=== PATIENT | male | born 1955 | race Caucasian/White ===

== ENCOUNTER 2016-10-17 05:09 | Inpatient (IN) | payer OTHER ==
[2016-10-17] VITALS (10 sets, daily range): BP systolic 139–162; BP diastolic 71–87; PULSE 75–80; RESP 16–19; TEMP 97.9; Ht 167.6 cm; Wt 90.4 kg
[~2016-10-17] VITALS: Ht 167.6 cm; Wt 90.4 kg
[~2016-10-17 05:09] MED LIST: ASPI81TA3 PO; ATOR20TA65 PO; BENA40TA54 PO; GABA600T PO; HC30CR25 TOP; HYDR-902 PO; INSU100C3 SQ; LANT3I SC; METF-406 PO; METO-448 PO; PRED20TA PO
[2016-10-17] MEDS ORDERED: morphine 4 MG/ML VIAL IV STA (05:24)
[2016-10-17] MEDS ORDERED: SOD CHLORIDE 0.9% 500 ML IV STA (05:24)
[2016-10-17] MEDS ORDERED: ONDANSETRON 4 MG INJ IV STA (05:24)
--- NOTE | 2016-10-17 05:53 | RADRPT ---
PROCEDURE: XR Chest. CLINICAL INDICATION: Abdominal pain TECHNIQUE: A single AP view of the chest was obtained. COMPARISON: Chest x-ray dated 02/16/2016 FINDINGS: Lung volumes are low with compressive changes and vascular crowding. No focal airspace opacity, pleu ral effusion or pneumothorax is seen. The cardiomediastinal silhouette is on the enlarged. Calcifi cations are seen within the aortic arch. The osseous structures demonstrate a chronic Hill-Sachs de formity of the left humerus. IMPRESSION: 1. Prominent pulmonary vascular markings, at least partially related to low lung volumes. Mild pul monary vascular congestion is not excluded. Overall, no significant interval change given respirato ry variation. 2. Mild cardiomegaly and aortic atherosclerosis. RPTAT: HH .Alicia Garcia MD, MD Date Time Electronically viewed and signed by .Alicia Garcia MD, on 10/17/2016 05:53 .G/
[2016-10-17 06:16] LABS: ADD SCAN DIFF NO
[2016-10-17] MEDS ORDERED: NITROGLYCERIN 2% 1 GM OINT PKT TD STA (06:21)
[2016-10-17] MEDS ORDERED: ASPIRIN 81 MG TAB PO STA (06:21)
[2016-10-17 06:25] LABS: BASOPHIL # 0.1 10^3/ul (0.0-0.1); BASOPHILS % 0.8 % (0.0-2.0); EOSINOPHILS # 0.1 10^3/ul (0.0-0.5); EOSINOPHILS % 1.2 % (0.0-7.0); HEMATOCRIT 44.5 % (42.0-52.0); HEMOGLOBIN 14.9 g/dl (14.0-18.0); LYMPHOCYTES # 2.2 10^3/ul (0.8-2.9); LYMPHOCYTES % 28.5 % (15.0-51.0); MEAN CORPUSCULAR HEMOGLOBIN 31.2 pg (29.0-33.0); MEAN CORPUSCULAR HGB CONC 33.5 g/dl (32.0-37.0); MEAN CORPUSCULAR VOLUME 93.3 fl (82.0-101.0); MEAN PLATELET VOLUME 11.2 fl (7.4-10.4); MONOCYTE # 0.6 10^3/ul (0.3-0.9); NEUTROPHIL # 4.9 10^3/ul (1.6-7.5); NEUTROPHILS % 62.1 % (39.0-77.0); PLATELET COUNT 221 10^3/UL (140-415); RED BLOOD COUNT 4.77 10^6/ul (4.70-6.10); RED CELL DISTRIBUTION WIDTH 12.3 % (11.5-14.5); WHITE BLOOD COUNT 7.8 10^3/ul (4.8-10.8)
[2016-10-17 06:28] LABS: ALBUMIN 3.7 g/dl (3.3-4.9); CHLORIDE 104 mmol/L (97-110)
[2016-10-17 06:29] LABS: SODIUM 142 mmol/L (135-144)
[2016-10-17] MEDS ORDERED: NITROGLYCERIN (SL) 0.4 MG TAB SL PRN ×2 (06:30→11:00)
[2016-10-17 06:31] LABS: ALBUMIN/GLOBULIN RATIO 0.97; ALKALINE PHOSPHATASE 93 IU/L (42-121); ANION GAP 15 (8-16); ASPARTATE AMINO TRANSFERASE 23 IU/L (15-46); BILIRUBIN,INDIRECT 0.2 mg/dl (0-1.1); BILIRUBIN,TOTAL 0.2 mg/dl (0.2-1.3); CARBON DIOXIDE 27 mmol/L (21-31); CREATININE 0.92 mg/dl (0.61-1.24); TOTAL PROTEIN 7.5 g/dl (6.1-8.1)
[2016-10-17 06:32] LABS: ALANINE AMINOTRANSFERASE 35 IU/L (13-69); BLOOD UREA NITROGEN 23 mg/dl (7-20); CALCIUM 9.5 mg/dl (8.4-10.2); GLUCOSE 145 mg/dl (70-220)
--- NOTE | 2016-10-17 06:37 | RADRPT ---
PROCEDURE: CT ABDOMEN/PELVIS WITHOUT CONTRAST CLINICAL INDICATION: 60-year-old male with abdominal pain. TECHNIQUE: The study was performed utilizing a GE Sococopeed VCT 64-slice CT scanner. Direct axia l sections were obtained through the abdomen and pelvis without the use of intravenous contrast mate rial. Sagittal and coronal reformations were obtained. Automated exposure control and iterative luis a nstruction techniques were utilized for this examination. [facility] CTD/vol = 15.0 mGy; Total Exam DLP = 996.4 mGy-cm. COMPARISON: None. FINDINGS: Cardiomegaly is noted. Dense coronary artery calcifications are visualized. There is no evidence f or significant pleural effusion. The liver has a normal size and contour. There is a small punctat e peripheral right hepatic 3 mm calcific density on axial image 3-48. No intrahepatic nor extrahepat ic biliary ductal dilatation is seen. The gallbladder demonstrates no wall thickening nor pericholec ystic fluid. No biliary stones are evident. The pancreas is without areas of abnormal attenuation. The spleen is identified and has a normal size without abnormal density. The adrenal glands are unre markable. The kidneys have a lobular appearance bilaterally but without focal areas of abnormal dens ity. No hydroureteronephrosis nor nephroureterolithiasis is evident. The urinary bladder contains ur ine. There is a small umbilical hernia with an opening of 15 x 16 mm containing fat. There is mild r etained stool throughout the colon without gross bowel obstruction. The appendix is visualized and is without abnormal thickening or surrounding inflammatory reaction. There is no significant pelvic free fluid. There are minimal bilateral inguinal hernias containing fat. The aortoiliac vessels are diffusely calcified but without aneurysmal dilatation. There are bilateral L5 pars interarticularis defects. There is minimal anterolisthesis of L5 on S1 with mild diffuse disk bulge resulting in mo derate right and mild left foraminal stenosis. IMPRESSION: 1. Cardiomegaly with extensive coronary artery calcifications. 2. No CT evidence for obstructive uropathy or renal calculi. 3. Small umbilical hernia containing fat. 4. Mild retained stool without obstruction. 5. No CT evidence for appendicitis. 6. Minimal bilateral inguinal hernias containing fat. 7. Minimal L5-S1 spondylolisthesis. .Truong Reich MD, MD Date Time Electronically viewed and signed by .Truong Reich MD, MD on 10/17/2016 06:37 .M/
[2016-10-17 07:02] LABS: TROPONIN-I < 0.012 ng/ml (0.00-0.12)
[2016-10-17] MEDS ORDERED: ONDANSETRON 4 MG INJ IV PRN ×2 (08:00→11:00)
[2016-10-17] MEDS ORDERED: ACETAMINOPHEN 325 MG TAB PO PRN ×2 (08:00→11:00)
--- NOTE | 2016-10-17 08:48 | ERA ---
ER Documentation Chief Complaint Date/Time DATE: 10/17/16 TIME: 08:46 Chief Complaint CP RADIATING TO LEFT SIDE SHOULDER AND FLANK X 3 DAYS +SOB HPI Patient is a 60-year-old male with coronary disease, hypertension, and diabetes who presents with chest pain. He has left-sided chest pain and back pain over the past 3 days. The pain comes and goes and is sharp in nature. He has had no treatment as of yet. Upon review of old medical records the patient has multiple visits to the ER for various complaints. ROS All systems reviewed and are negative except as per history of present illness. Medications Home Meds Active Scripts Metoprolol Tartrate* (Lopressor*) 25 Mg Tab, 25 MG PO BID for 30 Days, #30 TAB 2 Refills Prov:WISAM QUEEN MD 08/14/16 Atorvastatin Calcium (Atorvastatin Calcium) 20 Mg Tablet, 20 MG PO HS for 30 Days, #30 TAB 1 Refill Prov:WISAM QUEEN MD 08/14/16 Prednisone* (Prednisone*) 20 Mg Tab, 60 MG PO DAILY for 5 Days, TAB Prov:RYLAN NOBLE DO 06/05/16 Gabapentin* (Neurontin*) 600 Mg Tablet, 600 MG PO BID, #60 TAB Prov:RYLAN NOBLE DO 06/05/16 Hydrocodone/Acetaminophen ([place] 10-325 Tablet) 1 Each Tablet, 1 TAB PO Q6H Y for PAIN, #20 TAB Prov:RYLAN NOBLE DO 06/05/16 Reported Medications Insulin Aspart (Novolog) 100 Unit/1 Ml Cartridge, 10 UNIT SQ BEFORE BREAKFAST 06/05/16 Benazepril Hcl* (Lotensin*) 40 Mg Tablet, 40 MG PO DAILY 12/16/13 Aspirin (Aspirin) 81 Mg Chew, 81 MG PO DAILY 12/16/13 Hydrocortisone* Topical (Hydrocortisone* Topical) 1 Applic Cr, 28.35 APPLIC TOP BID 12/16/13 Metformin Hcl* (Metformin Hcl* ER) 1,000 Mg Tab.er.24, 1000 MG PO BID 12/16/13 Insulin Glargine* (Lantus*) 100 Unit/Ml Soln, 55 UNIT SC DAILY 12/16/13 Allergies Allergies: Coded Allergies: No Known Allergy (Unverified , 08/14/16) PMhx/Soc History of Surgery: No Anesthesia Reaction: No Hx Neurological Disorder: Yes (DIABETIC NEUROPATHY) Hx Respiratory Disorders: Yes (ASTHMA) Hx Cardiac Disorders: Yes (HTN,HIGH CHOL) Hx Psychiatric Problems: No Hx Miscellaneous Medical Probl: Yes (DM, morbid obesity, R foot ulcer. ) Hx Alcohol Use: Yes Hx Substance Use: No Hx Tobacco Use: No Smoking Status: Never smoker FmHx Family History: No coronary disease Physical Exam Vitals Vital Signs Date Time Temp Pulse Resp B/P Pulse Ox O2 Delivery O2 Flow Rate FiO2 10/17/16 08:44 97.9 82 148/84 98 2.0 10/17/16 08:00 97.6 82 18 123/83 Nasal Cannula 2.0 10/17/16 07:43 81 18 153/85 95 Nasal Cannula 2.0 10/17/16 07:30 77 17 143/85 98 10/17/16 06:58 80 19 156/86 100 Nasal Cannula 2.0 10/17/16 05:12 97.0 89 20 140/76 99 Physical Exam Const: No acute distress Head: Atraumatic Eyes: Normal Conjunctiva ENT: Normal External Ears, Nose and Mouth. Neck: Full range of motion..~ No meningismus. Resp: Clear to auscultation bilaterally Cardio: Regular rate and rhythm, no murmurs Abd: Soft, non tender, non distended. Normal bowel sounds Skin: No petechiae or rashes Back: No midline or flank tenderness Ext: No cyanosis, or edema Neur: Awake and alert Psych: Normal Mood and Affect Result Diagram: 10/17/1652610/17/16526 Results 24 hrs Laboratory Tests Test 10/17/16 05:27 Alanine Aminotransferase (ALT/SGPT) 35IU/L Albumin 3.7g/dl Albumin/Globulin Ratio 0.97 Alkaline Phosphatase 93IU/L Anion Gap 15 Aspartate Amino Transf (AST/SGOT) 23IU/L Basophils # 0.110^3/ul Basophils % 0.8% Blood Urea Nitrogen 23mg/dl Calcium Level 9.5mg/dl Carbon Dioxide Level 27mmol/L Chloride Level 104mmol/L Creatinine 0.92mg/dl Direct Bilirubin 0.00mg/dl Eosinophils # 0.110^3/ul Eosinophils % 1.2% Globulin 3.80g/dl Glucose Level 145mg/dl Hematocrit 44.5% Hemoglobin 14.9g/dl Indirect Bilirubin 0.2mg/dl Lipase 211U/L Lymphocytes # 2.210^3/ul Lymphocytes % 28.5% Mean Corpuscular Hemoglobin 31.2pg Mean Corpuscular Hemoglobin Concent 33.5g/dl Mean Corpuscular Volume 93.3fl Mean Platelet Volume 11.2fl Monocytes # 0.610^3/ul Monocytes % 7.0% Neutrophils # 4.910^3/ul Neutrophils % 62.1% Nucleated Red Blood Cells # 0.010^3/ul Nucleated Red Blood Cells % 0.0/100WBC Platelet Count 53718^3/UL Potassium Level 4.0mmol/L Red Blood Count 4.7710^6/ul Red Cell Distribution Width 12.3% Sodium Level 142mmol/L Total Bilirubin 0.2mg/dl Total Protein 7.5g/dl Troponin I < 0.012ng/ml White Blood Count 7.810^3/ul Current Medications Medications (Trade) Dose Ordered Sig/Patricia Route PRN Reason Start Time Stop Time Status Last Admin Dose Admin Sodium Chloride (NS) 500 ml @ 500 mls/hr Q1H STAT IV 10/17/16 05:24 10/17/16 06:23 DC 10/17/16 05:39 Morphine Sulfate (morphine) 4 mg ONCE STAT IV 10/17/16 05:24 10/17/16 05:26 DC 10/17/16 05:38 Ondansetron HCl (Zofran Inj) 4 mg ONCE STAT IV 10/17/16 05:24 10/17/16 05:26 DC 10/17/16 05:38 Aspirin (Aspirin) 162 mg ONCE STAT PO 10/17/16 06:21 10/17/16 06:23 DC 10/17/16 06:57 Nitroglycerin (Nitroglycerin 2% Oint) 1 inch ONCE STAT TD 10/17/16 06:21 10/17/16 06:23 DC 10/17/16 06:58 Nitroglycerin (Nitroglycerin (Sl Tab) 0.4 Mg) 1 tab Q5M UP TO 3 DOSES PRN SL CHEST PAIN 10/17/16 06:30 10/17/16 07:39 Ondansetron HCl (Zofran Inj) 4 mg ER BRIDGE PRN IV NAUSEA AND/OR VOMITING 10/17/16 08:00 10/18/16 07:59 Acetaminophen (Tylenol Tab) 650 mg ER BRIDGE PRN PO MILD PAIN/FEVER 10/17/16 08:00 10/18/16 07:59 Procedures/MDM EKG #1 read by me: Rate/Rhythm: Regular rate and rhythm at a normal rate Intervals: Normal Impression: No evidence of ischemia or arrhythmia EKG #2 pending at this time PROCEDURE: XR Chest. CLINICAL INDICATION: Abdominal pain TECHNIQUE: A single AP view of the chest was obtained. COMPARISON: Chest x-ray dated 02/16/2016 FINDINGS: Lung volumes are low with compressive changes and vascular crowding. No focal airspace opacity, pleural effusion or pneumothorax is seen. The cardiomediastinal silhouette is on the enlarged. Calcifications are seen within the aortic arch. The osseous structures demonstrate a chronic Hill- Sachs deformity of the left humerus. IMPRESSION: 1. Prominent pulmonary vascular markings, at least partially related to low lung volumes. Mild pulmonary vascular congestion is not excluded. Overall, no significant interval change given respiratory variation. 2. Mild cardiomegaly and aortic atherosclerosis. RPTAT: HH .Alicia Garcia MD, MD Date Time Electronically viewed and signed by .Alicia Garcia MD, MD on 10/17/2016 05 :53 CT scan of the abdomen and pelvis negative for acute process per radiology. Patient is a 60-year-old male with multiple cardiac risk factors who presents with chest pain. I am concerned for possible acute coronary syndrome. The patient was given aspirin nitroglycerin. At this point I doubt pneumonia, pneumothorax, pulmonary embolism, or aortic dissection. I spoke with Dr. Adame from the panel team for admission to the panel team as the patient has preferred [employer] insurance. Departure Diagnosis: Primary Impression: Chest pain Qualified Code: R07.9 - Chest pain, unspecified type Condition: LETTY Ellison MD Oct 17, 2016 08:48
[2016-10-17] MEDS ORDERED: NACL 0.9% 3 ML SYG IV SCH (11:00)
[2016-10-17] MEDS ORDERED: hydrALAzine 20 MG INJ IV PRN (11:00)
[2016-10-17] MEDS ORDERED: LORAZEPAM 2 MG INJ IV PRN (11:00)
[2016-10-17] MEDS ORDERED: MAGNESIUM HYDROXIDE 30ML CUP PO PRN (11:00)
[2016-10-17] MEDS ORDERED: NA PHOSPHATE/BIPHOS 133 ML ENEMA PR PRN (11:00)
[2016-10-17] MEDS ORDERED: HYDROCODONE/APAP (5/325) TAB PO PRN (11:00)
[2016-10-17] MEDS ORDERED: ALBUTEROL/IPRATROPIUM (NEB) 3 ML AMP HHN PRN (11:00)
[2016-10-17] MEDS ORDERED: DOCUSATE SODIUM 100 MG CAP PO PRN (11:00)
[2016-10-17] MEDS: [UNRECOGNIZED DRUG - REMARK] XX SCH ×2 (11:30→19:30)
[2016-10-17] MEDS: [UNRECOGNIZED DRUG - REMARK] XX SCH ×2 (11:30→19:30)
[2016-10-17] MEDS: morphine 2 MG INJ IV PRN ×3 (11:49→23:38)
[2016-10-17] MEDS ORDERED: GLUCAGON 1 MG INJ IM PRN (12:00)
[2016-10-17] MEDS ORDERED: GLUCOSE GEL 15 GRAM TUBE PO PRN ×2 (12:00)
[2016-10-17] MEDS ORDERED: DEXTROSE 50% 50 ML SYRINGE IV PRN ×2 (12:00)
[2016-10-17] MEDS ORDERED: GLUCOSE GEL 15 GRAM TUBE BUCCAL PRN (12:00)
[2016-10-17 12:04] LABS: CREATINE KINASE 120 IU/L (23-200)
--- NOTE | 2016-10-17 12:10 | HP ---
DATE OF ADMISSION: 10/17/2016 CHIEF COMPLAINT: Chest pain. HISTORY OF PRESENT ILLNESS: A 60-year-old male with past medical history of type 2 diabetes on insu deepthi at home, asthma, high cholesterol, recent stroke 3 months ago, obesity, and hypertension who pre sents with chest pain that has been going on for the last 3 days. He says it has been radiating to his upper back. No dizziness or headaches or loss of consciousness. He has had some mild shortness of breath, but no fevers or chills, no nausea, vomiting, no upper or lower GI bleeding. He has had some mild constipation, but no diarrhea. No abdominal pain. The patient was last here at our [facility] from 08/13/2016 to 08/14/2016. He was treated for acute ischemic stroke at the time. He denies any prior history of any heart attack. PAST MEDICAL HISTORY: As stated above. ALLERGIES: NO KNOWN DRUG ALLERGIES. MEDICATIONS AT HOME: Include: 1. Atorvastatin 20 mg at bedtime. 2. Lotensin 40 mg daily. 3. Lopressor 25 mg b.i.d. 3. Aspirin 81 mg daily. 4. Gabapentin 600 mg b.i.d. 5. [place] 10/325 q.6h. p.r.n. 7. NovoLog 10 units subq before breakfast. 8. Lantus 55 units subq daily. 9. Metformin 1000 mg b.i.d. 10. Hydrocortisone topical 28.35 apply topical b.i.d. PAST SURGICAL HISTORY: He had a hernia repair in the past and diabetic foot ulcer surgery in the [facility]. FAMILY HISTORY: Noncontributory. SOCIAL HISTORY: Quit smoking 14 years ago and quit drinking 1 year ago. PHYSICAL EXAMINATION: VITAL SIGNS: Stable except his blood pressure is 123 to 162 systolic over 83 to 87 diastolic, satur ating 100% on room air. GENERAL: The patient is lying in bed, answering questions appropriately, in mild distress. HEENT: Pupils equal, round, reactive to light. Extraocular muscles intact. NECK: Supple, no thyromegaly. LUNGS: Clear to auscultation bilaterally. No wheezes. CARDIOVASCULAR: S1 and S2 heard. No rubs, murmurs or gallops. ABDOMEN: Slightly obese, but otherwise soft, nontender, nondistended. Normal bowel sounds. No lynn ound or guarding. MUSCULOSKELETAL: No lower extremity edema bilaterally. NEUROLOGIC: No focal deficits. LABORATORIES: CBC is completely normal. Comprehensive metabolic panel was normal. Troponin level x1 is negative. Lipase is normal. CT abdomen and pelvis was performed and shows cardiomegaly with extensive coronary artery calcificat ions, but no evidence for obstructive uropathy or renal calculi. Small umbilical hernia containing f at. Mild retained stool without obstruction. No appendicitis. Chest x-ray: Prominent pulmonary vascular markings at least partially related to low lung volumes. Pulmonary vascular congestion is not excluded. EKG showed normal sinus rhythm, no signs of any ST changes or T-wave inversions. ASSESSMENT AND PLAN: This is a 60-year-old male with prior history of stroke, diabetes type 2, and hypertension who presents with chest pain; rule out acute coronary syndrome. 1. Chest pain. Admit to the telemetry floor, put him on aspirin, morphine, oxygen, and nitrates. T rend his troponins, get a 2D echocardiogram as well. Check a TSH, A1c, lipid panel. Check an echoc ardiogram as well. 2. Type 2 diabetes. Continue his home insulin regimen. Check an A1c and put him on sliding scale insulin. 3. History of high cholesterol. Check his cholesterol and ____ put him back on his statin medicine s. 4. Essential hypertension. Blood pressure stable. Continue current cardiac medications. 5. History of asthma. DuoNeb p.r.n. ____ shortness of breath. 6. Gastrointestinal prophylaxis. H2 spencer. 7. Deep venous thrombosis prophylaxis. Heparin subcu. Dictated By: FOX HAND Conf#: [id number] DID#: [id number]
[2016-10-17 12:13] LABS: CK-MB 2.62 ng/ml (0.0-2.4); TROPONIN-I < 0.012 ng/ml (0.00-0.12)
[2016-10-17] MEDS: SOD CHLORIDE 0.45% 1,000 ML IV SCH (13:09)
[2016-10-17] MEDS: INSULIN ASPART [NOVOLOG] 3 ML PEN SC SCH ×4 (13:13→20:40)
[2016-10-17 13:56] LABS: ADD UMIC YES; URINE BILIRUBIN (Dip) NEGATIVE (NEGATIVE); URINE BLOOD (Dip) NEGATIVE (NEGATIVE); URINE COLOR LT. YELLOW (YELLOW); URINE KETONES (Dip) NEGATIVE (NEGATIVE); URINE LEUKOCYTE ESTERASE (Dip) NEGATIVE (NEGATIVE); URINE NITRITE (Dip) NEGATIVE (NEGATIVE); URINE TOTAL PROTEIN (Dip) 2+ (NEGATIVE); URINE UROBILINOGEN (Dip) 0.2 E.U./dL (0.1-1.0)
[2016-10-17 14:12] LABS: URINE RBCS 0-2 /HPF (0)
[2016-10-17 17:04] LABS: CREATINE KINASE 115 IU/L (23-200)
[2016-10-17 17:18] LABS: CK-MB 2.78 ng/ml (0.0-2.4); TROPONIN-I < 0.012 ng/ml (0.00-0.12)
[2016-10-17] MEDS: FAMOTIDINE 20 MG TAB PO SCH (20:37)
[2016-10-17] MEDS: GABAPENTIN 300 MG CAP PO SCH (20:37)
[2016-10-17] MEDS: METOPROLOL 25 MG TAB PO SCH (20:38)
[2016-10-17] MEDS: HEPARIN 5,000 UNIT/0.5 ML SYG SC SCH (20:39)
[2016-10-17] MEDS ORDERED: ATORVASTATIN 20 MG TAB PO SCH (21:00)
[2016-10-17] MEDS ORDERED: HYDROCORTISONE 2.5% 20 GM CR TOP SCH (21:00)
[2016-10-18 00:45] VITALS: PULSE 73
[2016-10-18] MEDS ORDERED: ACCUCHECK XX SCH (02:00)
[2016-10-18] MEDS: SOD CHLORIDE 0.45% 1,000 ML IV SCH ×2 (02:03→13:22)
[2016-10-18] MEDS: [UNRECOGNIZED DRUG - REMARK] XX SCH (03:30)
[2016-10-18] MEDS: [UNRECOGNIZED DRUG - REMARK] XX SCH ×2 (03:30→11:27)
[2016-10-18 04:06] VITALS: BP 139/74; PULSE 75; RESP 18
[2016-10-18] MEDS ORDERED: INSULIN ASPART 10 UNIT SQ SCH (07:00)
[2016-10-18 07:26] VITALS: BP 134/65; RESP 18
[2016-10-18 07:32] LABS: ADD SCAN DIFF NO
[2016-10-18 07:40] LABS: BASOPHIL # 0.1 10^3/ul (0.0-0.1); BASOPHILS % 0.9 % (0.0-2.0); EOSINOPHILS # 0.1 10^3/ul (0.0-0.5); EOSINOPHILS % 1.2 % (0.0-7.0); HEMATOCRIT 44.3 % (42.0-52.0); HEMOGLOBIN 14.8 g/dl (14.0-18.0); LYMPHOCYTES # 1.7 10^3/ul (0.8-2.9); LYMPHOCYTES % 20.4 % (15.0-51.0); MEAN CORPUSCULAR HEMOGLOBIN 31.2 pg (29.0-33.0); MEAN CORPUSCULAR HGB CONC 33.4 g/dl (32.0-37.0); MEAN CORPUSCULAR VOLUME 93.5 fl (82.0-101.0); MEAN PLATELET VOLUME 11.2 fl (7.4-10.4); MONOCYTE # 0.6 10^3/ul (0.3-0.9); MONOCYTES % 7.7 % (0.0-11.0); NEUTROPHIL # 5.6 10^3/ul (1.6-7.5); NEUTROPHILS % 69.6 % (39.0-77.0); PLATELET COUNT 208 10^3/UL (140-415); RED BLOOD COUNT 4.74 10^6/ul (4.70-6.10); RED CELL DISTRIBUTION WIDTH 12.1 % (11.5-14.5); WHITE BLOOD COUNT 8.1 10^3/ul (4.8-10.8)
[2016-10-18 07:54] LABS: POTASSIUM 4.3 mmol/L (3.5-5.1)
[2016-10-18 07:57] LABS: CREATININE 0.91 mg/dl (0.61-1.24)
[2016-10-18] MEDS: INSULIN ASPART [NOVOLOG] 3 ML PEN SC SCH ×3 (07:57→12:23)
[2016-10-18 07:58] LABS: CALCIUM 8.5 mg/dl (8.4-10.2); MAGNESIUM 1.6 mg/dl (1.7-2.5); PHOSPHORUS 3.6 mg/dl (2.5-4.9)
[2016-10-18] MEDS: morphine 2 MG INJ IV PRN (07:59)
[2016-10-18] MEDS ORDERED: INSULIN GLARGINE [LANtus] 3 ML PEN SC SCH (08:00)
[2016-10-18] MEDS: GABAPENTIN 300 MG CAP PO SCH (08:01)
[2016-10-18] MEDS: METOPROLOL 25 MG TAB PO SCH (08:01)
[2016-10-18] MEDS: FAMOTIDINE 20 MG TAB PO SCH (08:01)
[2016-10-18] MEDS: HEPARIN 5,000 UNIT/0.5 ML SYG SC SCH (08:03)
[2016-10-18 08:08] VITALS: PULSE 74
[2016-10-18 08:20] LABS: THYROID STIMULATING HORMONE 3.49 MIU/L (0.465-4.680)
[2016-10-18] MEDS ORDERED: ASPIRIN (EC) 325 MG TAB PO SCH (09:00)
[2016-10-18] MEDS ORDERED: BENAZEPRIL 40 MG TAB PO SCH (09:00)
--- NOTE | 2016-10-18 10:57 | PDOCDIS ---
Discharge Instructions CONDITION Patient Condition: Stable HOME CARE INSTRUCTIONS: Special Diet: carb controlled diet ACTIVITY: Activity Restrictions: Slowly Increase Activity FOLLOW UP/APPOINTMENTS Appointments Take your medications, see your clinic doctor in 1 week. FOX JAVED Oct 18, 2016 10:57
[2016-10-18] MEDS ORDERED: ATOR20TA65 PO (11:04)
[2016-10-18] MEDS ORDERED: INSU100C3 SQ (11:04)
[2016-10-18] MEDS ORDERED: INSULIN ASPART [NOVOLOG] 3 ML PEN SC SCH (11:20)
[2016-10-18 11:24] VITALS: BP 133/66; RESP 18
--- NOTE | 2016-10-18 11:25 | DS ---
DATE OF ADMISSION: 10/17/2016 DATE OF DISCHARGE: 10/18/2016 HOSPITAL COURSE: The patient came in with chest pain symptoms. He was admitted to telemetry floor. He ruled out for acute coronary syndrome as EKG showed no signs of any acute infarcts, and his tro ponins were negative x3. Over the course of his hospital stay, his hemoglobin A1c was found to be 1 0.0. He does have a history of type 2 diabetes. He was seen by senior health educator and recommendatio ns were made for the insulin regimen. He also was found with elevated triglycerides and cholesterol levels and adjustments were made to his Lipitor. Over the course of hospital stay, his chest sympt oms improved. He was able to ambulate and tolerate a p.o. diet and he was given instructions about how to better control his sugars and he will be discharged home today in an improved condition. He will get an echocardiogram before he goes. DISCHARGE MEDICATIONS: He will be sent with the following medications: 1. Aspart 15 units subq before meals. 2. Aspirin 81 mg daily. 3. Lotensin 40 mg daily. 4. Gabapentin 600 mg b.i.d. 5. [place] 10/325 q.6h. p.r.n. 6. Hydrocortisone topical 28.35 apply topically b.i.d. 7. Lantus 55 units subq daily. 8. Metformin 1000 mg b.i.d. 9. Lopressor 25 mg b.i.d. 10. Atorvastatin 40 mg at bedtime. He will need followup with primary care doctor in the clinic in the next 1 to 2 weeks. FINAL DIAGNOSES: 1. Chest pain, rule out for acute coronary syndrome. Echocardiogram results pending. 2. History of type 2 diabetes. A1c at 10.0. Adjustments made to his insulin regimen. 3. History of asthma. 4. High cholesterol. 5. Recent stroke 3 months ago. 6. History of obesity. 7. Essential hypertension. Time spent discharging patient 40 minutes. Dictated By: FOX HAND Conf#: [id number] DID#: [id number]
[2016-10-18 12:08] VITALS: PULSE 72
[2016-10-18] MEDS ORDERED: MAGNESIUM SULFATE 1 GM/D5W 100 ML IVPB ONE (13:00)
--- NOTE | 2016-10-18 16:01 | RADRPT ---
Echocardiogram Report Patient Name: NITIN KHAN Gender: Male Date: 1955 Study Date: 18-Oct-2016 Ceo & Founder: Federico Hedrick [facility] Location: 512A Ref. Physician: FOX JAVED Quality: Good Procedures: Transthoracic echocardiogram with complete 2D, M-Mode, and doppler examination. Indications: Evaluate Left Ventricular function. Chest Pain. 2D/M Mode Doppler Measurement Value Normal Ranges Measurement Value Normal Ranges LVIDd 2D 4.4 3.5 - 5.6 cm AV Peak Steven 1.2 m/sec LVIDs 2D 2.2 2.1 - 4.1 cm AV Peak PG 6.2 mmHg LVPWd 2D 1.2 0.6 - 1.1 cm LVOT Peak Steven 1.0 m/sec IVSd 2D 1.3 0.6 - 1.1 cm LVOT Peak PG 3.9 mmHg AoR Diam 2D 3.3 2.0 - 3.7 cm MV E Peak Steven 0.6 m/sec EDV 2D 86.1 cm3 MV A Peak Steven 1.0 m/sec ESV 2D 11.3 cm3 MV E/A 0.6 LA Dimen 2D 3.7 2.3 - 4.0 cm MV Decel Time 200 msec MV Decel [place] 3 MV E/A 0.6 TR Peak Steven 2.2 m/sec TR Peak PG 19.1 mmHg RVSP 22.0 mmHg Findings Left Ventricle: Normal left ventricular systolic function. Normal left ventricular cavity size. Normal left ventricular wall thickness. Ejection fraction is visually estimated at 65 %. Tissue Doppler/Mitral Doppler indices are consistent with impaired relaxation (Stage I diastolic dysfunction). Right Ventricle: Normal right ventricular size. Normal right ventricular systolic function. Left Atrium: The left atrium is normal in size. Right Atrium: The right atrium is normal in size. Mitral Valve: Normal appearance and function of the mitral valve with trace physiologic regurgitation. Aortic Valve: No significant aortic stenosis or insufficiency. Aortic cusps appear mildly calcified. Tricuspid Valve: Normal appearance of the tricuspid valve. Estimated peak PA systolic pressure 22 mmHg. There is trace tricuspid regurgitation. Pulmonic Valve: Normal pulmonic valve appearance. Pericardium: Normal pericardium with no significant pericardial effusion. Aorta: Normal aortic root. IVC: Normal size and normal respiratory collapse consistent with normal right atrial pressure. Conclusions 1.Normal left ventricular systolic function. Normal left ventricular cavity size. Normal left ventricular wall thickness. Ejection fraction is visually estimated at 65 %. Tissue Doppler/Mitral Doppler indices are consistent with impaired relaxation (Stage I diastolic dysfunction). 2.Normal right ventricular size. Normal right ventricular systolic function. 3.The left atrium is normal in size. 4.The right atrium is normal in size. 5.No significant valvular stenosis or regurgitation seen. 6.Normal pericardium with no significant pericardial effusion. Electronically Signed By: Eddi Taylor 18-Oct-2016 16:00:16 -0800 Patient Name: NITIN KHAN Study Date: 18-Oct-2016 [id number]
== END 2016-10-18 15:00 | disposition home or self-care (01) | DRG 313 ==
LOC: E/R 05:09 → TEL 07:43
PROVIDERS: ADMIT Internal Medicine; ATTEND Internal Medicine
DX: R07.9 Chest pain, unspecified (principal); I25.10 Atherosclerotic heart disease of native coronary artery without angina pectoris; E11.42 Type 2 diabetes mellitus with diabetic polyneuropathy; E78.00 Pure hypercholesterolemia, unspecified; I10 Essential (primary) hypertension; J45.909 Unspecified asthma, uncomplicated; E66.9 Obesity, unspecified; Z68.32 Body mass index [BMI] 32.0-32.9, adult; Z86.73 Personal history of transient ischemic attack (TIA), and cerebral infarction without residual deficits; Z87.891 Personal history of nicotine dependence; Z79.4 Long term (current) use of insulin; Z79.82 Long term (current) use of aspirin
CPT/HCPCS: 36415; 71010; 74176; 80048; 80053; 80061; 81001; 81003; 82550; 82553; 82962; 83036; 83690; 83735; 84100; 84439; 84443; 84484; 85025; 87086; 93005; 93306; 96374; 96375; J1815; J2270; J2405; J3475; J7040

== ENCOUNTER 2016-10-20 08:11 | Inpatient (IN) | payer OTHER ==
[~2016-10-20] VITALS: Ht 167.6 cm; Wt 92.0 kg
[2016-10-20] VITALS (7 sets, daily range): BP systolic 120–165; BP diastolic 65–79; PULSE 77–83; RESP 18; TEMP 97.3; Ht 167.6 cm; Wt 92.0 kg
[~2016-10-20 08:11] MED LIST changes: -PRED20TA PO
[2016-10-20] MEDS ORDERED: morphine 4 MG/ML VIAL IV STA (09:02)
[2016-10-20 09:07] LABS: ADD SCAN DIFF NO
[2016-10-20] MEDS ORDERED: SOD CHLORIDE 0.9% 100 ML ONE (09:13)
[2016-10-20] MEDS ORDERED: IODIXANOL LOCM 100 ML BTL ONE (09:13)
[2016-10-20] MEDS ORDERED: IODIXANOL LOCM 50 ML BTL ONE (09:14)
[2016-10-20 09:15] LABS: BASOPHIL # 0.1 10^3/ul (0.0-0.1); BASOPHILS % 0.7 % (0.0-2.0); EOSINOPHILS # 0.1 10^3/ul (0.0-0.5); EOSINOPHILS % 1.1 % (0.0-7.0); HEMATOCRIT 43.2 % (42.0-52.0); HEMOGLOBIN 14.6 g/dl (14.0-18.0); LYMPHOCYTES # 2.1 10^3/ul (0.8-2.9); LYMPHOCYTES % 22.6 % (15.0-51.0); MEAN CORPUSCULAR HEMOGLOBIN 31.5 pg (29.0-33.0); MEAN CORPUSCULAR HGB CONC 33.8 g/dl (32.0-37.0); MEAN CORPUSCULAR VOLUME 93.1 fl (82.0-101.0); MEAN PLATELET VOLUME 11.2 fl (7.4-10.4); MONOCYTE # 0.7 10^3/ul (0.3-0.9); NEUTROPHIL # 6.1 10^3/ul (1.6-7.5); NEUTROPHILS % 67.3 % (39.0-77.0); PLATELET COUNT 242 10^3/UL (140-415); RED BLOOD COUNT 4.64 10^6/ul (4.70-6.10); RED CELL DISTRIBUTION WIDTH 12.4 % (11.5-14.5); WHITE BLOOD COUNT 9.1 10^3/ul (4.8-10.8)
--- NOTE | 2016-10-20 09:17 | RADRPT ---
PROCEDURE: XR Chest. CLINICAL INDICATION: chest pain TECHNIQUE: Single frontal view of the chest was obtained COMPARISON: 10/17/2016 FINDINGS: There is mild left lower lobe linear atelectasis. The lungs are otherwise clear. The heart is normal in size. There is fullness of the right hilum, which may represent a dilated as cending thoracic aorta. There is no pleural effusion or pneumothorax. RPTAT: AA IMPRESSION: Possible dilated ascending thoracic aorta. Mild left lower lobe linear atelectasis. Further evaluation with a CT of the chest is recommended. .Johnny Aquino MD, Date Time Electronically viewed and signed by .Johnny Aquino MD, on 10/20/2016 09:17 .S/
[2016-10-20 09:26] LABS: CHLORIDE 106 mmol/L (97-110); SODIUM 141 mmol/L (135-144)
[2016-10-20 09:29] LABS: ANION GAP 19 (8-16); CARBON DIOXIDE 22 mmol/L (21-31); CREATININE 0.99 mg/dl (0.61-1.24)
[2016-10-20 09:30] LABS: BLOOD UREA NITROGEN 25 mg/dl (7-20); CALCIUM 9.7 mg/dl (8.4-10.2); GLUCOSE 210 mg/dl (70-220); INR 0.86; PROTIME 11.7 Sec (12.2-14.2); PT RATIO 0.9
[2016-10-20 09:31] LABS: PARTIAL THROMBOPLASTIN TIME 24.4 Sec (25.0-35.0)
[2016-10-20] MEDS ORDERED: CA GLUCONATE (GM) 10% 10ML INJ IV STA (09:41)
[2016-10-20] MEDS ORDERED: DEXTROSE 50% 50 ML SYRINGE IV STA (09:41)
[2016-10-20] MEDS ORDERED: INSULIN REGULAR, HUMAN 100 UNIT/1 ML 3ML VIAL IV STA (09:41)
[2016-10-20] MEDS ORDERED: NA POLYST SULFON 15 GM/60 ML BTL PO STA (09:41)
[2016-10-20] MEDS ORDERED: NA BICARBONATE 8.4% 50 ML SYG IV STA (09:41)
[2016-10-20 09:52] LABS: TROPONIN-I < 0.012 ng/ml (0.00-0.12)
[2016-10-20] MEDS ORDERED: GLUCOSE GEL 15 GRAM TUBE PO PRN ×4 (10:00→13:30)
[2016-10-20] MEDS ORDERED: GLUCOSE GEL 15 GRAM TUBE BUCCAL PRN ×2 (10:00→13:30)
[2016-10-20] MEDS ORDERED: GLUCAGON 1 MG INJ IM PRN ×2 (10:00→13:30)
[2016-10-20] MEDS ORDERED: DEXTROSE 50% 50 ML SYRINGE IV PRN ×4 (10:00→13:30)
--- NOTE | 2016-10-20 10:08 | RADRPT ---
PROCEDURE: CT angiogram of the chest with contrast. CLINICAL INDICATION: Chest pain, shortness of breath. TECHNIQUE: CT scan of the chest with contrast was performed on a multidetector high-resolution CT scan. The patient was scanned following the uncomplicated intravenous administration of 110 ml of V isipaque 320. Coronal and sagittal reformatted images were obtained from the axial source images. [facility] CT angiogram of the chest with contrast protocols were performed. The total exam CTDI equals 12.9 mGy and the total exam DLP equals 466.23 mGy-cm. One or more of the following dose reduction techniques were used: - Automated exposure control. - Adjustment of the mA and/or kV according to patient size. Use of iterative reconstruction technique. COMPARISON: None FINDINGS: There is mild atherosclerotic vascular disease of the thoracic and proximal abdominal ao rta without evidence of aneurysm or dissection. There is atherosclerotic vascular disease involving the origins of the celiac axis, SMA, great vessels and right left subclavian arteries. The pulmona ry outflow tract, right left main pulmonary arteries, right and left interlobar are and proximal int ersegmental pulmonary arteries are well enhanced without filling defects. Specifically no evidence of central pulmonary emboli. The heart is not mild to moderately enlarged. No evidence of pericard ial effusion. There is coronary artery disease present. No evidence of pleural effusion or pneumot horax. In the anterior right middle lobe is a 7 mm noncalcified pulmonary nodule. No other pulmona ry nodules. Interval follow up CT scan of the chest in 4 months is suggested for further evaluation . There is dependent lung atelectasis. The lungs are otherwise clear. No evidence of mediastinal hilar or axillary lymphadenopathy. Images of the upper abdomen are unremarkable. There is mild deg enerative changes of the thoracic spine. There are no acute osseous findings. There are no osteobl astic/osteolytic lesions. IMPRESSION: 1. No evidence of central pulmonary emboli. 2. Atherosclerotic vascular disease of the aorta but no aneurysm or dissection. No periaortic flui d collections. 3. Cardiomegaly and coronary artery disease. 4. In the anterior right middle lobe is a 7 mm noncalcified pulmonary nodule. No other pulmonary n odules or thoracic lymphadenopathy. Interval follow up CT scan of the chest in 4 months is suggeste d for further evaluation. RPTAT:AAJJ Mathew Maxwell Physician Date Time Electronically viewed and signed by Mathew Maxwell Physician on 10/20/2016 10:08 BM/
--- NOTE | 2016-10-20 10:52 | ERA ---
ER Documentation Chief Complaint Date/Time DATE: 10/20/16 TIME: 10:49 Chief Complaint CP SINCE LAST , RECENTLY DISCHARGED FROM [facility] W/ DX: DIABETIC FOOT ULCER HPI This is a 60-year-old male who presents to the emergency room with a chief complaint of chest pain. The patient states that his chest pain is intermittent in the centralized with radiation to his left arm and left back. He states that he was recently in the hospital where he had blood work done and he was discharged 2 days ago. He states his chest pain is come back and is worse than before. He describes the pain as achy and sharp pain with some pressure sensation. The patient denies any aggravating factors for his pain, but does state morphine helps relieve it. ROS All systems reviewed and are negative except as per history of present illness. Medications Home Meds Active Scripts Insulin Aspart (Novolog) 100 Unit/1 Ml Cartridge, 15 UNIT SQ BEFORE MEALS for 30 Days, 3 Refills Prov:FOX JAVED S. 10/18/16 Atorvastatin Calcium (Atorvastatin Calcium) 20 Mg Tablet, 40 MG PO HS for 30 Days, TAB 1 Refill Prov:FOX JAVED S. 10/18/16 Metoprolol Tartrate* (Lopressor*) 25 Mg Tab, 25 MG PO BID for 30 Days, #30 TAB 2 Refills Prov:WISAM QUEEN MD 08/14/16 Gabapentin* (Neurontin*) 600 Mg Tablet, 600 MG PO BID, #60 TAB Prov:RYLAN NOBLE DO 06/05/16 Hydrocodone/Acetaminophen ([place] 10-325 Tablet) 1 Each Tablet, 1 TAB PO Q6H Y for PAIN, #20 TAB Prov:RYLAN NOBLE DO 06/05/16 Reported Medications Benazepril Hcl* (Lotensin*) 40 Mg Tablet, 40 MG PO DAILY 12/16/13 Aspirin (Aspirin) 81 Mg Chew, 81 MG PO DAILY 12/16/13 Hydrocortisone* Topical (Hydrocortisone* Topical) 1 Applic Cr, 28.35 APPLIC TOP BID 12/16/13 Metformin Hcl* (Metformin Hcl* ER) 1,000 Mg Tab.er.24, 1000 MG PO BID 12/16/13 Insulin Glargine* (Lantus*) 100 Unit/Ml Soln, 55 UNIT SC DAILY 12/16/13 Discontinued Reported Medications Insulin Aspart (Novolog) 100 Unit/1 Ml Cartridge, 10 UNIT SQ BEFORE BREAKFAST 06/05/16 Discontinued Scripts Prednisone* (Prednisone*) 20 Mg Tab, 60 MG PO DAILY for 5 Days, TAB Prov:RYLAN NOBLE DO 06/05/16 Allergies Allergies: Coded Allergies: No Known Allergy (Unverified , 10/20/16) PMhx/Soc History of Surgery: Yes (cataract, hernia repair) Anesthesia Reaction: No Hx Neurological Disorder: No Hx Respiratory Disorders: No Hx Cardiac Disorders: Yes (stoke last july 2016, HTN) Hx Psychiatric Problems: Yes Hx Miscellaneous Medical Probl: Yes (DM) Hx Alcohol Use: No Hx Substance Use: No Hx Tobacco Use: No Smoking Status: Former smoker Physical Exam Vitals Vital Signs Date Time Temp Pulse Resp B/P Pulse Ox O2 Delivery O2 Flow Rate FiO2 10/20/16 10:18 97.3 84 16 174/72 100 10/20/16 08:25 98.3 87 24 149/65 97 Physical Exam INITIAL VITAL SIGNS: Reviewed by me GENERAL: The patient is well developed and appropriate for usual state of health in no apparent distress HEENT: Pupils equal, round, and reactive to light. EOMI. There is no scleral icterus. NECK: C-spine is soft and supple, there is no meningismus. There is no cervical lymphadenopathy. LUNGS: Clear to auscultation bilaterally. There are no rales, wheezes or rhonchi. HEART: Regular rate and rhythm, no murmurs, clicks, rubs or gallops. ABDOMEN: Obese, soft, non-tender, non-distended. There are bowel sounds in all four quadrants. No rebound or guarding. EXTREMITIES: There is no peripheral cyanosis or edema. No focal swelling or erythema. NEUROLOGICAL: The patient moves all four extremities with 5/5 strength. Cranial nerves II - XII are intact. Normal gait. Alert and oriented SKIN: There is no apparent rash or petechiae. HEME/LYMPHATIC: There is no evidence of excessive bruising or lymphedema. PSYCHIATRIC: The patient does not appear anxious or depressed. Result Diagram: 10/20/16 0850 10/20/16 0850 Results 24 hrs Laboratory Tests Test 10/20/16 08:50 10/20/16 09:50 Activated Partial Thromboplast Time 24.4Sec Anion Gap 19 Basophils # 0.110^3/ul Basophils % 0.7% Blood Urea Nitrogen 25mg/dl Calcium Level 9.7mg/dl Carbon Dioxide Level 22mmol/L Chloride Level 106mmol/L Creatinine 0.99mg/dl Eosinophils # 0.110^3/ul Eosinophils % 1.1% Glucose Level 210mg/dl Hematocrit 43.2% Hemoglobin 14.6g/dl INR International Normalized Ratio 0.86 Lymphocytes # 2.110^3/ul Lymphocytes % 22.6% Mean Corpuscular Hemoglobin 31.5pg Mean Corpuscular Hemoglobin Concent 33.8g/dl Mean Corpuscular Volume 93.1fl Mean Platelet Volume 11.2fl Monocytes # 0.710^3/ul Monocytes % 8.0% Neutrophils # 6.110^3/ul Neutrophils % 67.3% Nucleated Red Blood Cells # 0.010^3/ul Nucleated Red Blood Cells % 0.0/100WBC Platelet Count 42482^3/UL Potassium Level 6.0mmol/L Prothrombin Time 11.7Sec Prothrombin Time Ratio 0.9 Red Blood Count 4.6410^6/ul Red Cell Distribution Width 12.4% Sodium Level 141mmol/L Troponin I < 0.012ng/ml White Blood Count 9.110^3/ul Bedside Glucose 188mg/dL Current Medications Medications (Trade) Dose Ordered Sig/Patricia Route PRN Reason Start Time Stop Time Status Last Admin Dose Admin Morphine Sulfate (morphine) 4 mg ONCE STAT IV 10/20/16 09:02 10/20/16 09:03 DC 10/20/16 09:44 IV Flush 10 ml 10 ml STK-MED ONCE .ROUTE 10/20/16 09:13 10/20/16 09:14 DC 10/20/16 09:43 Sodium Chloride (NS) 100 ml @ ud STK-MED ONCE .ROUTE 10/20/16 09:13 10/20/16 09:14 DC 10/20/16 09:44 Iodixanol (Visipaque Locm) 100 ml STK-MED ONCE .ROUTE 10/20/16 09:13 10/20/16 09:14 DC 10/20/16 09:45 Iodixanol (Visipaque Locm) 50 ml STK-MED ONCE .ROUTE 10/20/16 09:14 10/20/16 09:15 DC 10/20/16 09:45 Insulin Human Regular (Humulin R) 10 unit ONCE STAT IV 10/20/16 09:41 10/20/16 09:46 DC 10/20/16 09:59 Dextrose (D50w Syringe) 50 ml ONCE STAT IV 10/20/16 09:41 10/20/16 09:46 DC 10/20/16 09:58 Sodium Polystyrene Sulfonate (Kayexalate) 30 gm ONCE STAT PO 10/20/16 09:41 10/20/16 09:46 DC 10/20/16 09:58 Sodium Bicarbonate (Na Bicarb 8.4% Syg) 50 ml ONCE STAT IV 10/20/16 09:41 10/20/16 09:46 DC 10/20/16 09:58 Calcium Gluconate (Ca Gluc) 1 gm ONCE STAT IV 10/20/16 09:41 10/20/16 09:47 DC 10/20/16 09:58 Miscellaneous Information 1 ea NOTE XX 10/20/16 10:00 Glucose (Glutose) 15 gm Q15M PRN PO DECREASED GLUCOSE 10/20/16 10:00 Glucose (Glutose) 22.5 gm Q15M PRN PO DECREASED GLUCOSE 10/20/16 10:00 Dextrose (D50w Syringe) 25 ml Q15M PRN IV DECREASED GLUCOSE 10/20/16 10:00 Dextrose (D50w Syringe) 50 ml Q15M PRN IV DECREASED GLUCOSE 10/20/16 10:00 Glucagon (Glucagen) 1 mg Q15M PRN IM DECREASED GLUCOSE 10/20/16 10:00 Glucose (Glutose) 15 gm Q15M PRN BUCCAL DECREASED GLUCOSE 10/20/16 10:00 Ondansetron HCl (Zofran Inj) 4 mg ER BRIDGE PRN IV NAUSEA AND/OR VOMITING 10/20/16 11:00 10/21/16 10:59 Acetaminophen (Tylenol Tab) 650 mg ER BRIDGE PRN PO MILD PAIN/FEVER 10/20/16 11:00 10/21/16 10:59 Procedures/MDM Chest X-ray 1V Interpreted by me: Soft Tissue: No acute abnormalities Bones: No acute abnormalities Mediastinum/Cardiac Silhouette/Lungs: Dilated aorta EKG: Rate/Rhythm: [Normal Sinus Rhythm] QRS, ST, T-waves: [No changes consistent w/ acute ischemia] Impression: [No evidence of ischemia or arrhythmia] CTA chest: 1. No evidence of central pulmonary emboli. 2. Atherosclerotic vascular disease of the aorta but no aneurysm or dissection. No periaortic fluid collections. 3. Cardiomegaly and coronary artery disease. 4. In the anterior right middle lobe is a 7 mm noncalcified pulmonary nodule. No other pulmonary nodules or thoracic lymphadenopathy. Interval follow up CT scan of the chest in 4 months is suggested for further evaluation. This 60-year-old male presents to the emergency room for evaluation of chest pain. When I evaluated him he did say he has sharp and pressure-like sensation in the center of his chest. 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 Lab work was obtained on this patient and he does have hyperkalemia with a potassium of 6. The patient was given calcium gluconate, insulin, bicarb, Kayexalate and I have contacted our admitting physician and have relayed my concern that this patient did not have a stress test. He agreed that the patient can be admitted at this time. He is hemodynamically stable, no EKG changes for hyperkalemia. Negative troponin. Chest x-ray did show mild widening of his aorta and the CTA of the chest does not reveal any dissection or aneurysm or pulmonary embolism. Departure Diagnosis: Primary Impression: Hyperkalemia Additional Impressions: Chest pain Hyperglycemia Condition: Fair DAMIEN LEMOS DO Oct 20, 2016 10:52
[2016-10-20] MEDS ORDERED: ACETAMINOPHEN 325 MG TAB PO PRN ×2 (11:00→13:00)
[2016-10-20] MEDS ORDERED: ONDANSETRON 4 MG INJ IV PRN ×2 (11:00→13:00)
[2016-10-20] MEDS ORDERED: HYDROCODONE/APAP (10/325) TAB PO PRN (12:30)
[2016-10-20] MEDS ORDERED: DOCUSATE SODIUM 100 MG CAP PO PRN (13:00)
[2016-10-20] MEDS ORDERED: ACETAMINOPHEN 650 MG SUPP PR PRN (13:00)
[2016-10-20] MEDS ORDERED: HYDROCODONE/APAP (5/325) TAB PO PRN (13:00)
[2016-10-20] MEDS ORDERED: BISACODYL 10 MG SUPP PR PRN (13:00)
[2016-10-20] MEDS ORDERED: MAGNESIUM HYDROXIDE 30ML CUP PO PRN (13:00)
[2016-10-20] MEDS ORDERED: NACL 0.9% 3 ML SYG IV SCH (13:00)
[2016-10-20] MEDS ORDERED: NITROGLYCERIN (SL) 0.4 MG TAB SL PRN (13:00)
[2016-10-20] MEDS: morphine 2 MG INJ IV PRN (13:55)
--- NOTE | 2016-10-20 14:28 | CONS ---
Date/Time of Note Date/Time of Note DATE: 10/20/16 TIME: 14:11 Assessment/Plan Assessment/Plan Additional Assessment/Plan Recurrent chest pain and back pain Hyperkalemia Preserved ejection fraction Diabetes Hypertension Dyslipidemia CVA Unclear medication compliance -Patient with recurrent symptoms of chest discomfort. Symptoms are somewhat atypical but patient with significant risk factors for coronary artery disease. Patient also with recurrent admissions with chest pain. CT pulmonary angiogram is negative for PE. Would obtain serial cardiac enzymes to rule out acute ischemia. If remain negative, would proceed with nuclear cardiac perfusion study to rule out significant obstructive coronary artery disease. Withhold any medications which which could cause hyperkalemia (i.e ROBYN-I) would have this treated and repeat chemistry panel. Continue aspirin and statin therapy if no contraindication. Consultation Date/Type/Reason Admit Date/Time Oct 20, 2016 at 10:46 Type of Consultation: cv Reason for Consultation Back and chest pain Hx of Present Illness This is a 60-year-old male with past medical history of CVA, hypertension, diabetes who presents with complaints of left-sided chest and back pain. Pain has been off and on over the past few months but worsened over the past week. Pain at times is worse with lying down. He is unsure if exertion has any effect on his pain. Denies any shortness of breath, dizziness, lightheadedness. He was recently hospitalized a few days ago for similar symptoms. Cardiac enzymes were negative and patient was discharged. He comes back because of recurrent pain. He does complain of occasional chills but denies any fevers. Does complain of a dry cough over the past 2 years. 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 Exam/Review of Systems Vital Signs Vitals Vital Signs Date Time Temp Pulse Resp B/P Pulse Ox O2 Delivery O2 Flow Rate FiO2 10/20/16 13:00 84 17 124/110 95 Room Air 10/20/16 10:18 97.3 Exam No apparent distress Constitutional: alert, obese, oriented Head: normocephalic Neck: supple Respiratory: other (Coarse breath sounds bilaterally, no wheezing) Cardiovascular: other (S1-S2 heard, no murmurs appreciated), regular rate and rhythm Gastrointestinal: bowel sounds, non-tender, other (No guarding), soft Extremities: edema (Trace), other (No cyanosis) Results Result Diagram: 10/20/16 0850 10/20/16 0850 Results 24 hrs Laboratory Tests Test 10/20/16 08:50 10/20/16 09:50 Activated Partial Thromboplast Time 24.4 L Anion Gap 19 H Basophils # 0.1 Basophils % 0.7 Blood Urea Nitrogen 25 H Calcium Level 9.7 Carbon Dioxide Level 22 Chloride Level 106 Creatinine 0.99 Eosinophils # 0.1 Eosinophils % 1.1 Glucose Level 210 Hematocrit 43.2 Hemoglobin 14.6 INR International Normalized Ratio 0.86 Lymphocytes # 2.1 Lymphocytes % 22.6 Mean Corpuscular Hemoglobin 31.5 Mean Corpuscular Hemoglobin Concent 33.8 Mean Corpuscular Volume 93.1 Mean Platelet Volume 11.2 H Monocytes # 0.7 Monocytes % 8.0 Neutrophils # 6.1 Neutrophils % 67.3 Nucleated Red Blood Cells # 0.0 Nucleated Red Blood Cells % 0.0 Platelet Count 242 Potassium Level 6.0 H Prothrombin Time 11.7 L Prothrombin Time Ratio 0.9 Red Blood Count 4.64 L Red Cell Distribution Width 12.4 Sodium Level 141 Troponin I < 0.012 White Blood Count 9.1 Bedside Glucose 188 Medications Medications Current Medications Glucose (Glutose) 15 gm Q15M PRN PO DECREASED GLUCOSE; Start 10/20/16 at 10:00 Glucose (Glutose) 22.5 gm Q15M PRN PO DECREASED GLUCOSE; Start 10/20/16 at 10:00 Dextrose (D50w Syringe) 25 ml Q15M PRN IV DECREASED GLUCOSE; Start 10/20/16 at 10:00 Dextrose (D50w Syringe) 50 ml Q15M PRN IV DECREASED GLUCOSE; Start 10/20/16 at 10:00 Glucagon (Glucagen) 1 mg Q15M PRN IM DECREASED GLUCOSE; Start 10/20/16 at 10:00 Glucose (Glutose) 15 gm Q15M PRN BUCCAL DECREASED GLUCOSE; Start 10/20/16 at 10: 00 Aspirin (Aspirin) 81 mg DAILY PO ; Start 10/21/16 at 09:00 Atorvastatin Calcium (Lipitor) 40 mg HS PO ; Start 10/20/16 at 21:00 Benazepril HCl (Lotensin) 40 mg DAILY PO ; Start 10/21/16 at 09:00; Status UNV Gabapentin (Neurontin) 600 mg BID PO ; Start 10/20/16 at 21:00 Acetaminophen/ Hydrocodone Bitart (Berino (10/325)) 1 tab Q6H PRN PO PAIN; Start 10/20/16 at 12:30 Hydrocortisone (Hydrocortisone 2.5% Cr) 28.35 applic BID TOP ; Start 10/20/16 at 21:00 Insulin Glargine (Lantus) 55 unit DAILY SC ; Start 10/21/16 at 09:00 Metoprolol Tartrate (Lopressor) 25 mg BID PO ; Start 10/20/16 at 21:00 Ondansetron HCl (Zofran Inj) 4 mg Q6H PRN IV NAUSEA AND/OR VOMITING; Start 10/20 at 13:00 Acetaminophen (Tylenol Tab) 650 mg Q6H PRN PO PAIN LEVEL 1-3 OR FEVER; Start at 13:00 Acetaminophen (Tylenol Supp) 650 mg Q6H PRN MS PAIN LEVEL 1-3 OR FEVER; Start 10/20/16 at 13:00 Acetaminophen/ Hydrocodone Bitart (Berino (5/325)) 1 tab Q6H PRN PO MODERATE PAIN LEVEL 4-6; Start 10/20/16 at 13:00 Acetaminophen/ Hydrocodone Bitart (Berino (5/325)) 2 tab Q6H PRN PO SEVERE PAIN LEVEL 7-10; Start 10/20/16 at 13:00 Morphine Sulfate (morphine) 2 mg Q4H PRN IV SEVERE PAIN LEVEL 7-10 Last administered on 10/20/16t 13:55; Admin Dose 2 MG; Start 10/20/16 at 13:00 Docusate Sodium (Colace) 100 mg Q12H PRN PO CONSTIPATION; Start 10/20/16 at 13: 00 Magnesium Hydroxide (Milk Of Mag) 30 ml DAILY PRN PO CONSTIPATION; Start at 13:00 Bisacodyl (Dulcolax Supp) 10 mg DAILY PRN MS CONSTIPATION; Start 10/20/16 at 13: 00 Pantoprazole (Protonix Iv) 40 mg DAILY@06 IV ; Start 10/21/16 at 06:00 Nitroglycerin (Nitroglycerin (Sl Tab) 0.4 Mg) 1 tab Q5M PRN SL CHEST PAIN; Start 10/20/16 at 13:00 Miscellaneous Information 1 ea NOTE XX ; Start 10/20/16 at 13:30 Glucose (Glutose) 15 gm Q15M PRN PO DECREASED GLUCOSE; Start 10/20/16 at 13:30 Glucose (Glutose) 22.5 gm Q15M PRN PO DECREASED GLUCOSE; Start 10/20/16 at 13:30 Dextrose (D50w Syringe) 25 ml Q15M PRN IV DECREASED GLUCOSE; Start 10/20/16 at 13:30 Dextrose (D50w Syringe) 50 ml Q15M PRN IV DECREASED GLUCOSE; Start 10/20/16 at 13:30 Glucagon (Glucagen) 1 mg Q15M PRN IM DECREASED GLUCOSE; Start 10/20/16 at 13:30 Glucose (Glutose) 15 gm Q15M PRN BUCCAL DECREASED GLUCOSE; Start 10/20/16 at 13: 30 Procedures Procedures ECG demonstrates sinus rhythm at 91 bpm, inferior Q waves, no significant ischemic STT wave abnormalities Eddi Taylor DO Oct 20, 2016 14:22
[2016-10-20] MEDS ORDERED: SOD CHLORIDE 0.9% 250 ML IV ONE (14:30)
[2016-10-20] MEDS ORDERED: SOD CHLORIDE 0.9% 1,000 ML IV SCH (14:30)
[2016-10-20 15:00] LABS: CREATINE KINASE 102 IU/L (23-200)
[2016-10-20 15:28] LABS: TROPONIN-I < 0.012 ng/ml (0.00-0.12)
--- NOTE | 2016-10-20 16:36 | HP ---
Date/Time of Note Date/Time of Note DATE: 10/20/16 TIME: 16:32 Assessment/Plan VTE Prophylaxis VTE Prophylaxis Intervention: SCD's Lines/Catheters IV Catheter Type (from Nrs): Peripheral IV Assessment/Plan Chief Complaint/Hosp Course Assessment and plan 1. Chest pain. Will get rougher operator this admission. Tentative plan for stress test. Monitor in telemetry. 2. Type 2 diabetes. Continue insulin regimen. Will adjust as needed 3. Essential hypertension. Continue antihypertensives and adjust as needed 4. Morbid obesity. Weight reduction is advised 5. Reported chronic cough. Patient does report having history of GERD. This is likely attributed to his GERD. Weight reduction advised. Placed on PPI 6. Dyslipidemia. Continue on statin 7. History of stroke. No active issue at this time. Will monitor Prophylaxis: PPI DVT prophylaxis: SCDs Admission process 40 minutes Discussed plan of care with Dr. Rivero Problems: HPI/ROS Admit Date/Time Admit Date/Time Oct 20, 2016 at 10:46 Hx of Present Illness This is a 60-year-old male with past medical history of type 2 diabetes, hypertension, asthma, recent stroke in July 2016, obesity, hypertension, who came to [facility] due to reports of chest pain. Of note patient was recently admitted on October 17, 2016 secondary to chest pain and discharged October 18, 2016. At that time he had serial troponins drawn that were all essentially negative. His A1c at that time was 10.0. He also had an echocardiogram done at that time with ejection fraction of 65% with stage I diastolic dysfunction. he was ruled out for ACS at that time. He did report that one day after he was discharged home he started to have Chest pain again on the morning of October 20, 2016. Subsequently developed respiratory hospital for further evaluation. Upon examination his troponin initially was negative. There was question about possible pulmonary embolism however after CTA of the chest was done it was noted there is no evidence of pulmonary emboli. There was seen a right middle lobe 7 mm noncalcified pulmonary nodule however. Currently still reports having chest pain that starts from his chest that radiates to his back 8 out of 10 sharp-like in nature. He does have minimal shortness of breath associated with it. He also reports having some chronic cough. We will evaluate him for the aformentioned issues. ROS 12 point review of systems obtained entirely negative except that mentioned in history of present illness PMH/Family/Social Past Medical History type 2 diabetes, hypertension, asthma, recent stroke in July 2016, obesity, hypertension Past Surgical History Reported for surgery details unknown Social History Alcohol Use: other (History of) Smoking Status: Former smoker (Reported 14 years ago) Exam/Review of Systems Vital Signs Vitals Vital Signs Date Time Temp Pulse Resp B/P Pulse Ox O2 Delivery O2 Flow Rate FiO2 10/20/16 16:14 78 10/20/16 15:25 98.1 18 120/66 93 10/20/16 13:25 Nasal Cannula 2.0 Exam Exam General: Reports having some chest pain Eyes: Pupils equal round reactive to light Neck: Supple nontender, no JVD Cardiac: Remains an regular rate with S1-S2 Pulmonary: no Wheezing or rhonchi GI: Obese soft nontender Extremities: Minimal edema bilateral lower extremities +1 Skin: Clean dry and intact Neurologic: Alert to person place and time and situation Labs Result Diagram: 10/20/16 0850 10/20/16 1428 Medications Medications Current Medications Glucose (Glutose) 15 gm Q15M PRN PO DECREASED GLUCOSE; Start 10/20/16 at 10:00 Glucose (Glutose) 22.5 gm Q15M PRN PO DECREASED GLUCOSE; Start 10/20/16 at 10:00 Dextrose (D50w Syringe) 25 ml Q15M PRN IV DECREASED GLUCOSE; Start 10/20/16 at 10:00 Dextrose (D50w Syringe) 50 ml Q15M PRN IV DECREASED GLUCOSE; Start 10/20/16 at 10:00 Glucagon (Glucagen) 1 mg Q15M PRN IM DECREASED GLUCOSE; Start 10/20/16 at 10:00 Glucose (Glutose) 15 gm Q15M PRN BUCCAL DECREASED GLUCOSE; Start 10/20/16 at 10: 00 Aspirin (Aspirin) 81 mg DAILY PO ; Start 10/21/16 at 09:00 Atorvastatin Calcium (Lipitor) 40 mg HS PO ; Start 10/20/16 at 21:00 Gabapentin (Neurontin) 600 mg BID PO ; Start 10/20/16 at 21:00 Acetaminophen/ Hydrocodone Bitart ([place] (10/325)) 1 tab Q6H PRN PO PAIN; Start 10/20/16 at 12:30 Hydrocortisone (Hydrocortisone 2.5% Cr) 28.35 applic BID TOP ; Start 10/20/16 at 21:00 Insulin Glargine (Lantus) 55 unit DAILY SC ; Start 10/21/16 at 09:00 Metoprolol Tartrate (Lopressor) 25 mg BID PO ; Start 10/20/16 at 21:00 Ondansetron HCl (Zofran Inj) 4 mg Q6H PRN IV NAUSEA AND/OR VOMITING; Start 10/20 at 13:00 Acetaminophen (Tylenol Tab) 650 mg Q6H PRN PO PAIN LEVEL 1-3 OR FEVER; Start at 13:00 Acetaminophen (Tylenol Supp) 650 mg Q6H PRN SD PAIN LEVEL 1-3 OR FEVER; Start 10/20/16 at 13:00 Acetaminophen/ Hydrocodone Bitart ([place] (5/325)) 1 tab Q6H PRN PO MODERATE PAIN LEVEL 4-6; Start 10/20/16 at 13:00 Acetaminophen/ Hydrocodone Bitart ([place] (5/325)) 2 tab Q6H PRN PO SEVERE PAIN LEVEL 7-10; Start 10/20/16 at 13:00 Morphine Sulfate (morphine) 2 mg Q4H PRN IV SEVERE PAIN LEVEL 7-10 Last administered on 10/20/16t 13:55; Admin Dose 2 MG; Start 10/20/16 at 13:00 Docusate Sodium (Colace) 100 mg Q12H PRN PO CONSTIPATION; Start 10/20/16 at 13: 00 Magnesium Hydroxide (Milk Of Mag) 30 ml DAILY PRN PO CONSTIPATION; Start at 13:00 Bisacodyl (Dulcolax Supp) 10 mg DAILY PRN SD CONSTIPATION; Start 10/20/16 at 13: 00 Pantoprazole (Protonix Iv) 40 mg DAILY@06 IV ; Start 10/21/16 at 06:00 Nitroglycerin (Nitroglycerin (Sl Tab) 0.4 Mg) 1 tab Q5M PRN SL CHEST PAIN; Start 10/20/16 at 13:00 Miscellaneous Information 1 ea NOTE XX ; Start 10/20/16 at 13:30 Glucose (Glutose) 15 gm Q15M PRN PO DECREASED GLUCOSE; Start 10/20/16 at 13:30 Glucose (Glutose) 22.5 gm Q15M PRN PO DECREASED GLUCOSE; Start 10/20/16 at 13:30 Dextrose (D50w Syringe) 25 ml Q15M PRN IV DECREASED GLUCOSE; Start 10/20/16 at 13:30 Dextrose (D50w Syringe) 50 ml Q15M PRN IV DECREASED GLUCOSE; Start 10/20/16 at 13:30 Glucagon (Glucagen) 1 mg Q15M PRN IM DECREASED GLUCOSE; Start 10/20/16 at 13:30 Glucose 15 gm 15 gm Q15M PRN BUCCAL DECREASED GLUCOSE; Start 10/20/16 at 13:30 Sodium Chloride (NS) 1,000 ml @ 75 mls/hr [id number] IV ; Start 10/20/16 at 14:30; Stop 10/21/16 at 03:49 RASHAAD RIOS Oct 20, 2016 16:36
[2016-10-20] MEDS: metFORMIN (XR) 500 MG TAB PO SCH (17:54)
[2016-10-20] MEDS: INSULIN ASPART [NOVOLOG] 3 ML PEN SC SCH ×3 (17:56→21:00)
[2016-10-20] MEDS: HYDROCODONE/APAP (5/325) TAB PO PRN (18:40)
[2016-10-20 19:29] LABS: CREATINE KINASE 102 IU/L (23-200)
[2016-10-20 19:45] LABS: CK-MB 1.87 ng/ml (0.0-2.4); TROPONIN-I < 0.012 ng/ml (0.00-0.12)
[2016-10-20] MEDS: ATORVASTATIN 20 MG TAB PO SCH (21:14)
[2016-10-20] MEDS: GABAPENTIN 300 MG CAP PO SCH (21:14)
[2016-10-20] MEDS: METOPROLOL 25 MG TAB PO SCH (21:17)
[2016-10-20] MEDS: HYDROCORTISONE 2.5% 20 GM CR TOP SCH (21:19)
[2016-10-20 23:14] LABS: CREATINE KINASE 90 IU/L (23-200)
[2016-10-20 23:24] LABS: CK-MB 2.05 ng/ml (0.0-2.4)
[2016-10-20 23:42] LABS: TROPONIN-I < 0.012 ng/ml (0.00-0.12)
[2016-10-21] VITALS (12 sets, daily range): BP systolic 129–175; BP diastolic 65–84; PULSE 18–80; RESP 17–18
[2016-10-21] MEDS: PANTOPRAZOLE 40 MG INJ IV SCH (06:11)
[2016-10-21] MEDS: HYDROCODONE/APAP (5/325) TAB PO PRN (06:11)
[2016-10-21 07:10] LABS: ALBUMIN 3.4 g/dl (3.3-4.9)
[2016-10-21 07:13] LABS: BILIRUBIN,INDIRECT 0.3 mg/dl (0-1.1); BILIRUBIN,TOTAL 0.3 mg/dl (0.2-1.3); CREATININE 0.85 mg/dl (0.61-1.24)
[2016-10-21 07:14] LABS: ALBUMIN/GLOBULIN RATIO 1.09; CALCIUM 8.7 mg/dl (8.4-10.2); TOTAL PROTEIN 6.5 g/dl (6.1-8.1)
[2016-10-21 07:15] LABS: CHOL/HDL RATIO 6.4 RATIO; MAGNESIUM 1.7 mg/dl (1.7-2.5)
[2016-10-21 07:29] LABS: T3 UPTAKE 40.7 % (23.5-40.5)
[2016-10-21] MEDS: INSULIN ASPART [NOVOLOG] 3 ML PEN SC SCH ×7 (07:30→21:17)
--- NOTE | 2016-10-21 08:44 | CONS ---
Date/Time of Note Date/Time of Note DATE: 10/21/16 TIME: 08:43 Assessment/Plan Assessment/Plan Chief Complaint/Hosp Course Recurrent chest pain and back pain Hyperkalemia Preserved ejection fraction Diabetes Hypertension Dyslipidemia CVA Unclear medication compliance Problems: Additional Assessment/Plan 1) pharmacological stress 2) ASA, Statin 3) No ROBYN/ARB due to hyperkalemia Consultation Date/Type/Reason Admit Date/Time Oct 20, 2016 at 10:46 Initial Consult Date Type of Consultation: cv 24 HR Interval Summary Constitutional: no complaints Detailed Summary Respiratory: no complaints Cardiovascular: no complaints Gastrointestinal: no complaints Genitourinary: no complaints Musculoskeletal: no complaints Skin: no complaints Neurologic: no complaints Exam/Review of Systems Vital Signs Vitals Vital Signs Date Time Temp Pulse Resp B/P Pulse Ox O2 Delivery O2 Flow Rate FiO2 10/21/16 08:03 71 10/21/16 07:44 98.6 17 143/72 95 10/21/16 00:00 Room Air 10/20/16 13:25 2.0 Intake and Output 10/20/16 10/20/16 10/21/16 15:00 23:00 07:00 Intake Total 420 ml Balance 420 ml Exam Head: atraumatic, normocephalic ENMT: nl external ears & nose Neck: supple Respiratory: clear to auscultation Cardiovascular: regular rate and rhythm Gastrointestinal: soft Musculoskeletal: nl extremities to inspection Extremities: normal pulses Results Result Diagram: 10/20/16 0850 10/21/16 0612 Results 24 hrs Laboratory Tests Test 10/20/16 08:50 10/20/16 09:50 10/20/16 14:28 10/20/16 16:52 Activated Partial Thromboplast Time 24.4 L Anion Gap 19 H Basophils # 0.1 Basophils % 0.7 Blood Urea Nitrogen 25 H Calcium Level 9.7 Carbon Dioxide Level 22 Chloride Level 106 Creatinine 0.99 Eosinophils # 0.1 Eosinophils % 1.1 Glucose Level 210 Hematocrit 43.2 Hemoglobin 14.6 INR International Normalized Ratio 0.86 Lymphocytes # 2.1 Lymphocytes % 22.6 Mean Corpuscular Hemoglobin 31.5 Mean Corpuscular Hemoglobin Concent 33.8 Mean Corpuscular Volume 93.1 Mean Platelet Volume 11.2 H Monocytes # 0.7 Monocytes % 8.0 Neutrophils # 6.1 Neutrophils % 67.3 Nucleated Red Blood Cells # 0.0 Nucleated Red Blood Cells % 0.0 Platelet Count 242 Potassium Level 6.0 H 4.0 # Prothrombin Time 11.7 L Prothrombin Time Ratio 0.9 Red Blood Count 4.64 L Red Cell Distribution Width 12.4 Sodium Level 141 Troponin I < 0.012 < 0.012 White Blood Count 9.1 Bedside Glucose 188 194 Creatine Kinase 102 Creatine Kinase Index 2.0 Creatinine Kinase MB (Mass) 2.00 Test 10/20/16 18:45 10/20/16 21:27 10/20/16 22:52 10/21/16 06:12 Creatine Kinase 102 90 Creatine Kinase Index 1.8 2.3 Creatinine Kinase MB (Mass) 1.87 2.05 Troponin I < 0.012 < 0.012 Bedside Glucose 112 Alanine Aminotransferase (ALT/SGPT) 35 Albumin 3.4 Albumin/Globulin Ratio 1.09 Alkaline Phosphatase 91 Anion Gap 15 Aspartate Amino Transf (AST/SGOT) 22 Blood Urea Nitrogen 20 Calcium Level 8.7 Carbon Dioxide Level 29 Chloride Level 102 Cholesterol Level 168 Cholesterol/HDL Ratio 6.4 Creatinine 0.85 Direct Bilirubin 0.00 Free Thyroxine Index 2.44 Globulin 3.10 Glucose Level 109 # HDL Cholesterol 26 L Indirect Bilirubin 0.3 LDL Cholesterol, Calculated 101 Magnesium Level 1.7 Phosphorus Level 4.0 Potassium Level 4.0 Sodium Level 142 Thyroxine (T4) 6.0 Total Bilirubin 0.3 Total Protein 6.5 Triglycerides Level 205 H Triiodothyronine (T3) Uptake 40.7 H Test 10/21/16 07:37 Bedside Glucose 130 Medications Medications Current Medications Glucose (Glutose) 15 gm Q15M PRN PO DECREASED GLUCOSE; Start 10/20/16 at 10:00 Glucose (Glutose) 22.5 gm Q15M PRN PO DECREASED GLUCOSE; Start 10/20/16 at 10:00 Dextrose (D50w Syringe) 25 ml Q15M PRN IV DECREASED GLUCOSE; Start 10/20/16 at 10:00 Dextrose (D50w Syringe) 50 ml Q15M PRN IV DECREASED GLUCOSE; Start 10/20/16 at 10:00 Glucagon (Glucagen) 1 mg Q15M PRN IM DECREASED GLUCOSE; Start 10/20/16 at 10:00 Glucose (Glutose) 15 gm Q15M PRN BUCC[place] DECREASED GLUCOSE; Start 10/20/16 at 10: 00 Aspirin (Aspirin) 81 mg DAILY PO ; Start 10/21/16 at 09:00 Atorvastatin Calcium (Lipitor) 40 mg HS PO Last administered on 10/20/16 21:14 ; Admin Dose 40 MG; Start 10/20/16 at 21:00 Gabapentin (Neurontin) 600 mg BID PO Last administered on 10/20/16 21:14; Admin Dose 600 MG; Start 10/20/16 at 21:00 Acetaminophen/ Hydrocodone Bitart ([place] (10/325)) 1 tab Q6H PRN PO PAIN; Start 10/20/16 at 12:30 Hydrocortisone (Hydrocortisone 2.5% Cr) 28.35 applic BID TOP Last administered on 10/20/16 21:19; Admin Dose 28.35 APPLIC; Start 10/20/16 at 21:00 Insulin Glargine (Lantus) 55 unit DAILY SC ; Start 10/21/16 at 09:00 Metoprolol Tartrate (Lopressor) 25 mg BID PO Last administered on 10/20/16 21: 17; Admin Dose 25 MG; Start 10/20/16 at 21:00 Ondansetron HCl (Zofran Inj) 4 mg Q6H PRN IV NAUSEA AND/OR VOMITING; Start 10/20 at 13:00 Acetaminophen (Tylenol Tab) 650 mg Q6H PRN PO PAIN LEVEL 1-3 OR FEVER; Start at 13:00 Acetaminophen (Tylenol Supp) 650 mg Q6H PRN [place] PAIN LEVEL 1-3 OR FEVER; Start 10/20/16 at 13:00 Acetaminophen/ Hydrocodone Bitart ([place] (5/325)) 1 tab Q6H PRN PO MODERATE PAIN LEVEL 4-6; Start 10/20/16 at 13:00 Acetaminophen/ Hydrocodone Bitart ([place] (5/325)) 2 tab Q6H PRN PO SEVERE PAIN LEVEL 7-10 Last administered on 10/21/16 06:11; Admin Dose 2 TAB; Start 10/20/16 at 13:00 Morphine Sulfate (morphine) 2 mg Q4H PRN IV SEVERE PAIN LEVEL 7-10 Last administered on 10/20/16 13:55; Admin Dose 2 MG; Start 10/20/16 at 13:00 Docusate Sodium (Colace) 100 mg Q12H PRN PO CONSTIPATION; Start 10/20/16 at 13: 00 Magnesium Hydroxide (Milk Of Mag) 30 ml DAILY PRN PO CONSTIPATION; Start at 13:00 Bisacodyl (Dulcolax Supp) 10 mg DAILY PRN [place] CONSTIPATION; Start 10/20/16 at 13: 00 Pantoprazole (Protonix Iv) 40 mg DAILY@06 IV Last administered on 10/21/16t 06: 11; Admin Dose 40 MG; Start 10/21/16 at 06:00 Nitroglycerin (Nitroglycerin (Sl Tab) 0.4 Mg) 1 tab Q5M PRN SL CHEST PAIN; Start 10/20/16 at 13:00 Miscellaneous Information 1 ea NOTE XX ; Start 10/20/16 at 13:30 Glucose (Glutose) 15 gm Q15M PRN PO DECREASED GLUCOSE; Start 10/20/16 at 13:30 Glucose (Glutose) 22.5 gm Q15M PRN PO DECREASED GLUCOSE; Start 10/20/16 at 13:30 Dextrose (D50w Syringe) 25 ml Q15M PRN IV DECREASED GLUCOSE; Start 10/20/16 at 13:30 Dextrose (D50w Syringe) 50 ml Q15M PRN IV DECREASED GLUCOSE; Start 10/20/16 at 13:30 Glucagon (Glucagen) 1 mg Q15M PRN IM DECREASED GLUCOSE; Start 10/20/16 at 13:30 Glucose (Glutose) 15 gm Q15M PRN BUCCAL DECREASED GLUCOSE; Start 10/20/16 at 13: 30 STEPHANIE FARIA MD Oct 21, 2016 08:44
[2016-10-21] MEDS ORDERED: BENAZEPRIL 40 MG TAB PO SCH (09:00)
[2016-10-21] MEDS: ASPIRIN 81 MG TAB PO SCH (09:08)
[2016-10-21] MEDS: GABAPENTIN 300 MG CAP PO SCH ×2 (09:08→21:06)
[2016-10-21] MEDS: METOPROLOL 25 MG TAB PO SCH ×2 (09:08→21:07)
[2016-10-21] MEDS ORDERED: REGADENOSON 0.4 MG/5 ML SYG ONE (09:33)
[2016-10-21] MEDS: HYDROCORTISONE 2.5% 20 GM CR TOP SCH ×2 (09:38→21:20)
[2016-10-21] MEDS: INSULIN GLARGINE [LANtus] 3 ML PEN SC SCH (09:38)
--- NOTE | 2016-10-21 10:30 | ECORPT ---
DATE OF SERVICE: 10/21/2016 LEXISCAN STRESS TEST SUPERVISING PHYSICIAN: Stephanie Tang MD CLINICAL INDICATION: Chest pain. PROCEDURE: The patient was attached to clinical EKG and pulse oximetry monitoring. Subsequently, 0 .4 mg of Lexiscan was infused. This was followed by SPECT nuclear imaging. RESTING EKG: Sinus rhythm, nonspecific ST-T changes. EKG POST-LEXISCAN INJECTION: Nonspecific ST-T changes. CLINICAL INFORMATION: Resting heart rate 83, peak heart rate 88. Resting blood pressure is 132/74, peak blood pressure is 141/83. CLINICAL SYMPTOMS: None. SUMMARY: Clinical impression nonischemic. EKG: Nonischemic. This will be followed by SPECT nuclear imaging. Dictated By: STEPHANIE DUGGAN/SOFIYA Conf#: [id number] DID#: [id number]
[2016-10-21] MEDS: metFORMIN (XR) 500 MG TAB PO SCH ×2 (11:14→17:27)
--- NOTE | 2016-10-21 12:29 | PN ---
Date/Time of Note Date/Time of Note DATE: 10/21/16 TIME: 12:27 Assessment/Plan VTE Prophylaxis VTE Prophylaxis Intervention: SCD's Lines/Catheters IV Catheter Type (from Nrsg): Peripheral IV Assessment/Plan Chief Complaint/Hosp Course Assessment and plan 1. Chest pain. continue with cardiology recs. follow up with stress est 2. Type 2 diabetes. Continue insulin regimen. Will adjust as needed 3. Essential hypertension. Continue antihypertensives and adjust as needed 4. Morbid obesity. Weight reduction is advised. cont low fat/low cholesterol diet 5. Reported chronic cough. Patient does report having history of GERD. This is likely attributed to his GERD. Weight reduction advised. Placed on PPI. will continue 6. Dyslipidemia. Continue on statin 7. History of stroke. No active issue at this time. Will monitor Prophylaxis: PPI DVT prophylaxis: SCDs DISPO/PLAN: follow up stress test results. d/c when cleared by consultants Discussed plan of care with Dr. Rivero Problems: Subjective 24 Hr Interval Summary Free Text/Dictation no s/s of distress. denies chest pain at this time Exam/Review of Systems Vital Signs Vitals Vital Signs Date Time Temp Pulse Resp B/P Pulse Ox O2 Delivery O2 Flow Rate FiO2 10/21/16 12:08 65 10/21/16 11:17 97.5 17 129/76 96 10/21/16 00:00 Room Air 10/20/16 13:25 2.0 Intake and Output 10/20/16 10/20/16 10/21/16 15:00 23:00 07:00 Intake Total 420 ml Balance 420 ml Exam General: comfortable. no chest pain at this time Eyes: Pupils equal round reactive to light Neck: no obvious jvd Cardiac: reglar rate Pulmonary: no Wheezing or rhonchi GI: Obese soft nontender Extremities: Minimal edema bilateral lower extremities +1 Skin: cdi Neurologic:armin x3 Results Result Diagram: 10/20/16 0850 10/21/16 0612 Results 24 hrs Laboratory Tests Test 10/20/16 14:28 10/20/16 16:52 10/20/16 18:45 10/20/16 21:27 Creatine Kinase 102 102 Creatine Kinase Index 2.0 1.8 Creatinine Kinase MB (Mass) 2.00 1.87 Potassium Level 4.0 # Troponin I < 0.012 < 0.012 Bedside Glucose 194 112 Test 10/20/16 22:52 10/21/16 06:12 10/21/16 07:37 10/21/16 11:17 Creatine Kinase 90 Creatine Kinase Index 2.3 Creatinine Kinase MB (Mass) 2.05 Troponin I < 0.012 Alanine Aminotransferase (ALT/SGPT) 35 Albumin 3.4 Albumin/Globulin Ratio 1.09 Alkaline Phosphatase 91 Anion Gap 15 Aspartate Amino Transf (AST/SGOT) 22 Blood Urea Nitrogen 20 Calcium Level 8.7 Carbon Dioxide Level 29 Chloride Level 102 Cholesterol Level 168 Cholesterol/HDL Ratio 6.4 Creatinine 0.85 Direct Bilirubin 0.00 Free Thyroxine Index 2.44 Globulin 3.10 Glucose Level 109 # HDL Cholesterol 26 L Hemoglobin A1c 9.6 H Indirect Bilirubin 0.3 LDL Cholesterol, Calculated 101 Magnesium Level 1.7 Phosphorus Level 4.0 Potassium Level 4.0 Sodium Level 142 Thyroxine (T4) 6.0 Total Bilirubin 0.3 Total Protein 6.5 Triglycerides Level 205 H Triiodothyronine (T3) Uptake 40.7 H Bedside Glucose 130 148 Medications Medications Current Medications Glucose (Glutose) 15 gm Q15M PRN PO DECREASED GLUCOSE; Start 10/20/16 at 10:00 Glucose (Glutose) 22.5 gm Q15M PRN PO DECREASED GLUCOSE; Start 10/20/16 at 10:00 Dextrose (D50w Syringe) 25 ml Q15M PRN IV DECREASED GLUCOSE; Start 10/20/16 at 10:00 Dextrose (D50w Syringe) 50 ml Q15M PRN IV DECREASED GLUCOSE; Start 10/20/16 at 10:00 Glucagon (Glucagen) 1 mg Q15M PRN IM DECREASED GLUCOSE; Start 10/20/16 at 10:00 Glucose (Glutose) 15 gm Q15M PRN BUCC[place] DECREASED GLUCOSE; Start 10/20/16 at 10: 00 Aspirin (Aspirin) 81 mg DAILY PO Last administered on 10/21/16 09:08; Admin Dose 81 MG; Start 10/21/16 at 09:00 Atorvastatin Calcium (Lipitor) 40 mg HS PO Last administered on 10/20/16 21:14 ; Admin Dose 40 MG; Start 10/20/16 at 21:00 Gabapentin (Neurontin) 600 mg BID PO Last administered on 10/21/16 09:08; Admin Dose 600 MG; Start 10/20/16 at 21:00 Acetaminophen/ Hydrocodone Bitart ([place] (10/325)) 1 tab Q6H PRN PO PAIN; Start 10/20/16 at 12:30 Hydrocortisone (Hydrocortisone 2.5% Cr) 28.35 applic BID TOP Last administered on 10/21/16 09:38; Admin Dose 28.35 APPLIC; Start 10/20/16 at 21:00 Insulin Glargine (Lantus) 55 unit DAILY SC Last administered on 10/21/16 09:38 ; Admin Dose 55 UNIT; Start 10/21/16 at 09:00 Metoprolol Tartrate (Lopressor) 25 mg BID PO Last administered on 10/21/16 09: 08; Admin Dose 25 MG; Start 10/20/16 at 21:00 Ondansetron HCl (Zofran Inj) 4 mg Q6H PRN IV NAUSEA AND/OR VOMITING; Start 10/20 at 13:00 Acetaminophen (Tylenol Tab) 650 mg Q6H PRN PO PAIN LEVEL 1-3 OR FEVER; Start at 13:00 Acetaminophen (Tylenol Supp) 650 mg Q6H PRN [place] PAIN LEVEL 1-3 OR FEVER; Start 10/20/16 at 13:00 Acetaminophen/ Hydrocodone Bitart ([place] (5/325)) 1 tab Q6H PRN PO MODERATE PAIN LEVEL 4-6; Start 10/20/16 at 13:00 Acetaminophen/ Hydrocodone Bitart ([place] (5/325)) 2 tab Q6H PRN PO SEVERE PAIN LEVEL 7-10 Last administered on 10/21/16 06:11; Admin Dose 2 TAB; Start 10/20/16 at 13:00 Morphine Sulfate (morphine) 2 mg Q4H PRN IV SEVERE PAIN LEVEL 7-10 Last administered on 10/20/16 13:55; Admin Dose 2 MG; Start 10/20/16 at 13:00 Docusate Sodium (Colace) 100 mg Q12H PRN PO CONSTIPATION; Start 10/20/16 at 13: 00 Magnesium Hydroxide (Milk Of Mag) 30 ml DAILY PRN PO CONSTIPATION; Start at 13:00 Bisacodyl (Dulcolax Supp) 10 mg DAILY PRN [place] CONSTIPATION; Start 10/20/16 at 13: 00 Pantoprazole (Protonix Iv) 40 mg DAILY@06 IV Last administered on 10/21/16t 06: 11; Admin Dose 40 MG; Start 10/21/16 at 06:00 Nitroglycerin (Nitroglycerin (Sl Tab) 0.4 Mg) 1 tab Q5M PRN SL CHEST PAIN; Start 10/20/16 at 13:00 Miscellaneous Information 1 ea NOTE XX ; Start 10/20/16 at 13:30 Glucose (Glutose) 15 gm Q15M PRN PO DECREASED GLUCOSE; Start 10/20/16 at 13:30 Glucose (Glutose) 22.5 gm Q15M PRN PO DECREASED GLUCOSE; Start 10/20/16 at 13:30 Dextrose (D50w Syringe) 25 ml Q15M PRN IV DECREASED GLUCOSE; Start 10/20/16 at 13:30 Dextrose (D50w Syringe) 50 ml Q15M PRN IV DECREASED GLUCOSE; Start 10/20/16 at 13:30 Glucagon (Glucagen) 1 mg Q15M PRN IM DECREASED GLUCOSE; Start 10/20/16 at 13:30 Glucose (Glutose) 15 gm Q15M PRN BUCC[place] DECREASED GLUCOSE; Start 10/20/16 at 13: 30 RASHAAD RIOS Oct 21, 2016 12:29
--- NOTE | 2016-10-21 15:46 | RADRPT ---
PROCEDURE: Nuclear medicine myocardial stress and rest scan. CLINICAL INDICATION: Chest pain. TECHNIQUE: The patient was stressed with 0.4 mg IV Lexiscan. 10 mCi technetium 99m Tetrofosmin ( Myoview) was administered rest. 30 mCi technetium 99m Tetrofosmin (Myoview) was administered duri ng stress. Images were obtained and reconstructed in the short axis, horizontal long axis, and vert ical long axis. Gated images were obtained and ejection fraction was calculated. COMPARISON: No prior study is available for comparison. FINDINGS: The stress and rest images demonstrate normal uptake throughout. There is no fixed abnormality or r eversible abnormality. There is no evidence of transient ischemic dilatation. Wall motion is normal. There is normal wall thickening during systole. Ejection fraction at stress is 56%. IMPRESSION: 1. No evidence of stress induced myocardial ischemia. 2. Ejection fraction at stress is 56%. RPTAT: QQ .Jonathan Shipman MD, MD Date Time Electronically viewed and signed by .Jonathan Shipman MD, on 10/21/2016 15:46 .R/
[2016-10-21] MEDS: morphine 2 MG INJ IV PRN (17:17)
[2016-10-21] MEDS: ATORVASTATIN 20 MG TAB PO SCH (21:06)
[2016-10-22 00:23] VITALS: PULSE 76
[2016-10-22] MEDS: morphine 2 MG INJ IV PRN (01:12)
[2016-10-22 04:19] VITALS: PULSE 75
[2016-10-22 04:25] VITALS: BP 165/77; RESP 18
[2016-10-22] MEDS: PANTOPRAZOLE 40 MG INJ IV SCH (06:47)
[2016-10-22 07:23] VITALS: BP 133/68; RESP 18
[2016-10-22] MEDS: INSULIN GLARGINE [LANtus] 3 ML PEN SC SCH (08:00)
[2016-10-22] MEDS: INSULIN ASPART [NOVOLOG] 3 ML PEN SC SCH ×2 (08:02→08:03)
[2016-10-22] MEDS: ASPIRIN 81 MG TAB PO SCH (08:03)
[2016-10-22] MEDS: GABAPENTIN 300 MG CAP PO SCH (08:04)
[2016-10-22] MEDS: METOPROLOL 25 MG TAB PO SCH (08:04)
[2016-10-22] MEDS: HYDROCORTISONE 2.5% 20 GM CR TOP SCH (08:07)
[2016-10-22 08:09] VITALS: PULSE 75
--- NOTE | 2016-10-22 09:02 | PDOCDIS ---
Discharge Instructions DIAGNOSIS Discharge Diagnosis: 1. Chest pain 2. Type 2 diabetes 2. Essential hypertension 4. Obesity CONDITION Patient Condition: Stable HOME CARE INSTRUCTIONS: Diet Instructions: Low Fat /CholesterolSpecial Diet: 1800-calorie ACTIVITY: Activity Restrictions: Slowly Increase Activity Rest between Activity FOLLOW UP/APPOINTMENTS Appointments 1. Follow-up with your primary care provider within a week 2. Follow-up with your senior java programmer in 1-2 weeks RASHAAD RIOS Oct 22, 2016 09:01
[2016-10-22] MEDS ORDERED: PANT40TA3 PO (09:04)
[2016-10-22] MEDS ORDERED: TRAM50TA2 PO (09:04)
[2016-10-22] MEDS ORDERED: POLYETHYLENE GLYCOL 17 GM PACKET PO ONE (09:30)
[2016-10-22] MEDS ORDERED: LACTULOSE 30ML CUP PO ONE (09:30)
[2016-10-22] MEDS ORDERED: SENN-53 PO (09:31)
[2016-10-22] MEDS ORDERED: DOCU-144 PO (09:31)
[2016-10-22] MEDS: metFORMIN (XR) 500 MG TAB PO SCH (09:33)
--- NOTE | 2016-10-25 | DS ---
DATE OF ADMISSION: 10/20/2016 DATE OF DISCHARGE: 10/22/2016 CONSULTANTS: 1. Dr. Eddi Taylor 2. Dr. Guillaume Tang DISCHARGE DIAGNOSES: 1. Chest pain. 2. Type 2 diabetes. 3. Essential hypertension. 4. Morbid obesity. 5. Reported chronic cough, likely secondary to gastroesophageal reflux disease. 6. Dyslipidemia. 7. History of cerebrovascular accident. HOSPITAL COURSE: This is a 60-year-old male with history of type 2 diabetes and hypertension and as thma, recent stroke in 07/2016, obesity, hypertension who came to [facility] due t o reports of chest pain. Of note, the patient was recently admitted on 10/17/2016 due to chest pain and discharged on 10/18/2016. At that time, he had serial troponins drawn that were all essentiall y negative. His A1c also was noted at 10.0, and he had an echocardiogram done then with an ejection fraction of 65% with stage I diastolic dysfunction. He was initially ruled out for ACS. However, 1 day after he was discharged, he started again to have chest pain on the morning of 10/20/2016 and subsequently went to [facility] for further evaluation. He did have a CTA of his chest done. That was negative for any pulmonary emboli. There was, however, incidental finding of right middle lobe 7 mm noncalcified pulmonary nodule. He was advised to follow up as outpatient for this issue. He was seen by basic acoustic analyst during this time due to his reported chest pain again. He did have again also serial troponins drawn which were all essentially negative. The patient did un dergo a Lexiscan stress test which did show him to have an ejection fraction at stress at 56% with n o evidence of stress-induced myocardial ischemia. Suspect chest pain likely musculoskeletal versus chronic. The patient did improve during his stay. He did report resolution of his chest pain. He was otherwise optimized medically. He was continued on insulin for his diabetes and antihypertensiv es for his hypertension. He was advised about weight reduction for his morbid obesity, and we did c ontinue him on PPI medication for his likely GERD and chronic cough. He was also resumed on statin for dyslipidemia. During his course of stay, he did improve. The plan of care was discussed with cisco kelley, and patient did verbalize his understanding. On the day of discharge, the patient was in st able condition. Discharge physical exam and vital signs are stable. CONDITION: Stable. DISCHARGE PLAN: 1. Diet is low fat, low cholesterol, 1800 calorie. 2. Activity is slow to increase and to rest between activity. 3. The patient to follow up with primary care provider within a week. 4. The patient to follow up with his basic acoustic analyst in 1 to 2 weeks. DISCHARGE MEDICATIONS: 1. Colace 100 mg p.o. b.i.d. 2. Protonix 40 mg p.o. b.i.d. 3. Senna 1 tablet p.o. b.i.d. as needed for constipation. 4. Tramadol 50 mg p.o. 6 hours as needed for pain. 5. Aspirin 81 mg p.o. daily. 6. Atorvastatin 40 mg p.o. at bedtime. 7. Benazepril 40 mg p.o. daily. 8. Neurontin 600 mg p.o. b.i.d. 9. Fried[place] 10/325 one tablet p.o. q.6 hours for pain. 10. Hydrocortisone topically applied b.i.d. 11. Insulin NovoLog 15 units subQ before meals. 12. Lantus 55 units subQ daily. 13. Metformin 1000 mg p.o. b.i.d. 14. Metoprolol tartrate 25 mg p.o. b.i.d. DISCHARGE PROCESS TIME: 40 minutes. Discussed plan of care with Dr. Rivero. Dictated By: RASHAAD TORRES/SOFIYA Conf#: [id number] DID#: [id number]
== END 2016-10-22 11:15 | disposition home or self-care (01) | DRG 313 ==
LOC: E/R 08:11 → TEL 10:46
PROVIDERS: ADMIT Hospitalist; ATTEND Hospitalist
DX: R07.9 Chest pain, unspecified (principal); E87.5 Hyperkalemia; I10 Essential (primary) hypertension; R73.9 Hyperglycemia, unspecified; E11.9 Type 2 diabetes mellitus without complications; E66.9 Obesity, unspecified; Z68.30 Body mass index [BMI] 30.0-30.9, adult; R05 Cough; K21.9 Gastro-esophageal reflux disease without esophagitis; Z86.73 Personal history of transient ischemic attack (TIA), and cerebral infarction without residual deficits
CPT/HCPCS: 36415; 71010; 71275; 78452; 80048; 80053; 80061; 82550; 82553; 82962; 83036; 83735; 84100; 84132; 84436; 84479; 84484; 85025; 85610; 85730; 92610; 93005; 93017; 96374; 96375; A9500; A9505; C9113; J0610; J1815; J2270; J2785; J7030; J7040; Q9967

== ENCOUNTER 2017-03-13 23:56 | Emergency (ER) | payer OTHER ==
[~2017-03-13] VITALS: Ht 160 cm; Wt 87.5 kg
[~2017-03-13 23:56] MED LIST changes: +DOCU-144 PO; +PANT40TA3 PO; +SENN-53 PO; +TRAM50TA2 PO
[2017-03-13 23:57] VITALS: Ht 160 cm; Wt 87.5 kg
[2017-03-14] MEDS ORDERED: HYDROCODONE/APAP (5/325) TAB PO ONE (01:00)
[2017-03-14] MEDS ORDERED: CLIN-73 PO (01:28)
[2017-03-14] MEDS ORDERED: SULF1TAB31 PO (01:28)
[2017-03-14] MEDS ORDERED: HYDR-906 PO (01:28)
--- NOTE | 2017-03-14 01:28 | RADRPT ---
PROCEDURE: X-ray left foot CLINICAL INDICATION: Left great toe soft tissue ulcer TECHNIQUE: 3 views left foot COMPARISON: Left foot plain film series dated 06/05/2016. FINDINGS: Soft tissue swelling is new over the left great toe over interval. Soft tissue ulceration may be pre sent at the lateral aspect of the left great toe. No plain film evidence of osteomyelitis, and MRI examination may be of further use. No acute fracture. IMPRESSION: No plain film evidence of osteomyelitis, and MRI examination may be of further use. RPTAT: [facility] Physician Shaheen Date Time Electronically viewed and signed by Physician Shaheen on 03/14/2017 01:28 RS/
--- NOTE | 2017-03-14 01:46 | RADRPT ---
PROCEDURE: ULTRASOUND LEFT LOWER EXTREMITY VENOUS CLINICAL INDICATION: 61-year-old male with left lower extremity pain and swelling. TECHNIQUE: Multiple sonographic images of the left lower extremity deep venous system was obtained utilizing grayscale, color-flow, compressive sonography and doppler imaging with augmentation. The images were reviewed on a PACS workstation. COMPARISON: Bilateral lower extremity venous ultrasound February 16, 2016. FINDINGS: There is normal compressibility and flow within the left common femoral, deep femoral, superficial f emoral, popliteal, posterior tibial and peroneal veins. IMPRESSION: No sonographic evidence for left lower extremity deep venous thrombosis. .Truong Reich MD, MD Date Time Electronically viewed and signed by .Truong Reich MD, MD on 03/14/2017 01:46 .Marichuy/
[2017-03-14 01:48] VITALS: BP 139/65; PULSE 72; RESP 18
--- NOTE | 2017-03-14 01:48 | ERD ---
ER Documentation Chief Complaint Date/Time DATE: 03/14/17 TIME: 01:40 Chief Complaint DM FOOT ULCER X 1 DAY W/ PAIN. LT LEG BURNING. COUGH X YEARS HPI 61-year-old male with history of type 2 diabetes is complaining of left leg pain 1 day. Patient stated that he notice ulcer under his left big toe today. He reports feeling burning type of pain on his entire left lower leg. Denies recent trauma. Denies fever or chills. Denies shortness of breath. Patient also complaining of cough times many years. Patient stated that he has seen his PCP regarding this cough, and had received CT scan in the past. Cough is nonproductive. Denies shortness of breath. Denies fever or chills. Denies night sweats or unexplained weight loss. ROS All systems reviewed and are negative except as per history of present illness. Medications Home Meds Active Scripts Clindamycin Hcl* (Clindamycin Hcl*) 300 Mg Capsule, 300 MG PO TID for 10 Days, CAP Prov:VAISHALI MUNIZ NP 03/14/17 Sulfamethoxazole/Trimethoprim* (Bactrim Ds* Tablet) 1 Each Tablet, 1 TAB PO BID for 7 Days, #14 TAB Prov:VAISHALI MUNIZ. FINISH INSPECTOR 03/14/17 Hydrocodone/Acetaminophen ([place] 5-325 Tablet) 1 Each Tablet, 1 TAB PO Q6H Y for PAIN, #20 TAB Prov:VAISHALI MUNIZ. FINISH INSPECTOR 03/14/17 Docusate Sodium* (Colace*) 100 Mg Capsule, 100 MG PO BID, #60 CAP Prov:RASHAAD RIOS 10/22/16 Sennosides* (Senna Lax*) 8.6 Mg Tablet, 1 TAB PO Q12H Y for CONSTIPATION, #40 TAB Prov:RASHAAD RIOS 10/22/16 Tramadol HCl (Tramadol HCl) 50 Mg Tablet, 50 MG PO Q6H Y for PAIN, #20 TAB Prov:RASHAAD RIOS 10/22/16 Pantoprazole* (Protonix*) 40 Mg Tablet.dr, 40 MG PO BID for 30 Days, TAB Prov:REGRASHAAD CARRIZALES 10/22/16 Insulin Aspart (Novolog) 100 Unit/1 Ml Cartridge, 15 UNIT SQ BEFORE MEALS for 30 Days, 3 Refills Prov:FOX JAVED S. 10/18/16 Atorvastatin Calcium (Atorvastatin Calcium) 20 Mg Tablet, 40 MG PO HS for 30 Days, TAB 1 Refill Prov:FOX JAVED S. 10/18/16 Metoprolol Tartrate* (Lopressor*) 25 Mg Tab, 25 MG PO BID for 30 Days, #30 TAB 2 Refills Prov:WISAM QUEEN MD 08/14/16 Gabapentin* (Neurontin*) 600 Mg Tablet, 600 MG PO BID, #60 TAB Prov:RYLAN NOBLE DO 06/05/16 Hydrocodone/Acetaminophen ([place] 10-325 Tablet) 1 Each Tablet, 1 TAB PO Q6H Y for PAIN, #20 TAB Prov:RYLAN NOBLE DO 06/05/16 Reported Medications Benazepril Hcl* (Lotensin*) 40 Mg Tablet, 40 MG PO DAILY 12/16/13 Aspirin (Aspirin) 81 Mg Chew, 81 MG PO DAILY 12/16/13 Hydrocortisone* Topical (Hydrocortisone* Topical) 1 Applic Cr, 28.35 APPLIC TOP BID 12/16/13 Metformin Hcl* (Metformin Hcl* ER) 1,000 Mg Tab.er.24, 1000 MG PO BID 12/16/13 Insulin Glargine* (Lantus*) 100 Unit/Ml Soln, 55 UNIT SC DAILY 12/16/13 Allergies Allergies: Coded Allergies: No Known Allergy (Unverified , 10/20/16) PMhx/Soc History of type 2 diabetes. History of Surgery: Yes (cataract,hernia reapir) Anesthesia Reaction: No Hx Neurological Disorder: Yes (cva 07/2016, neuropathy) Hx Respiratory Disorders: Yes (lung mass) Hx Cardiac Disorders: Yes (htn) Hx Psychiatric Problems: No Hx Miscellaneous Medical Probl: No Hx Alcohol Use: No Hx Substance Use: No Hx Tobacco Use: No Smoking Status: Never smoker Physical Exam Vitals Vital Signs Date Time Temp Pulse Resp B/P Pulse Ox O2 Delivery O2 Flow Rate FiO2 03/13/17 23:57 99.8 81 22 101/60 94 Physical Exam General: Well-developed, well-nourished, conscious and coherent, in no distress Skin: Warm and dry without rash, good texture and turgor Head: Normocephalic without evidence of trauma Eyes: Sclera and conjunctivae normal; pupils equal, round, and reactive to light; extraocular movements are intact Chest: Normal AP diameter. Good expansion without retractions. Nontender. Lungs are clear to auscultate bilaterally with good tidal volume Heart: Regular rate and rhythm. No murmur, rub, or gallops heard Abdomen: Soft and nontender without masses, guarding, or rebound. Bowel sounds are active. No hepatosplenomegaly Back: Without spinal or CVA tenderness Pelvis: Nontender to palpation and stable to compression Extremities: Full range of motion. Good strength bilaterally. No clubbing, cyanosis, or edema. Peripheral pulses are intact. Sensation intact. A 2 cm size ulcer noted on the ventral aspect the left big toe, minimal stage II appearing. Left ankle erythematous and mildly swollen, warm to touch, tender. No calf tenderness. Neuro: Alert and oriented 4, GCS 15. Cranial nerves grossly intact. Motor and sensory exams nonfocal. Moves all extremities. Speech clear. Gait normal Results 24 hrs Current Medications Medications (Trade) Dose Ordered Sig/Patricia Route PRN Reason Start Time Stop Time Status Last Admin Dose Admin Acetaminophen/ Hydrocodone Bitart ([place] (5/325)) 1 tab ONCE ONCE PO 03/14/17 01:00 03/14/17 01:01 DC 03/14/17 01:13 Trimethoprim/ Sulfamethoxazole (Bactrim (Ds)) 1 tab ONCE ONCE PO 03/14/17 02:00 03/14/17 02:01 Clindamycin HCl (Cleocin) 300 mg ONCE ONCE PO 03/14/17 02:00 03/14/17 02:01 PROCEDURE: X-ray left foot CLINICAL INDICATION: Left great toe soft tissue ulcer TECHNIQUE: 3 views left foot COMPARISON: Left foot plain film series dated 06/05/2016. FINDINGS: Soft tissue swelling is new over the left great toe over interval. Soft tissue ulceration may be present at the lateral aspect of the left great toe. No plain film evidence of osteomyelitis, and MRI examination may be of further use. No acute fracture. IMPRESSION: No plain film evidence of osteomyelitis, and MRI examination may be of further use. RPTAT: UU R Physician Red Date Time Electronically viewed and signed by Cristina Moon Physician on 03/14/2017 01:28 RS/ CC: VAISHALI MUNIZ FINISH INSPECTOR Procedures/MDM 61-year-old male with history of type 2 diabetes and other multiple comorbidities presented to ED with diabetic foot ulcer on his left big toe. Patient was given [place] 5/325 in the ED for pain. Patient reports pain relief after [place] per Doppler ultrasound was obtained to rule out DVT. Preliminary report indicated compressible veins throughout, no sign of DVT. Official report pending. X-ray was also obtained to rule out osteomyelitis, no sign of osteomyelitis is seen on x-ray. Patient likely have an infected diabetic foot ulcer. Clindamycin and Bactrim DS p.o. given to the patient in the ED. Patient given referral to amputation prevention center for wound care follow- up. Patient appears well, stable for discharge and outpatient management. Medical decision making shared with patient and family. Education provided to patient and family. Patient and family expressed understanding of the plan. Medications on discharge: Bactrim DS, clindamycin, [place]. Follow-up: [facility]putation prevention center tomorrow or return to ED if worse. The case was reviewed and discussed with Dr. Knight, who agrees with the plan of care including labs, treatment, and advanced imaging as appropriate. Disclaimer: Inadvertent spelling and grammatical errors are likely due to EHR/ dictation software use and do not reflect on the overall quality of patient care. Also, please note that the electronic time recorded on this note does not necessarily reflect the actual time of the patient encounter. Departure Diagnosis: Primary Impression: Diabetic foot ulcer Diabetic foot ulcer location: toe Diabetes mellitus type: type 2 Laterality : left Non-pressure ulcer stage: unspecified non-pressure ulcer stage Qualified Code: E11.621 - Diabetic ulcer of toe of left foot associated with type 2 diabetes mellitus, unspecified ulcer stage Additional Impression: Cellulitis Site of cellulitis: extremity Site of cellulitis of extremity: lower extremity Laterality: left Qualified Code: L03.116 - Cellulitis of left lower extremity Condition: Stable Patient Instructions: Diabetic Foot Ulcers Referrals: [facility] Additional Instructions: Por favor siga con [facility] larisa. Tataame al doctor MAANA y kaiden zaira AKUA PARA DENTRO DE 2-3 MEJIA.Dgale a la secretaria que nosotros le instruimos hacer esta akua.Avise o llame si page condicin se empeora antes de la akua. Regresa aqui si peor o no mejor. VAISHALI MUNIZ. YISEL Mar 14, 2017 01:48
[2017-03-14] MEDS ORDERED: CLINDAMYCIN 300 MG CAP PO ONE (02:00)
[2017-03-14] MEDS ORDERED: TRIMETHOPRIM/SULFAMETHOX (DS) TAB PO ONE (02:00)
[2017-03-15] MEDS ORDERED: ACAR25TA8 PO (09:56)
[2017-03-15] MEDS ORDERED: ERGO2000 PO (09:57)
[2017-03-15] MEDS ORDERED: VALS80TA2 PO (09:57)
[2017-03-15] MEDS ORDERED: SITA1TAB5 PO (09:57)
[2017-03-15] MEDS ORDERED: AMLO5TAB4 PO (09:58)
[2017-03-15] MEDS ORDERED: INSU100C SQ (10:02)
[2017-03-15] MEDS ORDERED: LANT3I SC (10:03)
== END 2017-03-14 02:00 | disposition home or self-care (01) ==
LOC: FTE 23:56
DX: E11.621 Type 2 diabetes mellitus with foot ulcer (principal); I10 Essential (primary) hypertension; L97.529 Non-pressure chronic ulcer of other part of left foot with unspecified severity; L03.116 Cellulitis of left lower limb; Z79.4 Long term (current) use of insulin; Z79.82 Long term (current) use of aspirin; Z79.84 Long term (current) use of oral hypoglycemic drugs
CPT/HCPCS: 73630; 93971; Z7610

== ENCOUNTER 2017-03-15 06:47 | Inpatient (IN) | payer OTHER ==
[~2017-03-15] VITALS: Ht 172.7 cm; Wt 88.0 kg
[2017-03-15] VITALS (7 sets, daily range): BP systolic 105–176; BP diastolic 60–80; PULSE 18–104; RESP 18–22; TEMP 99.1; Ht 172.7 cm; Wt 88.0 kg
[~2017-03-15 06:47] MED LIST changes: +CLIN-73 PO; +HYDR-906 PO; +SULF1TAB31 PO
[2017-03-15] MEDS ORDERED: CLINDAMYCIN 900 MG/D5W (PMX) 50 ML IVPB STA (07:19)
[2017-03-15] MEDS ORDERED: VANCOMYCIN 1 GM (PMX) 250 ML IVPB STA (07:19)
[2017-03-15] MEDS ORDERED: ACETAMINOPHEN 325 MG TAB PO STA (07:19)
[2017-03-15] MEDS ORDERED: HYDROmorphONE 1 MG/ML SYG IV STA ×2 (07:19→09:27)
[2017-03-15] MEDS ORDERED: PIPER-TAZO 3.375 GM IV (PMX) 100 ML IVPB STA (07:19)
[2017-03-15] MEDS ORDERED: SODIUM CHLORIDE 0.9% 1L BAG IV* STA (07:19)
[2017-03-15] MEDS ORDERED: ONDANSETRON 4 MG INJ IV STA (07:19)
--- NOTE | 2017-03-15 07:59 | ERA ---
ER Documentation Chief Complaint Date/Time DATE: 03/15/17 TIME: 07:56 Chief Complaint lt foot diabetic ulcer , vomiting , fever , cough HPI This is a 61-year-old Thai-speaking male who presents with multiple complaints. The patient was seen here 2 days ago diagnosed with a diabetic ulcer to the left great toe and started on Bactrim and clindamycin. The patient describes worsening pain and swelling to the left foot now with associated fever. He also describes pain over the entirety of his body and also shortness of breath which she describes as difficulty taking a deep breath then. Patient had a negative duplex several days ago as well. Patient states compliance with his medications. 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 No chest pain or pleuritic pain. ROS All systems reviewed and are negative except as per history of present illness. Medications Home Meds Active Scripts Hydrocodone/Acetaminophen ([place] 5-325 Tablet) 1 Each Tablet, 1 TAB PO Q6H Y for PAIN, #20 TAB Prov:VAISHALI MUNIZ SPRING CLIPPER 03/14/17 Reported Medications Insulin Glargine* (Lantus*) 100 Unit/Ml Soln, 15 UNIT SC BID, #1 VIAL 03/15/17 Insulin Lispro (Humalog) 100 Unit/1 Ml Cartridge, 15 UNIT SQ BID 03/15/17 Amlodipine Besylate* (Norvasc*) 5 Mg Tablet, 5 MG PO DAILY, TAB 03/15/17 Valsartan* (Diovan*) 80 Mg Tablet, 80 MG PO DAILY, TAB 03/15/17 Sitagliptin Phos/Metformin HCl (Janumet 50-1,000 mg Tablet) 1 Each Tablet, 1 EACH PO BID, TAB 03/15/17 Ergocalciferol (Vitamin D2) (VITAMIN D2) 2,000 Unit Tablet, 2000 UNIT PO DAILY, TAB 03/15/17 Acarbose* (Precose*) 25 Mg Tablet, 25 MG PO WITH MEALS, TAB 03/15/17 Discontinued Reported Medications Benazepril Hcl* (Lotensin*) 40 Mg Tablet, 40 MG PO DAILY 12/16/13 Aspirin (Aspirin) 81 Mg Chew, 81 MG PO DAILY 12/16/13 Hydrocortisone* Topical (Hydrocortisone* Topical) 1 Applic Cr, 28.35 APPLIC TOP BID 12/16/13 Metformin Hcl* (Metformin Hcl* ER) 1,000 Mg Tab.er.24, 1000 MG PO BID 12/16/13 Insulin Glargine* (Lantus*) 100 Unit/Ml Soln, 55 UNIT SC DAILY 12/16/13 Discontinued Scripts Clindamycin Hcl* (Clindamycin Hcl*) 300 Mg Capsule, 300 MG PO TID for 10 Days, CAP Prov:VAISHALI MUNIZ SPRING CLIPPER 03/14/17 Sulfamethoxazole/Trimethoprim* (Bactrim Ds* Tablet) 1 Each Tablet, 1 TAB PO BID for 7 Days, #14 TAB Prov:VAISHALI MUNIZ SPRING CLIPPER 03/14/17 Docusate Sodium* (Colace*) 100 Mg Capsule, 100 MG PO BID, #60 CAP Prov:REGALEXANDRERRASHAAD 10/22/16 Sennosides* (Senna Lax*) 8.6 Mg Tablet, 1 TAB PO Q12H Y for CONSTIPATION, #40 TAB Prov:RASHAAD RIOS 10/22/16 Tramadol HCl (Tramadol HCl) 50 Mg Tablet, 50 MG PO Q6H Y for PAIN, #20 TAB Prov:RASHAAD RIOS 10/22/16 Pantoprazole* (Protonix*) 40 Mg Tablet.dr, 40 MG PO BID for 30 Days, TAB Prov:RASHAAD RIOS 10/22/16 Insulin Aspart (Novolog) 100 Unit/1 Ml Cartridge, 15 UNIT SQ BEFORE MEALS for 30 Days, 3 Refills Prov:FOX JAVED S. 10/18/16 Atorvastatin Calcium (Atorvastatin Calcium) 20 Mg Tablet, 40 MG PO HS for 30 Days, TAB 1 Refill Prov:FOX JAVED 10/18/16 Metoprolol Tartrate* (Lopressor*) 25 Mg Tab, 25 MG PO BID for 30 Days, #30 TAB 2 Refills Prov:WISAM QUEEN MD 08/14/16 Gabapentin* (Neurontin*) 600 Mg Tablet, 600 MG PO BID, #60 TAB Prov:RYLAN NOBLE DO 06/05/16 Hydrocodone/Acetaminophen ([place] 10-325 Tablet) 1 Each Tablet, 1 TAB PO Q6H Y for PAIN, #20 TAB Prov:RYLAN NOBLE DO 06/05/16 Allergies Allergies: Coded Allergies: No Known Allergy (Unverified , 03/15/17) PMhx/Soc History of Surgery: Yes (cataract,hernia reapir) Anesthesia Reaction: No Hx Neurological Disorder: Yes (cva 07/2016, neuropathy) Hx Respiratory Disorders: Yes (lung mass) Hx Cardiac Disorders: Yes (htn) Hx Psychiatric Problems: No Hx Miscellaneous Medical Probl: No Hx Alcohol Use: No Hx Substance Use: No Hx Tobacco Use: No Smoking Status: Former smoker FmHx Family History: diabetes Physical Exam Vitals Vital Signs Date Time Temp Pulse Resp B/P Pulse Ox O2 Delivery O2 Flow Rate FiO2 03/15/17 09:25 99.9 03/15/17 09:16 97 23 119/72 97 Nasal Cannula 4.0 03/15/17 07:50 100.0 98 24 145/70 96 Nasal Cannula 4.0 03/15/17 07:50 Nasal Cannula 3 03/15/17 06:51 101.6 106 18 104/56 96 Physical Exam General: Obese, slightly uncomfortable Head: Normocephalic, atraumatic. Eyes: Pupils equally reactive, EOM intact ENT: Moist mucous membranes Neck: Supple, no lymphadenopathy Respiratory: Lungs clear bilaterally, no distress Cardiovascular: RRR, no murmurs, rubs, or gallops Abdominal: Soft, non-tender, non-distended, no peritoneal signs : Deferred MSK: The patient's left lower extremity has erythema warmth and tenderness to the dorsum of the left foot and majority of the great toe with ulceration on the volar aspect of the great toe, soft compartments, 2+ dorsalis pedis pulses. Neurologic: Alert and oriented, moving all extremities, normal speech, no focal weakness, no cerebellar signs Skin: As noted above Psych: Normal mood Result Diagram: 03/15/17 0730 03/15/17 0730 Results 24 hrs Laboratory Tests Test 03/15/17 07:30 White Blood Count 12.310^3/ul Red Blood Count 4.3910^6/ul Hemoglobin 13.7g/dl Hematocrit 40.7% Mean Corpuscular Volume 92.7fl Mean Corpuscular Hemoglobin 31.2pg Mean Corpuscular Hemoglobin Concent 33.7g/dl Red Cell Distribution Width 12.5% Platelet Count 32665^3/UL Mean Platelet Volume 10.4fl Neutrophils % 89.8% Lymphocytes % 4.1% Monocytes % 4.4% Eosinophils % 0.2% Basophils % 0.6% Nucleated Red Blood Cells % 0.0/100WBC Neutrophils # 11.110^3/ul Lymphocytes # 0.510^3/ul Monocytes # 0.510^3/ul Eosinophils # 0.010^3/ul Basophils # 0.110^3/ul Nucleated Red Blood Cells # 0.010^3/ul Erythrocyte Sedimentation Rate 100.0mm/Hr Prothrombin Time 13.2Sec Prothrombin Time Ratio 1.0 INR International Normalized Ratio 1.00 Activated Partial Thromboplast Time 28.6Sec Sodium Level 137mmol/L Potassium Level 4.3mmol/L Chloride Level 98mmol/L Carbon Dioxide Level 24mmol/L Anion Gap 19 Blood Urea Nitrogen 13mg/dl Creatinine 1.30mg/dl Glucose Level 274mg/dl Lactic Acid Level 1.6mmol/L Calcium Level 8.9mg/dl Total Bilirubin 0.4mg/dl Direct Bilirubin 0.00mg/dl Indirect Bilirubin 0.4mg/dl Aspartate Amino Transf (AST/SGOT) 14IU/L Alanine Aminotransferase (ALT/SGPT) 21IU/L Alkaline Phosphatase 135IU/L Troponin I 0.016ng/ml C-Reactive Protein 19.1mg/dl B-Type Natriuretic Peptide 1440PG/ML Total Protein 7.3g/dl Albumin 3.6g/dl Globulin 3.70g/dl Albumin/Globulin Ratio 0.97 Current Medications Medications (Trade) Dose Ordered Sig/Patricia Route PRN Reason Start Time Stop Time Status Last Admin Dose Admin Sodium Chloride (NS) 2,730 ml BOLUS OVER 2 HOURS STAT IV* 03/15/17 07:19 03/15/17 07:24 DC 03/15/17 07:40 Acetaminophen 650 mg 650 mg ONCE STAT PO 03/15/17 07:19 03/15/17 07:24 DC 03/15/17 07:49 Vancomycin HCl 250 ml @ 125 mls/hr ONCE STAT IVPB 03/15/17 07:19 03/15/17 09:18 DC 03/15/17 12:00 Clindamycin HCl/ Dextrose 50 ml @ 50 mls/hr ONCE STAT IVPB 03/15/17 07:19 03/15/17 08:18 DC 03/15/17 07:19 Piperacillin Sod/ Tazobactam Sod (Zosyn 3.375gm/ 100 ml (Pmx)) 100 ml @ 100 mls/hr ONCE STAT IVPB 03/15/17 07:19 03/15/17 08:18 DC 03/15/17 08:08 Hydromorphone HCl (Dilaudid) 0.5 mg ONCE STAT IV 03/15/17 07:19 03/15/17 07:24 DC 03/15/17 07:47 Ondansetron HCl (Zofran Inj) 4 mg ONCE STAT IV 03/15/17 07:19 03/15/17 07:24 DC 03/15/17 07:47 Hydromorphone HCl (Dilaudid) 0.5 mg ONCE STAT IV 03/15/17 09:27 03/15/17 09:28 DC 03/15/17 11:09 Procedures/MDM EKG, MONITORS, & DIAGNOSTIC IMAGING: EKG: I reviewed and interpreted a 12-lead EKG. Rhythm: Normal sinus rhythm Ectopy: None Intervals: No abnormalities ST segments: No elevations or depressions T waves: No contiguous inversions X-ray left toe IMPRESSION: 1. Diffuse soft tissue swelling with no underlying acute fracture, dislocation , or radiographic findings to suggest osteomyelitis. Pre post contrast MRI can be performed for further evaluation. RPTAT: GG LAB INTERPRETATION: Increasing ESR and CRP, normal lactic acid MEDICAL DECISION MAKING: The patient presents with an infection to the left great toe that is concerning for worsening diabetic ulcer. The patient needs sepsis screening, broad- spectrum antibiotics given failure of outpatient therapy. ER COURSE: The patient was given antipyretics, vancomycin, Zosyn, clindamycin. Patient was written for 30/kg bolus but was held given no evidence of severe sepsis or septic shock. The patient's shortness of breath is nonspecific and improving. The hospitalist requested a CTPA which shows no evidence of pulmonary embolism. I kept the patient and/or family informed of laboratory and diagnostic imaging results throughout the emergency room course. DISPOSITION PLAN: Medical surgical admission for management of infected diabetic foot ulcer CONSULTATION: Accepting care team and consultations: I discussed the current laboratory data, diagnostic imaging and emergency care provided. Admitting team: Dr. Cornejo Admitting team indication: Insurance directed Departure Diagnosis: Primary Impression: Diabetic foot ulcer Qualified Code: E11.621 - Diabetic ulcer of toe of left foot associated with type 2 diabetes mellitus, with fat layer exposed Additional Impressions: Sepsis Qualified Code: A41.9 - Sepsis, due to unspecified organism Shortness of breath Condition: Stable DARCIE SKINNER MD Mar 15, 2017 07:59
[2017-03-15 08:03] LABS: ABNORMAL IP MESSAGE 1; BASOPHIL # 0.1 10^3/ul (0.0-0.1); BASOPHILS % 0.6 % (0.0-2.0); EOSINOPHILS % 0.2 % (0.0-7.0); HEMATOCRIT 40.7 % (42.0-52.0); HEMOGLOBIN 13.7 g/dl (14.0-18.0); LYMPHOCYTES # 0.5 10^3/ul (0.8-2.9); LYMPHOCYTES % 4.1 % (15.0-51.0); MEAN CORPUSCULAR HEMOGLOBIN 31.2 pg (29.0-33.0); MEAN CORPUSCULAR HGB CONC 33.7 g/dl (32.0-37.0); MEAN CORPUSCULAR VOLUME 92.7 fl (82.0-101.0); MEAN PLATELET VOLUME 10.4 fl (7.4-10.4); MONOCYTE # 0.5 10^3/ul (0.3-0.9); MONOCYTES % 4.4 % (0.0-11.0); NEUTROPHIL # 11.1 10^3/ul (1.6-7.5); NEUTROPHILS % 89.8 % (39.0-77.0); PLATELET COUNT 296 10^3/UL (140-415); POSITIVE DIFF @See below; RED BLOOD COUNT 4.39 10^6/ul (4.70-6.10); RED CELL DISTRIBUTION WIDTH 12.5 % (11.5-14.5); WHITE BLOOD COUNT 12.3 10^3/ul (4.8-10.8)
--- NOTE | 2017-03-15 08:13 | RADRPT ---
PROCEDURE: XR Chest. CLINICAL INDICATION: Possible Sepsis TECHNIQUE: Single frontal view of the chest was obtained COMPARISON: Chest x-ray 10/20/2016 and CTA chest 10/20/2016 FINDINGS: The cardiac silhouette is mildly enlarged. There are atherosclerotic calcifications of the thoracic aorta. There is bibasilar atelectasis. No pneumothorax, pleural effusion, or parenchymal consolidation is identified. The 7 mm nodule in the anterior right middle lobe seen on prior CT chest of 10/20/2016 is not defini tely visualized on the current study and may be obscured by overlapping structures. There is no significant pulmonary vascular congestion. There are degenerative changes of the visualized spine. IMPRESSION: 1. No evidence of acute cardiopulmonary process. 2. Mild bibasilar atelectasis. 3. Mild cardiomegaly. 4. Thoracic aortic atherosclerotic disease. 5.. The 7 mm nodule in the anterior right middle lobe seen on prior CT chest of 10/20/2016 is not de finitely visualized on the current study and may be obscured by overlapping structures. A follow-up CT chest is suggested. RPTAT: PP Physician Obed Date Time Electronically viewed and signed by Physician Obed on 03/15/2017 08:12 /
[2017-03-15 08:15] LABS: PROTIME 13.2 Sec (12.2-14.2)
[2017-03-15 08:16] LABS: PARTIAL THROMBOPLASTIN TIME 28.6 Sec (25.0-35.0)
--- NOTE | 2017-03-15 08:22 | RADRPT ---
PROCEDURE: XR left toes. CLINICAL INDICATION: Ulcer. There is a question of osteomyelitis. TECHNIQUE: Two views of the left great toe are available for review. COMPARISON: Exam dated 06/05/2016. FINDINGS: There is no acute fracture, dislocation, or other osteoarticular abnormality. The alignment is norm al. There is edema within the soft tissues of the first digit. There is no abnormal lytic or scler otic change of the bones. There is no radiopaque foreign body. IMPRESSION: 1. Diffuse soft tissue swelling with no underlying acute fracture, dislocation, or radiographic fin dings to suggest osteomyelitis. Pre post contrast MRI can be performed for further evaluation. RPTAT: GG .Ben Rojas MD, MD Date Time Electronically viewed and signed by .Ben Rojas MD, on 03/15/2017 08:21 .P/
[2017-03-15 08:36] LABS: ALBUMIN 3.6 g/dl (3.3-4.9); ALBUMIN/GLOBULIN RATIO 0.97; BILIRUBIN,INDIRECT 0.4 mg/dl (0-1.1); BILIRUBIN,TOTAL 0.4 mg/dl (0.2-1.3); CALCIUM 8.9 mg/dl (8.4-10.2); CREATININE 1.3 mg/dl (0.61-1.24); POTASSIUM 4.3 mmol/L (3.5-5.1); TOTAL PROTEIN 7.3 g/dl (6.1-8.1)
[2017-03-15 08:45] LABS: TROPONIN-I 0.016 ng/ml (0.00-0.12)
[2017-03-15 08:53] LABS: C-REACTIVE PROTEIN 19.1 mg/dl (0.0-0.9)
[2017-03-15] MEDS ORDERED: ACAR25TA8 PO (09:56)
[2017-03-15] MEDS ORDERED: VALS80TA2 PO (09:57)
[2017-03-15] MEDS ORDERED: SITA1TAB5 PO (09:57)
[2017-03-15] MEDS ORDERED: ERGO2000 PO (09:57)
[2017-03-15] MEDS ORDERED: AMLO5TAB4 PO (09:58)
[2017-03-15] MEDS ORDERED: ACETAMINOPHEN 325 MG TAB PO PRN (10:00)
[2017-03-15] MEDS ORDERED: ONDANSETRON 4 MG INJ IV PRN ×2 (10:00→11:00)
[2017-03-15] MEDS ORDERED: INSU100C SQ (10:02)
[2017-03-15] MEDS ORDERED: LANT3I SC (10:03)
[2017-03-15] MEDS ORDERED: SOD CHLORIDE 0.9% 100 ML ONE (10:20)
[2017-03-15] MEDS ORDERED: IODIXANOL LOCM 50 ML BTL ONE (10:20)
[2017-03-15] MEDS ORDERED: IODIXANOL LOCM 100 ML BTL ONE (10:20)
--- NOTE | 2017-03-15 10:53 | RADRPT ---
PROCEDURE: CTA Chest and pulmonary angiogram. CLINICAL INDICATION: Chest pain and shortness of breath. Cough. TECHNIQUE: CT scan of the chest and CT pulmonary angiogram was performed on a multidetector high-r Reelationolution CT scanner. High-resolution thin slice coronal and sagittal imaging was obtained from the axial source images. 3-D volumetric rendered post processing was performed as well. The patient w as examined following the uncomplicated intravenous administration of 115 cc of Visipaque 320 IV con trast. The images were reviewed on a PACS workstation. The total exam CTDI equals 42.25, 19.15 mGy, and the total exam DLP equals 759.91 mGy-cm. One or more of the following dose reduction techniques were used: - Automated exposure control. - Adjustment of the mA and/or kV according to patient size. - Use of iterative reconstruction technique. COMPARISON: CT chest 10/20/2016 FINDINGS: CT chest: There is a tiny 6.5 mm solid solitary homogeneous micronodule in the anteromedial right upper lung a djacent to the right anterior pleural margin, not calcified nor cavitated and too small to character ize. A benign inflammatory micronodule is most likely. However, follow-up over time is advised. T his is stable when compared to the prior CTA chest. No focal infiltrate, effusion, pneumothorax, or edema is seen. The central tracheobronchial tree is clear. The mediastinum is unremarkable without evidence for mass or lymphadenopathy. The vascular structur es of the mediastinum are normal in course and caliber. The heart size is normal without pericardia l thickening or effusion. Abundant coronary artery atherosclerotic vascular calcifications are iden tified. The axillary, subpectoral, and supraclavicular regions are unremarkable. The surrounding c hest wall is unremarkable. Imaging obtained through the upper abdomen is equally unremarkable. The adrenal glands are symmetrically normal. The osseous structures are unremarkable on this study. CT pulmonary angiogram: No thrombus, clot, filling defect, or pulmonary web is identified. The pulmonary arteries are mariella l in caliber and morphology. No filling defect is present to suggest pulmonary embolism. There is no evidence for pulmonary arterial hypertension. IMPRESSION: 1. Negative CT pulmonary angiogram. No evidence for pulmonary embolism. 2. Tiny 6.5 mm micronodule in the anteromedial right upper lobe. 6 month to 1-year follow-up scan is advised (as per Fleischner Society guidelines v2017) to ensure stability over time. 3. Vascular calcifications consistent with atherosclerosis. 4. Overall similar appearances when compared to the prior study. RPTAT: HMJB .Urbano St MD, Date Time Electronically viewed and signed by .Urbano St MD, on 03/15/2017 10:53 .B/
[2017-03-15] MEDS ORDERED: DOCUSATE SODIUM 100 MG CAP PO PRN (11:00)
[2017-03-15] MEDS ORDERED: ACETAMINOPHEN 650 MG SUPP PR PRN (11:00)
[2017-03-15] MEDS ORDERED: NACL 0.9% 3 ML SYG IV SCH (11:00)
[2017-03-15] MEDS ORDERED: GLUCAGON 1 MG INJ IM PRN (11:30)
[2017-03-15] MEDS ORDERED: GLUCOSE GEL 15 GRAM TUBE PO PRN ×2 (11:30)
[2017-03-15] MEDS ORDERED: GLUCOSE GEL 15 GRAM TUBE BUCCAL PRN (11:30)
[2017-03-15] MEDS: INSULIN ASPART [NOVOLOG] 3 ML PEN SC SCH ×5 (11:30→20:27)
[2017-03-15] MEDS ORDERED: DEXTROSE 50% 50 ML SYRINGE IV PRN ×2 (11:30)
[2017-03-15] MEDS ORDERED: INSULIN ASPART [NOVOLOG] 3 ML PEN SC SCH (12:00)
[2017-03-15] MEDS ORDERED: VANCOMYCIN 1 GM (PMX) 250 ML IVPB ONE (12:30)
[2017-03-15] MEDS ORDERED: VANCOMYCIN IV PER PHARMACY XX SCH (12:30)
[2017-03-15 12:42] LABS: AADO2 Arterial 86.1 mmHg (7.0-24.0); Allen Test ACCEPTAB; Arterial Base Excess -2.4 mmol/L (-3.0-3); Arterial COHb 0.7 % (0.0-3.0); Arterial Fraction of Oxyhgb 92.5 % (93.0-99.0); Arterial HCO3 21.3 mmol/L (22.0-26.0); Arterial MetHb 0 % (0.0-1.5); Arterial Total Hemglobin 13.8 g/dl (12.0-18.0); MODE NASAL CANNULA
[2017-03-15] MEDS: morphine 2 MG INJ IV PRN ×3 (12:48→23:48)
[2017-03-15] MEDS ORDERED: SOD CHLORIDE 0.9% 1,000 ML IV ONE (13:00)
--- NOTE | 2017-03-15 13:27 | CONS ---
Date/Time of Note Date/Time of Note DATE: 03/15/17 TIME: 13:26 Consultation Date/Type/Reason Admit Date/Time Mar 15, 2017 at 09:42 Type of Consultation: ID Reason for Consultation Antibiotic management of diabetic foot Social History Smoking Status: Former smoker Exam/Review of Systems Vital Signs Vitals Vital Signs Date Time Temp Pulse Resp B/P Pulse Ox O2 Delivery O2 Flow Rate FiO2 03/15/17 12:45 100.6 18 22 176/80 93 Nasal Cannula 03/15/17 10:47 2.0 Results Result Diagram: 03/15/17 0730 03/15/17 0730 Results 24 hrs Laboratory Tests Test 03/15/17 07:30 03/15/17 10:43 03/15/17 11:45 03/15/17 12:12 White Blood Count 12.3 #H Red Blood Count 4.39 L Hemoglobin 13.7 L Hematocrit 40.7 L Mean Corpuscular Volume 92.7 Mean Corpuscular Hemoglobin 31.2 Mean Corpuscular Hemoglobin Concent 33.7 Red Cell Distribution Width 12.5 Platelet Count 296 # Mean Platelet Volume 10.4 Neutrophils % 89.8 H Lymphocytes % 4.1 L Monocytes % 4.4 Eosinophils % 0.2 Basophils % 0.6 Nucleated Red Blood Cells % 0.0 Neutrophils # 11.1 H Lymphocytes # 0.5 L Monocytes # 0.5 Eosinophils # 0.0 Basophils # 0.1 Nucleated Red Blood Cells # 0.0 Erythrocyte Sedimentation Rate 100.0 H Prothrombin Time 13.2 Prothrombin Time Ratio 1.0 INR International Normalized Ratio 1.00 Activated Partial Thromboplast Time 28.6 Sodium Level 137 Potassium Level 4.3 Chloride Level 98 Carbon Dioxide Level 24 Anion Gap 19 H Blood Urea Nitrogen 13 Creatinine 1.30 H Glucose Level 274 H Lactic Acid Level 1.6 2.5 *H Calcium Level 8.9 Total Bilirubin 0.4 Direct Bilirubin 0.00 Indirect Bilirubin 0.4 Aspartate Amino Transf (AST/SGOT) 14 L Alanine Aminotransferase (ALT/SGPT) 21 Alkaline Phosphatase 135 H Troponin I 0.016 C-Reactive Protein 19.1 H B-Type Natriuretic Peptide 1440 H Total Protein 7.3 Albumin 3.6 Globulin 3.70 H Albumin/Globulin Ratio 0.97 Blood Gas Specimen Source Blood arterial Arterial Blood Date Drawn 03/15/2017 12:35:45 PM Arterial Blood pH (Temp corrected) 7.418 Arterial Blood pCO2 (Temp correct) 33.8 L Arterial Blood pO2 (Temp corrected) 66.4 L Arterial Blood HCO3 21.3 L Arterial Blood Base Excess -2.4 Arterial Blood Oxygen Saturation 93.2 L Demond Test ACCEPTAB Arterial Blood Gas Puncture Site Right Radial Arterial Blood Carboxyhemoglobin 0.7 Arterial Blood Methemoglobin 0 Blood Gas A-a O2 Differential 86.1 H Oxyhemoglobin Percent 92.5 L Total Hemoglobin 13.8 Blood Gas Temperature 37.0 Blood Gas Modality NASAL CANNULA FiO2 27.0 Blood Gas Notified Whom TM Blood Gas Notified Time 03/15/2017 12:42:23 PM Bedside Glucose 264 H Medications Medications Current Medications Amlodipine Besylate (Norvasc) 5 mg DAILY PO ; Start 03/16/17 at 09:00 Valsartan (Diovan) 80 mg DAILY PO ; Start 03/16/17 at 09:00; Status Future Hold Cholecalciferol (Vitamin D) 2,000 unit DAILY PO ; Start 03/15/17 at 11:30 Diagnostic Test (Pha) 1 ea 1 ea 02 XX ; Start 03/16/17 at 02:00 Piperacillin Sod/ Tazobactam Sod (Zosyn 3.375gm/ 100 ml (Pmx)) 100 ml @ 200 mls /hr Q6 IVPB ; Start 03/15/17 at 13:00 Insulin Glargine (Lantus) 18 unit HS SC ; Start 03/15/17 at 21:00 Linagliptin (Tradjenta) 5 mg DAILY PO ; Start 03/16/17 at 09:00 Hydralazine HCl 10 mg 10 mg Q6H PRN IV SBP>160; Start 03/15/17 at 11:00 Sodium Chloride (NS) 1,000 ml @ 125 mls/hr Q8H IV ; Start 03/15/17 at 11:00 Ondansetron HCl (Zofran Inj) 4 mg Q6H PRN IV NAUSEA AND/OR VOMITING; Start at 11:00 Acetaminophen (Tylenol Tab) 650 mg Q6H PRN PO PAIN LEVEL 1-3 OR FEVER; Start at 11:00 Acetaminophen (Tylenol Supp) 650 mg Q6H PRN OR PAIN LEVEL 1-3 OR FEVER; Start 03/15/17 at 11:00 Morphine Sulfate (morphine) 2 mg Q4H PRN IV SEVERE PAIN LEVEL 7-10 Last administered on 03/15/17 12:48; Admin Dose 2 MG; Start 03/15/17 at 11:00 Docusate Sodium (Colace) 100 mg Q12H PRN PO CONSTIPATION; Start 03/15/17 at 11: 00 Famotidine (Pepcid) 20 mg Q12 PO ; Start 03/15/17 at 21:00 Heparin Sodium (Porcine) (Heparin (5000 Units/0.5 ml)) 5,000 unit Q12 SC ; Start 03/15/17 at 21:00 Miscellaneous Information 1 ea NOTE XX ; Start 03/15/17 at 11:30 Glucose (Glutose) 15 gm Q15M PRN PO DECREASED GLUCOSE; Start 03/15/17 at 11:30 Glucose (Glutose) 22.5 gm Q15M PRN PO DECREASED GLUCOSE; Start 03/15/17 at 11: 30 Dextrose (D50w Syringe) 25 ml Q15M PRN IV DECREASED GLUCOSE; Start 03/15/17 at 11:30 Dextrose (D50w Syringe) 50 ml Q15M PRN IV DECREASED GLUCOSE; Start 03/15/17 at 11:30 Glucagon (Glucagen) 1 mg Q15M PRN IM DECREASED GLUCOSE; Start 03/15/17 at 11:30 Glucose 15 gm 15 gm Q15M PRN BUCCAL DECREASED GLUCOSE; Start 03/15/17 at 11:30 Vancomycin HCl 750 mg/Sodium Chloride 150 ml @ 75 mls/hr ONCE ONCE IVPB ; Start 03/15/17 at 14:00; Stop 03/15/17 at 15:59 Vancomycin HCl 750 mg/Sodium Chloride 150 ml @ 75 mls/hr Q12H IVPB ; Start at 10:00 Sodium Chloride (NS) 1,000 ml @ 1,000 mls/hr Q1H ONCE IV Last administered on 03/15/17 12:53; Admin Dose 1,000 MLS/HR; Start 03/15/17 at 13:00; Stop at 13:59 SREEKANTH ROQUE MD Mar 15, 2017 13:27
[2017-03-15] MEDS ORDERED: VANCOMYCIN 750 MG in SOD CHLORIDE 0.9% 150 ML IVPB ONE (14:00)
--- NOTE | 2017-03-15 14:13 | HP ---
Date/Time of Note Date/Time of Note DATE: 03/15/17 TIME: 14:12 Assessment/Plan VTE Prophylaxis VTE Prophylaxis Intervention: heparin Assessment/Plan Assessment/Plan This is a 61-year-old male who presented to the emergency room with worsening left great toe ulcer associated with fever and chills. 1. Infected left great toe diabetic foot ulcer. -Admit as inpatient to telemetry -Start patient on broad-spectrum IV antibiotics. -Obtain ID, podiatry and wound care consult -Obtain MRI left foot, venous and arterial duplex. 2. Severe sepsis with lactic acidosis secondary to #1. -Again, patient will need telemetry admission. -Aggressive fluid hydration, broad-spectrum antibiotics and pancultures. 3. Hypoxic respiratory failure most likely secondary to severe sepsis -Obtain ABG and start [id number] and PRN bronchodilators. -RT oxygen protocol, consider pulmonary if indicated. 4. Acute kidney injury likely secondary to severe sepsis. -Avoid nephrotoxins. Obtain nephrology consult and we will monitor renal function closely. 5. Hyperglycemia with type 2 diabetes. -Accu-Cheks/ISS/Lantus insulin. -Obtain A1c and diabetic education consult -Hold acarbose and metformin for now. 6. Essential hypertension. -Resume home medications 7. Morbid obesity. -Weight reduction and therapeutic lifestyle changes upon discharge. 8. Dyslipidemia. -Resume statin 9. PAD -Low-dose aspirin. 10. History of cerebrovascular accident. No present issues. 11.Tiny 6.5 mm micronodule in the anteromedial right upper lobe -Follow-up CT in one year recommended. Plan: Patient will be admitted to telemetry. He will be treated with sepsis protocol. We will follow-up with cultures. Patient will be kept full code. He will be started on a carbohydrate controlled diet. Rest of the management depend on clinical course, further studies and input from jd edwards consultant. Approximately 60 minutes was spent on this history and physical. Case discussed with Dr. merritt. HPI/ROS Admit Date/Time Admit Date/Time Mar 15, 2017 at 09:42 Hx of Present Illness This is a 61-year-old obese male with a past medical history of hypertension, CVA, lung mass, former smoker, dyslipidemia, type 2 diabetes, diabetic foot ulcers, peripheral vascular disease, peripheral neuropathy, who presented to the emergency room with primary complaint of worsening swelling and pain on left foot ulcer with persistent fever and chills. He also had generalized body pain, abdominal distention and shortness of breath. Apparently , patient was seen here at [facility] emergency room 2 days ago with left great toe ulcer and was sent home on Bactrim and clindamycin. However, he was not responding to oral antibiotic at home and his symptoms started to worsen and he decided to come back to the emergency room. Patient denied chest pain, loss of consciousness, dizziness, numbness, tingling, nausea , vomiting, dysuria, hematuria or other constitutional symptoms. He denied constipation or diarrhea. Patient also had a negative Lexiscan stress test study that was performed here at [facility] in 2017. Left toe x-ray showed Diffuse soft tissue swelling with no underlying acute fracture, dislocation, or radiographic findings to suggest osteomyelitis. A chest x-ray showed no evidence of acute cardiopulmonary process. A CT chest was negative for any pulmonary embolism. There was a tiny 6.5 mm micronodule on the right upper lobe which remained stable from prior study. Initial labs with elevated WBC 12,300, elevated creatinine 1.30, glucose 274, BNP 1440 and elevated alkaline phosphatase 135. Initial lactic acid 1.6. Patient was given clindamycin, Zosyn, Dilaudid and 2.7 L normal saline in the emergency room and was admitted for further evaluation. ROS A 12 point review of system was assessed and is negative other than what is mentioned in HPI. PMH/Family/Social Past Medical History See HPI Past Surgical History See HPI Social History Former smoker. Denies current alcohol, nicotine or illicit drug use. Smoking Status: Former smoker Exam/Review of Systems Vital Signs Vitals Vital Signs Date Time Temp Pulse Resp B/P Pulse Ox O2 Delivery O2 Flow Rate FiO2 03/15/17 12:45 100.6 18 22 176/80 93 Nasal Cannula 03/15/17 10:47 2.0 Exam Exam General: Obese male in mild to moderate distress with dyspnea and chills. HEENT: Normocephalic, Atraumatic, No laceration or hematoma; Eyes: PEERL, Conjunctiva clear, Anicteric sclera Neck: Supple without any lymphadenopathy, nontender, no JVD, no carotid bruits, trachea midline, no thyromegaly Cardiac: S1, S2 auscultated, regular rhythm and rate, no mumurs or gallop Pulmonary: Normal respiratory effort. Chest clear to auscultation bilaterally, no adventitious breath sounds GI: Abdomen distended to inspection. Non tender, non- distended, no masses, no rebound tenderness or guarding. Bowel sounds active on all four quadrants Genitourinary: Deferred Extremities: +Erythema /warmth/severe tenderness to the dorsum of the left foot Ulceration on left great toe. Pulses [1+] bilaterally. Full ROM on all four extremities. No focal weakness appreciated. Neurologic: Alert to person, place, time, and situation. Affect appropriate, intact sensation. Skin: Clean,dry, and intact. No ecchymosis, no rashes, or lesions Labs Result Diagram: 03/15/17 0703/15/17 07 Medications Medications Current Medications Amlodipine Besylate (Norvasc) 5 mg DAILY PO ; Start 03/16/17 at 09:00 Valsartan (Diovan) 80 mg DAILY PO ; Start 03/16/17 at 09:00; Status Future Hold Cholecalciferol (Vitamin D) 2,000 unit DAILY PO ; Start 03/15/17 at 11:30 Diagnostic Test (Pha) 1 ea 1 ea 02 XX ; Start 03/16/17 at 02:00 Piperacillin Sod/ Tazobactam Sod (Zosyn 3.375gm/ 100 ml (Pmx)) 100 ml @ 200 mls /hr Q6 IVPB ; Start 03/15/17 at 13:00 Insulin Glargine (Lantus) 18 unit HS SC ; Start 03/15/17 at 21:00 Linagliptin (Tradjenta) 5 mg DAILY PO ; Start 03/16/17 at 09:00 Hydralazine HCl 10 mg 10 mg Q6H PRN IV SBP>160; Start 03/15/17 at 11:00 Sodium Chloride (NS) 1,000 ml @ 125 mls/hr Q8H IV ; Start 03/15/17 at 11:00 Ondansetron HCl (Zofran Inj) 4 mg Q6H PRN IV NAUSEA AND/OR VOMITING; Start at 11:00 Acetaminophen (Tylenol Tab) 650 mg Q6H PRN PO PAIN LEVEL 1-3 OR FEVER; Start at 11:00 Acetaminophen (Tylenol Supp) 650 mg Q6H PRN [place] PAIN LEVEL 1-3 OR FEVER; Start 03/15/17 at 11:00 Morphine Sulfate (morphine) 2 mg Q4H PRN IV SEVERE PAIN LEVEL 7-10 Last administered on 03/15/17t 12:48; Admin Dose 2 MG; Start 03/15/17 at 11:00 Docusate Sodium (Colace) 100 mg Q12H PRN PO CONSTIPATION; Start 03/15/17 at 11: 00 Famotidine (Pepcid) 20 mg Q12 PO ; Start 03/15/17 at 21:00 Heparin Sodium (Porcine) (Heparin (5000 Units/0.5 ml)) 5,000 unit Q12 SC ; Start 03/15/17 at 21:00 Miscellaneous Information 1 ea NOTE XX ; Start 03/15/17 at 11:30 Glucose (Glutose) 15 gm Q15M PRN PO DECREASED GLUCOSE; Start 03/15/17 at 11:30 Glucose (Glutose) 22.5 gm Q15M PRN PO DECREASED GLUCOSE; Start 03/15/17 at 11: 30 Dextrose (D50w Syringe) 25 ml Q15M PRN IV DECREASED GLUCOSE; Start 03/15/17 at 11:30 Dextrose (D50w Syringe) 50 ml Q15M PRN IV DECREASED GLUCOSE; Start 03/15/17 at 11:30 Glucagon (Glucagen) 1 mg Q15M PRN IM DECREASED GLUCOSE; Start 03/15/17 at 11:30 Glucose 15 gm 15 gm Q15M PRN BUCCAL DECREASED GLUCOSE; Start 03/15/17 at 11:30 Vancomycin HCl 750 mg/Sodium Chloride 150 ml @ 75 mls/hr ONCE ONCE IVPB ; Start 03/15/17 at 14:00; Stop 03/15/17 at 15:59 Vancomycin HCl/ Sodium Chloride (Vancocin/NS) 150 ml @ 75 mls/hr Q12H IVPB ; Start 03/16/17 at 10:00 BRANDON HERRERA NP Mar 15, 2017 14:13
[2017-03-15] MEDS ORDERED: ALBUTEROL/IPRATROPIUM (NEB) 3 ML AMP HHN PRN (14:30)
[2017-03-15] MEDS: ACETAMINOPHEN 325 MG TAB PO PRN ×2 (15:24→23:48)
[2017-03-15] MEDS: PIPER-TAZO 3.375 GM IV (PMX) 100 ML IVPB SCH ×3 (15:24→23:47)
--- NOTE | 2017-03-15 15:25 | CONS ---
Date/Time of Note Date/Time of Note DATE: 03/15/17 TIME: 15:08 Assessment/Plan Assessment/Plan Chief Complaint/Hosp Course 61-year-old obese male with a past medical history of hypertension, CVA , lung mass, former smoker, dyslipidemia, type 2 diabetes, diabetic foot ulcers , peripheral vascular disease, peripheral neuropathy, - getting admitted for Infected left great toe diabetic foot ulcer.Renal has been consulted for Acute kidney injury. Problems: Additional Assessment/Plan 1. 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 Infected left great toe diabetic foot ulcer. 3. Severe sepsis with lactic acidosis 4. Hypoxic respiratory failure most likely secondary to severe sepsis 5. Type II DM 6. Hypertension 7. Hyperlpidemia Plan: Urine studies including Urine creatinine, UProt/cr ratio, Urine eosinophils, CK total , Uric acid IV abx as per ID BP stable will give IVF NS now will continue to follow up. Total time spent in pt evaluatin, assessment and plan and communicating with Nursing staff in ED is more than 60 minutes Consultation Date/Type/Reason Admit Date/Time Mar 15, 2017 at 09:42 Date of Consultation: Mar 15, 2017 Type of Consultation: NEPHROLOGY Reason for Consultation acute kidney injury Referring Provider: JOSÉ LILLY Constitutional: no complaints Past Medical History Medical History: diabetes, high cholesterol, hypertension, other (peripheral vascular disease, peripheral neuropathy ) Past Surgical History Past Surgical Hx: other (hernia repair, cataract repair ) Family History Significant Family History: no pertinent family hx Social History Alcohol Use: none Smoking Status: Former smoker Drug Use: none Exam/Review of Systems Vital Signs Vitals Vital Signs Date Time Temp Pulse Resp B/P Pulse Ox O2 Delivery O2 Flow Rate FiO2 03/15/17 14:14 104 03/15/17 12:45 100.6 22 176/80 93 Nasal Cannula 03/15/17 11:45 2.0 Exam Constitutional: alert Psych: no complaints Head: normocephalic Eyes: nl conjunctiva ENMT: nl external ears & nose Neck: supple Respiratory: clear to auscultation, diminished breath sounds Cardiovascular: regular rate and rhythm Gastrointestinal: soft Musculoskeletal: nl extremities to inspection Neurological: INDIRECT FIRE INFANTRYMAN II-XII intact, nl mental status, nl speech, nl strength Results Result Diagram: 03/15/17 0730 03/15/17 0730 Results 24 hrs Laboratory Tests Test 03/15/17 07:30 03/15/17 10:43 03/15/17 11:45 03/15/17 12:12 White Blood Count 12.3 #H Red Blood Count 4.39 L Hemoglobin 13.7 L Hematocrit 40.7 L Mean Corpuscular Volume 92.7 Mean Corpuscular Hemoglobin 31.2 Mean Corpuscular Hemoglobin Concent 33.7 Red Cell Distribution Width 12.5 Platelet Count 296 # Mean Platelet Volume 10.4 Neutrophils % 89.8 H Lymphocytes % 4.1 L Monocytes % 4.4 Eosinophils % 0.2 Basophils % 0.6 Nucleated Red Blood Cells % 0.0 Neutrophils # 11.1 H Lymphocytes # 0.5 L Monocytes # 0.5 Eosinophils # 0.0 Basophils # 0.1 Nucleated Red Blood Cells # 0.0 Erythrocyte Sedimentation Rate 100.0 H Prothrombin Time 13.2 Prothrombin Time Ratio 1.0 INR International Normalized Ratio 1.00 Activated Partial Thromboplast Time 28.6 Sodium Level 137 Potassium Level 4.3 Chloride Level 98 Carbon Dioxide Level 24 Anion Gap 19 H Blood Urea Nitrogen 13 Creatinine 1.30 H Glucose Level 274 H Lactic Acid Level 1.6 2.5 *H Calcium Level 8.9 Total Bilirubin 0.4 Direct Bilirubin 0.00 Indirect Bilirubin 0.4 Aspartate Amino Transf (AST/SGOT) 14 L Alanine Aminotransferase (ALT/SGPT) 21 Alkaline Phosphatase 135 H Troponin I 0.016 C-Reactive Protein 19.1 H B-Type Natriuretic Peptide 1440 H Total Protein 7.3 Albumin 3.6 Globulin 3.70 H Albumin/Globulin Ratio 0.97 Blood Gas Specimen Source Blood arterial Arterial Blood Date Drawn 03/15/2017 12:35:45 PM Arterial Blood pH (Temp corrected) 7.418 Arterial Blood pCO2 (Temp correct) 33.8 L Arterial Blood pO2 (Temp corrected) 66.4 L Arterial Blood HCO3 21.3 L Arterial Blood Base Excess -2.4 Arterial Blood Oxygen Saturation 93.2 L Demond Test ACCEPTAB Arterial Blood Gas Puncture Site Right Radial Arterial Blood Carboxyhemoglobin 0.7 Arterial Blood Methemoglobin 0 Blood Gas A-a O2 Differential 86.1 H Oxyhemoglobin Percent 92.5 L Total Hemoglobin 13.8 Blood Gas Temperature 37.0 Blood Gas Modality NASAL CANNULA FiO2 27.0 Blood Gas Notified Whom TM Blood Gas Notified Time 03/15/2017 12:42:23 PM Bedside Glucose 264 H Test 03/15/17 13:42 03/15/17 14:25 Bedside Glucose 291 H Lactic Acid Level 1.5 Medications Medications Current Medications Amlodipine Besylate (Norvasc) 5 mg DAILY PO ; Start 03/16/17 at 09:00 Valsartan (Diovan) 80 mg DAILY PO ; Start 03/16/17 at 09:00; Status Future Hold Cholecalciferol (Vitamin D) 2,000 unit DAILY PO ; Start 03/15/17 at 11:30 Diagnostic Test (Pha) 1 ea 1 ea 02 XX ; Start 03/16/17 at 02:00 Piperacillin Sod/ Tazobactam Sod (Zosyn 3.375gm/ 100 ml (Pmx)) 100 ml @ 200 mls /hr Q6 IVPB ; Start 03/15/17 at 13:00 Insulin Glargine (Lantus) 18 unit HS SC ; Start 03/15/17 at 21:00 Linagliptin (Tradjenta) 5 mg DAILY PO ; Start 03/16/17 at 09:00 Hydralazine HCl 10 mg 10 mg Q6H PRN IV SBP>160; Start 03/15/17 at 11:00 Sodium Chloride (NS) 1,000 ml @ 125 mls/hr Q8H IV ; Start 03/15/17 at 11:00 Ondansetron HCl (Zofran Inj) 4 mg Q6H PRN IV NAUSEA AND/OR VOMITING; Start at 11:00 Acetaminophen (Tylenol Tab) 650 mg Q6H PRN PO PAIN LEVEL 1-3 OR FEVER; Start at 11:00 Acetaminophen (Tylenol Supp) 650 mg Q6H PRN IN PAIN LEVEL 1-3 OR FEVER; Start 03/15/17 at 11:00 Morphine Sulfate (morphine) 2 mg Q4H PRN IV SEVERE PAIN LEVEL 7-10 Last administered on 03/15/17t 12:48; Admin Dose 2 MG; Start 03/15/17 at 11:00 Docusate Sodium (Colace) 100 mg Q12H PRN PO CONSTIPATION; Start 03/15/17 at 11: 00 Famotidine (Pepcid) 20 mg Q12 PO ; Start 03/15/17 at 21:00 Heparin Sodium (Porcine) (Heparin (5000 Units/0.5 ml)) 5,000 unit Q12 SC ; Start 03/15/17 at 21:00 Miscellaneous Information 1 ea NOTE XX ; Start 03/15/17 at 11:30 Glucose (Glutose) 15 gm Q15M PRN PO DECREASED GLUCOSE; Start 03/15/17 at 11:30 Glucose (Glutose) 22.5 gm Q15M PRN PO DECREASED GLUCOSE; Start 03/15/17 at 11: 30 Dextrose (D50w Syringe) 25 ml Q15M PRN IV DECREASED GLUCOSE; Start 03/15/17 at 11:30 Dextrose (D50w Syringe) 50 ml Q15M PRN IV DECREASED GLUCOSE; Start 03/15/17 at 11:30 Glucagon (Glucagen) 1 mg Q15M PRN IM DECREASED GLUCOSE; Start 03/15/17 at 11:30 Glucose 15 gm 15 gm Q15M PRN BUCCAL DECREASED GLUCOSE; Start 03/15/17 at 11:30 Vancomycin HCl 750 mg/Sodium Chloride 150 ml @ 75 mls/hr ONCE ONCE IVPB ; Start 03/15/17 at 14:00; Stop 03/15/17 at 15:59 Vancomycin HCl/ Sodium Chloride (Vancocin/NS) 150 ml @ 75 mls/hr Q12H IVPB ; Start 03/16/17 at 10:00 Aspirin (Aspirin) 81 mg DAILY PO ; Start 03/16/17 at 09:00 SCOTT LAU MD Mar 15, 2017 15:18
[2017-03-15] MEDS: CHOLECALCIFEROL 2,000 UNIT CAP PO SCH (15:30)
[2017-03-15] MEDS: SOD CHLORIDE 0.9% 1,000 ML IV SCH ×2 (15:30→20:46)
[2017-03-15] MEDS: ALBUTEROL/IPRATROPIUM (NEB) 3 ML AMP HHN SCH ×2 (17:00→21:03)
--- NOTE | 2017-03-15 17:38 | RADRPT ---
PROCEDURE: Ultrasound of the bilateral lower extremity venous system. CLINICAL INDICATION: Bilateral lower extremity pain. Rule out deep venous thrombosis. TECHNIQUE: Spivey scale with and without compression, color doppler, spectral doppler of the venous system of the bilateral lower extremities was performed. Venous augmentation maneuvers were utilized . COMPARISON: No prior studies are available for comparison. FINDINGS: RIGHT: Common femoral vein:Patent and compressible. Femoral vein:Patent and compressible. Popliteal vein:Patent and compressible. Visualized calf veins:Patent and compressible. Soft tissues:Normal LEFT: Common femoral vein:Patent and compressible. Femoral vein:Patent and compressible. Popliteal vein:Patent and compressible. Visualized calf veins:Patent and compressible. Soft tissues:There are reactive lymph nodes in the left inguinal region. The largest measuring 1. 0 centimeters in short axis dimension. IMPRESSION: 1. No evidence of deep vein thrombosis. RPTAT: [facility] Physician Santana Date Time Electronically viewed and signed by Physician Santana on 03/15/2017 17:38 /
--- NOTE | 2017-03-15 18:00 | RADRPT ---
PROCEDURE: XR abdomen series. CLINICAL INDICATION: Abdominal distention TECHNIQUE: AP abdomen x-rays COMPARISON: None. FINDINGS: The bowel gas pattern is normal. There is no evidence of obstruction. There are no abnormal calcific ations overlying the urinary tracts. There is no gross abnormal soft tissue mass. There are old anterior right rib deformities. There is contrast in the urinary bladder. IMPRESSION: Unremarkable abdomen radiograph. No evidence for small bowel obstruction. RPTAT: [facility] .Clark Guerrero MD, MD Date Time Electronically viewed and signed by .Clark Guerrero MD, MD on 03/15/2017 18:00 .T/
--- NOTE | 2017-03-15 18:21 | RADRPT ---
PROCEDURE: US bilateral lower extremity arteries. CLINICAL INDICATION: Bilateral leg pain. Nonhealing ulcer of the left toe. TECHNIQUE: Multiple longitudinal and transverse images of the bilateral lower extremity arteries w ere obtained with payton scale, pulsed Doppler, and color Doppler imaging. COMPARISON: No prior studies are available for comparison. FINDINGS: Right INJURY/SAFETY HAZARD ASSESSMENT:157 cm/sec PSFA:107 cm/sec MSFA:130 cm/sec DSFA:143 cm/sec POP:73 cm/sec TARRING MACHINE OPERATOR:92 cm/sec DPA:23 cm/sec Left INJURY/SAFETY HAZARD ASSESSMENT:135 cm/sec PSFA:106 cm/sec MSFA:143 cm/sec DSFA:134 cm/sec POP:98 cm/sec TARRING MACHINE OPERATOR:136 cm/sec DPA:121 cm/sec The right ankle-brachial index is 1.0 and the left ankle-brachial index is 1.1. The right first toe ankle-brachial index is 0.71 and the left first toe ankle-brachial index is 0.52 . There is normal triphasic flow throughout bilaterally. There is no stenosis or occlusion demonstrat ed. IMPRESSION: 1. Diminished left first toe ankle-brachial index which may indicate small vessel disease. 2. Otherwise normal bilateral lower extremity arterial Doppler. RPTAT: QQ .Jonathan Shipman MD, MD Date Time Electronically viewed and signed by .Jonathan Shipman MD, MD on 03/15/2017 18:21 .R/
--- NOTE | 2017-03-15 19:09 | CONS ---
DATE OF ADMISSION: 03/15/2017 DATE OF CONSULTATION: 03/15/2017 REASON FOR CONSULTATION: Antibiotic management. HISTORY OF PRESENT ILLNESS: The patient is a 61-year-old male, who was brought into the emergency room with diabetic foot ulcer, with nausea, vomiting, and fever. The patient was present 2 days prior to admission in the emergency room with a diabetic foot ulcer involving the left great toe. He was started on Bactrim and clindamycin. He has had worsening pain and swelling of the left foot with associated fever. He now describes pain over the entirety of his body and also shortness of breath, which he describes as difficulty in taking deep breaths. The patient had a negative duplex several days ago. PAST PROBLEMS: 1. Adult-onset diabetes mellitus. 2. Hypertension. 3. Peripheral neuropathy. 4. Status post cataract surgery and lens implant. 5. Status post hernia repair. 6. History of CVA in July,. 7. History of lung mass. 8. History of smoking in the past acutely. PHYSICAL EXAMINATION: VITAL SIGNS: The patient comes in with a temperature 101.6. SKIN: Skin without generalized rash. GENERAL: The patient is a well-developed, but obese, male, who is awake, responsive, somewhat uncomfortable, in no acute distress. HEENT: Within normal limits. NECK: Neck is supple. Lymph nodes nonpalpable. CHEST: Decreased breath sounds at the bases. HEART: Without murmur or gallop. ABDOMEN: Abdomen is soft, nontender, nondistended, without organosplenomegaly or masses. EXTREMITIES: Without cyanosis or clubbing. His left lower extremity has erythema, warmth and tenderness to the dorsum of the left foot and the majority of the great toe with ulceration on the volar aspect of the great toe. RECTAL/GENITAL: Deferred. NEUROLOGIC: Decreased sensation distal extremities. LABORATORY DATA: White count 12.3, hemoglobin and hematocrit of 13.7 and 40.7, platelet count 296,000. BUN and creatinine 13/1.30, glucose of 274 random. PLAN: Patient was started on vancomycin, clindamycin, and Zosyn. He is currently still in the emergency room. His lactic acid is 2.5. We are going to stop his clindamycin and continue the other antibiotics. I will dictate my findings to the hospitalist. Dictated By: Robert Gould MD JD/augusto/cornelius /Document#: [id number]
[2017-03-15] MEDS: FAMOTIDINE 20 MG TAB PO SCH (20:23)
[2017-03-15] MEDS: HEPARIN 5,000 UNIT/0.5 ML VIAL SC SCH (20:24)
[2017-03-15] MEDS ORDERED: INSULIN GLARGINE [LANtus] 3 ML PEN SC SCH ×2 (21:00)
[2017-03-15] MEDS ORDERED: NON-FORMULARY/PATIENT OWN MED (Sitagliptin Phos/Metformin HCl (Janumet 50-1,000 mg Tablet) PO SCH (21:00)
--- NOTE | 2017-03-15 23:55 | CONS ---
Date/Time of Note Date/Time of Note DATE: 03/15/17 TIME: 23:55 Assessment/Plan Assessment/Plan Problems: (1) Diabetic foot infection Status: Acute (2) Foot ulcer, right Status: Acute (3) Encounter for wound re-check Status: Acute (4) Abscess Status: Acute (5) Acute bronchitis Status: Acute (6) Peripheral edema Status: Acute (7) Hyperglycemia without ketosis Status: Acute (8) Shortness of breath Status: Acute (9) Sepsis Status: Acute Qualifiers: Qualified Code: A41.9 - Sepsis, due to unspecified organism (10) Diabetic foot ulcer Status: Acute Qualifiers: Qualified Code: E11.621 - Diabetic ulcer of toe of left foot associated with type 2 diabetes mellitus, with fat layer exposed Additional Assessment/Plan Patient has a history of chronic open wounds of the left foot involving the heel. He was able to close that wound successfully with multiple visits to the amputation prevention center. He has developed a new wound and significant infection of his left big toe. Patient is currently on IV antibiotics which she will continue. The MRI is not available yet for me to review. Patient most likely has osteomyelitis of the hallux which will be determined whether or not amputation will be the correct dose of treatment versus IV antibiotics and local wound care. Patient may also require hyperbaric oxygen treatments. For now, optimization of the lower extremity vascular supply is very important. Infectious disease recommendations are highly appreciated. I will follow patient in-house. Patient will be nonweightbearing on the left foot. Daily dressing changes with Santyl ointment to the wound will be ordered. Patient will be followed in-house. Thank you very much for involving me in the care of this patient. Consultation Date/Type/Reason Admit Date/Time Mar 15, 2017 at 09:42 Date of Consultation: Mar 15, 2017 Type of Consultation: Foot and ankle surgery Reason for Consultation Evaluation of open wound and infection of the left foot Hx of Present Illness Thank you very much for involving the care of this patient. As you very well know this is a 61-year-old male patient who presented to the emergency room with worsening left big toe ulceration and infection. Patient reports fever and chills. Patient has a history of open wound on the same foot but on the plantar heel which was treated successfully at the amputation prevention center. He reports that he does not have any sensation in his left foot and one day after work he came home and found that the toe was very swollen and red. He denies pain in the left foot and reports no trauma. Patient complains of fever and chills. Patient was started on broad-spectrum IV antibiotics and an MRI was ordered. I was consulted for evaluation and treatment. Constitutional: no complaints, No chills, No diaphoresis, No disoriented, No febrile, No improved, No other , No poor po, No requiring IVF, No requiring O2 ENT: No bleeding, No congestion, No discharge, No dysphagia, No no complaints, No other, No pain, No sore throat Respiratory: No cough, No no complaints, No other, No pain, No pleuritic pain, No shortness of breath, No sputum, No wheezing Cardiovascular: No chest pain, No edema, No lightheadedness, No no complaints, No orthopenea, No other, No palpitations, No paroxysmal nocturnal dyspnea Gastrointestinal: No blood, No constipation, No decreased appetite, No diarrhea , No flatus, No nausea, No no complaints, No other, No pain, No passing stool, No vomiting Psychological: no complaints Past Medical History As per history of present illness. Medical History: diabetes, high cholesterol, hypertension, other (peripheral vascular disease, peripheral neuropathy ) Past Surgical History As per HPI Past Surgical Hx: other (hernia repair, cataract repair ) Social History As per history of present illness. Alcohol Use: none Smoking Status: Former smoker Drug Use: none Exam/Review of Systems Vital Signs Vitals Vital Signs Date Time Temp Pulse Resp B/P Pulse Ox O2 Delivery O2 Flow Rate FiO2 03/15/17 21:06 79 22 98 Nasal Cannula 2.0 03/15/17 20:11 99.3 105/60 03/15/17 17:46 28 Exam Patient is morbidly obese laying supine in bed in no acute distress. Left hallux is edematous with erythema. There is an open wound on the plantar aspect of the big toe. There is purulent drainage noted. Mild malodor present with no bleeding. The area is nontender to palpation. Left second toe is missing the toenail and slightly erythematous as well. No other open wound noted. Plantar left heel wound is closed with no complication. Patient does not have an open wound on the right foot. Dorsalis pedis and posterior tibial pulses are nonpalpable. Protective sensation is decreased to sharp, dull, vibratory and temperature stimuli. Labs reviewed. Imaging reviewed. MRI is not available for review at this time. Results Result Diagram: 03/15/17 0730 03/15/17 0730 Results 24 hrs Laboratory Tests Test 03/15/17 07:30 03/15/17 10:43 03/15/17 11:45 03/15/17 12:12 White Blood Count 12.3 #H Red Blood Count 4.39 L Hemoglobin 13.7 L Hematocrit 40.7 L Mean Corpuscular Volume 92.7 Mean Corpuscular Hemoglobin 31.2 Mean Corpuscular Hemoglobin Concent 33.7 Red Cell Distribution Width 12.5 Platelet Count 296 # Mean Platelet Volume 10.4 Neutrophils % 89.8 H Lymphocytes % 4.1 L Monocytes % 4.4 Eosinophils % 0.2 Basophils % 0.6 Nucleated Red Blood Cells % 0.0 Neutrophils # 11.1 H Lymphocytes # 0.5 L Monocytes # 0.5 Eosinophils # 0.0 Basophils # 0.1 Nucleated Red Blood Cells # 0.0 Erythrocyte Sedimentation Rate 100.0 H Prothrombin Time 13.2 Prothrombin Time Ratio 1.0 INR International Normalized Ratio 1.00 Activated Partial Thromboplast Time 28.6 Sodium Level 137 Potassium Level 4.3 Chloride Level 98 Carbon Dioxide Level 24 Anion Gap 19 H Blood Urea Nitrogen 13 Creatinine 1.30 H Glucose Level 274 H Lactic Acid Level 1.6 2.5 *H Calcium Level 8.9 Total Bilirubin 0.4 Direct Bilirubin 0.00 Indirect Bilirubin 0.4 Aspartate Amino Transf (AST/SGOT) 14 L Alanine Aminotransferase (ALT/SGPT) 21 Alkaline Phosphatase 135 H Troponin I 0.016 C-Reactive Protein 19.1 H B-Type Natriuretic Peptide 1440 H Total Protein 7.3 Albumin 3.6 Globulin 3.70 H Albumin/Globulin Ratio 0.97 Blood Gas Specimen Source Blood arterial Arterial Blood Date Drawn 03/15/2017 12:35:45 PM Arterial Blood pH (Temp corrected) 7.418 Arterial Blood pCO2 (Temp correct) 33.8 L Arterial Blood pO2 (Temp corrected) 66.4 L Arterial Blood HCO3 21.3 L Arterial Blood Base Excess -2.4 Arterial Blood Oxygen Saturation 93.2 L Demond Test ACCEPTAB Arterial Blood Gas Puncture Site Right Radial Arterial Blood Carboxyhemoglobin 0.7 Arterial Blood Methemoglobin 0 Blood Gas A-a O2 Differential 86.1 H Oxyhemoglobin Percent 92.5 L Total Hemoglobin 13.8 Blood Gas Temperature 37.0 Blood Gas Modality NASAL CANNULA FiO2 27.0 Blood Gas Notified Whom TM Blood Gas Notified Time 03/15/2017 12:42:23 PM Bedside Glucose 264 H Test 03/15/17 13:42 03/15/17 14:25 03/15/17 17:12 03/15/17 20:21 Bedside Glucose 291 H 254 H 212 Lactic Acid Level 1.5 Medications Medications Current Medications Amlodipine Besylate (Norvasc) 5 mg DAILY PO ; Start 03/16/17 at 09:00 Valsartan (Diovan) 80 mg DAILY PO ; Start 03/16/17 at 09:00; Status Future Hold Cholecalciferol (Vitamin D) 2,000 unit DAILY PO ; Start 03/15/17 at 11:30 Diagnostic Test (Pha) 1 ea 1 ea 02 XX ; Start 03/16/17 at 02:00 Piperacillin Sod/ Tazobactam Sod (Zosyn 3.375gm/ 100 ml (Pmx)) 100 ml @ 200 mls /hr Q6 IVPB Last administered on 03/15/17 20:23; Admin Dose 200 MLS/HR; Start 03/15/17 at 13:00 Insulin Glargine (Lantus) 18 unit HS SC ; Start 03/15/17 at 21:00 Linagliptin (Tradjenta) 5 mg DAILY PO ; Start 03/16/17 at 09:00 Hydralazine HCl 10 mg 10 mg Q6H PRN IV SBP>160; Start 03/15/17 at 11:00 Sodium Chloride (NS) 1,000 ml @ 100 mls/hr Q10H IV Last administered on 15:30; Admin Dose 100 MLS/HR; Start 03/15/17 at 11:00 Ondansetron HCl (Zofran Inj) 4 mg Q6H PRN IV NAUSEA AND/OR VOMITING Last administered on 03/15/17 16:39; Admin Dose 4 MG; Start 03/15/17 at 11:00 Acetaminophen (Tylenol Tab) 650 mg Q6H PRN PO PAIN LEVEL 1-3 OR FEVER Last administered on 03/15/17 15:24; Admin Dose 650 MG; Start 03/15/17 at 11:00 Acetaminophen (Tylenol Supp) 650 mg Q6H PRN ID PAIN LEVEL 1-3 OR FEVER; Start 03/15/17 at 11:00 Morphine Sulfate (morphine) 2 mg Q4H PRN IV SEVERE PAIN LEVEL 7-10 Last administered on 03/15/17 16:39; Admin Dose 2 MG; Start 03/15/17 at 11:00 Docusate Sodium (Colace) 100 mg Q12H PRN PO CONSTIPATION; Start 03/15/17 at 11: 00 Famotidine (Pepcid) 20 mg Q12 PO Last administered on 03/15/17 20:23; Admin Dose 20 MG; Start 03/15/17 at 21:00 Heparin Sodium (Porcine) (Heparin (5000 Units/0.5 ml)) 5,000 unit Q12 SC Last administered on 03/15/17 20:24; Admin Dose 5,000 UNIT; Start 03/15/17 at 21:00 Miscellaneous Information 1 ea NOTE XX ; Start 03/15/17 at 11:30 Glucose (Glutose) 15 gm Q15M PRN PO DECREASED GLUCOSE; Start 03/15/17 at 11:30 Glucose (Glutose) 22.5 gm Q15M PRN PO DECREASED GLUCOSE; Start 03/15/17 at 11: 30 Dextrose (D50w Syringe) 25 ml Q15M PRN IV DECREASED GLUCOSE; Start 03/15/17 at 11:30 Dextrose (D50w Syringe) 50 ml Q15M PRN IV DECREASED GLUCOSE; Start 03/15/17 at 11:30 Glucagon (Glucagen) 1 mg Q15M PRN IM DECREASED GLUCOSE; Start 03/15/17 at 11:30 Glucose 15 gm 15 gm Q15M PRN BUCCAL DECREASED GLUCOSE; Start 03/15/17 at 11:30 Vancomycin HCl/ Sodium Chloride (Vancocin/NS) 150 ml @ 75 mls/hr Q12H IVPB ; Start 03/16/17 at 10:00 Aspirin (Aspirin) 81 mg DAILY PO ; Start 03/16/17 at 09:00 CHARLY ALVAREZ DPM Mar 15, 2017 23:55
[2017-03-16] VITALS (12 sets, daily range): BP systolic 143–176; BP diastolic 67–82; PULSE 83–98; RESP 17–20
[2017-03-16] MEDS: ACCU-CHEK XX SCH (02:59)
[2017-03-16 03:32] LABS: ADD UMIC YES; UR ASCORBIC ACID NEGATIVE (NEGATIVE); UR BACTERIA FEW /HPF (NONE SEEN); UR BILIRUBIN (Dip) NEGATIVE (NEGATIVE); UR BLOOD (Dip) NEGATIVE (NEGATIVE); UR CLARITY CLEAR (CLEAR); UR COLOR YELLOW (YELLOW); UR GLUCOSE (Dip) 2+ mg/dL (NEGATIVE); UR KETONES (Dip) TRACE mg/dL (NEGATIVE); UR LEUKOCYTE ESTERASE (Dip) NEGATIVE Leu/ul (NEGATIVE); UR NITRITE (Dip) NEGATIVE (NEGATIVE); UR RBC 2 /HPF (0-5); UR SPECIFIC GRAVITY (Dip) 1.017 (1.003-1.030); UR TOTAL PROTEIN (Dip) 2+ mg/dl (NEGATIVE); UR UROBILINOGEN (Dip) NEGATIVE (NEGATIVE)
[2017-03-16] MEDS: SOD CHLORIDE 0.9% 1,000 ML IV SCH ×2 (04:48→16:08)
[2017-03-16] MEDS: morphine 2 MG INJ IV PRN ×2 (05:28→11:11)
[2017-03-16] MEDS: PIPER-TAZO 3.375 GM IV (PMX) 100 ML IVPB SCH ×4 (05:29→23:45)
[2017-03-16 07:21] LABS: BASOPHILS % 0.5 % (0.0-2.0); HEMATOCRIT 40.3 % (42.0-52.0); HEMOGLOBIN 13.4 g/dl (14.0-18.0); LYMPHOCYTES # 0.9 10^3/ul (0.8-2.9); LYMPHOCYTES % 11.2 % (15.0-51.0); MEAN CORPUSCULAR HEMOGLOBIN 31.7 pg (29.0-33.0); MEAN CORPUSCULAR HGB CONC 33.3 g/dl (32.0-37.0); MEAN CORPUSCULAR VOLUME 95.3 fl (82.0-101.0); MEAN PLATELET VOLUME 9.9 fl (7.4-10.4); MONOCYTE # 0.4 10^3/ul (0.3-0.9); MONOCYTES % 5.5 % (0.0-11.0); NEUTROPHIL # 6.3 10^3/ul (1.6-7.5); NEUTROPHILS % 82.4 % (39.0-77.0); PLATELET COUNT 282 10^3/UL (140-415); RED BLOOD COUNT 4.23 10^6/ul (4.70-6.10); RED CELL DISTRIBUTION WIDTH 12.5 % (11.5-14.5); WHITE BLOOD COUNT 7.7 10^3/ul (4.8-10.8)
[2017-03-16] MEDS: ALBUTEROL/IPRATROPIUM (NEB) 3 ML AMP HHN SCH ×4 (08:24→20:50)
[2017-03-16 08:39] LABS: URIC ACID 3.6 mg/dl (3.1-7.9)
[2017-03-16] MEDS: INSULIN ASPART [NOVOLOG] 3 ML PEN SC SCH ×7 (08:39→21:23)
[2017-03-16] MEDS: HEPARIN 5,000 UNIT/0.5 ML VIAL SC SCH ×2 (08:40→21:22)
[2017-03-16] MEDS: ASPIRIN 81 MG TAB PO SCH (08:43)
[2017-03-16] MEDS: CHOLECALCIFEROL 2,000 UNIT CAP PO SCH (08:43)
[2017-03-16] MEDS: FAMOTIDINE 20 MG TAB PO SCH ×2 (08:43→21:18)
[2017-03-16] MEDS: LINAGLIPTIN 5 MG TABLET PO SCH (08:43)
[2017-03-16] MEDS: AMLODIPINE 5 MG TAB PO SCH (08:44)
[2017-03-16] MEDS: ACETAMINOPHEN 325 MG TAB PO PRN (08:52)
[2017-03-16] MEDS ORDERED: VALSARTAN 80 MG TAB PO SCH (09:00)
[2017-03-16 09:20] LABS: ALBUMIN 2.6 g/dl (3.3-4.9); ALBUMIN/GLOBULIN RATIO 0.96; BILIRUBIN,INDIRECT 0.2 mg/dl (0-1.1); BILIRUBIN,TOTAL 0.2 mg/dl (0.2-1.3); CALCIUM 7.8 mg/dl (8.4-10.2); CHOL/HDL RATIO 5.7 RATIO; CREATININE 0.94 mg/dl (0.61-1.24); MAGNESIUM 1.6 mg/dl (1.7-2.5); POTASSIUM 4.2 mmol/L (3.5-5.1); TOTAL PROTEIN 5.3 g/dl (6.1-8.1)
[2017-03-16] MEDS: VANCOMYCIN 750 MG in SOD CHLORIDE 0.9% 150 ML IVPB SCH ×2 (09:29→21:47)
--- NOTE | 2017-03-16 09:46 | PN ---
Date/Time of Note Date/Time of Note DATE: 03/16/17 TIME: 09:41 Assessment/Plan VTE Prophylaxis VTE Prophylaxis Intervention: heparin Lines/Catheters IV [facility]from [facility] Assessment/Plan Chief Complaint/Hosp Course 1. Infected left great toe diabetic foot ulcer. -Continue wound care, broad-spectrum IV antibiotics. -Pending MRI left foot. -Follow-up with ID and podiatry recommendations. 2. Severe sepsis with lactic acidosis secondary to #1. Improving. Blood culture growing group B strep. -Continue IV fluids, broad-spectrum antibiotics and follow-up pancultures. 3. Hypoxic respiratory failure most likely secondary to severe sepsis. Resolved. -Continue bronchodilators. 4. Acute kidney injury likely secondary to severe sepsis. -Avoid nephrotoxins and continue to monitor renal function closely. Follow-up with nephrology recommendations. 5. Hyperglycemia with type 2 diabetes. -Continue Accu-Cheks/ISS. Increase Lantus to 25 units and pre-meals to 8 units. -Hold acarbose and metformin for now. -Diabetic education consult has been requested and is pending. 6. Essential hypertension. -Continue antihypertensives. 7. Morbid obesity. -Weight reduction and therapeutic lifestyle changes upon discharge. 8. Dyslipidemia. -On statin 9. PAD -Low-dose aspirin. 10. History of cerebrovascular accident. No present issues. 11.Tiny 6.5 mm micronodule in the anteromedial right upper lobe -Follow-up CT in 6 months to one year recommended. DVT prophylaxis: Heparin PUD prophylaxis: Pepcid. Plan: Continue current medical management. Follow-up cultures. Follow-up with recommendations from consultants. Case discussed with Dr. merritt. Problems: Subjective 24 Hr Interval Summary Free Text/Dictation Today patient with no fever. Pain improved. Sitting up in bed. Exam/Review of Systems Vital Signs Vitals Vital Signs Date Time Temp Pulse Resp B/P Pulse Ox O2 Delivery O2 Flow Rate FiO2 03/16/17 08:00 98 03/16/17 07:58 99.0 20 149/67 92 03/15/17 21:06 Nasal Cannula 2.0 03/15/17 17:46 28 Intake and Output 03/15/17 03/15/17 03/16/17 15:00 23:00 07:00 Intake Total 2950 ml 1600 ml 900 ml Balance 2950 ml 1600 ml 900 ml Exam General: Obese male in no acute distress. HEENT: Normocephalic, Atraumatic, No laceration or hematoma; Eyes: PEERL, Conjunctiva clear, Anicteric sclera Neck: Supple without any lymphadenopathy, nontender, no JVD, no carotid bruits, trachea midline, no thyromegaly Cardiac: S1, S2 auscultated, regular rhythm and rate, no mumurs or gallop Pulmonary: Normal respiratory effort. Chest clear to auscultation bilaterally, no adventitious breath sounds GI: Abdomen obese, soft, Non tender, non- distended, no masses, no rebound tenderness or guarding. Bowel sounds active on all four quadrants Genitourinary: Deferred Extremities: +Erythema /warmth/severe tenderness to the dorsum of the left foot Ulceration on left great toe-erythema and tenderness improving. Pulses [1+] bilaterally. Full ROM on all four extremities. No focal weakness appreciated. Neurologic: Alert to person, place, time, and situation. Affect appropriate, intact sensation. Skin: Clean,dry, and intact. No ecchymosis, no rashes, or lesions Results Result Diagram: 03/16/17 0653 03/16/17 0654 Results 24 hrs Laboratory Tests Test 03/15/17 10:43 03/15/17 11:45 03/15/17 12:12 03/15/17 13:42 Blood Gas Specimen Source Blood arterial Arterial Blood Date Drawn 03/15/2017 12:35:45 PM Arterial Blood pH (Temp corrected) 7.418 Arterial Blood pCO2 (Temp correct) 33.8 L Arterial Blood pO2 (Temp corrected) 66.4 L Arterial Blood HCO3 21.3 L Arterial Blood Base Excess -2.4 Arterial Blood Oxygen Saturation 93.2 L Demond Test ACCEPTAB Arterial Blood Gas Puncture Site Right Radial Arterial Blood Carboxyhemoglobin 0.7 Arterial Blood Methemoglobin 0 Blood Gas A-a O2 Differential 86.1 H Oxyhemoglobin Percent 92.5 L Total Hemoglobin 13.8 Blood Gas Temperature 37.0 Blood Gas Modality NASAL CANNULA FiO2 27.0 Blood Gas Notified Whom TM Blood Gas Notified Time 03/15/2017 12:42:23 PM Lactic Acid Level 2.5 *H Bedside Glucose 264 H 291 H Test 03/15/17 14:25 03/15/17 17:12 03/15/17 20:21 03/16/17 02:00 Lactic Acid Level 1.5 Bedside Glucose 254 H 212 Urine Color YELLOW Urine Clarity CLEAR Urine pH 6.0 Urine Specific [place] 1.017 Urine Ketones TRACE A Urine Nitrite NEGATIVE Urine Bilirubin NEGATIVE Urine Urobilinogen NEGATIVE Urine Leukocyte Esterase NEGATIVE Urine Microscopic RBC 2 Urine Microscopic WBC 2 Urine Bacteria FEW A Urine Hemoglobin NEGATIVE Urine Glucose 2+ H Urine Total Protein 2+ H Test 03/16/17 02:11 03/16/17 06:53 03/16/17 06:54 03/16/17 08:22 Bedside Glucose 226 H 179 White Blood Count 7.7 # Red Blood Count 4.23 L Hemoglobin 13.4 L Hematocrit 40.3 L Mean Corpuscular Volume 95.3 Mean Corpuscular Hemoglobin 31.7 Mean Corpuscular Hemoglobin Concent 33.3 Red Cell Distribution Width 12.5 Platelet Count 282 Mean Platelet Volume 9.9 Neutrophils % 82.4 H Lymphocytes % 11.2 L Monocytes % 5.5 Eosinophils % 0.0 Basophils % 0.5 Nucleated Red Blood Cells % 0.0 Neutrophils # 6.3 Lymphocytes # 0.9 Monocytes # 0.4 Eosinophils # 0.0 Basophils # 0.0 Nucleated Red Blood Cells # 0.0 Sodium Level 136 Potassium Level 4.2 Chloride Level 102 Carbon Dioxide Level 21 Anion Gap 17 H Blood Urea Nitrogen 9 Creatinine 0.94 Glucose Level 195 Uric Acid 3.6 Calcium Level 7.8 L Phosphorus Level 3.0 Magnesium Level 1.6 L Total Bilirubin 0.2 Direct Bilirubin 0.00 Indirect Bilirubin 0.2 Aspartate Amino Transf (AST/SGOT) 26 # Alanine Aminotransferase (ALT/SGPT) 36 Alkaline Phosphatase 116 Creatine Kinase 86 Total Protein 5.3 #L Albumin 2.6 #L Globulin 2.70 Albumin/Globulin Ratio 0.96 Triglycerides Level 169 H Cholesterol Level 168 LDL Cholesterol, Calculated 105 HDL Cholesterol 29 L Cholesterol/HDL Ratio 5.7 Thyroid Stimulating Hormone (TSH) Pending Medications Medications Current Medications Amlodipine Besylate (Norvasc) 5 mg DAILY PO Last administered on 03/16/17 08: 44; Admin Dose 5 MG; Start 03/16/17 at 09:00 Valsartan (Diovan) 80 mg DAILY PO ; Start 03/16/17 at 09:00 Cholecalciferol (Vitamin D) 2,000 unit DAILY PO Last administered on 03/16/17 08:43; Admin Dose 2,000 UNIT; Start 03/15/17 at 11:30 Diagnostic Test (Pha) 1 ea 1 ea 02 XX Last administered on 03/16/17 02:59; Admin Dose 1 EA; Start 03/16/17 at 02:00 Piperacillin Sod/ Tazobactam Sod (Zosyn 3.375gm/ 100 ml (Pmx)) 100 ml @ 200 mls /hr Q6 IVPB Last administered on 03/16/17 05:29; Admin Dose 200 MLS/HR; Start 03/15/17 at 13:00 Linagliptin (Tradjenta) 5 mg DAILY PO Last administered on 03/16/17 08:43; Admin Dose 5 MG; Start 03/16/17 at 09:00 Hydralazine HCl 10 mg 10 mg Q6H PRN IV SBP>160; Start 03/15/17 at 11:00 Sodium Chloride (NS) 1,000 ml @ 100 mls/hr Q10H IV Last administered on 04:48; Admin Dose 100 MLS/HR; Start 03/15/17 at 11:00 Ondansetron HCl (Zofran Inj) 4 mg Q6H PRN IV NAUSEA AND/OR VOMITING Last administered on 03/15/17 16:39; Admin Dose 4 MG; Start 03/15/17 at 11:00 Acetaminophen (Tylenol Tab) 650 mg Q6H PRN PO PAIN LEVEL 1-3 OR FEVER Last administered on 03/16/17 08:52; Admin Dose 650 MG; Start 03/15/17 at 11:00 Acetaminophen (Tylenol Supp) 650 mg Q6H PRN [place] PAIN LEVEL 1-3 OR FEVER; Start 03/15/17 at 11:00 Morphine Sulfate (morphine) 2 mg Q4H PRN IV SEVERE PAIN LEVEL 7-10 Last administered on 03/16/17 05:28; Admin Dose 2 MG; Start 03/15/17 at 11:00 Docusate Sodium (Colace) 100 mg Q12H PRN PO CONSTIPATION; Start 03/15/17 at 11: 00 Famotidine (Pepcid) 20 mg Q12 PO Last administered on 03/16/17 08:43; Admin Dose 20 MG; Start 03/15/17 at 21:00 Heparin Sodium (Porcine) (Heparin (5000 Units/0.5 ml)) 5,000 unit Q12 SC Last administered on 03/16/17 08:40; Admin Dose 5,000 UNIT; Start 03/15/17 at 21:00 Miscellaneous Information 1 ea NOTE XX ; Start 03/15/17 at 11:30 Glucose (Glutose) 15 gm Q15M PRN PO DECREASED GLUCOSE; Start 03/15/17 at 11:30 Glucose (Glutose) 22.5 gm Q15M PRN PO DECREASED GLUCOSE; Start 03/15/17 at 11: 30 Dextrose (D50w Syringe) 25 ml Q15M PRN IV DECREASED GLUCOSE; Start 03/15/17 at 11:30 Dextrose (D50w Syringe) 50 ml Q15M PRN IV DECREASED GLUCOSE; Start 03/15/17 at 11:30 Glucagon (Glucagen) 1 mg Q15M PRN IM DECREASED GLUCOSE; Start 03/15/17 at 11:30 Glucose 15 gm 15 gm Q15M PRN BUCCAL DECREASED GLUCOSE; Start 03/15/17 at 11:30 Vancomycin HCl/ Sodium Chloride (Vancocin/NS) 150 ml @ 75 mls/hr Q12H IVPB Last administered on 03/16/17 09:29; Admin Dose 75 MLS/HR; Start 03/16/17 at 10 :00 Aspirin (Aspirin) 81 mg DAILY PO Last administered on 03/16/17 08:43; Admin Dose 81 MG; Start 03/16/17 at 09:00 Insulin Glargine (Lantus) 25 unit HS SC ; Start 03/16/17 at 21:00 BRANDON HERRERA NP Mar 16, 2017 09:46
--- NOTE | 2017-03-16 12:28 | CONS ---
Date/Time of Note Date/Time of Note DATE: 03/16/17 TIME: 12:26 Assessment/Plan Assessment/Plan Chief Complaint/Hosp Course 61-year-old obese male with a past medical history of hypertension, CVA , lung mass, former smoker, dyslipidemia, type 2 diabetes, diabetic foot ulcers , peripheral vascular disease, peripheral neuropathy, - getting admitted for Infected left great toe diabetic foot ulcer.Renal has been consulted for Acute kidney injury. Problems: Additional Assessment/Plan 1. 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 Infected left great toe diabetic foot ulcer. 3. Severe sepsis with lactic acidosis 4. Hypoxic respiratory failure most likely secondary to severe sepsis 5. Type II DM 6. Hypertension 7. Hyperlpidemia Plan: Urine studies unremarkable, Uric acid normal, Cr improved to normal, continue IVF hydration one more day IV abx as per ID, renally dose all abx, avoid Ibuprofen for pain control BP stable will continue to follow up. Consultation Date/Type/Reason Admit Date/Time Mar 15, 2017 at 09:42 Initial Consult Date 03/15/17 Type of Consultation: NEPHROLOGY Referring Provider: JOSÉ LILLY 24 HR Interval Summary Free Text/Dictation Cr improved ton normal, uric acid stable, c/o left foot great toe pain Exam/Review of Systems Vital Signs Vitals Vital Signs Date Time Temp Pulse Resp B/P Pulse Ox O2 Delivery O2 Flow Rate FiO2 03/16/17 12:09 97.8 89 17 154/75 94 03/16/17 08:30 Nasal Cannula 2.0 03/15/17 17:46 28 Intake and Output 03/15/17 03/15/17 03/16/17 15:00 23:00 07:00 Intake Total 2950 ml 1600 ml 900 ml Balance 2950 ml 1600 ml 900 ml Exam Constitutional: alert Psych: no complaints Head: normocephalic Eyes: nl conjunctiva ENMT: nl external ears & nose Neck: supple Respiratory: clear to auscultation, diminished breath sounds Cardiovascular: regular rate and rhythm Gastrointestinal: soft Musculoskeletal: nl extremities to inspection, left foot great toe ulcer with dressing on 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, nl mental status, nl speech, nl strength Results Result Diagram: 03/16/17 0653 03/16/17 0654 Results 24 hrs Laboratory Tests Test 03/15/17 13:42 03/15/17 14:25 03/15/17 17:12 03/15/17 20:21 Bedside Glucose 291 H 254 H 212 Lactic Acid Level 1.5 Test 03/16/17 02:00 03/16/17 02:11 03/16/17 06:53 03/16/17 06:54 Urine Color YELLOW Urine Clarity CLEAR Urine pH 6.0 Urine Specific [place] 1.017 Urine Ketones TRACE A Urine Nitrite NEGATIVE Urine Bilirubin NEGATIVE Urine Urobilinogen NEGATIVE Urine Leukocyte Esterase NEGATIVE Urine Microscopic RBC 2 Urine Microscopic WBC 2 Urine Bacteria FEW A Urine Hemoglobin NEGATIVE Urine Glucose 2+ H Urine Total Protein 2+ H Bedside Glucose 226 H White Blood Count 7.7 # Red Blood Count 4.23 L Hemoglobin 13.4 L Hematocrit 40.3 L Mean Corpuscular Volume 95.3 Mean Corpuscular Hemoglobin 31.7 Mean Corpuscular Hemoglobin Concent 33.3 Red Cell Distribution Width 12.5 Platelet Count 282 Mean Platelet Volume 9.9 Neutrophils % 82.4 H Lymphocytes % 11.2 L Monocytes % 5.5 Eosinophils % 0.0 Basophils % 0.5 Nucleated Red Blood Cells % 0.0 Neutrophils # 6.3 Lymphocytes # 0.9 Monocytes # 0.4 Eosinophils # 0.0 Basophils # 0.0 Nucleated Red Blood Cells # 0.0 Hemoglobin A1c 11.5 H Sodium Level 136 Potassium Level 4.2 Chloride Level 102 Carbon Dioxide Level 21 Anion Gap 17 H Blood Urea Nitrogen 9 Creatinine 0.94 Glucose Level 195 Uric Acid 3.6 Calcium Level 7.8 L Phosphorus Level 3.0 Magnesium Level 1.6 L Total Bilirubin 0.2 Direct Bilirubin 0.00 Indirect Bilirubin 0.2 Aspartate Amino Transf (AST/SGOT) 26 # Alanine Aminotransferase (ALT/SGPT) 36 Alkaline Phosphatase 116 Creatine Kinase 86 Total Protein 5.3 #L Albumin 2.6 #L Globulin 2.70 Albumin/Globulin Ratio 0.96 Triglycerides Level 169 H Cholesterol Level 168 LDL Cholesterol, Calculated 105 HDL Cholesterol 29 L Cholesterol/HDL Ratio 5.7 Thyroid Stimulating Hormone (TSH) Pending Test 03/16/17 08:22 Bedside Glucose 179 Medications Medications Current Medications Amlodipine Besylate (Norvasc) 5 mg DAILY PO Last administered on 03/16/17t 08: 44; Admin Dose 5 MG; Start 03/16/17 at 09:00 Valsartan (Diovan) 80 mg DAILY PO ; Start 03/16/17 at 09:00 Cholecalciferol (Vitamin D) 2,000 unit DAILY PO Last administered on 03/16/17 08:43; Admin Dose 2,000 UNIT; Start 03/15/17 at 11:30 Diagnostic Test (Pha) 1 ea 1 ea 02 XX Last administered on 03/16/17 02:59; Admin Dose 1 EA; Start 03/16/17 at 02:00 Piperacillin Sod/ Tazobactam Sod (Zosyn 3.375gm/ 100 ml (Pmx)) 100 ml @ 200 mls /hr Q6 IVPB Last administered on 03/16/17 05:29; Admin Dose 200 MLS/HR; Start 03/15/17 at 13:00 Linagliptin (Tradjenta) 5 mg DAILY PO Last administered on 03/16/17 08:43; Admin Dose 5 MG; Start 03/16/17 at 09:00 Hydralazine HCl 10 mg 10 mg Q6H PRN IV SBP>160; Start 03/15/17 at 11:00 Sodium Chloride (NS) 1,000 ml @ 100 mls/hr Q10H IV Last administered on 04:48; Admin Dose 100 MLS/HR; Start 03/15/17 at 11:00 Ondansetron HCl (Zofran Inj) 4 mg Q6H PRN IV NAUSEA AND/OR VOMITING Last administered on 03/15/17 16:39; Admin Dose 4 MG; Start 03/15/17 at 11:00 Acetaminophen (Tylenol Tab) 650 mg Q6H PRN PO PAIN LEVEL 1-3 OR FEVER Last administered on 03/16/17 08:52; Admin Dose 650 MG; Start 03/15/17 at 11:00 Acetaminophen (Tylenol Supp) 650 mg Q6H PRN [place] PAIN LEVEL 1-3 OR FEVER; Start 03/15/17 at 11:00 Morphine Sulfate (morphine) 2 mg Q4H PRN IV SEVERE PAIN LEVEL 7-10 Last administered on 03/16/17 11:11; Admin Dose 2 MG; Start 03/15/17 at 11:00 Docusate Sodium (Colace) 100 mg Q12H PRN PO CONSTIPATION; Start 03/15/17 at 11: 00 Famotidine (Pepcid) 20 mg Q12 PO Last administered on 03/16/17 08:43; Admin Dose 20 MG; Start 03/15/17 at 21:00 Heparin Sodium (Porcine) (Heparin (5000 Units/0.5 ml)) 5,000 unit Q12 SC Last administered on 03/16/17 08:40; Admin Dose 5,000 UNIT; Start 03/15/17 at 21:00 Miscellaneous Information 1 ea NOTE XX ; Start 03/15/17 at 11:30 Glucose (Glutose) 15 gm Q15M PRN PO DECREASED GLUCOSE; Start 03/15/17 at 11:30 Glucose (Glutose) 22.5 gm Q15M PRN PO DECREASED GLUCOSE; Start 03/15/17 at 11: 30 Dextrose (D50w Syringe) 25 ml Q15M PRN IV DECREASED GLUCOSE; Start 03/15/17 at 11:30 Dextrose (D50w Syringe) 50 ml Q15M PRN IV DECREASED GLUCOSE; Start 03/15/17 at 11:30 Glucagon (Glucagen) 1 mg Q15M PRN IM DECREASED GLUCOSE; Start 03/15/17 at 11:30 Glucose 15 gm 15 gm Q15M PRN BUCCAL DECREASED GLUCOSE; Start 03/15/17 at 11:30 Vancomycin HCl/ Sodium Chloride (Vancocin/NS) 150 ml @ 75 mls/hr Q12H IVPB Last administered on 03/16/17 09:29; Admin Dose 75 MLS/HR; Start 03/16/17 at 10 :00 Aspirin (Aspirin) 81 mg DAILY PO Last administered on 03/16/17 08:43; Admin Dose 81 MG; Start 03/16/17 at 09:00 Insulin Glargine (Lantus) 25 unit HS SC ; Start 03/16/17 at 21:00 SCOTT LAU MD Mar 16, 2017 12:28
--- NOTE | 2017-03-16 20:11 | CONS ---
Date/Time of Note Date/Time of Note DATE: 03/16/17 TIME: 20:04 Assessment/Plan Assessment/Plan Chief Complaint/Hosp Course ID PROGRESS NOTE 24H INTERVAL SUMMARY CURRENT ABX: DAY #2 Vanco IV + Zosyn * Awake, NAD, VSS, no fevers * LABS 03/16/17 0653 03/16/17 0654 Physical examination: 61 yo man who is in no distress HEENT: Unremarkable CHEST: Equal chest rise bilaterally without dyspnea on observation CV: Radial pulse RRR ABD: Soft, nontender : Deferred EXT: Warm, no cyanosis SKIN: No rash, no diaphoresis ID ASSESSMENT 61 yo M w/PMHx CVA, HTN, HLD, PAD admit with 1. Infected left great toe diabetic foot ulcer. 2. Severe septicemia -> BCx(+)GBS with lactic acidosis secondary to #1. 3. Hypoxic respiratory failure most likely secondary to severe sepsis=> Resolved 4. COPD-> former tobacco 5. Acute kidney injury likely secondary to severe sepsis. 6. Hyperglycemia with type 2 diabetes with complication of peripheral neuropathy . 7. Tiny 6.5 mm micronodule in the anteromedial right upper lobe * -Follow-up CT in 6 months to one year recommended. CURRENT ABX: DAY #2 Vanco IV + Zosyn ID RECOMMENDATIONS 1. Continue ABX - watch renal fx on this combo 2. MRI pending . Problems: Consultation Date/Type/Reason Admit Date/Time Mar 15, 2017 at 09:42 Initial Consult Date 03/15/17 Type of Consultation: ID Referring Provider: JOSÉ LILLY Exam/Review of Systems Vital Signs Vitals Vital Signs Date Time Temp Pulse Resp B/P Pulse Ox O2 Delivery O2 Flow Rate FiO2 03/16/17 17:04 72 20 20 Nasal Cannula 2.0 03/16/17 16:22 97.9 154/70 03/15/17 17:46 28 Intake and Output 03/15/17 03/15/17 03/16/17 14:59 22:59 06:59 Intake Total 2950 ml 1600 ml 900 ml Balance 2950 ml 1600 ml 900 ml Results Result Diagram: 03/16/17 0653 03/16/17 0654 Results 24 hrs Laboratory Tests Test 03/15/17 20:21 03/16/17 02:00 03/16/17 02:11 03/16/17 06:53 Bedside Glucose 212 226 H Urine Color YELLOW Urine Clarity CLEAR Urine pH 6.0 Urine Specific [place] 1.017 Urine Ketones TRACE A Urine Nitrite NEGATIVE Urine Bilirubin NEGATIVE Urine Urobilinogen NEGATIVE Urine Leukocyte Esterase NEGATIVE Urine Microscopic RBC 2 Urine Microscopic WBC 2 Urine Bacteria FEW A Urine Hemoglobin NEGATIVE Urine Glucose 2+ H Urine Total Protein 2+ H White Blood Count 7.7 # Red Blood Count 4.23 L Hemoglobin 13.4 L Hematocrit 40.3 L Mean Corpuscular Volume 95.3 Mean Corpuscular Hemoglobin 31.7 Mean Corpuscular Hemoglobin Concent 33.3 Red Cell Distribution Width 12.5 Platelet Count 282 Mean Platelet Volume 9.9 Neutrophils % 82.4 H Lymphocytes % 11.2 L Monocytes % 5.5 Eosinophils % 0.0 Basophils % 0.5 Nucleated Red Blood Cells % 0.0 Neutrophils # 6.3 Lymphocytes # 0.9 Monocytes # 0.4 Eosinophils # 0.0 Basophils # 0.0 Nucleated Red Blood Cells # 0.0 Hemoglobin A1c 11.5 H Test 03/16/17 06:54 03/16/17 08:22 03/16/17 12:24 03/16/17 17:34 Sodium Level 136 Potassium Level 4.2 Chloride Level 102 Carbon Dioxide Level 21 Anion Gap 17 H Blood Urea Nitrogen 9 Creatinine 0.94 Glucose Level 195 Uric Acid 3.6 Calcium Level 7.8 L Phosphorus Level 3.0 Magnesium Level 1.6 L Total Bilirubin 0.2 Direct Bilirubin 0.00 Indirect Bilirubin 0.2 Aspartate Amino Transf (AST/SGOT) 26 # Alanine Aminotransferase (ALT/SGPT) 36 Alkaline Phosphatase 116 Creatine Kinase 86 Total Protein 5.3 #L Albumin 2.6 #L Globulin 2.70 Albumin/Globulin Ratio 0.96 Triglycerides Level 169 H Cholesterol Level 168 LDL Cholesterol, Calculated 105 HDL Cholesterol 29 L Cholesterol/HDL Ratio 5.7 Thyroid Stimulating Hormone (TSH) Pending Bedside Glucose 179 135 190 Medications Medications Current Medications Amlodipine Besylate (Norvasc) 5 mg DAILY PO Last administered on 03/16/17 08: 44; Admin Dose 5 MG; Start 03/16/17 at 09:00 Valsartan (Diovan) 80 mg DAILY PO ; Start 03/16/17 at 09:00 Cholecalciferol (Vitamin D) 2,000 unit DAILY PO Last administered on 03/16/17 08:43; Admin Dose 2,000 UNIT; Start 03/15/17 at 11:30 Diagnostic Test (Pha) 1 ea 1 ea 02 XX Last administered on 03/16/17 02:59; Admin Dose 1 EA; Start 03/16/17 at 02:00 Piperacillin Sod/ Tazobactam Sod (Zosyn 3.375gm/ 100 ml (Pmx)) 100 ml @ 200 mls /hr Q6 IVPB Last administered on 03/16/17 17:50; Admin Dose 200 MLS/HR; Start 03/15/17 at 13:00 Linagliptin (Tradjenta) 5 mg DAILY PO Last administered on 03/16/17 08:43; Admin Dose 5 MG; Start 03/16/17 at 09:00 Hydralazine HCl 10 mg 10 mg Q6H PRN IV SBP>160; Start 03/15/17 at 11:00 Sodium Chloride (NS) 1,000 ml @ 100 mls/hr Q10H IV Last administered on 04:48; Admin Dose 100 MLS/HR; Start 03/15/17 at 11:00 Ondansetron HCl (Zofran Inj) 4 mg Q6H PRN IV NAUSEA AND/OR VOMITING Last administered on 03/15/17 16:39; Admin Dose 4 MG; Start 03/15/17 at 11:00 Acetaminophen (Tylenol Tab) 650 mg Q6H PRN PO PAIN LEVEL 1-3 OR FEVER Last administered on 03/16/17 08:52; Admin Dose 650 MG; Start 03/15/17 at 11:00 Acetaminophen (Tylenol Supp) 650 mg Q6H PRN IN PAIN LEVEL 1-3 OR FEVER; Start 03/15/17 at 11:00 Morphine Sulfate (morphine) 2 mg Q4H PRN IV SEVERE PAIN LEVEL 7-10 Last administered on 03/16/17 11:11; Admin Dose 2 MG; Start 03/15/17 at 11:00 Docusate Sodium (Colace) 100 mg Q12H PRN PO CONSTIPATION; Start 03/15/17 at 11: 00 Famotidine (Pepcid) 20 mg Q12 PO Last administered on 03/16/17 08:43; Admin Dose 20 MG; Start 03/15/17 at 21:00 Heparin Sodium (Porcine) (Heparin (5000 Units/0.5 ml)) 5,000 unit Q12 SC Last administered on 03/16/17 08:40; Admin Dose 5,000 UNIT; Start 03/15/17 at 21:00 Miscellaneous Information 1 ea NOTE XX ; Start 03/15/17 at 11:30 Glucose (Glutose) 15 gm Q15M PRN PO DECREASED GLUCOSE; Start 03/15/17 at 11:30 Glucose (Glutose) 22.5 gm Q15M PRN PO DECREASED GLUCOSE; Start 03/15/17 at 11: 30 Dextrose (D50w Syringe) 25 ml Q15M PRN IV DECREASED GLUCOSE; Start 03/15/17 at 11:30 Dextrose (D50w Syringe) 50 ml Q15M PRN IV DECREASED GLUCOSE; Start 03/15/17 at 11:30 Glucagon (Glucagen) 1 mg Q15M PRN IM DECREASED GLUCOSE; Start 03/15/17 at 11:30 Glucose 15 gm 15 gm Q15M PRN BUCCAL DECREASED GLUCOSE; Start 03/15/17 at 11:30 Vancomycin HCl/ Sodium Chloride (Vancocin/NS) 150 ml @ 75 mls/hr Q12H IVPB Last administered on 03/16/17 09:29; Admin Dose 75 MLS/HR; Start 03/16/17 at 10 :00 Aspirin (Aspirin) 81 mg DAILY PO Last administered on 03/16/17 08:43; Admin Dose 81 MG; Start 03/16/17 at 09:00 Insulin Glargine (Lantus) 25 unit HS SC ; Start 03/16/17 at 21:00 Miscellaneous Information (*Rx Drug Level Order Reminder*) VANCO TROUGH @ 0, 900 ON... ONCE ONCE XX ; Start 03/17/17 at 09:00; Stop 03/17/17 at 09:01 Guaifenesin/ Dextromethorphan (Mucinex Dm) 1 tab BID PO ; Start 03/16/17 at 21: 00 MYRNA MCCAIN NP Mar 16, 2017 20:11
[2017-03-16] MEDS: GUAIFENESIN/DM (SR) TAB PO SCH (21:18)
[2017-03-16] MEDS ORDERED: INSULIN ASPART [NOVOLOG] 3 ML PEN SC ONE (22:00)
[2017-03-16] MEDS: INSULIN GLARGINE [LANtus] 3 ML PEN SC SCH (23:47)
[2017-03-17] VITALS (14 sets, daily range): BP systolic 133–174; BP diastolic 64–81; PULSE 87–105; RESP 17–21
[2017-03-17] MEDS: morphine 2 MG INJ IV PRN ×4 (01:52→17:30)
[2017-03-17] MEDS: ACCU-CHEK XX SCH (02:14)
[2017-03-17] MEDS: SOD CHLORIDE 0.9% 1,000 ML IV SCH (02:46)
[2017-03-17] MEDS: ACETAMINOPHEN 325 MG TAB PO PRN ×3 (03:38→20:48)
[2017-03-17] MEDS: hydrALAzine 20 MG INJ IV PRN (03:39)
[2017-03-17] MEDS: PIPER-TAZO 3.375 GM IV (PMX) 100 ML IVPB SCH ×3 (05:24→17:27)
[2017-03-17] MEDS: ALBUTEROL/IPRATROPIUM (NEB) 3 ML AMP HHN SCH ×4 (08:13→20:54)
[2017-03-17] MEDS: ASPIRIN 81 MG TAB PO SCH (08:28)
[2017-03-17] MEDS: LINAGLIPTIN 5 MG TABLET PO SCH (08:28)
[2017-03-17] MEDS: FAMOTIDINE 20 MG TAB PO SCH (08:28)
[2017-03-17] MEDS: CHOLECALCIFEROL 2,000 UNIT CAP PO SCH (08:29)
[2017-03-17] MEDS: AMLODIPINE 5 MG TAB PO SCH (08:29)
[2017-03-17] MEDS: GUAIFENESIN/DM (SR) TAB PO SCH ×2 (08:29→20:48)
[2017-03-17] MEDS: INSULIN ASPART [NOVOLOG] 3 ML PEN SC SCH ×7 (08:33→20:44)
[2017-03-17] MEDS: HEPARIN 5,000 UNIT/0.5 ML VIAL SC SCH ×2 (08:34→20:46)
[2017-03-17 09:20] LABS: PROTEIN/CREAT RATIO 3.09 RATIO
[2017-03-17] MEDS: VANCOMYCIN 750 MG in SOD CHLORIDE 0.9% 150 ML IVPB SCH (11:19)
--- NOTE | 2017-03-17 13:25 | CONS ---
Date/Time of Note Date/Time of Note DATE: 03/17/17 TIME: 13:23 Assessment/Plan Assessment/Plan Chief Complaint/Hosp Course 61-year-old obese male with a past medical history of hypertension, CVA , lung mass, former smoker, dyslipidemia, type 2 diabetes, diabetic foot ulcers , peripheral vascular disease, peripheral neuropathy, - getting admitted for Infected left great toe diabetic foot ulcer.Renal has been consulted for Acute kidney injury. Problems: Additional Assessment/Plan 1. 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 Infected left great toe diabetic foot ulcer. 3. Severe sepsis with lactic acidosis 4. Hypoxic respiratory failure most likely secondary to severe sepsis 5. Type II DM 6. Hypertension 7. Hyperlpidemia Plan: Urine studies unremarkable, Uric acid normal, Cr improved to normal, d/c IVF today IV abx as per ID, renally dose all abx, avoid Ibuprofen for pain control BP stable will continue to follow up. Consultation Date/Type/Reason Admit Date/Time Mar 15, 2017 at 09:42 Initial Consult Date 03/15/17 Type of Consultation: NEPHROLOGY Reason for Consultation acute kidney injury on CKD Referring Provider: JOSÉ LILLY 24 HR Interval Summary Free Text/Dictation no acute events, BP stable,a febrile Exam/Review of Systems Vital Signs Vitals Vital Signs Date Time Temp Pulse Resp B/P Pulse Ox O2 Delivery O2 Flow Rate FiO2 03/17/17 12:49 83 18 93 21 03/17/17 12:00 97.8 140/65 03/16/17 22:20 Nasal Cannula 2.0 Intake and Output 03/16/17 03/16/17 03/17/17 15:00 23:00 07:00 Intake Total 100 ml 2050 ml 950 ml Output Total 1400 ml Balance 100 ml 650 ml 950 ml Exam Constitutional: alert Psych: no complaints Head: normocephalic Eyes: nl conjunctiva ENMT: nl external ears & nose Neck: supple Respiratory: clear to auscultation, diminished breath sounds Cardiovascular: regular rate and rhythm Gastrointestinal: soft Musculoskeletal: nl extremities to inspection, left foot great toe ulcer with dressing on 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, nl mental status, nl speech, nl strength Results Result Diagram: 03/16/17 0653 03/16/17 0654 Results 24 hrs Laboratory Tests Test 03/16/17 17:34 03/16/17 20:39 03/17/17 02:10 03/17/17 03:30 Bedside Glucose 190 318 H 179 Urine Eosinophils % 0.0 Urine Random Creatinine 64.70 Urine Random Sodium 131 H Urine Protein/Creatinine Ratio 3.09 Urine Total Protein Test 03/17/17 08:24 03/17/17 09:23 03/17/17 12:46 Bedside Glucose 199 147 Vancomycin Level Trough 7.0 L Medications Medications Current Medications Amlodipine Besylate (Norvasc) 5 mg DAILY PO Last administered on 03/17/17 08: 29; Admin Dose 5 MG; Start 03/16/17 at 09:00 Valsartan (Diovan) 80 mg DAILY PO ; Start 03/16/17 at 09:00 Cholecalciferol (Vitamin D) 2,000 unit DAILY PO Last administered on 03/17/17 08:29; Admin Dose 2,000 UNIT; Start 03/15/17 at 11:30 Diagnostic Test (Pha) 1 ea 1 ea 02 XX Last administered on 03/17/17 02:14; Admin Dose 1 EA; Start 03/16/17 at 02:00 Piperacillin Sod/ Tazobactam Sod (Zosyn 3.375gm/ 100 ml (Pmx)) 100 ml @ 200 mls /hr Q6 IVPB Last administered on 03/17/17 05:24; Admin Dose 200 MLS/HR; Start 03/15/17 at 13:00 Linagliptin (Tradjenta) 5 mg DAILY PO Last administered on 03/17/17 08:28; Admin Dose 5 MG; Start 03/16/17 at 09:00 Hydralazine HCl 10 mg 10 mg Q6H PRN IV SBP>160 Last administered on 03/17/17 03:39; Admin Dose 10 MG; Start 03/15/17 at 11:00 Sodium Chloride (NS) 1,000 ml @ 100 mls/hr Q10H IV Last administered on 04:48; Admin Dose 100 MLS/HR; Start 03/15/17 at 11:00 Ondansetron HCl (Zofran Inj) 4 mg Q6H PRN IV NAUSEA AND/OR VOMITING Last administered on 03/15/17 16:39; Admin Dose 4 MG; Start 03/15/17 at 11:00 Acetaminophen (Tylenol Tab) 650 mg Q6H PRN PO PAIN LEVEL 1-3 OR FEVER Last administered on 03/17/17 11:29; Admin Dose 650 MG; Start 03/15/17 at 11:00 Acetaminophen (Tylenol Supp) 650 mg Q6H PRN [place] PAIN LEVEL 1-3 OR FEVER; Start 03/15/17 at 11:00 Morphine Sulfate (morphine) 2 mg Q4H PRN IV SEVERE PAIN LEVEL 7-10 Last administered on 03/17/17 09:17; Admin Dose 2 MG; Start 03/15/17 at 11:00 Docusate Sodium (Colace) 100 mg Q12H PRN PO CONSTIPATION; Start 03/15/17 at 11: 00 Famotidine (Pepcid) 20 mg Q12 PO Last administered on 03/17/17 08:28; Admin Dose 20 MG; Start 03/15/17 at 21:00 Heparin Sodium (Porcine) (Heparin (5000 Units/0.5 ml)) 5,000 unit Q12 SC Last administered on 03/17/17 08:34; Admin Dose 5,000 UNIT; Start 03/15/17 at 21:00 Miscellaneous Information 1 ea NOTE XX ; Start 03/15/17 at 11:30 Glucose (Glutose) 15 gm Q15M PRN PO DECREASED GLUCOSE; Start 03/15/17 at 11:30 Glucose (Glutose) 22.5 gm Q15M PRN PO DECREASED GLUCOSE; Start 03/15/17 at 11: 30 Dextrose (D50w Syringe) 25 ml Q15M PRN IV DECREASED GLUCOSE; Start 03/15/17 at 11:30 Dextrose (D50w Syringe) 50 ml Q15M PRN IV DECREASED GLUCOSE; Start 03/15/17 at 11:30 Glucagon (Glucagen) 1 mg Q15M PRN IM DECREASED GLUCOSE; Start 03/15/17 at 11:30 Glucose 15 gm 15 gm Q15M PRN BUCCAL DECREASED GLUCOSE; Start 03/15/17 at 11:30 Vancomycin HCl/ Sodium Chloride (Vancocin/NS) 150 ml @ 75 mls/hr Q12H IVPB Last administered on 03/17/17 11:19; Admin Dose 75 MLS/HR; Start 03/16/17 at 10 :00; Stop 03/17/17 at 15:00 Aspirin (Aspirin) 81 mg DAILY PO Last administered on 03/17/17 08:28; Admin Dose 81 MG; Start 03/16/17 at 09:00 Insulin Glargine (Lantus) 25 unit HS SC Last administered on 03/16/17 23:47; Admin Dose 25 UNIT; Start 03/16/17 at 21:00 Guaifenesin/ Dextromethorphan 1 tab 1 tab BID PO Last administered on 08:29; Admin Dose 1 TAB; Start 03/16/17 at 21:00 Vancomycin HCl/ Sodium Chloride (Vancocin/NS) 250 ml @ 83.333 mls/ hr Q12H IVPB ; Start 03/17/17 at 18:00 SCOTT LAU MD Mar 17, 2017 13:25
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
--- NOTE | 2017-03-17 14:31 | PN ---
Date/Time of Note Date/Time of Note DATE: 03/17/17 TIME: 14:25 Assessment/Plan VTE Prophylaxis VTE Prophylaxis Intervention: SCD's Lines/Catheters IV [facility] Saline Lock Urinary Cath still in place: No Assessment/Plan Assessment/Plan 61 yo M with obesity, poorly controled DM2 admitted for sepsis 2/2 group B strep bacteremia, suspect origin diabetic foot infection of L great toe 1. diabetic foot infection -abx as per ID -MRI pending for OM eval -podiatry on consult 2. Severe sepsis from GBS bacteremia: resolved. ID following -cont abx 3. Acute kidney injury likely secondary to severe sepsis. -Avoid nephrotoxins and continue to monitor renal function closely. Follow-up with nephrology recommendations. 4. Hyperglycemia with type 2 diabetes. -Continue Accu-Cheks/ISS. cont current DM reigmen though I am skeptical regarding adherence to home regimen or frequency/veracity of home BG checks -Hold acarbose and metformin for now. -CDE/RD evals 6. Essential hypertension. -Continue antihypertensives. 7. Morbid obesity. -RD eval 8. Dyslipidemia. -On statin 9. PAD -Low-dose aspirin. -vascular surgery following 10. History of cerebrovascular accident. No present issues. 11.Tiny 6.5 mm micronodule in the anteromedial right upper lobe -Follow-up CT in 6 months to one year recommended. DVT prophylaxis: Heparin PUD prophylaxis: not indicated Subjective 24 Hr Interval Summary Free Text/Dictation Pt states his BGs at home have consistently been under 200. States he's been adherent to DM regimen Exam/Review of Systems Vital Signs Vitals Vital Signs Date Time Temp Pulse Resp B/P Pulse Ox O2 Delivery O2 Flow Rate FiO2 03/17/17 12:49 83 18 93 21 03/17/17 12:00 97.8 140/65 03/16/17 22:20 Nasal Cannula 2.0 Intake and Output 03/16/17 03/16/17 03/17/17 15:00 23:00 07:00 Intake Total 100 ml 2050 ml 950 ml Output Total 1400 ml Balance 100 ml 650 ml 950 ml Exam nad, sitting up in bed large neck abd soft no rashes L great toe swollen multiple fungal toenails a1c 11.5 MRI done, results pending Results Result Diagram: 03/16/17 0653 03/16/17 0654 Results 24 hrs Laboratory Tests Test 03/16/17 17:34 03/16/17 20:39 03/17/17 02:10 03/17/17 03:30 Bedside Glucose 190 318 H 179 Urine Eosinophils % 0.0 Urine Random Creatinine 64.70 Urine Random Sodium 131 H Urine Protein/Creatinine Ratio 3.09 Urine Total Protein Test 03/17/17 08:24 03/17/17 09:23 03/17/17 12:46 Bedside Glucose 199 147 Vancomycin Level Trough 7.0 L Medications Medications Current Medications Amlodipine Besylate (Norvasc) 5 mg DAILY PO Last administered on 03/17/17 08: 29; Admin Dose 5 MG; Start 03/16/17 at 09:00 Valsartan (Diovan) 80 mg DAILY PO ; Start 03/16/17 at 09:00 Cholecalciferol (Vitamin D) 2,000 unit DAILY PO Last administered on 03/17/17 08:29; Admin Dose 2,000 UNIT; Start 03/15/17 at 11:30 Diagnostic Test (Pha) 1 ea 1 ea 02 XX Last administered on 03/17/17 02:14; Admin Dose 1 EA; Start 03/16/17 at 02:00 Piperacillin Sod/ Tazobactam Sod (Zosyn 3.375gm/ 100 ml (Pmx)) 100 ml @ 200 mls /hr Q6 IVPB Last administered on 03/17/17 05:24; Admin Dose 200 MLS/HR; Start 03/15/17 at 13:00 Linagliptin (Tradjenta) 5 mg DAILY PO Last administered on 03/17/17 08:28; Admin Dose 5 MG; Start 03/16/17 at 09:00 Hydralazine HCl (Apresoline) 10 mg Q6H PRN IV SBP>160 Last administered on 03/17 03:39; Admin Dose 10 MG; Start 03/15/17 at 11:00 Ondansetron HCl (Zofran Inj) 4 mg Q6H PRN IV NAUSEA AND/OR VOMITING Last administered on 03/15/17 16:39; Admin Dose 4 MG; Start 03/15/17 at 11:00 Acetaminophen (Tylenol Tab) 650 mg Q6H PRN PO PAIN LEVEL 1-3 OR FEVER Last administered on 03/17/17 11:29; Admin Dose 650 MG; Start 03/15/17 at 11:00 Acetaminophen (Tylenol Supp) 650 mg Q6H PRN [place] PAIN LEVEL 1-3 OR FEVER; Start 03/15/17 at 11:00 Morphine Sulfate (morphine) 2 mg Q4H PRN IV SEVERE PAIN LEVEL 7-10 Last administered on 03/17/17 09:17; Admin Dose 2 MG; Start 03/15/17 at 11:00 Docusate Sodium (Colace) 100 mg Q12H PRN PO CONSTIPATION; Start 03/15/17 at 11: 00 Famotidine (Pepcid) 20 mg Q12 PO Last administered on 03/17/17 08:28; Admin Dose 20 MG; Start 03/15/17 at 21:00 Heparin Sodium (Porcine) (Heparin (5000 Units/0.5 ml)) 5,000 unit Q12 SC Last administered on 03/17/17 08:34; Admin Dose 5,000 UNIT; Start 03/15/17 at 21:00 Miscellaneous Information 1 ea NOTE XX ; Start 03/15/17 at 11:30 Glucose (Glutose) 15 gm Q15M PRN PO DECREASED GLUCOSE; Start 03/15/17 at 11:30 Glucose (Glutose) 22.5 gm Q15M PRN PO DECREASED GLUCOSE; Start 03/15/17 at 11: 30 Dextrose (D50w Syringe) 25 ml Q15M PRN IV DECREASED GLUCOSE; Start 03/15/17 at 11:30 Dextrose (D50w Syringe) 50 ml Q15M PRN IV DECREASED GLUCOSE; Start 03/15/17 at 11:30 Glucagon (Glucagen) 1 mg Q15M PRN IM DECREASED GLUCOSE; Start 03/15/17 at 11:30 Glucose 15 gm 15 gm Q15M PRN BUCCAL DECREASED GLUCOSE; Start 03/15/17 at 11:30 Vancomycin HCl/ Sodium Chloride (Vancocin/NS) 150 ml @ 75 mls/hr Q12H IVPB Last administered on 03/17/17 11:19; Admin Dose 75 MLS/HR; Start 03/16/17 at 10 :00; Stop 03/17/17 at 15:00 Aspirin (Aspirin) 81 mg DAILY PO Last administered on 03/17/17 08:28; Admin Dose 81 MG; Start 03/16/17 at 09:00 Insulin Glargine (Lantus) 25 unit HS SC Last administered on 03/16/17 23:47; Admin Dose 25 UNIT; Start 03/16/17 at 21:00 Guaifenesin/ Dextromethorphan 1 tab 1 tab BID PO Last administered on 08:29; Admin Dose 1 TAB; Start 03/16/17 at 21:00 Vancomycin HCl/ Sodium Chloride (Vancocin/NS) 250 ml @ 83.333 mls/ hr Q12H IVPB ; Start 03/17/17 at 18:00 DONNA VELÁZQUEZ MD Mar 17, 2017 14:31
[2017-03-17] MEDS: BENZONATATE 100 MG CAP PO PRN (16:20)
--- NOTE | 2017-03-17 17:47 | CONS ---
Date/Time of Note Date/Time of Note DATE: 03/17/17 TIME: 17:31 Assessment/Plan Assessment/Plan Chief Complaint/Hosp Course ID PROGRESS NOTE 24H INTERVAL SUMMARY CURRENT ABX: DAY #3 Vanco IV + Zosyn * Awake, NAD, VSS, sepsis resolved no fevers, repeat lactic acid normal, ESR 100m HGB A1c 11.+ * MRI completed pending report posting Physical examination: 61 yo man who is in no distress HEENT: Unremarkable CHEST: Equal chest rise bilaterally without dyspnea on observation CV: Radial pulse RRR ABD: Soft, nontender : Deferred EXT: Warm, no cyanosis SKIN: No rash, no diaphoresis ID ASSESSMENT 61 yo M w/PMHx CVA, HTN, HLD, PAD admit with 1. Infected left great toe diabetic foot ulcer. * ESR 100 (03/15/17) 2. Severe septicemia -> BCx(+)GBS with lactic acidosis secondary to #1=> RESOLVED 3. Hypoxic respiratory failure most likely secondary to severe sepsis=> RESOLVED 4. COPD-> former tobacco 5. Acute kidney injury likely secondary to severe sepsis=> RESOLVED 6. Hyperglycemia with type 2 diabetes with complication of peripheral neuropathy . 7. Tiny 6.5 mm micronodule in the anteromedial right upper lobe * -Follow-up CT in 6 months to one year recommended. CURRENT ABX: DAY #3 Vanco IV + Zosyn ID RECOMMENDATIONS 1. Continue ABX - watch renal fx on this combo 2. MRI apparently completed - pending report posting 3. Follow APC recommendations . Problems: Consultation Date/Type/Reason Admit Date/Time Mar 15, 2017 at 09:42 Initial Consult Date 03/15/17 Type of Consultation: id Referring Provider: JOSÉ LILLY Exam/Review of Systems Vital Signs Vitals Vital Signs Date Time Temp Pulse Resp B/P Pulse Ox O2 Delivery O2 Flow Rate FiO2 03/17/17 16:56 2.0 03/17/17 16:50 86 20 88 21 03/17/17 16:08 97.9 134/64 03/16/17 22:20 Nasal Cannula Intake and Output 03/16/17 03/16/17 03/17/17 15:00 23:00 07:00 Intake Total 100 ml 2050 ml 950 ml Output Total 1400 ml Balance 100 ml 650 ml 950 ml Results Result Diagram: 03/16/17 0653 03/16/17 0654 Results 24 hrs Laboratory Tests Test 03/16/17 17:34 03/16/17 20:39 03/17/17 02:10 03/17/17 03:30 Bedside Glucose 190 318 H 179 Urine Eosinophils % 0.0 Urine Random Creatinine 64.70 Urine Random Sodium 131 H Urine Protein/Creatinine Ratio 3.09 Urine Total Protein Test 03/17/17 08:24 03/17/17 09:23 03/17/17 12:46 03/17/17 17:22 Bedside Glucose 199 147 178 Vancomycin Level Trough 7.0 L Medications Medications Current Medications Amlodipine Besylate (Norvasc) 5 mg DAILY PO Last administered on 03/17/17 08: 29; Admin Dose 5 MG; Start 03/16/17 at 09:00 Valsartan (Diovan) 80 mg DAILY PO ; Start 03/16/17 at 09:00 Cholecalciferol (Vitamin D) 2,000 unit DAILY PO Last administered on 03/17/17 08:29; Admin Dose 2,000 UNIT; Start 03/15/17 at 11:30 Diagnostic Test (Pha) 1 ea 1 ea 02 XX Last administered on 03/17/17 02:14; Admin Dose 1 EA; Start 03/16/17 at 02:00 Piperacillin Sod/ Tazobactam Sod (Zosyn 3.375gm/ 100 ml (Pmx)) 100 ml @ 200 mls /hr Q6 IVPB Last administered on 03/17/17 15:10; Admin Dose 200 MLS/HR; Start 03/15/17 at 13:00 Linagliptin (Tradjenta) 5 mg DAILY PO Last administered on 03/17/17 08:28; Admin Dose 5 MG; Start 03/16/17 at 09:00 Hydralazine HCl (Apresoline) 10 mg Q6H PRN IV SBP>160 Last administered on 03/17 03:39; Admin Dose 10 MG; Start 03/15/17 at 11:00 Ondansetron HCl (Zofran Inj) 4 mg Q6H PRN IV NAUSEA AND/OR VOMITING Last administered on 03/15/17 16:39; Admin Dose 4 MG; Start 03/15/17 at 11:00 Acetaminophen (Tylenol Tab) 650 mg Q6H PRN PO PAIN LEVEL 1-3 OR FEVER Last administered on 03/17/17 11:29; Admin Dose 650 MG; Start 03/15/17 at 11:00 Acetaminophen (Tylenol Supp) 650 mg Q6H PRN [place] PAIN LEVEL 1-3 OR FEVER; Start 03/15/17 at 11:00 Morphine Sulfate (morphine) 2 mg Q4H PRN IV SEVERE PAIN LEVEL 7-10 Last administered on 03/17/17 09:17; Admin Dose 2 MG; Start 03/15/17 at 11:00 Docusate Sodium (Colace) 100 mg Q12H PRN PO CONSTIPATION; Start 03/15/17 at 11: 00 Heparin Sodium (Porcine) (Heparin (5000 Units/0.5 ml)) 5,000 unit Q12 SC Last administered on 03/17/17 08:34; Admin Dose 5,000 UNIT; Start 03/15/17 at 21:00 Miscellaneous Information 1 ea NOTE XX ; Start 03/15/17 at 11:30 Glucose (Glutose) 15 gm Q15M PRN PO DECREASED GLUCOSE; Start 03/15/17 at 11:30 Glucose (Glutose) 22.5 gm Q15M PRN PO DECREASED GLUCOSE; Start 03/15/17 at 11: 30 Dextrose (D50w Syringe) 25 ml Q15M PRN IV DECREASED GLUCOSE; Start 03/15/17 at 11:30 Dextrose (D50w Syringe) 50 ml Q15M PRN IV DECREASED GLUCOSE; Start 03/15/17 at 11:30 Glucagon (Glucagen) 1 mg Q15M PRN IM DECREASED GLUCOSE; Start 03/15/17 at 11:30 Glucose (Glutose) 15 gm Q15M PRN BUCCAL DECREASED GLUCOSE; Start 03/15/17 at 11 :30 Aspirin (Aspirin) 81 mg DAILY PO Last administered on 03/17/17 08:28; Admin Dose 81 MG; Start 03/16/17 at 09:00 Insulin Glargine (Lantus) 25 unit HS SC Last administered on 03/16/17 23:47; Admin Dose 25 UNIT; Start 03/16/17 at 21:00 Guaifenesin/ Dextromethorphan 1 tab 1 tab BID PO Last administered on 08:29; Admin Dose 1 TAB; Start 03/16/17 at 21:00 Vancomycin HCl/ Sodium Chloride (Vancocin/NS) 250 ml @ 83.333 mls/ hr Q12H IVPB ; Start 03/17/17 at 18:00 Benzonatate (Tessalon) 100 mg TID PRN PO cough Last administered on 03/17/17t 16:20; Admin Dose 100 MG; Start 03/17/17 at 16:00 MYRNA MCCAIN NP Mar 17, 2017 17:41
--- NOTE | 2017-03-17 18:03 | PN ---
Date/Time of Note Date/Time of Note DATE: 03/17/17 TIME: 18:01 Assessment/Plan Lines/Catheters IV Catheter Type (from Nrs): Saline Lock Hooks in Place (from Nrs): No Assessment/Plan Problems: (1) Diabetic foot infection Status: Acute (2) Foot ulcer, right Status: Acute (3) Encounter for wound re-check Status: Acute (4) Abscess Status: Acute (5) Acute bronchitis Status: Acute (6) Peripheral edema Status: Acute (7) Hyperglycemia without ketosis Status: Acute (8) Shortness of breath Status: Acute (9) Sepsis Status: Acute Qualifiers: Sepsis type: sepsis due to unspecified organism Qualified Code: A41.9 - Sepsis, due to unspecified organism (10) Diabetic foot ulcer Status: Acute Qualifiers: Diabetic foot ulcer location: toe Diabetes mellitus type: type 2 Laterality: left Non-pressure ulcer stage: with fat layer exposed Qualified Code: E11.621 - Diabetic ulcer of toe of left foot associated with type 2 diabetes mellitus, with fat layer exposed Assessment/Plan I will review the MRI results once available. Decision for surgery versus nonsurgical management pending MRI results. At this time continue IV antibiotics and nonweightbearing. I instructed the nurse to apply Betadine dressing today. Patient will be followed closely. Subjective 24 Hr Interval Summary Patient was seen at bedside. He reports decrease in swelling and redness of his left big toe. He reports feeling slightly better on antibiotics. Patient has been seen by vascular surgery. An MRI apparently has been done but is not available on imaging for review at this time. Constitutional: no complaints Pain Control: well controlled Exam/Review of Systems Vital Signs Vitals Vital Signs Date Time Temp Pulse Resp B/P Pulse Ox O2 Delivery O2 Flow Rate FiO2 03/17/17 16:56 2.0 03/17/17 16:50 86 20 88 21 03/17/17 16:08 97.9 134/64 03/16/17 22:20 Nasal Cannula Intake and Output 03/16/17 03/16/17 03/17/17 15:00 23:00 07:00 Intake Total 100 ml 2050 ml 950 ml Output Total 1400 ml Balance 100 ml 650 ml 950 ml Exam Free Text/Dictation Morbidly obese male laying supine in bed. The left foot shows decrease in erythema and edema of the hallux with an open wound on the plantar aspect. The second toe erythema is reduced. There is continued but less purulence from the open wound on the plantar aspect of the left hallux. Dorsalis pedis pulses not palpable and posterior tibial pulses not palpable bilaterally. Patient has mild to moderate edema of the lower extremities. The erythema is also significantly reduced most likely secondary to IV antibiotics. No other open wound present on both lower extremities. Labs reviewed. Pending MRI results. Results Result Diagram: 03/16/17 0653 03/16/17 0654 CHARLY ALVAREZ DPM Mar 17, 2017 18:03
[2017-03-17] MEDS: VANCOMYCIN 1.25 GM in SOD CHLORIDE 0.9% 250 ML IVPB SCH (18:09)
[2017-03-17] MEDS: INSULIN GLARGINE [LANtus] 3 ML PEN SC SCH (20:45)
--- NOTE | 2017-03-17 23:19 | RADRPT ---
PROCEDURE: MRI OF THE LEFT FOOT. CLINICAL INDICATION: TECHNIQUE: Multiple MRI images of the left foot were obtained in multiple planes utilizing multipl e pulse sequences. Images were interpreted on the high-resolution PACS system. COMPARISON: None. FINDINGS: 1st ray: There is soft tissue swelling of the great toe. There is subtle bone destructive change of the lateral junction between the metaphysis and terminal tuft of the distal phalanx seen on axial T 1 image number 15. There is bone marrow edema. Findings are consistent with osteomyelitis. There is inflammatory appearing mass within the soft tissues adjacent to the bone destructive change and t he findings are most likely on the right on or possibly an early abscess. No evidence for proximal phalangeal or metatarsal osteomyelitis. No soft tissue air to suggest gangrene. 2nd ray: No evidence for osteochondral defect. No evidence for plantar plate defect. No evidence for subluxation. No mass lesion identified. No evidence for tendon tear. Ligaments are intact. No evidence for metatarsal fracture. 3rd ray through 5th ray: No evidence for osteochondral defect. No evidence for plantar plate defec t. No evidence for subluxation. No mass lesion identified. No evidence for tendon tear. Ligaments are intact. No evidence for metatarsal fracture. Other findings: There is no evidence for neuroma. No evidence for plantar fibroma. No solid mass l esion identified. IMPRESSION: 1. Findings consistent with focal osteomyelitis of the terminal tuft of the great toe distal phalan x laterally. 2. There is adjacent soft tissue mass that could be a phlegmon or early abscess. RPTAT: XX .Pepe Escalera MD, Date Time Electronically viewed and signed by .Pepe Escalera MD, MD on 03/17/2017 23:18 .T/
[2017-03-18] VITALS (12 sets, daily range): BP systolic 129–183; BP diastolic 63–86; PULSE 78–88; RESP 17–21
[2017-03-18] MEDS: PIPER-TAZO 3.375 GM IV (PMX) 100 ML IVPB SCH ×4 (00:20→17:27)
[2017-03-18] MEDS: ACCU-CHEK XX SCH (02:00)
[2017-03-18] MEDS: VANCOMYCIN 1.25 GM in SOD CHLORIDE 0.9% 250 ML IVPB SCH ×2 (05:38→18:05)
--- NOTE | 2017-03-18 06:25 | RADRPT ---
PROCEDURE: Bilateral lower extremity venous mapping. CLINICAL INDICATION: Lower extremity ulcer. TECHNIQUE: The greater saphenous vein was evaluated bilaterally with ultrasound in the axial and s agittal planes. Diameter of the veins were determined as indicated below. COMPARISON: No prior studies are available for comparison. FINDINGS: Right greater saphenous vein: At groin: 0.46 cm. Upper thigh: 0.28 cm. Mid thigh: 0.26 cm. Lower thigh: 0.27 cm. At knee: 0.29 cm. Upper calf: 0.26 cm. Mid calf: 0.22 cm. Ankle: 0.29 cm. Left greater saphenous vein: At groin: 0.50 cm. Upper thigh: 0.36 cm. Mid thigh: 0.34 cm. Lower thigh: 0.37 cm. At knee: 0.34 cm. Upper calf: 0.30 cm. Mid calf: 0.31 cm. Ankle: 0.38 cm. The greater saphenous veins demonstrate normal compressibility with no thrombus or occlusion. IMPRESSION: 1. Diameter of greater saphenous veins as indicated above. 2. No thrombosis visualized. RPTAT: QQ .Jonathan Shipman MD, Date Time Electronically viewed and signed by .Jonathan Shipman MD, on 03/18/2017 06:25 .R/
[2017-03-18] MEDS: BENZONATATE 100 MG CAP PO PRN (06:41)
[2017-03-18 08:16] LABS: BASOPHIL # 0.1 10^3/ul (0.0-0.1); BASOPHILS % 1.2 % (0.0-2.0); EOSINOPHILS # 0.1 10^3/ul (0.0-0.5); EOSINOPHILS % 1.5 % (0.0-7.0); HEMATOCRIT 38.9 % (42.0-52.0); HEMOGLOBIN 12.8 g/dl (14.0-18.0); LYMPHOCYTES # 1.3 10^3/ul (0.8-2.9); LYMPHOCYTES % 21.6 % (15.0-51.0); MEAN CORPUSCULAR HEMOGLOBIN 30.9 pg (29.0-33.0); MEAN CORPUSCULAR HGB CONC 32.9 g/dl (32.0-37.0); MEAN PLATELET VOLUME 9.9 fl (7.4-10.4); MONOCYTE # 0.7 10^3/ul (0.3-0.9); MONOCYTES % 11.8 % (0.0-11.0); NEUTROPHIL # 3.8 10^3/ul (1.6-7.5); NEUTROPHILS % 63.6 % (39.0-77.0); PLATELET COUNT 323 10^3/UL (140-415); RED BLOOD COUNT 4.14 10^6/ul (4.70-6.10)
[2017-03-18] MEDS: ALBUTEROL/IPRATROPIUM (NEB) 3 ML AMP HHN SCH ×4 (08:25→20:31)
[2017-03-18] MEDS: CHOLECALCIFEROL 2,000 UNIT CAP PO SCH (08:37)
[2017-03-18] MEDS: LINAGLIPTIN 5 MG TABLET PO SCH (08:37)
[2017-03-18] MEDS: GUAIFENESIN/DM (SR) TAB PO SCH ×2 (08:37→22:50)
[2017-03-18] MEDS: ASPIRIN 81 MG TAB PO SCH (08:37)
[2017-03-18] MEDS: AMLODIPINE 5 MG TAB PO SCH (08:38)
[2017-03-18] MEDS: INSULIN ASPART [NOVOLOG] 3 ML PEN SC SCH ×7 (08:43→20:35)
[2017-03-18] MEDS: HEPARIN 5,000 UNIT/0.5 ML VIAL SC SCH ×2 (08:44→20:34)
[2017-03-18 08:45] LABS: CALCIUM 8.8 mg/dl (8.4-10.2); CREATININE 0.92 mg/dl (0.61-1.24); POTASSIUM 4.5 mmol/L (3.5-5.1)
[2017-03-18] MEDS: morphine 2 MG INJ IV PRN (10:40)
--- NOTE | 2017-03-18 14:05 | CONS ---
Date/Time of Note Date/Time of Note DATE: 03/18/17 TIME: 14:01 Assessment/Plan Assessment/Plan Chief Complaint/Hosp Course Assessment/Plan Chief Complaint/Hosp Course ID PROGRESS NOTE 24H INTERVAL SUMMARY CURRENT ABX: DAY #3 Vanco IV + Zosyn * Awake. Alert. No Acute Distress. Physical examination: 61 yo man who is in no distress HEENT: Unremarkable CHEST: Equal chest rise bilaterally without dyspnea on observation CV: Radial pulse RRR ABD: Soft, nontender : Deferred EXT: Warm, no cyanosis SKIN: No rash, no diaphoresis ID ASSESSMENT 61 yo M w/PMHx CVA, HTN, HLD, PAD admit with 1. Infected left great toe diabetic foot ulcer. * ESR 100 (03/15/17) 2. Severe septicemia -> BCx(+)GBS with lactic acidosis secondary to #1=> RESOLVED 3. Hypoxic respiratory failure most likely secondary to severe sepsis=> RESOLVED 4. COPD-> former tobacco 5. Acute kidney injury likely secondary to severe sepsis=> RESOLVED 6. Hyperglycemia with type 2 diabetes with complication of peripheral neuropathy . 7. Tiny 6.5 mm micronodule in the anteromedial right upper lobe * -Follow-up CT in 6 months to one year recommended. CURRENT ABX: DAY #3 Vanco IV + Zosyn ID RECOMMENDATIONS 1. Continue ABX. Monitor Renal Function. 2. MRI completed. Follow Up on MRI results. Monitor. 3. Follow APC recommendations 4. Pain management. Monitor Labs. Problems: Consultation Date/Type/Reason Admit Date/Time Mar 15, 2017 at 09:42 Initial Consult Date 03/15/17 Type of Consultation: id Referring Provider: JOSÉ LILLY Exam/Review of Systems Vital Signs Vitals Vital Signs Date Time Temp Pulse Resp B/P Pulse Ox O2 Delivery O2 Flow Rate FiO2 03/18/17 12:43 2.0 03/18/17 12:35 88 03/18/17 12:32 20 84 21 03/18/17 12:15 98.6 183/86 03/16/17 22:20 Nasal Cannula Intake and Output 03/17/17 03/17/17 03/18/17 15:00 23:00 07:00 Intake Total 1100 ml Output Total 1500 ml Balance -400 ml Results Result Diagram: 7/30/17 0721 7/30/17 0721 Results 24 hrs Laboratory Tests Test 03/17/17 17:22 03/17/17 20:43 03/18/17 02:04 03/18/17 07:21 Bedside Glucose 178 136 282 H White Blood Count 6.0 # Red Blood Count 4.14 L Hemoglobin 12.8 L Hematocrit 38.9 L Mean Corpuscular Volume 94.0 Mean Corpuscular Hemoglobin 30.9 Mean Corpuscular Hemoglobin Concent 32.9 Red Cell Distribution Width 13.0 Platelet Count 323 Mean Platelet Volume 9.9 Neutrophils % 63.6 Lymphocytes % 21.6 Monocytes % 11.8 H Eosinophils % 1.5 Basophils % 1.2 Nucleated Red Blood Cells % 0.0 Neutrophils # 3.8 Lymphocytes # 1.3 Monocytes # 0.7 Eosinophils # 0.1 Basophils # 0.1 Nucleated Red Blood Cells # 0.0 Sodium Level 140 Potassium Level 4.5 Chloride Level 103 Carbon Dioxide Level 24 Anion Gap 18 H Blood Urea Nitrogen 9 Creatinine 0.92 Glucose Level 299 H Calcium Level 8.8 Test 03/18/17 08:18 03/18/17 12:55 Bedside Glucose 250 H 287 H Medications Medications Current Medications Amlodipine Besylate (Norvasc) 5 mg DAILY PO Last administered on 03/18/17 08: 38; Admin Dose 5 MG; Start 03/16/17 at 09:00 Valsartan (Diovan) 80 mg DAILY PO ; Start 03/16/17 at 09:00 Cholecalciferol (Vitamin D) 2,000 unit DAILY PO Last administered on 03/18/17 08:37; Admin Dose 2,000 UNIT; Start 03/15/17 at 11:30 Diagnostic Test (Pha) 1 ea 1 ea 02 XX Last administered on 03/17/17 02:14; Admin Dose 1 EA; Start 03/16/17 at 02:00 Piperacillin Sod/ Tazobactam Sod (Zosyn 3.375gm/ 100 ml (Pmx)) 100 ml @ 200 mls /hr Q6 IVPB Last administered on 03/18/17 12:59; Admin Dose 200 MLS/HR; Start 03/15/17 at 13:00 Linagliptin (Tradjenta) 5 mg DAILY PO Last administered on 03/18/17 08:37; Admin Dose 5 MG; Start 03/16/17 at 09:00 Hydralazine HCl (Apresoline) 10 mg Q6H PRN IV SBP>160 Last administered on 03/17 03:39; Admin Dose 10 MG; Start 03/15/17 at 11:00 Ondansetron HCl (Zofran Inj) 4 mg Q6H PRN IV NAUSEA AND/OR VOMITING Last administered on 03/15/17 16:39; Admin Dose 4 MG; Start 03/15/17 at 11:00 Acetaminophen (Tylenol Tab) 650 mg Q6H PRN PO PAIN LEVEL 1-3 OR FEVER Last administered on 03/17/17 20:48; Admin Dose 650 MG; Start 03/15/17 at 11:00 Acetaminophen (Tylenol Supp) 650 mg Q6H PRN [place] PAIN LEVEL 1-3 OR FEVER; Start 03/15/17 at 11:00 Morphine Sulfate (morphine) 2 mg Q4H PRN IV SEVERE PAIN LEVEL 7-10 Last administered on 03/18/17 10:40; Admin Dose 2 MG; Start 03/15/17 at 11:00 Docusate Sodium (Colace) 100 mg Q12H PRN PO CONSTIPATION; Start 03/15/17 at 11: 00 Heparin Sodium (Porcine) (Heparin (5000 Units/0.5 ml)) 5,000 unit Q12 SC Last administered on 03/18/17 08:44; Admin Dose 5,000 UNIT; Start 03/15/17 at 21:00 Miscellaneous Information 1 ea NOTE XX ; Start 03/15/17 at 11:30 Glucose (Glutose) 15 gm Q15M PRN PO DECREASED GLUCOSE; Start 03/15/17 at 11:30 Glucose (Glutose) 22.5 gm Q15M PRN PO DECREASED GLUCOSE; Start 03/15/17 at 11: 30 Dextrose (D50w Syringe) 25 ml Q15M PRN IV DECREASED GLUCOSE; Start 03/15/17 at 11:30 Dextrose (D50w Syringe) 50 ml Q15M PRN IV DECREASED GLUCOSE; Start 03/15/17 at 11:30 Glucagon (Glucagen) 1 mg Q15M PRN IM DECREASED GLUCOSE; Start 03/15/17 at 11:30 Glucose (Glutose) 15 gm Q15M PRN BUCCAL DECREASED GLUCOSE; Start 03/15/17 at 11 :30 Aspirin (Aspirin) 81 mg DAILY PO Last administered on 03/18/17 08:37; Admin Dose 81 MG; Start 03/16/17 at 09:00 Guaifenesin/ Dextromethorphan 1 tab 1 tab BID PO Last administered on 08:37; Admin Dose 1 TAB; Start 03/16/17 at 21:00 Vancomycin HCl/ Sodium Chloride (Vancocin/NS) 250 ml @ 83.333 mls/ hr Q12H IVPB Last administered on 03/18/17 05:38; Admin Dose 83.333 MLS/HR; Start at 18:00 Benzonatate (Tessalon) 100 mg TID PRN PO cough Last administered on 03/18/17 06:41; Admin Dose 100 MG; Start 03/17/17 at 16:00 Insulin Glargine (Lantus) 30 unit HS SC ; Start 03/18/17 at 21:00 Miscellaneous Information (*Rx Drug Level Order Reminder*) VANCOMYCIN TROUGH AT 0500 ONCE ONCE XX ; Start 03/19/17 at 05:00; Stop 03/19/17 at 05:01 TEQUILA REYES NP Mar 18, 2017 14:04
--- NOTE | 2017-03-18 15:55 | PN ---
Date/Time of Note Date/Time of Note DATE: 03/18/17 TIME: 15:53 Assessment/Plan VTE Prophylaxis VTE Prophylaxis Intervention: SCD's Lines/Catheters IV Catheter Type (from Nrs): Saline Lock Urinary Cath still in place: No Assessment/Plan Assessment/Plan 61 yo M with obesity, poorly controled DM2 admitted for sepsis 2/2 group B strep bacteremia, suspect origin diabetic foot infection of L great toe. Imaging with OM. 1. diabetic foot infection -abx as per ID -MRI with OM -podiatry on consult - of note, length of therapy for abx to depend on intervention. If pt gets toe amputation, abx can likely be stopped shortly thereafter 2. Severe sepsis from GBS bacteremia: resolved. ID following -cont abx-->of note rationale for vanc unclear. Consider discussing with ID tomorrow 3. Acute kidney injury likely secondary to severe sepsis RESOLVED 4. Hyperglycemia with type 2 diabetes. -Continue Accu-Cheks/ISS. cont current DM regimen though I am skeptical regarding adherence to home regimen or frequency/veracity of home BG checks -Hold acarbose and metformin for now. -CDE/RD evals 6. Essential hypertension. -Continue antihypertensives. 7. Morbid obesity. -RD eval 8. Dyslipidemia. -On statin 9. PAD -Low-dose aspirin. -vascular surgery following 10. History of cerebrovascular accident. No present issues. 11.Tiny 6.5 mm micronodule in the anteromedial right upper lobe -Follow-up CT in 6 months to one year recommended. DVT prophylaxis: Heparin PUD prophylaxis: not indicated Subjective 24 Hr Interval Summary Free Text/Dictation Pt dysphoric when I informed him toe amputation may be advised Exam/Review of Systems Vital Signs Vitals Vital Signs Date Time Temp Pulse Resp B/P Pulse Ox O2 Delivery O2 Flow Rate FiO2 03/18/17 14:51 84 20 131/63 03/18/17 12:43 2.0 03/18/17 12:32 84 21 03/18/17 12:15 98.6 03/16/17 22:20 Nasal Cannula Intake and Output 03/17/17 03/17/17 03/18/17 15:00 23:00 07:00 Intake Total 1100 ml Output Total 1500 ml Balance -400 ml Exam laying in bed, large neck no mrg lungs clear obese L foot with 3 cm on toe base, +fungal toenails MRI with L great toe OM Results Result Diagram: 03/18/17 0721 03/18/17 0721 Results 24 hrs Laboratory Tests Test 03/17/17 17:22 03/17/17 20:43 03/18/17 02:04 03/18/17 07:21 Bedside Glucose 178 136 282 H White Blood Count 6.0 # Red Blood Count 4.14 L Hemoglobin 12.8 L Hematocrit 38.9 L Mean Corpuscular Volume 94.0 Mean Corpuscular Hemoglobin 30.9 Mean Corpuscular Hemoglobin Concent 32.9 Red Cell Distribution Width 13.0 Platelet Count 323 Mean Platelet Volume 9.9 Neutrophils % 63.6 Lymphocytes % 21.6 Monocytes % 11.8 H Eosinophils % 1.5 Basophils % 1.2 Nucleated Red Blood Cells % 0.0 Neutrophils # 3.8 Lymphocytes # 1.3 Monocytes # 0.7 Eosinophils # 0.1 Basophils # 0.1 Nucleated Red Blood Cells # 0.0 Sodium Level 140 Potassium Level 4.5 Chloride Level 103 Carbon Dioxide Level 24 Anion Gap 18 H Blood Urea Nitrogen 9 Creatinine 0.92 Glucose Level 299 H Calcium Level 8.8 Test 03/18/17 08:18 03/18/17 12:55 Bedside Glucose 250 H 287 H Medications Medications Current Medications Amlodipine Besylate (Norvasc) 5 mg DAILY PO Last administered on 03/18/17 08: 38; Admin Dose 5 MG; Start 03/16/17 at 09:00 Valsartan (Diovan) 80 mg DAILY PO ; Start 03/16/17 at 09:00 Cholecalciferol (Vitamin D) 2,000 unit DAILY PO Last administered on 03/18/17 08:37; Admin Dose 2,000 UNIT; Start 03/15/17 at 11:30 Diagnostic Test (Pha) 1 ea 1 ea 02 XX Last administered on 03/17/17 02:14; Admin Dose 1 EA; Start 03/16/17 at 02:00 Piperacillin Sod/ Tazobactam Sod (Zosyn 3.375gm/ 100 ml (Pmx)) 100 ml @ 200 mls /hr Q6 IVPB Last administered on 03/18/17 12:59; Admin Dose 200 MLS/HR; Start 03/15/17 at 13:00 Linagliptin (Tradjenta) 5 mg DAILY PO Last administered on 03/18/17 08:37; Admin Dose 5 MG; Start 03/16/17 at 09:00 Hydralazine HCl (Apresoline) 10 mg Q6H PRN IV SBP>160 Last administered on 03/17 03:39; Admin Dose 10 MG; Start 03/15/17 at 11:00 Ondansetron HCl (Zofran Inj) 4 mg Q6H PRN IV NAUSEA AND/OR VOMITING Last administered on 03/15/17 16:39; Admin Dose 4 MG; Start 03/15/17 at 11:00 Acetaminophen (Tylenol Tab) 650 mg Q6H PRN PO PAIN LEVEL 1-3 OR FEVER Last administered on 03/17/17 20:48; Admin Dose 650 MG; Start 03/15/17 at 11:00 Acetaminophen (Tylenol Supp) 650 mg Q6H PRN [place] PAIN LEVEL 1-3 OR FEVER; Start 03/15/17 at 11:00 Morphine Sulfate (morphine) 2 mg Q4H PRN IV SEVERE PAIN LEVEL 7-10 Last administered on 03/18/17 10:40; Admin Dose 2 MG; Start 03/15/17 at 11:00 Docusate Sodium (Colace) 100 mg Q12H PRN PO CONSTIPATION; Start 03/15/17 at 11: 00 Heparin Sodium (Porcine) (Heparin (5000 Units/0.5 ml)) 5,000 unit Q12 SC Last administered on 03/18/17 08:44; Admin Dose 5,000 UNIT; Start 03/15/17 at 21:00 Miscellaneous Information 1 ea NOTE XX ; Start 03/15/17 at 11:30 Glucose (Glutose) 15 gm Q15M PRN PO DECREASED GLUCOSE; Start 03/15/17 at 11:30 Glucose (Glutose) 22.5 gm Q15M PRN PO DECREASED GLUCOSE; Start 03/15/17 at 11: 30 Dextrose (D50w Syringe) 25 ml Q15M PRN IV DECREASED GLUCOSE; Start 03/15/17 at 11:30 Dextrose (D50w Syringe) 50 ml Q15M PRN IV DECREASED GLUCOSE; Start 03/15/17 at 11:30 Glucagon (Glucagen) 1 mg Q15M PRN IM DECREASED GLUCOSE; Start 03/15/17 at 11:30 Glucose (Glutose) 15 gm Q15M PRN BUCCAL DECREASED GLUCOSE; Start 03/15/17 at 11 :30 Aspirin (Aspirin) 81 mg DAILY PO Last administered on 03/18/17 08:37; Admin Dose 81 MG; Start 03/16/17 at 09:00 Guaifenesin/ Dextromethorphan 1 tab 1 tab BID PO Last administered on 08:37; Admin Dose 1 TAB; Start 03/16/17 at 21:00 Vancomycin HCl/ Sodium Chloride (Vancocin/NS) 250 ml @ 83.333 mls/ hr Q12H IVPB Last administered on 03/18/17 05:38; Admin Dose 83.333 MLS/HR; Start at 18:00 Benzonatate (Tessalon) 100 mg TID PRN PO cough Last administered on 03/18/17 06:41; Admin Dose 100 MG; Start 03/17/17 at 16:00 Insulin Glargine (Lantus) 30 unit HS SC ; Start 03/18/17 at 21:00 Miscellaneous Information (*Rx Drug Level Order Reminder*) VANCOMYCIN TROUGH AT 0500 ONCE ONCE XX ; Start 03/19/17 at 05:00; Stop 03/19/17 at 05:01 DONNA VELÁZQUEZ MD Mar 18, 2017 15:55
[2017-03-18] MEDS: INSULIN GLARGINE [LANtus] 3 ML PEN SC SCH (20:35)
--- NOTE | 2017-03-18 22:11 | CONS ---
Date/Time of Note Date/Time of Note DATE: 03/18/17 TIME: 22:10 Assessment/Plan Assessment/Plan Chief Complaint/Hosp Course 61-year-old obese male with a past medical history of hypertension, CVA , lung mass, former smoker, dyslipidemia, type 2 diabetes, diabetic foot ulcers , peripheral vascular disease, peripheral neuropathy, - getting admitted for Infected left great toe diabetic foot ulcer.Renal has been consulted for Acute kidney injury. Problems: Additional Assessment/Plan 1. 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 Infected left great toe diabetic foot ulcer. 3. Severe sepsis with lactic acidosis 4. Hypoxic respiratory failure most likely secondary to severe sepsis 5. Type II DM 6. Hypertension 7. Hyperlpidemia Plan: Urine studies unremarkable, Uric acid normal, Cr improved to normal, BS running high, need better glycemic control IV abx as per ID, renally dose all abx, avoid Ibuprofen for pain control BP stable will continue to follow up. Consultation Date/Type/Reason Admit Date/Time Mar 15, 2017 at 09:42 Initial Consult Date 03/15/17 Type of Consultation: NEPHROLOGY Referring Provider: JOSÉ LILLY Exam/Review of Systems Vital Signs Vitals Vital Signs Date Time Temp Pulse Resp B/P Pulse Ox O2 Delivery O2 Flow Rate FiO2 03/18/17 20:36 95 2.0 03/18/17 20:36 79 18 Nasal Cannula 03/18/17 19:46 98.1 131/73 03/18/17 12:32 21 Intake and Output 03/17/17 03/17/17 03/18/17 15:00 23:00 07:00 Intake Total 1100 ml Output Total 1500 ml Balance -400 ml Results Result Diagram: 03/18/17 0721 03/18/17 0721 Results 24 hrs Laboratory Tests Test 03/18/17 02:04 03/18/17 07:21 03/18/17 08:18 03/18/17 12:55 Bedside Glucose 282 H 250 H 287 H White Blood Count 6.0 # Red Blood Count 4.14 L Hemoglobin 12.8 L Hematocrit 38.9 L Mean Corpuscular Volume 94.0 Mean Corpuscular Hemoglobin 30.9 Mean Corpuscular Hemoglobin Concent 32.9 Red Cell Distribution Width 13.0 Platelet Count 323 Mean Platelet Volume 9.9 Neutrophils % 63.6 Lymphocytes % 21.6 Monocytes % 11.8 H Eosinophils % 1.5 Basophils % 1.2 Nucleated Red Blood Cells % 0.0 Neutrophils # 3.8 Lymphocytes # 1.3 Monocytes # 0.7 Eosinophils # 0.1 Basophils # 0.1 Nucleated Red Blood Cells # 0.0 Sodium Level 140 Potassium Level 4.5 Chloride Level 103 Carbon Dioxide Level 24 Anion Gap 18 H Blood Urea Nitrogen 9 Creatinine 0.92 Glucose Level 299 H Calcium Level 8.8 Test 03/18/17 17:15 03/18/17 20:29 Bedside Glucose 325 H 282 H Medications Medications Current Medications Amlodipine Besylate (Norvasc) 5 mg DAILY PO Last administered on 03/18/17 08: 38; Admin Dose 5 MG; Start 03/16/17 at 09:00 Valsartan (Diovan) 80 mg DAILY PO ; Start 03/16/17 at 09:00 Cholecalciferol (Vitamin D) 2,000 unit DAILY PO Last administered on 03/18/17 08:37; Admin Dose 2,000 UNIT; Start 03/15/17 at 11:30 Diagnostic Test (Pha) 1 ea 1 ea 02 XX Last administered on 03/17/17 02:14; Admin Dose 1 EA; Start 03/16/17 at 02:00 Piperacillin Sod/ Tazobactam Sod (Zosyn 3.375gm/ 100 ml (Pmx)) 100 ml @ 200 mls /hr Q6 IVPB Last administered on 03/18/17 17:27; Admin Dose 200 MLS/HR; Start 03/15/17 at 13:00 Linagliptin (Tradjenta) 5 mg DAILY PO Last administered on 03/18/17 08:37; Admin Dose 5 MG; Start 03/16/17 at 09:00 Hydralazine HCl (Apresoline) 10 mg Q6H PRN IV SBP>160 Last administered on 03/17 03:39; Admin Dose 10 MG; Start 03/15/17 at 11:00 Ondansetron HCl (Zofran Inj) 4 mg Q6H PRN IV NAUSEA AND/OR VOMITING Last administered on 03/15/17 16:39; Admin Dose 4 MG; Start 03/15/17 at 11:00 Acetaminophen (Tylenol Tab) 650 mg Q6H PRN PO PAIN LEVEL 1-3 OR FEVER Last administered on 03/17/17 20:48; Admin Dose 650 MG; Start 03/15/17 at 11:00 Acetaminophen (Tylenol Supp) 650 mg Q6H PRN [place] PAIN LEVEL 1-3 OR FEVER; Start 03/15/17 at 11:00 Morphine Sulfate (morphine) 2 mg Q4H PRN IV SEVERE PAIN LEVEL 7-10 Last administered on 03/18/17 10:40; Admin Dose 2 MG; Start 03/15/17 at 11:00 Docusate Sodium (Colace) 100 mg Q12H PRN PO CONSTIPATION; Start 03/15/17 at 11: 00 Heparin Sodium (Porcine) (Heparin (5000 Units/0.5 ml)) 5,000 unit Q12 SC Last administered on 03/18/17 20:34; Admin Dose 5,000 UNIT; Start 03/15/17 at 21:00 Miscellaneous Information 1 ea NOTE XX ; Start 03/15/17 at 11:30 Glucose (Glutose) 15 gm Q15M PRN PO DECREASED GLUCOSE; Start 03/15/17 at 11:30 Glucose (Glutose) 22.5 gm Q15M PRN PO DECREASED GLUCOSE; Start 03/15/17 at 11: 30 Dextrose (D50w Syringe) 25 ml Q15M PRN IV DECREASED GLUCOSE; Start 03/15/17 at 11:30 Dextrose (D50w Syringe) 50 ml Q15M PRN IV DECREASED GLUCOSE; Start 03/15/17 at 11:30 Glucagon (Glucagen) 1 mg Q15M PRN IM DECREASED GLUCOSE; Start 03/15/17 at 11:30 Glucose (Glutose) 15 gm Q15M PRN BUCCAL DECREASED GLUCOSE; Start 03/15/17 at 11 :30 Aspirin (Aspirin) 81 mg DAILY PO Last administered on 03/18/17 08:37; Admin Dose 81 MG; Start 03/16/17 at 09:00 Guaifenesin/ Dextromethorphan 1 tab 1 tab BID PO Last administered on 08:37; Admin Dose 1 TAB; Start 03/16/17 at 21:00 Vancomycin HCl/ Sodium Chloride (Vancocin/NS) 250 ml @ 83.333 mls/ hr Q12H IVPB Last administered on 03/18/17 18:05; Admin Dose 83.333 MLS/HR; Start at 18:00 Benzonatate (Tessalon) 100 mg TID PRN PO cough Last administered on 03/18/17 06:41; Admin Dose 100 MG; Start 03/17/17 at 16:00 Insulin Glargine (Lantus) 30 unit HS SC Last administered on 03/18/17 20:35; Admin Dose 30 UNIT; Start 03/18/17 at 21:00 Miscellaneous Information (*Rx Drug Level Order Reminder*) VANCOMYCIN TROUGH AT 0500 ONCE ONCE XX ; Start 03/19/17 at 05:00; Stop 03/19/17 at 05:01 SCOTT LAU MD Mar 18, 2017 22:11
[2017-03-19] MEDS: PIPER-TAZO 3.375 GM IV (PMX) 100 ML IVPB SCH ×5 (00:15→23:31)
[2017-03-19] MEDS: ACETAMINOPHEN 325 MG TAB PO PRN ×2 (00:19→14:03)
[2017-03-19] MEDS: ACCU-CHEK XX SCH (02:19)
[2017-03-19] MEDS: hydrALAzine 20 MG INJ IV PRN ×2 (03:24→08:40)
[2017-03-19 03:27] VITALS: BP 176/87; PULSE 72
[2017-03-19 04:50] VITALS: BP 165/74; PULSE 79
[2017-03-19 05:36] VITALS: BP 146/66; PULSE 71
[2017-03-19] MEDS: VANCOMYCIN 1.25 GM in SOD CHLORIDE 0.9% 250 ML IVPB SCH ×2 (06:57→18:24)
[2017-03-19 07:45] VITALS: BP 164/84; RESP 20
[2017-03-19] MEDS: ALBUTEROL/IPRATROPIUM (NEB) 3 ML AMP HHN SCH ×4 (08:11→20:31)
[2017-03-19] MEDS: INSULIN ASPART [NOVOLOG] 3 ML PEN SC SCH ×7 (08:38→20:06)
[2017-03-19] MEDS: LINAGLIPTIN 5 MG TABLET PO SCH (08:40)
[2017-03-19] MEDS: GUAIFENESIN/DM (SR) TAB PO SCH ×2 (08:40→20:03)
[2017-03-19] MEDS: AMLODIPINE 5 MG TAB PO SCH (08:40)
[2017-03-19] MEDS: ASPIRIN 81 MG TAB PO SCH (08:40)
[2017-03-19] MEDS: BENZONATATE 100 MG CAP PO PRN (08:40)
[2017-03-19] MEDS: CHOLECALCIFEROL 2,000 UNIT CAP PO SCH (08:40)
[2017-03-19] MEDS: HEPARIN 5,000 UNIT/0.5 ML VIAL SC SCH ×2 (08:42→20:04)
[2017-03-19 10:52] LABS: THYROID STIMULATING HORMONE 0.932 MIU/L (0.465-4.680)
--- NOTE | 2017-03-19 13:09 | CONS ---
Date/Time of Note Date/Time of Note DATE: 03/19/17 TIME: 13:07 Assessment/Plan Assessment/Plan Chief Complaint/Hosp Course 61-year-old obese male with a past medical history of hypertension, CVA , lung mass, former smoker, dyslipidemia, type 2 diabetes, diabetic foot ulcers , peripheral vascular disease, peripheral neuropathy, - admitted for Infected left great toe diabetic foot ulcer.Renal has been consulted for Acute kidney injury. Problems: Additional Assessment/Plan 1. 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 Infected left great toe diabetic foot ulcer. 3. Severe sepsis with lactic acidosis 4. Hypoxic respiratory failure most likely secondary to severe sepsis 5. Type II DM 6. Hypertension 7. Hyperlpidemia Plan: Urine studies unremarkable, Uric acid normal, Cr improved to normal, BS running high, need better glycemic control IV abx as per ID, renally dose all abx, avoid Ibuprofen for pain control BP stable will continue to follow up. Consultation Date/Type/Reason Admit Date/Time Mar 15, 2017 at 09:42 Initial Consult Date 03/15/17 Type of Consultation: NEPHROLOGY Referring Provider: JOSÉ LILLY Exam/Review of Systems Vital Signs Vitals Vital Signs Date Time Temp Pulse Resp B/P Pulse Ox O2 Delivery O2 Flow Rate FiO2 03/19/17 08:11 85 18 92 03/19/17 07:45 97.9 164/84 03/18/17 21:30 Nasal Cannula 2.0 03/18/17 12:32 21 Intake and Output 03/18/17 03/18/17 03/19/17 15:00 23:00 07:00 Intake Total 850 ml 1290 ml 650 ml Output Total 1000 ml 925 ml 1000 ml Balance -150 ml 365 ml -350 ml Exam Constitutional: alert Respiratory: clear to auscultation, diminished breath sounds Cardiovascular: regular rate and rhythm Gastrointestinal: soft Musculoskeletal: nl extremities to inspection, left foot great toe ulcer with dressing on Neurological: [employer]DELING [employer] II-XII intact, nl mental status, nl speech, nl strength Results Result Diagram: 03/18/17 0721 03/18/17 0721 Results 24 hrs Laboratory Tests Test 03/18/17 17:15 03/18/17 20:29 03/19/17 02:16 03/19/17 05:14 Bedside Glucose 325 H 282 H 269 H Vancomycin Level Trough 13.9 Test 03/19/17 07:44 03/19/17 11:17 Bedside Glucose 273 H 232 H Medications Medications Current Medications Amlodipine Besylate (Norvasc) 5 mg DAILY PO Last administered on 03/19/17 08: 40; Admin Dose 5 MG; Start 03/16/17 at 09:00 Cholecalciferol (Vitamin D) 2,000 unit DAILY PO Last administered on 03/19/17 08:40; Admin Dose 2,000 UNIT; Start 03/15/17 at 11:30 Diagnostic Test (Pha) 1 ea 1 ea 02 XX Last administered on 03/19/17 02:19; Admin Dose 1 EA; Start 03/16/17 at 02:00 Piperacillin Sod/ Tazobactam Sod (Zosyn 3.375gm/ 100 ml (Pmx)) 100 ml @ 200 mls /hr Q6 IVPB Last administered on 03/19/17 12:01; Admin Dose 200 MLS/HR; Start 03/15/17 at 13:00 Linagliptin (Tradjenta) 5 mg DAILY PO Last administered on 03/19/17 08:40; Admin Dose 5 MG; Start 03/16/17 at 09:00 Hydralazine HCl (Apresoline) 10 mg Q6H PRN IV SBP>160 Last administered on 03/19 03:24; Admin Dose 10 MG; Start 03/15/17 at 11:00 Ondansetron HCl (Zofran Inj) 4 mg Q6H PRN IV NAUSEA AND/OR VOMITING Last administered on 03/15/17 16:39; Admin Dose 4 MG; Start 03/15/17 at 11:00 Acetaminophen (Tylenol Tab) 650 mg Q6H PRN PO PAIN LEVEL 1-3 OR FEVER Last administered on 03/19/17 00:19; Admin Dose 650 MG; Start 03/15/17 at 11:00 Acetaminophen (Tylenol Supp) 650 mg Q6H PRN [place] PAIN LEVEL 1-3 OR FEVER; Start 03/15/17 at 11:00 Morphine Sulfate (morphine) 2 mg Q4H PRN IV SEVERE PAIN LEVEL 7-10 Last administered on 03/18/17 10:40; Admin Dose 2 MG; Start 03/15/17 at 11:00 Docusate Sodium (Colace) 100 mg Q12H PRN PO CONSTIPATION; Start 03/15/17 at 11: 00 Heparin Sodium (Porcine) (Heparin (5000 Units/0.5 ml)) 5,000 unit Q12 SC Last administered on 03/19/17 08:42; Admin Dose 5,000 UNIT; Start 03/15/17 at 21:00 Miscellaneous Information 1 ea NOTE XX ; Start 03/15/17 at 11:30 Glucose (Glutose) 15 gm Q15M PRN PO DECREASED GLUCOSE; Start 03/15/17 at 11:30 Glucose (Glutose) 22.5 gm Q15M PRN PO DECREASED GLUCOSE; Start 03/15/17 at 11: 30 Dextrose (D50w Syringe) 25 ml Q15M PRN IV DECREASED GLUCOSE; Start 03/15/17 at 11:30 Dextrose (D50w Syringe) 50 ml Q15M PRN IV DECREASED GLUCOSE; Start 03/15/17 at 11:30 Glucagon (Glucagen) 1 mg Q15M PRN IM DECREASED GLUCOSE; Start 03/15/17 at 11:30 Glucose (Glutose) 15 gm Q15M PRN BUCCAL DECREASED GLUCOSE; Start 03/15/17 at 11 :30 Aspirin (Aspirin) 81 mg DAILY PO Last administered on 03/19/17 08:40; Admin Dose 81 MG; Start 03/16/17 at 09:00 Guaifenesin/ Dextromethorphan 1 tab 1 tab BID PO Last administered on 08:40; Admin Dose 1 TAB; Start 03/16/17 at 21:00 Vancomycin HCl/ Sodium Chloride (Vancocin/NS) 250 ml @ 83.333 mls/ hr Q12H IVPB Last administered on 03/19/17 06:57; Admin Dose 83.333 MLS/HR; Start at 18:00 Benzonatate (Tessalon) 100 mg TID PRN PO cough Last administered on 03/19/17 08:40; Admin Dose 100 MG; Start 03/17/17 at 16:00 Insulin Glargine (Lantus) 30 unit HS SC Last administered on 03/18/17 20:35; Admin Dose 30 UNIT; Start 03/18/17 at 21:00 SCOTT LAU MD Mar 19, 2017 13:09
--- NOTE | 2017-03-19 14:21 | PN ---
Date/Time of Note Date/Time of Note DATE: 03/19/17 TIME: 14:21 Assessment/Plan VTE Prophylaxis VTE Prophylaxis Intervention: heparin Lines/Catheters IV C[facility]ter Type (from [facility] Peripheral IV Urinary Cath still in place: No Assessment/Plan Chief Complaint/Hosp Course 1. Infected left great toe diabetic foot ulcer. MRI consistent with focal osteomyelitis of the terminal tuft of the great toe distal phalanx laterally with adjacent soft tissue mass that could be a phlegmon or early abscess. -Continue wound care, broad-spectrum IV antibiotics-check with ID regarding course of treatment and consider PICC line if indicated. -Follow-up with ID and podiatry recommendations on further management. 2. GBS bacteremia with severe sepsis secondary to #1. Resolved -Treatment as per above 3. Hypoxic respiratory failure most likely secondary to severe sepsis. Resolved. -Continue bronchodilators PRN. 4. Acute kidney injury likely secondary to severe sepsis. Resolved. -Continue to monitor. Follow-up with nephrology recommendations. 5. Hyperglycemia with type 2 diabetes. -Continue Accu-Cheks/ISS. Increase pre-meals to 10 units and continue Lantus 30 units -Resume metformin and continue Tradjenta. 6. Essential hypertension. -Continue antihypertensives. 7. Morbid obesity. -Weight reduction and therapeutic lifestyle changes upon discharge. 8. Dyslipidemia. -On statin 9. PAD -Low-dose aspirin. 10. History of cerebrovascular accident. No present issues. 11.Tiny 6.5 mm micronodule in the anteromedial right upper lobe -Follow-up CT in 6 months to one year recommended. DVT prophylaxis: Heparin PUD prophylaxis: Pepcid. Plan: follow-up with recommendation from podiatry regarding medical versus surgical management of #1. Will consider PICC line in anticipation for long- term IV antibiotics. Case discussed with Dr. Rivero Problems: Subjective 24 Hr Interval Summary Free Text/Dictation Patient remains afebrile. Denies chest pain, fecal to breathing or other discomfort. Has been tolerating diet and activities well. Exam/Review of Systems Vital Signs Vitals Vital Signs Date Time Temp Pulse Resp B/P Pulse Ox O2 Delivery O2 Flow Rate FiO2 03/19/17 14:08 75 18 96 Nasal Cannula 2.0 03/19/17 07:45 97.9 164/84 03/18/17 12:32 21 Intake and Output 03/18/17 03/18/17 03/19/17 15:00 23:00 07:00 Intake Total 850 ml 1290 ml 650 ml Output Total 1000 ml 925 ml 1000 ml Balance -150 ml 365 ml -350 ml Exam General: Obese male in no acute distress. HEENT: Normocephalic, Atraumatic, No laceration or hematoma; Eyes: PEERL, Conjunctiva clear, Anicteric sclera Neck: Supple without any lymphadenopathy, nontender, no JVD, no carotid bruits, trachea midline, no thyromegaly Cardiac: S1, S2 auscultated, regular rhythm and rate, no mumurs or gallop Pulmonary: Normal respiratory effort. Chest clear to auscultation bilaterally, no adventitious breath sounds GI: Abdomen obese, soft, Non tender, non- distended, no masses, no rebound tenderness or guarding. Bowel sounds active on all four quadrants Genitourinary: Deferred Extremities: +Erythema /warmth/severe tenderness to the dorsum of the left foot Ulceration on left great toe-erythema and tenderness improving. Pulses [1+] bilaterally. Full ROM on all four extremities. No focal weakness appreciated. Neurologic: Alert to person, place, time, and situation. Affect appropriate, intact sensation. Skin: Clean,dry, and intact. No ecchymosis, no rashes, or lesions Results Result Diagram: 03/18/17 0721 03/18/17 0721 Results 24 hrs Laboratory Tests Test 03/18/17 17:15 03/18/17 20:29 03/19/17 02:16 03/19/17 05:14 Bedside Glucose 325 H 282 H 269 H Vancomycin Level Trough 13.9 Test 03/19/17 07:44 03/19/17 11:17 Bedside Glucose 273 H 232 H Medications Medications Current Medications Amlodipine Besylate (Norvasc) 5 mg DAILY PO Last administered on 03/19/17 08: 40; Admin Dose 5 MG; Start 03/16/17 at 09:00 Cholecalciferol (Vitamin D) 2,000 unit DAILY PO Last administered on 03/19/17 08:40; Admin Dose 2,000 UNIT; Start 03/15/17 at 11:30 Diagnostic Test (Pha) 1 ea 1 ea 02 XX Last administered on 03/19/17 02:19; Admin Dose 1 EA; Start 03/16/17 at 02:00 Piperacillin Sod/ Tazobactam Sod (Zosyn 3.375gm/ 100 ml (Pmx)) 100 ml @ 200 mls /hr Q6 IVPB Last administered on 03/19/17 12:01; Admin Dose 200 MLS/HR; Start 03/15/17 at 13:00 Linagliptin (Tradjenta) 5 mg DAILY PO Last administered on 03/19/17 08:40; Admin Dose 5 MG; Start 03/16/17 at 09:00 Hydralazine HCl (Apresoline) 10 mg Q6H PRN IV SBP>160 Last administered on 03/19 03:24; Admin Dose 10 MG; Start 03/15/17 at 11:00 Ondansetron HCl (Zofran Inj) 4 mg Q6H PRN IV NAUSEA AND/OR VOMITING Last administered on 03/15/17 16:39; Admin Dose 4 MG; Start 03/15/17 at 11:00 Acetaminophen (Tylenol Tab) 650 mg Q6H PRN PO PAIN LEVEL 1-3 OR FEVER Last administered on 03/19/17 14:03; Admin Dose 650 MG; Start 03/15/17 at 11:00 Acetaminophen (Tylenol Supp) 650 mg Q6H PRN [place] PAIN LEVEL 1-3 OR FEVER; Start 03/15/17 at 11:00 Morphine Sulfate (morphine) 2 mg Q4H PRN IV SEVERE PAIN LEVEL 7-10 Last administered on 03/18/17 10:40; Admin Dose 2 MG; Start 03/15/17 at 11:00 Docusate Sodium (Colace) 100 mg Q12H PRN PO CONSTIPATION; Start 03/15/17 at 11: 00 Heparin Sodium (Porcine) (Heparin (5000 Units/0.5 ml)) 5,000 unit Q12 SC Last administered on 03/19/17 08:42; Admin Dose 5,000 UNIT; Start 03/15/17 at 21:00 Miscellaneous Information 1 ea NOTE XX ; Start 03/15/17 at 11:30 Glucose (Glutose) 15 gm Q15M PRN PO DECREASED GLUCOSE; Start 03/15/17 at 11:30 Glucose (Glutose) 22.5 gm Q15M PRN PO DECREASED GLUCOSE; Start 03/15/17 at 11: 30 Dextrose (D50w Syringe) 25 ml Q15M PRN IV DECREASED GLUCOSE; Start 03/15/17 at 11:30 Dextrose (D50w Syringe) 50 ml Q15M PRN IV DECREASED GLUCOSE; Start 03/15/17 at 11:30 Glucagon (Glucagen) 1 mg Q15M PRN IM DECREASED GLUCOSE; Start 03/15/17 at 11:30 Glucose (Glutose) 15 gm Q15M PRN BUCCAL DECREASED GLUCOSE; Start 03/15/17 at 11 :30 Aspirin (Aspirin) 81 mg DAILY PO Last administered on 03/19/17 08:40; Admin Dose 81 MG; Start 03/16/17 at 09:00 Guaifenesin/ Dextromethorphan 1 tab 1 tab BID PO Last administered on 08:40; Admin Dose 1 TAB; Start 03/16/17 at 21:00 Vancomycin HCl/ Sodium Chloride (Vancocin/NS) 250 ml @ 83.333 mls/ hr Q12H IVPB Last administered on 03/19/17 06:57; Admin Dose 83.333 MLS/HR; Start at 18:00 Benzonatate (Tessalon) 100 mg TID PRN PO cough Last administered on 03/19/17 08:40; Admin Dose 100 MG; Start 03/17/17 at 16:00 Insulin Glargine (Lantus) 30 unit HS SC Last administered on 03/18/17 20:35; Admin Dose 30 UNIT; Start 03/18/17 at 21:00 Guaifenesin/ Dextromethorphan (Robitussin Dm Liquid Cup) 10 ml Q4H PRN PO cough ; Start 03/19/17 at 14:30 BRANDON HERRERA NP Mar 19, 2017 14:21
[2017-03-19 15:14] VITALS: BP 138/65; RESP 18
[2017-03-19] MEDS: GUAIFENESIN/DM 5ML CUP PO PRN (17:57)
[2017-03-19] MEDS: metFORMIN 500 MG TAB PO SCH (18:24)
--- NOTE | 2017-03-19 18:46 | CONS ---
Date/Time of Note Date/Time of Note DATE: 03/19/17 TIME: 18:30 Assessment/Plan Assessment/Plan Chief Complaint/Hosp Course ID PROGRESS NOTE 24H INTERVAL SUMMARY CURRENT ABX: DAY #5 Vanco IV + Zosyn * Awake, NAD, VSS, sepsis resolved no fevers, repeat lactic acid normal, ESR 100m HGB A1c 11.+ * LABS: 03/18/17 0721 03/18/17 0721 Physical examination: 61 yo man who is in no distress HEENT: Unremarkable CHEST: Equal chest rise bilaterally without dyspnea on observation CV: Radial pulse RRR ABD: Soft, nontender : Deferred EXT: Warm, no cyanosis SKIN: No rash, no diaphoresis ID ASSESSMENT 61 yo M w/PMHx CVA, HTN, HLD, PAD admit with 1. Infected left great toe diabetic foot ulcer/possible abscess/(+) osteomyelitis distal great toe * ESR 100 (03/15/17) * 03/17/17 MRI Foot: 1. Findings consistent with focal osteomyelitis of the terminal tuft of the great toe distal phalanx laterally. 2. There is adjacent soft tissue mass that could be a phlegmon or early abscess. * 03/17/17 VENOUS: (-) The greater saphenous veins demonstrate normal compressibility with no thrombus or occlusion. * 03/15/17 ARTERIAL: 1. Diminished left first toe ankle-brachial index which may indicate small vessel disease. 2. Otherwise normal bilateral lower extremity arterial Doppler 2. Severe septicemia -> BCx(+)GBS with lactic acidosis secondary to #1=> RESOLVED * 03/15/17 BCx (+) Organism 1 STREP AGALACTIAE - (GROUP B) 3. Hypoxic respiratory failure most likely secondary to severe sepsis=> RESOLVED 4. COPD-> former tobacco 5. Acute kidney injury likely secondary to severe sepsis=> RESOLVED 6. Hyperglycemia with type 2 diabetes with complication of peripheral neuropathy . 7. Tiny 6.5 mm micronodule in the anteromedial right upper lobe * -Follow-up CT in 6 months to one year recommended. CURRENT ABX: DAY #5 Vanco IV + Zosyn ID RECOMMENDATIONS 1. Continue ABX - watch renal fx on this combo 2. MRI revealed concern of possible adjacent abscess formation; hence he remains on Vanco IV/Zosyn - 3. Follow APC recommendations> Dr. Gaspar in today for wound care, will continue current ABX if no debridement planned to cover concern for abscess formation on MRI. * Await Dr. Gaspar's recommendations. . Problems: Consultation Date/Type/Reason Admit Date/Time Mar 15, 2017 at 09:42 Initial Consult Date 03/15/17 Type of Consultation: ID Referring Provider: JOSÉ LILLY Exam/Review of Systems Vital Signs Vitals Vital Signs Date Time Temp Pulse Resp B/P Pulse Ox O2 Delivery O2 Flow Rate FiO2 03/19/17 15:14 98.0 79 18 138/65 94 03/19/17 14:08 Nasal Cannula 2.0 03/18/17 12:32 21 Intake and Output 03/18/17 03/18/17 03/19/17 15:00 23:00 07:00 Intake Total 850 ml 1290 ml 650 ml Output Total 1000 ml 925 ml 1000 ml Balance -150 ml 365 ml -350 ml Results Result Diagram: 03/18/17 0721 03/18/17 0721 Results 24 hrs Laboratory Tests Test 03/18/17 20:29 03/19/17 02:16 03/19/17 05:14 03/19/17 07:44 Bedside Glucose 282 H 269 H 273 H Vancomycin Level Trough 13.9 Test 03/19/17 11:17 03/19/17 17:27 Bedside Glucose 232 H 216 Medications Medications Current Medications Amlodipine Besylate (Norvasc) 5 mg DAILY PO Last administered on 03/19/17 08: 40; Admin Dose 5 MG; Start 03/16/17 at 09:00 Cholecalciferol (Vitamin D) 2,000 unit DAILY PO Last administered on 03/19/17 08:40; Admin Dose 2,000 UNIT; Start 03/15/17 at 11:30 Diagnostic Test (Pha) 1 ea 1 ea 02 XX Last administered on 03/19/17 02:19; Admin Dose 1 EA; Start 03/16/17 at 02:00 Piperacillin Sod/ Tazobactam Sod (Zosyn 3.375gm/ 100 ml (Pmx)) 100 ml @ 200 mls /hr Q6 IVPB Last administered on 03/19/17 17:46; Admin Dose 200 MLS/HR; Start 03/15/17 at 13:00 Linagliptin (Tradjenta) 5 mg DAILY PO Last administered on 03/19/17 08:40; Admin Dose 5 MG; Start 03/16/17 at 09:00 Hydralazine HCl (Apresoline) 10 mg Q6H PRN IV SBP>160 Last administered on 03/19 03:24; Admin Dose 10 MG; Start 03/15/17 at 11:00 Ondansetron HCl (Zofran Inj) 4 mg Q6H PRN IV NAUSEA AND/OR VOMITING Last administered on 03/15/17 16:39; Admin Dose 4 MG; Start 03/15/17 at 11:00 Acetaminophen (Tylenol Tab) 650 mg Q6H PRN PO PAIN LEVEL 1-3 OR FEVER Last administered on 03/19/17 14:03; Admin Dose 650 MG; Start 03/15/17 at 11:00 Acetaminophen (Tylenol Supp) 650 mg Q6H PRN [place] PAIN LEVEL 1-3 OR FEVER; Start 03/15/17 at 11:00 Docusate Sodium (Colace) 100 mg Q12H PRN PO CONSTIPATION; Start 03/15/17 at 11: 00 Heparin Sodium (Porcine) (Heparin (5000 Units/0.5 ml)) 5,000 unit Q12 SC Last administered on 03/19/17 08:42; Admin Dose 5,000 UNIT; Start 03/15/17 at 21:00 Miscellaneous Information 1 ea NOTE XX ; Start 03/15/17 at 11:30 Glucose (Glutose) 15 gm Q15M PRN PO DECREASED GLUCOSE; Start 03/15/17 at 11:30 Glucose (Glutose) 22.5 gm Q15M PRN PO DECREASED GLUCOSE; Start 03/15/17 at 11: 30 Dextrose (D50w Syringe) 25 ml Q15M PRN IV DECREASED GLUCOSE; Start 03/15/17 at 11:30 Dextrose (D50w Syringe) 50 ml Q15M PRN IV DECREASED GLUCOSE; Start 03/15/17 at 11:30 Glucagon (Glucagen) 1 mg Q15M PRN IM DECREASED GLUCOSE; Start 03/15/17 at 11:30 Glucose (Glutose) 15 gm Q15M PRN BUCCAL DECREASED GLUCOSE; Start 03/15/17 at 11 :30 Aspirin (Aspirin) 81 mg DAILY PO Last administered on 03/19/17 08:40; Admin Dose 81 MG; Start 03/16/17 at 09:00 Guaifenesin/ Dextromethorphan 1 tab 1 tab BID PO Last administered on 08:40; Admin Dose 1 TAB; Start 03/16/17 at 21:00 Vancomycin HCl/ Sodium Chloride (Vancocin/NS) 250 ml @ 83.333 mls/ hr Q12H IVPB Last administered on 03/19/17 18:24; Admin Dose 83.333 MLS/HR; Start at 18:00 Benzonatate (Tessalon) 100 mg TID PRN PO cough Last administered on 03/19/17 08:40; Admin Dose 100 MG; Start 03/17/17 at 16:00 Insulin Glargine (Lantus) 30 unit HS SC Last administered on 03/18/17 20:35; Admin Dose 30 UNIT; Start 03/18/17 at 21:00 Guaifenesin/ Dextromethorphan (Robitussin Dm Liquid Cup) 10 ml Q4H PRN PO cough Last administered on 03/19/17 17:57; Admin Dose 10 ML; Start 03/19/17 at 14:30 Morphine Sulfate (morphine) 2 mg Q4H PRN IV SEVERE PAIN LEVEL 7-10; Start 03/19 at 14:30 MYRNA MCCAIN NP Mar 19, 2017 18:40
[2017-03-19] MEDS: INSULIN GLARGINE [LANtus] 3 ML PEN SC SCH (20:05)
[2017-03-19 21:00] VITALS: BP 112/65; RESP 16
[2017-03-20] MEDS: hydrALAzine 20 MG INJ IV PRN (02:15)
[2017-03-20] MEDS: GUAIFENESIN/DM 5ML CUP PO PRN (02:21)
[2017-03-20] MEDS: ACCU-CHEK XX SCH (02:22)
[2017-03-20 02:43] VITALS: BP 178/84; RESP 16
[2017-03-20] MEDS: PIPER-TAZO 3.375 GM IV (PMX) 100 ML IVPB SCH ×3 (05:24→17:33)
[2017-03-20 05:29] VITALS: BP 136/68; PULSE 85
[2017-03-20 05:36] LABS: HEMATOCRIT 37.6 % (42.0-52.0); HEMOGLOBIN 12.4 g/dl (14.0-18.0); MEAN CORPUSCULAR HEMOGLOBIN 30.7 pg (29.0-33.0); MEAN CORPUSCULAR VOLUME 93.1 fl (82.0-101.0); MEAN PLATELET VOLUME 9.8 fl (7.4-10.4); PLATELET COUNT 383 10^3/UL (140-415); RED BLOOD COUNT 4.04 10^6/ul (4.70-6.10); WHITE BLOOD COUNT 8.7 10^3/ul (4.8-10.8)
[2017-03-20 05:57] LABS: ALBUMIN/GLOBULIN RATIO 0.85; BILIRUBIN,INDIRECT 0.1 mg/dl (0-1.1); BILIRUBIN,TOTAL 0.1 mg/dl (0.2-1.3); CALCIUM 8.9 mg/dl (8.4-10.2); POTASSIUM 3.6 mmol/L (3.5-5.1); TOTAL PROTEIN 6.5 g/dl (6.1-8.1)
[2017-03-20] MEDS: VANCOMYCIN 1.25 GM in SOD CHLORIDE 0.9% 250 ML IVPB SCH ×2 (06:07→18:34)
[2017-03-20 07:15] VITALS: BP 166/78; RESP 16
[2017-03-20] MEDS: morphine 4 MG/ML VIAL IV PRN ×2 (07:44→21:22)
[2017-03-20] MEDS: BENZONATATE 100 MG CAP PO PRN ×2 (07:45→08:23)
[2017-03-20] MEDS: metFORMIN 500 MG TAB PO SCH ×2 (07:45→17:32)
[2017-03-20] MEDS: INSULIN ASPART [NOVOLOG] 3 ML PEN SC SCH ×7 (07:52→20:56)
[2017-03-20] MEDS: ALBUTEROL/IPRATROPIUM (NEB) 3 ML AMP HHN SCH ×4 (08:07→21:13)
[2017-03-20] MEDS: ASPIRIN 81 MG TAB PO SCH (08:23)
[2017-03-20] MEDS: GUAIFENESIN/DM (SR) TAB PO SCH ×2 (08:23→20:56)
[2017-03-20] MEDS: CHOLECALCIFEROL 2,000 UNIT CAP PO SCH (08:23)
[2017-03-20] MEDS: AMLODIPINE 5 MG TAB PO SCH (08:24)
[2017-03-20] MEDS: LINAGLIPTIN 5 MG TABLET PO SCH (08:27)
[2017-03-20] MEDS: HEPARIN 5,000 UNIT/0.5 ML VIAL SC SCH ×2 (08:27→21:01)
[2017-03-20 09:07] VITALS: BP 130/78
--- NOTE | 2017-03-20 09:32 | CONS ---
Date/Time of Note Date/Time of Note DATE: 03/20/17 TIME: 09:32 Assessment/Plan Assessment/Plan Chief Complaint/Hosp Course 61-year-old obese male with a past medical history of hypertension, CVA , lung mass, former smoker, dyslipidemia, type 2 diabetes, diabetic foot ulcers , peripheral vascular disease, peripheral neuropathy, - admitted for Infected left great toe diabetic foot ulcer.Renal has been consulted for Acute kidney injury. Problems: Consultation Date/Type/Reason Admit Date/Time Mar 15, 2017 at 09:42 Initial Consult Date 03/15/17 Type of Consultation: ID Referring Provider: JOSÉ LILLY Exam/Review of Systems Vital Signs Vitals Vital Signs Date Time Temp Pulse Resp B/P Pulse Ox O2 Delivery O2 Flow Rate FiO2 03/20/17 09:07 130/78 03/20/17 07:15 98.0 85 16 90 03/20/17 02:00 2.0 03/19/17 20:32 Nasal Cannula 27 Intake and Output 03/19/17 03/19/17 03/20/17 15:00 23:00 07:00 Intake Total 350 ml 350 ml 720 ml Output Total 800 ml Balance 350 ml 350 ml -80 ml Results Result Diagram: 03/20/17 0451 03/20/17 0451 Results 24 hrs Laboratory Tests Test 03/19/17 11:17 03/19/17 17:27 03/19/17 20:03 03/20/17 02:16 Bedside Glucose 232 H 216 233 H 270 H Test 03/20/17 04:51 03/20/17 07:48 White Blood Count 8.7 # Red Blood Count 4.04 L Hemoglobin 12.4 L Hematocrit 37.6 L Mean Corpuscular Volume 93.1 Mean Corpuscular Hemoglobin 30.7 Mean Corpuscular Hemoglobin Concent 33.0 Red Cell Distribution Width 13.0 Platelet Count 383 Mean Platelet Volume 9.8 Neutrophils % Lymphocytes % Monocytes % Eosinophils % Basophils % Nucleated Red Blood Cells % 0.0 Neutrophils # Lymphocytes # Monocytes # Eosinophils # Basophils # Nucleated Red Blood Cells # Sodium Level 139 Potassium Level 3.6 Chloride Level 104 Carbon Dioxide Level 25 Anion Gap 14 Blood Urea Nitrogen 11 Creatinine 1.00 Glucose Level 308 H Calcium Level 8.9 Magnesium Level 1.5 L Total Bilirubin 0.1 L Direct Bilirubin 0.00 Indirect Bilirubin 0.1 Aspartate Amino Transf (AST/SGOT) 58 H Alanine Aminotransferase (ALT/SGPT) 64 Alkaline Phosphatase 132 H Total Protein 6.5 Albumin 3.0 L Globulin 3.50 H Albumin/Globulin Ratio 0.85 Bedside Glucose 322 H Medications Medications Current Medications Amlodipine Besylate (Norvasc) 5 mg DAILY PO Last administered on 03/20/17 08:24 ; Admin Dose 5 MG; Start 03/16/17 at 09:00 Cholecalciferol (Vitamin D) 2,000 unit DAILY PO Last administered on 03/20/17 08:23; Admin Dose 2,000 UNIT; Start 03/15/17 at 11:30 Diagnostic Test (Pha) 1 ea 1 ea 02 XX Last administered on 03/20/17 02:22; Admin Dose 1 EA; Start 03/16/17 at 02:00 Piperacillin Sod/ Tazobactam Sod (Zosyn 3.375gm/ 100 ml (Pmx)) 100 ml @ 200 mls /hr Q6 IVPB Last administered on 03/20/17 05:24; Admin Dose 200 MLS/HR; Start 03/15/17 at 13:00 Linagliptin (Tradjenta) 5 mg DAILY PO Last administered on 03/20/17 08:27; Admin Dose 5 MG; Start 03/16/17 at 09:00 Hydralazine HCl (Apresoline) 10 mg Q6H PRN IV SBP>160 Last administered on 02:15; Admin Dose 10 MG; Start 03/15/17 at 11:00 Ondansetron HCl (Zofran Inj) 4 mg Q6H PRN IV NAUSEA AND/OR VOMITING Last administered on 03/15/17 16:39; Admin Dose 4 MG; Start 03/15/17 at 11:00 Acetaminophen (Tylenol Tab) 650 mg Q6H PRN PO PAIN LEVEL 1-3 OR FEVER Last administered on 03/19/17 14:03; Admin Dose 650 MG; Start 03/15/17 at 11:00 Acetaminophen (Tylenol Supp) 650 mg Q6H PRN [place] PAIN LEVEL 1-3 OR FEVER; Start 03/15/17 at 11:00 Docusate Sodium (Colace) 100 mg Q12H PRN PO CONSTIPATION; Start 03/15/17 at 11: 00 Heparin Sodium (Porcine) (Heparin (5000 Units/0.5 ml)) 5,000 unit Q12 SC Last administered on 03/20/17 08:27; Admin Dose 5,000 UNIT; Start 03/15/17 at 21:00 Miscellaneous Information 1 ea NOTE XX ; Start 03/15/17 at 11:30 Glucose (Glutose) 15 gm Q15M PRN PO DECREASED GLUCOSE; Start 03/15/17 at 11:30 Glucose (Glutose) 22.5 gm Q15M PRN PO DECREASED GLUCOSE; Start 03/15/17 at 11: 30 Dextrose (D50w Syringe) 25 ml Q15M PRN IV DECREASED GLUCOSE; Start 03/15/17 at 11:30 Dextrose (D50w Syringe) 50 ml Q15M PRN IV DECREASED GLUCOSE; Start 03/15/17 at 11:30 Glucagon (Glucagen) 1 mg Q15M PRN IM DECREASED GLUCOSE; Start 03/15/17 at 11:30 Glucose (Glutose) 15 gm Q15M PRN BUCCAL DECREASED GLUCOSE; Start 03/15/17 at 11 :30 Aspirin (Aspirin) 81 mg DAILY PO Last administered on 03/20/17 08:23; Admin Dose 81 MG; Start 03/16/17 at 09:00 Guaifenesin/ Dextromethorphan 1 tab 1 tab BID PO Last administered on 03/20/17 08:23; Admin Dose 1 TAB; Start 03/16/17 at 21:00 Vancomycin HCl/ Sodium Chloride (Vancocin/NS) 250 ml @ 83.333 mls/ hr Q12H IVPB Last administered on 03/20/17 06:07; Admin Dose 83.333 MLS/HR; Start 03/17 at 18:00 Benzonatate (Tessalon) 100 mg TID PRN PO cough Last administered on 03/20/17 08 :23; Admin Dose 100 MG; Start 03/17/17 at 16:00 Insulin Glargine (Lantus) 30 unit HS SC Last administered on 03/19/17 20:05; Admin Dose 30 UNIT; Start 03/18/17 at 21:00 Guaifenesin/ Dextromethorphan (Robitussin Dm Liquid Cup) 10 ml Q4H PRN PO cough Last administered on 03/20/17 02:21; Admin Dose 10 ML; Start 03/19/17 at 14:30 Morphine Sulfate (morphine) 2 mg Q4H PRN IV SEVERE PAIN LEVEL 7-10 Last administered on 03/20/17 07:44; Admin Dose 2 MG; Start 03/19/17 at 14:30 SCOTT LAU MD Mar 20, 2017 09:32
--- NOTE | 2017-03-20 14:43 | PN ---
Date/Time of Note Date/Time of Note DATE: 03/20/17 TIME: 14:40 Assessment/Plan VTE Prophylaxis VTE Prophylaxis Intervention: heparin Lines/Catheters IV Catheter Type (from [facility]): [facility] Urinary Cath still in place: No Assessment/Plan Chief Complaint/Hosp Course 1. Infected left great toe diabetic foot ulcer. MRI consistent with focal osteomyelitis of the terminal tuft of the great toe distal phalanx laterally with adjacent soft tissue mass that could be a phlegmon or early abscess. -F/u with podiatry recs whether patient need debridement in house or not. -Continue wound care, broad-spectrum IV antibiotics-check with ID regarding course of treatment-We will proceed with PICC in anticipation for 6 wks abx if no plan for surgery -ID to determine abx selection and course. 2. GBS bacteremia with severe sepsis secondary to #1. Resolved -Treatment as per above 3. Hypoxic respiratory failure most likely secondary to severe sepsis. Resolved. -Continue bronchodilators PRN. 4. Acute kidney injury likely secondary to severe sepsis. Resolved. -Continue to monitor. Follow-up with nephrology recommendations. 5. Hyperglycemia with type 2 diabetes. -Continue Accu-Cheks/ISS. Increase pre-meals to 12 units and Lantus 35 units due to high resistance -Resume metformin and continue Tradjenta. 6. Essential hypertension. -Continue antihypertensives. 7. Morbid obesity. -Weight reduction and therapeutic lifestyle changes upon discharge. 8. Dyslipidemia. -On statin 9. PAD -Low-dose aspirin. 10. History of cerebrovascular accident. No present issues. 11.Tiny 6.5 mm micronodule in the anteromedial right upper lobe -Follow-up CT in 6 months to one year recommended. DVT prophylaxis: Heparin PUD prophylaxis: Pepcid. Plan: follow-up with recommendation from podiatry regarding medical versus surgical management of #1. PICC line in anticipation for long-term IV antibiotics. Case discussed with Dr. Rivero Problems: Subjective 24 Hr Interval Summary Free Text/Dictation Overall feels better.Afebrile. Exam/Review of Systems Vital Signs Vitals Vital Signs Date Time Temp Pulse Resp B/P Pulse Ox O2 Delivery O2 Flow Rate FiO2 03/20/17 12:21 79 18 Nasal Cannula 2.0 03/20/17 09:07 130/78 03/20/17 07:15 98.0 90 03/19/17 20:32 27 Intake and Output 03/19/17 03/19/17 03/20/17 15:00 23:00 07:00 Intake Total 350 ml 350 ml 720 ml Output Total 800 ml Balance 350 ml 350 ml -80 ml Exam General: Obese male in no acute distress. HEENT: Normocephalic, Atraumatic, No laceration or hematoma; Eyes: PEERL, Conjunctiva clear, Anicteric sclera Neck: Supple without any lymphadenopathy, nontender, no JVD, no carotid bruits, trachea midline, no thyromegaly Cardiac: S1, S2 auscultated, regular rhythm and rate, no mumurs or gallop Pulmonary: Normal respiratory effort. Chest clear to auscultation bilaterally, no adventitious breath sounds GI: Abdomen obese, soft, Non tender, non- distended, no masses, no rebound tenderness or guarding. Bowel sounds active on all four quadrants Genitourinary: Deferred Extremities: +Erythema /warmth/severe tenderness to the dorsum of the left foot Ulceration on left great toe-erythema and tenderness-improving. Pulses [1+] bilaterally. Full ROM on all four extremities. No focal weakness appreciated. Neurologic: Alert to person, place, time, and situation. Affect appropriate, intact sensation. Skin: Clean,dry, and intact. No ecchymosis, no rashes, or lesions Results Result Diagram: 03/20/17 0451 03/20/17 0451 Results 24 hrs Laboratory Tests Test 03/19/17 17:27 03/19/17 20:03 03/20/17 02:16 03/20/17 04:51 Bedside Glucose 216 233 H 270 H White Blood Count 8.7 # Red Blood Count 4.04 L Hemoglobin 12.4 L Hematocrit 37.6 L Mean Corpuscular Volume 93.1 Mean Corpuscular Hemoglobin 30.7 Mean Corpuscular Hemoglobin Concent 33.0 Red Cell Distribution Width 13.0 Platelet Count 383 Mean Platelet Volume 9.8 Neutrophils % Lymphocytes % Monocytes % Eosinophils % Basophils % Nucleated Red Blood Cells % 0.0 Neutrophils # Lymphocytes # Monocytes # Eosinophils # Basophils # Nucleated Red Blood Cells # Sodium Level 139 Potassium Level 3.6 Chloride Level 104 Carbon Dioxide Level 25 Anion Gap 14 Blood Urea Nitrogen 11 Creatinine 1.00 Glucose Level 308 H Calcium Level 8.9 Magnesium Level 1.5 L Total Bilirubin 0.1 L Direct Bilirubin 0.00 Indirect Bilirubin 0.1 Aspartate Amino Transf (AST/SGOT) 58 H Alanine Aminotransferase (ALT/SGPT) 64 Alkaline Phosphatase 132 H Total Protein 6.5 Albumin 3.0 L Globulin 3.50 H Albumin/Globulin Ratio 0.85 Test 03/20/17 07:48 03/20/17 11:48 03/20/17 12:28 Bedside Glucose 322 H 272 H Lab Scanned Report REFERENCE LAB Medications Medications Current Medications Amlodipine Besylate (Norvasc) 5 mg DAILY PO Last administered on 03/20/17 08:24 ; Admin Dose 5 MG; Start 03/16/17 at 09:00 Cholecalciferol (Vitamin D) 2,000 unit DAILY PO Last administered on 03/20/17 08:23; Admin Dose 2,000 UNIT; Start 03/15/17 at 11:30 Diagnostic Test (Pha) 1 ea 1 ea 02 XX Last administered on 03/20/17 02:22; Admin Dose 1 EA; Start 03/16/17 at 02:00 Piperacillin Sod/ Tazobactam Sod (Zosyn 3.375gm/ 100 ml (Pmx)) 100 ml @ 200 mls /hr Q6 IVPB Last administered on 03/20/17 12:36; Admin Dose 200 MLS/HR; Start 03/15/17 at 13:00 Linagliptin (Tradjenta) 5 mg DAILY PO Last administered on 03/20/17 08:27; Admin Dose 5 MG; Start 03/16/17 at 09:00 Hydralazine HCl (Apresoline) 10 mg Q6H PRN IV SBP>160 Last administered on 02:15; Admin Dose 10 MG; Start 03/15/17 at 11:00 Ondansetron HCl (Zofran Inj) 4 mg Q6H PRN IV NAUSEA AND/OR VOMITING Last administered on 03/15/17 16:39; Admin Dose 4 MG; Start 03/15/17 at 11:00 Acetaminophen (Tylenol Tab) 650 mg Q6H PRN PO PAIN LEVEL 1-3 OR FEVER Last administered on 03/19/17 14:03; Admin Dose 650 MG; Start 03/15/17 at 11:00 Acetaminophen (Tylenol Supp) 650 mg Q6H PRN [place] PAIN LEVEL 1-3 OR FEVER; Start 03/15/17 at 11:00 Docusate Sodium (Colace) 100 mg Q12H PRN PO CONSTIPATION; Start 03/15/17 at 11: 00 Heparin Sodium (Porcine) (Heparin (5000 Units/0.5 ml)) 5,000 unit Q12 SC Last administered on 03/20/17 08:27; Admin Dose 5,000 UNIT; Start 03/15/17 at 21:00 Miscellaneous Information 1 ea NOTE XX ; Start 03/15/17 at 11:30 Glucose (Glutose) 15 gm Q15M PRN PO DECREASED GLUCOSE; Start 03/15/17 at 11:30 Glucose (Glutose) 22.5 gm Q15M PRN PO DECREASED GLUCOSE; Start 03/15/17 at 11: 30 Dextrose (D50w Syringe) 25 ml Q15M PRN IV DECREASED GLUCOSE; Start 03/15/17 at 11:30 Dextrose (D50w Syringe) 50 ml Q15M PRN IV DECREASED GLUCOSE; Start 03/15/17 at 11:30 Glucagon (Glucagen) 1 mg Q15M PRN IM DECREASED GLUCOSE; Start 03/15/17 at 11:30 Glucose (Glutose) 15 gm Q15M PRN BUCCAL DECREASED GLUCOSE; Start 03/15/17 at 11 :30 Aspirin (Aspirin) 81 mg DAILY PO Last administered on 03/20/17 08:23; Admin Dose 81 MG; Start 03/16/17 at 09:00 Guaifenesin/ Dextromethorphan 1 tab 1 tab BID PO Last administered on 03/20/17 08:23; Admin Dose 1 TAB; Start 03/16/17 at 21:00 Vancomycin HCl/ Sodium Chloride (Vancocin/NS) 250 ml @ 83.333 mls/ hr Q12H IVPB Last administered on 03/20/17 06:07; Admin Dose 83.333 MLS/HR; Start 03/17 at 18:00 Benzonatate (Tessalon) 100 mg TID PRN PO cough Last administered on 03/20/17 08 :23; Admin Dose 100 MG; Start 03/17/17 at 16:00 Insulin Glargine (Lantus) 30 unit HS SC Last administered on 03/19/17 20:05; Admin Dose 30 UNIT; Start 03/18/17 at 21:00 Guaifenesin/ Dextromethorphan (Robitussin Dm Liquid Cup) 10 ml Q4H PRN PO cough Last administered on 03/20/17 02:21; Admin Dose 10 ML; Start 03/19/17 at 14:30 Morphine Sulfate (morphine) 2 mg Q4H PRN IV SEVERE PAIN LEVEL 7-10 Last administered on 03/20/17 07:44; Admin Dose 2 MG; Start 03/19/17 at 14:30 BRANDON HERRERA NP Mar 20, 2017 14:43
[2017-03-20] MEDS ORDERED: LIDOCAINE 1% (MPF) 5 ML VIAL SC ONE (15:00)
--- NOTE | 2017-03-20 15:43 | CONS ---
Date/Time of Note Date/Time of Note DATE: 03/20/17 TIME: 15:41 Assessment/Plan Assessment/Plan Chief Complaint/Hosp Course 61-year-old obese male with a past medical history of hypertension, CVA , lung mass, former smoker, dyslipidemia, type 2 diabetes, diabetic foot ulcers , peripheral vascular disease, peripheral neuropathy, - admitted for Infected left great toe diabetic foot ulcer.Renal has been consulted for Acute kidney injury. Problems: Additional Assessment/Plan 1. 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 Infected left great toe diabetic foot ulcer. 3. Severe sepsis with lactic acidosis 4. Hypoxic respiratory failure most likely secondary to severe sepsis 5. Type II DM 6. Hypertension 7. Hyperlpidemia Plan: Urine studies unremarkable, Uric acid normal, Cr improved to normal, BS running high, need better glycemic control IV abx as per ID, renally dose all abx, avoid Ibuprofen for pain control BP stable will continue to follow up. Consultation Date/Type/Reason Admit Date/Time Mar 15, 2017 at 09:42 Initial Consult Date 03/15/17 Type of Consultation: NEPHROLOGY Referring Provider: JOSÉ LILLY Exam/Review of Systems Vital Signs Vitals Vital Signs Date Time Temp Pulse Resp B/P Pulse Ox O2 Delivery O2 Flow Rate FiO2 03/20/17 12:21 79 18 Nasal Cannula 2.0 03/20/17 09:07 130/78 03/20/17 07:15 98.0 90 03/19/17 20:32 27 Intake and Output 03/19/17 03/19/17 03/20/17 15:00 23:00 07:00 Intake Total 350 ml 350 ml 720 ml Output Total 800 ml Balance 350 ml 350 ml -80 ml Exam Constitutional: alert Respiratory: clear to auscultation, diminished breath sounds Cardiovascular: regular rate and rhythm Gastrointestinal: soft Musculoskeletal: nl extremities to inspection, left foot great toe ulcer with dressing on Neurological: DETECTIVE CHIEF II-XII intact, nl mental status, nl speech, nl strength Results Result Diagram: 03/20/17 0451 03/20/17 0451 Results 24 hrs Laboratory Tests Test 03/19/17 17:27 03/19/17 20:03 03/20/17 02:16 03/20/17 04:51 Bedside Glucose 216 233 H 270 H White Blood Count 8.7 # Red Blood Count 4.04 L Hemoglobin 12.4 L Hematocrit 37.6 L Mean Corpuscular Volume 93.1 Mean Corpuscular Hemoglobin 30.7 Mean Corpuscular Hemoglobin Concent 33.0 Red Cell Distribution Width 13.0 Platelet Count 383 Mean Platelet Volume 9.8 Neutrophils % Lymphocytes % Monocytes % Eosinophils % Basophils % Nucleated Red Blood Cells % 0.0 Neutrophils # Lymphocytes # Monocytes # Eosinophils # Basophils # Nucleated Red Blood Cells # Sodium Level 139 Potassium Level 3.6 Chloride Level 104 Carbon Dioxide Level 25 Anion Gap 14 Blood Urea Nitrogen 11 Creatinine 1.00 Glucose Level 308 H Calcium Level 8.9 Magnesium Level 1.5 L Total Bilirubin 0.1 L Direct Bilirubin 0.00 Indirect Bilirubin 0.1 Aspartate Amino Transf (AST/SGOT) 58 H Alanine Aminotransferase (ALT/SGPT) 64 Alkaline Phosphatase 132 H Total Protein 6.5 Albumin 3.0 L Globulin 3.50 H Albumin/Globulin Ratio 0.85 Test 03/20/17 07:48 03/20/17 11:48 03/20/17 12:28 Bedside Glucose 322 H 272 H Lab Scanned Report REFERENCE LAB Medications Medications Current Medications Amlodipine Besylate (Norvasc) 5 mg DAILY PO Last administered on 03/20/17 08:24 ; Admin Dose 5 MG; Start 03/16/17 at 09:00 Cholecalciferol (Vitamin D) 2,000 unit DAILY PO Last administered on 03/20/17 08:23; Admin Dose 2,000 UNIT; Start 03/15/17 at 11:30 Diagnostic Test (Pha) 1 ea 1 ea 02 XX Last administered on 03/20/17 02:22; Admin Dose 1 EA; Start 03/16/17 at 02:00 Piperacillin Sod/ Tazobactam Sod (Zosyn 3.375gm/ 100 ml (Pmx)) 100 ml @ 200 mls /hr Q6 IVPB Last administered on 03/20/17 12:36; Admin Dose 200 MLS/HR; Start 03/15/17 at 13:00 Linagliptin (Tradjenta) 5 mg DAILY PO Last administered on 03/20/17 08:27; Admin Dose 5 MG; Start 03/16/17 at 09:00 Hydralazine HCl (Apresoline) 10 mg Q6H PRN IV SBP>160 Last administered on 02:15; Admin Dose 10 MG; Start 03/15/17 at 11:00 Ondansetron HCl (Zofran Inj) 4 mg Q6H PRN IV NAUSEA AND/OR VOMITING Last administered on 03/15/17 16:39; Admin Dose 4 MG; Start 03/15/17 at 11:00 Acetaminophen (Tylenol Tab) 650 mg Q6H PRN PO PAIN LEVEL 1-3 OR FEVER Last administered on 03/19/17 14:03; Admin Dose 650 MG; Start 03/15/17 at 11:00 Acetaminophen (Tylenol Supp) 650 mg Q6H PRN [place] PAIN LEVEL 1-3 OR FEVER; Start 03/15/17 at 11:00 Docusate Sodium (Colace) 100 mg Q12H PRN PO CONSTIPATION; Start 03/15/17 at 11: 00 Heparin Sodium (Porcine) (Heparin (5000 Units/0.5 ml)) 5,000 unit Q12 SC Last administered on 03/20/17 08:27; Admin Dose 5,000 UNIT; Start 03/15/17 at 21:00 Miscellaneous Information 1 ea NOTE XX ; Start 03/15/17 at 11:30 Glucose (Glutose) 15 gm Q15M PRN PO DECREASED GLUCOSE; Start 03/15/17 at 11:30 Glucose (Glutose) 22.5 gm Q15M PRN PO DECREASED GLUCOSE; Start 03/15/17 at 11: 30 Dextrose (D50w Syringe) 25 ml Q15M PRN IV DECREASED GLUCOSE; Start 03/15/17 at 11:30 Dextrose (D50w Syringe) 50 ml Q15M PRN IV DECREASED GLUCOSE; Start 03/15/17 at 11:30 Glucagon (Glucagen) 1 mg Q15M PRN IM DECREASED GLUCOSE; Start 03/15/17 at 11:30 Glucose (Glutose) 15 gm Q15M PRN BUCCAL DECREASED GLUCOSE; Start 03/15/17 at 11 :30 Aspirin (Aspirin) 81 mg DAILY PO Last administered on 03/20/17 08:23; Admin Dose 81 MG; Start 03/16/17 at 09:00 Guaifenesin/ Dextromethorphan 1 tab 1 tab BID PO Last administered on 03/20/17 08:23; Admin Dose 1 TAB; Start 03/16/17 at 21:00 Vancomycin HCl/ Sodium Chloride (Vancocin/NS) 250 ml @ 83.333 mls/ hr Q12H IVPB Last administered on 03/20/17 06:07; Admin Dose 83.333 MLS/HR; Start 03/17 at 18:00 Benzonatate (Tessalon) 100 mg TID PRN PO cough Last administered on 03/20/17 08 :23; Admin Dose 100 MG; Start 03/17/17 at 16:00 Guaifenesin/ Dextromethorphan (Robitussin Dm Liquid Cup) 10 ml Q4H PRN PO cough Last administered on 03/20/17 02:21; Admin Dose 10 ML; Start 03/19/17 at 14:30 Morphine Sulfate 2 mg 2 mg Q4H PRN IV SEVERE PAIN LEVEL 7-10 Last administered on 03/20/17 07:44; Admin Dose 2 MG; Start 03/19/17 at 14:30 Magnesium Sulfate (Magnesium Sulfate 2 Gm/50 ml) 50 ml @ 25 mls/hr ONCE ONCE IVPB ; Start 03/20/17 at 16:00; Stop 03/20/17 at 17:59 Insulin Glargine (Lantus) 35 unit HS SC ; Start 03/20/17 at 21:00 Collagenase (Santyl) 1 applic DAILY TOP ; Start 03/20/17 at 16:00 SCOTT LAU MD Mar 20, 2017 15:43
[2017-03-20] MEDS ORDERED: MAGNESIUM SULFATE 2 GM/50 ML 50 ML IVPB ONE (16:00)
[2017-03-20] MEDS: COLLAGENASE 30 GM TUBE TOP SCH (16:02)
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
[2017-03-20 19:30] VITALS: BP 110/55; RESP 18
[2017-03-20] MEDS ORDERED: INSULIN GLARGINE [LANtus] 3 ML PEN SC SCH (21:00)
--- NOTE | 2017-03-20 23:53 | PN ---
Date/Time of Note Date/Time of Note DATE: 03/20/17 TIME: 23:52 Assessment/Plan Lines/Catheters IV Catheter Type (from [facility]): Saline Lock Hooks in Place (from [facility]): No Assessment/Plan Problems: (1) Diabetic foot infection Status: Acute (2) Foot ulcer, right Status: Acute (3) Encounter for wound re-check Status: Acute (4) Abscess Status: Acute (5) Acute bronchitis Status: Acute (6) Peripheral edema Status: Acute (7) Hyperglycemia without ketosis Status: Acute (8) Shortness of breath Status: Acute (9) Sepsis Status: Acute Qualifiers: Sepsis type: sepsis due to unspecified organism Qualified Code: A41.9 - Sepsis, due to unspecified organism (10) Diabetic foot ulcer Status: Acute Qualifiers: Diabetic foot ulcer location: toe Diabetes mellitus type: type 2 Laterality: left Non-pressure ulcer stage: with fat layer exposed Qualified Code: E11.621 - Diabetic ulcer of toe of left foot associated with type 2 diabetes mellitus, with fat layer exposed Assessment/Plan Patient will be scheduled for incision and drainage of the right big toe abscess with open wound. Exam/Review of Systems Vital Signs Vitals Vital Signs Date Time Temp Pulse Resp B/P Pulse Ox O2 Delivery O2 Flow Rate FiO2 03/20/17 21:13 81 18 95 Nasal Cannula 2.0 03/20/17 19:30 98.5 110/55 03/19/17 20:32 27 Intake and Output 03/19/17 03/19/17 03/20/17 15:00 23:00 07:00 Intake Total 350 ml 350 ml 720 ml Output Total 800 ml Balance 350 ml 350 ml -80 ml Results Result Diagram: 03/20/17 0451 03/20/17 0451 CHARLY ALVAREZ DPM Mar 20, 2017 23:53
[2017-03-21] MEDS: PIPER-TAZO 3.375 GM IV (PMX) 100 ML IVPB SCH ×4 (00:35→17:02)
[2017-03-21 02:00] VITALS: BP 151/67; RESP 16
[2017-03-21] MEDS: ACCU-CHEK XX SCH (02:00)
[2017-03-21] MEDS: VANCOMYCIN 1.25 GM in SOD CHLORIDE 0.9% 250 ML IVPB SCH ×2 (06:27→17:02)
[2017-03-21 07:29] LABS: CREATININE 1.52 mg/dl (0.61-1.24); POTASSIUM 3.8 mmol/L (3.5-5.1)
[2017-03-21] MEDS: ALBUTEROL/IPRATROPIUM (NEB) 3 ML AMP HHN SCH ×4 (07:49→21:06)
[2017-03-21] MEDS: INSULIN ASPART [NOVOLOG] 3 ML PEN SC SCH ×7 (08:00→20:46)
[2017-03-21] MEDS: GUAIFENESIN/DM (SR) TAB PO SCH ×2 (08:17→20:38)
[2017-03-21] MEDS: LINAGLIPTIN 5 MG TABLET PO SCH (08:17)
[2017-03-21] MEDS: AMLODIPINE 5 MG TAB PO SCH (08:17)
[2017-03-21] MEDS: metFORMIN 500 MG TAB PO SCH ×2 (08:17→17:07)
[2017-03-21] MEDS: CHOLECALCIFEROL 2,000 UNIT CAP PO SCH (08:17)
[2017-03-21] MEDS: ASPIRIN 81 MG TAB PO SCH (08:17)
[2017-03-21] MEDS: HEPARIN 5,000 UNIT/0.5 ML VIAL SC SCH ×2 (08:18→20:41)
[2017-03-21 08:20] VITALS: BP 165/79; RESP 18
[2017-03-21] MEDS: COLLAGENASE 30 GM TUBE TOP SCH (10:50)
[2017-03-21] MEDS: morphine 4 MG/ML VIAL IV PRN ×2 (11:14→20:54)
[2017-03-21] MEDS: BENZONATATE 100 MG CAP PO PRN (11:14)
--- NOTE | 2017-03-21 12:36 | PN ---
Date/Time of Note Date/Time of Note DATE: 03/21/17 TIME: 12:26 Assessment/Plan VTE Prophylaxis VTE Prophylaxis Intervention: heparin Lines/Catheters IV [facility] Type (from [facility]): Saline Lock Urinary Cath still in place: No Assessment/Plan Chief Complaint/Hosp Course 1. Infected left great toe diabetic foot ulcer. MRI consistent with focal osteomyelitis of the terminal tuft of the great toe distal phalanx laterally with adjacent soft tissue mass that could be a phlegmon or early abscess. -Appreciate podiatry evaluation and plan is for incision and drainage of the right big toe abscess with open wound. -Vascular on board and recommended angiogram only if wound not healing well- recommendation is to continue current medical management with antibiotics and reevaluate -Continue wound care, broad-spectrum IV antibiotics-check with ID regarding course of treatment-We will proceed with PICC in anticipation for 6 wks abx if no plan for debridement. 2. GBS bacteremia with severe sepsis secondary to #1. Resolved -Treatment as per above 3. Hypoxic respiratory failure most likely secondary to severe sepsis. Resolved. -Continue bronchodilators PRN. 4. Acute kidney injury likely secondary to severe sepsis. Today creatinine went up. -Continue to monitor. Follow-up with nephrology recommendations. 5. Hyperglycemia with type 2 diabetes. Still with hyperglycemia. -Continue Accu-Cheks/ISS. Adjust Lantus to 40 units due to high resistance and continue pre-meals at 12 units. -Continue metformin and continue Tradjenta. 6. Essential hypertension. -Continue antihypertensives. 7. Morbid obesity. -Weight reduction and therapeutic lifestyle changes upon discharge. 8. Dyslipidemia. -On statin 9. PAD -Low-dose aspirin. 10. History of cerebrovascular accident. No present issues. 11.Tiny 6.5 mm micronodule in the anteromedial right upper lobe -Follow-up CT in 6 months to one year recommended. DVT prophylaxis: Heparin PUD prophylaxis: Pepcid. Plan: Follow-up with podiatry recommendation. Plan is for I&D of the abscess on right big toe. Follow-up with podiatry recommendation on whether patient needs debridement in-house for management with 6 weeks of antibiotics and reevaluation. Patient also need vascular follow-up as outpatient. Case management to arrange vascular and podiatry follow-up upon discharge. Case discussed with Dr. Rivero Problems: Subjective 24 Hr Interval Summary Free Text/Dictation Patient remains afebrile. For PICC line insertion today. Exam/Review of Systems Vital Signs Vitals Vital Signs Date Time Temp Pulse Resp B/P Pulse Ox O2 Delivery O2 Flow Rate FiO2 03/21/17 08:20 98.8 83 18 165/79 91 03/21/17 07:49 Nasal Cannula 2.0 21 Intake and Output 03/20/17 03/20/17 03/21/17 15:00 23:00 07:00 Intake Total 350 ml 1310 ml 500 ml Output Total 975 ml Balance 350 ml 1310 ml -475 ml Exam General: Obese male in no acute distress. HEENT: Normocephalic, Atraumatic, No laceration or hematoma; Eyes: PEERL, Conjunctiva clear, Anicteric sclera Neck: Supple without any lymphadenopathy, nontender, no JVD, no carotid bruits, trachea midline, no thyromegaly Cardiac: S1, S2 auscultated, regular rhythm and rate, no mumurs or gallop Pulmonary: Normal respiratory effort. Chest clear to auscultation bilaterally, no adventitious breath sounds GI: Abdomen obese, soft, Non tender, non- distended, no masses, no rebound tenderness or guarding. Bowel sounds active on all four quadrants Genitourinary: Deferred Extremities: +Erythema /warmth/severe tenderness to the dorsum of the left foot Ulceration on left great toe-erythema and tenderness-improving. Pulses [1+] bilaterally. Full ROM on all four extremities. No focal weakness appreciated. Neurologic: Alert to person, place, time, and situation. Affect appropriate, intact sensation. Skin: Clean,dry, and intact. No ecchymosis, no rashes, or lesions Results Result Diagram: 03/20/17 0451 03/21/17 0542 Results 24 hrs Laboratory Tests Test 03/20/17 12:28 03/20/17 17:30 03/20/17 20:55 03/21/17 05:42 Bedside Glucose 272 H 317 H 155 Sodium Level 141 Potassium Level 3.8 Chloride Level 104 Carbon Dioxide Level 25 Anion Gap 16 Blood Urea Nitrogen 15 Creatinine 1.52 H Glucose Level 213 Calcium Level 9.0 Magnesium Level 2.0 Test 03/21/17 07:51 03/21/17 12:01 Bedside Glucose 172 215 Medications Medications Current Medications Amlodipine Besylate (Norvasc) 5 mg DAILY PO Last administered on 03/21/17 08:17 ; Admin Dose 5 MG; Start 03/16/17 at 09:00 Cholecalciferol (Vitamin D) 2,000 unit DAILY PO Last administered on 03/21/17 08:17; Admin Dose 2,000 UNIT; Start 03/15/17 at 11:30 Diagnostic Test (Pha) 1 ea 1 ea 02 XX Last administered on 03/20/17 02:22; Admin Dose 1 EA; Start 03/16/17 at 02:00 Piperacillin Sod/ Tazobactam Sod (Zosyn 3.375gm/ 100 ml (Pmx)) 100 ml @ 200 mls /hr Q6 IVPB Last administered on 03/21/17 11:09; Admin Dose 200 MLS/HR; Start 03/15/17 at 13:00 Linagliptin (Tradjenta) 5 mg DAILY PO Last administered on 03/21/17 08:17; Admin Dose 5 MG; Start 03/16/17 at 09:00 Hydralazine HCl (Apresoline) 10 mg Q6H PRN IV SBP>160 Last administered on 02:15; Admin Dose 10 MG; Start 03/15/17 at 11:00 Ondansetron HCl (Zofran Inj) 4 mg Q6H PRN IV NAUSEA AND/OR VOMITING Last administered on 03/15/17 16:39; Admin Dose 4 MG; Start 03/15/17 at 11:00 Acetaminophen (Tylenol Tab) 650 mg Q6H PRN PO PAIN LEVEL 1-3 OR FEVER Last administered on 03/19/17 14:03; Admin Dose 650 MG; Start 03/15/17 at 11:00 Acetaminophen (Tylenol Supp) 650 mg Q6H PRN [place] PAIN LEVEL 1-3 OR FEVER; Start 03/15/17 at 11:00 Docusate Sodium (Colace) 100 mg Q12H PRN PO CONSTIPATION; Start 03/15/17 at 11: 00 Heparin Sodium (Porcine) (Heparin (5000 Units/0.5 ml)) 5,000 unit Q12 SC Last administered on 03/21/17 08:18; Admin Dose 5,000 UNIT; Start 03/15/17 at 21:00 Miscellaneous Information 1 ea NOTE XX ; Start 03/15/17 at 11:30 Glucose (Glutose) 15 gm Q15M PRN PO DECREASED GLUCOSE; Start 03/15/17 at 11:30 Glucose (Glutose) 22.5 gm Q15M PRN PO DECREASED GLUCOSE; Start 03/15/17 at 11: 30 Dextrose (D50w Syringe) 25 ml Q15M PRN IV DECREASED GLUCOSE; Start 03/15/17 at 11:30 Dextrose (D50w Syringe) 50 ml Q15M PRN IV DECREASED GLUCOSE; Start 03/15/17 at 11:30 Glucagon (Glucagen) 1 mg Q15M PRN IM DECREASED GLUCOSE; Start 03/15/17 at 11:30 Glucose (Glutose) 15 gm Q15M PRN BUCCAL DECREASED GLUCOSE; Start 03/15/17 at 11 :30 Aspirin (Aspirin) 81 mg DAILY PO Last administered on 03/21/17 08:17; Admin Dose 81 MG; Start 03/16/17 at 09:00 Guaifenesin/ Dextromethorphan 1 tab 1 tab BID PO Last administered on 03/21/17 08:17; Admin Dose 1 TAB; Start 03/16/17 at 21:00 Vancomycin HCl/ Sodium Chloride (Vancocin/NS) 250 ml @ 83.333 mls/ hr Q12H IVPB Last administered on 03/21/17 06:27; Admin Dose 83.333 MLS/HR; Start 03/17 at 18:00 Benzonatate (Tessalon) 100 mg TID PRN PO cough Last administered on 03/21/17 11 :14; Admin Dose 100 MG; Start 03/17/17 at 16:00 Guaifenesin/ Dextromethorphan (Robitussin Dm Liquid Cup) 10 ml Q4H PRN PO cough Last administered on 03/20/17 02:21; Admin Dose 10 ML; Start 03/19/17 at 14:30 Morphine Sulfate (morphine) 2 mg Q4H PRN IV SEVERE PAIN LEVEL 7-10 Last administered on 03/21/17 11:14; Admin Dose 2 MG; Start 03/19/17 at 14:30 Insulin Glargine (Lantus) 35 unit HS SC Last administered on 03/20/17 20:59; Admin Dose 35 UNIT; Start 03/20/17 at 21:00 Collagenase (Santyl) 1 applic DAILY TOP Last administered on 03/21/17t 10:50; Admin Dose 1 APPLIC; Start 03/20/17 at 16:00 BRANDON HERRERA NP Mar 21, 2017 12:36
[2017-03-21] MEDS ORDERED: LIDOCAINE 1% (MPF) 5 ML VIAL SC ONE (13:00)
--- NOTE | 2017-03-21 15:01 | RADRPT ---
PROCEDURE: Chest radiograph. CLINICAL INDICATION: PICC placement. TECHNIQUE: Single portable frontal view. COMPARISON: Radiograph from 10/20/2016, 10/17/2016, and 02/16/2016. FINDINGS: The left PICC terminates at the superior cavoatrial junction. The lungs are clear. No pleural effusion or focal parenchymal opacity. The cardiomediastinal silhouette is normal. No suspicious bone lesion. IMPRESSION: 1. The left PICC terminates in expected position. 2. No acute cardiopulmonary abnormality. RPTAT: PP Physician Francoise Date Time Electronically viewed and signed by Physician Francoise on 03/21/2017 15:00 LG/
[2017-03-21 15:42] VITALS: BP 161/69; RESP 20
--- NOTE | 2017-03-21 16:09 | RADRPT ---
PROCEDURE: Ultrasound guidance for placement of needle in left upper extremity vein. CLINICAL INDICATION: Venous access. TECHNIQUE: Limited sonography of the left upper extremity was performed. Ultrasound images were recorded and s tored in the patient's medical record. COMPARISON: None. FINDINGS: The ultrasound images demonstrate a patent left upper extremity vein. The PICC line was inserted by the PICC line nurse. IMPRESSION: 1. Ultrasound guidance for a needle placement in a left upper extremity vein. 2. The left upper extremity vein is patent. RPTAT: QQ .Jonathan Shipman MD, MD Date Time Electronically viewed and signed by .Jonathan Shipman MD, MD on 03/21/2017 16:09 .R/
--- NOTE | 2017-03-21 16:41 | CONS ---
Date/Time of Note Date/Time of Note DATE: 03/21/17 TIME: 16:38 Assessment/Plan Assessment/Plan Chief Complaint/Hosp Course 61-year-old obese male with a past medical history of hypertension, CVA , lung mass, former smoker, dyslipidemia, type 2 diabetes, diabetic foot ulcers , peripheral vascular disease, peripheral neuropathy, - admitted for Infected left great toe diabetic foot ulcer.Renal has been consulted for Acute kidney injury. Problems: Additional Assessment/Plan 1. 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 Infected left great toe diabetic foot ulcer. 3. Severe sepsis with lactic acidosis 4. Hypoxic respiratory failure most likely secondary to severe sepsis 5. Type II DM 6. Hypertension 7. Hyperlpidemia Plan: Urine studies unremarkable, Uric acid normal, Cr bumped again to 1.5 today,, pt is on metformi, if Cr rising then will stop MTF IVF NS at 75 cc/hr x 1 liter then stop IV abx as per ID, renally dose all abx, avoid Ibuprofen for pain control, monitor for vancomycin toxicity BP stable will continue to follow up. Consultation Date/Type/Reason Admit Date/Time Mar 15, 2017 at 09:42 Initial Consult Date 03/15/17 Type of Consultation: NEPHROLOGY Referring Provider: JOSÉ LILLY 24 HR Interval Summary Free Text/Dictation Cr bumped to 1.5, on IV vancomycin Exam/Review of Systems Vital Signs Vitals Vital Signs Date Time Temp Pulse Resp B/P Pulse Ox O2 Delivery O2 Flow Rate FiO2 03/21/17 16:27 77 17 95 21 03/21/17 15:42 98.0 161/69 03/21/17 07:49 Nasal Cannula 2.0 Intake and Output 03/20/17 03/20/17 03/21/17 14:59 22:59 06:59 Intake Total 350 ml 1060 ml 750 ml Output Total 975 ml Balance 350 ml 1060 ml -225 ml Exam Constitutional: alert Psych: no complaints Head: normocephalic Eyes: nl conjunctiva ENMT: nl external ears & nose Neck: supple Respiratory: clear to auscultation, diminished breath sounds Cardiovascular: regular rate and rhythm Gastrointestinal: soft Musculoskeletal: nl extremities to inspection, left foot great toe ulcer with dressing on Neurological: R[employer] II-XII intact, nl mental status, nl speech, nl strength Results Result Diagram: 03/20/17 0451 03/21/17 0542 Results 24 hrs Laboratory Tests Test 03/20/17 17:30 03/20/17 20:55 03/21/17 05:42 03/21/17 07:51 Bedside Glucose 317 H 155 172 Sodium Level 141 Potassium Level 3.8 Chloride Level 104 Carbon Dioxide Level 25 Anion Gap 16 Blood Urea Nitrogen 15 Creatinine 1.52 H Glucose Level 213 Calcium Level 9.0 Magnesium Level 2.0 Test 03/21/17 12:01 Bedside Glucose 215 Medications Medications Current Medications Amlodipine Besylate (Norvasc) 5 mg DAILY PO Last administered on 03/21/17 08:17 ; Admin Dose 5 MG; Start 03/16/17 at 09:00 Cholecalciferol (Vitamin D) 2,000 unit DAILY PO Last administered on 03/21/17 08:17; Admin Dose 2,000 UNIT; Start 03/15/17 at 11:30 Diagnostic Test (Pha) 1 ea 1 ea 02 XX Last administered on 03/20/17 02:22; Admin Dose 1 EA; Start 03/16/17 at 02:00 Piperacillin Sod/ Tazobactam Sod (Zosyn 3.375gm/ 100 ml (Pmx)) 100 ml @ 200 mls /hr Q6 IVPB Last administered on 03/21/17 11:09; Admin Dose 200 MLS/HR; Start 03/15/17 at 13:00 Linagliptin (Tradjenta) 5 mg DAILY PO Last administered on 03/21/17 08:17; Admin Dose 5 MG; Start 03/16/17 at 09:00 Hydralazine HCl (Apresoline) 10 mg Q6H PRN IV SBP>160 Last administered on 02:15; Admin Dose 10 MG; Start 03/15/17 at 11:00 Ondansetron HCl (Zofran Inj) 4 mg Q6H PRN IV NAUSEA AND/OR VOMITING Last administered on 03/15/17 16:39; Admin Dose 4 MG; Start 03/15/17 at 11:00 Acetaminophen (Tylenol Tab) 650 mg Q6H PRN PO PAIN LEVEL 1-3 OR FEVER Last administered on 03/19/17 14:03; Admin Dose 650 MG; Start 03/15/17 at 11:00 Acetaminophen (Tylenol Supp) 650 mg Q6H PRN [place] PAIN LEVEL 1-3 OR FEVER; Start 03/15/17 at 11:00 Docusate Sodium (Colace) 100 mg Q12H PRN PO CONSTIPATION; Start 03/15/17 at 11: 00 Heparin Sodium (Porcine) (Heparin (5000 Units/0.5 ml)) 5,000 unit Q12 SC Last administered on 03/21/17 08:18; Admin Dose 5,000 UNIT; Start 03/15/17 at 21:00 Miscellaneous Information 1 ea NOTE XX ; Start 03/15/17 at 11:30 Glucose (Glutose) 15 gm Q15M PRN PO DECREASED GLUCOSE; Start 03/15/17 at 11:30 Glucose (Glutose) 22.5 gm Q15M PRN PO DECREASED GLUCOSE; Start 03/15/17 at 11: 30 Dextrose (D50w Syringe) 25 ml Q15M PRN IV DECREASED GLUCOSE; Start 03/15/17 at 11:30 Dextrose (D50w Syringe) 50 ml Q15M PRN IV DECREASED GLUCOSE; Start 03/15/17 at 11:30 Glucagon (Glucagen) 1 mg Q15M PRN IM DECREASED GLUCOSE; Start 03/15/17 at 11:30 Glucose (Glutose) 15 gm Q15M PRN BUCCAL DECREASED GLUCOSE; Start 03/15/17 at 11 :30 Aspirin (Aspirin) 81 mg DAILY PO Last administered on 03/21/17 08:17; Admin Dose 81 MG; Start 03/16/17 at 09:00 Guaifenesin/ Dextromethorphan 1 tab 1 tab BID PO Last administered on 03/21/17 08:17; Admin Dose 1 TAB; Start 03/16/17 at 21:00 Vancomycin HCl/ Sodium Chloride (Vancocin/NS) 250 ml @ 83.333 mls/ hr Q12H IVPB Last administered on 03/21/17 06:27; Admin Dose 83.333 MLS/HR; Start 03/17 at 18:00 Benzonatate (Tessalon) 100 mg TID PRN PO cough Last administered on 03/21/17 11 :14; Admin Dose 100 MG; Start 03/17/17 at 16:00 Guaifenesin/ Dextromethorphan (Robitussin Dm Liquid Cup) 10 ml Q4H PRN PO cough Last administered on 03/20/17 02:21; Admin Dose 10 ML; Start 03/19/17 at 14:30 Morphine Sulfate (morphine) 2 mg Q4H PRN IV SEVERE PAIN LEVEL 7-10 Last administered on 03/21/17 11:14; Admin Dose 2 MG; Start 03/19/17 at 14:30 Collagenase (Santyl) 1 applic DAILY TOP Last administered on 03/21/17 10:50; Admin Dose 1 APPLIC; Start 03/20/17 at 16:00 Insulin Glargine (Lantus) 40 unit HS SC ; Start 03/21/17 at 21:00 IV Flush (NS 10 ml) 10 ml PRN PRN IV FLUSH LINE; Start 03/21/17 at 15:00 Miscellaneous Information (*Rx Drug Level Order Reminder*) VANCOMYCIN TROUGH 03/21 AT 1700 ONCE ONCE XX ; Start 03/21/17 at 17:00; Stop 03/21/17 at 17:01 SCOTT LAU MD Mar 21, 2017 16:41
[2017-03-21] MEDS ORDERED: SOD CHLORIDE 0.9% 1,000 ML IV SCH (17:00)
--- NOTE | 2017-03-21 17:35 | CONS ---
Date/Time of Note Date/Time of Note DATE: 03/21/17 TIME: 17:14 Assessment/Plan Assessment/Plan Chief Complaint/Hosp Course ID PROGRESS NOTE 24H INTERVAL SUMMARY CURRENT ABX: => Clindamycin IV #1 + Ceftriaxone #1 TOTAL ABX DAY #7 s/p Vanco IV + Zosyn * Awake, NAD, VSS, sepsis resolved no fevers, New PICC Line today * Podiatry note: Patient will be scheduled for incision and drainage of the right big toe abscess with open wound. * Vascular note: Angiogram after infection clears * S.CREAT elevated to 1.56 from 1.0 yesterday Physical examination: 61 yo man who is in no distress HEENT: Unremarkable CHEST: Equal chest rise bilaterally without dyspnea on observation CV: Radial pulse RRR ABD: Soft, nontender : Deferred EXT: Warm, no cyanosis SKIN: No rash, no diaphoresis ID ASSESSMENT 61 yo M w/PMHx CVA, HTN, HLD, PAD admit with 1. Infected left great toe diabetic foot ulcer/possible abscess/(+) osteomyelitis distal great toe * ESR 100 (03/15/17) * 03/17/17 MRI Foot: 1. Findings consistent with focal osteomyelitis of the terminal tuft of the great toe distal phalanx laterally. 2. There is adjacent soft tissue mass that could be a phlegmon or early abscess. * 03/17/17 VENOUS: (-) The greater saphenous veins demonstrate normal compressibility with no thrombus or occlusion. * 03/15/17 ARTERIAL: 1. Diminished left first toe ankle-brachial index which may indicate small vessel disease. 2. Otherwise normal bilateral lower extremity arterial Doppler 2. Severe septicemia -> BCx(+)GBS with lactic acidosis secondary to #1=> RESOLVED * 03/15/17 BCx (+) Organism 1 STREP AGALACTIAE - (GROUP B) 3. Acute kidney injury => S.CREAT elevated to 1.56 (03/21) from 1.0 (03/20) 4. COPD-> former tobacco * Hypoxic respiratory distress in setting acute sepsis => RESOLVED 5. Hyperglycemia with type 2 diabetes with complication of peripheral neuropathy . 6. Tiny 6.5 mm micronodule in the anteromedial right upper lobe * -Follow-up CT in 6 months to one year recommended. CURRENT ABX: => Clindamycin IV #1 + Ceftriaxone #1 TOTAL ABX DAY #7 s/p Vanco IV + Zosyn ID RECOMMENDATIONS 1. Worsening renal fx on current ABX -> Patient will need future angio with contrast * DC Vanco IV, DC Zosyn * AVOID RENAL TOXIC ABX * START Clindamycin IV #1 + Ceftriaxone #1 2. MRI revealed concern of possible adjacent abscess formation; hence he remains on Vanco IV/Zosyn - * Podiatry note: Patient will be scheduled for incision and drainage of the right big toe abscess with open wound. * Vascular note: Angiogram after infection clears . Problems: Consultation Date/Type/Reason Admit Date/Time Mar 15, 2017 at 09:42 Initial Consult Date 03/15/17 Type of Consultation: ID Referring Provider: JOSÉ LILLY Exam/Review of Systems Vital Signs Vitals Vital Signs Date Time Temp Pulse Resp B/P Pulse Ox O2 Delivery O2 Flow Rate FiO2 03/21/17 16:27 77 17 95 21 03/21/17 15:42 98.0 161/69 03/21/17 07:49 Nasal Cannula 2.0 Intake and Output 03/20/17 03/20/17 03/21/17 15:00 23:00 07:00 Intake Total 350 ml 1310 ml 500 ml Output Total 975 ml Balance 350 ml 1310 ml -475 ml Results Result Diagram: 03/20/17 0451 03/21/17 0542 Results 24 hrs Laboratory Tests Test 03/20/17 17:30 03/20/17 20:55 03/21/17 05:42 03/21/17 07:51 Bedside Glucose 317 H 155 172 Sodium Level 141 Potassium Level 3.8 Chloride Level 104 Carbon Dioxide Level 25 Anion Gap 16 Blood Urea Nitrogen 15 Creatinine 1.52 H Glucose Level 213 Calcium Level 9.0 Magnesium Level 2.0 Test 03/21/17 12:01 03/21/17 16:25 03/21/17 16:58 Bedside Glucose 215 215 Vancomycin Level Trough 23.8 *H Medications Medications Current Medications Amlodipine Besylate (Norvasc) 5 mg DAILY PO Last administered on 03/21/17 08:17 ; Admin Dose 5 MG; Start 03/16/17 at 09:00 Cholecalciferol (Vitamin D) 2,000 unit DAILY PO Last administered on 03/21/17 08:17; Admin Dose 2,000 UNIT; Start 03/15/17 at 11:30 Diagnostic Test (Pha) 1 ea 1 ea 02 XX Last administered on 03/20/17 02:22; Admin Dose 1 EA; Start 03/16/17 at 02:00 Piperacillin Sod/ Tazobactam Sod (Zosyn 3.375gm/ 100 ml (Pmx)) 100 ml @ 200 mls /hr Q6 IVPB Last administered on 03/21/17 17:02; Admin Dose 200 MLS/HR; Start 03/15/17 at 13:00 Linagliptin (Tradjenta) 5 mg DAILY PO Last administered on 03/21/17 08:17; Admin Dose 5 MG; Start 03/16/17 at 09:00 Hydralazine HCl (Apresoline) 10 mg Q6H PRN IV SBP>160 Last administered on 02:15; Admin Dose 10 MG; Start 03/15/17 at 11:00 Ondansetron HCl (Zofran Inj) 4 mg Q6H PRN IV NAUSEA AND/OR VOMITING Last administered on 03/15/17 16:39; Admin Dose 4 MG; Start 03/15/17 at 11:00 Acetaminophen (Tylenol Tab) 650 mg Q6H PRN PO PAIN LEVEL 1-3 OR FEVER Last administered on 03/19/17 14:03; Admin Dose 650 MG; Start 03/15/17 at 11:00 Acetaminophen (Tylenol Supp) 650 mg Q6H PRN [place] PAIN LEVEL 1-3 OR FEVER; Start 03/15/17 at 11:00 Docusate Sodium (Colace) 100 mg Q12H PRN PO CONSTIPATION; Start 03/15/17 at 11: 00 Heparin Sodium (Porcine) (Heparin (5000 Units/0.5 ml)) 5,000 unit Q12 SC Last administered on 03/21/17 08:18; Admin Dose 5,000 UNIT; Start 03/15/17 at 21:00 Miscellaneous Information 1 ea NOTE XX ; Start 03/15/17 at 11:30 Glucose (Glutose) 15 gm Q15M PRN PO DECREASED GLUCOSE; Start 03/15/17 at 11:30 Glucose (Glutose) 22.5 gm Q15M PRN PO DECREASED GLUCOSE; Start 03/15/17 at 11: 30 Dextrose (D50w Syringe) 25 ml Q15M PRN IV DECREASED GLUCOSE; Start 03/15/17 at 11:30 Dextrose (D50w Syringe) 50 ml Q15M PRN IV DECREASED GLUCOSE; Start 03/15/17 at 11:30 Glucagon (Glucagen) 1 mg Q15M PRN IM DECREASED GLUCOSE; Start 03/15/17 at 11:30 Glucose (Glutose) 15 gm Q15M PRN BUCCAL DECREASED GLUCOSE; Start 03/15/17 at 11 :30 Aspirin (Aspirin) 81 mg DAILY PO Last administered on 03/21/17 08:17; Admin Dose 81 MG; Start 03/16/17 at 09:00 Guaifenesin/ Dextromethorphan (Mucinex Dm) 1 tab BID PO Last administered on 08:17; Admin Dose 1 TAB; Start 03/16/17 at 21:00 Benzonatate (Tessalon) 100 mg TID PRN PO cough Last administered on 03/21/17 11 :14; Admin Dose 100 MG; Start 03/17/17 at 16:00 Guaifenesin/ Dextromethorphan (Robitussin Dm Liquid Cup) 10 ml Q4H PRN PO cough Last administered on 03/20/17 02:21; Admin Dose 10 ML; Start 03/19/17 at 14:30 Morphine Sulfate (morphine) 2 mg Q4H PRN IV SEVERE PAIN LEVEL 7-10 Last administered on 03/21/17 11:14; Admin Dose 2 MG; Start 03/19/17 at 14:30 Collagenase (Santyl) 1 applic DAILY TOP Last administered on 03/21/17 10:50; Admin Dose 1 APPLIC; Start 03/20/17 at 16:00 Insulin Glargine (Lantus) 40 unit HS SC ; Start 03/21/17 at 21:00 IV Flush 10 ml 10 ml PRN PRN IV FLUSH LINE; Start 03/21/17 at 15:00 Sodium Chloride 1,000 ml @ 75 mls/hr [id number] IV Last administered on 03/21/17 16:48; Admin Dose 75 MLS/HR; Start 03/21/17 at 17:00; Stop 03/22/17 at 06:19 Vancomycin HCl/ Sodium Chloride (Vancocin/NS) 250 ml @ 83.333 mls/ hr Q24H IVPB ; Start 03/22/17 at 06:00 MYRNA MCCAIN NP Mar 21, 2017 17:35
[2017-03-21] MEDS: CEFTRIAXONE 1 GM/50 ML (PMX) 50 ML IVPB SCH (17:46)
[2017-03-21] MEDS: CLINDAMYCIN 600 MG/D5W (PMX) 50 ML IVPB SCH (18:38)
[2017-03-21] MEDS ORDERED: INSULIN GLARGINE [LANtus] 3 ML PEN SC SCH (21:00)
[2017-03-21 21:11] VITALS: BP 170/77; RESP 18
[2017-03-22] MEDS: CLINDAMYCIN 600 MG/D5W (PMX) 50 ML IVPB SCH ×3 (01:02→11:07)
[2017-03-22] MEDS: ACCU-CHEK XX SCH (02:00)
[2017-03-22 03:03] VITALS: BP 134/64; RESP 18
[2017-03-22] MEDS ORDERED: VANCOMYCIN 1.25 GM in SOD CHLORIDE 0.9% 250 ML IVPB SCH (06:00)
[2017-03-22 07:03] LABS: CALCIUM 9.2 mg/dl (8.4-10.2); CREATININE 1.28 mg/dl (0.61-1.24); POTASSIUM 4.4 mmol/L (3.5-5.1)
[2017-03-22] MEDS: INSULIN ASPART [NOVOLOG] 3 ML PEN SC SCH ×7 (07:35→20:21)
[2017-03-22] MEDS: CHOLECALCIFEROL 2,000 UNIT CAP PO SCH ×2 (07:46→13:15)
[2017-03-22] MEDS: ASPIRIN 81 MG TAB PO SCH ×2 (07:46→13:15)
[2017-03-22] MEDS: metFORMIN 500 MG TAB PO SCH ×2 (07:46→17:22)
[2017-03-22] MEDS: LINAGLIPTIN 5 MG TABLET PO SCH ×2 (07:46→13:15)
[2017-03-22] MEDS: GUAIFENESIN/DM (SR) TAB PO SCH ×3 (07:46→20:18)
[2017-03-22] MEDS: HEPARIN 5,000 UNIT/0.5 ML VIAL SC SCH ×3 (07:47→20:21)
[2017-03-22] MEDS: COLLAGENASE 30 GM TUBE TOP SCH ×2 (07:47→13:15)
[2017-03-22 08:00] VITALS: BP 169/75; RESP 18
[2017-03-22] MEDS: AMLODIPINE 5 MG TAB PO SCH ×2 (09:00→13:15)
--- NOTE | 2017-03-22 09:16 | PN ---
Date/Time of Note Date/Time of Note DATE: 03/22/17 TIME: 09:11 Assessment/Plan VTE Prophylaxis VTE Prophylaxis Intervention: heparin Lines/Catheters IV [facility] PICC Line Central line still needed: Yes Urinary Cath still in place: No Assessment/Plan Chief Complaint/Hosp Course 1. Infected left great toe diabetic foot ulcer. MRI consistent with focal osteomyelitis of the terminal tuft of the great toe distal phalanx laterally with adjacent soft tissue mass that could be a phlegmon or early abscess. -Appreciate podiatry evaluation and plan is for incision and drainage of the left big toe abscess with open wound. -Vascular on board and recommended angiogram only if wound not healing well- recommendation is to continue current medical management with antibiotics and reevaluate for angiogram at a later time. -Continue wound care, broad-spectrum IV antibiotics 2. GBS bacteremia with severe sepsis secondary to #1. Resolved -Treatment as per above 3. Hypoxic respiratory failure most likely secondary to severe sepsis. Resolved. -Continue bronchodilators PRN. 4. Acute kidney injury likely secondary to severe sepsis. -Avoid nephrotoxins and continue to monitor. Follow-up with nephrology recommendations. 5. Hyperglycemia with type 2 diabetes. -Continue Accu-Cheks/ISS. Increased Lantus 45 units and increase pre-meals to 15 units with a goal of blood sugar below 180. -Continue metformin and continue Tradjenta. 6. Essential hypertension. -Continue antihypertensives. 7. Morbid obesity. -Weight reduction and therapeutic lifestyle changes upon discharge. 8. Dyslipidemia. -On statin 9. PAD -Low-dose aspirin. 10. History of cerebrovascular accident. No present issues. 11.Tiny 6.5 mm micronodule in the anteromedial right upper lobe -Follow-up CT in 6 months to one year recommended. DVT prophylaxis: Heparin PUD prophylaxis: Pepcid. Plan: Patient is for IND of abscess of right big toe with podiatry today. In regards to osteomyelitis, recommendation is 6 weeks antibiotic and reevaluation. We will follow-up with ID regarding course of antibiotics after I &D today. Case management was requested for home health service, podiatry and vascular follow-up arrangements upon discharge. Case discussed with Dr. Rivero Problems: Subjective 24 Hr Interval Summary Free Text/Dictation Patient is for incision and drainage of toast today with podiatry. Remains afebrile. Exam/Review of Systems Vital Signs Vitals Vital Signs Date Time Temp Pulse Resp B/P Pulse Ox O2 Delivery O2 Flow Rate FiO2 03/22/17 08:00 98.3 82 18 169/75 93 03/21/17 21:09 21 03/21/17 07:49 Nasal Cannula 2.0 Intake and Output 03/21/17 03/21/17 03/22/17 15:00 23:00 07:00 Intake Total 350 ml 1280 ml 1960 ml Output Total 850 ml 1400 ml Balance 350 ml 430 ml 560 ml Exam General: Obese male in no acute distress. HEENT: Normocephalic, Atraumatic, No laceration or hematoma; Eyes: PEERL, Conjunctiva clear, Anicteric sclera Neck: Supple without any lymphadenopathy, nontender, no JVD, no carotid bruits, trachea midline, no thyromegaly Cardiac: S1, S2 auscultated, regular rhythm and rate, no mumurs or gallop Pulmonary: Normal respiratory effort. Chest clear to auscultation bilaterally, no adventitious breath sounds GI: Abdomen obese, soft, Non tender, non- distended, no masses, no rebound tenderness or guarding. Bowel sounds active on all four quadrants Genitourinary: Deferred Extremities: +Erythema /warmth/severe tenderness to the dorsum of the left foot Ulceration on left great toe-erythema and tenderness-improving. Pulses [1+] bilaterally. Full ROM on all four extremities. No focal weakness appreciated. Neurologic: Alert to person, place, time, and situation. Affect appropriate, intact sensation. Skin: Clean,dry, and intact. No ecchymosis, no rashes, or lesions Results Result Diagram: 03/20/17 0451 03/22/17 0515 Results 24 hrs Laboratory Tests Test 03/21/17 12:01 03/21/17 16:25 03/21/17 16:58 03/21/17 20:34 Bedside Glucose 215 215 209 Vancomycin Level Trough 23.8 *H Test 03/22/17 05:15 03/22/17 07:48 Sodium Level 141 Potassium Level 4.4 Chloride Level 103 Carbon Dioxide Level 25 Anion Gap 17 H Blood Urea Nitrogen 15 Creatinine 1.28 H Glucose Level 224 H Calcium Level 9.2 Bedside Glucose 206 Medications Medications Current Medications Amlodipine Besylate (Norvasc) 5 mg DAILY PO Last administered on 03/21/17 08:17 ; Admin Dose 5 MG; Start 03/16/17 at 09:00 Cholecalciferol (Vitamin D) 2,000 unit DAILY PO Last administered on 03/21/17 08:17; Admin Dose 2,000 UNIT; Start 03/15/17 at 11:30 Diagnostic Test (Pha) (Accu-Chek) 1 ea 02 XX Last administered on 03/20/17 02: 22; Admin Dose 1 EA; Start 03/16/17 at 02:00 Linagliptin (Tradjenta) 5 mg DAILY PO Last administered on 03/21/17 08:17; Admin Dose 5 MG; Start 03/16/17 at 09:00 Hydralazine HCl (Apresoline) 10 mg Q6H PRN IV SBP>160 Last administered on 02:15; Admin Dose 10 MG; Start 03/15/17 at 11:00 Ondansetron HCl (Zofran Inj) 4 mg Q6H PRN IV NAUSEA AND/OR VOMITING Last administered on 03/15/17 16:39; Admin Dose 4 MG; Start 03/15/17 at 11:00 Acetaminophen (Tylenol Tab) 650 mg Q6H PRN PO PAIN LEVEL 1-3 OR FEVER Last administered on 03/19/17 14:03; Admin Dose 650 MG; Start 03/15/17 at 11:00 Acetaminophen (Tylenol Supp) [address] PAIN LEVEL 1-3 OR FEVER; Start 03/15/17 at 11:00 Docusate Sodium (Colace) 100 mg Q12H PRN PO CONSTIPATION; Start 03/15/17 at 11: 00 Heparin Sodium (Porcine) (Heparin (5000 Units/0.5 ml)) 5,000 unit Q12 SC Last administered on 03/21/17 20:41; Admin Dose 5,000 UNIT; Start 03/15/17 at 21:00 Miscellaneous Information 1 ea NOTE XX ; Start 03/15/17 at 11:30 Glucose (Glutose) 15 gm Q15M PRN PO DECREASED GLUCOSE; Start 03/15/17 at 11:30 Glucose (Glutose) 22.5 gm Q15M PRN PO DECREASED GLUCOSE; Start 03/15/17 at 11: 30 Dextrose (D50w Syringe) 25 ml Q15M PRN IV DECREASED GLUCOSE; Start 03/15/17 at 11:30 Dextrose (D50w Syringe) 50 ml Q15M PRN IV DECREASED GLUCOSE; Start 03/15/17 at 11:30 Glucagon (Glucagen) 1 mg Q15M PRN IM DECREASED GLUCOSE; Start 03/15/17 at 11:30 Glucose (Glutose) 15 gm Q15M PRN BUCCAL DECREASED GLUCOSE; Start 03/15/17 at 11 :30 Aspirin (Aspirin) 81 mg DAILY PO Last administered on 03/21/17 08:17; Admin Dose 81 MG; Start 03/16/17 at 09:00 Guaifenesin/ Dextromethorphan (Mucinex Dm) 1 tab BID PO Last administered on 20:38; Admin Dose 1 TAB; Start 03/16/17 at 21:00 Benzonatate (Tessalon) 100 mg TID PRN PO cough Last administered on 03/21/17 11 :14; Admin Dose 100 MG; Start 03/17/17 at 16:00 Guaifenesin/ Dextromethorphan (Robitussin Dm Liquid Cup) 10 ml Q4H PRN PO cough Last administered on 03/20/17 02:21; Admin Dose 10 ML; Start 03/19/17 at 14:30 Morphine Sulfate (morphine) 2 mg Q4H PRN IV SEVERE PAIN LEVEL 7-10 Last administered on 03/21/17 20:54; Admin Dose 2 MG; Start 03/19/17 at 14:30 Collagenase (Santyl) 1 applic DAILY TOP Last administered on 03/21/17 10:50; Admin Dose 1 APPLIC; Start 03/20/17 at 16:00 Insulin Glargine (Lantus) 40 unit HS SC Last administered on 03/21/17 20:45; Admin Dose 40 UNIT; Start 03/21/17 at 21:00 IV Flush 10 ml 10 ml PRN PRN IV FLUSH LINE; Start 03/21/17 at 15:00 Clindamycin HCl/ Dextrose 50 ml @ 50 mls/hr Q6 IVPB Last administered on 05:21; Admin Dose 50 MLS/HR; Start 03/21/17 at 18:00 Ceftriaxone Sodium (Rocephin) 50 ml @ 100 mls/hr Q24H IVPB Last administered on 03/21/17t 17:46; Admin Dose 100 MLS/HR; Start 03/21/17 at 18:00 BRANDON HERRERA NP Mar 22, 2017 09:16
[2017-03-22] MEDS: ALBUTEROL/IPRATROPIUM (NEB) 3 ML AMP HHN SCH ×4 (09:28→21:30)
[2017-03-22 09:44] VITALS: BP 144/67; PULSE 79
--- NOTE | 2017-03-22 11:22 | CONS ---
Date/Time of Note Date/Time of Note DATE: 03/22/17 TIME: 11:15 Assessment/Plan Assessment/Plan Chief Complaint/Hosp Course Assessment/Plan Chief Complaint/Hosp Course ID PROGRESS NOTE 24H INTERVAL SUMMARY CURRENT ABX: DAY #3 Vanco IV + Zosyn * Awake. Alert. No Acute Distress. Physical examination: 61 yo man who is in no distress HEENT: Unremarkable CHEST: Equal chest rise bilaterally without dyspnea on observation CV: Radial pulse RRR ABD: Soft, nontender : Deferred EXT: Warm, no cyanosis SKIN: No rash, no diaphoresis ID ASSESSMENT 61 yo M w/PMHx CVA, HTN, HLD, PAD admit with 1. Infected left great toe diabetic foot ulcer. * ESR 100 (03/15/17) 2. Severe septicemia -> BCx(+)GBS with lactic acidosis secondary to #1=> RESOLVED 3. Hypoxic respiratory failure most likely secondary to severe sepsis=> RESOLVED 4. COPD-> former tobacco 5. Acute kidney injury likely secondary to severe sepsis=> RESOLVED 6. Hyperglycemia with type 2 diabetes with complication of peripheral neuropathy . 7. Tiny 6.5 mm micronodule in the anteromedial right upper lobe * -Follow-up CT in 6 months to one year recommended. 8. Status Post PICC Line Placement CURRENT ABX: DAY #3 Vanco IV + Zosyn ID RECOMMENDATIONS 1. Plan to Discharge Home Tomorrow on IV Antibiotics if Cleared by Primary Physician. Problems: Consultation Date/Type/Reason Admit Date/Time Mar 15, 2017 at 09:42 Initial Consult Date 03/15/17 Type of Consultation: ID Referring Provider: JOÉS LILLY Exam/Review of Systems Vital Signs Vitals Vital Signs Date Time Temp Pulse Resp B/P Pulse Ox O2 Delivery O2 Flow Rate FiO2 03/22/17 09:44 79 144/67 03/22/17 09:28 20 97 21 03/22/17 08:00 98.3 03/21/17 07:49 Nasal Cannula 2.0 Intake and Output 03/21/17 03/21/17 03/22/17 15:00 23:00 07:00 Intake Total 350 ml 1280 ml 1960 ml Output Total 850 ml 1400 ml Balance 350 ml 430 ml 560 ml Results Result Diagram: 03/20/17 0451 03/22/17 0515 Results 24 hrs Laboratory Tests Test 03/21/17 12:01 03/21/17 16:25 03/21/17 16:58 03/21/17 20:34 Bedside Glucose 215 215 209 Vancomycin Level Trough 23.8 *H Test 03/22/17 05:15 03/22/17 07:48 Sodium Level 141 Potassium Level 4.4 Chloride Level 103 Carbon Dioxide Level 25 Anion Gap 17 H Blood Urea Nitrogen 15 Creatinine 1.28 H Glucose Level 224 H Calcium Level 9.2 Bedside Glucose 206 Medications Medications Current Medications Amlodipine Besylate (Norvasc) 5 mg DAILY PO Last administered on 03/21/17 08:17 ; Admin Dose 5 MG; Start 03/16/17 at 09:00 Cholecalciferol (Vitamin D) 2,000 unit DAILY PO Last administered on 03/21/17 08:17; Admin Dose 2,000 UNIT; Start 03/15/17 at 11:30 Diagnostic Test (Pha) (Accu-Chek) 1 ea 02 XX Last administered on 03/20/17 02: 22; Admin Dose 1 EA; Start 03/16/17 at 02:00 Linagliptin (Tradjenta) 5 mg DAILY PO Last administered on 03/21/17 08:17; Admin Dose 5 MG; Start 03/16/17 at 09:00 Hydralazine HCl (Apresoline) 10 mg Q6H PRN IV SBP>160 Last administered on 02:15; Admin Dose 10 MG; Start 03/15/17 at 11:00 Ondansetron HCl (Zofran Inj) 4 mg Q6H PRN IV NAUSEA AND/OR VOMITING Last administered on 03/15/17 16:39; Admin Dose 4 MG; Start 03/15/17 at 11:00 Acetaminophen (Tylenol Tab) 650 mg Q6H PRN PO PAIN LEVEL 1-3 OR FEVER Last administered on 03/19/17 14:03; Admin Dose 650 MG; Start 03/15/17 at 11:00 Acetaminophen (Tylenol Supp) 650 mg Q6H PRN [place] PAIN LEVEL 1-3 OR FEVER; Start 03/15/17 at 11:00 Docusate Sodium (Colace) 100 mg Q12H PRN PO CONSTIPATION; Start 03/15/17 at 11: 00 Heparin Sodium (Porcine) (Heparin (5000 Units/0.5 ml)) 5,000 unit Q12 SC Last administered on 03/21/17 20:41; Admin Dose 5,000 UNIT; Start 03/15/17 at 21:00 Miscellaneous Information 1 ea NOTE XX ; Start 03/15/17 at 11:30 Glucose (Glutose) 15 gm Q15M PRN PO DECREASED GLUCOSE; Start 03/15/17 at 11:30 Glucose (Glutose) 22.5 gm Q15M PRN PO DECREASED GLUCOSE; Start 03/15/17 at 11: 30 Dextrose (D50w Syringe) 25 ml Q15M PRN IV DECREASED GLUCOSE; Start 03/15/17 at 11:30 Dextrose (D50w Syringe) 50 ml Q15M PRN IV DECREASED GLUCOSE; Start 03/15/17 at 11:30 Glucagon (Glucagen) 1 mg Q15M PRN IM DECREASED GLUCOSE; Start 03/15/17 at 11:30 Glucose (Glutose) 15 gm Q15M PRN BUCCAL DECREASED GLUCOSE; Start 03/15/17 at 11 :30 Aspirin (Aspirin) 81 mg DAILY PO Last administered on 03/21/17 08:17; Admin Dose 81 MG; Start 03/16/17 at 09:00 Guaifenesin/ Dextromethorphan (Mucinex Dm) 1 tab BID PO Last administered on 20:38; Admin Dose 1 TAB; Start 03/16/17 at 21:00 Benzonatate (Tessalon) 100 mg TID PRN PO cough Last administered on 03/21/17 11 :14; Admin Dose 100 MG; Start 03/17/17 at 16:00 Guaifenesin/ Dextromethorphan (Robitussin Dm Liquid Cup) 10 ml Q4H PRN PO cough Last administered on 03/20/17 02:21; Admin Dose 10 ML; Start 03/19/17 at 14:30 Morphine Sulfate (morphine) 2 mg Q4H PRN IV SEVERE PAIN LEVEL 7-10 Last administered on 03/21/17 20:54; Admin Dose 2 MG; Start 03/19/17 at 14:30 Collagenase (Santyl) 1 applic DAILY TOP Last administered on 03/21/17 10:50; Admin Dose 1 APPLIC; Start 03/20/17 at 16:00 IV Flush 10 ml 10 ml PRN PRN IV FLUSH LINE; Start 03/21/17 at 15:00 Clindamycin HCl/ Dextrose 50 ml @ 50 mls/hr Q6 IVPB Last administered on 11:07; Admin Dose 50 MLS/HR; Start 03/21/17 at 18:00 Ceftriaxone Sodium (Rocephin) 50 ml @ 100 mls/hr Q24H IVPB Last administered on 03/21/17 17:46; Admin Dose 100 MLS/HR; Start 03/21/17 at 18:00 Insulin Glargine (Lantus) 45 unit HS SC ; Start 03/22/17 at 21:00 TEQUILA REYES NP Mar 22, 2017 11:22
--- NOTE | 2017-03-22 12:04 | CONS ---
Date/Time of Note Date/Time of Note DATE: 03/22/17 TIME: 12:02 Assessment/Plan Assessment/Plan Chief Complaint/Hosp Course 61-year-old obese male with a past medical history of hypertension, CVA , lung mass, former smoker, dyslipidemia, type 2 diabetes, diabetic foot ulcers , peripheral vascular disease, peripheral neuropathy, - admitted for Infected left great toe diabetic foot ulcer.Renal has been consulted for Acute kidney injury. Problems: Additional Assessment/Plan 1. 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 Infected left great toe diabetic foot ulcer. 3. Severe sepsis with lactic acidosis 4. Hypoxic respiratory failure most likely secondary to severe sepsis 5. Type II DM 6. Hypertension 7. Hyperlpidemia Plan: Urine studies unremarkable, Uric acid normal, Cr bumped improved from 1.5 to 1.28,, pt is on metformin, if Cr rising then will stop MTF s/p 1 liter NS yesterday, will monitor now IV abx as per ID, renally dose all abx, avoid Ibuprofen for pain control, monitor for vancomycin toxicity BP stable will continue to follow up. Consultation Date/Type/Reason Admit Date/Time Mar 15, 2017 at 09:42 Initial Consult Date 03/15/17 Type of Consultation: NEPHROLOGY Referring Provider: JOSÉ LILLY Exam/Review of Systems Vital Signs Vitals Vital Signs Date Time Temp Pulse Resp B/P Pulse Ox O2 Delivery O2 Flow Rate FiO2 03/22/17 09:44 79 144/67 03/22/17 09:28 20 97 21 03/22/17 08:00 98.3 03/21/17 07:49 Nasal Cannula 2.0 Intake and Output 03/21/17 03/21/17 03/22/17 15:00 23:00 07:00 Intake Total 350 ml 1280 ml 1960 ml Output Total 850 ml 1400 ml Balance 350 ml 430 ml 560 ml Results Result Diagram: 03/20/17 0451 03/22/17 0515 Results 24 hrs Laboratory Tests Test 03/21/17 16:25 03/21/17 16:58 03/21/17 20:34 03/22/17 05:15 Vancomycin Level Trough 23.8 *H Bedside Glucose 215 209 Sodium Level 141 Potassium Level 4.4 Chloride Level 103 Carbon Dioxide Level 25 Anion Gap 17 H Blood Urea Nitrogen 15 Creatinine 1.28 H Glucose Level 224 H Calcium Level 9.2 Test 03/22/17 07:48 03/22/17 11:17 Bedside Glucose 206 188 Medications Medications Current Medications Amlodipine Besylate (Norvasc) 5 mg DAILY PO Last administered on 03/21/17 08:17 ; Admin Dose 5 MG; Start 03/16/17 at 09:00 Cholecalciferol (Vitamin D) 2,000 unit DAILY PO Last administered on 03/21/17 08:17; Admin Dose 2,000 UNIT; Start 03/15/17 at 11:30 Diagnostic Test (Pha) (Accu-Chek) 1 ea 02 XX Last administered on 03/20/17 02: 22; Admin Dose 1 EA; Start 03/16/17 at 02:00 Linagliptin (Tradjenta) 5 mg DAILY PO Last administered on 03/21/17 08:17; Admin Dose 5 MG; Start 03/16/17 at 09:00 Hydralazine HCl (Apresoline) 10 mg Q6H PRN IV SBP>160 Last administered on 02:15; Admin Dose 10 MG; Start 03/15/17 at 11:00 Ondansetron HCl (Zofran Inj) 4 mg Q6H PRN IV NAUSEA AND/OR VOMITING Last administered on 03/15/17 16:39; Admin Dose 4 MG; Start 03/15/17 at 11:00 Acetaminophen (Tylenol Tab) 650 mg Q6H PRN PO PAIN LEVEL 1-3 OR FEVER Last administered on 03/19/17 14:03; Admin Dose 650 MG; Start 03/15/17 at 11:00 Acetaminophen (Tylenol Supp) 650 mg Q6H PRN [place] PAIN LEVEL 1-3 OR FEVER; Start 03/15/17 at 11:00 Docusate Sodium (Colace) 100 mg Q12H PRN PO CONSTIPATION; Start 03/15/17 at 11: 00 Heparin Sodium (Porcine) (Heparin (5000 Units/0.5 ml)) 5,000 unit Q12 SC Last administered on 03/21/17 20:41; Admin Dose 5,000 UNIT; Start 03/15/17 at 21:00 Miscellaneous Information 1 ea NOTE XX ; Start 03/15/17 at 11:30 Glucose (Glutose) 15 gm Q15M PRN PO DECREASED GLUCOSE; Start 03/15/17 at 11:30 Glucose (Glutose) 22.5 gm Q15M PRN PO DECREASED GLUCOSE; Start 03/15/17 at 11: 30 Dextrose (D50w Syringe) 25 ml Q15M PRN IV DECREASED GLUCOSE; Start 03/15/17 at 11:30 Dextrose (D50w Syringe) 50 ml Q15M PRN IV DECREASED GLUCOSE; Start 03/15/17 at 11:30 Glucagon (Glucagen) 1 mg Q15M PRN IM DECREASED GLUCOSE; Start 03/15/17 at 11:30 Glucose (Glutose) 15 gm Q15M PRN BUCCAL DECREASED GLUCOSE; Start 03/15/17 at 11 :30 Aspirin (Aspirin) 81 mg DAILY PO Last administered on 03/21/17 08:17; Admin Dose 81 MG; Start 03/16/17 at 09:00 Guaifenesin/ Dextromethorphan (Mucinex Dm) 1 tab BID PO Last administered on 20:38; Admin Dose 1 TAB; Start 03/16/17 at 21:00 Benzonatate (Tessalon) 100 mg TID PRN PO cough Last administered on 03/21/17 11 :14; Admin Dose 100 MG; Start 03/17/17 at 16:00 Guaifenesin/ Dextromethorphan (Robitussin Dm Liquid Cup) 10 ml Q4H PRN PO cough Last administered on 03/20/17 02:21; Admin Dose 10 ML; Start 03/19/17 at 14:30 Morphine Sulfate (morphine) 2 mg Q4H PRN IV SEVERE PAIN LEVEL 7-10 Last administered on 03/21/17 20:54; Admin Dose 2 MG; Start 03/19/17 at 14:30 Collagenase (Santyl) 1 applic DAILY TOP Last administered on 03/21/17 10:50; Admin Dose 1 APPLIC; Start 03/20/17 at 16:00 IV Flush 10 ml 10 ml PRN PRN IV FLUSH LINE; Start 03/21/17 at 15:00 Clindamycin HCl/ Dextrose 50 ml @ 50 mls/hr Q6 IVPB Last administered on 11:07; Admin Dose 50 MLS/HR; Start 03/21/17 at 18:00 Ceftriaxone Sodium (Rocephin) 50 ml @ 100 mls/hr Q24H IVPB Last administered on 03/21/17t 17:46; Admin Dose 100 MLS/HR; Start 03/21/17 at 18:00 Insulin Glargine (Lantus) 45 unit HS SC ; Start 03/22/17 at 21:00 SCOTT LAU MD Mar 22, 2017 12:03
[2017-03-22 14:00] VITALS: BP 173/80; RESP 19
--- NOTE | 2017-03-22 16:17 | CONS ---
Date/Time of Note Date/Time of Note DATE: 03/22/17 TIME: 15:21 Assessment/Plan Assessment/Plan Chief Complaint/Hosp Course ID PROGRESS NOTE 24H INTERVAL SUMMARY CURRENT ABX: => Clindamycin IV #2 + Ceftriaxone #2 TOTAL ABX DAY #8 s/p Vanco IV + Zosyn * Awake, NAD, VSS, sepsis resolved no fevers, New PICC Line 03/21 * Dr. Gaspar has contacted RN and case fitter -- he would like to continue monitoring left great toe/foot for resolution of edema/infection, possible abscess on IV ABX with OP follow up, no I&D planned this visit. * Vascular note: Angiogram after infection clears * S.CREAT elevated to 1.56 yesterday -> Vanco Zosyn DC'd now S.CR down to 1.28 Physical examination: 61 yo man who is in no distress HEENT: Unremarkable CHEST: Equal chest rise bilaterally without dyspnea on observation CV: Radial pulse RRR ABD: Soft, nontender : Deferred EXT: Warm, no cyanosis SKIN: No rash, no diaphoresis ID ASSESSMENT 61 yo M w/PMHx CVA, HTN, HLD, PAD admit with 1. Infected left great toe diabetic foot ulcer/possible abscess/(+) osteomyelitis distal great toe * ESR 100 (03/15/17) * 03/17/17 MRI Foot: 1. Findings consistent with focal osteomyelitis of the terminal tuft of the great toe distal phalanx laterally. 2. There is adjacent soft tissue mass that could be a phlegmon or early abscess. * 03/17/17 VENOUS: (-) The greater saphenous veins demonstrate normal compressibility with no thrombus or occlusion. * 03/15/17 ARTERIAL: 1. Diminished left first toe ankle-brachial index which may indicate small vessel disease. 2. Otherwise normal bilateral lower extremity arterial Doppler 2. Severe septicemia -> BCx(+)GBS with lactic acidosis secondary to #1=> RESOLVED * 03/15/17 BCx (+) Organism 1 STREP AGALACTIAE - (GROUP B) 3. Acute kidney injury => S.CREAT elevated to 1.56 yesterday -> Vanco Zosyn DC 'd now S.CR down to 1.28 4. COPD-> former tobacco * Hypoxic respiratory distress in setting acute sepsis => RESOLVED 5. Hyperglycemia with type 2 diabetes with complication of peripheral neuropathy . 6. Tiny 6.5 mm micronodule in the anteromedial right upper lobe * -Follow-up CT in 6 months to one year recommended. INVASIVES: PICC-> 03/21/17 CURRENT ABX: => Clindamycin IV #2 + Ceftriaxone #2 TOTAL ABX DAY #8 s/p Vanco IV + Zosyn ID RECOMMENDATIONS 1. PLAN FOR I&D this visit has changed: * Dr. Gaspar has contacted RN and case fitter -- he would like to continue monitoring left great toe/foot for resolution of edema/infection, possible abscess on IV ABX with OP follow up, no I&D planned this visit. * Vascular note: Angiogram after infection clears 2. MRI revealed osteomyelitis at distal tip of left great toe, possibility of adjacent abscess formation vs fluid => Will treat for 6 weeks with Ceftriaxone for strep (+)bacteremia w/28 days empiric coverage for staph. 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 Gaspar OP. 3. Patient may DC home with the following: * Ceftriaxone 1GM IVPB daily via PICC line for total of 38 days. * PICC care via protocol, may DC PICC upon completion of IV ABX. * Doxycycline 100mg po Q12 x 28 days (empiric coverage for staph organisms since no I&D performed) * Patient to f/u with Dr. Gaspar outpatient. Thank you * Note I spend 30 minutes @ bedside with professional services manager answering all patient's questions about change of treatment, relayed Dr. Ivy' recommendation, explained new order DM foot, limited ambulation, and HH ABX plan of care. * After several explanations of the same information; patient was able to express verbal understanding/agreement/and gratitude for plan of care -- explained to him we need to trust Dr. Gaspar's judgment; that it is better not to cut open his toe/foot unless Dr. Gaspar convinced this is needed; explained cutting has risks and that Dr. Gaspar wants him to continue ABX and he will continue evaluating. Patient education to return to ED in the event left foot infection worsens -- seek medical attention for fevers/chills/worsening foot pain, increased redness, discoloration, and/or if redness and swelling spread up his leg. Patient expresses understanding. . Problems: Consultation Date/Type/Reason Admit Date/Time Mar 15, 2017 at 09:42 Initial Consult Date 03/15/17 Type of Consultation: ID Referring Provider: JOSÉ LILLY Exam/Review of Systems Vital Signs Vitals Vital Signs Date Time Temp Pulse Resp B/P Pulse Ox O2 Delivery O2 Flow Rate FiO2 03/22/17 14:00 83 18 94 21 03/22/17 14:00 98.3 173/80 03/21/17 07:49 Nasal Cannula 2.0 Intake and Output 03/21/17 03/21/17 03/22/17 15:00 23:00 07:00 Intake Total 350 ml 1280 ml 1960 ml Output Total 850 ml 1400 ml Balance 350 ml 430 ml 560 ml Results Result Diagram: 03/20/17 0451 03/22/17 0515 Results 24 hrs Laboratory Tests Test 03/21/17 16:25 03/21/17 16:58 03/21/17 20:34 03/22/17 05:15 Vancomycin Level Trough 23.8 *H Bedside Glucose 215 209 Sodium Level 141 Potassium Level 4.4 Chloride Level 103 Carbon Dioxide Level 25 Anion Gap 17 H Blood Urea Nitrogen 15 Creatinine 1.28 H Glucose Level 224 H Calcium Level 9.2 Test 03/22/17 07:48 03/22/17 11:17 Bedside Glucose 206 188 Medications Medications Current Medications Amlodipine Besylate (Norvasc) 5 mg DAILY PO Last administered on 03/22/17 13:15 ; Admin Dose 5 MG; Start 03/16/17 at 09:00 Cholecalciferol (Vitamin D) 2,000 unit DAILY PO Last administered on 03/22/17 13:15; Admin Dose 2,000 UNIT; Start 03/15/17 at 11:30 Diagnostic Test (Pha) (Accu-Chek) 1 ea 02 XX Last administered on 03/20/17 02: 22; Admin Dose 1 EA; Start 03/16/17 at 02:00 Linagliptin (Tradjenta) 5 mg DAILY PO Last administered on 03/22/17 13:15; Admin Dose 5 MG; Start 03/16/17 at 09:00 Hydralazine HCl (Apresoline) 10 mg Q6H PRN IV SBP>160 Last administered on 02:15; Admin Dose 10 MG; Start 03/15/17 at 11:00 Ondansetron HCl (Zofran Inj) 4 mg Q6H PRN IV NAUSEA AND/OR VOMITING Last administered on 03/15/17 16:39; Admin Dose 4 MG; Start 03/15/17 at 11:00 Acetaminophen (Tylenol Tab) 650 mg Q6H PRN PO PAIN LEVEL 1-3 OR FEVER Last administered on 03/19/17 14:03; Admin Dose 650 MG; Start 03/15/17 at 11:00 Acetaminophen (Tylenol Supp) 650 mg Q6H PRN [place] PAIN LEVEL 1-3 OR FEVER; Start 03/15/17 at 11:00 Docusate Sodium (Colace) 100 mg Q12H PRN PO CONSTIPATION; Start 03/15/17 at 11: 00 Heparin Sodium (Porcine) (Heparin (5000 Units/0.5 ml)) 5,000 unit Q12 SC Last administered on 03/22/17 13:16; Admin Dose 5,000 UNIT; Start 03/15/17 at 21:00 Miscellaneous Information 1 ea NOTE XX ; Start 03/15/17 at 11:30 Glucose (Glutose) 15 gm Q15M PRN PO DECREASED GLUCOSE; Start 03/15/17 at 11:30 Glucose (Glutose) 22.5 gm Q15M PRN PO DECREASED GLUCOSE; Start 03/15/17 at 11: 30 Dextrose (D50w Syringe) 25 ml Q15M PRN IV DECREASED GLUCOSE; Start 03/15/17 at 11:30 Dextrose (D50w Syringe) 50 ml Q15M PRN IV DECREASED GLUCOSE; Start 03/15/17 at 11:30 Glucagon (Glucagen) 1 mg Q15M PRN IM DECREASED GLUCOSE; Start 03/15/17 at 11:30 Glucose (Glutose) 15 gm Q15M PRN BUCCAL DECREASED GLUCOSE; Start 03/15/17 at 11 :30 Aspirin (Aspirin) 81 mg DAILY PO Last administered on 03/22/17 13:15; Admin Dose 81 MG; Start 03/16/17 at 09:00 Guaifenesin/ Dextromethorphan (Mucinex Dm) 1 tab BID PO Last administered on 13:15; Admin Dose 1 TAB; Start 03/16/17 at 21:00 Benzonatate (Tessalon) 100 mg TID PRN PO cough Last administered on 03/21/17 11 :14; Admin Dose 100 MG; Start 03/17/17 at 16:00 Guaifenesin/ Dextromethorphan (Robitussin Dm Liquid Cup) 10 ml Q4H PRN PO cough Last administered on 03/20/17 02:21; Admin Dose 10 ML; Start 03/19/17 at 14:30 Morphine Sulfate (morphine) 2 mg Q4H PRN IV SEVERE PAIN LEVEL 7-10 Last administered on 03/21/17 20:54; Admin Dose 2 MG; Start 03/19/17 at 14:30 Collagenase (Santyl) 1 applic DAILY TOP Last administered on 03/22/17 13:15; Admin Dose 1 APPLIC; Start 03/20/17 at 16:00 IV Flush 10 ml 10 ml PRN PRN IV FLUSH LINE; Start 03/21/17 at 15:00 Clindamycin HCl/ Dextrose 50 ml @ 50 mls/hr Q6 IVPB Last administered on 11:07; Admin Dose 50 MLS/HR; Start 03/21/17 at 18:00 Ceftriaxone Sodium (Rocephin) 50 ml @ 100 mls/hr Q24H IVPB Last administered on 03/21/17 17:46; Admin Dose 100 MLS/HR; Start 03/21/17 at 18:00 Insulin Glargine (Lantus) 45 unit HS SC ; Start 03/22/17 at 21:00 MYRNA MCCAIN NP Mar 22, 2017 15:31
[2017-03-22] MEDS: CEFTRIAXONE 1 GM/50 ML (PMX) 50 ML IVPB SCH (17:22)
[2017-03-22] MEDS: DOXYCYCLINE 100 MG TAB PO SCH (17:23)
[2017-03-22 20:00] VITALS: BP 166/72; RESP 20
[2017-03-22] MEDS: morphine 4 MG/ML VIAL IV PRN (20:03)
[2017-03-22] MEDS ORDERED: INSULIN GLARGINE [LANtus] 3 ML PEN SC SCH (21:00)
[2017-03-23] MEDS: DOXYCYCLINE 100 MG TAB PO SCH ×2 (00:32→08:31)
[2017-03-23 02:00] VITALS: BP 179/82; RESP 20
[2017-03-23] MEDS: ACCU-CHEK XX SCH (02:00)
[2017-03-23] MEDS: hydrALAzine 20 MG INJ IV PRN (02:26)
[2017-03-23 05:08] VITALS: BP 155/72; PULSE 80; RESP 18
[2017-03-23 06:45] LABS: CALCIUM 9.4 mg/dl (8.4-10.2); CREATININE 1.25 mg/dl (0.61-1.24); MAGNESIUM 1.7 mg/dl (1.7-2.5); POTASSIUM 4.2 mmol/L (3.5-5.1)
[2017-03-23] MEDS: INSULIN ASPART [NOVOLOG] 3 ML PEN SC SCH ×6 (08:00→17:47)
[2017-03-23] MEDS: metFORMIN 500 MG TAB PO SCH ×2 (08:08→17:47)
[2017-03-23] MEDS: ALBUTEROL/IPRATROPIUM (NEB) 3 ML AMP HHN SCH ×3 (08:24→17:00)
[2017-03-23 08:27] VITALS: BP 161/76; RESP 20
[2017-03-23] MEDS: LINAGLIPTIN 5 MG TABLET PO SCH (08:31)
[2017-03-23] MEDS: ASPIRIN 81 MG TAB PO SCH (08:31)
[2017-03-23] MEDS: AMLODIPINE 5 MG TAB PO SCH (08:31)
[2017-03-23] MEDS: HEPARIN 5,000 UNIT/0.5 ML VIAL SC SCH (08:31)
[2017-03-23] MEDS: CHOLECALCIFEROL 2,000 UNIT CAP PO SCH (08:32)
[2017-03-23] MEDS: GUAIFENESIN/DM (SR) TAB PO SCH (08:32)
[2017-03-23] MEDS: COLLAGENASE 30 GM TUBE TOP SCH ×2 (09:00→17:52)
[2017-03-23 10:35] VITALS: BP 142/70; PULSE 80
--- NOTE | 2017-03-23 11:15 | PDOCDIS ---
Discharge Instructions CONDITION Patient Condition: Stable HOME CARE INSTRUCTIONS: Special Diet: 1800 alis ADA FOLLOW UP/APPOINTMENTS Follow-up Plan 1.Follow up with primary care physician in 1 week If you don't have one please let someone know, we can give you resources that may help you pick one. You may also call your insurance company to assign one to you. Review your medication list with your nurse before leaving and if you need new prescriptions please let your nurse know. I may have made changes to your home medications or given you new prescriptions, please let your primary doctor know as well. Stay compliant with your medications and report any side effects to your PCP or pharmacist. Return to the ER if you have any concerns and cannot reach your doctors or call your insurance company, they usually have a nurse that can help you. 2. Call 911 or go to the nearest emergency room if experiencing loss of consciousness, dizziness, chest pain, shortness of breath, vomiting/abdominal pain, speech difficulties, motor weakness or any unusual symptoms. 3.Follow up with and at [facility] wound care center in 1 week 4.Followup with in 2weeks [id number] [place] [address] Office BRANDON HERRERA NP Mar 23, 2017 11:15
[2017-03-23] MEDS ORDERED: NOVO3I SC (11:24)
[2017-03-23] MEDS ORDERED: CEFT2FRO2 IV (11:24)
[2017-03-23] MEDS ORDERED: SAN30GM TOP (11:24)
[2017-03-23] MEDS ORDERED: LANT3I SC (11:24)
[2017-03-23] MEDS ORDERED: DOXY100T2 PO (11:24)
[2017-03-23] MEDS ORDERED: METF500T PO (11:24)
[2017-03-23] MEDS ORDERED: LINA5TAB PO (11:24)
[2017-03-23] MEDS ORDERED: VALS40TA2 PO (11:28)
[2017-03-23] MEDS: morphine 4 MG/ML VIAL IV PRN (13:30)
--- NOTE | 2017-03-23 13:30 | CONS ---
Date/Time of Note Date/Time of Note DATE: 03/23/17 TIME: 13:24 Assessment/Plan Assessment/Plan Additional Assessment/Plan 61-year-old obese male with a past medical history of hypertension, CVA , lung mass, former smoker, dyslipidemia, type 2 diabetes, diabetic foot ulcers , peripheral vascular disease, peripheral neuropathy, - admitted for Infected left great toe diabetic foot ulcer.Renal has been consulted for Acute kidney injury. Assessment/Plan 1. 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 Infected left great toe diabetic foot ulcer. 3. Severe sepsis with lactic acidosis 4. Hypoxic respiratory failure most likely secondary to severe sepsis 5. Type II DM 6. Hypertension 7. Hyperlpidemia Plan: Urine studies unremarkable, Uric acid normal, Cr bumped improved from 1.5 to 1.28,, pt is on metformin, if Cr rising then will stop MTF s/p 1 liter NS yesterday, will monitor now IV abx as per ID, renally dose all abx, avoid Ibuprofen for pain control, monitor for vancomycin toxicity BP stable Patient is being discharged jese stable condition. Consultation Date/Type/Reason Admit Date/Time Mar 15, 2017 at 09:42 Initial Consult Date 03/15/17 Type of Consultation: NEPHROLOGY Referring Provider: JOSÉ LILLY 24 HR Interval Summary Free Text/Dictation Resting in bed, talking over phone, denieas any new issues. Going home today per staff. Patient is instructed to FU with his Ramp Flight Attendant as recommended. dw staff Constitutional: improved Exam/Review of Systems Vital Signs Vitals Vital Signs Date Time Temp Pulse Resp B/P Pulse Ox O2 Delivery O2 Flow Rate FiO2 03/23/17 10:35 80 142/70 03/23/17 08:27 98.1 20 94 03/23/17 05:08 Room Air 03/22/17 21:30 21 03/21/17 07:49 2.0 Intake and Output 03/22/17 03/22/17 03/23/17 14:59 22:59 06:59 Intake Total 200 ml 730 ml 800 ml Output Total 900 ml 800 ml Balance 200 ml -170 ml 0 ml Exam Constitutional: alert, oriented Respiratory: clear to auscultation Cardiovascular: nl pulses, regular rate and rhythm Gastrointestinal: non-tender, soft Musculoskeletal: other Extremities: normal pulses Neurological: nl mental status, nl speech, other Results Result Diagram: 03/20/17 0451 03/23/17 0458 Results 24 hrs Laboratory Tests Test 03/22/17 17:17 03/22/17 20:06 03/23/17 01:53 03/23/17 04:58 Bedside Glucose 271 H 189 173 Sodium Level 143 Potassium Level 4.2 Chloride Level 103 Carbon Dioxide Level 26 Anion Gap 18 H Blood Urea Nitrogen 16 Creatinine 1.25 H Glucose Level 147 # Calcium Level 9.4 Magnesium Level 1.7 Test 03/23/17 08:06 03/23/17 11:41 Bedside Glucose 128 117 Medications Medications Current Medications Amlodipine Besylate (Norvasc) 5 mg DAILY PO Last administered on 03/23/17 08:31 ; Admin Dose 5 MG; Start 03/16/17 at 09:00 Cholecalciferol (Vitamin D) 2,000 unit DAILY PO Last administered on 03/23/17 08:32; Admin Dose 2,000 UNIT; Start 03/15/17 at 11:30 Diagnostic Test (Pha) (Accu-Chek) 1 ea 02 XX Last administered on 03/20/17 02: 22; Admin Dose 1 EA; Start 03/16/17 at 02:00 Linagliptin (Tradjenta) 5 mg DAILY PO Last administered on 03/23/17 08:31; Admin Dose 5 MG; Start 03/16/17 at 09:00 Hydralazine HCl (Apresoline) 10 mg Q6H PRN IV SBP>160 Last administered on 02:26; Admin Dose 10 MG; Start 03/15/17 at 11:00 Ondansetron HCl (Zofran Inj) 4 mg Q6H PRN IV NAUSEA AND/OR VOMITING Last administered on 03/15/17 16:39; Admin Dose 4 MG; Start 03/15/17 at 11:00 Acetaminophen (Tylenol Tab) 650 mg Q6H PRN PO PAIN LEVEL 1-3 OR FEVER Last administered on 03/19/17 14:03; Admin Dose 650 MG; Start 03/15/17 at 11:00 Acetaminophen (Tylenol Supp) 650 mg Q6H PRN [place] PAIN LEVEL 1-3 OR FEVER; Start 03/15/17 at 11:00 Docusate Sodium (Colace) 100 mg Q12H PRN PO CONSTIPATION; Start 03/15/17 at 11: 00 Heparin Sodium (Porcine) (Heparin (5000 Units/0.5 ml)) 5,000 unit Q12 SC Last administered on 03/23/17 08:31; Admin Dose 5,000 UNIT; Start 03/15/17 at 21:00 Miscellaneous Information 1 ea NOTE XX ; Start 03/15/17 at 11:30 Glucose (Glutose) 15 gm Q15M PRN PO DECREASED GLUCOSE; Start 03/15/17 at 11:30 Glucose (Glutose) 22.5 gm Q15M PRN PO DECREASED GLUCOSE; Start 03/15/17 at 11: 30 Dextrose (D50w Syringe) 25 ml Q15M PRN IV DECREASED GLUCOSE; Start 03/15/17 at 11:30 Dextrose (D50w Syringe) 50 ml Q15M PRN IV DECREASED GLUCOSE; Start 03/15/17 at 11:30 Glucagon (Glucagen) 1 mg Q15M PRN IM DECREASED GLUCOSE; Start 03/15/17 at 11:30 Glucose (Glutose) 15 gm Q15M PRN BUCCAL DECREASED GLUCOSE; Start 03/15/17 at 11 :30 Aspirin (Aspirin) 81 mg DAILY PO Last administered on 03/23/17 08:31; Admin Dose 81 MG; Start 03/16/17 at 09:00 Guaifenesin/ Dextromethorphan (Mucinex Dm) 1 tab BID PO Last administered on 08:32; Admin Dose 1 TAB; Start 03/16/17 at 21:00 Benzonatate (Tessalon) 100 mg TID PRN PO cough Last administered on 03/21/17 11 :14; Admin Dose 100 MG; Start 03/17/17 at 16:00 Guaifenesin/ Dextromethorphan (Robitussin Dm Liquid Cup) 10 ml Q4H PRN PO cough Last administered on 03/20/17 02:21; Admin Dose 10 ML; Start 03/19/17 at 14:30 Morphine Sulfate (morphine) 2 mg Q4H PRN IV SEVERE PAIN LEVEL 7-10 Last administered on 03/22/17 20:03; Admin Dose 2 MG; Start 03/19/17 at 14:30 Collagenase (Santyl) 1 applic DAILY TOP Last administered on 03/22/17 13:15; Admin Dose 1 APPLIC; Start 03/20/17 at 16:00 IV Flush 10 ml 10 ml PRN PRN IV FLUSH LINE; Start 03/21/17 at 15:00 Ceftriaxone Sodium (Rocephin) 50 ml @ 100 mls/hr Q24H IVPB Last administered on 03/22/17 17:22; Admin Dose 100 MLS/HR; Start 03/21/17 at 18:00 Insulin Glargine (Lantus) 45 unit HS SC Last administered on 03/22/17 20:20; Admin Dose 45 UNIT; Start 03/22/17 at 21:00 Doxycycline Hyclate (Vibramycin) 100 mg BID PO Last administered on 03/23/17 08 :31; Admin Dose 100 MG; Start 03/22/17 at 16:30; Stop 04/19/17 at 16:29 EBONIE MIKE Mar 23, 2017 13:30
--- NOTE | 2017-03-23 14:11 | CONS ---
Date/Time of Note Date/Time of Note DATE: 03/23/17 TIME: 14:07 Assessment/Plan Assessment/Plan Chief Complaint/Hosp Course ID PROGRESS NOTE 24H INTERVAL SUMMARY CURRENT ABX: => + Ceftriaxone #3 + Doxy #1 TOTAL ABX DAY #8 Clindamycin IV #2-> DC 03/23 s/p Vanco IV + Zosyn * DC plan in place for today -- ABX adjusted for home RX -- he has new left foot shoe, no fevers, all questions answered in detail with casing machine operator yesterday and patient has no questions today -- He will follow up with Dr. Gaspar outpatient. Physical examination: 61 yo man who is in no distress HEENT: Unremarkable CHEST: Equal chest rise bilaterally without dyspnea on observation CV: Radial pulse RRR ABD: Soft, nontender : Deferred EXT: Warm, no cyanosis SKIN: No rash, no diaphoresis ID ASSESSMENT 61 yo M w/PMHx CVA, HTN, HLD, PAD admit with 1. Infected left great toe diabetic foot ulcer/possible abscess/(+) osteomyelitis distal great toe * ESR 100 (03/15/17) * 03/17/17 MRI Foot: 1. Findings consistent with focal osteomyelitis of the terminal tuft of the great toe distal phalanx laterally. 2. There is adjacent soft tissue mass that could be a phlegmon or early abscess. * 03/17/17 VENOUS: (-) The greater saphenous veins demonstrate normal compressibility with no thrombus or occlusion. * 03/15/17 ARTERIAL: 1. Diminished left first toe ankle-brachial index which may indicate small vessel disease. 2. Otherwise normal bilateral lower extremity arterial Doppler 2. Severe septicemia -> BCx(+)GBS with lactic acidosis secondary to #1=> RESOLVED * 03/15/17 BCx (+) Organism 1 STREP AGALACTIAE - (GROUP B) 3. Acute kidney injury => S.CREAT elevated to 1.56 yesterday -> Vanco Zosyn DC 'd now S.CR down to 1.28 4. COPD-> former tobacco * Hypoxic respiratory distress in setting acute sepsis => RESOLVED 5. Hyperglycemia with type 2 diabetes with complication of peripheral neuropathy . 6. Tiny 6.5 mm micronodule in the anteromedial right upper lobe * -Follow-up CT in 6 months to one year recommended. INVASIVES: PICC-> 03/21/17 CURRENT ABX: => + Ceftriaxone #3 + Doxy #1 TOTAL ABX DAY #8 Clindamycin IV #2-> DC 03/23 ID RECOMMENDATIONS 1. PLAN FOR I&D this visit has changed: * Dr. Gaspar has contacted RN and outsole caser -- he would like to continue monitoring left great toe/foot for resolution of edema/infection, possible abscess on IV ABX with OP follow up, no I&D planned this visit. * Vascular note: Angiogram after infection clears 2. MRI revealed osteomyelitis at distal tip of left great toe, possibility of adjacent abscess formation vs fluid => Will treat for 6 weeks with Ceftriaxone for strep (+)bacteremia w/28 days empiric coverage for staph. * Left diabetic shoe requested RN to obtain from central supply * PTx assist with DM shoe ambulation OK around the house and short trips driving to office to [employer] mail; otherwise he will stay off his foot until seen by Dr. Gaspar OP. 3. Patient may DC home with the following: * Ceftriaxone 1GM IVPB daily via PICC line for total of 38 days. * PICC care via protocol, may DC PICC upon completion of IV ABX. * Doxycycline 100mg po Q12 x 28 days (empiric coverage for staph organisms since no I&D performed) * Patient to f/u with Dr. Gaspar outpatient. . Problems: Consultation Date/Type/Reason Admit Date/Time Mar 15, 2017 at 09:42 Initial Consult Date 03/15/17 Type of Consultation: ID Referring Provider: JOSÉ LILLY Exam/Review of Systems Vital Signs Vitals Vital Signs Date Time Temp Pulse Resp B/P Pulse Ox O2 Delivery O2 Flow Rate FiO2 03/23/17 13:57 72 18 95 21 03/23/17 10:35 142/70 03/23/17 08:27 98.1 03/23/17 05:08 Room Air 03/21/17 07:49 2.0 Intake and Output 03/22/17 03/22/17 03/23/17 15:00 23:00 07:00 Intake Total 200 ml 730 ml 800 ml Output Total 900 ml 800 ml Balance 200 ml -170 ml 0 ml Results Result Diagram: 03/20/17 0451 03/23/17 0458 Results 24 hrs Laboratory Tests Test 03/22/17 17:17 03/22/17 20:06 03/23/17 01:53 03/23/17 04:58 Bedside Glucose 271 H 189 173 Sodium Level 143 Potassium Level 4.2 Chloride Level 103 Carbon Dioxide Level 26 Anion Gap 18 H Blood Urea Nitrogen 16 Creatinine 1.25 H Glucose Level 147 # Calcium Level 9.4 Magnesium Level 1.7 Test 03/23/17 08:06 03/23/17 11:41 Bedside Glucose 128 117 Medications Medications Current Medications Amlodipine Besylate (Norvasc) 5 mg DAILY PO Last administered on 03/23/17 08:31 ; Admin Dose 5 MG; Start 03/16/17 at 09:00 Cholecalciferol (Vitamin D) 2,000 unit DAILY PO Last administered on 03/23/17 08:32; Admin Dose 2,000 UNIT; Start 03/15/17 at 11:30 Diagnostic Test (Pha) (Accu-Chek) 1 ea 02 XX Last administered on 03/20/17 02: 22; Admin Dose 1 EA; Start 03/16/17 at 02:00 Linagliptin (Tradjenta) 5 mg DAILY PO Last administered on 03/23/17 08:31; Admin Dose 5 MG; Start 03/16/17 at 09:00 Hydralazine HCl (Apresoline) 10 mg Q6H PRN IV SBP>160 Last administered on 02:26; Admin Dose 10 MG; Start 03/15/17 at 11:00 Ondansetron HCl (Zofran Inj) 4 mg Q6H PRN IV NAUSEA AND/OR VOMITING Last administered on 03/15/17 16:39; Admin Dose 4 MG; Start 03/15/17 at 11:00 Acetaminophen (Tylenol Tab) 650 mg Q6H PRN PO PAIN LEVEL 1-3 OR FEVER Last administered on 03/19/17 14:03; Admin Dose 650 MG; Start 03/15/17 at 11:00 Acetaminophen (Tylenol Supp) 650 mg Q6H PRN [place] PAIN LEVEL 1-3 OR FEVER; Start 03/15/17 at 11:00 Docusate Sodium (Colace) 100 mg Q12H PRN PO CONSTIPATION; Start 03/15/17 at 11: 00 Heparin Sodium (Porcine) (Heparin (5000 Units/0.5 ml)) 5,000 unit Q12 SC Last administered on 03/23/17 08:31; Admin Dose 5,000 UNIT; Start 03/15/17 at 21:00 Miscellaneous Information 1 ea NOTE XX ; Start 03/15/17 at 11:30 Glucose (Glutose) 15 gm Q15M PRN PO DECREASED GLUCOSE; Start 03/15/17 at 11:30 Glucose (Glutose) 22.5 gm Q15M PRN PO DECREASED GLUCOSE; Start 03/15/17 at 11: 30 Dextrose (D50w Syringe) 25 ml Q15M PRN IV DECREASED GLUCOSE; Start 03/15/17 at 11:30 Dextrose (D50w Syringe) 50 ml Q15M PRN IV DECREASED GLUCOSE; Start 03/15/17 at 11:30 Glucagon (Glucagen) 1 mg Q15M PRN IM DECREASED GLUCOSE; Start 03/15/17 at 11:30 Glucose (Glutose) 15 gm Q15M PRN BUCCAL DECREASED GLUCOSE; Start 03/15/17 at 11 :30 Aspirin (Aspirin) 81 mg DAILY PO Last administered on 03/23/17 08:31; Admin Dose 81 MG; Start 03/16/17 at 09:00 Guaifenesin/ Dextromethorphan (Mucinex Dm) 1 tab BID PO Last administered on 08:32; Admin Dose 1 TAB; Start 03/16/17 at 21:00 Benzonatate (Tessalon) 100 mg TID PRN PO cough Last administered on 03/21/17 11 :14; Admin Dose 100 MG; Start 03/17/17 at 16:00 Guaifenesin/ Dextromethorphan (Robitussin Dm Liquid Cup) 10 ml Q4H PRN PO cough Last administered on 03/20/17 02:21; Admin Dose 10 ML; Start 03/19/17 at 14:30 Morphine Sulfate (morphine) 2 mg Q4H PRN IV SEVERE PAIN LEVEL 7-10 Last administered on 03/23/17 13:30; Admin Dose 2 MG; Start 03/19/17 at 14:30 Collagenase (Santyl) 1 applic DAILY TOP Last administered on 03/22/17 13:15; Admin Dose 1 APPLIC; Start 03/20/17 at 16:00 IV Flush 10 ml 10 ml PRN PRN IV FLUSH LINE; Start 03/21/17 at 15:00 Ceftriaxone Sodium (Rocephin) 50 ml @ 100 mls/hr Q24H IVPB Last administered on 03/22/17 17:22; Admin Dose 100 MLS/HR; Start 03/21/17 at 18:00 Insulin Glargine (Lantus) 45 unit HS SC Last administered on 03/22/17 20:20; Admin Dose 45 UNIT; Start 03/22/17 at 21:00 Doxycycline Hyclate (Vibramycin) 100 mg BID PO Last administered on 03/23/17 08 :31; Admin Dose 100 MG; Start 03/22/17 at 16:30; Stop 04/19/17 at 16:29 MYRNA MCCAIN NP Mar 23, 2017 14:10
--- NOTE | 2017-03-23 14:15 | DS ---
Date/Time of Note Date/Time of Note DATE: 03/23/17 TIME: 14:08 Discharge Summary Admission/Discharge Info Admit Date/Time Mar 15, 2017 at 09:42 Discharge Date/Time Discharge Diagnosis 1. Infected left great toe diabetic foot ulcer. On 6 weeks IV antibiotics. 2. GBS bacteremia with severe sepsis secondary to #1. Resolved 3. Hypoxic respiratory failure most likely secondary to severe sepsis. Resolved. 4. Acute kidney injury likely secondary to severe sepsis. Stable 5. Hyperglycemia with type 2 diabetes. 6. Essential hypertension. 7. Metabolic syndrome 8. Dyslipidemia. 9. PAD 10. History of cerebrovascular accident. 11.Tiny 6.5 mm micronodule in the anteromedial right upper lobe -Follow-up CT in 6 months to one year recommended. Patient Condition: Stable Consults , podiatry ,ID ,Nephrology Procedures 03/17/2017. Left foot MRI. IMPRESSION: 1. Findings consistent with focal osteomyelitis of the terminal tuft of the great toe distal phalanx laterally. 2. There is adjacent soft tissue mass that could be a phlegmon or early abscess. 03/21/2017. Left upper arm PICC line insertion by radiology. Hospital Course This is a 61-year-old overweight male with a past medical history of hypertension, CVA, lung mass, former smoker, dyslipidemia, type 2 diabetes, diabetic foot ulcers, peripheral vascular disease and peripheral neuropathy who essentially got admitted to [facility] with worsening left foot gangrene/ulcer. Upon presentation, patient was in sepsis with hypoxic respiratory failure. During the course of hospitalization, patient was treated with IV fluids, broad-spectrum IV antibiotics and pain medications. Patient was evaluated by multiple specialities including infectious disease, podiatry, nephrology and vascular. MRI of the left foot was consistent with osteomyelitis. There was also concern of a small abscess on left great toe which did not require any drainage per podiatry evaluation and would respond to antibiotics. Patient was resumed on his home medications for underlying comorbidities. Patient was found to have persistent hyperglycemia with type 2 diabetes with A1c 11.5. He was given diabetic education. Insulin was adjusted as needed. Patient was noted to have GBS bacteremia and was continued on appropriate antibiotic regimen. He also had a PICC line inserted on 03/21/2017. Renal function also was monitored closely by nephrology team . patient was given education on weight reduction and therapeutic lifestyle changes for underlying obesity. Sepsis was resolved and he did not have any further respiratory compromise and had normal respiratory function in room air. Patient did not have any further signs of infection. He was able to tolerate diet and activities well. At this time, left big toe infected diabetic ulcer was showing improvement with IV broad-spectrum antibiotic regimen and the recommendation was to discharge patient on 6 weeks of IV antibiotic with amputation prevention center follow-up. Patient would also need outpatient evaluation for vascular angiogram if wound failed to respond after 6 weeks of antibiotics. This was arranged with employment evaluator/case manager's assistance. During the course of hospitalization, patient was noted to have a tiny micronodule in the anteromedial right upper lobe and follow-up CT in 6 months to one year was recommended. Disposition: Patient will be discharged home with home health for continuation of IV antibiotics. Recommendation was to continue 6 weeks of ceftriaxone and 2 weeks of doxycycline. Her pressure medication also adjusted to Diovan 40 mg and Norvasc 5 mg per renal recommendation. He was also given prescription for adjust her dose of insulin for better glycemic control to facilitate wound healing at home. Patient verbalized discharge instructions. Condition at time of discharge is stable. Approximately 60 minutes was spent in coordinating the discharge on this patient. Case discussed with Dr. Rivero [facility] Active Scripts Valsartan* (Diovan*) 40 Mg Tablet, 40 MG PO DAILY for 30 Days, TAB Prov:HERRERA,BRANDON V. CAR PILOT 03/23/17 Insulin Aspart* (Novolog Insulin Pen*) 100 Unit/Ml Soln, 15 UNIT SC WITH MEALS for 30 Days, #1 SYR Prov:HERRERA,BRANDON V. CAR PILOT 03/23/17 Metformin Hcl (Glucophage) 500 Mg Tablet, 1000 MG PO BID WITH MEALS for 30 Days , #60 TAB Prov:HERRERA,BRANDON V. CAR PILOT 03/23/17 Linagliptin (TRADJENTA) 5 Mg Tablet, 5 MG PO DAILY for 30 Days, #30 TAB Prov:HERRERA,BRANDON V. CAR PILOT 03/23/17 Insulin Glargine* (Lantus*) 100 Unit/Ml Soln, 45 UNIT SC HS for 30 Days, #1 SYR Prov:HERRERA,BRANDON V. CAR PILOT 03/23/17 Collagenase* (Santyl*) 30 Gm Oint..gm., 1 APPLIC TOP DAILY for 42 Days, #1 APPLY TO LEFT TOW WOUND AFTER CLEANING WITH NORMAL SALINE AND APPLY KERLIX DRESSING. Prov:HERRERA,BRANDON V. CAR PILOT 03/23/17 Ceftriaxone Na/Dextrose,Iso (Ceftriaxone 2 gm Piggyback) 2 Gm/50 Ml Froz.piggy, 2 GM IV q24 for 42 Days, #42 Prov:HERRERA,BRANDON V. CAR PILOT 03/23/17 Doxycycline* (Vibramycin*) 100 Mg Tab, 100 MG PO BID for 28 Days, #56 TAB Prov:HERRERA,BRANDON V. CAR PILOT 03/23/17 Hydrocodone/Acetaminophen (Pierce 5-325 Tablet) 1 Each Tablet, 1 TAB PO Q6H Y for PAIN, #20 TAB Prov:VAISHALI MUNIZ. CAR PILOT 03/14/17 Reported Medications Amlodipine Besylate* (Norvasc*) 5 Mg Tablet, 5 MG PO DAILY, TAB 03/15/17 Sitagliptin Phos/Metformin HCl (Janumet 50-1,000 mg Tablet) 1 Each Tablet, 1 EACH PO BID, TAB 03/15/17 Ergocalciferol (Vitamin D2) (VITAMIN D2) 2,000 Unit Tablet, 2000 UNIT PO DAILY, TAB 03/15/17 Discontinued Reported Medications Insulin Glargine* (Lantus*) 100 Unit/Ml Soln, 15 UNIT SC BID, #1 VIAL 03/15/17 Valsartan* (Diovan*) 80 Mg Tablet, 80 MG PO DAILY, TAB 03/15/17 Acarbose* (Precose*) 25 Mg Tablet, 25 MG PO WITH MEALS, TAB 03/15/17 Follow-up Plan FOLLOW UP/APPOINTMENTS Follow-up Plan 1.Follow up with primary care physician in 1 week If you don't have one please let someone know, we can give you resources that may help you pick one. You may also call your insurance company to assign one to you. Review your medication list with your nurse before leaving and if you need new prescriptions please let your nurse know. I may have made changes to your home medications or given you new prescriptions, please let your primary doctor know as well. Stay compliant with your medications and report any side effects to your PCP or pharmacist. Return to the ER if you have any concerns and cannot reach your doctors or call your insurance company, they usually have a nurse that can help you. 2. Call 911 or go to the nearest emergency room if experiencing loss of consciousness, dizziness, chest pain, shortness of breath, vomiting/abdominal pain, speech difficulties, motor weakness or any unusual symptoms. 3.Follow up with and at [facility] wound care center in 1 week 4.Followup with in 2weeks [id number] [facility] [address] [place] [address] Office Primary Care Provider Hannah Dubois DO Pending Labs Laboratory Tests Test 03/22/17 17:17 03/22/17 20:06 03/23/17 01:53 03/23/17 04:58 Bedside Glucose 271mg/dL (70-220) 189mg/dL (70-220) 173mg/dL (70-220) Sodium Level 143mmol/L (135-144) Potassium Level 4.2mmol/L (3.5-5.1) Chloride Level 103mmol/L (97-110) Carbon Dioxide Level 26mmol/L (21-31) Anion Gap 18 (8-16) Blood Urea Nitrogen 16mg/dl (7-20) Creatinine 1.25mg/dl (0.61-1.24) Glucose Level 147mg/dl (70-220) Calcium Level 9.4mg/dl (8.4-10.2) Magnesium Level 1.7mg/dl (1.7-2.5) Test 03/23/17 08:06 03/23/17 11:41 Bedside Glucose 128mg/dL (70-220) 117mg/dL (70-220) BRANDON HERRERA NP Mar 23, 2017 14:15
[2017-03-23 15:30] VITALS: BP 129/61; RESP 20
[2017-03-23] MEDS: CEFTRIAXONE 1 GM/50 ML (PMX) 50 ML IVPB SCH (17:47)
== END 2017-03-23 20:20 | disposition home health service (06) | DRG 871 ==
LOC: E/R 06:47 → PP2 09:42 → MS4 14:05 → PP2 03-18 21:17
PROVIDERS: ADMIT Internal Medicine; ATTEND Internal Medicine
PROC: 02HV33Z Insertion of Infusion Device into Superior Vena Cava, Percutaneous Approach (ICD-10-PCS; principal; 2017-03-21)
DX: A40.1 Sepsis due to streptococcus, group B (principal); J96.01 Acute respiratory failure with hypoxia; R65.20 Severe sepsis without septic shock; N17.9 Acute kidney failure, unspecified; E87.2 Acidosis; L02.91 Cutaneous abscess, unspecified; M86.8X7 Other osteomyelitis, ankle and foot; E11.621 Type 2 diabetes mellitus with foot ulcer; E11.65 Type 2 diabetes mellitus with hyperglycemia; Z79.4 Long term (current) use of insulin; I10 Essential (primary) hypertension; E66.01 Morbid (severe) obesity due to excess calories; Z68.29 Body mass index [BMI] 29.0-29.9, adult; Z71.3 Dietary counseling and surveillance; E78.5 Hyperlipidemia, unspecified; E11.51 Type 2 diabetes mellitus with diabetic peripheral angiopathy without gangrene; R91.1 Solitary pulmonary nodule; E11.42 Type 2 diabetes mellitus with diabetic polyneuropathy; I70.245 Atherosclerosis of native arteries of left leg with ulceration of other part of foot; L97.522 Non-pressure chronic ulcer of other part of left foot with fat layer exposed; I70.201 Unspecified atherosclerosis of native arteries of extremities, right leg; J44.9 Chronic obstructive pulmonary disease, unspecified; Z87.891 Personal history of nicotine dependence
CPT/HCPCS: 36415; 36569; 36600; 71010; 71275; 73660; 73718; 74000; 76937; 80048; 80053; 80061; 80202; 81001; 81003; 82550; 82570; 82803; 82962; 83036; 83605; 83735; 83880; 84100; 84300; 84443; 84484; 84560; 85025; 85610; 85651; 85730; 86140; 87040; 87070; 87081; 87086; 89190; 93005; 93922; 93970; 94640; 94664; 96361; 96374; 96375; J0360; J0696; J1170; J1644; J1815; J2270; J2405; J2543; J3370; J3475; J7030; J7050; Q9967

== ENCOUNTER 2017-04-03 23:35 | Inpatient (IN) | payer OTHER ==
[~2017-04-03] VITALS: Ht 162.6 cm; Wt 87.0 kg
[~2017-04-03 23:35] MED LIST changes: +AMLO5TAB4 PO; -ASPI81TA3 PO; -ATOR20TA65 PO; -BENA40TA54 PO; +CEFT2FRO2 IV; -CLIN-73 PO; -DOCU-144 PO; +DOXY100T2 PO; +ERGO2000 PO; -GABA600T PO; -HC30CR25 TOP; -HYDR-902 PO; -INSU100C3 SQ; +LINA5TAB PO; -METF-406 PO; +METF500T PO; -METO-448 PO; +NOVO3I SC; -PANT40TA3 PO; +SAN30GM TOP; -SENN-53 PO; +SITA1TAB5 PO; -SULF1TAB31 PO; -TRAM50TA2 PO; +VALS40TA2 PO
[2017-04-04] VITALS (7 sets, daily range): BP systolic 126–169; BP diastolic 62–78; PULSE 87; RESP 16–20; TEMP 97.5; Ht 162.6 cm; Wt 87.0 kg
--- NOTE | 2017-04-04 03:26 | ERA ---
ER Documentation Chief Complaint Date/Time DATE: 04/04/17 TIME: 03:25 Chief Complaint left great toe infection per home nurse. No pain d/t neuropathy HPI 61-year-old male with left great toe infection. Patient on IV antibiotics at home. No nausea no vomiting no chills. History of neuropathy and peripheral vascular disease. ROS All systems reviewed and are negative except as per history of present illness. Medications Home Meds Active Scripts Valsartan* (Diovan*) 40 Mg Tablet, 40 MG PO DAILY for 30 Days, TAB Prov:BRANDON HERRERA NP 03/23/17 Insulin Aspart* (Novolog Insulin Pen*) 100 Unit/Ml Soln, 15 UNIT SC WITH MEALS for 30 Days, #1 SYR Prov:HERRERABRANDON NP 03/23/17 Metformin Hcl (Glucophage) 500 Mg Tablet, 1000 MG PO BID WITH MEALS for 30 Days , #60 TAB Prov:BRANDON HERRERA NP 03/23/17 Linagliptin (TRADJENTA) 5 Mg Tablet, 5 MG PO DAILY for 30 Days, #30 TAB Prov:HERRERABRANDON NP 03/23/17 Insulin Glargine* (Lantus*) 100 Unit/Ml Soln, 45 UNIT SC HS for 30 Days, #1 SYR Prov:BRANDON HERRERA NP 03/23/17 Collagenase* (Santyl*) 30 Gm Oint..gm., 1 APPLIC TOP DAILY for 42 Days, #1 APPLY TO LEFT TOW WOUND AFTER CLEANING WITH NORMAL SALINE AND APPLY KERLIX DRESSING. Prov:BRANDON HERRERA NP 03/23/17 Ceftriaxone Na/Dextrose,Iso (Ceftriaxone 2 gm Piggyback) 2 Gm/50 Ml Froz.piggy, 2 GM IV q24 for 42 Days, #42 Prov:BRANDON HERRERA NP 03/23/17 Doxycycline* (Vibramycin*) 100 Mg Tab, 100 MG PO BID for 28 Days, #56 TAB Prov:BRANDON HERRERA NP 03/23/17 Hydrocodone/Acetaminophen ([place] 5-325 Tablet) 1 Each Tablet, 1 TAB PO Q6H Y for PAIN, #20 TAB Prov:VAISHALI MUNIZ NP 03/14/17 Reported Medications Amlodipine Besylate* (Norvasc*) 5 Mg Tablet, 5 MG PO DAILY, TAB 03/15/17 Sitagliptin Phos/Metformin HCl (Janumet 50-1,000 mg Tablet) 1 Each Tablet, 1 EACH PO BID, TAB 03/15/17 Ergocalciferol (Vitamin D2) (VITAMIN D2) 2,000 Unit Tablet, 2000 UNIT PO DAILY, TAB 03/15/17 Allergies Allergies: Coded Allergies: No Known Allergy (Unverified , 04/03/17) PMhx/Soc Anesthesia Reaction: No Hx Neurological Disorder: Yes (cva,neuropathy) Hx Cardiac Disorders: Yes (htn) Hx Psychiatric Problems: No Hx Miscellaneous Medical Probl: No Hx Alcohol Use: No Hx Substance Use: No Hx Tobacco Use: No Physical Exam Vitals Vital Signs Date Time Temp Pulse Resp B/P Pulse Ox O2 Delivery O2 Flow Rate FiO2 04/03/17 23:48 98.4 88 18 155/74 96 Physical Exam Const: [] Head: Atraumatic Eyes: Normal Conjunctiva ENT: Normal External Ears, Nose and Mouth. Neck: Full range of motion..~ No meningismus. Resp: Clear to auscultation bilaterally Cardio: Regular rate and rhythm, no murmurs Abd: Soft, non tender, non distended. Normal bowel sounds Skin: No petechiae or rashes Back: No midline or flank tenderness Ext: Toe shows ulceration with serous drainage Neur: Awake and alert Psych: Normal Mood and Affect Procedures/MDM Medical decision-makin 1-year-old male with infected diabetic foot ulcer with failure of outpatient management. Patient will be admitted for the evaluation and management. Departure Diagnosis: Primary Impression: Foot ulcer, right Qualified Code: L97.514 - Foot ulcer, right, with necrosis of bone Condition: Serious MATHIEU MARTINS Apr 04, 2017 03:26
[2017-04-04] MEDS ORDERED: morphine 4 MG/ML VIAL IV STA (03:58)
[2017-04-04] MEDS ORDERED: ONDANSETRON 4 MG INJ IV STA (03:58)
[2017-04-04 04:12] LABS: BASOPHIL # 0.1 10^3/ul (0.0-0.1); BASOPHILS % 1.3 % (0.0-2.0); EOSINOPHILS # 0.2 10^3/ul (0.0-0.5); EOSINOPHILS % 2.7 % (0.0-7.0); HEMATOCRIT 39.9 % (42.0-52.0); HEMOGLOBIN 13.2 g/dl (14.0-18.0); LYMPHOCYTES # 2.4 10^3/ul (0.8-2.9); LYMPHOCYTES % 31.1 % (15.0-51.0); MEAN CORPUSCULAR HEMOGLOBIN 31.8 pg (29.0-33.0); MEAN CORPUSCULAR HGB CONC 33.1 g/dl (32.0-37.0); MEAN CORPUSCULAR VOLUME 96.1 fl (82.0-101.0); MEAN PLATELET VOLUME 10.9 fl (7.4-10.4); MONOCYTE # 0.7 10^3/ul (0.3-0.9); MONOCYTES % 8.5 % (0.0-11.0); PLATELET COUNT 337 10^3/UL (140-415); RED BLOOD COUNT 4.15 10^6/ul (4.70-6.10); RED CELL DISTRIBUTION WIDTH 13.2 % (11.5-14.5); WHITE BLOOD COUNT 7.7 10^3/ul (4.8-10.8)
[2017-04-04 04:20] LABS: INR 0.9; PROTIME 12.1 Sec (12.2-14.2); PT RATIO 0.9
[2017-04-04 04:21] LABS: PARTIAL THROMBOPLASTIN TIME 27.5 Sec (25.0-35.0)
[2017-04-04 04:23] LABS: ALBUMIN 3.8 g/dl (3.3-4.9); ALBUMIN/GLOBULIN RATIO 1.08; BILIRUBIN,INDIRECT 0.1 mg/dl (0-1.1); BILIRUBIN,TOTAL 0.1 mg/dl (0.2-1.3); CALCIUM 9.2 mg/dl (8.4-10.2); CREATININE 1.21 mg/dl (0.61-1.24); POTASSIUM 4.1 mmol/L (3.5-5.1); TOTAL PROTEIN 7.3 g/dl (6.1-8.1)
[2017-04-04] MEDS ORDERED: ONDANSETRON 4 MG INJ IV PRN (06:30)
[2017-04-04] MEDS ORDERED: VANCOMYCIN IV PER PHARMACY XX SCH (07:00)
--- NOTE | 2017-04-04 07:13 | HP ---
Date/Time of Note Date/Time of Note DATE: 04/04/17 TIME: 07:04 Assessment/Plan VTE Prophylaxis VTE Prophylaxis Intervention: heparin Assessment/Plan Assessment/Plan 1. Left foot osteomyelitis -Patient was discharged from here 2 weeks ago with home health for IV antibiotic. He is sent back to the ER because of a concern that patient is not responding to IV antibiotic. -He will be placed on IV Vanco and cefepime -will reconsult podiatry. Will leave the decision up to if further imaging is warranted -Pain management as needed 2. History of CVA -Continue antiplatelet and statin 3. Type II diabetes -Insulin while in house 4. Hypertension: Blood pressure not at goal -Adjust meds as needed 5. History of dyslipidemia -Continue home meds HPI/ROS Admit Date/Time Admit Date/Time Apr 04, 2017 at 03:40 Hx of Present Illness This is a 61-year-old male with a history of CVA, type 2 diabetes, hypertension , dyslipidemia and left foot osteomyelitis. Patient was admitted recently 2 weeks ago for the left great toe ulcer and was diagnosed with osteomyelitis. Patient was discharged with home health after placement of a PICC line. Patient is now sent to ER by home health nurse for evaluation of left great toe because they think that there is more inflammation and that the patient is probably not responding to IV antibiotics. Patient denied fever/chills, nausea/ vomiting, chest pain, shortness of breath. When patient presented to the ER her blood pressure was 155/74 with a heart rate of 88, otherwise rest of vitals are stable. Labs shows a hemoglobin of 13.2 otherwise CBC and CMP are within acceptable range. . PMH/Family/Social Past Medical History Medical History: diabetes, high cholesterol, hypertension, other (CV) Past Surgical History Past Surgical Hx: other Social History Alcohol Use: none Smoking Status: Former smoker Drug Use: none Exam/Review of Systems Vital Signs Vitals Vital Signs Date Time Temp Pulse Resp B/P Pulse Ox O2 Delivery O2 Flow Rate FiO2 04/04/17 04:54 85 20 139/76 95 Room Air 04/04/17 03:30 97.5 Exam Constitutional: alert, oriented, well developed Head: atraumatic, normocephalic Eyes: EOMI, PERRL Respiratory: clear to auscultation, normal air movement Cardiovascular: nl pulses, regular rate and rhythm Gastrointestinal: non-tender, soft Extremities: other (Right great toe ulcer which appears to be dry) Labs Result Diagram: 04/04/17 0306 04/04/17 0306 Medications Medications Current Medications Cefepime HCl (Maxipime 1gm/50 ml (Pmx)) 50 ml @ 100 mls/hr Q12 IVPB ; Start at 09:00; Status UNV Acetaminophen (Tylenol Tab) 650 mg Q6H PRN PO PAIN AND OR ELEVATED TEMP; Start 04/04/17 at 06:30; Status UNV Ondansetron HCl (Zofran Inj) 4 mg Q6H PRN IV NAUSEA AND/OR VOMITING; Start at 06:30; Status UNV Insulin Glargine (Lantus) 12 unit DAILY@08 SC ; Start 04/04/17 at 08:00; Status UNV Miscellaneous Information (* Miscellaneous Pharmacy Order) Discontinue current oral sulfonylur... ONCE ONCE XX ; Start 04/04/17 at 06:30; Stop 04/04/17 at 06: 31; Status UNV Diagnostic Test (Pha) (Accu-Chek) 1 ea XX ; Start 04/05/17 at 02:00; Status UNV Miscellaneous Information (* Miscellaneous Pharmacy Order) HYPOGLYCEMIA PROTOCOL w... ONCE ONCE XX ; Start 04/04/17 at 06:30; Stop 04/04/17 at 06:31; Status UNV Miscellaneous Information (* Miscellaneous Pharmacy Order) Discontinue all previ... ONCE ONCE XX ; Start 04/04/17 at 06:30; Stop 04/04/17 at 06:31; Status UNV MATHIEU HENRY MD Apr 04, 2017 07:13
[2017-04-04] MEDS ORDERED: GLUCOSE GEL 15 GRAM TUBE BUCCAL PRN (07:30)
[2017-04-04] MEDS ORDERED: PENDING SANTYL ORDER FOR WOUND CARE XX PRN (07:30)
[2017-04-04] MEDS ORDERED: COLLAGENASE 30 GM TUBE TOP PRN (07:30)
[2017-04-04] MEDS ORDERED: DEXTROSE 50% 50 ML SYRINGE IV PRN ×2 (07:30)
[2017-04-04] MEDS ORDERED: GLUCOSE GEL 15 GRAM TUBE PO PRN ×2 (07:30)
[2017-04-04] MEDS ORDERED: GLUCAGON 1 MG INJ IM PRN (07:30)
[2017-04-04] MEDS ORDERED: INSULIN GLARGINE [LANtus] 3 ML PEN SC SCH (08:00)
[2017-04-04] MEDS ORDERED: VANCOMYCIN 1.5 GM in SOD CHLORIDE 0.9% 250 ML IVPB ONE (08:00)
[2017-04-04] MEDS: AMLODIPINE 5 MG TAB PO SCH (08:52)
[2017-04-04] MEDS: LINAGLIPTIN 5 MG TABLET PO SCH (08:52)
[2017-04-04] MEDS: CEFEPIME 1GM/50 ML (PMX) 50 ML IVPB SCH ×2 (08:52→20:33)
[2017-04-04] MEDS: VALSARTAN 80 MG TAB PO SCH (08:53)
[2017-04-04] MEDS: ASPIRIN (EC) 81 MG TAB PO SCH (08:53)
[2017-04-04] MEDS: INSULIN ASPART [NOVOLOG] 3 ML PEN SC SCH ×4 (08:55→20:37)
[2017-04-04] MEDS: metFORMIN 500 MG TAB PO SCH ×2 (08:56→17:39)
[2017-04-04] MEDS: COLLAGENASE 30 GM TUBE TOP SCH (08:56)
--- NOTE | 2017-04-04 12:00 | QN ---
Documentation Comment Seeing patient at bedside. Wound examined and there is marked swelling with redness, warmth and tenderness on left big toe and now spreading to second toe along with necrotic wounds. Will consult podiatry and ID team. Continue IV antibiotics. Patient also stated that he wanted to have amputation of his toes. This was communicated to senior insight manager. Case discussed with BRANDON Bush NP Apr 04, 2017 12:00
[2017-04-04] MEDS: ACETAMINOPHEN 325 MG TAB PO PRN (14:48)
--- NOTE | 2017-04-04 15:18 | CONS ---
Date/Time of Note Date/Time of Note DATE: 04/04/17 TIME: 15:17 Consultation Date/Type/Reason Admit Date/Time Apr 04, 2017 at 03:40 Date of Consultation: Apr 04, 2017 Type of Consultation: ID Reason for Consultation Antibiotic management Past Medical History Medical History: diabetes, high cholesterol, hypertension, other (CV) Past Surgical History Past Surgical Hx: other Social History Alcohol Use: none Smoking Status: Former smoker Drug Use: none Exam/Review of Systems Vital Signs Vitals Vital Signs Date Time Temp Pulse Resp B/P Pulse Ox O2 Delivery O2 Flow Rate FiO2 04/04/17 12:02 97.7 87 18 169/78 97 04/04/17 06:30 Room Air Results Result Diagram: 04/04/17 0306 04/04/17 0306 Results 24 hrs Laboratory Tests Test 04/04/17 03:06 04/04/17 07:47 04/04/17 11:19 White Blood Count 7.7 Red Blood Count 4.15 L Hemoglobin 13.2 L Hematocrit 39.9 L Mean Corpuscular Volume 96.1 Mean Corpuscular Hemoglobin 31.8 Mean Corpuscular Hemoglobin Concent 33.1 Red Cell Distribution Width 13.2 Platelet Count 337 Mean Platelet Volume 10.9 H Neutrophils % 56.0 Lymphocytes % 31.1 Monocytes % 8.5 Eosinophils % 2.7 Basophils % 1.3 Nucleated Red Blood Cells % 0.0 Neutrophils # (Manual) 4.3 Lymphocytes # 2.4 Monocytes # 0.7 Eosinophils # 0.2 Basophils # 0.1 Nucleated Red Blood Cells # 0.0 Prothrombin Time 12.1 L Prothrombin Time Ratio 0.9 INR International Normalized Ratio 0.90 Activated Partial Thromboplast Time 27.5 Sodium Level 139 Potassium Level 4.1 Chloride Level 102 Carbon Dioxide Level 27 Anion Gap 14 Blood Urea Nitrogen 12 Creatinine 1.21 Glucose Level 219 Calcium Level 9.2 Total Bilirubin 0.1 L Direct Bilirubin 0.00 Indirect Bilirubin 0.1 Aspartate Amino Transf (AST/SGOT) 18 Alanine Aminotransferase (ALT/SGPT) 29 Alkaline Phosphatase 153 H Total Protein 7.3 Albumin 3.8 Globulin 3.50 H Albumin/Globulin Ratio 1.08 Lipase 212 Bedside Glucose 173 228 H Medications Medications Current Medications Cefepime HCl (Maxipime 1gm/50 ml (Pmx)) 50 ml @ 100 mls/hr Q12 IVPB Last administered on 04/04/17 08:52; Admin Dose 100 MLS/HR; Start 04/04/17 at 09:00 Acetaminophen (Tylenol Tab) 650 mg Q6H PRN PO PAIN AND OR ELEVATED TEMP Last administered on 04/04/17 14:48; Admin Dose 650 MG; Start 04/04/17 at 06:30 Ondansetron HCl (Zofran Inj) 4 mg Q6H PRN IV NAUSEA AND/OR VOMITING; Start at 06:30 Diagnostic Test (Pha) (Accu-Chek) 1 ea 02 XX ; Start 04/05/17 at 02:00 Miscellaneous Information 1 ea NOTE XX ; Start 04/04/17 at 07:30 Glucose (Glutose) 15 gm Q15M PRN PO DECREASED GLUCOSE; Start 04/04/17 at 07:30 Glucose (Glutose) 22.5 gm Q15M PRN PO DECREASED GLUCOSE; Start 04/04/17 at 07: 30 Dextrose (D50w Syringe) 25 ml Q15M PRN IV DECREASED GLUCOSE; Start 04/04/17 at 07:30 Dextrose (D50w Syringe) 50 ml Q15M PRN IV DECREASED GLUCOSE; Start 04/04/17 at 07:30 Glucagon (Glucagen) 1 mg Q15M PRN IM DECREASED GLUCOSE; Start 04/04/17 at 07:30 Glucose (Glutose) 15 gm Q15M PRN BUCCAL DECREASED GLUCOSE; Start 04/04/17 at 07 :30 Amlodipine Besylate (Norvasc) 5 mg DAILY PO Last administered on 04/04/17 08: 52; Admin Dose 5 MG; Start 04/04/17 at 09:00 Collagenase (Santyl) 1 applic DAILY TOP Last administered on 04/04/17 08:56; Admin Dose 1 APPLIC; Start 04/04/17 at 09:00 Insulin Glargine (Lantus) 45 unit HS SC ; Start 04/04/17 at 21:00 Linagliptin (Tradjenta) 5 mg DAILY PO Last administered on 04/04/17 08:52; Admin Dose 5 MG; Start 04/04/17 at 09:00 Valsartan (Diovan) 40 mg DAILY PO Last administered on 04/04/17 08:53; Admin Dose 40 MG; Start 04/04/17 at 09:00 Aspirin (Halfprin) 81 mg DAILY PO Last administered on 04/04/17t 08:53; Admin Dose 81 MG; Start 04/04/17 at 09:00 Atorvastatin Calcium (Lipitor) 20 mg HS PO ; Start 04/04/17 at 21:00 Collagenase 1 applic 1 applic DAILY PRN TOP WHEN SOILDED; Start 04/04/17 at 07: 30 Vancomycin HCl/ Sodium Chloride (Vancocin/NS) 250 ml @ 83.333 mls/ hr Q24H IVPB ; Start 04/05/17 at 08:00 SREEKANTH ROQUE MD Apr 04, 2017 15:18
[2017-04-04] MEDS: ATORVASTATIN 20 MG TAB PO SCH (20:33)
[2017-04-04] MEDS: INSULIN GLARGINE [LANtus] 3 ML PEN SC SCH (20:37)
[2017-04-05] MEDS: ACCU-CHEK XX SCH (01:12)
[2017-04-05] MEDS ORDERED: ACCU-CHEK XX SCH (02:00)
[2017-04-05 07:22] LABS: CALCIUM 9.1 mg/dl (8.4-10.2); CREATININE 1.15 mg/dl (0.61-1.24); POTASSIUM 3.9 mmol/L (3.5-5.1)
[2017-04-05] MEDS: VANCOMYCIN 1.5 GM in SOD CHLORIDE 0.9% 250 ML IVPB SCH (07:24)
[2017-04-05] MEDS: metFORMIN 500 MG TAB PO SCH ×2 (07:25→17:12)
[2017-04-05] MEDS: INSULIN ASPART [NOVOLOG] 3 ML PEN SC SCH ×7 (07:26→21:00)
[2017-04-05] MEDS: ACETAMINOPHEN 325 MG TAB PO PRN (07:32)
[2017-04-05 07:36] VITALS: BP 161/78; RESP 20
[2017-04-05] MEDS: CEFEPIME 1GM/50 ML (PMX) 50 ML IVPB SCH ×2 (08:20→21:04)
[2017-04-05] MEDS: LINAGLIPTIN 5 MG TABLET PO SCH (08:21)
[2017-04-05] MEDS: VALSARTAN 80 MG TAB PO SCH (08:21)
[2017-04-05] MEDS: ASPIRIN (EC) 81 MG TAB PO SCH (08:21)
[2017-04-05] MEDS: AMLODIPINE 5 MG TAB PO SCH (08:21)
[2017-04-05] MEDS: COLLAGENASE 30 GM TUBE TOP SCH (08:22)
--- NOTE | 2017-04-05 09:39 | PN ---
Date/Time of Note Date/Time of Note DATE: 04/05/17 TIME: 09:39 Assessment/Plan VTE Prophylaxis VTE Prophylaxis Intervention: heparin Lines/Catheters IV [facility] PICC Line Central line still needed: Yes Urinary Cath still in place: No Assessment/Plan Chief Complaint/Hosp Course 1. Left foot osteomyelitis with left great toe gangrene. Failed outpatient therapy On 6 weeks IV antibiotics. -Podiatric consultation has been requested and Dr. Vizcaino will see patient. -Continue current IV antibiotics. 2. Type 2 diabetes. With good glycemic control. Continue current regimen. 3. Essential hypertension. Continue current antihypertensives 4. Dyslipidemia. On statin 5. PAD. Continue aspirin 6. History of cerebrovascular accident. No present issues 7.Tiny 6.5 mm micronodule in the anteromedial right upper lobe -Follow-up CT in 6 months to one year recommended. 8. Recent GBS bacteremia and sepsis. Currently no evidence of sepsis. 9. Obesity. Weight reduction advised. DVT prophylaxis: Heparin subcutaneous Plan: Continue current medical management. Awaiting podiatry evaluation. Continue antibiotics. Case discussed with Problems: Subjective 24 Hr Interval Summary Free Text/Dictation No acute overnight episodes. Pending cardiology/vascular follow-up Exam/Review of Systems Vital Signs Vitals Vital Signs Date Time Temp Pulse Resp B/P Pulse Ox O2 Delivery O2 Flow Rate FiO2 04/05/17 07:36 97.9 78 20 161/78 94 04/04/17 12:05 Room Air Intake and Output 04/04/17 04/04/17 04/05/17 15:00 23:00 07:00 Intake Total 1200 ml 900 ml Balance 1200 ml 900 ml Exam General: Obese male in no acute distress. HEENT: Normocephalic, Atraumatic, No laceration or hematoma; Eyes: PEERL, Conjunctiva clear, Anicteric sclera Neck: Supple without any lymphadenopathy, nontender, no JVD, no carotid bruits, trachea midline, no thyromegaly Cardiac: S1, S2 auscultated, regular rhythm and rate, no mumurs or gallop Pulmonary: Normal respiratory effort. Chest clear to auscultation bilaterally, no adventitious breath sounds GI: Abdomen obese, soft, Non tender, non- distended, no masses, no rebound tenderness or guarding. Bowel sounds active on all four quadrants Genitourinary: Deferred Extremities: +Erythema /warmth/severe tenderness to the dorsum of the left foot Ulceration on left great toe. erythema and tenderness-now has spread to left second toe. Pulses [1+] bilaterally. Full ROM on all four extremities. No focal weakness appreciated. Neurologic: Alert to person, place, time, and situation. Affect appropriate, intact sensation. Skin: Clean,dry, and intact. No ecchymosis, no rashes, or lesions Results Result Diagram: 04/04/17 0306 04/05/17 0632 Results 24 hrs Laboratory Tests Test 04/04/17 11:19 04/04/17 17:27 04/04/17 20:18 04/05/17 06:32 Bedside Glucose 228 H 211 134 Sodium Level 139 Potassium Level 3.9 Chloride Level 103 Carbon Dioxide Level 27 Anion Gap 13 Blood Urea Nitrogen 16 Creatinine 1.15 Glucose Level 98 # Calcium Level 9.1 Test 04/05/17 07:10 Bedside Glucose 113 Medications Medications Current Medications Cefepime HCl (Maxipime 1gm/50 ml (Pmx)) 50 ml @ 100 mls/hr Q12 IVPB Last administered on 04/05/17 08:20; Admin Dose 100 MLS/HR; Start 04/04/17 at 09:00 Acetaminophen (Tylenol Tab) 650 mg Q6H PRN PO PAIN AND OR ELEVATED TEMP Last administered on 04/05/17 07:32; Admin Dose 650 MG; Start 04/04/17 at 06:30 Ondansetron HCl (Zofran Inj) 4 mg Q6H PRN IV NAUSEA AND/OR VOMITING; Start at 06:30 Diagnostic Test (Pha) (Accu-Chek) 1 ea 02 XX ; Start 04/05/17 at 02:00 Miscellaneous Information 1 ea NOTE XX ; Start 04/04/17 at 07:30 Glucose (Glutose) 15 gm Q15M PRN PO DECREASED GLUCOSE; Start 04/04/17 at 07:30 Glucose (Glutose) 22.5 gm Q15M PRN PO DECREASED GLUCOSE; Start 04/04/17 at 07: 30 Dextrose (D50w Syringe) 25 ml Q15M PRN IV DECREASED GLUCOSE; Start 04/04/17 at 07:30 Dextrose (D50w Syringe) 50 ml Q15M PRN IV DECREASED GLUCOSE; Start 04/04/17 at 07:30 Glucagon (Glucagen) 1 mg Q15M PRN IM DECREASED GLUCOSE; Start 04/04/17 at 07:30 Glucose (Glutose) 15 gm Q15M PRN BUCCAL DECREASED GLUCOSE; Start 04/04/17 at 07 :30 Amlodipine Besylate (Norvasc) 5 mg DAILY PO Last administered on 04/05/17 08: 21; Admin Dose 5 MG; Start 04/04/17 at 09:00 Collagenase (Santyl) 1 applic DAILY TOP Last administered on 04/05/17 08:22; Admin Dose 1 APPLIC; Start 04/04/17 at 09:00 Insulin Glargine (Lantus) 45 unit HS SC Last administered on 04/04/17 20:37; Admin Dose 45 UNIT; Start 04/04/17 at 21:00 Linagliptin (Tradjenta) 5 mg DAILY PO Last administered on 04/05/17 08:21; Admin Dose 5 MG; Start 04/04/17 at 09:00 Valsartan (Diovan) 40 mg DAILY PO Last administered on 04/05/17 08:21; Admin Dose 40 MG; Start 04/04/17 at 09:00 Aspirin (Halfprin) 81 mg DAILY PO Last administered on 04/05/17 08:21; Admin Dose 81 MG; Start 04/04/17 at 09:00 Atorvastatin Calcium (Lipitor) 20 mg HS PO Last administered on 04/04/17 20:33 ; Admin Dose 20 MG; Start 04/04/17 at 21:00 Collagenase 1 applic 1 applic DAILY PRN TOP WHEN SOILDED; Start 04/04/17 at 07: 30 Vancomycin HCl/ Sodium Chloride (Vancocin/NS) 250 ml @ 83.333 mls/ hr Q24H IVPB Last administered on 04/05/17 07:24; Admin Dose 83.333 MLS/HR; Start at 08:00 BRANDON HERRERA NP Apr 05, 2017 09:39
--- NOTE | 2017-04-05 09:58 | CONS ---
DATE OF ADMISSION: 04/04/2017 DATE OF CONSULTATION: 04/04/2017 REASON FOR CONSULTATION: Antibiotic management. HISTORY OF PRESENT ILLNESS: Gregory Guillen is a 61-year-old male with numerous problems who comes in with left foot osteomyelitis. His problems include: 1. Adult-onset diabetes mellitus. 2. History of CVA. 3. Hypertension. 4. Dyslipidemia. 5. Left foot osteomyelitis. The patient was admitted recently 2 weeks ago for left great toe ulcer, which was diagnosed as osteomyelitis. He was discharged with home health after placement of PICC line. He was brought back because his home health care nurse felt that there was more inflammation of the toe and not responding to antibiotic therapy. He denies fever, chills, nausea, vomiting or diarrhea. No chest pain or shortness of breath. His blood pressure was 155/74, heart rate of 88, but his other vital signs were normal. His white count was 7.7, H and H of 13.2 and 39.9, platelet count 337,000. BUN and creatinine 12/1.21, random glucose of 219. PAST MEDICAL HISTORY: Operations as outlined. FAMILY HISTORY: Noncontributory. SOCIAL HISTORY: He is a former smoker. He does not drink or abuse drugs. ALLERGIES: NONE TO PENICILLIN, SULFA OR FOODS. MEDICATION: Per chart. REVIEW OF SYSTEMS: As per HPI. PHYSICAL EXAMINATION: GENERAL: Patient is well-developed, well-nourished male, alert, responsive, in no acute distress. VITAL SIGNS: Stable. He is afebrile. SKIN: Without generalized rash. HEENT: Within normal limits. NECK: Supple. Lymph nodes nonpalpable. CHEST: Decreased breath sounds at the bases. HEART: Without murmur or gallop. ABDOMEN: Soft, nontender without organosplenomegaly or masses. EXTREMITIES: He has a right great toe ulcer which is dry. RECTAL: Deferred. GENITAL: Deferred. NEUROLOGIC: Decreased sensation in the distal extremities. His white count I noted was 7.7. There is no recent imaging. According to Dr. Mason, there is marked swelling with redness, warmth and tenderness in the left big toe now spreading to the 2nd toe along with necrotic wounds. Podiatry and ID team were consulted. Patient stated that he wanted to have amputation of his toes. The patient is on vancomycin and cefepime. We will await the opinions of Podiatry. Dictated By: Robert Gould MD JD/augusto/frank /Document#: [id number]
[2017-04-05 15:22] VITALS: BP 127/63; RESP 18
[2017-04-05] MEDS: morphine 2 MG INJ IV PRN (16:53)
[2017-04-05] MEDS ORDERED: morphine 10 MG INJ IM PRN (17:00)
[2017-04-05 19:51] VITALS: BP 148/73; RESP 18
--- NOTE | 2017-04-05 20:56 | PN ---
DATE: 04/05/2017 SUBJECTIVE: Patient is awake, eating lunch. Looks comfortable. Denies pain. No fevers. No CBC today. BUN 16, creatinine 1.15. Blood cultures negative. Nares swab pending. ANTIMICROBIALS: Vancomycin, cefepime. PHYSICAL EXAMINATION: GENERAL: Well-developed elderly man who is alert, in no distress. HEENT: Head atraumatic, normocephalic. Sclerae anicteric. Buccal mucosa pink. NECK: Supple. LUNGS: Chest rise symmetrical. Breath sounds diminished at the bases. Otherwise clear. HEART: S1, S2. ABDOMEN: Soft. Bowel sounds present. EXTREMITIES: Left foot great toe erythema and edema. ASSESSMENT: 1. Left great toe osteomyelitis as per magnetic resonance imaging done on 03/17. Patient was discharged home on intravenous Rocephin. 2. Status post streptococcal bacteremia on 03/15/2017. 3. Chronic obstructive pulmonary disease with a history of tobacco use. 4. Diabetes. PLAN: Continue present care. Continue on current antibiotics. Await for podiatry evaluation. Dictated By: Shana Oliva NP /augusto/frank /Document#: [id number]
[2017-04-05] MEDS: ATORVASTATIN 20 MG TAB PO SCH (21:04)
[2017-04-05] MEDS: HEPARIN 5,000 UNIT/0.5 ML VIAL SC SCH (21:08)
[2017-04-05] MEDS: INSULIN GLARGINE [LANtus] 3 ML PEN SC SCH (21:08)
[2017-04-06] MEDS: ACCU-CHEK XX SCH ×2 (01:12→21:10)
[2017-04-06 03:52] VITALS: BP 125/60; RESP 18
[2017-04-06] MEDS: metFORMIN 500 MG TAB PO SCH ×2 (07:41→17:35)
[2017-04-06 07:42] VITALS: BP 142/77; RESP 16
[2017-04-06] MEDS: morphine 2 MG INJ IV PRN ×3 (07:42→20:08)
[2017-04-06] MEDS: INSULIN ASPART [NOVOLOG] 3 ML PEN SC SCH ×7 (07:43→21:00)
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
[2017-04-06] MEDS: VANCOMYCIN 1.5 GM in SOD CHLORIDE 0.9% 250 ML IVPB SCH (07:48)
[2017-04-06] MEDS: VALSARTAN 80 MG TAB PO SCH (09:36)
[2017-04-06] MEDS: LINAGLIPTIN 5 MG TABLET PO SCH (09:36)
[2017-04-06] MEDS: ASPIRIN (EC) 81 MG TAB PO SCH (09:36)
[2017-04-06] MEDS: AMLODIPINE 5 MG TAB PO SCH (09:36)
[2017-04-06] MEDS: HEPARIN 5,000 UNIT/0.5 ML VIAL SC SCH ×2 (09:40→21:09)
[2017-04-06] MEDS: COLLAGENASE 30 GM TUBE TOP SCH (09:41)
[2017-04-06] MEDS: CEFEPIME 1GM/50 ML (PMX) 50 ML IVPB SCH ×2 (09:45→21:06)
--- NOTE | 2017-04-06 10:44 | PN ---
Date/Time of Note Date/Time of Note DATE: 04/06/17 TIME: 10:44 Assessment/Plan VTE Prophylaxis VTE Prophylaxis Intervention: heparin Lines/Catheters IV [facility]ter Type (from [facility]): PICC Line Central line still needed: Yes Urinary Cath still in place: No Assessment/Plan Chief Complaint/Hosp Course 1. Left foot osteomyelitis with left great toe gangrene. Failed outpatient therapy On 6 weeks IV antibiotics. -Appreciate evaluation by from vascular and podiatry standpoint. -Tentative plan for left lower extremity angiogram for tomorrow -Continue current IV antibiotics per ID [id number] cultures 2. Type 2 diabetes. With good glycemic control. Continue current regimen. 3. Essential hypertension. Continue current antihypertensives 4. Dyslipidemia. On statin 5. PAD. Continue aspirin 6. History of cerebrovascular accident. No present issues 7.Tiny 6.5 mm micronodule in the anteromedial right upper lobe -Follow-up CT in 6 months to one year recommended. 8. Recent GBS bacteremia and sepsis. Currently no evidence of sepsis. 9. Obesity. Weight reduction advised. DVT prophylaxis: Heparin subcutaneous Plan: Continue current medical management. Continue antibiotics. Plan is left lower extremity angiogram likely tomorrow. Case discussed with Problems: Subjective 24 Hr Interval Summary Free Text/Dictation No acute overnight episodes. Had foot evaluation by Dr. Vizcaino. Exam/Review of Systems Vital Signs Vitals Vital Signs Date Time Temp Pulse Resp B/P Pulse Ox O2 Delivery O2 Flow Rate FiO2 04/06/17 07:42 98.0 79 16 142/77 98 04/04/17 12:05 Room Air Intake and Output 04/05/17 04/05/17 04/06/17 15:00 23:00 07:00 Intake Total 350 ml 740 ml Balance 350 ml 740 ml Exam General: Obese male in no acute distress. HEENT: Normocephalic, Atraumatic, No laceration or hematoma; Eyes: PEERL, Conjunctiva clear, Anicteric sclera Neck: Supple without any lymphadenopathy, nontender, no JVD, no carotid bruits, trachea midline, no thyromegaly Cardiac: S1, S2 auscultated, regular rhythm and rate, no mumurs or gallop Pulmonary: Normal respiratory effort. Chest clear to auscultation bilaterally, no adventitious breath sounds GI: Abdomen obese, soft, Non tender, non- distended, no masses, no rebound tenderness or guarding. Bowel sounds active on all four quadrants Genitourinary: Deferred Extremities: +Erythema /warmth/severe tenderness to the dorsum of the left foot Ulceration on left great toe. erythema and tenderness-now has spread to left second toe. No pulsation appreciated on left DP.. Full ROM on all four extremities. No focal weakness appreciated. Neurologic: Alert to person, place, time, and situation. Affect appropriate, intact sensation. Skin: Clean,dry, and intact. No ecchymosis, no rashes, or lesions Results Result Diagram: 04/04/17 0306 04/05/17 0632 Results 24 hrs Laboratory Tests Test 04/05/17 12:21 04/05/17 17:14 04/05/17 21:03 04/06/17 07:24 Bedside Glucose 119 149 123 126 Medications Medications Current Medications Cefepime HCl (Maxipime 1gm/50 ml (Pmx)) 50 ml @ 100 mls/hr Q12 IVPB Last administered on 04/06/17 09:45; Admin Dose 100 MLS/HR; Start 04/04/17 at 09:00 Acetaminophen (Tylenol Tab) 650 mg Q6H PRN PO PAIN AND OR ELEVATED TEMP Last administered on 04/05/17 07:32; Admin Dose 650 MG; Start 04/04/17 at 06:30 Ondansetron HCl (Zofran Inj) 4 mg Q6H PRN IV NAUSEA AND/OR VOMITING; Start at 06:30 Diagnostic Test (Pha) (Accu-Chek) 1 ea 02 XX ; Start 04/05/17 at 02:00 Miscellaneous Information 1 ea NOTE XX ; Start 04/04/17 at 07:30 Glucose (Glutose) 15 gm Q15M PRN PO DECREASED GLUCOSE; Start 04/04/17 at 07:30 Glucose (Glutose) 22.5 gm Q15M PRN PO DECREASED GLUCOSE; Start 04/04/17 at 07: 30 Dextrose (D50w Syringe) 25 ml Q15M PRN IV DECREASED GLUCOSE; Start 04/04/17 at 07:30 Dextrose (D50w Syringe) 50 ml Q15M PRN IV DECREASED GLUCOSE; Start 04/04/17 at 07:30 Glucagon (Glucagen) 1 mg Q15M PRN IM DECREASED GLUCOSE; Start 04/04/17 at 07:30 Glucose (Glutose) 15 gm Q15M PRN BUCCAL DECREASED GLUCOSE; Start 04/04/17 at 07 :30 Amlodipine Besylate (Norvasc) 5 mg DAILY PO Last administered on 04/06/17 09: 36; Admin Dose 5 MG; Start 04/04/17 at 09:00 Collagenase (Santyl) 1 applic DAILY TOP Last administered on 04/06/17 09:41; Admin Dose 1 APPLIC; Start 04/04/17 at 09:00 Insulin Glargine (Lantus) 45 unit HS SC Last administered on 04/05/17 21:08; Admin Dose 45 UNIT; Start 04/04/17 at 21:00 Linagliptin (Tradjenta) 5 mg DAILY PO Last administered on 04/06/17 09:36; Admin Dose 5 MG; Start 04/04/17 at 09:00 Valsartan (Diovan) 40 mg DAILY PO Last administered on 04/06/17 09:36; Admin Dose 40 MG; Start 04/04/17 at 09:00 Aspirin (Halfprin) 81 mg DAILY PO Last administered on 04/06/17 09:36; Admin Dose 81 MG; Start 04/04/17 at 09:00 Atorvastatin Calcium (Lipitor) 20 mg HS PO Last administered on 04/05/17 21:04 ; Admin Dose 20 MG; Start 04/04/17 at 21:00 Collagenase 1 applic 1 applic DAILY PRN TOP WHEN SOILDED; Start 04/04/17 at 07: 30 Vancomycin HCl/ Sodium Chloride (Vancocin/NS) 250 ml @ 83.333 mls/ hr Q24H IVPB Last administered on 04/06/17 07:48; Admin Dose 83.333 MLS/HR; Start at 08:00 Heparin Sodium (Porcine) (Heparin (5000 Units/0.5 ml)) 5,000 unit BID SC Last administered on 04/06/17 09:40; Admin Dose 5,000 UNIT; Start 04/05/17 at 21:00 Morphine Sulfate (morphine) 2 mg Q4H PRN IV 7-10 PAIN Last administered on 04/06 07:42; Admin Dose 2 MG; Start 04/05/17 at 17:00 Miscellaneous Information (*Rx Drug Level Order Reminder*) VANCO TROUGH @ 0, 700 ON... ONCE ONCE XX ; Start 04/07/17 at 07:00; Stop 04/07/17 at 07:01 BRANDON HERRERA NP Apr 06, 2017 10:44
[2017-04-06] MEDS: BENZONATATE 100 MG CAP PO SCH ×2 (12:04→21:08)
[2017-04-06 14:10] VITALS: BP 122/80; RESP 18
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
--- NOTE | 2017-04-06 16:25 | CONS ---
Date/Time of Note Date/Time of Note DATE: 04/06/17 TIME: 16:19 Assessment/Plan Assessment/Plan Chief Complaint/Hosp Course SUBJECTIVE: Patient is awake. Looks comfortable. ANTIMICROBIALS: Vancomycin, cefepime. PHYSICAL EXAMINATION: GENERAL: Well-developed elderly man who is alert, in no distress. HEENT: Head atraumatic, normocephalic. Sclerae anicteric. Buccal mucosa pink. NECK: Supple. LUNGS: Chest rise symmetrical. Breath sounds diminished at the bases. Otherwise clear. HEART: S1, S2. ABDOMEN: Soft. Bowel sounds present. EXTREMITIES: Left foot great toe erythema and edema. ASSESSMENT: 1. Left great toe osteomyelitis as per magnetic resonance imaging done on 03/17. Patient was discharged home on intravenous Rocephin. 2. Status post streptococcal bacteremia on 03/15/2017. 3. Chronic obstructive pulmonary disease with a history of tobacco use. 4. Diabetes. 5. PVD PLAN: Remains stable. Continue present care. Continue on current antibiotics. Pending endovascular intervention DW staff Problems: Consultation Date/Type/Reason Admit Date/Time Apr 05, 2017 at 10:08 Initial Consult Date 04/04/17 Type of Consultation: ID Exam/Review of Systems Vital Signs Vitals Vital Signs Date Time Temp Pulse Resp B/P Pulse Ox O2 Delivery O2 Flow Rate FiO2 04/06/17 14:10 98.5 85 18 122/80 95 04/04/17 12:05 Room Air Intake and Output 04/05/17 04/05/17 04/06/17 15:00 23:00 07:00 Intake Total 350 ml 740 ml Balance 350 ml 740 ml Results Result Diagram: 04/04/17 0306 04/05/17 0632 Results 24 hrs Laboratory Tests Test 04/05/17 17:14 04/05/17 21:03 04/06/17 07:24 04/06/17 11:55 Bedside Glucose 149 123 126 147 Test 04/06/17 13:17 Bedside Glucose 141 Medications Medications Current Medications Cefepime HCl (Maxipime 1gm/50 ml (Pmx)) 50 ml @ 100 mls/hr Q12 IVPB Last administered on 04/06/17t 09:45; Admin Dose 100 MLS/HR; Start 04/04/17 at 09:00 Acetaminophen (Tylenol Tab) 650 mg Q6H PRN PO PAIN AND OR ELEVATED TEMP Last administered on 04/05/17 07:32; Admin Dose 650 MG; Start 04/04/17 at 06:30 Ondansetron HCl (Zofran Inj) 4 mg Q6H PRN IV NAUSEA AND/OR VOMITING; Start at 06:30 Diagnostic Test (Pha) (Accu-Chek) 1 ea 02 XX ; Start 04/05/17 at 02:00 Miscellaneous Information 1 ea NOTE XX ; Start 04/04/17 at 07:30 Glucose (Glutose) 15 gm Q15M PRN PO DECREASED GLUCOSE; Start 04/04/17 at 07:30 Glucose (Glutose) 22.5 gm Q15M PRN PO DECREASED GLUCOSE; Start 04/04/17 at 07: 30 Dextrose (D50w Syringe) 25 ml Q15M PRN IV DECREASED GLUCOSE; Start 04/04/17 at 07:30 Dextrose (D50w Syringe) 50 ml Q15M PRN IV DECREASED GLUCOSE; Start 04/04/17 at 07:30 Glucagon (Glucagen) 1 mg Q15M PRN IM DECREASED GLUCOSE; Start 04/04/17 at 07:30 Glucose (Glutose) 15 gm Q15M PRN BUCCAL DECREASED GLUCOSE; Start 04/04/17 at 07 :30 Amlodipine Besylate (Norvasc) 5 mg DAILY PO Last administered on 04/06/17 09: 36; Admin Dose 5 MG; Start 04/04/17 at 09:00 Collagenase (Santyl) 1 applic DAILY TOP Last administered on 04/06/17 09:41; Admin Dose 1 APPLIC; Start 04/04/17 at 09:00 Insulin Glargine (Lantus) 45 unit HS SC Last administered on 04/05/17 21:08; Admin Dose 45 UNIT; Start 04/04/17 at 21:00 Linagliptin (Tradjenta) 5 mg DAILY PO Last administered on 04/06/17 09:36; Admin Dose 5 MG; Start 04/04/17 at 09:00 Valsartan (Diovan) 40 mg DAILY PO Last administered on 04/06/17 09:36; Admin Dose 40 MG; Start 04/04/17 at 09:00 Aspirin (Halfprin) 81 mg DAILY PO Last administered on 04/06/17 09:36; Admin Dose 81 MG; Start 04/04/17 at 09:00 Atorvastatin Calcium (Lipitor) 20 mg HS PO Last administered on 04/05/17 21:04 ; Admin Dose 20 MG; Start 04/04/17 at 21:00 Collagenase 1 applic 1 applic DAILY PRN TOP WHEN SOILDED; Start 04/04/17 at 07: 30 Vancomycin HCl/ Sodium Chloride (Vancocin/NS) 250 ml @ 83.333 mls/ hr Q24H IVPB Last administered on 04/06/17 07:48; Admin Dose 83.333 MLS/HR; Start at 08:00 Heparin Sodium (Porcine) (Heparin (5000 Units/0.5 ml)) 5,000 unit BID SC Last administered on 04/06/17 09:40; Admin Dose 5,000 UNIT; Start 04/05/17 at 21:00 Morphine Sulfate (morphine) 2 mg Q4H PRN IV 7-10 PAIN Last administered on 04/06 12:07; Admin Dose 2 MG; Start 04/05/17 at 17:00 Miscellaneous Information (*Rx Drug Level Order Reminder*) VANCO TROUGH @ 0, 700 ON... ONCE ONCE XX ; Start 04/07/17 at 07:00; Stop 04/07/17 at 07:01 Benzonatate (Tessalon) 100 mg TID PO Last administered on 04/06/17 12:04; Admin Dose 100 MG; Start 04/06/17 at 13:00 TORO ARMIJO NP Apr 06, 2017 16:25
[2017-04-06 20:00] VITALS: BP 135/73; RESP 20
[2017-04-06] MEDS: ATORVASTATIN 20 MG TAB PO SCH (21:08)
[2017-04-06] MEDS: INSULIN GLARGINE [LANtus] 3 ML PEN SC SCH (21:10)
[2017-04-07 02:00] VITALS: BP 135/60; RESP 18
[2017-04-07] MEDS: morphine 2 MG INJ IV PRN ×4 (06:20→21:12)
[2017-04-07 07:48] LABS: BASOPHIL # 0.1 10^3/ul (0.0-0.1); EOSINOPHILS # 0.1 10^3/ul (0.0-0.5); EOSINOPHILS % 2.1 % (0.0-7.0); HEMATOCRIT 41.1 % (42.0-52.0); HEMOGLOBIN 13.5 g/dl (14.0-18.0); LYMPHOCYTES # 1.9 10^3/ul (0.8-2.9); LYMPHOCYTES % 30.2 % (15.0-51.0); MEAN CORPUSCULAR HEMOGLOBIN 31.1 pg (29.0-33.0); MEAN CORPUSCULAR HGB CONC 32.8 g/dl (32.0-37.0); MEAN CORPUSCULAR VOLUME 94.7 fl (82.0-101.0); MEAN PLATELET VOLUME 10.7 fl (7.4-10.4); MONOCYTE # 0.4 10^3/ul (0.3-0.9); MONOCYTES % 6.8 % (0.0-11.0); NEUTROPHILS % 59.4 % (39.0-77.0); PLATELET COUNT 280 10^3/UL (140-415); RED BLOOD COUNT 4.34 10^6/ul (4.70-6.10); RED CELL DISTRIBUTION WIDTH 13.2 % (11.5-14.5); WHITE BLOOD COUNT 6.3 10^3/ul (4.8-10.8)
[2017-04-07] MEDS: metFORMIN 500 MG TAB PO SCH ×2 (08:00→17:54)
[2017-04-07 08:10] LABS: CALCIUM 9.3 mg/dl (8.4-10.2); CREATININE 1.07 mg/dl (0.61-1.24); MAGNESIUM 1.9 mg/dl (1.7-2.5); POTASSIUM 4.4 mmol/L (3.5-5.1)
[2017-04-07] MEDS: CEFEPIME 1GM/50 ML (PMX) 50 ML IVPB SCH ×3 (08:53→21:10)
[2017-04-07] MEDS: BENZONATATE 100 MG CAP PO SCH ×3 (08:54→21:12)
[2017-04-07] MEDS: LINAGLIPTIN 5 MG TABLET PO SCH (08:54)
[2017-04-07] MEDS: INSULIN ASPART [NOVOLOG] 3 ML PEN SC SCH ×7 (08:59→21:00)
[2017-04-07] MEDS: HEPARIN 5,000 UNIT/0.5 ML VIAL SC SCH ×2 (09:00→21:14)
[2017-04-07] MEDS: ASPIRIN (EC) 81 MG TAB PO SCH (09:00)
[2017-04-07] MEDS: VALSARTAN 80 MG TAB PO SCH ×2 (09:01→21:10)
[2017-04-07] MEDS: AMLODIPINE 5 MG TAB PO SCH (09:01)
[2017-04-07] MEDS: COLLAGENASE 30 GM TUBE TOP SCH (09:05)
[2017-04-07] MEDS ORDERED: IODIXANOL LOCM 100 ML BTL ONE (09:07)
[2017-04-07] MEDS ORDERED: SOD CHLORIDE 0.9% 100 ML ONE (09:07)
[2017-04-07 10:08] VITALS: BP_SYST 123; BP_SYST 171; BP_DIAS 102; BP_DIAS 67; PULSE 82; RESP 20
[2017-04-07] MEDS: VANCOMYCIN 1.5 GM in SOD CHLORIDE 0.9% 250 ML IVPB SCH (10:51)
--- NOTE | 2017-04-07 14:10 | RADRPT ---
PROCEDURE: XR Chest. CLINICAL INDICATION: Shortness of breath. PICC line placement TECHNIQUE: A single portable view of the chest was obtained. COMPARISON: 03/21/2017 FINDINGS: A left PICC line is seen once again with the tip in the atrial caval junction in satisfactory positi on. The cardiomediastinal silhouette is within normal limits. The lungs and pleural spaces are vanna ar. The soft tissues and osseous structures are unremarkable. IMPRESSION: No acute cardiopulmonary disease. Satisfactory placement of a left PICC line. RPTAT: HPNM Physician Raeann Date Time Electronically viewed and signed by Physician Raeann on 04/07/2017 14:10 /
[2017-04-07] MEDS ORDERED: ALTEPLASE (CATHFLO) 2 MG INJ CATHETER ONE (15:00)
--- NOTE | 2017-04-07 15:30 | PN ---
Date/Time of Note Date/Time of Note DATE: 04/07/17 TIME: 15:25 Assessment/Plan VTE Prophylaxis VTE Prophylaxis Intervention: heparin Lines/Catheters IV C[facility]ter Type (from [facility]): PICC Line Central line still needed: Yes Urinary Cath still in place: No Assessment/Plan Problems: (1) Essential hypertension Status: Chronic Comment: Given his lower extremity edema not in favor of the usage of the amlodipine. I am getting decrease the dose of this and titrate up on his valsartan 10 (2) Hyperlipidemia Status: Chronic Comment: Continue statin therapy Qualifiers: Hyperlipidemia type: pure hypercholesterolemia Qualified Code: E78.00 - Pure hypercholesterolemia (3) Diabetes mellitus type 2 in obese Status: Chronic Comment: Adequate control on current medication regimen which she is tolerating. (4) Obesity (BMI 30.0-34.9) Status: Chronic Comment: Calorie restriction diet (5) Diabetic foot infection Status: Acute Comment: As per Dr. Vizcaino, the attempted angiography today was not successful. The port the use for his PICC line was not working and they did not try to use the other port. I have had a discussion with the hvac field service technician Jose his documentation supervisor Partha. Repeat study will be as per vascular (6) Peripheral edema Status: Acute Comment: Transition away from amlodipine to an A2 receptor spencer Subjective 24 Hr Interval Summary Free Text/Dictation Patient is concerned that he will need surgery to remove digits. He is very anxious regarding this. Constitutional: no complaints (No fevers chills or sweats) Respiratory: no complaints Cardiovascular: no complaints Gastrointestinal: no complaints Exam/Review of Systems Vital Signs Vitals Vital Signs Date Time Temp Pulse Resp B/P Pulse Ox O2 Delivery O2 Flow Rate FiO2 04/07/17 10:08 82 123/67 04/07/17 10:08 97.8 20 94 04/04/17 12:05 Room Air Intake and Output 04/06/17 04/06/17 04/07/17 15:00 23:00 07:00 Intake Total 770 ml 50 ml 350 ml Balance 770 ml 50 ml 350 ml Exam Constitutional: alert, oriented Respiratory: clear to auscultation, normal air movement Gastrointestinal: nl liver, spleen, non-tender, soft Extremities: other (Onychomycosis) Results Result Diagram: 04/07/17 0626 04/07/17 0652 Results 24 hrs Laboratory Tests Test 04/06/17 17:21 04/06/17 21:01 04/07/17 06:26 04/07/17 06:52 Bedside Glucose 141 122 White Blood Count 6.3 Red Blood Count 4.34 L Hemoglobin 13.5 L Hematocrit 41.1 L Mean Corpuscular Volume 94.7 Mean Corpuscular Hemoglobin 31.1 Mean Corpuscular Hemoglobin Concent 32.8 Red Cell Distribution Width 13.2 Platelet Count 280 Mean Platelet Volume 10.7 H Neutrophils % 59.4 Lymphocytes % 30.2 Monocytes % 6.8 Eosinophils % 2.1 Basophils % 1.0 Nucleated Red Blood Cells % 0.0 Neutrophils # (Manual) 4 Lymphocytes # 1.9 Monocytes # 0.4 Eosinophils # 0.1 Basophils # 0.1 Nucleated Red Blood Cells # 0.0 Vancomycin Level Trough 13.2 Sodium Level 141 Potassium Level 4.4 Chloride Level 102 Carbon Dioxide Level 25 Anion Gap 18 H Blood Urea Nitrogen 22 H Creatinine 1.07 Glucose Level 156 Calcium Level 9.3 Magnesium Level 1.9 Test 04/07/17 08:14 04/07/17 12:05 Bedside Glucose 152 193 Medications Medications Current Medications Cefepime HCl (Maxipime 1gm/50 ml (Pmx)) 50 ml @ 100 mls/hr Q12 IVPB Last administered on 04/07/17 10:03; Admin Dose 100 MLS/HR; Start 04/04/17 at 09:00 Acetaminophen (Tylenol Tab) 650 mg Q6H PRN PO PAIN AND OR ELEVATED TEMP Last administered on 04/05/17 07:32; Admin Dose 650 MG; Start 04/04/17 at 06:30 Ondansetron HCl (Zofran Inj) 4 mg Q6H PRN IV NAUSEA AND/OR VOMITING; Start at 06:30 Diagnostic Test (Pha) (Accu-Chek) 1 ea 02 XX ; Start 04/05/17 at 02:00 Miscellaneous Information 1 ea NOTE XX ; Start 04/04/17 at 07:30 Glucose (Glutose) 15 gm Q15M PRN PO DECREASED GLUCOSE; Start 04/04/17 at 07:30 Glucose (Glutose) 22.5 gm Q15M PRN PO DECREASED GLUCOSE; Start 04/04/17 at 07: 30 Dextrose (D50w Syringe) 25 ml Q15M PRN IV DECREASED GLUCOSE; Start 04/04/17 at 07:30 Dextrose (D50w Syringe) 50 ml Q15M PRN IV DECREASED GLUCOSE; Start 04/04/17 at 07:30 Glucagon (Glucagen) 1 mg Q15M PRN IM DECREASED GLUCOSE; Start 04/04/17 at 07:30 Glucose (Glutose) 15 gm Q15M PRN BUCCAL DECREASED GLUCOSE; Start 04/04/17 at 07 :30 Amlodipine Besylate (Norvasc) 5 mg DAILY PO Last administered on 04/07/17 09: 01; Admin Dose 5 MG; Start 04/04/17 at 09:00 Collagenase (Santyl) 1 applic DAILY TOP Last administered on 04/07/17 09:05; Admin Dose 1 APPLIC; Start 04/04/17 at 09:00 Insulin Glargine (Lantus) 45 unit HS SC Last administered on 04/06/17 21:10; Admin Dose 45 UNIT; Start 04/04/17 at 21:00 Linagliptin (Tradjenta) 5 mg DAILY PO Last administered on 04/07/17 08:54; Admin Dose 5 MG; Start 04/04/17 at 09:00 Valsartan (Diovan) 40 mg DAILY PO Last administered on 04/07/17 09:01; Admin Dose 40 MG; Start 04/04/17 at 09:00 Aspirin (Halfprin) 81 mg DAILY PO Last administered on 04/06/17 09:36; Admin Dose 81 MG; Start 04/04/17 at 09:00 Atorvastatin Calcium (Lipitor) 20 mg HS PO Last administered on 04/06/17 21:08 ; Admin Dose 20 MG; Start 04/04/17 at 21:00 Collagenase (Santyl) 1 applic DAILY PRN TOP WHEN SOILDED; Start 04/04/17 at 07: 30 Heparin Sodium (Porcine) (Heparin (5000 Units/0.5 ml)) 5,000 unit BID SC Last administered on 04/06/17 21:09; Admin Dose 5,000 UNIT; Start 04/05/17 at 21:00 Morphine Sulfate (morphine) 2 mg Q4H PRN IV 7-10 PAIN Last administered on 04/07 14:59; Admin Dose 2 MG; Start 04/05/17 at 17:00 Benzonatate 100 mg 100 mg TID PO Last administered on 04/07/17t 12:12; Admin Dose 100 MG; Start 04/06/17 at 13:00 Vancomycin HCl/ Sodium Chloride (Vancocin/NS) 500 ml @ 125 mls/hr Q24H IVPB ; Start 04/08/17 at 08:00 SANAZ DAVIS MD Apr 07, 2017 15:30
--- NOTE | 2017-04-07 15:53 | RADRPT ---
AMENDMENT: 04/07/2017 3:55:42 PM Ben Rojas M.D CLINICAL INDICATION: Peripheral arterial disease. Gangrene. PROCEDURE: CT angiography of the abdomen and pelvis with lower extremity runoff. CLINICAL INDICATION: Bilateral leg pain and claudication. TECHNIQUE: CT angiography of the abdomen and pelvis with lower extremity runoff with contrast was performed on a multidetector high-resolution CT scanner. The patient was scanned after the uneventf ul intravenous administration of 110 cc of Visipaque 320. 3D/multiplanar reformations were performed by the technologist and an independent workstation. Coronal and sagittal reformatted images were ob tained from the axial source images. Images were reviewed on a high-resolution PACS workstation. The total exam CTDI equals 211.26, 7.98 mGy and the total exam DLP equals 1103.81 mGy-cm. Per the techn ologist, it took a considerable amount of time for the CT to trigger scan activation and that there was resistance with the PICC access. One or more of the following dose reduction techniques were used: - Automated exposure control. - Adjustment of the mA and/or kV according to patient size. - Use of iterative reconstruction technique. COMPARISON: None available. VASCULAR FINDINGS: The examination is nondiagnostic for evaluation of hemodynamically significant stenosis of the abdom en, pelvis, and lower extremities due to contrast bolus timing, which is largely in the delayed phas e and not the arterial phase. There are atherosclerotic changes of the aorta, its branch vessels, an d within the lower extremities bilaterally. The aorta is nonaneurysmal. NONVASCULAR FINDINGS: Visualized lower thorax: The visualized lung bases are clear. Hepatobiliary system and spleen: The visualized liver is normal in density with no focal hepatic le carleen identified. There is no intra or extrahepatic biliary ductal dilatation. The gallbladder is unr emarkable. The visualized spleen is unremarkable. The pancreas is unremarkable. Genitourinary system and adrenal glands: There are no renal masses, hydronephrosis, or filling defe cts within the renal collecting systems or opacified portions of the ureters. The urinary bladder is unremarkable. The prostate gland is enlarged measuring 4.8 cm in diameter. The seminal vesicles ar e unremarkable. The uterus and adnexa are unremarkable. The adrenal glands are unremarkable. Gastrointestinal system: The visualized stomach and small bowel are unremarkable. There is no bowel wall thickening or evidence of obstruction. The appendix is in the right lower quadrant, and is unr emarkable. Peritoneum and lymphatics: There is no free intraperitoneal air or free fluid. There is no mesenter ic or retroperitoneal adenopathy. There are small bilateral fat containing inguinal hernias. Musculoskeletal system: There are no concerning osseous lesions. There are bilateral pars defects a t L5 with associated grade 1 anterolisthesis of L5 on S1. IMPRESSION: 1. Nondiagnostic evaluation for the presence of hemodynamically significant stenosis involving the abdomen, pelvis, and bilateral lower extremities due to contrast bolus timing. Evaluation of the pat ient's venous access is recommended due to the technologist reporting resistance of the PICC, and page bsequently possibly a follow-up CT angiography. Atherosclerotic disease. 2. Enlarged prostate gland. Correlate with PSA. 3. Small bilateral fat containing inguinal hernias. 4. Bilateral pars defects at L5 with associated grade 1 anterolisthesis of L5 on S1. RPTAT: HLBP .Ben Rojas MD, MD Date Time Electronically viewed and signed by .Ben Rojas MD, on 04/07/2017 15:55 .P/
--- NOTE | 2017-04-07 16:27 | CONS ---
Date/Time of Note Date/Time of Note DATE: 04/07/17 TIME: 16:25 Assessment/Plan Assessment/Plan Chief Complaint/Hosp Course SUBJECTIVE: Patient is awake. Looks comfortable. ANTIMICROBIALS: Vancomycin, cefepime. PHYSICAL EXAMINATION: GENERAL: Well-developed elderly man who is alert, in no distress. HEENT: Head atraumatic, normocephalic. Sclerae anicteric. Buccal mucosa pink. NECK: Supple. LUNGS: Chest rise symmetrical. Breath sounds diminished at the bases. Otherwise clear. HEART: S1, S2. ABDOMEN: Soft. Bowel sounds present. EXTREMITIES: Left foot great toe erythema and edema. ASSESSMENT: 1. Left great toe osteomyelitis as per magnetic resonance imaging done on 03/17. 2. Status post streptococcal bacteremia on 03/15/2017. 3. Chronic obstructive pulmonary disease with a history of tobacco use. 4. Diabetes. 5. PVD PLAN: Remains stable. Continue present care. Continue on current antibiotics. Pending endovascular intervention DW staff Problems: Consultation Date/Type/Reason Admit Date/Time Apr 05, 2017 at 10:08 Initial Consult Date 04/04/17 Type of Consultation: ID Exam/Review of Systems Vital Signs Vitals Vital Signs Date Time Temp Pulse Resp B/P Pulse Ox O2 Delivery O2 Flow Rate FiO2 04/07/17 10:08 82 123/67 04/07/17 10:08 97.8 20 94 04/04/17 12:05 Room Air Intake and Output 04/06/17 04/06/17 04/07/17 15:00 23:00 07:00 Intake Total 770 ml 50 ml 350 ml Balance 770 ml 50 ml 350 ml Results Result Diagram: 04/07/17 0626 04/07/17 0652 Results 24 hrs Laboratory Tests Test 04/06/17 17:21 04/06/17 21:01 04/07/17 06:26 04/07/17 06:52 Bedside Glucose 141 122 White Blood Count 6.3 Red Blood Count 4.34 L Hemoglobin 13.5 L Hematocrit 41.1 L Mean Corpuscular Volume 94.7 Mean Corpuscular Hemoglobin 31.1 Mean Corpuscular Hemoglobin Concent 32.8 Red Cell Distribution Width 13.2 Platelet Count 280 Mean Platelet Volume 10.7 H Neutrophils % 59.4 Lymphocytes % 30.2 Monocytes % 6.8 Eosinophils % 2.1 Basophils % 1.0 Nucleated Red Blood Cells % 0.0 Neutrophils # (Manual) 4 Lymphocytes # 1.9 Monocytes # 0.4 Eosinophils # 0.1 Basophils # 0.1 Nucleated Red Blood Cells # 0.0 Vancomycin Level Trough 13.2 Sodium Level 141 Potassium Level 4.4 Chloride Level 102 Carbon Dioxide Level 25 Anion Gap 18 H Blood Urea Nitrogen 22 H Creatinine 1.07 Glucose Level 156 Calcium Level 9.3 Magnesium Level 1.9 Test 04/07/17 08:14 04/07/17 12:05 Bedside Glucose 152 193 Medications Medications Current Medications Cefepime HCl (Maxipime 1gm/50 ml (Pmx)) 50 ml @ 100 mls/hr Q12 IVPB Last administered on 04/07/17 10:03; Admin Dose 100 MLS/HR; Start 04/04/17 at 09:00 Acetaminophen (Tylenol Tab) 650 mg Q6H PRN PO PAIN AND OR ELEVATED TEMP Last administered on 04/05/17 07:32; Admin Dose 650 MG; Start 04/04/17 at 06:30 Ondansetron HCl (Zofran Inj) 4 mg Q6H PRN IV NAUSEA AND/OR VOMITING; Start at 06:30 Diagnostic Test (Pha) (Accu-Chek) 1 ea 02 XX ; Start 04/05/17 at 02:00 Miscellaneous Information 1 ea NOTE XX ; Start 04/04/17 at 07:30 Glucose (Glutose) 15 gm Q15M PRN PO DECREASED GLUCOSE; Start 04/04/17 at 07:30 Glucose (Glutose) 22.5 gm Q15M PRN PO DECREASED GLUCOSE; Start 04/04/17 at 07: 30 Dextrose (D50w Syringe) 25 ml Q15M PRN IV DECREASED GLUCOSE; Start 04/04/17 at 07:30 Dextrose (D50w Syringe) 50 ml Q15M PRN IV DECREASED GLUCOSE; Start 04/04/17 at 07:30 Glucagon (Glucagen) 1 mg Q15M PRN IM DECREASED GLUCOSE; Start 04/04/17 at 07:30 Glucose (Glutose) 15 gm Q15M PRN BUCCAL DECREASED GLUCOSE; Start 04/04/17 at 07 :30 Collagenase (Santyl) 1 applic DAILY TOP Last administered on 04/07/17 09:05; Admin Dose 1 APPLIC; Start 04/04/17 at 09:00 Insulin Glargine (Lantus) 45 unit HS SC Last administered on 04/06/17 21:10; Admin Dose 45 UNIT; Start 04/04/17 at 21:00 Linagliptin (Tradjenta) 5 mg DAILY PO Last administered on 04/07/17 08:54; Admin Dose 5 MG; Start 04/04/17 at 09:00 Aspirin (Halfprin) 81 mg DAILY PO Last administered on 04/06/17 09:36; Admin Dose 81 MG; Start 04/04/17 at 09:00 Atorvastatin Calcium (Lipitor) 20 mg HS PO Last administered on 04/06/17 21:08 ; Admin Dose 20 MG; Start 04/04/17 at 21:00 Collagenase (Santyl) 1 applic DAILY PRN TOP WHEN SOILDED; Start 04/04/17 at 07: 30 Heparin Sodium (Porcine) (Heparin (5000 Units/0.5 ml)) 5,000 unit BID SC Last administered on 04/06/17 21:09; Admin Dose 5,000 UNIT; Start 04/05/17 at 21:00 Morphine Sulfate (morphine) 2 mg Q4H PRN IV 7-10 PAIN Last administered on 04/07 14:59; Admin Dose 2 MG; Start 04/05/17 at 17:00 Benzonatate 100 mg 100 mg TID PO Last administered on 04/07/17 12:12; Admin Dose 100 MG; Start 04/06/17 at 13:00 Vancomycin HCl/ Sodium Chloride (Vancocin/NS) 500 ml @ 125 mls/hr Q24H IVPB ; Start 04/08/17 at 08:00 Amlodipine Besylate (Norvasc) 2.5 mg DAILY PO ; Start 04/08/17 at 09:00 Valsartan (Diovan) 40 mg BID PO ; Start 04/07/17 at 21:00 Terbinafine HCl (Lamisil) 250 mg BID PO ; Start 04/07/17 at 21:00; Stop at 20:59 Acetylcysteine (Nac) 1,200 mg BID PO ; Start 04/07/17 at 21:00; Stop 04/11/17 at 20:59 TORO ARMIJO NP Apr 07, 2017 16:27
[2017-04-07 17:08] VITALS: BP 149/70; RESP 20
[2017-04-07 19:33] VITALS: BP 131/63; RESP 16
[2017-04-07] MEDS: ACCU-CHEK XX SCH (21:09)
[2017-04-07] MEDS: ATORVASTATIN 20 MG TAB PO SCH (21:11)
[2017-04-07] MEDS: TERBINAFINE 250 MG TAB PO SCH (21:11)
[2017-04-07] MEDS: ACETYLCYSTEINE 600 MG CAP PO SCH (21:12)
[2017-04-07] MEDS: INSULIN GLARGINE [LANtus] 3 ML PEN SC SCH (21:15)
[2017-04-08 02:06] VITALS: BP 132/63; RESP 16
[2017-04-08] MEDS: morphine 2 MG INJ IV PRN ×4 (05:59→19:33)
[2017-04-08 07:59] VITALS: BP 136/69; RESP 18
[2017-04-08] MEDS: metFORMIN 500 MG TAB PO SCH ×2 (08:00→17:08)
[2017-04-08] MEDS: INSULIN ASPART [NOVOLOG] 3 ML PEN SC SCH ×7 (08:00→20:41)
[2017-04-08] MEDS: CEFEPIME 1GM/50 ML (PMX) 50 ML IVPB SCH ×2 (08:57→20:43)
[2017-04-08] MEDS: VANCOMYCIN 1.75 GM in NS 500 ML IVPB SCH (08:58)
[2017-04-08] MEDS: HEPARIN 5,000 UNIT/0.5 ML VIAL SC SCH ×2 (09:00→20:38)
[2017-04-08] MEDS: VALSARTAN 80 MG TAB PO SCH ×2 (09:02→20:44)
[2017-04-08] MEDS: ASPIRIN (EC) 81 MG TAB PO SCH (09:03)
[2017-04-08] MEDS: AMLODIPINE 2.5 MG TAB PO SCH (09:03)
[2017-04-08] MEDS: BENZONATATE 100 MG CAP PO SCH ×3 (09:03→20:45)
[2017-04-08] MEDS: TERBINAFINE 250 MG TAB PO SCH ×2 (09:03→20:45)
[2017-04-08] MEDS: LINAGLIPTIN 5 MG TABLET PO SCH (09:03)
[2017-04-08] MEDS: ACETYLCYSTEINE 600 MG CAP PO SCH ×2 (09:07→20:45)
[2017-04-08] MEDS: COLLAGENASE 30 GM TUBE TOP SCH (09:08)
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
--- NOTE | 2017-04-08 11:54 | PN ---
Date/Time of Note Date/Time of Note DATE: 04/08/17 TIME: 11:51 Assessment/Plan VTE Prophylaxis VTE Prophylaxis Intervention: heparin Lines/Catheters IV [facility] ([facility]): PICC Line Central line still needed: Yes Urinary Cath still in place: No Assessment/Plan Problems: (1) Wheezing Status: Chronic Comment: He reports this with a 4 year history of cough and a prior history of smoking. He is never had pulmonary evaluation. I will order simple bedside spirometry and he will start on Advair tomorrow which should give respiratory enough time to get the test done. I suspect he has an undiagnosed case of chronic obstructive pulmonary disease which we can have an impact on here (2) Obesity (BMI 30.0-34.9) Status: Chronic Comment: Calorie restriction diet (3) Diabetes mellitus type 2 in obese Status: Chronic Comment: He has adequate control on his current medication regimen. Please note when he has his angiogram the metformin will have to be held for 2 days. (4) Hyperlipidemia Status: Chronic Comment: He is on statin therapy will bring this up to standard dosing as per the [employer] cardiology recommendations in patients with risk factors 40 mg a day Qualifiers: Hyperlipidemia type: pure hypercholesterolemia Qualified Code: E78.00 - Pure hypercholesterolemia (5) Essential hypertension Status: Chronic Comment: Adequate control with the changes in medication. (6) Diabetic foot infection Status: Acute Comment: He is on antibiotics and is scheduled for vascular evaluation tomorrow. In addition of the hydration will be giving him Mucomyst to help protect his kidney function. Awaiting the careful and thoughtful guidance of vascular to help us out Subjective 24 Hr Interval Summary Free Text/Dictation Patient remains concerned about the possibility of losing on extremity. After careful evaluation he does inform me that he has had some other issues see below Constitutional: no complaints (No fevers chills or sweats) Respiratory: cough (4 years of cough in the setting of previously having smoked. Not positive for a.m. awakening.) Cardiovascular: no complaints Gastrointestinal: no complaints Genitourinary: no complaints Exam/Review of Systems Vital Signs Vitals Vital Signs Date Time Temp Pulse Resp B/P Pulse Ox O2 Delivery O2 Flow Rate FiO2 04/08/17 07:59 98.2 75 18 136/69 94 04/04/17 12:05 Room Air Intake and Output 04/07/17 04/07/17 04/08/17 15:00 23:00 07:00 Intake Total 50 ml 300 ml 350 ml Balance 50 ml 300 ml 350 ml Exam Constitutional: alert, oriented Respiratory: clear to auscultation, wheezing Cardiovascular: nl pulses, regular rate and rhythm Gastrointestinal: nl liver, spleen, non-tender, soft Extremities: other (No change) Results Result Diagram: 04/07/17 0626 04/07/17 0652 Results 24 hrs Laboratory Tests Test 04/07/17 12:05 04/07/17 17:33 04/07/17 21:08 04/08/17 08:55 Bedside Glucose 193 141 175 118 Medications Medications Current Medications Cefepime HCl (Maxipime 1gm/50 ml (Pmx)) 50 ml @ 100 mls/hr Q12 IVPB Last administered on 04/08/17 08:57; Admin Dose 100 MLS/HR; Start 04/04/17 at 09:00 Acetaminophen (Tylenol Tab) 650 mg Q6H PRN PO PAIN AND OR ELEVATED TEMP Last administered on 04/05/17 07:32; Admin Dose 650 MG; Start 04/04/17 at 06:30 Ondansetron HCl (Zofran Inj) 4 mg Q6H PRN IV NAUSEA AND/OR VOMITING; Start at 06:30 Diagnostic Test (Pha) (Accu-Chek) 1 ea 02 XX ; Start 04/05/17 at 02:00 Miscellaneous Information 1 ea NOTE XX ; Start 04/04/17 at 07:30 Glucose (Glutose) 15 gm Q15M PRN PO DECREASED GLUCOSE; Start 04/04/17 at 07:30 Glucose (Glutose) 22.5 gm Q15M PRN PO DECREASED GLUCOSE; Start 04/04/17 at 07: 30 Dextrose (D50w Syringe) 25 ml Q15M PRN IV DECREASED GLUCOSE; Start 04/04/17 at 07:30 Dextrose (D50w Syringe) 50 ml Q15M PRN IV DECREASED GLUCOSE; Start 04/04/17 at 07:30 Glucagon (Glucagen) 1 mg Q15M PRN IM DECREASED GLUCOSE; Start 04/04/17 at 07:30 Glucose (Glutose) 15 gm Q15M PRN BUCCAL DECREASED GLUCOSE; Start 04/04/17 at 07 :30 Collagenase (Santyl) 1 applic DAILY TOP Last administered on 04/08/17 09:08; Admin Dose 1 APPLIC; Start 04/04/17 at 09:00 Insulin Glargine (Lantus) 45 unit HS SC Last administered on 04/07/17 21:15; Admin Dose 45 UNIT; Start 04/04/17 at 21:00 Linagliptin (Tradjenta) 5 mg DAILY PO Last administered on 04/08/17 09:03; Admin Dose 5 MG; Start 04/04/17 at 09:00 Aspirin (Halfprin) 81 mg DAILY PO Last administered on 04/08/17 09:03; Admin Dose 81 MG; Start 04/04/17 at 09:00 Atorvastatin Calcium (Lipitor) 20 mg HS PO Last administered on 04/07/17 21:11 ; Admin Dose 20 MG; Start 04/04/17 at 21:00 Collagenase (Santyl) 1 applic DAILY PRN TOP WHEN SOILDED; Start 04/04/17 at 07: 30 Heparin Sodium (Porcine) (Heparin (5000 Units/0.5 ml)) 5,000 unit BID SC Last administered on 04/07/17 21:14; Admin Dose 5,000 UNIT; Start 04/05/17 at 21:00 Morphine Sulfate (morphine) 2 mg Q4H PRN IV 7-10 PAIN Last administered on 04/08 10:12; Admin Dose 2 MG; Start 04/05/17 at 17:00 Benzonatate 100 mg 100 mg TID PO Last administered on 04/08/17 09:03; Admin Dose 100 MG; Start 04/06/17 at 13:00 Vancomycin HCl/ Sodium Chloride (Vancocin/NS) 500 ml @ 125 mls/hr Q24H IVPB Last administered on 04/08/17 08:58; Admin Dose 125 MLS/HR; Start 04/08/17 at 08:00 Amlodipine Besylate (Norvasc) 2.5 mg DAILY PO Last administered on 04/08/17 09 :03; Admin Dose 2.5 MG; Start 04/08/17 at 09:00 Valsartan (Diovan) 40 mg BID PO Last administered on 04/08/17 09:02; Admin Dose 40 MG; Start 04/07/17 at 21:00 Terbinafine HCl (Lamisil) 250 mg BID PO Last administered on 04/08/17 09:03; Admin Dose 250 MG; Start 04/07/17 at 21:00; Stop 04/14/17 at 20:59 Acetylcysteine (Nac) 1,200 mg BID PO Last administered on 04/08/17 09:07; Admin Dose 1,200 MG; Start 04/07/17 at 21:00; Stop 04/11/17 at 20:59 SANAZ DAVIS MD Apr 08, 2017 11:53
--- NOTE | 2017-04-08 14:04 | CONS ---
Date/Time of Note Date/Time of Note DATE: 04/08/17 TIME: 14:03 Assessment/Plan Assessment/Plan Chief Complaint/Hosp Course SUBJECTIVE: Patient is awake. Looks comfortable.No pain, no fevers ANTIMICROBIALS: Vancomycin, cefepime. PHYSICAL EXAMINATION: GENERAL: Well-developed elderly man who is alert, in no distress. HEENT: Head atraumatic, normocephalic. Sclerae anicteric. Buccal mucosa pink. NECK: Supple. LUNGS: Chest rise symmetrical. Breath sounds diminished at the bases. Otherwise clear. HEART: S1, S2. ABDOMEN: Soft. Bowel sounds present. EXTREMITIES: Left foot great toe erythema and edema. ASSESSMENT: 1. Left great toe osteomyelitis as per magnetic resonance imaging done on 03/17. 2. Status post streptococcal bacteremia on 03/15/2017. 3. Chronic obstructive pulmonary disease with a history of tobacco use. 4. Diabetes. 5. PVD PLAN: Remains stable. Continue present care. Continue on current antibiotics. Pending endovascular intervention DW staff Problems: Consultation Date/Type/Reason Admit Date/Time Apr 05, 2017 at 10:08 Initial Consult Date 04/04/17 Type of Consultation: ID Exam/Review of Systems Vital Signs Vitals Vital Signs Date Time Temp Pulse Resp B/P Pulse Ox O2 Delivery O2 Flow Rate FiO2 04/08/17 07:59 98.2 75 18 136/69 94 04/04/17 12:05 Room Air Intake and Output 04/07/17 04/07/17 04/08/17 15:00 23:00 07:00 Intake Total 50 ml 300 ml 350 ml Balance 50 ml 300 ml 350 ml Results Result Diagram: 04/07/17 0626 04/07/17 0652 Results 24 hrs Laboratory Tests Test 04/07/17 17:33 04/07/17 21:08 04/08/17 08:55 04/08/17 12:12 Bedside Glucose 141 175 118 109 Medications Medications Current Medications Cefepime HCl (Maxipime 1gm/50 ml (Pmx)) 50 ml @ 100 mls/hr Q12 IVPB Last administered on 04/08/17 08:57; Admin Dose 100 MLS/HR; Start 04/04/17 at 09:00 Acetaminophen (Tylenol Tab) 650 mg Q6H PRN PO PAIN AND OR ELEVATED TEMP Last administered on 04/05/17 07:32; Admin Dose 650 MG; Start 04/04/17 at 06:30 Ondansetron HCl (Zofran Inj) 4 mg Q6H PRN IV NAUSEA AND/OR VOMITING; Start at 06:30 Diagnostic Test (Pha) (Accu-Chek) 1 ea 02 XX ; Start 04/05/17 at 02:00 Miscellaneous Information 1 ea NOTE XX ; Start 04/04/17 at 07:30 Glucose (Glutose) 15 gm Q15M PRN PO DECREASED GLUCOSE; Start 04/04/17 at 07:30 Glucose (Glutose) 22.5 gm Q15M PRN PO DECREASED GLUCOSE; Start 04/04/17 at 07: 30 Dextrose (D50w Syringe) 25 ml Q15M PRN IV DECREASED GLUCOSE; Start 04/04/17 at 07:30 Dextrose (D50w Syringe) 50 ml Q15M PRN IV DECREASED GLUCOSE; Start 04/04/17 at 07:30 Glucagon (Glucagen) 1 mg Q15M PRN IM DECREASED GLUCOSE; Start 04/04/17 at 07:30 Glucose (Glutose) 15 gm Q15M PRN BUCCAL DECREASED GLUCOSE; Start 04/04/17 at 07 :30 Collagenase (Santyl) 1 applic DAILY TOP Last administered on 04/08/17 09:08; Admin Dose 1 APPLIC; Start 04/04/17 at 09:00 Insulin Glargine (Lantus) 45 unit HS SC Last administered on 04/07/17 21:15; Admin Dose 45 UNIT; Start 04/04/17 at 21:00 Linagliptin (Tradjenta) 5 mg DAILY PO Last administered on 04/08/17 09:03; Admin Dose 5 MG; Start 04/04/17 at 09:00 Aspirin (Halfprin) 81 mg DAILY PO Last administered on 04/08/17 09:03; Admin Dose 81 MG; Start 04/04/17 at 09:00 Collagenase (Santyl) 1 applic DAILY PRN TOP WHEN SOILDED; Start 04/04/17 at 07: 30 Heparin Sodium (Porcine) (Heparin (5000 Units/0.5 ml)) 5,000 unit BID SC Last administered on 04/07/17 21:14; Admin Dose 5,000 UNIT; Start 04/05/17 at 21:00 Morphine Sulfate (morphine) 2 mg Q4H PRN IV 7-10 PAIN Last administered on 04/08 10:12; Admin Dose 2 MG; Start 04/05/17 at 17:00 Benzonatate 100 mg 100 mg TID PO Last administered on 04/08/17 12:17; Admin Dose 100 MG; Start 04/06/17 at 13:00 Vancomycin HCl/ Sodium Chloride (Vancocin/NS) 500 ml @ 125 mls/hr Q24H IVPB Last administered on 04/08/17 08:58; Admin Dose 125 MLS/HR; Start 04/08/17 at 08:00 Amlodipine Besylate (Norvasc) 2.5 mg DAILY PO Last administered on 04/08/17 09 :03; Admin Dose 2.5 MG; Start 04/08/17 at 09:00 Valsartan (Diovan) 40 mg BID PO Last administered on 04/08/17 09:02; Admin Dose 40 MG; Start 04/07/17 at 21:00 Terbinafine HCl (Lamisil) 250 mg BID PO Last administered on 04/08/17 09:03; Admin Dose 250 MG; Start 04/07/17 at 21:00; Stop 04/14/17 at 20:59 Acetylcysteine (Nac) 1,200 mg BID PO Last administered on 04/08/17 09:07; Admin Dose 1,200 MG; Start 04/07/17 at 21:00; Stop 04/11/17 at 20:59 Atorvastatin Calcium (Lipitor) 40 mg HS PO ; Start 04/08/17 at 21:00 Salmeterol Xinafoate/ Fluticasone (Advair 250/50 Diskus) 1 inh BID INH ; Start 04/09/17 at 09:00 TORO ARMIJO NP Apr 08, 2017 14:04
[2017-04-08 14:51] VITALS: BP 132/63; RESP 18
[2017-04-08 19:35] VITALS: BP 132/78; RESP 18
[2017-04-08] MEDS: ACCU-CHEK XX SCH (20:41)
[2017-04-08] MEDS: INSULIN GLARGINE [LANtus] 3 ML PEN SC SCH (20:43)
[2017-04-08] MEDS: ATORVASTATIN 40 MG TAB PO SCH (20:44)
[2017-04-08] MEDS ORDERED: ACETYLCYSTEINE 600 MG CAP PO SCH (21:00)
[2017-04-09 01:58] VITALS: BP 139/67; RESP 20
[2017-04-09 05:40] LABS: BASOPHIL # 0.1 10^3/ul (0.0-0.1); BASOPHILS % 1.2 % (0.0-2.0); EOSINOPHILS # 0.1 10^3/ul (0.0-0.5); HEMATOCRIT 39.5 % (42.0-52.0); HEMOGLOBIN 12.9 g/dl (14.0-18.0); LYMPHOCYTES # 1.8 10^3/ul (0.8-2.9); LYMPHOCYTES % 30.9 % (15.0-51.0); MEAN CORPUSCULAR HGB CONC 32.7 g/dl (32.0-37.0); MEAN PLATELET VOLUME 11.1 fl (7.4-10.4); MONOCYTE # 0.5 10^3/ul (0.3-0.9); MONOCYTES % 7.8 % (0.0-11.0); NEUTROPHILS % 57.8 % (39.0-77.0); PLATELET COUNT 233 10^3/UL (140-415); RED BLOOD COUNT 4.16 10^6/ul (4.70-6.10); WHITE BLOOD COUNT 5.9 10^3/ul (4.8-10.8)
[2017-04-09 06:25] LABS: ALBUMIN 3.4 g/dl (3.3-4.9); ALBUMIN/GLOBULIN RATIO 1.09; BILIRUBIN,INDIRECT 0.2 mg/dl (0-1.1); BILIRUBIN,TOTAL 0.2 mg/dl (0.2-1.3); CALCIUM 9.3 mg/dl (8.4-10.2); CREATININE 1.15 mg/dl (0.61-1.24); POTASSIUM 4.4 mmol/L (3.5-5.1); TOTAL PROTEIN 6.5 g/dl (6.1-8.1)
[2017-04-09 08:00] VITALS: BP 148/70; RESP 16
[2017-04-09] MEDS: metFORMIN 500 MG TAB PO SCH ×2 (08:00→17:42)
[2017-04-09] MEDS: SALMETEROL/FLUTICASONE 250/50 INHA INH SCH ×2 (08:22→21:19)
[2017-04-09] MEDS: LINAGLIPTIN 5 MG TABLET PO SCH (08:22)
[2017-04-09] MEDS: CEFEPIME 1GM/50 ML (PMX) 50 ML IVPB SCH ×2 (08:22→21:19)
[2017-04-09] MEDS: BENZONATATE 100 MG CAP PO SCH ×3 (08:22→21:21)
[2017-04-09] MEDS: TERBINAFINE 250 MG TAB PO SCH ×2 (08:22→21:20)
[2017-04-09] MEDS: ACETYLCYSTEINE 600 MG CAP PO SCH ×2 (08:22→21:21)
[2017-04-09] MEDS: ASPIRIN (EC) 81 MG TAB PO SCH (08:23)
[2017-04-09] MEDS: VALSARTAN 80 MG TAB PO SCH ×2 (08:35→21:20)
[2017-04-09] MEDS: AMLODIPINE 2.5 MG TAB PO SCH (08:36)
[2017-04-09] MEDS: HEPARIN 5,000 UNIT/0.5 ML VIAL SC SCH ×2 (08:37→21:24)
[2017-04-09] MEDS: INSULIN ASPART [NOVOLOG] 3 ML PEN SC SCH ×7 (08:38→21:28)
[2017-04-09] MEDS: COLLAGENASE 30 GM TUBE TOP SCH (08:41)
[2017-04-09] MEDS: morphine 2 MG INJ IV PRN ×2 (09:29→18:24)
[2017-04-09] MEDS: VANCOMYCIN 1.75 GM in NS 500 ML IVPB SCH (09:29)
[2017-04-09] MEDS ORDERED: SOD CHLORIDE 0.9% 1,000 ML IV SCH (09:30)
--- NOTE | 2017-04-09 11:08 | PN ---
Date/Time of Note Date/Time of Note DATE: 04/09/17 TIME: 11:08 Assessment/Plan VTE Prophylaxis VTE Prophylaxis Intervention: heparin Lines/Catheters IV Catheter Type (from [facility]): PICC Line Central line still needed: Yes Urinary Cath still in place: No Assessment/Plan Chief Complaint/Hosp Course 1. Left foot osteomyelitis with left great toe diabetic ulcer. Failed outpatient therapy On 6 weeks IV antibiotics. -For left lower extremity angiogram today. -Continue current IV antibiotics per ID [id number] cultures 2. Type 2 diabetes. With good glycemic control. Continue current regimen. 3. Essential hypertension. Continue current antihypertensives 4. Dyslipidemia. On statin 5. PAD. Continue aspirin. 6. History of cerebrovascular accident. No present issues 7.Tiny 6.5 mm micronodule in the anteromedial right upper lobe -Follow-up CT in 6 months to one year recommended. 8. Recent GBS bacteremia and sepsis. Currently no evidence of sepsis. 9. Obesity. Weight reduction advised. DVT prophylaxis: Heparin subcutaneous Plan: Continue current medical management. Continue antibiotics. Follow-up with vascular recommendation. Case discussed with Problems: Subjective 24 Hr Interval Summary Free Text/Dictation No acute overnight episodes. Patient is for vascular intervention today. Exam/Review of Systems Vital Signs Vitals Vital Signs Date Time Temp Pulse Resp B/P Pulse Ox O2 Delivery O2 Flow Rate FiO2 04/09/17 08:00 98.1 71 16 148/70 95 Intake and Output 04/08/17 04/08/17 04/09/17 14:59 22:59 06:59 Intake Total 550 ml 1390 ml 350 ml Balance 550 ml 1390 ml 350 ml Exam General: Obese male in no acute distress. HEENT: Normocephalic, Atraumatic, No laceration or hematoma; Eyes: PEERL, Conjunctiva clear, Anicteric sclera Neck: Supple without any lymphadenopathy, nontender, no JVD, no carotid bruits, trachea midline, no thyromegaly Cardiac: S1, S2 auscultated, regular rhythm and rate, no mumurs or gallop Pulmonary: Normal respiratory effort. Chest clear to auscultation bilaterally, no adventitious breath sounds GI: Abdomen obese, soft, Non tender, non- distended, no masses, no rebound tenderness or guarding. Bowel sounds active on all four quadrants Genitourinary: Deferred Extremities: Necrotic toes with +Erythema /warmth/severe tenderness to the dorsum of the left foot Ulceration on left great toe. No pulsation appreciated on left DP.. Full ROM on all four extremities. No focal weakness appreciated. Neurologic: Alert to person, place, time, and situation. Affect appropriate, intact sensation. Skin: Clean,dry, and intact. No ecchymosis, no rashes, or lesions Results Result Diagram: 04/09/172 04/09/17 0442 Results 24 hrs Laboratory Tests Test 04/08/17 12:12 04/08/17 17:07 04/08/17 20:40 04/09/17 04:42 Bedside Glucose 109 132 167 White Blood Count 5.9 Red Blood Count 4.16 L Hemoglobin 12.9 L Hematocrit 39.5 L Mean Corpuscular Volume 95.0 Mean Corpuscular Hemoglobin 31.0 Mean Corpuscular Hemoglobin Concent 32.7 Red Cell Distribution Width 13.0 Platelet Count 233 Mean Platelet Volume 11.1 H Neutrophils % 57.8 Lymphocytes % 30.9 Monocytes % 7.8 Eosinophils % 2.0 Basophils % 1.2 Nucleated Red Blood Cells % 0.0 Neutrophils # (Manual) 3 Lymphocytes # 1.8 Monocytes # 0.5 Eosinophils # 0.1 Basophils # 0.1 Nucleated Red Blood Cells # 0.0 Erythrocyte Sedimentation Rate 41 H Sodium Level 141 Potassium Level 4.4 Chloride Level 102 Carbon Dioxide Level 25 Anion Gap 18 H Blood Urea Nitrogen 21 H Creatinine 1.15 Glucose Level 188 Calcium Level 9.3 Total Bilirubin 0.2 Direct Bilirubin 0.00 Indirect Bilirubin 0.2 Aspartate Amino Transf (AST/SGOT) 16 Alanine Aminotransferase (ALT/SGPT) 29 Alkaline Phosphatase 93 Total Protein 6.5 Albumin 3.4 Globulin 3.10 Albumin/Globulin Ratio 1.09 Test 04/09/17 08:28 Bedside Glucose 163 Medications Medications Current Medications Cefepime HCl (Maxipime 1gm/50 ml (Pmx)) 50 ml @ 100 mls/hr Q12 IVPB Last administered on 04/09/17 08:22; Admin Dose 100 MLS/HR; Start 04/04/17 at 09:00 Acetaminophen (Tylenol Tab) 650 mg Q6H PRN PO PAIN AND OR ELEVATED TEMP Last administered on 04/05/17 07:32; Admin Dose 650 MG; Start 04/04/17 at 06:30 Ondansetron HCl (Zofran Inj) 4 mg Q6H PRN IV NAUSEA AND/OR VOMITING; Start at 06:30 Diagnostic Test (Pha) (Accu-Chek) 1 ea 02 XX ; Start 04/05/17 at 02:00 Miscellaneous Information 1 ea NOTE XX ; Start 04/04/17 at 07:30 Glucose (Glutose) 15 gm Q15M PRN PO DECREASED GLUCOSE; Start 04/04/17 at 07:30 Glucose (Glutose) 22.5 gm Q15M PRN PO DECREASED GLUCOSE; Start 04/04/17 at 07: 30 Dextrose (D50w Syringe) 25 ml Q15M PRN IV DECREASED GLUCOSE; Start 04/04/17 at 07:30 Dextrose (D50w Syringe) 50 ml Q15M PRN IV DECREASED GLUCOSE; Start 04/04/17 at 07:30 Glucagon (Glucagen) 1 mg Q15M PRN IM DECREASED GLUCOSE; Start 04/04/17 at 07:30 Glucose (Glutose) 15 gm Q15M PRN BUCCAL DECREASED GLUCOSE; Start 04/04/17 at 07 :30 Collagenase (Santyl) 1 applic DAILY TOP Last administered on 04/09/17 08:41; Admin Dose 1 APPLIC; Start 04/04/17 at 09:00 Insulin Glargine (Lantus) 45 unit HS SC Last administered on 04/08/17 20:43; Admin Dose 45 UNIT; Start 04/04/17 at 21:00 Linagliptin (Tradjenta) 5 mg DAILY PO Last administered on 04/09/17 08:22; Admin Dose 5 MG; Start 04/04/17 at 09:00 Aspirin (Halfprin) 81 mg DAILY PO Last administered on 04/09/17 08:23; Admin Dose 81 MG; Start 04/04/17 at 09:00 Collagenase (Santyl) 1 applic DAILY PRN TOP WHEN SOILDED; Start 04/04/17 at 07: 30 Heparin Sodium (Porcine) (Heparin (5000 Units/0.5 ml)) 5,000 unit BID SC Last administered on 04/07/17 21:14; Admin Dose 5,000 UNIT; Start 04/05/17 at 21:00 Morphine Sulfate (morphine) 2 mg Q4H PRN IV 7-10 PAIN Last administered on 04/09 09:29; Admin Dose 2 MG; Start 04/05/17 at 17:00 Benzonatate 100 mg 100 mg TID PO Last administered on 04/09/17 08:22; Admin Dose 100 MG; Start 04/06/17 at 13:00 Vancomycin HCl/ Sodium Chloride (Vancocin/NS) 500 ml @ 125 mls/hr Q24H IVPB Last administered on 04/09/17 09:29; Admin Dose 125 MLS/HR; Start 04/08/17 at 08:00 Amlodipine Besylate (Norvasc) 2.5 mg DAILY PO Last administered on 04/09/17 08 :36; Admin Dose 2.5 MG; Start 04/08/17 at 09:00 Valsartan (Diovan) 40 mg BID PO Last administered on 04/09/17 08:35; Admin Dose 40 MG; Start 04/07/17 at 21:00 Terbinafine HCl (Lamisil) 250 mg BID PO Last administered on 04/09/17 08:22; Admin Dose 250 MG; Start 04/07/17 at 21:00; Stop 04/14/17 at 20:59 Acetylcysteine (Nac) 1,200 mg BID PO Last administered on 04/09/17 08:22; Admin Dose 1,200 MG; Start 04/07/17 at 21:00; Stop 04/11/17 at 20:59 Atorvastatin Calcium (Lipitor) 40 mg HS PO Last administered on 04/08/17 20:44 ; Admin Dose 40 MG; Start 04/08/17 at 21:00 Salmeterol Xinafoate/ Fluticasone 1 inh 1 inh BID INH Last administered on 04/09 08:22; Admin Dose 1 INH; Start 04/09/17 at 09:00 Sodium Chloride (NS) 1,000 ml @ 100 mls/hr Q10H IV Last administered on 09:30; Admin Dose 100 MLS/HR; Start 04/09/17 at 09:30 BRANDON HERRERA NP Apr 09, 2017 11:08
[2017-04-09] MEDS ORDERED: INSULIN ASPART [NOVOLOG] 3 ML PEN SC SCH (12:51)
[2017-04-09 14:23] VITALS: BP 140/73; RESP 18
--- NOTE | 2017-04-09 15:04 | CONS ---
Date/Time of Note Date/Time of Note DATE: 04/09/17 TIME: 15:04 Assessment/Plan Assessment/Plan Chief Complaint/Hosp Course SUBJECTIVE: Patient is awake. Looks comfortable.No pain, no fevers Temperature 97.9 pulse 75 respirations 18 blood pressure 140/73 saturation 96 on room air BUN 21 creatinine 1.15, WBC 5.9 platelets 233, no shift. Vanco trough on April 07 13.2 ANTIMICROBIALS: Vancomycin, cefepime. PHYSICAL EXAMINATION: GENERAL: Well-developed elderly man who is alert, in no distress. HEENT: Head atraumatic, normocephalic. Sclerae anicteric. Buccal mucosa pink. NECK: Supple. LUNGS: Chest rise symmetrical. Breath sounds diminished at the bases. Otherwise clear. HEART: S1, S2. ABDOMEN: Soft. Bowel sounds present. EXTREMITIES: Left foot great toe erythema and edema. ASSESSMENT: 1. Left great toe osteomyelitis as per magnetic resonance imaging done on 03/17. 2. Status post streptococcal bacteremia on 03/15/2017. 3. Chronic obstructive pulmonary disease with a history of tobacco use. 4. Diabetes. 5. PVD PLAN: Remains stable. Continue present care. Continue on current antibiotics. Pending endovascular intervention DW staff Problems: Consultation Date/Type/Reason Admit Date/Time Apr 05, 2017 at 10:08 Initial Consult Date 04/04/17 Type of Consultation: ID Exam/Review of Systems Vital Signs Vitals Vital Signs Date Time Temp Pulse Resp B/P Pulse Ox O2 Delivery O2 Flow Rate FiO2 04/09/17 14:23 97.9 75 18 140/73 96 Intake and Output 04/08/17 04/08/17 04/09/17 15:00 23:00 07:00 Intake Total 550 ml 1390 ml 350 ml Balance 550 ml 1390 ml 350 ml Results Result Diagram: 04/09/17 0442 04/09/17 0442 Results 24 hrs Laboratory Tests Test 04/08/17 17:07 04/08/17 20:40 04/09/17 04:42 04/09/17 08:28 Bedside Glucose 132 167 163 White Blood Count 5.9 Red Blood Count 4.16 L Hemoglobin 12.9 L Hematocrit 39.5 L Mean Corpuscular Volume 95.0 Mean Corpuscular Hemoglobin 31.0 Mean Corpuscular Hemoglobin Concent 32.7 Red Cell Distribution Width 13.0 Platelet Count 233 Mean Platelet Volume 11.1 H Neutrophils % 57.8 Lymphocytes % 30.9 Monocytes % 7.8 Eosinophils % 2.0 Basophils % 1.2 Nucleated Red Blood Cells % 0.0 Neutrophils # (Manual) 3 Lymphocytes # 1.8 Monocytes # 0.5 Eosinophils # 0.1 Basophils # 0.1 Nucleated Red Blood Cells # 0.0 Erythrocyte Sedimentation Rate 41 H Sodium Level 141 Potassium Level 4.4 Chloride Level 102 Carbon Dioxide Level 25 Anion Gap 18 H Blood Urea Nitrogen 21 H Creatinine 1.15 Glucose Level 188 Calcium Level 9.3 Total Bilirubin 0.2 Direct Bilirubin 0.00 Indirect Bilirubin 0.2 Aspartate Amino Transf (AST/SGOT) 16 Alanine Aminotransferase (ALT/SGPT) 29 Alkaline Phosphatase 93 Total Protein 6.5 Albumin 3.4 Globulin 3.10 Albumin/Globulin Ratio 1.09 Test 04/09/17 12:21 04/09/17 13:23 Bedside Glucose 237 H 228 H Medications Medications Current Medications Cefepime HCl (Maxipime 1gm/50 ml (Pmx)) 50 ml @ 100 mls/hr Q12 IVPB Last administered on 04/09/17 08:22; Admin Dose 100 MLS/HR; Start 04/04/17 at 09:00 Acetaminophen (Tylenol Tab) 650 mg Q6H PRN PO PAIN AND OR ELEVATED TEMP Last administered on 04/05/17 07:32; Admin Dose 650 MG; Start 04/04/17 at 06:30 Ondansetron HCl (Zofran Inj) 4 mg Q6H PRN IV NAUSEA AND/OR VOMITING; Start at 06:30 Diagnostic Test (Pha) (Accu-Chek) 1 ea 02 XX ; Start 04/05/17 at 02:00 Miscellaneous Information 1 ea NOTE XX ; Start 04/04/17 at 07:30 Glucose (Glutose) 15 gm Q15M PRN PO DECREASED GLUCOSE; Start 04/04/17 at 07:30 Glucose (Glutose) 22.5 gm Q15M PRN PO DECREASED GLUCOSE; Start 04/04/17 at 07: 30 Dextrose (D50w Syringe) 25 ml Q15M PRN IV DECREASED GLUCOSE; Start 04/04/17 at 07:30 Dextrose (D50w Syringe) 50 ml Q15M PRN IV DECREASED GLUCOSE; Start 04/04/17 at 07:30 Glucagon (Glucagen) 1 mg Q15M PRN IM DECREASED GLUCOSE; Start 04/04/17 at 07:30 Glucose (Glutose) 15 gm Q15M PRN BUCCAL DECREASED GLUCOSE; Start 04/04/17 at 07 :30 Collagenase (Santyl) 1 applic DAILY TOP Last administered on 04/09/17 08:41; Admin Dose 1 APPLIC; Start 04/04/17 at 09:00 Insulin Glargine (Lantus) 45 unit HS SC Last administered on 04/08/17 20:43; Admin Dose 45 UNIT; Start 04/04/17 at 21:00 Linagliptin (Tradjenta) 5 mg DAILY PO Last administered on 04/09/17 08:22; Admin Dose 5 MG; Start 04/04/17 at 09:00 Aspirin (Halfprin) 81 mg DAILY PO Last administered on 04/09/17 08:23; Admin Dose 81 MG; Start 04/04/17 at 09:00 Collagenase (Santyl) 1 applic DAILY PRN TOP WHEN SOILDED; Start 04/04/17 at 07: 30 Heparin Sodium (Porcine) (Heparin (5000 Units/0.5 ml)) 5,000 unit BID SC Last administered on 04/07/17 21:14; Admin Dose 5,000 UNIT; Start 04/05/17 at 21:00 Morphine Sulfate (morphine) 2 mg Q4H PRN IV 7-10 PAIN Last administered on 04/09 09:29; Admin Dose 2 MG; Start 04/05/17 at 17:00 Benzonatate 100 mg 100 mg TID PO Last administered on 04/09/17 08:22; Admin Dose 100 MG; Start 04/06/17 at 13:00 Vancomycin HCl/ Sodium Chloride (Vancocin/NS) 500 ml @ 125 mls/hr Q24H IVPB Last administered on 04/09/17 09:29; Admin Dose 125 MLS/HR; Start 04/08/17 at 08:00 Amlodipine Besylate (Norvasc) 2.5 mg DAILY PO Last administered on 04/09/17 08 :36; Admin Dose 2.5 MG; Start 04/08/17 at 09:00 Valsartan (Diovan) 40 mg BID PO Last administered on 04/09/17 08:35; Admin Dose 40 MG; Start 04/07/17 at 21:00 Terbinafine HCl (Lamisil) 250 mg BID PO Last administered on 04/09/17 08:22; Admin Dose 250 MG; Start 04/07/17 at 21:00; Stop 04/14/17 at 20:59 Acetylcysteine (Nac) 1,200 mg BID PO Last administered on 04/09/17 08:22; Admin Dose 1,200 MG; Start 04/07/17 at 21:00; Stop 04/11/17 at 20:59 Atorvastatin Calcium (Lipitor) 40 mg HS PO Last administered on 04/08/17 20:44 ; Admin Dose 40 MG; Start 04/08/17 at 21:00 Salmeterol Xinafoate/ Fluticasone 1 inh 1 inh BID INH Last administered on 04/09 08:22; Admin Dose 1 INH; Start 04/09/17 at 09:00 Sodium Chloride (NS) 1,000 ml @ 100 mls/hr Q10H IV Last administered on 09:30; Admin Dose 100 MLS/HR; Start 04/09/17 at 09:30 Nystatin (Nystatin Powder) 1 applic BID TOP ; Start 04/09/17 at 13:00 TORO ARMIJO NP Apr 09, 2017 15:04
[2017-04-09] MEDS: NYSTATIN 30 GM POWDER BTL TOP SCH ×2 (17:42→21:00)
[2017-04-09] MEDS ORDERED: Insulin NOVOLOG SS MILD Algorithm (NPO/TPN/ENTERAL FEEDS) SC SCH (18:00)
[2017-04-09] MEDS ORDERED: SOD CHLORIDE 0.9% 100 ML ONE (18:02)
[2017-04-09] MEDS ORDERED: IODIXANOL LOCM 50 ML BTL ONE (18:02)
[2017-04-09] MEDS ORDERED: IODIXANOL LOCM 100 ML BTL ONE (18:02)
--- NOTE | 2017-04-09 20:30 | RADRPT ---
PROCEDURE: CTA abdomen and pelvis of lower extremity runoff CLINICAL INDICATION: 61 years of age, male. Diabetic ulcer with gangrene. TECHNIQUE: A CT angiogram of the abdomen and pelvis with lower extremity runoff was performed with intravenous contrast. The patient was scanned following the uncomplicated intravenous administrati on of 125 mL of Visipaque 320. Coronal and sagittal reformatted images were obtained from the axial source images. Images were reviewed on a high-resolution PACS workstation. CTDI vol: 39.4 and 9.9 m Gy. DLP: 1325 mGy-cm. COMPARISON: None available. FINDINGS: AORTA AND LOWER EXTREMITY ARTERIES: AORTA: Atherosclerosis abdominal aorta without aneurysm or high-grade stenosis. Renal arteries: There are two right and two left renal arteries. Right renal arteries are widely pat ent. There is focal moderate stenosis at the main left renal artery origin due to calcified atheros clerotic plaque. There is calcified atherosclerotic plaque at the origin of the accessory left vickie l artery with focal mild to moderate stenosis. Celiac [place], SMA and DEEPALI: Conventional anatomy. Mild calcified atherosclerotic plaque at the celiac axis origin without stenosis. Focal calcified atherosclerotic plaque at SMA origin results in grea ter than 50% stenosis. DEEPALI is patent. ILIAC ARTERIES: Right iliac arteries: Right common and external iliac arteries demonstrate atherosclerosis but remai n widely patent. Atherosclerosis of the right internal iliac artery that remains patent. No aneury sm. Left iliac arteries:Left common and external iliac artery demonstrate atherosclerosis but remain wid corey patent. Atherosclerosis of the left internal iliac artery remains patent. No aneurysm. RIGHT LOWER EXTREMITY: Right common femoral artery is widely patent. There is calcified atherosclerotic plaque in the dist al SFA with mild stenoses. Proximal and mid SMA are widely patent. There is calcified atherosclero tic plaque in the popliteal artery with multiple in tandem mild stenoses. There is calcified atheros clerotic plaque in the anterior tibial artery that is occluded in the proximal lower leg. Mild calc ified atherosclerotic plaque in the tibioperoneal trunk and proximal posterior tibial artery without high-grade stenosis. Posterior tibial artery is widely patent into the foot. Peroneal artery is p atent to the ankle. LEFT LOWER EXTREMITY: Left common femoral artery is widely patent. There is calcified atherosclerotic plaque in the mid a nd distal superficial femoral artery with focal 50% stenosis at the adductor canal (3/294). Atheros clerotic calcification of the popliteal artery with mild in tandem stenoses. Calcified atherosclero tic plaque in the anterior tibial artery that is occluded in the proximal lower extremity. There is calcified atherosclerotic plaque in the tibioperoneal trunk and proximal posterior tibial artery wi th focal stenosis at the origin of the posterior tibial artery that is otherwise patent to the foot. The peroneal artery is patent to the ankle. LUNG BASES, ABDOMEN AND PELVIS: Evaluation of solid visceral organs is limited on unenhanced and arterial phase imaging of the abdom en and pelvis. Lung Bases: No significant abnormality. Liver: Calcified granuloma left hepatic lobe. No significant abnormality. Gallbladder: Normal. Biliary tree: No intrahepatic or extrahepatic biliary duct dilatation. Spleen: Calcified granuloma. Negative for splenomegaly. Pancreas: No significant abnormality. Adrenal glands: No significant abnormality. Kidneys and ureters: Kidneys enhance promptly and are normal size. There is bilateral lobulat ion. Negative for hydronephrosis. Gastrointestinal tract: Bowel loops are decompressed. Large amount of colonic stool suggests consti pation. Stomach contains semisolid material from a recent meal. Non-inflamed appendix right lower q uadrant. Pelvic organs: No obvious abnormality. Lymph nodes: No lymphadenopathy. Peritoneal cavity: No free fluid or free air. Abdominal wall: Indirect fat containing left inguinal hernia Musculoskeletal: There is soft tissue swelling involving the left great toe with bony destruction of the tuft of the distal phalanx of the great toe in keeping with osteomyelitis. There is an osteoch ondral lesion of the medial talar dome of the right ankle. Bilateral spondylolysis at L5. Multilev el degenerative changes in lumbar spine. IMPRESSION: Extensive atherosclerotic calcification of the abdominal aorta and its branch vessels without aneury sm. There is focal high grade stenosis at the SMA origin and there is focal moderate stenosis at th e origin of the 2 left renal arteries. Celiac axis and DEEPALI are patent and left kidney enhances prom ptly without atrophy. Atherosclerosis of the arteries of the right lower extremity without flow-limiting stenosis in the m ajor arteries. There is two-vessel runoff to the right foot and ankle. Atherosclerosis of the arteries of the left lower extremity with focal moderate stenosis of the dist al SFA at the adductor canal. There is focal stenosis of the origin of the posterior tibial artery. There is two-vessel runoff to the left foot and ankle. Bony destruction tuft of the distal phalanx of the left great toe with associated soft tissue swelli ng in keeping with osteomyelitis and soft tissue infection. Large amount of colonic stool suggests constipation. RPTAT: HCTS Jennifer Gomez, Physician Date Time Electronically viewed and signed by Jennifer Gomez, Physician on 04/09/2017 20:29 CS/
[2017-04-09 20:35] VITALS: BP 157/75; RESP 16
[2017-04-09] MEDS ORDERED: LACTOBACILLUS RHAMNOSUS CAP PO SCH (21:00)
[2017-04-09] MEDS: ATORVASTATIN 40 MG TAB PO SCH (21:20)
[2017-04-09] MEDS: INSULIN GLARGINE [LANtus] 3 ML PEN SC SCH (21:25)
--- NOTE | 2017-04-09 23:34 | CONS ---
Date/Time of Note Date/Time of Note DATE: 04/09/17 TIME: 23:34 Consultation Date/Type/Reason Admit Date/Time Apr 05, 2017 at 10:08 Constitutional: no complaints Respiratory: cough Cardiovascular: no complaints Gastrointestinal: no complaints Genitourinary: no complaints Past Medical History Medical History: diabetes, high cholesterol, hypertension, other (CV) Past Surgical History Past Surgical Hx: other Social History Alcohol Use: none Smoking Status: Former smoker Drug Use: none Exam/Review of Systems Vital Signs Vitals Vital Signs Date Time Temp Pulse Resp B/P Pulse Ox O2 Delivery O2 Flow Rate FiO2 04/09/17 20:35 97.8 83 16 157/75 94 Intake and Output 04/08/17 04/08/17 04/09/17 15:00 23:00 07:00 Intake Total 550 ml 1390 ml 350 ml Balance 550 ml 1390 ml 350 ml Results Result Diagram: 04/09/17 0442 04/09/17 0442 Results 24 hrs Laboratory Tests Test 04/09/17 04:42 04/09/17 08:28 04/09/17 12:21 04/09/17 13:23 White Blood Count 5.9 Red Blood Count 4.16 L Hemoglobin 12.9 L Hematocrit 39.5 L Mean Corpuscular Volume 95.0 Mean Corpuscular Hemoglobin 31.0 Mean Corpuscular Hemoglobin Concent 32.7 Red Cell Distribution Width 13.0 Platelet Count 233 Mean Platelet Volume 11.1 H Neutrophils % 57.8 Lymphocytes % 30.9 Monocytes % 7.8 Eosinophils % 2.0 Basophils % 1.2 Nucleated Red Blood Cells % 0.0 Neutrophils # (Manual) 3 Lymphocytes # 1.8 Monocytes # 0.5 Eosinophils # 0.1 Basophils # 0.1 Nucleated Red Blood Cells # 0.0 Erythrocyte Sedimentation Rate 41 H Sodium Level 141 Potassium Level 4.4 Chloride Level 102 Carbon Dioxide Level 25 Anion Gap 18 H Blood Urea Nitrogen 21 H Creatinine 1.15 Glucose Level 188 Calcium Level 9.3 Total Bilirubin 0.2 Direct Bilirubin 0.00 Indirect Bilirubin 0.2 Aspartate Amino Transf (AST/SGOT) 16 Alanine Aminotransferase (ALT/SGPT) 29 Alkaline Phosphatase 93 Total Protein 6.5 Albumin 3.4 Globulin 3.10 Albumin/Globulin Ratio 1.09 Bedside Glucose 163 237 H 228 H Test 04/09/17 17:39 04/09/17 21:18 Bedside Glucose 233 H 217 Medications Medications Current Medications Cefepime HCl (Maxipime 1gm/50 ml (Pmx)) 50 ml @ 100 mls/hr Q12 IVPB Last administered on 04/09/17 21:19; Admin Dose 100 MLS/HR; Start 04/04/17 at 09:00 Acetaminophen (Tylenol Tab) 650 mg Q6H PRN PO PAIN AND OR ELEVATED TEMP Last administered on 04/05/17 07:32; Admin Dose 650 MG; Start 04/04/17 at 06:30 Ondansetron HCl (Zofran Inj) 4 mg Q6H PRN IV NAUSEA AND/OR VOMITING; Start at 06:30 Diagnostic Test (Pha) (Accu-Chek) 1 ea 02 XX ; Start 04/05/17 at 02:00 Miscellaneous Information 1 ea NOTE XX ; Start 04/04/17 at 07:30 Glucose (Glutose) 15 gm Q15M PRN PO DECREASED GLUCOSE; Start 04/04/17 at 07:30 Glucose (Glutose) 22.5 gm Q15M PRN PO DECREASED GLUCOSE; Start 04/04/17 at 07: 30 Dextrose (D50w Syringe) 25 ml Q15M PRN IV DECREASED GLUCOSE; Start 04/04/17 at 07:30 Dextrose (D50w Syringe) 50 ml Q15M PRN IV DECREASED GLUCOSE; Start 04/04/17 at 07:30 Glucagon (Glucagen) 1 mg Q15M PRN IM DECREASED GLUCOSE; Start 04/04/17 at 07:30 Glucose (Glutose) 15 gm Q15M PRN BUCCAL DECREASED GLUCOSE; Start 04/04/17 at 07 :30 Collagenase (Santyl) 1 applic DAILY TOP Last administered on 04/09/17 08:41; Admin Dose 1 APPLIC; Start 04/04/17 at 09:00 Insulin Glargine (Lantus) 45 unit HS SC Last administered on 04/09/17 21:25; Admin Dose 45 UNIT; Start 04/04/17 at 21:00 Linagliptin (Tradjenta) 5 mg DAILY PO Last administered on 04/09/17 08:22; Admin Dose 5 MG; Start 04/04/17 at 09:00 Aspirin (Halfprin) 81 mg DAILY PO Last administered on 04/09/17 08:23; Admin Dose 81 MG; Start 04/04/17 at 09:00 Collagenase (Santyl) 1 applic DAILY PRN TOP WHEN SOILDED; Start 04/04/17 at 07: 30 Heparin Sodium (Porcine) (Heparin (5000 Units/0.5 ml)) 5,000 unit BID SC Last administered on 04/09/17 21:24; Admin Dose 5,000 UNIT; Start 04/05/17 at 21:00 Morphine Sulfate (morphine) 2 mg Q4H PRN IV 7-10 PAIN Last administered on 04/09 18:24; Admin Dose 2 MG; Start 04/05/17 at 17:00 Benzonatate 100 mg 100 mg TID PO Last administered on 04/09/17 21:21; Admin Dose 100 MG; Start 04/06/17 at 13:00 Vancomycin HCl/ Sodium Chloride (Vancocin/NS) 500 ml @ 125 mls/hr Q24H IVPB Last administered on 04/09/17 09:29; Admin Dose 125 MLS/HR; Start 04/08/17 at 08:00 Amlodipine Besylate (Norvasc) 2.5 mg DAILY PO Last administered on 04/09/17 08 :36; Admin Dose 2.5 MG; Start 04/08/17 at 09:00 Valsartan (Diovan) 40 mg BID PO Last administered on 04/09/17 21:20; Admin Dose 40 MG; Start 04/07/17 at 21:00 Terbinafine HCl (Lamisil) 250 mg BID PO Last administered on 04/09/17 21:20; Admin Dose 250 MG; Start 04/07/17 at 21:00; Stop 04/14/17 at 20:59 Acetylcysteine (Nac) 1,200 mg BID PO Last administered on 04/09/17 21:21; Admin Dose 1,200 MG; Start 04/07/17 at 21:00; Stop 04/11/17 at 20:59 Atorvastatin Calcium (Lipitor) 40 mg HS PO Last administered on 04/09/17 21:20 ; Admin Dose 40 MG; Start 04/08/17 at 21:00 Salmeterol Xinafoate/ Fluticasone (Advair 250/50 Diskus) 1 inh BID INH Last administered on 04/09/17 21:19; Admin Dose 1 INH; Start 04/09/17 at 09:00 Nystatin (Nystatin Powder) 1 applic BID TOP Last administered on 04/09/17 17: 42; Admin Dose 1 APPLIC; Start 04/09/17 at 13:00 CHARLY ALVAREZ DPM Apr 09, 2017 23:34
[2017-04-10] MEDS: ACCU-CHEK XX SCH (02:00)
[2017-04-10 02:28] VITALS: BP 123/59; RESP 16
[2017-04-10] MEDS: morphine 2 MG INJ IV PRN ×4 (06:42→19:03)
[2017-04-10] MEDS: INSULIN ASPART [NOVOLOG] 3 ML PEN SC SCH ×7 (07:30→20:42)
[2017-04-10 08:00] VITALS: BP 129/67; RESP 22
[2017-04-10] MEDS: metFORMIN 500 MG TAB PO SCH (08:00)
[2017-04-10] MEDS: CEFEPIME 1GM/50 ML (PMX) 50 ML IVPB SCH (09:03)
[2017-04-10] MEDS: VANCOMYCIN 1.75 GM in NS 500 ML IVPB SCH (09:03)
[2017-04-10] MEDS: ACETYLCYSTEINE 600 MG CAP PO SCH ×2 (09:03→20:32)
[2017-04-10] MEDS: LINAGLIPTIN 5 MG TABLET PO SCH (09:04)
[2017-04-10] MEDS: ASPIRIN (EC) 81 MG TAB PO SCH (09:04)
[2017-04-10] MEDS: BENZONATATE 100 MG CAP PO SCH ×3 (09:04→20:31)
[2017-04-10] MEDS: TERBINAFINE 250 MG TAB PO SCH (09:04)
[2017-04-10] MEDS: SALMETEROL/FLUTICASONE 250/50 INHA INH SCH ×2 (09:05→20:31)
[2017-04-10] MEDS: AMLODIPINE 2.5 MG TAB PO SCH (09:05)
[2017-04-10] MEDS: VALSARTAN 80 MG TAB PO SCH ×2 (09:05→20:31)
[2017-04-10] MEDS: HEPARIN 5,000 UNIT/0.5 ML VIAL SC SCH ×2 (09:07→20:43)
[2017-04-10] MEDS: COLLAGENASE 30 GM TUBE TOP SCH (09:18)
[2017-04-10] MEDS: NYSTATIN 30 GM POWDER BTL TOP SCH ×2 (09:29→20:40)
--- NOTE | 2017-04-10 10:21 | PN ---
Date/Time of Note Date/Time of Note DATE: 04/10/17 TIME: 10:20 Assessment/Plan VTE Prophylaxis VTE Prophylaxis Intervention: heparin Lines/Catheters IV Catheter Type (from [facility] PICC Line Central line still needed: Yes Urinary Cath still in place: No Assessment/Plan Chief Complaint/Hosp Course 1. Extensive atherosclerotic disease of bilateral lower extremities with Left foot osteomyelitis and great toe diabetic ulcer. Failed outpatient therapy On 6 weeks IV antibiotics. -Tentative plan for angiography of lower extremity by vascular tomorrow. -Continue current IV antibiotics per ID recommendation- Cultures so far negative. 2. Type 2 diabetes. With good glycemic control. Continue current regimen. 3. Essential hypertension. Continue current antihypertensives 4. Dyslipidemia. On statin 5. Bilateral lower extremities PAD with extensive atherosclerotic aortic disease. Continue aspirin. 6. History of cerebrovascular accident. No present issues 7.Tiny 6.5 mm micronodule in the anteromedial right upper lobe -Follow-up CT in 6 months to one year recommended. 8. Recent GBS bacteremia and sepsis. Currently no evidence of sepsis. 9. Obesity. Weight reduction advised. DVT prophylaxis: Heparin subcutaneous Plan: For vascular intervention possibly tomorrow.Hold metformin. Repeat renal fxn in AM. Continue current medical management. Follow-up with vascular recommendation. Case discussed with Problems: Subjective 24 Hr Interval Summary Free Text/Dictation No acute overnight episodes. Exam/Review of Systems Vital Signs Vitals Vital Signs Date Time Temp Pulse Resp B/P Pulse Ox O2 Delivery O2 Flow Rate FiO2 04/10/17 02:28 97.7 74 16 123/59 95 Intake and Output 04/09/17 04/09/17 04/10/17 15:00 23:00 07:00 Intake Total 5050 ml 1270 ml 520 ml Balance 5050 ml 1270 ml 520 ml Exam General: Obese male in no acute distress. HEENT: Normocephalic, Atraumatic, No laceration or hematoma; Eyes: PEERL, Conjunctiva clear, Anicteric sclera Neck: Supple without any lymphadenopathy, nontender, no JVD, no carotid bruits, trachea midline, no thyromegaly Cardiac: S1, S2 auscultated, regular rhythm and rate, no mumurs or gallop Pulmonary: Normal respiratory effort. Chest clear to auscultation bilaterally, no adventitious breath sounds GI: Abdomen obese, soft, Non tender, non- distended, no masses, no rebound tenderness or guarding. Bowel sounds active on all four quadrants Genitourinary: Deferred Extremities: Necrotic toes with +Erythema /warmth/severe tenderness to the dorsum of the left foot Ulceration on left great toe. No pulsation appreciated on left DP.. Full ROM on all four extremities. No focal weakness appreciated. Neurologic: Alert to person, place, time, and situation. Affect appropriate, intact sensation. Skin: Clean,dry, and intact. No ecchymosis, no rashes, or lesions Results Result Diagram: 04/09/17 0442 04/09/17 0442 Results 24 hrs Laboratory Tests Test 04/09/17 12:21 04/09/17 13:23 04/09/17 17:39 04/09/17 21:18 Bedside Glucose 237 H 228 H 233 H 217 Test 04/10/17 01:58 04/10/17 08:47 Bedside Glucose 161 132 Medications Medications Current Medications Cefepime HCl (Maxipime 1gm/50 ml (Pmx)) 50 ml @ 100 mls/hr Q12 IVPB Last administered on 04/10/17 09:03; Admin Dose 100 MLS/HR; Start 04/04/17 at 09:00 Acetaminophen (Tylenol Tab) 650 mg Q6H PRN PO PAIN AND OR ELEVATED TEMP Last administered on 04/05/17 07:32; Admin Dose 650 MG; Start 04/04/17 at 06:30 Ondansetron HCl (Zofran Inj) 4 mg Q6H PRN IV NAUSEA AND/OR VOMITING; Start at 06:30 Diagnostic Test (Pha) (Accu-Chek) 1 ea 02 XX ; Start 04/05/17 at 02:00 Miscellaneous Information 1 ea NOTE XX ; Start 04/04/17 at 07:30 Glucose (Glutose) 15 gm Q15M PRN PO DECREASED GLUCOSE; Start 04/04/17 at 07:30 Glucose (Glutose) 22.5 gm Q15M PRN PO DECREASED GLUCOSE; Start 04/04/17 at 07: 30 Dextrose (D50w Syringe) 25 ml Q15M PRN IV DECREASED GLUCOSE; Start 04/04/17 at 07:30 Dextrose (D50w Syringe) 50 ml Q15M PRN IV DECREASED GLUCOSE; Start 04/04/17 at 07:30 Glucagon (Glucagen) 1 mg Q15M PRN IM DECREASED GLUCOSE; Start 04/04/17 at 07:30 Glucose (Glutose) 15 gm Q15M PRN BUCCAL DECREASED GLUCOSE; Start 04/04/17 at 07 :30 Collagenase (Santyl) 1 applic DAILY TOP Last administered on 04/10/17 09:18; Admin Dose 1 APPLIC; Start 04/04/17 at 09:00 Insulin Glargine (Lantus) 45 unit HS SC Last administered on 04/09/17 21:25; Admin Dose 45 UNIT; Start 04/04/17 at 21:00 Linagliptin (Tradjenta) 5 mg DAILY PO Last administered on 04/10/17 09:04; Admin Dose 5 MG; Start 04/04/17 at 09:00 Aspirin (Halfprin) 81 mg DAILY PO Last administered on 04/10/17 09:04; Admin Dose 81 MG; Start 04/04/17 at 09:00 Collagenase (Santyl) 1 applic DAILY PRN TOP WHEN SOILDED; Start 04/04/17 at 07: 30 Heparin Sodium (Porcine) (Heparin (5000 Units/0.5 ml)) 5,000 unit BID SC Last administered on 04/10/17 09:07; Admin Dose 5,000 UNIT; Start 04/05/17 at 21:00 Morphine Sulfate (morphine) 2 mg Q4H PRN IV 7-10 PAIN Last administered on 04/10 06:42; Admin Dose 2 MG; Start 04/05/17 at 17:00 Benzonatate 100 mg 100 mg TID PO Last administered on 04/10/17 09:04; Admin Dose 100 MG; Start 04/06/17 at 13:00 Vancomycin HCl/ Sodium Chloride (Vancocin/NS) 500 ml @ 125 mls/hr Q24H IVPB Last administered on 04/10/17 09:03; Admin Dose 125 MLS/HR; Start 04/08/17 at 08:00 Amlodipine Besylate (Norvasc) 2.5 mg DAILY PO Last administered on 04/10/17 09 :05; Admin Dose 2.5 MG; Start 04/08/17 at 09:00 Valsartan (Diovan) 40 mg BID PO Last administered on 04/10/17 09:05; Admin Dose 40 MG; Start 04/07/17 at 21:00 Terbinafine HCl (Lamisil) 250 mg BID PO Last administered on 04/10/17 09:04; Admin Dose 250 MG; Start 04/07/17 at 21:00; Stop 04/14/17 at 20:59 Acetylcysteine (Nac) 1,200 mg BID PO Last administered on 04/10/17 09:03; Admin Dose 1,200 MG; Start 04/07/17 at 21:00; Stop 04/11/17 at 20:59 Atorvastatin Calcium (Lipitor) 40 mg HS PO Last administered on 04/09/17 21:20 ; Admin Dose 40 MG; Start 04/08/17 at 21:00 Salmeterol Xinafoate/ Fluticasone (Advair 250/50 Diskus) 1 inh BID INH Last administered on 04/10/17 09:05; Admin Dose 1 INH; Start 04/09/17 at 09:00 Nystatin (Nystatin Powder) 1 applic BID TOP Last administered on 04/10/17 09: 29; Admin Dose 1 APPLIC; Start 04/09/17 at 13:00 Miscellaneous Information (*Rx Drug Level Order Reminder*) VANCOMYCIN TROUGH ON 03/21... ONCE ONCE XX ; Start 04/11/17 at 07:00; Stop 04/11/17 at 07:01 BRANDON HERRERA NP Apr 10, 2017 10:20
[2017-04-10 14:00] VITALS: BP 134/87; RESP 19
--- NOTE | 2017-04-10 14:43 | CONS ---
Date/Time of Note Date/Time of Note DATE: 04/10/17 TIME: 14:42 Assessment/Plan Assessment/Plan Chief Complaint/Hosp Course SUBJECTIVE: Patient is awake. Looks comfortable.No pain, no fevers ANTIMICROBIALS: Vancomycin, cefepime. PHYSICAL EXAMINATION: GENERAL: Well-developed elderly man who is alert, in no distress. HEENT: Head atraumatic, normocephalic. Sclerae anicteric. Buccal mucosa pink. NECK: Supple. LUNGS: Chest rise symmetrical. Breath sounds diminished at the bases. Otherwise clear. HEART: S1, S2. ABDOMEN: Soft. Bowel sounds present. EXTREMITIES: Left foot great toe erythema and edema. ASSESSMENT: 1. Left great toe osteomyelitis as per magnetic resonance imaging done on 03/17. 2. Status post streptococcal bacteremia on 03/15/2017. 3. Chronic obstructive pulmonary disease with a history of tobacco use. 4. Diabetes. 5. PVD PLAN: Remains stable. Continue Vanco, change Cefepime to Rocephin. Pending endovascular intervention DW staff Problems: Consultation Date/Type/Reason Admit Date/Time Apr 05, 2017 at 10:08 Initial Consult Date 04/04/17 Type of Consultation: ID Exam/Review of Systems Vital Signs Vitals Vital Signs Date Time Temp Pulse Resp B/P Pulse Ox O2 Delivery O2 Flow Rate FiO2 04/10/17 08:00 97.8 77 22 129/67 97 Intake and Output 04/09/17 04/09/17 04/10/17 14:59 22:59 06:59 Intake Total 5050 ml 1270 ml 520 ml Balance 5050 ml 1270 ml 520 ml Results Result Diagram: 04/09/17 0442 04/09/17 0442 Results 24 hrs Laboratory Tests Test 04/09/17 17:39 04/09/17 21:18 04/10/17 01:58 04/10/17 08:47 Bedside Glucose 233 H 217 161 132 Test 04/10/17 12:14 Bedside Glucose 182 Medications Medications Current Medications Cefepime HCl (Maxipime 1gm/50 ml (Pmx)) 50 ml @ 100 mls/hr Q12 IVPB Last administered on 04/10/17t 09:03; Admin Dose 100 MLS/HR; Start 04/04/17 at 09:00 Acetaminophen (Tylenol Tab) 650 mg Q6H PRN PO PAIN AND OR ELEVATED TEMP Last administered on 04/05/17 07:32; Admin Dose 650 MG; Start 04/04/17 at 06:30 Ondansetron HCl (Zofran Inj) 4 mg Q6H PRN IV NAUSEA AND/OR VOMITING; Start at 06:30 Diagnostic Test (Pha) (Accu-Chek) 1 ea 02 XX ; Start 04/05/17 at 02:00 Miscellaneous Information 1 ea NOTE XX ; Start 04/04/17 at 07:30 Glucose (Glutose) 15 gm Q15M PRN PO DECREASED GLUCOSE; Start 04/04/17 at 07:30 Glucose (Glutose) 22.5 gm Q15M PRN PO DECREASED GLUCOSE; Start 04/04/17 at 07: 30 Dextrose (D50w Syringe) 25 ml Q15M PRN IV DECREASED GLUCOSE; Start 04/04/17 at 07:30 Dextrose (D50w Syringe) 50 ml Q15M PRN IV DECREASED GLUCOSE; Start 04/04/17 at 07:30 Glucagon (Glucagen) 1 mg Q15M PRN IM DECREASED GLUCOSE; Start 04/04/17 at 07:30 Glucose (Glutose) 15 gm Q15M PRN BUCCAL DECREASED GLUCOSE; Start 04/04/17 at 07 :30 Collagenase (Santyl) 1 applic DAILY TOP Last administered on 04/10/17 09:18; Admin Dose 1 APPLIC; Start 04/04/17 at 09:00 Insulin Glargine (Lantus) 45 unit HS SC Last administered on 04/09/17 21:25; Admin Dose 45 UNIT; Start 04/04/17 at 21:00 Linagliptin (Tradjenta) 5 mg DAILY PO Last administered on 04/10/17 09:04; Admin Dose 5 MG; Start 04/04/17 at 09:00 Aspirin (Halfprin) 81 mg DAILY PO Last administered on 04/10/17 09:04; Admin Dose 81 MG; Start 04/04/17 at 09:00 Collagenase (Santyl) 1 applic DAILY PRN TOP WHEN SOILDED; Start 04/04/17 at 07: 30 Heparin Sodium (Porcine) (Heparin (5000 Units/0.5 ml)) 5,000 unit BID SC Last administered on 04/10/17 09:07; Admin Dose 5,000 UNIT; Start 04/05/17 at 21:00 Morphine Sulfate (morphine) 2 mg Q4H PRN IV 7-10 PAIN Last administered on 04/10 10:45; Admin Dose 2 MG; Start 04/05/17 at 17:00 Benzonatate 100 mg 100 mg TID PO Last administered on 04/10/17 12:23; Admin Dose 100 MG; Start 04/06/17 at 13:00 Vancomycin HCl/ Sodium Chloride (Vancocin/NS) 500 ml @ 125 mls/hr Q24H IVPB Last administered on 04/10/17 09:03; Admin Dose 125 MLS/HR; Start 04/08/17 at 08:00 Amlodipine Besylate (Norvasc) 2.5 mg DAILY PO Last administered on 04/10/17 09 :05; Admin Dose 2.5 MG; Start 04/08/17 at 09:00 Valsartan (Diovan) 40 mg BID PO Last administered on 04/10/17 09:05; Admin Dose 40 MG; Start 04/07/17 at 21:00 Terbinafine HCl (Lamisil) 250 mg BID PO Last administered on 04/10/17 09:04; Admin Dose 250 MG; Start 04/07/17 at 21:00; Stop 04/14/17 at 20:59 Acetylcysteine (Nac) 1,200 mg BID PO Last administered on 04/10/17 09:03; Admin Dose 1,200 MG; Start 04/07/17 at 21:00; Stop 04/11/17 at 20:59 Atorvastatin Calcium (Lipitor) 40 mg HS PO Last administered on 04/09/17 21:20 ; Admin Dose 40 MG; Start 04/08/17 at 21:00 Salmeterol Xinafoate/ Fluticasone (Advair 250/50 Diskus) 1 inh BID INH Last administered on 04/10/17 09:05; Admin Dose 1 INH; Start 04/09/17 at 09:00 Nystatin (Nystatin Powder) 1 applic BID TOP Last administered on 04/10/17 09: 29; Admin Dose 1 APPLIC; Start 04/09/17 at 13:00 Miscellaneous Information (*Rx Drug Level Order Reminder*) VANCOMYCIN TROUGH ON 03/21... ONCE ONCE XX ; Start 04/11/17 at 07:00; Stop 04/11/17 at 07:01 TORO ARMIJO NP Apr 10, 2017 14:42
[2017-04-10] MEDS: CEFTRIAXONE 1 GM/50 ML (PMX) 50 ML IVPB SCH (14:56)
[2017-04-10] MEDS ORDERED: ALTEPLASE (CATHFLO) 2 MG INJ CATHETER ONE ×2 (16:30→23:00)
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
[2017-04-10 20:13] VITALS: BP 197/91; RESP 16
[2017-04-10 20:31] VITALS: BP 171/83; PULSE 77
[2017-04-10] MEDS: ATORVASTATIN 40 MG TAB PO SCH (20:32)
[2017-04-10] MEDS: INSULIN GLARGINE [LANtus] 3 ML PEN SC SCH (20:43)
[2017-04-11] VITALS (11 sets, daily range): BP systolic 134–149; BP diastolic 63–75; PULSE 74–78; RESP 12–19
[2017-04-11] MEDS: TERBINAFINE 250 MG TAB PO SCH ×3 (00:22→21:18)
[2017-04-11] MEDS: SOD CHLORIDE 0.9% 1,000 ML IV SCH ×2 (00:27→13:20)
[2017-04-11] MEDS: ACCU-CHEK XX SCH (02:00)
[2017-04-11] MEDS: INSULIN ASPART [NOVOLOG] 3 ML PEN SC SCH ×7 (07:35→21:21)
[2017-04-11 07:45] LABS: CALCIUM 9.4 mg/dl (8.4-10.2); CREATININE 1.05 mg/dl (0.61-1.24); POTASSIUM 4.4 mmol/L (3.5-5.1)
[2017-04-11] MEDS: morphine 2 MG INJ IV PRN ×3 (08:05→19:31)
[2017-04-11] MEDS: BENZONATATE 100 MG CAP PO SCH ×4 (08:43→21:18)
[2017-04-11] MEDS: VANCOMYCIN 1.75 GM in NS 500 ML IVPB SCH (08:43)
[2017-04-11] MEDS: VALSARTAN 80 MG TAB PO SCH ×3 (08:43→21:18)
[2017-04-11] MEDS: ACETYLCYSTEINE 600 MG CAP PO SCH ×2 (08:43→08:50)
[2017-04-11] MEDS: LINAGLIPTIN 5 MG TABLET PO SCH ×2 (08:43→08:53)
[2017-04-11] MEDS: AMLODIPINE 2.5 MG TAB PO SCH ×2 (08:44→08:50)
[2017-04-11] MEDS: HEPARIN 5,000 UNIT/0.5 ML VIAL SC SCH ×2 (08:44→21:19)
[2017-04-11] MEDS: ASPIRIN (EC) 81 MG TAB PO SCH ×2 (08:44→08:50)
[2017-04-11] MEDS: COLLAGENASE 30 GM TUBE TOP SCH (08:44)
[2017-04-11] MEDS: NYSTATIN 30 GM POWDER BTL TOP SCH ×2 (08:45→21:29)
[2017-04-11] MEDS: SALMETEROL/FLUTICASONE 250/50 INHA INH SCH ×2 (08:46→21:18)
--- NOTE | 2017-04-11 12:23 | PN ---
Date/Time of Note Date/Time of Note DATE: 04/11/17 TIME: 12:21 Assessment/Plan VTE Prophylaxis VTE Prophylaxis Intervention: heparin Lines/Catheters IV [facility]ter Type (from [facility]): PICC Line Central line still needed: Yes Urinary Cath still in place: No Assessment/Plan Chief Complaint/Hosp Course 1. Extensive atherosclerotic disease of bilateral lower extremities with Left foot osteomyelitis and great toe diabetic ulcer. Failed outpatient therapy On 6 weeks IV antibiotics. -For angiography of lower extremity with possible intervention by vascular today. -Continue current IV antibiotics per ID recommendation- 2. Type 2 diabetes. With good glycemic control. Continue current regimen. 3. Essential hypertension. Continue current antihypertensives 4. Dyslipidemia. On statin 5. Bilateral lower extremities PAD with extensive atherosclerotic aortic disease. Continue aspirin. 6. History of cerebrovascular accident. No present issues 7.Tiny 6.5 mm micronodule in the anteromedial right upper lobe -Follow-up CT in 6 months to one year recommended. 8. Recent GBS bacteremia and sepsis. Currently no evidence of sepsis. Cultures negative. 9. Obesity. Weight reduction advised. DVT prophylaxis: Heparin subcutaneous Plan: For vascular intervention today.Hold metformin. Continue current medical management. Follow-up with vascular recommendation postprocedure. Case discussed with Problems: Subjective 24 Hr Interval Summary Free Text/Dictation No acute overnight episodes. For vascular intervention today. Exam/Review of Systems Vital Signs Vitals Vital Signs Date Time Temp Pulse Resp B/P Pulse Ox O2 Delivery O2 Flow Rate FiO2 04/11/17 08:16 98.2 73 19 144/70 93 Intake and Output 04/10/17 04/10/17 04/11/17 15:00 23:00 07:00 Intake Total 550 ml 760 ml 1097.5 ml Balance 550 ml 760 ml 1097.5 ml Exam General: Obese male in no acute distress. HEENT: Normocephalic, Atraumatic, No laceration or hematoma; Eyes: PEERL, Conjunctiva clear, Anicteric sclera Neck: Supple without any lymphadenopathy, nontender, no JVD, no carotid bruits, trachea midline, no thyromegaly Cardiac: S1, S2 auscultated, regular rhythm and rate, no mumurs or gallop Pulmonary: Normal respiratory effort. Chest clear to auscultation bilaterally, no adventitious breath sounds GI: Abdomen obese, soft, Non tender, non- distended, no masses, no rebound tenderness or guarding. Bowel sounds active on all four quadrants Genitourinary: Deferred Extremities: Necrotic toes with +Erythema /warmth/severe tenderness to the dorsum of the left foot Ulceration on left great toe. No pulsation appreciated on left DP.. Full ROM on all four extremities. No focal weakness appreciated. Neurologic: Alert to person, place, time, and situation. Affect appropriate, intact sensation. Skin: Clean,dry, and intact. No ecchymosis, no rashes, or lesions Results Result Diagram: 04/09/17 0442 04/11/17 0700 Results 24 hrs Laboratory Tests Test 04/10/17 17:24 04/10/17 20:22 04/11/17 02:45 04/11/17 07:00 Bedside Glucose 207 199 185 Sodium Level 138 Potassium Level 4.4 Chloride Level 107 Carbon Dioxide Level 22 Anion Gap 13 Blood Urea Nitrogen 16 Creatinine 1.05 Glucose Level 176 Calcium Level 9.4 Vancomycin Level Trough 14.8 Test 04/11/17 08:04 Bedside Glucose 165 Medications Medications Current Medications Acetaminophen (Tylenol Tab) 650 mg Q6H PRN PO PAIN AND OR ELEVATED TEMP Last administered on 04/05/17t 07:32; Admin Dose 650 MG; Start 04/04/17 at 06:30 Ondansetron HCl (Zofran Inj) 4 mg Q6H PRN IV NAUSEA AND/OR VOMITING; Start at 06:30 Diagnostic Test (Pha) (Accu-Chek) 1 ea 02 XX ; Start 04/05/17 at 02:00 Miscellaneous Information 1 ea NOTE XX ; Start 04/04/17 at 07:30 Glucose (Glutose) 15 gm Q15M PRN PO DECREASED GLUCOSE; Start 04/04/17 at 07:30 Glucose (Glutose) 22.5 gm Q15M PRN PO DECREASED GLUCOSE; Start 04/04/17 at 07: 30 Dextrose (D50w Syringe) 25 ml Q15M PRN IV DECREASED GLUCOSE; Start 04/04/17 at 07:30 Dextrose (D50w Syringe) 50 ml Q15M PRN IV DECREASED GLUCOSE; Start 04/04/17 at 07:30 Glucagon (Glucagen) 1 mg Q15M PRN IM DECREASED GLUCOSE; Start 04/04/17 at 07:30 Glucose (Glutose) 15 gm Q15M PRN BUCCAL DECREASED GLUCOSE; Start 04/04/17 at 07 :30 Collagenase (Santyl) 1 applic DAILY TOP Last administered on 04/11/17 08:44; Admin Dose 1 APPLIC; Start 04/04/17 at 09:00 Insulin Glargine (Lantus) 45 unit HS SC Last administered on 04/10/17 20:43; Admin Dose 45 UNIT; Start 04/04/17 at 21:00 Linagliptin (Tradjenta) 5 mg DAILY PO Last administered on 04/10/17 09:04; Admin Dose 5 MG; Start 04/04/17 at 09:00 Aspirin (Halfprin) 81 mg DAILY PO Last administered on 04/10/17 09:04; Admin Dose 81 MG; Start 04/04/17 at 09:00 Collagenase (Santyl) 1 applic DAILY PRN TOP WHEN SOILDED; Start 04/04/17 at 07: 30 Heparin Sodium (Porcine) (Heparin (5000 Units/0.5 ml)) 5,000 unit BID SC Last administered on 04/10/17 20:43; Admin Dose 5,000 UNIT; Start 04/05/17 at 21:00 Morphine Sulfate (morphine) 2 mg Q4H PRN IV 7-10 PAIN Last administered on 04/11 08:05; Admin Dose 2 MG; Start 04/05/17 at 17:00 Benzonatate 100 mg 100 mg TID PO Last administered on 04/10/17 20:31; Admin Dose 100 MG; Start 04/06/17 at 13:00 Vancomycin HCl/ Sodium Chloride (Vancocin/NS) 500 ml @ 125 mls/hr Q24H IVPB Last administered on 04/11/17 08:43; Admin Dose 125 MLS/HR; Start 04/08/17 at 08:00 Amlodipine Besylate (Norvasc) 2.5 mg DAILY PO Last administered on 04/10/17 09 :05; Admin Dose 2.5 MG; Start 04/08/17 at 09:00 Valsartan (Diovan) 40 mg BID PO Last administered on 04/10/17 20:31; Admin Dose 40 MG; Start 04/07/17 at 21:00 Terbinafine HCl (Lamisil) 250 mg BID PO Last administered on 04/11/17 00:22; Admin Dose 250 MG; Start 04/07/17 at 21:00; Stop 04/14/17 at 20:59 Acetylcysteine (Nac) 1,200 mg BID PO Last administered on 04/10/17 20:32; Admin Dose 1,200 MG; Start 04/07/17 at 21:00; Stop 04/11/17 at 20:59 Atorvastatin Calcium (Lipitor) 40 mg HS PO Last administered on 04/10/17 20:32 ; Admin Dose 40 MG; Start 04/08/17 at 21:00 Salmeterol Xinafoate/ Fluticasone (Advair 250/50 Diskus) 1 inh BID INH Last administered on 04/11/17 08:46; Admin Dose 1 INH; Start 04/09/17 at 09:00 Nystatin 1 applic 1 applic BID TOP Last administered on 04/10/17 20:40; Admin Dose 1 APPLIC; Start 04/09/17 at 13:00 Ceftriaxone Sodium 50 ml @ 100 mls/hr Q24H IVPB Last administered on 14:56; Admin Dose 100 MLS/HR; Start 04/10/17 at 15:00 Sodium Chloride (NS) 1,000 ml @ 75 mls/hr [id number] IV Last administered on 04/11 00:27; Admin Dose 75 MLS/HR; Start 04/11/17 at 00:00 BRANDON HERRERA NP Apr 11, 2017 12:22
[2017-04-11] MEDS: CEFTRIAXONE 1 GM/50 ML (PMX) 50 ML IVPB SCH (14:19)
[2017-04-11] MEDS ORDERED: HEPARIN 1000 UNITS/ML 10 ML INJ ONE (14:45)
[2017-04-11] MEDS ORDERED: IODIXANOL LOCM 100 ML BTL ONE (14:45)
[2017-04-11] MEDS ORDERED: LIDOCAINE 1% (MDV) 20 ML INJ ONE (14:45)
[2017-04-11] MEDS ORDERED: IODIXANOL LOCM 50 ML BTL ONE (14:45)
[2017-04-11] MEDS ORDERED: MIDAZOLAM 1 MG/ML 2 ML INJ ONE (14:46)
[2017-04-11] MEDS ORDERED: FENTAnyl 50 MCG/ML VIAL ONE (14:46)
[2017-04-11] MEDS ORDERED: SOD CHLORIDE 0.9% 500 ML ONE (14:48)
[2017-04-11] MEDS ORDERED: hydrALAzine 20 MG INJ ONE (15:51)
--- NOTE | 2017-04-11 16:01 | CONS ---
Date/Time of Note Date/Time of Note DATE: 04/11/17 TIME: 16:00 Assessment/Plan Assessment/Plan Chief Complaint/Hosp Course SUBJECTIVE: Patient is awake. Looks comfortable. No pain, no fevers ANTIMICROBIALS: Vancomycin, Rocephin. PHYSICAL EXAMINATION: GENERAL: Well-developed elderly man who is alert, in no distress. HEENT: Head atraumatic, normocephalic. Sclerae anicteric. Buccal mucosa pink. NECK: Supple. LUNGS: Chest rise symmetrical. Breath sounds diminished at the bases. Otherwise clear. HEART: S1, S2. ABDOMEN: Soft. Bowel sounds present. EXTREMITIES: Left foot great toe erythema. ASSESSMENT: 1. Left great toe osteomyelitis as per magnetic resonance imaging done on 03/17. 2. Status post streptococcal bacteremia on 03/15/2017. 3. Chronic obstructive pulmonary disease with a history of tobacco use. 4. Diabetes. 5. PVD PLAN: Remains stable. Continue abx. F/u vascular rec-s [facility] staff Problems: Consultation Date/Type/Reason Admit Date/Time Apr 05, 2017 at 10:08 Initial Consult Date 04/04/17 Type of Consultation: ID Exam/Review of Systems Vital Signs Vitals Vital Signs Date Time Temp Pulse Resp B/P Pulse Ox O2 Delivery O2 Flow Rate FiO2 04/11/17 14:33 98.0 72 19 149/72 95 Intake and Output 04/10/17 04/10/17 04/11/17 15:00 23:00 07:00 Intake Total 550 ml 760 ml 1097.5 ml Balance 550 ml 760 ml 1097.5 ml Results Result Diagram: 04/09/17 0442 04/11/17 0700 Results 24 hrs Laboratory Tests Test 04/10/17 17:24 04/10/17 20:22 04/11/17 02:45 04/11/17 07:00 Bedside Glucose 207 199 185 Sodium Level 138 Potassium Level 4.4 Chloride Level 107 Carbon Dioxide Level 22 Anion Gap 13 Blood Urea Nitrogen 16 Creatinine 1.05 Glucose Level 176 Calcium Level 9.4 Vancomycin Level Trough 14.8 Test 04/11/17 08:04 04/11/17 12:08 Bedside Glucose 165 157 Medications Medications Current Medications Acetaminophen (Tylenol Tab) 650 mg Q6H PRN PO PAIN AND OR ELEVATED TEMP Last administered on 04/05/17t 07:32; Admin Dose 650 MG; Start 04/04/17 at 06:30 Ondansetron HCl (Zofran Inj) 4 mg Q6H PRN IV NAUSEA AND/OR VOMITING; Start at 06:30 Diagnostic Test (Pha) (Accu-Chek) 1 ea 02 XX ; Start 04/05/17 at 02:00 Miscellaneous Information 1 ea NOTE XX ; Start 04/04/17 at 07:30 Glucose (Glutose) 15 gm Q15M PRN PO DECREASED GLUCOSE; Start 04/04/17 at 07:30 Glucose (Glutose) 22.5 gm Q15M PRN PO DECREASED GLUCOSE; Start 04/04/17 at 07: 30 Dextrose (D50w Syringe) 25 ml Q15M PRN IV DECREASED GLUCOSE; Start 04/04/17 at 07:30 Dextrose (D50w Syringe) 50 ml Q15M PRN IV DECREASED GLUCOSE; Start 04/04/17 at 07:30 Glucagon (Glucagen) 1 mg Q15M PRN IM DECREASED GLUCOSE; Start 04/04/17 at 07:30 Glucose (Glutose) 15 gm Q15M PRN BUCCAL DECREASED GLUCOSE; Start 04/04/17 at 07 :30 Collagenase (Santyl) 1 applic DAILY TOP Last administered on 04/11/17 08:44; Admin Dose 1 APPLIC; Start 04/04/17 at 09:00 Insulin Glargine (Lantus) 45 unit HS SC Last administered on 04/10/17 20:43; Admin Dose 45 UNIT; Start 04/04/17 at 21:00 Linagliptin (Tradjenta) 5 mg DAILY PO Last administered on 04/10/17 09:04; Admin Dose 5 MG; Start 04/04/17 at 09:00 Aspirin (Halfprin) 81 mg DAILY PO Last administered on 04/10/17 09:04; Admin Dose 81 MG; Start 04/04/17 at 09:00 Collagenase (Santyl) 1 applic DAILY PRN TOP WHEN SOILDED; Start 04/04/17 at 07: 30 Heparin Sodium (Porcine) (Heparin (5000 Units/0.5 ml)) 5,000 unit BID SC Last administered on 04/10/17 20:43; Admin Dose 5,000 UNIT; Start 04/05/17 at 21:00 Morphine Sulfate (morphine) 2 mg Q4H PRN IV 7-10 PAIN Last administered on 04/11 14:19; Admin Dose 2 MG; Start 04/05/17 at 17:00 Benzonatate 100 mg 100 mg TID PO Last administered on 04/10/17 20:31; Admin Dose 100 MG; Start 04/06/17 at 13:00 Vancomycin HCl/ Sodium Chloride (Vancocin/NS) 500 ml @ 125 mls/hr Q24H IVPB Last administered on 04/11/17 08:43; Admin Dose 125 MLS/HR; Start 04/08/17 at 08:00 Amlodipine Besylate (Norvasc) 2.5 mg DAILY PO Last administered on 04/10/17 09 :05; Admin Dose 2.5 MG; Start 04/08/17 at 09:00 Valsartan (Diovan) 40 mg BID PO Last administered on 04/10/17 20:31; Admin Dose 40 MG; Start 04/07/17 at 21:00 Terbinafine HCl (Lamisil) 250 mg BID PO Last administered on 04/11/17 00:22; Admin Dose 250 MG; Start 04/07/17 at 21:00; Stop 04/14/17 at 20:59 Acetylcysteine (Nac) 1,200 mg BID PO Last administered on 04/10/17 20:32; Admin Dose 1,200 MG; Start 04/07/17 at 21:00; Stop 04/11/17 at 20:59 Atorvastatin Calcium (Lipitor) 40 mg HS PO Last administered on 04/10/17 20:32 ; Admin Dose 40 MG; Start 04/08/17 at 21:00 Salmeterol Xinafoate/ Fluticasone (Advair 250/50 Diskus) 1 inh BID INH Last administered on 04/11/17 08:46; Admin Dose 1 INH; Start 04/09/17 at 09:00 Nystatin 1 applic 1 applic BID TOP Last administered on 04/10/17 20:40; Admin Dose 1 APPLIC; Start 04/09/17 at 13:00 Ceftriaxone Sodium 50 ml @ 100 mls/hr Q24H IVPB Last administered on 14:19; Admin Dose 100 MLS/HR; Start 04/10/17 at 15:00 Sodium Chloride (NS) 1,000 ml @ 75 mls/hr [id number] IV Last administered on 04/11t 00:27; Admin Dose 75 MLS/HR; Start 04/11/17 at 00:00 TORO ARMIJO NP Apr 11, 2017 16:01
[2017-04-11] MEDS ORDERED: SOD CHLORIDE 0.45% 1,000 ML IV SCH (16:09)
[2017-04-11] MEDS ORDERED: CLOPIDOGREL 75 MG TAB ONE (16:13)
--- NOTE | 2017-04-11 16:14 | HPN ---
Date/Time of Note Date/Time of Note DATE: 04/11/17 TIME: 16:14 Interval H&P Admission Note Pt. seen H&P reviewed: No system changes DANIS PHILIPPE MD Apr 11, 2017 16:14
--- NOTE | 2017-04-11 16:16 | SIPON ---
Date/Time of Note Date/Time of Note DATE: 04/11/17 TIME: 16:14 Operative Report Preoperative Diagnosis LLE NON-HEALING ULCER Postoperative Diagnosis SAME Operation/Procedure Performed AORTOILIAC ANGIOGRAM LLE ANGIOGRAM FEMPOP STENTING AND ANGIOPLASTY LEFT PERONEAL AND TPT ANGIOPLASTY Anesthesia Type: moderate sedation Estimated Blood Loss: minimal Transfusion Required: no Specimen: none Grafts/Implants INNOVA STENT [id number] STENT Complications: no DANIS PHILIPPE MD Apr 11, 2017 16:16
[2017-04-11] MEDS ORDERED: ONDANSETRON 4 MG INJ IV PRN (16:30)
--- NOTE | 2017-04-11 17:12 | OPR ---
DATE OF OPERATION: 04/11/2017 SURGEON: Mo Vizcaino MD PREOPERATIVE DIAGNOSIS: Left lower extremity first toe nonhealing ulcer. POSTOPERATIVE DIAGNOSIS: Left lower extremity first toe nonhealing ulcer. ANESTHESIA: Local with sedation. ESTIMATED BLOOD LOSS: Minimal. COMPLICATIONS: None. HEPARIN: 5000 units intravenously. CONTRAST: As recorded. ACCESS: Right common femoral artery 6-Argentine sheath. CLOSURE: Manual compression and Angio-Seal closure device. SEDATION: Under physician's supervision, moderate sedation was administered intravenously under continuous monitoring by the interventional team and attending physician. Pulse oximeter, heart rate and blood pressures were continuously monitored by interventional surgeon. The physician spent time was 90 minutes of [id number] sedation time with the patient. INDICATION: This is a 61-year-old poorly controlled diabetic gentleman who presented with left lower extremity diabetic foot infection of the first and second toe with a nonhealing ulcer at the plantar aspect of the first toe. The patient underwent noninvasive vascular studies which identified patient having significant infrainguinal disease with areas of stenosis in the popliteal artery and infrapopliteal disease. Upon discussing the alternatives, risks and benefits of angiogram, balloon angioplasty, stenting and arthrectomy, the patient understood all the risks including but not limited to, bleeding, thrombosis, embolization, myocardial infarction, , device malfunction, infection, stroke, nephrotoxic. Patient has agreed to proceed. OPERATION PERFORMED: 1. Ultrasound-guided access of the right common femoral artery 2. Aortoiliac angiogram. 3. Third order selection of the left common femoral artery and left lower extremity angiogram. 4. Left tibioperoneal trunk balloon angioplasty with a 2.5 by 220 mm [place] balloon. 5. Left femoral popliteal artery stenting with a 6 mm x 150 mm Innova stent. 6. Left femoral popliteal artery balloon angioplasty with a 6 mm x 150 mm balloon. OPERATIVE FINDINGS AT SURGERY: 1. Bilateral renal arteries are patent with mild to moderate stenosis of the right renal artery. 2. Infrarenal aorta is patent with moderate calcification. 3. Bilateral common iliac, external iliac, internal iliac arteries are patent and tortuous. 4. Right common femoral artery is patent. 5. Right proximal superficial femoral artery is patent. 6. Right proximal profunda femoral artery is patent. 7. Left common femoral artery is patent. 8. Left profunda femoral artery is patent. 9. Left superficial femoral artery is patent with moderate disease and calcification in the distal aspect. 10. Left above knee popliteal artery with areas of significant calcification and stenosis in the adductor canal and an area of focal ulceration in the mid aspect. Part of the artery also seem to be ectatic. 11. Left at knee popliteal artery with [id number] disease. 12. Left below-knee popliteal artery is patent. 13. Left anterior tibial artery is occluded. 14. Left tibioperoneal trunk patent with mild disease. 15. Left peroneal artery patent with moderate disease in the mid aspect and moderate severe disease in the distal aspect. 16. Left posterior tibial artery is patent. 17. Left distal peroneal artery occludes at the ankle. Nonvisualization of the anterior posterior communicating branches. 18. Left common plantar artery is patent. 19. Left lateral medial plantar arteries are patent. 20. Left dorsalis pedis artery is not visualized. OPERATIVE PROCEDURE: The patient was brought into the angio suite and positioned supine position on fluoroscopic table. Sedation was administered without complications. The right groin was shaved, prepped, and draped in usual standard sterile fashion. Time-out and appropriate site was marked and confirmed. Local anesthesia was then infiltrated in the region of the right common femoral artery. The artery was then cannulated with a micro access needle under ultrasound guidance and a guidewire was advanced into the iliac artery under fluoroscopic guidance. The needle was then removed and a micro catheter was then placed. A OneFineMealson wire was then passed into the infrarenal aorta under fluoroscopic guidance, followed by a short 5-Argentine sheath over the wire. The sheath was then appropriately flushed with heparinized saline solution. An Omni Flush catheter was then passed into the suprarenal aorta and aortoiliac angiogram was then performed. Findings are noted above. At this point, Omni Flush catheter was used to select the left common femoral artery in a 3rd order selection. A left lower extremity angiogram was then performed. Findings are noted above. At this point, we decided to intervene in the left peroneal artery as the patient has had a nonhealing left first toe ulcer. Therefore, we went ahead and we exchanged our short sheath with a Destination 6- Argentine sheath that was placed in the common femoral artery. At this point, using an Clarisa cross guiding catheter and glide wire, we selected the left peroneal artery. The glide wire was then exchanged to a 014 wire and balloon angioplasty of the peroneal artery was performed using a 2.5 x 220 mm [place] balloon. Following our angioplasty, the proximal aspect of the peroneal artery and tibioperoneal trunk balloon angioplasty was also performed. Attention was then turned to our femoral popliteal segment in which there was area of a moderate disease with a focal ulceration and calcification which was worrisome for possible embolization with just balloon angioplasty. Therefore, decision was made to place an Innova stent measuring 6 mm x 150 mm. After deployment of our stent, we went ahead and performed balloon angioplasty with a 6 x 150 mm balloon and completion angiogram identified in-line flow without any flow-limiting stenosis all the way down to the ankle. At this point, I went ahead and removed all catheters, sheaths and wires. Angio-Seal closure device was used to deploy in the right common femoral artery. The patient tolerated the procedure well, was taken to the postanesthesia care unit in stable condition. All instrument, sponge, needle counts, and catheters were correct x2. Dictated By: Mo Vizcaino MD /augusto/dave /Document#: [id number]
[2017-04-11] MEDS: ATORVASTATIN 40 MG TAB PO SCH (21:17)
[2017-04-11] MEDS: INSULIN GLARGINE [LANtus] 3 ML PEN SC SCH (21:40)
[2017-04-11] MEDS: ACETAMINOPHEN 325 MG TAB PO PRN (21:46)
--- NOTE | 2017-04-11 23:47 | PN ---
Date/Time of Note Date/Time of Note DATE: 04/11/17 TIME: 23:47 Assessment/Plan Lines/Catheters IV Catheter Type (from [facility]): PICC Line Hooks in Place (from [facility]): No Exam/Review of Systems Vital Signs Vitals Vital Signs Date Time Temp Pulse Resp B/P Pulse Ox O2 Delivery O2 Flow Rate FiO2 04/11/17 19:45 98.1 93 18 148/75 93 04/11/17 16:58 Room Air Intake and Output 04/10/17 04/10/17 04/11/17 15:00 23:00 07:00 Intake Total 550 ml 760 ml 1097.5 ml Balance 550 ml 760 ml 1097.5 ml Results Result Diagram: 04/09/17 0442 04/11/17 0700 CHARLY ALVAREZ DPM Apr 11, 2017 23:47
[2017-04-12] MEDS: ACCU-CHEK XX SCH (01:54)
[2017-04-12 02:13] VITALS: BP 152/72; RESP 20
[2017-04-12] MEDS: INSULIN ASPART [NOVOLOG] 3 ML PEN SC SCH ×7 (07:30→21:00)
[2017-04-12 08:10] VITALS: BP 170/84; RESP 19
[2017-04-12] MEDS: morphine 2 MG INJ IV PRN ×5 (08:25→21:41)
[2017-04-12] MEDS: SALMETEROL/FLUTICASONE 250/50 INHA INH SCH ×2 (08:29→21:08)
[2017-04-12] MEDS: LINAGLIPTIN 5 MG TABLET PO SCH (08:30)
[2017-04-12] MEDS: CLOPIDOGREL 75 MG TAB PO SCH (08:31)
[2017-04-12] MEDS: VALSARTAN 80 MG TAB PO SCH ×2 (08:31→21:09)
[2017-04-12] MEDS: AMLODIPINE 2.5 MG TAB PO SCH (08:31)
[2017-04-12] MEDS: TERBINAFINE 250 MG TAB PO SCH ×2 (08:31→22:19)
[2017-04-12] MEDS: ASPIRIN (EC) 81 MG TAB PO SCH (08:31)
[2017-04-12] MEDS: BENZONATATE 100 MG CAP PO SCH ×3 (08:32→21:10)
[2017-04-12] MEDS: HEPARIN 5,000 UNIT/0.5 ML VIAL SC SCH ×2 (08:34→21:17)
[2017-04-12] MEDS: VANCOMYCIN 1.75 GM in NS 500 ML IVPB SCH (08:41)
[2017-04-12] MEDS: COLLAGENASE 30 GM TUBE TOP SCH (09:30)
[2017-04-12] MEDS: NYSTATIN 30 GM POWDER BTL TOP SCH ×2 (09:30→21:44)
--- NOTE | 2017-04-12 10:23 | PN ---
Date/Time of Note Date/Time of Note DATE: 04/12/17 TIME: 10:19 Assessment/Plan VTE Prophylaxis VTE Prophylaxis Intervention: heparin Lines/Catheters IV Catheter Type (from [facility]): PICC Line Central line still needed: Yes Urinary Cath still in place: No Assessment/Plan Chief Complaint/Hosp Course 1. Extensive atherosclerotic disease of bilateral lower extremities with Left foot osteomyelitis and great toe diabetic ulcer. Failed outpatient therapy On 6 weeks IV antibiotics. -Status post LLE BALLOON ANGIOPLASTY WITH FEM-POP STENTING on 04/11/17 -Continue wound care, vascular checks and current IV antibiotics 2. Type 2 diabetes. With good glycemic control. Continue current regimen. 3. Essential hypertension. Continue current antihypertensives 4. Dyslipidemia. On statin 5. Bilateral lower extremities PAD with extensive atherosclerotic aortic disease. Continue aspirin. 6. History of cerebrovascular accident. No present issues 7.Tiny 6.5 mm micronodule in the anteromedial right upper lobe -Follow-up CT in 6 months to one year recommended. 8. Recent GBS bacteremia and sepsis. Currently no evidence of sepsis. Cultures negative. 9. Obesity. Weight reduction advised. DVT prophylaxis: Heparin subcutaneous Plan:Follow-up with vascular and podiatry recommendation postprocedure.Abx managed per ID. Case discussed with Problems: Subjective 24 Hr Interval Summary Free Text/Dictation Status post vascular intervention.Doing well.Tolerates diet. Exam/Review of Systems Vital Signs Vitals Vital Signs Date Time Temp Pulse Resp B/P Pulse Ox O2 Delivery O2 Flow Rate FiO2 04/12/17 08:10 98.1 78 19 170/84 97 04/11/17 16:58 Room Air Intake and Output 04/11/17 04/11/17 04/12/17 15:00 23:00 07:00 Intake Total 850 ml 120 ml 1165 ml Balance 850 ml 120 ml 1165 ml Exam General: Obese male in no acute distress. HEENT: Normocephalic, Atraumatic, No laceration or hematoma; Eyes: PEERL, Conjunctiva clear, Anicteric sclera Neck: Supple without any lymphadenopathy, nontender, no JVD, no carotid bruits, trachea midline, no thyromegaly Cardiac: S1, S2 auscultated, regular rhythm and rate, no mumurs or gallop Pulmonary: Normal respiratory effort. Chest clear to auscultation bilaterally, no adventitious breath sounds GI: Abdomen obese, soft, Non tender, non- distended, no masses, no rebound tenderness or guarding. Bowel sounds active on all four quadrants Genitourinary: Deferred Extremities: Necrotic left great toe with ulceration-dressing intact. No pulsation appreciated on left DP.. Full ROM on all four extremities. No focal weakness appreciated. Neurologic: Alert to person, place, time, and situation. Affect appropriate, intact sensation. Skin: Clean,dry, and intact. No ecchymosis, no rashes, or lesions Results Result Diagram: 04/09/17 0442 04/11/17 0700 Results 24 hrs Laboratory Tests Test 04/11/17 12:08 04/11/17 17:42 04/11/17 21:08 04/12/17 01:46 Bedside Glucose 157 119 222 H 216 Medications Medications Current Medications Acetaminophen (Tylenol Tab) 650 mg Q6H PRN PO PAIN AND OR ELEVATED TEMP Last administered on 04/11/17 21:46; Admin Dose 650 MG; Start 04/04/17 at 06:30 Diagnostic Test (Pha) (Accu-Chek) 1 ea 02 XX ; Start 04/05/17 at 02:00 Miscellaneous Information 1 ea NOTE XX ; Start 04/04/17 at 07:30 Glucose (Glutose) 15 gm Q15M PRN PO DECREASED GLUCOSE; Start 04/04/17 at 07:30 Glucose (Glutose) 22.5 gm Q15M PRN PO DECREASED GLUCOSE; Start 04/04/17 at 07: 30 Dextrose (D50w Syringe) 25 ml Q15M PRN IV DECREASED GLUCOSE; Start 04/04/17 at 07:30 Dextrose (D50w Syringe) 50 ml Q15M PRN IV DECREASED GLUCOSE; Start 04/04/17 at 07:30 Glucagon (Glucagen) 1 mg Q15M PRN IM DECREASED GLUCOSE; Start 04/04/17 at 07:30 Glucose (Glutose) 15 gm Q15M PRN BUCCAL DECREASED GLUCOSE; Start 04/04/17 at 07 :30 Collagenase (Santyl) 1 applic DAILY TOP Last administered on 04/12/17 09:30; Admin Dose 1 APPLIC; Start 04/04/17 at 09:00 Insulin Glargine (Lantus) 45 unit HS SC Last administered on 04/11/17 21:40; Admin Dose 45 UNIT; Start 04/04/17 at 21:00 Linagliptin (Tradjenta) 5 mg DAILY PO Last administered on 04/12/17 08:30; Admin Dose 5 MG; Start 04/04/17 at 09:00 Aspirin (Halfprin) 81 mg DAILY PO Last administered on 04/12/17 08:31; Admin Dose 81 MG; Start 04/04/17 at 09:00 Collagenase (Santyl) 1 applic DAILY PRN TOP WHEN SOILDED Last administered on 21:29; Admin Dose 1 APPLIC; Start 04/04/17 at 07:30 Heparin Sodium (Porcine) (Heparin (5000 Units/0.5 ml)) 5,000 unit BID SC Last administered on 04/12/17 08:34; Admin Dose 5,000 UNIT; Start 04/05/17 at 21:00 Morphine Sulfate (morphine) 2 mg Q4H PRN IV 7-10 PAIN Last administered on 04/12 08:25; Admin Dose 2 MG; Start 04/05/17 at 17:00 Benzonatate 100 mg 100 mg TID PO Last administered on 04/12/17 08:32; Admin Dose 100 MG; Start 04/06/17 at 13:00 Vancomycin HCl/ Sodium Chloride (Vancocin/NS) 500 ml @ 125 mls/hr Q24H IVPB Last administered on 04/12/17 08:41; Admin Dose 125 MLS/HR; Start 04/08/17 at 08:00 Amlodipine Besylate (Norvasc) 2.5 mg DAILY PO Last administered on 04/12/17 08 :31; Admin Dose 2.5 MG; Start 04/08/17 at 09:00 Valsartan (Diovan) 40 mg BID PO Last administered on 04/12/17 08:31; Admin Dose 40 MG; Start 04/07/17 at 21:00 Terbinafine HCl (Lamisil) 250 mg BID PO Last administered on 04/12/17 08:31; Admin Dose 250 MG; Start 04/07/17 at 21:00; Stop 04/14/17 at 20:59 Atorvastatin Calcium (Lipitor) 40 mg HS PO Last administered on 04/11/17 21:17 ; Admin Dose 40 MG; Start 04/08/17 at 21:00 Salmeterol Xinafoate/ Fluticasone (Advair 250/50 Diskus) 1 inh BID INH Last administered on 04/12/17 08:29; Admin Dose 1 INH; Start 04/09/17 at 09:00 Nystatin 1 applic 1 applic BID TOP Last administered on 04/12/17 09:30; Admin Dose 1 APPLIC; Start 04/09/17 at 13:00 Ceftriaxone Sodium (Rocephin) 50 ml @ 100 mls/hr Q24H IVPB Last administered on 04/11/17 14:19; Admin Dose 100 MLS/HR; Start 04/10/17 at 15:00 Ondansetron HCl (Zofran Inj) 4 mg Q4H PRN IV NAUSEA AND/OR VOMITING; Start at 16:30 Clopidogrel Bisulfate (plaVIX) 75 mg DAILY PO Last administered on 04/12/17 08 :31; Admin Dose 75 MG; Start 04/12/17 at 09:00 BRANDON HERRERA NP Apr 12, 2017 10:23
--- NOTE | 2017-04-12 13:53 | CONS ---
Date/Time of Note Date/Time of Note DATE: 04/12/17 TIME: 13:51 Assessment/Plan Assessment/Plan Chief Complaint/Hosp Course SUBJECTIVE: No acute changes, awake, scheduled for procedure today, no fevers, nad ANTIMICROBIALS: Vancomycin, Rocephin. PHYSICAL EXAMINATION: GENERAL: Well-developed elderly man who is alert, in no distress. HEENT: Head atraumatic, normocephalic. Sclerae anicteric. Buccal mucosa pink. NECK: Supple. LUNGS: Chest rise symmetrical. Breath sounds diminished at the bases. Otherwise clear. HEART: S1, S2. ABDOMEN: Soft. Bowel sounds present. EXTREMITIES: Left foot great toe erythema. ASSESSMENT: 1. Left great toe osteomyelitis as per magnetic resonance imaging done on 03/17. 2. Status post streptococcal bacteremia on 03/15/2017. 3. Chronic obstructive pulmonary disease with a history of tobacco use. 4. Diabetes. 5. PVD PLAN: Remains stable. Continue abx. Pending angiogram DW staff Problems: Consultation Date/Type/Reason Admit Date/Time Apr 05, 2017 at 10:08 Initial Consult Date 04/04/17 Type of Consultation: ID Exam/Review of Systems Vital Signs Vitals Vital Signs Date Time Temp Pulse Resp B/P Pulse Ox O2 Delivery O2 Flow Rate FiO2 04/12/17 08:10 98.1 78 19 170/84 97 04/11/17 16:58 Room Air Intake and Output 04/11/17 04/11/17 04/12/17 15:00 23:00 07:00 Intake Total 850 ml 120 ml 1165 ml Balance 850 ml 120 ml 1165 ml Results Result Diagram: 04/09/17 0442 04/11/17 0700 Results 24 hrs Laboratory Tests Test 04/11/17 17:42 04/11/17 21:08 04/12/17 01:46 Bedside Glucose 119 222 H 216 Medications Medications Current Medications Acetaminophen (Tylenol Tab) 650 mg Q6H PRN PO PAIN AND OR ELEVATED TEMP Last administered on 04/11/17t 21:46; Admin Dose 650 MG; Start 04/04/17 at 06:30 Diagnostic Test (Pha) (Accu-Chek) 1 ea 02 XX ; Start 04/05/17 at 02:00 Miscellaneous Information 1 ea NOTE XX ; Start 04/04/17 at 07:30 Glucose (Glutose) 15 gm Q15M PRN PO DECREASED GLUCOSE; Start 04/04/17 at 07:30 Glucose (Glutose) 22.5 gm Q15M PRN PO DECREASED GLUCOSE; Start 04/04/17 at 07: 30 Dextrose (D50w Syringe) 25 ml Q15M PRN IV DECREASED GLUCOSE; Start 04/04/17 at 07:30 Dextrose (D50w Syringe) 50 ml Q15M PRN IV DECREASED GLUCOSE; Start 04/04/17 at 07:30 Glucagon (Glucagen) 1 mg Q15M PRN IM DECREASED GLUCOSE; Start 04/04/17 at 07:30 Glucose (Glutose) 15 gm Q15M PRN BUCCAL DECREASED GLUCOSE; Start 04/04/17 at 07 :30 Collagenase (Santyl) 1 applic DAILY TOP Last administered on 04/12/17 09:30; Admin Dose 1 APPLIC; Start 04/04/17 at 09:00 Insulin Glargine (Lantus) 45 unit HS SC Last administered on 04/11/17 21:40; Admin Dose 45 UNIT; Start 04/04/17 at 21:00 Linagliptin (Tradjenta) 5 mg DAILY PO Last administered on 04/12/17 08:30; Admin Dose 5 MG; Start 04/04/17 at 09:00 Aspirin (Halfprin) 81 mg DAILY PO Last administered on 04/12/17 08:31; Admin Dose 81 MG; Start 04/04/17 at 09:00 Collagenase (Santyl) 1 applic DAILY PRN TOP WHEN SOILDED Last administered on 21:29; Admin Dose 1 APPLIC; Start 04/04/17 at 07:30 Heparin Sodium (Porcine) (Heparin (5000 Units/0.5 ml)) 5,000 unit BID SC Last administered on 04/12/17 08:34; Admin Dose 5,000 UNIT; Start 04/05/17 at 21:00 Morphine Sulfate (morphine) 2 mg Q4H PRN IV 7-10 PAIN Last administered on 04/12 12:39; Admin Dose 2 MG; Start 04/05/17 at 17:00 Benzonatate 100 mg 100 mg TID PO Last administered on 04/12/17 13:39; Admin Dose 100 MG; Start 04/06/17 at 13:00 Vancomycin HCl/ Sodium Chloride (Vancocin/NS) 500 ml @ 125 mls/hr Q24H IVPB Last administered on 04/12/17 08:41; Admin Dose 125 MLS/HR; Start 04/08/17 at 08:00 Amlodipine Besylate (Norvasc) 2.5 mg DAILY PO Last administered on 04/12/17 08 :31; Admin Dose 2.5 MG; Start 04/08/17 at 09:00 Valsartan (Diovan) 40 mg BID PO Last administered on 04/12/17 08:31; Admin Dose 40 MG; Start 04/07/17 at 21:00 Terbinafine HCl (Lamisil) 250 mg BID PO Last administered on 04/12/17 08:31; Admin Dose 250 MG; Start 04/07/17 at 21:00; Stop 04/14/17 at 20:59 Atorvastatin Calcium (Lipitor) 40 mg HS PO Last administered on 04/11/17 21:17 ; Admin Dose 40 MG; Start 04/08/17 at 21:00 Salmeterol Xinafoate/ Fluticasone (Advair 250/50 Diskus) 1 inh BID INH Last administered on 04/12/17 08:29; Admin Dose 1 INH; Start 04/09/17 at 09:00 Nystatin 1 applic 1 applic BID TOP Last administered on 04/12/17 09:30; Admin Dose 1 APPLIC; Start 04/09/17 at 13:00 Ceftriaxone Sodium (Rocephin) 50 ml @ 100 mls/hr Q24H IVPB Last administered on 04/11/17 14:19; Admin Dose 100 MLS/HR; Start 04/10/17 at 15:00 Ondansetron HCl (Zofran Inj) 4 mg Q4H PRN IV NAUSEA AND/OR VOMITING; Start at 16:30 Clopidogrel Bisulfate (plaVIX) 75 mg DAILY PO Last administered on 04/12/17 08 :31; Admin Dose 75 MG; Start 04/12/17 at 09:00 TORO ARMIJO NP Apr 12, 2017 13:53
[2017-04-12 14:13] VITALS: BP 147/77; RESP 19
[2017-04-12] MEDS: CEFTRIAXONE 1 GM/50 ML (PMX) 50 ML IVPB SCH (15:51)
[2017-04-12 19:33] VITALS: BP 134/63; RESP 20
[2017-04-12] MEDS: ATORVASTATIN 40 MG TAB PO SCH (21:09)
[2017-04-12] MEDS: INSULIN GLARGINE [LANtus] 3 ML PEN SC SCH (21:17)
[2017-04-13 01:53] VITALS: BP 142/71; RESP 18
[2017-04-13] MEDS: ACCU-CHEK XX SCH (02:00)
[2017-04-13 05:39] LABS: CREATININE 0.98 mg/dl (0.61-1.24)
--- NOTE | 2017-04-13 07:46 | PN ---
Date/Time of Note Date/Time of Note DATE: 04/13/17 TIME: 07:44 Assessment/Plan VTE Prophylaxis VTE Prophylaxis Intervention: heparin Lines/Catheters IV Catheter Type (from Nrs): PICC Line Central line still needed: Yes Urinary Cath still in place: No Assessment/Plan Chief Complaint/Hosp Course 1. Extensive atherosclerotic disease of bilateral lower extremities with Left foot osteomyelitis and great toe diabetic ulcer. Failed outpatient therapy On 6 weeks IV antibiotics. -Status post LLE BALLOON ANGIOPLASTY WITH FEM-POP STENTING on 04/11/17 -Recommend ASA/Plavix x 90 days. -Continue wound care, vascular checks and current IV antibiotics 2. Type 2 diabetes. With good glycemic control. Continue current regimen. 3. Essential hypertension. Continue current antihypertensives 4. Dyslipidemia. On statin 5. Bilateral lower extremities PAD with extensive atherosclerotic aortic disease. Continue aspirin. 6. History of cerebrovascular accident. No present issues 7.Tiny 6.5 mm micronodule in the anteromedial right upper lobe -Follow-up CT in 6 months to one year recommended. 8. Recent GBS bacteremia and sepsis. Currently no evidence of sepsis. Cultures negative. 9. Obesity. Weight reduction advised. DVT prophylaxis: Heparin subcutaneous Plan:After discussion with , patient needs ASA/Plavix for 90 days with vascular follow-up in 2weeks. No need for amputation at this point. ID to determine antibiotic for another 2 weeks recommended by vascular. DC planning once ID determine the abx of choice with duration. Case discussed with Problems: Subjective 24 Hr Interval Summary Free Text/Dictation No acute episodes. Having pain on Left foot. Exam/Review of Systems Vital Signs Vitals Vital Signs Date Time Temp Pulse Resp B/P Pulse Ox O2 Delivery O2 Flow Rate FiO2 04/13/17 01:53 98.1 74 18 142/71 93 04/11/17 16:58 Room Air Intake and Output 04/12/17 04/12/17 04/13/17 15:00 23:00 07:00 Intake Total 500 ml 1290 ml 300 ml Balance 500 ml 1290 ml 300 ml Exam General: Obese male in no acute distress. HEENT: Normocephalic, Atraumatic, No laceration or hematoma; Eyes: PEERL, Conjunctiva clear, Anicteric sclera Neck: Supple without any lymphadenopathy, nontender, no JVD, no carotid bruits, trachea midline, no thyromegaly Cardiac: S1, S2 auscultated, regular rhythm and rate, no mumurs or gallop Pulmonary: Normal respiratory effort. Chest clear to auscultation bilaterally, no adventitious breath sounds GI: Abdomen obese, soft, Non tender, non- distended, no masses, no rebound tenderness or guarding. Bowel sounds active on all four quadrants Genitourinary: Deferred Extremities: Necrotic left great toe with ulceration-dressing intact. No pulsation appreciated on left DP.. Full ROM on all four extremities. No focal weakness appreciated. Neurologic: Alert to person, place, time, and situation. Affect appropriate, intact sensation. Skin: Clean,dry, and intact. No ecchymosis, no rashes, or lesions Results Result Diagram: 04/09/17 0442 04/13/17 0451 Results 24 hrs Laboratory Tests Test 04/12/17 17:32 04/12/17 21:14 04/13/17 04:51 Bedside Glucose 134 146 Blood Urea Nitrogen 16 Creatinine 0.98 Medications Medications Current Medications Acetaminophen (Tylenol Tab) 650 mg Q6H PRN PO PAIN AND OR ELEVATED TEMP Last administered on 04/11/17 21:46; Admin Dose 650 MG; Start 04/04/17 at 06:30 Diagnostic Test (Pha) (Accu-Chek) 1 ea 02 XX ; Start 04/05/17 at 02:00 Miscellaneous Information 1 ea NOTE XX ; Start 04/04/17 at 07:30 Glucose (Glutose) 15 gm Q15M PRN PO DECREASED GLUCOSE; Start 04/04/17 at 07:30 Glucose (Glutose) 22.5 gm Q15M PRN PO DECREASED GLUCOSE; Start 04/04/17 at 07: 30 Dextrose (D50w Syringe) 25 ml Q15M PRN IV DECREASED GLUCOSE; Start 04/04/17 at 07:30 Dextrose (D50w Syringe) 50 ml Q15M PRN IV DECREASED GLUCOSE; Start 04/04/17 at 07:30 Glucagon (Glucagen) 1 mg Q15M PRN IM DECREASED GLUCOSE; Start 04/04/17 at 07:30 Glucose (Glutose) 15 gm Q15M PRN BUCCAL DECREASED GLUCOSE; Start 04/04/17 at 07 :30 Collagenase (Santyl) 1 applic DAILY TOP Last administered on 04/12/17 09:30; Admin Dose 1 APPLIC; Start 04/04/17 at 09:00 Insulin Glargine (Lantus) 45 unit HS SC Last administered on 04/12/17 21:17; Admin Dose 45 UNIT; Start 04/04/17 at 21:00 Linagliptin (Tradjenta) 5 mg DAILY PO Last administered on 04/12/17 08:30; Admin Dose 5 MG; Start 04/04/17 at 09:00 Aspirin (Halfprin) 81 mg DAILY PO Last administered on 04/12/17 08:31; Admin Dose 81 MG; Start 04/04/17 at 09:00 Collagenase (Santyl) 1 applic DAILY PRN TOP WHEN SOILDED Last administered on 21:29; Admin Dose 1 APPLIC; Start 04/04/17 at 07:30 Heparin Sodium (Porcine) (Heparin (5000 Units/0.5 ml)) 5,000 unit BID SC Last administered on 04/12/17 21:17; Admin Dose 5,000 UNIT; Start 04/05/17 at 21:00 Morphine Sulfate (morphine) 2 mg Q4H PRN IV 7-10 PAIN Last administered on 04/12 21:41; Admin Dose 2 MG; Start 04/05/17 at 17:00 Benzonatate 100 mg 100 mg TID PO Last administered on 04/12/17 21:10; Admin Dose 100 MG; Start 04/06/17 at 13:00 Vancomycin HCl/ Sodium Chloride (Vancocin/NS) 500 ml @ 125 mls/hr Q24H IVPB Last administered on 04/12/17 08:41; Admin Dose 125 MLS/HR; Start 04/08/17 at 08:00 Amlodipine Besylate (Norvasc) 2.5 mg DAILY PO Last administered on 04/12/17 08 :31; Admin Dose 2.5 MG; Start 04/08/17 at 09:00 Valsartan (Diovan) 40 mg BID PO Last administered on 04/12/17 21:09; Admin Dose 40 MG; Start 04/07/17 at 21:00 Terbinafine HCl (Lamisil) 250 mg BID PO Last administered on 04/12/17 22:19; Admin Dose 250 MG; Start 04/07/17 at 21:00; Stop 04/14/17 at 20:59 Atorvastatin Calcium (Lipitor) 40 mg HS PO Last administered on 04/12/17 21:09 ; Admin Dose 40 MG; Start 04/08/17 at 21:00 Salmeterol Xinafoate/ Fluticasone (Advair 250/50 Diskus) 1 inh BID INH Last administered on 04/12/17 21:08; Admin Dose 1 INH; Start 04/09/17 at 09:00 Nystatin 1 applic 1 applic BID TOP Last administered on 04/12/17 21:44; Admin Dose 1 APPLIC; Start 04/09/17 at 13:00 Ceftriaxone Sodium (Rocephin) 50 ml @ 100 mls/hr Q24H IVPB Last administered on 04/12/17 15:51; Admin Dose 100 MLS/HR; Start 04/10/17 at 15:00 Ondansetron HCl (Zofran Inj) 4 mg Q4H PRN IV NAUSEA AND/OR VOMITING; Start at 16:30 Clopidogrel Bisulfate (plaVIX) 75 mg DAILY PO Last administered on 04/12/17 08 :31; Admin Dose 75 MG; Start 04/12/17 at 09:00 BRANDON HERRERA NP Apr 13, 2017 07:46
[2017-04-13 07:54] VITALS: BP 140/63; RESP 16
[2017-04-13] MEDS: INSULIN ASPART [NOVOLOG] 3 ML PEN SC SCH ×7 (08:00→20:30)
[2017-04-13] MEDS: morphine 2 MG INJ IV PRN ×4 (08:01→20:32)
[2017-04-13] MEDS: LINAGLIPTIN 5 MG TABLET PO SCH (08:41)
[2017-04-13] MEDS: TERBINAFINE 250 MG TAB PO SCH ×2 (08:41→20:21)
[2017-04-13] MEDS: CLOPIDOGREL 75 MG TAB PO SCH (08:41)
[2017-04-13] MEDS: VALSARTAN 80 MG TAB PO SCH ×2 (08:41→20:20)
[2017-04-13] MEDS: BENZONATATE 100 MG CAP PO SCH ×3 (08:41→20:21)
[2017-04-13] MEDS: ASPIRIN (EC) 81 MG TAB PO SCH (08:41)
[2017-04-13] MEDS: AMLODIPINE 2.5 MG TAB PO SCH (08:41)
[2017-04-13] MEDS: HEPARIN 5,000 UNIT/0.5 ML VIAL SC SCH ×2 (08:42→20:27)
[2017-04-13] MEDS: COLLAGENASE 30 GM TUBE TOP SCH (08:43)
[2017-04-13] MEDS: SALMETEROL/FLUTICASONE 250/50 INHA INH SCH ×2 (08:43→20:18)
[2017-04-13] MEDS: VANCOMYCIN 1.75 GM in NS 500 ML IVPB SCH (08:43)
[2017-04-13] MEDS: NYSTATIN 30 GM POWDER BTL TOP SCH ×2 (08:43→20:31)
[2017-04-13 14:30] VITALS: BP 135/65; RESP 18
--- NOTE | 2017-04-13 15:39 | CONS ---
Date/Time of Note Date/Time of Note DATE: 04/13/17 TIME: 15:37 Assessment/Plan Assessment/Plan Chief Complaint/Hosp Course SUBJECTIVE: No acute changes, awake, no fevers, nad ANTIMICROBIALS: Vancomycin, Rocephin. PHYSICAL EXAMINATION: GENERAL: Well-developed elderly man who is alert, in no distress. HEENT: Head atraumatic, normocephalic. Sclerae anicteric. Buccal mucosa pink. NECK: Supple. LUNGS: Chest rise symmetrical. Breath sounds diminished at the bases. Otherwise clear. HEART: S1, S2. ABDOMEN: Soft. Bowel sounds present. EXTREMITIES: Left foot great toe dsg intact. ASSESSMENT: 1. Left great toe osteomyelitis as per magnetic resonance imaging done on 03/17. 2. Status post streptococcal bacteremia on 03/15/2017. 3. Chronic obstructive pulmonary disease with a history of tobacco use. 4. Diabetes. 5. PVD==> s/p angioplasty PLAN: Remains stable, ok dc on current abx to complete 6 weeks for OM==> till May 01 staff Problems: Consultation Date/Type/Reason Admit Date/Time Apr 05, 2017 at 10:08 Initial Consult Date 04/04/17 Type of Consultation: ID Exam/Review of Systems Vital Signs Vitals Vital Signs Date Time Temp Pulse Resp B/P Pulse Ox O2 Delivery O2 Flow Rate FiO2 04/13/17 14:30 98.0 70 18 135/65 95 04/11/17 16:58 Room Air Intake and Output 04/12/17 04/12/17 04/13/17 15:00 23:00 07:00 Intake Total 500 ml 1290 ml 300 ml Balance 500 ml 1290 ml 300 ml Results Result Diagram: 04/09/17 0442 04/13/17 0451 Results 24 hrs Laboratory Tests Test 04/12/17 17:32 04/12/17 21:14 04/13/17 04:51 04/13/17 11:48 Bedside Glucose 134 146 166 Blood Urea Nitrogen 16 Creatinine 0.98 Medications Medications Current Medications Acetaminophen (Tylenol Tab) 650 mg Q6H PRN PO PAIN AND OR ELEVATED TEMP Last administered on 04/11/17t 21:46; Admin Dose 650 MG; Start 04/04/17 at 06:30 Diagnostic Test (Pha) (Accu-Chek) 1 ea 02 XX ; Start 04/05/17 at 02:00 Miscellaneous Information 1 ea NOTE XX ; Start 04/04/17 at 07:30 Glucose (Glutose) 15 gm Q15M PRN PO DECREASED GLUCOSE; Start 04/04/17 at 07:30 Glucose (Glutose) 22.5 gm Q15M PRN PO DECREASED GLUCOSE; Start 04/04/17 at 07: 30 Dextrose (D50w Syringe) 25 ml Q15M PRN IV DECREASED GLUCOSE; Start 04/04/17 at 07:30 Dextrose (D50w Syringe) 50 ml Q15M PRN IV DECREASED GLUCOSE; Start 04/04/17 at 07:30 Glucagon (Glucagen) 1 mg Q15M PRN IM DECREASED GLUCOSE; Start 04/04/17 at 07:30 Glucose (Glutose) 15 gm Q15M PRN BUCCAL DECREASED GLUCOSE; Start 04/04/17 at 07 :30 Collagenase (Santyl) 1 applic DAILY TOP Last administered on 04/13/17 08:43; Admin Dose 1 APPLIC; Start 04/04/17 at 09:00 Insulin Glargine (Lantus) 45 unit HS SC Last administered on 04/12/17 21:17; Admin Dose 45 UNIT; Start 04/04/17 at 21:00 Linagliptin (Tradjenta) 5 mg DAILY PO Last administered on 04/13/17 08:41; Admin Dose 5 MG; Start 04/04/17 at 09:00 Aspirin (Halfprin) 81 mg DAILY PO Last administered on 04/13/17 08:41; Admin Dose 81 MG; Start 04/04/17 at 09:00 Collagenase (Santyl) 1 applic DAILY PRN TOP WHEN SOILDED Last administered on 21:29; Admin Dose 1 APPLIC; Start 04/04/17 at 07:30 Heparin Sodium (Porcine) (Heparin (5000 Units/0.5 ml)) 5,000 unit BID SC Last administered on 04/13/17 08:42; Admin Dose 5,000 UNIT; Start 04/05/17 at 21:00 Morphine Sulfate (morphine) 2 mg Q4H PRN IV 7-10 PAIN Last administered on 04/13 12:25; Admin Dose 2 MG; Start 04/05/17 at 17:00 Benzonatate 100 mg 100 mg TID PO Last administered on 04/13/17 12:13; Admin Dose 100 MG; Start 04/06/17 at 13:00 Vancomycin HCl/ Sodium Chloride (Vancocin/NS) 500 ml @ 125 mls/hr Q24H IVPB Last administered on 04/13/17 08:43; Admin Dose 125 MLS/HR; Start 04/08/17 at 08:00 Amlodipine Besylate (Norvasc) 2.5 mg DAILY PO Last administered on 04/13/17 08 :41; Admin Dose 2.5 MG; Start 04/08/17 at 09:00 Valsartan (Diovan) 40 mg BID PO Last administered on 04/13/17 08:41; Admin Dose 40 MG; Start 04/07/17 at 21:00 Terbinafine HCl (Lamisil) 250 mg BID PO Last administered on 04/13/17 08:41; Admin Dose 250 MG; Start 04/07/17 at 21:00; Stop 04/14/17 at 20:59 Atorvastatin Calcium (Lipitor) 40 mg HS PO Last administered on 04/12/17 21:09 ; Admin Dose 40 MG; Start 04/08/17 at 21:00 Salmeterol Xinafoate/ Fluticasone (Advair 250/50 Diskus) 1 inh BID INH Last administered on 04/13/17 08:43; Admin Dose 1 INH; Start 04/09/17 at 09:00 Nystatin 1 applic 1 applic BID TOP Last administered on 04/13/17 08:43; Admin Dose 1 APPLIC; Start 04/09/17 at 13:00 Ceftriaxone Sodium (Rocephin) 50 ml @ 100 mls/hr Q24H IVPB Last administered on 04/12/17 15:51; Admin Dose 100 MLS/HR; Start 04/10/17 at 15:00 Ondansetron HCl (Zofran Inj) 4 mg Q4H PRN IV NAUSEA AND/OR VOMITING; Start at 16:30 Clopidogrel Bisulfate (plaVIX) 75 mg DAILY PO Last administered on 04/13/17 08 :41; Admin Dose 75 MG; Start 04/12/17 at 09:00 TORO ARMIJO NP Apr 13, 2017 15:39
[2017-04-13] MEDS: CEFTRIAXONE 1 GM/50 ML (PMX) 50 ML IVPB SCH (15:49)
[2017-04-13 20:00] VITALS: BP 132/78; PULSE 82; RESP 20
[2017-04-13] MEDS: ATORVASTATIN 40 MG TAB PO SCH (20:19)
[2017-04-13] MEDS: INSULIN GLARGINE [LANtus] 3 ML PEN SC SCH (20:28)
[2017-04-14 02:00] VITALS: BP 135/73; PULSE 80; RESP 20
[2017-04-14] MEDS: ACCU-CHEK XX SCH (02:00)
[2017-04-14 06:18] LABS: BASOPHIL # 0.1 10^3/ul (0.0-0.1); BASOPHILS % 1.1 % (0.0-2.0); EOSINOPHILS # 0.2 10^3/ul (0.0-0.5); HEMATOCRIT 38.5 % (42.0-52.0); HEMOGLOBIN 12.7 g/dl (14.0-18.0); LYMPHOCYTES # 2.1 10^3/ul (0.8-2.9); LYMPHOCYTES % 33.4 % (15.0-51.0); MEAN CORPUSCULAR HEMOGLOBIN 31.4 pg (29.0-33.0); MEAN CORPUSCULAR VOLUME 95.3 fl (82.0-101.0); MEAN PLATELET VOLUME 10.8 fl (7.4-10.4); MONOCYTE # 0.6 10^3/ul (0.3-0.9); MONOCYTES % 9.7 % (0.0-11.0); NEUTROPHILS % 52.6 % (39.0-77.0); PLATELET COUNT 223 10^3/UL (140-415); RED BLOOD COUNT 4.04 10^6/ul (4.70-6.10); RED CELL DISTRIBUTION WIDTH 13.2 % (11.5-14.5); WHITE BLOOD COUNT 6.4 10^3/ul (4.8-10.8)
[2017-04-14] MEDS: morphine 2 MG INJ IV PRN ×4 (06:45→18:02)
[2017-04-14 06:48] LABS: CALCIUM 9.6 mg/dl (8.4-10.2); CREATININE 1.16 mg/dl (0.61-1.24); POTASSIUM 4.2 mmol/L (3.5-5.1)
[2017-04-14] MEDS: INSULIN ASPART [NOVOLOG] 3 ML PEN SC SCH ×7 (07:30→20:31)
[2017-04-14 08:00] VITALS: BP 150/76; RESP 20
[2017-04-14] MEDS: BENZONATATE 100 MG CAP PO SCH ×3 (08:01→20:29)
[2017-04-14] MEDS: AMLODIPINE 2.5 MG TAB PO SCH (08:01)
[2017-04-14] MEDS: SALMETEROL/FLUTICASONE 250/50 INHA INH SCH ×2 (08:01→20:29)
[2017-04-14] MEDS: ASPIRIN (EC) 81 MG TAB PO SCH (08:01)
[2017-04-14] MEDS: TERBINAFINE 250 MG TAB PO SCH (08:01)
[2017-04-14] MEDS: LINAGLIPTIN 5 MG TABLET PO SCH (08:01)
[2017-04-14] MEDS: VANCOMYCIN 1.75 GM in NS 500 ML IVPB SCH (08:01)
[2017-04-14] MEDS: VALSARTAN 80 MG TAB PO SCH ×2 (08:01→20:39)
[2017-04-14] MEDS: CLOPIDOGREL 75 MG TAB PO SCH (08:01)
[2017-04-14] MEDS: HEPARIN 5,000 UNIT/0.5 ML VIAL SC SCH ×2 (08:03→20:29)
[2017-04-14] MEDS: COLLAGENASE 30 GM TUBE TOP SCH (08:04)
[2017-04-14] MEDS: NYSTATIN 30 GM POWDER BTL TOP SCH ×2 (08:04→21:00)
--- NOTE | 2017-04-14 13:12 | PN ---
Date/Time of Note Date/Time of Note DATE: 04/14/17 TIME: 13:10 Assessment/Plan VTE Prophylaxis VTE Prophylaxis Intervention: heparin Lines/Catheters IV Catheter Type (from [facility]): PICC Line Central line still needed: Yes Urinary Cath still in place: No Assessment/Plan Problems: (1) Type 2 diabetes mellitus with peripheral artery disease Status: Chronic Comment: His blood sugar control on the current combination of medications has been excellent. Continue on the same therapeutic protocol. (2) Onychomycosis Status: Chronic Comment: He is completing first pulse of terbinafine pulse therapy (3) Hyperlipidemia Status: Chronic Comment: Continue statin therapy Qualifiers: Hyperlipidemia type: pure hypercholesterolemia Qualified Code: E78.00 - Pure hypercholesterolemia (4) Essential hypertension Status: Chronic Comment: Adequate control on current medication regimen without untoward side effect (5) Wheezing Status: Chronic Comment: Good control using treatment of COPD (6) Foot ulcer, right Status: Acute Comment: On treatment. He has had his revascularization performed. Qualifiers: Non-pressure ulcer stage: with necrosis of bone Qualified Code: L97.514 - Foot ulcer, right, with necrosis of bone Subjective 24 Hr Interval Summary Free Text/Dictation The patient reports that he is feeling better. He is anxious to find out about discharge planning Constitutional: no complaints ENT: no complaints Respiratory: no complaints Cardiovascular: no complaints Gastrointestinal: no complaints Exam/Review of Systems Vital Signs Vitals Vital Signs Date Time Temp Pulse Resp B/P Pulse Ox O2 Delivery O2 Flow Rate FiO2 04/14/17 08:00 97.8 72 20 150/76 95 04/14/17 02:00 Room Air Intake and Output 04/13/17 04/13/17 04/14/17 15:00 23:00 07:00 Intake Total 500 ml 1010 ml 480 ml Balance 500 ml 1010 ml 480 ml Exam Constitutional: alert, oriented Respiratory: clear to auscultation, normal air movement Cardiovascular: nl pulses, regular rate and rhythm Gastrointestinal: nl liver, spleen, non-tender, soft Results Result Diagram: 04/14/17 0452 04/14/17 0452 Results 24 hrs Laboratory Tests Test 04/13/17 17:33 04/13/17 20:25 04/14/17 04:52 04/14/17 12:13 Bedside Glucose 170 180 87 White Blood Count 6.4 Red Blood Count 4.04 L Hemoglobin 12.7 L Hematocrit 38.5 L Mean Corpuscular Volume 95.3 Mean Corpuscular Hemoglobin 31.4 Mean Corpuscular Hemoglobin Concent 33.0 Red Cell Distribution Width 13.2 Platelet Count 223 Mean Platelet Volume 10.8 H Neutrophils % 52.6 Lymphocytes % 33.4 Monocytes % 9.7 Eosinophils % 3.0 Basophils % 1.1 Nucleated Red Blood Cells % 0.0 Neutrophils # (Manual) 3.4 Lymphocytes # 2.1 Monocytes # 0.6 Eosinophils # 0.2 Basophils # 0.1 Nucleated Red Blood Cells # 0.0 Sodium Level 138 Potassium Level 4.2 Chloride Level 102 Carbon Dioxide Level 25 Anion Gap 15 Blood Urea Nitrogen 19 Creatinine 1.16 Glucose Level 125 Calcium Level 9.6 Medications Medications Current Medications Acetaminophen (Tylenol Tab) 650 mg Q6H PRN PO PAIN AND OR ELEVATED TEMP Last administered on 04/11/17 21:46; Admin Dose 650 MG; Start 04/04/17 at 06:30 Diagnostic Test (Pha) (Accu-Chek) 1 ea 02 XX ; Start 04/05/17 at 02:00 Miscellaneous Information 1 ea NOTE XX ; Start 04/04/17 at 07:30 Glucose (Glutose) 15 gm Q15M PRN PO DECREASED GLUCOSE; Start 04/04/17 at 07:30 Glucose (Glutose) 22.5 gm Q15M PRN PO DECREASED GLUCOSE; Start 04/04/17 at 07: 30 Dextrose (D50w Syringe) 25 ml Q15M PRN IV DECREASED GLUCOSE; Start 04/04/17 at 07:30 Dextrose (D50w Syringe) 50 ml Q15M PRN IV DECREASED GLUCOSE; Start 04/04/17 at 07:30 Glucagon (Glucagen) 1 mg Q15M PRN IM DECREASED GLUCOSE; Start 04/04/17 at 07:30 Glucose (Glutose) 15 gm Q15M PRN BUCCAL DECREASED GLUCOSE; Start 04/04/17 at 07 :30 Collagenase (Santyl) 1 applic DAILY TOP Last administered on 04/14/17 08:04; Admin Dose 1 APPLIC; Start 04/04/17 at 09:00 Insulin Glargine (Lantus) 45 unit HS SC Last administered on 04/13/17 20:28; Admin Dose 45 UNIT; Start 04/04/17 at 21:00 Linagliptin (Tradjenta) 5 mg DAILY PO Last administered on 04/14/17 08:01; Admin Dose 5 MG; Start 04/04/17 at 09:00 Aspirin (Halfprin) 81 mg DAILY PO Last administered on 04/14/17 08:01; Admin Dose 81 MG; Start 04/04/17 at 09:00 Collagenase (Santyl) 1 applic DAILY PRN TOP WHEN SOILDED Last administered on 21:29; Admin Dose 1 APPLIC; Start 04/04/17 at 07:30 Heparin Sodium (Porcine) (Heparin (5000 Units/0.5 ml)) 5,000 unit BID SC Last administered on 04/14/17 08:03; Admin Dose 5,000 UNIT; Start 04/05/17 at 21:00 Morphine Sulfate (morphine) 2 mg Q4H PRN IV 7-10 PAIN Last administered on 04/14 09:35; Admin Dose 2 MG; Start 04/05/17 at 17:00 Benzonatate 100 mg 100 mg TID PO Last administered on 04/14/17 12:16; Admin Dose 100 MG; Start 04/06/17 at 13:00 Vancomycin HCl/ Sodium Chloride (Vancocin/NS) 500 ml @ 125 mls/hr Q24H IVPB Last administered on 04/14/17 08:01; Admin Dose 125 MLS/HR; Start 04/08/17 at 08:00 Amlodipine Besylate (Norvasc) 2.5 mg DAILY PO Last administered on 04/14/17 08 :01; Admin Dose 2.5 MG; Start 04/08/17 at 09:00 Valsartan (Diovan) 40 mg BID PO Last administered on 04/14/17 08:01; Admin Dose 40 MG; Start 04/07/17 at 21:00 Terbinafine HCl (Lamisil) 250 mg BID PO Last administered on 04/14/17 08:01; Admin Dose 250 MG; Start 04/07/17 at 21:00; Stop 04/14/17 at 20:59 Atorvastatin Calcium (Lipitor) 40 mg HS PO Last administered on 04/13/17 20:19 ; Admin Dose 40 MG; Start 04/08/17 at 21:00 Salmeterol Xinafoate/ Fluticasone (Advair 250/50 Diskus) 1 inh BID INH Last administered on 04/14/17 08:01; Admin Dose 1 INH; Start 04/09/17 at 09:00 Nystatin 1 applic 1 applic BID TOP Last administered on 04/14/17 08:04; Admin Dose 1 APPLIC; Start 04/09/17 at 13:00 Ceftriaxone Sodium (Rocephin) 50 ml @ 100 mls/hr Q24H IVPB Last administered on 04/13/17 15:49; Admin Dose 100 MLS/HR; Start 04/10/17 at 15:00 Ondansetron HCl (Zofran Inj) 4 mg Q4H PRN IV NAUSEA AND/OR VOMITING; Start at 16:30 Clopidogrel Bisulfate (plaVIX) 75 mg DAILY PO Last administered on 04/14/17 08 :01; Admin Dose 75 MG; Start 04/12/17 at 09:00 Miscellaneous Information (*Rx Drug Level Order Reminder*) 1 ONCE ONCE XX ; Start 04/15/17 at 07:00; Stop 04/15/17 at 07:01 SANAZ DAVIS MD Apr 14, 2017 13:12
[2017-04-14 14:00] VITALS: BP 132/60; RESP 18
[2017-04-14] MEDS: CEFTRIAXONE 1 GM/50 ML (PMX) 50 ML IVPB SCH (14:23)
--- NOTE | 2017-04-14 18:59 | CONS ---
Date/Time of Note Date/Time of Note DATE: 04/14/17 TIME: 18:44 Assessment/Plan Assessment/Plan Chief Complaint/Hosp Course ID PROGRESS NOTE CURRENT ABX: => Ceftriaxone + Vanco IV + Lamisil 24H INTERVAL SUMMARY * A/A/O -- no fevers, VSS, NAD, sitting up edge of bed reading * DC planning in process -- ID colleague Shana's note is very clear on the ABX plan of care * LABS: 04/14/17 0452 04/14/17 0452 EXAM 61 yo man who is in no distress HEENT: Unremarkable CHEST: Equal chest rise bilaterally without dyspnea on observation CV: Radial pulse RRR ABD: Soft, nontender : Deferred EXT: Warm, no cyanosis, foot DSG C/D/I SKIN: No rash, no diaphoresis ID ASSESSMENT 61 yo M w/PMHx CVA, HTN, HLD, PAD admit with 1. Infected left great toe diabetic foot ulcer/possible abscess/(+) osteomyelitis distal great toe * s/p septicemia 03/15/17 BCx (+) Organism 1 STREP AGALACTIAE - (GROUP B) * ESR 100 (03/15/17) -> ESR 41 (04/09/17) * 03/17/17 MRI Foot: 1. Findings consistent with focal osteomyelitis of the terminal tuft of the great toe distal phalanx laterally. 2. There is adjacent soft tissue mass that could be a phlegmon or early abscess. 2. PAD: PVD==> s/p angioplasty 3. s/p Acute kidney injury => RESOLVED 4. COPD-> former tobacco * Hypoxic respiratory distress in setting acute sepsis => RESOLVED 5. Hyperglycemia with type 2 diabetes with complication of peripheral neuropathy . 6. Onychomycosis -> On Lamisil Tiny 6.5 mm micronodule in the anteromedial right upper lobe * -Follow-up CT in 6 months to one year recommended. INVASIVES: PICC-> 03/21/17 CURRENT ABX: => Ceftriaxone + Vanco IV + Lamisil ID RECOMMENDATIONS PLAN: Remains stable, ok dc on current ABX Ceftriaxone 1 GM IV daily + Vanco 1.75 GM IV daily @ 0800 w/continued dose per OP pharmacy to complete 6 weeks for OM==> till May 01 = last day * Regrets, unable to recommend final DC Vanco IV dose as [facility] has Vanco Trough ordered for tomorrow 04/15/17 am. * Final Vanco dose to be determined by pharmacy after am 04/15/17 trough * BASELINES: * Serum Creatinine range: 1.07 - 1.116 * Vanco Trough 13.2 on 04/07/17 @ 06:26; 14.8 on 04/11/17 @ 0700 == Next trough 04/15/17 @ ??? Problems: Consultation Date/Type/Reason Admit Date/Time Apr 05, 2017 at 10:08 Initial Consult Date 04/04/17 Type of Consultation: ID Exam/Review of Systems Vital Signs Vitals Vital Signs Date Time Temp Pulse Resp B/P Pulse Ox O2 Delivery O2 Flow Rate FiO2 04/14/17 14:00 97.6 80 18 132/60 93 04/14/17 02:00 Room Air Intake and Output 04/13/17 04/13/17 04/14/17 15:00 23:00 07:00 Intake Total 500 ml 1010 ml 480 ml Balance 500 ml 1010 ml 480 ml Results Result Diagram: 04/14/17 0452 04/14/17 0452 Results 24 hrs Laboratory Tests Test 04/13/17 20:25 04/14/17 01:51 04/14/17 04:52 04/14/17 07:55 Bedside Glucose 180 125 137 White Blood Count 6.4 Red Blood Count 4.04 L Hemoglobin 12.7 L Hematocrit 38.5 L Mean Corpuscular Volume 95.3 Mean Corpuscular Hemoglobin 31.4 Mean Corpuscular Hemoglobin Concent 33.0 Red Cell Distribution Width 13.2 Platelet Count 223 Mean Platelet Volume 10.8 H Neutrophils % 52.6 Lymphocytes % 33.4 Monocytes % 9.7 Eosinophils % 3.0 Basophils % 1.1 Nucleated Red Blood Cells % 0.0 Neutrophils # (Manual) 3.4 Lymphocytes # 2.1 Monocytes # 0.6 Eosinophils # 0.2 Basophils # 0.1 Nucleated Red Blood Cells # 0.0 Sodium Level 138 Potassium Level 4.2 Chloride Level 102 Carbon Dioxide Level 25 Anion Gap 15 Blood Urea Nitrogen 19 Creatinine 1.16 Glucose Level 125 Calcium Level 9.6 Test 04/14/17 12:13 04/14/17 17:23 Bedside Glucose 87 166 Medications Medications Current Medications Acetaminophen (Tylenol Tab) 650 mg Q6H PRN PO PAIN AND OR ELEVATED TEMP Last administered on 04/11/17 21:46; Admin Dose 650 MG; Start 04/04/17 at 06:30 Diagnostic Test (Pha) (Accu-Chek) 1 ea 02 XX ; Start 04/05/17 at 02:00 Miscellaneous Information 1 ea NOTE XX ; Start 04/04/17 at 07:30 Glucose (Glutose) 15 gm Q15M PRN PO DECREASED GLUCOSE; Start 04/04/17 at 07:30 Glucose (Glutose) 22.5 gm Q15M PRN PO DECREASED GLUCOSE; Start 04/04/17 at 07: 30 Dextrose (D50w Syringe) 25 ml Q15M PRN IV DECREASED GLUCOSE; Start 04/04/17 at 07:30 Dextrose (D50w Syringe) 50 ml Q15M PRN IV DECREASED GLUCOSE; Start 04/04/17 at 07:30 Glucagon (Glucagen) 1 mg Q15M PRN IM DECREASED GLUCOSE; Start 04/04/17 at 07:30 Glucose (Glutose) 15 gm Q15M PRN BUCCAL DECREASED GLUCOSE; Start 04/04/17 at 07 :30 Collagenase (Santyl) 1 applic DAILY TOP Last administered on 04/14/17 08:04; Admin Dose 1 APPLIC; Start 04/04/17 at 09:00 Insulin Glargine (Lantus) 45 unit HS SC Last administered on 04/13/17 20:28; Admin Dose 45 UNIT; Start 04/04/17 at 21:00 Linagliptin (Tradjenta) 5 mg DAILY PO Last administered on 04/14/17 08:01; Admin Dose 5 MG; Start 04/04/17 at 09:00 Aspirin (Halfprin) 81 mg DAILY PO Last administered on 04/14/17 08:01; Admin Dose 81 MG; Start 04/04/17 at 09:00 Collagenase (Santyl) 1 applic DAILY PRN TOP WHEN SOILDED Last administered on 21:29; Admin Dose 1 APPLIC; Start 04/04/17 at 07:30 Heparin Sodium (Porcine) (Heparin (5000 Units/0.5 ml)) 5,000 unit BID SC Last administered on 04/14/17 08:03; Admin Dose 5,000 UNIT; Start 04/05/17 at 21:00 Morphine Sulfate (morphine) 2 mg Q4H PRN IV 7-10 PAIN Last administered on 04/14 18:02; Admin Dose 2 MG; Start 04/05/17 at 17:00 Benzonatate 100 mg 100 mg TID PO Last administered on 04/14/17 12:16; Admin Dose 100 MG; Start 04/06/17 at 13:00 Vancomycin HCl/ Sodium Chloride (Vancocin/NS) 500 ml @ 125 mls/hr Q24H IVPB Last administered on 04/14/17 08:01; Admin Dose 125 MLS/HR; Start 04/08/17 at 08:00 Amlodipine Besylate (Norvasc) 2.5 mg DAILY PO Last administered on 04/14/17 08 :01; Admin Dose 2.5 MG; Start 04/08/17 at 09:00 Valsartan (Diovan) 40 mg BID PO Last administered on 04/14/17 08:01; Admin Dose 40 MG; Start 04/07/17 at 21:00 Terbinafine HCl (Lamisil) 250 mg BID PO Last administered on 04/14/17 08:01; Admin Dose 250 MG; Start 04/07/17 at 21:00; Stop 04/14/17 at 20:59 Atorvastatin Calcium (Lipitor) 40 mg HS PO Last administered on 04/13/17 20:19 ; Admin Dose 40 MG; Start 04/08/17 at 21:00 Salmeterol Xinafoate/ Fluticasone (Advair 250/50 Diskus) 1 inh BID INH Last administered on 04/14/17 08:01; Admin Dose 1 INH; Start 04/09/17 at 09:00 Nystatin 1 applic 1 applic BID TOP Last administered on 04/14/17 08:04; Admin Dose 1 APPLIC; Start 04/09/17 at 13:00 Ceftriaxone Sodium (Rocephin) 50 ml @ 100 mls/hr Q24H IVPB Last administered on 04/14/17 14:23; Admin Dose 100 MLS/HR; Start 04/10/17 at 15:00 Ondansetron HCl (Zofran Inj) 4 mg Q4H PRN IV NAUSEA AND/OR VOMITING; Start at 16:30 Clopidogrel Bisulfate (plaVIX) 75 mg DAILY PO Last administered on 04/14/17t 08 :01; Admin Dose 75 MG; Start 04/12/17 at 09:00 Miscellaneous Information (*Rx Drug Level Order Reminder*) 1 ONCE ONCE XX ; Start 04/15/17 at 07:00; Stop 04/15/17 at 07:01 MYRNA MCCAIN NP Apr 14, 2017 18:55
[2017-04-14 20:00] VITALS: BP 139/67; RESP 20
[2017-04-14] MEDS: ATORVASTATIN 40 MG TAB PO SCH (20:28)
[2017-04-14] MEDS: INSULIN GLARGINE [LANtus] 3 ML PEN SC SCH (20:30)
[2017-04-15 02:00] VITALS: BP 148/72; RESP 20
[2017-04-15] MEDS: ACCU-CHEK XX SCH (02:00)
[2017-04-15] MEDS: INSULIN ASPART [NOVOLOG] 3 ML PEN SC SCH ×6 (07:30→17:31)
[2017-04-15 08:00] VITALS: BP 134/76; RESP 18
[2017-04-15] MEDS: ASPIRIN (EC) 81 MG TAB PO SCH (08:17)
[2017-04-15] MEDS: LINAGLIPTIN 5 MG TABLET PO SCH (08:17)
[2017-04-15] MEDS: CLOPIDOGREL 75 MG TAB PO SCH (08:19)
[2017-04-15] MEDS: HEPARIN 5,000 UNIT/0.5 ML VIAL SC SCH (08:19)
[2017-04-15] MEDS: morphine 2 MG INJ IV PRN ×3 (08:20→16:56)
[2017-04-15] MEDS: VALSARTAN 80 MG TAB PO SCH (08:20)
[2017-04-15] MEDS: AMLODIPINE 2.5 MG TAB PO SCH (08:20)
[2017-04-15] MEDS: BENZONATATE 100 MG CAP PO SCH ×2 (08:21→12:38)
[2017-04-15] MEDS: SALMETEROL/FLUTICASONE 250/50 INHA INH SCH (08:21)
[2017-04-15] MEDS: VANCOMYCIN 1.75 GM in NS 500 ML IVPB SCH (09:57)
[2017-04-15] MEDS: NYSTATIN 30 GM POWDER BTL TOP SCH (10:02)
[2017-04-15] MEDS: COLLAGENASE 30 GM TUBE TOP SCH (12:08)
--- NOTE | 2017-04-15 12:37 | CONS ---
Date/Time of Note Date/Time of Note DATE: 04/15/17 TIME: 12:31 Assessment/Plan Assessment/Plan Chief Complaint/Hosp Course ID PROGRESS NOTE CURRENT ABX: => Ceftriaxone + Vanco IV + Lamisil 24H INTERVAL SUMMARY * Doing well, eager to DC home, no new issues, feels well * DC planning in process -- discussed final ABX recs per clinical pharmacist with nurse and with Dr. Alfaro * Final ABX recs placed in Case Management note as per final plan (see bottom of this note) EXAM 61 yo man who is in no distress HEENT: Unremarkable CHEST: Equal chest rise bilaterally without dyspnea on observation CV: Radial pulse RRR ABD: Soft, nontender : Deferred EXT: Warm, no cyanosis, foot DSG C/D/I SKIN: No rash, no diaphoresis ID ASSESSMENT 61 yo M w/PMHx CVA, HTN, HLD, PAD admit with 1. Infected left great toe diabetic foot ulcer/possible abscess/(+) osteomyelitis distal great toe * s/p septicemia 03/15/17 BCx (+) Organism 1 STREP AGALACTIAE - (GROUP B) * ESR 100 (03/15/17) -> ESR 41 (04/09/17) * 03/17/17 MRI Foot: 1. Findings consistent with focal osteomyelitis of the terminal tuft of the great toe distal phalanx laterally. 2. There is adjacent soft tissue mass that could be a phlegmon or early abscess. 2. PAD: PVD==> s/p angioplasty 3. s/p Acute kidney injury => RESOLVED 4. COPD-> former tobacco * Hypoxic respiratory distress in setting acute sepsis => RESOLVED 5. Hyperglycemia with type 2 diabetes with complication of peripheral neuropathy . 6. Onychomycosis -> On Lamisil Tiny 6.5 mm micronodule in the anteromedial right upper lobe * -Follow-up CT in 6 months to one year recommended. INVASIVES: PICC-> 03/21/17 CURRENT ABX: => Ceftriaxone + Vanco IV + Lamisil ID RECOMMENDATIONS PLAN=> December DC to RN IV ABX therapy on: 1. Ceftriaxone 1 GM IV daily + 2. Vanco 1.75 GM IV daily @ 0800 w/continued dose per OP pharmacy to complete 6 weeks for OM==> till Sep 12th = last day * BASELINES: * Serum Creatinine range: 1.07 - 1.116 * Vanco Trough 13.2 on 04/07/17 @ 06:26; 14.8 on 04/11/17 @ 0700 == today 13.8 04/15/17 @ 0715 . Problems: Consultation Date/Type/Reason Admit Date/Time Apr 05, 2017 at 10:08 Initial Consult Date 04/04/17 Type of Consultation: ID Exam/Review of Systems Vital Signs Vitals Vital Signs Date Time Temp Pulse Resp B/P Pulse Ox O2 Delivery O2 Flow Rate FiO2 04/15/17 08:00 98.1 77 18 134/76 94 04/14/17 02:00 Room Air Intake and Output 04/14/17 04/14/17 04/15/17 15:00 23:00 07:00 Intake Total 550 ml 1100 ml 500 ml Balance 550 ml 1100 ml 500 ml Results Result Diagram: 04/14/17 0452 04/14/17 0452 Results 24 hrs Laboratory Tests Test 04/14/17 17:23 04/14/17 20:27 04/15/17 02:15 04/15/17 07:50 Bedside Glucose 166 200 128 Vancomycin Level Trough 13.8 Test 04/15/17 08:13 04/15/17 11:57 Bedside Glucose 121 224 H Medications Medications Current Medications Acetaminophen (Tylenol Tab) 650 mg Q6H PRN PO PAIN AND OR ELEVATED TEMP Last administered on 04/11/17t 21:46; Admin Dose 650 MG; Start 04/04/17 at 06:30 Diagnostic Test (Pha) (Accu-Chek) 1 ea 02 XX ; Start 04/05/17 at 02:00 Miscellaneous Information 1 ea NOTE XX ; Start 04/04/17 at 07:30 Glucose (Glutose) 15 gm Q15M PRN PO DECREASED GLUCOSE; Start 04/04/17 at 07:30 Glucose (Glutose) 22.5 gm Q15M PRN PO DECREASED GLUCOSE; Start 04/04/17 at 07: 30 Dextrose (D50w Syringe) 25 ml Q15M PRN IV DECREASED GLUCOSE; Start 04/04/17 at 07:30 Dextrose (D50w Syringe) 50 ml Q15M PRN IV DECREASED GLUCOSE; Start 04/04/17 at 07:30 Glucagon (Glucagen) 1 mg Q15M PRN IM DECREASED GLUCOSE; Start 04/04/17 at 07:30 Glucose (Glutose) 15 gm Q15M PRN BUCCAL DECREASED GLUCOSE; Start 04/04/17 at 07 :30 Collagenase (Santyl) 1 applic DAILY TOP Last administered on 04/15/17 12:08; Admin Dose 1 APPLIC; Start 04/04/17 at 09:00 Insulin Glargine (Lantus) 45 unit HS SC Last administered on 04/14/17 20:30; Admin Dose 45 UNIT; Start 04/04/17 at 21:00 Linagliptin (Tradjenta) 5 mg DAILY PO Last administered on 04/15/17 08:17; Admin Dose 5 MG; Start 04/04/17 at 09:00 Aspirin (Halfprin) 81 mg DAILY PO Last administered on 04/15/17 08:17; Admin Dose 81 MG; Start 04/04/17 at 09:00 Collagenase (Santyl) 1 applic DAILY PRN TOP WHEN SOILDED Last administered on 21:29; Admin Dose 1 APPLIC; Start 04/04/17 at 07:30 Heparin Sodium (Porcine) (Heparin (5000 Units/0.5 ml)) 5,000 unit BID SC Last administered on 04/15/17 08:19; Admin Dose 5,000 UNIT; Start 04/05/17 at 21:00 Morphine Sulfate (morphine) 2 mg Q4H PRN IV 7-10 PAIN Last administered on 04/15 08:20; Admin Dose 2 MG; Start 04/05/17 at 17:00 Benzonatate 100 mg 100 mg TID PO Last administered on 04/15/17 08:21; Admin Dose 100 MG; Start 04/06/17 at 13:00 Vancomycin HCl/ Sodium Chloride (Vancocin/NS) 500 ml @ 125 mls/hr Q24H IVPB Last administered on 04/15/17 09:57; Admin Dose 125 MLS/HR; Start 04/08/17 at 08:00; Stop 05/01/17 at 07:59 Amlodipine Besylate (Norvasc) 2.5 mg DAILY PO Last administered on 04/15/17 08 :20; Admin Dose 2.5 MG; Start 04/08/17 at 09:00 Valsartan (Diovan) 40 mg BID PO Last administered on 04/15/17 08:20; Admin Dose 40 MG; Start 04/07/17 at 21:00 Atorvastatin Calcium (Lipitor) 40 mg HS PO Last administered on 04/14/17 20:28 ; Admin Dose 40 MG; Start 04/08/17 at 21:00 Salmeterol Xinafoate/ Fluticasone (Advair 250/50 Diskus) 1 inh BID INH Last administered on 04/15/17 08:21; Admin Dose 1 INH; Start 04/09/17 at 09:00 Nystatin 1 applic 1 applic BID TOP Last administered on 04/15/17 10:02; Admin Dose 1 APPLIC; Start 04/09/17 at 13:00 Ceftriaxone Sodium (Rocephin) 50 ml @ 100 mls/hr Q24H IVPB Last administered on 04/14/17 14:23; Admin Dose 100 MLS/HR; Start 04/10/17 at 15:00; Stop at 14:59 Ondansetron HCl (Zofran Inj) 4 mg Q4H PRN IV NAUSEA AND/OR VOMITING; Start at 16:30 Clopidogrel Bisulfate (plaVIX) 75 mg DAILY PO Last administered on 04/15/17 08 :19; Admin Dose 75 MG; Start 04/12/17 at 09:00 MYRNA MCCAIN NP Apr 15, 2017 12:37
--- NOTE | 2017-04-15 12:39 | PDOCDIS ---
Discharge Instructions DIAGNOSIS Discharge Diagnosis Diabetic foot ulcer; onychomycosis; diabetes mellitus type 2; obesity; hypertension; hyperlipidemia CONDITION Patient Condition: Fair HOME CARE INSTRUCTIONS: Special Diet: carb controlled ACTIVITY: Activity Restrictions: Slowly Increase Activity Avoid heavy lifting No Sexual Activity Do not operate Machinery Do not operate Power Tool Avoid Heavy Housework Keep Limb Elevated FOLLOW UP/APPOINTMENTS Follow-up Plan Follow-up with [facility] and Dr. Vizcaino within 1 week SCHOOL/WORK RELEASE May return to School/Work with: With Restrictions SANAZ DAVIS MD Apr 15, 2017 12:39
[2017-04-15] MEDS ORDERED: VALS40TA2 PO (12:41)
[2017-04-15] MEDS ORDERED: ADV25050 INH (12:41)
[2017-04-15] MEDS ORDERED: ATOR40TA68 PO (12:41)
[2017-04-15] MEDS ORDERED: AMLO5TAB4 PO (12:41)
[2017-04-15] MEDS ORDERED: ASPI-664 PO (12:41)
[2017-04-15] MEDS ORDERED: CLOP75TA28 PO (12:41)
--- NOTE | 2017-04-15 12:46 | DS ---
Date/Time of Note Date/Time of Note DATE: 04/15/17 TIME: 12:43 Discharge Summary Admission/Discharge Info Admit Date/Time Apr 05, 2017 at 10:08 Discharge Date/Time April 15, 2017 Discharge Diagnosis Diabetic foot ulcer; onychomycosis; diabetes mellitus type 2; obesity; hypertension; hyperlipidemia Patient Condition: Fair Consults Vascular surgery-Dr. Vizcaino; infectious disease-Dr. Gould; [facility] Procedures OPERATION PERFORMED: 1. Ultrasound-guided access of the right common femoral artery 2. Aortoiliac angiogram. 3. Third order selection of the left common femoral artery and left lower extremity angiogram. 4. Left tibioperoneal trunk balloon angioplasty with a 2.5 by 220 mm Gaines balloon. 5. Left femoral popliteal artery stenting with a 6 mm x 150 mm Innova stent. 6. Left femoral popliteal artery balloon angioplasty with a 6 mm x 150 mm balloon. Hx of Present Illness This is a 61-year-old male with a history of CVA, type 2 diabetes, hypertension , dyslipidemia and left foot osteomyelitis. Patient was admitted recently 2 weeks ago for the left great toe ulcer and was diagnosed with osteomyelitis. Patient was discharged with home health after placement of a PICC line. Patient is now sent to ER by home health nurse for evaluation of left great toe because they think that there is more inflammation and that the patient is probably not responding to IV antibiotics. Patient denied fever/chills, nausea/ vomiting, chest pain, shortness of breath. When patient presented to the ER her blood pressure was 155/74 with a heart rate of 88, otherwise rest of vitals are stable. Labs shows a hemoglobin of 13.2 otherwise CBC and CMP are within acceptable range. . Hospital Course ID PROGRESS NOTE CURRENT ABX: => Ceftriaxone + Vanco IV + Lamisil 24H INTERVAL SUMMARY * Doing well, eager to DC home, no new issues, feels well * DC planning in process -- discussed final ABX recs per clinical pharmacist with nurse and with Dr. Alfaro * Final ABX recs placed in Case Management note as per final plan (see bottom of this note) EXAM 61 yo man who is in no distress HEENT: Unremarkable CHEST: Equal chest rise bilaterally without dyspnea on observation CV: Radial pulse RRR ABD: Soft, nontender : Deferred EXT: Warm, no cyanosis, foot DSG C/D/I SKIN: No rash, no diaphoresis ID ASSESSMENT 61 yo M w/PMHx CVA, HTN, HLD, PAD admit with 1. Infected left great toe diabetic foot ulcer/possible abscess/(+) osteomyelitis distal great toe * s/p septicemia 03/15/17 BCx (+) Organism 1 STREP AGALACTIAE - (GROUP B) * ESR 100 (03/15/17) -> ESR 41 (04/09/17) * 03/17/17 MRI Foot: 1. Findings consistent with focal osteomyelitis of the terminal tuft of the great toe distal phalanx laterally. 2. There is adjacent soft tissue mass that could be a phlegmon or early abscess. 2. PAD: PVD==> s/p angioplasty 3. s/p Acute kidney injury => RESOLVED 4. COPD-> former tobacco * Hypoxic respiratory distress in setting acute sepsis => RESOLVED 5. Hyperglycemia with type 2 diabetes with complication of peripheral neuropathy . 6. Onychomycosis -> On Lamisil Tiny 6.5 mm micronodule in the anteromedial right upper lobe * -Follow-up CT in 6 months to one year recommended. INVASIVES: PICC-> 03/21/17 CURRENT ABX: => Ceftriaxone + Vanco IV + Lamisil ID RECOMMENDATIONS PLAN=> December DC to RN IV ABX therapy on: 1. Ceftriaxone 1 GM IV daily + 2. Vanco 1.75 GM IV daily @ 0800 w/continued dose per OP pharmacy to complete 6 weeks for OM==> till May 01 = last day * BASELINES: * Serum Creatinine range: 1.07 - 1.116 * Vanco Trough 13.2 on 04/07/17 @ 06:26; 14.8 on 04/11/17 @ 0700 == today 13.8 04/15/17 @ 0715 . [place] 61-year-old gentleman status post vascular intervention with angioplasties. He is now on IV antibiotic therapy and hopefully with the improved blood flow will have adequate opportunity to heal the distal extremity wounds. Blood pressure; diabetes; and hyperlipidemia were all well controlled in the hospital. He is now discharged home in improved condition. His rehabilitation potential is fair. Follow-up in the [facility] and with Dr. Gaspar and Dr. Charis mckeon in the near future Home Meds Active Scripts Salmeterol Xinaf/Fluticasone* (Advair*) 250-50 Diskus Inhaler, 1 INH INH BID for 30 Days Prov:SANAZ ALFARO MD 04/15/17 Aspirin* (Aspirin* EC) 81 Mg Tablet.dr, 81 MG PO DAILY for 30 Days Prov:SANAZ ALFARO MD 04/15/17 Atorvastatin* (Atorvastatin*) 40 Mg Tablet, 40 MG PO HS for 30 Days, TAB Prov:SANAZ ALFARO MD 04/15/17 Clopidogrel Bisulfate (Clopidogrel) 75 Mg Tablet, 75 MG PO DAILY for 30 Days, TAB Prov:SANAZ ALFARO MD 04/15/17 Valsartan* (Diovan*) 40 Mg Tablet, 40 MG PO BID for 30 Days, TAB Prov:SANAZ ALFARO MD 04/15/17 Amlodipine Besylate* (Norvasc*) 5 Mg Tablet, 2.5 MG PO DAILY for 30 Days, TAB Prov:SANAZ ALFARO MD 04/15/17 Insulin Aspart* (Novolog Insulin Pen*) 100 Unit/Ml Soln, 15 UNIT SC WITH MEALS for 30 Days, #1 SYR Prov:HERRERA,BRANDON V. BAIT PACKER 03/23/17 Metformin Hcl (Glucophage) 500 Mg Tablet, 1000 MG PO BID WITH MEALS for 30 Days , #60 TAB Prov:HERRERA,BRANDON V. BAIT PACKER 03/23/17 Linagliptin (TRADJENTA) 5 Mg Tablet, 5 MG PO DAILY for 30 Days, #30 TAB Prov:HERRERA,BRANDON V. BAIT PACKER 03/23/17 Insulin Glargine* (Lantus*) 100 Unit/Ml Soln, 45 UNIT SC HS for 30 Days, #1 SYR Prov:HERRERA,BRANDON V. BAIT PACKER 03/23/17 Collagenase* (Santyl*) 30 Gm Oint..gm., 1 APPLIC TOP DAILY for 42 Days, #1 APPLY TO LEFT TOW WOUND AFTER CLEANING WITH NORMAL SALINE AND APPLY KERLIX DRESSING. Prov:HERRERA,BRANDON V. BAIT PACKER 03/23/17 Doxycycline* (Vibramycin*) 100 Mg Tab, 100 MG PO BID for 28 Days, #56 TAB Prov:HERRERA,BRANDON V. BAIT PACKER 03/23/17 Hydrocodone/Acetaminophen (Wilkinson 5-325 Tablet) 1 Each Tablet, 1 TAB PO Q6H Y for PAIN, #20 TAB Prov:FLAVIOVAISHALI Valentino. BAIT PACKER 03/14/17 Reported Medications Sitagliptin Phos/Metformin HCl (Janumet 50-1,000 mg Tablet) 1 Each Tablet, 1 EACH PO BID, TAB 03/15/17 Ergocalciferol (Vitamin D2) (VITAMIN D2) 2,000 Unit Tablet, 2000 UNIT PO DAILY, TAB 03/15/17 Primary Care Provider Hannah Dubois DO Time spent on discharge: > 30 minutes Pending Labs Laboratory Tests Test 04/14/17 17:23 04/14/17 20:27 04/15/17 02:15 04/15/17 07:50 Bedside Glucose 166mg/dL (70-220) 200mg/dL (70-220) 128mg/dL (70-220) Vancomycin Level Trough 13.8ug/ml (10.0-20.0) Test 04/15/17 08:13 04/15/17 11:57 Bedside Glucose 121mg/dL (70-220) 224mg/dL (70-220) SANAZ ALFARO MD Apr 15, 2017 12:46
[2017-04-15 14:00] VITALS: BP 144/72; RESP 19
[2017-04-15] MEDS: CEFTRIAXONE 1 GM/50 ML (PMX) 50 ML IVPB SCH (15:29)
[2017-04-15 20:18] VITALS: BP 111/66; RESP 18
== END 2017-04-15 18:30 | disposition home health service (06) | DRG 253 ==
LOC: FTE 23:35 → INTOOBSV 04-04 03:40 → MS4 04-04 03:40 → OBSVTOIN 04-05 10:08 → PP2 04-06 14:12
PROVIDERS: ADMIT Internal Medicine; ATTEND Internal Medicine
PROC: 047U3ZZ Dilation of Left Peroneal Artery, Percutaneous Approach (ICD-10-PCS; 2017-04-11)
PROC: B41GYZZ Fluoroscopy of Left Lower Extremity Arteries using Other Contrast (ICD-10-PCS; 2017-04-11)
PROC: B410YZZ Fluoroscopy of Abdominal Aorta using Other Contrast (ICD-10-PCS; 2017-04-11)
PROC: 047L3DZ Dilation of Left Femoral Artery with Intraluminal Device, Percutaneous Approach (ICD-10-PCS; principal; 2017-04-11 15:30)
PROC: 047S3ZZ Dilation of Left Posterior Tibial Artery, Percutaneous Approach (ICD-10-PCS; 2017-04-11 15:30)
DX: E11.52 Type 2 diabetes mellitus with diabetic peripheral angiopathy with gangrene (principal); I70.262 Atherosclerosis of native arteries of extremities with gangrene, left leg; E11.42 Type 2 diabetes mellitus with diabetic polyneuropathy; E11.621 Type 2 diabetes mellitus with foot ulcer; M86.9 Osteomyelitis, unspecified; E11.69 Type 2 diabetes mellitus with other specified complication; E11.65 Type 2 diabetes mellitus with hyperglycemia; L97.529 Non-pressure chronic ulcer of other part of left foot with unspecified severity; I10 Essential (primary) hypertension; B35.1 Tinea unguium; E78.5 Hyperlipidemia, unspecified; I70.201 Unspecified atherosclerosis of native arteries of extremities, right leg; J44.9 Chronic obstructive pulmonary disease, unspecified; R91.1 Solitary pulmonary nodule; E66.9 Obesity, unspecified; Z68.32 Body mass index [BMI] 32.0-32.9, adult; Z71.3 Dietary counseling and surveillance; Z86.73 Personal history of transient ischemic attack (TIA), and cerebral infarction without residual deficits; Z87.891 Personal history of nicotine dependence; Z79.4 Long term (current) use of insulin
CPT/HCPCS: 36415; 71010; 75630; 75635; 80048; 80053; 80202; 82565; 82962; 83690; 83735; 84520; 85025; 85610; 85651; 85730; 87040; 87081; 94010; 96374; 96375; G0378; C1725; C1760; C1769; C1875; C1887; C1894; J0360; J0692; J0696; J1644; J1815; J2250; J2270; J2405; J2997; J3010; J3370; J7030; J7040; J7050; Q9967

== ENCOUNTER 2017-04-21 22:23 | Emergency (ER) | payer OTHER ==
[~2017-04-21] VITALS: Ht 167.6 cm; Wt 86.4 kg
[~2017-04-21 22:23] MED LIST changes: +ADV25050 INH; +ASPI-664 PO; +ATOR40TA68 PO; -CEFT2FRO2 IV; +CLOP75TA28 PO; -DOXY100T2 PO; -SITA1TAB5 PO
[2017-04-21 22:26] VITALS: Ht 167.6 cm; Wt 86.4 kg
[2017-04-22] MEDS ORDERED: SOD CHLORIDE 0.9% 1,000 ML IV ONE (02:00)
[2017-04-22 02:20] LABS: BASOPHIL # 0.1 10^3/ul (0.0-0.1); EOSINOPHILS # 0.2 10^3/ul (0.0-0.5); EOSINOPHILS % 2.5 % (0.0-7.0); HEMATOCRIT 35.9 % (42.0-52.0); HEMOGLOBIN 11.9 g/dl (14.0-18.0); LYMPHOCYTES # 2.7 10^3/ul (0.8-2.9); LYMPHOCYTES % 34.1 % (15.0-51.0); MEAN CORPUSCULAR HEMOGLOBIN 31.1 pg (29.0-33.0); MEAN CORPUSCULAR HGB CONC 33.1 g/dl (32.0-37.0); MEAN CORPUSCULAR VOLUME 93.7 fl (82.0-101.0); MEAN PLATELET VOLUME 10.5 fl (7.4-10.4); MONOCYTE # 0.6 10^3/ul (0.3-0.9); NEUTROPHILS % 55.2 % (39.0-77.0); PLATELET COUNT 278 10^3/UL (140-415); RED BLOOD COUNT 3.83 10^6/ul (4.70-6.10)
[2017-04-22 02:41] LABS: ALBUMIN 3.5 g/dl (3.3-4.9); ALBUMIN/GLOBULIN RATIO 1.06; CALCIUM 8.9 mg/dl (8.4-10.2); CREATININE 1.31 mg/dl (0.61-1.24); POTASSIUM 3.9 mmol/L (3.5-5.1); TOTAL PROTEIN 6.8 g/dl (6.1-8.1)
--- NOTE | 2017-04-22 02:49 | RADRPT ---
PROCEDURE: Renal US. CLINICAL INDICATION: Acute renal failure on vancomycin TECHNIQUE: Multiple sonographic images of the kidneys and bladder were obtained. Study is suboptim al due to inability of patient to suspend motion. The images were reviewed on a PACS workstation. COMPARISON: No prior studies are available for comparison. FINDINGS: Right kidney measures 12.6 cm and the left kidney 10.3 cm in length. No definite renal mass, calculu s or hydronephrosis is seen bilaterally. No abnormality of the bladder is seen. IMPRESSION: No definite abnormality seen. Please see above. RPTAT: HJES .Mahesh Blackman MD, MD Date Time Electronically viewed and signed by .Mahesh Blackman MD, MD on 04/22/2017 02:49 .S/
[2017-04-22] MEDS ORDERED: HYDROCODONE/APAP (5/325) TAB PO ONE (03:00)
[2017-04-22] MEDS ORDERED: HYDR-906 PO (03:18)
--- NOTE | 2017-04-22 03:34 | ERD ---
ER Documentation Chief Complaint Date/Time DATE: 04/22/17 TIME: 03:25 Chief Complaint SENT FOR ELEVATED CREATININE, HAS PICC LINE IV ATB VANCO FOR FOOT ULCER HPI This 61-year-old male comes emergency room because home nurse that he had elevated creatinine and should come the ER and get his kidneys checked. Is on vancomycin for a chronic foot ulcer and his trough levels are monitored at home. He has no complaints. He has chronic foot pain is not on any neuropathy medications. No new physical symptoms. Normal urination. ROS All systems reviewed and are negative except as per history of present illness. Medications Home Meds Active Scripts Hydrocodone/Acetaminophen ([place] 5-325 Tablet) 1 Each Tablet, 1 EACH PO Q6 for 7 Days, TAB Prov:SANAZ KING DO 04/22/17 Salmeterol Xinaf/Fluticasone* (Advair*) 250-50 Diskus Inhaler, 1 INH INH BID for 30 Days Prov:SANAZ DAVIS MD 04/15/17 Aspirin* (Aspirin* EC) 81 Mg Tablet.dr, 81 MG PO DAILY for 30 Days Prov:SANAZ DAVIS MD 04/15/17 Atorvastatin* (Atorvastatin*) 40 Mg Tablet, 40 MG PO HS for 30 Days, TAB Prov:SANAZ DAVIS MD 04/15/17 Clopidogrel Bisulfate (Clopidogrel) 75 Mg Tablet, 75 MG PO DAILY for 30 Days, TAB Prov:SANAZ DAVIS MD 04/15/17 Valsartan* (Diovan*) 40 Mg Tablet, 40 MG PO BID for 30 Days, TAB Prov:SANAZ DAVIS MD 04/15/17 Amlodipine Besylate* (Norvasc*) 5 Mg Tablet, 2.5 MG PO DAILY for 30 Days, TAB Prov:SANAZ DAVIS MD 04/15/17 Insulin Aspart* (Novolog Insulin Pen*) 100 Unit/Ml Soln, 15 UNIT SC WITH MEALS for 30 Days, #1 SYR Prov:BRANDON HERRERA NP 03/23/17 Metformin Hcl (Glucophage) 500 Mg Tablet, 1000 MG PO BID WITH MEALS for 30 Days , #60 TAB Prov:BRANDON HERRERA NP 03/23/17 Linagliptin (TRADJENTA) 5 Mg Tablet, 5 MG PO DAILY for 30 Days, #30 TAB Prov:BRANDON HERRERA V. MANAGEMENT NURSE RN 03/23/17 Insulin Glargine* (Lantus*) 100 Unit/Ml Soln, 45 UNIT SC HS for 30 Days, #1 SYR Prov:HERRERAOMIDA V. MANAGEMENT NURSE RN 03/23/17 Collagenase* (Santyl*) 30 Gm Oint..gm., 1 APPLIC TOP DAILY for 42 Days, #1 APPLY TO LEFT TOW WOUND AFTER CLEANING WITH NORMAL SALINE AND APPLY KERLIX DRESSING. Prov:OMID HERRERAA Keila. MANAGEMENT NURSE RN 03/23/17 Hydrocodone/Acetaminophen ([place] 5-325 Tablet) 1 Each Tablet, 1 TAB PO Q6H Y for PAIN, #20 TAB Prov:VAISHALI MUNIZ MANAGEMENT NURSE RN 03/14/17 Reported Medications Ergocalciferol (Vitamin D2) (VITAMIN D2) 2,000 Unit Tablet, 2000 UNIT PO DAILY, TAB 03/15/17 Discontinued Reported Medications Sitagliptin Phos/Metformin HCl (Janumet 50-1,000 mg Tablet) 1 Each Tablet, 1 EACH PO BID, TAB 03/15/17 Discontinued Scripts Doxycycline* (Vibramycin*) 100 Mg Tab, 100 MG PO BID for 28 Days, #56 TAB Prov:BRANDON HERRERA V. MANAGEMENT NURSE RN 03/23/17 Allergies Allergies: Coded Allergies: No Known Allergy (Unverified , 04/21/17) PMhx/Soc Medical and Surgical Hx: Unable to obtain History of Surgery: Yes Anesthesia Reaction: No Hx Neurological Disorder: No Hx Respiratory Disorders: No Hx Cardiac Disorders: Yes (htn) Hx Psychiatric Problems: No Hx Miscellaneous Medical Probl: Yes (diabetic ulcer) Hx Alcohol Use: Yes Hx Substance Use: No Hx Tobacco Use: No Smoking Status: Never smoker Physical Exam Vitals Vital Signs Date Time Temp Pulse Resp B/P Pulse Ox O2 Delivery O2 Flow Rate FiO2 04/22/17 00:30 98.3 77 18 158/69 100 04/21/17 22:26 98.4 83 18 169/74 100 Physical Exam Const: [] No distress Head: Atraumatic Eyes: Normal Conjunctiva ENT: Normal External Ears, Nose and Mouth. Neck: Full range of motion..~ No meningismus. Resp: Clear to auscultation bilaterally Cardio: Regular rate and rhythm, no murmurs Abd: Soft, non tender, non distended. Normal bowel sounds Skin: No petechiae or rashes Ext: No cyanosis, or edema, Distal is intact bilateral lower extremities, foot ulceration with no signs of erythema or calor. No infectious signs Neur: Awake and alert Psych: Normal Mood and Affect Result Diagram: 04/22/17 0156 04/22/17 0156 Results 24 hrs Laboratory Tests Test 04/22/17 01:56 White Blood Count 8.010^3/ul Red Blood Count 3.8310^6/ul Hemoglobin 11.9g/dl Hematocrit 35.9% Mean Corpuscular Volume 93.7fl Mean Corpuscular Hemoglobin 31.1pg Mean Corpuscular Hemoglobin Concent 33.1g/dl Red Cell Distribution Width 13.0% Platelet Count 01808^3/UL Mean Platelet Volume 10.5fl Neutrophils % 55.2% Lymphocytes % 34.1% Monocytes % 7.0% Eosinophils % 2.5% Basophils % 1.0% Nucleated Red Blood Cells % 0.0/100WBC Neutrophils # (Manual) 4.410^3/ul Lymphocytes # 2.710^3/ul Monocytes # 0.610^3/ul Eosinophils # 0.210^3/ul Basophils # 0.110^3/ul Nucleated Red Blood Cells # 0.010^3/ul Sodium Level 139mmol/L Potassium Level 3.9mmol/L Chloride Level 105mmol/L Carbon Dioxide Level 25mmol/L Anion Gap 13 Blood Urea Nitrogen 27mg/dl Creatinine 1.31mg/dl Glucose Level 199mg/dl Calcium Level 8.9mg/dl Total Bilirubin 0.0mg/dl Direct Bilirubin 0.00mg/dl Indirect Bilirubin 0.0mg/dl Aspartate Amino Transf (AST/SGOT) 18IU/L Alanine Aminotransferase (ALT/SGPT) 37IU/L Alkaline Phosphatase 125IU/L Total Protein 6.8g/dl Albumin 3.5g/dl Globulin 3.30g/dl Albumin/Globulin Ratio 1.06 Lipase 193U/L Current Medications Medications (Trade) Dose Ordered Sig/Patricia Route PRN Reason Start Time Stop Time Status Last Admin Dose Admin Sodium Chloride (NS) 1,000 ml @ 1,000 mls/hr Q1H ONCE IV 04/22/17 02:00 04/22/17 02:59 DC 04/22/17 02:02 Acetaminophen/ Hydrocodone Bitart ([place] (5/325)) 1 tab ONCE ONCE PO 04/22/17 03:00 04/22/17 03:09 DC 04/22/17 03:16 Procedures/MDM Mild renal insufficiency and vancomycin. Patient was hydrated with normal saline. Is also given a [place] for his chronic foot pain which helped greatly. My discharge was 7 [place] instruction follow-up his primary care doctor. Renal ultrasound was performed show no anatomical abnormalities. Of discharge in both copies of his ultrasound report and laboratories. Encouraged him to drink fluids. Return precautions given Ultrasound renal interpretation: No abnormalities. Normal appearance of kidneys with no hydronephrosis or abnormal echogenic texture. Departure Diagnosis: Primary Impression: Foot pain Additional Impression: Renal insufficiency Condition: Stable Patient Instructions: Renal Insufficiency Additional Instructions: Llame al doctor RICH y kaiden zaira AKUA PARA DENTRO DE 2-3 MEJIA.Dgale a la secretaria que nosotros le instruimos hacer esta akua.Avise o llame si page condicin se empeora antes de la akua. Regresa aqui si peor o no mejor. SANAZ KING DO Apr 22, 2017 03:34
[2017-04-22 03:37] VITALS: BP 139/74; PULSE 72; RESP 18; TEMP 98.3
== END 2017-04-22 03:39 | disposition home or self-care (01) ==
LOC: E/R 22:23
DX: M79.671 Pain in right foot (principal); M79.672 Pain in left foot; N28.9 Disorder of kidney and ureter, unspecified; I10 Essential (primary) hypertension; E11.9 Type 2 diabetes mellitus without complications; Z79.4 Long term (current) use of insulin; Z79.82 Long term (current) use of aspirin; Z79.84 Long term (current) use of oral hypoglycemic drugs
CPT/HCPCS: 36415; 76775; 80053; 83690; 85025; J7030; Z7502; Z7610

== ENCOUNTER 2017-05-13 09:11 | Emergency (ER) | payer OTHER ==
[~2017-05-13] VITALS: Ht 162.6 cm; Wt 84.0 kg
[2017-05-13 09:13] VITALS: Ht 162.6 cm; Wt 84.0 kg
[2017-05-13 09:34] VITALS: BP 127/71; PULSE 74; RESP 17
--- NOTE | 2017-05-13 09:41 | ERD ---
ER Documentation Chief Complaint Date/Time DATE: 05/13/17 TIME: 09:41 Chief Complaint for picc line removal HPI 61-year-old male with a history of peripheral arterial disease and diabetes with recent left great toe osteomyelitis presenting for removal of his PICC line. He states that he finished his IV antibiotics at home about 3 days ago. Ever since then he has not seen a home health nurse. He would like his left upper extremity PICC line removed or the dressing changed. He states his toe is much better. He denies any pain or any other symptoms. He is not sure when he is supposed to follow-up with his surgeon. ROS All systems reviewed and are negative except as per history of present illness. Medications Home Meds Active Scripts Hydrocodone/Acetaminophen ([place] 5-325 Tablet) 1 Each Tablet, 1 EACH PO Q6 for 7 Days, TAB Prov:SANAZ KING DO 04/22/17 Salmeterol Xinaf/Fluticasone* (Advair*) 250-50 Diskus Inhaler, 1 INH INH BID for 30 Days Prov:SANAZ DAVIS MD 04/15/17 Aspirin* (Aspirin* EC) 81 Mg Tablet.dr, 81 MG PO DAILY for 30 Days Prov:SANAZ DAVIS MD 04/15/17 Atorvastatin* (Atorvastatin*) 40 Mg Tablet, 40 MG PO HS for 30 Days, TAB Prov:SANAZ DAVIS MD 04/15/17 Clopidogrel Bisulfate (Clopidogrel) 75 Mg Tablet, 75 MG PO DAILY for 30 Days, TAB Prov:SANAZ DAVIS MD 04/15/17 Valsartan* (Diovan*) 40 Mg Tablet, 40 MG PO BID for 30 Days, TAB Prov:SANAZ DAVIS MD 04/15/17 Amlodipine Besylate* (Norvasc*) 5 Mg Tablet, 2.5 MG PO DAILY for 30 Days, TAB Prov:SANAZ DAVIS MD 04/15/17 Insulin Aspart* (Novolog Insulin Pen*) 100 Unit/Ml Soln, 15 UNIT SC WITH MEALS for 30 Days, #1 SYR Prov:BRANDON HERRERA NP 03/23/17 Metformin Hcl (Glucophage) 500 Mg Tablet, 1000 MG PO BID WITH MEALS for 30 Days , #60 TAB Prov:BRANDON HERRERA V. LAB DIRECTOR 03/23/17 Linagliptin (TRADJENTA) 5 Mg Tablet, 5 MG PO DAILY for 30 Days, #30 TAB Prov:HERRERAALFREDITOBRANDON V. LAB DIRECTOR 03/23/17 Insulin Glargine* (Lantus*) 100 Unit/Ml Soln, 45 UNIT SC HS for 30 Days, #1 SYR Prov:HERRERA,BRANDON V. LAB DIRECTOR 03/23/17 Collagenase* (Santyl*) 30 Gm Oint..gm., 1 APPLIC TOP DAILY for 42 Days, #1 APPLY TO LEFT TOW WOUND AFTER CLEANING WITH NORMAL SALINE AND APPLY KERLIX DRESSING. Prov:HERRERA,BRANDON V. LAB DIRECTOR 03/23/17 Hydrocodone/Acetaminophen ([place] 5-325 Tablet) 1 Each Tablet, 1 TAB PO Q6H Y for PAIN, #20 TAB Prov:FLAVIOVAISHALI X. LAB DIRECTOR 03/14/17 Reported Medications Ergocalciferol (Vitamin D2) (VITAMIN D2) 2,000 Unit Tablet, 2000 UNIT PO DAILY, TAB 03/15/17 Allergies Allergies: Coded Allergies: No Known Allergy (Unverified , 04/21/17) PMhx/Soc History of Surgery: Yes (left hernia repair ) Anesthesia Reaction: No Hx Neurological Disorder: No Hx Respiratory Disorders: No Hx Cardiac Disorders: Yes (htn) Hx Psychiatric Problems: No Hx Miscellaneous Medical Probl: Yes (right toe diabetic ulcer, DM) Hx Alcohol Use: Yes (socially) Hx Substance Use: No Hx Tobacco Use: No Smoking Status: Never smoker FmHx Family History: No coronary disease Physical Exam Vitals Vital Signs Date Time Temp Pulse Resp B/P Pulse Ox O2 Delivery O2 Flow Rate FiO2 05/13/17 09:34 74 17 127/71 100 Room Air 05/13/17 09:13 98.3 82 19 131/70 98 Physical Exam Const: No appearing, no apparent distress HEENT: Atraumatic, normal conjunctivae, moist mucous membranes Resp: Clear to auscultation bilaterally Cardio: Regular rate and rhythm, no murmurs Skin: No petechiae or rashes. healing wound on the plantar surface of the left big toe. No evidence of infection. Cap refill less than 2 seconds Back: No midline or flank tenderness Ext: No cyanosis, or edema. Cap refill less than 2 seconds Neur: Awake and alert Psych: Normal Mood and Affect Procedures/MDM Patient is presenting for possible PICC line removal. I discussed with the patient that I would rather him see his surgeon for complete clearance for his osteomyelitis. I stated that his surgeon can make the final decision whether the PICC line needs to be removed. However I do not know the plan that has been created for this patient, so I do not think PICC line removal at this time is the best option. I told him we can change the dressing of his PICC line and have him follow-up as an outpatient. He is agreeable with this plan. I gave him the number to Dr. Vizcaino's office. Patient agrees to contact him this week. Departure Diagnosis: Primary Impression: Encounter for wound re-check Additional Impression: PICC (peripherally inserted central catheter) in place Condition: Stable LYNNE GUAMAN MD May 13, 2017 09:41
== END 2017-05-13 12:33 | disposition home or self-care (01) ==
LOC: E/R 09:11
DX: Z48.01 Encounter for change or removal of surgical wound dressing (principal); E11.9 Type 2 diabetes mellitus without complications; I10 Essential (primary) hypertension; Z79.4 Long term (current) use of insulin; Z79.82 Long term (current) use of aspirin; Z79.84 Long term (current) use of oral hypoglycemic drugs
CPT/HCPCS: 99282

== ENCOUNTER 2017-12-15 19:48 | Emergency (ER) | END 2017-12-16 00:22 | disposition home or self-care (01) ==

== ENCOUNTER 2018-08-18 10:38 | Inpatient (IN) | payer OTHER ==
[~2018-08-18] VITALS: Ht 175.3 cm; Wt 96.4 kg
[~2018-08-18 10:38] MED LIST changes: +ACET325T33 PO; -ASPI-664 PO; +ASPI-817 PO; +CEPH-443 PO; +HYDR-4011 PO; -HYDR-906 PO
[2018-08-18 10:43] VITALS: Ht 175.3 cm; Wt 96.4 kg
[2018-08-18] MEDS ORDERED: FAMOTIDINE 20 MG INJ IV STA (11:24)
[2018-08-18] MEDS ORDERED: SOD CHLORIDE 0.9% 1,000 ML IV STA ×2 (11:24→14:28)
[2018-08-18] MEDS ORDERED: DEXTROSE 5%-0.45% NACL 500 ML BAG IV ONE (11:30)
[2018-08-18] MEDS ORDERED: THIAMINE 100 MG TAB PO ONE (11:30)
[2018-08-18] MEDS ORDERED: FOLIC ACID 1 MG TAB PO ONE (11:30)
[2018-08-18] MEDS ORDERED: ONDANSETRON 4 MG INJ IV STA (12:26)
--- NOTE | 2018-08-18 14:06 | ERD ---
ER Documentation Chief Complaint Chief Complaint Complains of abdominal pain and Vomiting with ETOH use since last night HPI During the patient's encounter translation services were utilized Language: Swedish Source: In person 62-year-old poor historian who presents to the emergency room complaining of epigastric abdominal discomfort, nausea and vomiting. The patient states that he is an alcoholic and has not been drinking for several months but started drinking over the past 24-48 hours. He describes multiple episodes of nonbloody nonbilious emesis, mild cramping and burning epigastric abdominal discomfort without radiation to the back. Also with multiple episodes of loose stools. He is additionally diabetic. Unknown glucose value. ROS All systems reviewed and are negative except as per history of present illness. Medications Home Meds Active Scripts Salmeterol Xinaf/Fluticasone* (Advair*) 250-50 Diskus Inhaler, 1 INH INH BID for 30 Days Prov:SANAZ DAVIS MD 04/15/17 Aspirin* (Aspirin* EC) 81 Mg Tablet.dr, 81 MG PO DAILY for 30 Days Prov:SANAZ DAVIS MD 04/15/17 Atorvastatin* (Atorvastatin*) 40 Mg Tablet, 40 MG PO HS for 30 Days, TAB Prov:SANAZ DAVIS MD 04/15/17 Clopidogrel Bisulfate (Clopidogrel) 75 Mg Tablet, 75 MG PO DAILY for 30 Days, TAB Prov:SANAZ DAVIS MD 04/15/17 Valsartan* (Diovan*) 40 Mg Tablet, 40 MG PO BID for 30 Days, TAB Prov:SANAZ DAVIS MD 04/15/17 Amlodipine Besylate* (Norvasc*) 5 Mg Tablet, 2.5 MG PO DAILY for 30 Days, TAB Prov:SANAZ DAVIS MD 04/15/17 Insulin Aspart* (Novolog Insulin Pen*) 100 Unit/Ml Soln, 15 UNIT SC WITH MEALS for 30 Days, #1 SYR Prov:HERRERA,BRANDON V. BOXING TRAINER 03/23/17 Metformin Hcl (Glucophage) 500 Mg Tablet, 1000 MG PO BID WITH MEALS for 30 Days, #60 TAB Prov:HERRERA,BRANDON V. BOXING TRAINER 03/23/17 Linagliptin (TRADJENTA) 5 Mg Tablet, 5 MG PO DAILY for 30 Days, #30 TAB Prov:HERRERA,BRANDON V. BOXING TRAINER 03/23/17 Insulin Glargine* (Lantus*) 100 Unit/Ml Soln, 45 UNIT SC HS for 30 Days, #1 SYR Prov:BRANDON HERRERA NP 03/23/17 Reported Medications Ergocalciferol (Vitamin D2) (VITAMIN D2) 2,000 Unit Tablet, 2000 UNIT PO DAILY, TAB 03/15/17 Discontinued Scripts Acetaminophen* (Tylenol*) 325 Mg Tablet, 1 TAB PO Q8 PRN for PAIN AND OR ELEVATED TEMP, #20 TAB Prov:GALA GALVIN MD 12/16/17 Cephalexin* (Keflex*) 500 Mg Capsule, 500 MG PO Q12 for 7 Days, #14 CAP Prov:GALA GALVIN MD 12/16/17 Hydrocodone/Acetaminophen ([place] 5-325 Tablet) 1 Each Tablet, 1 EACH PO Q6 for 7 Days, TAB Prov:SANAZ KING DO 04/22/17 Collagenase* (Santyl*) 30 Gm Oint..gm., 1 APPLIC TOP DAILY for 42 Days, #1 APPLY TO LEFT TOW WOUND AFTER CLEANING WITH NORMAL SALINE AND APPLY KERLIX DRESSING. Prov:BRANDON HERRERA NP 03/23/17 Hydrocodone/Acetaminophen ([place] 5-325 Tablet) 1 Each Tablet, 1 TAB PO Q6H PRN for PAIN, #20 TAB Prov:VAISHALI MUNIZ NP 03/14/17 Allergies Allergies: Coded Allergies: No Known Allergy (Unverified , 08/18/18) PMhx/Soc History of Surgery: Yes (left hernia repair ) Anesthesia Reaction: No Hx Neurological Disorder: No Hx Respiratory Disorders: No Hx Cardiac Disorders: Yes (htn, DYSLIPIDEMIA) Hx Psychiatric Problems: No Hx Miscellaneous Medical Probl: Yes (right toe diabetic ulcer, DM) Hx Alcohol Use: Yes (socially) Hx Substance Use: No Hx Tobacco Use: No FmHx Family History: diabetes Physical Exam Vitals Vital Signs Date Temp Pulse Resp B/P (MAP) Pulse Ox O2 O2 Flow FiO2 Time Delivery Rate 08/18/18 99.8 14:56 08/18/18 99.6 97 23 188/85 98 Room Air 14:37 (119) 08/18/18 97.2 91 20 196/91 97 10:43 (126) Physical Exam General: Disheveled malodorous gentleman who is dry heaving Head: Normocephalic, atraumatic. Eyes: Pupils equally reactive, EOM intact ENT: Moist mucous membranes Neck: Supple, no lymphadenopathy Respiratory: Lungs clear bilaterally, no distress Cardiovascular: RRR, no murmurs, rubs, or gallops Abdominal: Soft, mild epigastric abdominal tenderness without rebound or guarding, no peritonitis : Deferred MSK: No edema, no unilateral swelling, 5/5 strength Neurologic: Alert and oriented, moving all extremities, normal speech, no focal weakness, no cerebellar signs Skin: No rash Psych: Normal mood Result Diagram: 08/18/18 1148 08/18/18 1340 Results 24 hrs Laboratory Tests Test 08/18/18 11:48 08/18/18 12:56 08/18/18 13:40 White Blood Count 8.5 10^3/ul Red Blood Count 4.27 10^6/ul Hemoglobin 13.4 g/dl Hematocrit 37.5 % Mean Corpuscular Volume 87.8 fl Mean Corpuscular 31.4 pg Hemoglobin Mean Corpuscular 35.7 g/dl Hemoglobin Concent Red Cell Distribution 12.0 % Width Platelet Count 265 10^3/UL Mean Platelet Volume 10.3 fl Immature Granulocytes % 0.500 % Neutrophils % 75.0 % Lymphocytes % 14.9 % Monocytes % 8.0 % Eosinophils % 0.8 % Basophils % 0.8 % Nucleated Red Blood Cells 0.0 /100WBC % Immature Granulocytes # 0.040 10^3/ul Neutrophils # 6.4 10^3/ul Lymphocytes # 1.3 10^3/ul Monocytes # 0.7 10^3/ul Eosinophils # 0.1 10^3/ul Basophils # 0.1 10^3/ul Nucleated Red Blood Cells 0.0 10^3/ul # Sodium Level 131 mmol/L 131 mmol/L Potassium Level 3.9 mmol/L 3.3 mmol/L Chloride Level 95 mmol/L 97 mmol/L Carbon Dioxide Level 19 mmol/L 19 mmol/L Anion Gap 17 15 Blood Urea Nitrogen 10 mg/dl 10 mg/dl Creatinine 0.99 mg/dl 0.90 mg/dl Est Glomerular Filtrat > 60 mL/min > 60 mL/min Rate mL/min Glucose Level 413 mg/dl 450 mg/dl Calcium Level 8.2 mg/dl 7.5 mg/dl Total Bilirubin 0.3 mg/dl Direct Bilirubin 0.00 mg/dl Indirect Bilirubin 0.3 mg/dl Aspartate Amino 30 IU/L Transf (AST/SGOT) Alanine 32 IU/L Aminotransferase (ALT/SGP T) Alkaline Phosphatase 142 IU/L Total Protein 6.6 g/dl Albumin 3.5 g/dl Globulin 3.10 g/dl Albumin/Globulin Ratio 1.12 Lipase 127 U/L Urine Color STRAW Urine Clarity CLEAR Urine pH 7.0 Urine Specific [place] 1.005 Urine Ketones NEGATIVE mg/dL Urine Nitrite NEGATIVE mg/dL Urine Bilirubin NEGATIVE mg/dL Urine Urobilinogen NEGATIVE mg/dL Urine Leukocyte Esterase NEGATIVE Teresita/ul Urine Microscopic RBC 1 /HPF Urine Microscopic WBC 0 /HPF Urine Hemoglobin 1+ mg/dL Urine Glucose 3+ mg/dL Urine Total Protein 2+ mg/dl Blood Gas Specimen Source Blood venous Arterial Blood Date 08/18/2018 1:04:41 PM Drawn Arterial Blood Gas VENOUS LINE Puncture Site Demond Test N/A Venous Blood pH 7.382 Venous Blood pCO2 33.3 mmHG (Temp Corrected) Venous Blood pO2 64.3 mmHG (Temp Corrected) Venous Blood HCO3 19.3 mmol/L Venous Blood Oxygen 90.3 mmHG Saturation Venous Blood Base Excess -4.8 mmol/L Venous Blood Total 13.5 g/dl Hemoglobin Venous Blood 89.7 % Oxyhemoglobin Venous Blood 0 % Methemoglobin Carboxyhemoglobin 0.7 % Blood Gas Temperature 37.0 C Blood Gas Modality ROOM AIR FiO2 21.0 % Blood Gas Notified Whom M.D. Blood Gas Notified Time 08/18/2018 1:17:12 PM Current Medications Medications Dose Sig/Patricia Start Time Status Last (Trade) Ordered Route PRN Stop Time Admin Dose Reason Admin Sodium 1,000 ml @ Q1H STAT 08/18/18 DC 08/18/18 Chloride 1,000 mls/hr IV 11:24 12:17 08/18/18 12:23 Famotidine 20 mg ONCE STAT 08/18/18 DC 08/18/18 (Pepcid Iv) IV 11:24 12:17 08/18/18 11:26 500 ml ONCE ONCE 08/18/18 DC 08/18/18 Dextrose/Sodi IV 11:30 12:11 um Chloride 08/18/18 (D5-1/2ns) 11:31 Thiamine 100 mg ONCE ONCE 08/18/18 DC 08/18/18 HCl PO 11:30 12:17 (Vitamin B1) 08/18/18 11:31 Folic Acid 1 mg ONCE ONCE 08/18/18 DC 08/18/18 (Folic Acid) PO 11:30 12:18 08/18/18 11:31 Ondansetron 4 mg ONCE STAT 08/18/18 DC 08/18/18 HCl (Zofran IV 12:26 12:33 Inj) 08/18/18 12:28 Insulin 10 unit ONCE ONCE 08/18/18 DC 08/18/18 Human SC 14:30 14:59 Lispro 08/18/18 (Humalog) 14:31 Lorazepam 2 mg ONCE ONCE 08/18/18 DC 08/18/18 (Ativan) IV 14:30 14:56 08/18/18 14:31 Sodium 1,000 ml @ Q1H STAT 08/18/18 08/18/18 Chloride 1,000 mls/hr IV 14:28 14:56 08/18/18 15:27 1 ea NOTE XX 08/18/18 Miscellaneous 14:30 Information Glucose 15 gm Q15M PRN 08/18/18 (Glutose) PO DECREASED 14:30 GLUCOSE Glucose 22.5 gm Q15M PRN 08/18/18 (Glutose) PO DECREASED 14:30 GLUCOSE Dextrose 25 ml Q15M PRN 08/18/18 (D50w IV DECREASED 14:30 Syringe) GLUCOSE Dextrose 50 ml Q15M PRN 08/18/18 (D50w IV DECREASED 14:30 Syringe) GLUCOSE Glucagon 1 mg Q15M PRN 08/18/18 (Glucagen) IM DECREASED 14:30 GLUCOSE Glucose 15 gm Q15M PRN 08/18/18 (Glutose) BUCCAL 14:30 DECREASED GLUCOSE 1,000 mg ONCE STAT 08/18/18 DC 08/18/18 Acetaminophen PO 14:35 14:56 (Tylenol 08/18/18 Tab) 14:37 Procedures/MDM LAB INTERPRETATION: * CBC shows no leukocytosis with a white count of 8.5, hemoglobin 13.4 * Chemistry profile shows a borderline acidosis with hyperglycemia 413 however bicarb is 19. Normal LFTs and lipase * Urinalysis without ketones, venous blood gas shows normal pH MEDICAL DECISION MAKING: The patient presents with nausea vomiting diarrhea in the setting of heavy alcohol use. The patient exhibits signs and symptoms consistent with dehydration, concern for possible alcoholic ketoacidosis. The patient is additionally a diabetic. Abdominal exam is benign with low concern for acute abdominal process. ER COURSE: * The patient was given IV fluids, dextrose solution, thiamine and folic acid * Laboratory testing shows acidosis but borderline bicarbonate. The patient has no ketones and a normal pH, the patient's acidosis is more likely secondary to alcoholic ketoacidosis rather than DKA. I do not believe the patient requires insulin drip but repeat laboratory testing will be appropriate after fluid resuscitation. * Patient was given appropriate treatment for alcoholic ketoacidosis including dextrose solution, thiamine and folic acid as documented above. * The patient's repeat chemistry is improving. The patient's bicarbonate remains 19. Anion gap is improving. The patient still remains hyperglycemic and was given 10 units of Humalog * Unfortunately at this time the patient is exhibiting signs of alcohol withdrawal. 2 mg of Ativan provided. The patient has already received thiamine and folic acid. Inpatient hospitalization seems likely given the patient has high risk. * Again, I do not believe this is consistent with diabetic ketoacidosis given no ketosis and normal pH on venous blood gas. Humalog provided. Fluid resuscitation initiated. * The patient had a low-grade temperature in the emergency room setting. No obvious source of infection likely viral. Blood cultures, urine cultures, stool cultures, influenza have been sent. No indication for antibiotics. Repeat abdominal exam benign. * Given the persistent symptoms, complicated mentation and limited outpatient follow-up the patient cannot be stabilized despite 4 hours of efforts in the emergency room setting. He will be admitted for further management. CONSULTATION: [None] DISPOSITION PLAN: Telemetry admission for alcohol withdrawal Accepting care team and consultations: I discussed the current laboratory data, diagnostic imaging and emergency care provided. Admitting team: Dr. Gutierrez Admitting team indication: Insurance directed Departure Diagnosis: Primary Impression: Hyperglycemia without ketosis Additional Impressions: Alcoholic ketoacidosis Alcohol abuse Nausea vomiting and diarrhea Epigastric abdominal pain Condition: Stable DARCIE SKINNER MD Aug 18, 2018 14:06
[2018-08-18] MEDS ORDERED: LORAZEPAM 2 MG INJ IV ONE (14:30)
[2018-08-18] MEDS ORDERED: GLUCOSE GEL 15 GRAM TUBE BUCCAL PRN (14:30)
[2018-08-18] MEDS ORDERED: INSULIN LISPRO 100 UNIT/ML VIAL SC ONE (14:30)
[2018-08-18] MEDS ORDERED: DEXTROSE 50% 50 ML SYRINGE IV PRN ×2 (14:30)
[2018-08-18] MEDS ORDERED: GLUCOSE GEL 15 GRAM TUBE PO PRN ×2 (14:30)
[2018-08-18] MEDS ORDERED: GLUCAGON 1 MG INJ IM PRN (14:30)
[2018-08-18] MEDS ORDERED: ACETAMINOPHEN 500 MG TAB PO STA (14:35)
[2018-08-18] MEDS ORDERED: ACETAMINOPHEN 325 MG TAB PO PRN (15:30)
[2018-08-18] MEDS ORDERED: MAGNESIUM HYDROXIDE 30ML CUP PO PRN (15:30)
[2018-08-18] MEDS ORDERED: DOCUSATE SODIUM 100 MG CAP PO PRN (15:30)
[2018-08-18] MEDS ORDERED: NACL 0.9% 3 ML SYG IV SCH (15:30)
[2018-08-18] MEDS ORDERED: LORAZEPAM 4 MG/ML VIAL IV PRN ×2 (15:30)
[2018-08-18] MEDS ORDERED: ONDANSETRON 4 MG INJ IV PRN ×2 (15:30)
--- NOTE | 2018-08-18 15:30 | HP ---
Date/Time of Note Date/Time of Note DATE: 08/18/18 TIME: 15:30 Assessment/Plan VTE Prophylaxis SCD applied (from Nsg): Yes Pharmacological prophylaxis: LMWH Lines/Catheters IV Catheter Type (from Nrsg): Saline Lock Assessment/Plan Assessment/Plan 1. Acute alcohol intoxication - will give IV fluids, banana bag, and PRN ativan - Librium started and will need quick taper - monitor for withdrawal and DTs 2. Metabolic acidosis secondary to alcohol ketoacidosis - Will hydrate but no need for bicarb drip at this time - ABG appreciated - Will continue to monitor 3. Hypokalemia - will replaced - continue to monitor 4. Diabetes Mellitus with hyperglycemia - A1c noted - glucose at time of admission was 450 and given insulin - Continue home novolog and Lantus. adjust as needed - ISS and accuchecks 5. HTN - will resume home medications and adjust for better control - PRN hydralazine on board 6. PVD - on aspirin and plavix 7. h/o CVA - aspirin on board 8. DVT ppx - SCD - LMWH 9. GI ppx - PPI BID 10. Diet - Carb controlled 11. Disposition - Admit to telemetry to monitor for acute alcohol withdrawal and control of hyperglycemia Result Diagram: 08/18/18 1148 08/18/18 1340 Results 24hrs Laboratory Tests Test 08/18/18 11:48 08/18/18 12:56 08/18/18 13:40 White Blood Count 8.5 Red Blood Count 4.27 L Hemoglobin 13.4 L Hematocrit 37.5 L Mean Corpuscular Volume 87.8 Mean Corpuscular 31.4 Hemoglobin Mean Corpuscular 35.7 Hemoglobin Concent Red Cell Distribution 12.0 Width Platelet Count 265 Mean Platelet Volume 10.3 Immature Granulocytes % 0.500 H Neutrophils % 75.0 Lymphocytes % 14.9 L Monocytes % 8.0 Eosinophils % 0.8 Basophils % 0.8 Nucleated Red Blood Cells 0.0 % Immature Granulocytes # 0.040 H Neutrophils # 6.4 Lymphocytes # 1.3 Monocytes # 0.7 Eosinophils # 0.1 Basophils # 0.1 Nucleated Red Blood Cells 0.0 # Sodium Level 131 L 131 L Potassium Level 3.9 3.3 L Chloride Level 95 L 97 Carbon Dioxide Level 19 L 19 L Anion Gap 17 H 15 H Blood Urea Nitrogen 10 10 Creatinine 0.99 0.90 Est Glomerular Filtrat > 60 > 60 Rate mL/min Glucose Level 413 *H 450 *H Calcium Level 8.2 L 7.5 L Total Bilirubin 0.3 Direct Bilirubin 0.00 Indirect Bilirubin 0.3 Aspartate Amino 30 Transf (AST/SGOT) Alanine 32 Aminotransferase (ALT/SGP T) Alkaline Phosphatase 142 H Total Protein 6.6 Albumin 3.5 Globulin 3.10 Albumin/Globulin Ratio 1.12 Lipase 127 Urine Color STRAW Urine Clarity CLEAR Urine pH 7.0 Urine Specific [place] 1.005 Urine Ketones NEGATIVE Urine Nitrite NEGATIVE Urine Bilirubin NEGATIVE Urine Urobilinogen NEGATIVE Urine Leukocyte Esterase NEGATIVE Urine Microscopic RBC 1 Urine Microscopic WBC 0 Urine Hemoglobin 1+ H Urine Glucose 3+ H Urine Total Protein 2+ H Blood Gas Specimen Source Blood venous Arterial Blood Date 08/18/2018 1:04:41 PM Drawn Arterial Blood Gas VENOUS LINE Puncture Site Demond Test N/A Venous Blood pH 7.382 Venous Blood pCO2 33.3 L (Temp Corrected) Venous Blood pO2 64.3 H (Temp Corrected) Venous Blood HCO3 19.3 L Venous Blood Oxygen 90.3 H Saturation Venous Blood Base Excess -4.8 Venous Blood Total 13.5 Hemoglobin Venous Blood 89.7 Oxyhemoglobin Venous Blood 0 Methemoglobin Carboxyhemoglobin 0.7 Blood Gas Temperature 37.0 Blood Gas Modality ROOM AIR FiO2 21.0 Blood Gas Notified Whom Jenaro Blood Gas Notified Time 08/18/2018 1:17:12 PM HPI/ROS Admit Date/Time Admit Date/Time 08/18/18 at 1600 Hx of Present Illness 62 yo M with PMH DM, CVA, h/o left foot OM, HTN, and alcohol abuse presented to ED with acute alcohol intoxication. Patient states he was sober for 14 months but then started drinking again for the past 3 days. Patient is a poor hist orian and mumbling most answers and falling asleep. He does admit to having associated epigastric burning, nausea, vomiting, and diarrhea today. He is asking for food as well and stating he is hungry. States he has been taking his medications for diabetes over the past 3 days during his binge drinking but unsure how reliable. Patient denies chest pain, shortness of breath, dizziness, constipation, urinary issues, or LOC. ROS All 12 systems reviewed and pertinent positives as per HPI. All others negative. Constitutional: nausea; No chills, No fatigue Eyes: No discharge ENT: No congestion Respiratory: No pain, No cough, No shortness of breath, No sputum, No wheezing Cardiovascular: No chest pain, No lightheadedness, No palpitations Gastrointestinal: pain, diarrhea, nausea, vomiting Genitourinary: no complaints Musculoskeletal: no complaints Skin: no complaints Neurologic: confusion Endocrine: no complaints Lymphatic: no complaints Psychological: nl mood/affect Immunologic: no complaints PMH/Family/Social Past Medical History Medical History: diabetes, hypertension, other (left foot OM, CVA) Medications Current Medications Sodium Chloride 1,000 ml @ 1,000 mls/hr Q1H STAT IV Last administered on 08/18/18at 14:56; Admin Dose 1,000 MLS/HR; Start 08/18/18 at 14:28; Stop 08/18/18 at 15:27 Miscellaneous Information 1 ea NOTE XX ; Start 08/18/18 at 14:30 Glucose (Glutose) 15 gm Q15M PRN PO DECREASED GLUCOSE; Start 08/18/18 at 14:30 Glucose (Glutose) 22.5 gm Q15M PRN PO DECREASED GLUCOSE; Start 08/18/18 at 14:30 Dextrose (D50w Syringe) 25 ml Q15M PRN IV DECREASED GLUCOSE; Start 08/18/18 at 14:30 Dextrose (D50w Syringe) 50 ml Q15M PRN IV DECREASED GLUCOSE; Start 08/18/18 at 14:30 Glucagon (Glucagen) 1 mg Q15M PRN IM DECREASED GLUCOSE; Start 08/18/18 at 14:30 Glucose (Glutose) 15 gm Q15M PRN BUCCAL DECREASED GLUCOSE; Start 08/18/18 at 14:30 Ondansetron HCl (Zofran Inj) 4 mg ER BRIDGE PRN IV NAUSEA AND/OR VOMITING; Start 08/18/18 at 15:30; Stop 08/19/18 at 15:29 Acetaminophen (Tylenol Tab) 650 mg ER BRIDGE PRN PO MILD PAIN(1-3)OR ELEVATED TEMP; Start 08/18/18 at 15:30; Stop 08/19/18 at 15:29 Coded Allergies: No Known Allergy (Unverified , 08/18/18) Past Surgical History Past Surgical Hx: noncontributory Family History Significant Family History: no pertinent family hx Social History Alcohol Use: heavy (past 2-3 days, sober for 14 months) Smoking Status: Never smoker Drug Use: none Exam/Review of Systems Vital Signs Vitals Vital Signs Date Temp Pulse Resp B/P (MAP) Pulse Ox O2 O2 Flow FiO2 Time Delivery Rate 08/18/18 99.8 14:56 08/18/18 97 23 188/85 98 Room Air 14:37 (119) Exam Exam General: no acute distress. going in and out of sleep. mumbling answers and incoherent at times HEENT: NC/AT. PERRL. EOM intact Neck: supple CVS: S1, S2, regular rate and rhythm. no murmurs Lung: clear bilaterally, diminished. no wheezing or rhonchi Abd: soft, tender in epigastric area, no rebound or guarding. +BS appreciated Ext: moving all extremities. no cyanosis, clubbing or edema Skin: no rashes or lesions appreciated Neuro: no focal deficits appreciated Additional Comments Home medications reviewed PROCEDURE: XR Right Wrist. CLINICAL INDICATION: Pain post fall TECHNIQUE: Three views of the right wrist were obtained. COMPARISON: No prior studies are available for comparison. FINDINGS: There is no acute fracture or dislocation. There is mild joint space narrowing and osseous spurring of the triscaphe, first carpometacarpal, and radioscaphoid articulations with mild osseous spurring. There is also joint space narrowing with osseous spurring at the ulnocarpal joint with ulnar positive variance. There is slight dorsal subluxation of the distal ulna relative to the radius. No erosive changes are visualized. The carpal bones are intact. Mild soft tissue swelling is noted around the wrist. RPTAT: ZZ IMPRESSION: 1. No acute bony abnormality. 2. Mild degenerative changes within the wrist as described above. 3. Ulnar positive variance with slight dorsal subluxation of the distal ulna relative to the radius. Findings can be seen with a TFCC injury and distal radioulnar joint injury. .Maritza Barron MD, Date Time Electronically viewed and signed by .Maritza Barron MD, on 08/18/2018 12:27 PROCEDURE: XR Knee. CLINICAL INDICATION: Pain post fall TECHNIQUE: Three views of the left knee are available for review. COMPARISON: CT angiogram runoff from 04/09/2017 FINDINGS: There is no acute fracture or dislocation. There is mild joint space narrowing within the patellofemoral compartment. Minimal joint space narrowing of the lateral compartment is also present. No significant joint effusion is present. There is a stent within the soft tissues of the posterior distal thigh. Atherosclerotic vascular calcifications are present. The soft tissues are otherwise unremarkable. RPTAT: ZZ IMPRESSION: 1. No acute bony abnormality. 2. Minimal degenerative changes within the knee. 3. Stent within the soft tissues of the posterior distal thigh which may be within the distal femoral/popliteal artery with atherosclerotic vascular disease. .Maritza Barron MD, MD Date Time Electronically viewed and signed by .Maritza Barron MD, MD on 08/18/2018 12:30 CALI PRADO MD Aug 18, 2018 15:30
[2018-08-18 17:25] VITALS: BP 184/88; PULSE 86; RESP 18
[2018-08-18] MEDS: SOD CHLORIDE 0.9% 1,000 ML IV SCH (17:30)
[2018-08-18] MEDS: hydrALAzine 20 MG INJ IV PRN (17:38)
[2018-08-18] MEDS: INSULIN ASPART [NOVOLOG] 3 ML PEN SC SCH ×3 (17:55→21:00)
[2018-08-18 17:59] VITALS: PULSE 84
[2018-08-18] MEDS ORDERED: ENALAPRILAT 1.25 MG INJ IV PRN (18:30)
[2018-08-18 20:00] VITALS: PULSE 89
[2018-08-18 20:04] VITALS: BP 122/67; PULSE 91; RESP 18
[2018-08-18] MEDS: CHLORDIAZEPOXIDE 25 MG CAP PO SCH (20:50)
[2018-08-18] MEDS: GUAIFENESIN LA 600 MG TABSR PO SCH (20:51)
[2018-08-18] MEDS: LORATADINE 10 MG TAB PO SCH (20:51)
[2018-08-18] MEDS: ATORVASTATIN 40 MG TAB PO SCH (20:51)
[2018-08-18] MEDS: LOSARTAN 25 MG TAB PO SCH (20:51)
[2018-08-18] MEDS: PANTOPRAZOLE 40 MG INJ IV SCH (20:52)
[2018-08-18] MEDS: POTASSIUM CHLORIDE 100 ML IVPB SCH ×2 (20:54→23:03)
[2018-08-18] MEDS ORDERED: INSULIN GLARGINE [LANTus] (100 UNITS/ML) SYG SC SCH (21:00)
[2018-08-18] MEDS: MULTIVITAMINS 10 ML, THIAMINE 100 MG, FOLIC ACID 1 MG in SOD CHLORIDE 0.9% 1,000 ML IVPB SCH (21:28)
[2018-08-18 21:48] VITALS: PULSE 151
[2018-08-18] MEDS: INSULIN GLARGINE [LANTus] (100 UNITS/ML) SYG SC SCH (22:21)
[2018-08-19] VITALS (11 sets, daily range): BP systolic 120–170; BP diastolic 58–81; PULSE 76–95; RESP 18–20
[2018-08-19] MEDS: FLUTICASONE/VILANTEROL 100-25 INH SCH ×3 (00:02→20:35)
[2018-08-19] MEDS: SOD CHLORIDE 0.9% 1,000 ML IV SCH ×2 (00:41→07:17)
[2018-08-19] MEDS: HYDROCODONE/APAP (5/325) TAB PO PRN ×2 (01:30→09:40)
--- NOTE | 2018-08-19 06:38 | NUR ---
PT REMAINS STABLE THROUGHOUT THE SHIFT. WITH EPISODES OF SOB BUT OCCASIONALLY REFUSES NASAL CANNULA. PT NO COMPLAINS OF ABD PAIN. DID COMPLAIN OF RIGHT JAW PAIN. GAVE PRN NORCO. ALL NEEDS ATTENDED. WILL ENDORSE TO AM SHIFT FOR CONTINUITY OF CARE
[2018-08-19] MEDS: INSULIN ASPART [NOVOLOG] 3 ML PEN SC SCH ×7 (08:25→20:33)
[2018-08-19] MEDS ORDERED: AMLODIPINE 5 MG TAB PO SCH (09:00)
[2018-08-19] MEDS ORDERED: INFLUENZA VIRUS VACCINE 0.5 ML (DISPENSING) IM* ONE (09:00)
[2018-08-19] MEDS: PANTOPRAZOLE 40 MG INJ IV SCH ×2 (09:24→20:32)
[2018-08-19] MEDS: LOSARTAN 25 MG TAB PO SCH ×2 (09:25→20:32)
[2018-08-19] MEDS: GUAIFENESIN LA 600 MG TABSR PO SCH ×2 (09:25→20:33)
[2018-08-19] MEDS: CLOPIDOGREL 75 MG TAB PO SCH (09:25)
[2018-08-19] MEDS: CHLORDIAZEPOXIDE 25 MG CAP PO SCH ×3 (09:25→20:35)
[2018-08-19] MEDS: ASPIRIN (EC) 81 MG TAB PO SCH (09:25)
[2018-08-19] MEDS: AMLODIPINE 5 MG TAB PO SCH (09:26)
[2018-08-19] MEDS: LORATADINE 10 MG TAB PO SCH (09:26)
[2018-08-19] MEDS: ENOXAPARIN 40 MG/0.4 ML SYG SC SCH (09:28)
[2018-08-19] MEDS ORDERED: VANCOMYCIN IV PER PHARMACY XX SCH (09:30)
[2018-08-19] MEDS ORDERED: POTASSIUM CHLORIDE 20 MEQ POWDER FOR ORAL SOLN PO ONE (09:30)
[2018-08-19] MEDS: SOD CHLORIDE 0.45% 1,000 ML IV SCH ×2 (09:32→19:30)
--- NOTE | 2018-08-19 10:35 | NUR ---
VANCO PER RX PROTOCOL: S/O: 62 YO MALE W/ ACUTE ETOH INTOXICATION, GM(+) BACTEREMIA. TMAX = 99 SCR/BUN = 1.05/9 WBC = 7.8 A/P: VANCO 2GM LD, FOLLOWED BY 1GM Q 12HR WITH TR LEVEL ON 4TH DOSE TO CHECK CLEARANCE. WILL CONTINUE TO FOLLOW.
[2018-08-19] MEDS ORDERED: VANCOMYCIN 2 GM in SOD CHLORIDE 0.9% 500 ML IVPB SCH (12:00)
--- NOTE | 2018-08-19 13:16 | NUR ---
WOUND CONSULT: 62 year old male admitted with ETOH per record. History of CVA, diabetes, and hypertension per medical record. Patient awake, alert, oriented. He is able to stand without assist. Sacrococcyx skin intact. Left knee abrasion with dry scabs. No drainage. No odor. Recommended to apply Triple antibiotic ointment daily. Encourage frequent reposition. Discussed assessment and plan of care with charge nurse, Elva. Primary RN Bridget at lunch. Will confer message to Primary RN to obtain wound care recommendations. Karo Kenyon, BSN RN CWOCN
--- NOTE | 2018-08-19 13:21 | NUR ---
ST NOTE; unable to see pt for swallow evaluation sec. to pt NPO for ct of abdomen; will reattempt later if time permits
[2018-08-19] MEDS: SUCRALFATE (100 MG/ML) 10ML CUP PO SCH ×3 (13:31→20:32)
--- NOTE | 2018-08-19 13:47 | PN ---
Date/Time of Note Date/Time of Note DATE: 08/19/18 TIME: 13:41 Objective Vitals Vital Signs Date Temp Pulse Resp B/P (MAP) Pulse Ox O2 O2 Flow FiO2 Time Delivery Rate 08/19/18 90 12:04 08/19/18 98.3 20 157/75 93 11:42 (102) 08/19/18 Nasal 2.0 07:35 Cannula Intake and Output 08/18/18 08/18/18 08/19/18 1515:00 23:00 07:00 IntakeIntake Total 450 ml 1200 ml OutputOutput Total 2500 ml BalanceBalance 450 ml -1300 ml Results Result Diagram: 08/19/18 0549 08/19/18 0549 Medications Medications Current Medications Miscellaneous Information 1 ea NOTE XX ; Start 08/18/18 at 14:30 Glucose (Glutose) 15 gm Q15M PRN PO DECREASED GLUCOSE; Start 08/18/18 at 14:30 Glucose (Glutose) 22.5 gm Q15M PRN PO DECREASED GLUCOSE; Start 08/18/18 at 14:30 Dextrose (D50w Syringe) 25 ml Q15M PRN IV DECREASED GLUCOSE; Start 08/18/18 at 14:30 Dextrose (D50w Syringe) 50 ml Q15M PRN IV DECREASED GLUCOSE; Start 08/18/18 at 14:30 Glucagon (Glucagen) 1 mg Q15M PRN IM DECREASED GLUCOSE; Start 08/18/18 at 14:30 Glucose (Glutose) 15 gm Q15M PRN BUCCAL DECREASED GLUCOSE; Start 08/18/18 at 14:30 Aspirin (Halfprin) 81 mg DAILY PO Last administered on 08/19/18at 09:25; Admin Dose 81 MG; Start 08/19/18 at 09:00 Atorvastatin Calcium (Lipitor) 40 mg HS PO Last administered on 08/18/18at 20:51; Admin Dose 40 MG; Start 08/18/18 at 21:00 Clopidogrel Bisulfate (plaVIX) 75 mg DAILY PO Last administered on 08/19/18at 09:25; Admin Dose 75 MG; Start 08/19/18 at 09:00 Insulin Aspart (Novolog Insulin Pen) 15 unit WITH MEALS SC Last administered on 08/19/18at 08:26; Admin Dose 15 UNIT; Start 08/18/18 at 17:55 Cholecalciferol (Vitamin D) 2,000 unit DAILY PO ; Start 08/19/18 at 09:00 Fluticasone/ Vilanterol (Breo Ellipta 100-25 Mcg Inh) 1 inh BID INH Last administered on 08/19/18at 09:34; Admin Dose 1 INH; Start 08/18/18 at 21:00 Losartan Potassium (Cozaar) 25 mg BID PO Last administered on 08/19/18at 09:25; Admin Dose 25 MG; Start 08/18/18 at 21:00 IV Flush (NS 3 ml) 3 ml PER PROTOCOL IV ; Start 08/18/18 at 15:30 Ondansetron HCl (Zofran Inj) 4 mg Q6H PRN IV NAUSEA AND/OR VOMITING; Start 08/18/18 at 15:30 Acetaminophen (Tylenol Tab) 650 mg Q6H PRN PO PAIN LEVEL 1-3 OR FEVER; Start 08/18/18 at 15:30 Acetaminophen/ Hydrocodone Bitart ([place] (5/325)) 1 tab Q6H PRN PO PAIN LEVEL 4-6 Last administered on 08/19/18at 09:40; Admin Dose 1 TAB; Start 08/18/18 at 15:30 Docusate Sodium (Colace) 100 mg Q12H PRN PO CONSTIPATION; Start 08/18/18 at 15:30 Magnesium Hydroxide (Milk Of Mag) 30 ml DAILY PRN PO CONSTIPATION; Start 08/18/18 at 15:30 Pantoprazole (Protonix Iv) 40 mg BID IV Last administered on 08/19/18at 09:24; Admin Dose 40 MG; Start 08/18/18 at 21:00 Enoxaparin Sodium (Lovenox) 40 mg DAILY SC Last administered on 08/19/18at 09:28; Admin Dose 40 MG; Start 08/19/18 at 09:00 Multivitamins 10 ml/Thiamine HCl 100 mg/Folic Acid 1 mg/Sodium Chloride 1,011.2 ml @ 125 mls/ hr DAILY@09 IVPB Last administered on 08/18/18at 21:28; Admin Dose 125 MLS/HR; Start 08/18/18 at 16:00 Lorazepam (Ativan) 1 mg Q2 PRN IV withdrawal, agitation; Start 08/18/18 at 15:30 Chlordiazepoxide (Librium) 25 mg TID PO Last administered on 08/19/18 13:31; Admin Dose 25 MG; Start 08/18/18 at 21:00 Insulin Glargine (Lantus) 29 units DAILY@2000 SC Last administered on 07/22 22:21; Admin Dose 29 UNITS; Start 08/18/18 at 20:00 Insulin Aspart (Novolog Insulin Pen) NOVOLOG *MILD* ALGORITHM WITH MEALS BEDTIME SC Last administered on 08/19/18 08:25; Admin Dose 2 UNIT; Start 08/18/18 at 17:55 Hydralazine HCl (Apresoline) 10 mg Q4H PRN IV SBP>170 Last administered on 08/18/18 17:38; Admin Dose 10 MG; Start 08/18/18 at 16:30 Amlodipine Besylate (Norvasc) 5 mg DAILY PO Last administered on 08/19/18 09:26; Admin Dose 5 MG; Start 08/19/18 at 09:00 Loratadine (Claritin) 10 mg DAILY PO Last administered on 08/19/18 09:26; Admin Dose 10 MG; Start 08/18/18 at 18:30 Guaifenesin (Mucinex) 600 mg BID PO Last administered on 08/19/18 09:25; Admin Dose 600 MG; Start 08/18/18 at 21:00 Enalaprilat (Vasotec Iv) 0.625 mg Q4H PRN IV SBP >170; Start 08/18/18 at 18:30 Vancomycin HCl (Vanco Iv Per Pharmacy) VANCOMYCIN PER PHARMACY PER PROTOCOL XX ; Start 08/19/18 at 09:30 Sodium Chloride 1,000 ml @ 100 mls/hr Q10H IV Last administered on 08/19/18at 09:32; Admin Dose 100 MLS/HR; Start 08/19/18 at 09:30 Vancomycin HCl 2 gm/Sodium Chloride 500 ml @ 125 mls/hr 1200 IVPB Last administered on 08/19/18 13:31; Admin Dose 125 MLS/HR; Start 08/19/18 at 12:00; Stop 08/19/18 at 15:59 Vancomycin HCl 250 ml @ 125 mls/hr Q12H IVPB ; Start 08/20/18 at 00:00 Sucralfate (Carafate Susp) 1 gm QID PO Last administered on 12/31/18at 13:31; Admin Dose 1 GM; Start 08/19/18 at 13:00 VTE Prophylaxis Risk score (from Nsg)>0 risk: 4 SCD applied (from Ns): No SCD contraindication: other Lines/Catheters IV Catheter Type: Hooks in Place: No Assessment/Plan Hospital Course Subjective Patient has multiple new complaints including chronic cough and chronic abdominal swelling. Objective Physical exam General: Patient is laying in bed and answers questions appropriately Mentation: Patient is alert and oriented 4, Head: Normocephalic atraumatic Eyes: EOMI, pupils reactive to light Neck: Supple, nontender, midline Respiratory: Clear to auscultation bilaterally Cardiovascular: regular rate, no obvious murmurs Gastrointestinal: non-tender to palpation, bowel sounds heard. 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 Acute alcohol intoxication-resolving - will give IV fluids, banana bag, and PRN ativan - Librium started and will need quick taper - monitor for withdrawal and DTs Metabolic acidosis secondary to alcohol ketoacidosis - stable, monitor Hypokalemia - will replace as needed - continue to monitor Diabetes Mellitus with hyperglycemia - A1c noted - glucose at time of admission was 450 and given insulin - Continue home novolog and Lantus. adjust as needed - ISS and accuchecks HTN - will resume home medications and adjust for better control - PRN hydralazine on board PVD - on aspirin and plavix h/o CVA - aspirin on board DVT ppx - SCD - LMWH GI ppx - PPI BID -added carafate Diet - Carb controlled Disposition -pending ct and ID workup for possible bacteremia RENU WHITE Aug 19, 2018 13:47
[2018-08-19] MEDS: CHOLECALCIFEROL 2,000 UNIT CAP PO SCH (13:48)
--- NOTE | 2018-08-19 14:17 | CONS ---
DATE OF ADMISSION: 08/18/2018 DATE OF CONSULTATION: 08/19/2018 TYPE OF CONSULTATION: Infectious Disease. REASON FOR CONSULTATION: Antibiotic management. HISTORY OF PRESENT ILLNESS: Gregory Guillen is a 62-year-old male who comes in complaining of abdominal pain, nausea, vomiting with history of drinking alcohol since the night prior to admission . The patient complained of epigastric abdominal discomfort, nausea and vomiting. The patient has n ot been drinking for several months, but started drinking over the past 24 to 48 hours. He had multi ple episodes of nonbloody, nonbilious emesis with burning epigastric abdominal discomfort without rad iation to the back and with mild cramping. He complained of multiple episodes of loose stools. The patient's problems include: 1. Alcohol abuse. 2. Adult-onset diabetes mellitus. 3. Hypertension. 4. Dyslipidemia. 5. Right toe diabetic ulcer. PAST SURGICAL HISTORY: Left hernia repair. FAMILY HISTORY: Not contributory except for the fact that there is diabetes in the family. SOCIAL HISTORY: He drinks socially. He does not smoke or abuse drugs. ALLERGIES: NONE TO PENICILLIN, SULFA OR FOODS. MEDICATIONS: Per chart. REVIEW OF SYSTEMS: As per HPI. PHYSICAL EXAMINATION: GENERAL: The patient is disheveled, malodorous, has dry heaves in the emergency room. VITAL SIGNS: Stable, but his blood pressure was elevated at 196/91. SKIN: Without generalized rash. HEENT: Head is normocephalic, atraumatic. ENT within normal limits. NECK: Supple. LYMPH NODES: None palpable. CHEST: Decreased breath sounds at the bases. HEART: Without murmur or gallop. ABDOMEN: Soft with midepigastric tenderness without rebound or guarding. EXTREMITIES: Without cyanosis, clubbing or edema. RECTAL AND GENITAL: Deferred. NEUROLOGICAL: No focal neurological abnormality. ANCILLARY LABORATORY DATA: White count of 8.5, H and H of 13.4 and 37.5, platelet count 265,000. BU N and creatinine is 10/0.9, sodium 131, potassium 3.3, chloride 97, CO2 of 19. He had a glucose of 4 50, so he is severely hyperglycemic. As noted, his white count was 8.5 with 75% polys. IMPRESSION AND PLAN: The patient presented with nausea, vomiting, diarrhea in the setting of heavy a lcohol abuse. One set of blood cultures show gram-positive cocci in clusters which may be true or ma y be contaminant. White count today is 7.8. Urine is negative. I will await a chest x-ray. He had an x-ray of his wrist which showed no acute abnormality and he had a knee x-ray which showed no acut e abnormality. The patient was started on vancomycin. I believe that this was probably a contaminan t, but repeat blood cultures were done on 08/19/2018 and we only have 1 of 2 blood cultures that were reported from 08/18/2018. Stool for Clostridium difficile was ordered as well as cultures of the ur ine and stool. I concur with the current regimen. I will dictate my findings to the hospitalist. Dictated By: SREEKANTH ROQUE MD, JD/NTS Conf#: [id number] DID#: [id number] CC: CALI PRADO MD; RENU WHITE MD;*[facility]*
[2018-08-19] MEDS ORDERED: SOD CHLORIDE 0.9% 100 ML ONE (18:13)
[2018-08-19] MEDS ORDERED: IOHEXOL 300MG/ML 150 ML BTL ONE (18:13)
[2018-08-19] MEDS: MULTIVITAMINS 10 ML, THIAMINE 100 MG, FOLIC ACID 1 MG in SOD CHLORIDE 0.9% 1,000 ML IVPB SCH (20:32)
[2018-08-19] MEDS: ATORVASTATIN 40 MG TAB PO SCH (20:33)
[2018-08-19] MEDS: INSULIN GLARGINE [LANTus] (100 UNITS/ML) SYG SC SCH (21:54)
[2018-08-20] VITALS (13 sets, daily range): BP systolic 134–199; BP diastolic 66–89; PULSE 82–93; RESP 18
[2018-08-20] MEDS: VANCOMYCIN 1 GM 250 ML IVPB SCH ×2 (00:45→14:07)
[2018-08-20] MEDS ORDERED: INSULIN ASPART [NOVOLOG] 3 ML PEN SC ONE (02:30)
[2018-08-20] MEDS: hydrALAzine 20 MG INJ IV PRN ×2 (04:26→16:05)
[2018-08-20] MEDS: HYDROCODONE/APAP (5/325) TAB PO PRN (05:19)
[2018-08-20] MEDS: SOD CHLORIDE 0.45% 1,000 ML IV SCH (05:30)
--- NOTE | 2018-08-20 07:51 | NUR ---
BLOOD SUGAR REMAINS ON THE 300S ON THE MID OF THE SHIFT. MADE MD AWARE WITH NEW ORDER MADE. DID COMPLAIN OF RIGHT JAW PAIN THIS MORNING THAT IS RELIEVED BY NORCO. PT IS VERY UPSET THIS MORNING AND HE KEEPS ON INSISTING THAT NOBODY IS ATTENDING TO HIS CALLS FOR THE PAST HOUR. GAS DISTRIBUTION AND EMERGENCY CLERK ALWAYS ATTEND TO PT CALL ALL THE TIME AND IT IS WITNESSED BY THE RN'S AND PERSONAL SERVICE REPRESENTATIVE. CALMED PT DOWN AND EXPLAINED TO HIM THAT HE MIGHT BE PUSHING A WRONG BUTTON. ENDORSED TO AM SHIFT FOR CONTINUITY OF CARE
[2018-08-20] MEDS ORDERED: INSULIN ASPART [NOVOLOG] 3 ML PEN SC SCH (07:55)
[2018-08-20] MEDS: INSULIN ASPART [NOVOLOG] 3 ML PEN SC SCH ×7 (08:48→21:00)
[2018-08-20] MEDS: CHOLECALCIFEROL 2,000 UNIT CAP PO SCH (09:50)
[2018-08-20] MEDS: PANTOPRAZOLE 40 MG INJ IV SCH ×2 (09:50→20:48)
[2018-08-20] MEDS: LOSARTAN 25 MG TAB PO SCH ×2 (09:50→20:48)
[2018-08-20] MEDS: SUCRALFATE (100 MG/ML) 10ML CUP PO SCH ×4 (09:50→20:48)
[2018-08-20] MEDS: AMLODIPINE 5 MG TAB PO SCH (09:50)
[2018-08-20] MEDS: CLOPIDOGREL 75 MG TAB PO SCH (09:50)
[2018-08-20] MEDS: GUAIFENESIN LA 600 MG TABSR PO SCH ×2 (09:50→20:48)
[2018-08-20] MEDS: LORATADINE 10 MG TAB PO SCH (09:50)
[2018-08-20] MEDS: ASPIRIN (EC) 81 MG TAB PO SCH (09:51)
[2018-08-20] MEDS: ENOXAPARIN 40 MG/0.4 ML SYG SC SCH (09:52)
[2018-08-20] MEDS: THIAMINE 100 MG TAB PO SCH (09:56)
[2018-08-20] MEDS: CHLORDIAZEPOXIDE 25 MG CAP PO SCH ×3 (09:56→21:01)
[2018-08-20] MEDS: FLUTICASONE/VILANTEROL 100-25 INH SCH ×2 (09:56→20:49)
--- NOTE | 2018-08-20 13:08 | PN ---
Date/Time of Note Date/Time of Note DATE: 08/20/18 TIME: 13:03 Objective Vitals Vital Signs Date Temp Pulse Resp B/P (MAP) Pulse Ox O2 O2 Flow FiO2 Time Delivery Rate 08/20/18 86 12:54 08/20/18 98.1 18 167/72 97 12:01 (103) 08/20/18 Nasal 2.0 07:45 Cannula Intake and Output 08/19/18 08/19/18 08/20/18 1515:00 23:00 07:00 IntakeIntake Total 350 ml BalanceBalance 350 ml Results Result Diagram: 08/20/18 0541 08/20/18 0510 Medications Medications Current Medications Miscellaneous Information 1 ea NOTE XX ; Start 08/18/18 at 14:30 Glucose (Glutose) 15 gm Q15M PRN PO DECREASED GLUCOSE; Start 08/18/18 at 14:30 Glucose (Glutose) 22.5 gm Q15M PRN PO DECREASED GLUCOSE; Start 08/18/18 at 14:30 Dextrose (D50w Syringe) 25 ml Q15M PRN IV DECREASED GLUCOSE; Start 08/18/18 at 14:30 Dextrose (D50w Syringe) 50 ml Q15M PRN IV DECREASED GLUCOSE; Start 08/18/18 at 14:30 Glucagon (Glucagen) 1 mg Q15M PRN IM DECREASED GLUCOSE; Start 08/18/18 at 14:30 Glucose (Glutose) 15 gm Q15M PRN BUCCAL DECREASED GLUCOSE; Start 08/18/18 at 14:30 Aspirin (Halfprin) 81 mg DAILY PO Last administered on 08/20/18at 09:51; Admin Dose 81 MG; Start 08/19/18 at 09:00 Atorvastatin Calcium (Lipitor) 40 mg HS PO Last administered on 08/19/18at 20:33; Admin Dose 40 MG; Start 08/18/18 at 21:00 Clopidogrel Bisulfate (plaVIX) 75 mg DAILY PO Last administered on 08/20/18at 09:50; Admin Dose 75 MG; Start 08/19/18 at 09:00 Cholecalciferol (Vitamin D) 2,000 unit DAILY PO Last administered on 08/20/18at 09:50; Admin Dose 2,000 UNIT; Start 08/19/18 at 09:00 Fluticasone/ Vilanterol (Breo Ellipta 100-25 Mcg Inh) 1 inh BID INH Last administered on 08/20/18 09:56; Admin Dose 1 INH; Start 08/18/18 at 21:00 Losartan Potassium (Cozaar) 25 mg BID PO Last administered on 08/20/18 09:50; Admin Dose 25 MG; Start 08/18/18 at 21:00 IV Flush (NS 3 ml) 3 ml PER PROTOCOL IV ; Start 08/18/18 at 15:30 Ondansetron HCl (Zofran Inj) 4 mg Q6H PRN IV NAUSEA AND/OR VOMITING; Start 08/18/18 at 15:30 Acetaminophen (Tylenol Tab) 650 mg Q6H PRN PO PAIN LEVEL 1-3 OR FEVER; Start 08/18/18 at 15:30 Acetaminophen/ Hydrocodone Bitart ([place] (5/325)) 1 tab Q6H PRN PO PAIN LEVEL 4-6 Last administered on 08/20/18 05:19; Admin Dose 1 TAB; Start 08/18/18 at 15:30 Docusate Sodium (Colace) 100 mg Q12H PRN PO CONSTIPATION; Start 08/18/18 at 15:30 Magnesium Hydroxide (Milk Of Mag) 30 ml DAILY PRN PO CONSTIPATION; Start 08/18/18 at 15:30 Pantoprazole (Protonix Iv) 40 mg BID IV Last administered on 08/20/18 09:50; Ad min Dose 40 MG; Start 08/18/18 at 21:00 Enoxaparin Sodium (Lovenox) 40 mg DAILY SC Last administered on 08/20/18 09:52; Admin Dose 40 MG; Start 08/19/18 at 09:00 Lorazepam (Ativan) 1 mg Q2 PRN IV withdrawal, agitation; Start 08/18/18 at 15:30 Chlordiazepoxide (Librium) 25 mg TID PO Last administered on 08/20/18 09:56; Admin Dose 25 MG; Start 08/18/18 at 21:00 Insulin Aspart (Novolog Insulin Pen) NOVOLOG *MILD* ALGORITHM WITH MEALS BEDTIME SC Last administered on 08/20/18 11:48; Admin Dose 5 UNIT; Start 08/18/18 at 17:55 Hydralazine HCl (Apresoline) 10 mg Q4H PRN IV SBP>170 Last administered on 1/1/19at 04:26; Admin Dose 10 MG; Start 08/18/18 at 16:30 Amlodipine Besylate (Norvasc) 5 mg DAILY PO Last administered on 08/20/18 09:50; Admin Dose 5 MG; Start 08/19/18 at 09:00 Loratadine (Claritin) 10 mg DAILY PO Last administered on 08/20/18 09:50; Admin Dose 10 MG; Start 08/18/18 at 18:30 Guaifenesin (Mucinex) 600 mg BID PO Last administered on 08/20/18 09:50; Admin Dose 600 MG; Start 08/18/18 at 21:00 Enalaprilat (Vasotec Iv) 0.625 mg Q4H PRN IV SBP >170; Start 08/18/18 at 18:30 Vancomycin HCl (Vanco Iv Per Pharmacy) VANCOMYCIN PER PHARMACY PER PROTOCOL XX ; Start 08/19/18 at 09:30 Vancomycin HCl 250 ml @ 125 mls/hr Q12H IVPB Last administered on 08/20/18at 00:45; Admin Dose 125 MLS/HR; Start 08/20/18 at 00:00 Sucralfate (Carafate Susp) 1 gm QID PO Last administered on 08/20/18 09:50; Admin Dose 1 GM; Start 08/19/18 at 13:00 Insulin Aspart (Novolog Insulin Pen) 17 unit WITH MEALS SC Last administered on 08/20/18at 11:47; Admin Dose 17 UNIT; Start 08/20/18 at 11:50 Insulin Glargine (Lantus) 34 units DAILY@2000 SC ; Start 08/20/18 at 20:00 Thiamine HCl (Vitamin B1) 100 mg DAILY PO Last administered on 08/20/18at 09:56; Admin Dose 100 MG; Start 08/20/18 at 10:00 Folic Acid (Folic Acid) 0.4 mg DAILY PO ; Start 08/20/18 at 10:30 Miscellaneous Information (*Rx Drug Level Order Reminder*) VANCOMYCIN TROUGH 08/20 AT 2300 ONCE ONCE XX ; Start 08/20/18 at 23:00; Stop 08/20/18 at 23:01 VTE Prophylaxis Risk score (from Nsg)>0 risk: 3 SCD applied (from Nsg): No SCD contraindication: other Lines/Catheters IV Catheter Type: Hooks in Place: No Assessment/Plan Hospital Course Subjective patient feeling better, still with chronic issues Objective Physical exam General: Patient is laying in bed and answers questions appropriately Mentation: Patient is alert and oriented 4, Head: Normocephalic atraumatic Eyes: EOMI, pupils reactive to light Neck: Supple, nontender, midline Respiratory: Clear to auscultation bilaterally Cardiovascular: regular rate, no obvious murmurs Gastrointestinal: non-tender to palpation, bowel sounds heard. 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 Acute alcohol intoxication-resolved - Librium started and will need quick taper - monitor for withdrawal and DTs Metabolic acidosis secondary to alcohol ketoacidosis - stable, monitor Hypokalemia - will replace as needed - continue to monitor Diabetes Mellitus with hyperglycemia - A1c noted - glucose at time of admission was 450 and given insulin - Continue home novolog and Lantus. adjust as needed - ISS and accuchecks lobular renal cortex -incidental on CT -likely sequelae from prior infection or infarction -no renal function issues at this time, will need to follow up outpatient. HTN - will resume home medications and adjust for better control - PRN hydralazine on board PVD/CAD - on aspirin and plavix h/o CVA - aspirin on board DVT ppx - SCD - LMWH GI ppx - PPI BID -added carafate Diet - Carb controlled Disposition -pending CT chest read -pending ST eval for dysphasia -pending ID recs for bacteremia RENU WHITE Aug 20, 2018 13:08
[2018-08-20] MEDS: FOLIC ACID 0.4 MG TAB PO SCH (14:09)
--- NOTE | 2018-08-20 14:44 | RADRPT ---
Echocardiogram Report Patient Name: NITIN KHAN Gender: Male Date: 1955 Study Date: 20-Aug-2018 Shot Hole Shooter: Dimple Pritchard RDCS Location: I Ref. Physician: RENU WHITE Quality: Technically Difficult Study Procedures: Transthoracic echocardiogram with complete 2D, M-Mode, and doppler examination. Indications: R/O Vegetations. 2D/M Mode Doppler Measurement Value Normal Ranges Measurement Value Normal Ranges LVIDd 2D 4.2 3.5 - 5.6 cm AV Peak Steven 1.2 m/sec LVIDs 2D 2.9 2.1 - 4.1 cm AV Peak PG 6.0 mmHg FS 2D 32.0 % LVOT Peak Steven 1.0 m/sec LVPWd 2D 1.3 0.6 - 1.1 cm LVOT Peak PG 4.0 mmHg IVSd 2D 1.0 0.6 - 1.1 cm MV E Peak Steven 0.9 m/sec IVS/LVPW 2D 0.8 MV A Peak Steven 1.0 m/sec AoR Diam 2D 2.6 2.0 - 3.7 cm MV E/A 0.9 LA/Ao 2D 1 0 - 1 MV Decel Time 169 msec EDV 2D 75.2 cm3 MV E/A 0.9 ESV 2D 23.6 cm3 TV E Peak Steven 0.8 m/sec LA Dimen 2D 3.8 2.3 - 4.0 cm Findings Left Ventricle: Normal left ventricular systolic function. Normal left ventricular cavity size. Mild concentric left ventricular hypertrophy. Ejection fraction is visually estimated at 60 %. Tissue Doppler/Mitral Doppler indices are consistent with impaired relaxation (Stage I diastolic dysfunction). Right Ventricle: Normal right ventricular size. Normal right ventricular systolic function. Left Atrium: The left atrium is normal in size. Right Atrium: The right atrium is normal in size. Mitral Valve: Normal appearance of the mitral valve. No mitral valve regurgitation is seen. Aortic Valve: Normal appearance of the aortic valve. No aortic regurgitation. Tricuspid Valve: Normal appearance of the tricuspid valve. Pulmonic Valve: Pulmonic valve not well visualized. Pericardium: Normal pericardium with no significant pericardial effusion. Aorta: Normal aortic root. IVC: The IVC is not well visualized. Conclusions Technically difficult study. Mild concentric left ventricular hypertrophy with normal systolic function. Grade 1 diastolic dysfunction. No significant valvular abnormalities noted. If concern persists for endocarditis, recommend CALVIN given poor visualization on this study. Electronically Signed By: Helen Esparza 20-Aug-2018 14:43:47 -0800 Patient Name: NITIN KHAN Study Date: 20-Aug-[id number]
--- NOTE | 2018-08-20 15:18 | CONS ---
Date/Time of Note Date/Time of Note DATE: 08/20/18 TIME: 15:00 Assessment/Plan Assessment/Plan Hospital Course ID PROGRESS NOTE CURRENT ABX: DAY # =>Vanco IV #3 + Levaquin #1 08/20/18 0541 08/20/18 0510 24H INTERVAL SUMMARY * A/A/O -- OOB- Chair, no fevers, (+)course broncho-laryngeal cough * 08/20/18 CT CHEST: IMPRESSION: * 1. Cardiomegaly with a stent with coronary artery atherosclerotic calcification, tiny pleural effusions and suggestion of interstitial edema, findings unable to exclude congestive heart failure. * 2. Hepatomegaly hepatic steatosis without evidence for acute intra- abdominal or intrapelvic abnormality. * 3. Minimal colonic diverticulosis without diverticulitis. * 4. Lobular contour to the renal parenchyma likely the sequela of previous infection or infarction. * 5. Extensive atherosclerotic calcification. * 6. Bilateral L5 pars interarticularis defects. * 08/20/2017 2D ECHO Conclusions Technically difficult study. Mild concentric left ventricular hypertrophy with normal systolic function. Grade 1 diastolic dysfunction. No significant valvular abnormalities noted. If concern persists for endocarditis, recommend CALVIN given poor visualization on this study. MICRO * 08/19/18 BCx (-) * 08/18/18 (-) Influenza A/B * 08/18/18 Urine URINE CULTURE Preliminary Organism 1 MIXED GRAM POSITIVE ORGANISMS COLONY COUNT <10,000 CFU/ml * 08/18/18 BLOOD CX: (+)2/2 bottles drawn in ED * BLOOD CULTURE Preliminary Organism 1 GRAM POSITIVE COCCI IN CLUSTER PHYSICAL EXAMINATION: GENERAL: Afebrile, VSS, HEENT: AT, NC, anicteric NECK: Supple, trach CHEST: Equal chest rise bilaterally, without dyspnea on observation HEART: Pulse RRR ABDOMEN: Soft / NT / hepatomegaly EXTREMITIES: Warm, dry, SKIN: No rash, no diaphoresis ID ASSESSMENT 62 yo M admit with: 1. SIRS w/Tmax 99.8 + tachycardia + BG > 400 early DKA 2. Acute community acquired bronchitis -- (+/-) Aspiration Pneumonitis? in setting obesity, GERD, ETOH 3. Alcohol abuse with withdrawal 4 Adult-onset diabetes mellitus. 5. Hypertension w/HTN heart disease 6. HFpEF w/stage 1 Diastolic Dysfunction 7. Tachyarrhythmia HR >140's on admission 8 Dyslipidemia. 9. Hepatomegaly -- suspect ETOH liver disease 10. PAD -- hx of prior LEXT angioplasty -- details unclear 11. Hx of Right toe diabetic ulcer. 12. Perianal-scrotal erythema 13. Skin abrasions bilateral knees -- hx of falls w/ETOH intoxication 14. Allergic rhinitis (- )MRSA Nares ABX ALLERGIES: NKDA INVASIVES: PIV CURRENT ABX: DAY =Vanco IV #3 + Levaquin #1 ID RECOMMENDATIONS/PLAN: 1. Suspect false (+)BCx due to skin contaminants -- await final micro results 2. Short course Levaquin 3 days for acute community acquired bronchitis + Vanco IV * DC Vanco IV if BCx (+)CoNS and repeat BCx (-) 3. Anticipate DC soon -- patient tells me he is not ready to DC home still feels ill. . . Result Diagram: 08/20/18 0541 08/20/18 0510 Results 24hrs Laboratory Tests Test 08/19/18 18:00 08/19/18 20:05 08/19/18 21:46 08/20/18 01:49 Bedside Glucose 132 79 182 348 H Test 08/20/18 05:10 08/20/18 05:41 08/20/18 08:33 08/20/18 11:40 Sodium Level 135 Potassium Level 3.9 Chloride Level 103 Carbon Dioxide 24 Level Anion Gap 8 Blood Urea 13 Nitrogen Creatinine 1.18 Est Glomerular > 60 Filtrat Rate mL/min Glucose Level 318 H Bedside Glucose 301 H 325 H 310 H Calcium Level 7.8 L Phosphorus Level 3.3 Magnesium Level 1.8 White Blood Count 7.4 Red Blood Count 3.70 L Hemoglobin 11.9 L Hematocrit 34.1 L Mean Corpuscular 92.2 Volume Mean Corpuscular 32.2 Hemoglobin Mean Corpuscular 34.9 Hemoglobin Concent Red Cell 13.0 Distribution Width Platelet Count 207 Mean Platelet 10.6 H Volume Immature 0.800 H Granulocytes % Neutrophils % 70.4 Lymphocytes % 16.5 Monocytes % 8.7 Eosinophils % 2.7 Basophils % 0.9 Nucleated Red 0.0 Blood Cells % Immature 0.060 H Granulocytes # Neutrophils # 5.2 Lymphocytes # 1.2 Monocytes # 0.6 Eosinophils # 0.2 Basophils # 0.1 Nucleated Red 0.0 Blood Cells # Consultation Date/Type/Reason Admit Date/Time Aug 18, 2018 at 15:07 Initial Consult Date Exam/Review of Systems Vital Signs Vitals Vital Signs Date Temp Pulse Resp B/P (MAP) Pulse Ox O2 O2 Flow FiO2 Time Delivery Rate 08/20/18 86 12:54 08/20/18 98.1 18 167/72 97 12:01 (103) 08/20/18 Nasal 2.0 07:45 Cannula Intake and Output 08/19/18 08/19/18 08/20/18 1515:00 23:00 07:00 IntakeIntake Total 350 ml BalanceBalance 350 ml Medications Medications Current Medications Miscellaneous Information 1 ea NOTE XX ; Start 08/18/18 at 14:30 Glucose (Glutose) 15 gm Q15M PRN PO DECREASED GLUCOSE; Start 08/18/18 at 14:30 Glucose (Glutose) 22.5 gm Q15M PRN PO DECREASED GLUCOSE; Start 08/18/18 at 14:30 Dextrose (D50w Syringe) 25 ml Q15M PRN IV DECREASED GLUCOSE; Start 08/18/18 at 14:30 Dextrose (D50w Syringe) 50 ml Q15M PRN IV DECREASED GLUCOSE; Start 08/18/18 at 14:30 Glucagon (Glucagen) 1 mg Q15M PRN IM DECREASED GLUCOSE; Start 08/18/18 at 14:30 Glucose (Glutose) 15 gm Q15M PRN BUCCAL DECREASED GLUCOSE; Start 08/18/18 at 14:30 Aspirin (Halfprin) 81 mg DAILY PO Last administered on 08/20/18 09:51; Admin Dose 81 MG; Start 08/19/18 at 09:00 Atorvastatin Calcium (Lipitor) 40 mg HS PO Last administered on 08/19/18at 20:33; Admin Dose 40 MG; Start 08/18/18 at 21:00 Clopidogrel Bisulfate (plaVIX) 75 mg DAILY PO Last administered on 08/20/18 09:50; Admin Dose 75 MG; Start 08/19/18 at 09:00 Cholecalciferol (Vitamin D) 2,000 unit DAILY PO Last administered on 08/20/18 09:50; Admin Dose 2,000 UNIT; Start 08/19/18 at 09:00 Fluticasone/ Vilanterol (Breo Ellipta 100-25 Mcg Inh) 1 inh BID INH Last administered on 08/20/18 09:56; Admin Dose 1 INH; Start 08/18/18 at 21:00 Losartan Potassium (Cozaar) 25 mg BID PO Last administered on 08/20/18 09:50; Admin Dose 25 MG; Start 08/18/18 at 21:00 IV Flush (NS 3 ml) 3 ml PER PROTOCOL IV ; Start 08/18/18 at 15:30 Ondansetron HCl (Zofran Inj) 4 mg Q6H PRN IV NAUSEA AND/OR VOMITING; Start 08/18/18 at 15:30 Acetaminophen (Tylenol Tab) 650 mg Q6H PRN PO PAIN LEVEL 1-3 OR FEVER; Start 08/18/18 at 15:30 Acetaminophen/ Hydrocodone Bitart ([place] (5/325)) 1 tab Q6H PRN PO PAIN LEVEL 4-6 Last administered on 08/20/18 05:19; Admin Dose 1 TAB; Start 08/18/18 at 15:30 Docusate Sodium (Colace) 100 mg Q12H PRN PO CONSTIPATION; Start 08/18/18 at 15:30 Magnesium Hydroxide (Milk Of Mag) 30 ml DAILY PRN PO CONSTIPATION; Start 08/18/18 at 15:30 Pantoprazole (Protonix Iv) 40 mg BID IV Last administered on 08/20/18 09:50; Admin Dose 40 MG; Start 08/18/18 at 21:00 Enoxaparin Sodium (Lovenox) 40 mg DAILY SC Last administered on 08/20/18 09:52; Admin Dose 40 MG; Start 08/19/18 at 09:00 Lorazepam (Ativan) 1 mg Q2 PRN IV withdrawal, agitation; Start 08/18/18 at 15:30 Chlordiazepoxide (Librium) 25 mg TID PO Last administered on 08/20/18 14:06; Admin Dose 25 MG; Start 08/18/18 at 21:00 Insulin Aspart (Novolog Insulin Pen) NOVOLOG *MILD* ALGORITHM WITH MEALS BEDTIME SC Last administered on 08/20/18 11:48; Admin Dose 5 UNIT; Start 08/18/18 at 17:55 Hydralazine HCl (Apresoline) 10 mg Q4H PRN IV SBP>170 Last administered on 08/20/18 04:26; Admin Dose 10 MG; Start 08/18/18 at 16:30 Amlodipine Besylate (Norvasc) 5 mg DAILY PO Last administered on 08/20/18 09:50; Admin Dose 5 MG; Start 08/19/18 at 09:00 Loratadine (Claritin) 10 mg DAILY PO Last administered on 08/20/18 09:50; Admin Dose 10 MG; Start 08/18/18 at 18:30 Guaifenesin (Mucinex) 600 mg BID PO Last administered on 08/20/18 09:50; Admin Dose 600 MG; Start 08/18/18 at 21:00 Enalaprilat (Vasotec Iv) 0.625 mg Q4H PRN IV SBP >170; Start 08/18/18 at 18:30 Vancomycin HCl (Vanco Iv Per Pharmacy) VANCOMYCIN PER PHARMACY PER PROTOCOL XX ; Start 08/19/18 at 09:30 Vancomycin HCl 250 ml @ 125 mls/hr Q12H IVPB Last administered on 08/20/18 14:07; Admin Dose 125 MLS/HR; Start 08/20/18 at 00:00 Sucralfate (Carafate Susp) 1 gm QID PO Last administered on 08/20/18 14:06; Admin Dose 1 GM; Start 08/19/18 at 13:00 Insulin Aspart (Novolog Insulin Pen) 17 unit WITH MEALS SC Last administered on 08/20/18 11:47; Admin Dose 17 UNIT; Start 08/20/18 at 11:50 Insulin Glargine (Lantus) 34 units DAILY@2000 SC ; Start 08/20/18 at 20:00 Thiamine HCl (Vitamin B1) 100 mg DAILY PO Last administered on 08/20/18 09:56; Admin Dose 100 MG; Start 08/20/18 at 10:00 Folic Acid (Folic Acid) 0.4 mg DAILY PO Last administered on 08/20/18 14:09; Admin Dose 0.4 MG; Start 08/20/18 at 10:30 Miscellaneous Information (*Rx Drug Level Order Reminder*) VANCOMYCIN TROUGH 08/20 AT 2300 ONCE ONCE XX ; Start 08/20/18 at 23:00; Stop 08/20/18 at 23:01 MYRNA MCCAIN NP Aug 20, 2018 15:10
[2018-08-20] MEDS: LEVOFLOXACIN 500 MG TAB PO SCH (16:05)
[2018-08-20] MEDS: ACETAMINOPHEN 325 MG TAB PO PRN ×2 (17:02→23:05)
[2018-08-20] MEDS ORDERED: INSULIN GLARGINE [LANTus] (100 UNITS/ML) SYG SC SCH (20:00)
[2018-08-20] MEDS: ATORVASTATIN 40 MG TAB PO SCH (20:48)
--- NOTE | 2018-08-20 23:15 | NUR ---
RN NOTE PATIENT ALERT AND ORIENTED X 4, AMBULATES WITH STEADY GAIT, ABLE TO MAKE HIS NEEDS KNOWN. REPORT GIVEN TO KRISTYN LUTHER, WILL BE TAKING CARE OF PATIENT. PATIENT AWARE OF THE CHANGES.
[2018-08-21] VITALS (10 sets, daily range): BP systolic 124–161; BP diastolic 61–76; PULSE 73–86; RESP 18
[2018-08-21] MEDS: hydrALAzine 20 MG INJ IV PRN (00:21)
[2018-08-21] MEDS: VANCOMYCIN 1 GM 250 ML IVPB SCH ×2 (00:21→12:29)
--- NOTE | 2018-08-21 01:40 | NUR ---
VANCOMYCIN PER PHARMACY PROBLEM LIST: GM (+) BACTEREMIA POSSIBLE CONTAMINANT VANCO TROUGH = 14.8 CONTINUE WITH SAME THERAPY VANCO 1 GM Q12HRS
[2018-08-21] MEDS: ACETAMINOPHEN 325 MG TAB PO PRN (06:13)
[2018-08-21] MEDS: LEVOFLOXACIN 500 MG TAB PO SCH (06:13)
--- NOTE | 2018-08-21 06:44 | NUR ---
EOSS; awake alert Syriac speaking only , BP >170 given Hydralazine 10 mg ivp prn , down to 160s , SR on the monitor . c/o headache given tylenol 650mg . no acute distress noted.
[2018-08-21] MEDS: PANTOPRAZOLE 40 MG INJ IV SCH ×2 (08:08→21:47)
[2018-08-21] MEDS: LORATADINE 10 MG TAB PO SCH (08:09)
[2018-08-21] MEDS: CHOLECALCIFEROL 2,000 UNIT CAP PO SCH (08:09)
[2018-08-21] MEDS: CLOPIDOGREL 75 MG TAB PO SCH (08:09)
[2018-08-21] MEDS: ASPIRIN (EC) 81 MG TAB PO SCH (08:09)
[2018-08-21] MEDS: AMLODIPINE 5 MG TAB PO SCH (08:09)
[2018-08-21] MEDS: THIAMINE 100 MG TAB PO SCH (08:09)
[2018-08-21] MEDS: FOLIC ACID 0.4 MG TAB PO SCH (08:09)
[2018-08-21] MEDS: GUAIFENESIN LA 600 MG TABSR PO SCH ×2 (08:09→21:48)
[2018-08-21] MEDS: SUCRALFATE (100 MG/ML) 10ML CUP PO SCH ×4 (08:10→21:47)
[2018-08-21] MEDS: INSULIN ASPART [NOVOLOG] 3 ML PEN SC SCH ×7 (08:15→21:00)
[2018-08-21] MEDS: LOSARTAN 25 MG TAB PO SCH ×2 (08:20→21:59)
[2018-08-21] MEDS: CHLORDIAZEPOXIDE 25 MG CAP PO SCH (08:21)
[2018-08-21] MEDS: FLUTICASONE/VILANTEROL 100-25 INH SCH ×2 (08:22→21:51)
[2018-08-21] MEDS: ENOXAPARIN 40 MG/0.4 ML SYG SC SCH (08:30)
[2018-08-21] MEDS ORDERED: SOD CHLORIDE 0.9% 1,000 ML IV SCH (09:00)
[2018-08-21] MEDS ORDERED: AMLODIPINE 5 MG TAB PO SCH (09:30)
[2018-08-21] MEDS: CHLORDIAZEPOXIDE 5 MG CAP PO SCH ×2 (12:30→21:48)
--- NOTE | 2018-08-21 13:05 | PN ---
Date/Time of Note Date/Time of Note DATE: 08/21/18 TIME: 13:01 Objective Vitals Vital Signs Date Temp Pulse Resp B/P (MAP) Pulse Ox O2 O2 Flow FiO2 Time Delivery Rate 08/21/18 77 12:23 08/21/18 98.0 18 140/72 100 Room Air 11:12 (94) 08/20/18 2.0 07:45 Intake and Output 08/20/18 08/20/18 08/21/18 1515:00 23:00 07:00 IntakeIntake Total 1000 ml 2000 ml 250 ml BalanceBalance 1000 ml 2000 ml 250 ml Results Result Diagram: 08/21/18 0508/21/18 05 Medications Medications Current Medications Miscellaneous Information 1 ea NOTE XX ; Start 08/18/18 at 14:30 Glucose (Glutose) 15 gm Q15M PRN PO DECREASED GLUCOSE; Start 08/18/18 at 14:30 Glucose (Glutose) 22.5 gm Q15M PRN PO DECREASED GLUCOSE; Start 08/18/18 at 14:30 Dextrose (D50w Syringe) 25 ml Q15M PRN IV DECREASED GLUCOSE; Start 08/18/18 at 14:30 Dextrose (D50w Syringe) 50 ml Q15M PRN IV DECREASED GLUCOSE; Start 08/18/18 at 14:30 Glucagon (Glucagen) 1 mg Q15M PRN IM DECREASED GLUCOSE; Start 08/18/18 at 14:30 Glucose (Glutose) 15 gm Q15M PRN BUCCAL DECREASED GLUCOSE; Start 08/18/18 at 14:30 Aspirin (Halfprin) 81 mg DAILY PO Last administered on 08/21/18 08:09; Admin Dose 81 MG; Start 08/19/18 at 09:00 Atorvastatin Calcium (Lipitor) 40 mg HS PO Last administered on 08/20/18 20:48; Admin Dose 40 MG; Start 08/18/18 at 21:00 Clopidogrel Bisulfate (plaVIX) 75 mg DAILY PO Last administered on 08/21/18 08:09; Admin Dose 75 MG; Start 08/19/18 at 09:00 Cholecalciferol (Vitamin D) 2,000 unit DAILY PO Last administered on 08/21/18 08:09; Admin Dose 2,000 UNIT; Start 08/19/18 at 09:00 Fluticasone/ Vilanterol (Breo Ellipta 100-25 Mcg Inh) 1 inh BID INH Last administered on 08/21/18 08:22; Admin Dose 1 INH; Start 08/18/18 at 21:00 Losartan Potassium (Cozaar) 25 mg BID PO Last administered on 08/21/18 08:20; Admin Dose 25 MG; Start 08/18/18 at 21:00 IV Flush (NS 3 ml) 3 ml PER PROTOCOL IV ; Start 08/18/18 at 15:30 Ondansetron HCl (Zofran Inj) 4 mg Q6H PRN IV NAUSEA AND/OR VOMITING; Start 08/18/18 at 15:30 Acetaminophen (Tylenol Tab) 650 mg Q6H PRN PO PAIN LEVEL 1-3 OR FEVER Last administered on 08/21/18 06:13; Admin Dose 650 MG; Start 08/18/18 at 15:30 Acetaminophen/ Hydrocodone Bitart ([place] (5/325)) 1 tab Q6H PRN PO PAIN LEVEL 4-6 Last administered on 08/20/18 05:19; Admin Dose 1 TAB; Start 08/18/18 at 15:30 Docusate Sodium (Colace) 100 mg Q12H PRN PO CONSTIPATION; Start 08/18/18 at 15:30 Magnesium Hydroxide (Milk Of Mag) 30 ml DAILY PRN PO CONSTIPATION; Start 08/18/18 at 15:30 Pantoprazole (Protonix Iv) 40 mg BID IV Last administered on 08/21/18 08:08; Admin Dose 40 MG; Start 08/18/18 at 21:00 Enoxaparin Sodium (Lovenox) 40 mg DAILY SC Last administered on 08/21/18 08:30; Admin Dose 40 MG; Start 08/19/18 at 09:00 Lorazepam (Ativan) 1 mg Q2 PRN IV withdrawal, agitation; Start 08/18/18 at 15:30 Insulin Aspart (Novolog Insulin Pen) NOVOLOG *MILD* ALGORITHM WITH MEALS BEDTIM E SC Last administered on 08/21/18 12:34; Admin Dose 5 UNIT; Start 08/18/18 at 17:55 Hydralazine HCl (Apresoline) 10 mg Q4H PRN IV SBP>170 Last administered on 08/21/18 00:21; Admin Dose 10 MG; Start 08/18/18 at 16:30 Loratadine (Claritin) 10 mg DAILY PO Last administered on 08/21/18 08:09; Admin Dose 10 MG; Start 08/18/18 at 18:30 Guaifenesin (Mucinex) 600 mg BID PO Last administered on 08/21/18 08:09; Admin Dose 600 MG; Start 08/18/18 at 21:00 Enalaprilat (Vasotec Iv) 0.625 mg Q4H PRN IV SBP >170; Start 08/18/18 at 18:30 Vancomycin HCl (Vanco Iv Per Pharmacy) VANCOMYCIN PER PHARMACY PER PROTOCOL XX ; Start 08/19/18 at 09:30 Vancomycin HCl 250 ml @ 125 mls/hr Q12H IVPB Last administered on 08/21/18 12:29; Admin Dose 125 MLS/HR; Start 08/20/18 at 00:00 Sucralfate (Carafate Susp) 1 gm QID PO Last administered on 08/21/18 12:29; Admin Dose 1 GM; Start 08/19/18 at 13:00 Thiamine HCl (Vitamin B1) 100 mg DAILY PO Last administered on 08/21/18 08:09; Admin Dose 100 MG; Start 08/20/18 at 10:00 Folic Acid (Folic Acid) 0.4 mg DAILY PO Last administered on 08/21/18 08:09; Admin Dose 0.4 MG; Start 08/20/18 at 10:30 Levofloxacin (Levaquin) 500 mg DAILY@06 PO Last administered on 08/21/18 06:13; Admin Dose 500 MG; Start 08/20/18 at 15:30 Sodium Chloride 1,000 ml @ 100 mls/hr Q10H IV ; Start 08/21/18 at 09:00 Amlodipine Besylate (Norvasc) 10 mg DAILY PO ; Start 08/22/18 at 09:00 Chlordiazepoxide (Librium) 10 mg TID PO Last administered on 08/21/18 12:30; Admin Dose 10 MG; Start 08/21/18 at 13:00 Insulin Aspart (Novolog Insulin Pen) 18 unit WITH MEALS SC Last administered o n 08/21/18 12:33; Admin Dose 18 UNIT; Start 08/21/18 at 11:50 Insulin Glargine (Lantus) 36 units DAILY@2000 SC ; Start 08/21/18 at 20:00 VTE Prophylaxis Risk score (from Nsg)>0 risk: 3 SCD applied (from Ns): No SCD contraindication: other Lines/Catheters IV Catheter Type: Hooks in Place: No Assessment/Plan Hospital Course Subjective patient feeling better, still with chronic issues Objective Physical exam General: Patient is laying in bed and answers questions appropriately Mentation: Patient is alert and oriented 4, Head: Normocephalic atraumatic Eyes: EOMI, pupils reactive to light Neck: Supple, nontender, midline Respiratory: Clear to auscultation bilaterally Cardiovascular: regular rate, no obvious murmurs Gastrointestinal: non-tender to palpation, bowel sounds heard. 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 Acute alcohol intoxication-resolved - Librium started and will need quick taper - monitor for withdrawal and DTs Metabolic acidosis secondary to alcohol ketoacidosis - stable, monitor Hypokalemia - will replace as needed - continue to monitor Diabetes Mellitus with hyperglycemia - A1c noted - glucose at time of admission was 450 and given insulin - Continue home novolog and Lantus. adjust as needed - ISS and accuchecks lobular renal cortex -incidental on CT -likely sequelae from prior infection or infarction -no renal function issues at this time, will need to follow up outpatient. HTN - will resume home medications and adjust for better control - PRN hydralazine on board PVD/CAD - on aspirin and plavix h/o CVA - aspirin on board DVT ppx - SCD - LMWH GI ppx - PPI BID -added carafate Diet - Carb controlled Disposition -pending CT chest -pending ST eval for dysphasia -pending ID recs for bacteremia RENU WHITE Aug 21, 2018 13:05
--- NOTE | 2018-08-21 13:31 | NUR ---
ST NOTE: pt is an 62 year old male admitted sec. to Acute alcohol intoxication and found to have metabolic acidosis secondary to alcohol ketoacidosis; PMH: DM: CVA:HTN; CT chest; no cxr in chart : Trace bilateral layering effusions are seen with faint basilar ground-glass and septal thickening. The lungs are otherwise clear. There is no pneumothorax. The airways are patent. There is no suspicious nodule or mass. pt reporting swallow difficulties but stating coughing with cold water; no coughing noted with reg thin liquid via cup; no overt difficulty with puree; solids; baseline mild wet vocal quality; will rec. f/up x1-2 to ensure safe tolerance of the liquids; st to follow
--- NOTE | 2018-08-21 13:55 | CONS ---
Date/Time of Note Date/Time of Note DATE: 08/21/18 TIME: 13:55 Assessment/Plan Assessment/Plan Hospital Course No acute events overnight per report patient is alert feels good denies pain no fevers overnight WBC 5.8, no shift no bands BUN 16 creatinine 1.36 Microbiology: Blood culture on admission grew coag negative staph species, repeat blood culture negative Antimicrobials: Levofloxacin vancomycin Physical examination this is a morbidly obese well-developed elderly man who is awake in no distress. Head atraumatic normocephalic neck is supple chest rise symmetrical breath sounds diminished bases. Heart: S1-S2. Abdomen soft bowel sounds present extremities without cyanosis Assessment: 1. Status post sepsis 2. Coag negative staph bacteremia, consistent with contaminant 3. Acute community-acquired bronchitis 4. Diabetes 5. Acute kidney insufficiency 6. Alcohol abuse Plan: Patient remains stable CT of the chest this morning reviewed, continue levofloxacin, DC Vanco, monitor renal function closely Result Diagram: 08/21/18 0523 08/21/18 0523 Results 24hrs Laboratory Tests Test 08/20/18 17:22 08/20/18 20:44 08/20/18 22:58 08/21/18 01:16 Bedside Glucose 296 H 237 H 271 H Vancomycin Level Trough 14.8 Test 08/21/18 05:23 08/21/18 07:50 08/21/18 12:23 White Blood Count 5.8 # Red Blood Count 3.69 L Hemoglobin 11.7 L Hematocrit 34.5 L Mean Corpuscular Volume 93.5 Mean Corpuscular 31.7 Hemoglobin Mean Corpuscular 33.9 Hemoglobin Concent Red Cell Distribution 13.0 Width Platelet Count 202 Mean Platelet Volume 10.5 H Immature Granulocytes % 0.300 Neutrophils % 66.5 Lymphocytes % 19.9 Monocytes % 10.5 Eosinophils % 2.1 Basophils % 0.7 Nucleated Red Blood 0.0 Cells % Immature Granulocytes # 0.020 Neutrophils # 3.9 Lymphocytes # 1.2 Monocytes # 0.6 Eosinophils # 0.1 Basophils # 0.0 Nucleated Red Blood 0.0 Cells # Sodium Level 135 Potassium Level 3.9 Chloride Level 105 Carbon Dioxide Level 24 Anion Gap 6 Blood Urea Nitrogen 16 Creatinine 1.36 H Est Glomerular Filtrat 53 L Rate mL/min Glucose Level 293 H Calcium Level 8.3 L Phosphorus Level 4.3 Magnesium Level 1.9 Bedside Glucose 317 H 304 H Consultation Date/Type/Reason Admit Date/Time Aug 18, 2018 at 15:07 Initial Consult Date Type of Consult id Exam/Review of Systems Vital Signs Vitals Vital Signs Date Temp Pulse Resp B/P (MAP) Pulse Ox O2 O2 Flow FiO2 Time Delivery Rate 08/21/18 77 12:23 08/21/18 98.0 18 140/72 100 Room Air 11:12 (94) 08/20/18 2.0 07:45 Intake and Output 08/20/18 08/20/18 08/21/18 1515:00 23:00 07:00 IntakeIntake Total 1000 ml 2000 ml 250 ml BalanceBalance 1000 ml 2000 ml 250 ml Medications Medications Current Medications Miscellaneous Information 1 ea NOTE XX ; Start 08/18/18 at 14:30 Glucose (Glutose) 15 gm Q15M PRN PO DECREASED GLUCOSE; Start 08/18/18 at 14:30 Glucose (Glutose) 22.5 gm Q15M PRN PO DECREASED GLUCOSE; Start 08/18/18 at 14:30 Dextrose (D50w Syringe) 25 ml Q15M PRN IV DECREASED GLUCOSE; Start 08/18/18 at 14:30 Dextrose (D50w Syringe) 50 ml Q15M PRN IV DECREASED GLUCOSE; Start 08/18/18 at 14:30 Glucagon (Glucagen) 1 mg Q15M PRN IM DECREASED GLUCOSE; Start 08/18/18 at 14:30 Glucose (Glutose) 15 gm Q15M PRN BUCCAL DECREASED GLUCOSE; Start 08/18/18 at 14:30 Aspirin (Halfprin) 81 mg DAILY PO Last administered on 08/21/18 08:09; Admin Dose 81 MG; Start 08/19/18 at 09:00 Atorvastatin Calcium (Lipitor) 40 mg HS PO Last administered on 08/20/18 20:48; Admin Dose 40 MG; Start 08/18/18 at 21:00 Clopidogrel Bisulfate (plaVIX) 75 mg DAILY PO Last administered on 08/21/18 08:09; Admin Dose 75 MG; Start 08/19/18 at 09:00 Cholecalciferol (Vitamin D) 2,000 unit DAILY PO Last administered on 08/21/18 08:09; Admin Dose 2,000 UNIT; Start 08/19/18 at 09:00 Fluticasone/ Vilanterol (Breo Ellipta 100-25 Mcg Inh) 1 inh BID INH Last administered on 08/21/18 08:22; Admin Dose 1 INH; Start 08/18/18 at 21:00 Losartan Potassium (Cozaar) 25 mg BID PO Last administered on 08/21/18 08:20; Admin Dose 25 MG; Start 08/18/18 at 21:00 IV Flush (NS 3 ml) 3 ml PER PROTOCOL IV ; Start 08/18/18 at 15:30 Ondansetron HCl (Zofran Inj) 4 mg Q6H PRN IV NAUSEA AND/OR VOMITING; Start 08/18/18 at 15:30 Acetaminophen (Tylenol Tab) 650 mg Q6H PRN PO PAIN LEVEL 1-3 OR FEVER Last administered on 08/21/18 06:13; Admin Dose 650 MG; Start 08/18/18 at 15:30 Acetaminophen/ Hydrocodone Bitart ([place] (5/325)) 1 tab Q6H PRN PO PAIN LEVEL 4-6 Last administered on 08/20/18 05:19; Admin Dose 1 TAB; Start 08/18/18 at 15:30 Docusate Sodium (Colace) 100 mg Q12H PRN PO CONSTIPATION; Start 08/18/18 at 15:30 Magnesium Hydroxide (Milk Of Mag) 30 ml DAILY PRN PO CONSTIPATION; Start 08/18/18 at 15:30 Pantoprazole (Protonix Iv) 40 mg BID IV Last administered on 08/21/18 08:08; Admin Dose 40 MG; Start 08/18/18 at 21:00 Enoxaparin Sodium (Lovenox) 40 mg DAILY SC Last administered on 08/21/18 08:30; Admin Dose 40 MG; Start 08/19/18 at 09:00 Lorazepam (Ativan) 1 mg Q2 PRN IV withdrawal, agitation; Start 08/18/18 at 15:30 Hydralazine HCl (Apresoline) 10 mg Q4H PRN IV SBP>170 Last administered on 08/21/18 00:21; Admin Dose 10 MG; Start 08/18/18 at 16:30 Loratadine (Claritin) 10 mg DAILY PO Last administered on 08/21/18 08:09; Admin Dose 10 MG; Start 08/18/18 at 18:30 Guaifenesin (Mucinex) 600 mg BID PO Last administered on 08/21/18 08:09; Admin Dose 600 MG; Start 08/18/18 at 21:00 Enalaprilat (Vasotec Iv) 0.625 mg Q4H PRN IV SBP >170; Start 08/18/18 at 18:30 Sucralfate (Carafate Susp) 1 gm QID PO Last administered on 08/21/18 12:29; Admin Dose 1 GM; Start 08/19/18 at 13:00 Thiamine HCl (Vitamin B1) 100 mg DAILY PO Last administered on 08/21/18 08:09; Admin Dose 100 MG; Start 08/20/18 at 10:00 Folic Acid (Folic Acid) 0.4 mg DAILY PO Last administered on 08/21/18 08:09; Admin Dose 0.4 MG; Start 08/20/18 at 10:30 Levofloxacin (Levaquin) 500 mg DAILY@06 PO Last administered on 08/21/18 06:13; Admin Dose 500 MG; Start 08/20/18 at 15:30 Sodium Chloride 1,000 ml @ 100 mls/hr Q10H IV Last administered on 08/21/18 13:14; Admin Dose 100 MLS/HR; Start 08/21/18 at 09:00 Amlodipine Besylate (Norvasc) 10 mg DAILY PO ; Start 08/22/18 at 09:00 Chlordiazepoxide (Librium) 10 mg TID PO Last administered on 08/21/18at 12:30; Admin Dose 10 MG; Start 08/21/18 at 13:00 Insulin Aspart (Novolog Insulin Pen) 18 unit WITH MEALS SC Last administered on 08/21/18at 12:33; Admin Dose 18 UNIT; Start 08/21/18 at 11:50 Insulin Glargine (Lantus) 36 units DAILY@2000 SC ; Start 08/21/18 at 20:00 Insulin Aspart (Novolog Insulin Pen) NOVOLOG *MODERATE* ALGORITHM WITH MEALS BEDTIME SC ; Start 08/21/18 at 17:55 TORO ARMIJO NP Aug 21, 2018 13:55
[2018-08-21] MEDS ORDERED: ALBUTEROL/IPRATROPIUM (NEB) 3 ML AMP HHN PRN (16:30)
--- NOTE | 2018-08-21 18:14 | NUR ---
END OF SHIFT SUMMARY Patient awake and alert, and able to follow commands. Patient afebrile. Rhythm as charted. Room air. Diabetic diet. No new development of wounds. Patient self-repositions/ambulates. Comfort and safety measures/ fall precautions in place. Patient updated on status, and plan of care. All of patient's needs met, and no acute distress/events. Will continue to monitor, and endorse care to shift production associate RN.
[2018-08-21] MEDS ORDERED: INSULIN GLARGINE [LANTus] (100 UNITS/ML) SYG SC SCH ×2 (20:00)
[2018-08-21] MEDS: BUDESONIDE (NEB) 0.5MG/2ML AMP HHN SCH (20:12)
[2018-08-21] MEDS: ALBUTEROL/IPRATROPIUM (NEB) 3 ML AMP HHN SCH (20:12)
[2018-08-21] MEDS: ATORVASTATIN 40 MG TAB PO SCH (21:48)
[2018-08-22] VITALS (7 sets, daily range): BP systolic 127–155; BP diastolic 55–92; PULSE 72–87; RESP 18–22
[2018-08-22] MEDS: ACETAMINOPHEN 325 MG TAB PO PRN ×2 (01:21→11:07)
[2018-08-22] MEDS: LEVOFLOXACIN 500 MG TAB PO SCH (05:58)
--- NOTE | 2018-08-22 07:20 | NUR ---
RN END OF SHIFT NOTE PATIENT ALERT AND ORIENTED X 4, DENIED PAIN, PATIENT ABLE TO MAKE NEEDS KNOWN. MEDS GIVEN SCHEDULED, PATIENT'S NEEDS MET ACCORDINGLY. PATIENT USES URINAL AND SOMETIMES USES THE RESTROOM, KEPT CLEAN AND DRY. BED IN THE LOWEST POSITION WITH BRAKES ENGAGED, HOURLY ROUNDING AND BED ALARM IN PLACE. CALL LIGHT AND PERSONAL ITEMS WITHIN EASY REACH. ENDORSED TO DAY SHIFT RN.
[2018-08-22] MEDS: INSULIN ASPART [NOVOLOG] 3 ML PEN SC SCH ×4 (08:11→12:23)
[2018-08-22] MEDS: FLUTICASONE/VILANTEROL 100-25 INH SCH (08:37)
[2018-08-22] MEDS: LORATADINE 10 MG TAB PO SCH (08:38)
[2018-08-22] MEDS: GUAIFENESIN LA 600 MG TABSR PO SCH (08:38)
[2018-08-22] MEDS: SUCRALFATE (100 MG/ML) 10ML CUP PO SCH ×2 (08:38→12:40)
[2018-08-22] MEDS: PANTOPRAZOLE 40 MG INJ IV SCH (08:38)
[2018-08-22] MEDS: CLOPIDOGREL 75 MG TAB PO SCH (08:38)
[2018-08-22] MEDS: THIAMINE 100 MG TAB PO SCH (08:38)
[2018-08-22] MEDS: CHLORDIAZEPOXIDE 5 MG CAP PO SCH (08:38)
[2018-08-22] MEDS: FOLIC ACID 0.4 MG TAB PO SCH (08:39)
[2018-08-22] MEDS: CHOLECALCIFEROL 2,000 UNIT CAP PO SCH (08:39)
[2018-08-22] MEDS: LOSARTAN 25 MG TAB PO SCH (08:39)
[2018-08-22] MEDS: ASPIRIN (EC) 81 MG TAB PO SCH (08:39)
[2018-08-22] MEDS: ENOXAPARIN 40 MG/0.4 ML SYG SC SCH (08:49)
[2018-08-22] MEDS: ALBUTEROL/IPRATROPIUM (NEB) 3 ML AMP HHN SCH ×2 (08:51→13:33)
[2018-08-22] MEDS: BUDESONIDE (NEB) 0.5MG/2ML AMP HHN SCH (08:51)
[2018-08-22] MEDS ORDERED: AMLODIPINE 10 MG TAB PO SCH (09:00)
--- NOTE | 2018-08-22 13:00 | NUR ---
RN NOTES PT. WITH ORDER FOR DISCHARGE HOME. PICTURE WAS TAKEN AND PLACED ON FILE.
[2018-08-22] MEDS ORDERED: OMEP20CA16 PO (13:21)
[2018-08-22] MEDS ORDERED: LEVO500T48 PO (13:21)
--- NOTE | 2018-08-22 13:32 | DS ---
Date/Time of Note Date/Time of Note DATE: 08/22/18 TIME: 13:32 Discharge Summary Admission/Discharge Info Admit Date/Time Aug 18, 2018 at 15:07 Discharge Date/Time Patient Condition: Stable Hospital Course Patient is a male with past medical history significant for diabetes mellitus, alcoholism who presented to [facility] as a transfer from outside facility for acute alcohol intoxication and epigastric pain. Patient's lipase was negative and patient is epigastric almost instantly resolved spontaneously however patient was continued on Protonix throughout the admission. Patient did not have any further abdominal pain after the first day. Of note patient incidentally was found to have blood cultures positive and th erefore infectious disease was called. Patient had repeat cultures and infectious disease eventually deemed patient's positive blood cultures as contaminant and did not recommend any additional antibiotics at discharge. Patient however will be discharged with a short course of Levaquin for possible bronchitis and early onset upper respiratory infection. Patient had multiple other chronic issues addressed during the stay including difficulty swallowing which patient states that has been going on for years, speech therapy saw patient and did note that he had some coughing with cold liquids and I subsequently ordered a barium swallow, however patient at this time wanted to go home and follow-up with his primary care physician and perform this test in the outpatient setting, I informed patient that this could be dangerous however patient refused current testing and considering this has been a chronic issue, it is likely safe for outpatient testing. Patient also is complaining of a chronic cough for approximately 4 years, chest CT was done and pulmonology also saw patient who stated to just continue patient on current medications. Given that this cough has been going on for [address] was done but did not show any acute issues. Patient will be discharged on Levaquin for possible early onset respiratory disease. Patient's cough could also be secondary to gastritis as he used to be an alcoholic. Patient will be discharged with omeprazole for GERD initiated chronic cough. Of note on CT scan, patient kidneys showed a lobular renal cortex which was incidental and CT stated that it might be sequelae from prior infection or infarction. When CT was done patient's renal function was within normal limits, however patient did have a very mild acute kidney injury in the upcoming days likely secondary to antibiotics however did stabilized at a low value of 1.3. Nephrology was consulted, however patient insisted on being discharged immediately before nephrology has a chance to see the patient and patient stated that he will follow-up with his primary care provider as soon as tomorrow in order to get repeat labs as well as get a referral to a retail merchandising coordinator. Also of note when patient's blood pressure and diabetes was addressed, it is of note that I recommended patient at least temporarily hold his valsartan until his renal function returns to normal limits, also offered to adjust and give him a prescription for other medications including an increased dose of amlodipine however patient stated that he does not need to change his blood pressure medications and stated that he will follow-up with his primary care provider and adjust his medications through him even when risk of stroke was mentioned, patient is alert and oriented and able to make his own decisions therefore I cannot force a change of medication. It was also recommended that he follow-up with his primary care provider to adjust his diabetes medication as it is not very well controlled, once again patient refused to change stated he will follow-up with his doctor and get that adjusted by him. Patient will continue other home medication at this time insists on being discharged to make a court appearance tomorrow. Patient is stable however does need immediate follow-up in the outpatient setting. This importance was further explained to patient using a clinical technician. Patient did not exhibit any signs of alcohol withdrawal during the stay and did finish a quick Librium taper Discharge diagnosis Difficulty swallowing, chronic Chronic cough Bacteremia, contaminant, stable Epigastric pain, resolved Acute alcohol intoxication, resolved Hypokalemia, monitor Diabetes mellitus, not well controlled Lobular renal cortex, follow-up urged Acute kidney injury, mild but follow-up encouraged Hypertension Peripheral vascular disease History of CVA Questionable GERD Home Meds Active Scripts Omeprazole* (Omeprazole*) 20 Mg Capsule., 20 MG PO DAILY, #30 CAP Prov:RENU WHITE 08/22/18 Levofloxacin* (Levaquin*) 500 Mg Tablet, 500 MG PO DAILY for 5 Days, #5 TAB Prov:RENU WHITE 08/22/18 Salmeterol Xinaf/Fluticasone* (Advair*) 250-50 Diskus Inhaler, 1 INH INH BID for 30 Days Prov:SANAZ DAVIS MD 04/15/17 Aspirin* (Aspirin* EC) 81 Mg Tablet., 81 MG PO DAILY for 30 Days Prov:SANAZ DAVIS MD 04/15/17 Atorvastatin* (Atorvastatin*) 40 Mg Tablet, 40 MG PO HS for 30 Days, TAB Prov:SANAZ DAVIS MD 04/15/17 Clopidogrel Bisulfate (Clopidogrel) 75 Mg Tablet, 75 MG PO DAILY for 30 Days, TAB Prov:SANAZ DAVIS MD 04/15/17 Valsartan* (Diovan*) 40 Mg Tablet, 40 MG PO BID for 30 Days, TAB Prov:SANAZ DAVIS MD 04/15/17 Amlodipine Besylate* (Norvasc*) 5 Mg Tablet, 2.5 MG PO DAILY for 30 Days, TAB Prov:SANAZ DAVIS MD 04/15/17 Insulin Aspart* (Novolog Insulin Pen*) 100 Unit/Ml Soln, 15 UNIT SC WITH MEALS for 30 Days, #1 SYR Prov:HERRERA,BRANDON V. OILER BANDER 03/23/17 Metformin Hcl (Glucophage) 500 Mg Tablet, 1000 MG PO BID WITH MEALS for 30 Days, #60 TAB Prov:HERRERA,BRANDON V. OILER BANDER 03/23/17 Linagliptin (TRADJENTA) 5 Mg Tablet, 5 MG PO DAILY for 30 Days, #30 TAB Prov:HERRERA,BRANDON V. OILER BANDER 03/23/17 Insulin Glargine* (Lantus*) 100 Unit/Ml Soln, 45 UNIT SC HS for 30 Days, #1 SYR Prov:HERRERA,BRANDON V. OILER BANDER 03/23/17 Reported Medications Ergocalciferol (Vitamin D2) (VITAMIN D2) 2,000 Unit Tablet, 2000 UNIT PO DAILY, TAB 03/15/17 Discontinued Scripts Acetaminophen* (Tylenol*) 325 Mg Tablet, 1 TAB PO Q8 PRN for PAIN AND OR ELEVATED TEMP, #20 TAB Prov:GALA GALVIN MD 12/16/17 Cephalexin* (Keflex*) 500 Mg Capsule, 500 MG PO Q12 for 7 Days, #14 CAP Prov:GALA GALVIN MD 12/16/17 Hydrocodone/Acetaminophen ([place] 5-325 Tablet) 1 Each Tablet, 1 EACH PO Q6 for 7 Days, TAB Prov:SANAZ KING DO 04/22/17 Collagenase* (Santyl*) 30 Gm Oint..gm., 1 APPLIC TOP DAILY for 42 Days, #1 APPLY TO LEFT TOW WOUND AFTER CLEANING WITH NORMAL SALINE AND APPLY KERLIX DRESSING. Prov:BRANDON HERRERA V. OILER BANDER 03/23/17 Hydrocodone/Acetaminophen ([place] 5-325 Tablet) 1 Each Tablet, 1 TAB PO Q6H PRN for PAIN, #20 TAB Prov:FLAVIOVAISHALI Matt OILER BANDER 03/14/17 Primary Care Provider Hannah Dubois DO Time spent on discharge: > 30 minutes Pending Labs Laboratory Tests Test 08/21/18 17:43 08/21/18 21:43 08/22/18 01:16 08/22/18 05:41 Bedside 207 135 289 Glucose mg/dL (70-220) mg/dL (70-220) mg/dL (70-220) White Blood 6.4 Count 10^3/ul (4.8-1 0.8) Red Blood 3.56 Count 10^6/ul (4.70- 6.10) Hemoglobin 11.3 g/dl (14.0-18. 0) Hematocrit 33.6 % (42.0-52.0) Mean 94.4 Corpuscular fl (82.0-101.0 Volume ) Mean 31.7 Corpuscular pg (29.0-33.0) Hemoglobin Mean 33.6 Corpuscular g/dl (32.0-37. Hemoglobin Conc 0) ent Red Cell 13.0 Distribution % (11.5-14.5) Width Platelet Count 197 10^3/UL (140-4 15) Mean Platelet 10.4 Volume fl (7.4-10.4) Immature 0.800 Granulocytes % % (0.001-0.429 ) Neutrophils % 60.4 % (39.0-77.0) Lymphocytes % 25.0 % (15.0-51.0) Monocytes % 11.5 % (0.0-11.0) Eosinophils % 1.7 % (0.0-7.0) Basophils % 0.6 % (0.0-2.0) Nucleated Red 0.0 Blood Cells % /100WBC (0.0-0 .0) Immature 0.050 Granulocytes # 10^3/ul (0.0-0 .031) Neutrophils # 3.8 10^3/ul (1.6-7 .5) Lymphocytes # 1.6 10^3/ul (0.8-2 .9) Monocytes # 0.7 10^3/ul (0.3-0 .9) Eosinophils # 0.1 10^3/ul (0.0-0 .5) Basophils # 0.0 10^3/ul (0.0-0 .1) Nucleated Red 0.0 Blood Cells # 10^3/ul (0.0-0 .0) Sodium Level 137 mmol/L (135-14 4) Potassium 3.8 Level mmol/L (3.5-5. 1) Chloride Level 104 mmol/L (97-110 ) Carbon Dioxide 26 Level mmol/L (21-31) Anion Gap 7 (5-13) Blood Urea 17 Nitrogen mg/dl (7-20) Creatinine 1.30 mg/dl (0.61-1. 24) Est Glomerular 56 Filtrat mL/min (>60) Rate mL/min Glucose Level 305 mg/dl (70-220) Calcium Level 8.8 mg/dl (8.4-10. 2) Phosphorus 4.5 Level mg/dl (2.5-4.9 ) Magnesium 1.8 Level mg/dl (1.7-2.5 ) Test 08/22/18 07:52 08/22/18 11:59 Bedside 300 311 Glucose mg/dL (70-220) mg/dL (70-220) RENU WHITE Aug 22, 2018 13:32
--- NOTE | 2018-08-22 13:36 | PDOCDIS ---
Discharge Instructions CONDITION [id number] Patient Condition: [id number] Stable HOME CARE INSTRUCTIONS: [id number] Special Diet: Acphu9w carb controlled FOLLOW UP/APPOINTMENTS Follow-up Plan 1. Please follow up with your primary care doctor immediately regarding the following -Acute Kidney injury with creatinine of 1.3, you will need repeat renal bloodwork -Lobular renal cortex, please address, nephrology referral if needed for likely prior infarct or infection -Better diabetes control, medication adjustment recommended, poor glycemic control -please do not take losartan until your kidney function has returned back to normal, patient refused to wait additional time to ensure proper blood pressure levels on different medication. -Barium swallow to eval for chronic difficultly swallowing -Continue omeprazole for possible GERD causing chronic cough RENU WHITE Aug 22, 2018 13:36
--- NOTE | 2018-08-22 15:25 | CONS ---
Date/Time of Note Date/Time of Note DATE: 08/22/18 TIME: 15:23 Assessment/Plan Assessment/Plan Hospital Course Alert, /o sore throat, no fevers Microbiology: Blood culture on admission grew coag negative staph species, r epeat blood culture negative Antimicrobials: Levofloxacin Physical examination this is a morbidly obese well-developed elderly man who is awake in no distress. Head atraumatic normocephalic neck is supple chest rise symmetrical breath sounds diminished bases. Heart: S1-S2. Abdomen soft bowel s ounds present extremities without cyanosis, + edema, R>L Assessment: 1. Status post sepsis 2. Coag negative staph bacteremia, consistent with contaminant 3. Acute community-acquired bronchitis 4. Diabetes 5. Acute kidney insufficiency 6. Alcohol abuse Plan: Patient remains stable, continue levofloxacin for 4 more days, ?dc planning Result Diagram: 08/22/18 0541 08/22/18 0541 Results 24hrs Laboratory Tests Test 08/21/18 17:43 08/21/18 21:43 08/22/18 01:16 08/22/18 05:41 Bedside Glucose 207 135 289 H White Blood Count 6.4 Red Blood Count 3.56 L Hemoglobin 11.3 L Hematocrit 33.6 L Mean Corpuscular Volume 94.4 Mean Corpuscular 31.7 Hemoglobin Mean Corpuscular 33.6 Hemoglobin Concent Red Cell Distribution 13.0 Width Platelet Count 197 Mean Platelet Volume 10.4 Immature Granulocytes % 0.800 H Neutrophils % 60.4 Lymphocytes % 25.0 Monocytes % 11.5 H Eosinophils % 1.7 Basophils % 0.6 Nucleated Red Blood 0.0 Cells % Immature Granulocytes # 0.050 H Neutrophils # 3.8 Lymphocytes # 1.6 Monocytes # 0.7 Eosinophils # 0.1 Basophils # 0.0 Nucleated Red Blood 0.0 Cells # Sodium Level 137 Potassium Level 3.8 Chloride Level 104 Carbon Dioxide Level 26 Anion Gap 7 Blood Urea Nitrogen 17 Creatinine 1.30 H Est Glomerular Filtrat 56 L Rate mL/min Glucose Level 305 H Calcium Level 8.8 Phosphorus Level 4.5 Magnesium Level 1.8 Test 08/22/18 07:52 08/22/18 11:59 Bedside Glucose 300 H 311 H Consultation Date/Type/Reason Admit Date/Time Aug 18, 2018 at 15:07 Initial Consult Date Type of Consult id Exam/Review of Systems Vital Signs Vitals Vital Signs Date Temp Pulse Resp B/P (MAP) Pulse Ox O2 O2 Flow FiO2 Time Delivery Rate 08/22/18 21 13:36 08/22/18 79 24 97 13:35 08/22/18 97.7 138/92 11:52 (107) 08/21/18 Room Air 15:15 08/20/18 2.0 07:45 Intake and Output 08/21/18 08/21/18 08/22/18 1515:00 23:00 07:00 IntakeIntake Total 426.6 ml 1300 ml 420 ml OutputOutput Total 1280 ml 500 ml BalanceBalance 426.6 ml 20 ml -80 ml Medications Medications Current Medications Miscellaneous Information 1 ea NOTE XX ; Start 08/18/18 at 14:30 Glucose (Glutose) 15 gm Q15M PRN PO DECREASED GLUCOSE; Start 08/18/18 at 14:30 Glucose (Glutose) 22.5 gm Q15M PRN PO DECREASED GLUCOSE; Start 08/18/18 at 14:30 Dextrose (D50w Syringe) 25 ml Q15M PRN IV DECREASED GLUCOSE; Start 08/18/18 at 14:30 Dextrose (D50w Syringe) 50 ml Q15M PRN IV DECREASED GLUCOSE; Start 08/18/18 at 14:30 Glucagon (Glucagen) 1 mg Q15M PRN IM DECREASED GLUCOSE; Start 08/18/18 at 14:30 Glucose (Glutose) 15 gm Q15M PRN BUCCAL DECREASED GLUCOSE; Start 08/18/18 at 14:30 Aspirin (Halfprin) 81 mg DAILY PO Last administered on 08/22/18 08:39; Admin Dose 81 MG; Start 08/19/18 at 09:00 Atorvastatin Calcium (Lipitor) 40 mg HS PO Last administered on 08/21/18 21:48; Admin Dose 40 MG; Start 08/18/18 at 21:00 Clopidogrel Bisulfate (plaVIX) 75 mg DAILY PO Last administered on 08/22/18 08:38; Admin Dose 75 MG; Start 08/19/18 at 09:00 Cholecalciferol (Vitamin D) 2,000 unit DAILY PO Last administered on 08/22/18 08:39; Admin Dose 2,000 UNIT; Start 08/19/18 at 09:00 IV Flush (NS 3 ml) 3 ml PER PROTOCOL IV ; Start 08/18/18 at 15:30 Ondansetron HCl (Zofran Inj) 4 mg Q6H PRN IV NAUSEA AND/OR VOMITING; Start 08/18/18 at 15:30 Acetaminophen (Tylenol Tab) 650 mg Q6H PRN PO PAIN LEVEL 1-3 OR FEVER Last administered on 08/22/18 11:07; Admin Dose 650 MG; Start 08/18/18 at 15:30 Acetaminophen/ Hydrocodone Bitart ([place] (5/325)) 1 tab Q6H PRN PO PAIN LEVEL 4-6 Last administered on 08/20/18 05:19; Admin Dose 1 TAB; Start 08/18/18 at 15:30 Docusate Sodium (Colace) 100 mg Q12H PRN PO CONSTIPATION; Start 08/18/18 at 15:30 Magnesium Hydroxide (Milk Of Mag) 30 ml DAILY PRN PO CONSTIPATION; Start 08/18/18 at 15:30 Enoxaparin Sodium (Lovenox) 40 mg DAILY SC Last administered on 08/22/18 08:49; Admin Dose 40 MG; Start 08/19/18 at 09:00 Lorazepam (Ativan) 1 mg Q2 PRN IV withdrawal, agitation; Start 08/18/18 at 15:30 Hydralazine HCl (Apresoline) 10 mg Q4H PRN IV SBP>170 Last administered on 08/21/18 00:21; Admin Dose 10 MG; Start 08/18/18 at 16:30 Loratadine (Claritin) 10 mg DAILY PO Last administered on 08/22/18 08:38; Admin Dose 10 MG; Start 08/18/18 at 18:30 Guaifenesin (Mucinex) 600 mg BID PO Last administered on 08/22/18 08:38; Admin Dose 600 MG; Start 08/18/18 at 21:00 Enalaprilat (Vasotec Iv) 0.625 mg Q4H PRN IV SBP >170; Start 08/18/18 at 18:30 Sucralfate (Carafate Susp) 1 gm QID PO Last administered on 08/22/18 12:40; Ad min Dose 1 GM; Start 08/19/18 at 13:00 Thiamine HCl (Vitamin B1) 100 mg DAILY PO Last administered on 08/22/18 08:38; Admin Dose 100 MG; Start 08/20/18 at 10:00 Folic Acid (Folic Acid) 0.4 mg DAILY PO Last administered on 08/22/18 08:39; Admin Dose 0.4 MG; Start 08/20/18 at 10:30 Levofloxacin (Levaquin) 500 mg DAILY@06 PO Last administered on 08/22/18at 05:58; Admin Dose 500 MG; Start 08/20/18 at 15:30 Amlodipine Besylate (Norvasc) 10 mg DAILY PO Last administered on 08/22/18 08:39; Admin Dose 10 MG; Start 08/22/18 at 09:00 Insulin Aspart (Novolog Insulin Pen) 18 unit WITH MEALS SC Last administered on 08/22/18 12:23; Admin Dose 18 UNIT; Start 08/21/18 at 11:50 Insulin Aspart (Novolog Insulin Pen) NOVOLOG *MODERATE* ALGORITHM WITH MEALS BEDTIME SC Last administered on 08/22/18 12:23; Admin Dose 10 UNIT; Start 08/21/18 at 17:55 Albuterol/ Ipratropium (Duoneb) 3 ml Q6HWA RESP THERAPY HHN Last administered on 08/22/18 13:33; Admin Dose 3 ML; Start 08/21/18 at 20:00 Albuterol/ Ipratropium (Duoneb) 3 ml Q2H RESP THERAPY PRN HHN shortness of breath; Start 08/21/18 at 16:30 Budesonide (Pulmicort (Neb)) 0.5 mg BID RESP THERAPY HHN Last administered on 08/22/18 08:51; Admin Dose 0.5 MG; Start 08/21/18 at 20:00 Pantoprazole (Protonix Tab) 40 mg DAILY@06 PO ; Start 08/23/18 at 06:00 Insulin Glargine (Lantus) 46 units DAILY@2000 SC ; Start 08/22/18 at 20:00 TORO ARMIJO NP Aug 22, 2018 15:25
--- NOTE | 2018-08-22 15:32 | NUR ---
SW: ETOH SW met with this 62-year-old Mohawk speaking male with it support manager at bedside for ETOH abuse consult. Patient states he lives at [address] [place] [address] with his and adult children. 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 Denies having an AHCD, and verbally designated his Janessa Guillen ([phone]) as surrogate spokesperson. Substance use: Patient states that he does not drink alcohol regularly, but states that he will occasionally binge drinks. States that once every 6 months he will drink for the whole day, including vodka, tequila, beer, and "all of it." However, states that he does not drink regularly, and states that this only occurs once every 6 months. He states that he has gotten a DUI about 25 years ago, but states that he has no recent DUI's. States that he does not drink and drive. He declined any/ all substance abuse resources, stating that he has no need for it since he does not drink regularly. Patient denies any questions or concerns at this time. Declined any/ all substance abuse resources. Hospital Internship remains available as needed throughout patient's treatment process.
--- NOTE | 2018-08-22 15:35 | NUR ---
RN NOTES PT. IS STABLE FOR DISCHARGE. ALL MEDICATION INSTRUCTION WAS GIVEN TO THE PT. AND HE VERBALIZED UNDERSTANDING. PRESCRIPTION WAS GIVEN. AND ALSO INSTRUCTED TO FOLLOW UP WITH HIS PRIMARY CARE PHYSICIAN IN A WEEK. IV HEPLOCK WAS REMOVED ACETICALLY. ALL D/C PAPERS WAS GIVEN TO THE PT. AND HE WAS DISCHARGE WITH HIS FRIEND PER WHEELCHAIR IN STABLE CONDITION.
--- NOTE | 2018-08-22 19:18 | CONS ---
DATE OF ADMISSION: 08/18/2018 DATE OF CONSULTATION: REASON FOR CONSULTATION: Shortness of breath. Thank you, Dr. Hernández, for this consultation. HISTORY OF PRESENT ILLNESS: This is a 62-year-old gentleman with multiple medical problems including diabetes mellitus, hypertension, hyperlipidemia, peripheral vascular disease, history of CVA, came i n with alcohol intoxication, dyspnea and increased cough. A CT chest was performed, showed mild pulm onary edema clinically patient has been improving since initiation of treatment for mild bronchitis. PAST MEDICAL HISTORY: As above. MEDICATIONS: Per chart. ALLERGIES: NONE. SOCIAL HISTORY: Nonsmoker, no alcohol, no history of drug use. FAMILY HISTORY: Noncontributory. SYSTEMS REVIEW: A 12-point review of systems was negative on admission. PHYSICAL EXAMINATION: GENERAL: Morbidly obese gentleman, comfortable at rest, no acute distress. VITAL SIGNS: Currently afebrile, pulse is 74, blood pressure 138/92, O2 saturation 96%, FIO2 of room air. NECK: Supple, no JVD or lymphadenopathy. CARDIAC: S1, S2, no added sounds or murmurs. CHEST: Diminished air entry bilaterally. ABDOMEN: Soft, nontender. No guarding or rebound. EXTREMITIES: No cyanosis, clubbing, edema. NEUROLOGIC: Grossly intact. No focal deficits. LABORATORY DATA: Per chart. IMPRESSION AND PLAN: 1. ETOH intoxication. 2. Mild tracheal bronchitis with pulmonary edema. 3. Likely underlying obstructive sleep apnea. 4. Diabetes mellitus. PLAN: 1. The patient will require social work coordinator input or ETOH abuse. 2. Bronchodilator treatment as needed. 3. Outpatient sleep study and pulmonary function testing. The patient likely stable for discharge t jose. Dictated By: JOCELYN COPE MD SV/NTS Conf#: [id number] DID#: [id number] CC: CALI PRADO MD;*EndCC*
[2018-08-22] MEDS ORDERED: INSULIN GLARGINE [LANTus] (100 UNITS/ML) SYG SC SCH (20:00)
[2018-08-23] MEDS ORDERED: PANTOPRAZOLE (EC) 40 MG TAB PO SCH (06:00)
== END 2018-08-22 15:33 | disposition home or self-care (01) | DRG 392 ==
LOC: E/R 10:38 → TEL 15:07
PROVIDERS: ADMIT Internal Medicine; ATTEND Internal Medicine
DX: K21.9 Gastro-esophageal reflux disease without esophagitis (principal); E87.2 Acidosis; R65.10 Systemic inflammatory response syndrome (SIRS) of non-infectious origin without acute organ dysfunction; F10.239 Alcohol dependence with withdrawal, unspecified; N17.9 Acute kidney failure, unspecified; F10.129 Alcohol abuse with intoxication, unspecified; R11.2 Nausea with vomiting, unspecified; R19.7 Diarrhea, unspecified; R13.10 Dysphagia, unspecified; E87.6 Hypokalemia; E11.65 Type 2 diabetes mellitus with hyperglycemia; I10 Essential (primary) hypertension; I73.9 Peripheral vascular disease, unspecified; Z79.02 Long term (current) use of antithrombotics/antiplatelets; Z86.73 Personal history of transient ischemic attack (TIA), and cerebral infarction without residual deficits; J20.9 Acute bronchitis, unspecified; R16.0 Hepatomegaly, not elsewhere classified; J30.9 Allergic rhinitis, unspecified; E66.9 Obesity, unspecified; Z68.31 Body mass index [BMI] 31.0-31.9, adult; N28.9 Disorder of kidney and ureter, unspecified; G47.33 Obstructive sleep apnea (adult) (pediatric)
CPT/HCPCS: 36415; 71250; 71260; 73562; 74177; 80048; 80053; 80202; 81001; 82803; 82962; 83036; 83690; 83735; 84100; 85025; 86480; 87040; 87086; 87400; 92610; 93005; 93306; 93970; 94640; 94664; 96372; 96374; 96375; C9113; J0360; J1650; J1815; J2060; J2405; J3370; J3411; J3480; J7030; J7040; Q9967

== ENCOUNTER 2018-08-30 11:41 | Inpatient (IN) | payer OTHER ==
[~2018-08-30] VITALS: Ht 167.6 cm; Wt 88.5 kg
[~2018-08-30 11:41] MED LIST changes: -ACET325T33 PO; -CEPH-443 PO; -HYDR-4011 PO; +LEVO500T48 PO; +OMEP20CA16 PO; -SAN30GM TOP; -VALS40TA2 PO
--- NOTE | 2018-08-30 15:04 | ERD ---
ER Documentation Chief Complaint Chief Complaint DIABETIC R FOOT ULCER HPI 63-year-old male presenting with 2 days of bilateral lower extremity swelling with increasing shortness of breath. His primary reason for coming in was becau se he has right lower extremity wound that he is noticed yesterday. He was concerned it was infected and wanted to come in for evaluation. His also noticed that he was swollen which has not happened to him before, however the patient did not notice this. He denies any associated fevers or chills. 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 No chest pain or abdominal pain. He has clear phlegm production with coughing. Shortness of breath is worse with exertion. He denies being on diuretics and denies any history of heart failure. ROS All systems reviewed and are negative except as per history of present illness. Medications Home Meds Active Scripts Omeprazole* (Omeprazole*) 20 Mg Capsule., 20 MG PO DAILY, #30 CAP Prov:RENU WHITE 08/22/18 Levofloxacin* (Levaquin*) 500 Mg Tablet, 500 MG PO DAILY for 5 Days, #5 TAB Prov:RENU WHITE 08/22/18 Salmeterol Xinaf/Fluticasone* (Advair*) 250-50 Diskus Inhaler, 1 INH INH BID for 30 Days Prov:SANZA DAVIS MD 04/15/17 Aspirin* (Aspirin* EC) 81 Mg Tablet., 81 MG PO DAILY for 30 Days Prov:SANAZ DAVIS MD 04/15/17 Atorvastatin* (Atorvastatin*) 40 Mg Tablet, 40 MG PO HS for 30 Days, TAB Prov:SANAZ DAVIS MD 04/15/17 Clopidogrel Bisulfate (Clopidogrel) 75 Mg Tablet, 75 MG PO DAILY for 30 Days, TAB Prov:SANAZ DAVIS MD 04/15/17 Amlodipine Besylate* (Norvasc*) 5 Mg Tablet, 2.5 MG PO DAILY for 30 Days, TAB Prov:SANAZ DAVIS MD 04/15/17 Insulin Aspart* (Novolog Insulin Pen*) 100 Unit/Ml Soln, 15 UNIT SC WITH MEALS for 30 Days, #1 SYR Prov:BRANDON HERRERA NP 03/23/17 Metformin Hcl (Glucophage) 500 Mg Tablet, 1000 MG PO BID WITH MEALS for 30 Days, #60 TAB Prov:HERRERA,BRANDON V. AMBULANCE DISPATCHER 03/23/17 Linagliptin (TRADJENTA) 5 Mg Tablet, 5 MG PO DAILY for 30 Days, #30 TAB Prov:HERRERA,BRANDON V. AMBULANCE DISPATCHER 03/23/17 Insulin Glargine* (Lantus*) 100 Unit/Ml Soln, 45 UNIT SC HS for 30 Days, #1 SYR Prov:HERRERA,BRANDON V. AMBULANCE DISPATCHER 03/23/17 Reported Medications Ergocalciferol (Vitamin D2) (VITAMIN D2) 2,000 Unit Tablet, 2000 UNIT PO DAILY, TAB 03/15/17 Allergies Allergies: Coded Allergies: No Known Allergy (Unverified , 08/30/18) PMhx/Soc History of Surgery: Yes (Left Hernia repair) Anesthesia Reaction: No Hx Neurological Disorder: No Hx Respiratory Disorders: No Hx Cardiac Disorders: Yes (HTN; Dyslipidemia) Hx Psychiatric Problems: No Hx Miscellaneous Medical Probl: Yes (DM) Hx Alcohol Use: Yes (occasional) Hx Substance Use: No Hx Tobacco Use: No Smoking Status: Never smoker FmHx Family History: No coronary disease Physical Exam Vitals Vital Signs Date Temp Pulse Resp B/P (MAP) Pulse Ox O2 O2 Flow FiO2 Time Delivery Rate 08/30/18 81 22 166/77 92 Room Air 19:00 (106) 08/30/18 85 18 143/57 94 Room Air 18:00 (85) 08/30/18 88 18 160/57 95 Room Air 17:00 (91) 08/30/18 80 18 140/86 96 Room Air 14:45 (104) 08/30/18 98.9 91 18 131/63 99 11:44 (85) Physical Exam Const: No acute distress, frequent coughing on exam. Able to speak in full sentences Head: Atraumatic Eyes: Normal Conjunctiva ENT: Normal External Ears, Nose and Mouth. Neck: Full range of motion. No meningismus. Resp: Diminished breath sounds bilaterally with no rales, wheezing, rhonchi Cardio: Regular rate and rhythm, no murmurs Abd: Soft, non tender, non distended. Normal bowel sounds Skin: No petechiae or rashes Back: No midline or flank tenderness Ext: 2+ bilateral lower extremity pitting edema. Right lower extremity with superficial scabbed wound of the right lower thorpe. No surrounding cellulitis, induration, or fluctuance. No foot wounds noted. Neur: Awake and alert Psych: Normal Mood and Affect Result Diagram: 08/30/18 1440 08/30/18 1440 Results 24 hrs Laboratory Tests Test 08/30/18 14:40 08/30/18 18:44 08/30/18 18:47 White Blood Count 7.8 10^3/ul Red Blood Count 3.73 10^6/ul Hemoglobin 11.8 g/dl Hematocrit 36.5 % Mean Corpuscular Volume 97.9 fl Mean Corpuscular Hemoglobin 31.6 pg Mean Corpuscular 32.3 g/dl Hemoglobin Concent Red Cell Distribution Width 13.2 % Platelet Count 361 10^3/UL Mean Platelet Volume 10.5 fl Immature Granulocytes % 0.400 % Neutrophils % 71.2 % Lymphocytes % 19.1 % Monocytes % 7.8 % Eosinophils % 1.0 % Basophils % 0.5 % Nucleated Red Blood Cells % 0.0 /100WBC Immature Granulocytes # 0.030 10^3/ul Neutrophils # 5.6 10^3/ul Lymphocytes # 1.5 10^3/ul Monocytes # 0.6 10^3/ul Eosinophils # 0.1 10^3/ul Basophils # 0.0 10^3/ul Nucleated Red Blood Cells # 0.0 10^3/ul Sodium Level 137 mmol/L Potassium Level 4.7 mmol/L Chloride Level 101 mmol/L Carbon Dioxide Level 27 mmol/L Anion Gap 9 Blood Urea Nitrogen 26 mg/dl Creatinine 1.76 mg/dl Est Glomerular Filtrat Rate mL/min 39 mL/min Glucose Level 460 mg/dl Calcium Level 8.7 mg/dl Troponin I 0.040 ng/ml B-Type Natriuretic Peptide 541 PG/ML Albumin 3.0 g/dl Bedside Glucose 418 mg/dL 414 mg/dL Current Medications Medications Dose Sig/Patricia Start Time Status Last (Trade) Ordered Route PRN Stop Time Admin Dose Reason Admin Furosemide 20 mg ONCE ONCE 08/30/18 DC 08/30/18 (Lasix) IV 18:00 18:03 08/30/18 18:01 Insulin 10 unit ONCE ONCE 08/30/18 DC 08/30/18 Aspart SC 18:00 18:52 (Novolog 08/30/18 18:01 Insulin Pen) Ondansetron 4 mg BRIDGE ORDER 08/30/18 HCl (Zofran PRN IV 18:30 Inj) NAUSEA AND/OR 08/31/18 18:29 VOMITING 650 mg ER BRIDGE 08/30/18 Acetaminophen PRN PO MILD 18:30 (Tylenol PAIN(1-3)OR 08/31/18 18:29 Tab) ELEVATED TEMP Procedures/MDM EMERGENT LABS AND DIAGNOSTIC STUDIES: Lab Results above were reviewed and interpreted by me. CBC: no anemia or evidence of infection C B MP: Hyperglycemic. No evidence of acidosis. Elevated BUN and creatinine, consistent with acute renal failure. No evidence of electrolyte abnormality albumin low, consistent with hypoalbuminemia Troponin within normal limits, not indicative of cardiac ischemia 12-lead EKG was interpreted by Rey Narayanan MD: Normal Sinus Rhythm with ventricular rate of [] beats per minute Normal axis Normal intervals inferior Q waves with lateral T wave inversions Abnormal EKG, no STEMI Radiology Results as interpreted by Radiology below were reviewed by Chelsea Narayanan MD: Chest x-ray does not show any significant abnormalities Initial Nursing notes reviewed. Previous Medical Records requested via the Electronic Health Record. EMERGENCY DEPARTMENT COURSE / MEDICAL DECISION MAKING: Patient is presenting with new onset peripheral edema. His wound appears normal without evidence of infection. However at bedside he did have oxygen saturations ranging from 93-94% with some respiratory distress. There is no evidence of acute coronary syndrome. However his labs are notable for acute elevation of BUN and creatinine, compared to baseline. He is also hyperglycemic for which insulin was given but there is no evidence of DKA. I reviewed his records and it seems he recently had an echocardiogram showing grade 1 diastolic heart failure with no systolic dysfunction. However as this peripheral edema is new in conjunction with his acute renal failure, I feel the patient requires admission for further workup. Lasix 20 mg IV was given for diuresis. Further workup will be deferred to the inpatient team. Accepting Care Team: Current data and ongoing care discussed. Time: Time of admission Primary Provider: Dr. Gutierrez Outstanding Data: none Departure Diagnosis: Primary Impression: Peripheral edema Additional Impressions: Acute renal failure Acute renal failure type: unspecified Qualified Codes: N17.9 - Acute kidney failure, unspecified Hyperglycemia Condition: LYNNE Hill MD Aug 30, 2018 15:04
[2018-08-30] MEDS ORDERED: INSULIN ASPART [NOVOLOG] 3 ML PEN SC ONE (18:00)
[2018-08-30] MEDS ORDERED: FUROSEMIDE 20 MG INJ IV ONE (18:00)
[2018-08-30] MEDS ORDERED: ONDANSETRON 4 MG INJ IV PRN (18:30)
[2018-08-30] MEDS ORDERED: ACETAMINOPHEN 325 MG TAB PO PRN (18:30)
--- NOTE | 2018-08-30 20:23 | HP ---
Date/Time of Note Date/Time of Note DATE: 08/30/18 TIME: 20:23 Assessment/Plan VTE Prophylaxis Pharmacological prophylaxis: heparin Lines/Catheters IV [facility]ter Type [facility]from [facility]): Saline Lock Assessment/Plan Hospital Course This is a 62-year-old male being admitted to the [facility] floor for: #1 dyspnea: At the current time patient does not appear to be in respiratory distress. Recent echocardiogram on 08/20/2018 showed an ejection fraction of approximately 60% with grade 1 diastolic dysfunction. Patient does report snoring at night and at times he startles himself awake. His dyspnea symptoms could likely be secondary to undiagnosed obstructive sleep apnea. This also could be contributing to his bilateral lower extremity edema. He currently does not appear to be in any acute distress., Likely encourage patient to see outpatient pulmonology for sleep study. #2 bilateral lower extremity edema: Possibly secondary to undiagnosed obstructive sleep apnea and/or grade 1 diastolic dysfunction versus amlodipine. At the current time will provide the patient with Lasix for diuresis. Patient's creatinine is also elevated at 1.7 which elevated from 1.03 from . Will obtain bilateral Doppler ultrasound to rule out DVT, will check arterial Doppler ultrasound. Will provide the patient IV diuresis. Urinalysis from did show 2+ protein. Will consult nephrology for further assistance as well. #3 acute kidney injury:Patient's creatinine is also elevated at 1.7 which elevated from 1.03 from 08/19/2018, Urinalysis from did show 2+ protein. At the current time will avoid nephrotoxic agents, he was previously on a ARB however at the current time this does not appear to be on his med recon. Given that he has lower extremity edema will provide the patient with IV diuresis with Lasix and assess the renal function in the a.m. Will check urine microalbumin, microscopic urinalysis, protein creatinine ratio, sodium urine. Renal ultrasound. #4 right thorpe wound: Not draining, the current time will obtain a x-ray of the tibia, wound care consultation, consider podiatry consultation. #5 diabetes Mellitus with hyperglycemia most recent hemoglobin A1c was 9.4. Blood sugar on admission was 460. He was given a dose of human insulin and started on his Lantus regimen. We will put the patient on insulin sliding scale. We will need to optimize patients blood glucose levels and medication regimen #6 lobular renal cortex: This was seen on previous CT, will obtain a renal ultrasound. Will consult nephrology. #7 HTN: At the current time will hold amlodipine given his lower extremity swelling, I will put him on as needed p.o. hydralazine. Once renal function improves likely start the patient on ROBYN/ARB. He was previously on ARB. #8PVD/CAD: On aspirin and plavix #9 h/o CVA colon aspirin and Plavix #10 DVT GI prophylaxis: Heparin, no GI prophylaxis indicated Further treatment strategy will be implemented as per the clinical course. Result Diagram: 08/30/18 1440 08/30/18 1440 Results 24hrs Laboratory Tests Test 08/30/18 14:40 08/30/18 18:44 08/30/18 18:47 White Blood Count 7.8 # Red Blood Count 3.73 L Hemoglobin 11.8 L Hematocrit 36.5 L Mean Corpuscular Volume 97.9 Mean Corpuscular Hemoglobin 31.6 Mean Corpuscular Hemoglobin Concent 32.3 Red Cell Distribution Width 13.2 Platelet Count 361 # Mean Platelet Volume 10.5 H Immature Granulocytes % 0.400 Neutrophils % 71.2 Lymphocytes % 19.1 Monocytes % 7.8 Eosinophils % 1.0 Basophils % 0.5 Nucleated Red Blood Cells % 0.0 Immature Granulocytes # 0.030 Neutrophils # 5.6 Lymphocytes # 1.5 Monocytes # 0.6 Eosinophils # 0.1 Basophils # 0.0 Nucleated Red Blood Cells # 0.0 Sodium Level 137 Potassium Level 4.7 Chloride Level 101 Carbon Dioxide Level 27 Anion Gap 9 Blood Urea Nitrogen 26 H Creatinine 1.76 H Est Glomerular Filtrat Rate mL/min 39 L Glucose Level 460 *H Calcium Level 8.7 Troponin I 0.040 B-Type Natriuretic Peptide 541 H Albumin 3.0 L Bedside Glucose 418 *H 414 *H HPI/ROS Admit Date/Time Admit Date/Time Hx of Present Illness Chief complaint: Bilateral lower extremity swelling times 2 days, shortness of breath This is a 63-year-old male presenting with 2 days of bilateral lower extremity swelling with increasing shortness of breath. His primary reason for coming in was because he has right lower extremity wound that he is noticed yesterday. He was concerned it was infected and wanted to come in for evaluation. His also noticed that he was swollen in his bilateral lower extremities.. He denies any associated fevers or chills. 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 No chest pain or abdominal pain. He has clear phlegm production with coughing. Shortness of breath is worse with exertion. He denies being on diuretics and denies any history of heart failure. He was recently admitted and discharged within the last 2 weeks for alcohol intoxication. Patient also was noted to have a chronic cough that is been going on for approximately [address] chest was done which showed possible bronchitis he also was noted to have some swallowing issues however the patient refused to have a formal evaluation. Allergies: NKDA Medications: See MAR ROS Const: As per HPI Eyes : No pain discharge or redness or change in visual acuity ENT: No pain, sore throat, congestion, congestion, dysphagia or discharge Respiratory: As per HPI Cardiovascular: No chest pain, palpitation, PND, or edema GI : no change in appetite, abdominal pain, nausea, vomiting, diarrhea, constipation, or change in the color his stool Genitourinary: No dysuria, hematuria, flank pain , discharge or CVA tenderness Musculoskeletal: No joint pain, back pain, neck pain, restricted range of motion in neck or joints Skin: As per HPI Neuro: No headache, dizziness, syncope, seizure, focal weakness Endocrine: No polyuria, polydipsia, temperature intolerance Psych: No hallucination, depression, anxiety or suicidal ideation PMH/Family/Social Past Medical History DM, CVA, h/o left foot OM, HTN, and alcohol abuse, chronic cough, possible obstructive sleep apnea Medications Current Medications Ondansetron HCl (Zofran Inj) 4 mg BRIDGE ORDER PRN IV NAUSEA AND/OR VOMITING; Start 08/30/18 at 18:30; Stop 08/31/18 at 18:29 Acetaminophen (Tylenol Tab) 650 mg ER BRIDGE PRN PO MILD PAIN(1-3)OR ELEVATED TEMP; Start 08/30/18 at 18:30; Stop 08/31/18 at 18:29 Aspirin (Halfprin) 81 mg DAILY PO ; Start 08/31/18 at 09:00; Status UNV Atorvastatin Calcium (Lipitor) 40 mg HS PO ; Start 08/30/18 at 21:00; Status UNV Clopidogrel Bisulfate (plaVIX) 75 mg DAILY PO ; Start 08/31/18 at 09:00; Status UNV Insulin Aspart (Novolog Insulin Pen) 15 unit WITH MEALS SC ; Start 08/31/18 at 08:00; Status UNV Insulin Glargine (Lantus) 45 units HS SC ; Start 08/30/18 at 21:00; Status UNV Miscellaneous Information 20 mg DAILY PO ; Start 08/31/18 at 09:00; Status UNV Miscellaneous Information 1 inh BID INH ; Start 08/30/18 at 21:00; Status UNV IV Flush (NS 3 ml) 3 ml PER PROTOCOL IV ; Start 08/30/18 at 20:30; Status UNV Acetaminophen (Tylenol Tab) 650 mg Q6H PRN PO PAIN LEVEL 1-3 OR FEVER; Start 08/30/18 at 20:30; Status UNV Docusate Sodium (Colace) 100 mg Q12H PRN PO CONSTIPATION; Start 08/30/18 at 20:30; Status UNV Bisacodyl (Dulcolax) 5 mg DAILY PRN PO CONSTIPATION; Start 08/30/18 at 20:30; Status UNV Heparin Sodium (Porcine) (Heparin (5000 Units/1ml)) 5,000 unit Q8 SC ; Start 08/30/18 at 22:00; Status UNV Coded Allergies: No Known Allergy (Unverified , 08/30/18) Past Surgical History Past Surgical Hx: noncontributory Family History Significant Family History: no pertinent family hx Social History Was sober for 14 months prior to his last admission on 08/18/2018 and since then has not drink alcohol. Smoking Status: Never smoker Drug Use: none Exam/Review of Systems Vital Signs Vitals Vital Signs Date Temp Pulse Resp B/P (MAP) Pulse Ox O2 O2 Flow FiO2 Time Delivery Rate 08/30/18 81 22 166/77 92 Room Air 19:00 (106) 08/30/18 98.9 11:44 Exam Exam General: Patient is currently sitting upright in bed in no acute distress HEENT: Atraumatic, normocephalic. The pupils are equal, round and reactive. Extraocular motor are intact Neck: Supple with full range of motion. No rigidity or meningismus Chest: Nontender Lungs: Clear to auscultation bilaterally no crackles rales or wheezing, nonlabored breathing Heart: Normal S1-S2, Regular rhythm and rate. No overt murmurs appreciated on auscultation Abdomen: Obese, soft , nontender, nondistended , bowel sounds are present. No guarding no rebound tenderness , No masses or organomegaly. No costovertebral temporal angle mass Extremities: 2+ pitting edema of the bilateral lower extremities up to the thorpe, diminished sensation of the bilateral feet Skin: Right lower extremity: Lower thorpe approximately 1 cm x 1 cm scab wound, not draining., Medial aspect of the right lower extremity old chronic healed wound Neurologic: Normal mental status, speech normal, cranial nerves II through XII are intact, motor and sensory are intact, Additional Comments PROCEDURE: XR Chest. CLINICAL INDICATION: Chest pain TECHNIQUE: Single frontal view of the chest was obtained. COMPARISON: CR CHEST 10/20/2016 FINDINGS: The heart is within normal limits. The thoracic aorta is calcified. The lungs are clear. There is no pleural effusion or pneumothorax. RPTAT: AA IMPRESSION: No acute disease. Calcified aorta consistent with atherosclerotic disease. .Johnny Aquino MD, MD Date Time Electronically viewed and signed by .Johnny Aquino MD, MD on 08/30/2018 15:27 .S/ CC: LYNNE GUAMAN MD [phone] Echo from 08/20/2018: Ejection fraction is visually estimated at 60 %. Tissue Doppler/Mitral Doppler indices are consistent with impaired relaxation (Stage I diastolic dysfunction). JOSÉ LILLY Aug 30, 2018 20:23
[2018-08-30] MEDS ORDERED: BISACODYL (EC) 5 MG TAB PO PRN (20:30)
[2018-08-30] MEDS ORDERED: NACL 0.9% 3 ML SYG IV SCH (20:30)
[2018-08-30] MEDS ORDERED: DOCUSATE SODIUM 100 MG CAP PO PRN (20:30)
[2018-08-30] MEDS ORDERED: DEXTROSE 50% 50 ML SYRINGE IV PRN ×2 (21:30)
[2018-08-30] MEDS ORDERED: GLUCAGON 1 MG INJ IM PRN (21:30)
[2018-08-30] MEDS ORDERED: GLUCOSE GEL 15 GRAM TUBE BUCCAL PRN (21:30)
[2018-08-30] MEDS ORDERED: GLUCOSE GEL 15 GRAM TUBE PO PRN ×2 (21:30)
[2018-08-30 22:16] VITALS: BP 149/82; PULSE 81; RESP 19
[2018-08-30] MEDS: INSULIN GLARGINE [LANTus] (100 UNITS/ML) SYG SC SCH (22:54)
[2018-08-30] MEDS: INSULIN ASPART [NOVOLOG] 3 ML PEN SC SCH (22:54)
[2018-08-30] MEDS: HEPARIN 5,000 UNIT/1 ML VIAL SC SCH (22:55)
[2018-08-30] MEDS: ATORVASTATIN 40 MG TAB PO SCH (22:56)
[2018-08-30 23:14] VITALS: Ht 167.6 cm; Wt 88.5 kg
[2018-08-31] MEDS: ACETAMINOPHEN 325 MG TAB PO PRN ×2 (00:17→10:42)
[2018-08-31 02:00] VITALS: BP 152/68; PULSE 81; RESP 18
[2018-08-31] MEDS: ACCU-CHEK XX SCH (02:32)
[2018-08-31] MEDS: PANTOPRAZOLE (EC) 40 MG TAB PO SCH (05:14)
[2018-08-31] MEDS: BENZONATATE 100 MG CAP PO PRN ×2 (05:18→22:14)
[2018-08-31] MEDS: HEPARIN 5,000 UNIT/1 ML VIAL SC SCH ×3 (06:19→21:43)
[2018-08-31 07:35] VITALS: BP 115/56; PULSE 74; RESP 16
[2018-08-31] MEDS: INSULIN ASPART [NOVOLOG] 3 ML PEN SC SCH ×7 (08:11→21:00)
[2018-08-31] MEDS: CLOPIDOGREL 75 MG TAB PO SCH (08:12)
[2018-08-31] MEDS: ASPIRIN (EC) 81 MG TAB PO SCH (08:12)
--- NOTE | 2018-08-31 08:37 | CONS ---
DATE OF ADMISSION: 08/30/2018 DATE OF CONSULTATION: 08/31/2018 REASON FOR CONSULTATION: Acute kidney injury. PHYSICIAN REQUESTING CONSULTATION: Dr. Lilly. HISTORY OF PRESENT ILLNESS: This is a 62-year-old male with a past medical history of diabetes, hist ory of hypertension, history of chronic kidney disease with a baseline creatinine of around 1.1 to 1. 2 mg/dL, who presents to [facility] with lower extremity swelling x2 days and short ness of breath. The patient says that over the past several days, he has noted increased edema in lo wer extremities as well as shortness of breath, dyspnea on exertion. As a result, he came into the e mergency room. Upon arrival, the patient had laboratory data drawn, which showed elevated BUN 27, cr eatinine 1.70 and a glucose of 460. The patient also had a chest x-ray, which showed no acute diseas e. In the emergency room, the patient was given diuretic therapy and admitted to med/surg for evalua tion. In terms of patient's renal history, the patient has underlying chronic kidney disease. The patient has longstanding diabetes. He denies any previous history of acute kidney injury. The patient is un aware of having any abnormal renal function despite history of elevated creatinine. The patient meeta es any frothy urine, any hemoptysis, hematemesis or hematochezia. PAST MEDICAL HISTORY: As stated above, history of chronic kidney disease, diabetes, hypertension. FAMILY HISTORY: Noncontributory. SOCIAL HISTORY: He does not drink, smoke or do drugs. MEDICATIONS: The patient's medications have been reviewed. REVIEW OF SYSTEMS: A 14-point review of systems was conducted. Pertinent positives stated in HPI, o therwise negative. PHYSICAL EXAMINATION: VITAL SIGNS: Blood pressure is 152/68, respirations 18, pulse 81, temperature 98.8. HEENT: Head is normocephalic. NECK: Supple. HEART: Regular rate. LUNGS: Show diminished breath sounds at the base. ABDOMEN: Soft, nontender to palpation without rebound or guarding. EXTREMITIES: Negative for clubbing, cyanosis, no edema. DERMATOLOGIC: No rashes. MUSCULOSKELETAL: No joint effusion. NEUROLOGIC: No change in exam. LABORATORY DATA: Shows sodium 141, potassium 4.2, BUN 25, creatinine 1.46. White count 6.9, hemoglo bin 9.5, hematocrit 35.5, platelet count 367. IMAGING STUDIES: Reviewed. ASSESSMENT AND PLAN: This is a 62-year-old male who presents with: 1. Nonoliguric acute kidney injury on top of chronic kidney disease with previous baseline creatinin e of 0.9 to 1.0 mg/dL. Etiology of current acute kidney injury is unclear, possible hemodynamics. Q uestionable tubular injury. Plan is to do a full evaluation. We will check UA with microanalysis, c heck urine electrolytes, check renal ultrasound. Renal function has improved after being given diure tic therapy. We would also consider checking 2D echo to rule out CHF, as cardiorenal syndrome may be a component. Otherwise, continue supportive care, renally dose all medicines, and avoid nephrotoxin s. 2. Volume overload. Etiology may be secondary to possible nephrotic syndrome from diabetes, questio nable congestive heart failure. Workup ongoing. Check a 2D echo. We will quantify the patient's pr oteinuria. Continue gentle diuretic therapy and monitor. 3. Anemia. Continue to monitor hemoglobin and hematocrit levels. 4. Mineral bone disorder, monitor calcium and phosphorus levels. 5. Diabetes. Continue current insulin management. 6. Hypertension. Continue current blood pressure regimen. 7. Dyspnea, etiology is unclear. Questionable nephrotic syndrome as stated above, questionable soo estive heart failure exacerbation. Continue to monitor. Continue diuretic regimen, consider a CT sc an of chest if no clinical improvement. 8. Hypertension. Continue current blood pressure regimen. Agree with holding amlodipine. Caution with hydralazine, which can also cause the lower extremity edema. Thank you, Dr. Lilly, for this very interesting consult. It will be a pleasure to follow the patie nt with you throughout the hospital course. Dictated By: KIERAN KEARNEY DO NR/NTS Conf#: [id number] DID#: [id number] CC: JOSÉ LILLY MD; CALI PRADO MD;*EndCC*
[2018-08-31] MEDS ORDERED: NON-FORMULARY/PATIENT OWN MED (Omeprazole* 20 MG) PO SCH (09:00)
[2018-08-31] MEDS: FUROSEMIDE 40 MG INJ IV SCH (09:23)
[2018-08-31] MEDS: FLUTICASONE/VILANTEROL 100-25 INH SCH (10:43)
[2018-08-31 14:25] VITALS: BP 145/69; PULSE 72; RESP 16
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
--- NOTE | 2018-08-31 16:39 | PN ---
Date/Time of Note Date/Time of Note DATE: 08/31/18 TIME: 16:36 Assessment/Plan VTE Prophylaxis Risk score (from Ns)>0 risk: 4 SCD applied (from Ns): Yes SCD contraindicated: other Pharmacological prophylaxis: heparin Lines/Catheters IV Catheter Type (from [facility]): [place] [facility] Urinary Cath still in place: No Assessment/Plan Hospital Course SUBJECTIVE: Continues to complain of cough. Denies any chest pain or dyspnea. OBJECTIVE: Physical Exam General: Obese, 62 year-old male lying in bed in no apparent distress. HEENT: Normocephalic, atraumatic. Eyes: Anicteric sclerae, conjunctivae clear. ENT: Nasal septum midline, oral mucosa moist. Neck: Short and obese. Respiratory: Bilaterally diminished breath sounds. No use of accessory muscles of respiration. No adventitious breath sounds. Cardiovascular: S1, S2 heard. Regular rate and rhythm. Abdomen: Soft, nontender, and nondistended. Bowel sounds positive in all 4 quadrants. Genitourinary: Deferred. Extremities: No cyanosis, no clubbing. Bilateral lower extremity 2-3+ pitting edema. Neurologic: Cranial nerves II through XII grossly intact. The patient is awake, alert, and oriented. Labs & Vitals per chart ASSESSMENT & PLAN This is a 62-year-old male with comorbidities including diabetes mellitus, left foot osteomyelitis, hypertension, obesity, chronic kidney disease, and peripheral artery disease. The patient came to the emergency room with chief c omplaint of bilateral lower extremity edema and dyspnea. The patient was found to have acute on chronic kidney injury. The patient's urinalysis was showing significant proteinuria. The patient was admitted to inpatient setting for further treatment and evaluation. 1. Acute on chronic kidney disease. -Etiology unclear. -Being followed by nephrology. -Use nephrotoxic drugs with caution. 2. Volume overload. -Possible nephrotic syndrome. -Gentle diuretic therapy. 3. Diabetes mellitus type 2. -Continue sliding scale insulin along with pre-meal insulin and basal insulin. 4. Peripheral artery disease. -Status post left tibioperoneal trunk balloon angioplasty, left femoral popliteal artery stenting, and left femoral popliteal artery balloon angioplasty on 03/22/2017. -Continue antiplatelet therapy. 5. Chronic cough. -6.5 mm micronodule in the anteromedial right upper lobe evident on CT chest done on 03/15/2017. -Repeat chest CT scan without contrast. -Continue antitussives. 6. Hypertension. -Continue antihypertensives. 7. Normocytic, normochromic anemia. -Most probably anemia chronic kidney disease. -Monitor H&H closely. 8. Obesity. -BMI 31.5 kg/m -Weight reduction advised. 9. Right lower extremity wound on the dorsal surface. -Podiatry consult. 10. Fluids, electrolytes, and nutrition. -Renal diet. 11. DVT prophylaxis. -Subcutaneous heparin. 12. Plan. -Continue diuresis. -Await clinical improvement. The patient was seen in collaboration with Dr. Gutierrez. Result Diagram: 08/31/18 0441 08/31/18 0441 Results 24hrs Laboratory Tests Test 08/30/18 18:44 08/30/18 18:47 08/30/18 22:06 08/30/18 22:31 Bedside Glucose 418 *H 414 *H 294 H Urine Opiates Screen Negative Urine Barbiturates Negative Urine Amphetamines Negative Screen Urine Positive Benzodiazepines Screen Urine Cocaine Screen Negative Urine Cannabinoids Negative Ethyl Alcohol Level < 10.0 H Test 08/31/18 02:15 08/31/18 04:41 08/31/18 08:07 08/31/18 08:50 Bedside Glucose 231 H 192 White Blood Count 6.9 Red Blood Count 3.64 L Hemoglobin 11.5 L Hematocrit 35.5 L Mean Corpuscular 97.5 Volume Mean Corpuscular 31.6 Hemoglobin Mean Corpuscular 32.4 Hemoglobin Concent Red Cell 13.1 Distribution Width Platelet Count 367 Mean Platelet Volume 10.3 Immature 0.400 Granulocytes % Neutrophils % 59.3 Lymphocytes % 28.5 Monocytes % 9.0 Eosinophils % 1.9 Basophils % 0.9 Nucleated Red Blood 0.0 Cells % Immature 0.030 Granulocytes # Neutrophils # 4.1 Lymphocytes # 2.0 Monocytes # 0.6 Eosinophils # 0.1 Basophils # 0.1 Nucleated Red Blood 0.0 Cells # Sodium Level 141 Potassium Level 4.2 Chloride Level 102 Carbon Dioxide Level 30 Anion Gap 9 Blood Urea Nitrogen 25 H Creatinine 1.46 H Est Glomerular 49 L Filtrat Rate mL/min Glucose Level 203 # Calcium Level 9.1 Magnesium Level 1.9 Total Bilirubin 0.0 L Direct Bilirubin 0.00 Indirect Bilirubin 0.0 Aspartate Amino 24 Transf (AST/SGOT) Alanine 25 Aminotransferase (AL T/SGPT) Alkaline Phosphatase 102 Total Protein 6.2 Albumin 3.1 L Globulin 3.10 Albumin/Globulin 1.00 Ratio Urine Color STRAW Urine Clarity CLEAR Urine pH 7.0 Urine Specific 1.013 [place] Urine Ketones NEGATIVE Urine Nitrite NEGATIVE Urine Bilirubin NEGATIVE Urine Urobilinogen NEGATIVE Urine Leukocyte NEGATIVE Esterase Urine Microscopic 0 RBC Urine Microscopic 0 WBC Urine Bacteria FEW A Urine Hemoglobin NEGATIVE Urine Random 54.55 Creatinine Urine Random Sodium 129 H Urine Glucose 2+ H Urine Total Protein 482.0 H Test 08/31/18 11:53 Bedside Glucose 197 Exam/Review of Systems Vital Signs Vitals Vital Signs Date Temp Pulse Resp B/P (MAP) Pulse Ox O2 O2 Flow FiO2 Time Delivery Rate 08/31/18 98.4 72 16 145/69 93 Room Air 14:25 (94) Medications Medications Current Medications Aspirin (Halfprin) 81 mg DAILY PO Last administered on 08/31/18 08:12; Admin Dose 81 MG; Start 08/31/18 at 09:00 Atorvastatin Calcium (Lipitor) 40 mg HS PO Last administered on 08/30/18 22:56; Admin Dose 40 MG; Start 08/30/18 at 21:00 Clopidogrel Bisulfate (plaVIX) 75 mg DAILY PO Last administered on 08/31/18 08 :12; Admin Dose 75 MG; Start 08/31/18 at 09:00 Insulin Aspart (Novolog Insulin Pen) 15 unit WITH MEALS SC Last administered on 08/31/18 11:57; Admin Dose 15 UNIT; Start 08/31/18 at 07:35 Insulin Glargine (Lantus) 45 units HS SC Last administered on 08/30/18 22:54; Admin Dose 45 UNITS; Start 08/30/18 at 22:00 Fluticasone/ Vilanterol (Breo Ellipta 100-25 Mcg Inh) 1 inh DAILY INH Last administered on 08/31/18 10:43; Admin Dose 1 INH; Start 08/31/18 at 10:30 IV Flush (NS 3 ml) 3 ml PER PROTOCOL IV ; Start 08/30/18 at 20:30 Acetaminophen (Tylenol Tab) 650 mg Q6H PRN PO PAIN LEVEL 1-3 OR FEVER Last administered on 08/31/18 10:42; Admin Dose 650 MG; Start 08/30/18 at 20:30 Docusate Sodium (Colace) 100 mg Q12H PRN PO CONSTIPATION; Start 08/30/18 at 20:30 Bisacodyl (Dulcolax) 5 mg DAILY PRN PO CONSTIPATION; Start 08/30/18 at 20:30 Heparin Sodium (Porcine) (Heparin (5000 Units/1ml)) 5,000 unit Q8 SC Last administered on 08/31/18at 14:13; Admin Dose 5,000 UNIT; Start 08/30/18 at 22:00 Diagnostic Test (Pha) (Accu-Chek) 1 ea 02 XX Last administered on 08/31/18at 02:32; Admin Dose 1 EA; Start 08/31/18 at 02:00 Insulin Aspart (Novolog Insulin Pen) NOVOLOG *MILD* ALGORITHM WITH MEALS BEDTIME SC Last administered on 08/31/18at 11:58; Admin Dose 2 UNIT; Start 08/30/18 at 22:00 Pantoprazole (Protonix Tab) 40 mg DAILY@06 PO Last administered on 08/31/18at 05:14; Admin Dose 40 MG; Start 08/31/18 at 06:00 Miscellaneous Information 1 ea NOTE XX ; Start 08/30/18 at 21:30 Glucose (Glutose) 15 gm Q15M PRN PO DECREASED GLUCOSE; Start 08/30/18 at 21:30 Glucose (Glutose) 22.5 gm Q15M PRN PO DECREASED GLUCOSE; Start 08/30/18 at 21:30 Dextrose (D50w Syringe) 25 ml Q15M PRN IV DECREASED GLUCOSE; Start 08/30/18 at 21:30 Dextrose (D50w Syringe) 50 ml Q15M PRN IV DECREASED GLUCOSE; Start 08/30/18 at 21:30 Glucagon (Glucagen) 1 mg Q15M PRN IM DECREASED GLUCOSE; Start 08/30/18 at 21:30 Glucose (Glutose) 15 gm Q15M PRN BUCCAL DECREASED GLUCOSE; Start 08/30/18 at 21:30 Hydralazine HCl (Apresoline) 10 mg Q6 PRN PO ELEVATED SYSTOLIC BP; Start 08/31/18 at 03:00 Influenza Virus Vaccine Quadrival (Fluzone) 0.5 ml ONCE ONCE IM* ; Start 09/01/18 at 10:00; Stop 09/01/18 at 10:01 Benzonatate (Tessalon) 200 mg TID PRN PO COUGH Last administered on 08/31/18at 05:18; Admin Dose 200 MG; Start 08/31/18 at 04:30 Furosemide (Lasix) 40 mg DAILY IV Last administered on 08/31/18at 09:23; Admin D ose 40 MG; Start 08/31/18 at 09:00 MALLORY AMOS NP Aug 31, 2018 16:39
[2018-08-31 20:00] VITALS: BP 136/78; PULSE 68; RESP 17
[2018-08-31] MEDS: ATORVASTATIN 40 MG TAB PO SCH (20:35)
[2018-08-31] MEDS: INSULIN GLARGINE [LANTus] (100 UNITS/ML) SYG SC SCH (20:37)
[2018-09-01 02:00] VITALS: BP 142/69; PULSE 72; RESP 16
[2018-09-01] MEDS: ACCU-CHEK XX SCH (02:00)
[2018-09-01] MEDS: HEPARIN 5,000 UNIT/1 ML VIAL SC SCH ×3 (05:20→21:49)
[2018-09-01] MEDS: PANTOPRAZOLE (EC) 40 MG TAB PO SCH (05:20)
[2018-09-01] MEDS: BENZONATATE 100 MG CAP PO PRN ×2 (05:25→14:21)
[2018-09-01] MEDS: INSULIN ASPART [NOVOLOG] 3 ML PEN SC SCH ×7 (08:00→21:48)
[2018-09-01] MEDS: FUROSEMIDE 40 MG INJ IV SCH (08:05)
[2018-09-01] MEDS: CLOPIDOGREL 75 MG TAB PO SCH (08:05)
[2018-09-01] MEDS: ASPIRIN (EC) 81 MG TAB PO SCH (08:06)
[2018-09-01] MEDS: FLUTICASONE/VILANTEROL 100-25 INH SCH (08:06)
[2018-09-01 08:17] VITALS: BP 158/74; PULSE 81; RESP 20
--- NOTE | 2018-09-01 09:23 | PN ---
DATE: 09/01/2018 SUBJECTIVE: The patient is stable, no events overnight. No fevers, chills, nausea, vomiting. OBJECTIVE: VITAL SIGNS: Blood pressure is 142/69, respiration 16, pulse 72, temperature 98.3. HEENT: Head is normocephalic. NECK: Supple. HEART: Regular rate. LUNGS: Show diminished breath sounds at the base. ABDOMEN: Soft, nontender to palpation without rebound or guarding. EXTREMITIES: Negative for clubbing, cyanosis. Positive edema. DERMATOLOGIC: No rashes. MUSCULOSKELETAL: No joint effusion. NEUROLOGIC: No change in exam. MEDICATIONS: The patient's medications have been reviewed. LABORATORY DATA: Shows a protein/creatinine ratio of 8.92 mg per gram of creatinine. BUN 22, creati nine 1.26. White count 7.0, hemoglobin 12.0, and platelet count 394. Renal ultrasound was reviewed. ASSESSMENT AND PLAN: 1. Nonoliguric acute kidney injury on top of chronic kidney disease with previous baseline creatinin e of 0.9 to 1.0 mg/dL. Etiology secondary to hemodynamics, questionable tubular injury. Renal funct ion has improved with diuretic therapy. At this point, continue current treatment plan, supportive c are, renally dose all meds. 2. Nephrotic syndrome. Etiology is likely secondary to diabetic nephropathy. The patient has prote inuria of greater than 8 grams per gram of creatinine. Plan is to rule out other etiologies by check ing serologies. Will continue diuretic regimen. The patient would benefit from ROBYN inhibitor/ARB on ce renal function is stabilized. Would otherwise continue good glycemic control. 3. Chronic kidney disease, likely from diabetic nephropathy and nephrotic syndrome as stated above. Continue current treatment plan. 4. Anemia. Continue to monitor hemoglobin and hematocrit levels. 5. Mineral bone disorder, monitor calcium and phosphorus levels. 6. Diabetes. Continue current insulin regimen. 7. Hypertension. Continue current blood pressure regimen. 8. Shortness of breath, improved. Continue to monitor. Dictated By: KIERAN CAMARENA/NTS Conf#: [id number] DID#: [id number] CC: CALI PRADO MD;*EndCC*
--- NOTE | 2018-09-01 11:38 | PN ---
Date/Time of Note Date/Time of Note DATE: 09/01/18 TIME: 11:36 Assessment/Plan VTE Prophylaxis Risk score (from Ns)>0 risk: 5 SCD applied (from Ns): No SCD contraindicated: other Pharmacological prophylaxis: heparin Lines/Catheters IV Catheter Type (from [facility]): Saline Lock Urinary Cath still in place: No Assessment/Plan Hospital Course SUBJECTIVE: Denies any chest pain or dyspnea. OBJECTIVE: Physical Exam General: Obese, 62 year-old male lying in bed in no apparent distress. HEENT: Normocephalic, atraumatic. Eyes: Anicteric sclerae, conjunctivae clear. ENT: Nasal septum midline, oral mucosa moist. Neck: Short and obese. Respiratory: Bilaterally diminished breath sounds. No use of accessory muscles of respiration. No adventitious breath sounds. Cardiovascular: S1, S2 heard. Regular rate and rhythm. Abdomen: Soft, nontender, and nondistended. Bowel sounds positive in all 4 quadrants. Genitourinary: Deferred. Extremities: No cyanosis, no clubbing. Bilateral lower extremity 2+ pitting edema. Neurologic: Cranial nerves II through XII grossly intact. The patient is awake, alert, and oriented. Labs & Vitals per chart ASSESSMENT & PLAN This is a 62-year-old male with comorbidities including diabetes mellitus, left foot osteomyelitis, hypertension, obesity, chronic kidney disease, and peripheral artery disease. The patient came to the emergency room with chief complaint of bilateral lower extremity edema and dyspnea. The patient was found to have acute on chronic kidney injury. The patient's urinalysis was showing significant proteinuria. The patient was admitted to inpatient setting for f urther treatment and evaluation. 1. Acute on chronic kidney disease. -Etiology unclear. -Being followed by nephrology. -Use nephrotoxic drugs with caution. 2. Nephrotic syndrome. -Most probably secondary to underlying diabetic nephropathy. -Gentle diuretic therapy. -Being followed by nephrology. 3. Diabetes mellitus type 2. -Continue sliding scale insulin along with pre-meal insulin and basal insulin. -A1C 10.2. 4. Peripheral artery disease. -Status post left tibioperoneal trunk balloon angioplasty, left femoral popliteal artery stenting, and left femoral popliteal artery balloon angioplasty on 03/22/2017. -Continue antiplatelet therapy. 5. Chronic cough. -6.5 mm micronodule in the anteromedial right upper lobe evident on CT chest done on 03/15/2017. -Repeat chest CT scan without contrast on 08/31/2018 showing no significant change in nodule size. -Continue antitussives. 6. Hypertension. -Continue antihypertensives. 7. Normocytic, normochromic anemia. -Most probably anemia chronic kidney disease. -Monitor H&H closely. 8. Obesity. -BMI 31.5 kg/m -Weight reduction advised. 9. Right lower extremity wound on the dorsal surface. -S/P podiatry consult. -Continue local wound care. 10. Fluids, electrolytes, and nutrition. -Renal diet. 11. DVT prophylaxis. -Subcutaneous heparin. 12. Plan. -Continue diuresis. -Await clinical improvement. The patient was seen in collaboration with Dr. Gutierrez. Result Diagram: 09/01/18 0507 09/01/18 0507 Results 24hrs Laboratory Tests Test 08/31/18 11:53 08/31/18 17:32 08/31/18 20:33 09/01/18 05:07 Bedside Glucose 197 183 149 White Blood Count 7.0 Red Blood Count 3.82 L Hemoglobin 12.0 L Hematocrit 37.2 L Mean Corpuscular 97.4 Volume Mean Corpuscular 31.4 Hemoglobin Mean Corpuscular 32.3 Hemoglobin Concent Red Cell 13.1 Distribution Width Platelet Count 394 Mean Platelet Volume 9.9 Immature 0.600 H Granulocytes % Neutrophils % 59.3 Lymphocytes % 28.5 Monocytes % 9.0 Eosinophils % 1.7 Basophils % 0.9 Nucleated Red Blood 0.0 Cells % Immature 0.040 H Granulocytes # Neutrophils # 4.1 Lymphocytes # 2.0 Monocytes # 0.6 Eosinophils # 0.1 Basophils # 0.1 Nucleated Red Blood 0.0 Cells # Sodium Level 141 Potassium Level 4.1 Chloride Level 103 Carbon Dioxide Level 31 Anion Gap 7 Blood Urea Nitrogen 22 H Creatinine 1.27 H Est Glomerular 57 L Filtrat Rate mL/min Glucose Level 182 Hemoglobin A1c 10.2 H Calcium Level 9.1 Phosphorus Level 5.5 H Magnesium Level 1.9 Triglycerides Level 297 H Cholesterol Level 166 LDL Cholesterol, 73 Calculated HDL Cholesterol 34 Cholesterol/HDL 4.8 Ratio Thyroid Stimulating 6.410 H Hormone (TSH) Free Thyroxine 0.99 Test 09/01/18 07:58 09/01/18 08:59 Bedside Glucose 156 Complement C3 142 Complement C4 21 Hepatitis B Surface NEGATIVE Antigen Hepatitis B Core Pending Total Antibody Hepatitis C Antibody Pending Exam/Review of Systems Vital Signs Vitals Vital Signs Date Temp Pulse Resp B/P (MAP) Pulse Ox O2 O2 Flow FiO2 Time Delivery Rate 09/01/18 98.2 81 20 158/74 93 08:17 (102) 08/31/18 Room Air 14:25 Intake and Output 08/31/18 08/31/18 09/01/18 1515:00 23:00 07:00 IntakeIntake Total 300 ml 250 ml 560 ml OutputOutput Total 300 ml BalanceBalance 300 ml 250 ml 260 ml Medications Medications Current Medications Aspirin (Halfprin) 81 mg DAILY PO Last administered on 09/01/18 08:06; Admin Dose 81 MG; Start 08/31/18 at 09:00 Atorvastatin Calcium (Lipitor) 40 mg HS PO Last administered on 08/31/18at 20:35; Admin Dose 40 MG; Start 08/30/18 at 21:00 Clopidogrel Bisulfate (plaVIX) 75 mg DAILY PO Last administered on 09/01/18 08:05; Admin Dose 75 MG; Start 08/31/18 at 09:00 Insulin Aspart (Novolog Insulin Pen) 15 unit WITH MEALS SC Last administered on 09/01/18 08:00; Admin Dose 15 UNIT; Start 08/31/18 at 07:35 Insulin Glargine (Lantus) 45 units HS SC Last administered on 08/31/18at 20:37; Admin Dose 45 UNITS; Start 08/30/18 at 22:00 Fluticasone/ Vilanterol (Breo Ellipta 100-25 Mcg Inh) 1 inh DAILY INH Last administered on 09/01/18at 08:06; Admin Dose 1 INH; Start 08/31/18 at 10:30 IV Flush (NS 3 ml) 3 ml PER PROTOCOL IV ; Start 08/30/18 at 20:30 Acetaminophen (Tylenol Tab) 650 mg Q6H PRN PO PAIN LEVEL 1-3 OR FEVER Last administered on 08/31/18at 10:42; Admin Dose 650 MG; Start 08/30/18 at 20:30 Docusate Sodium (Colace) 100 mg Q12H PRN PO CONSTIPATION; Start 08/30/18 at 20:30 Bisacodyl (Dulcolax) 5 mg DAILY PRN PO CONSTIPATION; Start 08/30/18 at 20:30 Heparin Sodium (Porcine) (Heparin (5000 Units/1ml)) 5,000 unit Q8 SC Last administered on 09/01/18at 05:20; Admin Dose 5,000 UNIT; Start 08/30/18 at 22:00 Diagnostic Test (Pha) (Accu-Chek) 1 ea 02 XX Last administered on 08/31/18at 02:32; Admin Dose 1 EA; Start 08/31/18 at 02:00 Insulin Aspart (Novolog Insulin Pen) NOVOLOG *MILD* ALGORITHM WITH MEALS BEDTIME SC Last administered on 09/01/18at 08:01; Admin Dose 1 UNIT; Start 07/08 at 22:00 Pantoprazole (Protonix Tab) 40 mg DAILY@06 PO Last administered on 09/01/18at 05:20; Admin Dose 40 MG; Start 08/31/18 at 06:00 Miscellaneous Information 1 ea NOTE XX ; Start 08/30/18 at 21:30 Glucose (Glutose) 15 gm Q15M PRN PO DECREASED GLUCOSE; Start 08/30/18 at 21:30 Glucose (Glutose) 22.5 gm Q15M PRN PO DECREASED GLUCOSE; Start 08/30/18 at 21:30 Dextrose (D50w Syringe) 25 ml Q15M PRN IV DECREASED GLUCOSE; Start 08/30/18 at 21:30 Dextrose (D50w Syringe) 50 ml Q15M PRN IV DECREASED GLUCOSE; Start 08/30/18 at 21:30 Glucagon (Glucagen) 1 mg Q15M PRN IM DECREASED GLUCOSE; Start 08/30/18 at 21:30 Glucose (Glutose) 15 gm Q15M PRN BUCCAL DECREASED GLUCOSE; Start 08/30/18 at 21:30 Hydralazine HCl (Apresoline) 10 mg Q6 PRN PO ELEVATED SYSTOLIC BP; Start 08/31/18 at 03:00 Benzonatate (Tessalon) 200 mg TID PRN PO COUGH Last administered on 09/01/18at 05:25; Admin Dose 200 MG; Start 08/31/18 at 04:30 Furosemide (Lasix) 40 mg DAILY IV Last administered on 09/01/18at 08:05; Admin Dose 40 MG; Start 08/31/18 at 09:00 MALLORY AMOS NP Sep 01, 2018 11:38
[2018-09-01 14:57] VITALS: BP 149/70; PULSE 79; RESP 20
[2018-09-01 20:03] VITALS: BP 130/77; PULSE 77; RESP 20
[2018-09-01] MEDS: ATORVASTATIN 40 MG TAB PO SCH (21:45)
[2018-09-01] MEDS: INSULIN GLARGINE [LANTus] (100 UNITS/ML) SYG SC SCH (21:47)
[2018-09-02] MEDS: ACCU-CHEK XX SCH (01:34)
[2018-09-02 02:48] VITALS: BP 150/70; PULSE 77; RESP 18
[2018-09-02] MEDS: PANTOPRAZOLE (EC) 40 MG TAB PO SCH (05:46)
[2018-09-02] MEDS: HEPARIN 5,000 UNIT/1 ML VIAL SC SCH ×2 (05:48→14:20)
[2018-09-02] MEDS: INSULIN ASPART [NOVOLOG] 3 ML PEN SC SCH ×4 (08:03→12:32)
[2018-09-02] MEDS: CLOPIDOGREL 75 MG TAB PO SCH (08:33)
[2018-09-02] MEDS: FLUTICASONE/VILANTEROL 100-25 INH SCH (08:33)
[2018-09-02] MEDS: ACETAMINOPHEN 325 MG TAB PO PRN (08:33)
[2018-09-02] MEDS: ASPIRIN (EC) 81 MG TAB PO SCH (08:33)
--- NOTE | 2018-09-02 08:33 | PN ---
DATE: 09/02/2018 SUBJECTIVE: The patient is stable, no events overnight. OBJECTIVE: VITAL SIGNS: Blood pressure is 150/70, respirations 18, pulse 77, temperature 98.3. HEENT: Head is normocephalic. NECK: Supple. HEART: Regular rate. LUNGS: Show diminished breath sounds at the base. ABDOMEN: Soft, nontender to palpation without rebound or guarding. EXTREMITIES: Negative for clubbing, cyanosis. Positive edema, improving. DERMATOLOGIC: No rashes. MUSCULOSKELETAL: No joint effusion. NEUROLOGIC: No change in exam. MEDICATIONS: Reviewed. LABORATORY DATA: Shows sodium 140, potassium 4.4, BUN 21, creatinine 1.25. White count 6.6, hemoglo bin 10.3, platelet count is 367. ASSESSMENT AND PLAN: 1. Nonoliguric acute kidney injury on top of chronic kidney disease with previous baseline creatinin e of 0.9 to 1.0 mg/dL. Etiology of acute kidney injury is secondary to hemodynamics, questionable tu bular injury. Renal function is slowly improving. Continue current treatment plan, supportive care, renally dose all medicines. 2. Chronic kidney disease likely secondary to diabetic nephropathy with underlying nephrotic syndrom e. The patient has significant proteinuria of greater than 8 grams per gram of creatinine. The gabbi ent is also hypoalbuminemic, edematous, consistent with nephrotic syndrome. The possibility of prima ry glomerulopathy is a consideration, although suspicion is low as the patient has underlying nephrot ic syndrome, most likely due to diabetes. A serological workup is pending and ongoing. At this poin t, we will continue current medical management. We would resume ROBYN inhibitor or ARB once renal func tion has stabilized. 3. Anemia. Continue to monitor hemoglobin and hematocrit levels. 4. Mineral bone disorder, monitor calcium and phosphorus levels. 5. Volume overload secondary to chronic kidney disease, nephrotic syndrome. Continue diuretic regim en. 6. Diabetes. Continue current insulin regimen. 7. Hypertension. Continue current blood pressure regimen. 8. Shortness of breath, improved. 9. Peripheral arterial disease. Continue medical management. 10. Right lower extremity wound. Continue wound care. Follow up with podiatry. Dictated By: KIERAN CAMARENA/SOFIYA Conf#: [id number] DID#: [id number] CC: CALI PRADO MD;*[facility]*
[2018-09-02] MEDS: FUROSEMIDE 40 MG INJ IV SCH (08:34)
[2018-09-02 08:39] VITALS: BP 136/66; PULSE 69; RESP 18
[2018-09-02 15:31] VITALS: BP 167/82; PULSE 86; RESP 18
--- NOTE | 2018-09-02 16:12 | PDOCDIS ---
Discharge Instructions CONDITION Pep[place]4Ke Patient Condition: [id number] Stable HOME CARE INSTRUCTIONS: [id number] Special Diet: Pbvba6x renal ACTIVITY: [id number] Activity Restrictions: [id number] Slowly Increase Activity Rest between Activity Avoid heavy lifting FOLLOW UP/APPOINTMENTS Follow-up Plan Please remember to elevate your legs when you are at home on the sulfa or in bed. Please take your medications as prescribed. Please see your doctor in the clinic in the next 1 week. FOX JAVED. Sep 02, 2018 16:12
[2018-09-02] MEDS ORDERED: FURO20TA3 PO (16:13)
--- NOTE | 2018-09-02 16:18 | DS ---
Date/Time of Note Date/Time of Note DATE: 09/02/18 TIME: 16:14 Discharge Summary Admission/Discharge Info Admit Date/Time Aug 31, 2018 at 10:04 Discharge Date/Time Discharge Diagnosis #1 dyspnea: At the current time patient does not appear to be in respiratory distress. Recent echocardiogram on 08/20/2018 showed an ejection fraction of approximately 60% with grade 1 diastolic dysfunction. Patient does report snoring at night and at times he startles himself awake. His dyspnea symptoms could likely be secondary to undiagnosed obstructive sleep apnea. This also could be contributing to his bilateral lower extremity edema. He currently does not appear to be in any acute distress., Likely encourage patient to see outpatient pulmonology for sleep study. #2 bilateral lower extremity edema: Resolving now, possibly secondary to undiagnosed obstructive sleep apnea and/or grade 1 diastolic dysfunction versus amlodipine. #3 acute kidney injury: Resolving now, patient's creatinine was elevated at 1.7 which elevated from 1.03 from 08/19/2018, Urinalysis from did show 2+ protein. At the current time will avoid nephrotoxic agents, he was previously on a ARB however at the current time this does not appear to be on his med recon. #4 right thorpe wound: Status post podiatry consultation, improved #5 diabetes Mellitus with hyperglycemia -resolving now, hemoglobin A1c was 10.2. #6 lobular renal cortex: This was seen on previous CT, seen by renal team during this hospital stay #7 HTN: Stable #8PVD/CAD: On aspirin and plavix #9 h/o CVA colon aspirin and Plavix Patient Condition: Stable Hx of Present Illness 63-year-old male presenting with 2 days of bilateral lower extremity swelling with increasing shortness of breath. His primary reason for coming in was because he has right lower extremity wound that he is noticed yesterday. He was concerned it was infected and wanted to come in for evaluation. His also noticed that he was swollen in his bilateral lower extremities.. He denies any associated fevers or chills. 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 No chest pain or abdominal pain. He has clear phlegm production with coughing. Shortness of breath is worse with exertion. He denies being on diuretics and denies any history of heart failure. He was recently admitted and discharged within the last 2 weeks for alcohol intoxication. Patient also was noted to have a chronic cough that is been going on for approximately [address] chest was done which showed possible bronchitis he also was noted to have some swallowing issues however the patient refused to have a formal evaluation. Hospital Course So patient was admitted, seen by renal team and podiatry team during this hospital stay. Podiatry team recommend regular wound care for his lower extremity findings. Patient's white blood cell count was normal, no fevers. Regarding his lower extremity edema his calcium channel spencer was held on admission. He was found slightly elevated creatinine levels as well. His urine output was adequate however, and he was found with signs of nephrotic disease, likely secondary to his diabetes. He was placed on low-dose IV Lasix, urine output again was adequate. His creatinine levels were trending down by the time of discharge. He was able to ambulate, tolerated p.o. diet. His A1c was found to be 10.2. His lower extremity-swelling symptoms appear to be improving as well. Because the patient's vital signs are stable, he is medically improved, he will be discharged home today in improved condition. He will get 3 more dose of p.o. Lasix. See below for full list of discharge medications. Home Meds Active Scripts Furosemide* (Furosemide*) 20 Mg Tablet, 20 MG PO DAILY for 3 Days, #3 TAB Prov:FOX JAVED 09/02/18 Omeprazole* (Omeprazole*) 20 Mg Capsule., 20 MG PO DAILY, #30 CAP Prov:RENU WHITE 08/22/18 Levofloxacin* (Levaquin*) 500 Mg Tablet, 500 MG PO DAILY for 5 Days, #5 TAB Prov:RENU WHITE 08/22/18 Salmeterol Xinaf/Fluticasone* (Advair*) 250-50 Diskus Inhaler, 1 INH INH BID for 30 Days Prov:SANAZ DAVIS MD 04/15/17 Aspirin* (Aspirin* EC) 81 Mg Tablet., 81 MG PO DAILY for 30 Days Prov:SANAZ DAVIS MD 04/15/17 Atorvastatin* (Atorvastatin*) 40 Mg Tablet, 40 MG PO HS for 30 Days, TAB Prov:SANAZ DAVIS MD 04/15/17 Clopidogrel Bisulfate (Clopidogrel) 75 Mg Tablet, 75 MG PO DAILY for 30 Days, TAB Prov:SANAZ DAVIS MD 04/15/17 Amlodipine Besylate* (Norvasc*) 5 Mg Tablet, 2.5 MG PO DAILY for 30 Days, TAB Prov:SANAZ DAVIS MD 04/15/17 Insulin Aspart* (Novolog Insulin Pen*) 100 Unit/Ml Soln, 15 UNIT SC WITH MEALS for 30 Days, #1 SYR Prov:HERRERA,BRANDON V. CHIEF ORTHOPTIST 03/23/17 Metformin Hcl (Glucophage) 500 Mg Tablet, 1000 MG PO BID WITH MEALS for 30 Days, #60 TAB Prov:HERRERA,BRANDON V. CHIEF ORTHOPTIST 03/23/17 Linagliptin (TRADJENTA) 5 Mg Tablet, 5 MG PO DAILY for 30 Days, #30 TAB Prov:HERRERA,BRANDON V. CHIEF ORTHOPTIST 03/23/17 Insulin Glargine* (Lantus*) 100 Unit/Ml Soln, 45 UNIT SC HS for 30 Days, #1 SYR Prov:HERRERA,BRANDON V. CHIEF ORTHOPTIST 03/23/17 Reported Medications Ergocalciferol (Vitamin D2) (VITAMIN D2) 2,000 Unit Tablet, 2000 UNIT PO DAILY, TAB 03/15/17 Follow-up Plan Please remember to elevate your legs when you are at home on the sulfa or in bed. Please take your medications as prescribed. Please see your doctor in the clinic in the next 1 week. Primary Care Provider Hannah Dubois DO Time spent on discharge: > 30 minutes Pending Labs Laboratory Tests Test 09/01/18 17:05 09/01/18 21:43 09/02/18 01:26 09/02/18 05:19 Bedside 176 217 277 Glucose mg/dL (70-220) mg/dL (70-220) mg/dL (70-220) White Blood 6.6 Count 10^3/ul (4.8-1 0.8) Red Blood 3.88 Count 10^6/ul (4.70- 6.10) Hemoglobin 12.3 g/dl (14.0-18. 0) Hematocrit 37.0 % (42.0-52.0) Mean 95.4 Corpuscular fl (82.0-101.0 Volume ) Mean 31.7 Corpuscular pg (29.0-33.0) Hemoglobin Mean 33.2 Corpuscular g/dl (32.0-37. Hemoglobin Conc 0) ent Red Cell 13.2 Distribution % (11.5-14.5) Width Platelet Count 367 10^3/UL (140-4 15) Mean Platelet 10.1 Volume fl (7.4-10.4) Immature 0.600 Granulocytes % % (0.001-0.429 ) Neutrophils % 60.9 % (39.0-77.0) Lymphocytes % 27.2 % (15.0-51.0) Monocytes % 8.2 % (0.0-11.0) Eosinophils % 2.0 % (0.0-7.0) Basophils % 1.1 % (0.0-2.0) Nucleated Red 0.0 Blood Cells % /100WBC (0.0-0 .0) Immature 0.040 Granulocytes # 10^3/ul (0.0-0 .031) Neutrophils # 4.0 10^3/ul (1.6-7 .5) Lymphocytes # 1.8 10^3/ul (0.8-2 .9) Monocytes # 0.5 10^3/ul (0.3-0 .9) Eosinophils # 0.1 10^3/ul (0.0-0 .5) Basophils # 0.1 10^3/ul (0.0-0 .1) Nucleated Red 0.0 Blood Cells # 10^3/ul (0.0-0 .0) Sodium Level 140 mmol/L (135-14 4) Potassium 4.4 Level mmol/L (3.5-5. 1) Chloride Level 102 mmol/L (97-110 ) Carbon Dioxide 30 Level mmol/L (21-31) Anion Gap 8 (5-13) Blood Urea 21 Nitrogen mg/dl (7-20) Creatinine 1.25 mg/dl (0.61-1. 24) Est Glomerular 59 Filtrat mL/min (>60) Rate mL/min Glucose Level 264 mg/dl (70-220) Calcium Level 8.9 mg/dl (8.4-10. 2) Phosphorus 4.4 Level mg/dl (2.5-4.9 ) Magnesium 1.9 Level mg/dl (1.7-2.5 ) Test 09/02/18 08:01 09/02/18 12:24 Bedside 207 258 Glucose mg/dL (70-220) mg/dL (70-220) FOX JAVED Sep 02, 2018 16:18
== END 2018-09-02 17:10 | disposition home or self-care (01) | DRG 683 ==
LOC: E/R 11:41 → PP2 18:28 → OBSVTOIN 08-31 10:04
PROVIDERS: ADMIT Internal Medicine; ATTEND Hospitalist
PROC: 3E0234Z Introduction of Serum, Toxoid and Vaccine into Muscle, Percutaneous Approach (ICD-10-PCS; principal; 2018-09-01)
DX: N17.9 Acute kidney failure, unspecified (principal); I13.0 Hypertensive heart and chronic kidney disease with heart failure and stage 1 through stage 4 chronic kidney disease, or unspecified chronic kidney disease; I50.30 Unspecified diastolic (congestive) heart failure; G47.33 Obstructive sleep apnea (adult) (pediatric); E78.5 Hyperlipidemia, unspecified; E11.65 Type 2 diabetes mellitus with hyperglycemia; N18.9 Chronic kidney disease, unspecified; E11.22 Type 2 diabetes mellitus with diabetic chronic kidney disease; E11.51 Type 2 diabetes mellitus with diabetic peripheral angiopathy without gangrene; E11.21 Type 2 diabetes mellitus with diabetic nephropathy; E11.621 Type 2 diabetes mellitus with foot ulcer; B35.1 Tinea unguium; D64.9 Anemia, unspecified; Z23 Encounter for immunization; I25.10 Atherosclerotic heart disease of native coronary artery without angina pectoris; E11.42 Type 2 diabetes mellitus with diabetic polyneuropathy; J40 Bronchitis, not specified as acute or chronic; E66.9 Obesity, unspecified; Z86.73 Personal history of transient ischemic attack (TIA), and cerebral infarction without residual deficits; Z79.4 Long term (current) use of insulin; Z79.82 Long term (current) use of aspirin; Z68.31 Body mass index [BMI] 31.0-31.9, adult; S80.921A Unspecified superficial injury of right lower leg, initial encounter; X58.XXXA Exposure to other specified factors, initial encounter
CPT/HCPCS: 36415; 71045; 71250; 73590; 76775; 80048; 80053; 80061; 80307; 81001; 81003; 82040; 82043; 82595; 82962; 83036; 83735; 83880; 84100; 84155; 84300; 84439; 84443; 84484; 85025; 86021; 86038; 86160; 86226; 86430; 86704; 86709; 86803; 87081; 87340; 90686; 93005; 93923; 93970; 96374; G0378; J1644; J1815; J1940

== ENCOUNTER 2018-12-06 22:34 | Inpatient (IN) | payer OTHER ==
[~2018-12-06] VITALS: Ht 160 cm; Wt 94.5 kg
[~2018-12-06 22:34] MED LIST changes: +FURO20TA3 PO
[2018-12-07] MEDS ORDERED: ONDANSETRON 4 MG INJ IV STA (00:28)
[2018-12-07] MEDS ORDERED: SOD CHLORIDE 0.9% 1,000 ML IV ONE ×2 (00:30→02:00)
[2018-12-07] MEDS ORDERED: INSULIN REGULAR, HUMAN 100 UNIT/1 ML 3ML VIAL SC ONE (02:00)
--- NOTE | 2018-12-07 04:42 | ERD ---
ER Documentation Chief Complaint Chief Complaint states been drinking etoh x 12 days, c/o vomiting/abd pain HPI This is a 63-year-old male with a past medical history of hypertension, hyperlipidemia, insulin-dependent diabetes, coronary artery disease on aspirin and Plavix, previous CVA without obvious residual deficits, chronic significant alcoholism who is presenting with cramping generalized abdominal pain, nausea and multiple episodes of nonbilious nonbloody vomiting beginning yesterday and today. The patient's family reports that he is been drinking a significant amount of beer over the last 2 weeks. He has been drinking anywhere from 15-30 cans of beer daily. The patient has not been eating or drinking well outside of alcohol. He has not been compliant on his medications. The patient denies feeling sick recently. The patient denies fever or chills. The patient has had no headache or vision changes. The patient does not endorse neck or back pain. The patient denies lightheadedness or dizziness. The patient has had no chest pain or trouble breathing. The patient denies changes to bowel movements or urination. The patient has had no focal deficits. The patient has had no weakness or numbness or tingling to the face or extremities. ROS All systems reviewed and are negative except as per history of present illness. Medications Home Meds Active Scripts Furosemide* (Furosemide*) 20 Mg Tablet, 20 MG PO DAILY for 3 Days, #3 TAB Prov:FOX JAVED 09/02/18 Omeprazole* (Omeprazole*) 20 Mg Capsule.dr, 20 MG PO DAILY, #30 CAP Prov:RENU WHITE 08/22/18 Levofloxacin* (Levaquin*) 500 Mg Tablet, 500 MG PO DAILY for 5 Days, #5 TAB Prov:RENU WHITE 08/22/18 Salmeterol Xinaf/Fluticasone* (Advair*) 250-50 Diskus Inhaler, 1 INH INH BID for 30 Days Prov:SANAZ DAVIS MD 04/15/17 Aspirin* (Aspirin* EC) 81 Mg Tablet.dr, 81 MG PO DAILY for 30 Days Prov:SANAZ DAVIS MD 04/15/17 Atorvastatin* (Atorvastatin*) 40 Mg Tablet, 40 MG PO HS for 30 Days, TAB Prov:SANAZ DAVIS MD 04/15/17 Clopidogrel Bisulfate (Clopidogrel) 75 Mg Tablet, 75 MG PO DAILY for 30 Days, TAB Prov:SANAZ DAVIS MD 04/15/17 Amlodipine Besylate* (Norvasc*) 5 Mg Tablet, 2.5 MG PO DAILY for 30 Days, TAB Prov:SANAZ DAVIS MD 04/15/17 Insulin Aspart* (Novolog Insulin Pen*) 100 Unit/Ml Soln, 15 UNIT SC WITH MEALS for 30 Days, #1 SYR Prov:HERRERA,BRANDON V. DIGITAL ARTIST 03/23/17 Metformin Hcl (Glucophage) 500 Mg Tablet, 1000 MG PO BID WITH MEALS for 30 Days, #60 TAB Prov:HERRERA,BRANDON V. DIGITAL ARTIST 03/23/17 Linagliptin (TRADJENTA) 5 Mg Tablet, 5 MG PO DAILY for 30 Days, #30 TAB Prov:HERRERA,BRANDON V. DIGITAL ARTIST 03/23/17 Insulin Glargine* (Lantus*) 100 Unit/Ml Soln, 45 UNIT SC HS for 30 Days, #1 SYR Prov:HERRERA,BRANDON V. DIGITAL ARTIST 03/23/17 Reported Medications Ergocalciferol (Vitamin D2) (VITAMIN D2) 2,000 Unit Tablet, 2000 UNIT PO DAILY, TAB 03/15/17 Allergies Allergies: Coded Allergies: No Known Allergy (Unverified , 08/30/18) PMhx/Soc Medical and Surgical Hx: pt denies Surgical Hx History of Surgery: No Anesthesia Reaction: No Hx Neurological Disorder: Yes (CVA) Hx Respiratory Disorders: No Hx Cardiac Disorders: Yes (Hypertension, hyperlipidemia, diabetes, coronary artery disease) Hx Psychiatric Problems: No Hx Miscellaneous Medical Probl: Yes (GERD) Hx Alcohol Use: Yes (HX ALCOHOL ABUSE ) Hx Substance Use: No Hx Tobacco Use: No Smoking Status: Never smoker FmHx Family History: diabetes Physical Exam Vitals Vital Signs Date Temp Pulse Resp B/P (MAP) Pulse Ox O2 O2 Flow FiO2 Time Delivery Rate 12/07/18 96 16 159/70 96 Room Air 05:35 (99) 12/07/18 98 16 167/71 97 Room Air 04:30 (103) 12/07/18 98 16 152/76 95 Room Air 03:35 (101) 12/07/18 94 16 166/97 98 Room Air 02:30 (120) 12/07/18 91 18 181/86 98 Room Air 01:15 (117) 12/06/18 97.6 90 18 171/82 98 22:41 (111) Physical Exam Const: No apparent distress, well-developed, well-nourished Head: Normocephalic, Atraumatic Eyes: Normal Conjunctiva. Extraocular movements intact. ENT: Normal External Ears, Nose and Mouth. Neck: Full range of motion. No meningismus. Resp: Clear to auscultation bilaterally, No wheezes, rales or rhonchi Cardio: Regular rate and rhythm. No murmurs, rubs or gallops Abd: Distended abdomen. Soft, non tender. Normal bowel sounds Skin: No petechiae or rashes Back: No midline tenderness. No CVA tenderness Ext: No cyanosis, or edema Neur: Awake and alert, oriented 4. Cranial nerves intact. No facial droop. Normal strength, sensation and coordination. Psych: Anxious Result Diagram: 12/07/18 0035 12/07/18 0510 Results 24 hrs Laboratory Tests Test 12/07/18 00:34 12/07/18 00:35 12/07/18 02:33 12/07/18 04:32 Sodium Level 134 mmol/L Potassium Level 3.7 mmol/L Chloride Level 92 mmol/L Carbon Dioxide 19 mmol/L Level Anion Gap 23 Blood Urea 24 mg/dl Nitrogen Creatinine 1.32 mg/dl Est Glomerular 55 mL/min Filtrat Rate mL/min Glucose Level 456 mg/dl Calcium Level 8.9 mg/dl Total Bilirubin 0.4 mg/dl Direct Bilirubin 0.00 mg/dl Indirect 0.4 mg/dl Bilirubin Aspartate Amino 29 IU/L Transf (AST/SGOT ) Alanine 39 IU/L Aminotransferase (ALT/SGPT) Alkaline 117 IU/L Phosphatase Total Protein 6.2 g/dl Albumin 3.4 g/dl Globulin 2.80 g/dl Albumin/Globulin 1.21 Ratio Lipase 227 U/L Ethyl Alcohol 279.0 mg/dl Level White Blood 13.8 10^3/ul Count Red Blood Count 4.73 10^6/ul Hemoglobin 14.6 g/dl Hematocrit 40.4 % Mean Corpuscular 85.4 fl Volume Mean Corpuscular 30.9 pg Hemoglobin Mean Corpuscular 36.1 g/dl Hemoglobin Migdalia nt Red Cell 11.8 % Distribution Width Platelet Count 310 10^3/UL Mean Platelet 9.9 fl Volume Immature 0.400 % Granulocytes % Neutrophils % 76.4 % Lymphocytes % 17.9 % Monocytes % 4.8 % Eosinophils % 0.1 % Basophils % 0.4 % Nucleated Red 0.0 /100WBC Blood Cells % Immature 0.060 10^3/ul Granulocytes # Neutrophils # 10.6 10^3/ul Lymphocytes # 2.5 10^3/ul Monocytes # 0.7 10^3/ul Eosinophils # 0.0 10^3/ul Basophils # 0.1 10^3/ul Nucleated Red 0.0 10^3/ul Blood Cells # Bedside Glucose 431 mg/dL Blood Gas Blood venous Specimen Source Arterial Blood 12/07/2018 4:45:3 Date Drawn 8 AM Arterial Blood VENOUS LINE Gas Puncture Site Demond Test N/A Venous Blood pH 7.379 Venous Blood 25.0 mmHG pCO2 (Temp Corrected) Venous Blood pO2 63.4 mmHG (Temp Corrected) Venous Blood 14.4 mmol/L HCO3 Venous Blood 89.4 mmHG Oxygen Saturation Venous Blood -8.9 mmol/L Base Excess Venous Blood 13.2 g/dl Total Hemoglobin Venous Blood 89.0 % Oxyhemoglobin Venous Blood 0.2 % Methemoglobin Carboxyhemoglobi 0.3 % n Blood Gas 37.0 C Temperature Blood Gas ROOM AIR Modality FiO2 21.0 % Blood Gas MM Notified Whom Blood Gas 12/07/2018 4:54:2 Notified Time 5 AM Test 12/07/18 05:10 Sodium Level 139 mmol/L Potassium Level 3.0 mmol/L Chloride Level 104 mmol/L Carbon Dioxide 18 mmol/L Level Anion Gap 17 Blood Urea 21 mg/dl Nitrogen Creatinine 1.06 mg/dl Est Glomerular > 60 mL/min Filtrat Rate mL/min Glucose Level 260 mg/dl Calcium Level 8.1 mg/dl Current Medications Medications Dose Sig/Patricia Start Time Status Last (Trade) Ordered Route PRN Stop Time Admin Dose Reason Admin Sodium 1,000 ml @ Q1H ONCE 12/07/18 DC 12/07/18 Chloride 1,000 mls/hr IV 00:30 01:19 12/07/18 01:29 Ondansetron 4 mg ONCE STAT 12/07/18 DC 12/07/18 HCl (Zofran IV 00:28 01:19 Inj) 12/07/18 00:30 Sodium 1,000 ml @ Q1H ONCE 12/07/18 DC Chloride 1,000 mls/hr IV 02:00 12/07/18 02:59 Insulin 10 unit ONCE ONCE 12/07/18 DC 12/07/18 Human SC 02:00 02:35 Regular 12/07/18 02:04 (Humulin R) Amlodipine 2.5 mg DAILY PO 12/07/18 UNV Besylate 09:00 (Norvasc) Aspirin 81 mg DAILY PO 12/07/18 UNV (Halfprin) 09:00 40 mg HS PO 12/07/18 UNV Atorvastatin 21:00 Calcium (Lipitor) Clopidogrel 75 mg DAILY PO 12/07/18 UNV Bisulfate 09:00 (plaVIX) Insulin 15 unit WITH MEALS 12/07/18 UNV Aspart SC 08:00 (Novolog Insulin Pen) Insulin 45 units HS SC 12/07/18 UNV Glargine 21:00 (Lantus) 20 mg DAILY PO 12/07/18 UNV Miscellaneous 09:00 Information 1 inh BID INH 12/07/18 UNV Miscellaneous 09:00 Information Procedures/MDM MDM The patient's presentation warrants further investigation. Previous medical records, if available, were reviewed. LABS The patient's laboratory testing was obtained and reviewed. No emergent treatment was required unless described below. CBC: Leukocytosis without shift, likely reactive. No E/o systemic infection or severe anemia or thrombocytopenia Chemistry: Hyponatremia, mild. Elevated BUN and creatinine in line with his chronic kidney disease. Hyperglycemia with an anion gap metabolic acidosis, potentially concerning for DKA, though this could also be related to his significant alcoholic ketoacidosis. No E/o liver disease. Lipase: No E/o pancreatitis Tox: E/o alcohol abuse. TREATMENT/DISPOSITION The patient presents with nausea and vomiting. He has not been caring for himself and he has been instead been drinking beer significantly and exclusively over the last 2 weeks. Patient's alcohol level is significantly elevated today. The patient is currently pending sober. The patient also has a significantly elevated blood sugar. There is concern for the possibility of DKA. The patient was given a liter of fluids in addition to 10 units of insulin. A repeat BMP was completed that demonstrated an improving blood sugar. However, the patient has a persistent anion gap with a worsening CO2. While the patient does have acidosis, he does not have acidemia. The patient's pH on his VBG is 7.37. Additionally, the patient's anion gap metabolic acidosis could be related to alcoholic ketosis. That said, the patient does have significant metabolic derangements, and I do feel that the patient will benefit from admission for further management. It is also unclear if the patient has been compliant on his medications during this alcohol binge. He is on multiple important medicines that will require reinitiation. ADMISSION At this time, I feel that the patient requires admission for further evaluation and management. The patient will be admitted to panel in accordance with the patient's insurance. The patient was accepted by Dr. Soares at 5:55 PM on 12/07/2018. Disclaimer: Inadvertent spelling and grammatical errors are likely due to EHR/dictation software use and do not reflect on the overall quality of patient care. Note that the electronic time recorded on this note does not necessarily reflect the actual time of the patient encounter. Departure Diagnosis: Primary Impression: Alcoholic intoxication Complication of substance-induced condition: with unspecified complication Qualified Codes: F10.929 - Alcohol use, unspecified with intoxication, unspecified Additional Impressions: Hyperglycemia High anion gap metabolic acidosis Leukocytosis Leukocytosis type: unspecified Qualified Codes: D72.829 - Elevated white blood cell count, unspecified Hyponatremia Chronic kidney disease Chronic kidney disease stage: unspecified stage Qualified Codes: N18.9 - Chronic kidney disease, unspecified Nausea & vomiting Vomiting type: unspecified Vomiting Intractability: non-intractable Qualified Codes: R11.2 - Nausea with vomiting, unspecified Abdominal pain Abdominal location: generalized Qualified Codes: R10.84 - Generalized abdominal pain Condition: Serious ALBIN RECINOS MD Dec 07, 2018 04:42
[2018-12-07] MEDS ORDERED: INSULIN GLARGINE [LANTus] (100 UNITS/ML) SYG SC ONE (06:00)
[2018-12-07] MEDS ORDERED: ONDANSETRON 4 MG INJ IV PRN (06:00)
[2018-12-07] MEDS ORDERED: ACETAMINOPHEN 325 MG TAB PO PRN (06:00)
[2018-12-07] MEDS ORDERED: POTASSIUM CHLORIDE (SR) 20 MEQ TAB PO ONE (06:16)
--- NOTE | 2018-12-07 06:23 | HP ---
Date/Time of Note Date/Time of Note DATE: 12/07/18 TIME: : Assessment/Plan VTE Prophylaxis SCD applied (from Nsg): Yes Pharmacological prophylaxis: NA/contraindicated Pharm contraindication: low risk/ambulating Lines/Catheters IV Catheter Type (from Nrsg): Saline Lock Assessment/Plan Hospital Course This is a 63 old male being admitted to the [facility] floor for: 1. Acute alcohol intoxication -Blood alcohol level of approximately 279 -Liver function tests are within normal values -Patient did receive IV fluids in the emergency department with improvement in his gap acidosis, will give an additional 1 L bolus normal saline, banana bag, and PRN ativan -Librium taper - monitor for withdrawal and DTs 2. Metabolic acidosis secondary to alcohol ketoacidosis, nausea vomiting, I do not suspect DKA, given his pH of 7.37, will check a urinalysis for ketones however I do not feel we will need insulin drip. -Patient's gap did correct with fluids and insulin, no need for insulin drip -Continue IV fluids, insulin - Will continue to monitor 3. Hypokalemia -Secondary to poor p.o. intake, will replete 4. Diabetes Mellitus with hyperglycemia -We will check hemoglobin A 1C - glucose at time of admission was 456, he was given insulin in the ED -We will give 10 units of Lantus at the current time and then resume his home Lantus and NovoLog regimen. - ISS and accuchecks -Carb controlled diet 5. Hyponatremia: Secondary to dehydration, poor p.o. intake this is improving after receiving fluids. Continue to monitor 6. Acute kidney injury: Secondary to dehydration, hemodynamics, nausea vomiting. Patient did receive IV fluid hydration in the emergency department with subsequent improvement in the renal function. We will continue to monitor. 7. HTN - will resume home medications and adjust for better control - PRN hydralazine on board 8. PVD - on aspirin and plavix 9. h/o CVA - aspirin on board 10. Medication noncompliance: We will need to encourage medication compliance, social work consult 11. DVT GI prophylaxis: SCDs, Protonix further treatment strategy will be implemented as per the clinical course Result Diagram: 12/07/18 0035 12/07/18 0510 Results 24hrs Laboratory Tests Test 12/07/18 00:34 12/07/18 00:35 12/07/18 02:33 12/07/18 04:32 Sodium Level 134 L Potassium Level 3.7 Chloride Level 92 L Carbon Dioxide 19 L Level Anion Gap 23 H Blood Urea 24 H Nitrogen Creatinine 1.32 H Est Glomerular 55 L Filtrat Rate mL/min Glucose Level 456 *H Calcium Level 8.9 Total Bilirubin 0.4 Direct Bilirubin 0.00 Indirect 0.4 Bilirubin Aspartate Amino 29 Transf (AST/SGOT) Alanine 39 Aminotransferase (ALT/SGPT) Alkaline 117 Phosphatase Total Protein 6.2 Albumin 3.4 Globulin 2.80 Albumin/Globulin 1.21 Ratio Lipase 227 Ethyl Alcohol 279.0 H Level White Blood Count 13.8 #H Red Blood Count 4.73 # Hemoglobin 14.6 Hematocrit 40.4 L Mean Corpuscular 85.4 Volume Mean Corpuscular 30.9 Hemoglobin Mean Corpuscular 36.1 Hemoglobin Concen t Red Cell 11.8 Distribution Width Platelet Count 310 Mean Platelet 9.9 Volume Immature 0.400 Granulocytes % Neutrophils % 76.4 Lymphocytes % 17.9 Monocytes % 4.8 Eosinophils % 0.1 Basophils % 0.4 Nucleated Red 0.0 Blood Cells % Immature 0.060 H Granulocytes # Neutrophils # 10.6 H Lymphocytes # 2.5 Monocytes # 0.7 Eosinophils # 0.0 Basophils # 0.1 Nucleated Red 0.0 Blood Cells # Bedside Glucose 431 *H Blood Gas Blood venous Specimen Source Arterial Blood 12/07/2018 4:45:3 Date Drawn 8 AM Arterial Blood VENOUS LINE Gas Puncture Site Demond Test N/A Venous Blood pH 7.379 Venous Blood pCO2 25.0 L (Temp Corrected) Venous Blood pO2 63.4 H (Temp Corrected) Venous Blood HCO3 14.4 L Venous Blood 89.4 H Oxygen Saturation Venous Blood Base -8.9 L Excess Venous Blood 13.2 Total Hemoglobin Venous Blood 89.0 Oxyhemoglobin Venous Blood 0.2 Methemoglobin Carboxyhemoglobin 0.3 Blood Gas 37.0 Temperature Blood Gas ROOM AIR Modality FiO2 21.0 Blood Gas MM Notified Whom Blood Gas 12/07/2018 4:54:2 Notified Time 5 AM Test 12/07/18 05:10 Sodium Level 139 Potassium Level 3.0 L Chloride Level 104 # Carbon Dioxide 18 L Level Anion Gap 17 H Blood Urea 21 H Nitrogen Creatinine 1.06 Est Glomerular > 60 Filtrat Rate mL/min Glucose Level 260 #H Calcium Level 8.1 L HPI/ROS Admit Date/Time Admit Date/Time Hx of Present Illness CC: ab pain, n/v This is a 63-year-old male with a past medical history of hypertension, hyperlipidemia, insulin-dependent diabetes, coronary artery disease on aspirin and Plavix, previous CVA without obvious residual deficits, chronic significant alcoholism who is presenting with cramping generalized abdominal pain, nausea and multiple episodes of nonbilious nonbloody vomiting beginning yesterday and today. The patient's family reports that he is been drinking a significant amount of beer over the last 2 weeks. He has been drinking anywhere from 15-30 cans of beer daily. The patient has not been eating or drinking well outside of alcohol. On examination his mucous membranes appear dry. He does report some throat pain. His abdomen is benign on examination after receiving treatment in the ER. He denies any auditory or visual hallucinations allergies: nkda meds: see mar, but recently has been non compliant ROS Const: As per HPI Eyes : No pain discharge or redness or change in visual acuity ENT: No pain, sore throat, congestion, congestion, dysphagia or discharge Respiratory: No shortness of breath, cough, sputum, wheezing, or pleuritic pain Cardiovascular: No chest pain, palpitation, PND, or edema GI : As per HPI Genitourinary: No dysuria, hematuria, flank pain , discharge or CVA tenderness Musculoskeletal: No joint pain, back pain, neck pain, restricted range of motion in neck or joints Skin: No rash, bruising or hives Neuro: No headache, dizziness, syncope, seizure, focal weakness Endocrine: No polyuria, polydipsia, temperature intolerance Psych: As per HPI PMH/Family/Social Past Medical History DM, CVA, h/o left foot OM, HTN, and alcohol abuse, chronic cough, possible obstructive sleep apnea Medications Current Medications Amlodipine Besylate (Norvasc) 2.5 mg DAILY PO ; Start 12/07/18 at 09:00 Aspirin (Halfprin) 81 mg DAILY PO ; Start 12/07/18 at 09:00 Atorvastatin Calcium (Lipitor) 40 mg HS PO ; Start 12/07/18 at 21:00 Clopidogrel Bisulfate (plaVIX) 75 mg DAILY PO ; Start 12/07/18 at 09:00 Insulin Aspart (Novolog Insulin Pen) 15 unit WITH MEALS SC ; Start 12/07/18 at 08:00 Insulin Glargine (Lantus) 45 units HS SC ; Start 12/07/18 at 21:00 Miscellaneous Information 1 inh BID INH ; Start 12/07/18 at 09:00; Status UNV Ondansetron HCl (Zofran Inj) 4 mg BRIDGE ORDER PRN IV NAUSEA/VOMITING; Start 12/07/18 at 06:00; Stop 12/08/18 at 05:59 Acetaminophen (Tylenol Tab) 650 mg ER BRIDGE PRN PO .MILD PAIN 1-3 OR TEMP; Start 12/07/18 at 06:00; Stop 12/08/18 at 05:59 Multivitamins 10 ml/Thiamine HCl 100 mg/Folic Acid 1 mg/Sodium Chloride 1,011.2 ml @ 125 mls/ hr DAILY@09 IVPB ; Start 12/07/18 at 06:30; Stop 12/07/18 at 08:59 Pantoprazole (Protonix Tab) 40 mg DAILY@06 PO ; Start 12/08/18 at 06:00 IV Flush (NS 3 ml) 3 ml PER PROTOCOL IV ; Start 12/07/18 at 06:30 Ondansetron HCl (Zofran Tab) 4 mg Q6H PRN PO NAUSEA/VOMITING; Start 12/07/18 at 06:30 Docusate Sodium (Colace) 100 mg Q12H PRN PO .CONSTIPATION; Start 12/07/18 at 06:30 Bisacodyl (Dulcolax) 5 mg DAILY PRN PO .CONSTIPATION; Start 12/07/18 at 06:30 Chlordiazepoxide (Librium) 50 mg TID PO ; Start 12/07/18 at 09:00; Stop 12/08/18 at 08:59 Chlordiazepoxide (Librium) 25 mg QID PO ; Start 12/08/18 at 09:00; Stop 12/09/18 at 08:59 Chlordiazepoxide (Librium) 25 mg TID PO ; Start 12/09/18 at 09:00; Stop 12/10/18 at 08:59 Lorazepam (Ativan) 1 mg Q2H PRN PO CONTROL WITHDRAWAL SYMPTOMS; Start 12/07/18 at 06:30 Lorazepam (Ativan) 2 mg Q2H PRN PO severe withdrawl; Start 12/07/18 at 06:30 Thiamine HCl (Vitamin B1) 200 mg DAILY PO ; Start 12/07/18 at 09:00; Stop 12/12/18 at 08:59 Folic Acid (Folic Acid) 1 mg DAILY PO ; Start 12/07/18 at 09:00 Multivitamins Therapeutic (Theragran) 1 tab DAILY PO ; Start 12/07/18 at 09:00 Coded Allergies: No Known Allergy (Unverified , 08/30/18) Past Surgical History Unknown Family History Significant Family History: no pertinent family hx Social History Alcohol Use: heavy Smoking Status: Never smoker Drug Use: none Exam/Review of Systems Vital Signs Vitals Vital Signs Date Temp Pulse Resp B/P (MAP) Pulse Ox O2 O2 Flow FiO2 Time Delivery Rate 12/07/18 96 16 159/70 96 Room Air 05:35 (99) 12/06/18 97.6 22:41 Intake and Output 12/06/18 12/06/18 12/07/18 1515:00 23:00 07:00 OutputOutput Total 2700 ml BalanceBalance -2700 ml Exam Exam General: Patient currently lying in bed he has easily arousable though he does appear lethargic, he does report that he has been drinking significantly HEENT: Atraumatic, normocephalic. The pupils are equal, round and reactive. Extraocular motor are intact Neck: Supple with full range of motion. No rigidity or meningismus Chest: Nontender Lungs: Clear to auscultation bilaterally no crackles rales or wheezing Heart: Normal S1-S2, Regular rhythm and rate. No murmur, S3, or S4 Abdomen: Obese, soft , nontender, nondistended , bowel sounds are present. No guarding no rebound tenderness , No masses or organomegaly. No costovertebral temporal angle mass Extremities: Normal to inspection, no edema no cyanosis Neurologic: Normal mental status, speech normal, cranial nerves II through XII are intact, motor and sensory are intact, Psych: Does not appear to be responding to any internal stimuli. JOSÉ LILLY Dec 07, 2018 06:23
[2018-12-07] MEDS ORDERED: LORAZEPAM 1 MG TAB PO PRN ×2 (06:30)
[2018-12-07] MEDS ORDERED: DOCUSATE SODIUM 100 MG CAP PO PRN (06:30)
[2018-12-07] MEDS ORDERED: MULTIVITAMINS 10 ML, THIAMINE 100 MG, FOLIC ACID 1 MG in SOD CHLORIDE 0.9% 1,000 ML IVPB SCH (06:30)
[2018-12-07] MEDS ORDERED: ONDANSETRON 4 MG TAB PO PRN (06:30)
[2018-12-07] MEDS ORDERED: NACL 0.9% 3 ML SYG IV SCH (06:30)
[2018-12-07] MEDS ORDERED: BISACODYL (EC) 5 MG TAB PO PRN (06:30)
[2018-12-07 07:30] VITALS: BP 172/94; PULSE 97; RESP 16
[2018-12-07] MEDS ORDERED: NON-FORMULARY/PATIENT OWN MED (Omeprazole* 20 MG) PO SCH (09:00)
[2018-12-07] MEDS: ACETAMINOPHEN 325 MG TAB PO PRN (09:03)
[2018-12-07] MEDS: ASPIRIN (EC) 81 MG TAB PO SCH (09:06)
[2018-12-07] MEDS: THIAMINE 100 MG TAB PO SCH (09:06)
[2018-12-07] MEDS: CHLORDIAZEPOXIDE 25 MG CAP PO SCH ×3 (09:09→20:34)
[2018-12-07] MEDS: FOLIC ACID 1 MG TAB PO SCH (09:09)
[2018-12-07] MEDS: MULTIVITAMINS THERAPEUTIC TAB PO SCH (09:09)
[2018-12-07] MEDS: AMLODIPINE 2.5 MG TAB PO SCH (09:10)
[2018-12-07] MEDS: CLOPIDOGREL 75 MG TAB PO SCH (09:11)
[2018-12-07] MEDS: INSULIN ASPART [NOVOLOG] 3 ML PEN SC SCH ×5 (09:29→20:34)
[2018-12-07 10:00] VITALS: Ht 160 cm; Wt 94.5 kg
[2018-12-07 13:34] VITALS: BP 170/87; PULSE 96; RESP 18
--- NOTE | 2018-12-07 16:21 | PN ---
Date/Time of Note Date/Time of Note DATE: 12/07/18 TIME: 16:19 Assessment/Plan VTE Prophylaxis SCD applied (from Nsg): Yes Pharmacological prophylaxis: heparin Lines/Catheters IV Catheter Type (from Nrsg): Saline Lock Urinary Cath still in place: Yes Reason Cath still needed: other (indicate) Assessment/Plan Hospital Course SUBJECTIVE: Complains of generalized body pain. OBJECTIVE: Physical Exam General: Obese, 63 year-old male lying in bed in no apparent distress. HEENT: Normocephalic, atraumatic. Eyes: Anicteric sclerae, conjunctivae clear. ENT: Nasal septum midline, oral mucosa moist. Neck: Short and obese. Respiratory: Bilaterally diminished breath sounds. No use of accessory muscles of respiration. No adventitious breath sounds. Cardiovascular: S1, S2 heard. Regular rate and rhythm. Abdomen: Soft, nontender, and nondistended. Bowel sounds positive in all 4 quadrants. Genitourinary: Deferred. Extremities: No cyanosis, no clubbing. Bilateral lower extremity 1+ pitting edema. Neurologic: Cranial nerves II through XII grossly intact. The patient is awake, alert, and oriented. Labs & Vitals per chart ASSESSMENT & PLAN This is a 63-year-old male with comorbidities including diabetes mellitus, left foot osteomyelitis, hypertension, obesity, chronic kidney disease, and peripheral artery disease. The patient came to the emergency room with chief complaint of abdominal pain, nausea, and vomiting. The patient has been drinking significant amounts of alcohol for the previous few days. The patient had a alcohol level of 279. The patient also had underlying acute kidney injury and anion gap acidosis. The patient had a random blood glucose level of 456.The patient was admitted to inpatient setting for further treatment and evaluation. 1. Alcohol intoxication. -Continue multivitamins. -Continue tapering dose of Librium -Continue IV Ativan for any acute DTs. 2. Anion gap acidosis -Most probably secondary to #1. -Correct underlying cause. 3. Acute on chronic kidney disease. -Etiology unclear. -Most probably secondary to underlying dehydration. -Use nephrotoxic drugs with caution. -Continue IV fluids. 4. Diabetes mellitus type 2. -Continue sliding scale insulin along with pre-meal insulin and basal insulin. -Hemoglobin A1c pending. 5. Peripheral artery disease. -Status post left tibioperoneal trunk balloon angioplasty, left femoral popliteal artery stenting, and left femoral popliteal artery balloon angioplasty on 03/22/2017. -Continue antiplatelet therapy. 6. Hypertension. -Continue antihypertensives. 7. Obesity. -BMI 31.5 kg/m -Weight reduction advised. 8. Fluids, electrolytes, and nutrition. -Carbohydrate controlled diet. 9. DVT prophylaxis. -Subcutaneous heparin. 10. Plan. -Continue tapering dose of Librium. -Monitor for alcohol withdrawal delirium. The patient was seen in collaboration with Dr. Gutierrez. Result Diagram: 12/07/18 0035 12/07/18 0510 Results 24hrs Laboratory Tests Test 12/07/18 00:34 12/07/18 00:35 12/07/18 02:33 12/07/18 04:32 Sodium Level 134 L Potassium Level 3.7 Chloride Level 92 L Carbon Dioxide 19 L Level Anion Gap 23 H Blood Urea 24 H Nitrogen Creatinine 1.32 H Est Glomerular 55 L Filtrat Rate mL/min Glucose Level 456 *H Calcium Level 8.9 Total Bilirubin 0.4 Direct Bilirubin 0.00 Indirect 0.4 Bilirubin Aspartate Amino 29 Transf (AST/SGOT) Alanine 39 Aminotransferase (ALT/SGPT) Alkaline 117 Phosphatase Total Protein 6.2 Albumin 3.4 Globulin 2.80 Albumin/Globulin 1.21 Ratio Lipase 227 Ethyl Alcohol 279.0 H Level White Blood Count 13.8 #H Red Blood Count 4.73 # Hemoglobin 14.6 Hematocrit 40.4 L Mean Corpuscular 85.4 Volume Mean Corpuscular 30.9 Hemoglobin Mean Corpuscular 36.1 Hemoglobin Concen t Red Cell 11.8 Distribution Width Platelet Count 310 Mean Platelet 9.9 Volume Immature 0.400 Granulocytes % Neutrophils % 76.4 Lymphocytes % 17.9 Monocytes % 4.8 Eosinophils % 0.1 Basophils % 0.4 Nucleated Red 0.0 Blood Cells % Immature 0.060 H Granulocytes # Neutrophils # 10.6 H Lymphocytes # 2.5 Monocytes # 0.7 Eosinophils # 0.0 Basophils # 0.1 Nucleated Red 0.0 Blood Cells # Bedside Glucose 431 *H Blood Gas Blood venous Specimen Source Arterial Blood 12/07/2018 4:45:3 Date Drawn 8 AM Arterial Blood VENOUS LINE Gas Puncture Site Demond Test N/A Venous Blood pH 7.379 Venous Blood pCO2 25.0 L (Temp Corrected) Venous Blood pO2 63.4 H (Temp Corrected) Venous Blood HCO3 14.4 L Venous Blood 89.4 H Oxygen Saturation Venous Blood Base -8.9 L Excess Venous Blood 13.2 Total Hemoglobin Venous Blood 89.0 Oxyhemoglobin Venous Blood 0.2 Methemoglobin Carboxyhemoglobin 0.3 Blood Gas 37.0 Temperature Blood Gas ROOM AIR Modality FiO2 21.0 Blood Gas MM Notified Whom Blood Gas 12/07/2018 4:54:2 Notified Time 5 AM Test 12/07/18 05:10 12/07/18 08:56 12/07/18 12:52 Sodium Level 139 Potassium Level 3.0 L Chloride Level 104 # Carbon Dioxide 18 L Level Anion Gap 17 H Blood Urea 21 H Nitrogen Creatinine 1.06 Est Glomerular > 60 Filtrat Rate mL/min Glucose Level 260 #H Calcium Level 8.1 L Magnesium Level 2.1 Bedside Glucose 216 113 Exam/Review of Systems Exam Vitals Vital Signs Date Temp Pulse Resp B/P (MAP) Pulse Ox O2 O2 Flow FiO2 Time Delivery Rate 12/07/18 98.4 96 18 170/87 96 13:34 (114) 12/07/18 Room Air 05:35 Intake and Output 12/06/18 12/06/18 12/07/18 1515:00 23:00 07:00 OutputOutput Total 2700 ml BalanceBalance -2700 ml Results Results 24hrs Laboratory Tests Test 12/07/18 00:34 12/07/18 00:35 12/07/18 02:33 12/07/18 04:32 Sodium Level 134 L Potassium Level 3.7 Chloride Level 92 L Carbon Dioxide 19 L Level Anion Gap 23 H Blood Urea 24 H Nitrogen Creatinine 1.32 H Est Glomerular 55 L Filtrat Rate mL/min Glucose Level 456 *H Calcium Level 8.9 Total Bilirubin 0.4 Direct Bilirubin 0.00 Indirect 0.4 Bilirubin Aspartate Amino 29 Transf (AST/SGOT) Alanine 39 Aminotransferase (ALT/SGPT) Alkaline 117 Phosphatase Total Protein 6.2 Albumin 3.4 Globulin 2.80 Albumin/Globulin 1.21 Ratio Lipase 227 Ethyl Alcohol 279.0 H Level White Blood Count 13.8 #H Red Blood Count 4.73 # Hemoglobin 14.6 Hematocrit 40.4 L Mean Corpuscular 85.4 Volume Mean Corpuscular 30.9 Hemoglobin Mean Corpuscular 36.1 Hemoglobin Concen t Red Cell 11.8 Distribution Width Platelet Count 310 Mean Platelet 9.9 Volume Immature 0.400 Granulocytes % Neutrophils % 76.4 Lymphocytes % 17.9 Monocytes % 4.8 Eosinophils % 0.1 Basophils % 0.4 Nucleated Red 0.0 Blood Cells % Immature 0.060 H Granulocytes # Neutrophils # 10.6 H Lymphocytes # 2.5 Monocytes # 0.7 Eosinophils # 0.0 Basophils # 0.1 Nucleated Red 0.0 Blood Cells # Bedside Glucose 431 *H Blood Gas Blood venous Specimen Source Arterial Blood 12/07/2018 4:45:3 Date Drawn 8 AM Arterial Blood VENOUS LINE Gas Puncture Site Demond Test N/A Venous Blood pH 7.379 Venous Blood pCO2 25.0 L (Temp Corrected) Venous Blood pO2 63.4 H (Temp Corrected) Venous Blood HCO3 14.4 L Venous Blood 89.4 H Oxygen Saturation Venous Blood Base -8.9 L Excess Venous Blood 13.2 Total Hemoglobin Venous Blood 89.0 Oxyhemoglobin Venous Blood 0.2 Methemoglobin Carboxyhemoglobin 0.3 Blood Gas 37.0 Temperature Blood Gas ROOM AIR Modality FiO2 21.0 Blood Gas MM Notified Whom Blood Gas 12/07/2018 4:54:2 Notified Time 5 AM Test 12/07/18 05:10 12/07/18 08:56 12/07/18 12:52 Sodium Level 139 Potassium Level 3.0 L Chloride Level 104 # Carbon Dioxide 18 L Level Anion Gap 17 H Blood Urea 21 H Nitrogen Creatinine 1.06 Est Glomerular > 60 Filtrat Rate mL/min Glucose Level 260 #H Calcium Level 8.1 L Magnesium Level 2.1 Bedside Glucose 216 113 Medications Medication Current Medications Amlodipine Besylate (Norvasc) 2.5 mg DAILY PO Last administered on 12/07/18at 09:10; Admin Dose 2.5 MG; Start 12/07/18 at 09:00 Aspirin (Halfprin) 81 mg DAILY PO Last administered on 12/07/18at 09:06; Admin Dose 81 MG; Start 12/07/18 at 09:00 Atorvastatin Calcium (Lipitor) 40 mg HS PO ; Start 12/07/18 at 21:00 Clopidogrel Bisulfate (plaVIX) 75 mg DAILY PO Last administered on 12/07/18at 09:11; Admin Dose 75 MG; Start 12/07/18 at 09:00 Insulin Aspart (Novolog Insulin Pen) 15 unit WITH MEALS SC Last administered on 12/07/18at 12:58; Admin Dose 15 UNIT; Start 12/07/18 at 08:00 Insulin Glargine (Lantus) 45 units HS SC ; Start 12/07/18 at 21:00 Fluticasone/ Vilanterol (Breo Ellipta 100-25 Mcg Inh) 1 inh DAILY INH ; Start 12/07/18 at 14:00 Pantoprazole (Protonix Tab) 40 mg DAILY@06 PO ; Start 12/08/18 at 06:00 IV Flush (NS 3 ml) 3 ml PER PROTOCOL IV ; Start 12/07/18 at 06:30 Ondansetron HCl (Zofran Tab) 4 mg Q6H PRN PO NAUSEA/VOMITING; Start 12/07/18 at 06:30 Docusate Sodium (Colace) 100 mg Q12H PRN PO .CONSTIPATION; Start 12/07/18 at 06:30 Bisacodyl (Dulcolax) 5 mg DAILY PRN PO .CONSTIPATION; Start 12/07/18 at 06:30 Chlordiazepoxide (Librium) 50 mg TID PO Last administered on 12/07/18at 12:59; Admin Dose 50 MG; Start 12/07/18 at 09:00; Stop 12/08/18 at 08:59 Chlordiazepoxide (Librium) 25 mg QID PO ; Start 12/08/18 at 09:00; Stop 12/09/18 at 08:59 Chlordiazepoxide (Librium) 25 mg TID PO ; Start 12/09/18 at 09:00; Stop 12/10/18 at 08:59 Lorazepam (Ativan) 1 mg Q2H PRN PO CONTROL WITHDRAWAL SYMPTOMS Last administered on 12/07/18at 12:28; Admin Dose 1 MG; Start 12/07/18 at 06:30 Lorazepam (Ativan) 2 mg Q2H PRN PO severe withdrawl; Start 12/07/18 at 06:30 Thiamine HCl (Vitamin B1) 200 mg DAILY PO Last administered on 12/07/18at 09:06; Admin Dose 200 MG; Start 12/07/18 at 09:00; Stop 12/12/18 at 08:59 Folic Acid (Folic Acid) 1 mg DAILY PO Last administered on 12/07/18at 09:09; Admin Dose 1 MG; Start 12/07/18 at 09:00 Multivitamins Therapeutic (Theragran) 1 tab DAILY PO Last administered on 12/07/18at 09:09; Admin Dose 1 TAB; Start 12/07/18 at 09:00 Acetaminophen (Tylenol Tab) 650 mg Q4H PRN PO MILD PAIN(1-3)OR ELEVATED TEMP Last administered on 12/07/18at 09:03; Admin Dose 650 MG; Start 12/07/18 at 06:30 Phenol (Cepastat Lozenge) 1 lozenge Q1H PRN MT SORE THROAT; Start 12/07/18 at 06:30 Insulin Aspart (Novolog Insulin Pen) NOVOLOG *MILD* ALGORITHM WITH MEALS BEDTIME SC ; Start 12/07/18 at 18:00 Tramadol HCl (Ultram) 50 mg Q6H PRN PO MODERATE PAIN LEVEL 4-6; Start 12/07/18 at 15:30 MALLORY AMOS NP Dec 07, 2018 16:21
[2018-12-07] MEDS: FLUTICASONE/VILANTEROL 100-25 INH SCH (17:54)
[2018-12-07] MEDS: traMADol 50 MG TAB PO PRN (18:42)
[2018-12-07 19:58] VITALS: BP 180/94; PULSE 103; RESP 20
[2018-12-07] MEDS: ATORVASTATIN 20 MG TAB PO SCH (20:34)
[2018-12-07] MEDS: HEPARIN 5,000 UNIT/1 ML VIAL SC SCH (20:37)
[2018-12-07] MEDS: CEPASTAT LOZENGE MT PRN ×2 (20:56→23:16)
[2018-12-07] MEDS ORDERED: INSULIN GLARGINE [LANTus] (100 UNITS/ML) SYG SC SCH (21:00)
[2018-12-07] MEDS: HYDROCODONE/APAP (5/325) TAB PO PRN (21:27)
[2018-12-07] MEDS: ONDANSETRON 4 MG INJ IV PRN (21:28)
[2018-12-07 22:00] VITALS: BP 168/96; PULSE 96
[2018-12-08 01:18] VITALS: BP 203/99; PULSE 98; RESP 18
[2018-12-08] MEDS ORDERED: LABETALOL 200 MG TAB PO ONE (01:30)
[2018-12-08] MEDS ORDERED: ENALAPRILAT 1.25 MG INJ IV PRN (01:30)
[2018-12-08 02:29] VITALS: BP 170/79; PULSE 87; RESP 18
[2018-12-08] MEDS: PANTOPRAZOLE (EC) 40 MG TAB PO SCH (05:56)
[2018-12-08] MEDS: HYDROCODONE/APAP (5/325) TAB PO PRN ×2 (05:56→10:33)
[2018-12-08 07:43] VITALS: BP 173/81; PULSE 77; RESP 18
[2018-12-08] MEDS: ASPIRIN (EC) 81 MG TAB PO SCH (08:08)
[2018-12-08] MEDS: FOLIC ACID 1 MG TAB PO SCH (08:08)
[2018-12-08] MEDS: CHLORDIAZEPOXIDE 25 MG CAP PO SCH ×2 (08:09→13:08)
[2018-12-08] MEDS: THIAMINE 100 MG TAB PO SCH (08:09)
[2018-12-08] MEDS: FLUTICASONE/VILANTEROL 100-25 INH SCH (08:10)
[2018-12-08] MEDS: MULTIVITAMINS THERAPEUTIC TAB PO SCH (08:10)
[2018-12-08] MEDS: CLOPIDOGREL 75 MG TAB PO SCH (08:10)
[2018-12-08] MEDS: HEPARIN 5,000 UNIT/1 ML VIAL SC SCH ×2 (08:11→20:10)
[2018-12-08] MEDS: INSULIN ASPART [NOVOLOG] 3 ML PEN SC SCH ×7 (08:12→20:09)
[2018-12-08] MEDS: AMLODIPINE 2.5 MG TAB PO SCH (08:14)
[2018-12-08] MEDS ORDERED: POTASSIUM CHLORIDE (SR) 20 MEQ TAB PO STA (08:54)
[2018-12-08] MEDS ORDERED: GLUCAGON 1 MG INJ IM PRN (10:30)
[2018-12-08] MEDS ORDERED: GLUCOSE GEL 15 GRAM TUBE PO PRN ×2 (10:30)
[2018-12-08] MEDS ORDERED: DEXTROSE 50% 50 ML SYRINGE IV PRN ×2 (10:30)
[2018-12-08] MEDS ORDERED: GLUCOSE GEL 15 GRAM TUBE BUCCAL PRN (10:30)
[2018-12-08] MEDS: ONDANSETRON 4 MG INJ IV PRN (10:32)
[2018-12-08 14:00] VITALS: BP 133/69; PULSE 92; RESP 18
--- NOTE | 2018-12-08 16:56 | PN ---
Date/Time of Note Date/Time of Note DATE: 12/08/18 TIME: 16:53 Assessment/Plan VTE Prophylaxis Risk score (from Nsg)>0 risk: 3 SCD applied (from Nsg): Yes Pharmacological prophylaxis: heparin Lines/Catheters IV Catheter Type (from Nrsg): Saline Lock Urinary Cath still in place: Yes Reason Cath still needed: urinary retention Assessment/Plan Hospital Course EXAM: lethargic but arousable Obese RRR CTAB No signs of w/d No edema A/P: 63 yo male with etoh use d/o, obesity, DMII uncontrolled presented with alcohol intoxication and hyperglycemia Etoh use d/o: - No signs of withdrawal. Has received benzos leading to oversedation. We will stop these and monitor - Thiamine, mvi, folate - SW consult tomorrow DMII with hyperglycemia: - Uptitrate basal/bolus insulin and add metformin Hypertension: - Adequetaly controlled PAD, CAD: - continue plavix, statin mild alcoholic hepatitis Discharge in coming days when ambulating safely and sugars controlled Result Diagram: 12/08/18 0449 12/08/18 0449 Results 24hrs Laboratory Tests Test 12/07/18 17:50 12/07/18 18:15 12/07/18 18:41 12/07/18 20:28 Bedside Glucose 66 L 119 153 140 Test 12/08/18 04:49 12/08/18 07:58 12/08/18 12:34 White Blood Count 9.8 # Red Blood Count 4.07 L Hemoglobin 12.6 L Hematocrit 35.8 L Mean Corpuscular 88.0 Volume Mean Corpuscular 31.0 Hemoglobin Mean Corpuscular 35.2 Hemoglobin Concent Red Cell 12.0 Distribution Width Platelet Count 211 # Mean Platelet Volume 9.7 Immature 0.500 H Granulocytes % Neutrophils % 70.5 Lymphocytes % 22.9 Monocytes % 5.3 Eosinophils % 0.4 Basophils % 0.4 Nucleated Red Blood 0.0 Cells % Immature 0.050 H Granulocytes # Neutrophils # 6.9 Lymphocytes # 2.3 Monocytes # 0.5 Eosinophils # 0.0 Basophils # 0.0 Nucleated Red Blood 0.0 Cells # Sodium Level 134 L Potassium Level 3.1 L Chloride Level 101 Carbon Dioxide Level 21 Anion Gap 12 Blood Urea Nitrogen 18 Creatinine 1.08 Est Glomerular > 60 Filtrat Rate mL/min Glucose Level 231 H Hemoglobin A1c 10.3 H Calcium Level 7.4 L Phosphorus Level 2.9 Magnesium Level 1.9 Total Bilirubin 0.7 Direct Bilirubin 0.00 Indirect Bilirubin 0.7 Aspartate Amino 39 Transf (AST/SGOT) Alanine 41 Aminotransferase (AL T/SGPT) Alkaline Phosphatase 110 Total Protein 5.0 #L Albumin 2.5 L Globulin 2.50 Albumin/Globulin 1.00 Ratio Triglycerides Level 671 H Cholesterol Level 92 L LDL Cholesterol, Calculated HDL Cholesterol 27 L Cholesterol/HDL 3.4 Ratio Thyroid Stimulating 2.380 Hormone (TSH) Bedside Glucose 307 H 203 Subjective 24 Hr Interval Summary Free Text/Dictation No s/s of withdrawal Very sleepy Says having tough time walking Exam/Review of Systems Exam Vitals Vital Signs Date Temp Pulse Resp B/P (MAP) Pulse Ox O2 O2 Flow FiO2 Time Delivery Rate 12/08/18 99.8 92 18 133/69 92 Room Air 14:00 (90) Intake and Output 12/07/18 12/07/18 12/08/18 1515:00 23:00 07:00 IntakeIntake Total 960 ml 1571.2 ml 420 ml OutputOutput Total 1000 ml 450 ml BalanceBalance 960 ml 571.2 ml -30 ml Results Results 24hrs Laboratory Tests Test 12/07/18 17:50 12/07/18 18:15 12/07/18 18:41 12/07/18 20:28 Bedside Glucose 66 L 119 153 140 Test 12/08/18 04:49 12/08/18 07:58 12/08/18 12:34 White Blood Count 9.8 # Red Blood Count 4.07 L Hemoglobin 12.6 L Hematocrit 35.8 L Mean Corpuscular 88.0 Volume Mean Corpuscular 31.0 Hemoglobin Mean Corpuscular 35.2 Hemoglobin Concent Red Cell 12.0 Distribution Width Platelet Count 211 # Mean Platelet Volume 9.7 Immature 0.500 H Granulocytes % Neutrophils % 70.5 Lymphocytes % 22.9 Monocytes % 5.3 Eosinophils % 0.4 Basophils % 0.4 Nucleated Red Blood 0.0 Cells % Immature 0.050 H Granulocytes # Neutrophils # 6.9 Lymphocytes # 2.3 Monocytes # 0.5 Eosinophils # 0.0 Basophils # 0.0 Nucleated Red Blood 0.0 Cells # Sodium Level 134 L Potassium Level 3.1 L Chloride Level 101 Carbon Dioxide Level 21 Anion Gap 12 Blood Urea Nitrogen 18 Creatinine 1.08 Est Glomerular > 60 Filtrat Rate mL/min Glucose Level 231 H Hemoglobin A1c 10.3 H Calcium Level 7.4 L Phosphorus Level 2.9 Magnesium Level 1.9 Total Bilirubin 0.7 Direct Bilirubin 0.00 Indirect Bilirubin 0.7 Aspartate Amino 39 Transf (AST/SGOT) Alanine 41 Aminotransferase (AL T/SGPT) Alkaline Phosphatase 110 Total Protein 5.0 #L Albumin 2.5 L Globulin 2.50 Albumin/Globulin 1.00 Ratio Triglycerides Level 671 H Cholesterol Level 92 L LDL Cholesterol, Calculated HDL Cholesterol 27 L Cholesterol/HDL 3.4 Ratio Thyroid Stimulating 2.380 Hormone (TSH) Bedside Glucose 307 H 203 Medications Medication Current Medications Amlodipine Besylate (Norvasc) 2.5 mg DAILY PO Last administered on 12/08/18 08:14; Admin Dose 2.5 MG; Start 12/07/18 at 09:00 Aspirin (Halfprin) 81 mg DAILY PO Last administered on 12/08/18 08:08; Admin Dose 81 MG; Start 12/07/18 at 09:00 Atorvastatin Calcium (Lipitor) 40 mg HS PO Last administered on 12/07/18 20:34; Admin Dose 40 MG; Start 12/07/18 at 21:00 Clopidogrel Bisulfate (plaVIX) 75 mg DAILY PO Last administered on 12/08/18 08:10; Admin Dose 75 MG; Start 12/07/18 at 09:00 Fluticasone/ Vilanterol (Breo Ellipta 100-25 Mcg Inh) 1 inh DAILY INH Last administered on 12/08/18 08:10; Admin Dose 1 INH; Start 12/07/18 at 14:00 Pantoprazole (Protonix Tab) 40 mg DAILY@06 PO Last administered on 12/08/18at 05:56; Admin Dose 40 MG; Start 12/08/18 at 06:00 IV Flush (NS 3 ml) 3 ml PER PROTOCOL IV ; Start 12/07/18 at 06:30 Docusate Sodium (Colace) 100 mg Q12H PRN PO .CONSTIPATION; Start 12/07/18 at 06:30 Bisacodyl (Dulcolax) 5 mg DAILY PRN PO .CONSTIPATION Last administered on 12/08/18at 10:38; Admin Dose 5 MG; Start 12/07/18 at 06:30 Chlordiazepoxide (Librium) 25 mg QID PO Last administered on 12/08/18 13:08; A dmin Dose 25 MG; Start 12/08/18 at 09:00; Stop 12/09/18 at 08:59 Chlordiazepoxide (Librium) 25 mg TID PO ; Start 12/09/18 at 09:00; Stop 12/10/18 at 08:59 Lorazepam (Ativan) 1 mg Q2H PRN PO CONTROL WITHDRAWAL SYMPTOMS Last administered on 12/07/18 12:28; Admin Dose 1 MG; Start 12/07/18 at 06:30 Lorazepam (Ativan) 2 mg Q2H PRN PO severe withdrawl; Start 12/07/18 at 06:30 Thiamine HCl (Vitamin B1) 200 mg DAILY PO Last administered on 12/08/18 08:09; Admin Dose 200 MG; Start 12/07/18 at 09:00; Stop 12/12/18 at 08:59 Folic Acid (Folic Acid) 1 mg DAILY PO Last administered on 12/08/18 08:08; Admin Dose 1 MG; Start 12/07/18 at 09:00 Multivitamins Therapeutic (Theragran) 1 tab DAILY PO Last administered on 12/08/18 08:10; Admin Dose 1 TAB; Start 12/07/18 at 09:00 Acetaminophen (Tylenol Tab) 650 mg Q4H PRN PO MILD PAIN(1-3)OR ELEVATED TEMP Last administered on 12/07/18 09:03; Admin Dose 650 MG; Start 12/07/18 at 06:30 Phenol (Cepastat Lozenge) 1 lozenge Q1H PRN MT SORE THROAT Last administered on 12/07/18 23:16; Admin Dose 1 LOZENGE; Start 12/07/18 at 06:30 Insulin Aspart (Novolog Insulin Pen) NOVOLOG *MILD* ALGORITHM WITH MEALS BEDTIME SC Last administered on 12/08/18 12:40; Admin Dose 2 UNIT; Start 12/07/18 at 18:00 Tramadol HCl (Ultram) 50 mg Q6H PRN PO MODERATE PAIN LEVEL 4-6 Last administered on 12/07/18 18:42; Admin Dose 50 MG; Start 12/07/18 at 15:30 Heparin Sodium (Porcine) (Heparin (5000 Units/1ml)) 5,000 unit BID SC Last administered on 12/08/18at 08:11; Admin Dose 5,000 UNIT; Start 12/07/18 at 21:00 Ondansetron HCl (Zofran Inj) 4 mg Q4H PRN IV NAUSEA AND/OR VOMITING Last administered on 12/08/18at 10:32; Admin Dose 4 MG; Start 12/07/18 at 21:00 Acetaminophen/ Hydrocodone Bitart ([place] (5/325)) 1 tab Q4H PRN PO MODERATE PAIN LEVEL 4-6 Last administered on 12/08/18at 10:33; Admin Dose 1 TAB; Start 12/07/18 at 21:00 Enalaprilat (Vasotec Iv) 1.25 mg Q6H PRN IV for systolic above 170. Last administered on 12/08/18at 08:15; Admin Dose 1.25 MG; Start 12/08/18 at 01:30 Insulin Aspart (Novolog Insulin Pen) 20 unit WITH MEALS SC Last administered on 12/08/18at 12:39; Admin Dose 20 UNIT; Start 12/08/18 at 12:00 Insulin Glargine (Lantus) 55 units HS SC ; Start 12/08/18 at 21:00 Metformin HCl (Glucophage) 500 mg BID WITH MEALS PO ; Start 12/08/18 at 18:00 Miscellaneous Information 1 ea NOTE XX ; Start 12/08/18 at 10:30 Glucose (Glutose) 15 gm Q15M PRN PO DECREASED GLUCOSE; Start 12/08/18 at 10:30 Glucose (Glutose) 22.5 gm Q15M PRN PO DECREASED GLUCOSE; Start 12/08/18 at 10:30 Dextrose (D50w Syringe) 25 ml Q15M PRN IV DECREASED GLUCOSE; Start 12/08/18 at 10:30 Dextrose (D50w Syringe) 50 ml Q15M PRN IV DECREASED GLUCOSE; Start 12/08/18 at 10:30 Glucagon (Glucagen) 1 mg Q15M PRN IM DECREASED GLUCOSE; Start 12/08/18 at 10:30 Glucose (Glutose) 15 gm Q15M PRN BUCCAL DECREASED GLUCOSE; Start 12/08/18 at 10:30 SHARDA ESQUIVEL MD Dec 08, 2018 16:56
[2018-12-08] MEDS: metFORMIN 500 MG TAB PO SCH (17:42)
[2018-12-08 19:47] VITALS: BP 152/70; PULSE 95; RESP 18
[2018-12-08] MEDS: traMADol 50 MG TAB PO PRN (20:04)
[2018-12-08] MEDS: ATORVASTATIN 20 MG TAB PO SCH (20:04)
[2018-12-08] MEDS: INSULIN GLARGINE [LANTus] (100 UNITS/ML) SYG SC SCH (20:09)
[2018-12-08] MEDS: CEPASTAT LOZENGE MT PRN (21:59)
[2018-12-09] MEDS: ACETAMINOPHEN 325 MG TAB PO PRN ×3 (02:08→22:15)
[2018-12-09 02:09] VITALS: BP 166/77; PULSE 100; RESP 18
[2018-12-09] MEDS: CEPASTAT LOZENGE MT PRN (02:09)
[2018-12-09] MEDS: PANTOPRAZOLE (EC) 40 MG TAB PO SCH (05:40)
[2018-12-09] MEDS: traMADol 50 MG TAB PO PRN (05:41)
[2018-12-09 07:26] VITALS: BP 158/78; PULSE 85; RESP 18
[2018-12-09] MEDS: FOLIC ACID 1 MG TAB PO SCH (08:03)
[2018-12-09] MEDS: ASPIRIN (EC) 81 MG TAB PO SCH (08:03)
[2018-12-09] MEDS: AMLODIPINE 2.5 MG TAB PO SCH (08:03)
[2018-12-09] MEDS: FLUTICASONE/VILANTEROL 100-25 INH SCH (08:03)
[2018-12-09] MEDS: CLOPIDOGREL 75 MG TAB PO SCH (08:03)
[2018-12-09] MEDS: MULTIVITAMINS THERAPEUTIC TAB PO SCH (08:04)
[2018-12-09] MEDS: metFORMIN 500 MG TAB PO SCH ×2 (08:04→17:47)
[2018-12-09] MEDS: THIAMINE 100 MG TAB PO SCH (08:04)
[2018-12-09] MEDS: INSULIN ASPART [NOVOLOG] 3 ML PEN SC SCH ×7 (08:10→20:51)
[2018-12-09] MEDS: HEPARIN 5,000 UNIT/1 ML VIAL SC SCH ×2 (08:11→21:01)
[2018-12-09] MEDS ORDERED: CHLORDIAZEPOXIDE 25 MG CAP PO SCH (09:00)
[2018-12-09] MEDS ORDERED: POTASSIUM CHLORIDE (SR) 20 MEQ TAB PO STA (10:52)
--- NOTE | 2018-12-09 12:33 | PDOCDIS ---
Discharge Instructions CONDITION [id number] Patient Condition: [id number] Good HOME CARE INSTRUCTIONS: [id number] Special Diet: [id number] DIABETIC ACTIVITY: [id number] Activity Restrictions: [id number] No Restrictions FOLLOW UP/APPOINTMENTS Follow-up Plan FOLLOW UP WITH YOUR PCP IN 1-2 WEEKS RADHA ROTHMAN Dec 09, 2018 12:33
[2018-12-09 13:35] VITALS: BP 146/66; PULSE 104; RESP 18
--- NOTE | 2018-12-09 14:14 | DS ---
Date/Time of Note Date/Time of Note DATE: 12/09/18 TIME: 14:11 Discharge Summary Admission/Discharge Info Admit Date/Time Dec 07, 2018 at 06:01 Discharge Date/Time December 09, 2018 Discharge Diagnosis 63 yo male with etoh use d/o, obesity, DMII uncontrolled presented with alcohol intoxication and hyperglycemia Etoh use d/o: - No signs of withdrawal - Thiamine, mvi, folate -Cessation advised DMII with hyperglycemia: -Compliance with home regimen Hypertension: -Controlled PAD, CAD: - continue plavix, statin Patient Condition: Good Hospital Course Patient is a 63-year-old male with diabetes, obesity, alcohol abuse who presents with hyperglycemia and alcohol intoxication. Patient showed no signs of withdrawal, patient was given insulin and appears the patient is noncompliant with home regimen. Alcohol cessation was advised the patient was stable for DC, the day of discharge patient's vitals, labs and physical exam are stable. Home Meds Active Scripts Furosemide* (Furosemide*) 20 Mg Tablet, 20 MG PO DAILY for 3 Days, #3 TAB Prov:FOX JAVED 09/02/18 Omeprazole* (Omeprazole*) 20 Mg Capsule., 20 MG PO DAILY, #30 CAP Prov:RENU WHITE 08/22/18 Levofloxacin* (Levaquin*) 500 Mg Tablet, 500 MG PO DAILY for 5 Days, #5 TAB Prov:RENU WHITE 08/22/18 Salmeterol Xinaf/Fluticasone* (Advair*) 250-50 Diskus Inhaler, 1 INH INH BID for 30 Days Prov:SANAZ DAVIS MD 04/15/17 Aspirin* (Aspirin* EC) 81 Mg Tablet., 81 MG PO DAILY for 30 Days Prov:SANAZ DAVIS MD 04/15/17 Atorvastatin* (Atorvastatin*) 40 Mg Tablet, 40 MG PO HS for 30 Days, TAB Prov:SANAZ DAVIS MD 04/15/17 Clopidogrel Bisulfate (Clopidogrel) 75 Mg Tablet, 75 MG PO DAILY for 30 Days, TAB Prov:SANAZ DAVIS MD 04/15/17 Amlodipine Besylate* (Norvasc*) 5 Mg Tablet, 2.5 MG PO DAILY for 30 Days, TAB Prov:SANAZ DAVIS MD 04/15/17 Insulin Aspart* (Novolog Insulin Pen*) 100 Unit/Ml Soln, 15 UNIT SC WITH MEALS for 30 Days, #1 SYR Prov:HERRERA,BRANDON [employer] 03/23/17 Metformin Hcl (Glucophage) 500 Mg Tablet, 1000 MG PO BID WITH MEALS for 30 Days, #60 TAB Prov:HERRERA,BRANDON [employer] ATTENDANT 03/23/17 Linagliptin (TRADJENTA) 5 Mg Tablet, 5 MG PO DAILY for 30 Days, #30 TAB Prov:HERRERA,BRANDON [employer] ATTENDANT 03/23/17 Insulin Glargine* (Lantus*) 100 Unit/Ml Soln, 45 UNIT SC HS for 30 Days, #1 SYR Prov:HERRERA,BRANDON [employer] ATTENDANT 03/23/17 Reported Medications Ergocalciferol (Vitamin D2) (VITAMIN D2) 2,000 Unit Tablet, 2000 UNIT PO DAILY, TAB 03/15/17 Follow-up Plan FOLLOW UP WITH YOUR PCP IN 1-2 WEEKS Primary Care Provider Not On Staff Doctor Time spent on discharge: > 30 minutes RADHA ROTHMAN Dec 09, 2018 14:14
[2018-12-09] MEDS: CEFTRIAXONE 1 GM/50 ML (PMX) 50 ML IVPB SCH (16:05)
[2018-12-09 19:59] VITALS: BP 156/71; PULSE 95; RESP 18
[2018-12-09 20:30] VITALS: PULSE 90
[2018-12-09] MEDS: ATORVASTATIN 20 MG TAB PO SCH (20:59)
[2018-12-09] MEDS: INSULIN GLARGINE [LANTus] (100 UNITS/ML) SYG SC SCH (22:20)
[2018-12-10] MEDS: CEPASTAT LOZENGE MT PRN ×2 (04:36→16:20)
[2018-12-10 04:43] VITALS: BP 171/81; PULSE 89; RESP 18
[2018-12-10] MEDS: PANTOPRAZOLE (EC) 40 MG TAB PO SCH (06:04)
[2018-12-10 06:08] VITALS: BP 110/56; PULSE 84; RESP 19
[2018-12-10 07:32] VITALS: BP 144/69; PULSE 79; RESP 20
[2018-12-10] MEDS: INSULIN ASPART [NOVOLOG] 3 ML PEN SC SCH ×7 (07:59→20:32)
[2018-12-10] MEDS: THIAMINE 100 MG TAB PO SCH (08:17)
[2018-12-10] MEDS: ASPIRIN (EC) 81 MG TAB PO SCH (08:17)
[2018-12-10] MEDS: AMLODIPINE 2.5 MG TAB PO SCH (08:17)
[2018-12-10] MEDS: metFORMIN 500 MG TAB PO SCH ×2 (08:17→17:52)
[2018-12-10] MEDS: FOLIC ACID 1 MG TAB PO SCH (08:17)
[2018-12-10] MEDS: MULTIVITAMINS THERAPEUTIC TAB PO SCH (08:17)
[2018-12-10] MEDS: CLOPIDOGREL 75 MG TAB PO SCH (08:17)
[2018-12-10] MEDS: FLUTICASONE/VILANTEROL 100-25 INH SCH (08:18)
[2018-12-10] MEDS: HEPARIN 5,000 UNIT/1 ML VIAL SC SCH ×2 (08:20→20:33)
[2018-12-10 13:37] VITALS: BP 123/68; PULSE 89; RESP 20
[2018-12-10] MEDS: CEFTRIAXONE 1 GM/50 ML (PMX) 50 ML IVPB SCH (14:49)
--- NOTE | 2018-12-10 15:03 | PN ---
Date/Time of Note Date/Time of Note DATE: 12/10/18 TIME: 14:58 Assessment/Plan VTE Prophylaxis Risk score (from Nsg)>0 risk: 3 SCD applied (from Nsg): Yes Pharmacological prophylaxis: NA/contraindicated Pharm contraindication: low risk/ambulating Lines/Catheters IV Catheter Type (from Nrsg): Saline Lock Urinary Cath still in place: No Assessment/Plan Hospital Course 63 yo male with etoh use d/o, obesity, DMII uncontrolled presented with alcohol intoxication and hyperglycemia Etoh use d/o: - No signs of withdrawal - Thiamine, mvi, folate -Cessation advised Sepsis secondary to UTI -Continue empiric Rocephin -Follow-up on cultures DMII with hyperglycemia and neuropathy -Compliance with home regimen -Patient's lower extremity pain is consistent with diabetic neuropathy, start gabapentin Hypertension: -Controlled PAD, CAD: - continue plavix, statin DC planning: Possible DC home tomorrow if leukocytosis improved Result Diagram: 12/10/1818 12/10/18 0718 Results 24hrs Laboratory Tests Test 12/09/18 17:43 12/09/18 20:10 12/09/18 20:42 12/09/18 21:08 Bedside Glucose 108 64 L Urine Color YELLOW Urine Clarity CLEAR Urine pH 7.0 Urine Specific 1.008 Blairs Urine Ketones NEGATIVE Urine Nitrite NEGATIVE Urine Bilirubin NEGATIVE Urine Urobilinogen NEGATIVE Urine Leukocyte 3+ H Esterase Urine Microscopic 14 H RBC Urine Microscopic 27 H WBC Urine Squamous MODERATE Epithelial Cells Urine Bacteria FEW A Urine Hemoglobin 3+ H Urine Glucose NEGATIVE Urine Total Protein 2+ H Glucose Level 86 # Test 12/09/18 21:16 12/09/18 21:32 12/10/18 07:18 12/10/18 07:55 Bedside Glucose 131 154 269 H White Blood Count 16.8 H Red Blood Count 3.84 L Hemoglobin 12.0 L Hematocrit 34.4 L Mean Corpuscular 89.6 Volume Mean Corpuscular 31.3 Hemoglobin Mean Corpuscular 34.9 Hemoglobin Concent Red Cell 12.8 Distribution Width Platelet Count 117 L Mean Platelet Volume 10.4 Immature 0.800 H Granulocytes % Neutrophils % 85.4 H Lymphocytes % 7.9 L Monocytes % 4.4 Eosinophils % 1.1 Basophils % 0.4 Nucleated Red Blood 0.0 Cells % Immature 0.140 H Granulocytes # Neutrophils # 14.3 H Lymphocytes # 1.3 Monocytes # 0.7 Eosinophils # 0.2 Basophils # 0.1 Nucleated Red Blood 0.0 Cells # Sodium Level 136 Potassium Level 3.5 Chloride Level 106 Carbon Dioxide Level 24 Anion Gap 6 Blood Urea Nitrogen 14 Creatinine 1.34 H Est Glomerular 54 L Filtrat Rate mL/min Glucose Level 276 #H Calcium Level 7.8 L Total Bilirubin 0.3 Direct Bilirubin 0.00 Indirect Bilirubin 0.3 Aspartate Amino 24 Transf (AST/SGOT) Alanine 29 Aminotransferase (AL T/SGPT) Alkaline Phosphatase 160 H Total Protein 5.5 L Albumin 2.5 L Globulin 3.00 Albumin/Globulin 0.83 Ratio Test 12/10/18 12:53 Bedside Glucose 204 Subjective 24 Hr Interval Summary Neurologic: other (Nerve pain in the legs) Exam/Review of Systems Exam Vitals Vital Signs Date Temp Pulse Resp B/P (MAP) Pulse Ox O2 O2 Flow FiO2 Time Delivery Rate 12/10/18 98.0 89 20 123/68 97 13:37 (86) 12/08/18 Room Air 14:00 Intake and Output 12/09/18 12/09/18 12/10/18 1515:00 23:00 07:00 IntakeIntake Total 2440 ml 1330 ml 240 ml OutputOutput Total 100 ml 250 ml 200 ml BalanceBalance 2340 ml 1080 ml 40 ml Constitutional: alert, oriented Respiratory: clear to auscultation Cardiovascular: regular rate and rhythm Gastrointestinal: soft; No distended Musculoskeletal: nl extremities to inspection Results Results 24hrs Laboratory Tests Test 12/09/18 17:43 12/09/18 20:10 12/09/18 20:42 12/09/18 21:08 Bedside Glucose 108 64 L Urine Color YELLOW Urine Clarity CLEAR Urine pH 7.0 Urine Specific 1.008 Blairs Urine Ketones NEGATIVE Urine Nitrite NEGATIVE Urine Bilirubin NEGATIVE Urine Urobilinogen NEGATIVE Urine Leukocyte 3+ H Esterase Urine Microscopic 14 H RBC Urine Microscopic 27 H WBC Urine Squamous MODERATE Epithelial Cells Urine Bacteria FEW A Urine Hemoglobin 3+ H Urine Glucose NEGATIVE Urine Total Protein 2+ H Glucose Level 86 # Test 12/09/18 21:16 12/09/18 21:32 12/10/18 07:18 12/10/18 07:55 Bedside Glucose 131 154 269 H White Blood Count 16.8 H Red Blood Count 3.84 L Hemoglobin 12.0 L Hematocrit 34.4 L Mean Corpuscular 89.6 Volume Mean Corpuscular 31.3 Hemoglobin Mean Corpuscular 34.9 Hemoglobin Concent Red Cell 12.8 Distribution Width Platelet Count 117 L Mean Platelet Volume 10.4 Immature 0.800 H Granulocytes % Neutrophils % 85.4 H Lymphocytes % 7.9 L Monocytes % 4.4 Eosinophils % 1.1 Basophils % 0.4 Nucleated Red Blood 0.0 Cells % Immature 0.140 H Granulocytes # Neutrophils # 14.3 H Lymphocytes # 1.3 Monocytes # 0.7 Eosinophils # 0.2 Basophils # 0.1 Nucleated Red Blood 0.0 Cells # Sodium Level 136 Potassium Level 3.5 Chloride Level 106 Carbon Dioxide Level 24 Anion Gap 6 Blood Urea Nitrogen 14 Creatinine 1.34 H Est Glomerular 54 L Filtrat Rate mL/min Glucose Level 276 #H Calcium Level 7.8 L Total Bilirubin 0.3 Direct Bilirubin 0.00 Indirect Bilirubin 0.3 Aspartate Amino 24 Transf (AST/SGOT) Alanine 29 Aminotransferase (AL T/SGPT) Alkaline Phosphatase 160 H Total Protein 5.5 L Albumin 2.5 L Globulin 3.00 Albumin/Globulin 0.83 Ratio Test 12/10/18 12:53 Bedside Glucose 204 Medications Medication Current Medications Amlodipine Besylate (Norvasc) 2.5 mg DAILY PO Last administered on 12/10/18 08:17; Admin Dose 2.5 MG; Start 12/07/18 at 09:00 Aspirin (Halfprin) 81 mg DAILY PO Last administered on 12/10/18 08:17; Admin Dose 81 MG; Start 12/07/18 at 09:00 Atorvastatin Calcium (Lipitor) 40 mg HS PO Last administered on 12/09/18 20:59; Admin Dose 40 MG; Start 12/07/18 at 21:00 Clopidogrel Bisulfate (plaVIX) 75 mg DAILY PO Last administered on 12/10/18 08:17; Admin Dose 75 MG; Start 12/07/18 at 09:00 Fluticasone/ Vilanterol (Breo Ellipta 100-25 Mcg Inh) 1 inh DAILY INH Last administered on 12/10/18 08:18; Admin Dose 1 INH; Start 12/07/18 at 14:00 Pantoprazole (Protonix Tab) 40 mg DAILY@06 PO Last administered on 12/10/18 06:04; Admin Dose 40 MG; Start 12/08/18 at 06:00 IV Flush (NS 3 ml) 3 ml PER PROTOCOL IV ; Start 12/07/18 at 06:30 Docusate Sodium (Colace) 100 mg Q12H PRN PO .CONSTIPATION; Start 12/07/18 at 06:30 Bisacodyl (Dulcolax) 5 mg DAILY PRN PO .CONSTIPATION Last administered on 12/08/18 10:38; Admin Dose 5 MG; Start 12/07/18 at 06:30 Lorazepam (Ativan) 2 mg Q2H PRN PO severe withdrawl Last administered on 12/08/18 21:06; Admin Dose 2 MG; Start 12/07/18 at 06:30 Thiamine HCl (Vitamin B1) 200 mg DAILY PO Last administered on 12/10/18 08:17; Admin Dose 200 MG; Start 12/07/18 at 09:00; Stop 12/12/18 at 08:59 Folic Acid (Folic Acid) 1 mg DAILY PO Last administered on 12/10/18 08:17; Admin Dose 1 MG; Start 12/07/18 at 09:00 Multivitamins Therapeutic (Theragran) 1 tab DAILY PO Last administered on 12/10/18 08:17; Admin Dose 1 TAB; Start 12/07/18 at 09:00 Acetaminophen (Tylenol Tab) 650 mg Q4H PRN PO MILD PAIN(1-3)OR ELEVATED TEMP Last administered on 12/09/18 22:15; Admin Dose 650 MG; Start 12/07/18 at 06:30 Phenol (Cepastat Lozenge) 1 lozenge Q1H PRN MT SORE THROAT Last administered on 12/10/18 04:36; Admin Dose 1 LOZENGE; Start 12/07/18 at 06:30 Insulin Aspart (Novolog Insulin Pen) NOVOLOG *MILD* ALGORITHM WITH MEALS BEDTIM E SC Last administered on 12/10/18 12:57; Admin Dose 2 UNIT; Start 12/07/18 at 18:00 Tramadol HCl (Ultram) 50 mg Q6H PRN PO MODERATE PAIN LEVEL 4-6 Last administered on 12/09/18 05:41; Admin Dose 50 MG; Start 12/07/18 at 15:30 Heparin Sodium (Porcine) (Heparin (5000 Units/1ml)) 5,000 unit BID SC Last administered on 12/10/18 08:20; Admin Dose 5,000 UNIT; Start 12/07/18 at 21:00 Ondansetron HCl (Zofran Inj) 4 mg Q4H PRN IV NAUSEA AND/OR VOMITING Last administered on 12/08/18at 10:32; Admin Dose 4 MG; Start 12/07/18 at 21:00 Enalaprilat (Vasotec Iv) 1.25 mg Q6H PRN IV for systolic above 170. Last administered on 12/08/18 08:15; Admin Dose 1.25 MG; Start 12/08/18 at 01:30 Insulin Glargine (Lantus) 55 units HS SC Last administered on 12/08/18 20:09; Admin Dose 55 UNITS; Start 12/08/18 at 21:00 Metformin HCl (Glucophage) 500 mg BID WITH MEALS PO Last administered on 12/10/18 08:17; Admin Dose 500 MG; Start 12/08/18 at 18:00 Miscellaneous Information 1 ea NOTE XX ; Start 12/08/18 at 10:30 Glucose (Glutose) 15 gm Q15M PRN PO DECREASED GLUCOSE; Start 12/08/18 at 10:30 Glucose (Glutose) 22.5 gm Q15M PRN PO DECREASED GLUCOSE; Start 12/08/18 at 10:30 Dextrose (D50w Syringe) 25 ml Q15M PRN IV DECREASED GLUCOSE; Start 12/08/18 at 10:30 Dextrose (D50w Syringe) 50 ml Q15M PRN IV DECREASED GLUCOSE; Start 12/08/18 at 10:30 Glucagon (Glucagen) 1 mg Q15M PRN IM DECREASED GLUCOSE; Start 12/08/18 at 10:30 Glucose (Glutose) 15 gm Q15M PRN BUCCAL DECREASED GLUCOSE; Start 12/08/18 at 10:30 Ceftriaxone Sodium 50 ml @ 100 mls/hr Q24H IVPB Last administered on 12/10/18 14:49; Admin Dose 100 MLS/HR; Start 12/09/18 at 15:30 Insulin Aspart (Novolog Insulin Pen) 15 unit WITH MEALS SC Last administered on 12/10/18 12:57; Admin Dose 15 UNIT; Start 12/10/18 at 18:00 RADHA ROTHMAN Dec 10, 2018 15:03
[2018-12-10] MEDS: GABAPENTIN 300 MG CAP PO SCH ×2 (15:55→21:34)
[2018-12-10 20:00] VITALS: BP 140/70; PULSE 86; RESP 19
[2018-12-10] MEDS: ATORVASTATIN 20 MG TAB PO SCH (20:27)
[2018-12-10] MEDS ORDERED: INSULIN GLARGINE [LANTus] (100 UNITS/ML) SYG SC SCH (21:00)
[2018-12-11 02:00] VITALS: BP 136/78; PULSE 85; RESP 19
[2018-12-11] MEDS: PANTOPRAZOLE (EC) 40 MG TAB PO SCH (05:55)
[2018-12-11 07:55] VITALS: BP 174/81; PULSE 78; RESP 18
[2018-12-11] MEDS: FOLIC ACID 1 MG TAB PO SCH (08:19)
[2018-12-11] MEDS: CLOPIDOGREL 75 MG TAB PO SCH (08:20)
[2018-12-11] MEDS: GABAPENTIN 300 MG CAP PO SCH ×2 (08:20→12:53)
[2018-12-11] MEDS: ASPIRIN (EC) 81 MG TAB PO SCH (08:20)
[2018-12-11] MEDS: AMLODIPINE 2.5 MG TAB PO SCH (08:20)
[2018-12-11] MEDS: FLUTICASONE/VILANTEROL 100-25 INH SCH (08:21)
[2018-12-11] MEDS: INSULIN ASPART [NOVOLOG] 3 ML PEN SC SCH ×4 (08:28→12:56)
[2018-12-11] MEDS: HEPARIN 5,000 UNIT/1 ML VIAL SC SCH (08:30)
[2018-12-11] MEDS: THIAMINE 100 MG TAB PO SCH (08:30)
[2018-12-11] MEDS: MULTIVITAMINS THERAPEUTIC TAB PO SCH (08:30)
[2018-12-11] MEDS: metFORMIN 500 MG TAB PO SCH (08:32)
[2018-12-11 14:05] VITALS: BP 159/74; PULSE 81; RESP 18
[2018-12-11] MEDS ORDERED: CIPR-193 PO (14:32)
[2018-12-11] MEDS ORDERED: GABA300C16 PO (14:32)
--- NOTE | 2018-12-11 14:55 | DS ---
Date/Time of Note Date/Time of Note DATE: 12/11/18 TIME: 14:53 Discharge Summary Admission/Discharge Info Admit Date/Time Dec 07, 2018 at 06:01 Discharge Date/Time December 11, 2018 Discharge Diagnosis Etoh use d/o: - No signs of withdrawal - Thiamine, mvi, folate -Cessation advised DMII with hyperglycemia and neuropathy -Compliance with home regimen -DC with gabapentin Hypertension: -Controlled PAD, CAD: - continue plavix, statin Sepsis secondary to UTI-improved -DC with Cipro -Status post Rocephin Patient Condition: Good Hospital Course Patient is a 63 yo male with etoh use d/o, obesity, DMII uncontrolled presented with alcohol intoxication and hyperglycemia. Patient had no evidence of alcohol withdrawal, patient sugars were controlled with insulin. Patient did report symptoms of neuropathy and was started gabapentin which appeared to help. Patient did have evidence of sepsis and was found to have UTI which was treated with Rocephin patient was stable for DC, on the day of discharge patient vitals, labs and physical exam are stable. Alcohol cessation was strongly advised. Home Meds Active Scripts Gabapentin* (Gabapentin*) 300 Mg Capsule, 300 MG PO TID, #90 CAP Prov:RADHA ROTHMAN 12/11/18 Ciprofloxacin Hcl* (Ciprofloxacin Hcl*) 250 Mg Tablet, 250 MG PO BID for 3 Days, #6 TAB Prov:RADHA ROTHMAN 12/11/18 Furosemide* (Furosemide*) 20 Mg Tablet, 20 MG PO DAILY for 3 Days, #3 TAB Prov:FOX JAVED 09/02/18 Omeprazole* (Omeprazole*) 20 Mg Capsule., 20 MG PO DAILY, #30 CAP Prov:RENU WHITE 08/22/18 Levofloxacin* (Levaquin*) 500 Mg Tablet, 500 MG PO DAILY for 5 Days, #5 TAB Prov:RENU WHITE 08/22/18 Salmeterol Xinaf/Fluticasone* (Advair*) 250-50 Diskus Inhaler, 1 INH INH BID for 30 Days Prov:SANAZ DAVIS MD 04/15/17 Aspirin* (Aspirin* EC) 81 Mg Tablet., 81 MG PO DAILY for 30 Days Prov:SANAZ DAVIS MD 04/15/17 Atorvastatin* (Atorvastatin*) 40 Mg Tablet, 40 MG PO HS for 30 Days, TAB Prov:SANAZ DAVIS MD 04/15/17 Clopidogrel Bisulfate (Clopidogrel) 75 Mg Tablet, 75 MG PO DAILY for 30 Days, TAB Prov:SANAZ DAVIS MD 04/15/17 Amlodipine Besylate* (Norvasc*) 5 Mg Tablet, 2.5 MG PO DAILY for 30 Days, TAB Prov:SANAZ DAVIS MD 04/15/17 Insulin Aspart* (Novolog Insulin Pen*) 100 Unit/Ml Soln, 15 UNIT SC WITH MEALS for 30 Days, #1 SYR Prov:HERRERA,BRANDON V. [employer]ANCE PHOTOGR[employer]HER 03/23/17 Metformin Hcl (Glucophage) 500 Mg Tablet, 1000 MG PO BID WITH MEALS for 30 Days, #60 TAB Prov:HERRERA,BRANDON V. [employer]ANCE PHOTOGR[employer]HER 03/23/17 Linagliptin (TRADJENTA) 5 Mg Tablet, 5 MG PO DAILY for 30 Days, #30 TAB Prov:HERRERA,BRANDON V. [employer]ELANCE PHOTOGRAPHER 03/23/17 Insulin Glargine* (Lantus*) 100 Unit/Ml Soln, 45 UNIT SC HS for 30 Days, #1 SYR Prov:HERRERA,BRANDON V. [employer]ELANCE PHOTOGRAPHER 03/23/17 Reported Medications Ergocalciferol (Vitamin D2) (VITAMIN D2) 2,000 Unit Tablet, 2000 UNIT PO DAILY, TAB 03/15/17 Follow-up Plan FOLLOW UP WITH YOUR PCP IN 1-2 WEEKS Primary Care Provider Not On Staff Doctor Time spent on discharge: > 30 minutes RADHA ROTHMAN Dec 11, 2018 14:55
--- NOTE | 2018-12-16 11:23 | PN ---
Date/Time of Note Date/Time of Note DATE: 12/16/18 TIME: 11:22 Assessment/Plan VTE Prophylaxis Risk score (from Nsg)>0 risk: 3 Lines/Catheters Urinary Cath still in place: MALLORY Smith NP Dec 16, 2018 11:23
== END 2018-12-11 15:50 | disposition home or self-care (01) | DRG 683 ==
LOC: E/R 22:34 → 2NE 12-07 06:01
PROVIDERS: ADMIT Family Medicine; ATTEND Internal Medicine
DX: N17.9 Acute kidney failure, unspecified (principal); E87.1 Hypo-osmolality and hyponatremia; E87.2 Acidosis; E11.65 Type 2 diabetes mellitus with hyperglycemia; E86.0 Dehydration; F10.129 Alcohol abuse with intoxication, unspecified; Y90.8 Blood alcohol level of 240 mg/100 ml or more; E87.6 Hypokalemia; I12.9 Hypertensive chronic kidney disease with stage 1 through stage 4 chronic kidney disease, or unspecified chronic kidney disease; E11.22 Type 2 diabetes mellitus with diabetic chronic kidney disease; N18.9 Chronic kidney disease, unspecified; Z91.14 Patient's other noncompliance with medication regimen; K21.9 Gastro-esophageal reflux disease without esophagitis; R10.84 Generalized abdominal pain; R11.2 Nausea with vomiting, unspecified; Z86.73 Personal history of transient ischemic attack (TIA), and cerebral infarction without residual deficits; K70.10 Alcoholic hepatitis without ascites
CPT/HCPCS: 36415; 71045; 80048; 80053; 80061; 80307; 81001; 82306; 82803; 82947; 82962; 83036; 83690; 83735; 84100; 84443; 85025; 87086; 96372; 96374; 97110; 97116; 97161; 97530; J0696; J1644; J1815; J2405; J3411; J7030

== ENCOUNTER 2018-12-15 11:14 | Inpatient (IN) | payer OTHER ==
[~2018-12-15] VITALS: Ht 167.6 cm; Wt 88.2 kg
[~2018-12-15 11:14] MED LIST changes: +CIPR-193 PO; +GABA300C16 PO
[2018-12-15] MEDS ORDERED: morphine 4 MG/ML VIAL IV STA (13:07)
[2018-12-15] MEDS ORDERED: ONDANSETRON 4 MG INJ IV STA (13:07)
[2018-12-15] MEDS ORDERED: SOD CHLORIDE 0.9% 1,000 ML IV STA (13:07)
--- NOTE | 2018-12-15 13:39 | ERD ---
ER Documentation Chief Complaint Chief Complaint dustin le swelling, bruises on body, dry mouth HPI This is a 63-year-old Finnish-speaking male with a past medical history of insulin-dependent diabetes mellitus. The patient presents to the emergency department with multiple complaints. He states for the past 1 month he has had swelling of his lower extremities but denies any calf tenderness or muscle spasms. Patient has no shortness of breath at rest or exertion. He denies any chest pain or pressure. Indicates he has been experiencing polydipsia and constantly feels that his mouth is dry. 2 days ago he noticed bruises on his body which included the lower abdomen and bilateral upper extremities. The patient denies any trauma. He states that he had been drinking a significant amount of alcohol over the past several weeks. He denies any blunt or penetrating head chest or abdominal trauma. He states he felt slightly dizzy over the past several days with a bandlike headache. He denies any neck pain. He also complains of abdominal pain which is most prominent in the left upper quadrant. Indicated that started 2 days prior to arrival. The pain is a sharp shooting pain that does not radiate to the back. The pain is 10 out of 10 in intensity in the abdomen. He denies any hemoptysis hematemesis or melanotic s tools. He denies any hematuria. He denies any polyuria. ROS All systems reviewed and are negative except as per history of present illness. Medications Home Meds Active Scripts Gabapentin* (Gabapentin*) 300 Mg Capsule, 300 MG PO TID, #90 CAP Prov:RADHA ROTHMAN 12/11/18 Ciprofloxacin Hcl* (Ciprofloxacin Hcl*) 250 Mg Tablet, 250 MG PO BID for 3 Days, #6 TAB Prov:RADHA ROTHMAN 12/11/18 Furosemide* (Furosemide*) 20 Mg Tablet, 20 MG PO DAILY for 3 Days, #3 TAB Prov:FOX JAVED 09/02/18 Omeprazole* (Omeprazole*) 20 Mg Capsule.dr, 20 MG PO DAILY, #30 CAP Prov:RENU WHITE 08/22/18 Levofloxacin* (Levaquin*) 500 Mg Tablet, 500 MG PO DAILY for 5 Days, #5 TAB Prov:RENU WHITE 08/22/18 Salmeterol Xinaf/Fluticasone* (Advair*) 250-50 Diskus Inhaler, 1 INH INH BID for 30 Days Prov:SANAZ DAVIS MD 04/15/17 Aspirin* (Aspirin* EC) 81 Mg Tablet.dr, 81 MG PO DAILY for 30 Days Prov:SANAZ DAVIS MD 04/15/17 Atorvastatin* (Atorvastatin*) 40 Mg Tablet, 40 MG PO HS for 30 Days, TAB Prov:SANAZ DAVIS MD 04/15/17 Clopidogrel Bisulfate (Clopidogrel) 75 Mg Tablet, 75 MG PO DAILY for 30 Days, TAB Prov:SANAZ DAVIS MD 04/15/17 Amlodipine Besylate* (Norvasc*) 5 Mg Tablet, 2.5 MG PO DAILY for 30 Days, TAB Prov:SANAZ DAVIS MD 04/15/17 Insulin Aspart* (Novolog Insulin Pen*) 100 Unit/Ml Soln, 15 UNIT SC WITH MEALS for 30 Days, #1 SYR Prov:HERRERA,BRANDON V. DETAIL DRAFTER 03/23/17 Metformin Hcl (Glucophage) 500 Mg Tablet, 1000 MG PO BID WITH MEALS for 30 Days, #60 TAB Prov:HERRERA,BRANDON V. DETAIL DRAFTER 03/23/17 Linagliptin (TRADJENTA) 5 Mg Tablet, 5 MG PO DAILY for 30 Days, #30 TAB Prov:HERRERA,BRANDON V. DETAIL DRAFTER 03/23/17 Insulin Glargine* (Lantus*) 100 Unit/Ml Soln, 45 UNIT SC HS for 30 Days, #1 SYR Prov:HERRERA,BRANDON V. DETAIL DRAFTER 03/23/17 Reported Medications Ergocalciferol (Vitamin D2) (VITAMIN D2) 2,000 Unit Tablet, 2000 UNIT PO DAILY, TAB 03/15/17 Allergies Allergies: Coded Allergies: No Known Allergy (Unverified , 08/30/18) PMhx/Soc History of Surgery: No Anesthesia Reaction: No Hx Neurological Disorder: No Hx Respiratory Disorders: No Hx Cardiac Disorders: No Hx Psychiatric Problems: No Hx Miscellaneous Medical Probl: Yes (DM , OBESITY, HTN , CAd, h.of chronic alcholism ) Hx Alcohol Use: Yes Hx Substance Use: No Hx Tobacco Use: No Smoking Status: Never smoker Physical Exam Vitals Vital Signs Date Temp Pulse Resp B/P (MAP) Pulse Ox O2 O2 Flow FiO2 Time Delivery Rate 12/15/18 98.1 89 20 136/62 93 Room Air 16:54 (86) 12/15/18 86 18 174/87 94 Room Air 14:47 (116) 12/15/18 98.6 96 20 181/79 93 11:17 (113) Physical Exam Constitutional:Well-developed. Well-nourished. HEENT:Normocephalic. Atraumatic.Pupils were equal round reactive to light. Moist mucous membranes.No tonsillar exudates. No nasal septal hematoma. No hemotympanum. No conjunctival pallor Neck: No nuchal rigidity. No lymphadenopathy. No posterior cervical spine tenderness or step-offs. Respiratory: Not using accessory muscles of respiration.Lungs were clear to auscultation bilaterally. No rhonchi. No rales. No wheezing. Cardiovascular: Regular rate regular rhythm.No murmurs. No rubs were appreciated.S1, S2 normal. Distal pulses are palpable 2+ bilaterally. GI: Abdomen was soft. Hepatomegaly. Tenderness in the left upper quadrant. Ecchymosis of the left upper quadrant. Ecchymosis in the right lower quadrant.. Mild distended. No pulsatile abdominal masses or bruits. No rebound. No guarding. Bowel sounds were present and normal. Muscle skeletal: Full range of motion of both the upper and lower extremities bilaterally.Normal muscle tone.No assymetrical calf tenderness or swelling. Skin: No petechia, no purpura. No lesions on the palms or the soles of the feet. No maculopapular rash. Ecchymosis in the distal left humerus with no tenderness or obvious bony deformities. Compartments are soft of the bilateral upper extremities. Ecchymosis in the right antecubital region. NEURO: Patient was alert, awake, orientated x3.No facial droop. Gait observed and normal with no ataxia.Speech had regular rate and rhythm. No focal neurological deficits. Result Diagram: 12/15/18 1325 12/15/18 1325 Results 24 hrs Laboratory Tests Test 12/15/18 12:14 12/15/18 13:25 12/15/18 13:54 Bedside Glucose 183 mg/dL White Blood Count 12.6 10^3/ul Red Blood Count 3.32 10^6/ul Hemoglobin 10.4 g/dl Hematocrit 31.2 % Mean Corpuscular Volume 94.0 fl Mean Corpuscular Hemoglobin 31.3 pg Mean Corpuscular 33.3 g/dl Hemoglobin Concent Red Cell Distribution Width 13.7 % Platelet Count 282 10^3/UL Mean Platelet Volume 9.6 fl Immature Granulocytes % 2.300 % Neutrophils % 77.9 % Lymphocytes % 12.3 % Monocytes % 6.8 % Eosinophils % 0.4 % Basophils % 0.3 % Nucleated Red Blood Cells % 0.2 /100WBC Immature Granulocytes # 0.290 10^3/ul Neutrophils # 9.8 10^3/ul Lymphocytes # 1.6 10^3/ul Monocytes # 0.9 10^3/ul Eosinophils # 0.1 10^3/ul Basophils # 0.0 10^3/ul Nucleated Red Blood Cells # 0.0 10^3/ul Absolute Reticulocyte Count 0.097 X10^6 Percent Reticulocyte Count 2.9 % Prothrombin Time 12.7 Sec Prothrombin Time Ratio 1.0 INR International Normalized Ratio 0.94 Activated Partial Thromboplast 26.8 Sec Time Sodium Level 140 mmol/L Potassium Level 4.1 mmol/L Chloride Level 109 mmol/L Carbon Dioxide Level 23 mmol/L Anion Gap 8 Blood Urea Nitrogen 15 mg/dl Creatinine 1.21 mg/dl Est Glomerular Filtrat Rate mL/min > 60 mL/min Glucose Level 215 mg/dl Calcium Level 9.0 mg/dl Iron Level 70 ug/dl Total Iron Binding Capacity 242 ug/dl Percent Iron Saturation 29 % SAT Ferritin 82.0 ng/ml Total Bilirubin 0.1 mg/dl Direct Bilirubin 0.00 mg/dl Indirect Bilirubin 0.1 mg/dl Aspartate Amino Transf (AST/SGOT) 30 IU/L Alanine 46 IU/L Aminotransferase (ALT/SGPT) Alkaline Phosphatase 135 IU/L Lactate Dehydrogenase 521 IU/L Troponin I 1.070 ng/ml Total Protein 6.0 g/dl Albumin 2.9 g/dl Globulin 3.10 g/dl Albumin/Globulin Ratio 0.93 Amylase Level 71 U/L Lipase 131 U/L Ammonia 14 umol/l Ethyl Alcohol Level < 10.0 mg/dl Current Medications Medications Dose Sig/Patricia Start Time Status Last (Trade) Ordered Route PRN Stop Time Admin Dose Reason Admin Sodium 1,000 ml @ Q1H STAT 12/15/18 DC 12/15/18 Chloride 1,000 mls/hr IV 13:07 13:38 4/28/19 14:06 Morphine 4 mg ONCE STAT 12/15/18 DC 12/15/18 Sulfate IV 13:07 13:38 (morphine) 12/15/18 13:09 Ondansetron 4 mg ONCE STAT 12/15/18 DC 12/15/18 HCl (Zofran IV 13:07 13:38 Inj) 12/15/18 13:09 IV Flush 10 ml STK-MED 12/15/18 DC (NS 10 ml) ONCE .ROUTE 14:18 12/15/18 14:19 Sodium 100 ml @ ud STK-MED 12/15/18 DC Chloride ONCE .ROUTE 14:18 12/15/18 14:19 Iodixanol 100 ml STK-MED 12/15/18 DC (Visipaque ONCE .ROUTE 14:18 Locm) 12/15/18 14:19 Aspirin 325 mg ONCE ONCE 12/15/18 DC 12/15/18 (Aspirin) PO 14:30 14:41 12/15/18 14:31 Magnesium 1,015.2 ml Q2H2M STAT 12/15/18 DC 12/15/18 Sulfate 2 @ 500 mls/ IV 15:09 15:38 gm/ hr 12/15/18 17:10 Multivitamins 10 ml/Thiamine HCl 100 mg/Folic Acid 1 mg/Sodium Chloride Ondansetron 4 mg ER BRIDGE 12/15/18 HCl (Zofran PRN IV 16:30 Inj) NAUSEA/VOMITI 12/16/18 16:29 NG 650 mg ER BRIDGE 12/15/18 Acetaminophen PRN PO 16:30 (Tylenol .MILD PAIN 12/16/18 16:29 Tab) 1-3 OR TEMP Sodium 1,000 ml @ Q20H IV 12/15/18 DC Chloride 50 mls/hr 16:51 12/15/18 17:13 IV Flush 3 ml PER 12/15/18 (NS 3 ml) PROTOCOL IV 17:00 Ondansetron 4 mg Q6H PRN 12/15/18 HCl (Zofran IV 17:00 Inj) NAUSEA/VOMITI NG 650 mg Q6H PRN 12/15/18 Acetaminophen PO .PAIN 1-3 17:00 (Tylenol OR TEMP Tab) 1 tab Q6H PRN 12/15/18 12/15/18 Acetaminophen PO .PAIN 4-6 17:00 17:00 / Hydrocodone Bitart ([place] (5/325)) Famotidine 20 mg BID@06,18 12/15/18 (Pepcid Iv) IV 18:00 Sucralfate 1 gm QID PO 12/15/18 (Carafate 17:00 Susp) 80 mg HS PO 12/15/18 Atorvastatin 21:00 Calcium (Lipitor) Discontinue ONCE ONCE 12/15/18 DC Miscellaneous current oral XX 17:00 sulfonylur... 12/15/18 17:05 Information (* Miscellaneous Pharmacy Order) Diagnostic 1 ea 02 XX 12/16/18 Test (Pha) 02:00 (Accu-Chek) Insulin 30 units DAILY@199912/15/18 Glargine SC 20:00 (Lantus) ONCE ONCE 12/15/18 DC Miscellaneous HYPOGLYCEMIA XX 17:00 PROTOCOL 12/15/18 17:05 Information w... (* Miscellaneous Pharmacy Order) Insulin NOVOLOG WITH MEALS 12/15/18 Aspart *MILD* BEDTIME SC 18:00 (Novolog ALGORITHM Insulin Pen) Discontinue ONCE ONCE 12/15/18 DC Miscellaneous all previ... XX 17:00 12/15/18 17:05 Information (* Miscellaneous Pharmacy Order) Ceftriaxone 50 ml @ Q24H IVPB 12/15/18 Sodium 100 mls/hr 17:15 1 ea NOTE XX 12/15/18 Miscellaneous 17:30 Information Glucose 15 gm Q15M PRN 12/15/18 (Glutose) PO DECREASED 17:30 GLUCOSE Glucose 22.5 gm Q15M PRN 12/15/18 (Glutose) PO DECREASED 17:30 GLUCOSE Dextrose 25 ml Q15M PRN 12/15/18 (D50w IV DECREASED 17:30 Syringe) GLUCOSE Dextrose 50 ml Q15M PRN 12/15/18 (D50w IV DECREASED 17:30 Syringe) GLUCOSE Glucagon 1 mg Q15M PRN 12/15/18 (Glucagen) IM DECREASED 17:30 GLUCOSE Glucose 15 gm Q15M PRN 12/15/18 (Glutose) BUCCAL 17:30 DECREASED GLUCOSE DC ONCE ONCE 12/15/18 DC Miscellaneous previous XX 17:30 hepa... 12/15/18 17:31 Information (* Miscellaneous Pharmacy Order) Heparin 4,000 unit ONCE ONCE 12/15/18 DC Sodium IV 17:30 (Porcine) 12/15/18 17:31 (Heparin (1000 Units/ml)) Heparin 4,000 unit PER PROTOCOL 12/15/18 Sodium PRN IV 17:30 (Porcine) aPTT<47 (Heparin (1000 Units/ml)) Heparin 250 ml @ PER 12/15/18 Sodium 10 mls/hr PROTOCOL IV 17:30 (Porcine) Aspirin 81 mg DAILY PO 12/16/18 (Aspirin) 09:00 1 tab Q5M PRN 12/15/18 Nitroglycerin SL ANGINA 17:30 (Nitroglyceri n (Sl Tab) 0.4 Mg) Morphine 2 mg Q4H PRN 12/15/18 Sulfate IV SEVERE 17:30 (morphine) PAIN LEVEL 7-10 Albuterol/ 3 ml Q6HWA RESP 12/15/18 Ipratropium THERAPY HHN 20:00 (Duoneb) Albuterol/ 3 ml Q2H RESP 12/15/18 Ipratropium THERAPY PRN 17:30 (Duoneb) HHN shortness of breath Procedures/MDM This patient presented to the emergency department with abdominal pain and was seen and evaluated by myself. My differential diagnosis included but was not limited to abdominal aortic aneurysm, appendicitis, pancreatitis, perforated peptic ulcer, perforated viscus, Boerhaave's syndrome or visceral pain such as diverticulitis, DKA, esophagitis, hepatitis or bowel obstruction. The patient was placed on a media monitor, continuous pulse oximetry, and IV access was established by nursing staff. The patient was given IV fluids as he did show signs of clinical dehydration. I obtained a 12-lead EKG tracing to rule for atypical myocardial fraction. 12 Lead EKG tracing ordered and reviewed by myself showed: Normal sinus rhythm of 91 bpm and no arrhythmia. [place] interval normal. QRS duration normal. No ST segment elevation No ST segment depression. No changes consistent with acute ischemia. The patient's troponin was elevated. He received aspirin. He did state he had intermittent mild chest discomfort but denied any chest pressure. The patient will be admitted for non-STEMI. I obtained a CT scan of the abdomen and there is no evidence of intra-abdominal hemorrhage or splenic laceration. The pain was localized to the left upper quadrant. I did feel the ecchymosis could be a result of easy bruising due to his history of alcoholism. His hemoglobin was within normal limits, there is no thrombocytopenia and no signs or symptoms to suggest ITP or DIC. The patient was also given a banana bag in order to prevent alcohol withdrawal and impending delirium tremors Departure Diagnosis: Primary Impression: Non-STEMI (non-ST elevated myocardial infarction) Additional Impressions: Contusion Encounter type: sequela Contusion area: upper arm Laterality: unspecified laterality Qualified Codes: S40.029S - Contusion of unspecified upper arm, sequela Abdominal pain Abdominal location: left upper quadrant Qualified Codes: R10.12 - Left upper quadrant pain Condition: Serious ELEAZAR AGUILAR MD Dec 15, 2018 13:39
[2018-12-15] MEDS ORDERED: SOD CHLORIDE 0.9% 100 ML ONE (14:18)
[2018-12-15] MEDS ORDERED: IODIXANOL LOCM 100 ML BTL ONE (14:18)
[2018-12-15] MEDS ORDERED: ASPIRIN 325 MG TAB PO ONE (14:30)
[2018-12-15] MEDS ORDERED: MAGNESIUM SULFATE 2 GM, MULTIVITAMINS 10 ML, THIAMINE 100 MG, FOLIC ACID 1 MG in SOD CH... IV STA (15:09)
[2018-12-15] MEDS ORDERED: ACETAMINOPHEN 325 MG TAB PO PRN ×2 (16:30→17:00)
[2018-12-15] MEDS ORDERED: ONDANSETRON 4 MG INJ IV PRN ×2 (16:30→17:00)
[2018-12-15] MEDS ORDERED: SOD CHLORIDE 0.9% 1,000 ML IV SCH (16:51)
[2018-12-15] MEDS ORDERED: NACL 0.9% 3 ML SYG IV SCH (17:00)
[2018-12-15] MEDS: HYDROCODONE/APAP (5/325) TAB PO PRN (17:00)
[2018-12-15] MEDS ORDERED: CEFTRIAXONE 1 GM/50 ML (PMX) 50 ML IVPB SCH (17:15)
[2018-12-15 17:29] VITALS: PULSE 96
[2018-12-15] MEDS ORDERED: NITROGLYCERIN (SL) 0.4 MG TAB SL PRN (17:30)
[2018-12-15] MEDS ORDERED: HEPARIN 1000 UNITS/ML 10 ML INJ IV ONE (17:30)
[2018-12-15] MEDS ORDERED: DEXTROSE 50% 50 ML SYRINGE IV PRN ×2 (17:30)
[2018-12-15] MEDS ORDERED: GLUCOSE GEL 15 GRAM TUBE BUCCAL PRN (17:30)
[2018-12-15] MEDS ORDERED: ALBUTEROL/IPRATROPIUM (NEB) 3 ML AMP HHN PRN (17:30)
[2018-12-15] MEDS ORDERED: GLUCAGON 1 MG INJ IM PRN (17:30)
[2018-12-15] MEDS ORDERED: GLUCOSE GEL 15 GRAM TUBE PO PRN ×2 (17:30)
--- NOTE | 2018-12-15 17:32 | HP ---
Date/Time of Note Date/Time of Note DATE: 12/15/18 TIME: 17:32 Assessment/Plan VTE Prophylaxis Pharmacological prophylaxis: heparin Lines/Catheters IV Catheter Type (from Nrsg): Urinary Cath still in place: No Assessment/Plan Hospital Course Patient is a male with a past medical history significant for alcohol abuse, coronary artery disease, history of CVA, insulin-dependent diabetes, hypertension, peripheral vascular disease and lower extremity neuropathy and swelling who presents to [facility] for worsening abdominal pain. Patient was recently discharged approximately 4 days ago from [facility] and where he was treated for UTI and alcoholism. According to patient and patient's son at bedside patient has not been drinking any alcohol since discharge however his abdominal pain which occasionally radiates to his left chest wall continues to get worse. Patient states that the abdominal pain has been going on for approximately 1 month as well as the chest pain that is intermittent. Patient states that he has also had worsening swelling in his lower extremity that has been going on for a couple months as well. Patient states that there are bruising on his abdomen that has been present for approx imately 3 to 4 days. Other than that patient states that he takes his medications. Patient currently denies significant shortness of breath, headache, dizziness. HPI is somewhat limited as I am uncertain if patient is accurately representing some of his symptoms. Patient appears to have a barbour po sitive review of systems which vary from very mild discomfort to extreme discomfort. Patient denies any red or black stool. Objective Physical exam General: Patient is laying in bed and answers questions appropriately Mentation: Patient is alert and oriented 4, Head: Normocephalic atraumatic Eyes: EOMI, pupils reactive to light Neck: Supple, nontender, midline Respiratory: Clear to auscultation bilaterally Cardiovascular: regular rate, no obvious murmurs Gastrointestinal: Mildly tender to palpation, bowel sounds heard. Large abdomen, small areas of bruising present on the anterior aspect Neurological: Moves all extremities spontaneously Musculoskeletal: +2 pitting edema lower extremity Assessment and plan Patient is a male with near barbour positive review of systems coming in with multiple complaints, #1 complaint being worsening abdominal pain with intermittent radiation to the chest Non-ST elevated NM -CT negative for bleed, CT abdomen with and with contrast negative for bleed, very mild bruising does not appear significant however will need to be careful as patient does have a small drop in hemoglobin from a few days ago. Will get fecal occult and monitor hemoglobin daily. Patient denying any black or red stool, PT/INR within normal limits -Cardiology consulted -Aspirin -Statin -Heparin drip -Trend troponins -Uncertain if patient has true chest pain or if more abdominal pain or versus atypical chest pain Abdominal pain -CT abdomen pelvis done with contrast is negative, lipase negative -Protonix Carafate for now -Possibly secondary to above on non-ST elevated NM -If continues, consult GI for possible EGD UTI -IV ceftriaxone as patient was discharged on oral antibiotics -Dirty catch but likely patient has some need of antibiotic given his recent UTI diagnosis, unlikely patient finished his course Anemia -Patient does have a chronic anemia however it is stable for now however is marginally lower than his previous discharge, will monitor closely -Iron panel returned back within normal limits -Fecal occult pending -Repeat hemoglobin tomorrow a.m. -Monitor closely for additional bleeding while on heparin Lower extremity edema -This has been an ongoing issue for the past few months -Obtain BNP -We will consider Lasix once more of patient's work-up returns including more troponins, no shortness of breath or severe pulmonary congestion on chest x-ray -Echo pending -venous ultrasound pending Diabetes mellitus -Insulin Lantus with sliding scale -We will hold off on mealtime for now as patient is going to be put on clears due to his abdominal pain Coronary artery disease -Continue home meds as tolerated Disposition -Patient appears to have multiple chronic issues including chronic abdominal pain and lower extremity swelling however the current emergent issue is his non- ST elevated NM, cardiology consulted, heparin drip started, continue to trend troponins. Result Diagram: 12/15/18 1325 12/15/18 1325 Results 24hrs Laboratory Tests Test 12/15/18 12:14 12/15/18 13:25 12/15/18 13:54 Bedside Glucose 183 White Blood Count 12.6 H Red Blood Count 3.32 L Hemoglobin 10.4 L Hematocrit 31.2 L Mean Corpuscular Volume 94.0 Mean Corpuscular Hemoglobin 31.3 Mean Corpuscular Hemoglobin Concent 33.3 Red Cell Distribution Width 13.7 Platelet Count 282 # Mean Platelet Volume 9.6 Immature Granulocytes % 2.300 H Neutrophils % 77.9 H Lymphocytes % 12.3 L Monocytes % 6.8 Eosinophils % 0.4 Basophils % 0.3 Nucleated Red Blood Cells % 0.2 H Immature Granulocytes # 0.290 H Neutrophils # 9.8 H Lymphocytes # 1.6 Monocytes # 0.9 Eosinophils # 0.1 Basophils # 0.0 Nucleated Red Blood Cells # 0.0 Absolute Reticulocyte Count 0.097 Percent Reticulocyte Count 2.9 H Prothrombin Time 12.7 Prothrombin Time Ratio 1.0 INR International Normalized Ratio 0.94 Activated Partial Thromboplast Time 26.8 Sodium Level 140 Potassium Level 4.1 Chloride Level 109 Carbon Dioxide Level 23 Anion Gap 8 Blood Urea Nitrogen 15 Creatinine 1.21 Est Glomerular Filtrat Rate mL/min > 60 Glucose Level 215 Calcium Level 9.0 Iron Level 70 Total Iron Binding Capacity 242 Percent Iron Saturation 29 Ferritin 82.0 Total Bilirubin 0.1 L Direct Bilirubin 0.00 Indirect Bilirubin 0.1 Aspartate Amino Transf (AST/SGOT) 30 Alanine Aminotransferase (ALT/SGPT) 46 Alkaline Phosphatase 135 H Lactate Dehydrogenase 521 Troponin I 1.070 *H Total Protein 6.0 L Albumin 2.9 L Globulin 3.10 Albumin/Globulin Ratio 0.93 Amylase Level 71 Lipase 131 Ammonia 14 Ethyl Alcohol Level < 10.0 H HPI/ROS Admit Date/Time Admit Date/Time PMH/Family/Social Past Medical History Medications Current Medications Magnesium Sulfate 2 gm/ Multivitamins 10 ml/Thiamine HCl 100 mg/Folic Acid 1 mg/Sodium Chloride 1,015.2 ml @ 500 mls/ hr Q2H2M STAT IV Last administered on 12/15/18at 15:38; Admin Dose 500 MLS/HR; Start 12/15/18 at 15:09; Stop 12/15/18 at 17:10 Ondansetron HCl (Zofran Inj) 4 mg ER BRIDGE PRN IV NAUSEA/VOMITING; Start 12/15/18 at 16:30; Stop 12/16/18 at 16:29 Acetaminophen (Tylenol Tab) 650 mg ER BRIDGE PRN PO .MILD PAIN 1-3 OR TEMP; Start 12/15/18 at 16:30; Stop 12/16/18 at 16:29 Sodium Chloride 1,000 ml @ 50 mls/hr Q20H IV ; Start 12/15/18 at 16:51; Status UNV IV Flush (NS 3 ml) 3 ml PER PROTOCOL IV ; Start 12/15/18 at 17:00; Status UNV Ondansetron HCl (Zofran Inj) 4 mg Q6H PRN IV NAUSEA/VOMITING; Start 12/15/18 at 17:00; Status UNV Acetaminophen (Tylenol Tab) 650 mg Q6H PRN PO .PAIN 1-3 OR TEMP; Start 12/15/18 at 17:00; Status UNV Acetaminophen/ Hydrocodone Bitart ([place] (5/325)) 1 tab Q6H PRN PO .PAIN 4-6; Start 12/15/18 at 17:00; Status UNV Coded Allergies: No Known Allergy (Unverified , 08/30/18) Family History Significant Family History: no pertinent family hx Social History Smoking Status: Never smoker Exam/Review of Systems Vital Signs Vitals Vital Signs Date Temp Pulse Resp B/P (MAP) Pulse Ox O2 O2 Flow FiO2 Time Delivery Rate 12/15/18 89 20 136/62 93 Room Air 16:54 (86) 12/15/18 98.6 11:17 RENU WHITE Dec 15, 2018 17:32
[2018-12-15 20:00] VITALS: PULSE 90
[2018-12-15] MEDS ORDERED: ALBUTEROL/IPRATROPIUM (NEB) 3 ML AMP HHN SCH (20:00)
[2018-12-15 20:11] VITALS: BP 194/89; PULSE 92; RESP 19
[2018-12-15] MEDS: SUCRALFATE (100 MG/ML) 10ML CUP PO SCH ×2 (21:00→21:31)
[2018-12-15] MEDS: morphine 2 MG INJ IV PRN (21:21)
[2018-12-15] MEDS: FAMOTIDINE 20 MG INJ IV SCH (21:28)
[2018-12-15] MEDS: ATORVASTATIN 80 MG TAB PO SCH (21:31)
[2018-12-15] MEDS: INSULIN ASPART [NOVOLOG] 3 ML PEN SC SCH (22:16)
[2018-12-15] MEDS: INSULIN GLARGINE [LANTus] (100 UNITS/ML) SYG SC SCH (22:17)
[2018-12-16] VITALS (13 sets, daily range): BP systolic 142–175; BP diastolic 66–75; PULSE 78–106; RESP 18–23
[2018-12-16] MEDS ORDERED: hydrALAzine 20 MG INJ IV ONE (00:30)
[2018-12-16] MEDS: ACCU-CHEK XX SCH (02:00)
[2018-12-16] MEDS: IPRATROPIUM (NEB) 0.5 MG/2.5 ML AMP HHN SCH ×4 (02:25→22:54)
[2018-12-16] MEDS: LEVALBUTEROL (NEB) 0.63 MG/3 ML AMP HHN SCH ×4 (02:26→22:54)
[2018-12-16] MEDS: morphine 2 MG INJ IV PRN ×3 (02:31→19:49)
[2018-12-16] MEDS: FAMOTIDINE 20 MG INJ IV SCH ×2 (05:35→17:05)
[2018-12-16] MEDS: HEPARIN 1000 UNITS/ML 10 ML INJ IV PRN ×2 (06:20→20:46)
[2018-12-16] MEDS: HEPARIN 25000 UNITS/250 ML 250 ML IV SCH ×4 (06:27→20:46)
[2018-12-16] MEDS: INSULIN ASPART [NOVOLOG] 3 ML PEN SC SCH ×4 (07:43→20:20)
[2018-12-16] MEDS: HYDROCODONE/APAP (5/325) TAB PO PRN (08:08)
[2018-12-16] MEDS ORDERED: ACET/BUTAL/CAFF TAB PO PRN (08:30)
[2018-12-16] MEDS: ASPIRIN 81 MG TAB PO SCH (09:27)
[2018-12-16] MEDS: SUCRALFATE (100 MG/ML) 10ML CUP PO SCH ×4 (09:27→20:10)
--- NOTE | 2018-12-16 11:25 | PN ---
Date/Time of Note Date/Time of Note DATE: 12/16/18 TIME: 11:25 Assessment/Plan VTE Prophylaxis Risk score (from Nsg)>0 risk: 6 SCD applied (from Nsg): Yes Pharmacological prophylaxis: heparin Lines/Catheters IV Catheter Type (from [facility] Urinary Cath still in place: No Assessment/Plan Hospital Course SUBJECTIVE: Complains of generalized body pain. OBJECTIVE: Physical Exam General: Obese, 63 year-old male lying in bed in no apparent distress. HEENT: Normocephalic, atraumatic. Eyes: Anicteric sclerae, conjunctivae clear. ENT: Nasal septum midline, oral mucosa moist. Neck: Short and obese. Respiratory: Bilaterally diminished breath sounds. Minimal use of accessory muscles of respiration. Expiratory wheezing. Cardiovascular: S1, S2 heard. Regular rate and rhythm. Abdomen: Distended. Bowel sounds positive in all 4 quadrants. Genitourinary: Deferred. Extremities: No cyanosis, no clubbing. Bilateral lower extremity 2+ pitting edema. Neurologic: Cranial nerves II through XII grossly intact. The patient is awake, alert, and oriented. Labs & Vitals per chart ASSESSMENT & PLAN This is a 63-year-old male with comorbidities including diabetes mellitus, left foot osteomyelitis, hypertension, obesity, chronic kidney disease, peripheral artery disease, and alcohol abuse. The patient came to the emergency room with chief complaint of abdominal pain, distension and occasional radiation of pain to the chest. He was noticed to have NSTEMI. 1. NSTEMI. -Continue Aspirin. -Continue heparin gtt. -Cardiology evaluation. 2. Acute respiratory failure. -Hypoxic. -Continue supplemental O2. -Continue inhaled bronchodilators. 3. Fluid overload. -Etiology could be multifactorial. -Pending 2D echocardiogram. -Known history of significant proteinuria, suggesting nephrotic syndrome. -Diuretics as clinically indicated. 4. Diabetes mellitus type 2. -Continue sliding scale insulin along with pre-meal insulin and basal insulin. -Hemoglobin A1c 10.7. 5. Peripheral artery disease. -Status post left tibioperoneal trunk balloon angioplasty, left femoral popliteal artery stenting, and left femoral popliteal artery balloon angioplasty on 03/22/2017. -Continue antiplatelet therapy. 6. Hypertension. -Continue antihypertensives. 7. Obesity. -BMI 31.5 kg/m -Weight reduction advised. 8. Normocytic, normochromic anemia. -Monitor H&H closely. 9. Alcohol abuse. -Last drink was approximately 5 days ago. -Continue multivitamins. 10. Fluids, electrolytes, and nutrition. -Carbohydrate controlled diet. 11. DVT prophylaxis. -Subcutaneous heparin. 12. Plan. -Continue heparin gtt. -Diuresis as clinically indicated. -Await cardiology evaluation. The patient was seen in collaboration with Dr. Gutierrez. Result Diagram: 12/16/18 0345 12/16/18 0345 Results 24hrs Laboratory Tests Test 12/15/18 12:14 12/15/18 13:25 12/15/18 13:54 12/15/18 18:11 Bedside Glucose 183 White Blood Count 12.6 H 12.8 H Red Blood Count 3.32 L 3.35 L Hemoglobin 10.4 L 10.5 L Hematocrit 31.2 L 31.9 L Mean Corpuscular 94.0 95.2 Volume Mean Corpuscular 31.3 31.3 Hemoglobin Mean Corpuscular 33.3 32.9 Hemoglobin Concen t Red Cell 13.7 14.1 Distribution Width Platelet Count 282 # 310 Mean Platelet 9.6 9.8 Volume Immature 2.300 H 2.000 H Granulocytes % Neutrophils % 77.9 H 78.5 H Lymphocytes % 12.3 L 11.9 L Monocytes % 6.8 6.6 Eosinophils % 0.4 0.6 Basophils % 0.3 0.4 Nucleated Red 0.2 H 0.0 Blood Cells % Immature 0.290 H 0.250 H Granulocytes # Neutrophils # 9.8 H 10.0 H Lymphocytes # 1.6 1.5 Monocytes # 0.9 0.8 Eosinophils # 0.1 0.1 Basophils # 0.0 0.1 Nucleated Red 0.0 0.0 Blood Cells # Absolute 0.097 Reticulocyte Count Percent 2.9 H Reticulocyte Count Prothrombin Time 12.7 12.9 Prothrombin Time 1.0 1.0 Ratio INR International 0.94 0.96 Normalized Ratio Activated 26.8 27.7 Partial Thrombopl ast Time Sodium Level 140 Potassium Level 4.1 Chloride Level 109 Carbon Dioxide 23 Level Anion Gap 8 Blood Urea 15 Nitrogen Creatinine 1.21 Est Glomerular > 60 Filtrat Rate mL/min Glucose Level 215 Calcium Level 9.0 Iron Level 70 Total Iron 242 Binding Capacity Percent Iron 29 Saturation Ferritin 82.0 Total Bilirubin 0.1 L Direct Bilirubin 0.00 Indirect 0.1 Bilirubin Aspartate Amino 30 Transf (AST/SGOT) Alanine 46 Aminotransferase (ALT/SGPT) Alkaline 135 H Phosphatase Lactate 521 Dehydrogenase Troponin I 1.070 *H 0.977 *H Total Protein 6.0 L Albumin 2.9 L Globulin 3.10 Albumin/Globulin 0.93 Ratio Amylase Level 71 Lipase 131 Ammonia 14 Ethyl Alcohol < 10.0 H Level B-Type 6660 H Natriuretic Peptide Test 12/15/18 21:41 12/15/18 23:08 12/16/18 01:57 12/16/18 03:45 Bedside Glucose 191 Hemoglobin 11.3 L 10.3 L Hematocrit 35.7 L 31.6 L Troponin I 0.995 *H Blood Gas Blood arterial Specimen Source Arterial Blood 12/16/2018 2:03:1 Date Drawn 3 AM Arterial Blood pH 7.445 (Temp corrected) Arterial Blood 25.8 L pCO2 (Temp correct) Arterial Blood 205.4 H pO2 (Temp corrected) Arterial Blood 17.3 L HCO3 Arterial Blood -5.3 L Base Excess Arterial Blood 98.8 H Oxygen Saturation Demond Test ACCEPTAB Arterial Blood Right Radial Gas Puncture Site Arterial 0.2 Blood Carboxyhemo globin Arterial Blood 0.3 Methemoglobin Blood Gas A-a O2 143.7 H Differential Oxyhemoglobin 98.3 Percent Blood Gas 37.0 Temperature Blood Gas MASK - BIPAP Modality FiO2 53.0 Blood Gas Notified Whom Blood Gas 12/16/2018 2:19:4 Notified Time 6 AM White Blood Count 14.1 H Red Blood Count 3.32 L Mean Corpuscular 95.2 Volume Mean Corpuscular 31.0 Hemoglobin Mean Corpuscular 32.6 Hemoglobin Concen t Red Cell 14.2 Distribution Width Platelet Count 343 Mean Platelet 9.6 Volume Immature 1.600 H Granulocytes % Neutrophils % 79.3 H Lymphocytes % 11.0 L Monocytes % 7.1 Eosinophils % 0.6 Basophils % 0.4 Nucleated Red 0.0 Blood Cells % Immature 0.220 H Granulocytes # Neutrophils # 11.2 H Lymphocytes # 1.6 Monocytes # 1.0 H Eosinophils # 0.1 Basophils # 0.1 Nucleated Red 0.0 Blood Cells # Activated 30.8 Partial Thrombopl ast Time Sodium Level 138 Potassium Level 4.4 Chloride Level 111 H Carbon Dioxide 22 Level Anion Gap 5 Blood Urea 12 Nitrogen Creatinine 1.14 Est Glomerular > 60 Filtrat Rate mL/min Glucose Level 165 Hemoglobin A1c 10.7 H Calcium Level 8.5 Magnesium Level 2.1 Total Bilirubin 0.1 L Direct Bilirubin 0.00 Indirect 0.1 Bilirubin Aspartate Amino 25 Transf (AST/SGOT) Alanine 47 Aminotransferase (ALT/SGPT) Alkaline 139 H Phosphatase Total Protein 6.1 Albumin 2.9 L Globulin 3.20 Albumin/Globulin 0.90 Ratio Triglycerides 236 H Level Cholesterol Level 105 LDL Cholesterol, 31 Calculated HDL Cholesterol 27 L Cholesterol/HDL 3.8 Ratio Thyroid 3.120 Stimulating Hormone (TSH) Test 12/16/18 03:50 12/16/18 07:25 Bedside Glucose 142 175 Exam/Review of Systems Exam Vitals Vital Signs Date Temp Pulse Resp B/P (MAP) Pulse Ox O2 O2 Flow FiO2 Time Delivery Rate 12/16/18 98.4 83 20 149/69 97 11:01 (95) 12/16/18 15.0 07:47 12/16/18 Venti Mask 07:46 12/16/18 50 03:35 Intake and Output 12/15/18 12/15/18 12/16/18 1515:00 23:00 07:00 IntakeIntake Total 500 ml OutputOutput Total 300 ml BalanceBalance 200 ml Results Results 24hrs Laboratory Tests Test 12/15/18 12:14 12/15/18 13:25 12/15/18 13:54 12/15/18 18:11 Bedside Glucose 183 White Blood Count 12.6 H 12.8 H Red Blood Count 3.32 L 3.35 L Hemoglobin 10.4 L 10.5 L Hematocrit 31.2 L 31.9 L Mean Corpuscular 94.0 95.2 Volume Mean Corpuscular 31.3 31.3 Hemoglobin Mean Corpuscular 33.3 32.9 Hemoglobin Concen t Red Cell 13.7 14.1 Distribution Width Platelet Count 282 # 310 Mean Platelet 9.6 9.8 Volume Immature 2.300 H 2.000 H Granulocytes % Neutrophils % 77.9 H 78.5 H Lymphocytes % 12.3 L 11.9 L Monocytes % 6.8 6.6 Eosinophils % 0.4 0.6 Basophils % 0.3 0.4 Nucleated Red 0.2 H 0.0 Blood Cells % Immature 0.290 H 0.250 H Granulocytes # Neutrophils # 9.8 H 10.0 H Lymphocytes # 1.6 1.5 Monocytes # 0.9 0.8 Eosinophils # 0.1 0.1 Basophils # 0.0 0.1 Nucleated Red 0.0 0.0 Blood Cells # Absolute 0.097 Reticulocyte Count Percent 2.9 H Reticulocyte Count Prothrombin Time 12.7 12.9 Prothrombin Time 1.0 1.0 Ratio INR International 0.94 0.96 Normalized Ratio Activated 26.8 27.7 Partial Thrombopl ast Time Sodium Level 140 Potassium Level 4.1 Chloride Level 109 Carbon Dioxide 23 Level Anion Gap 8 Blood Urea 15 Nitrogen Creatinine 1.21 Est Glomerular > 60 Filtrat Rate mL/min Glucose Level 215 Calcium Level 9.0 Iron Level 70 Total Iron 242 Binding Capacity Percent Iron 29 Saturation Ferritin 82.0 Total Bilirubin 0.1 L Direct Bilirubin 0.00 Indirect 0.1 Bilirubin Aspartate Amino 30 Transf (AST/SGOT) Alanine 46 Aminotransferase (ALT/SGPT) Alkaline 135 H Phosphatase Lactate 521 Dehydrogenase Troponin I 1.070 *H 0.977 *H Total Protein 6.0 L Albumin 2.9 L Globulin 3.10 Albumin/Globulin 0.93 Ratio Amylase Level 71 Lipase 131 Ammonia 14 Ethyl Alcohol < 10.0 H Level B-Type 6660 H Natriuretic Peptide Test 12/15/18 21:41 12/15/18 23:08 12/16/18 01:57 12/16/18 03:45 Bedside Glucose 191 Hemoglobin 11.3 L 10.3 L Hematocrit 35.7 L 31.6 L Troponin I 0.995 *H Blood Gas Blood arterial Specimen Source Arterial Blood 12/16/2018 2:03:1 Date Drawn 3 AM Arterial Blood pH 7.445 (Temp corrected) Arterial Blood 25.8 L pCO2 (Temp correct) Arterial Blood 205.4 H pO2 (Temp corrected) Arterial Blood 17.3 L HCO3 Arterial Blood -5.3 L Base Excess Arterial Blood 98.8 H Oxygen Saturation Demond Test ACCEPTAB Arterial Blood Right Radial Gas Puncture Site Arterial 0.2 Blood Carboxyhemo globin Arterial Blood 0.3 Methemoglobin Blood Gas A-a O2 143.7 H Differential Oxyhemoglobin 98.3 Percent Blood Gas 37.0 Temperature Blood Gas MASK - BIPAP Modality FiO2 53.0 Blood Gas Notified Whom Blood Gas 12/16/2018 2:19:4 Notified Time 6 AM White Blood Count 14.1 H Red Blood Count 3.32 L Mean Corpuscular 95.2 Volume Mean Corpuscular 31.0 Hemoglobin Mean Corpuscular 32.6 Hemoglobin Concen t Red Cell 14.2 Distribution Width Platelet Count 343 Mean Platelet 9.6 Volume Immature 1.600 H Granulocytes % Neutrophils % 79.3 H Lymphocytes % 11.0 L Monocytes % 7.1 Eosinophils % 0.6 Basophils % 0.4 Nucleated Red 0.0 Blood Cells % Immature 0.220 H Granulocytes # Neutrophils # 11.2 H Lymphocytes # 1.6 Monocytes # 1.0 H Eosinophils # 0.1 Basophils # 0.1 Nucleated Red 0.0 Blood Cells # Activated 30.8 Partial Thrombopl ast Time Sodium Level 138 Potassium Level 4.4 Chloride Level 111 H Carbon Dioxide 22 Level Anion Gap 5 Blood Urea 12 Nitrogen Creatinine 1.14 Est Glomerular > 60 Filtrat Rate mL/min Glucose Level 165 Hemoglobin A1c 10.7 H Calcium Level 8.5 Magnesium Level 2.1 Total Bilirubin 0.1 L Direct Bilirubin 0.00 Indirect 0.1 Bilirubin Aspartate Amino 25 Transf (AST/SGOT) Alanine 47 Aminotransferase (ALT/SGPT) Alkaline 139 H Phosphatase Total Protein 6.1 Albumin 2.9 L Globulin 3.20 Albumin/Globulin 0.90 Ratio Triglycerides 236 H Level Cholesterol Level 105 LDL Cholesterol, 31 Calculated HDL Cholesterol 27 L Cholesterol/HDL 3.8 Ratio Thyroid 3.120 Stimulating Hormone (TSH) Test 12/16/18 03:50 12/16/18 07:25 Bedside Glucose 142 175 Medications Medication Current Medications Ondansetron HCl (Zofran Inj) 4 mg ER BRIDGE PRN IV NAUSEA/VOMITING; Start 12/15/18 at 16:30; Stop 12/16/18 at 16:29 Acetaminophen (Tylenol Tab) 650 mg ER BRIDGE PRN PO .MILD PAIN 1-3 OR TEMP; Start 12/15/18 at 16:30; Stop 12/16/18 at 16:29 IV Flush (NS 3 ml) 3 ml PER PROTOCOL IV ; Start 12/15/18 at 17:00 Ondansetron HCl (Zofran Inj) 4 mg Q6H PRN IV NAUSEA/VOMITING; Start 12/15/18 at 17:00 Acetaminophen (Tylenol Tab) 650 mg Q6H PRN PO .PAIN 1-3 OR TEMP; Start 12/15/18 at 17:00 Acetaminophen/ Hydrocodone Bitart ([place] (5/325)) 1 tab Q6H PRN PO .PAIN 4-6 Last administered on 12/16/18at 08:08; Admin Dose 1 TAB; Start 12/15/18 at 17:00 Famotidine (Pepcid Iv) 20 mg BID@06,18 IV Last administered on 12/16/18at 05:35; Admin Dose 20 MG; Start 12/15/18 at 18:00 Sucralfate (Carafate Susp) 1 gm QID PO Last administered on 12/16/18at 09:27; Admin Dose 1 GM; Start 12/15/18 at 17:00 Atorvastatin Calcium (Lipitor) 80 mg HS PO Last administered on 12/15/18at 21:31; Admin Dose 80 MG; Start 12/15/18 at 21:00 Diagnostic Test (Pha) (Accu-Chek) 1 ea 02 XX ; Start 12/16/18 at 02:00 Insulin Glargine (Lantus) 30 units DAILY@2000 SC Last administered on 12/15/18at 22:17; Admin Dose 30 UNITS; Start 12/15/18 at 20:00 Insulin Aspart (Novolog Insulin Pen) NOVOLOG *MILD* ALGORITHM WITH MEALS BEDTIME SC Last administered on 12/16/18at 07:43; Admin Dose 1 UNIT; Start 12/15/18 at 18:00 Ceftriaxone Sodium 50 ml @ 100 mls/hr Q24H IVPB Last administered on 12/15/18at 21:21; Admin Dose 100 MLS/HR; Start 12/15/18 at 17:15 Miscellaneous Information 1 ea NOTE XX ; Start 12/15/18 at 17:30 Glucose (Glutose) 15 gm Q15M PRN PO DECREASED GLUCOSE; Start 12/15/18 at 17:30 Glucose (Glutose) 22.5 gm Q15M PRN PO DECREASED GLUCOSE; Start 12/15/18 at 17:30 Dextrose (D50w Syringe) 25 ml Q15M PRN IV DECREASED GLUCOSE; Start 12/15/18 at 17:30 Dextrose (D50w Syringe) 50 ml Q15M PRN IV DECREASED GLUCOSE; Start 12/15/18 at 17:30 Glucagon (Glucagen) 1 mg Q15M PRN IM DECREASED GLUCOSE; Start 12/15/18 at 17:30 Glucose (Glutose) 15 gm Q15M PRN BUCCAL DECREASED GLUCOSE; Start 12/15/18 at 17:30 Heparin Sodium (Porcine) (Heparin (1000 Units/ml)) 4,000 unit PER PROTOCOL PRN IV aPTT<47 Last administered on 12/16/18 06:20; Admin Dose 4,000 UNIT; Start 12/15/18 at 17:30 Heparin Sodium (Porcine) 250 ml @ 10 mls/hr PER PROTOCOL IV Last administered on 12/16/18 06:27; Admin Dose 13.5 MLS/HR; Start 12/15/18 at 17:30 Aspirin (Aspirin) 81 mg DAILY PO Last administered on 12/16/18 09:27; Admin Dose 81 MG; Start 12/16/18 at 09:00 Nitroglycerin (Nitroglycerin (Sl Tab) 0.4 Mg) 1 tab Q5M PRN SL ANGINA; Start 12/15/18 at 17:30 Morphine Sulfate (morphine) 2 mg Q4H PRN IV SEVERE PAIN LEVEL 7-10 Last administered on 12/16/18 07:23; Admin Dose 2 MG; Start 12/15/18 at 17:30 Albuterol/ Ipratropium (Duoneb) 3 ml Q2H RESP THERAPY PRN HHN shortness of breath; Start 12/15/18 at 17:30 Levalbuterol (Xopenex Neb) 0.63 mg Q6H RESP THERAPY HHN Last administered on 12/16/18 07:40; Admin Dose 0.63 MG; Start 12/16/18 at 02:00 Ipratropium [place] (Atrovent 0.02% (Neb)) 0.5 mg Q6H RESP THERAPY HHN Last administered on 12/16/18 07:40; Admin Dose 0.5 MG; Start 12/16/18 at 02:00 Levalbuterol (Xopenex Neb) 1.25 mg Q4H RESP THERAPY PRN HHN sob; Start 12/16/18 at 02:00 Acetaminophen/ Butalbital/ Caffeine (Fioricet) 1 tab Q6H PRN PO PAIN Last administered on 12/16/18 11:08; Admin Dose 1 TAB; Start 12/16/18 at 08:30 MALLORY AMOS NP Dec 16, 2018 11:25
--- NOTE | 2018-12-16 12:10 | RADRPT ---
Echocardiogram Report Patient Name: David KHAN ID: [id number] : 1955 (63y 1m)Study Date: 12/16/2018 7:07:08 AM Gender: MAccession #: [id number] Tech: Federico Hedrick [facility] Location: [id number] Ref.Physician: RENU WHITE Height(Cm): BSA: Weight(Kg): Quality: AdequateAccount #: Procedures: Echocardiographic Report: Transthoracic echocardiogram with complete 2D, M-Mode, and doppler examination. Indications: NSTEMI. Measurements: 2D/M Mode Doppler Measurement Value Normal Range Measurement Value Normal Range LVIDd 2D 4.5 [ 4.2 - 5.8 ] cm AV Peak Steven 1.5 [ 100.0 - 170.0 ] cm/sec LVIDs 2D 3.0 [ 2.5 - 4.0 ] cm AV Peak PG 10.0 [ 2.0 - 9.0 ] mmHg LVPWd 2D 1.4 [ 0.6 - 1.0 ] cm LVOT Peak Steven 1.2 [ 70.0 - 110.0 ] cm/sec IVSd 2D 1.3 [ 0.6 - 1.0 ] cm LVOT Peak PG 6.0 [ 2.0 - 6.0 ] mmHg AoR Diam 2D 3.4 [ 2.6 - 3.4 ] cm MV E Peak Steven 1.3 [ 60.0 - 130.0 ] cm/sec EDV 2D 91.5 [ 62.0 - 150.0 ] ml MV A Peak Steven 1.0 [ 100.0 - 120.0 ] cm/sec ESV 2D 35.3 [ 21.0 - 61.0 ] ml MV E/A 1.2 [ 0.8 - 1.5 ] ratio EF 2D 61.4 [ 52.0 - 72.0 ] percent MV Decel Time 173 [ 104 - 258 ] msec LA Dimen 2D 3.8 [ 3.0 - 4.0 ] cm Lat E` Steven 0.1 [ 10.0 - 15.0 ] cm/sec Lateral E/E` 13.1 [ 1.0 - 2.0 ] ratio MV E/A 1.2 [ 0.8 - 1.5 ] ratio TR Peak Steven 3.3 [ 100.0 - 280.0 ] cm/sec TR Peak PG 44.0 mmHg RVSP 52.0 [ 10.0 - 36.0 ] mmHg RA Pressure 8.0 mmHg Findings: Left Ventricle: Normal left ventricular systolic function. Normal left ventricular cavity size. Mild concentric left ventricular hypertrophy. Ejection fraction is visually estimated at 60 %. Tissue Doppler/Mitral Doppler indices are consistent with impaired relaxation (Stage I diastolic dysfunction). Right Ventricle: Normal right ventricular size. Normal right ventricular systolic function. Left Atrium: There is mild enlargement of left atrium. Right Atrium: The right atrium is normal in size. Mitral Valve: Normal appearance and function of the mitral valve with trace physiologic regurgitation. Aortic Valve: No significant aortic stenosis or insufficiency. Aortic sclerosis without significant stenosis. Tricuspid Valve: Normal appearance of the tricuspid valve. Estimated peak PA systolic pressure 52 mmHg. There is trace to mild tricuspid regurgitation. Pulmonic Valve: Normal pulmonic valve appearance. Pericardium: Normal pericardium with no significant pericardial effusion. Aorta: Normal aortic root. IVC: Dilated IVC with respiratory collapse consistent with elevated right atrial pressure. Conclusions: Normal left ventricular systolic function. Normal left ventricular cavity size. Mild concentric left ventricular hypertrophy. Ejection fraction is visually estimated at 60 %. Tissue Doppler/Mitral Doppler indices are consistent with impaired relaxation (Stage I diastolic dysfunction). Aortic sclerosis without significant stenosis. Estimated peak PA systolic pressure 52 mmHg. Dilated IVC with respiratory collapse consistent with elevated right atrial pressure. Electronically Signed By: Reynaldo Werner 2018-12-16 12:10:16 PDT
[2018-12-16] MEDS ORDERED: FUROSEMIDE 20 MG INJ IV ONE ×2 (12:30→13:00)
--- NOTE | 2018-12-16 12:43 | CONS ---
Assessment/Plan Assessment/Plan Hospital Course (Demo Recall) NSTEMI: Trop 1 and trending down. No active chest pain. On heparin drip. Needs cardiac cath for evaluation. Suspect significant disease, possibly surgical. Acute diastolic CHF: EF 60%. Decompensated on exam but mild PAD s/p left leg balloon angioplasty and stenting 2016 DM HTN HL Alcohol abuse: no cirrhosis or bleeding. -NPO after midnight. Cardiac cath tomorrow 1 pm -continue heparin drip -lasix 40mg IV x 1 -ASA, lipitor -increase to metoprolol 50mg BID -add imdur 30mg Consultation Date/Type/Reason Admit Date/Time Date of Consultation: Dec 16, 2018 Type of Consult Cardiology Reason for Consultation NSTEMI Requesting Provider: RENU WHITE Date/Time of Note DATE: 12/16/18 TIME: 12:35 Hx of Present Illness 63 yo M with a h/o DM, HTN, HL, PAD s/p left peripheral stenting 2016, who presented with left upper quadrant abdominal pain and chest pain. She was found to have an NSTEMI with trop 1.0 and trending down. His daughter assisted with translation by phone. The pt was just here for treatment of his alcohol abuse a few days ago. He has been having exertional dyspnea and some chest pressure recently. He also has leg edema and mild orthopnea for the past 5 days. He does not have a h/o prior AL or cardiac disease. There are comments about med noncompliance but after speaking with the pt and daughter he understands that should he need stenting, med compliance is mandatory. Currently no symptoms. per HPI Past Medical History per hPI Home Meds Active Scripts Gabapentin* (Gabapentin*) 300 Mg Capsule, 300 MG PO TID, #90 CAP Prov:RADHA ROTHMAN 12/11/18 Ciprofloxacin Hcl* (Ciprofloxacin Hcl*) 250 Mg Tablet, 250 MG PO BID for 3 Days, #6 TAB Prov:RADHA ROTHMAN 12/11/18 Furosemide* (Furosemide*) 20 Mg Tablet, 20 MG PO DAILY for 3 Days, #3 TAB Prov:FOX JAVED S. 09/02/18 Omeprazole* (Omeprazole*) 20 Mg Capsule.dr, 20 MG PO DAILY, #30 CAP Prov:RENU WHITE 08/22/18 Levofloxacin* (Levaquin*) 500 Mg Tablet, 500 MG PO DAILY for 5 Days, #5 TAB Prov:RENU WHITE 08/22/18 Salmeterol Xinaf/Fluticasone* (Advair*) 250-50 Diskus Inhaler, 1 INH INH BID for 30 Days Prov:SANAZ DAVIS MD 04/15/17 Aspirin* (Aspirin* EC) 81 Mg Tablet.dr, 81 MG PO DAILY for 30 Days Prov:SANAZ DAVIS MD 04/15/17 Atorvastatin* (Atorvastatin*) 40 Mg Tablet, 40 MG PO HS for 30 Days, TAB Prov:SANAZ DAVIS MD 04/15/17 Clopidogrel Bisulfate (Clopidogrel) 75 Mg Tablet, 75 MG PO DAILY for 30 Days, TAB Prov:SANAZ DAVIS MD 04/15/17 Amlodipine Besylate* (Norvasc*) 5 Mg Tablet, 2.5 MG PO DAILY for 30 Days, TAB Prov:SANAZ DAVIS MD 04/15/17 Insulin Aspart* (Novolog Insulin Pen*) 100 Unit/Ml Soln, 15 UNIT SC WITH MEALS for 30 Days, #1 SYR Prov:HERRERA,BRANDON [employer] 03/23/17 Metformin Hcl (Glucophage) 500 Mg Tablet, 1000 MG PO BID WITH MEALS for 30 Days, #60 TAB Prov:HERRERA,BRANDON [employer] 03/23/17 Linagliptin (TRADJENTA) 5 Mg Tablet, 5 MG PO DAILY for 30 Days, #30 TAB Prov:HERRERA,BRANDON [employer] 03/23/17 Insulin Glargine* (Lantus*) 100 Unit/Ml Soln, 45 UNIT SC HS for 30 Days, #1 SYR Prov:HERRERA,BRANDON [employer] 03/23/17 Reported Medications Ergocalciferol (Vitamin D2) (VITAMIN D2) 2,000 Unit Tablet, 2000 UNIT PO DAILY, TAB 03/15/17 Medications Current Medications Ondansetron HCl (Zofran Inj) 4 mg ER BRIDGE PRN IV NAUSEA/VOMITING; Start 12/15/18 at 16:30; Stop 12/16/18 at 16:29 Acetaminophen (Tylenol Tab) 650 mg ER BRIDGE PRN PO .MILD PAIN 1-3 OR TEMP; Start 12/15/18 at 16:30; Stop 12/16/18 at 16:29 IV Flush (NS 3 ml) 3 ml PER PROTOCOL IV ; Start 12/15/18 at 17:00 Ondansetron HCl (Zofran Inj) 4 mg Q6H PRN IV NAUSEA/VOMITING; Start 12/15/18 at 17:00 Acetaminophen (Tylenol Tab) 650 mg Q6H PRN PO .PAIN 1-3 OR TEMP; Start 12/15/18 at 17:00 Acetaminophen/ Hydrocodone Bitart (Mclean (5/325)) 1 tab Q6H PRN PO .PAIN 4-6 Last administered on 12/16/18at 08:08; Admin Dose 1 TAB; Start 12/15/18 at 17:00 Famotidine (Pepcid Iv) 20 mg BID@06,18 IV Last administered on 12/16/18at 05:35; Admin Dose 20 MG; Start 12/15/18 at 18:00 Sucralfate (Carafate Susp) 1 gm QID PO Last administered on 12/16/18at 12:05; Admin Dose 1 GM; Start 12/15/18 at 17:00 Atorvastatin Calcium (Lipitor) 80 mg HS PO Last administered on 12/15/18at 21:31; Admin Dose 80 MG; Start 12/15/18 at 21:00 Diagnostic Test (Pha) (Accu-Chek) 1 ea 02 XX ; Start 12/16/18 at 02:00 Insulin Glargine (Lantus) 30 units DAILY@2000 SC Last administered on 12/15/18at 22:17; Admin Dose 30 UNITS; Start 12/15/18 at 20:00 Insulin Aspart (Novolog Insulin Pen) NOVOLOG *MILD* ALGORITHM WITH MEALS BEDTIME SC Last administered on 12/16/18at 11:47; Admin Dose 2 UNIT; Start 12/15/18 at 18:00 Miscellaneous Information 1 ea NOTE XX ; Start 12/15/18 at 17:30 Glucose (Glutose) 15 gm Q15M PRN PO DECREASED GLUCOSE; Start 12/15/18 at 17:30 Glucose (Glutose) 22.5 gm Q15M PRN PO DECREASED GLUCOSE; Start 12/15/18 at 17:30 Dextrose (D50w Syringe) 25 ml Q15M PRN IV DECREASED GLUCOSE; Start 12/15/18 at 17:30 Dextrose (D50w Syringe) 50 ml Q15M PRN IV DECREASED GLUCOSE; Start 12/15/18 at 17:30 Glucagon (Glucagen) 1 mg Q15M PRN IM DECREASED GLUCOSE; Start 12/15/18 at 17:30 Glucose (Glutose) 15 gm Q15M PRN BUCCAL DECREASED GLUCOSE; Start 12/15/18 at 17:30 Heparin Sodium (Porcine) (Heparin (1000 Units/ml)) 4,000 unit PER PROTOCOL PRN IV aPTT<47 Last administered on 12/16/18at 06:20; Admin Dose 4,000 UNIT; Start 12/15/18 at 17:30 Heparin Sodium (Porcine) 250 ml @ 10 mls/hr PER PROTOCOL IV Last administered on 12/16/18at 12:28; Admin Dose 12.6 MLS/HR; Start 12/15/18 at 17:30 Aspirin (Aspirin) 81 mg DAILY PO Last administered on 12/16/18at 09:27; Admin Dose 81 MG; Start 12/16/18 at 09:00 Nitroglycerin (Nitroglycerin (Sl Tab) 0.4 Mg) 1 tab Q5M PRN SL ANGINA; Start 12/15/18 at 17:30 Morphine Sulfate (morphine) 2 mg Q4H PRN IV SEVERE PAIN LEVEL 7-10 Last administered on 12/16/18at 07:23; Admin Dose 2 MG; Start 12/15/18 at 17:30 Albuterol/ Ipratropium (Duoneb) 3 ml Q2H RESP THERAPY PRN HHN shortness of breath; Start 12/15/18 at 17:30 Levalbuterol (Xopenex Neb) 0.63 mg Q6H RESP THERAPY HHN Last administered on 12/16/18at 07:40; Admin Dose 0.63 MG; Start 12/16/18 at 02:00 Ipratropium [place] (Atrovent 0.02% (Neb)) 0.5 mg Q6H RESP THERAPY HHN Last administered on 12/16/18at 07:40; Admin Dose 0.5 MG; Start 12/16/18 at 02:00 Levalbuterol (Xopenex Neb) 1.25 mg Q4H RESP THERAPY PRN HHN sob; Start 12/16/18 at 02:00 Acetaminophen/ Butalbital/ Caffeine (Fioricet) 1 tab Q6H PRN PO PAIN Last administered on 12/16/18at 11:08; Admin Dose 1 TAB; Start 12/16/18 at 08:30 Multivitamins Therapeutic (Theragran) 1 tab DAILY PO ; Start 12/17/18 at 09:00 Metoprolol Tartrate (Lopressor) 50 mg BID PO ; Start 12/16/18 at 21:00 Isosorbide Mononitrate (Imdur) 30 mg DAILY PO ; Start 12/16/18 at 12:30; Status UNV Allergies: Coded Allergies: No Known Allergy (Unverified , 08/30/18) Social History Smoking Status: Never smoker Exam/Review of Systems Vital Signs Vitals Vital Signs Date Temp Pulse Resp B/P (MAP) Pulse Ox O2 O2 Flow FiO2 Time Delivery Rate 12/16/18 87 12:24 12/16/18 98.4 20 149/69 97 11:01 (95) 12/16/18 15.0 07:47 12/16/18 Venti Mask 07:46 12/16/18 50 03:35 Intake and Output 12/15/18 12/15/18 12/16/18 1515:00 23:00 07:00 IntakeIntake Total 500 ml OutputOutput Total 300 ml BalanceBalance 200 ml Exam Constitutional: alert, oriented Psych: no complaints, nl mood/affect Head: normocephalic, atraumatic Neck: jvd (8cm) Respiratory: crackles/rales (bases); No clear to auscultation Cardiovascular: regular rate and rhythm, edema (2+); No systolic murmur Gastrointestinal: soft, non-tender, distended Neurological: nl mental status, nl speech Additional Comments EKG: sinus, nonspecific TW changes Labs Result Diagram: 12/16/18 0345 12/16/18 0345 Results 24hrs Laboratory Tests Test 12/15/18 13:25 12/15/18 13:54 12/15/18 18:11 12/15/18 21:41 White Blood Count 12.6 H 12.8 H Red Blood Count 3.32 L 3.35 L Hemoglobin 10.4 L 10.5 L Hematocrit 31.2 L 31.9 L Mean Corpuscular 94.0 95.2 Volume Mean Corpuscular 31.3 31.3 Hemoglobin Mean Corpuscular 33.3 32.9 Hemoglobin Concen t Red Cell 13.7 14.1 Distribution Width Platelet Count 282 # 310 Mean Platelet 9.6 9.8 Volume Immature 2.300 H 2.000 H Granulocytes % Neutrophils % 77.9 H 78.5 H Lymphocytes % 12.3 L 11.9 L Monocytes % 6.8 6.6 Eosinophils % 0.4 0.6 Basophils % 0.3 0.4 Nucleated Red 0.2 H 0.0 Blood Cells % Immature 0.290 H 0.250 H Granulocytes # Neutrophils # 9.8 H 10.0 H Lymphocytes # 1.6 1.5 Monocytes # 0.9 0.8 Eosinophils # 0.1 0.1 Basophils # 0.0 0.1 Nucleated Red 0.0 0.0 Blood Cells # Absolute 0.097 Reticulocyte Count Percent 2.9 H Reticulocyte Count Prothrombin Time 12.7 12.9 Prothrombin Time 1.0 1.0 Ratio INR International 0.94 0.96 Normalized Ratio Activated 26.8 27.7 Partial Thrombopl ast Time Sodium Level 140 Potassium Level 4.1 Chloride Level 109 Carbon Dioxide 23 Level Anion Gap 8 Blood Urea 15 Nitrogen Creatinine 1.21 Est Glomerular > 60 Filtrat Rate mL/min Glucose Level 215 Calcium Level 9.0 Iron Level 70 Total Iron 242 Binding Capacity Percent Iron 29 Saturation Ferritin 82.0 Total Bilirubin 0.1 L Direct Bilirubin 0.00 Indirect 0.1 Bilirubin Aspartate Amino 30 Transf (AST/SGOT) Alanine 46 Aminotransferase (ALT/SGPT) Alkaline 135 H Phosphatase Lactate 521 Dehydrogenase Troponin I 1.070 *H 0.977 *H Total Protein 6.0 L Albumin 2.9 L Globulin 3.10 Albumin/Globulin 0.93 Ratio Amylase Level 71 Lipase 131 Ammonia 14 Ethyl Alcohol < 10.0 H Level B-Type 6660 H Natriuretic Peptide Bedside Glucose 191 Test 12/15/18 23:08 12/16/18 01:57 12/16/18 03:45 12/16/18 03:50 Hemoglobin 11.3 L 10.3 L Hematocrit 35.7 L 31.6 L Troponin I 0.995 *H Blood Gas Blood arterial Specimen Source Arterial Blood 12/16/2018 2:03:1 Date Drawn 3 AM Arterial Blood pH 7.445 (Temp corrected) Arterial Blood 25.8 L pCO2 (Temp correct) Arterial Blood 205.4 H pO2 (Temp corrected) Arterial Blood 17.3 L HCO3 Arterial Blood -5.3 L Base Excess Arterial Blood 98.8 H Oxygen Saturation Demond Test ACCEPTAB Arterial Blood Right Radial Gas Puncture Site Arterial 0.2 Blood Carboxyhemo globin Arterial Blood 0.3 Methemoglobin Blood Gas A-a O2 143.7 H Differential Oxyhemoglobin 98.3 Percent Blood Gas 37.0 Temperature Blood Gas MASK - BIPAP Modality FiO2 53.0 Blood Gas Notified Whom Blood Gas 12/16/2018 2:19:4 Notified Time 6 AM White Blood Count 14.1 H Red Blood Count 3.32 L Mean Corpuscular 95.2 Volume Mean Corpuscular 31.0 Hemoglobin Mean Corpuscular 32.6 Hemoglobin Concen t Red Cell 14.2 Distribution Width Platelet Count 343 Mean Platelet 9.6 Volume Immature 1.600 H Granulocytes % Neutrophils % 79.3 H Lymphocytes % 11.0 L Monocytes % 7.1 Eosinophils % 0.6 Basophils % 0.4 Nucleated Red 0.0 Blood Cells % Immature 0.220 H Granulocytes # Neutrophils # 11.2 H Lymphocytes # 1.6 Monocytes # 1.0 H Eosinophils # 0.1 Basophils # 0.1 Nucleated Red 0.0 Blood Cells # Activated 30.8 Partial Thrombopl ast Time Sodium Level 138 Potassium Level 4.4 Chloride Level 111 H Carbon Dioxide 22 Level Anion Gap 5 Blood Urea 12 Nitrogen Creatinine 1.14 Est Glomerular > 60 Filtrat Rate mL/min Glucose Level 165 Hemoglobin A1c 10.7 H Calcium Level 8.5 Magnesium Level 2.1 Total Bilirubin 0.1 L Direct Bilirubin 0.00 Indirect 0.1 Bilirubin Aspartate Amino 25 Transf (AST/SGOT) Alanine 47 Aminotransferase (ALT/SGPT) Alkaline 139 H Phosphatase Total Protein 6.1 Albumin 2.9 L Globulin 3.20 Albumin/Globulin 0.90 Ratio Triglycerides 236 H Level Cholesterol Level 105 LDL Cholesterol, 31 Calculated HDL Cholesterol 27 L Cholesterol/HDL 3.8 Ratio Thyroid 3.120 Stimulating Hormone (TSH) Bedside Glucose 142 Test 12/16/18 07:25 12/16/18 10:25 12/16/18 11:33 Bedside Glucose 175 210 Activated 69.4 H Partial Thrombopl ast Time Medications Medications Current Medications Ondansetron HCl (Zofran Inj) 4 mg ER BRIDGE PRN IV NAUSEA/VOMITING; Start 12/15/18 at 16:30; Stop 12/16/18 at 16:29 Acetaminophen (Tylenol Tab) 650 mg ER BRIDGE PRN PO .MILD PAIN 1-3 OR TEMP; Start 12/15/18 at 16:30; Stop 12/16/18 at 16:29 IV Flush (NS 3 ml) 3 ml PER PROTOCOL IV ; Start 12/15/18 at 17:00 Ondansetron HCl (Zofran Inj) 4 mg Q6H PRN IV NAUSEA/VOMITING; Start 12/15/18 at 17:00 Acetaminophen (Tylenol Tab) 650 mg Q6H PRN PO .PAIN 1-3 OR TEMP; Start 12/15/18 at 17:00 Acetaminophen/ Hydrocodone Bitart (Mclean (5/325)) 1 tab Q6H PRN PO .PAIN 4-6 Last administered on 12/16/18at 08:08; Admin Dose 1 TAB; Start 12/15/18 at 17:00 Famotidine (Pepcid Iv) 20 mg BID@06,18 IV Last administered on 12/16/18at 05:35; Admin Dose 20 MG; Start 12/15/18 at 18:00 Sucralfate (Carafate Susp) 1 gm QID PO Last administered on 12/16/18at 12:05; Admin Dose 1 GM; Start 12/15/18 at 17:00 Atorvastatin Calcium (Lipitor) 80 mg HS PO Last administered on 12/15/18at 21:31; Admin Dose 80 MG; Start 12/15/18 at 21:00 Diagnostic Test (Pha) (Accu-Chek) 1 ea 02 XX ; Start 12/16/18 at 02:00 Insulin Glargine (Lantus) 30 units DAILY@1999 SC Last administered on 12/15/18at 22:17; Admin Dose 30 UNITS; Start 12/15/18 at 20:00 Insulin Aspart (Novolog Insulin Pen) NOVOLOG *MILD* ALGORITHM WITH MEALS BEDTIME SC Last administered on 12/16/18at 11:47; Admin Dose 2 UNIT; Start 12/15/18 at 18:00 Miscellaneous Information 1 ea NOTE XX ; Start 12/15/18 at 17:30 Glucose (Glutose) 15 gm Q15M PRN PO DECREASED GLUCOSE; Start 12/15/18 at 17:30 Glucose (Glutose) 22.5 gm Q15M PRN PO DECREASED GLUCOSE; Start 12/15/18 at 17:30 Dextrose (D50w Syringe) 25 ml Q15M PRN IV DECREASED GLUCOSE; Start 12/15/18 at 17:30 Dextrose (D50w Syringe) 50 ml Q15M PRN IV DECREASED GLUCOSE; Start 12/15/18 at 17:30 Glucagon (Glucagen) 1 mg Q15M PRN IM DECREASED GLUCOSE; Start 12/15/18 at 17:30 Glucose (Glutose) 15 gm Q15M PRN BUCCAL DECREASED GLUCOSE; Start 12/15/18 at 17:30 Heparin Sodium (Porcine) (Heparin (1000 Units/ml)) 4,000 unit PER PROTOCOL PRN IV aPTT<47 Last administered on 12/16/18at 06:20; Admin Dose 4,000 UNIT; Start 12/15/18 at 17:30 Heparin Sodium (Porcine) 250 ml @ 10 mls/hr PER PROTOCOL IV Last administered on 12/16/18at 12:28; Admin Dose 12.6 MLS/HR; Start 12/15/18 at 17:30 Aspirin (Aspirin) 81 mg DAILY PO Last administered on 12/16/18at 09:27; Admin Dose 81 MG; Start 12/16/18 at 09:00 Nitroglycerin (Nitroglycerin (Sl Tab) 0.4 Mg) 1 tab Q5M PRN SL ANGINA; Start 12/15/18 at 17:30 Morphine Sulfate (morphine) 2 mg Q4H PRN IV SEVERE PAIN LEVEL 7-10 Last administered on 12/16/18at 07:23; Admin Dose 2 MG; Start 12/15/18 at 17:30 Albuterol/ Ipratropium (Duoneb) 3 ml Q2H RESP THERAPY PRN HHN shortness of breath; Start 12/15/18 at 17:30 Levalbuterol (Xopenex Neb) 0.63 mg Q6H RESP THERAPY HHN Last administered on 12/16/18at 07:40; Admin Dose 0.63 MG; Start 12/16/18 at 02:00 Ipratropium [place] (Atrovent 0.02% (Neb)) 0.5 mg Q6H RESP THERAPY HHN Last administered on 12/16/18at 07:40; Admin Dose 0.5 MG; Start 12/16/18 at 02:00 Levalbuterol (Xopenex Neb) 1.25 mg Q4H RESP THERAPY PRN HHN sob; Start 12/16/18 at 02:00 Acetaminophen/ Butalbital/ Caffeine (Fioricet) 1 tab Q6H PRN PO PAIN Last administered on 12/16/18at 11:08; Admin Dose 1 TAB; Start 12/16/18 at 08:30 Multivitamins Therapeutic (Theragran) 1 tab DAILY PO ; Start 12/17/18 at 09:00 Metoprolol Tartrate (Lopressor) 50 mg BID PO ; Start 12/16/18 at 21:00 Isosorbide Mononitrate (Imdur) 30 mg DAILY PO ; Start 12/16/18 at 12:30; Status JUAN M BARNES Dec 16, 2018 12:43
[2018-12-16] MEDS ORDERED: FUROSEMIDE 40 MG INJ IV ONE (13:00)
[2018-12-16] MEDS: ISOSORBIDE MONONITRATE(SR)30 MG TAB PO SCH (13:04)
[2018-12-16] MEDS: ATORVASTATIN 80 MG TAB PO SCH (20:09)
[2018-12-16] MEDS: METOPROLOL 25 MG TAB PO SCH (20:10)
[2018-12-16] MEDS: INSULIN GLARGINE [LANTus] (100 UNITS/ML) SYG SC SCH (20:20)
[2018-12-16] MEDS ORDERED: METOPROLOL 25 MG TAB PO SCH (21:00)
[2018-12-17] VITALS (31 sets, daily range): BP systolic 131–182; BP diastolic 57–86; PULSE 54–93; RESP 17–33
[2018-12-17] MEDS: ACCU-CHEK XX SCH (02:02)
[2018-12-17] MEDS: morphine 2 MG INJ IV PRN ×2 (02:44→07:05)
[2018-12-17] MEDS: IPRATROPIUM (NEB) 0.5 MG/2.5 ML AMP HHN SCH ×4 (03:25→23:28)
[2018-12-17] MEDS: LEVALBUTEROL (NEB) 0.63 MG/3 ML AMP HHN SCH ×4 (03:25→20:00)
[2018-12-17] MEDS: FAMOTIDINE 20 MG INJ IV SCH ×2 (06:41→17:43)
[2018-12-17] MEDS: INSULIN ASPART [NOVOLOG] 3 ML PEN SC SCH ×5 (08:06→21:46)
[2018-12-17] MEDS: ASPIRIN 81 MG TAB PO SCH (08:47)
[2018-12-17] MEDS: MULTIVITAMINS THERAPEUTIC TAB PO SCH (08:47)
[2018-12-17] MEDS: ISOSORBIDE MONONITRATE(SR)30 MG TAB PO SCH (08:48)
[2018-12-17] MEDS: METOPROLOL 25 MG TAB PO SCH ×2 (08:48→21:33)
[2018-12-17] MEDS: SUCRALFATE (100 MG/ML) 10ML CUP PO SCH ×4 (08:48→21:33)
--- NOTE | 2018-12-17 12:09 | PN ---
Date/Time of Note Date/Time of Note DATE: 12/17/18 TIME: 12:06 Assessment/Plan VTE Prophylaxis Risk score (from Ns)>0 risk: 3 SCD applied (from Ns): No SCD contraindicated: other Pharmacological prophylaxis: heparin (Gtt) Lines/Catheters IV Catheter Type (from [facility]): Peripheral IV Urinary Cath still in place: No Assessment/Plan Hospital Course SUBJECTIVE: Complains of anxiety. OBJECTIVE: Physical Exam General: Obese, 63 year-old male lying in bed in no apparent distress. HEENT: Normocephalic, atraumatic. Eyes: Anicteric sclerae, conjunctivae clear. ENT: Nasal septum midline, oral mucosa moist. Neck: Short and obese. Respiratory: Bilaterally diminished breath sounds. Minimal use of accessory muscles of respiration. Cardiovascular: S1, S2 heard. Regular rate and rhythm. Abdomen: Distended. Bowel sounds positive in all 4 quadrants. Genitourinary: Deferred. Extremities: No cyanosis, no clubbing. Bilateral lower extremity 2+ pitting edema. Neurologic: Cranial nerves II through XII grossly intact. The patient is awake, alert, and oriented. Labs & Vitals per chart ASSESSMENT & PLAN This is a 63-year-old male with comorbidities including diabetes mellitus, left foot osteomyelitis, hypertension, obesity, chronic kidney disease, peripheral artery disease, and alcohol abuse. The patient came to the emergency room with chief complaint of abdominal pain, distension and occasional radiation of pain to the chest. He was noticed to have NSTEMI. 1. NSTEMI. -Continue Aspirin. -Continue heparin gtt. -Plan for [facility] today. 2. Acute respiratory failure. -Hypoxic. -Continue supplemental O2. -Continue inhaled bronchodilators. 3. Fluid overload. -Etiology could be multifactorial. -2D echocardiogram showing preserved LVEF. -Known history of significant proteinuria, suggesting nephrotic syndrome. -Diuretics as clinically indicated. 4. Diabetes mellitus type 2. -Continue sliding scale insulin along with pre-meal insulin and basal insulin. -Hemoglobin A1c 10.7. 5. Peripheral artery disease. -Status post left tibioperoneal trunk balloon angioplasty, left femoral popliteal artery stenting, and left femoral popliteal artery balloon angioplasty on 03/22/2017. -Continue antiplatelet therapy. 6. Hypertension. -Continue antihypertensives. 7. Pulmonary hypertension. -PA systolic pressure of 52 mm Hg. -Continue supplemental O2. 8. Obesity. -BMI 31.5 kg/m -Weight reduction advised. 9. Normocytic, normochromic anemia. -Monitor H&H closely. 10. Alcohol abuse. -Last drink was approximately 5 days ago. -Continue multivitamins. 11. Generalized anxiety. -PRN benzodiazepines. 12. Fluids, electrolytes, and nutrition. -Carbohydrate controlled diet. 13. DVT prophylaxis. -Heparin gtt. 14. Plan. -Continue heparin gtt. -Diuresis as clinically indicated. -Await [facility]. The patient was seen in collaboration with Dr. Gutierrez. Result Diagram: 12/17/18 0630 12/17/18 0630 Results 24hrs Laboratory Tests Test 12/16/18 12:49 12/16/18 13:45 12/16/18 17:05 12/16/18 18:22 Creatine Kinase 106 Creatine Kinase 4.4 Index Creatinine Kinase MB 4.62 H (Mass) Troponin I 0.771 *H Urine Color YELLOW Urine Clarity CLEAR Urine pH 5.0 Urine Specific 1.013 [place] Urine Ketones NEGATIVE Urine Nitrite NEGATIVE Urine Bilirubin NEGATIVE Urine Urobilinogen NEGATIVE Urine Leukocyte NEGATIVE Esterase Urine Microscopic 3 RBC Urine Microscopic 1 WBC Urine Hemoglobin NEGATIVE Urine Glucose 2+ H Urine Total Protein 2+ H Urine Opiates Screen POSITIVE Urine Barbiturates POSITIVE Urine Amphetamines NEGATIVE Screen Urine POSITIVE Benzodiazepines Screen Urine Cocaine Screen NEGATIVE Urine Cannabinoids NEGATIVE Bedside Glucose 236 H Activated 45.8 H Partial Thromboplast Time Test 12/16/18 20:06 12/17/18 02:00 12/17/18 02:59 12/17/18 06:30 Bedside Glucose 339 H 233 H Activated 42.3 H Partial Thromboplast Time White Blood Count 9.8 # Red Blood Count 3.20 L Hemoglobin 9.7 L Hematocrit 30.1 L Mean Corpuscular 94.1 Volume Mean Corpuscular 30.3 Hemoglobin Mean Corpuscular 32.2 Hemoglobin Concent Red Cell 13.8 Distribution Width Platelet Count 361 Mean Platelet Volume 9.9 Immature 1.100 H Granulocytes % Neutrophils % 72.3 Lymphocytes % 17.4 Monocytes % 7.3 Eosinophils % 1.4 Basophils % 0.5 Nucleated Red Blood 0.2 H Cells % Immature 0.110 H Granulocytes # Neutrophils # 7.1 Lymphocytes # 1.7 Monocytes # 0.7 Eosinophils # 0.1 Basophils # 0.1 Nucleated Red Blood 0.0 Cells # Sodium Level 137 Potassium Level 4.2 Chloride Level 106 Carbon Dioxide Level 25 Anion Gap 6 Blood Urea Nitrogen 14 Creatinine 1.13 Est Glomerular > 60 Filtrat Rate mL/min Glucose Level 211 Calcium Level 8.3 L Phosphorus Level 3.8 Magnesium Level 2.0 Troponin I 0.455 *H Test 12/17/18 07:57 Bedside Glucose 207 Exam/Review of Systems Exam Vitals Vital Signs Date Temp Pulse Resp B/P (MAP) Pulse Ox O2 O2 Flow FiO2 Time Delivery Rate 12/17/18 97.6 65 22 131/58 96 Mask 11:54 (82) 12/17/18 6.0 08:43 12/16/18 36 22:59 Intake and Output 12/16/18 12/16/18 12/17/18 1414:59 22:59 06:59 IntakeIntake Total 1356.6 ml 250 ml OutputOutput Total 100 ml 300 ml BalanceBalance 1256.6 ml -50 ml Results Results 24hrs Laboratory Tests Test 12/16/18 12:49 12/16/18 13:45 12/16/18 17:05 12/16/18 18:22 Creatine Kinase 106 Creatine Kinase 4.4 Index Creatinine Kinase MB 4.62 H (Mass) Troponin I 0.771 *H Urine Color YELLOW Urine Clarity CLEAR Urine pH 5.0 Urine Specific 1.013 [place] Urine Ketones NEGATIVE Urine Nitrite NEGATIVE Urine Bilirubin NEGATIVE Urine Urobilinogen NEGATIVE Urine Leukocyte NEGATIVE Esterase Urine Microscopic 3 RBC Urine Microscopic 1 WBC Urine Hemoglobin NEGATIVE Urine Glucose 2+ H Urine Total Protein 2+ H Urine Opiates Screen POSITIVE Urine Barbiturates POSITIVE Urine Amphetamines NEGATIVE Screen Urine POSITIVE Benzodiazepines Screen Urine Cocaine Screen NEGATIVE Urine Cannabinoids NEGATIVE Bedside Glucose 236 H Activated 45.8 H Partial Thromboplast Time Test 12/16/18 20:06 12/17/18 02:00 12/17/18 02:59 12/17/18 06:30 Bedside Glucose 339 H 233 H Activated 42.3 H Partial Thromboplast Time White Blood Count 9.8 # Red Blood Count 3.20 L Hemoglobin 9.7 L Hematocrit 30.1 L Mean Corpuscular 94.1 Volume Mean Corpuscular 30.3 Hemoglobin Mean Corpuscular 32.2 Hemoglobin Concent Red Cell 13.8 Distribution Width Platelet Count 361 Mean Platelet Volume 9.9 Immature 1.100 H Granulocytes % Neutrophils % 72.3 Lymphocytes % 17.4 Monocytes % 7.3 Eosinophils % 1.4 Basophils % 0.5 Nucleated Red Blood 0.2 H Cells % Immature 0.110 H Granulocytes # Neutrophils # 7.1 Lymphocytes # 1.7 Monocytes # 0.7 Eosinophils # 0.1 Basophils # 0.1 Nucleated Red Blood 0.0 Cells # Sodium Level 137 Potassium Level 4.2 Chloride Level 106 Carbon Dioxide Level 25 Anion Gap 6 Blood Urea Nitrogen 14 Creatinine 1.13 Est Glomerular > 60 Filtrat Rate mL/min Glucose Level 211 Calcium Level 8.3 L Phosphorus Level 3.8 Magnesium Level 2.0 Troponin I 0.455 *H Test 12/17/18 07:57 Bedside Glucose 207 Medications Medication Current Medications IV Flush (NS 3 ml) 3 ml PER PROTOCOL IV ; Start 12/15/18 at 17:00 Ondansetron HCl (Zofran Inj) 4 mg Q6H PRN IV NAUSEA/VOMITING Last administered on 12/17/18 08:08; Admin Dose 4 MG; Start 12/15/18 at 17:00 Acetaminophen (Tylenol Tab) 650 mg Q6H PRN PO .PAIN 1-3 OR TEMP; Start 12/15/18 at 17:00 Acetaminophen/ Hydrocodone Bitart ([place] (5/325)) 1 tab Q6H PRN PO .PAIN 4-6 Last administered on 12/16/18 08:08; Admin Dose 1 TAB; Start 12/15/18 at 17:00 Famotidine (Pepcid Iv) 20 mg BID@06,18 IV Last administered on 12/17/18 06:41; Admin Dose 20 MG; Start 12/15/18 at 18:00 Sucralfate (Carafate Susp) 1 gm QID PO Last administered on 12/17/18 08:48; Admin Dose 1 GM; Start 12/15/18 at 17:00 Atorvastatin Calcium (Lipitor) 80 mg HS PO Last administered on 12/16/18 20:09; Admin Dose 80 MG; Start 12/15/18 at 21:00 Diagnostic Test (Pha) (Accu-Chek) 1 ea 02 XX Last administered on 12/17/18 02:02; Admin Dose 1 EA; Start 12/16/18 at 02:00 Insulin Glargine (Lantus) 30 units DAILY@2000 SC Last administered on 12/16/18 20:20; Admin Dose 30 UNITS; Start 12/15/18 at 20:00 Insulin Aspart (Novolog Insulin Pen) NOVOLOG *MILD* ALGORITHM WITH MEALS BEDTIME SC Last administered on 12/17/18 08:06; Admin Dose 2 UNIT; Start 12/15/18 at 18:00 Miscellaneous Information 1 ea NOTE XX ; Start 12/15/18 at 17:30 Glucose (Glutose) 15 gm Q15M PRN PO DECREASED GLUCOSE; Start 12/15/18 at 17:30 Glucose (Glutose) 22.5 gm Q15M PRN PO DECREASED GLUCOSE; Start 12/15/18 at 17:30 Dextrose (D50w Syringe) 25 ml Q15M PRN IV DECREASED GLUCOSE; Start 12/15/18 at 17:30 Dextrose (D50w Syringe) 50 ml Q15M PRN IV DECREASED GLUCOSE; Start 12/15/18 at 17:30 Glucagon (Glucagen) 1 mg Q15M PRN IM DECREASED GLUCOSE; Start 12/15/18 at 17:30 Glucose (Glutose) 15 gm Q15M PRN BUCCAL DECREASED GLUCOSE; Start 12/15/18 at 17:30 Heparin Sodium (Porcine) (Heparin (1000 Units/ml)) 4,000 unit PER PROTOCOL PRN IV aPTT<47 Last administered on 12/16/18at 20:46; Admin Dose 4,000 UNIT; Start 12/15/18 at 17:30 Heparin Sodium (Porcine) 250 ml @ 10 mls/hr PER PROTOCOL IV Last administered on 12/16/18at 20:46; Admin Dose 16 MLS/HR; Start 12/15/18 at 17:30 Aspirin (Aspirin) 81 mg DAILY PO Last administered on 12/17/18at 08:47; Admin Dose 81 MG; Start 12/16/18 at 09:00 Nitroglycerin (Nitroglycerin (Sl Tab) 0.4 Mg) 1 tab Q5M PRN SL ANGINA; Start 12/15/18 at 17:30 Morphine Sulfate (morphine) 2 mg Q4H PRN IV SEVERE PAIN LEVEL 7-10 Last administered on 12/17/18 07:05; Admin Dose 2 MG; Start 12/15/18 at 17:30 Albuterol/ Ipratropium (Duoneb) 3 ml Q2H RESP THERAPY PRN HHN shortness of breath; Start 12/15/18 at 17:30 Levalbuterol (Xopenex Neb) 0.63 mg Q6H RESP THERAPY HHN Last administered on 12/17/18 08:31; Admin Dose 0.63 MG; Start 12/16/18 at 02:00 Ipratropium [place] (Atrovent 0.02% (Neb)) 0.5 mg Q6H RESP THERAPY HHN Last administered on 12/17/18 08:31; Admin Dose 0.5 MG; Start 12/16/18 at 02:00 Levalbuterol (Xopenex Neb) 1.25 mg Q4H RESP THERAPY PRN HHN sob; Start 12/16/18 at 02:00 Acetaminophen/ Butalbital/ Caffeine (Fioricet) 1 tab Q6H PRN PO PAIN Last administered on 12/16/18 11:08; Admin Dose 1 TAB; Start 12/16/18 at 08:30 Multivitamins Therapeutic (Theragran) 1 tab DAILY PO Last administered on 12/17/18 08:47; Admin Dose 1 TAB; Start 12/17/18 at 09:00 Metoprolol Tartrate (Lopressor) 50 mg BID PO Last administered on 12/17/18 08:48; Admin Dose 50 MG; Start 12/16/18 at 21:00 Isosorbide Mononitrate (Imdur) 30 mg DAILY PO Last administered on 12/17/18 08:48; Admin Dose 30 MG; Start 12/16/18 at 12:30 MALLORY AMOS NP Dec 17, 2018 12:09
[2018-12-17] MEDS ORDERED: LORAZEPAM 2 MG INJ IV PRN (12:30)
[2018-12-17] MEDS ORDERED: IODIXANOL LOCM 100 ML BTL ONE ×3 (12:35→14:11)
[2018-12-17] MEDS ORDERED: VERAPAMIL 5 MG INJ ONE (12:35)
[2018-12-17] MEDS ORDERED: LIDOCAINE 1% (MDV) 20 ML INJ ONE (12:35)
[2018-12-17] MEDS ORDERED: MIDAZOLAM 1 MG/ML 2 ML INJ ONE (12:35)
[2018-12-17] MEDS ORDERED: FENTAnyl 50 MCG/ML VIAL ONE (12:35)
[2018-12-17] MEDS ORDERED: HEPARIN 1000 UNITS/ML 10 ML INJ ONE (12:35)
[2018-12-17] MEDS ORDERED: NITROGLYCERIN (IC) 100 MCG/ML INJ ONE ×2 (12:36→13:40)
[2018-12-17] MEDS ORDERED: BIVALIRUDIN 250MG /NS 50 ML 50 ML IVPB ONE (14:11)
--- NOTE | 2018-12-17 15:18 | OPR ---
Date/Time of Note Date/Time of Note DATE: 12/17/18 TIME: 15:18 Operative Report Procedure Date: Dec 17, 2018 Preoperative Diagnosis NSTEMI Postoperative Diagnosis NSTEMI Operation/Procedure Performed see details Surgeon see signature line Senior Environmental Consultant none Anesthesia Type: moderate sedation Estimated Blood Loss: minimal Transfusion none Specimen none Grafts/Implants none Complications none Procedure Description Procedure Date:12/17/2018 Field Technical Support Consultant/surgeon:Reynaldo Werner MD. Procedures Performed: 1)Left heart catheterization with selective left and right coronary angiography. 2)iFR of LAD and Cx 3)IVUS of left main and LAD 4)Right femoral angiography with Perclose closure device Pre-operative Diagnosis:NSTEMI Post-operative Diagnosis:NSTEMI Indications: 63 yo M with DM, HTN, CHF, admitted for dyspnea and abdominal pain and was found to have an NSTEMI with trop 1.0 Description of Procedure: After informed consent, the patient was brought to the cardiac catheterization lab. The procedure site was prepped and draped in usual manner. The patient was premedicated with versed 1 mg and fentanyl 25 mcg. 3mL lidocaine was injected into the right groin. Next using the posterior wall technique, the 6/5 [place] sheath was inserted into the right radial artery. Next using the JL3.5, selective angiography of the left coronary was obtained. Due to brachiocephalic tortuosity and spasm, the RCA could not be engaged. Therefore the decision was made to switch to right femoral access. Via micropuncture, a 6 [place] right femoral arterial sheath was placed. The RCA was engaged and angiography obtained. Next the decision was made to iFR the LAD lesion. The EBU 3.25 guide was advanced and left main engaged. After appropriate anticoagulation, the iFR wire was advanced and equalized in the prox LM. Then it was advanced past the mid lesion. iFR was 0.4. Then it was pulled back proximal to the lesion and was 0.76. There was concern that the distal LM was significant as initially the prox LAD lesion was poorly seen. Therefore the IVUS was advanced and determined that there was a significant calcified prox LAD lesion and the distal LM area was measured at 13 mm2. The pigtail was advanced into the LV and pressures obtained. Right femoral artery angiography was obtained and subsequently the Perclose closure device was successfully deployed. Findings: Anatomy/Hemodynamics: Left main: distal 30%, calcified LAD: calcified vessel with prox 70%, mid 70% both iFR positive Diagonal:prox 70% Circumflex: mid diffuse 40% Obtuse marginal 1: ostial 40% Obtuse marginal 2: ostial to prox long diffuse 90-95% RCA:prox 80% PDA:luminal irregularities PLV:luminal irregularities iFR LAD: past mid lesion 0.4, pull back to prox lesion 0.76 iVUS LAD/LM: LAD prox lesion identified and significantly stenosed, left main are 13 mm2 Right femoral angiography: sheath is in the common femoral. No significant disease LV angiography: not done LVEDP:30 mmHg Contrast used:250mL Fluoroscopy time:25 min Estimated blood loss<10 mL. Specimen: none Grafts/implants: none Complications: none Assessment: NSTEMI/CAD: significant 3 vessel CAD. CABG eval Diastolic CHF DM HTN Plan: -CABG REYNALDO Humphries Dec 17, 2018 15:18
[2018-12-17] MEDS ORDERED: hydrALAzine 20 MG INJ IV PRN (15:30)
--- NOTE | 2018-12-17 16:10 | CONS ---
Assessment/Plan Assessment/Plan Hospital Course (Demo Recall) NSTEMI: Trop 1 and trending down. No active chest pain. Three vessel CAD on cath. Awaiting CABG eval Acute diastolic CHF: EF 60%. Decompensated on exam but mild PAD s/p left leg balloon angioplasty and stenting 2016 DM HTN HL Alcohol abuse: no cirrhosis or bleeding. -CABG eval -lasix 20mg IV BID -ASA, lipitor -metoprolol 50mg BID -imdur 30mg Consultation Date/Type/Reason Admit Date/Time Dec 15, 2018 at 16:16 Initial Consult Date 12/16/18 Type of Consult Cardiology Requesting Provider: RENU WHITE Date/Time of Note DATE: 12/17/18 TIME: 16:09 24 HR Interval Summary Free Text/Dictation s/p cath today. See results. Exam/Review of Systems Vital Signs Vitals Vital Signs Date Temp Pulse Resp B/P (MAP) Pulse Ox O2 O2 Flow FiO2 Time Delivery Rate 12/17/18 75 12:00 12/17/18 97.6 22 131/58 96 Mask 11:54 (82) 12/17/18 6.0 08:43 12/16/18 36 22:59 Intake and Output 12/16/18 12/16/18 12/17/18 1515:00 23:00 07:00 IntakeIntake Total 1356.6 ml 250 ml OutputOutput Total 100 ml 300 ml BalanceBalance 1256.6 ml -50 ml Exam Constitutional: alert, oriented Psych: no complaints, nl mood/affect Head: normocephalic, atraumatic Neck: supple, jvd (8cm) Respiratory: diminished breath sounds; No clear to auscultation Gastrointestinal: soft, non-tender; No distended Neurological: nl mental status, nl speech Labs Result Diagram: 12/17/18 0630 12/17/18 0630 Results 24hrs Laboratory Tests Test 12/16/18 17:05 12/16/18 18:22 12/16/18 20:06 12/17/18 02:00 Bedside Glucose 236 H 339 H 233 H Activated 45.8 H Partial Thromboplast Time Test 12/17/18 02:59 12/17/18 06:30 12/17/18 07:57 12/17/18 11:37 Activated 42.3 H 43.5 H Partial Thromboplast Time White Blood Count 9.8 # Red Blood Count 3.20 L Hemoglobin 9.7 L Hematocrit 30.1 L Mean Corpuscular 94.1 Volume Mean Corpuscular 30.3 Hemoglobin Mean Corpuscular 32.2 Hemoglobin Concent Red Cell 13.8 Distribution Width Platelet Count 361 Mean Platelet Volume 9.9 Immature 1.100 H Granulocytes % Neutrophils % 72.3 Lymphocytes % 17.4 Monocytes % 7.3 Eosinophils % 1.4 Basophils % 0.5 Nucleated Red Blood 0.2 H Cells % Immature 0.110 H Granulocytes # Neutrophils # 7.1 Lymphocytes # 1.7 Monocytes # 0.7 Eosinophils # 0.1 Basophils # 0.1 Nucleated Red Blood 0.0 Cells # Sodium Level 137 Potassium Level 4.2 Chloride Level 106 Carbon Dioxide Level 25 Anion Gap 6 Blood Urea Nitrogen 14 Creatinine 1.13 Est Glomerular > 60 Filtrat Rate mL/min Glucose Level 211 Calcium Level 8.3 L Phosphorus Level 3.8 Magnesium Level 2.0 Troponin I 0.455 *H Bedside Glucose 207 Test 12/17/18 12:10 Bedside Glucose 177 Medications Medications Current Medications IV Flush (NS 3 ml) 3 ml PER PROTOCOL IV ; Start 12/15/18 at 17:00 Ondansetron HCl (Zofran Inj) 4 mg Q6H PRN IV NAUSEA/VOMITING Last administered on 12/17/18at 08:08; Admin Dose 4 MG; Start 12/15/18 at 17:00 Acetaminophen (Tylenol Tab) 650 mg Q6H PRN PO .PAIN 1-3 OR TEMP; Start 12/15/18 at 17:00 Acetaminophen/ Hydrocodone Bitart ([place] (5/325)) 1 tab Q6H PRN PO .PAIN 4-6 Last administered on 12/16/18at 08:08; Admin Dose 1 TAB; Start 12/15/18 at 17:00 Famotidine (Pepcid Iv) 20 mg BID@06,18 IV Last administered on 12/17/18 06:41; Admin Dose 20 MG; Start 12/15/18 at 18:00 Sucralfate (Carafate Susp) 1 gm QID PO Last administered on 12/17/18 08:48; Admin Dose 1 GM; Start 12/15/18 at 17:00 Atorvastatin Calcium (Lipitor) 80 mg HS PO Last administered on 12/16/18 20:09; Admin Dose 80 MG; Start 12/15/18 at 21:00 Diagnostic Test (Pha) (Accu-Chek) 1 ea 02 XX Last administered on 12/17/18at 02:02; Admin Dose 1 EA; Start 12/16/18 at 02:00 Insulin Glargine (Lantus) 30 units DAILY@2000 SC Last administered on 12/16/18 20:20; Admin Dose 30 UNITS; Start 12/15/18 at 20:00 Insulin Aspart (Novolog Insulin Pen) NOVOLOG *MILD* ALGORITHM WITH MEALS BEDTIME SC Last administered on 12/17/18 12:20; Admin Dose 1 UNIT; Start 12/15/18 at 18:00 Miscellaneous Information 1 ea NOTE XX ; Start 12/15/18 at 17:30 Glucose (Glutose) 15 gm Q15M PRN PO DECREASED GLUCOSE; Start 12/15/18 at 17:30 Glucose (Glutose) 22.5 gm Q15M PRN PO DECREASED GLUCOSE; Start 12/15/18 at 17:30 Dextrose (D50w Syringe) 25 ml Q15M PRN IV DECREASED GLUCOSE; Start 12/15/18 at 17:30 Dextrose (D50w Syringe) 50 ml Q15M PRN IV DECREASED GLUCOSE; Start 12/15/18 at 17:30 Glucagon (Glucagen) 1 mg Q15M PRN IM DECREASED GLUCOSE; Start 12/15/18 at 17:30 Glucose (Glutose) 15 gm Q15M PRN BUCCAL DECREASED GLUCOSE; Start 12/15/18 at 17 :30 Heparin Sodium (Porcine) (Heparin (1000 Units/ml)) 4,000 unit PER PROTOCOL PRN IV aPTT<47 Last administered on 12/16/18at 20:46; Admin Dose 4,000 UNIT; Start 12/15/18 at 17:30 Heparin Sodium (Porcine) 250 ml @ 10 mls/hr PER PROTOCOL IV Last administered on 12/16/18at 20:46; Admin Dose 16 MLS/HR; Start 12/15/18 at 17:30 Aspirin (Aspirin) 81 mg DAILY PO Last administered on 12/17/18 08:47; Admin Dose 81 MG; Start 12/16/18 at 09:00 Nitroglycerin (Nitroglycerin (Sl Tab) 0.4 Mg) 1 tab Q5M PRN SL ANGINA; Start 12/15/18 at 17:30 Morphine Sulfate (morphine) 2 mg Q4H PRN IV SEVERE PAIN LEVEL 7-10 Last administered on 12/17/18 07:05; Admin Dose 2 MG; Start 12/15/18 at 17:30 Albuterol/ Ipratropium (Duoneb) 3 ml Q2H RESP THERAPY PRN HHN shortness of breath; Start 12/15/18 at 17:30 Levalbuterol (Xopenex Neb) 0.63 mg Q6H RESP THERAPY HHN Last administered on 12/17/18 08:31; Admin Dose 0.63 MG; Start 12/16/18 at 02:00 Ipratropium [place] (Atrovent 0.02% (Neb)) 0.5 mg Q6H RESP THERAPY HHN Last administered on 12/17/18 08:31; Admin Dose 0.5 MG; Start 12/16/18 at 02:00 Levalbuterol (Xopenex Neb) 1.25 mg Q4H RESP THERAPY PRN HHN sob; Start 12/16/18 at 02:00 Acetaminophen/ Butalbital/ Caffeine (Fioricet) 1 tab Q6H PRN PO PAIN Last administered on 12/16/18 11:08; Admin Dose 1 TAB; Start 12/16/18 at 08:30 Multivitamins Therapeutic (Theragran) 1 tab DAILY PO Last administered on 08:47; Admin Dose 1 TAB; Start 12/17/18 at 09:00 Metoprolol Tartrate (Lopressor) 50 mg BID PO Last administered on 12/17/18 08:48; Admin Dose 50 MG; Start 12/16/18 at 21:00 Isosorbide Mononitrate (Imdur) 30 mg DAILY PO Last administered on 12/17/18 08:48; Admin Dose 30 MG; Start 12/16/18 at 12:30 Insulin Aspart (Novolog Insulin Pen) 7 unit WITH MEALS SC ; Start 12/17/18 at 17:55 Lorazepam (Ativan) 1 mg Q8H PRN IV Anxiety; Start 12/17/18 at 12:30 JUAN M VENEGAS Dec 17, 2018 16:10
--- NOTE | 2018-12-17 16:49 | CONS ---
Assessment/Plan Assessment/Plan Assessment/Plan (Daily) 63 year old male with severe LM stenosis and 3V CAD s/p NSTEMI. He will need an urgent CABG. I explained to the paitent the risks, benefits, and alternatives of surgery. The risks are but not limited to bleeding, infection, stroke, renal and respiratory failure and . He understands and agrees to surgery.Will schedule for tomorrow. Consultation Date/Type/Reason Admit Date/Time Dec 15, 2018 at 16:16 Date of Consultation: Dec 17, [address] SURGERY Reason for Consultation EVAL FOR CABG Requesting Provider: JUAN M VENEGAS Date/Time of Note DATE: 12/17/18 TIME: 16:42 Hx of Present Illness 63 year old male admitted with SOB and chest pressure and ruled in for NSTEMI. Cath shows LM stenosis extending into proximal LAD, 80Cx and OM stenosis and proximal 90% stenosis of RCA. EF 60%. We are asked to see for CABG. Constitutional: no complaints, improved Eyes: no complaints ENT: no complaints Respiratory: shortness of breath Cardiovascular: chest pain Gastrointestinal: no complaints Genitourinary: no complaints Musculoskeletal: no complaints Endocrine: no complaints Lymphatic: no complaints Psychological: no complaints, nl mood/affect Immunologic: no complaints Past Medical History Medical History: coronary artery disease, diabetes, hypertension Home Meds Active Scripts Gabapentin* (Gabapentin*) 300 Mg Capsule, 300 MG PO TID, #90 CAP Prov:RADHA ROTHMAN 12/11/18 Ciprofloxacin Hcl* (Ciprofloxacin Hcl*) 250 Mg Tablet, 250 MG PO BID for 3 Days, #6 TAB Prov:RADHA ROTHMAN 12/11/18 Furosemide* (Furosemide*) 20 Mg Tablet, 20 MG PO DAILY for 3 Days, #3 TAB Prov:FOX JAVED 09/02/18 Omeprazole* (Omeprazole*) 20 Mg Capsule.dr, 20 MG PO DAILY, #30 CAP Prov:RENU WHITE 08/22/18 Levofloxacin* (Levaquin*) 500 Mg Tablet, 500 MG PO DAILY for 5 Days, #5 TAB Prov:RENU WHITE 08/22/18 Salmeterol Xinaf/Fluticasone* (Advair*) 250-50 Diskus Inhaler, 1 INH INH BID for 30 Days Prov:SANAZ DAVIS MD 04/15/17 Aspirin* (Aspirin* EC) 81 Mg Tablet.dr, 81 MG PO DAILY for 30 Days Prov:SANAZ DAVIS MD 04/15/17 Atorvastatin* (Atorvastatin*) 40 Mg Tablet, 40 MG PO HS for 30 Days, TAB Prov:SANAZ DAVIS MD 04/15/17 Clopidogrel Bisulfate (Clopidogrel) 75 Mg Tablet, 75 MG PO DAILY for 30 Days, TAB Prov:SANAZ DAVIS MD 04/15/17 Amlodipine Besylate* (Norvasc*) 5 Mg Tablet, 2.5 MG PO DAILY for 30 Days, TAB Prov:SANAZ DAVIS MD 04/15/17 Insulin Aspart* (Novolog Insulin Pen*) 100 Unit/Ml Soln, 15 UNIT SC WITH MEALS for 30 Days, #1 SYR Prov:HERRERA,BRANDON V. [employer]SEM[employer] INSPECTOR 03/23/17 Metformin Hcl (Glucophage) 500 Mg Tablet, 1000 MG PO BID WITH MEALS for 30 Days, #60 TAB Prov:HERRERA,BRANDON V. [employer]SEM[employer] INSPECTOR 03/23/17 Linagliptin (TRADJENTA) 5 Mg Tablet, 5 MG PO DAILY for 30 Days, #30 TAB Prov:HERRERA,BRANDON V. [employer] INSPECTOR 03/23/17 Insulin Glargine* (Lantus*) 100 Unit/Ml Soln, 45 UNIT SC HS for 30 Days, #1 SYR Prov:HERRERA,BRANDON V. [employer]SEM[employer] INSPECTOR 03/23/17 Reported Medications Ergocalciferol (Vitamin D2) (VITAMIN D2) 2,000 Unit Tablet, 2000 UNIT PO DAILY, TAB 03/15/17 Medications Current Medications IV Flush (NS 3 ml) 3 ml PER PROTOCOL IV ; Start 12/15/18 at 17:00 Ondansetron HCl (Zofran Inj) 4 mg Q6H PRN IV NAUSEA/VOMITING Last administered on 12/17/18at 08:08; Admin Dose 4 MG; Start 12/15/18 at 17:00 Acetaminophen (Tylenol Tab) 650 mg Q6H PRN PO .PAIN 1-3 OR TEMP; Start 12/15/18 at 17:00 Acetaminophen/ Hydrocodone Bitart ([place] (5/325)) 1 tab Q6H PRN PO .PAIN 4-6 Last administered on 12/16/18 08:08; Admin Dose 1 TAB; Start 12/15/18 at 17:00 Famotidine (Pepcid Iv) 20 mg BID@06,18 IV Last administered on 12/17/18 06:41; Admin Dose 20 MG; Start 12/15/18 at 18:00 Sucralfate (Carafate Susp) 1 gm QID PO Last administered on 12/17/18 08:48; Admin Dose 1 GM; Start 12/15/18 at 17:00 Atorvastatin Calcium (Lipitor) 80 mg HS PO Last administered on 12/16/18 20:09; Admin Dose 80 MG; Start 12/15/18 at 21:00 Diagnostic Test (Pha) (Accu-Chek) 1 ea 02 XX Last administered on 12/17/18at 02:02; Admin Dose 1 EA; Start 12/16/18 at 02:00 Insulin Glargine (Lantus) 30 units DAILY@2000 SC Last administered on 12/16/18 20:20; Admin Dose 30 UNITS; Start 12/15/18 at 20:00 Insulin Aspart (Novolog Insulin Pen) NOVOLOG *MILD* ALGORITHM WITH MEALS BEDTIME SC Last administered on 12/17/18 12:20; Admin Dose 1 UNIT; Start 12/15/18 at 18:00 Miscellaneous Information 1 ea NOTE XX ; Start 12/15/18 at 17:30 Glucose (Glutose) 15 gm Q15M PRN PO DECREASED GLUCOSE; Start 12/15/18 at 17:30 Glucose (Glutose) 22.5 gm Q15M PRN PO DECREASED GLUCOSE; Start 12/15/18 at 17:30 Dextrose (D50w Syringe) 25 ml Q15M PRN IV DECREASED GLUCOSE; Start 12/15/18 at 17:30 Dextrose (D50w Syringe) 50 ml Q15M PRN IV DECREASED GLUCOSE; Start 12/15/18 at 17:30 Glucagon (Glucagen) 1 mg Q15M PRN IM DECREASED GLUCOSE; Start 12/15/18 at 17:30 Glucose (Glutose) 15 gm Q15M PRN BUCCAL DECREASED GLUCOSE; Start 12/15/18 at 17:30 Aspirin (Aspirin) 81 mg DAILY PO Last administered on 12/17/18 08:47; Admin D ose 81 MG; Start 12/16/18 at 09:00 Nitroglycerin (Nitroglycerin (Sl Tab) 0.4 Mg) 1 tab Q5M PRN SL ANGINA; Start 12/15/18 at 17:30 Morphine Sulfate (morphine) 2 mg Q4H PRN IV SEVERE PAIN LEVEL 7-10 Last administered on 12/17/18at 07:05; Admin Dose 2 MG; Start 12/15/18 at 17:30 Albuterol/ Ipratropium (Duoneb) 3 ml Q2H RESP THERAPY PRN HHN shortness of breath; Start 12/15/18 at 17:30 Levalbuterol (Xopenex Neb) 0.63 mg Q6H RESP THERAPY HHN Last administered on 12/17/18 08:31; Admin Dose 0.63 MG; Start 12/16/18 at 02:00 Ipratropium [place] (Atrovent 0.02% (Neb)) 0.5 mg Q6H RESP THERAPY HHN Last administered on 12/17/18 08:31; Admin Dose 0.5 MG; Start 12/16/18 at 02:00 Levalbuterol (Xopenex Neb) 1.25 mg Q4H RESP THERAPY PRN HHN sob; Start 12/16/18 at 02:00 Acetaminophen/ Butalbital/ Caffeine (Fioricet) 1 tab Q6H PRN PO PAIN Last administered on 12/16/18at 11:08; Admin Dose 1 TAB; Start 12/16/18 at 08:30 Multivitamins Therapeutic (Theragran) 1 tab DAILY PO Last administered on 08:47; Admin Dose 1 TAB; Start 12/17/18 at 09:00 Metoprolol Tartrate (Lopressor) 50 mg BID PO Last administered on 12/17/18 08:48; Admin Dose 50 MG; Start 12/16/18 at 21:00 Isosorbide Mononitrate (Imdur) 30 mg DAILY PO Last administered on 12/17/18 08:48; Admin Dose 30 MG; Start 12/16/18 at 12:30 Insulin Aspart (Novolog Insulin Pen) 7 unit WITH MEALS SC ; Start 12/17/18 at 17:55 Lorazepam (Ativan) 1 mg Q8H PRN IV Anxiety; Start 12/17/18 at 12:30 Hydralazine HCl (Apresoline) 10 mg Q4H PRN IV SBP >170 Last administered on 12/17/18at 15:54; Admin Dose 10 MG; Start 12/17/18 at 15:30 Furosemide (Lasix) 20 mg BID DIURETICS IV ; Start 12/17/18 at 18:00 Allergies: Coded Allergies: No Known Allergy (Unverified , 08/30/18) Past Surgical History Past Surgical Hx: other (right LE venous ulcers) Family History Significant Family History: no pertinent family hx Social History Alcohol Use: occasionally Smoking Status: Never smoker Drug Use: none Exam/Review of Systems Exam Vitals Vital Signs Date Temp Pulse Resp B/P (MAP) Pulse Ox O2 O2 Flow FiO2 Time Delivery Rate 12/17/18 81 16:00 12/17/18 6.0 15:47 12/17/18 97.6 22 131/58 96 Mask 11:54 (82) 12/16/18 36 22:59 Intake and Output 12/16/18 12/16/18 12/17/18 1515:00 23:00 07:00 IntakeIntake Total 1356.6 ml 250 ml OutputOutput Total 100 ml 300 ml BalanceBalance 1256.6 ml -50 ml Constitutional: alert, oriented, well developed Psych: no complaints, nl mood/affect Head: normocephalic, atraumatic Eyes: nl conjunctiva, EOMI, nl lids, nl sclera, PERRL ENMT: nl external ears & nose, nl lips & teeth, nl nasal mucosa & septum Neck: supple, non-tender Respiratory: clear to auscultation, normal air movement Gastrointestinal: soft, nl liver, spleen, non-tender Extremities: normal pulses 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, nl mental status, nl speech, nl strength Skin: nl turgor; No rash or lesions Lymph: nl lymph nodes Results Result Diagram: 12/17/18 0630 12/17/18 0630 Results 24hrs Laboratory Tests Test 12/16/18 17:05 12/16/18 18:22 12/16/18 20:06 12/17/18 02:00 Bedside Glucose 236 H 339 H 233 H Activated 45.8 H Partial Thromboplast Time Test 12/17/18 02:59 12/17/18 06:30 12/17/18 07:57 12/17/18 11:37 Activated 42.3 H 43.5 H Partial Thromboplast Time White Blood Count 9.8 # Red Blood Count 3.20 L Hemoglobin 9.7 L Hematocrit 30.1 L Mean Corpuscular 94.1 Volume Mean Corpuscular 30.3 Hemoglobin Mean Corpuscular 32.2 Hemoglobin Concent Red Cell 13.8 Distribution Width Platelet Count 361 Mean Platelet Volume 9.9 Immature 1.100 H Granulocytes % Neutrophils % 72.3 Lymphocytes % 17.4 Monocytes % 7.3 Eosinophils % 1.4 Basophils % 0.5 Nucleated Red Blood 0.2 H Cells % Immature 0.110 H Granulocytes # Neutrophils # 7.1 Lymphocytes # 1.7 Monocytes # 0.7 Eosinophils # 0.1 Basophils # 0.1 Nucleated Red Blood 0.0 Cells # Sodium Level 137 Potassium Level 4.2 Chloride Level 106 Carbon Dioxide Level 25 Anion Gap 6 Blood Urea Nitrogen 14 Creatinine 1.13 Est Glomerular > 60 Filtrat Rate mL/min Glucose Level 211 Calcium Level 8.3 L Phosphorus Level 3.8 Magnesium Level 2.0 Troponin I 0.455 *H Bedside Glucose 207 Test 12/17/18 12:10 Bedside Glucose 177 Medications Medication Current Medications IV Flush (NS 3 ml) 3 ml PER PROTOCOL IV ; Start 12/15/18 at 17:00 Ondansetron HCl (Zofran Inj) 4 mg Q6H PRN IV NAUSEA/VOMITING Last administered on 12/17/18at 08:08; Admin Dose 4 MG; Start 12/15/18 at 17:00 Acetaminophen (Tylenol Tab) 650 mg Q6H PRN PO .PAIN 1-3 OR TEMP; Start 12/15/18 at 17:00 Acetaminophen/ Hydrocodone Bitart ([place] (5/325)) 1 tab Q6H PRN PO .PAIN 4-6 Last administered on 12/16/18at 08:08; Admin Dose 1 TAB; Start 12/15/18 at 17:00 Famotidine (Pepcid Iv) 20 mg BID@06,18 IV Last administered on 12/17/18at 06:41; Admin Dose 20 MG; Start 12/15/18 at 18:00 Sucralfate (Carafate Susp) 1 gm QID PO Last administered on 12/17/18at 08:48; Admin Dose 1 GM; Start 12/15/18 at 17:00 Atorvastatin Calcium (Lipitor) 80 mg HS PO Last administered on 12/16/18at 20:09; Admin Dose 80 MG; Start 12/15/18 at 21:00 Diagnostic Test (Pha) (Accu-Chek) 1 ea 02 XX Last administered on 12/17/18at 02:02; Admin Dose 1 EA; Start 12/16/18 at 02:00 Insulin Glargine (Lantus) 30 units DAILY@2000 SC Last administered on 12/16/18at 20:20; Admin Dose 30 UNITS; Start 12/15/18 at 20:00 Insulin Aspart (Novolog Insulin Pen) NOVOLOG *MILD* ALGORITHM WITH MEALS BE DTIME SC Last administered on 12/17/18at 12:20; Admin Dose 1 UNIT; Start 12/15/18 at 18:00 Miscellaneous Information 1 ea NOTE XX ; Start 12/15/18 at 17:30 Glucose (Glutose) 15 gm Q15M PRN PO DECREASED GLUCOSE; Start 12/15/18 at 17:30 Glucose (Glutose) 22.5 gm Q15M PRN PO DECREASED GLUCOSE; Start 12/15/18 at 17:30 Dextrose (D50w Syringe) 25 ml Q15M PRN IV DECREASED GLUCOSE; Start 12/15/18 at 17:30 Dextrose (D50w Syringe) 50 ml Q15M PRN IV DECREASED GLUCOSE; Start 12/15/18 at 17:30 Glucagon (Glucagen) 1 mg Q15M PRN IM DECREASED GLUCOSE; Start 12/15/18 at 17:30 Glucose (Glutose) 15 gm Q15M PRN BUCCAL DECREASED GLUCOSE; Start 12/15/18 at 17:30 Aspirin (Aspirin) 81 mg DAILY PO Last administered on 12/17/18at 08:47; Admin Dose 81 MG; Start 12/16/18 at 09:00 Nitroglycerin (Nitroglycerin (Sl Tab) 0.4 Mg) 1 tab Q5M PRN SL ANGINA; Start 12/15/18 at 17:30 Morphine Sulfate (morphine) 2 mg Q4H PRN IV SEVERE PAIN LEVEL 7-10 Last administered on 12/17/18at 07:05; Admin Dose 2 MG; Start 12/15/18 at 17:30 Albuterol/ Ipratropium (Duoneb) 3 ml Q2H RESP THERAPY PRN HHN shortness of breath; Start 12/15/18 at 17:30 Levalbuterol (Xopenex Neb) 0.63 mg Q6H RESP THERAPY HHN Last administered on 08:31; Admin Dose 0.63 MG; Start 12/16/18 at 02:00 Ipratropium [place] (Atrovent 0.02% (Neb)) 0.5 mg Q6H RESP THERAPY HHN Last administered on 12/17/18 08:31; Admin Dose 0.5 MG; Start 12/16/18 at 02:00 Levalbuterol (Xopenex Neb) 1.25 mg Q4H RESP THERAPY PRN HHN sob; Start 12/16/18 at 02:00 Acetaminophen/ Butalbital/ Caffeine (Fioricet) 1 tab Q6H PRN PO PAIN Last administered on 12/16/18 11:08; Admin Dose 1 TAB; Start 12/16/18 at 08:30 Multivitamins Therapeutic (Theragran) 1 tab DAILY PO Last administered on 12/17/18 08:47; Admin Dose 1 TAB; Start 12/17/18 at 09:00 Metoprolol Tartrate (Lopressor) 50 mg BID PO Last administered on 12/17/18 08:48; Admin Dose 50 MG; Start 12/16/18 at 21:00 Isosorbide Mononitrate (Imdur) 30 mg DAILY PO Last administered on 12/17/18 08:48; Admin Dose 30 MG; Start 12/16/18 at 12:30 Insulin Aspart (Novolog Insulin Pen) 7 unit WITH MEALS SC ; Start 12/17/18 at 17:55 Lorazepam (Ativan) 1 mg Q8H PRN IV Anxiety; Start 12/17/18 at 12:30 Hydralazine HCl (Apresoline) 10 mg Q4H PRN IV SBP >170 Last administered on 12/17/18 15:54; Admin Dose 10 MG; Start 12/17/18 at 15:30 Furosemide (Lasix) 20 mg BID DIURETICS IV ; Start 12/17/18 at 18:00 LIDIA GOINS MD Dec 17, 2018 16:49
[2018-12-17] MEDS ORDERED: CEFAZOLIN 2 GM/50 ML (PMX) 50 ML IVPB ONE (17:00)
[2018-12-17] MEDS: FUROSEMIDE 20 MG INJ IV SCH (17:43)
[2018-12-17] MEDS: ATORVASTATIN 80 MG TAB PO SCH (21:33)
[2018-12-17] MEDS: INSULIN GLARGINE [LANTus] (100 UNITS/ML) SYG SC SCH (21:47)
[2018-12-17] MEDS: LEVALBUTEROL (NEB) 1.25 MG/0.5 ML AMP HHN PRN (23:28)
[2018-12-18] VITALS (22 sets, daily range): BP systolic 96–161; BP diastolic 51–78; PULSE 72–92; RESP 14–28; TEMP 96.7–97
[2018-12-18] MEDS ORDERED: traZODone 50 MG TAB PO ONE
[2018-12-18] MEDS: ACCU-CHEK XX SCH ×4 (02:00→23:33)
[2018-12-18] MEDS: LEVALBUTEROL (NEB) 0.63 MG/3 ML AMP HHN SCH ×4 (02:15→20:00)
[2018-12-18] MEDS: IPRATROPIUM (NEB) 0.5 MG/2.5 ML AMP HHN SCH ×3 (02:15→14:20)
[2018-12-18] MEDS: FAMOTIDINE 20 MG INJ IV SCH (06:39)
[2018-12-18] MEDS: FUROSEMIDE 20 MG INJ IV SCH (06:39)
[2018-12-18] MEDS ORDERED: NITROGLYCERIN 50 MG/D5W 250 ML BTL ONE (07:00)
[2018-12-18] MEDS ORDERED: DOPamine-D5W 1.6 MG/ML 250 ML ONE (07:00)
[2018-12-18] MEDS: LEVALBUTEROL (NEB) 1.25 MG/0.5 ML AMP HHN PRN (08:41)
--- NOTE | 2018-12-18 08:44 | CONS ---
Assessment/Plan Assessment/Plan Hospital Course (Demo Recall) NSTEMI: Trop 1 and trending down. No active chest pain. Three vessel CAD on cath. Awaiting CABG eval Acute diastolic CHF: EF 60%. Decompensated on exam PAD s/p left leg balloon angioplasty and stenting 2016 DM HTN HL Alcohol abuse: no cirrhosis or bleeding. -CABG today -lasix 20mg IV BID -ASA, lipitor -metoprolol 50mg BID -imdur 30mg Consultation Date/Type/Reason Admit Date/Time Dec 15, 2018 at 16:16 Initial Consult Date 12/16/18 Type of Consult Cardiology Requesting Provider: JUAN M VENEGAS Date/Time of Note DATE: 12/18/18 TIME: 08:43 24 HR Interval Summary Free Text/Dictation Required CPAP overnight for sleep apnea. No chest pain or SOB. Exam/Review of Systems Vital Signs Vitals Vital Signs Date Temp Pulse Resp B/P (MAP) Pulse Ox O2 O2 Flow FiO2 Time Delivery Rate 12/18/18 85 20 88 21 08:42 12/18/18 98.5 145/78 04:00 (100) 12/17/18 12.0 23:48 12/17/18 Simple 23:48 Mask Intake and Output 12/17/18 12/17/18 12/18/18 1515:00 23:00 07:00 IntakeIntake Total 420 ml 200 ml BalanceBalance 420 ml 200 ml Exam Constitutional: alert, oriented Head: normocephalic, atraumatic Neck: jvd (9cm) Respiratory: crackles/rales (at bases); No clear to auscultation Cardiovascular: regular rate and rhythm, edema (1+); No systolic murmur Gastrointestinal: soft, non-tender; No distended Neurological: nl mental status, nl speech Labs Result Diagram: 12/18/1818 12/18/1818 Results 24hrs Laboratory Tests Test 12/17/18 11:37 12/17/18 12:10 12/17/18 16:26 12/17/18 17:55 Activated 43.5 H Partial Thromboplast Time Bedside Glucose 177 206 206 Test 12/17/18 21:30 12/18/18 07:18 Bedside Glucose 216 White Blood Count 8.5 Red Blood Count 3.11 L Hemoglobin 9.4 L Hematocrit 29.5 L Mean Corpuscular 94.9 Volume Mean Corpuscular 30.2 Hemoglobin Mean Corpuscular 31.9 L Hemoglobin Concent Red Cell 13.8 Distribution Width Platelet Count 437 #H Mean Platelet Volume 9.5 Immature 0.700 H Granulocytes % Neutrophils % 73.7 Lymphocytes % 17.3 Monocytes % 6.7 Eosinophils % 1.1 Basophils % 0.5 Nucleated Red Blood 0.0 Cells % Immature 0.060 H Granulocytes # Neutrophils # 6.3 Lymphocytes # 1.5 Monocytes # 0.6 Eosinophils # 0.1 Basophils # 0.0 Nucleated Red Blood 0.0 Cells # Sodium Level 138 Potassium Level 4.1 Chloride Level 104 Carbon Dioxide Level 28 Anion Gap 6 Blood Urea Nitrogen 14 Creatinine 1.33 H Est Glomerular 54 L Filtrat Rate mL/min Glucose Level 224 H Calcium Level 8.9 Phosphorus Level 4.4 Magnesium Level 2.1 Medications Medications Current Medications IV Flush (NS 3 ml) 3 ml PER PROTOCOL IV ; Start 12/15/18 at 17:00 Ondansetron HCl (Zofran Inj) 4 mg Q6H PRN IV NAUSEA/VOMITING Last administered on 12/17/18at 08:08; Admin Dose 4 MG; Start 12/15/18 at 17:00 Acetaminophen (Tylenol Tab) 650 mg Q6H PRN PO .PAIN 1-3 OR TEMP; Start 12/15/18 at 17:00 Acetaminophen/ Hydrocodone Bitart ([place] (5/325)) 1 tab Q6H PRN PO .PAIN 4-6 Last administered on 12/16/18 08:08; Admin Dose 1 TAB; Start 12/15/18 at 17:00 Famotidine (Pepcid Iv) 20 mg BID@06,18 IV Last administered on 12/18/18 06:39; Admin Dose 20 MG; Start 12/15/18 at 18:00 Sucralfate (Carafate Susp) 1 gm QID PO Last administered on 12/17/18 21:33; Admin Dose 1 GM; Start 12/15/18 at 17:00 Atorvastatin Calcium (Lipitor) 80 mg HS PO Last administered on 12/17/18 21:33; Admin Dose 80 MG; Start 12/15/18 at 21:00 Diagnostic Test (Pha) (Accu-Chek) 1 ea 02 XX Last administered on 4/30/19at 02:02; Admin Dose 1 EA; Start 12/16/18 at 02:00 Insulin Glargine (Lantus) 30 units DAILY@2000 SC Last administered on 12/17/18at 21:47; Admin Dose 30 UNITS; Start 12/15/18 at 20:00 Insulin Aspart (Novolog Insulin Pen) NOVOLOG *MILD* ALGORITHM WITH MEALS BEDTIME SC Last administered on 12/17/18 21:46; Admin Dose 1 UNIT; Start 12/15/18 at 18:00 Miscellaneous Information 1 ea NOTE XX ; Start 12/15/18 at 17:30 Glucose (Glutose) 15 gm Q15M PRN PO DECREASED GLUCOSE; Start 12/15/18 at 17:30 Glucose (Glutose) 22.5 gm Q15M PRN PO DECREASED GLUCOSE; Start 12/15/18 at 17:30 Dextrose (D50w Syringe) 25 ml Q15M PRN IV DECREASED GLUCOSE; Start 12/15/18 at 17:30 Dextrose (D50w Syringe) 50 ml Q15M PRN IV DECREASED GLUCOSE; Start 12/15/18 at 17:30 Glucagon (Glucagen) 1 mg Q15M PRN IM DECREASED GLUCOSE; Start 12/15/18 at 17:30 Glucose (Glutose) 15 gm Q15M PRN BUCCAL DECREASED GLUCOSE; Start 12/15/18 at 17:30 Aspirin (Aspirin) 81 mg DAILY PO Last administered on 12/17/18at 08:47; Admin Dose 81 MG; Start 12/16/18 at 09:00 Nitroglycerin (Nitroglycerin (Sl Tab) 0.4 Mg) 1 tab Q5M PRN SL ANGINA; Start 12/15/18 at 17:30 Morphine Sulfate (morphine) 2 mg Q4H PRN IV SEVERE PAIN LEVEL 7-10 Last administered on 12/17/18at 07:05; Admin Dose 2 MG; Start 12/15/18 at 17:30 Albuterol/ Ipratropium (Duoneb) 3 ml Q2H RESP THERAPY PRN HHN shortness of b reath; Start 12/15/18 at 17:30 Levalbuterol (Xopenex Neb) 0.63 mg Q6H RESP THERAPY HHN Last administered on 12/18/18at 02:15; Admin Dose 0.63 MG; Start 12/16/18 at 02:00 Ipratropium [place] (Atrovent 0.02% (Neb)) 0.5 mg Q6H RESP THERAPY HHN Last administered on 12/18/18 08:41; Admin Dose 0.5 MG; Start 12/16/18 at 02:00 Levalbuterol (Xopenex Neb) 1.25 mg Q4H RESP THERAPY PRN HHN sob Last adminis tered on 12/18/18 08:41; Admin Dose 1.25 MG; Start 12/16/18 at 02:00 Acetaminophen/ Butalbital/ Caffeine (Fioricet) 1 tab Q6H PRN PO PAIN Last administered on 12/16/18 11:08; Admin Dose 1 TAB; Start 12/16/18 at 08:30 Multivitamins Therapeutic (Theragran) 1 tab DAILY PO Last administered on 12/17/18 08:47; Admin Dose 1 TAB; Start 12/17/18 at 09:00 Metoprolol Tartrate (Lopressor) 50 mg BID PO Last administered on 12/17/18 21:33; Admin Dose 50 MG; Start 12/16/18 at 21:00 Isosorbide Mononitrate (Imdur) 30 mg DAILY PO Last administered on 12/17/18 08:48; Admin Dose 30 MG; Start 12/16/18 at 12:30 Insulin Aspart (Novolog Insulin Pen) 7 unit WITH MEALS SC Last administered on 12/17/18 18:18; Admin Dose 7 UNIT; Start 12/17/18 at 17:55 Lorazepam (Ativan) 1 mg Q8H PRN IV Anxiety Last administered on 12/17/18 18:49; Admin Dose 1 MG; Start 12/17/18 at 12:30 Hydralazine HCl (Apresoline) 10 mg Q4H PRN IV SBP >170 Last administered on 12/17/18 15:54; Admin Dose 10 MG; Start 12/17/18 at 15:30 Furosemide (Lasix) 20 mg BID DIURETICS IV Last administered on 12/18/18 06:39; Admin Dose 20 MG; Start 12/17/18 at 18:00 Cefazolin Sodium/ Dextrose 50 ml @ 100 mls/hr PRE-OP IVPB ; Start 12/18/18 at 12:00; Stop 12/18/18 at 20:00 Insulin Human Regular 100 unit/ Sodium Chloride 100 ml @ 0 mls/hr Q0M ONCE IVPB ; Start 12/18/18 at 14:00; Stop 12/18/18 at 14:01 Norepinephrine 250 ml @ 0 mls/hr ONCE ONCE IV ; Start 12/18/18 at 14:00; Stop 12/18/18 at 14:01 Epinephrine 4 mg/ Dextrose 250 ml @ 0 mls/hr Q0M ONCE IV ; Start 12/18/18 at 14:00; Stop 12/18/18 at 14:01 Phenylephrine HCl 250 ml @ 0 mls/hr ONCE ONCE IV ; Start 12/18/18 at 14:00; Stop 12/18/18 at 14:01 Aspirin (Aspirin) 600 mg ONCE ONCE NM ; Start 12/18/18 at 14:00; Stop 12/18/18 at 14:01 Heparin Sodium (Porcine) 16295 unit/Milrinone Lactate 10 mg/ Sodium Chloride 1,011 ml @ 0 mls/hr ONCE ONCE SC ; Start 12/18/18 at 14:00; Stop 12/18/18 at 14:01 Milrinone Lactate 2 mg/Sodium Chloride 52 ml @ 0 mls/hr ONCE ONCE IV ; Start 12/18/18 at 14:00; Stop 12/18/18 at 14:01 JUAN M VENEGAS December 18, 2018 08:44
[2018-12-18] MEDS: ASPIRIN 81 MG TAB PO SCH (09:00)
[2018-12-18] MEDS: INSULIN ASPART [NOVOLOG] 3 ML PEN SC SCH ×4 (09:07→11:50)
[2018-12-18] MEDS ORDERED: MEROPENEM 1 GM/50ML(PMX) 50 ML IVPB SCH (10:00)
--- NOTE | 2018-12-18 10:02 | PN ---
Date/Time of Note Date/Time of Note DATE: 12/18/18 TIME: 09:55 Assessment/Plan VTE Prophylaxis Risk score (from Ns)>0 risk: 5 SCD applied (from [facility] [place] No SCD contraindicated: other Pharmacological prophylaxis: NA/contraindicated Pharm contraindication: surgical contra Lines/Catheters IV Catheter Type (from [facility]): Peripheral IV Urinary Cath still in place: No Assessment/Plan Hospital Course SUBJECTIVE: Complains of anxiety. OBJECTIVE: Physical Exam General: Obese, 63 year-old male lying in bed in no apparent distress. HEENT: Normocephalic, atraumatic. Eyes: Anicteric sclerae, conjunctivae clear. ENT: Nasal septum midline, oral mucosa moist. Neck: Short and obese. Respiratory: Bilaterally diminished breath sounds. Minimal use of accessory muscles of respiration. Cardiovascular: S1, S2 heard. Regular rate and rhythm. Abdomen: Distended. Bowel sounds positive in all 4 quadrants. Genitourinary: Deferred. Extremities: No cyanosis, no clubbing. Bilateral lower extremity 2+ pitting edema. Neurologic: Cranial nerves II through XII grossly intact. The patient is awake, alert, and oriented. Labs & Vitals per chart ASSESSMENT & PLAN This is a 63-year-old male with comorbidities including diabetes mellitus, left foot osteomyelitis, hypertension, obesity, chronic kidney disease, peripheral artery disease, and alcohol abuse. The patient came to the emergency room with chief complaint of abdominal pain, distension and occasional radiation of pain to the chest. He was noticed to have NSTEMI. 1. NSTEMI. -S/P [facility] on 12/17/2018 that showed significant 3-vessel CAD. -Status post evaluation by cardiac surgery. -Scheduled for CABG. 2. Acute respiratory failure. -Hypoxic. -Continue supplemental O2. -Continue inhaled bronchodilators. 3. Fluid overload. -Etiology could be multifactorial. -2D echocardiogram showing preserved LVEF. -Known history of significant proteinuria, suggesting nephrotic syndrome. -Diuretics as clinically indicated. 4. Diabetes mellitus type 2. -Continue sliding scale insulin along with pre-meal insulin and basal insulin. -Hemoglobin A1c 10.7. 5. Peripheral artery disease. -Status post left tibioperoneal trunk balloon angioplasty, left femoral popliteal artery stenting, and left femoral popliteal artery balloon angioplasty on 03/22/2017. -Continue antiplatelet therapy. 6. Hypertension. -Continue antihypertensives. 7. Pulmonary hypertension. -PA systolic pressure of 52 mm Hg. -Continue supplemental O2. 8. E. coli ESBL in urine. -Points count <10,000 CFU per mL. -Start appropriate antimicrobial therapy. -Obtain ID consult. 9. Obesity. -BMI 31.5 kg/m -Weight reduction advised. 10. Normocytic, normochromic anemia. -Monitor H&H closely. 11. Alcohol abuse. -Last drink was approximately 5 days ago. -Continue multivitamins. 12. Generalized anxiety. -PRN benzodiazepines. 13. Fluids, electrolytes, and nutrition. -Carbohydrate controlled diet (npo for procedure). 14. DVT prophylaxis. -B/L SCDs 15. Plan. -Scheduled for CABG today. -Meanwhile the patient's urine culture from 12/16/2018 showing E.coli ESBL. -Start appropriate antimicrobials. -Obtain ID consult. The patient was seen in collaboration with Dr. Gutierrez. Result Diagram: [id number] Results 24hrs RUN DATE: 12/18/18 [facility] PAGE 1 RUN TIME: [id number] [place] [address] Tan Heller M.D. [employer] Shahida Ruvalcaba M.D. [employer] MAGGIE#: [id number] Name: BILLNITIN Age/Sex: 63/M Attend Dr: RENU WHITE Acct: [id number] MR# : [id number] : 1955 Location: [facility]EL 529-A Admit: 12/15/18 Specimen: [id number] Status: Resulted Shama: 12/16/18-1345 Rcvd: -1400 Source: CLEAN CATC Sp Descrip: ------ Procedure Result Microbiology URINE CULTURE Preliminary Organism 1 ESCHERICHIA COLI (ESBL) COLONY COUNT <10,000 CFU/ml . MULTI DRUG RESISTANT ORGANISM PHONED TO TELLO [place] AND A COPY TO AT 6921 12/18/2018 BY JV. JOYNER ESBL ECOLI ESBL M.I.C. RX M.I.C. RX --------- --- --------- --- AMPICILLIN >=32 R CEFAZOLIN R CEFEPIME 2 S CEFOTAXIME R CIPROFLOXACIN >=4 R GENTAMICIN <=1 S LEVOFLOXACIN >=8 R MEROPENEM 0.032 S NITROFURANTOIN <=16 S TOBRAMYCIN <=1 S TRIMETHOPRIM/SULFAMETHOXAZOLE >=320 R PIPERACILLIN/TAZOBACTAM <=4 S ------ ....... ..................................................................................... Flags: Critical Hi = *H Critical Lo = *L Microbiology Abnormal = * Abnormal Hi = H Abnormal Lo = L Blood Bank Abnormal = * Susceptability Flags: S = Sensitive R = Resistant I = Intermediate END OF REPORT Laboratory Tests Test 12/17/18 11:37 12/17/18 12:10 12/17/18 16:26 12/17/18 17:55 Activated 43.5 H Partial Thromboplast Time Bedside Glucose 177 206 206 Test 12/17/18 21:30 12/18/18 07:18 12/18/18 08:53 Bedside Glucose 216 228 H White Blood Count 8.5 Red Blood Count 3.11 L Hemoglobin 9.4 L Hematocrit 29.5 L Mean Corpuscular 94.9 Volume Mean Corpuscular 30.2 Hemoglobin Mean Corpuscular 31.9 L Hemoglobin Concent Red Cell 13.8 Distribution Width Platelet Count 437 #H Mean Platelet Volume 9.5 Immature 0.700 H Granulocytes % Neutrophils % 73.7 Lymphocytes % 17.3 Monocytes % 6.7 Eosinophils % 1.1 Basophils % 0.5 Nucleated Red Blood 0.0 Cells % Immature 0.060 H Granulocytes # Neutrophils # 6.3 Lymphocytes # 1.5 Monocytes # 0.6 Eosinophils # 0.1 Basophils # 0.0 Nucleated Red Blood 0.0 Cells # Sodium Level 138 Potassium Level 4.1 Chloride Level 104 Carbon Dioxide Level 28 Anion Gap 6 Blood Urea Nitrogen 14 Creatinine 1.33 H Est Glomerular 54 L Filtrat Rate mL/min Glucose Level 224 H Calcium Level 8.9 Phosphorus Level 4.4 Magnesium Level 2.1 Exam/Review of Systems Exam Vitals Vital Signs Date Temp Pulse Resp B/P (MAP) Pulse Ox O2 O2 Flow FiO2 Time Delivery Rate 12/18/18 92 15.0 50 09:09 12/18/18 85 20 08:42 12/18/18 98.5 145/78 04:00 (100) 12/17/18 Simple 23:48 Mask Intake and Output 12/17/18 12/17/18 12/18/18 1515:00 23:00 07:00 IntakeIntake Total 420 ml 200 ml BalanceBalance 420 ml 200 ml Results Results 24hrs Laboratory Tests Test 12/17/18 11:37 12/17/18 12:10 12/17/18 16:26 12/17/18 17:55 Activated 43.5 H Partial Thromboplast Time Bedside Glucose 177 206 206 Test 12/17/18 21:30 12/18/18 07:18 12/18/18 08:53 Bedside Glucose 216 228 H White Blood Count 8.5 Red Blood Count 3.11 L Hemoglobin 9.4 L Hematocrit 29.5 L Mean Corpuscular 94.9 Volume Mean Corpuscular 30.2 Hemoglobin Mean Corpuscular 31.9 L Hemoglobin Concent Red Cell 13.8 Distribution Width Platelet Count 437 #H Mean Platelet Volume 9.5 Immature 0.700 H Granulocytes % Neutrophils % 73.7 Lymphocytes % 17.3 Monocytes % 6.7 Eosinophils % 1.1 Basophils % 0.5 Nucleated Red Blood 0.0 Cells % Immature 0.060 H Granulocytes # Neutrophils # 6.3 Lymphocytes # 1.5 Monocytes # 0.6 Eosinophils # 0.1 Basophils # 0.0 Nucleated Red Blood 0.0 Cells # Sodium Level 138 Potassium Level 4.1 Chloride Level 104 Carbon Dioxide Level 28 Anion Gap 6 Blood Urea Nitrogen 14 Creatinine 1.33 H Est Glomerular 54 L Filtrat Rate mL/min Glucose Level 224 H Calcium Level 8.9 Phosphorus Level 4.4 Magnesium Level 2.1 Medications Medication Current Medications IV Flush (NS 3 ml) 3 ml PER PROTOCOL IV ; Start 12/15/18 at 17:00 Ondansetron HCl (Zofran Inj) 4 mg Q6H PRN IV NAUSEA/VOMITING Last administered on 12/17/18at 08:08; Admin Dose 4 MG; Start 12/15/18 at 17:00 Acetaminophen (Tylenol Tab) 650 mg Q6H PRN PO .PAIN 1-3 OR TEMP; Start 12/15/18 at 17:00 Acetaminophen/ Hydrocodone Bitart ([place] (5/325)) 1 tab Q6H PRN PO .PAIN 4-[address] administered on 12/16/18at 08:08; Admin Dose 1 TAB; Start 12/15/18 at 17:00 Famotidine (Pepcid Iv) 20 mg BID@06,18 IV Last administered on 12/18/18at 06:39; Admin Dose 20 MG; Start 12/15/18 at 18:00 Sucralfate (Carafate Susp) 1 gm QID PO Last administered on 12/17/18at 21:33; Admin Dose 1 GM; Start 12/15/18 at 17:00 Atorvastatin Calcium (Lipitor) 80 mg HS PO Last administered on 12/17/18 21:33; Admin Dose 80 MG; Start 12/15/18 at 21:00 Diagnostic Test (Pha) (Accu-Chek) 1 ea 02 XX Last administered on 12/17/18at 02:02; Admin Dose 1 EA; Start 12/16/18 at 02:00 Insulin Glargine (Lantus) 30 units DAILY@2000 SC Last administered on 12/17/18at 21:47; Admin Dose 30 UNITS; Start 12/15/18 at 20:00 Insulin Aspart (Novolog Insulin Pen) NOVOLOG *MILD* ALGORITHM WITH MEALS BEDTIME SC Last administered on 12/18/18at 09:08; Admin Dose 3 UNIT; Start 12/15/18 at 18:00 Miscellaneous Information 1 ea NOTE XX ; Start 12/15/18 at 17:30 Glucose (Glutose) 15 gm Q15M PRN PO DECREASED GLUCOSE; Start 12/15/18 at 17:30 Glucose (Glutose) 22.5 gm Q15M PRN PO DECREASED GLUCOSE; Start 12/15/18 at 17:30 Dextrose (D50w Syringe) 25 ml Q15M PRN IV DECREASED GLUCOSE; Start 12/15/18 at 17:30 Dextrose (D50w Syringe) 50 ml Q15M PRN IV DECREASED GLUCOSE; Start 12/15/18 at 17:30 Glucagon (Glucagen) 1 mg Q15M PRN IM DECREASED GLUCOSE; Start 12/15/18 at 17:30 Glucose (Glutose) 15 gm Q15M PRN BUCCAL DECREASED GLUCOSE; Start 12/15/18 at 17:30 Aspirin (Aspirin) 81 mg DAILY PO Last administered on 12/17/18 08:47; Admin Dose 81 MG; Start 12/16/18 at 09:00 Nitroglycerin (Nitroglycerin (Sl Tab) 0.4 Mg) 1 tab Q5M PRN SL ANGINA; Start 12/15/18 at 17:30 Morphine Sulfate (morphine) 2 mg Q4H PRN IV SEVERE PAIN LEVEL 7-10 Last administered on 12/17/18 07:05; Admin Dose 2 MG; Start 12/15/18 at 17:30 Albuterol/ Ipratropium (Duoneb) 3 ml Q2H RESP THERAPY PRN HHN shortness of breath; Start 12/15/18 at 17:30 Levalbuterol (Xopenex Neb) 0.63 mg Q6H RESP THERAPY HHN Last administered on 12/18/18 09:14; Admin Dose 0.63 MG; Start 12/16/18 at 02:00 Ipratropium [place] (Atrovent 0.02% (Neb)) 0.5 mg Q6H RESP THERAPY HHN Last administered on 12/18/18 08:41; Admin Dose 0.5 MG; Start 12/16/18 at 02:00 Levalbuterol (Xopenex Neb) 1.25 mg Q4H RESP THERAPY PRN HHN sob Last administered on 12/18/18 08:41; Admin Dose 1.25 MG; Start 12/16/18 at 02:00 Acetaminophen/ Butalbital/ Caffeine (Fioricet) 1 tab Q6H PRN PO PAIN Last administered on 12/16/18 11:08; Admin Dose 1 TAB; Start 12/16/18 at 08:30 Multivitamins Therapeutic (Theragran) 1 tab DAILY PO Last administered on 12/17/18 08:47; Admin Dose 1 TAB; Start 12/17/18 at 09:00 Metoprolol Tartrate (Lopressor) 50 mg BID PO Last administered on 12/17/18 21:33; Admin Dose 50 MG; Start 12/16/18 at 21:00 Isosorbide Mononitrate (Imdur) 30 mg DAILY PO Last administered on 12/17/18 08:48; Admin Dose 30 MG; Start 12/16/18 at 12:30 Insulin Aspart (Novolog Insulin Pen) 7 unit WITH MEALS SC Last administered on 12/18/18at 09:07; Admin Dose 7 UNIT; Start 12/17/18 at 17:55 Lorazepam (Ativan) 1 mg Q8H PRN IV Anxiety Last administered on 12/17/18at 18:49; Admin Dose 1 MG; Start 12/17/18 at 12:30 Hydralazine HCl (Apresoline) 10 mg Q4H PRN IV SBP >170 Last administered on 12/17/18at 15:54; Admin Dose 10 MG; Start 12/17/18 at 15:30 Furosemide (Lasix) 20 mg BID DIURETICS IV Last administered on 12/18/18at 06:39; Admin Dose 20 MG; Start 12/17/18 at 18:00 Cefazolin Sodium/ Dextrose 50 ml @ 100 mls/hr PRE-OP IVPB ; Start 12/18/18 at 12:00; Stop 12/18/18 at 20:00 Insulin Human Regular 100 unit/ Sodium Chloride 100 ml @ 0 mls/hr Q0M ONCE IVPB ; Start 12/18/18 at 14:00; Stop 12/18/18 at 14:01 Norepinephrine 250 ml @ 0 mls/hr ONCE ONCE IV ; Start 12/18/18 at 14:00; Stop 12/18/18 at 14:01 Epinephrine 4 mg/ Dextrose 250 ml @ 0 mls/hr Q0M ONCE IV ; Start 12/18/18 at 1 4:00; Stop 12/18/18 at 14:01 Phenylephrine HCl 250 ml @ 0 mls/hr ONCE ONCE IV ; Start 12/18/18 at 14:00; Stop 12/18/18 at 14:01 Aspirin (Aspirin) 600 mg ONCE ONCE WA ; Start 12/18/18 at 14:00; Stop 12/18/18 at 14:01 Heparin Sodium (Porcine) 98970 unit/Milrinone Lactate 10 mg/ Sodium Chloride 1,011 ml @ 0 mls/hr ONCE ONCE SC ; Start 12/18/18 at 14:00; Stop 12/18/18 at 14:01 Milrinone Lactate 2 mg/Sodium Chloride 52 ml @ 0 mls/hr ONCE ONCE IV ; Start 12/18/18 at 14:00; Stop 12/18/18 at 14:01 MALLORY AMOS NP December 18, 2018 10:02
[2018-12-18] MEDS: MULTIVITAMINS THERAPEUTIC TAB PO SCH (11:41)
[2018-12-18] MEDS: SUCRALFATE (100 MG/ML) 10ML CUP PO SCH ×2 (11:41→13:00)
[2018-12-18] MEDS: METOPROLOL 25 MG TAB PO SCH (11:42)
[2018-12-18] MEDS: ISOSORBIDE MONONITRATE(SR)30 MG TAB PO SCH (11:42)
[2018-12-18] MEDS ORDERED: CEFAZOLIN 2 GM/50 ML (PMX) 50 ML IVPB SCH (12:00)
--- NOTE | 2018-12-18 12:27 | CONS ---
Assessment/Plan Assessment/Plan Hospital Course (Demo Recall) 1) CAD with NSTEMI pt to get bypass surgery later today WBC is WNL and blood cx are neg pt to get merrem prior to surgery due to e.coli in urine ok for surgery from ID perspective 2)?UTI pt has a reason for polyuria due to his DM not in control he denies dysuria his u/a here is neg likely the e.coli in urine is colonization but since he is getting a johnson for his surgery today I agree with starting the meropenem prior to surgery repeat u/a and if again no significant wbc, rbc then will d/c merrem later 3) DM 4) EtOH abuse no alcohol for one week so far and no seizures pt had remote hx of alcohol induced seizures merrem is minimally associated with seizures but he is far enough away from alcohol withdrawal seizures that it should be ok 5) HTN Consultation Date/Type/Reason Admit Date/Time Dec 15, 2018 at 16:16 Date of Consultation: December 18, 2018 Type of Consult ID Date/Time of Note DATE: 12/18/18 TIME: 12:10 Hx of Present Illness pt was admitted on 12/15 due to LE swelling, worsening abd pain He was recently in the hospital at [facility] for acute alcohol intoxication and DM out of control he had mild pyuria with neg urine cx but was sent home on oral levaquin for possible UTI pt c/o polyuria for a while but also his DM is not in control he denies dysuria No F, C He has some SOB and a chronic cough for years with white phlegm no V but has some N no rashes, joint pains Past Medical History Medical History: coronary artery disease, diabetes, hypertension Home Meds Active Scripts Gabapentin* (Gabapentin*) 300 Mg Capsule, 300 MG PO TID, #90 CAP Prov:RADHA ROTHMAN 12/11/18 Ciprofloxacin Hcl* (Ciprofloxacin Hcl*) 250 Mg Tablet, 250 MG PO BID for 3 Days, #6 TAB Prov:RADHA ROTHMAN 12/11/18 Furosemide* (Furosemide*) 20 Mg Tablet, 20 MG PO DAILY for 3 Days, #3 TAB Prov:FOX JAVED 09/02/18 Omeprazole* (Omeprazole*) 20 Mg Capsule., 20 MG PO DAILY, #30 CAP Prov:RENU WHITE 08/22/18 Levofloxacin* (Levaquin*) 500 Mg Tablet, 500 MG PO DAILY for 5 Days, #5 TAB Prov:CHRISTOPHERKALEIGH 08/22/18 Salmeterol Xinaf/Fluticasone* (Advair*) 250-50 Diskus Inhaler, 1 INH INH BID for 30 Days Prov:SANAZ DAVIS MD 04/15/17 Aspirin* (Aspirin* EC) 81 Mg Tablet.dr, 81 MG PO DAILY for 30 Days Prov:SANAZ DAVIS MD 04/15/17 Atorvastatin* (Atorvastatin*) 40 Mg Tablet, 40 MG PO HS for 30 Days, TAB Prov:SANAZ DAVIS MD 04/15/17 Clopidogrel Bisulfate (Clopidogrel) 75 Mg Tablet, 75 MG PO DAILY for 30 Days, TAB Prov:SANAZ DAVIS MD 04/15/17 Amlodipine Besylate* (Norvasc*) 5 Mg Tablet, 2.5 MG PO DAILY for 30 Days, TAB Prov:SANAZ DAVIS MD 04/15/17 Insulin Aspart* (Novolog Insulin Pen*) 100 Unit/Ml Soln, 15 UNIT SC WITH MEALS for 30 Days, #1 SYR Prov:HERRERA,BRANDON V. BALL ROLLING MACHINE OPERATOR 03/23/17 Metformin Hcl (Glucophage) 500 Mg Tablet, 1000 MG PO BID WITH MEALS for 30 Days, #60 TAB Prov:HERRERA,BRANDON V. BALL ROLLING MACHINE OPERATOR 03/23/17 Linagliptin (TRADJENTA) 5 Mg Tablet, 5 MG PO DAILY for 30 Days, #30 TAB Prov:HERRERA,BRANDON V. BALL ROLLING MACHINE OPERATOR 03/23/17 Insulin Glargine* (Lantus*) 100 Unit/Ml Soln, 45 UNIT SC HS for 30 Days, #1 SYR Prov:HERRERA,BRANDON V. BALL ROLLING MACHINE OPERATOR 03/23/17 Reported Medications Ergocalciferol (Vitamin D2) (VITAMIN D2) 2,000 Unit Tablet, 2000 UNIT PO DAILY, TAB 03/15/17 Medications Current Medications IV Flush (NS 3 ml) 3 ml PER PROTOCOL IV ; Start 12/15/18 at 17:00 Ondansetron HCl (Zofran Inj) 4 mg Q6H PRN IV NAUSEA/VOMITING Last administered on 12/17/18at 08:08; Admin Dose 4 MG; Start 12/15/18 at 17:00 Acetaminophen (Tylenol Tab) 650 mg Q6H PRN PO .PAIN 1-3 OR TEMP; Start 12/15/18 at 17:00 Acetaminophen/ Hydrocodone Bitart ([place] (5/325)) 1 tab Q6H PRN PO .PAIN 4-6 Last administered on 12/16/18at 08:08; Admin Dose 1 TAB; Start 12/15/18 at 17:00 Famotidine (Pepcid Iv) 20 mg BID@06,18 IV Last administered on 12/18/18at 06:39; Admin Dose 20 MG; Start 12/15/18 at 18:00 Sucralfate (Carafate Susp) 1 gm QID PO Last administered on 12/18/18at 11:41; Admin Dose 1 GM; Start 12/15/18 at 17:00 Atorvastatin Calcium (Lipitor) 80 mg HS PO Last administered on 12/17/18at 21:33; Admin Dose 80 MG; Start 12/15/18 at 21:00 Diagnostic Test (Pha) (Accu-Chek) 1 ea 02 XX Last administered on 12/17/18at 02:02; Admin Dose 1 EA; Start 12/16/18 at 02:00 Insulin Glargine (Lantus) 30 units DAILY@2000 SC Last administered on 12/17/18at 21:47; Admin Dose 30 UNITS; Start 12/15/18 at 20:00 Insulin Aspart (Novolog Insulin Pen) NOVOLOG *MILD* ALGORITHM WITH MEALS BEDTIME SC Last administered on 12/18/18at 09:08; Admin Dose 3 UNIT; Start 12/15/18 at 18:00 Miscellaneous Information 1 ea NOTE XX ; Start 12/15/18 at 17:30 Glucose (Glutose) 15 gm Q15M PRN PO DECREASED GLUCOSE; Start 12/15/18 at 17:30 Glucose (Glutose) 22.5 gm Q15M PRN PO DECREASED GLUCOSE; Start 12/15/18 at 17:30 Dextrose (D50w Syringe) 25 ml Q15M PRN IV DECREASED GLUCOSE; Start 12/15/18 at 17:30 Dextrose (D50w Syringe) 50 ml Q15M PRN IV DECREASED GLUCOSE; Start 12/15/18 at 17:30 Glucagon (Glucagen) 1 mg Q15M PRN IM DECREASED GLUCOSE; Start 12/15/18 at 17:30 Glucose (Glutose) 15 gm Q15M PRN BUCCAL DECREASED GLUCOSE; Start 12/15/18 at 17:30 Aspirin (Aspirin) 81 mg DAILY PO Last administered on 12/17/18 08:47; Admin Dose 81 MG; Start 12/16/18 at 09:00 Nitroglycerin (Nitroglycerin (Sl Tab) 0.4 Mg) 1 tab Q5M PRN SL ANGINA; Start 12/15/18 at 17:30 Morphine Sulfate (morphine) 2 mg Q4H PRN IV SEVERE PAIN LEVEL 7-10 Last admin istered on 12/17/18 07:05; Admin Dose 2 MG; Start 12/15/18 at 17:30 Albuterol/ Ipratropium (Duoneb) 3 ml Q2H RESP THERAPY PRN HHN shortness of breath; Start 12/15/18 at 17:30 Levalbuterol (Xopenex Neb) 0.63 mg Q6H RESP THERAPY HHN Last administered on 12/18/18 09:14; Admin Dose 0.63 MG; Start 12/16/18 at 02:00 Ipratropium [place] (Atrovent 0.02% (Neb)) 0.5 mg Q6H RESP THERAPY HHN Last administered on 12/18/18 08:41; Admin Dose 0.5 MG; Start 12/16/18 at 02:00 Levalbuterol (Xopenex Neb) 1.25 mg Q4H RESP THERAPY PRN HHN sob Last administered on 12/18/18 08:41; Admin Dose 1.25 MG; Start 12/16/18 at 02:00 Acetaminophen/ Butalbital/ Caffeine (Fioricet) 1 tab Q6H PRN PO PAIN Last administered on 12/16/18 11:08; Admin Dose 1 TAB; Start 12/16/18 at 08:30 Multivitamins Therapeutic (Theragran) 1 tab DAILY PO Last administered on 12/18/18 11:41; Admin Dose 1 TAB; Start 12/17/18 at 09:00 Metoprolol Tartrate (Lopressor) 50 mg BID PO Last administered on 12/18/18 11:42; Admin Dose 50 MG; Start 12/16/18 at 21:00 Isosorbide Mononitrate (Imdur) 30 mg DAILY PO Last administered on 12/18/18at 11:42; Admin Dose 30 MG; Start 12/16/18 at 12:30 Insulin Aspart (Novolog Insulin Pen) 7 unit WITH MEALS SC Last administered on 12/18/18at 09:07; Admin Dose 7 UNIT; Start 12/17/18 at 17:55 Lorazepam (Ativan) 1 mg Q8H PRN IV Anxiety Last administered on 12/17/18at 18:49; Admin Dose 1 MG; Start 12/17/18 at 12:30 Hydralazine HCl (Apresoline) 10 mg Q4H PRN IV SBP >170 Last administered on 12/17/18at 15:54; Admin Dose 10 MG; Start 12/17/18 at 15:30 Furosemide (Lasix) 20 mg BID DIURETICS IV Last administered on 12/18/18at 06:39; Admin Dose 20 MG; Start 12/17/18 at 18:00 Cefazolin Sodium/ Dextrose 50 ml @ 100 mls/hr PRE-OP IVPB ; Start 12/18/18 at 12:00; Stop 12/18/18 at 20:00 Insulin Human Regular 100 unit/ Sodium Chloride 100 ml @ 0 mls/hr Q0M ONCE IVPB ; Start 12/18/18 at 14:00; Stop 12/18/18 at 14:01 Norepinephrine 250 ml @ 0 mls/hr ONCE ONCE IV ; Start 12/18/18 at 14:00; Stop 12/18/18 at 14:01 Epinephrine 4 mg/ Dextrose 250 ml @ 0 mls/hr Q0M ONCE IV ; Start 12/18/18 at 14:00; Stop 12/18/18 at 14:01 Phenylephrine HCl 250 ml @ 0 mls/hr ONCE ONCE IV ; Start 12/18/18 at 14:00; Stop 12/18/18 at 14:01 Aspirin (Aspirin) 600 mg ONCE ONCE IN ; Start 12/18/18 at 14:00; Stop 12/18/18 at 14:01 Heparin Sodium (Porcine) 15670 unit/Milrinone Lactate 10 mg/ Sodium Chloride 1,011 ml @ 0 mls/hr ONCE ONCE SC ; Start 12/18/18 at 14:00; Stop 12/18/18 at 14:01 Milrinone Lactate 2 mg/Sodium Chloride 52 ml @ 0 mls/hr ONCE ONCE IV ; Start 12/18/18 at 14:00; Stop 12/18/18 at 14:01 Meropenem/Sodium Chloride 50 ml @ 100 mls/hr Q12 IVPB ; Start 12/18/18 at 10:00 Allergies: Coded Allergies: No Known Allergy (Unverified , 08/30/18) Past Surgical History hernia repair Past Surgical Hx: other (right LE venous ulcers) Social History Alcohol Use: occasionally Smoking Status: Never smoker Drug Use: none Exam/Review of Systems Exam Vitals Vital Signs Date Temp Pulse Resp B/P (MAP) Pulse Ox O2 O2 Flow FiO2 Time Delivery Rate 12/18/18 98.6 78 18 126/58 96 Nasal 11:24 (80) Cannula 12/18/18 15.0 100 10:36 Intake and Output 12/17/18 12/17/18 12/18/18 1515:00 23:00 07:00 IntakeIntake Total 420 ml 200 ml BalanceBalance 420 ml 200 ml Constitutional: alert, oriented Eyes: nl sclera ENMT: mucosa pink and moist Respiratory: clear to auscultation Cardiovascular: regular rate and rhythm Gastrointestinal: soft, non-tender, other (no pain over bladder) Extremities: other (edema to LE 2+) Neurological: other (moves all extremities) Results Result Diagram: 12/18/1818 12/18/18 0718 Results 24hrs Laboratory Tests Test 12/17/18 16:26 12/17/18 17:55 12/17/18 21:30 12/18/18 07:18 Bedside Glucose 206 206 216 White Blood Count 8.5 Red Blood Count 3.11 L Hemoglobin 9.4 L Hematocrit 29.5 L Mean Corpuscular 94.9 Volume Mean Corpuscular 30.2 Hemoglobin Mean Corpuscular 31.9 L Hemoglobin Concent Red Cell Distribution 13.8 Width Platelet Count 437 #H Mean Platelet Volume 9.5 Immature Granulocytes 0.700 H % Neutrophils % 73.7 Lymphocytes % 17.3 Monocytes % 6.7 Eosinophils % 1.1 Basophils % 0.5 Nucleated Red Blood 0.0 Cells % Immature Granulocytes 0.060 H # Neutrophils # 6.3 Lymphocytes # 1.5 Monocytes # 0.6 Eosinophils # 0.1 Basophils # 0.0 Nucleated Red Blood 0.0 Cells # Sodium Level 138 Potassium Level 4.1 Chloride Level 104 Carbon Dioxide Level 28 Anion Gap 6 Blood Urea Nitrogen 14 Creatinine 1.33 H Est Glomerular 54 L Filtrat Rate mL/min Glucose Level 224 H Calcium Level 8.9 Phosphorus Level 4.4 Magnesium Level 2.1 Test 12/18/18 08:53 Bedside Glucose 228 H Medications Medication Current Medications IV Flush (NS 3 ml) 3 ml PER PROTOCOL IV ; Start 12/15/18 at 17:00 Ondansetron HCl (Zofran Inj) 4 mg Q6H PRN IV NAUSEA/VOMITING Last administered on 12/17/18 08:08; Admin Dose 4 MG; Start 12/15/18 at 17:00 Acetaminophen (Tylenol Tab) 650 mg Q6H PRN PO .PAIN 1-3 OR TEMP; Start 12/15/18 at 17:00 Acetaminophen/ Hydrocodone Bitart ([place] (5/325)) 1 tab Q6H PRN PO .PAIN 4-6 Last administered on 12/16/18at 08:08; Admin Dose 1 TAB; Start 12/15/18 at 17:00 Famotidine (Pepcid Iv) 20 mg BID@06,18 IV Last administered on 12/18/18 06:39; Admin Dose 20 MG; Start 12/15/18 at 18:00 Sucralfate (Carafate Susp) 1 gm QID PO Last administered on 12/18/18at 11:41; Admin Dose 1 GM; Start 12/15/18 at 17:00 Atorvastatin Calcium (Lipitor) 80 mg HS PO Last administered on 12/17/18at 21:33; Admin Dose 80 MG; Start 12/15/18 at 21:00 Diagnostic Test (Pha) (Accu-Chek) 1 ea 02 XX Last administered on 12/17/18at 02:02; Admin Dose 1 EA; Start 12/16/18 at 02:00 Insulin Glargine (Lantus) 30 units DAILY@1999 SC Last administered on 12/17/18at 21:47; Admin Dose 30 UNITS; Start 12/15/18 at 20:00 Insulin Aspart (Novolog Insulin Pen) NOVOLOG *MILD* ALGORITHM WITH MEALS BEDTIME SC Last administered on 12/18/18 09:08; Admin Dose 3 UNIT; Start 12/15/18 at 18:00 Miscellaneous Information 1 ea NOTE XX ; Start 12/15/18 at 17:30 Glucose (Glutose) 15 gm Q15M PRN PO DECREASED GLUCOSE; Start 12/15/18 at 17:30 Glucose (Glutose) 22.5 gm Q15M PRN PO DECREASED GLUCOSE; Start 12/15/18 at 17:30 Dextrose (D50w Syringe) 25 ml Q15M PRN IV DECREASED GLUCOSE; Start 12/15/18 at 17:30 Dextrose (D50w Syringe) 50 ml Q15M PRN IV DECREASED GLUCOSE; Start 12/15/18 at 17:30 Glucagon (Glucagen) 1 mg Q15M PRN IM DECREASED GLUCOSE; Start 12/15/18 at 17:30 Glucose (Glutose) 15 gm Q15M PRN BUCCAL DECREASED GLUCOSE; Start 12/15/18 at 17:30 Aspirin (Aspirin) 81 mg DAILY PO Last administered on 12/17/18at 08:47; Admin Dose 81 MG; Start 12/16/18 at 09:00 Nitroglycerin (Nitroglycerin (Sl Tab) 0.4 Mg) 1 tab Q5M PRN SL ANGINA; Start 12/15/18 at 17:30 Morphine Sulfate (morphine) 2 mg Q4H PRN IV SEVERE PAIN LEVEL 7-10 Last administered on 12/17/18at 07:05; Admin Dose 2 MG; Start 12/15/18 at 17:30 Albuterol/ Ipratropium (Duoneb) 3 ml Q2H RESP THERAPY PRN HHN shortness of breath; Start 12/15/18 at 17:30 Levalbuterol (Xopenex Neb) 0.63 mg Q6H RESP THERAPY HHN Last administered on 12/18/18at 09:14; Admin Dose 0.63 MG; Start 12/16/18 at 02:00 Ipratropium [place] (Atrovent 0.02% (Neb)) 0.5 mg Q6H RESP THERAPY HHN Last a dministered on 12/18/18at 08:41; Admin Dose 0.5 MG; Start 12/16/18 at 02:00 Levalbuterol (Xopenex Neb) 1.25 mg Q4H RESP THERAPY PRN HHN sob Last administered on 12/18/18 08:41; Admin Dose 1.25 MG; Start 12/16/18 at 02:00 Acetaminophen/ Butalbital/ Caffeine (Fioricet) 1 tab Q6H PRN PO PAIN Last admin istered on 12/16/18 11:08; Admin Dose 1 TAB; Start 12/16/18 at 08:30 Multivitamins Therapeutic (Theragran) 1 tab DAILY PO Last administered on 12/18/18 11:41; Admin Dose 1 TAB; Start 12/17/18 at 09:00 Metoprolol Tartrate (Lopressor) 50 mg BID PO Last administered on 12/18/18 11:42; Admin Dose 50 MG; Start 12/16/18 at 21:00 Isosorbide Mononitrate (Imdur) 30 mg DAILY PO Last administered on 12/18/18 11:42; Admin Dose 30 MG; Start 12/16/18 at 12:30 Insulin Aspart (Novolog Insulin Pen) 7 unit WITH MEALS SC Last administered on 12/18/18 09:07; Admin Dose 7 UNIT; Start 12/17/18 at 17:55 Lorazepam (Ativan) 1 mg Q8H PRN IV Anxiety Last administered on 12/17/18 18:49; Admin Dose 1 MG; Start 12/17/18 at 12:30 Hydralazine HCl (Apresoline) 10 mg Q4H PRN IV SBP >170 Last administered on 12/17/18at 15:54; Admin Dose 10 MG; Start 12/17/18 at 15:30 Furosemide (Lasix) 20 mg BID DIURETICS IV Last administered on 12/18/18at 06:39; Admin Dose 20 MG; Start 12/17/18 at 18:00 Cefazolin Sodium/ Dextrose 50 ml @ 100 mls/hr PRE-OP IVPB ; Start 12/18/18 at 12:00; Stop 12/18/18 at 20:00 Insulin Human Regular 100 unit/ Sodium Chloride 100 ml @ 0 mls/hr Q0M ONCE IVPB ; Start 12/18/18 at 14:00; Stop 12/18/18 at 14:01 Norepinephrine 250 ml @ 0 mls/hr ONCE ONCE IV ; Start 12/18/18 at 14:00; Stop 12/18/18 at 14:01 Epinephrine 4 mg/ Dextrose 250 ml @ 0 mls/hr Q0M ONCE IV ; Start 12/18/18 at 14:00; Stop 12/18/18 at 14:01 Phenylephrine HCl 250 ml @ 0 mls/hr ONCE ONCE IV ; Start 12/18/18 at 14:00; Stop 12/18/18 at 14:01 Aspirin (Aspirin) 600 mg ONCE ONCE IN ; Start 12/18/18 at 14:00; Stop 12/18/18 at 14:01 Heparin Sodium (Porcine) 66239 unit/Milrinone Lactate 10 mg/ Sodium Chloride 1,011 ml @ 0 mls/hr ONCE ONCE SC ; Start 12/18/18 at 14:00; Stop 12/18/18 at 14:01 Milrinone Lactate 2 mg/Sodium Chloride 52 ml @ 0 mls/hr ONCE ONCE IV ; Start 12/18/18 at 14:00; Stop 12/18/18 at 14:01 Meropenem/Sodium Chloride 50 ml @ 100 mls/hr Q12 IVPB ; Start 12/18/18 at 10:00 GIULIANA MELENDEZ MD December 18, 2018 12:24
[2018-12-18] MEDS ORDERED: VANCOMYCIN 1 GM INJ ONE (13:26)
[2018-12-18] MEDS ORDERED: HEPARIN 1000 UNITS/ML 10 ML INJ ONE ×6 (13:27→18:29)
[2018-12-18] MEDS ORDERED: PAPAVERINE 60 MG INJ ONE (13:27)
[2018-12-18] MEDS ORDERED: EPINEPHrine 4 MG in DEXTROSE 5% 246 ML IV ONE (14:00)
[2018-12-18] MEDS ORDERED: PHENYLephrine 20MG IN 250 ML 250 ML IV ONE (14:00)
[2018-12-18] MEDS ORDERED: HEPARIN (10000 UNITS/ML) 10,000 UNIT, MILRINONE LACTATE 10 MG in SOD CHLORIDE 0.9% 1,00... SC ONE (14:00)
[2018-12-18] MEDS ORDERED: INSULIN HUMAN REGULAR 100 UNIT in SOD CHLORIDE 0.9% 99 ML IVPB ONE (14:00)
[2018-12-18] MEDS ORDERED: ASPIRIN 600 MG SUPP PR ONE (14:00)
[2018-12-18] MEDS ORDERED: MILRINONE LACTATE 2 MG in SOD CHLORIDE 0.9% 50 ML IV ONE (14:00)
[2018-12-18] MEDS ORDERED: NORepinephrine 8MG/250 ML (PMX 250 ML IV ONE (14:00)
--- NOTE | 2018-12-18 14:58 | PREAC ---
Date/Time of Note Date/Time of Note DATE: 12/18/18 TIME: 14:55 Anesthesia Eval and Record Evaluation Time Pre-Procedure Interview DATE: 12/18/18 TIME: 14:55 Age 63 Sex male NPO: 8 hrs Preoperative diagnosis CAD Planned procedure CABG Past Medical History Past Medical History: Includes Cardio: HTN, Dyslipidemia, RI, CAD Endo: Diabetes Pulm: COPD GI: Morbid obesity Surgery & Anesthesia Issues No known issue Meds Anticoagulation: Yes Beta Rebeka within 24 hr: No Reason Beta Rebeka not given: Pt. not on B-Rebeka Active Scripts Gabapentin* (Gabapentin*) 300 Mg Capsule, 300 MG PO TID, #90 CAP Prov:RADHA ROTHMAN 12/11/18 Ciprofloxacin Hcl* (Ciprofloxacin Hcl*) 250 Mg Tablet, 250 MG PO BID for 3 Days, #6 TAB Prov:RADHA ROTHMAN 12/11/18 Furosemide* (Furosemide*) 20 Mg Tablet, 20 MG PO DAILY for 3 Days, #3 TAB Prov:FOX JAVED 09/02/18 Omeprazole* (Omeprazole*) 20 Mg Capsule., 20 MG PO DAILY, #30 CAP Prov:RENU WHITE 08/22/18 Levofloxacin* (Levaquin*) 500 Mg Tablet, 500 MG PO DAILY for 5 Days, #5 TAB Prov:RENU WHITE 08/22/18 Salmeterol Xinaf/Fluticasone* (Advair*) 250-50 Diskus Inhaler, 1 INH INH BID for 30 Days Prov:SANAZ DAVIS MD 04/15/17 Aspirin* (Aspirin* EC) 81 Mg Tablet., 81 MG PO DAILY for 30 Days Prov:SANAZ DAVIS MD 04/15/17 Atorvastatin* (Atorvastatin*) 40 Mg Tablet, 40 MG PO HS for 30 Days, TAB Prov:SANAZ DAVIS MD 04/15/17 Clopidogrel Bisulfate (Clopidogrel) 75 Mg Tablet, 75 MG PO DAILY for 30 Days, TAB Prov:SANAZ DAVIS MD 04/15/17 Amlodipine Besylate* (Norvasc*) 5 Mg Tablet, 2.5 MG PO DAILY for 30 Days, TAB Prov:SANAZ DAVIS MD 04/15/17 Insulin Aspart* (Novolog Insulin Pen*) 100 Unit/Ml Soln, 15 UNIT SC WITH MEALS for 30 Days, #1 SYR Prov:HERRERA,BRANDON V. LEAD SOFTWARE TESTER 03/23/17 Metformin Hcl (Glucophage) 500 Mg Tablet, 1000 MG PO BID WITH MEALS for 30 Days, #60 TAB Prov:HERRERA,BRANDON V. LEAD SOFTWARE TESTER 03/23/17 Linagliptin (TRADJENTA) 5 Mg Tablet, 5 MG PO DAILY for 30 Days, #30 TAB Prov:HERRERA,BRANDON V. LEAD SOFTWARE TESTER 03/23/17 Insulin Glargine* (Lantus*) 100 Unit/Ml Soln, 45 UNIT SC HS for 30 Days, #1 SYR Prov:HERRERA,BRANDON V. LEAD SOFTWARE TESTER 03/23/17 Reported Medications Ergocalciferol (Vitamin D2) (VITAMIN D2) 2,000 Unit Tablet, 2000 UNIT PO DAILY, TAB 03/15/17 Current Medications IV Flush (NS 3 ml) 3 ml PER PROTOCOL IV ; Start 12/15/18 at 17:00 Ondansetron HCl (Zofran Inj) 4 mg Q6H PRN IV NAUSEA/VOMITING Last administered on 12/17/18at 08:08; Admin Dose 4 MG; Start 12/15/18 at 17:00 Acetaminophen (Tylenol Tab) 650 mg Q6H PRN PO .PAIN 1-3 OR TEMP; Start 12/15/18 at 17:00 Acetaminophen/ Hydrocodone Bitart ([place] (5/325)) 1 tab Q6H PRN PO .PAIN 4-6 Last administered on 12/16/18at 08:08; Admin Dose 1 TAB; Start 12/15/18 at 17:00 Famotidine (Pepcid Iv) 20 mg BID@06,18 IV Last administered on 12/18/18at 06:39; Admin Dose 20 MG; Start 12/15/18 at 18:00 Sucralfate (Carafate Susp) 1 gm QID PO Last administered on 12/18/18at 11:41; Admin Dose 1 GM; Start 12/15/18 at 17:00 Atorvastatin Calcium (Lipitor) 80 mg HS PO Last administered on 12/17/18at 21:33; Admin Dose 80 MG; Start 12/15/18 at 21:00 Diagnostic Test (Pha) (Accu-Chek) XX Last administered on 12/17/18at 02:02; Admin Dose 1 EA; Start 12/16/18 at 02:00 Insulin Glargine (Lantus) 30 units DAILY@2000 SC Last administered on 12/17/18at 21:47; Admin Dose 30 UNITS; Start 12/15/18 at 20:00 Insulin Aspart (Novolog Insulin Pen) NOVOLOG *MILD* ALGORITHM WITH MEALS BEDTIME SC Last administered on 12/18/18 09:08; Admin Dose 3 UNIT; Start 12/15/18 at 18:00 Miscellaneous Information 1 ea NOTE XX ; Start 12/15/18 at 17:30 Glucose (Glutose) 15 gm Q15M PRN PO DECREASED GLUCOSE; Start 12/15/18 at 17:30 Glucose (Glutose) 22.5 gm Q15M PRN PO DECREASED GLUCOSE; Start 12/15/18 at 17:30 Dextrose (D50w Syringe) 25 ml Q15M PRN IV DECREASED GLUCOSE; Start 12/15/18 at 17:30 Dextrose (D50w Syringe) 50 ml Q15M PRN IV DECREASED GLUCOSE; Start 12/15/18 at 17:30 Glucagon (Glucagen) 1 mg Q15M PRN IM DECREASED GLUCOSE; Start 12/15/18 at 17:30 Glucose (Glutose) 15 gm Q15M PRN BUCCAL DECREASED GLUCOSE; Start 12/15/18 at 17:30 Aspirin (Aspirin) 81 mg DAILY PO Last administered on 12/17/18at 08:47; Admin Dose 81 MG; Start 12/16/18 at 09:00 Nitroglycerin (Nitroglycerin (Sl Tab) 0.4 Mg) 1 tab Q5M PRN SL ANGINA; Start 12/15/18 at 17:30 Morphine Sulfate (morphine) 2 mg Q4H PRN IV SEVERE PAIN LEVEL 7-10 Last administered on 12/17/18at 07:05; Admin Dose 2 MG; Start 12/15/18 at 17:30 Albuterol/ Ipratropium (Duoneb) 3 ml Q2H RESP THERAPY PRN HHN shortness of dru ath; Start 12/15/18 at 17:30 Levalbuterol (Xopenex Neb) 0.63 mg Q6H RESP THERAPY HHN Last administered on 12/18/18at 09:14; Admin Dose 0.63 MG; Start 12/16/18 at 02:00 Ipratropium [place] (Atrovent 0.02% (Neb)) 0.5 mg Q6H RESP THERAPY HHN Last administered on 12/18/18 08:41; Admin Dose 0.5 MG; Start 12/16/18 at 02:00 Levalbuterol (Xopenex Neb) 1.25 mg Q4H RESP THERAPY PRN HHN sob Last administe red on 12/18/18 08:41; Admin Dose 1.25 MG; Start 12/16/18 at 02:00 Acetaminophen/ Butalbital/ Caffeine (Fioricet) 1 tab Q6H PRN PO PAIN Last administered on 12/16/18 11:08; Admin Dose 1 TAB; Start 12/16/18 at 08:30 Multivitamins Therapeutic (Theragran) 1 tab DAILY PO Last administered on 12/18/18 11:41; Admin Dose 1 TAB; Start 12/17/18 at 09:00 Metoprolol Tartrate (Lopressor) 50 mg BID PO Last administered on 12/18/18 11:42; Admin Dose 50 MG; Start 12/16/18 at 21:00 Isosorbide Mononitrate (Imdur) 30 mg DAILY PO Last administered on 12/18/18 11:42; Admin Dose 30 MG; Start 12/16/18 at 12:30 Insulin Aspart (Novolog Insulin Pen) 7 unit WITH MEALS SC Last administered on 12/18/18 09:07; Admin Dose 7 UNIT; Start 12/17/18 at 17:55 Lorazepam (Ativan) 1 mg Q8H PRN IV Anxiety Last administered on 12/17/18 18:49; Admin Dose 1 MG; Start 12/17/18 at 12:30 Hydralazine HCl (Apresoline) 10 mg Q4H PRN IV SBP >170 Last administered on 12/17/18 15:54; Admin Dose 10 MG; Start 12/17/18 at 15:30 Furosemide (Lasix) 20 mg BID DIURETICS IV Last administered on 12/18/18 06:39; Admin Dose 20 MG; Start 12/17/18 at 18:00 Cefazolin Sodium/ Dextrose 50 ml @ 100 mls/hr PRE-OP IVPB ; Start 12/18/18 at 12:00; Stop 12/18/18 at 20:00 Meropenem/Sodium Chloride 50 ml @ 100 mls/hr Q12 IVPB Last administered on 12/18/18at 12:33; Admin Dose 100 MLS/HR; Start 12/18/18 at 10:00 Meds reviewed: Yes Allergies Coded Allergies: No Known Allergy (Unverified , 08/30/18) Allergies Reviewed: Yes Labs/Studies Labs Reviewed: Reviewed by anesthesiologist Result Diagram: 12/18/18 0718 12/18/18 0718 Laboratory Tests 12/18/18 07:18 test: N/A Studies: ECG Pre-procedure Exam Last vitals Vital Signs Date Temp Pulse Resp B/P (MAP) Pulse Ox O2 O2 Flow FiO2 Time Delivery Rate 12/18/18 83 13:31 12/18/18 98.6 18 126/58 96 Nasal 11:24 (80) Cannula 12/18/18 15.0 100 10:36 Airway: Adequate mouth opening, Adequate thyromental dist Mallampati: Mallampati III Teeth: Normal Lung: Normal Heart: Normal ASA Physical Status ASA physical status: 4 Emergency: None Planned Anesthetic General/MAC: ETT Planned Pain Management Parenteral pain med Pre-operative Attestations Prior to commencing anesthesia and surgery, the patient was re-evaluated, there was verification of: *The patient's identity *The results of appropriate recent lab work and preoperative vital signs *The above evaluation not changing prior to induction *Anesthetic plan, risk benefits, alternative and complications discussed with patient/family; questions answered; patient/family understands, accepts and wishes to proceed. DANIEL GIORDANO MD December 18, 2018 14:58
[2018-12-18] MEDS ORDERED: MIDAZOLAM 5 ML ONE ×2 (15:03→20:15)
--- NOTE | 2018-12-18 15:09 | HPN ---
Date/Time of Note Date/Time of Note DATE: 12/18/18 TIME: 15:09 Interval H&P Admission Note Pt. seen H&P reviewed: No system changes LIDIA GOINS MD December 18, 2018 15:09
[2018-12-18] MEDS ORDERED: ALBUMIN HUMAN 25% 200 ML ONE (15:10)
[2018-12-18] MEDS ORDERED: MAGNESIUM SULFATE (MG) 50% 10 ML INJ ONE (15:10)
[2018-12-18] MEDS ORDERED: NORepinephrine 4 MG INJ ONE (15:10)
[2018-12-18] MEDS ORDERED: FUROSEMIDE 20 MG INJ ONE ×3 (15:10→17:11)
[2018-12-18] MEDS ORDERED: MANNITOL 20% 500 ML ONE (15:10)
[2018-12-18] MEDS ORDERED: NA BICARBONATE 8.4% 50 ML SYG ONE (15:10)
[2018-12-18] MEDS ORDERED: POTASSIUM CHLORIDE 40 MEQ INJ ONE (15:10)
[2018-12-18] MEDS ORDERED: PHENYLephrine 10 MG INJ ONE (15:10)
[2018-12-18] MEDS ORDERED: AMINOCAPROIC ACID 5 GM INJ ONE (15:10)
[2018-12-18] MEDS ORDERED: CA CHLORIDE 10% 10 ML SYRINGE ONE (15:10)
[2018-12-18] MEDS ORDERED: LIDOCAINE 2% (SDV) 5 ML INJ ONE ×2 (15:10→20:11)
[2018-12-18] MEDS ORDERED: CEFAZOLIN 1 GM INJ ONE ×2 (16:12→18:04)
[2018-12-18] MEDS ORDERED: FUROSEMIDE 10 ML ONE (18:00)
[2018-12-18] MEDS ORDERED: PROTAMINE 250 MG INJ ONE (19:07)
[2018-12-18] MEDS ORDERED: PROVENTIL HFA 6.7GM INHALER ONE (19:29)
[2018-12-18] MEDS ORDERED: POTASSIUM CHLORIDE 40 MEQ, CALCIUM CHLORIDE 10% 1 GM in DEXTROSE 5%-0.225% NACL 1,000 ML IV SCH (20:09)
[2018-12-18] MEDS ORDERED: ETOMIDATE 20 MG INJ ONE (20:11)
[2018-12-18] MEDS ORDERED: ROCURONIUM 50 MG INJ ONE (20:11)
--- NOTE | 2018-12-18 20:19 | SIPON ---
Date/Time of Note Date/Time of Note DATE: 12/18/18 TIME: 20:18 Operative Report Preoperative Diagnosis CAD, nstemi Postoperative Diagnosis same Operation/Procedure Performed CABGx4, svg to lad, svg to om1 sequenced to om2, svg to pda Surgeon see signature line players assistant Eddi Stvoall MD Second assist: MISTI ALFARO Anesthesia: general Estimated blood loss: 250 - 300 ml's Transfusion Required none Specimen none Grafts/Implants none Complications none LIDIA GOINS MD December 18, 2018 20:19
[2018-12-18] MEDS ORDERED: HYDROmorphONE 0.5 MG/0.5 ML SYG IV PRN (20:30)
[2018-12-18] MEDS ORDERED: DEXTROSE 50% 50 ML SYRINGE IV PRN ×4 (20:30→21:00)
[2018-12-18] MEDS ORDERED: ASPIRIN (EC) 81 MG TAB PO ONE (20:30)
[2018-12-18] MEDS ORDERED: MAGNESIUM SULFATE 1 GM/D5W 100 ML IVPB PRN (20:30)
[2018-12-18] MEDS ORDERED: ONDANSETRON 4 MG INJ IV PRN ×2 (20:30→21:00)
[2018-12-18] MEDS ORDERED: DOPamine-D5W 1.6 MG/ML 250 ML IV SCH ×2 (20:30→21:00)
[2018-12-18] MEDS ORDERED: NITROGLYCERIN 50 MG/D5W (PMX) 250 ML IV SCH ×2 (20:30→21:00)
[2018-12-18] MEDS ORDERED: ALBUMIN HUMAN 5% 250 ML IV PRN (20:30)
[2018-12-18] MEDS ORDERED: ACCU-CHEK XX SCH (20:30)
--- NOTE | 2018-12-18 20:47 | PAC ---
Date/Time of Note Date/Time of Note DATE: 12/18/18 TIME: 20:46 Post-Anesthesia Notes Post-Anesthesia Note Last documented vital signs Vital Signs Date Temp Pulse Resp B/P (MAP) Pulse Ox O2 O2 Flow FiO2 Time Delivery Rate 12/18/18 83 13:31 12/18/18 98.6 18 126/58 96 Nasal 11:24 (80) Cannula 12/18/18 15.0 100 10:36 Activity: WNL Respiratory function: WNL Cardiovascular function: WNL Mental status: Baseline Pain reasonably controlled: Yes Hydration appropriate: Yes Nausea/Vomiting absent: Yes Comments BP:126/78, P;92, Spo2:100%, T:98,8 DANIEL GIORDANO MD December 18, 2018 20:47
[2018-12-18] MEDS: FAMOTIDINE 20 MG TAB PO SCH (21:00)
[2018-12-18] MEDS ORDERED: INSULIN HUMAN REGULAR 100 UNIT in SOD CHLORIDE 0.9% 99 ML IV SCH (21:00)
[2018-12-18] MEDS ORDERED: morphine (1 MG/ML) 10ML SYRINGE IV PRN ×2 (21:00)
[2018-12-18] MEDS ORDERED: MEPERIDINE 25 MG INJ IV PRN (21:00)
[2018-12-18] MEDS ORDERED: MIDAZOLAM 1 MG/ML 2 ML INJ IV PRN (21:00)
[2018-12-18] MEDS ORDERED: ALBUTEROL 0.083% (NEB) 2.5 MG/3 ML AMP HHN PRN (21:00)
[2018-12-18] MEDS ORDERED: DIPHENHYDRAMINE 50 MG INJ IV PRN (21:00)
[2018-12-18] MEDS: ENOXAPARIN 40 MG/0.4 ML SYG SC SCH (21:00)
[2018-12-18] MEDS: ATORVASTATIN 80 MG TAB PO SCH (21:00)
[2018-12-18] MEDS ORDERED: LORAZEPAM 2 MG INJ IV PRN (21:00)
[2018-12-18] MEDS ORDERED: PROPOFOL 100 ML ONE (21:01)
[2018-12-18] MEDS: CEFAZOLIN 1 GM/50 ML (PMX) 50 ML IVPB SCH (21:47)
[2018-12-18] MEDS: PROPOFOL 100 ML IV SCH (21:52)
[2018-12-18] MEDS ORDERED: FAMOTIDINE 20 MG INJ ONE (21:56)
[2018-12-18] MEDS ORDERED: MILRINONE LACTATE ONE (22:06)
[2018-12-18] MEDS ORDERED: MILRINONE LACTATE 100 ML IV SCH (22:30)
[2018-12-18] MEDS: POTASSIUM CHLORIDE 50 ML IVPB PRN ×2 (22:55→23:55)
[2018-12-18] MEDS ORDERED: POTASSIUM CHLORIDE 50 ML IVPB PRN (23:00)
[2018-12-18] MEDS: INSULIN HUMAN REGULAR 100 UNIT in SOD CHLORIDE 0.9% 99 ML IV SCH (23:04)
[2018-12-19] VITALS (68 sets, daily range): BP systolic 81–139; BP diastolic 42–74; PULSE 20–87; RESP 0–26; TEMP 97.1–100.7
--- NOTE | 2018-12-19 00:33 | OPR ---
DATE OF OPERATION: 12/18/2018 PREOPERATIVE DIAGNOSIS: Three-vessel coronary artery disease, non-STEMI. POSTOPERATIVE DIAGNOSIS: Three-vessel coronary artery disease, non-STEMI. PROCEDURE: CABG x4, SVG to LAD, SVG to OM1 sequenced to OM2, SVG to PDA, bilateral endoscopic vein h arvesting, epiaortic scanning of the ascending aorta. SURGEON: Lidia Goins MD FINANCIAL SERVICES SPECIALIST: Eddi Kelley MD SECOND ASSISTANTS: Tere Smith and Soumya Morrissey. ANESTHESIOLOGIST: Angel Lynch MD TYPE OF ANESTHESIA: General endotracheal. COMPLICATIONS: None. INDICATION: The patient is a 63-year-old gentleman who was admitted with chest pain and shortness of breath and had a small elevation in troponins. He underwent cardiac catheterization and had a 3-ves drew coronary artery disease with left main disease. He was referred for urgent CABG. Risks, benefit s, and alternatives were explained. He understood and consented. DESCRIPTION OF PROCEDURE: The patient was brought to the operating room, was placed in supine positi on. He was induced and underwent general endotracheal intubation without complications. Lines were placed. Antibiotics were given. He was prepped and draped in the usual sterile fashion. A median s ternotomy was made simultaneous to taking down the DE ANDA. While taking down the DE ANDA, there was a cau anisa injury to the proximal portion we attempted to repair, but because of the concern for future bettie nosis, we did not want to take a chance and we used a vein graft instead for the LAD. We created a p ericardial well, gave heparin. We scanned the ascending aorta. There was no atheroma in the ascendi ng aorta; there were some in the distal arch. Pursestring was placed in the ascending aorta followed by the right atrium. We cannulated the ascending aorta followed by 2-stage [facility]. We placed in the ascending aortic vent. Once all our lines were in place, we commenced cardiopulmonary bypass. We placed a crossclamp and arrested the heart using antegrade cardioplegia a nd topical ice. Once the heart was arrested, we identified OM1 and 2. We made arteriotomies and danisha stomosed OM2 using 7-0 Prolene in running fashion in end-to-side manner. Then, we did a [id number] anastomosis to OM1, cut the vein graft to length. We identified the LAD, made arteriotomy, extended with Mar scissors, anastomosed our vein graft using 7-0 Prolene in running fashion in end-to-side manner. We then identified the PDA, made arteriotomy, extended with Mar scissors, anastomosed our vein grafts using 7-0 Prolene in running fashion in end-to-side manner. We gave warm blood and then removed the crossclamp. We placed a ventricular pacing wire. We placed a partial clamp on the ascen ding aorta, made 2 aortotomies, and anastomosed our vein grafts using 5-0 Prolene in running fashion in end-to-side manner. Partial clamp was removed. Vein grafts were deaired. Distal hemostasis was achieved. We then began ventilating and weaned him off cardiopulmonary bypass. We measured the flow s in the vein grafts. The LAD had a flow of 50. The OM and OM2 had a flow of 38 mL per minute and P DA had a flow of 36 mL per minute. Cardiopulmonary bypass time was 72 minutes, crossclamp time was 5 1 minutes. Once he was off bypass, we gave protamine. We de-lined the patient. We placed the anter ior mediastinal tube, achieved hemostasis and then closed the chest using interrupted cables followed by closure of the fascia using 0 Vicryl and the skin using 4-0 Monocryl in subcuticular fashion. Dr you were applied. The patient was taken to the ICU in critical but stable condition. Dictated By: LIDIA GOINS MD AA/NTS Conf#: [id number] DID#: [id number] CC: RENU WHITE MD; LIDIA GOINS MD; EDDI KLELEY MD; JUAN M VENEGAS MD;*EndCC*
[2018-12-19] MEDS: ACCU-CHEK XX SCH ×24 (00:59→23:01)
[2018-12-19] MEDS: POTASSIUM CHLORIDE 50 ML IVPB PRN (01:31)
[2018-12-19] MEDS: LEVALBUTEROL (NEB) 0.63 MG/3 ML AMP HHN SCH ×2 (02:00→08:05)
[2018-12-19] MEDS: HYDROmorphONE 0.5 MG/0.5 ML SYG IV PRN ×5 (02:46→22:17)
[2018-12-19] MEDS: PROPOFOL 100 ML IV SCH ×3 (04:07→22:28)
[2018-12-19] MEDS: CEFAZOLIN 1 GM/50 ML (PMX) 50 ML IVPB SCH ×2 (04:57→13:38)
--- NOTE | 2018-12-19 06:20 | PN ---
Date/Time of Note Date/Time of Note DATE: 12/19/18 TIME: 06:19 Assessment/Plan Lines/Catheters IV Catheter Type (from [facility]): Arverne Quinn Hooks in Place (from [facility]): Yes Assessment/Plan Assessment/Plan intubated on 80%, HD stable. labs ok. continue weaning FIO2. Exam/Review of Systems Vital Signs Vitals Vital Signs Date Temp Pulse Resp B/P (MAP) Pulse Ox O2 O2 Flow FiO2 Time Delivery Rate 12/19/18 98.5 75 15 97/50 (66) 99 06:00 12/19/18 80 05:31 12/18/18 Nasal 11:24 Cannula 12/18/18 15.0 10:36 Intake and Output 12/18/18 12/18/18 12/19/18 1515:00 23:00 07:00 IntakeIntake Total 3399.3 ml 903.20 ml OutputOutput Total 1956 ml 368 ml BalanceBalance 1443.3 ml 535.20 ml Results Result Diagram: 12/19/18 0315 12/19/18 0315 LIDIA GOINS MD December 19, 2018 06:20
[2018-12-19] MEDS ORDERED: DEXMEDETOMIDINE HCL 200 MCG in SOD CHLORIDE 0.9% 48 ML IV SCH (06:30)
--- NOTE | 2018-12-19 08:13 | CONS ---
Assessment/Plan Assessment/Plan Hospital Course (Demo Recall) Acute diastolic CHF: EF 60%. Remains decompensated by hemodynamics and CXR Acute respiratory failure: Intubated for CABG. FiO2 80% still. Needs diuresis Acute renal failure: Cr slightly increased post-op. Likely ATN but also REYNA possible from cath CAD s/p CAB vessel SVG-LAD, SVG-OM1/OM2 (sequenced), SVG-PDA. DE ANDA not used as injured during prep. NSTEMI: Trop 1 and trended down. No active chest pain. Three vessel CAD on cath s/p CABG PAD s/p left leg balloon angioplasty and stenting 2016 DM HTN HL Alcohol abuse: no cirrhosis or bleeding. -stop IVF -lasix 60mg IV BID -wean off dopamine to keep SBP >100 -wean vent -ASA 325mg -lipitor 80mg -restart metoprolol when hemodynamics stable >40 min critical care time Consultation Date/Type/Reason Admit Date/Time Dec 15, 2018 at 16:16 Initial Consult Date 12/16/18 Type of Consult Cardiology Requesting Provider: JUAN M VENEGAS Date/Time of Note DATE: 12/19/18 TIME: 08:07 24 HR Interval Summary Free Text/Dictation s/p CABG yesterday. Still on vent at 80% FiO2. CXR shows pulm edema. CVP 14, PA diastolic mid 20s. On low dose dopamine. Exam/Review of Systems Vital Signs Vitals Vital Signs Date Temp Pulse Resp B/P (MAP) Pulse Ox O2 O2 Flow FiO2 Time Delivery Rate 12/19/18 98.8 77 20 96/46 (63) 99 07:00 12/19/18 80 05:31 12/18/18 Nasal 11:24 Cannula 12/18/18 15.0 10:36 Intake and Output 12/18/18 12/18/18 12/19/18 1515:00 23:00 07:00 IntakeIntake Total 3399.3 ml 936.90 ml OutputOutput Total 1956 ml 373 ml BalanceBalance 1443.3 ml 563.90 ml Exam Constitutional: No alert ENMT: intubated Neck: No jvd (unable to assess) Respiratory: diminished breath sounds; No clear to auscultation Cardiovascular: regular rate and rhythm, edema (1-2+); No systolic murmur Gastrointestinal: soft, non-tender, distended Musculoskeletal: No nl extremities to inspection Neurological: No nl mental status, No nl speech Labs Result Diagram: 12/19/18 0315 12/19/18 0315 Results 24hrs Laboratory Tests Test 12/18/18 08:53 12/18/18 12:02 12/18/18 12:54 12/18/18 20:09 Bedside Glucose 228 H 140 Urine Color STRAW Urine Clarity CLEAR Urine pH 6.0 Urine Specific 1.013 Hunt Urine Ketones NEGATIVE Urine Nitrite NEGATIVE Urine Bilirubin NEGATIVE Urine NEGATIVE Urobilinogen Urine Leukocyte NEGATIVE Esterase Urine 0 Microscopic RBC Urine 0 Microscopic WBC Urine NEGATIVE Hemoglobin Urine Glucose 1+ H Urine Total 2+ H Protein Blood Gas Blood Specimen arterial Source Arterial Blood 12/18/2018 9:00: Date Drawn 18 PM Arterial Blood 7.341 L pH (Temp corrected ) Arterial Blood 33.0 L pCO2 (Temp correct) Arterial Blood 109.6 H pO2 (Temp corrected ) Arterial Blood 17.4 L HCO3 Arterial Blood -7.4 L Base Excess Arterial Blood 97.0 Oxygen Saturati on Demond Test N/A Arterial Blood A-Line Gas Puncture Site Arterial 0.3 Blood Carboxyhe moglobin Arterial Blood 0.4 Methemoglobin Blood Gas A-a 570.4 H O2 Differential Oxyhemoglobin 96.3 Percent Blood Gas 37.0 Temperature Blood Gas 14.0 Respiration Rate Blood Gas 145 Actual Respiration Rat e Blood Gas VENT - AC Modality FiO2 100.0 Blood Gas Tidal 600.0 Volume Blood Gas UP Notified Whom Blood Gas 12/18/2018 9:10: Notified Time 10 PM Test 12/18/18 20:46 12/18/18 21:00 12/18/18 21:40 12/18/18 23:02 White Blood 19.3 #H Count Red Blood Count 3.31 L Hemoglobin 10.0 L Hematocrit 30.7 L Mean 92.7 Corpuscular Volume Mean 30.2 Corpuscular Hemoglobin Mean 32.6 Corpuscular Hemoglobin Conc ent Red Cell 14.1 Distribution Width Platelet Count 273 # Mean Platelet 9.6 Volume Immature 1.100 H Granulocytes % Neutrophils % 87.5 H Lymphocytes % 8.6 L Monocytes % 1.9 Eosinophils % 0.5 Basophils % 0.4 Nucleated Red 0.0 Blood Cells % Immature 0.220 H Granulocytes # Neutrophils # 16.9 H Lymphocytes # 1.7 Monocytes # 0.4 Eosinophils # 0.1 Basophils # 0.1 Nucleated Red 0.0 Blood Cells # Prothrombin 17.3 #H Time Prothrombin 1.4 Time Ratio INR 1.40 International Normalized Rati o Activated 26.7 Partial Thrombo plast Time Sodium Level 141 Potassium Level 3.8 Chloride Level 110 Carbon Dioxide 21 Level Anion Gap 10 Blood Urea 16 Nitrogen Creatinine 1.37 H Est Glomerular 52 L Filtrat Rate mL/min Glucose Level 143 # Calcium Level 8.5 Magnesium Level 3.5 H Blood Gas BLMV Specimen Source Arterial Blood 12/18/2018 9:00: Date Drawn 45 PM Arterial Blood VENOUS LINE Gas Puncture Site Demond Test N/A Mixed Venous 42.0 H Blood PO2 Mixed Venous 74.3 Blood O2 Saturation Mixed Venous 11.6 Blood Total Hemoglobi n Mixed Venous 73.8 Blood Oxyhemogl obin Mixed Venous 0.3 Bld Carboxyhemo globin Mixed Venous 0.4 Blood Methemogl obin Blood Gas 37.0 Temperature Blood Gas 14.0 Respiration Rate Blood Gas 14 Actual Respiration Rat e Blood Gas VENT - AC Modality FiO2 100.0 Blood Gas Tidal 600.0 Volume Blood Gas Low 5.0 PEEP Setting Blood Gas UP Notified Whom Blood Gas 12/18/2018 9:08: Notified Time 56 PM Bedside Glucose 167 198 Test 12/18/18 23:50 12/19/18 01:04 12/19/18 01:53 12/19/18 03:00 Bedside Glucose 195 180 191 185 Test 12/19/18 03:15 12/19/18 04:00 12/19/18 04:43 12/19/18 04:54 White Blood 16.5 H Count Red Blood Count 3.32 L Hemoglobin 10.2 L Hematocrit 30.6 L Mean 92.2 Corpuscular Volume Mean 30.7 Corpuscular Hemoglobin Mean 33.3 Corpuscular Hemoglobin Conc ent Red Cell 14.7 H Distribution Width Platelet Count 319 Mean Platelet 9.9 Volume Immature 1.300 H Granulocytes % Neutrophils % 92.2 H Lymphocytes % 3.0 L Monocytes % 3.0 Eosinophils % 0.1 Basophils % 0.4 Nucleated Red 0.0 Blood Cells % Immature 0.220 H Granulocytes # Neutrophils # 15.2 H Lymphocytes # 0.5 L Monocytes # 0.5 Eosinophils # 0.0 Basophils # 0.1 Nucleated Red 0.0 Blood Cells # Prothrombin 14.6 Time Prothrombin 1.1 Time Ratio INR 1.13 International Normalized Rati o Activated 27.9 Partial Thrombo plast Time Sodium Level 141 Potassium Level 4.6 Chloride Level 112 H Carbon Dioxide 23 Level Anion Gap 6 Blood Urea 18 Nitrogen Creatinine 1.73 H Est Glomerular 40 L Filtrat Rate mL/min Glucose Level 171 Calcium Level 9.0 Phosphorus 4.6 Level Magnesium Level 3.0 H Bedside Glucose 181 152 Lab Scanned BLOOD TRANSFUS Report ION Test 12/19/18 05:00 12/19/18 06:00 12/19/18 06:56 Blood Gas Blood arterial Specimen Source Arterial Blood 12/19/2018 6:00:4 Date Drawn 7 AM Arterial Blood 7.359 pH (Temp corrected ) Arterial Blood 36.6 pCO2 (Temp correct) Arterial Blood 84.5 pO2 (Temp corrected ) Arterial Blood 20.2 L HCO3 Arterial Blood -4.7 L Base Excess Arterial Blood 95.4 Oxygen Saturati on Demond Test N/A Arterial Blood A-Line Gas Puncture Site Arterial 0.2 Blood Carboxyhe moglobin Arterial Blood 0.3 Methemoglobin Blood Gas A-a 447.5 H O2 Differential Oxyhemoglobin 94.9 Percent Blood Gas 37.0 Temperature Blood Gas 14.0 Respiration Rate Blood Gas 20 Actual Respiration Rat e Blood Gas VENT - AC Modality FiO2 80.0 Blood Gas Tidal 600.0 Volume Blood Gas Low 8.0 PEEP Setting Blood Gas MO Notified Whom Blood Gas 12/19/2018 6:22:3 Notified Time 5 AM Bedside Glucose 136 129 Medications Medications Current Medications Levalbuterol (Xopenex Neb) 0.63 mg Q6H RESP THERAPY HHN Last administered on 12/18/18at 09:14; Admin Dose 0.63 MG; Start 12/16/18 at 02:00 Levalbuterol (Xopenex Neb) 1.25 mg Q4H RESP THERAPY PRN HHN sob Last administered on 12/18/18 08:41; Admin Dose 1.25 MG; Start 12/16/18 at 02:00 Insulin Human Regular 100 unit/ Sodium Chloride 100 ml @ 0 mls/hr PER PROTOCOL IV Last administered on 12/18/18 23:04; Admin Dose 5 MLS/HR; Start 12/18/18 at 20:30 Miscellaneous Information (* Miscellaneous Pharmacy Order) Treatment of Hypoglyc emia: 1.BG 51... Per protocol XX ; Start 12/18/18 at 20:30 Dextrose (D50w Syringe) 25 ml Q15M PRN IV .DECREASED GLUCOSE; Start 12/18/18 at 20:30 Dextrose (D50w Syringe) 50 ml Q15M PRN IV .DECREASED GLUCOSE; Start 12/18/18 at 20:30 Potassium Chloride 40 meq/ Calcium Chloride 1 gm/Dextrose/ Sodium Chloride 1,030 ml @ 60 mls/hr [id number] IV Last administered on 12/18/18at 22:13; Admin Dose 60 MLS/HR; Start 12/18/18 at 20:09 Albumin Human 250 ml @ 500 mls/hr PRN PRN IV CVP< 8, OR SBP<90; Start 12/18/18 at 20:30 Cefazolin Sodium 50 ml @ 100 mls/hr Q8H IVPB Last administered on 12/19/18at 04:57; Admin Dose 100 MLS/HR; Start 12/18/18 at 20:30; Stop 12/19/18 at 12:59 Hydromorphone HCl (Dilaudid) 0.2 mg Q15M PRN IV PAIN LEVEL 1-5; Start 12/18/18 at 20:30 Hydromorphone HCl (Dilaudid) 0.4 mg Q15M PRN IV PAIN LEVEL 6-10 Last administered on 12/19/18at 02:46; Admin Dose 0.4 MG; Start 12/18/18 at 20:30 Oxycodone/ Acetaminophen (Percocet (5/ 325)) 1 tab Q3H PRN PO PAIN LEVEL 1-5; Start 12/18/18 at 20:30 Oxycodone/ Acetaminophen (Percocet (5/ 325)) 2 tab Q3H PRN PO PAIN LEVEL 6-10; Start 12/18/18 at 20:30 Ondansetron HCl (Zofran Inj) 4 mg Q6H PRN IV NAUSEA AND/OR VOMITING; Start 12/18/18 at 20:30 Famotidine (Pepcid Iv) 20 mg BID@08,20 IV ; Start 12/19/18 at 08:00 Famotidine (Pepcid) 20 mg BID PO ; Start 12/18/18 at 21:00 Acetaminophen (Tylenol Tab) 650 mg Q3H PRN PO ELEVATED TEMPERATURE; Start 12/18/18 at 20:30 Potassium Chloride 50 ml @ 50 mls/hr SEE DIRECTION PRN IVPB K+ LEVEL Last administered on 12/19/18at 01:31; Admin Dose 50 MLS/HR; Start 12/18/18 at 20:30 Magnesium Sulfate/ Dextrose 100 ml @ 100 mls/hr PRN PRN IVPB PENDING LAB VALUE; Start 12/18/18 at 20:30 Nitroglycerin/ Dextrose 250 ml @ 1.5 mls/hr PER PROTOCOL IV Last administered on 12/18/18at 22:15; Admin Dose 6 MLS/HR; Start 12/18/18 at 20:30 Dopamine HCl/ Dextrose 250 ml @ 6.615 mls/ hr PER PROTOCOL IV Last administered on 12/18/18at 22:13; Admin Dose 3.3 MLS/HR; Start 12/18/18 at 20:30 Enoxaparin Sodium (Lovenox) 40 mg BID SC ; Start 12/18/18 at 21:00 Atorvastatin Calcium (Lipitor) 80 mg HS PO ; Start 12/18/18 at 21:00 Diagnostic Test (Pha) (Accu-Chek) 1 ea Q1H XX Last administered on 12/19/18at 06:59; Admin Dose 1 EA; Start 12/18/18 at 21:00 Miscellaneous Information (* Miscellaneous Pharmacy Order) Treatment of Hypoglycemia: 1.BG 51... Per protocol XX ; Start 12/18/18 at 21:00 Dextrose (D50w Syringe) 25 ml Q15M PRN IV .DECREASED GLUCOSE; Start 12/18/18 at 21:00 Dextrose (D50w Syringe) 50 ml Q15M PRN IV .DECREASED GLUCOSE; Start 12/18/18 at 21:00 Propofol 100 ml @ 2.646 mls/ hr Q12H IV Last administered on 12/19/18at 04:07; Admin Dose 20 MLS/HR; Start 12/18/18 at 21:30 Milrinone Lactate 100 ml @ 9.923 mls/ hr TITRATE IV ; Start 12/18/18 at 22:30 Potassium Chloride 50 ml @ 50 mls/hr K PROTOCOL PRN IVPB PENDING LAB VALUE; Start 12/18/18 at 23:00 Dexmedetomidine HCl 200 mcg/ Sodium Chloride 50 ml @ 4.41 mls/hr TITRATE IV ; Start 12/19/18 at 06:30 JUAN M VENEGAS December 19, 2018 08:13
--- NOTE | 2018-12-19 08:46 | PN ---
Date/Time of Note Date/Time of Note DATE: 12/19/18 TIME: 08:45 Assessment/Plan VTE Prophylaxis Risk score (from [facility])>0 risk: 4 SCD applied (from [facility]): No SCD contraindicated: other Pharmacological prophylaxis: NA/contraindicated Pharm contraindication: surgical contra Lines/Catheters IV Catheter Type (from [facility]): Conway Quinn Urinary Cath still in place: Yes Reason Cath still needed: other (indicate) Assessment/Plan Hospital Course SUBJECTIVE: The patient remains intubated. Lines 1. ETT 2. Conway-Quinn catheter. 3. Left radial A-line. 4. Chest tube. 5. OGT. 6. Hooks catheter. OBJECTIVE: Physical Exam General: Obese, 63 year-old male lying in bed in no apparent distress. HEENT: Normocephalic, atraumatic. Eyes: Anicteric sclerae, conjunctivae clear. ENT: Nasal septum midline, oral mucosa is dry. Neck: Short and obese. Respiratory: Bilaterally diminished breath sounds. ETT to mechanical ventilator. Wheezing. Cardiovascular: S1, S2 heard. Regular rate and rhythm. Sternotomy dressing. Abdomen: Distended. Bowel sounds positive in all 4 quadrants. Genitourinary: Deferred. Extremities: No cyanosis, no clubbing. Bilateral lower extremity 2-3+ pitting edema. Neurologic: The patient is sedated. Labs & Vitals per chart ASSESSMENT & PLAN This is a 63-year-old male with comorbidities including diabetes mellitus, left foot osteomyelitis, hypertension, obesity, chronic kidney disease, peripheral artery disease, and alcohol abuse. The patient came to the emergency room with chief complaint of abdominal pain, distension and occasional radiation of pain to the chest. He was noticed to have NSTEMI. 1. NSTEMI. -S/P LHC on 12/17/2018 that showed significant 3-vessel CAD. -S/P CABG x4, SVG to LAD, SVG to OM1 sequenced to OM2, SVG to PDA on 12/18/2018. -Remains intubated. -Weaning off ventilator as per pulmonary. 2. Acute respiratory failure. -Hypoxic. -Continue supplemental O2. -Continue inhaled bronchodilators. -Intubated status post CABG on 12/18/2018. -Weaning off ventilator as per pulmonary. 3. Fluid overload. -Etiology could be multifactorial. -2D echocardiogram showing preserved LVEF. -Known history of significant proteinuria, suggesting nephrotic syndrome. -Diuretics as clinically indicated. 4. Diabetes mellitus type 2. -Hemoglobin A1c 10.7. -Currently on insulin drip. 5. Peripheral artery disease. -Status post left tibioperoneal trunk balloon angioplasty, left femoral popliteal artery stenting, and left femoral popliteal artery balloon angioplasty on 03/22/2017. -Continue antiplatelet therapy. 6. Hypertension. -Continue antihypertensives. 7. Pulmonary hypertension. -PA systolic pressure of 52 mm Hg. 8. E. coli ESBL in urine wound 12/18/2018. -[place] count <10,000 CFU per mL. -Started on carbapenems. -ID following. 9. Obesity. -BMI 31.5 kg/m -Weight reduction advised. 10. Normocytic, normochromic anemia. -Monitor H&H closely. 11. Alcohol abuse. -Continue multivitamins. 12. Generalized anxiety. -PRN benzodiazepines. 13. ANGEL. -Monitor BUN and creatinine closely. -Use nephrotoxic drugs with caution. 14. Fluids, electrolytes, and nutrition. -N.p.o. 15. DVT prophylaxis. -B/L SCDs 16. Plan. -Weaning off ventilator as per pulmonology. -Continue cardiac surgery recommendations. -Continue ICU monitoring. The patient was seen in collaboration with Dr. Gutierrez. Critical care time: 35 minutes. Result Diagram: 12/19/1831412/[id number]/18314 Results 24hrs Laboratory Tests Test 12/18/18 08:53 12/18/18 12:02 12/18/18 12:54 12/18/18 20:09 Bedside Glucose 228 H 140 Urine Color STRAW Urine Clarity CLEAR Urine pH 6.0 Urine Specific 1.013 [place] Urine Ketones NEGATIVE Urine Nitrite NEGATIVE Urine Bilirubin NEGATIVE Urine NEGATIVE Urobilinogen Urine Leukocyte NEGATIVE Esterase Urine 0 Microscopic RBC Urine 0 Microscopic WBC Urine NEGATIVE Hemoglobin Urine Glucose 1+ H Urine Total 2+ H Protein Blood Gas Blood Specimen arterial Source Arterial Blood 12/18/2018 9:00: Date Drawn 18 PM Arterial Blood 7.341 L pH (Temp corrected ) Arterial Blood 33.0 L pCO2 (Temp correct) Arterial Blood 109.6 H pO2 (Temp corrected ) Arterial Blood 17.4 L HCO3 Arterial Blood -7.4 L Base Excess Arterial Blood 97.0 Oxygen Saturati on Demond Test N/A Arterial Blood A-Line Gas Puncture Site Arterial 0.3 Blood Carboxyhe moglobin Arterial Blood 0.4 Methemoglobin Blood Gas A-a 570.4 H O2 Differential Oxyhemoglobin 96.3 Percent Blood Gas 37.0 Temperature Blood Gas 14.0 Respiration Rate Blood Gas 145 Actual Respiration Rat e Blood Gas VENT - AC Modality FiO2 100.0 Blood Gas Tidal 600.0 Volume Blood Gas UP Notified Whom Blood Gas 12/18/2018 9:10: Notified Time 10 PM Test 12/18/18 20:46 12/18/18 21:00 12/18/18 21:40 12/18/18 23:02 White Blood 19.3 #H Count Red Blood Count 3.31 L Hemoglobin 10.0 L Hematocrit 30.7 L Mean 92.7 Corpuscular Volume Mean 30.2 Corpuscular Hemoglobin Mean 32.6 Corpuscular Hemoglobin Conc ent Red Cell 14.1 Distribution Width Platelet Count 273 # Mean Platelet 9.6 Volume Immature 1.100 H Granulocytes % Neutrophils % 87.5 H Lymphocytes % 8.6 L Monocytes % 1.9 Eosinophils % 0.5 Basophils % 0.4 Nucleated Red 0.0 Blood Cells % Immature 0.220 H Granulocytes # Neutrophils # 16.9 H Lymphocytes # 1.7 Monocytes # 0.4 Eosinophils # 0.1 Basophils # 0.1 Nucleated Red 0.0 Blood Cells # Prothrombin 17.3 #H Time Prothrombin 1.4 Time Ratio INR 1.40 International Normalized Rati o Activated 26.7 Partial Thrombo plast Time Sodium Level 141 Potassium Level 3.8 Chloride Level 110 Carbon Dioxide 21 Level Anion Gap 10 Blood Urea 16 Nitrogen Creatinine 1.37 H Est Glomerular 52 L Filtrat Rate mL/min Glucose Level 143 # Calcium Level 8.5 Magnesium Level 3.5 H Blood Gas BLMV Specimen Source Arterial Blood 12/18/2018 9:00: Date Drawn 45 PM Arterial Blood VENOUS LINE Gas Puncture Site Demond Test N/A Mixed Venous 42.0 H Blood PO2 Mixed Venous 74.3 Blood O2 Saturation Mixed Venous 11.6 Blood Total Hemoglobi n Mixed Venous 73.8 Blood Oxyhemogl obin Mixed Venous 0.3 Bld Carboxyhemo globin Mixed Venous 0.4 Blood Methemogl obin Blood Gas 37.0 Temperature Blood Gas 14.0 Respiration Rate Blood Gas 14 Actual Respiration Rat e Blood Gas VENT - AC Modality FiO2 100.0 Blood Gas Tidal 600.0 Volume Blood Gas Low 5.0 PEEP Setting Blood Gas UP Notified Whom Blood Gas 12/18/2018 9:08: Notified Time 56 PM Bedside Glucose 167 198 Test 12/18/18 23:50 12/19/18 01:04 12/19/18 01:53 12/19/18 03:00 Bedside Glucose 195 180 191 185 Test 12/19/18 03:15 12/19/18 04:00 12/19/18 04:43 12/19/18 04:54 White Blood 16.5 H Count Red Blood Count 3.32 L Hemoglobin 10.2 L Hematocrit 30.6 L Mean 92.2 Corpuscular Volume Mean 30.7 Corpuscular Hemoglobin Mean 33.3 Corpuscular Hemoglobin Conc ent Red Cell 14.7 H Distribution Width Platelet Count 319 Mean Platelet 9.9 Volume Immature 1.300 H Granulocytes % Neutrophils % 92.2 H Lymphocytes % 3.0 L Monocytes % 3.0 Eosinophils % 0.1 Basophils % 0.4 Nucleated Red 0.0 Blood Cells % Immature 0.220 H Granulocytes # Neutrophils # 15.2 H Lymphocytes # 0.5 L Monocytes # 0.5 Eosinophils # 0.0 Basophils # 0.1 Nucleated Red 0.0 Blood Cells # Prothrombin 14.6 Time Prothrombin 1.1 Time Ratio INR 1.13 International Normalized Rati o Activated 27.9 Partial Thrombo plast Time Sodium Level 141 Potassium Level 4.6 Chloride Level 112 H Carbon Dioxide 23 Level Anion Gap 6 Blood Urea 18 Nitrogen Creatinine 1.73 H Est Glomerular 40 L Filtrat Rate mL/min Glucose Level 171 Calcium Level 9.0 Phosphorus 4.6 Level Magnesium Level 3.0 H Bedside Glucose 181 152 Lab Scanned BLOOD TRANSFUS Report ION Test 12/19/18 05:00 12/19/18 06:00 12/19/18 06:56 12/19/18 08:14 Blood Gas Blood arterial Specimen Source Arterial Blood 12/19/2018 6:00:4 Date Drawn 7 AM Arterial Blood 7.359 pH (Temp corrected ) Arterial Blood 36.6 pCO2 (Temp correct) Arterial Blood 84.5 pO2 (Temp corrected ) Arterial Blood 20.2 L HCO3 Arterial Blood -4.7 L Base Excess Arterial Blood 95.4 Oxygen Saturati on Demond Test N/A Arterial Blood A-Line Gas Puncture Site Arterial 0.2 Blood Carboxyhe moglobin Arterial Blood 0.3 Methemoglobin Blood Gas A-a 447.5 H O2 Differential Oxyhemoglobin 94.9 Percent Blood Gas 37.0 Temperature Blood Gas 14.0 Respiration Rate Blood Gas 20 Actual Respiration Rat e Blood Gas VENT - AC Modality FiO2 80.0 Blood Gas Tidal 600.0 Volume Blood Gas Low 8.0 PEEP Setting Blood Gas MA Notified Whom Blood Gas 12/19/2018 6:22:3 Notified Time 5 AM Bedside Glucose 136 129 168 Exam/Review of Systems Exam Vitals Vital Signs Date Temp Pulse Resp B/P (MAP) Pulse Ox O2 O2 Flow FiO2 Time Delivery Rate 12/19/18 98.8 77 20 96/46 (63) 99 07:00 12/19/18 80 05:31 12/18/18 Nasal 11:24 Cannula 12/18/18 15.0 10:36 Intake and Output 12/18/18 12/18/18 12/19/18 1515:00 23:00 07:00 IntakeIntake Total 3399.3 ml 936.90 ml OutputOutput Total 1956 ml 373 ml BalanceBalance 1443.3 ml 563.90 ml Results Results 24hrs Laboratory Tests Test 12/18/18 08:53 12/18/18 12:02 12/18/18 12:54 12/18/18 20:09 Bedside Glucose 228 H 140 Urine Color STRAW Urine Clarity CLEAR Urine pH 6.0 Urine Specific 1.013 [place] Urine Ketones NEGATIVE Urine Nitrite NEGATIVE Urine Bilirubin NEGATIVE Urine NEGATIVE Urobilinogen Urine Leukocyte NEGATIVE Esterase Urine 0 Microscopic RBC Urine 0 Microscopic WBC Urine NEGATIVE Hemoglobin Urine Glucose 1+ H Urine Total 2+ H Protein Blood Gas Blood Specimen arterial Source Arterial Blood 12/18/2018 9:00: Date Drawn 18 PM Arterial Blood 7.341 L pH (Temp corrected ) Arterial Blood 33.0 L pCO2 (Temp correct) Arterial Blood 109.6 H pO2 (Temp corrected ) Arterial Blood 17.4 L HCO3 Arterial Blood -7.4 L Base Excess Arterial Blood 97.0 Oxygen Saturati on Demond Test N/A Arterial Blood A-Line Gas Puncture Site Arterial 0.3 Blood Carboxyhe moglobin Arterial Blood 0.4 Methemoglobin Blood Gas A-a 570.4 H O2 Differential Oxyhemoglobin 96.3 Percent Blood Gas 37.0 Temperature Blood Gas 14.0 Respiration Rate Blood Gas 145 Actual Respiration Rat e Blood Gas VENT - AC Modality FiO2 100.0 Blood Gas Tidal 600.0 Volume Blood Gas UP Notified Whom Blood Gas 12/18/2018 9:10: Notified Time 10 PM Test 12/18/18 20:46 12/18/18 21:00 12/18/18 21:40 12/18/18 23:02 White Blood 19.3 #H Count Red Blood Count 3.31 L Hemoglobin 10.0 L Hematocrit 30.7 L Mean 92.7 Corpuscular Volume Mean 30.2 Corpuscular Hemoglobin Mean 32.6 Corpuscular Hemoglobin Conc ent Red Cell 14.1 Distribution Width Platelet Count 273 # Mean Platelet 9.6 Volume Immature 1.100 H Granulocytes % Neutrophils % 87.5 H Lymphocytes % 8.6 L Monocytes % 1.9 Eosinophils % 0.5 Basophils % 0.4 Nucleated Red 0.0 Blood Cells % Immature 0.220 H Granulocytes # Neutrophils # 16.9 H Lymphocytes # 1.7 Monocytes # 0.4 Eosinophils # 0.1 Basophils # 0.1 Nucleated Red 0.0 Blood Cells # Prothrombin 17.3 #H Time Prothrombin 1.4 Time Ratio INR 1.40 International Normalized Rati o Activated 26.7 Partial Thrombo plast Time Sodium Level 141 Potassium Level 3.8 Chloride Level 110 Carbon Dioxide 21 Level Anion Gap 10 Blood Urea 16 Nitrogen Creatinine 1.37 H Est Glomerular 52 L Filtrat Rate mL/min Glucose Level 143 # Calcium Level 8.5 Magnesium Level 3.5 H Blood Gas BLMV Specimen Source Arterial Blood 12/18/2018 9:00: Date Drawn 45 PM Arterial Blood VENOUS LINE Gas Puncture Site Demond Test N/A Mixed Venous 42.0 H Blood PO2 Mixed Venous 74.3 Blood O2 Saturation Mixed Venous 11.6 Blood Total Hemoglobi n Mixed Venous 73.8 Blood Oxyhemogl obin Mixed Venous 0.3 Bld Carboxyhemo globin Mixed Venous 0.4 Blood Methemogl obin Blood Gas 37.0 Temperature Blood Gas 14.0 Respiration Rate Blood Gas 14 Actual Respiration Rat e Blood Gas VENT - AC Modality FiO2 100.0 Blood Gas Tidal 600.0 Volume Blood Gas Low 5.0 PEEP Setting Blood Gas UP Notified Whom Blood Gas 12/18/2018 9:08: Notified Time 56 PM Bedside Glucose 167 198 Test 12/18/18 23:50 12/19/18 01:04 12/19/18 01:53 12/19/18 03:00 Bedside Glucose 195 180 191 185 Test 12/19/18 03:15 12/19/18 04:00 12/19/18 04:43 12/19/18 04:54 White Blood 16.5 H Count Red Blood Count 3.32 L Hemoglobin 10.2 L Hematocrit 30.6 L Mean 92.2 Corpuscular Volume Mean 30.7 Corpuscular Hemoglobin Mean 33.3 Corpuscular Hemoglobin Conc ent Red Cell 14.7 H Distribution Width Platelet Count 319 Mean Platelet 9.9 Volume Immature 1.300 H Granulocytes % Neutrophils % 92.2 H Lymphocytes % 3.0 L Monocytes % 3.0 Eosinophils % 0.1 Basophils % 0.4 Nucleated Red 0.0 Blood Cells % Immature 0.220 H Granulocytes # Neutrophils # 15.2 H Lymphocytes # 0.5 L Monocytes # 0.5 Eosinophils # 0.0 Basophils # 0.1 Nucleated Red 0.0 Blood Cells # Prothrombin 14.6 Time Prothrombin 1.1 Time Ratio INR 1.13 International Normalized Rati o Activated 27.9 Partial Thrombo plast Time Sodium Level 141 Potassium Level 4.6 Chloride Level 112 H Carbon Dioxide 23 Level Anion Gap 6 Blood Urea 18 Nitrogen Creatinine 1.73 H Est Glomerular 40 L Filtrat Rate mL/min Glucose Level 171 Calcium Level 9.0 Phosphorus 4.6 Level Magnesium Level 3.0 H Bedside Glucose 181 152 Lab Scanned BLOOD TRANSFUS Report ION Test 12/19/18 05:00 12/19/18 06:00 12/19/18 06:56 12/19/18 08:14 Blood Gas Blood arterial Specimen Source Arterial Blood 12/19/2018 6:00:4 Date Drawn 7 AM Arterial Blood 7.359 pH (Temp corrected ) Arterial Blood 36.6 pCO2 (Temp correct) Arterial Blood 84.5 pO2 (Temp corrected ) Arterial Blood 20.2 L HCO3 Arterial Blood -4.7 L Base Excess Arterial Blood 95.4 Oxygen Saturati on Demond Test N/A Arterial Blood A-Line Gas Puncture Site Arterial 0.2 Blood Carboxyhe moglobin Arterial Blood 0.3 Methemoglobin Blood Gas A-a 447.5 H O2 Differential Oxyhemoglobin 94.9 Percent Blood Gas 37.0 Temperature Blood Gas 14.0 Respiration Rate Blood Gas 20 Actual Respiration Rat e Blood Gas VENT - AC Modality FiO2 80.0 Blood Gas Tidal 600.0 Volume Blood Gas Low 8.0 PEEP Setting Blood Gas [place] Notified Whom Blood Gas 12/19/2018 6:22:3 Notified Time 5 AM Bedside Glucose 136 129 168 Medications Medication Current Medications Levalbuterol (Xopenex Neb) 0.63 mg Q6H RESP THERAPY HHN Last administered on 12/18/18at 09:14; Admin Dose 0.63 MG; Start 12/16/18 at 02:00 Levalbuterol (Xopenex Neb) 1.25 mg Q4H RESP THERAPY PRN HHN sob Last admin istered on 12/18/18at 08:41; Admin Dose 1.25 MG; Start 12/16/18 at 02:00 Insulin Human Regular 100 unit/ Sodium Chloride 100 ml @ 0 mls/hr PER PROTOCOL IV Last administered on 12/18/18at 23:04; Admin Dose 5 MLS/HR; Start 12/18/18 at 20:30 Miscellaneous Information (* Miscellaneous Pharmacy Order) Treatment of Hypoglycemia: 1.BG 51... Per protocol XX ; Start 12/18/18 at 20:30 Dextrose (D50w Syringe) 25 ml Q15M PRN IV .DECREASED GLUCOSE; Start 12/18/18 at 20:30 Dextrose (D50w Syringe) 50 ml Q15M PRN IV .DECREASED GLUCOSE; Start 12/18/18 at 20:30 Albumin Human 250 ml @ 500 mls/hr PRN PRN IV CVP< 8, OR SBP<90; Start 12/18/18 at 20:30 Cefazolin Sodium 50 ml @ 100 mls/hr Q8H IVPB Last administered on 12/19/18at 04:57; Admin Dose 100 MLS/HR; Start 12/18/18 at 20:30; Stop 12/19/18 at 12:59 Hydromorphone HCl (Dilaudid) 0.2 mg Q15M PRN IV PAIN LEVEL 1-5; Start 12/18/18 at 20:30 Hydromorphone HCl (Dilaudid) 0.4 mg Q15M PRN IV PAIN LEVEL 6-10 Last administered on 12/19/18at 02:46; Admin Dose 0.4 MG; Start 12/18/18 at 20:30 Oxycodone/ Acetaminophen (Percocet (5/ 325)) 1 tab Q3H PRN PO PAIN LEVEL 1-5; Start 12/18/18 at 20:30 Oxycodone/ Acetaminophen (Percocet (5/ 325)) 2 tab Q3H PRN PO PAIN LEVEL 6-10; Start 12/18/18 at 20:30 Ondansetron HCl (Zofran Inj) 4 mg Q6H PRN IV NAUSEA AND/OR VOMITING; Start 12/18/18 at 20:30 Famotidine (Pepcid Iv) 20 mg BID@08,20 IV ; Start 12/19/18 at 08:00 Famotidine (Pepcid) 20 mg BID PO ; Start 12/18/18 at 21:00 Acetaminophen (Tylenol Tab) 650 mg Q3H PRN PO ELEVATED TEMPERATURE; Start 12/18/18 at 20:30 Potassium Chloride 50 ml @ 50 mls/hr SEE DIRECTION PRN IVPB K+ LEVEL Last administered on 12/19/18at 01:31; Admin Dose 50 MLS/HR; Start 12/18/18 at 20:30 Magnesium Sulfate/ Dextrose 100 ml @ 100 mls/hr PRN PRN IVPB PENDING LAB VALUE; Start 12/18/18 at 20:30 Nitroglycerin/ Dextrose 250 ml @ 1.5 mls/hr PER PROTOCOL IV Last administered on 12/18/18at 22:15; Admin Dose 6 MLS/HR; Start 12/18/18 at 20:30 Dopamine HCl/ Dextrose 250 ml @ 6.615 mls/ hr PER PROTOCOL IV Last administered on 12/18/18at 22:13; Admin Dose 3.3 MLS/HR; Start 12/18/18 at 20:30 Enoxaparin Sodium (Lovenox) 40 mg BID SC ; Start 12/18/18 at 21:00 Atorvastatin Calcium (Lipitor) 80 mg HS PO ; Start 12/18/18 at 21:00 Diagnostic Test (Pha) (Accu-Chek) 1 ea Q1H XX Last administered on 12/19/18at 08:16; Admin Dose 1 EA; Start 12/18/18 at 21:00 Miscellaneous Information (* Miscellaneous Pharmacy Order) Treatment of Hypoglycemia: 1.BG 51... Per protocol XX ; Start 12/18/18 at 21:00 Dextrose (D50w Syringe) 25 ml Q15M PRN IV .DECREASED GLUCOSE; Start 12/18/18 at 21:00 Dextrose (D50w Syringe) 50 ml Q15M PRN IV .DECREASED GLUCOSE; Start 12/18/18 at 21:00 Propofol 100 ml @ 2.646 mls/ hr Q12H IV Last administered on 12/19/18at 04:07; Admin Dose 20 MLS/HR; Start 12/18/18 at 21:30 Milrinone Lactate 100 ml @ 9.923 mls/ hr TITRATE IV ; Start 12/18/18 at 22:30 Potassium Chloride 50 ml @ 50 mls/hr K PROTOCOL PRN IVPB PENDING LAB VALUE; Start 12/18/18 at 23:00 Dexmedetomidine HCl 200 mcg/ Sodium Chloride 50 ml @ 4.41 mls/hr TITRATE IV Last administered on 12/19/18at 08:28; Admin Dose 4.41 MLS/HR; Start 12/19/18 at 06:30 Furosemide (Lasix) 60 mg BID DIURETICS IV ; Start 12/19/18 at 08:30 Aspirin (Aspirin) 325 mg DAILY PO ; Start 12/19/18 at 09:00 MALLORY AMOS NP December 19, 2018 08:46
[2018-12-19] MEDS: FUROSEMIDE 100 MG INJ IV SCH ×2 (08:49→17:03)
[2018-12-19] MEDS: FAMOTIDINE 20 MG INJ IV SCH ×2 (08:55→20:22)
[2018-12-19] MEDS: FAMOTIDINE 20 MG TAB PO SCH ×2 (09:00→20:34)
[2018-12-19] MEDS: ENOXAPARIN 40 MG/0.4 ML SYG SC SCH ×3 (09:00→20:35)
[2018-12-19] MEDS ORDERED: LORAZEPAM 2 MG INJ ONE (09:11)
--- NOTE | 2018-12-19 09:29 | CONS ---
Assessment/Plan Assessment/Plan Assessment/Plan (Daily) Chest x-ray was reviewed from yesterday which is showing left pleural effusion Ventilator setting; AC of 14, tidal volume 600, PEEP of 8, 70% FiO2. Patient is currently on Precedex drip at 0.4 units/kg/h. Insulin drip 4 units/h. Dopamine 2.4 mics per kilogram per minute. Assessment and recommendations; 1. Patient status post CABG with postop respiratory failure with persistent hypoxemia. 2. Superimposed CHF with left pleural effusion. 3. Acute renal injury. 4. History of diabetes and hypertension. 5. History of COPD. Continue current supportive care. Obtain follow-up chest x-ray. At this time because of persistent leukocytosis as well as hypoxemia and left lower lobe infiltrate/pleural effusion I would recommend broadening antimicrobial coverage. 40 minutes of critical care time was spent evaluating the patient. Consultation Date/Type/Reason Admit Date/Time Dec 15, 2018 at 16:16 Date of Consultation: December 19, 2018 Type of Consult Pulmonary/critical care Patient is a 63-year-old gentleman who underwent CABG surgery yesterday. Patient was transferred to ICU intubated. Patient remains significantly hypoxemic currently on high FiO2. By the time I saw him, patient is orally intubated and despite being on sedation is readily arousable. History was obtained from medical records. Past medical history; 1. History of hypertension 2. Diabetes 3. Possibly COPD Medications; reviewed Allergies; none Social history patient does have history of smoking Family history; not available. Occupational history; not available. Review of systems; very limited review of system could be obtained. Patient denies any shortness of breath. General exam; elderly male, Orally intubated, arousable, currently in no distress. Orally intubated. Date/Time of Note DATE: 12/19/18 TIME: 09:25 Past Medical History Medical History: coronary artery disease, diabetes, hypertension Home Meds Active Scripts Gabapentin* (Gabapentin*) 300 Mg Capsule, 300 MG PO TID, #90 CAP Prov:RADHA ROTHMAN 12/11/18 Ciprofloxacin Hcl* (Ciprofloxacin Hcl*) 250 Mg Tablet, 250 MG PO BID for 3 Days, #6 TAB Prov:RADHA ROTHMAN 12/11/18 Furosemide* (Furosemide*) 20 Mg Tablet, 20 MG PO DAILY for 3 Days, #3 TAB Prov:FOX JAVED 09/02/18 Omeprazole* (Omeprazole*) 20 Mg Capsule., 20 MG PO DAILY, #30 CAP Prov:RENU WHITE 08/22/18 Levofloxacin* (Levaquin*) 500 Mg Tablet, 500 MG PO DAILY for 5 Days, #5 TAB Prov:RENU WHITE 08/22/18 Salmeterol Xinaf/Fluticasone* (Advair*) 250-50 Diskus Inhaler, 1 INH INH BID for 30 Days Prov:SANAZ DAVIS MD 04/15/17 Aspirin* (Aspirin* EC) 81 Mg Tablet., 81 MG PO DAILY for 30 Days Prov:SANAZ DAVIS MD 04/15/17 Atorvastatin* (Atorvastatin*) 40 Mg Tablet, 40 MG PO HS for 30 Days, TAB Prov:SANAZ DAVIS MD 04/15/17 Clopidogrel Bisulfate (Clopidogrel) 75 Mg Tablet, 75 MG PO DAILY for 30 Days, TAB Prov:SANAZ DAVIS MD 04/15/17 Amlodipine Besylate* (Norvasc*) 5 Mg Tablet, 2.5 MG PO DAILY for 30 Days, TAB Prov:SANAZ DAVIS MD 04/15/17 Insulin Aspart* (Novolog Insulin Pen*) 100 Unit/Ml Soln, 15 UNIT SC WITH MEALS for 30 Days, #1 SYR Prov:HERRERA,BRANDON V. HOME CARE SPECIALIST 03/23/17 Metformin Hcl (Glucophage) 500 Mg Tablet, 1000 MG PO BID WITH MEALS for 30 Days, #60 TAB Prov:HERRERA,BRANDON V. HOME CARE SPECIALIST 03/23/17 Linagliptin (TRADJENTA) 5 Mg Tablet, 5 MG PO DAILY for 30 Days, #30 TAB Prov:HERRERA,BRANDON V. YISEL 03/23/17 Insulin Glargine* (Lantus*) 100 Unit/Ml Soln, 45 UNIT SC HS for 30 Days, #1 SYR Prov:SHARONBRANDONKELSY Patel NP 03/23/17 Reported Medications Ergocalciferol (Vitamin D2) (VITAMIN D2) 2,000 Unit Tablet, 2000 UNIT PO DAILY, TAB 03/15/17 Medications Current Medications Levalbuterol (Xopenex Neb) 0.63 mg Q6H RESP THERAPY HHN Last administered on 12/18/18at 09:14; Admin Dose 0.63 MG; Start 12/16/18 at 02:00 Levalbuterol (Xopenex Neb) 1.25 mg Q4H RESP THERAPY PRN HHN sob Last administered on 12/18/18at 08:41; Admin Dose 1.25 MG; Start 12/16/18 at 02:00 Insulin Human Regular 100 unit/ Sodium Chloride 100 ml @ 0 mls/hr PER PROTOCOL IV Last administered on 12/18/18at 23:04; Admin Dose 5 MLS/HR; Start 12/18/18 at 20:30 Miscellaneous Information (* Miscellaneous Pharmacy Order) Treatment of Hypoglycemia: 1.BG 51... Per protocol XX ; Start 12/18/18 at 20:30 Dextrose (D50w Syringe) 25 ml Q15M PRN IV .DECREASED GLUCOSE; Start 12/18/18 at 20:30 Dextrose (D50w Syringe) 50 ml Q15M PRN IV .DECREASED GLUCOSE; Start 12/18/18 at 20:30 Albumin Human 250 ml @ 500 mls/hr PRN PRN IV CVP< 8, OR SBP<90; Start 12/18/18 at 20:30 Cefazolin Sodium 50 ml @ 100 mls/hr Q8H IVPB Last administered on 12/19/18at 04:57; Admin Dose 100 MLS/HR; Start 12/18/18 at 20:30; Stop 12/19/18 at 12:59 Hydromorphone HCl (Dilaudid) 0.2 mg Q15M PRN IV PAIN LEVEL 1-5; Start 12/18/18 at 20:30 Hydromorphone HCl (Dilaudid) 0.4 mg Q15M PRN IV PAIN LEVEL 6-10 Last administered on 12/19/18at 08:53; Admin Dose 0.4 MG; Start 12/18/18 at 20:30 Oxycodone/ Acetaminophen (Percocet (5/ 325)) 1 tab Q3H PRN PO PAIN LEVEL 1-5; Start 12/18/18 at 20:30 Oxycodone/ Acetaminophen (Percocet (5/ 325)) 2 tab Q3H PRN PO PAIN LEVEL 6-10; Start 12/18/18 at 20:30 Ondansetron HCl (Zofran Inj) 4 mg Q6H PRN IV NAUSEA AND/OR VOMITING; Start 12/18/18 at 20:30 Famotidine (Pepcid Iv) 20 mg BID@08,20 IV Last administered on 12/19/18at 08:55; Admin Dose 20 MG; Start 12/19/18 at 08:00 Famotidine (Pepcid) 20 mg BID PO ; Start 12/18/18 at 21:00 Acetaminophen (Tylenol Tab) 650 mg Q3H PRN PO ELEVATED TEMPERATURE; Start 12/18/18 at 20:30 Potassium Chloride 50 ml @ 50 mls/hr SEE DIRECTION PRN IVPB K+ LEVEL Last administered on 12/19/18at 01:31; Admin Dose 50 MLS/HR; Start 12/18/18 at 20:30 Magnesium Sulfate/ Dextrose 100 ml @ 100 mls/hr PRN PRN IVPB PENDING LAB VALUE; Start 12/18/18 at 20:30 Nitroglycerin/ Dextrose 250 ml @ 1.5 mls/hr PER PROTOCOL IV Last administered on 12/18/18at 22:15; Admin Dose 6 MLS/HR; Start 12/18/18 at 20:30 Dopamine HCl/ Dextrose 250 ml @ 6.615 mls/ hr PER PROTOCOL IV Last administered on 12/18/18at 22:13; Admin Dose 3.3 MLS/HR; Start 12/18/18 at 20:30 Enoxaparin Sodium (Lovenox) 40 mg BID SC ; Start 12/18/18 at 21:00 Atorvastatin Calcium (Lipitor) 80 mg HS PO ; Start 12/18/18 at 21:00 Diagnostic Test (Pha) (Accu-Chek) 1 ea Q1H XX Last administered on 12/19/18at 09:22; Admin Dose 1 EA; Start 12/18/18 at 21:00 Miscellaneous Information (* Miscellaneous Pharmacy Order) Treatment of Hypoglycemia: 1.BG 51... Per protocol XX ; Start 12/18/18 at 21:00 Dextrose (D50w Syringe) 25 ml Q15M PRN IV .DECREASED GLUCOSE; Start 12/18/18 at 21:00 Dextrose (D50w Syringe) 50 ml Q15M PRN IV .DECREASED GLUCOSE; Start 12/18/18 at 21:00 Propofol 100 ml @ 2.646 mls/ hr Q12H IV Last administered on 12/19/18at 04:07; Admin Dose 20 MLS/HR; Start 12/18/18 at 21:30 Milrinone Lactate 100 ml @ 9.923 mls/ hr TITRATE IV ; Start 12/18/18 at 22:30 Potassium Chloride 50 ml @ 50 mls/hr K PROTOCOL PRN IVPB PENDING LAB VALUE; Start 12/18/18 at 23:00 Dexmedetomidine HCl 200 mcg/ Sodium Chloride 50 ml @ 4.41 mls/hr TITRATE IV Last administered on 12/19/18at 08:28; Admin Dose 4.41 MLS/HR; Start 12/19/18 at 06:30 Furosemide (Lasix) 60 mg BID DIURETICS IV Last administered on 12/19/18at 08:49; Admin Dose 60 MG; Start 12/19/18 at 08:30 Aspirin (Aspirin) 325 mg DAILY PO ; Start 12/19/18 at 09:00 Fentanyl 100 ml @ 2.5 mls/hr TITRATE IV ; Start 12/19/18 at 09:30 Lorazepam (Ativan) 1 mg ONCE ONCE IV ; Start 12/19/18 at 09:30; Stop 12/19/18 at 09:31 Allergies: Coded Allergies: No Known Allergy (Unverified , 08/30/18) Past Surgical History Past Surgical Hx: other (right LE venous ulcers) Social History Alcohol Use: occasionally Smoking Status: Never smoker Drug Use: none Exam/Review of Systems Exam Vitals Vital Signs Date Temp Pulse Resp B/P (MAP) Pulse Ox O2 O2 Flow FiO2 Time Delivery Rate 12/19/18 98.8 77 20 96/46 (63) 99 07:00 12/19/18 80 05:31 12/18/18 Nasal 11:24 Cannula 12/18/18 15.0 10:36 Intake and Output 12/18/18 12/18/18 12/19/18 1515:00 23:00 07:00 IntakeIntake Total 3399.3 ml 936.90 ml OutputOutput Total 1956 ml 373 ml BalanceBalance 1443.3 ml 563.90 ml Exam H EENT exam; supple neck, no JVD. No lymphadenopathy. Midline trachea. No thyromegaly. Orally intubated. Patient has a fair dentition. No neck masses. Pupils are small bilaterally. Chest exam; diminished but clear breath sounds. S1-S2 audible, no murmurs. Regular rhythm. Midline sternal dressing in place. Left side chest tube in place. Abdomen exam; soft, mildly protuberant. There is a small umbilicus hernia present. Bowel sounds are audible. No organomegaly. Extremity exam; no edema. FLAT FINISHER exam; patient is arousable. Results Result Diagram: 12/19/18 0315 12/19/18 0315 Results 24hrs Laboratory Tests Test 12/18/18 12:02 12/18/18 12:54 12/18/18 20:09 12/18/18 20:46 Urine Color STRAW Urine Clarity CLEAR Urine pH 6.0 Urine Specific 1.013 [place] Urine Ketones NEGATIVE Urine Nitrite NEGATIVE Urine Bilirubin NEGATIVE Urine NEGATIVE Urobilinogen Urine Leukocyte NEGATIVE Esterase Urine 0 Microscopic RBC Urine 0 Microscopic WBC Urine NEGATIVE Hemoglobin Urine Glucose 1+ H Urine Total 2+ H Protein Bedside Glucose 140 Blood Gas Blood Specimen arterial Source Arterial Blood 12/18/2018 9:00: Date Drawn 18 PM Arterial Blood 7.341 L pH (Temp corrected ) Arterial Blood 33.0 L pCO2 (Temp correct) Arterial Blood 109.6 H pO2 (Temp corrected ) Arterial Blood 17.4 L HCO3 Arterial Blood -7.4 L Base Excess Arterial Blood 97.0 Oxygen Saturati on Demond Test N/A Arterial Blood A-Line Gas Puncture Site Arterial 0.3 Blood Carboxyhe moglobin Arterial Blood 0.4 Methemoglobin Blood Gas A-a 570.4 H O2 Differential Oxyhemoglobin 96.3 Percent Blood Gas 37.0 Temperature Blood Gas 14.0 Respiration Rate Blood Gas 145 Actual Respiration Rat e Blood Gas VENT - AC Modality FiO2 100.0 Blood Gas Tidal 600.0 Volume Blood Gas UP Notified Whom Blood Gas 12/18/2018 9:10: Notified Time 10 PM White Blood 19.3 #H Count Red Blood Count 3.31 L Hemoglobin 10.0 L Hematocrit 30.7 L Mean 92.7 Corpuscular Volume Mean 30.2 Corpuscular Hemoglobin Mean 32.6 Corpuscular Hemoglobin Conc ent Red Cell 14.1 Distribution Width Platelet Count 273 # Mean Platelet 9.6 Volume Immature 1.100 H Granulocytes % Neutrophils % 87.5 H Lymphocytes % 8.6 L Monocytes % 1.9 Eosinophils % 0.5 Basophils % 0.4 Nucleated Red 0.0 Blood Cells % Immature 0.220 H Granulocytes # Neutrophils # 16.9 H Lymphocytes # 1.7 Monocytes # 0.4 Eosinophils # 0.1 Basophils # 0.1 Nucleated Red 0.0 Blood Cells # Prothrombin 17.3 #H Time Prothrombin 1.4 Time Ratio INR 1.40 International Normalized Rati o Activated 26.7 Partial Thrombo plast Time Sodium Level 141 Potassium Level 3.8 Chloride Level 110 Carbon Dioxide 21 Level Anion Gap 10 Blood Urea 16 Nitrogen Creatinine 1.37 H Est Glomerular 52 L Filtrat Rate mL/min Glucose Level 143 # Calcium Level 8.5 Magnesium Level 3.5 H Test 12/18/18 21:00 12/18/18 21:40 12/18/18 23:02 12/18/18 23:50 Blood Gas BLMV Specimen Source Arterial Blood 12/18/2018 9:00:4 Date Drawn 5 PM Arterial Blood VENOUS LINE Gas Puncture Site Demond Test N/A Mixed Venous 42.0 H Blood PO2 Mixed Venous 74.3 Blood O2 Saturation Mixed Venous 11.6 Blood Total Hemoglobi n Mixed Venous 73.8 Blood Oxyhemogl obin Mixed Venous 0.3 Bld Carboxyhemo globin Mixed Venous 0.4 Blood Methemogl obin Blood Gas 37.0 Temperature Blood Gas 14.0 Respiration Rate Blood Gas 14 Actual Respiration Rat e Blood Gas VENT - AC Modality FiO2 100.0 Blood Gas Tidal 600.0 Volume Blood Gas Low 5.0 PEEP Setting Blood Gas UP Notified Whom Blood Gas 12/18/2018 9:08:5 Notified Time 6 PM Bedside Glucose 167 198 195 Test 12/19/18 01:04 12/19/18 01:53 12/19/18 03:00 12/19/18 03:15 Bedside Glucose 180 191 185 White Blood 16.5 H Count Red Blood Count 3.32 L Hemoglobin 10.2 L Hematocrit 30.6 L Mean 92.2 Corpuscular Volume Mean 30.7 Corpuscular Hemoglobin Mean 33.3 Corpuscular Hemoglobin Conc ent Red Cell 14.7 H Distribution Width Platelet Count 319 Mean Platelet 9.9 Volume Immature 1.300 H Granulocytes % Neutrophils % 92.2 H Lymphocytes % 3.0 L Monocytes % 3.0 Eosinophils % 0.1 Basophils % 0.4 Nucleated Red 0.0 Blood Cells % Immature 0.220 H Granulocytes # Neutrophils # 15.2 H Lymphocytes # 0.5 L Monocytes # 0.5 Eosinophils # 0.0 Basophils # 0.1 Nucleated Red 0.0 Blood Cells # Prothrombin 14.6 Time Prothrombin 1.1 Time Ratio INR 1.13 International Normalized Rati o Activated 27.9 Partial Thrombo plast Time Sodium Level 141 Potassium Level 4.6 Chloride Level 112 H Carbon Dioxide 23 Level Anion Gap 6 Blood Urea 18 Nitrogen Creatinine 1.73 H Est Glomerular 40 L Filtrat Rate mL/min Glucose Level 171 Calcium Level 9.0 Phosphorus 4.6 Level Magnesium Level 3.0 H Test 12/19/18 04:00 12/19/18 04:43 12/19/18 04:54 12/19/18 05:00 Bedside Glucose 181 152 Lab Scanned BLOOD TRANSFUS Report ION Blood Gas Blood Specimen arterial Source Arterial Blood 12/19/2018 6:00: Date Drawn 47 AM Arterial Blood 7.359 pH (Temp corrected ) Arterial Blood 36.6 pCO2 (Temp correct) Arterial Blood 84.5 pO2 (Temp corrected ) Arterial Blood 20.2 L HCO3 Arterial Blood -4.7 L Base Excess Arterial Blood 95.4 Oxygen Saturati on Demond Test N/A Arterial Blood A-Line Gas Puncture Site Arterial 0.2 Blood Carboxyhe moglobin Arterial Blood 0.3 Methemoglobin Blood Gas A-a 447.5 H O2 Differential Oxyhemoglobin 94.9 Percent Blood Gas 37.0 Temperature Blood Gas 14.0 Respiration Rate Blood Gas 20 Actual Respiration Rat e Blood Gas VENT - AC Modality FiO2 80.0 Blood Gas Tidal 600.0 Volume Blood Gas Low 8.0 PEEP Setting Blood Gas [place] Notified Whom Blood Gas 12/19/2018 6:22: Notified Time 35 AM Test 12/19/18 06:00 12/19/18 06:56 12/19/18 08:14 12/19/18 09:19 Bedside Glucose 136 129 168 142 Medications Medication Current Medications Levalbuterol (Xopenex Neb) 0.63 mg Q6H RESP THERAPY HHN Last administered on 12/18/18at 09:14; Admin Dose 0.63 MG; Start 12/16/18 at 02:00 Levalbuterol (Xopenex Neb) 1.25 mg Q4H RESP THERAPY PRN HHN sob Last administered on 12/18/18 08:41; Admin Dose 1.25 MG; Start 12/16/18 at 02:00 Insulin Human Regular 100 unit/ Sodium Chloride 100 ml @ 0 mls/hr PER PROTOCOL IV Last administered on 12/18/18at 23:04; Admin Dose 5 MLS/HR; Start 12/18/18 at 20:30 Miscellaneous Information (* Miscellaneous Pharmacy Order) Treatment of Hyp oglycemia: 1.BG 51... Per protocol XX ; Start 12/18/18 at 20:30 Dextrose (D50w Syringe) 25 ml Q15M PRN IV .DECREASED GLUCOSE; Start 12/18/18 at 20:30 Dextrose (D50w Syringe) 50 ml Q15M PRN IV .DECREASED GLUCOSE; Start 12/18/18 at 20:30 Albumin Human 250 ml @ 500 mls/hr PRN PRN IV CVP< 8, OR SBP<90; Start 12/18/18 at 20:30 Cefazolin Sodium 50 ml @ 100 mls/hr Q8H IVPB Last administered on 12/19/18at 04:57; Admin Dose 100 MLS/HR; Start 12/18/18 at 20:30; Stop 12/19/18 at 12:59 Hydromorphone HCl (Dilaudid) 0.2 mg Q15M PRN IV PAIN LEVEL 1-5; Start 12/18/18 at 20:30 Hydromorphone HCl (Dilaudid) 0.4 mg Q15M PRN IV PAIN LEVEL 6-10 Last administered on 12/19/18at 08:53; Admin Dose 0.4 MG; Start 12/18/18 at 20:30 Oxycodone/ Acetaminophen (Percocet (5/ 325)) 1 tab Q3H PRN PO PAIN LEVEL 1-5; Start 12/18/18 at 20:30 Oxycodone/ Acetaminophen (Percocet (5/ 325)) 2 tab Q3H PRN PO PAIN LEVEL 6-10; Start 12/18/18 at 20:30 Ondansetron HCl (Zofran Inj) 4 mg Q6H PRN IV NAUSEA AND/OR VOMITING; Start 12/18/18 at 20:30 Famotidine (Pepcid Iv) 20 mg BID@08,20 IV Last administered on 12/19/18at 08:55; Admin Dose 20 MG; Start 12/19/18 at 08:00 Famotidine (Pepcid) 20 mg BID PO ; Start 12/18/18 at 21:00 Acetaminophen (Tylenol Tab) 650 mg Q3H PRN PO ELEVATED TEMPERATURE; Start 12/18/18 at 20:30 Potassium Chloride 50 ml @ 50 mls/hr SEE DIRECTION PRN IVPB K+ LEVEL Last administered on 12/19/18at 01:31; Admin Dose 50 MLS/HR; Start 12/18/18 at 20:30 Magnesium Sulfate/ Dextrose 100 ml @ 100 mls/hr PRN PRN IVPB PENDING LAB VALUE; Start 12/18/18 at 20:30 Nitroglycerin/ Dextrose 250 ml @ 1.5 mls/hr PER PROTOCOL IV Last administered on 12/18/18at 22:15; Admin Dose 6 MLS/HR; Start 12/18/18 at 20:30 Dopamine HCl/ Dextrose 250 ml @ 6.615 mls/ hr PER PROTOCOL IV Last administered on 12/18/18at 22:13; Admin Dose 3.3 MLS/HR; Start 12/18/18 at 20:30 Enoxaparin Sodium (Lovenox) 40 mg BID SC ; Start 12/18/18 at 21:00 Atorvastatin Calcium (Lipitor) 80 mg HS PO ; Start 12/18/18 at 21:00 Diagnostic Test (Pha) (Accu-Chek) 1 ea Q1H XX Last administered on 12/19/18at 09:22; Admin Dose 1 EA; Start 12/18/18 at 21:00 Miscellaneous Information (* Miscellaneous Pharmacy Order) Treatment of Hypoglycemia: 1.BG 51... Per protocol XX ; Start 12/18/18 at 21:00 Dextrose (D50w Syringe) 25 ml Q15M PRN IV .DECREASED GLUCOSE; Start 12/18/18 at 21:00 Dextrose (D50w Syringe) 50 ml Q15M PRN IV .DECREASED GLUCOSE; Start 12/18/18 at 21:00 Propofol 100 ml @ 2.646 mls/ hr Q12H IV Last administered on 12/19/18at 04:07; Admin Dose 20 MLS/HR; Start 12/18/18 at 21:30 Milrinone Lactate 100 ml @ 9.923 mls/ hr TITRATE IV ; Start 12/18/18 at 22:30 Potassium Chloride 50 ml @ 50 mls/hr K PROTOCOL PRN IVPB PENDING LAB VALUE; Start 12/18/18 at 23:00 Dexmedetomidine HCl 200 mcg/ Sodium Chloride 50 ml @ 4.41 mls/hr TITRATE IV Last administered on 12/19/18at 08:28; Admin Dose 4.41 MLS/HR; Start 12/19/18 at 06:30 Furosemide (Lasix) 60 mg BID DIURETICS IV Last administered on 12/19/18at 08:49; Admin Dose 60 MG; Start 12/19/18 at 08:30 Aspirin (Aspirin) 325 mg DAILY PO ; Start 12/19/18 at 09:00 Fentanyl 100 ml @ 2.5 mls/hr TITRATE IV ; Start 12/19/18 at 09:30 Lorazepam (Ativan) 1 mg ONCE ONCE IV ; Start 12/19/18 at 09:30; Stop 12/19/18 at 09:31 LAURA AVINA December 19, 2018 09:29
[2018-12-19] MEDS ORDERED: LORAZEPAM 2 MG INJ IV ONE (09:30)
--- NOTE | 2018-12-19 10:04 | CONS ---
Assessment/Plan Assessment/Plan Hospital Course (Demo Recall) 1) CAD with NSTEMI pt to get bypass surgery later today WBC is WNL and blood cx are neg pt to get merrem prior to surgery due to e.coli in urine ok for surgery from ID perspective 2)?UTI pt has a reason for polyuria due to his DM not in control he denies dysuria his u/a here is neg likely the e.coli in urine is colonization but since he is getting a johnson for his surgery today I agree with starting the meropenem prior to surgery repeat u/a and if again no significant wbc, rbc then will d/c merrem later 12/19 - repeat u/a was negative merrem has been stopped, no active UTI I will sign off on case, no active infection appreciated 3) DM 4) EtOH abuse no alcohol for one week so far and no seizures pt had remote hx of alcohol induced seizures merrem is minimally associated with seizures but he is far enough away from alcohol withdrawal seizures that it should be ok 5) HTN Consultation Date/Type/Reason Admit Date/Time Dec 15, 2018 at 16:16 Initial Consult Date 12/19/18 Type of Consult ID Requesting Provider: JUAN M VENEGAS Date/Time of Note DATE: 12/19/18 TIME: 10:02 24 HR Interval Summary Free Text/Dictation spoke to nurse pt is intubated and agitated just got ativan Exam/Review of Systems Exam Vitals Vital Signs Date Temp Pulse Resp B/P (MAP) Pulse Ox O2 O2 Flow FiO2 Time Delivery Rate 12/19/18 98.8 77 20 96/46 (63) 99 07:00 12/19/18 80 05:31 12/18/18 Nasal 11:24 Cannula 12/18/18 15.0 10:36 Intake and Output 12/18/18 12/18/18 12/19/18 1515:00 23:00 07:00 IntakeIntake Total 3399.3 ml 936.90 ml OutputOutput Total 1956 ml 373 ml BalanceBalance 1443.3 ml 563.90 ml Constitutional: alert Respiratory: clear to auscultation Cardiovascular: regular rate and rhythm Gastrointestinal: soft, non-tender Results Result Diagram: 12/19/18 0315 12/19/18 0315 Results 24hrs Laboratory Tests Test 12/18/18 12:02 12/18/18 12:54 12/18/18 20:09 12/18/18 20:46 Urine Color STRAW Urine Clarity CLEAR Urine pH 6.0 Urine Specific 1.013 [place] Urine Ketones NEGATIVE Urine Nitrite NEGATIVE Urine Bilirubin NEGATIVE Urine NEGATIVE Urobilinogen Urine Leukocyte NEGATIVE Esterase Urine 0 Microscopic RBC Urine 0 Microscopic WBC Urine NEGATIVE Hemoglobin Urine Glucose 1+ H Urine Total 2+ H Protein Bedside Glucose 140 Blood Gas Blood Specimen arterial Source Arterial Blood 12/18/2018 9:00: Date Drawn 18 PM Arterial Blood 7.341 L pH (Temp corrected ) Arterial Blood 33.0 L pCO2 (Temp correct) Arterial Blood 109.6 H pO2 (Temp corrected ) Arterial Blood 17.4 L HCO3 Arterial Blood -7.4 L Base Excess Arterial Blood 97.0 Oxygen Saturati on Demond Test N/A Arterial Blood A-Line Gas Puncture Site Arterial 0.3 Blood Carboxyhe moglobin Arterial Blood 0.4 Methemoglobin Blood Gas A-a 570.4 H O2 Differential Oxyhemoglobin 96.3 Percent Blood Gas 37.0 Temperature Blood Gas 14.0 Respiration Rate Blood Gas 145 Actual Respiration Rat e Blood Gas VENT - AC Modality FiO2 100.0 Blood Gas Tidal 600.0 Volume Blood Gas UP Notified Whom Blood Gas 12/18/2018 9:10: Notified Time 10 PM White Blood 19.3 #H Count Red Blood Count 3.31 L Hemoglobin 10.0 L Hematocrit 30.7 L Mean 92.7 Corpuscular Volume Mean 30.2 Corpuscular Hemoglobin Mean 32.6 Corpuscular Hemoglobin Conc ent Red Cell 14.1 Distribution Width Platelet Count 273 # Mean Platelet 9.6 Volume Immature 1.100 H Granulocytes % Neutrophils % 87.5 H Lymphocytes % 8.6 L Monocytes % 1.9 Eosinophils % 0.5 Basophils % 0.4 Nucleated Red 0.0 Blood Cells % Immature 0.220 H Granulocytes # Neutrophils # 16.9 H Lymphocytes # 1.7 Monocytes # 0.4 Eosinophils # 0.1 Basophils # 0.1 Nucleated Red 0.0 Blood Cells # Prothrombin 17.3 #H Time Prothrombin 1.4 Time Ratio INR 1.40 International Normalized Rati o Activated 26.7 Partial Thrombo plast Time Sodium Level 141 Potassium Level 3.8 Chloride Level 110 Carbon Dioxide 21 Level Anion Gap 10 Blood Urea 16 Nitrogen Creatinine 1.37 H Est Glomerular 52 L Filtrat Rate mL/min Glucose Level 143 # Calcium Level 8.5 Magnesium Level 3.5 H Test 12/18/18 21:00 12/18/18 21:40 12/18/18 23:02 12/18/18 23:50 Blood Gas BLMV Specimen Source Arterial Blood 12/18/2018 9:00:4 Date Drawn 5 PM Arterial Blood VENOUS LINE Gas Puncture Site Demond Test N/A Mixed Venous 42.0 H Blood PO2 Mixed Venous 74.3 Blood O2 Saturation Mixed Venous 11.6 Blood Total Hemoglobi n Mixed Venous 73.8 Blood Oxyhemogl obin Mixed Venous 0.3 Bld Carboxyhemo globin Mixed Venous 0.4 Blood Methemogl obin Blood Gas 37.0 Temperature Blood Gas 14.0 Respiration Rate Blood Gas 14 Actual Respiration Rat e Blood Gas VENT - AC Modality FiO2 100.0 Blood Gas Tidal 600.0 Volume Blood Gas Low 5.0 PEEP Setting Blood Gas UP Notified Whom Blood Gas 12/18/2018 9:08:5 Notified Time 6 PM Bedside Glucose 167 198 195 Test 12/19/18 01:04 12/19/18 01:53 12/19/18 03:00 12/19/18 03:15 Bedside Glucose 180 191 185 White Blood 16.5 H Count Red Blood Count 3.32 L Hemoglobin 10.2 L Hematocrit 30.6 L Mean 92.2 Corpuscular Volume Mean 30.7 Corpuscular Hemoglobin Mean 33.3 Corpuscular Hemoglobin Conc ent Red Cell 14.7 H Distribution Width Platelet Count 319 Mean Platelet 9.9 Volume Immature 1.300 H Granulocytes % Neutrophils % 92.2 H Lymphocytes % 3.0 L Monocytes % 3.0 Eosinophils % 0.1 Basophils % 0.4 Nucleated Red 0.0 Blood Cells % Immature 0.220 H Granulocytes # Neutrophils # 15.2 H Lymphocytes # 0.5 L Monocytes # 0.5 Eosinophils # 0.0 Basophils # 0.1 Nucleated Red 0.0 Blood Cells # Prothrombin 14.6 Time Prothrombin 1.1 Time Ratio INR 1.13 International Normalized Rati o Activated 27.9 Partial Thrombo plast Time Sodium Level 141 Potassium Level 4.6 Chloride Level 112 H Carbon Dioxide 23 Level Anion Gap 6 Blood Urea 18 Nitrogen Creatinine 1.73 H Est Glomerular 40 L Filtrat Rate mL/min Glucose Level 171 Calcium Level 9.0 Phosphorus 4.6 Level Magnesium Level 3.0 H Test 12/19/18 04:00 12/19/18 04:43 12/19/18 04:54 12/19/18 05:00 Bedside Glucose 181 152 Lab Scanned BLOOD TRANSFUS Report ION Blood Gas Blood Specimen arterial Source Arterial Blood 12/19/2018 6:00: Date Drawn 47 AM Arterial Blood 7.359 pH (Temp corrected ) Arterial Blood 36.6 pCO2 (Temp correct) Arterial Blood 84.5 pO2 (Temp corrected ) Arterial Blood 20.2 L HCO3 Arterial Blood -4.7 L Base Excess Arterial Blood 95.4 Oxygen Saturati on Demond Test N/A Arterial Blood A-Line Gas Puncture Site Arterial 0.2 Blood Carboxyhe moglobin Arterial Blood 0.3 Methemoglobin Blood Gas A-a 447.5 H O2 Differential Oxyhemoglobin 94.9 Percent Blood Gas 37.0 Temperature Blood Gas 14.0 Respiration Rate Blood Gas 20 Actual Respiration Rat e Blood Gas VENT - AC Modality FiO2 80.0 Blood Gas Tidal 600.0 Volume Blood Gas Low 8.0 PEEP Setting Blood Gas PR Notified Whom Blood Gas 12/19/2018 6:22: Notified Time 35 AM Test 12/19/18 06:00 12/19/18 06:56 12/19/18 08:14 12/19/18 09:19 Bedside Glucose 136 129 168 142 Medications Medication Current Medications Levalbuterol (Xopenex Neb) 0.63 mg Q6H RESP THERAPY HHN Last administered on 12/19/18at 08:05; Admin Dose 0.63 MG; Start 12/16/18 at 02:00 Levalbuterol (Xopenex Neb) 1.25 mg Q4H RESP THERAPY PRN HHN sob Last administered on 12/18/18at 08:41; Admin Dose 1.25 MG; Start 12/16/18 at 02:00 Insulin Human Regular 100 unit/ Sodium Chloride 100 ml @ 0 mls/hr PER PROTOCOL IV Last administered on 12/18/18at 23:04; Admin Dose 5 MLS/HR; Start 12/18/18 at 20:30 Miscellaneous Information (* Miscellaneous Pharmacy Order) Treatment of Hypoglycemia: 1.BG 51... Per protocol XX ; Start 12/18/18 at 20:30 Dextrose (D50w Syringe) 25 ml Q15M PRN IV .DECREASED GLUCOSE; Start 12/18/18 at 20:30 Dextrose (D50w Syringe) 50 ml Q15M PRN IV .DECREASED GLUCOSE; Start 12/18/18 at 20:30 Albumin Human 250 ml @ 500 mls/hr PRN PRN IV CVP< 8, OR SBP<90; Start 12/18/18 at 20:30 Cefazolin Sodium 50 ml @ 100 mls/hr Q8H IVPB Last administered on 12/19/18at 04:57; Admin Dose 100 MLS/HR; Start 12/18/18 at 20:30; Stop 12/19/18 at 12:59 Hydromorphone HCl (Dilaudid) 0.2 mg Q15M PRN IV PAIN LEVEL 1-5; Start 12/18/18 at 20:30 Hydromorphone HCl (Dilaudid) 0.4 mg Q15M PRN IV PAIN LEVEL 6-10 Last administered on 12/19/18at 08:53; Admin Dose 0.4 MG; Start 12/18/18 at 20:30 Oxycodone/ Acetaminophen (Percocet (5/ 325)) 1 tab Q3H PRN PO PAIN LEVEL 1-5; Start 12/18/18 at 20:30 Oxycodone/ Acetaminophen (Percocet (5/ 325)) 2 tab Q3H PRN PO PAIN LEVEL 6-10; Start 12/18/18 at 20:30 Ondansetron HCl (Zofran Inj) 4 mg Q6H PRN IV NAUSEA AND/OR VOMITING; Start 12/18/18 at 20:30 Famotidine (Pepcid Iv) 20 mg BID@08,20 IV Last administered on 12/19/18at 08:55; Admin Dose 20 MG; Start 12/19/18 at 08:00 Famotidine (Pepcid) 20 mg BID PO ; Start 12/18/18 at 21:00 Acetaminophen (Tylenol Tab) 650 mg Q3H PRN PO ELEVATED TEMPERATURE; Start 12/18/18 at 20:30 Potassium Chloride 50 ml @ 50 mls/hr SEE DIRECTION PRN IVPB K+ LEVEL Last administered on 12/19/18at 01:31; Admin Dose 50 MLS/HR; Start 12/18/18 at 20:30 Magnesium Sulfate/ Dextrose 100 ml @ 100 mls/hr PRN PRN IVPB PENDING LAB VALUE; Start 12/18/18 at 20:30 Nitroglycerin/ Dextrose 250 ml @ 1.5 mls/hr PER PROTOCOL IV Last administered on 12/18/18at 22:15; Admin Dose 6 MLS/HR; Start 12/18/18 at 20:30 Dopamine HCl/ Dextrose 250 ml @ 6.615 mls/ hr PER PROTOCOL IV Last administered on 12/18/18at 22:13; Admin Dose 3.3 MLS/HR; Start 12/18/18 at 20:30 Enoxaparin Sodium (Lovenox) 40 mg BID SC ; Start 12/18/18 at 21:00 Atorvastatin Calcium (Lipitor) 80 mg HS PO ; Start 12/18/18 at 21:00 Diagnostic Test (Pha) (Accu-Chek) 1 ea Q1H XX Last administered on 12/19/18at 09:22; Admin Dose 1 EA; Start 12/18/18 at 21:00 Miscellaneous Information (* Miscellaneous Pharmacy Order) Treatment of Hypoglycemia: 1.BG 51... Per protocol XX ; Start 12/18/18 at 21:00 Dextrose (D50w Syringe) 25 ml Q15M PRN IV .DECREASED GLUCOSE; Start 12/18/18 at 21:00 Dextrose (D50w Syringe) 50 ml Q15M PRN IV .DECREASED GLUCOSE; Start 12/18/18 at 21:00 Propofol 100 ml @ 2.646 mls/ hr Q12H IV Last administered on 12/19/18at 04:07; Admin Dose 20 MLS/HR; Start 12/18/18 at 21:30 Milrinone Lactate 100 ml @ 9.923 mls/ hr TITRATE IV ; Start 12/18/18 at 22:30 Potassium Chloride 50 ml @ 50 mls/hr K PROTOCOL PRN IVPB PENDING LAB VALUE; Start 12/18/18 at 23:00 Dexmedetomidine HCl 200 mcg/ Sodium Chloride 50 ml @ 4.41 mls/hr TITRATE IV Last administered on 12/19/18at 08:28; Admin Dose 4.41 MLS/HR; Start 12/19/18 at 06:30 Furosemide (Lasix) 60 mg BID DIURETICS IV Last administered on 12/19/18at 08:49; Admin Dose 60 MG; Start 12/19/18 at 08:30 Aspirin (Aspirin) 325 mg DAILY PO ; Start 12/19/18 at 09:00 Fentanyl 100 ml @ 2.5 mls/hr TITRATE IV ; Start 12/19/18 at 09:30 GIULIANA MELENDEZ MD December 19, 2018 10:04
[2018-12-19] MEDS: ASPIRIN 325 MG TAB PO SCH (10:37)
[2018-12-19] MEDS: FENTAnyl (DRIP) 1000 mcg/100mL 100 ML IV SCH ×2 (10:40→18:41)
[2018-12-19] MEDS: LEVALBUTEROL (HFA) 15 GM INHALER INH SCH ×2 (13:50→20:32)
[2018-12-19] MEDS ORDERED: PROPOFOL 100 ML ONE (14:41)
[2018-12-19] MEDS: ACETAMINOPHEN 325 MG TAB PO PRN (14:57)
[2018-12-19] MEDS ORDERED: MIDAZOLAM (DRIP) 50 mg/50 mL 50 ML IV SCH (15:00)
--- NOTE | 2018-12-19 16:01 | RADRPT ---
Vent Rate: 76 bpm RR Interval: 0 msec OR Interval: 182 msec QRS Duration: 74 msec QT Interval: 400 msec QTC Interval: 450 msec P-R-T [place]: 3 - -24 - 40 degrees Normal sinus rhythm Nonspecific T wave abnormality Abnormal ECG Electronically Signed By: Edgard Carrillo
[2018-12-19] MEDS: INSULIN HUMAN REGULAR 100 UNIT in SOD CHLORIDE 0.9% 99 ML IV SCH (19:29)
[2018-12-19] MEDS: ATORVASTATIN 80 MG TAB PO SCH (20:34)
[2018-12-20] VITALS (71 sets, daily range): BP systolic 91–157; BP diastolic 42–127; PULSE 69–102; RESP 0–29; TEMP 99.1–100.5
[2018-12-20] MEDS: ACCU-CHEK XX SCH ×13 (00:59→13:22)
[2018-12-20] MEDS: LEVALBUTEROL (HFA) 15 GM INHALER INH SCH ×2 (01:20→08:07)
[2018-12-20] MEDS: PROPOFOL 100 ML IV SCH (02:52)
[2018-12-20] MEDS: FENTAnyl (DRIP) 1000 mcg/100mL 100 ML IV SCH (03:47)
[2018-12-20] MEDS: POTASSIUM CHLORIDE 50 ML IVPB PRN ×3 (05:45→09:53)
[2018-12-20] MEDS: FUROSEMIDE 100 MG INJ IV SCH (05:53)
[2018-12-20] MEDS ORDERED: ACETAMINOPHEN 650MG/20.3ML CUP NGT PRN (06:00)
--- NOTE | 2018-12-20 07:57 | CONS ---
Assessment/Plan Assessment/Plan Assessment/Plan (Daily) Chest x-ray from today is pending. ABG was reviewed. Ventilator setting; AC of 14, tidal volume 600, PEEP of 8, 50% FiO2. Patient is currently on insulin 0.5 units/h, dopamine 1 mcg/min, propofol 80 m ics per kilogram per minute. Assessment and recommendations; 1. Patient admitted with acute [place] status post CABG. 2. Underlying COPD. 3. Acute renal injury. Patient maintaining adequate urine output . 4. Improving leukocytosis. Patient off antibiotic. Chest x-ray from yesterday showed significant improvement in right pleural effusion as well as right lower lobe atelectasis. 5. History of diabetes and hypertension. 6. Mild anemia. Decrease FiO2 to 40%. Once chest x-ray is obtained patient will be evaluated for possible weaning from ventilator depending upon findings on chest x-ray. Meanwhile continue current supportive care. 35-minute of critical care time was spent evaluating the patient. Consultation Date/Type/Reason Admit Date/Time Dec 15, 2018 at 16:16 Initial Consult Date 12/19/18 Type of Consult Pulmonary/critical care Patient is a 63-year-old gentleman who underwent CABG surgery yesterday. Yancy ent was transferred to ICU intubated. Patient remains significantly hypoxemic currently on high FiO2. By the time I saw him, patient is orally intubated and despite being on sedation is readily arousable. History was obtained from medical records. Past medical history; 1. History of hypertension 2. Diabetes 3. Possibly COPD Medications; reviewed Allergies; none Social history patient does have history of smoking Family history; not available. Occupational history; not available. Review of systems; very limited review of system could be obtained. Patient denies any shortness of breath. General exam; elderly male, Orally intubated, arousable, currently in no distress. Orally intubated. Requesting Provider: JUAN M VENEGAS Date/Time of Note DATE: 12/20/18 TIME: 07:54 24 HR Interval Summary Free Text/Dictation Patient's condition remains critical. General exam; elderly male, orally intubated, awake, currently in no distress. Exam/Review of Systems Exam Vitals Vital Signs Date Temp Pulse Resp B/P (MAP) Pulse Ox O2 O2 Flow FiO2 Time Delivery Rate 12/20/18 100.5 81 11 104/50 98 07:00 (68) 5/3/19 50 05:14 12/18/18 Nasal 11:24 Cannula 12/18/18 15.0 10:36 Intake and Output 12/19/18 12/19/18 12/20/18 1515:00 23:00 07:00 IntakeIntake Total 159.34 ml 468.970 ml 311.50 ml OutputOutput Total 826 ml 1091 ml 957 ml BalanceBalance -666.66 ml -622.030 ml -645.50 ml Exam H EENT exam; supple neck, no JVD. No lymphadenopathy. Midline trachea. No thyromegaly. Orally intubated. Orogastric tube in place. Chest exam; diminished but clear breath sounds. S1-S2 audible, no murmurs. There is a dressing applied to the sternum. Left-sided chest tube in place. Abdomen exam; soft, mildly protuberant. Nontender. Bowel sounds audible. No organomegaly. Extremity exam; trace edema . Pulses 1+. [employer] exam; patient awake but sedated. Results Result Diagram: 12/20/1842912/20/18429 Results 24hrs Laboratory Tests Test 12/19/18 08:14 12/19/18 09:19 12/19/18 10:42 12/19/18 12:25 Bedside Glucose 168 142 135 116 Test 12/19/18 13:28 12/19/18 14:22 12/19/18 15:06 12/19/18 16:10 Bedside Glucose 102 113 134 131 Test 12/19/18 17:14 12/19/18 18:15 12/19/18 19:11 12/19/18 20:03 Bedside Glucose 125 109 120 122 Test 12/19/18 20:07 12/19/18 20:08 12/19/18 20:53 12/19/18 22:04 Hemoglobin 9.0 L Hematocrit 27.1 L Potassium Level 3.9 Magnesium Level 2.8 H Bedside Glucose 115 117 Test 12/19/18 23:00 12/19/18 23:58 12/20/18 00:57 12/20/18 02:04 Bedside Glucose 127 118 112 112 Test 12/20/18 02:54 12/20/18 03:55 12/20/18 04:30 12/20/18 04:50 Bedside Glucose 115 103 White Blood 14.9 H Count Red Blood Count 2.88 L Hemoglobin 8.7 L Hematocrit 26.7 L Mean Corpuscular 92.7 Volume Mean Corpuscular 30.2 Hemoglobin Mean Corpuscular 32.6 Hemoglobin [place] nt Red Cell 15.0 H Distribution Width Platelet Count 327 Mean Platelet 10.2 Volume Immature 0.500 H Granulocytes % Neutrophils % 82.7 H Lymphocytes % 8.8 L Monocytes % 6.9 Eosinophils % 0.6 Basophils % 0.5 Nucleated Red 0.0 Blood Cells % Immature 0.080 H Granulocytes # Neutrophils # 12.3 H Lymphocytes # 1.3 Monocytes # 1.0 H Eosinophils # 0.1 Basophils # 0.1 Nucleated Red 0.0 Blood Cells # Sodium Level 145 H Potassium Level 3.5 Chloride Level 116 H Carbon Dioxide 23 Level Anion Gap 6 Blood Urea 22 H Nitrogen Creatinine 1.88 H Est Glomerular 36 L Filtrat Rate mL/min Glucose Level 102 # Calcium Level 8.4 Phosphorus Level 6.5 H Magnesium Level 2.6 H Total Bilirubin 0.1 L Direct Bilirubin 0.00 Indirect 0.1 Bilirubin Aspartate Amino 102 H Transf (AST/SGOT ) Alanine 32 Aminotransferase (ALT/SGPT) Alkaline 59 Phosphatase Total Protein 5.0 L Albumin 2.4 L Globulin 2.60 Albumin/Globulin 0.92 Ratio Blood Gas BLMV Specimen Source Arterial Blood 12/20/2018 4:50:54 Date Drawn AM Arterial Blood VENOUS LINE Gas Puncture Site Demond Test N/A Mixed Venous 33.7 Blood PO2 Mixed Venous 61.8 L Blood O2 Saturation Mixed Venous 12.7 Blood Total Hemoglobin Mixed Venous 61.5 Blood Oxyhemoglo bin Mixed Venous 0.1 Bld Carboxyhemog lobin Mixed Venous 0.4 Blood Methemoglo bin Blood Gas 37.0 Temperature Blood Gas 14.0 Respiration Rate Blood Gas Actual 14 Respiration Rate Blood Gas VENT - AC Modality FiO2 50.0 Blood Gas Tidal 600.0 Volume Blood Gas Low 5.0 PEEP Setting Blood Gas [facility] Notified Whom Blood Gas 12/20/2018 5:05:30 Notified Time AM Test 12/20/18 04:58 12/20/18 05:00 12/20/18 05:52 12/20/18 06:50 Bedside Glucose 96 108 118 Blood Gas Blood arterial Specimen Source Arterial Blood 12/20/2018 4:48:52 Date Drawn AM Arterial Blood 7.399 pH (Temp corrected) Arterial Blood 35.3 pCO2 (Temp correct) Arterial Blood 78.3 L pO2 (Temp corrected) Arterial Blood 21.3 L HCO3 Arterial Blood -2.9 Base Excess Arterial Blood 94.3 L Oxygen Saturatio n Demond Test N/A Arterial Blood A-Line Gas Puncture Site Arterial 0.3 Blood Carboxyhem oglobin Arterial Blood 0.2 Methemoglobin Blood Gas A-a O2 238.5 H Differential Oxyhemoglobin 93.8 Percent Blood Gas 37.0 Temperature Blood Gas 14.0 Respiration Rate Blood Gas Actual 14 Respiration Rate Blood Gas VENT - AC Modality FiO2 50.0 Blood Gas Tidal 600.0 Volume Blood Gas Low 5.0 PEEP Setting Blood Gas L. [facility] Notified Whom Blood Gas 12/20/2018 4:58:39 Notified Time AM Medications Medication Current Medications Levalbuterol (Xopenex Neb) 1.25 mg Q4H RESP THERAPY PRN HHN sob Last administered on 12/18/18at 08:41; Admin Dose 1.25 MG; Start 12/16/18 at 02:00 Insulin Human Regular 100 unit/ Sodium Chloride 100 ml @ 0 mls/hr PER PROTOCOL IV Last administered on 12/19/18at 19:29; Admin Dose 1.5 MLS/HR; Start 12/18/18 at 20:30 Miscellaneous Information (* Miscellaneous Pharmacy Order) Treatment of Hypoglycemia: 1.BG 51... Per protocol XX ; Start 12/18/18 at 20:30 Dextrose (D50w Syringe) 25 ml Q15M PRN IV .DECREASED GLUCOSE; Start 12/18/18 at 20:30 Dextrose (D50w Syringe) 50 ml Q15M PRN IV .DECREASED GLUCOSE; Start 12/18/18 at 20:30 Albumin Human 250 ml @ 500 mls/hr PRN PRN IV CVP< 8, OR SBP<90 Last administered on 12/19/18at 15:54; Admin Dose 500 MLS/HR; Start 12/18/18 at 20:30 Hydromorphone HCl (Dilaudid) 0.2 mg Q15M PRN IV PAIN LEVEL 1-5; Start 12/18/18 at 20:30 Hydromorphone HCl (Dilaudid) 0.4 mg Q15M PRN IV PAIN LEVEL 6-10 Last administe red on 12/19/18at 22:17; Admin Dose 0.4 MG; Start 12/18/18 at 20:30 Oxycodone/ Acetaminophen (Percocet (5/ 325)) 1 tab Q3H PRN PO PAIN LEVEL 1-5; Start 12/18/18 at 20:30 Oxycodone/ Acetaminophen (Percocet (5/ 325)) 2 tab Q3H PRN PO PAIN LEVEL 6-10; Start 12/18/18 at 20:30 Ondansetron HCl (Zofran Inj) 4 mg Q6H PRN IV NAUSEA AND/OR VOMITING; Start 12/18/18 at 20:30 Famotidine (Pepcid Iv) 20 mg BID@08,20 IV Last administered on 12/19/18at 20:22; Admin Dose 20 MG; Start 12/19/18 at 08:00 Famotidine (Pepcid) 20 mg BID PO ; Start 12/18/18 at 21:00 Acetaminophen (Tylenol Tab) 650 mg Q3H PRN PO ELEVATED TEMPERATURE Last administered on 12/19/18at 14:57; Admin Dose 650 MG; Start 12/18/18 at 20:30 Potassium Chloride 50 ml @ 50 mls/hr SEE DIRECTION PRN IVPB K+ LEVEL Last administered on 12/20/18at 05:45; Admin Dose 50 MLS/HR; Start 12/18/18 at 20:30 Magnesium Sulfate/ Dextrose 100 ml @ 100 mls/hr PRN PRN IVPB PENDING LAB VALUE; Start 12/18/18 at 20:30 Dopamine HCl/ Dextrose 250 ml @ 6.615 mls/ hr PER PROTOCOL IV Last administered on 12/18/18at 22:13; Admin Dose 3.3 MLS/HR; Start 12/18/18 at 20:30 Enoxaparin Sodium (Lovenox) 40 mg BID SC Last administered on 12/19/18at 19:11; Admin Dose 40 MG; Start 12/18/18 at 21:00 Atorvastatin Calcium (Lipitor) 80 mg HS PO ; Start 12/18/18 at 21:00 Diagnostic Test (Pha) (Accu-Chek) 1 ea Q1H XX Last administered on 12/20/18at 07:10; Admin Dose 1 EA; Start 12/18/18 at 21:00 Miscellaneous Information (* Miscellaneous Pharmacy Order) Treatment of Hypoglycemia: 1.BG 51... Per protocol XX ; Start 12/18/18 at 21:00 Dextrose (D50w Syringe) 25 ml Q15M PRN IV .DECREASED GLUCOSE; Start 12/18/18 at 21:00 Dextrose (D50w Syringe) 50 ml Q15M PRN IV .DECREASED GLUCOSE; Start 12/18/18 at 21:00 Furosemide (Lasix) 60 mg BID DIURETICS IV Last administered on 12/20/18at 05:53; Admin Dose 60 MG; Start 12/19/18 at 08:30 Aspirin (Aspirin) 325 mg DAILY PO Last administered on 12/19/18at 10:37; Admin Dose 325 MG; Start 12/19/18 at 09:00 Fentanyl 100 ml @ 2.5 mls/hr TITRATE IV Last administered on 12/20/18at 03:47; Admin Dose 10 MLS/HR; Start 12/19/18 at 09:30 Levalbuterol (Xopenex Hfa) 4 puff Q6H RESP THERAPY INH Last administered on 12/20/18at 01:20; Admin Dose 4 PUFF; Start 12/19/18 at 14:00 Midazolam HCl 50 ml @ 1 mls/hr TITRATE IV ; Start 12/19/18 at 15:00 Propofol 100 ml @ 2.646 mls/ hr Q12H IV Last administered on 12/20/18at 02:52; Admin Dose 24.14 MLS/HR; Start 12/19/18 at 15:00 Acetaminophen (Tylenol Liquid) 650 mg Q4H PRN NGT MILD PAIN(1-3)OR ELEVATED TEMP Last administered on 12/20/18at 06:00; Admin Dose 650 MG; Start 12/20/18 at 06:00 LAURA AVINA December 20, 2018 07:57
--- NOTE | 2018-12-20 08:23 | PN ---
Date/Time of Note Date/Time of Note DATE: 12/20/18 TIME: 08:20 Assessment/Plan VTE Prophylaxis Risk score (from [facility])>0 risk: 12 SCD applied (from [facility]): No SCD contraindicated: other Pharmacological prophylaxis: NA/contraindicated Pharm contraindication: surgical contra Lines/Catheters IV Catheter Type (from [facility]): [place] Quinn Urinary Cath still in place: Yes Reason Cath still needed: other (indicate) Assessment/Plan Hospital Course SUBJECTIVE: The patient remains intubated. Lines 1. ETT 2. Columbia-Quinn catheter. 3. Left radial A-line. 4. Chest tube. 5. OGT. 6. Hooks catheter. OBJECTIVE: Physical Exam General: Obese, 63 year-old male lying in bed in no apparent distress. HEENT: Normocephalic, atraumatic. Eyes: Anicteric sclerae, conjunctivae clear. ENT: Nasal septum midline, oral mucosa is dry. Neck: Short and obese. Respiratory: Bilaterally diminished breath sounds. ETT to mechanical ventilator. Wheezing. Cardiovascular: S1, S2 heard. Regular rate and rhythm. Sternotomy dressing. Abdomen: Distended. Bowel sounds positive in all 4 quadrants. Genitourinary: Deferred. Extremities: No cyanosis, no clubbing. Bilateral lower extremity 2-3+ pitting edema. Neurologic: The patient is somnolent. Wakes up to call and follows commands. Labs & Vitals per chart ASSESSMENT & PLAN This is a 63-year-old male with comorbidities including diabetes mellitus, left foot osteomyelitis, hypertension, obesity, chronic kidney disease, peripheral artery disease, and alcohol abuse. The patient came to the emergency room with chief complaint of abdominal pain, distension and occasional radiation of pain to the chest. He was noticed to have NSTEMI. 1. NSTEMI. -S/P LHC on 12/17/2018 that showed significant 3-vessel CAD. -S/P CABG x4, SVG to LAD, SVG to OM1 sequenced to OM2, SVG to PDA on 12/18/2018. -Remains intubated. -Weaning off ventilator as per pulmonary. 2. Acute respiratory failure. -Hypoxic. -Continue supplemental O2. -Continue inhaled bronchodilators. -Intubated status post CABG on 12/18/2018. -Weaning off ventilator as per pulmonary. 3. Fluid overload. -Etiology could be multifactorial. -2D echocardiogram showing preserved LVEF. -Known history of significant proteinuria, suggesting nephrotic syndrome. -Diuretics as clinically indicated. 4. Diabetes mellitus type 2. -Hemoglobin A1c 10.7. -Currently on insulin drip. 5. Peripheral artery disease. -Status post left tibioperoneal trunk balloon angioplasty, left femoral popliteal artery stenting, and left femoral popliteal artery balloon angioplasty on 03/22/2017. -Continue antiplatelet therapy. 6. Hypertension. -Continue antihypertensives. 7. Pulmonary hypertension. -PA systolic pressure of 52 mm Hg. 8. E. coli ESBL in urine wound 12/18/2018. -Magnolia count <10,000 CFU per mL. -Started on carbapenems. -Repeat urine studies negative. -Carbapenem has been discontinued. -S/P ID evaluation. 9. Obesity. -BMI 31.5 kg/m -Weight reduction advised. 10. Normocytic, normochromic anemia. -Monitor H&H closely. 11. Alcohol abuse. -Continue multivitamins. 12. Generalized anxiety. -PRN benzodiazepines. 13. ANGEL. -Monitor BUN and creatinine closely. -Use nephrotoxic drugs with caution. -Nephrology consult. 14. Fluids, electrolytes, and nutrition. -N.p.o. 15. DVT prophylaxis. -B/L SCDs 16. Plan. -Weaning off ventilator as per pulmonology. -Continue cardiac surgery recommendations. -Obtain nephrology consult. -Continue ICU monitoring. The patient was seen in collaboration with Dr. Gutierrez. Critical care time: 35 minutes. Result Diagram: 12/20/18 0430 12/20/18 0430 Results 24hrs Laboratory Tests Test 12/19/18 09:19 12/19/18 10:42 12/19/18 12:25 12/19/18 13:28 Bedside Glucose 142 135 116 102 Test 12/19/18 14:22 12/19/18 15:06 12/19/18 16:10 12/19/18 17:14 Bedside Glucose 113 134 131 125 Test 12/19/18 18:15 12/19/18 19:11 12/19/18 20:03 12/19/18 20:07 Bedside Glucose 109 120 122 Hemoglobin 9.0 L Test 12/19/18 20:08 12/19/18 20:53 12/19/18 22:04 12/19/18 23:00 Hematocrit 27.1 L Potassium Level 3.9 Magnesium Level 2.8 H Bedside Glucose 115 117 127 Test 12/19/18 23:58 12/20/18 00:57 12/20/18 02:04 12/20/18 02:54 Bedside Glucose 118 112 112 115 Test 12/20/18 03:55 12/20/18 04:30 12/20/18 04:50 12/20/18 04:58 Bedside Glucose 103 96 White Blood 14.9 H Count Red Blood Count 2.88 L Hemoglobin 8.7 L Hematocrit 26.7 L Mean Corpuscular 92.7 Volume Mean Corpuscular 30.2 Hemoglobin Mean Corpuscular 32.6 Hemoglobin Migdalia nt Red Cell 15.0 H Distribution Width Platelet Count 327 Mean Platelet 10.2 Volume Immature 0.500 H Granulocytes % Neutrophils % 82.7 H Lymphocytes % 8.8 L Monocytes % 6.9 Eosinophils % 0.6 Basophils % 0.5 Nucleated Red 0.0 Blood Cells % Immature 0.080 H Granulocytes # Neutrophils # 12.3 H Lymphocytes # 1.3 Monocytes # 1.0 H Eosinophils # 0.1 Basophils # 0.1 Nucleated Red 0.0 Blood Cells # Sodium Level 145 H Potassium Level 3.5 Chloride Level 116 H Carbon Dioxide 23 Level Anion Gap 6 Blood Urea 22 H Nitrogen Creatinine 1.88 H Est Glomerular 36 L Filtrat Rate mL/min Glucose Level 102 # Calcium Level 8.4 Phosphorus Level 6.5 H Magnesium Level 2.6 H Total Bilirubin 0.1 L Direct Bilirubin 0.00 Indirect 0.1 Bilirubin Aspartate Amino 102 H Transf (AST/SGOT ) Alanine 32 Aminotransferase (ALT/SGPT) Alkaline 59 Phosphatase Total Protein 5.0 L Albumin 2.4 L Globulin 2.60 Albumin/Globulin 0.92 Ratio Blood Gas BLMV Specimen Source Arterial Blood 12/20/2018 4:50:54 Date Drawn AM Arterial Blood VENOUS LINE Gas Puncture Site Demond Test N/A Mixed Venous 33.7 Blood PO2 Mixed Venous 61.8 L Blood O2 Saturation Mixed Venous 12.7 Blood Total Hemoglobin Mixed Venous 61.5 Blood Oxyhemoglo bin Mixed Venous 0.1 Bld Carboxyhemog lobin Mixed Venous 0.4 Blood Methemoglo bin Blood Gas 37.0 Temperature Blood Gas 14.0 Respiration Rate Blood Gas Actual 14 Respiration Rate Blood Gas VENT - AC Modality FiO2 50.0 Blood Gas Tidal 600.0 Volume Blood Gas Low 5.0 PEEP Setting Blood Gas L. Magalis [facility] Notified Whom Blood Gas 12/20/2018 5:05:30 Notified Time AM Test 12/20/18 05:00 12/20/18 05:52 12/20/18 06:50 12/20/18 07:57 Blood Gas Blood arterial Specimen Source Arterial Blood 12/20/2018 4:48:52 Date Drawn AM Arterial Blood 7.399 pH (Temp corrected) Arterial Blood 35.3 pCO2 (Temp correct) Arterial Blood 78.3 L pO2 (Temp corrected) Arterial Blood 21.3 L HCO3 Arterial Blood -2.9 Base Excess Arterial Blood 94.3 L Oxygen Saturatio n Demond Test N/A Arterial Blood A-Line Gas Puncture Site Arterial 0.3 Blood Carboxyhem oglobin Arterial Blood 0.2 Methemoglobin Blood Gas A-a O2 238.5 H Differential Oxyhemoglobin 93.8 Percent Blood Gas 37.0 Temperature Blood Gas 14.0 Respiration Rate Blood Gas Actual 14 Respiration Rate Blood Gas VENT - AC Modality FiO2 50.0 Blood Gas Tidal 600.0 Volume Blood Gas Low 5.0 PEEP Setting Blood Gas L. Magalis [facility] Notified Whom Blood Gas 12/20/2018 4:58:39 Notified Time AM Bedside Glucose 108 118 138 Exam/Review of Systems Exam Vitals Vital Signs Date Temp Pulse Resp B/P (MAP) Pulse Ox O2 O2 Flow FiO2 Time Delivery Rate 12/20/18 100.5 81 11 104/50 98 07:00 (68) 12/20/18 50 05:14 12/18/18 Nasal 11:24 Cannula 12/18/18 15.0 10:36 Intake and Output 12/19/18 12/19/18 12/20/18 1515:00 23:00 07:00 IntakeIntake Total 159.34 ml 468.970 ml 311.50 ml OutputOutput Total 826 ml 1091 ml 957 ml BalanceBalance -666.66 ml -622.030 ml -645.50 ml Results Results 24hrs Laboratory Tests Test 12/19/18 09:19 12/19/18 10:42 12/19/18 12:25 12/19/18 13:28 Bedside Glucose 142 135 116 102 Test 12/19/18 14:22 12/19/18 15:06 12/19/18 16:10 12/19/18 17:14 Bedside Glucose 113 134 131 125 Test 12/19/18 18:15 12/19/18 19:11 12/19/18 20:03 12/19/18 20:07 Bedside Glucose 109 120 122 Hemoglobin 9.0 L Test 12/19/18 20:08 12/19/18 20:53 12/19/18 22:04 12/19/18 23:00 Hematocrit 27.1 L Potassium Level 3.9 Magnesium Level 2.8 H Bedside Glucose 115 117 127 Test 12/19/18 23:58 12/20/18 00:57 12/20/18 02:04 12/20/18 02:54 Bedside Glucose 118 112 112 115 Test 12/20/18 03:55 12/20/18 04:30 12/20/18 04:50 12/20/18 04:58 Bedside Glucose 103 96 White Blood 14.9 H Count Red Blood Count 2.88 L Hemoglobin 8.7 L Hematocrit 26.7 L Mean Corpuscular 92.7 Volume Mean Corpuscular 30.2 Hemoglobin Mean Corpuscular 32.6 Hemoglobin Migdalia nt Red Cell 15.0 H Distribution Width Platelet Count 327 Mean Platelet 10.2 Volume Immature 0.500 H Granulocytes % Neutrophils % 82.7 H Lymphocytes % 8.8 L Monocytes % 6.9 Eosinophils % 0.6 Basophils % 0.5 Nucleated Red 0.0 Blood Cells % Immature 0.080 H Granulocytes # Neutrophils # 12.3 H Lymphocytes # 1.3 Monocytes # 1.0 H Eosinophils # 0.1 Basophils # 0.1 Nucleated Red 0.0 Blood Cells # Sodium Level 145 H Potassium Level 3.5 Chloride Level 116 H Carbon Dioxide 23 Level Anion Gap 6 Blood Urea 22 H Nitrogen Creatinine 1.88 H Est Glomerular 36 L Filtrat Rate mL/min Glucose Level 102 # Calcium Level 8.4 Phosphorus Level 6.5 H Magnesium Level 2.6 H Total Bilirubin 0.1 L Direct Bilirubin 0.00 Indirect 0.1 Bilirubin Aspartate Amino 102 H Transf (AST/SGOT ) Alanine 32 Aminotransferase (ALT/SGPT) Alkaline 59 Phosphatase Total Protein 5.0 L Albumin 2.4 L Globulin 2.60 Albumin/Globulin 0.92 Ratio Blood Gas BLMV Specimen Source Arterial Blood 12/20/2018 4:50:54 Date Drawn AM Arterial Blood VENOUS LINE Gas Puncture Site Demond Test N/A Mixed Venous 33.7 Blood PO2 Mixed Venous 61.8 L Blood O2 Saturation Mixed Venous 12.7 Blood Total Hemoglobin Mixed Venous 61.5 Blood Oxyhemoglo bin Mixed Venous 0.1 Bld Carboxyhemog lobin Mixed Venous 0.4 Blood Methemoglo bin Blood Gas 37.0 Temperature Blood Gas 14.0 Respiration Rate Blood Gas Actual 14 Respiration Rate Blood Gas VENT - AC Modality FiO2 50.0 Blood Gas Tidal 600.0 Volume Blood Gas Low 5.0 PEEP Setting Blood Gas L. Magalis [facility] Notified Whom Blood Gas 12/20/2018 5:05:30 Notified Time AM Test 12/20/18 05:00 12/20/18 05:52 12/20/18 06:50 12/20/18 07:57 Blood Gas Blood arterial Specimen Source Arterial Blood 12/20/2018 4:48:52 Date Drawn AM Arterial Blood 7.399 pH (Temp corrected) Arterial Blood 35.3 pCO2 (Temp correct) Arterial Blood 78.3 L pO2 (Temp corrected) Arterial Blood 21.3 L HCO3 Arterial Blood -2.9 Base Excess Arterial Blood 94.3 L Oxygen Saturatio n Demond Test N/A Arterial Blood A-Line Gas Puncture Site Arterial 0.3 Blood Carboxyhem oglobin Arterial Blood 0.2 Methemoglobin Blood Gas A-a O2 238.5 H Differential Oxyhemoglobin 93.8 Percent Blood Gas 37.0 Temperature Blood Gas 14.0 Respiration Rate Blood Gas Actual 14 Respiration Rate Blood Gas VENT - AC Modality FiO2 50.0 Blood Gas Tidal 600.0 Volume Blood Gas Low 5.0 PEEP Setting Blood Gas L. Magalis [facility] Notified Whom Blood Gas 12/20/2018 4:58:39 Notified Time AM Bedside Glucose 108 118 138 Medications Medication Current Medications Levalbuterol (Xopenex Neb) 1.25 mg Q4H RESP THERAPY PRN HHN sob Last administered on 12/18/18at 08:41; Admin Dose 1.25 MG; Start 12/16/18 at 02:00 Insulin Human Regular 100 unit/ Sodium Chloride 100 ml @ 0 mls/hr PER PROTOCOL IV Last administered on 12/19/18at 19:29; Admin Dose 1.5 MLS/HR; Start 12/18/18 at 20:30 Miscellaneous Information (* Miscellaneous Pharmacy Order) Treatment of Hypoglycemia: 1.BG 51... Per protocol XX ; Start 12/18/18 at 20:30 Dextrose (D50w Syringe) 25 ml Q15M PRN IV .DECREASED GLUCOSE; Start 12/18/18 at 20:30 Dextrose (D50w Syringe) 50 ml Q15M PRN IV .DECREASED GLUCOSE; Start 12/18/18 at 20:30 Albumin Human 250 ml @ 500 mls/hr PRN PRN IV CVP< 8, OR SBP<90 Last administered on 12/19/18at 15:54; Admin Dose 500 MLS/HR; Start 12/18/18 at 20:30 Hydromorphone HCl (Dilaudid) 0.2 mg Q15M PRN IV PAIN LEVEL 1-5; Start 12/18/18 at 20:30 Hydromorphone HCl (Dilaudid) 0.4 mg Q15M PRN IV PAIN LEVEL 6-10 Last administered on 12/19/18at 22:17; Admin Dose 0.4 MG; Start 12/18/18 at 20:30 Oxycodone/ Acetaminophen (Percocet (5/ 325)) 1 tab Q3H PRN PO PAIN LEVEL 1-5; Start 12/18/18 at 20:30 Oxycodone/ Acetaminophen (Percocet (5/ 325)) 2 tab Q3H PRN PO PAIN LEVEL 6-10; Start 12/18/18 at 20:30 Ondansetron HCl (Zofran Inj) 4 mg Q6H PRN IV NAUSEA AND/OR VOMITING; Start 12/18/18 at 20:30 Famotidine (Pepcid Iv) 20 mg BID@08,20 IV Last administered on 12/19/18at 20:22; Admin Dose 20 MG; Start 12/19/18 at 08:00 Famotidine (Pepcid) 20 mg BID PO ; Start 12/18/18 at 21:00 Acetaminophen (Tylenol Tab) 650 mg Q3H PRN PO ELEVATED TEMPERATURE Last adminis tered on 12/19/18at 14:57; Admin Dose 650 MG; Start 12/18/18 at 20:30 Potassium Chloride 50 ml @ 50 mls/hr SEE DIRECTION PRN IVPB K+ LEVEL Last administered on 12/20/18at 05:45; Admin Dose 50 MLS/HR; Start 12/18/18 at 20:30 Magnesium Sulfate/ Dextrose 100 ml @ 100 mls/hr PRN PRN IVPB PENDING LAB VALUE; Start 12/18/18 at 20:30 Dopamine HCl/ Dextrose 250 ml @ 6.615 mls/ hr PER PROTOCOL IV Last administ ered on 12/18/18at 22:13; Admin Dose 3.3 MLS/HR; Start 12/18/18 at 20:30 Enoxaparin Sodium (Lovenox) 40 mg BID SC Last administered on 12/19/18at 19:11; Admin Dose 40 MG; Start 12/18/18 at 21:00 Atorvastatin Calcium (Lipitor) 80 mg HS PO ; Start 12/18/18 at 21:00 Diagnostic Test (Pha) (Accu-Chek) 1 ea Q1H XX Last administered on 12/20/18at 07:58; Admin Dose 1 EA; Start 12/18/18 at 21:00 Miscellaneous Information (* Miscellaneous Pharmacy Order) Treatment of Hypoglycemia: 1.BG 51... Per protocol XX ; Start 12/18/18 at 21:00 Dextrose (D50w Syringe) 25 ml Q15M PRN IV .DECREASED GLUCOSE; Start 12/18/18 at 21:00 Dextrose (D50w Syringe) 50 ml Q15M PRN IV .DECREASED GLUCOSE; Start 12/18/18 at 21:00 Furosemide (Lasix) 60 mg BID DIURETICS IV Last administered on 12/20/18at 05:53; Admin Dose 60 MG; Start 12/19/18 at 08:30 Aspirin (Aspirin) 325 mg DAILY PO Last administered on 12/19/18at 10:37; Admin Dose 325 MG; Start 12/19/18 at 09:00 Fentanyl 100 ml @ 2.5 mls/hr TITRATE IV Last administered on 12/20/18at 03:47; Admin Dose 10 MLS/HR; Start 12/19/18 at 09:30 Levalbuterol (Xopenex Hfa) 4 puff Q6H RESP THERAPY INH Last administered on 12/20/18at 08:07; Admin Dose 4 PUFF; Start 12/19/18 at 14:00 Midazolam HCl 50 ml @ 1 mls/hr TITRATE IV ; Start 12/19/18 at 15:00 Propofol 100 ml @ 2.646 mls/ hr Q12H IV Last administered on 12/20/18at 02:52; Admin Dose 24.14 MLS/HR; Start 12/19/18 at 15:00 Acetaminophen (Tylenol Liquid) 650 mg Q4H PRN NGT MILD PAIN(1-3)OR ELEVATED TEMP Last administered on 12/20/18at 06:00; Admin Dose 650 MG; Start 12/20/18 at 06:00 MALLORY AMOS NP December 20, 2018 08:23
[2018-12-20] MEDS: ASPIRIN 325 MG TAB PO SCH (08:47)
[2018-12-20] MEDS: FAMOTIDINE 20 MG INJ IV SCH ×2 (08:47→20:40)
[2018-12-20] MEDS: FAMOTIDINE 20 MG TAB PO SCH (08:47)
[2018-12-20] MEDS: ENOXAPARIN 40 MG/0.4 ML SYG SC SCH ×2 (08:48→20:42)
[2018-12-20] MEDS: HYDROmorphONE 0.5 MG/0.5 ML SYG IV PRN ×2 (08:57→21:37)
--- NOTE | 2018-12-20 10:33 | PN ---
Date/Time of Note Date/Time of Note DATE: 12/20/18 TIME: 10:32 Assessment/Plan Lines/Catheters IV Catheter Type (from [facility]): [facility] in Place (from [facility]): Yes Assessment/Plan Assessment/Plan just extubated, NSR, chest tube total 400cc. creat up to 1.88. cxr shows some congestion. d/c mary and danica, leave johnson. pulmonary toilet. Exam/Review of Systems Vital Signs Vitals Vital Signs Date Temp Pulse Resp B/P (MAP) Pulse Ox O2 O2 Flow FiO2 Time Delivery Rate 12/20/18 100.5 80 10 116/56 98 09:00 (76) 12/20/18 40 08:30 12/18/18 Nasal 11:24 Cannula 12/18/18 15.0 10:36 Intake and Output 12/19/18 12/19/18 12/20/18 1515:00 23:00 07:00 IntakeIntake Total 159.34 ml 468.970 ml 311.50 ml OutputOutput Total 826 ml 1091 ml 957 ml BalanceBalance -666.66 ml -622.030 ml -645.50 ml Results Result Diagram: 12/20/180 12/20/18 0430 LIDIA GOINS MD December 20, 2018 10:33
[2018-12-20] MEDS ORDERED: LORAZEPAM 2 MG INJ IV PRN (11:30)
[2018-12-20] MEDS ORDERED: hydrALAzine 20 MG INJ IV PRN (11:30)
[2018-12-20] MEDS ORDERED: PHENYLephrine 80 MG in DEXTROSE 5% 242 ML IV SCH (11:30)
[2018-12-20] MEDS ORDERED: INSULIN GLARGINE [LANTus] (100 UNITS/ML) SYG SC ONE (13:00)
[2018-12-20] MEDS: INSULIN ASPART [NOVOLOG] 3 ML PEN SC SCH ×5 (13:24→20:44)
--- NOTE | 2018-12-20 14:19 | CONS ---
Assessment/Plan Assessment/Plan Hospital Course (Demo Recall) Acute diastolic CHF: EF 60%. Improving with diuresis but still decompensated on exam Acute respiratory failure: Intubated for CABG. Extubated 12/20 Acute renal failure: Cr slightly increased post-op. Likely ATN but also REYNA possible from cath. Stable with diuresis. Expected to improve CAD s/p CAB vessel SVG-LAD, SVG-OM1/OM2 (sequenced), SVG-PDA. DE ANDA not used as injured during prep. NSTEMI: Trop 1 and trended down. No active chest pain. Three vessel CAD on cath s/p CABG PAD s/p left leg balloon angioplasty and stenting 2016 DM HTN HL Alcohol abuse: no cirrhosis or bleeding. -decrease to lasix 40mg IV BID, deescalate of the weekend -ASA 325mg. Will consider decreasing to 81mg and adding plavix prior to d/c -lipitor 80mg -restart metoprolol 50mg BID Consultation Date/Type/Reason Admit Date/Time Dec 15, 2018 at 16:16 Initial Consult Date 12/16/18 Type of Consult Cardiology Requesting Provider: JUAN M VENEGAS Date/Time of Note DATE: 12/20/18 TIME: 14:15 24 HR Interval Summary Free Text/Dictation Extubated this am. Has some chest pain but otherwise no complaints. Diuresing well. CXR improved. Cr relatively stable. Just had a BM Exam/Review of Systems Vital Signs Vitals Vital Signs Date Temp Pulse Resp B/P (MAP) Pulse Ox O2 O2 Flow FiO2 Time Delivery Rate 12/20/18 94 27 142/75 94 Nasal 4.0 13:00 (97) Cannula 12/20/18 100.4 12:00 12/20/18 40 09:30 Intake and Output 12/19/18 12/19/18 12/20/18 1515:00 23:00 07:00 IntakeIntake Total 159.34 ml 468.970 ml 311.50 ml OutputOutput Total 826 ml 1091 ml 957 ml BalanceBalance -666.66 ml -622.030 ml -645.50 ml Exam Constitutional: alert Psych: no complaints, nl mood/affect Neck: jvd (9cm) Respiratory: crackles/rales, diminished breath sounds; No clear to auscultation Cardiovascular: regular rate and rhythm, edema (1+); No systolic murmur Gastrointestinal: soft, non-tender; No distended Neurological: nl mental status, nl speech Labs Result Diagram: 12/20/180 12/20/18 0430 Results 24hrs Laboratory Tests Test 12/19/18 14:22 12/19/18 15:06 12/19/18 16:10 12/19/18 17:14 Bedside Glucose 113 134 131 125 Test 12/19/18 18:15 12/19/18 19:11 12/19/18 20:03 12/19/18 20:07 Bedside Glucose 109 120 122 Hemoglobin 9.0 L Test 12/19/18 20:08 12/19/18 20:53 12/19/18 22:04 12/19/18 23:00 Hematocrit 27.1 L Potassium Level 3.9 Magnesium Level 2.8 H Bedside Glucose 115 117 127 Test 12/19/18 23:58 12/20/18 00:57 12/20/18 02:04 12/20/18 02:54 Bedside Glucose 118 112 112 115 Test 12/20/18 03:55 12/20/18 04:30 12/20/18 04:50 12/20/18 04:58 Bedside Glucose 103 96 White Blood 14.9 H Count Red Blood Count 2.88 L Hemoglobin 8.7 L Hematocrit 26.7 L Mean Corpuscular 92.7 Volume Mean Corpuscular 30.2 Hemoglobin Mean Corpuscular 32.6 Hemoglobin Migdalia nt Red Cell 15.0 H Distribution Width Platelet Count 327 Mean Platelet 10.2 Volume Immature 0.500 H Granulocytes % Neutrophils % 82.7 H Lymphocytes % 8.8 L Monocytes % 6.9 Eosinophils % 0.6 Basophils % 0.5 Nucleated Red 0.0 Blood Cells % Immature 0.080 H Granulocytes # Neutrophils # 12.3 H Lymphocytes # 1.3 Monocytes # 1.0 H Eosinophils # 0.1 Basophils # 0.1 Nucleated Red 0.0 Blood Cells # Sodium Level 145 H Potassium Level 3.5 Chloride Level 116 H Carbon Dioxide 23 Level Anion Gap 6 Blood Urea 22 H Nitrogen Creatinine 1.88 H Est Glomerular 36 L Filtrat Rate mL/min Glucose Level 102 # Calcium Level 8.4 Phosphorus Level 6.5 H Magnesium Level 2.6 H Total Bilirubin 0.1 L Direct Bilirubin 0.00 Indirect 0.1 Bilirubin Aspartate Amino 102 H Transf (AST/SGOT ) Alanine 32 Aminotransferase (ALT/SGPT) Alkaline 59 Phosphatase Total Protein 5.0 L Albumin 2.4 L Globulin 2.60 Albumin/Globulin 0.92 Ratio Blood Gas BLMV Specimen Source Arterial Blood 12/20/2018 4:50:54 Date Drawn AM Arterial Blood VENOUS LINE Gas Puncture Site Demond Test N/A Mixed Venous 33.7 Blood PO2 Mixed Venous 61.8 L Blood O2 Saturation Mixed Venous 12.7 Blood Total Hemoglobin Mixed Venous 61.5 Blood Oxyhemoglo bin Mixed Venous 0.1 Bld Carboxyhemog lobin Mixed Venous 0.4 Blood Methemoglo bin Blood Gas 37.0 Temperature Blood Gas 14.0 Respiration Rate Blood Gas Actual 14 Respiration Rate Blood Gas VENT - AC Modality FiO2 50.0 Blood Gas Tidal 600.0 Volume Blood Gas Low 5.0 PEEP Setting Blood Gas L. Magalis [employer] ATTENDANT Notified Whom Blood Gas 12/20/2018 5:05:30 Notified Time AM Test 12/20/18 05:00 12/20/18 05:52 12/20/18 06:50 12/20/18 07:57 Blood Gas Blood arterial Specimen Source Arterial Blood 12/20/2018 4:48:52 Date Drawn AM Arterial Blood 7.399 pH (Temp corrected) Arterial Blood 35.3 pCO2 (Temp correct) Arterial Blood 78.3 L pO2 (Temp corrected) Arterial Blood 21.3 L HCO3 Arterial Blood -2.9 Base Excess Arterial Blood 94.3 L Oxygen Saturatio n Demond Test N/A Arterial Blood A-Line Gas Puncture Site Arterial 0.3 Blood Carboxyhem oglobin Arterial Blood 0.2 Methemoglobin Blood Gas A-a O2 238.5 H Differential Oxyhemoglobin 93.8 Percent Blood Gas 37.0 Temperature Blood Gas 14.0 Respiration Rate Blood Gas Actual 14 Respiration Rate Blood Gas VENT - AC Modality FiO2 50.0 Blood Gas Tidal 600.0 Volume Blood Gas Low 5.0 PEEP Setting Blood Gas L. Magalis [employer]RARY ATTENDANT Notified Whom Blood Gas 12/20/2018 4:58:39 Notified Time AM Bedside Glucose 108 118 138 Test 12/20/18 09:02 12/20/18 10:06 12/20/18 11:52 12/20/18 13:22 Bedside Glucose 116 118 143 153 Medications Medications Current Medications Levalbuterol (Xopenex Neb) 1.25 mg Q4H RESP THERAPY PRN HHN sob Last administered on 12/18/18at 08:41; Admin Dose 1.25 MG; Start 12/16/18 at 02:00 Miscellaneous Information (* Miscellaneous Pharmacy Order) Treatment of Hypoglycemia: 1.BG 51... Per protocol XX ; Start 12/18/18 at 20:30 Dextrose (D50w Syringe) 25 ml Q15M PRN IV .DECREASED GLUCOSE; Start 12/18/18 at 20:30 Dextrose (D50w Syringe) 50 ml Q15M PRN IV .DECREASED GLUCOSE; Start 12/18/18 at 20:30 Albumin Human 250 ml @ 500 mls/hr PRN PRN IV CVP< 8, OR SBP<90 Last a dministered on 12/19/18at 15:54; Admin Dose 500 MLS/HR; Start 12/18/18 at 20:30 Hydromorphone HCl (Dilaudid) 0.2 mg Q15M PRN IV PAIN LEVEL 1-5; Start 12/18/18 at 20:30 Hydromorphone HCl (Dilaudid) 0.4 mg Q15M PRN IV PAIN LEVEL 6-10 Last administered on 12/20/18at 08:57; Admin Dose 0.4 MG; Start 12/18/18 at 20:30 Oxycodone/ Acetaminophen (Percocet (5/ 325)) 1 tab Q3H PRN PO PAIN LEVEL 1-5; Start 12/18/18 at 20:30 Oxycodone/ Acetaminophen (Percocet (5/ 325)) 2 tab Q3H PRN PO PAIN LEVEL 6-10; Start 12/18/18 at 20:30 Ondansetron HCl (Zofran Inj) 4 mg Q6H PRN IV NAUSEA AND/OR VOMITING; Start 12/18/18 at 20:30 Famotidine (Pepcid Iv) 20 mg BID@08,20 IV Last administered on 12/20/18at 08:47; Admin Dose 20 MG; Start 12/19/18 at 08:00 Famotidine (Pepcid) 20 mg BID PO ; Start 12/18/18 at 21:00; Status Hold Acetaminophen (Tylenol Tab) 650 mg Q3H PRN PO ELEVATED TEMPERATURE Last administered on 12/19/18at 14:57; Admin Dose 650 MG; Start 12/18/18 at 20:30 Potassium Chloride 50 ml @ 50 mls/hr SEE DIRECTION PRN IVPB K+ LEVEL Last administered on 12/20/18 09:53; Admin Dose 50 MLS/HR; Start 12/18/18 at 20:30 Magnesium Sulfate/ Dextrose 100 ml @ 100 mls/hr PRN PRN IVPB PENDING LAB VALUE; Start 12/18/18 at 20:30 Enoxaparin Sodium (Lovenox) 40 mg BID SC Last administered on 12/20/18 08:48; Admin Dose 40 MG; Start 12/18/18 at 21:00 Atorvastatin Calcium (Lipitor) 80 mg HS PO ; Start 12/18/18 at 21:00 Miscellaneous Information (* Miscellaneous Pharmacy Order) Treatment of Hypoglycemia: 1.BG 51... Per protocol XX ; Start 12/18/18 at 21:00 Dextrose (D50w Syringe) 25 ml Q15M PRN IV .DECREASED GLUCOSE; Start 12/18/18 at 21:00 Dextrose (D50w Syringe) 50 ml Q15M PRN IV .DECREASED GLUCOSE; Start 12/18/18 at 21:00 Furosemide (Lasix) 60 mg BID DIURETICS IV Last administered on 12/20/18 05:53; Admin Dose 60 MG; Start 12/19/18 at 08:30 Aspirin (Aspirin) 325 mg DAILY PO Last administered on 12/20/18 08:47; Admin Dose 325 MG; Start 12/19/18 at 09:00 Levalbuterol (Xopenex Hfa) 4 puff Q6H RESP THERAPY INH Last administered on 12/20/18 08:07; Admin Dose 4 PUFF; Start 12/19/18 at 14:00 Acetaminophen (Tylenol Liquid) 650 mg Q4H PRN NGT MILD PAIN(1-3)OR ELEVATED TEMP Last administered on 12/20/18 06:00; Admin Dose 650 MG; Start 12/20/18 at 06:00 Phenylephrine HCl 80 mg/Dextrose 250 ml @ 18.75 mls/ hr TITRATE IV ; Start 12/20/18 at 11:30 Lorazepam (Ativan) 2 mg Q6H PRN IV Anxiety; Start 12/20/18 at 11:30 Hydralazine HCl (Apresoline) 10 mg Q6H PRN IV SBP>160; Start 12/20/18 at 11:30 Insulin Glargine (Lantus) 26 units DAILY@0800 SC ; Start 12/21/18 at 08:00 Insulin Aspart (Novolog Insulin Pen) 9 unit WITH MEALS SC Last administered on 12/20/18at 13:25; Admin Dose 9 UNIT; Start 12/20/18 at 13:00 Insulin Aspart (Novolog Insulin Pen) NOVOLOG *MILD* ALGORITHM WITH MEALS BEDTIME SC Last administered on 12/20/18at 13:24; Admin Dose 1 UNIT; Start 12/20/18 at 13:00 JUAN M VENEGAS December 20, 2018 14:19
[2018-12-20] MEDS: METOPROLOL 50 MG TAB PO SCH ×2 (16:11→23:23)
[2018-12-20] MEDS: FUROSEMIDE 40 MG INJ IV SCH (17:14)
--- NOTE | 2018-12-20 19:47 | CONS ---
DATE OF ADMISSION: 12/15/2018 DATE OF CONSULTATION: 12/20/2018 TYPE OF CONSULTATION: Nephrology. REASON FOR CONSULTATION: Acute kidney injury. REQUESTING PHYSICIAN: Dr. Marie. HISTORY OF PRESENT ILLNESS: This is a 63-year-old male with a past medical history of coron lexy artery disease, history of alcohol abuse, history of CVA, history of diabetes, hypertension, josie pheral vascular disease, history of ____ neuropathy who presented to [facility] wit h worsening abdominal pain. The patient initially had similar complaints 4 days ago when patient was diagnosed with UTI, was given antibiotic therapy. Patient continued to have alcohol use. As a resu lt, he came back to the hospital. Upon arrival, the patient was noted to have a non-STEMI. He was s ubsequently admitted. In terms of the non-STEMI workup, the patient was seen by cardiology, Dr. Michael chapa. The patient had cardiac catheterization which showed evidence of multivessel disease. The cisco kelley underwent CABG evaluation by Dr. Rojas and then underwent 4-vessel CABG. Following the surger y, the patient has been in intensive care unit on full ventilatory support. The patient had no episo jaspal of hemoptysis, hematemesis, or hematochezia. In terms of patient's renal history, on admission, the patient had a creatinine of 1.21 mg/dL. The cisco kelley's creatinine has increased to 1.88 mg/dL. During that time, patient had excellent urinary out put. There has been no rashes, there is no frothy urine. The patient has had significant hemodynami c fluctuations. Had episode of hypotension. PAST MEDICAL HISTORY: As stated above, history of alcohol use, history of coronary artery disease, h istory of CVA, history of diabetes, history of hypertension, history of peripheral vascular disease. PAST SURGICAL HISTORY: Status post CABG. FAMILY HISTORY: No family history of kidney disease. SOCIAL HISTORY: Positive for alcohol use. MEDICATIONS: The patient's medications are reviewed. REVIEW OF SYSTEMS: Unable to do adequate review of systems as patient is obtunded. Pertinent positi ves as obtained by reviewing medical records, speaking to hospital staff, stated in HPI, otherwise ne gative. PHYSICAL EXAMINATION: VITAL SIGNS: Blood pressure is 148/73, respirations 25, pulse ____, temperature 98.6. HEENT: Head is normocephalic. NECK: Supple. HEART: Regular rate. LUNGS: Show diminished breath sounds at base. ABDOMEN: Soft, nontender to palpation. No rebound or guarding. EXTREMITIES: Negative for clubbing, cyanosis. Positive edema. DERMATOLOGIC: No rashes. MUSCULOSKELETAL: No joint effusions. NEUROLOGIC: The patient is obtunded. LABORATORY DATA: Has been reviewed. Urinalysis on 12/18 was reviewed. Urine cultures were reviewed . IMAGING STUDIES: Reviewed. ASSESSMENT AND PLAN: This is a 63-year-old male who presents with: 1. Nonoliguric acute kidney injury with previous baseline creatinine 1.1 to 1.2 mg/dL. Etiology of ANGEL is likely multifactorial secondary to tubular injury due to hemodynamics, CABG, nephrotoxicity, c ontrast exposure. The patient appears to be in injury phase of acute kidney injury as renal function continues to decline. The possibility of a cardiorenal syndrome is also a consideration. Plan at t his point is to repeat UA with microanalysis, will check urine electrolytes, will check a renal ultra sound to evaluate renal parenchyma. We will monitor I's and O's closely. We will recommend to monit or renal function closely on diuretic therapy, consider deescalation of diuretic therapy in order to enable fluid to mobilize. We will otherwise continue current treatment plans, supportive care, renal ly dose all medication. 2. Anemia. Continue to monitor H and H levels. 3. Hypernatremia. The patient has a free water deficit of approximately 1 liter. We will continue to monitor sodium levels closely. We will start the patient on free water flushes. 4. Mineral bone disorder. Monitor calcium and phosphorus levels. 5. Ventilator-dependent respiratory failure. Vent settings and ABG was reviewed. Continue to monit or. 6. Acute diastolic heart failure. The patient remains decompensated. Noted pulmonary edema, lower extremity edema, elevated JVD. Continue diuretic therapy as stated above, deescalate in order to berhane ble fluid to mobilize. Monitor renal function and electrolytes closely. 7. Coronary artery disease, status post 4-vessel CABG. Continue current medical management. 8. Non-STEMI. Continue current treatment plan. 9. Peripheral arterial disease. Continue current treatment plan. 10. Diabetes. Continue current insulin management. 11. Hypertension. Continue blood pressure regimen. 12. Dyslipidemia. Continue statin therapy. 13. History of ETOH abuse, currently stable. No signs of cirrhosis. Thank you, Frank, for this interesting consult. It will be a pleasure to follow patient with you t hroughout the hospital course. Dictated By: KIERAN CAMARENA/SOFIYA Conf#: [id number] DID#: [id number]
[2018-12-20] MEDS: ATORVASTATIN 80 MG TAB PO SCH (20:40)
[2018-12-20] MEDS: OXYCODONE/ACETAMINOPHEN (5/325) TAB PO PRN (20:41)
[2018-12-20] MEDS: BALSAM PERU/CASTOR OIL 60 GM TUBE TOP SCH (21:37)
[2018-12-21] VITALS (18 sets, daily range): BP systolic 112–152; BP diastolic 55–71; PULSE 71–85; RESP 14–31
[2018-12-21] MEDS: FUROSEMIDE 40 MG INJ IV SCH ×2 (06:02→18:12)
--- NOTE | 2018-12-21 06:57 | PN ---
Date/Time of Note Date/Time of Note DATE: 12/21/18 TIME: 06:55 Assessment/Plan VTE Prophylaxis Risk score (from Ns)>0 risk: 13 SCD applied (from Ns): No SCD contraindicated: other Pharmacological prophylaxis: other Lines/Catheters [facility] Saline Lock Urinary Cath still in place: Yes Reason Cath still needed: urinary retention Assessment/Plan Hospital Course renal follow up all noted remains in ICU has good uop ARF is improving d/w Dr Clement no fever ,chills, vomiting, hematuria, melena or tachypnea PHYSICAL EXAMINATION: HEENT: Head is normocephalic. NECK: Supple. HEART: Regular rate. LUNGS: Show diminished breath sounds at base. ABDOMEN: Soft, nontender to palpation. No rebound or guarding. EXTREMITIES: Negative for clubbing, cyanosis. Positive edema. DERMATOLOGIC: No rashes. MUSCULOSKELETAL: No joint effusions. NEUROLOGIC: The patient is obtunded. ASSESSMENT AND PLAN: This is a 63-year-old male who presents with: 1. Nonoliguric acute kidney injury with previous baseline creatinine 1.1 to 1.2 mg/dL. Etiology of ANGEL is likely multifactorial secondary to tubular injury due to hemodynamics, CABG, nephrotoxicity, contrast exposure. The patient appears to be in injury phase of acute kidney injury as renal function continues to decline. We will recommend to monitor renal function closely on diuretic therapy, consider deescalation of diuretic therapy in order to enable fluid to mobilize. We will otherwise continue current treatment plans, supportive care, renally dose all medication. 2. Anemia. Continue to monitor H and H levels. 3. Hypernatremia. The patient has a free water deficit of approximately 1 liter. We will continue to monitor sodium levels closely. We will start the patient on free water flushes. 4. Mineral bone disorder. Monitor calcium and phosphorus levels. 5. Ventilator-dependent respiratory failure. Vent settings and ABG was reviewed. Continue to monitor. 6. Acute diastolic heart failure. The patient remains decompensated. Noted pulmonary edema, lower extremity edema, elevated JVD. Continue diuretic therapy as stated above, deescalate in order to enable fluid to mobilize. Monitor renal function and electrolytes closely. 7. Coronary artery disease, status post 4-vessel CABG. Continue current medical management. 8. Non-STEMI. Continue current treatment plan. 9. Peripheral arterial disease. Continue current treatment plan. 10. Diabetes. Continue current insulin management. 11. Hypertension. Continue blood pressure regimen. 12. Dyslipidemia. Continue statin therapy. 13. History of ETOH abuse, currently stable. No signs of cirrhosis. Result Diagram: 12/21/18 0441 12/21/18 0441 Results 24hrs Laboratory Tests Test 12/20/18 07:57 12/20/18 09:02 12/20/18 10:06 12/20/18 11:52 Bedside Glucose 138 116 118 143 Test 12/20/18 13:22 12/20/18 17:07 12/20/18 20:43 12/21/18 04:41 Bedside Glucose 153 133 85 White Blood Count 18.6 #H Red Blood Count 2.87 L Hemoglobin 8.7 L Hematocrit 27.5 L Mean Corpuscular Volume 95.8 Mean Corpuscular 30.3 Hemoglobin Mean Corpuscular 31.6 L Hemoglobin Concent Red Cell Distribution 14.8 H Width Platelet Count 416 #H Mean Platelet Volume 10.1 Immature Granulocytes % 0.700 H Neutrophils % 82.1 H Lymphocytes % 8.5 L Monocytes % 7.0 Eosinophils % 1.1 Basophils % 0.6 Nucleated Red Blood 0.0 Cells % Immature Granulocytes # 0.130 H Neutrophils # 15.2 H Lymphocytes # 1.6 Monocytes # 1.3 H Eosinophils # 0.2 Basophils # 0.1 Nucleated Red Blood 0.0 Cells # Sodium Level 146 H Potassium Level 3.8 Chloride Level 113 H Carbon Dioxide Level 25 Anion Gap 8 Blood Urea Nitrogen 24 H Creatinine 1.61 H Est Glomerular Filtrat 44 L Rate mL/min Glucose Level 113 Calcium Level 8.7 Phosphorus Level 4.1 # Magnesium Level 2.6 H Exam/Review of Systems Exam Vitals Vital Signs Date Temp Pulse Resp B/P (MAP) Pulse Ox O2 O2 Flow FiO2 Time Delivery Rate 12/21/18 80 20 136/71 96 Nasal 06:00 (92) Cannula 12/21/18 4.0 04:00 12/21/18 99.8 04:00 12/20/18 40 09:30 Intake and Output 12/20/18 12/20/18 12/21/18 1515:00 23:00 07:00 IntakeIntake Total 492.0 ml 735 ml OutputOutput Total 1149 ml 1400 ml 405 ml BalanceBalance -657.0 ml -665 ml -405 ml Results Results 24hrs Laboratory Tests Test 12/20/18 07:57 12/20/18 09:02 12/20/18 10:06 12/20/18 11:52 Bedside Glucose 138 116 118 143 Test 12/20/18 13:22 12/20/18 17:07 12/20/18 20:43 12/21/18 04:41 Bedside Glucose 153 133 85 White Blood Count 18.6 #H Red Blood Count 2.87 L Hemoglobin 8.7 L Hematocrit 27.5 L Mean Corpuscular Volume 95.8 Mean Corpuscular 30.3 Hemoglobin Mean Corpuscular 31.6 L Hemoglobin Concent Red Cell Distribution 14.8 H Width Platelet Count 416 #H Mean Platelet Volume 10.1 Immature Granulocytes % 0.700 H Neutrophils % 82.1 H Lymphocytes % 8.5 L Monocytes % 7.0 Eosinophils % 1.1 Basophils % 0.6 Nucleated Red Blood 0.0 Cells % Immature Granulocytes # 0.130 H Neutrophils # 15.2 H Lymphocytes # 1.6 Monocytes # 1.3 H Eosinophils # 0.2 Basophils # 0.1 Nucleated Red Blood 0.0 Cells # Sodium Level 146 H Potassium Level 3.8 Chloride Level 113 H Carbon Dioxide Level 25 Anion Gap 8 Blood Urea Nitrogen 24 H Creatinine 1.61 H Est Glomerular Filtrat 44 L Rate mL/min Glucose Level 113 Calcium Level 8.7 Phosphorus Level 4.1 # Magnesium Level 2.6 H Medications Medication Current Medications Levalbuterol (Xopenex Neb) 1.25 mg Q4H RESP THERAPY PRN HHN sob Last ad ministered on 12/18/18at 08:41; Admin Dose 1.25 MG; Start 12/16/18 at 02:00 Miscellaneous Information (* Miscellaneous Pharmacy Order) Treatment of Hypoglycemia: 1.BG 51... Per protocol XX ; Start 12/18/18 at 20:30 Dextrose (D50w Syringe) 25 ml Q15M PRN IV .DECREASED GLUCOSE; Start 12/18/18 at 20:30 Dextrose (D50w Syringe) 50 ml Q15M PRN IV .DECREASED GLUCOSE; Start 12/18/18 at 20:30 Albumin Human 250 ml @ 500 mls/hr PRN PRN IV CVP< 8, OR SBP<90 Last administered on 12/19/18 15:54; Admin Dose 500 MLS/HR; Start 12/18/18 at 20:30 Hydromorphone HCl (Dilaudid) 0.2 mg Q15M PRN IV PAIN LEVEL 1-5; Start 12/18/18 at 20:30 Hydromorphone HCl (Dilaudid) 0.4 mg Q15M PRN IV PAIN LEVEL 6-10 Last administer ed on 12/20/18 21:37; Admin Dose 0.4 MG; Start 12/18/18 at 20:30 Oxycodone/ Acetaminophen (Percocet (5/ 325)) 1 tab Q3H PRN PO PAIN LEVEL 1-5 Last administered on 12/20/18 20:41; Admin Dose 1 TAB; Start 12/18/18 at 20:30 Oxycodone/ Acetaminophen (Percocet (5/ 325)) 2 tab Q3H PRN PO PAIN LEVEL 6-10; Start 12/18/18 at 20:30 Ondansetron HCl (Zofran Inj) 4 mg Q6H PRN IV NAUSEA AND/OR VOMITING; Start 12/18/18 at 20:30 Famotidine (Pepcid Iv) 20 mg BID@08,20 IV Last administered on 12/20/18 20:40; Admin Dose 20 MG; Start 12/19/18 at 08:00 Famotidine (Pepcid) 20 mg BID PO ; Start 12/18/18 at 21:00; Status Hold Acetaminophen (Tylenol Tab) 650 mg Q3H PRN PO ELEVATED TEMPERATURE Last administered on 12/19/18at 14:57; Admin Dose 650 MG; Start 12/18/18 at 20:30 Potassium Chloride 50 ml @ 50 mls/hr SEE DIRECTION PRN IVPB K+ LEVEL Last administered on 12/20/18 09:53; Admin Dose 50 MLS/HR; Start 12/18/18 at 20:30 Magnesium Sulfate/ Dextrose 100 ml @ 100 mls/hr PRN PRN IVPB PENDING LAB VALUE; Start 12/18/18 at 20:30 Enoxaparin Sodium (Lovenox) 40 mg BID SC Last administered on 12/20/18 20:42; Admin Dose 40 MG; Start 12/18/18 at 21:00 Atorvastatin Calcium (Lipitor) 80 mg HS PO Last administered on 12/20/18at 20:40; Admin Dose 80 MG; Start 12/18/18 at 21:00 Miscellaneous Information (* Miscellaneous Pharmacy Order) Treatment of Hypoglycemia: 1.BG 51... Per protocol XX ; Start 12/18/18 at 21:00 Dextrose (D50w Syringe) 25 ml Q15M PRN IV .DECREASED GLUCOSE; Start 12/18/18 at 21:00 Dextrose (D50w Syringe) 50 ml Q15M PRN IV .DECREASED GLUCOSE; Start 12/18/18 at 21:00 Aspirin (Aspirin) 325 mg DAILY PO Last administered on 12/20/18at 08:47; Admin Dose 325 MG; Start 12/19/18 at 09:00 Acetaminophen (Tylenol Liquid) 650 mg Q4H PRN NGT MILD PAIN(1-3)OR ELEVATED TEMP Last administered on 12/20/18at 06:00; Admin Dose 650 MG; Start 12/20/18 at 06:00 Phenylephrine HCl 80 mg/Dextrose 250 ml @ 18.75 mls/ hr TITRATE IV ; Start 12/20/18 at 11:30 Lorazepam (Ativan) 2 mg Q6H PRN IV Anxiety; Start 12/20/18 at 11:30 Hydralazine HCl (Apresoline) 10 mg Q6H PRN IV SBP>160; Start 12/20/18 at 11:30 Insulin Glargine (Lantus) 26 units DAILY@0800 SC ; Start 12/21/18 at 08:00 Insulin Aspart (Novolog Insulin Pen) 9 unit WITH MEALS SC Last administered on 12/20/18at 17:12; Admin Dose 9 UNIT; Start 12/20/18 at 13:00 Insulin Aspart (Novolog Insulin Pen) NOVOLOG *MILD* ALGORITHM WITH MEALS BEDTIME SC Last administered on 12/20/18at 13:24; Admin Dose 1 UNIT; Start 12/20/18 at 13:00 Furosemide (Lasix) 40 mg BID DIURETICS IV Last administered on 12/21/18at 06:02; Admin Dose 40 MG; Start 12/20/18 at 18:00 Metoprolol Tartrate (Lopressor) 50 mg BID PO Last administered on 12/20/18at 23:23; Admin Dose 50 MG; Start 12/20/18 at 14:30 RADHA FAULKNER DO December 21, 2018 06:57
[2018-12-21] MEDS: BALSAM PERU/CASTOR OIL 60 GM TUBE TOP SCH ×2 (08:04→20:14)
[2018-12-21] MEDS: ASPIRIN 325 MG TAB PO SCH (08:04)
[2018-12-21] MEDS: METOPROLOL 50 MG TAB PO SCH ×2 (08:04→20:11)
[2018-12-21] MEDS: ENOXAPARIN 40 MG/0.4 ML SYG SC SCH ×2 (08:06→20:48)
[2018-12-21] MEDS: INSULIN GLARGINE [LANTus] (100 UNITS/ML) SYG SC SCH (08:07)
[2018-12-21] MEDS: INSULIN ASPART [NOVOLOG] 3 ML PEN SC SCH ×7 (08:08→20:48)
[2018-12-21] MEDS: FAMOTIDINE 20 MG INJ IV SCH ×2 (08:14→20:11)
--- NOTE | 2018-12-21 09:13 | CONS ---
Assessment/Plan Assessment/Plan Assessment/Plan (Daily) Acute diastolic CHF: EF 60%. Improving with diuresis but still decompensated on exam Acute respiratory failure: Intubated for CABG. Extubated 5/3 Acute renal failure: Cr slightly increased post-op. Likely ATN but also REYNA possible from cath. Stable with diuresis. Expected to improve CAD s/p CAB vessel SVG-LAD, SVG-OM1/OM2 (sequenced), SVG-PDA. DE ANDA not used as injured during prep. NSTEMI: Trop 1 and trended down. No active chest pain. Three vessel CAD on cath s/p CABG PAD s/p left leg balloon angioplasty and stenting 2016 DM HTN HL Alcohol abuse: no cirrhosis or bleeding. -decrease to lasix 40mg IV BID, deescalate of the weekend -ASA 325mg. Will consider decreasing to 81mg and adding plavix prior to d/c -lipitor 80mg -restart metoprolol 50mg BID continue present regimen check cxr doing well ct and out of icu per thoracic surgery Consultation Date/Type/Reason Admit Date/Time Dec 15, 2018 at 16:16 Type of Consult Cardiology Reason for Consultation post cabg Date/Time of Note DATE: 12/21/18 TIME: 09:09 Hx of Present Illness Acute diastolic CHF: EF 60%. Improving with diuresis but still decompensated on exam Acute respiratory failure: Intubated for CABG. Extubated 5/3 Acute renal failure: Cr slightly increased post-op. Likely ATN but also REYNA possible from cath. Stable with diuresis. Expected to improve CAD s/p CAB vessel SVG-LAD, SVG-OM1/OM2 (sequenced), SVG-PDA. DE ANDA not used as injured during prep. NSTEMI: Trop 1 and trended down. No active chest pain. Three vessel CAD on cath s/p CABG PAD s/p left leg balloon angioplasty and stenting 2016 DM HTN HL Alcohol abuse: no cirrhosis or bleeding. -decrease to lasix 40mg IV BID, deescalate of the weekend -ASA 325mg. Will consider decreasing to 81mg and adding plavix prior to d/c -lipitor 80mg -restart metoprolol 50mg BID ok post op Past Medical History Home Meds Active Scripts Gabapentin* (Gabapentin*) 300 Mg Capsule, 300 MG PO TID, #90 CAP Prov:RADHA ROTHMAN 12/11/18 Ciprofloxacin Hcl* (Ciprofloxacin Hcl*) 250 Mg Tablet, 250 MG PO BID for 3 Days, #6 TAB Prov:RADHA ROTHMAN 12/11/18 Furosemide* (Furosemide*) 20 Mg Tablet, 20 MG PO DAILY for 3 Days, #3 TAB Prov:FOX JAVED 09/02/18 Omeprazole* (Omeprazole*) 20 Mg Capsule.dr, 20 MG PO DAILY, #30 CAP Prov:RENU WHITE 08/22/18 Levofloxacin* (Levaquin*) 500 Mg Tablet, 500 MG PO DAILY for 5 Days, #5 TAB Prov:RENU WHITE 08/22/18 Salmeterol Xinaf/Fluticasone* (Advair*) 250-50 Diskus Inhaler, 1 INH INH BID for 30 Days Prov:SANAZ DAVIS MD 04/15/17 Aspirin* (Aspirin* EC) 81 Mg Tablet., 81 MG PO DAILY for 30 Days Prov:SANAZ DAVIS MD 04/15/17 Atorvastatin* (Atorvastatin*) 40 Mg Tablet, 40 MG PO HS for 30 Days, TAB Prov:SANAZ DAVIS MD 04/15/17 Clopidogrel Bisulfate (Clopidogrel) 75 Mg Tablet, 75 MG PO DAILY for 30 Days, TAB Prov:SANAZ DAVIS MD 04/15/17 Amlodipine Besylate* (Norvasc*) 5 Mg Tablet, 2.5 MG PO DAILY for 30 Days, TAB Prov:SANAZ DAVIS MD 04/15/17 Insulin Aspart* (Novolog Insulin Pen*) 100 Unit/Ml Soln, 15 UNIT SC WITH MEALS for 30 Days, #1 SYR Prov:HERRERA,BRANDON V. RADIOLOGY THERAPIST 03/23/17 Metformin Hcl (Glucophage) 500 Mg Tablet, 1000 MG PO BID WITH MEALS for 30 Days, #60 TAB Prov:HERRERA,BRANDON V. RADIOLOGY THERAPIST 03/23/17 Linagliptin (TRADJENTA) 5 Mg Tablet, 5 MG PO DAILY for 30 Days, #30 TAB Prov:HERRERA,BRANDON V. RADIOLOGY THERAPIST 03/23/17 Insulin Glargine* (Lantus*) 100 Unit/Ml Soln, 45 UNIT SC HS for 30 Days, #1 SYR Prov:HERRERA,BRANDON Jorge RADIOLOGY THERAPIST 03/23/17 Reported Medications Ergocalciferol (Vitamin D2) (VITAMIN D2) 2,000 Unit Tablet, 2000 UNIT PO DAILY, TAB 03/15/17 Medications Current Medications Levalbuterol (Xopenex Neb) 1.25 mg Q4H RESP THERAPY PRN HHN sob Last administered on 12/18/18at 08:41; Admin Dose 1.25 MG; Start 12/16/18 at 02:00 Miscellaneous Information (* Miscellaneous Pharmacy Order) Treatment of Hypoglycemia: 1.BG 51... Per protocol XX ; Start 12/18/18 at 20:30 Dextrose (D50w Syringe) 25 ml Q15M PRN IV .DECREASED GLUCOSE; Start 12/18/18 at 20:30 Dextrose (D50w Syringe) 50 ml Q15M PRN IV .DECREASED GLUCOSE; Start 12/18/18 at 20:30 Albumin Human 250 ml @ 500 mls/hr PRN PRN IV CVP< 8, OR SBP<90 Last administered on 12/19/18at 15:54; Admin Dose 500 MLS/HR; Start 12/18/18 at 20:30 Hydromorphone HCl (Dilaudid) 0.2 mg Q15M PRN IV PAIN LEVEL 1-5; Start 12/18/18 at 20:30 Hydromorphone HCl (Dilaudid) 0.4 mg Q15M PRN IV PAIN LEVEL 6-10 Last administered on 12/20/18at 21:37; Admin Dose 0.4 MG; Start 12/18/18 at 20:30 Oxycodone/ Acetaminophen (Percocet (5/ 325)) 1 tab Q3H PRN PO PAIN LEVEL 1-5 Last administered on 12/20/18at 20:41; Admin Dose 1 TAB; Start 12/18/18 at 20:30 Oxycodone/ Acetaminophen (Percocet (5/ 325)) 2 tab Q3H PRN PO PAIN LEVEL 6-10; Start 12/18/18 at 20:30 Ondansetron HCl (Zofran Inj) 4 mg Q6H PRN IV NAUSEA AND/OR VOMITING; Start 12/18/18 at 20:30 Famotidine (Pepcid Iv) 20 mg BID@08,20 IV Last administered on 12/21/18 08:14; Admin Dose 20 MG; Start 12/19/18 at 08:00 Famotidine (Pepcid) 20 mg BID PO ; Start 12/18/18 at 21:00; Status Hold Acetaminophen (Tylenol Tab) 650 mg Q3H PRN PO ELEVATED TEMPERATURE Last a dministered on 12/19/18 14:57; Admin Dose 650 MG; Start 12/18/18 at 20:30 Potassium Chloride 50 ml @ 50 mls/hr SEE DIRECTION PRN IVPB K+ LEVEL Last administered on 12/20/18 09:53; Admin Dose 50 MLS/HR; Start 12/18/18 at 20:30 Magnesium Sulfate/ Dextrose 100 ml @ 100 mls/hr PRN PRN IVPB PENDING LAB V ALUE; Start 12/18/18 at 20:30 Enoxaparin Sodium (Lovenox) 40 mg BID SC Last administered on 12/21/18 08:06; Admin Dose 40 MG; Start 12/18/18 at 21:00 Atorvastatin Calcium (Lipitor) 80 mg HS PO Last administered on 12/20/18 20:40; Admin Dose 80 MG; Start 12/18/18 at 21:00 Miscellaneous Information (* Miscellaneous Pharmacy Order) Treatment of Hypoglycemia: 1.BG 51... Per protocol XX ; Start 12/18/18 at 21:00 Dextrose (D50w Syringe) 25 ml Q15M PRN IV .DECREASED GLUCOSE; Start 12/18/18 at 21:00 Dextrose (D50w Syringe) 50 ml Q15M PRN IV .DECREASED GLUCOSE; Start 12/18/18 at 21:00 Aspirin (Aspirin) 325 mg DAILY PO Last administered on 12/21/18 08:04; Admin Dose 325 MG; Start 12/19/18 at 09:00 Acetaminophen (Tylenol Liquid) 650 mg Q4H PRN NGT MILD PAIN(1-3)OR ELEVATED TEMP Last administered on 12/20/18 06:00; Admin Dose 650 MG; Start 12/20/18 at 06:00 Phenylephrine HCl 80 mg/Dextrose 250 ml @ 18.75 mls/ hr TITRATE IV ; Start 12/20/18 at 11:30 Lorazepam (Ativan) 2 mg Q6H PRN IV Anxiety; Start 12/20/18 at 11:30 Hydralazine HCl (Apresoline) 10 mg Q6H PRN IV SBP>160; Start 12/20/18 at 11:30 Insulin Glargine (Lantus) 26 units DAILY@0800 SC Last administered on 12/21/18at 08:07; Admin Dose 26 UNITS; Start 12/21/18 at 08:00 Insulin Aspart (Novolog Insulin Pen) 9 unit WITH MEALS SC Last administered on 12/21/18at 08:08; Admin Dose 9 UNIT; Start 12/20/18 at 13:00 Insulin Aspart (Novolog Insulin Pen) NOVOLOG *MILD* ALGORITHM WITH MEALS BEDTIME SC Last administered on 12/21/18at 08:09; Admin Dose 1 UNIT; Start 12/20/18 at 13:00 Furosemide (Lasix) 40 mg BID DIURETICS IV Last administered on 12/21/18at 06:02; Admin Dose 40 MG; Start 12/20/18 at 18:00 Metoprolol Tartrate (Lopressor) 50 mg BID PO Last administered on 12/21/18at 08:04; Admin Dose 50 MG; Start 12/20/18 at 14:30 Piperacillin Sod/ Tazobactam Sod 100 ml @ 200 mls/hr Q6 IVPB ; Start 12/21/18 at 12:00; Status UNV Allergies: Coded Allergies: No Known Allergy (Unverified , 08/30/18) Past Surgical History Past Surgical Hx: other (right LE venous ulcers) Social History Alcohol Use: occasionally Smoking Status: Never smoker Drug Use: none Exam/Review of Systems Vital Signs Vitals Vital Signs Date Temp Pulse Resp B/P (MAP) Pulse Ox O2 O2 Flow FiO2 Time Delivery Rate 12/21/18 85 08:00 12/21/18 20 136/71 96 Nasal 06:00 (92) Cannula 12/21/18 4.0 04:00 12/21/18 99.8 04:00 12/20/18 40 09:30 Intake and Output 12/20/18 12/20/18 12/21/18 1515:00 23:00 07:00 IntakeIntake Total 492.0 ml 735 ml OutputOutput Total 1149 ml 1400 ml 405 ml BalanceBalance -657.0 ml -665 ml -405 ml Exam Exam Constitutional: alert Psych: no complaints, nl mood/affect Neck: jvd (9cm) Respiratory: crackles/rales, diminished breath sounds; No clear to auscultation Cardiovascular: regular rate and rhythm, edema (1+); improved gas exchange No systolic murmur Gastrointestinal: soft, non-tender; No distended Neurological: nl mental status, nl speech Labs Result Diagram: 12/21/18 0441 12/21/18 0441 Results 24hrs Laboratory Tests Test 12/20/18 10:06 12/20/18 11:52 12/20/18 13:22 12/20/18 17:07 Bedside Glucose 118 143 153 133 Test 12/20/18 20:43 12/21/18 04:41 12/21/18 08:00 Bedside Glucose 85 165 White Blood Count 18.6 #H Red Blood Count 2.87 L Hemoglobin 8.7 L Hematocrit 27.5 L Mean Corpuscular Volume 95.8 Mean Corpuscular 30.3 Hemoglobin Mean Corpuscular 31.6 L Hemoglobin Concent Red Cell Distribution 14.8 H Width Platelet Count 416 #H Mean Platelet Volume 10.1 Immature Granulocytes % 0.700 H Neutrophils % 82.1 H Lymphocytes % 8.5 L Monocytes % 7.0 Eosinophils % 1.1 Basophils % 0.6 Nucleated Red Blood 0.0 Cells % Immature Granulocytes # 0.130 H Neutrophils # 15.2 H Lymphocytes # 1.6 Monocytes # 1.3 H Eosinophils # 0.2 Basophils # 0.1 Nucleated Red Blood 0.0 Cells # Sodium Level 146 H Potassium Level 3.8 Chloride Level 113 H Carbon Dioxide Level 25 Anion Gap 8 Blood Urea Nitrogen 24 H Creatinine 1.61 H Est Glomerular Filtrat 44 L Rate mL/min Glucose Level 113 Calcium Level 8.7 Phosphorus Level 4.1 # Magnesium Level 2.6 H Imaging Imaging PROCEDURE: XR Chest. CLINICAL INDICATION: Shortness of breath, congestion TECHNIQUE: Single frontal radiograph of the chest. COMPARISON: DR CHEST 12/19/2018; ABAD CHEST 10/20/2016; CR CHEST 10/17/2016; CR CHEST 02/16/2016 FINDINGS: Postoperative changes from open thoracic surgery with sternotomy wires. Endotracheal tube and nasogastric tube in satisfactory position. [place] catheter unchanged. Mildly increased interstitial edema suggesting cardiopulmonary congestion. Small left pleural effusion unchanged. No pneumothorax. Cardiomegaly unchanged. Vascular calcifications of the aorta are present compatible with atherosclerosis. IMPRESSION: Mildly increased interstitial edema suggesting cardiopulmonary congestion. RPTAT: AADD .Negrito Hickman MD, MD Date Time Electronically viewed and signed by .Negrito Hickman MD, on 12/20/2018 08:45 .B/ CC: LAURA AVINA [phone] Medications Medications Current Medications Levalbuterol (Xopenex Neb) 1.25 mg Q4H RESP THERAPY PRN HHN sob Last administered on 12/18/18at 08:41; Admin Dose 1.25 MG; Start 12/16/18 at 02:00 Miscellaneous Information (* Miscellaneous Pharmacy Order) Treatment of Hypoglycemia: 1.BG 51... Per protocol XX ; Start 12/18/18 at 20:30 Dextrose (D50w Syringe) 25 ml Q15M PRN IV .DECREASED GLUCOSE; Start 12/18/18 at 20:30 Dextrose (D50w Syringe) 50 ml Q15M PRN IV .DECREASED GLUCOSE; Start 12/18/18 at 20:30 Albumin Human 250 ml @ 500 mls/hr PRN PRN IV CVP< 8, OR SBP<90 Last administered on 12/19/18at 15:54; Admin Dose 500 MLS/HR; Start 12/18/18 at 20:30 Hydromorphone HCl (Dilaudid) 0.2 mg Q15M PRN IV PAIN LEVEL 1-5; Start 12/18/18 at 20:30 Hydromorphone HCl (Dilaudid) 0.4 mg Q15M PRN IV PAIN LEVEL 6-10 Last administered on 12/20/18at 21:37; Admin Dose 0.4 MG; Start 12/18/18 at 20:30 Oxycodone/ Acetaminophen (Percocet (5/ 325)) 1 tab Q3H PRN PO PAIN LEVEL 1-5 Last administered on 12/20/18at 20:41; Admin Dose 1 TAB; Start 12/18/18 at 20:30 Oxycodone/ Acetaminophen (Percocet (5/ 325)) 2 tab Q3H PRN PO PAIN LEVEL 6-10; Start 12/18/18 at 20:30 Ondansetron HCl (Zofran Inj) 4 mg Q6H PRN IV NAUSEA AND/OR VOMITING; Start 12/18/18 at 20:30 Famotidine (Pepcid Iv) 20 mg BID@08,20 IV Last administered on 12/21/18at 08:14; Admin Dose 20 MG; Start 12/19/18 at 08:00 Famotidine (Pepcid) 20 mg BID PO ; Start 12/18/18 at 21:00; Status Hold Acetaminophen (Tylenol Tab) 650 mg Q3H PRN PO ELEVATED TEMPERATURE Last administered on 12/19/18at 14:57; Admin Dose 650 MG; Start 12/18/18 at 20:30 Potassium Chloride 50 ml @ 50 mls/hr SEE DIRECTION PRN IVPB K+ LEVEL Last administered on 12/20/18 09:53; Admin Dose 50 MLS/HR; Start 12/18/18 at 20:30 Magnesium Sulfate/ Dextrose 100 ml @ 100 mls/hr PRN PRN IVPB PENDING LAB VALUE; Start 12/18/18 at 20:30 Enoxaparin Sodium (Lovenox) 40 mg BID SC Last administered on 12/21/18at 08:06; Admin Dose 40 MG; Start 12/18/18 at 21:00 Atorvastatin Calcium (Lipitor) 80 mg HS PO Last administered on 12/20/18at 20:40; Admin Dose 80 MG; Start 12/18/18 at 21:00 Miscellaneous Information (* Miscellaneous Pharmacy Order) Treatment of Hypoglycemia: 1.BG 51... Per protocol XX ; Start 12/18/18 at 21:00 Dextrose (D50w Syringe) 25 ml Q15M PRN IV .DECREASED GLUCOSE; Start 12/18/18 at 21:00 Dextrose (D50w Syringe) 50 ml Q15M PRN IV .DECREASED GLUCOSE; Start 12/18/18 at 21:00 Aspirin (Aspirin) 325 mg DAILY PO Last administered on 12/21/18at 08:04; Admin Dose 325 MG; Start 12/19/18 at 09:00 Acetaminophen (Tylenol Liquid) 650 mg Q4H PRN NGT MILD PAIN(1-3)OR ELEVATED TEMP Last administered on 12/20/18 06:00; Admin Dose 650 MG; Start 12/20/18 at 06:00 Phenylephrine HCl 80 mg/Dextrose 250 ml @ 18.75 mls/ hr TITRATE IV ; Start 12/20/18 at 11:30 Lorazepam (Ativan) 2 mg Q6H PRN IV Anxiety; Start 12/20/18 at 11:30 Hydralazine HCl (Apresoline) 10 mg Q6H PRN IV SBP>160; Start 12/20/18 at 11:30 Insulin Glargine (Lantus) 26 units DAILY@0800 SC Last administered on 12/21/18 08:07; Admin Dose 26 UNITS; Start 12/21/18 at 08:00 Insulin Aspart (Novolog Insulin Pen) 9 unit WITH MEALS SC Last administered on 12/21/18 08:08; Admin Dose 9 UNIT; Start 12/20/18 at 13:00 Insulin Aspart (Novolog Insulin Pen) NOVOLOG *MILD* ALGORITHM WITH MEALS BEDTIME SC Last administered on 12/21/18 08:09; Admin Dose 1 UNIT; Start 12/20/18 at 13:00 Furosemide (Lasix) 40 mg BID DIURETICS IV Last administered on 12/21/18at 06:02; Admin Dose 40 MG; Start 12/20/18 at 18:00 Metoprolol Tartrate (Lopressor) 50 mg BID PO Last administered on 12/21/18 08:04; Admin Dose 50 MG; Start 12/20/18 at 14:30 Piperacillin Sod/ Tazobactam Sod 100 ml @ 200 mls/hr Q6 IVPB ; Start 12/21/18 at 12:00; Status NOHEMI LEROY,GRACIELA STEVEN MD December 21, 2018 09:13
--- NOTE | 2018-12-21 09:13 | PN ---
Date/Time of Note Date/Time of Note DATE: 12/21/18 TIME: 09:13 Objective Vitals Vital Signs Date Temp Pulse Resp B/P (MAP) Pulse Ox O2 O2 Flow FiO2 Time Delivery Rate 12/21/18 85 08:00 12/21/18 20 136/71 96 Nasal 06:00 (92) Cannula 12/21/18 4.0 04:00 12/21/18 99.8 04:00 12/20/18 40 09:30 Intake and Output 12/20/18 12/20/18 12/21/18 1515:00 23:00 07:00 IntakeIntake Total 492.0 ml 735 ml OutputOutput Total 1149 ml 1400 ml 405 ml BalanceBalance -657.0 ml -665 ml -405 ml Results Result Diagram: 12/21/18 0441 12/21/18 0441 Medications Medications Current Medications Levalbuterol (Xopenex Neb) 1.25 mg Q4H RESP THERAPY PRN HHN sob Last administered on 12/18/18at 08:41; Admin Dose 1.25 MG; Start 12/16/18 at 02:00 Miscellaneous Information (* Miscellaneous Pharmacy Order) Treatment of Hypoglycemia: 1.BG 51... Per protocol XX ; Start 12/18/18 at 20:30 Dextrose (D50w Syringe) 25 ml Q15M PRN IV .DECREASED GLUCOSE; Start 12/18/18 at 20:30 Dextrose (D50w Syringe) 50 ml Q15M PRN IV .DECREASED GLUCOSE; Start 12/18/18 at 20:30 Albumin Human 250 ml @ 500 mls/hr PRN PRN IV CVP< 8, OR SBP<90 Last administered on 12/19/18at 15:54; Admin Dose 500 MLS/HR; Start 12/18/18 at 20:30 Hydromorphone HCl (Dilaudid) 0.2 mg Q15M PRN IV PAIN LEVEL 1-5; Start 12/18/18 at 20:30 Hydromorphone HCl (Dilaudid) 0.4 mg Q15M PRN IV PAIN LEVEL 6-10 Last administered on 12/20/18at 21:37; Admin Dose 0.4 MG; Start 12/18/18 at 20:30 Oxycodone/ Acetaminophen (Percocet (5/ 325)) 1 tab Q3H PRN PO PAIN LEVEL 1-5 Last administered on 12/20/18at 20:41; Admin Dose 1 TAB; Start 12/18/18 at 20:30 Oxycodone/ Acetaminophen (Percocet (5/ 325)) 2 tab Q3H PRN PO PAIN LEVEL 6-10; Start 12/18/18 at 20:30 Ondansetron HCl (Zofran Inj) 4 mg Q6H PRN IV NAUSEA AND/OR VOMITING; Start 12/18/18 at 20:30 Famotidine (Pepcid Iv) 20 mg BID@08,20 IV Last administered on 12/21/18at 08:14; Admin Dose 20 MG; Start 12/19/18 at 08:00 Famotidine (Pepcid) 20 mg BID PO ; Start 12/18/18 at 21:00; Status Hold Acetaminophen (Tylenol Tab) 650 mg Q3H PRN PO ELEVATED TEMPERATURE Last administered on 12/19/18at 14:57; Admin Dose 650 MG; Start 12/18/18 at 20:30 Potassium Chloride 50 ml @ 50 mls/hr SEE DIRECTION PRN IVPB K+ LEVEL Last administered on 12/20/18at 09:53; Admin Dose 50 MLS/HR; Start 12/18/18 at 20:30 Magnesium Sulfate/ Dextrose 100 ml @ 100 mls/hr PRN PRN IVPB PENDING LAB VALUE; Start 12/18/18 at 20:30 Enoxaparin Sodium (Lovenox) 40 mg BID SC Last administered on 12/21/18at 08:06; Admin Dose 40 MG; Start 12/18/18 at 21:00 Atorvastatin Calcium (Lipitor) 80 mg HS PO Last administered on 12/20/18at 20:40; Admin Dose 80 MG; Start 12/18/18 at 21:00 Miscellaneous Information (* Miscellaneous Pharmacy Order) Treatment of Hypoglycemia: 1.BG 51... Per protocol XX ; Start 12/18/18 at 21:00 Dextrose (D50w Syringe) 25 ml Q15M PRN IV .DECREASED GLUCOSE; Start 12/18/18 at 21:00 Dextrose (D50w Syringe) 50 ml Q15M PRN IV .DECREASED GLUCOSE; Start 12/18/18 at 21:00 Aspirin (Aspirin) 325 mg DAILY PO Last administered on 12/21/18 08:04; Admin Dose 325 MG; Start 12/19/18 at 09:00 Acetaminophen (Tylenol Liquid) 650 mg Q4H PRN NGT MILD PAIN(1-3)OR ELEVATED TEMP Last administered on 12/20/18 06:00; Admin Dose 650 MG; Start 12/20/18 at 06:00 Phenylephrine HCl 80 mg/Dextrose 250 ml @ 18.75 mls/ hr TITRATE IV ; Start 12/20/18 at 11:30 Lorazepam (Ativan) 2 mg Q6H PRN IV Anxiety; Start 12/20/18 at 11:30 Hydralazine HCl (Apresoline) 10 mg Q6H PRN IV SBP>160; Start 12/20/18 at 11:30 Insulin Glargine (Lantus) 26 units DAILY@0800 SC Last administered on 12/21/18 08:07; Admin Dose 26 UNITS; Start 12/21/18 at 08:00 Insulin Aspart (Novolog Insulin Pen) 9 unit WITH MEALS SC Last administered on 12/21/18 08:08; Admin Dose 9 UNIT; Start 12/20/18 at 13:00 Insulin Aspart (Novolog Insulin Pen) NOVOLOG *MILD* ALGORITHM WITH MEALS BEDTIME SC Last administered on 12/21/18 08:09; Admin Dose 1 UNIT; Start 12/20/18 at 13:00 Furosemide (Lasix) 40 mg BID DIURETICS IV Last administered on 12/21/18 06:02; Admin Dose 40 MG; Start 12/20/18 at 18:00 Metoprolol Tartrate (Lopressor) 50 mg BID PO Last administered on 12/21/18 08:04; Admin Dose 50 MG; Start 12/20/18 at 14:30 Piperacillin Sod/ Tazobactam Sod 100 ml @ 200 mls/hr Q6 IVPB ; Start 12/21/18 at 12:00; Status UNV VTE Prophylaxis Risk score (from Nsg)>0 risk: 13 SCD applied (from Nsg): No SCD contraindication: other Lines/Catheters IV Catheter Type: Hooks in Place: No Assessment/Plan Hospital Course Subjective Patient doing well, going to the bathroom on commode, feeling well other than surgical site pain, still with tubes and drains Objective Physical exam General: Patient is laying in bed and answers questions appropriately Mentation: Patient is alert and oriented 4, Head: Normocephalic atraumatic Eyes: EOMI, pupils reactive to light Neck: Supple, nontender, midline Respiratory: Clear to auscultation bilaterally Cardiovascular: regular rate, no obvious murmurs Gastrointestinal: non-tender to palpation, bowel sounds heard. Neurological: Moves all extremities spontaneously Skin: Surgical site bandaged, CDI ASSESSMENT & PLAN This is a 63-year-old male with comorbidities including diabetes mellitus, left foot osteomyelitis, hypertension, obesity, chronic kidney disease, peripheral artery disease, and alcohol abuse. The patient came to the emergency room with chief complaint of abdominal pain, distension and occasional radiation of pain to the chest. He was noticed to have NSTEMI. 1. NSTEMI. -S/P LHC on 12/17/2018 that showed significant 3-vessel CAD. -S/P CABG x4, SVG to LAD, SVG to OM1 sequenced to OM2, SVG to PDA on 12/18/2018. -extubated 12/20/18 -doing well Mild fevers -Patient a symptom medic -Asked infectious disease to repeat patient evaluation -IV antibiotic -Cultures -UA 2. Acute respiratory failure. -Resolving significantly, on nasal cannula -Continue supplemental O2. -Continue inhaled bronchodilators. -Intubated status post CABG on 12/18/2018. -Weaning off ventilator as per pulmonary. 3. Fluid overload. -Etiology could be multifactorial. -2D echocardiogram showing preserved LVEF. -Known history of significant proteinuria, suggesting nephrotic syndrome. -Diuretics as clinically indicated. 4. Diabetes mellitus type 2. -Hemoglobin A1c 10.7. -Currently on insulin drip. 5. Peripheral artery disease. -Status post left tibioperoneal trunk balloon angioplasty, left femoral popliteal artery stenting, and left femoral popliteal artery balloon angioplasty on 03/22/2017. -Continue antiplatelet therapy as per bobbin coil winder 6. Hypertension. -Continue antihypertensives. 7. Pulmonary hypertension. -PA systolic pressure of 52 mm Hg. 8. E. coli ESBL in urine wound 12/18/2018. -Reading count <10,000 CFU per mL. -Started on carbapenems. -Repeat urine studies negative. -Carbapenem has been discontinued. -S/P ID evaluation. 9. Obesity. -BMI 31.5 kg/m -Weight reduction advised. 10. Normocytic, normochromic anemia. -Monitor H&H closely. 11. Alcohol abuse. -Continue multivitamins. 12. Generalized anxiety. -PRN benzodiazepines. 13. ANGEL. -Monitor BUN and creatinine closely. -Use nephrotoxic drugs with caution. -Nephrology on board. 14. Fluids, electrolytes, and nutrition. -N.p.o. 15. DVT prophylaxis. -B/L SCDs 16. Plan. -Mild fevers, infectious disease will reevaluate patient -Continue ICU monitoring. RENU WHITE December 21, 2018 09:13
--- NOTE | 2018-12-21 09:48 | PN ---
Date/Time of Note Date/Time of Note DATE: 12/21/18 TIME: 09:44 Assessment/Plan Lines/Catheters IV Catheter Type (from Nrsg): Johnson in Place (from Nrsg): No Assessment/Plan Assessment/Plan s/p cabg diuresing k 3.8 creatinine 1.6 d/c chest tube johnson 1 more day to monitor u/o transfer telemetry replete kcl Subjective 24 Hr Interval Summary Constitutional: BM, urine output Feeding: advancing diet Pain Control: moderate Exam/Review of Systems Vital Signs Vitals Vital Signs Date Temp Pulse Resp B/P (MAP) Pulse Ox O2 O2 Flow FiO2 Time Delivery Rate 12/21/18 85 08:00 12/21/18 20 136/71 96 Nasal 06:00 (92) Cannula 12/21/18 4.0 04:00 12/21/18 99.8 04:00 12/20/18 40 09:30 Intake and Output 12/20/18 12/20/18 12/21/18 1515:00 23:00 07:00 IntakeIntake Total 492.0 ml 735 ml OutputOutput Total 1149 ml 1400 ml 405 ml BalanceBalance -657.0 ml -665 ml -405 ml Exam Constitutional: alert, well developed Psych: nl mood/affect Head: atraumatic ENMT: nl external ears & nose Neck: supple Respiratory: other (oxygen 2 liters n/c) Cardiovascular: regular rate and rhythm, other (vac inplace) Genitourinary - Male: other (johnson) Musculoskeletal: nl extremities to inspection Neurological: nl mental status Skin: nl turgor Results Result Diagram: 12/21/18 04412/21/18 044 SUELLEN ALONSO MD December 21, 2018 09:48
[2018-12-21] MEDS ORDERED: POTASSIUM CHLORIDE (SR) 20 MEQ TAB PO STA (09:57)
[2018-12-21] MEDS: HYDROmorphONE 0.5 MG/0.5 ML SYG IV PRN ×2 (10:09→18:13)
--- NOTE | 2018-12-21 10:55 | CONS ---
Consult Date/Type/Reason Admit Date/Time Dec 15, 2018 at 16:16 Initial Consult Date 12/19/18 Type of Consultation: Pulm/CCM Requesting Provider: JUAN M VENEGAS Date/Time of Note DATE: 12/21/18 TIME: 10:51 Subjective No overnight events. Tolerating NC. Objective Vitals Vital Signs Date Temp Pulse Resp B/P (MAP) Pulse Ox O2 O2 Flow FiO2 Time Delivery Rate 12/21/18 77 22 116/59 95 Nasal 10:00 (78) Cannula 12/21/18 4.0 08:00 12/21/18 99.1 08:00 12/20/18 40 09:30 Intake and Output 12/20/18 12/20/18 12/21/18 1515:00 23:00 07:00 IntakeIntake Total 492.0 ml 735 ml OutputOutput Total 1149 ml 1400 ml 530 ml BalanceBalance -657.0 ml -665 ml -530 ml Exam HEENT: Neck supple; no JVD; no LAD CVS: RRR, S1 and S2 CHEST: Clear ABD: Soft, NT, + BS EXT: No c/c; + tr edema Results/Medications Result Diagram: 12/21/18 0441 12/21/18 0441 Results 24 hrs Laboratory Tests Test 12/20/18 11:52 12/20/18 13:22 12/20/18 17:07 12/20/18 20:43 Bedside Glucose 143 153 133 85 Test 12/21/18 04:41 12/21/18 08:00 White Blood Count 18.6 #H Red Blood Count 2.87 L Hemoglobin 8.7 L Hematocrit 27.5 L Mean Corpuscular Volume 95.8 Mean Corpuscular 30.3 Hemoglobin Mean Corpuscular 31.6 L Hemoglobin Concent Red Cell Distribution 14.8 H Width Platelet Count 416 #H Mean Platelet Volume 10.1 Immature Granulocytes % 0.700 H Neutrophils % 82.1 H Lymphocytes % 8.5 L Monocytes % 7.0 Eosinophils % 1.1 Basophils % 0.6 Nucleated Red Blood 0.0 Cells % Immature Granulocytes # 0.130 H Neutrophils # 15.2 H Lymphocytes # 1.6 Monocytes # 1.3 H Eosinophils # 0.2 Basophils # 0.1 Nucleated Red Blood 0.0 Cells # Sodium Level 146 H Potassium Level 3.8 Chloride Level 113 H Carbon Dioxide Level 25 Anion Gap 8 Blood Urea Nitrogen 24 H Creatinine 1.61 H Est Glomerular Filtrat 44 L Rate mL/min Glucose Level 113 Calcium Level 8.7 Phosphorus Level 4.1 # Magnesium Level 2.6 H Bedside Glucose 165 Home Meds Active Scripts Gabapentin* (Gabapentin*) 300 Mg Capsule, 300 MG PO TID, #90 CAP Prov:RADHA ROTHMAN 12/11/18 Ciprofloxacin Hcl* (Ciprofloxacin Hcl*) 250 Mg Tablet, 250 MG PO BID for 3 Days, #6 TAB Prov:RADHA ROTHMAN 12/11/18 Furosemide* (Furosemide*) 20 Mg Tablet, 20 MG PO DAILY for 3 Days, #3 TAB Prov:FOX JAVED 09/02/18 Omeprazole* (Omeprazole*) 20 Mg Capsule., 20 MG PO DAILY, #30 CAP Prov:RENU WHITE 08/22/18 Levofloxacin* (Levaquin*) 500 Mg Tablet, 500 MG PO DAILY for 5 Days, #5 TAB Prov:RENU WHITE 08/22/18 Salmeterol Xinaf/Fluticasone* (Advair*) 250-50 Diskus Inhaler, 1 INH INH BID for 30 Days Prov:SANAZ DAVIS MD 04/15/17 Aspirin* (Aspirin* EC) 81 Mg Tablet., 81 MG PO DAILY for 30 Days Prov:SANAZ DAVIS MD 04/15/17 Atorvastatin* (Atorvastatin*) 40 Mg Tablet, 40 MG PO HS for 30 Days, TAB Prov:SANAZ DAVIS MD 04/15/17 Clopidogrel Bisulfate (Clopidogrel) 75 Mg Tablet, 75 MG PO DAILY for 30 Days, TAB Prov:SANAZ DAVIS MD 04/15/17 Amlodipine Besylate* (Norvasc*) 5 Mg Tablet, 2.5 MG PO DAILY for 30 Days, TAB Prov:SANAZ DAVIS MD 04/15/17 Insulin Aspart* (Novolog Insulin Pen*) 100 Unit/Ml Soln, 15 UNIT SC WITH MEALS for 30 Days, #1 SYR Prov:BRANDON HERRERA NP 03/23/17 Metformin Hcl (Glucophage) 500 Mg Tablet, 1000 MG PO BID WITH MEALS for 30 Days, #60 TAB Prov:BRANDON HERRERA V. DIAGNOSTIC TECHNICIAN 03/23/17 Linagliptin (TRADJENTA) 5 Mg Tablet, 5 MG PO DAILY for 30 Days, #30 TAB Prov:BRANDON HERRERA V. DIAGNOSTIC TECHNICIAN 03/23/17 Insulin Glargine* (Lantus*) 100 Unit/Ml Soln, 45 UNIT SC HS for 30 Days, #1 SYR Prov:BRANDON HERRERA V. DIAGNOSTIC TECHNICIAN 03/23/17 Reported Medications Ergocalciferol (Vitamin D2) (VITAMIN D2) 2,000 Unit Tablet, 2000 UNIT PO DAILY, TAB 03/15/17 Medications Current Medications Levalbuterol (Xopenex Neb) 1.25 mg Q4H RESP THERAPY PRN HHN sob Last administered on 12/18/18at 08:41; Admin Dose 1.25 MG; Start 12/16/18 at 02:00 Miscellaneous Information (* Miscellaneous Pharmacy Order) Treatment of Hypoglycemia: 1.BG 51... Per protocol XX ; Start 12/18/18 at 20:30 Dextrose (D50w Syringe) 25 ml Q15M PRN IV .DECREASED GLUCOSE; Start 12/18/18 at 20:30 Dextrose (D50w Syringe) 50 ml Q15M PRN IV .DECREASED GLUCOSE; Start 12/18/18 at 20:30 Albumin Human 250 ml @ 500 mls/hr PRN PRN IV CVP< 8, OR SBP<90 Last administered on 12/19/18at 15:54; Admin Dose 500 MLS/HR; Start 12/18/18 at 20:30 Hydromorphone HCl (Dilaudid) 0.2 mg Q15M PRN IV PAIN LEVEL 1-5; Start 12/18/18 at 20:30 Hydromorphone HCl (Dilaudid) 0.4 mg Q15M PRN IV PAIN LEVEL 6-10 Last administered on 12/21/18at 10:09; Admin Dose 0.4 MG; Start 12/18/18 at 20:30 Oxycodone/ Acetaminophen (Percocet (5/ 325)) 1 tab Q3H PRN PO PAIN LEVEL 1-5 Last administered on 12/20/18at 20:41; Admin Dose 1 TAB; Start 12/18/18 at 20:30 Oxycodone/ Acetaminophen (Percocet (5/ 325)) 2 tab Q3H PRN PO PAIN LEVEL 6-10; Start 12/18/18 at 20:30 Ondansetron HCl (Zofran Inj) 4 mg Q6H PRN IV NAUSEA AND/OR VOMITING; Start 12/18/18 at 20:30 Famotidine (Pepcid Iv) 20 mg BID@08,20 IV Last administered on 12/21/18 08:14; Admin Dose 20 MG; Start 12/19/18 at 08:00 Famotidine (Pepcid) 20 mg BID PO ; Start 12/18/18 at 21:00; Status Hold Acetaminophen (Tylenol Tab) 650 mg Q3H PRN PO ELEVATED TEMPERATURE Last administered on 12/19/18 14:57; Admin Dose 650 MG; Start 12/18/18 at 20:30 Potassium Chloride 50 ml @ 50 mls/hr SEE DIRECTION PRN IVPB K+ LEVEL Last administered on 12/20/18 09:53; Admin Dose 50 MLS/HR; Start 12/18/18 at 20:30 Magnesium Sulfate/ Dextrose 100 ml @ 100 mls/hr PRN PRN IVPB PENDING LAB VALUE; Start 12/18/18 at 20:30 Enoxaparin Sodium (Lovenox) 40 mg BID SC Last administered on 12/21/18 08:06; Admin Dose 40 MG; Start 12/18/18 at 21:00 Atorvastatin Calcium (Lipitor) 80 mg HS PO Last administered on 12/20/18 20:40; Admin Dose 80 MG; Start 12/18/18 at 21:00 Miscellaneous Information (* Miscellaneous Pharmacy Order) Treatment of Hypoglycemia: 1.BG 51... Per protocol XX ; Start 12/18/18 at 21:00 Dextrose (D50w Syringe) 25 ml Q15M PRN IV .DECREASED GLUCOSE; Start 12/18/18 at 21:00 Dextrose (D50w Syringe) 50 ml Q15M PRN IV .DECREASED GLUCOSE; Start 12/18/18 at 21:00 Aspirin (Aspirin) 325 mg DAILY PO Last administered on 12/21/18 08:04; Admin Dose 325 MG; Start 12/19/18 at 09:00 Acetaminophen (Tylenol Liquid) 650 mg Q4H PRN NGT MILD PAIN(1-3)OR ELEVATED TEMP Last administered on 5/3/19at 06:00; Admin Dose 650 MG; Start 12/20/18 at 06:00 Phenylephrine HCl 80 mg/Dextrose 250 ml @ 18.75 mls/ hr TITRATE IV ; Start 12/20/18 at 11:30 Lorazepam (Ativan) 2 mg Q6H PRN IV Anxiety; Start 12/20/18 at 11:30 Hydralazine HCl (Apresoline) 10 mg Q6H PRN IV SBP>160; Start 12/20/18 at 11:30 Insulin Glargine (Lantus) 26 units DAILY@0800 SC Last administered on 12/21/18at 08:07; Admin Dose 26 UNITS; Start 12/21/18 at 08:00 Insulin Aspart (Novolog Insulin Pen) 9 unit WITH MEALS SC Last administered on 12/21/18at 08:08; Admin Dose 9 UNIT; Start 12/20/18 at 13:00 Insulin Aspart (Novolog Insulin Pen) NOVOLOG *MILD* ALGORITHM WITH MEALS BEDTIME SC Last administered on 12/21/18at 08:09; Admin Dose 1 UNIT; Start 12/20/18 at 13:00 Furosemide (Lasix) 40 mg BID DIURETICS IV Last administered on 12/21/18at 06:02; Admin Dose 40 MG; Start 12/20/18 at 18:00 Metoprolol Tartrate (Lopressor) 50 mg BID PO Last administered on 12/21/18at 08:04; Admin Dose 50 MG; Start 12/20/18 at 14:30 Piperacillin Sod/ Tazobactam Sod 100 ml @ 200 mls/hr Q6 IVPB ; Start 12/21/18 at 12:00 Assessment/Plan Assessment/Plan (Daily) IMP: 1. s/p Respiratory Failure 2. s/p CABG 3. NSTEMI 4. ANGEL 5. Anemia 6. Leukocytosis/low grade fevers/possible pna RECS: 1. Mobilize OOB 2. ICS 3. Continue abx 4. Sputum GS/Cx 5. PT/OT 35 min cc time VU CALL MD December 21, 2018 10:55
[2018-12-21] MEDS: PIPER-TAZO 3.375 GM IV (PMX) 100 ML IVPB SCH ×3 (12:06→23:27)
[2018-12-21] MEDS: ATORVASTATIN 80 MG TAB PO SCH (20:10)
[2018-12-21] MEDS: ACETAMINOPHEN 325 MG TAB PO PRN (20:11)
[2018-12-22] VITALS (11 sets, daily range): BP systolic 111–147; BP diastolic 54–67; PULSE 67–77; RESP 18–20
[2018-12-22] MEDS: HYDROmorphONE 0.5 MG/0.5 ML SYG IV PRN ×2 (02:06→11:19)
[2018-12-22] MEDS: PIPER-TAZO 3.375 GM IV (PMX) 100 ML IVPB SCH ×4 (05:29→23:33)
[2018-12-22] MEDS: FUROSEMIDE 40 MG INJ IV SCH ×2 (05:30→17:11)
--- NOTE | 2018-12-22 07:20 | CONS ---
Assessment/Plan Assessment/Plan Hospital Course (Demo Recall) 1) CAD with NSTEMI pt to get bypass surgery later today WBC is WNL and blood cx are neg pt to get merrem prior to surgery due to e.coli in urine ok for surgery from ID perspective 12/22 - s/p surgery CABG on 12/18 CT was removed but left with wound vac at anterior chest surgical site 2)?UTI pt has a reason for polyuria due to his DM not in control he denies dysuria his u/a here is neg likely the e.coli in urine is colonization but since he is getting a johnson for his surgery today I agree with starting the meropenem prior to surgery repeat u/a and if again no significant wbc, rbc then will d/c merrem later 12/19 - repeat u/a was negative merrem has been stopped, no active UTI I will sign off on case, no active infection appreciated 12/22 - another repeat u/a shows mild hematuria and due to fevers zosyn was started on 12/21 3) DM 4) EtOH abuse no alcohol for one week so far and no seizures pt had remote hx of alcohol induced seizures merrem is minimally associated with seizures but he is far enough away from alcohol withdrawal seizures that it should be ok 5) HTN 6) persistent low grade fevers 12/22 - the consistent fevers is typical for bacterial infections but more c/w some systemic allergy or drug fever no increase in eosinophils is seen though and no rash CXR showed R josie-hilar fullness but procalcitonin was neg (very mild elevation likely from recent chest surgery) continue with zosyn at present repeat procalcitonin in a.m. repeat u/a with urine cx stool cx were sent but unclear if he has actual diarrhea Consultation Date/Type/Reason Admit Date/Time Dec 15, 2018 at 16:16 Initial Consult Date 12/19/18 Type of Consult ID Requesting Provider: JUAN M VENEGAS Date/Time of Note DATE: 12/22/18 TIME: 07:09 24 HR Interval Summary Free Text/Dictation pt tx out of ICU ID asked to see pt again due to fevers no N, V pt had 3 bm's overnight, quality is unknown has CP at site of incision and wound vac tube has cough of clear phleg Exam/Review of Systems Exam Vitals Vital Signs Date Temp Pulse Resp B/P (MAP) Pulse Ox O2 O2 Flow FiO2 Time Delivery Rate 12/22/18 67 04:50 12/22/18 98.5 20 126/66 95 03:59 (86) 12/21/18 4.0 23:43 12/21/18 Nasal 22:18 Cannula 12/20/18 40 09:30 Intake and Output 12/21/18 12/21/18 12/22/18 1515:00 23:00 07:00 IntakeIntake Total 940 ml 240 ml OutputOutput Total 1140 ml 200 ml BalanceBalance -200 ml 40 ml Constitutional: alert, oriented Eyes: nl sclera ENMT: mucosa pink and moist Respiratory: clear to auscultation Cardiovascular: regular rate and rhythm, other (chest site of surgery is bandaged but no surrounding redness) Gastrointestinal: soft, non-tender Results Result Diagram: 12/22/18 0548 12/22/18 0548 Results 24hrs Laboratory Tests Test 12/21/18 08:00 12/21/18 09:55 12/21/18 10:15 12/21/18 12:05 Bedside Glucose 165 196 Procalcitonin 0.25 H Urine Color YELLOW Urine Clarity CLEAR Urine pH 5.0 Urine Specific [place] 1.013 Urine Ketones 1+ H Urine Nitrite NEGATIVE Urine Bilirubin NEGATIVE Urine Urobilinogen NEGATIVE Urine Leukocyte Esterase NEGATIVE Urine Microscopic RBC 11 H Urine Microscopic WBC 1 Urine Mucus FEW A Urine Hemoglobin 2+ H Urine Glucose 1+ H Urine Total Protein 2+ H Test 12/21/18 17:58 12/21/18 20:13 12/22/18 04:40 12/22/18 05:48 Bedside Glucose 264 H 277 H 223 H White Blood Count 14.4 #H Red Blood Count 2.98 L Hemoglobin 9.0 L Hematocrit 28.4 L Mean Corpuscular Volume 95.3 Mean Corpuscular 30.2 Hemoglobin Mean Corpuscular 31.7 L Hemoglobin Concent Red Cell Distribution 14.3 Width Platelet Count 495 H Mean Platelet Volume 9.9 Immature Granulocytes % 0.800 H Neutrophils % 75.8 Lymphocytes % 12.8 L Monocytes % 6.8 Eosinophils % 3.0 Basophils % 0.8 Nucleated Red Blood 0.0 Cells % Immature Granulocytes # 0.120 H Neutrophils # 10.9 H Lymphocytes # 1.8 Monocytes # 1.0 H Eosinophils # 0.4 Basophils # 0.1 Nucleated Red Blood 0.0 Cells # Sodium Level 139 Potassium Level 3.6 Chloride Level 106 Carbon Dioxide Level 26 Anion Gap 7 Blood Urea Nitrogen 23 H Creatinine 1.44 H Est Glomerular Filtrat 50 L Rate mL/min Glucose Level 266 #H Calcium Level 7.9 L Phosphorus Level 3.4 Magnesium Level 2.1 Medications Medication Current Medications Levalbuterol (Xopenex Neb) 1.25 mg Q4H RESP THERAPY PRN HHN sob Last administered on 12/18/18at 08:41; Admin Dose 1.25 MG; Start 12/16/18 at 02:00 Miscellaneous Information (* Miscellaneous Pharmacy Order) Treatment of Hypoglycemia: 1.BG 51... Per protocol XX ; Start 12/18/18 at 20:30 Dextrose (D50w Syringe) 25 ml Q15M PRN IV .DECREASED GLUCOSE; Start 12/18/18 at 20:30 Dextrose (D50w Syringe) 50 ml Q15M PRN IV .DECREASED GLUCOSE; Start 12/18/18 at 20:30 Albumin Human 250 ml @ 500 mls/hr PRN PRN IV CVP< 8, OR SBP<90 Last administered on 12/19/18at 15:54; Admin Dose 500 MLS/HR; Start 12/18/18 at 20:30 Hydromorphone HCl (Dilaudid) 0.2 mg Q15M PRN IV PAIN LEVEL 1-5 Last administered on 12/21/18at 20:32; Admin Dose 0.2 MG; Start 12/18/18 at 20:30 Hydromorphone HCl (Dilaudid) 0.4 mg Q15M PRN IV PAIN LEVEL 6-10 Last administered on 12/22/18at 02:06; Admin Dose 0.4 MG; Start 12/18/18 at 20:30 Oxycodone/ Acetaminophen (Percocet (5/ 325)) 1 tab Q3H PRN PO PAIN LEVEL 1-5 Last administered on 12/20/18at 20:41; Admin Dose 1 TAB; Start 12/18/18 at 20:30 Oxycodone/ Acetaminophen (Percocet (5/ 325)) 2 tab Q3H PRN PO PAIN LEVEL 6-10; Start 12/18/18 at 20:30 Ondansetron HCl (Zofran Inj) 4 mg Q6H PRN IV NAUSEA AND/OR VOMITING; Start 12/18/18 at 20:30 Famotidine (Pepcid Iv) 20 mg BID@08,20 IV Last administered on 12/21/18 20:11; Admin Dose 20 MG; Start 12/19/18 at 08:00 Famotidine (Pepcid) 20 mg BID PO ; Start 12/18/18 at 21:00; Status Hold Acetaminophen (Tylenol Tab) 650 mg Q3H PRN PO ELEVATED TEMPERATURE Last administered on 12/21/18 20:11; Admin Dose 650 MG; Start 12/18/18 at 20:30 Potassium Chloride 50 ml @ 50 mls/hr SEE DIRECTION PRN IVPB K+ LEVEL Last administered on 12/20/18 09:53; Admin Dose 50 MLS/HR; Start 12/18/18 at 20:30 Magnesium Sulfate/ Dextrose 100 ml @ 100 mls/hr PRN PRN IVPB PENDING LAB VALUE; Start 12/18/18 at 20:30 Enoxaparin Sodium (Lovenox) 40 mg BID SC Last administered on 12/21/18at 20:48; Admin Dose 40 MG; Start 12/18/18 at 21:00 Atorvastatin Calcium (Lipitor) 80 mg HS PO Last administered on 12/21/18 20:10; Admin Dose 80 MG; Start 12/18/18 at 21:00 Miscellaneous Information (* Miscellaneous Pharmacy Order) Treatment of Hypoglycemia: 1.BG 51... Per protocol XX ; Start 12/18/18 at 21:00 Dextrose (D50w Syringe) 25 ml Q15M PRN IV .DECREASED GLUCOSE; Start 12/18/18 at 21:00 Dextrose (D50w Syringe) 50 ml Q15M PRN IV .DECREASED GLUCOSE; Start 12/18/18 at 21:00 Aspirin (Aspirin) 325 mg DAILY PO Last administered on 12/21/18 08:04; Admin Dose 325 MG; Start 12/19/18 at 09:00 Acetaminophen (Tylenol Liquid) 650 mg Q4H PRN NGT MILD PAIN(1-3)OR ELEVATED TEMP Last administered on 12/20/18 06:00; Admin Dose 650 MG; Start 12/20/18 at 06:00 Phenylephrine HCl 80 mg/Dextrose 250 ml @ 18.75 mls/ hr TITRATE IV ; Start 12/20/18 at 11:30 Lorazepam (Ativan) 2 mg Q6H PRN IV Anxiety; Start 12/20/18 at 11:30 Hydralazine HCl (Apresoline) 10 mg Q6H PRN IV SBP>160; Start 12/20/18 at 11:30 Insulin Glargine (Lantus) 26 units DAILY@0800 SC Last administered on 12/21/18 08:07; Admin Dose 26 UNITS; Start 12/21/18 at 08:00 Insulin Aspart (Novolog Insulin Pen) 9 unit WITH MEALS SC Last administered on 12/21/18 18:08; Admin Dose 9 UNIT; Start 12/20/18 at 13:00 Insulin Aspart (Novolog Insulin Pen) NOVOLOG *MILD* ALGORITHM WITH MEALS BEDTIME SC Last administered on 12/21/18 20:48; Admin Dose 3 UNIT; Start 12/20/18 at 13:00 Furosemide (Lasix) 40 mg BID DIURETICS IV Last administered on 12/22/18 05:30; Admin Dose 40 MG; Start 12/20/18 at 18:00 Metoprolol Tartrate (Lopressor) 50 mg BID PO Last administered on 12/21/18 20:11; Admin Dose 50 MG; Start 12/20/18 at 14:30 Piperacillin Sod/ Tazobactam Sod 100 ml @ 200 mls/hr Q6 IVPB Last administered on 12/22/18 05:29; Admin Dose 200 MLS/HR; Start 12/21/18 at 12:00 GIULIANA MELENDEZ MD December 22, 2018 07:20
[2018-12-22] MEDS: INSULIN ASPART [NOVOLOG] 3 ML PEN SC SCH ×7 (07:42→21:15)
[2018-12-22] MEDS: INSULIN GLARGINE [LANTus] (100 UNITS/ML) SYG SC SCH (07:42)
--- NOTE | 2018-12-22 08:18 | PN ---
Date/Time of Note Date/Time of Note DATE: 12/22/18 TIME: 08:18 Assessment/Plan Lines/Catheters IV Catheter Type (from Nrsg): Saline Lock Johnson in Place (from Nrsg): Yes Assessment/Plan Assessment/Plan doing well. lags ok, creat back to baseline. remove pacing wires. increase activity. remove johnson Exam/Review of Systems Vital Signs Vitals Vital Signs Date Temp Pulse Resp B/P (MAP) Pulse Ox O2 O2 Flow FiO2 Time Delivery Rate 12/22/18 74 08:13 12/22/18 98.9 18 147/67 95 Nasal 07:20 (93) Cannula 12/21/18 4.0 23:43 12/20/18 40 09:30 Intake and Output 12/21/18 12/21/18 12/22/18 1515:00 23:00 07:00 IntakeIntake Total 940 ml 240 ml OutputOutput Total 1140 ml 200 ml BalanceBalance -200 ml 40 ml Results Result Diagram: 12/22/18 0548 12/22/18 0548 LIDIA GOINS MD December 22, 2018 08:18
[2018-12-22] MEDS: ASPIRIN 325 MG TAB PO SCH (08:49)
[2018-12-22] MEDS: FAMOTIDINE 20 MG INJ IV SCH (08:50)
[2018-12-22] MEDS: BALSAM PERU/CASTOR OIL 60 GM TUBE TOP SCH ×2 (08:50→20:43)
[2018-12-22] MEDS: METOPROLOL 50 MG TAB PO SCH ×2 (08:50→20:44)
[2018-12-22] MEDS: OXYCODONE/ACETAMINOPHEN (5/325) TAB PO PRN ×2 (08:58→20:59)
[2018-12-22] MEDS: ENOXAPARIN 40 MG/0.4 ML SYG SC SCH ×2 (09:00→21:15)
--- NOTE | 2018-12-22 11:30 | CONS ---
Assessment/Plan Assessment/Plan Hospital Course (Demo Recall) 1. Nonoliguric acute kidney injury with previous baseline creatinine 1.1 to 1.2 mg/dL. Etiology of ANGEL is likely multifactorial secondary to tubular injury due to hemodynamics, CABG, nephrotoxicity, contrast exposure. renal function improving. We will recommend to monitor renal function closely on diuretic therapy, consider deescalation of diuretic therapy in order to enable fluid to mobilize. We will otherwise continue current treatment plans, supportive care, renally dose all medication. 2. Anemia. Continue to monitor H and H levels. 3. Hypernatremia. improved with free water 4. Mineral bone disorder. Monitor calcium and phosphorus levels. 5. Ventilator-dependent respiratory failure. Vent settings and ABG was reviewed. Continue to monitor. 6. Acute diastolic heart failure. The patient remains decompensated. Continue diuretic therapy as stated above, deescalate in order to enable fluid to mobilize. Monitor renal function and electrolytes closely. 7. Coronary artery disease, status post 4-vessel CABG. Continue current medical management. 8. Non-STEMI. Continue current treatment plan. 9. Peripheral arterial disease. Continue current treatment plan. 10. Diabetes. Continue current insulin management. 11. Hypertension. Continue blood pressure regimen. 12. Dyslipidemia. Continue statin therapy. 13. History of ETOH abuse, currently stable. No signs of cirrhosis. 14. fever: on abx for possible PNA and uti. f/u cx. ID following Consultation Date/Type/Reason Admit Date/Time Dec 15, 2018 at 16:16 Initial Consult Date 12/19/18 Requesting Provider: JUAN M VENEGAS Date/Time of Note DATE: 12/22/18 TIME: 11:26 24 HR Interval Summary Free Text/Dictation +fever denies shortness of breath, n/v d/w rn gen nad cv rrr pulm fine bibasilar rales abd soft, nd, nt +bs ext: no edema Exam/Review of Systems Exam Vitals Vital Signs Date Temp Pulse Resp B/P (MAP) Pulse Ox O2 O2 Flow FiO2 Time Delivery Rate 12/22/18 98.2 68 18 127/60 94 Nasal 11:17 (82) Cannula 12/22/18 4.0 08:20 12/20/18 40 09:30 Intake and Output 12/21/18 12/21/18 12/22/18 1515:00 23:00 07:00 IntakeIntake Total 940 ml 240 ml OutputOutput Total 1140 ml 200 ml BalanceBalance -200 ml 40 ml Results Result Diagram: 12/22/18 0548 12/22/18 0548 Results 24hrs Laboratory Tests Test 12/21/18 12:05 12/21/18 17:58 12/21/18 20:13 12/22/18 04:40 Bedside Glucose 196 264 H 277 H 223 H Test 12/22/18 05:48 12/22/18 07:25 12/22/18 11:23 White Blood Count 14.4 #H Red Blood Count 2.98 L Hemoglobin 9.0 L Hematocrit 28.4 L Mean Corpuscular Volume 95.3 Mean Corpuscular 30.2 Hemoglobin Mean Corpuscular 31.7 L Hemoglobin Concent Red Cell Distribution 14.3 Width Platelet Count 495 H Mean Platelet Volume 9.9 Immature Granulocytes % 0.800 H Neutrophils % 75.8 Lymphocytes % 12.8 L Monocytes % 6.8 Eosinophils % 3.0 Basophils % 0.8 Nucleated Red Blood 0.0 Cells % Immature Granulocytes # 0.120 H Neutrophils # 10.9 H Lymphocytes # 1.8 Monocytes # 1.0 H Eosinophils # 0.4 Basophils # 0.1 Nucleated Red Blood 0.0 Cells # Sodium Level 139 Potassium Level 3.6 Chloride Level 106 Carbon Dioxide Level 26 Anion Gap 7 Blood Urea Nitrogen 23 H Creatinine 1.44 H Est Glomerular Filtrat 50 L Rate mL/min Glucose Level 266 #H Calcium Level 7.9 L Phosphorus Level 3.4 Magnesium Level 2.1 Bedside Glucose 358 H 290 H Medications Medication Current Medications Levalbuterol (Xopenex Neb) 1.25 mg Q4H RESP THERAPY PRN HHN sob Last administered on 12/18/18at 08:41; Admin Dose 1.25 MG; Start 12/16/18 at 02:00 Miscellaneous Information (* Miscellaneous Pharmacy Order) Treatment of Hypoglycemia: 1.BG 51... Per protocol XX ; Start 12/18/18 at 20:30 Dextrose (D50w Syringe) 25 ml Q15M PRN IV .DECREASED GLUCOSE; Start 12/18/18 at 20:30 Dextrose (D50w Syringe) 50 ml Q15M PRN IV .DECREASED GLUCOSE; Start 12/18/18 at 20:30 Albumin Human 250 ml @ 500 mls/hr PRN PRN IV CVP< 8, OR SBP<90 Last administered on 12/19/18 15:54; Admin Dose 500 MLS/HR; Start 12/18/18 at 20:30 Hydromorphone HCl (Dilaudid) 0.2 mg Q15M PRN IV PAIN LEVEL 1-5 Last administered on 12/21/18 20:32; Admin Dose 0.2 MG; Start 12/18/18 at 20:30 Hydromorphone HCl (Dilaudid) 0.4 mg Q15M PRN IV PAIN LEVEL 6-10 Last administered on 12/22/18 11:19; Admin Dose 0.4 MG; Start 12/18/18 at 20:30 Oxycodone/ Acetaminophen (Percocet (5/ 325)) 1 tab Q3H PRN PO PAIN LEVEL 1-5 Last administered on 12/20/18 20:41; Admin Dose 1 TAB; Start 12/18/18 at 20:30 Oxycodone/ Acetaminophen (Percocet (5/ 325)) 2 tab Q3H PRN PO PAIN LEVEL 6-10 Last administered on 12/22/18 08:58; Admin Dose 2 TAB; Start 12/18/18 at 20:30 Ondansetron HCl (Zofran Inj) 4 mg Q6H PRN IV NAUSEA AND/OR VOMITING; Start 12/18/18 at 20:30 Famotidine (Pepcid) 20 mg BID PO ; Start 12/18/18 at 21:00; Status Hold Acetaminophen (Tylenol Tab) 650 mg Q3H PRN PO ELEVATED TEMPERATURE Last administered on 12/21/18 20:11; Admin Dose 650 MG; Start 12/18/18 at 20:30 Potassium Chloride 50 ml @ 50 mls/hr SEE DIRECTION PRN IVPB K+ LEVEL Last administered on 12/20/18 09:53; Admin Dose 50 MLS/HR; Start 12/18/18 at 20:30 Magnesium Sulfate/ Dextrose 100 ml @ 100 mls/hr PRN PRN IVPB PENDING LAB VALUE; Start 12/18/18 at 20:30 Enoxaparin Sodium (Lovenox) 40 mg BID SC Last administered on 12/22/18 09:00; Admin Dose 40 MG; Start 12/18/18 at 21:00 Atorvastatin Calcium (Lipitor) 80 mg HS PO Last administered on 12/21/18at 20:10; Admin Dose 80 MG; Start 12/18/18 at 21:00 Miscellaneous Information (* Miscellaneous Pharmacy Order) Treatment of Hypoglycemia: 1.BG 51... Per protocol XX ; Start 12/18/18 at 21:00 Dextrose (D50w Syringe) 25 ml Q15M PRN IV .DECREASED GLUCOSE; Start 12/18/18 at 21:00 Dextrose (D50w Syringe) 50 ml Q15M PRN IV .DECREASED GLUCOSE; Start 12/18/18 at 21:00 Aspirin (Aspirin) 325 mg DAILY PO Last administered on 12/22/18at 08:49; Admin Dose 325 MG; Start 12/19/18 at 09:00 Acetaminophen (Tylenol Liquid) 650 mg Q4H PRN NGT MILD PAIN(1-3)OR ELEVATED TEMP Last administered on 12/20/18at 06:00; Admin Dose 650 MG; Start 12/20/18 at 06:00 Phenylephrine HCl 80 mg/Dextrose 250 ml @ 18.75 mls/ hr TITRATE IV ; Start 12/20/18 at 11:30 Lorazepam (Ativan) 2 mg Q6H PRN IV Anxiety; Start 12/20/18 at 11:30 Hydralazine HCl (Apresoline) 10 mg Q6H PRN IV SBP>160; Start 12/20/18 at 11:30 Insulin Glargine (Lantus) 26 units DAILY@0800 SC Last administered on 12/22/18 07:42; Admin Dose 26 UNITS; Start 12/21/18 at 08:00 Insulin Aspart (Novolog Insulin Pen) 9 unit WITH MEALS SC Last administered on 12/22/18 07:42; Admin Dose 9 UNIT; Start 12/20/18 at 13:00 Insulin Aspart (Novolog Insulin Pen) NOVOLOG *MILD* ALGORITHM WITH MEALS BEDTIME SC Last administered on 12/22/18 07:42; Admin Dose 7 UNIT; Start 12/20/18 at 13:00 Furosemide (Lasix) 40 mg BID DIURETICS IV Last administered on 12/22/18at 05:30; Admin Dose 40 MG; Start 12/20/18 at 18:00 Metoprolol Tartrate (Lopressor) 50 mg BID PO Last administered on 12/22/18at 08:50; Admin Dose 50 MG; Start 12/20/18 at 14:30 Piperacillin Sod/ Tazobactam Sod 100 ml @ 200 mls/hr Q6 IVPB Last administered on 12/22/18at 11:19; Admin Dose 200 MLS/HR; Start 12/21/18 at 12:00 BRYANT WHITE MD December 22, 2018 11:30
--- NOTE | 2018-12-22 11:54 | CONS ---
Assessment/Plan Assessment/Plan Assessment/Plan (Daily) Assessment/Plan Assessment/Plan Assessment/Plan (Daily) Acute diastolic CHF: EF 60%. Improving with diuresis but still decompensated on exam Acute respiratory failure: Intubated for CABG. Extubated 12/20 Acute renal failure: Cr slightly increased post-op. Likely ATN but also REYNA possible from cath. Stable with diuresis. Expected to improve CAD s/p CAB vessel SVG-LAD, SVG-OM1/OM2 (sequenced), SVG-PDA. DE ANDA not used as injured during prep. NSTEMI: Trop 1 and trended down. No active chest pain. Three vessel CAD on cath s/p CABG PAD s/p left leg balloon angioplasty and stenting 2016 DM HTN HL Alcohol abuse: no cirrhosis or bleeding. -decrease to lasix 40mg IV BID, deescalate of the weekend -ASA 325mg. Will consider decreasing to 81mg and adding plavix prior to d/c -lipitor 80mg -restart metoprolol 50mg BID continue present regimen check cxr doing well ct and out of icu per thoracic surgery lines out increase ambulation discussed with pt, nurse and family Consultation Date/Type/Reason Admit Date/Time Dec 15, 2018 at 16:16 Initial Consult Date 12/19/18 Type of Consult Cardiology Requesting Provider: JUAN M VENEGAS Date/Time of Note DATE: 12/22/18 TIME: 11:50 24 HR Interval Summary Free Text/Dictation no cp or sob chest tube and johnson out Exam/Review of Systems Vital Signs Vitals Vital Signs Date Temp Pulse Resp B/P (MAP) Pulse Ox O2 O2 Flow FiO2 Time Delivery Rate 12/22/18 98.2 68 18 127/60 94 Nasal 11:17 (82) Cannula 12/22/18 4.0 08:20 12/20/18 40 09:30 Intake and Output 12/21/18 12/21/18 12/22/18 1414:59 22:59 06:59 IntakeIntake Total 940 ml 240 ml OutputOutput Total 1265 ml 200 ml BalanceBalance -325 ml 40 ml Exam Exam onstitutional: alert Psych: no complaints, nl mood/affect Neck: jvd (9cm) Respiratory: crackles/rales, diminished breath sounds; No clear to auscultation Cardiovascular: regular rate and rhythm, edema (1+); improved gas exchange No systolic murmur Gastrointestinal: soft, non-tender; No distended Neurological: nl mental status, nl speech Labs Result Diagram: 12/22/18 0548 12/22/18 0548 Results 24hrs Laboratory Tests Test 12/21/18 12:05 12/21/18 17:58 12/21/18 20:13 12/22/18 04:40 Bedside Glucose 196 264 H 277 H 223 H Test 12/22/18 05:48 12/22/18 07:25 12/22/18 11:23 White Blood Count 14.4 #H Red Blood Count 2.98 L Hemoglobin 9.0 L Hematocrit 28.4 L Mean Corpuscular Volume 95.3 Mean Corpuscular 30.2 Hemoglobin Mean Corpuscular 31.7 L Hemoglobin Concent Red Cell Distribution 14.3 Width Platelet Count 495 H Mean Platelet Volume 9.9 Immature Granulocytes % 0.800 H Neutrophils % 75.8 Lymphocytes % 12.8 L Monocytes % 6.8 Eosinophils % 3.0 Basophils % 0.8 Nucleated Red Blood 0.0 Cells % Immature Granulocytes # 0.120 H Neutrophils # 10.9 H Lymphocytes # 1.8 Monocytes # 1.0 H Eosinophils # 0.4 Basophils # 0.1 Nucleated Red Blood 0.0 Cells # Sodium Level 139 Potassium Level 3.6 Chloride Level 106 Carbon Dioxide Level 26 Anion Gap 7 Blood Urea Nitrogen 23 H Creatinine 1.44 H Est Glomerular Filtrat 50 L Rate mL/min Glucose Level 266 #H Calcium Level 7.9 L Phosphorus Level 3.4 Magnesium Level 2.1 Bedside Glucose 358 H 290 H Medications Medications Current Medications Levalbuterol (Xopenex Neb) 1.25 mg Q4H RESP THERAPY PRN HHN sob Last administered on 12/18/18at 08:41; Admin Dose 1.25 MG; Start 12/16/18 at 02:00 Miscellaneous Information (* Miscellaneous Pharmacy Order) Treatment of Hypoglycemia: 1.BG 51... Per protocol XX ; Start 12/18/18 at 20:30 Dextrose (D50w Syringe) 25 ml Q15M PRN IV .DECREASED GLUCOSE; Start 12/18/18 at 20:30 Dextrose (D50w Syringe) 50 ml Q15M PRN IV .DECREASED GLUCOSE; Start 12/18/18 at 20:30 Albumin Human 250 ml @ 500 mls/hr PRN PRN IV CVP< 8, OR SBP<90 Last administered on 12/19/18 15:54; Admin Dose 500 MLS/HR; Start 12/18/18 at 20:30 Hydromorphone HCl (Dilaudid) 0.2 mg Q15M PRN IV PAIN LEVEL 1-5 Last administered on 12/21/18 20:32; Admin Dose 0.2 MG; Start 12/18/18 at 20:30 Hydromorphone HCl (Dilaudid) 0.4 mg Q15M PRN IV PAIN LEVEL 6-10 Last administered on 12/22/18 11:19; Admin Dose 0.4 MG; Start 12/18/18 at 20:30 Oxycodone/ Acetaminophen (Percocet (5/ 325)) 1 tab Q3H PRN PO PAIN LEVEL 1-5 Last administered on 12/20/18 20:41; Admin Dose 1 TAB; Start 12/18/18 at 20:30 Oxycodone/ Acetaminophen (Percocet (5/ 325)) 2 tab Q3H PRN PO PAIN LEVEL 6-10 Last administered on 12/22/18 08:58; Admin Dose 2 TAB; Start 12/18/18 at 20:30 Ondansetron HCl (Zofran Inj) 4 mg Q6H PRN IV NAUSEA AND/OR VOMITING; Start 12/18/18 at 20:30 Famotidine (Pepcid) 20 mg BID PO ; Start 12/18/18 at 21:00; Status Hold Acetaminophen (Tylenol Tab) 650 mg Q3H PRN PO ELEVATED TEMPERATURE Last administered on 12/21/18 20:11; Admin Dose 650 MG; Start 12/18/18 at 20:30 Potassium Chloride 50 ml @ 50 mls/hr SEE DIRECTION PRN IVPB K+ LEVEL Last administered on 12/20/18 09:53; Admin Dose 50 MLS/HR; Start 12/18/18 at 20:30 Magnesium Sulfate/ Dextrose 100 ml @ 100 mls/hr PRN PRN IVPB PENDING LAB VALUE; Start 12/18/18 at 20:30 Enoxaparin Sodium (Lovenox) 40 mg BID SC Last administered on 12/22/18 09:00; Admin Dose 40 MG; Start 12/18/18 at 21:00 Atorvastatin Calcium (Lipitor) 80 mg HS PO Last administered on 12/21/18at 20:10; Admin Dose 80 MG; Start 12/18/18 at 21:00 Miscellaneous Information (* Miscellaneous Pharmacy Order) Treatment of Hyp oglycemia: 1.BG 51... Per protocol XX ; Start 12/18/18 at 21:00 Dextrose (D50w Syringe) 25 ml Q15M PRN IV .DECREASED GLUCOSE; Start 12/18/18 at 21:00 Dextrose (D50w Syringe) 50 ml Q15M PRN IV .DECREASED GLUCOSE; Start 12/18/18 at 21:00 Aspirin (Aspirin) 325 mg DAILY PO Last administered on 12/22/18at 08:49; Admin Dose 325 MG; Start 12/19/18 at 09:00 Acetaminophen (Tylenol Liquid) 650 mg Q4H PRN NGT MILD PAIN(1-3)OR ELEVATED TEMP Last administered on 12/20/18at 06:00; Admin Dose 650 MG; Start 12/20/18 at 06:00 Phenylephrine HCl 80 mg/Dextrose 250 ml @ 18.75 mls/ hr TITRATE IV ; Start 12/20/18 at 11:30 Lorazepam (Ativan) 2 mg Q6H PRN IV Anxiety; Start 12/20/18 at 11:30 Hydralazine HCl (Apresoline) 10 mg Q6H PRN IV SBP>160; Start 12/20/18 at 11:30 Insulin Glargine (Lantus) 26 units DAILY@0800 SC Last administered on 12/22/18at 07:42; Admin Dose 26 UNITS; Start 12/21/18 at 08:00 Insulin Aspart (Novolog Insulin Pen) 9 unit WITH MEALS SC Last administered on 12/22/18 11:33; Admin Dose 9 UNIT; Start 12/20/18 at 13:00 Insulin Aspart (Novolog Insulin Pen) NOVOLOG *MILD* ALGORITHM WITH MEALS BEDTIM E SC Last administered on 12/22/18 11:33; Admin Dose 4 UNIT; Start 12/20/18 at 13:00 Furosemide (Lasix) 40 mg BID DIURETICS IV Last administered on 12/22/18 05:30; Admin Dose 40 MG; Start 12/20/18 at 18:00 Metoprolol Tartrate (Lopressor) 50 mg BID PO Last administered on 12/22/18at 08:50; Admin Dose 50 MG; Start 12/20/18 at 14:30 Piperacillin Sod/ Tazobactam Sod 100 ml @ 200 mls/hr Q6 IVPB Last administered on 12/22/18at 11:19; Admin Dose 200 MLS/HR; Start 12/21/18 at 12:00 GRACIELA LEROY MD December 22, 2018 11:54
[2018-12-22] MEDS: GABAPENTIN 300 MG CAP PO SCH ×2 (12:13→20:43)
--- NOTE | 2018-12-22 13:12 | PN ---
Date/Time of Note Date/Time of Note DATE: 12/22/18 TIME: 13:10 Objective Vitals Vital Signs Date Temp Pulse Resp B/P (MAP) Pulse Ox O2 O2 Flow FiO2 Time Delivery Rate 12/22/18 72 12:34 12/22/18 98.2 18 127/60 94 Nasal 11:17 (82) Cannula 12/22/18 4.0 08:20 12/20/18 40 09:30 Intake and Output 12/21/18 12/21/18 12/22/18 1515:00 23:00 07:00 IntakeIntake Total 940 ml 240 ml OutputOutput Total 1140 ml 200 ml BalanceBalance -200 ml 40 ml Results Result Diagram: 12/22/18 0548 12/22/1848 Medications Medications Current Medications Levalbuterol (Xopenex Neb) 1.25 mg Q4H RESP THERAPY PRN HHN sob Last administered on 12/18/18 08:41; Admin Dose 1.25 MG; Start 12/16/18 at 02:00 Albumin Human 250 ml @ 500 mls/hr PRN PRN IV CVP< 8, OR SBP<90 Last administered on 12/19/18 15:54; Admin Dose 500 MLS/HR; Start 12/18/18 at 20:30 Oxycodone/ Acetaminophen (Percocet (5/ 325)) 1 tab Q3H PRN PO PAIN LEVEL 1-5 Last administered on 12/20/18 20:41; Admin Dose 1 TAB; Start 12/18/18 at 20:30 Oxycodone/ Acetaminophen (Percocet (5/ 325)) 2 tab Q3H PRN PO PAIN LEVEL 6-10 Last administered on 12/22/18 08:58; Admin Dose 2 TAB; Start 12/18/18 at 20:30 Ondansetron HCl (Zofran Inj) 4 mg Q6H PRN IV NAUSEA AND/OR VOMITING; Start 12/18/18 at 20:30 Famotidine (Pepcid) 20 mg BID PO ; Start 12/18/18 at 21:00; Status Hold Acetaminophen (Tylenol Tab) 650 mg Q3H PRN PO ELEVATED TEMPERATURE Last administered on 12/21/18 20:11; Admin Dose 650 MG; Start 12/18/18 at 20:30 Potassium Chloride 50 ml @ 50 mls/hr SEE DIRECTION PRN IVPB K+ LEVEL Last administered on 12/20/18 09:53; Admin Dose 50 MLS/HR; Start 12/18/18 at 20:30 Magnesium Sulfate/ Dextrose 100 ml @ 100 mls/hr PRN PRN IVPB PENDING LAB VALUE; Start 12/18/18 at 20:30 Enoxaparin Sodium (Lovenox) 40 mg BID SC Last administered on 12/22/18 09:00; Admin Dose 40 MG; Start 12/18/18 at 21:00 Atorvastatin Calcium (Lipitor) 80 mg HS PO Last administered on 12/21/18 20:10; Admin Dose 80 MG; Start 12/18/18 at 21:00 Aspirin (Aspirin) 325 mg DAILY PO Last administered on 12/22/18 08:49; Admin Dose 325 MG; Start 12/19/18 at 09:00 Acetaminophen (Tylenol Liquid) 650 mg Q4H PRN NGT MILD PAIN(1-3)OR ELEVATED TEMP Last administered on 12/20/18 06:00; Admin Dose 650 MG; Start 12/20/18 at 06:00 Lorazepam (Ativan) 2 mg Q6H PRN IV Anxiety; Start 12/20/18 at 11:30 Hydralazine HCl (Apresoline) 10 mg Q6H PRN IV SBP>160; Start 12/20/18 at 11:30 Insulin Aspart (Novolog Insulin Pen) 9 unit WITH MEALS SC Last administered on 12/22/18 11:33; Admin Dose 9 UNIT; Start 12/20/18 at 13:00 Insulin Aspart (Novolog Insulin Pen) NOVOLOG *MILD* ALGORITHM WITH MEALS BEDTIME SC Last administered on 12/22/18 11:33; Admin Dose 4 UNIT; Start 12/20/18 at 13:00 Furosemide (Lasix) 40 mg BID DIURETICS IV Last administered on 12/22/18 05:30; Admin Dose 40 MG; Start 12/20/18 at 18:00 Metoprolol Tartrate (Lopressor) 50 mg BID PO Last administered on 12/22/18 08:50; Admin Dose 50 MG; Start 12/20/18 at 14:30 Piperacillin Sod/ Tazobactam Sod 100 ml @ 200 mls/hr Q6 IVPB Last administered on 5/5/19at 11:19; Admin Dose 200 MLS/HR; Start 12/21/18 at 12:00 Gabapentin (Neurontin) 300 mg TID PO Last administered on 12/22/18at 12:13; Admin Dose 300 MG; Start 12/22/18 at 13:00 Insulin Glargine (Lantus) 30 units DAILY@0800 SC ; Start 12/23/18 at 08:00 Insulin Aspart (Novolog Insulin Pen) 4 unit WITH MEALS SC ; Start 12/22/18 at 17:55 VTE Prophylaxis Risk score (from Ns)>0 risk: 13 SCD applied (from [facility] [place]): Yes Lines/Catheters IV Catheter Type: Hooks in Place: No Assessment/Plan Hospital Course Subjective Patient doing well, Hooks removed Objective Physical exam General: Patient is laying in bed and answers questions appropriately Mentation: Patient is alert and oriented 4, Head: Normocephalic atraumatic Eyes: EOMI, pupils reactive to light Neck: Supple, nontender, midline Respiratory: Clear to auscultation bilaterally Cardiovascular: regular rate, no obvious murmurs Gastrointestinal: non-tender to palpation, bowel sounds heard. Neurological: Moves all extremities spontaneously Skin: Surgical site bandaged, CDI ASSESSMENT & PLAN This is a 63-year-old male with comorbidities including diabetes mellitus, left foot osteomyelitis, hypertension, obesity, chronic kidney disease, peripheral artery disease, and alcohol abuse. The patient came to the emergency room with chief complaint of abdominal pain, distension and occasional radiation of pain to the chest. He was noticed to have NSTEMI. 1. NSTEMI. -S/P LHC on 12/17/2018 that showed significant 3-vessel CAD. -S/P CABG x4, SVG to LAD, SVG to OM1 sequenced to OM2, SVG to PDA on 12/18/2018. -extubated 12/20/18 -wound vac in place in chest -doing well Mild fevers, resolving -Patient asymptomatic -ID on board, Dr. Tsai -IV antibiotic -Cultures -UA neg 2. Acute respiratory failure. -Resolving significantly, on nasal cannula -Continue supplemental O2. -Continue inhaled bronchodilators. -resolving 3. Fluid overload. -Etiology could be multifactorial. -2D echocardiogram showing preserved LVEF. -Known history of significant proteinuria, suggesting nephrotic syndrome. -Diuretics as clinically indicated. 4. Diabetes mellitus type 2. -Hemoglobin A1c 10.7. -Currently on insulin drip. 5. Peripheral artery disease. -Status post left tibioperoneal trunk balloon angioplasty, left femoral popliteal artery stenting, and left femoral popliteal artery balloon angioplasty on 03/22/2017. -Continue antiplatelet therapy as per internet retailer 6. Hypertension. -Continue antihypertensives. 7. Pulmonary hypertension. -PA systolic pressure of 52 mm Hg. 8. E. coli ESBL in urine wound 12/18/2018. resolved -[place] count <10,000 CFU per mL. -completed course of carbapenams -Repeat urine studies negative. -S/P ID evaluation. 9. Obesity. -BMI 31.5 kg/m -Weight reduction advised. 10. Normocytic, normochromic anemia. -Monitor H&H closely. 11. Alcohol abuse. -Continue multivitamins. 12. Generalized anxiety. -PRN benzodiazepines. 13. ANGEL. -Monitor BUN and creatinine closely. -Use nephrotoxic drugs with caution. -Nephrology on board. 16. Plan. -Patient doing well, continue current medication and diuresis, convert from IV to p.o. medications soon. RENU WHITE December 22, 2018 13:12
--- NOTE | 2018-12-22 14:42 | CONS ---
Consult Date/Type/Reason Admit Date/Time Dec 15, 2018 at 16:16 Initial Consult Date 12/19/18 Type of Consultation: Pulm/CCM Requesting Provider: JUAN M VENEGAS Date/Time of Note DATE: 12/22/18 TIME: 14:40 Subjective No events. Still appears a bit volume up. Objective Vitals Vital Signs Date Temp Pulse Resp B/P (MAP) Pulse Ox O2 O2 Flow FiO2 Time Delivery Rate 12/22/18 72 12:34 12/22/18 98.2 18 127/60 94 Nasal 11:17 (82) Cannula 12/22/18 4.0 08:20 12/20/18 40 09:30 Intake and Output 12/21/18 12/21/18 12/22/18 1414:59 22:59 06:59 IntakeIntake Total 940 ml 240 ml OutputOutput Total 1265 ml 200 ml BalanceBalance -325 ml 40 ml Exam HEENT: Neck supple; no JVD; no LAD CVS: RRR, S1 and S2 CHEST: Bibasilar rales ABD: Soft, NT, + BS EXT: No c/c; + tr edema Results/Medications Result Diagram: 12/22/18 0548 12/22/18 0548 Results 24 hrs Laboratory Tests Test 12/21/18 17:58 12/21/18 20:13 12/22/18 04:40 12/22/18 05:48 Bedside Glucose 264 H 277 H 223 H White Blood Count 14.4 #H Red Blood Count 2.98 L Hemoglobin 9.0 L Hematocrit 28.4 L Mean Corpuscular Volume 95.3 Mean Corpuscular 30.2 Hemoglobin Mean Corpuscular 31.7 L Hemoglobin Concent Red Cell Distribution 14.3 Width Platelet Count 495 H Mean Platelet Volume 9.9 Immature Granulocytes % 0.800 H Neutrophils % 75.8 Lymphocytes % 12.8 L Monocytes % 6.8 Eosinophils % 3.0 Basophils % 0.8 Nucleated Red Blood 0.0 Cells % Immature Granulocytes # 0.120 H Neutrophils # 10.9 H Lymphocytes # 1.8 Monocytes # 1.0 H Eosinophils # 0.4 Basophils # 0.1 Nucleated Red Blood 0.0 Cells # Sodium Level 139 Potassium Level 3.6 Chloride Level 106 Carbon Dioxide Level 26 Anion Gap 7 Blood Urea Nitrogen 23 H Creatinine 1.44 H Est Glomerular Filtrat 50 L Rate mL/min Glucose Level 266 #H Calcium Level 7.9 L Phosphorus Level 3.4 Magnesium Level 2.1 Test 12/22/18 07:25 12/22/18 11:23 Bedside Glucose 358 H 290 H Home Meds Active Scripts Gabapentin* (Gabapentin*) 300 Mg Capsule, 300 MG PO TID, #90 CAP Prov:RADHA ROTHMAN 12/11/18 Ciprofloxacin Hcl* (Ciprofloxacin Hcl*) 250 Mg Tablet, 250 MG PO BID for 3 Days, #6 TAB Prov:RADHA ROTHMAN 12/11/18 Furosemide* (Furosemide*) 20 Mg Tablet, 20 MG PO DAILY for 3 Days, #3 TAB Prov:FOX JAVED 09/02/18 Omeprazole* (Omeprazole*) 20 Mg Capsule., 20 MG PO DAILY, #30 CAP Prov:RENU WHITE 08/22/18 Levofloxacin* (Levaquin*) 500 Mg Tablet, 500 MG PO DAILY for 5 Days, #5 TAB Prov:RENU WHITE 08/22/18 Salmeterol Xinaf/Fluticasone* (Advair*) 250-50 Diskus Inhaler, 1 INH INH BID for 30 Days Prov:SANAZ DAVIS MD 04/15/17 Aspirin* (Aspirin* EC) 81 Mg Tablet.dr, 81 MG PO DAILY for 30 Days Prov:SANAZ DAVIS MD 04/15/17 Atorvastatin* (Atorvastatin*) 40 Mg Tablet, 40 MG PO HS for 30 Days, TAB Prov:SANAZ DAVIS MD 04/15/17 Clopidogrel Bisulfate (Clopidogrel) 75 Mg Tablet, 75 MG PO DAILY for 30 Days, TAB Prov:SANAZ DAVIS MD 04/15/17 Amlodipine Besylate* (Norvasc*) 5 Mg Tablet, 2.5 MG PO DAILY for 30 Days, TAB Prov:SANAZ DAVIS MD 04/15/17 Insulin Aspart* (Novolog Insulin Pen*) 100 Unit/Ml Soln, 15 UNIT SC WITH MEALS for 30 Days, #1 SYR Prov:BRANDON HERRERA [employer]. [employer] 03/23/17 Metformin Hcl (Glucophage) 500 Mg Tablet, 1000 MG PO BID WITH MEALS for 30 Days, #60 TAB Prov:BRANDON HERRERA [employer] 03/23/17 Linagliptin (TRADJENTA) 5 Mg Tablet, 5 MG PO DAILY for 30 Days, #30 TAB Prov:BRANDON HERRERA [employer] 03/23/17 Insulin Glargine* (Lantus*) 100 Unit/Ml Soln, 45 UNIT SC HS for 30 Days, #1 SYR Prov:BRANDON HERRERA [employer] 03/23/17 Reported Medications Ergocalciferol (Vitamin D2) (VITAMIN D2) 2,000 Unit Tablet, 2000 UNIT PO DAILY, TAB 03/15/17 Medications Current Medications Levalbuterol (Xopenex Neb) 1.25 mg Q4H RESP THERAPY PRN HHN sob Last administered on 12/18/18 08:41; Admin Dose 1.25 MG; Start 12/16/18 at 02:00 Albumin Human 250 ml @ 500 mls/hr PRN PRN IV CVP< 8, OR SBP<90 Last administered on 12/19/18 15:54; Admin Dose 500 MLS/HR; Start 12/18/18 at 20:30 Oxycodone/ Acetaminophen (Percocet (5/ 325)) 1 tab Q3H PRN PO PAIN LEVEL 1-5 Last administered on 12/20/18 20:41; Admin Dose 1 TAB; Start 12/18/18 at 20:30 Oxycodone/ Acetaminophen (Percocet (5/ 325)) 2 tab Q3H PRN PO PAIN LEVEL 6-10 Last administered on 12/22/18 08:58; Admin Dose 2 TAB; Start 12/18/18 at 20:30 Ondansetron HCl (Zofran Inj) 4 mg Q6H PRN IV NAUSEA AND/OR VOMITING; Start 12/18/18 at 20:30 Famotidine (Pepcid) 20 mg BID PO ; Start 12/18/18 at 21:00; Status Hold Acetaminophen (Tylenol Tab) 650 mg Q3H PRN PO ELEVATED TEMPERATURE Last administered on 12/21/18 20:11; Admin Dose 650 MG; Start 12/18/18 at 20:30 Potassium Chloride 50 ml @ 50 mls/hr SEE DIRECTION PRN IVPB K+ LEVEL Last a dministered on 12/20/18 09:53; Admin Dose 50 MLS/HR; Start 12/18/18 at 20:30 Magnesium Sulfate/ Dextrose 100 ml @ 100 mls/hr PRN PRN IVPB PENDING LAB VALUE; Start 12/18/18 at 20:30 Enoxaparin Sodium (Lovenox) 40 mg BID SC Last administered on 12/22/18 09:00; Admin Dose 40 MG; Start 12/18/18 at 21:00 Atorvastatin Calcium (Lipitor) 80 mg HS PO Last administered on 12/21/18 20:10; Admin Dose 80 MG; Start 12/18/18 at 21:00 Aspirin (Aspirin) 325 mg DAILY PO Last administered on 12/22/18 08:49; Admin Dose 325 MG; Start 12/19/18 at 09:00 Acetaminophen (Tylenol Liquid) 650 mg Q4H PRN NGT MILD PAIN(1-3)OR ELEVATED TEMP Last administered on 12/20/18at 06:00; Admin Dose 650 MG; Start 12/20/18 at 06:00 Lorazepam (Ativan) 2 mg Q6H PRN IV Anxiety; Start 12/20/18 at 11:30 Hydralazine HCl (Apresoline) 10 mg Q6H PRN IV SBP>160; Start 12/20/18 at 11:30 Insulin Aspart (Novolog Insulin Pen) NOVOLOG *MILD* ALGORITHM WITH MEALS BEDTIME SC Last administered on 12/22/18 11:33; Admin Dose 4 UNIT; Start 12/20/18 at 13:00 Furosemide (Lasix) 40 mg BID DIURETICS IV Last administered on 12/22/18 05:30; Admin Dose 40 MG; Start 12/20/18 at 18:00 Metoprolol Tartrate (Lopressor) 50 mg BID PO Last administered on 12/22/18 08:50; Admin Dose 50 MG; Start 12/20/18 at 14:30 Piperacillin Sod/ Tazobactam Sod 100 ml @ 200 mls/hr Q6 IVPB Last administered on 12/22/18 11:19; Admin Dose 200 MLS/HR; Start 12/21/18 at 12:00 Gabapentin (Neurontin) 300 mg TID PO Last administered on 12/22/18 12:13; Admin Dose 300 MG; Start 12/22/18 at 13:00 Insulin Glargine (Lantus) 30 units DAILY@0800 SC ; Start 12/23/18 at 08:00 Insulin Aspart (Novolog Insulin Pen) 10 unit WITH MEALS SC ; Start 12/22/18 at 17:55 Assessment/Plan Assessment/Plan (Daily) 1. s/p Respiratory Failure 2. s/p CABG 3. NSTEMI 4. ANGEL 5. CHF 6. Leukocytosis/low grade fevers/possible pna RECS: 1. Mobilize OOB 2. ICS 3. Continue abx 4. Sputum GS/Cx 5. Diuresis VU CALL MD December 22, 2018 14:42
[2018-12-22] MEDS ORDERED: INSULIN ASPART [NOVOLOG] 3 ML PEN SC SCH (17:55)
[2018-12-22] MEDS: FAMOTIDINE 20 MG TAB PO SCH (20:43)
[2018-12-22] MEDS: ATORVASTATIN 80 MG TAB PO SCH (20:43)
[2018-12-22] MEDS ORDERED: POTASSIUM CHLORIDE (SR) 20 MEQ TAB PO SCH (21:00)
[2018-12-22] MEDS ORDERED: INSULIN ASPART [NOVOLOG] 3 ML PEN SC ONE (21:30)
[2018-12-22] MEDS ORDERED: ACCU-CHEK XX ONE (23:30)
[2018-12-23] VITALS (9 sets, daily range): BP systolic 99–142; BP diastolic 55–64; PULSE 64–73; RESP 16–19
[2018-12-23] MEDS ORDERED: INSULIN ASPART [NOVOLOG] 3 ML PEN SC ONE
[2018-12-23] MEDS ORDERED: ACCU-CHEK XX ONE
[2018-12-23] MEDS: OXYCODONE/ACETAMINOPHEN (5/325) TAB PO PRN ×3 (04:10→21:08)
[2018-12-23] MEDS: PIPER-TAZO 3.375 GM IV (PMX) 100 ML IVPB SCH ×2 (05:39→12:34)
[2018-12-23] MEDS: FUROSEMIDE 40 MG INJ IV SCH (05:39)
--- NOTE | 2018-12-23 07:05 | PN ---
Date/Time of Note Date/Time of Note DATE: 12/23/18 TIME: 07:04 Assessment/Plan VTE Prophylaxis Risk score (from Nsg)>0 risk: 6 SCD applied (from Nsg): Yes Pharmacological prophylaxis: other Lines/Catheters IV Catheter Type (from Nrsg): Peripheral IV Urinary Cath still in place: Yes Reason Cath still needed: urinary retention Assessment/Plan Hospital Course date of note is 12/22/2018 renal follow up all noted has good uop ARF is improving d/w Dr Clement no fever ,chills, vomiting, hematuria, melena or tachypnea PHYSICAL EXAMINATION: HEENT: Head is normocephalic. NECK: Supple. HEART: Regular rate. LUNGS: Show diminished breath sounds at base. ABDOMEN: Soft, nontender to palpation. No rebound or guarding. EXTREMITIES: Negative for clubbing, cyanosis. Positive edema. DERMATOLOGIC: No rashes. MUSCULOSKELETAL: No joint effusions. NEUROLOGIC: The patient is obtunded. ASSESSMENT AND PLAN: This is a 63-year-old male who presents with: 1. Nonoliguric acute kidney injury with previous baseline creatinine 1.1 to 1.2 mg/dL. Etiology of ANGEL is likely multifactorial secondary to tubular injury due to hemodynamics, CABG, nephrotoxicity, contrast exposure. The patient appears to be in injury phase of acute kidney injury as renal function continues to decline. We will recommend to monitor renal function closely on diuretic therapy, consider deescalation of diuretic therapy in order to enable fluid to mobilize. We will otherwise continue current treatment plans, supportive care, renally dose all medication. 2. Anemia. Continue to monitor H and H levels. 3. Hypernatremia. The patient has a free water deficit of approximately 1 liter. We will continue to monitor sodium levels closely. We will start the patient on free water flushes. 4. Mineral bone disorder. Monitor calcium and phosphorus levels. 5. Ventilator-dependent respiratory failure. Vent settings and ABG was reviewed. Continue to monitor. 6. Acute diastolic heart failure. The patient remains decompensated. Noted pulmonary edema, lower extremity edema, elevated JVD. Continue diuretic therapy as stated above, deescalate in order to enable fluid to mobilize. Monitor renal function and electrolytes closely. 7. Coronary artery disease, status post 4-vessel CABG. Continue current medical management. 8. Non-STEMI. Continue current treatment plan. 9. Peripheral arterial disease. Continue current treatment plan. 10. Diabetes. Continue current insulin management. 11. Hypertension. Continue blood pressure regimen. 12. Dyslipidemia. Continue statin therapy. 13. History of ETOH abuse, currently stable. No signs of cirrhosis. Result Diagram: 12/22/18 0548 12/22/18 0548 Results 24hrs Laboratory Tests Test 12/22/18 07:25 12/22/18 11:23 12/22/18 17:15 12/22/18 18:00 Bedside Glucose 358 H 290 H 281 H Urine Color STRAW Urine Clarity CLEAR Urine pH 6.0 Urine Specific [place] 1.013 Urine Ketones NEGATIVE Urine Nitrite NEGATIVE Urine Bilirubin NEGATIVE Urine Urobilinogen NEGATIVE Urine Leukocyte Esterase TRACE A Urine Microscopic RBC 46 H Urine Microscopic WBC 4 Urine Hemoglobin 2+ H Urine Glucose 1+ H Urine Total Protein 2+ H Test 12/22/18 20:42 12/22/18 23:37 12/23/18 02:42 Bedside Glucose 366 H 342 H 206 Exam/Review of Systems Exam Vitals Vital Signs Date Temp Pulse Resp B/P (MAP) Pulse Ox O2 O2 Flow FiO2 Time Delivery Rate 12/23/18 4.0 06:03 12/23/18 73 04:00 12/23/18 98.4 16 99/55 (70) 96 04:00 12/23/18 Nasal 00:00 Cannula 12/20/18 40 09:30 Intake and Output 12/22/18 12/22/18 12/23/18 1515:00 23:00 07:00 IntakeIntake Total 1100 ml 1100 ml 600 ml OutputOutput Total 1900 ml 200 ml 850 ml BalanceBalance -800 ml 900 ml -250 ml Results Results 24hrs Laboratory Tests Test 12/22/18 07:25 12/22/18 11:23 12/22/18 17:15 12/22/18 18:00 Bedside Glucose 358 H 290 H 281 H Urine Color STRAW Urine Clarity CLEAR Urine pH 6.0 Urine Specific [place] 1.013 Urine Ketones NEGATIVE Urine Nitrite NEGATIVE Urine Bilirubin NEGATIVE Urine Urobilinogen NEGATIVE Urine Leukocyte Esterase TRACE A Urine Microscopic RBC 46 H Urine Microscopic WBC 4 Urine Hemoglobin 2+ H Urine Glucose 1+ H Urine Total Protein 2+ H Test 12/22/18 20:42 12/22/18 23:37 12/23/18 02:42 Bedside Glucose 366 H 342 H 206 Medications Medication Current Medications Levalbuterol (Xopenex Neb) 1.25 mg Q4H RESP THERAPY PRN HHN sob Last administered on 12/18/18 08:41; Admin Dose 1.25 MG; Start 12/16/18 at 02:00 Albumin Human 250 ml @ 500 mls/hr PRN PRN IV CVP< 8, OR SBP<90 Last administ ered on 12/19/18 15:54; Admin Dose 500 MLS/HR; Start 12/18/18 at 20:30 Oxycodone/ Acetaminophen (Percocet (5/ 325)) 1 tab Q3H PRN PO PAIN LEVEL 1-5 Last administered on 12/20/18 20:41; Admin Dose 1 TAB; Start 12/18/18 at 20:30 Oxycodone/ Acetaminophen (Percocet (5/ 325)) 2 tab Q3H PRN PO PAIN LEVEL 6-10 Last administered on 12/23/18 04:10; Admin Dose 2 TAB; Start 12/18/18 at 20:30 Ondansetron HCl (Zofran Inj) 4 mg Q6H PRN IV NAUSEA AND/OR VOMITING; Start 12/18/18 at 20:30 Famotidine (Pepcid) 20 mg BID PO Last administered on 12/22/18 20:43; Admin Dose 20 MG; Start 12/18/18 at 21:00 Acetaminophen (Tylenol Tab) 650 mg Q3H PRN PO ELEVATED TEMPERATURE Last administered on 12/21/18 20:11; Admin Dose 650 MG; Start 12/18/18 at 20:30 Enoxaparin Sodium (Lovenox) 40 mg BID SC Last administered on 12/22/18 21:15; Admin Dose 40 MG; Start 12/18/18 at 21:00 Atorvastatin Calcium (Lipitor) 80 mg HS PO Last administered on 12/22/18 20:43; Admin Dose 80 MG; Start 12/18/18 at 21:00 Aspirin (Aspirin) 325 mg DAILY PO Last administered on 12/22/18 08:49; Admin Dose 325 MG; Start 12/19/18 at 09:00 Acetaminophen (Tylenol Liquid) 650 mg Q4H PRN NGT MILD PAIN(1-3)OR ELEVATED TEMP Last administered on 12/20/18 06:00; Admin Dose 650 MG; Start 12/20/18 at 06:00 Lorazepam (Ativan) 2 mg Q6H PRN IV Anxiety; Start 12/20/18 at 11:30 Hydralazine HCl (Apresoline) 10 mg Q6H PRN IV SBP>160; Start 12/20/18 at 11:30 Insulin Aspart (Novolog Insulin Pen) NOVOLOG *MILD* ALGORITHM WITH MEALS BEDTIME SC Last administered on 12/22/18 21:15; Admin Dose 4 UNIT; Start 12/20/18 at 13:00 Furosemide (Lasix) 40 mg BID DIURETICS IV Last administered on 12/23/18 05:39; Admin Dose 40 MG; Start 12/20/18 at 18:00 Metoprolol Tartrate (Lopressor) 50 mg BID PO Last administered on 12/22/18 20:44; Admin Dose 50 MG; Start 12/20/18 at 14:30 Piperacillin Sod/ Tazobactam Sod 100 ml @ 200 mls/hr Q6 IVPB Last administered on 12/23/18 05:39; Admin Dose 200 MLS/HR; Start 12/21/18 at 12:00 Gabapentin (Neurontin) 300 mg TID PO Last administered on 12/22/18 20:43; Admin Dose 300 MG; Start 12/22/18 at 13:00 Insulin Glargine (Lantus) 30 units DAILY@0800 SC ; Start 12/23/18 at 08:00 Insulin Aspart (Novolog Insulin Pen) 10 unit WITH MEALS SC Last administered on 12/22/18 17:19; Admin Dose 10 UNIT; Start 12/22/18 at 17:55 RADHA FAULKNER DO December 23, 2018 07:05
--- NOTE | 2018-12-23 07:33 | PN ---
Date/Time of Note Date/Time of Note DATE: 12/23/18 TIME: 07:31 Assessment/Plan Lines/Catheters IV Catheter Type (from Nrsg): Peripheral IV Hooks in Place (from Nrsg): Yes Assessment/Plan Chief Complaint/Hosp Course cad s/p cabg dm II leukocytosis improving 14 K zosyn good progress Subjective 24 Hr Interval Summary Constitutional: no complaints, BM Feeding: baseline diet Pain Control: well controlled Exam/Review of Systems Vital Signs Vitals Vital Signs Date Temp Pulse Resp B/P (MAP) Pulse Ox O2 O2 Flow FiO2 Time Delivery Rate 12/23/18 4.0 06:03 12/23/18 73 04:00 12/23/18 98.4 16 99/55 (70) 96 04:00 12/23/18 Nasal 00:00 Cannula 12/20/18 40 09:30 Intake and Output 12/22/18 12/22/18 12/23/18 1515:00 23:00 07:00 IntakeIntake Total 1100 ml 1100 ml 600 ml OutputOutput Total 1900 ml 200 ml 850 ml BalanceBalance -800 ml 900 ml -250 ml Exam Constitutional: alert, well developed Psych: no complaints Head: atraumatic Eyes: nl lids ENMT: nl nasal mucosa & septum Neck: supple Respiratory: clear to auscultation, normal air movement Cardiovascular: regular rate and rhythm Gastrointestinal: soft, non-tender Neurological: [employer] DES[employer] TE[employer] II-XII intact Results Result Diagram: 12/22/18 0548 12/22/18 0548 SUELLEN ALONSO MD December 23, 2018 07:33
--- NOTE | 2018-12-23 07:41 | CONS ---
Assessment/Plan Assessment/Plan Hospital Course (Demo Recall) 1) CAD with NSTEMI pt to get bypass surgery later today WBC is WNL and blood cx are neg pt to get merrem prior to surgery due to e.coli in urine ok for surgery from ID perspective 12/22 - s/p surgery CABG on 12/18 CT was removed but left with wound vac at anterior chest surgical site 12/23 - wound vac is not draining at this time pain is better controlled 2)?UTI pt has a reason for polyuria due to his DM not in control he denies dysuria his u/a here is neg likely the e.coli in urine is colonization but since he is getting a johnson for his surgery today I agree with starting the meropenem prior to surgery repeat u/a and if again no significant wbc, rbc then will d/c merrem later 12/19 - repeat u/a was negative merrem has been stopped, no active UTI I will sign off on case, no active infection appreciated 12/22 - another repeat u/a shows mild hematuria and due to fevers zosyn was started on 12/21 12/23 - johnson was removed and his urination is ok, no pain and urine is clear on zosyn day 3 3) DM 4) EtOH abuse no alcohol for one week so far and no seizures pt had remote hx of alcohol induced seizures merrem is minimally associated with seizures but he is far enough away from alcohol withdrawal seizures that it should be ok 5) HTN 6) persistent low grade fevers 12/22 - the consistent fevers is typical for bacterial infections but more c/w some systemic allergy or drug fever no increase in eosinophils is seen though and no rash CXR showed R josie-hilar fullness but procalcitonin was neg (very mild elevation likely from recent chest surgery) continue with zosyn at present repeat procalcitonin in a.m. repeat u/a with urine cx stool cx were sent but unclear if he has actual diarrhea 12/23 - no diarrhea u/a still shows hematuria but johnson has since been removed fevers are abated for last 36 hours WBC is back to WNL, chemistries are pending continue with zosyn alone at present Consultation Date/Type/Reason Admit Date/Time Dec 15, 2018 at 16:16 Initial Consult Date 12/19/18 Type of Consult ID Requesting Provider: JUAN M VENEGAS Date/Time of Note DATE: 12/23/18 TIME: 07:33 24 HR Interval Summary Free Text/Dictation pt feels good this a.m. his chest pain is controlled and he has minimal cough he had a soft BM overnight no N, V breathing is good Exam/Review of Systems Exam Vitals Vital Signs Date Temp Pulse Resp B/P (MAP) Pulse Ox O2 O2 Flow FiO2 Time Delivery Rate 12/23/18 4.0 06:03 12/23/18 73 04:00 12/23/18 98.4 16 99/55 (70) 96 04:00 12/23/18 Nasal 00:00 Cannula 12/20/18 40 09:30 Intake and Output 12/22/18 12/22/18 12/23/18 1414:59 22:59 06:59 IntakeIntake Total 1100 ml 1100 ml 600 ml OutputOutput Total 1900 ml 200 ml 850 ml BalanceBalance -800 ml 900 ml -250 ml Constitutional: alert, oriented Eyes: nl sclera ENMT: mucosa pink and moist Respiratory: clear to auscultation Cardiovascular: regular rate and rhythm Gastrointestinal: soft, non-tender Results Result Diagram: 12/22/18 0548 12/22/18 0548 Results 24hrs Laboratory Tests Test 12/22/18 11:23 12/22/18 17:15 12/22/18 18:00 12/22/18 20:42 Bedside Glucose 290 H 281 H 366 H Urine Color STRAW Urine Clarity CLEAR Urine pH 6.0 Urine Specific [place] 1.013 Urine Ketones NEGATIVE Urine Nitrite NEGATIVE Urine Bilirubin NEGATIVE Urine Urobilinogen NEGATIVE Urine Leukocyte Esterase TRACE A Urine Microscopic RBC 46 H Urine Microscopic WBC 4 Urine Hemoglobin 2+ H Urine Glucose 1+ H Urine Total Protein 2+ H Test 12/22/18 23:37 12/23/18 02:42 12/23/18 06:35 Bedside Glucose 342 H 206 White Blood Count Pending Red Blood Count Pending Hemoglobin Pending Hematocrit Pending Mean Corpuscular Volume Pending Mean Corpuscular Pending Hemoglobin Mean Corpuscular Pending Hemoglobin Concent Red Cell Distribution Pending Width Platelet Count Pending Mean Platelet Volume Pending Medications Medication Current Medications Levalbuterol (Xopenex Neb) 1.25 mg Q4H RESP THERAPY PRN HHN sob Last administered on 5/1/19at 08:41; Admin Dose 1.25 MG; Start 12/16/18 at 02:00 Albumin Human 250 ml @ 500 mls/hr PRN PRN IV CVP< 8, OR SBP<90 Last administered on 12/19/18 15:54; Admin Dose 500 MLS/HR; Start 12/18/18 at 20:30 Oxycodone/ Acetaminophen (Percocet (5/ 325)) 1 tab Q3H PRN PO PAIN LEVEL 1-5 Last administered on 12/20/18 20:41; Admin Dose 1 TAB; Start 12/18/18 at 20:30 Oxycodone/ Acetaminophen (Percocet (5/ 325)) 2 tab Q3H PRN PO PAIN LEVEL 6-10 Last administered on 12/23/18 04:10; Admin Dose 2 TAB; Start 12/18/18 at 20:30 Ondansetron HCl (Zofran Inj) 4 mg Q6H PRN IV NAUSEA AND/OR VOMITING; Start 12/18/18 at 20:30 Famotidine (Pepcid) 20 mg BID PO Last administered on 12/22/18 20:43; Admin Dose 20 MG; Start 12/18/18 at 21:00 Acetaminophen (Tylenol Tab) 650 mg Q3H PRN PO ELEVATED TEMPERATURE Last admini stered on 12/21/18 20:11; Admin Dose 650 MG; Start 12/18/18 at 20:30 Enoxaparin Sodium (Lovenox) 40 mg BID SC Last administered on 12/22/18 21:15; Admin Dose 40 MG; Start 12/18/18 at 21:00 Atorvastatin Calcium (Lipitor) 80 mg HS PO Last administered on 12/22/18 20:43; Admin Dose 80 MG; Start 12/18/18 at 21:00 Aspirin (Aspirin) 325 mg DAILY PO Last administered on 12/22/18 08:49; Admin Dose 325 MG; Start 12/19/18 at 09:00 Acetaminophen (Tylenol Liquid) 650 mg Q4H PRN NGT MILD PAIN(1-3)OR ELEVATED TEMP Last administered on 12/20/18 06:00; Admin Dose 650 MG; Start 12/20/18 at 06:00 Lorazepam (Ativan) 2 mg Q6H PRN IV Anxiety; Start 12/20/18 at 11:30 Hydralazine HCl (Apresoline) 10 mg Q6H PRN IV SBP>160; Start 12/20/18 at 11:30 Insulin Aspart (Novolog Insulin Pen) NOVOLOG *MILD* ALGORITHM WITH MEALS BEDTIME SC Last administered on 12/22/18 21:15; Admin Dose 4 UNIT; Start 12/20/18 at 13:00 Furosemide (Lasix) 40 mg BID DIURETICS IV Last administered on 12/23/18 05:39; Admin Dose 40 MG; Start 12/20/18 at 18:00 Metoprolol Tartrate (Lopressor) 50 mg BID PO Last administered on 12/22/18 20:44; Admin Dose 50 MG; Start 12/20/18 at 14:30 Piperacillin Sod/ Tazobactam Sod 100 ml @ 200 mls/hr Q6 IVPB Last administered on 12/23/18 05:39; Admin Dose 200 MLS/HR; Start 12/21/18 at 12:00 Gabapentin (Neurontin) 300 mg TID PO Last administered on 12/22/18 20:43; Admin Dose 300 MG; Start 12/22/18 at 13:00 Insulin Glargine (Lantus) 30 units DAILY@0800 SC ; Start 12/23/18 at 08:00 Insulin Aspart (Novolog Insulin Pen) 10 unit WITH MEALS SC Last administered on 12/22/18 17:19; Admin Dose 10 UNIT; Start 12/22/18 at 17:55 GIULIANA MELENDEZ MD December 23, 2018 07:41
[2018-12-23] MEDS: INSULIN ASPART [NOVOLOG] 3 ML PEN SC SCH ×7 (08:03→21:12)
[2018-12-23] MEDS: FAMOTIDINE 20 MG TAB PO SCH ×2 (08:07→20:59)
[2018-12-23] MEDS: GABAPENTIN 300 MG CAP PO SCH ×3 (08:07→20:59)
[2018-12-23] MEDS: ASPIRIN 325 MG TAB PO SCH (08:07)
[2018-12-23] MEDS: METOPROLOL 50 MG TAB PO SCH ×2 (08:08→20:59)
[2018-12-23] MEDS: ENOXAPARIN 40 MG/0.4 ML SYG SC SCH ×2 (08:12→21:12)
[2018-12-23] MEDS: INSULIN GLARGINE [LANTus] (100 UNITS/ML) SYG SC SCH (08:13)
[2018-12-23] MEDS: BALSAM PERU/CASTOR OIL 60 GM TUBE TOP SCH ×2 (09:20→21:08)
--- NOTE | 2018-12-23 09:37 | RADRPT ---
Vent Rate: 80 bpm RR Interval: 752 msec HI Interval: 179 msec QRS Duration: 80 msec QT Interval: 372 msec QTC Interval: 429 msec P-R-T Line [place]: 97 - -15 - 98 degrees Sinus rhythm...normal P axis, V-rate 50- 99 Nonspecific T abnormalities, lateral leads...T <-0.10mV, I aVL V5 V6 Electronically Signed By: Edgard Carrillo
--- NOTE | 2018-12-23 10:23 | CONS ---
Assessment/Plan Assessment/Plan Hospital Course (Demo Recall) Acute diastolic CHF: EF 60%. Now euvolemic Acute respiratory failure: Intubated for CABG. Extubated 12/20 Acute renal failure: Cr slightly increased post-op. Likely ATN but also REYNA possible from cath. Stable with diuresis. Stable around 1.4 CAD s/p CAB vessel SVG-LAD, SVG-OM1/OM2 (sequenced), SVG-PDA. DE ANDA not used as injured during prep. NSTEMI: Trop 1 and trended down. No active chest pain. Three vessel CAD on cath s/p CABG PAD s/p left leg balloon angioplasty and stenting 2016 DM HTN HL Alcohol abuse: no cirrhosis or bleeding. -change to bumex 1mg daily tomorrow -ASA 325mg. Will consider decreasing to 81mg and adding plavix prior to d/c -lipitor 80mg -metoprolol 50mg BID Consultation Date/Type/Reason Admit Date/Time Dec 15, 2018 at 16:16 Initial Consult Date 12/16/18 Type of Consult Cardiology Requesting Provider: JUAN M VENEGAS Date/Time of Note DATE: 12/23/18 TIME: 10:21 24 HR Interval Summary Free Text/Dictation Doing very well. Ambulating without symptoms. No dyspnea or chest pain Exam/Review of Systems Vital Signs Vitals Vital Signs Date Temp Pulse Resp B/P (MAP) Pulse Ox O2 O2 Flow FiO2 Time Delivery Rate 12/23/18 4.0 09:38 12/23/18 72 08:00 12/23/18 98.4 18 142/64 96 Nasal 07:32 (90) Cannula 12/20/18 40 09:30 Intake and Output 12/22/18 12/22/18 12/23/18 1515:00 23:00 07:00 IntakeIntake Total 1100 ml 1100 ml 600 ml OutputOutput Total 1900 ml 200 ml 850 ml BalanceBalance -800 ml 900 ml -250 ml Exam Constitutional: alert, oriented Psych: no complaints, nl mood/affect Head: normocephalic, atraumatic Neck: No jvd Respiratory: diminished breath sounds; No clear to auscultation Cardiovascular: regular rate and rhythm, edema (1+) Gastrointestinal: soft, non-tender; No distended Neurological: nl mental status, nl speech Labs Result Diagram: 12/23/18 0635 12/23/18 0635 Results 24hrs Laboratory Tests Test 12/22/18 11:23 12/22/18 17:15 12/22/18 18:00 12/22/18 20:42 Bedside Glucose 290 H 281 H 366 H Urine Color STRAW Urine Clarity CLEAR Urine pH 6.0 Urine Specific [place] 1.013 Urine Ketones NEGATIVE Urine Nitrite NEGATIVE Urine Bilirubin NEGATIVE Urine Urobilinogen NEGATIVE Urine Leukocyte Esterase TRACE A Urine Microscopic RBC 46 H Urine Microscopic WBC 4 Urine Hemoglobin 2+ H Urine Glucose 1+ H Urine Total Protein 2+ H Test 12/22/18 23:37 12/23/18 02:42 12/23/18 06:35 12/23/18 07:58 Bedside Glucose 342 H 206 200 White Blood Count 9.9 # Red Blood Count 2.84 L Hemoglobin 8.4 L Hematocrit 26.8 L Mean Corpuscular Volume 94.4 Mean Corpuscular 29.6 Hemoglobin Mean Corpuscular 31.3 L Hemoglobin Concent Red Cell Distribution 13.9 Width Platelet Count 510 H Mean Platelet Volume 10.0 Immature Granulocytes % 0.900 H Neutrophils % 66.4 Lymphocytes % 18.5 Monocytes % 9.2 Eosinophils % 4.1 Basophils % 0.9 Nucleated Red Blood 0.0 Cells % Immature Granulocytes # 0.090 H Neutrophils # 6.6 Lymphocytes # 1.8 Monocytes # 0.9 Eosinophils # 0.4 Basophils # 0.1 Nucleated Red Blood 0.0 Cells # Sodium Level 138 Potassium Level 4.1 Chloride Level 104 Carbon Dioxide Level 27 Anion Gap 7 Blood Urea Nitrogen 20 Creatinine 1.41 H Est Glomerular Filtrat 51 L Rate mL/min Glucose Level 179 Calcium Level 7.6 L Total Bilirubin 0.2 Direct Bilirubin 0.00 Indirect Bilirubin 0.2 Aspartate Amino 23 Transf (AST/SGOT) Alanine 33 Aminotransferase (ALT/SG PT) Alkaline Phosphatase 91 Total Protein 5.0 L Albumin 2.2 L Globulin 2.80 Albumin/Globulin Ratio 0.78 Procalcitonin 0.14 H Medications Medications Current Medications Levalbuterol (Xopenex Neb) 1.25 mg Q4H RESP THERAPY PRN HHN sob Last administered on 12/18/18at 08:41; Admin Dose 1.25 MG; Start 12/16/18 at 02:00 Albumin Human 250 ml @ 500 mls/hr PRN PRN IV CVP< 8, OR SBP<90 Last administered on 12/19/18 15:54; Admin Dose 500 MLS/HR; Start 12/18/18 at 20:30 Oxycodone/ Acetaminophen (Percocet (5/ 325)) 1 tab Q3H PRN PO PAIN LEVEL 1-5 Last administered on 12/20/18 20:41; Admin Dose 1 TAB; Start 12/18/18 at 20:30 Oxycodone/ Acetaminophen (Percocet (5/ 325)) 2 tab Q3H PRN PO PAIN LEVEL 6-10 Last administered on 12/23/18 04:10; Admin Dose 2 TAB; Start 12/18/18 at 20:30 Ondansetron HCl (Zofran Inj) 4 mg Q6H PRN IV NAUSEA AND/OR VOMITING; Start 12/18/18 at 20:30 Famotidine (Pepcid) 20 mg BID PO Last administered on 12/23/18 08:07; Admin Dose 20 MG; Start 12/18/18 at 21:00 Acetaminophen (Tylenol Tab) 650 mg Q3H PRN PO ELEVATED TEMPERATURE Last administered on 12/21/18 20:11; Admin Dose 650 MG; Start 12/18/18 at 20:30 Enoxaparin Sodium (Lovenox) 40 mg BID SC Last administered on 12/23/18 08:12; Admin Dose 40 MG; Start 12/18/18 at 21:00 Atorvastatin Calcium (Lipitor) 80 mg HS PO Last administered on 12/22/18 20:43; Admin Dose 80 MG; Start 12/18/18 at 21:00 Aspirin (Aspirin) 325 mg DAILY PO Last administered on 12/23/18 08:07; Admin Dose 325 MG; Start 12/19/18 at 09:00 Acetaminophen (Tylenol Liquid) 650 mg Q4H PRN NGT MILD PAIN(1-3)OR ELEVATED TEMP Last administered on 12/20/18 06:00; Admin Dose 650 MG; Start 12/20/18 at 06:00 Lorazepam (Ativan) 2 mg Q6H PRN IV Anxiety; Start 12/20/18 at 11:30 Hydralazine HCl (Apresoline) 10 mg Q6H PRN IV SBP>160; Start 12/20/18 at 11:30 Insulin Aspart (Novolog Insulin Pen) NOVOLOG *MILD* ALGORITHM WITH MEALS BEDTIME SC Last administered on 12/23/18 08:03; Admin Dose 2 UNIT; Start 12/20/18 at 13:00 Metoprolol Tartrate (Lopressor) 50 mg BID PO Last administered on 12/23/18 08:08; Admin Dose 50 MG; Start 12/20/18 at 14:30 Piperacillin Sod/ Tazobactam Sod 100 ml @ 200 mls/hr Q6 IVPB Last administered on 12/23/18at 05:39; Admin Dose 200 MLS/HR; Start 12/21/18 at 12:00 Gabapentin (Neurontin) 300 mg TID PO Last administered on 12/23/18 08:07; Admin Dose 300 MG; Start 12/22/18 at 13:00 Insulin Glargine (Lantus) 30 units DAILY@0800 SC Last administered on 12/23/18 08:13; Admin Dose 30 UNITS; Start 12/23/18 at 08:00 Insulin Aspart (Novolog Insulin Pen) 10 unit WITH MEALS SC Last administered on 12/23/18 08:03; Admin Dose 10 UNIT; Start 12/22/18 at 17:55 Bumetanide (Bumex) 1 mg DAILY PO ; Start 12/24/18 at 09:00 JUAN M VENEGAS December 23, 2018 10:22
--- NOTE | 2018-12-23 10:42 | PN ---
DATE: 12/23/2018 SUBJECTIVE: The patient is stable, no events overnight. OBJECTIVE: VITAL SIGNS: Blood pressure is 142/64, pulse 72, respirations 18, temperature 98.4. HEENT: Head is normocephalic. NECK: Supple. HEART: Regular rate. LUNGS: Show diminished breath sounds at the base. ABDOMEN: Soft, nontender to palpation without rebound or guarding. EXTREMITIES: Negative for clubbing, cyanosis, no edema. DERMATOLOGIC: No rashes. MUSCULOSKELETAL: No joint effusion. NEUROLOGIC: No change in exam. MEDICATIONS: Reviewed. LABORATORY DATA: Reviewed. ASSESSMENT AND PLAN: 1. Nonoliguric acute kidney injury with previous baseline creatinine of 1.1 to 1.2 mg/dL. Etiology of acute kidney injury is secondary to hemodynamics, tubular injury secondary to coronary artery bypa ss graft, nephrotoxicity, contrast exposure. The patient appears to be entering maintenance phase of acute tubular necrosis as renal function has stabilized in the last 24 hours. At this point, contin ue current treatment plan, supportive care, renally dose all medicines. 2. Anemia. Continue to monitor hemoglobin and hematocrit levels. 3. Hypernatremia, improved. Continue to monitor, continue free water flushes. 4. Mineral bone disorder, monitor calcium and phosphorus levels. 5. Ventilator-dependent respiratory failure. Vent settings and ABG was reviewed. Continue to monit or. 6. Acute diastolic heart failure. The patient appears compensated. We will deescalate diuretic the rapy. Continue to monitor, continue supportive care, monitor electrolytes, renal function closely. 7. Currently status post 4-vessel graft. Continue current medical management. 8. Non-ST elevation myocardial infarction. Continue current treatment plan. 9. Peripheral arterial disease. Continue current treatment plan. 10. Diabetes. Continue current insulin regimen. 11. Hypertension. Continue current blood pressure regimen. 12. Dyslipidemia. Continue statin therapy. 13. History of ETOH abuse. Dictated By: KIERAN KEARNEY DO NR/NTS Conf#: [id number] DID#: [id number] CC: JUAN M VENEGAS MD; RENU WHITE MD;*EndCC*
--- NOTE | 2018-12-23 13:39 | PN ---
Date/Time of Note Date/Time of Note DATE: 12/23/18 TIME: 13:38 Objective Vitals Vital Signs Date Temp Pulse Resp B/P (MAP) Pulse Ox O2 O2 Flow FiO2 Time Delivery Rate 12/23/18 71 12:00 12/23/18 98.5 18 138/63 96 Nasal 4.0 11:04 (88) Cannula 12/20/18 40 09:30 Intake and Output 12/22/18 12/22/18 12/23/18 1515:00 23:00 07:00 IntakeIntake Total 1100 ml 1100 ml 600 ml OutputOutput Total 1900 ml 200 ml 850 ml BalanceBalance -800 ml 900 ml -250 ml Results Result Diagram: 12/23/18 0635 12/23/18 0635 Medications Medications Current Medications Levalbuterol (Xopenex Neb) 1.25 mg Q4H RESP THERAPY PRN HHN sob Last administered on 12/18/18 08:41; Admin Dose 1.25 MG; Start 12/16/18 at 02:00 Albumin Human 250 ml @ 500 mls/hr PRN PRN IV CVP< 8, OR SBP<90 Last administered on 12/19/18 15:54; Admin Dose 500 MLS/HR; Start 12/18/18 at 20:30 Oxycodone/ Acetaminophen (Percocet (5/ 325)) 1 tab Q3H PRN PO PAIN LEVEL 1-5 Last administered on 12/20/18 20:41; Admin Dose 1 TAB; Start 12/18/18 at 20:30 Oxycodone/ Acetaminophen (Percocet (5/ 325)) 2 tab Q3H PRN PO PAIN LEVEL 6-10 Last administered on 12/23/18 04:10; Admin Dose 2 TAB; Start 12/18/18 at 20:30 Ondansetron HCl (Zofran Inj) 4 mg Q6H PRN IV NAUSEA AND/OR VOMITING; Start 12/18/18 at 20:30 Famotidine (Pepcid) 20 mg BID PO Last administered on 12/23/18 08:07; Admin Dose 20 MG; Start 12/18/18 at 21:00 Acetaminophen (Tylenol Tab) 650 mg Q3H PRN PO ELEVATED TEMPERATURE Last administered on 12/21/18 20:11; Admin Dose 650 MG; Start 12/18/18 at 20:30 Enoxaparin Sodium (Lovenox) 40 mg BID SC Last administered on 12/23/18 08:12; Admin Dose 40 MG; Start 12/18/18 at 21:00 Atorvastatin Calcium (Lipitor) 80 mg HS PO Last administered on 12/22/18 20:43; Admin Dose 80 MG; Start 12/18/18 at 21:00 Aspirin (Aspirin) 325 mg DAILY PO Last administered on 12/23/18 08:07; Admin Dose 325 MG; Start 12/19/18 at 09:00 Acetaminophen (Tylenol Liquid) 650 mg Q4H PRN NGT MILD PAIN(1-3)OR ELEVATED TEMP Last administered on 12/20/18 06:00; Admin Dose 650 MG; Start 12/20/18 at 06:00 Lorazepam (Ativan) 2 mg Q6H PRN IV Anxiety; Start 12/20/18 at 11:30 Hydralazine HCl (Apresoline) 10 mg Q6H PRN IV SBP>160; Start 12/20/18 at 11:30 Insulin Aspart (Novolog Insulin Pen) NOVOLOG *MILD* ALGORITHM WITH MEALS BEDTIME SC Last administered on 12/23/18 11:47; Admin Dose 2 UNIT; Start 12/20/18 at 13:00 Metoprolol Tartrate (Lopressor) 50 mg BID PO Last administered on 12/23/18 08:08; Admin Dose 50 MG; Start 12/20/18 at 14:30 Piperacillin Sod/ Tazobactam Sod 100 ml @ 200 mls/hr Q6 IVPB Last administered on 12/23/18 12:34; Admin Dose 200 MLS/HR; Start 12/21/18 at 12:00 Gabapentin (Neurontin) 300 mg TID PO Last administered on 12/23/18 12:34; Admin Dose 300 MG; Start 12/22/18 at 13:00 Insulin Glargine (Lantus) 30 units DAILY@0800 SC Last administered on 12/23/18 08:13; Admin Dose 30 UNITS; Start 12/23/18 at 08:00 Insulin Aspart (Novolog Insulin Pen) 10 unit WITH MEALS SC Last administered on 12/23/18 11:46; Admin Dose 10 UNIT; Start 12/22/18 at 17:55 Bumetanide (Bumex) 1 mg DAILY PO ; Start 12/24/18 at 09:00 VTE Prophylaxis Risk score (from Ns)>0 risk: 8 [place]CD applied [place] [facility] [place] Yes Lines/Catheters IV Catheter Type: Hooks in Place: No Assessment/Plan Hospital Course Subjective Patient doing well Objective Physical exam General: Patient is laying in bed and answers questions appropriately Mentation: Patient is alert and oriented 4, Head: Normocephalic atraumatic Eyes: EOMI, pupils reactive to light Neck: Supple, nontender, midline Respiratory: Clear to auscultation bilaterally Cardiovascular: regular rate, no obvious murmurs Gastrointestinal: non-tender to palpation, bowel sounds heard. Neurological: Moves all extremities spontaneously Skin: Surgical site bandaged, CDI ASSESSMENT & PLAN This is a 63-year-old male with comorbidities including diabetes mellitus, left foot osteomyelitis, hypertension, obesity, chronic kidney disease, peripheral artery disease, and alcohol abuse. The patient came to the emergency room with chief complaint of abdominal pain, distension and occasional radiation of pain to the chest. He was noticed to have NSTEMI. 1. NSTEMI. -S/P LHC on 12/17/2018 that showed significant 3-vessel CAD. -S/P CABG x4, SVG to LAD, SVG to OM1 sequenced to OM2, SVG to PDA on 12/18/2018. -extubated 12/20/18 -wound vac in place in chest -doing well Mild fevers, resolving -Patient asymptomatic -ID on board, Dr. Tsai -IV antibiotic -Cultures -UA neg 2. Acute respiratory failure. -Resolving significantly, on nasal cannula -Continue supplemental O2. -Continue inhaled bronchodilators. -resolving 3. Fluid overload. -Etiology could be multifactorial. -2D echocardiogram showing preserved LVEF. -Known history of significant proteinuria, suggesting nephrotic syndrome. -Diuretics as clinically indicated. 4. Diabetes mellitus type 2. -Hemoglobin A1c 10.7. -Currently on insulin drip. 5. Peripheral artery disease. -Status post left tibioperoneal trunk balloon angioplasty, left femoral popliteal artery stenting, and left femoral popliteal artery balloon angioplasty on 03/22/2017. -Continue antiplatelet therapy as per client administrator 6. Hypertension. -Continue antihypertensives. 7. Pulmonary hypertension. -PA systolic pressure of 52 mm Hg. 8. E. coli ESBL in urine wound 12/18/2018. resolved -[place] count <10,000 CFU per mL. -completed course of carbapenams -Repeat urine studies negative. -S/P ID evaluation. 9. Obesity. -BMI 31.5 kg/m -Weight reduction advised. 10. Normocytic, normochromic anemia. -Monitor H&H closely. 11. Alcohol abuse. -Continue multivitamins. 12. Generalized anxiety. -PRN benzodiazepines. 13. ANGEL. -Monitor BUN and creatinine closely. -Use nephrotoxic drugs with caution. -Nephrology on board. DVT proph: -[address] surgery 16. Plan. -Patient doing well, continue current medication and diuresis, convert from IV to p.o. medications soon. RENU WHITE December 23, 2018 13:39
--- NOTE | 2018-12-23 14:00 | RADRPT ---
Vent Rate: 82 bpm RR Interval: 0 msec LA Interval: 178 msec QRS Duration: 78 msec QT Interval: 386 msec QTC Interval: 450 msec P-R-T [place]: 56 - 14 - 95 degrees Normal sinus rhythm Nonspecific ST and T wave abnormality Abnormal ECG Electronically Signed By: Edgard Carrillo
--- NOTE | 2018-12-23 14:43 | CONS ---
Consult Date/Type/Reason Admit Date/Time Dec 15, 2018 at 16:16 Initial Consult Date 12/19/18 Type of Consult Pulmonary Requesting Provider: JUAN M VENEGAS Date/Time of Note DATE: 12/23/18 TIME: 14:40 Subjective Patient stable. Objective Vital Signs Date Temp Pulse Resp B/P (MAP) Pulse Ox O2 O2 Flow FiO2 Time Delivery Rate 12/23/18 71 12:00 12/23/18 98.5 18 138/63 96 Nasal 4.0 11:04 (88) Cannula 12/20/18 40 09:30 Intake and Output 12/22/18 12/22/18 12/23/18 1515:00 23:00 07:00 IntakeIntake Total 1100 ml 1100 ml 600 ml OutputOutput Total 1900 ml 200 ml 850 ml BalanceBalance -800 ml 900 ml -250 ml Exam GENERAL: Elderly gentleman comfortable at rest VITAL SIGNS: per chart NECK: Supple. No JVD or lymphadenopathy. CARDIAC EXAM: S1, S2. No added sounds or murmurs. CHEST: Diminished air entry both bases ABDOMEN: Soft, nontender. No guarding or rebound. EXTREMITIES: No cyanosis, clubbing or edema. NEUROLOGIC: Generalized weakness. No focal deficits. Vent Setting Ventilator Support Mode: CPAP, PS Fraction of Inspired Oxygen pe: 40 Positive End Expiratory Pressu: 5.0 Results/Medications Result Diagram: 12/23/18 0635 12/23/18 0635 Results 24 hrs Laboratory Tests Test 12/22/18 17:15 12/22/18 18:00 12/22/18 20:42 12/22/18 23:37 Bedside Glucose 281 H 366 H 342 H Urine Color STRAW Urine Clarity CLEAR Urine pH 6.0 Urine Specific [place] 1.013 Urine Ketones NEGATIVE Urine Nitrite NEGATIVE Urine Bilirubin NEGATIVE Urine Urobilinogen NEGATIVE Urine Leukocyte Esterase TRACE A Urine Microscopic RBC 46 H Urine Microscopic WBC 4 Urine Hemoglobin 2+ H Urine Glucose 1+ H Urine Total Protein 2+ H Test 12/23/18 02:42 12/23/18 06:35 12/23/18 07:58 12/23/18 11:41 Bedside Glucose 206 200 191 White Blood Count 9.9 # Red Blood Count 2.84 L Hemoglobin 8.4 L Hematocrit 26.8 L Mean Corpuscular Volume 94.4 Mean Corpuscular 29.6 Hemoglobin Mean Corpuscular 31.3 L Hemoglobin Concent Red Cell Distribution 13.9 Width Platelet Count 510 H Mean Platelet Volume 10.0 Immature Granulocytes % 0.900 H Neutrophils % 66.4 Lymphocytes % 18.5 Monocytes % 9.2 Eosinophils % 4.1 Basophils % 0.9 Nucleated Red Blood 0.0 Cells % Immature Granulocytes # 0.090 H Neutrophils # 6.6 Lymphocytes # 1.8 Monocytes # 0.9 Eosinophils # 0.4 Basophils # 0.1 Nucleated Red Blood 0.0 Cells # Sodium Level 138 Potassium Level 4.1 Chloride Level 104 Carbon Dioxide Level 27 Anion Gap 7 Blood Urea Nitrogen 20 Creatinine 1.41 H Est Glomerular Filtrat 51 L Rate mL/min Glucose Level 179 Calcium Level 7.6 L Total Bilirubin 0.2 Direct Bilirubin 0.00 Indirect Bilirubin 0.2 Aspartate Amino 23 Transf (AST/SGOT) Alanine 33 Aminotransferase (ALT/SG PT) Alkaline Phosphatase 91 Total Protein 5.0 L Albumin 2.2 L Globulin 2.80 Albumin/Globulin Ratio 0.78 Procalcitonin 0.14 H Medications Current Medications Levalbuterol (Xopenex Neb) 1.25 mg Q4H RESP THERAPY PRN HHN sob Last administered on 12/18/18 08:41; Admin Dose 1.25 MG; Start 12/16/18 at 02:00 Albumin Human 250 ml @ 500 mls/hr PRN PRN IV CVP< 8, OR SBP<90 Last administered on 12/19/18 15:54; Admin Dose 500 MLS/HR; Start 12/18/18 at 20:30 Oxycodone/ Acetaminophen (Percocet (5/ 325)) 1 tab Q3H PRN PO PAIN LEVEL 1-5 Last administered on 12/20/18 20:41; Admin Dose 1 TAB; Start 12/18/18 at 20:30 Oxycodone/ Acetaminophen (Percocet (5/ 325)) 2 tab Q3H PRN PO PAIN LEVEL 6-10 Last administered on 12/23/18 04:10; Admin Dose 2 TAB; Start 12/18/18 at 20:30 Ondansetron HCl (Zofran Inj) 4 mg Q6H PRN IV NAUSEA AND/OR VOMITING; Start 12/18 at 20:30 Famotidine (Pepcid) 20 mg BID PO Last administered on 12/23/18 08:07; Admin Dose 20 MG; Start 12/18/18 at 21:00 Acetaminophen (Tylenol Tab) 650 mg Q3H PRN PO ELEVATED TEMPERATURE Last ad ministered on 12/21/18 20:11; Admin Dose 650 MG; Start 12/18/18 at 20:30 Enoxaparin Sodium (Lovenox) 40 mg BID SC Last administered on 12/23/18 08:12; Admin Dose 40 MG; Start 12/18/18 at 21:00 Atorvastatin Calcium (Lipitor) 80 mg HS PO Last administered on 12/22/18 20:43; Admin Dose 80 MG; Start 12/18/18 at 21:00 Aspirin (Aspirin) 325 mg DAILY PO Last administered on 12/23/18 08:07; Admin Dose 325 MG; Start 12/19/18 at 09:00 Acetaminophen (Tylenol Liquid) 650 mg Q4H PRN NGT MILD PAIN(1-3)OR ELEVATED TEMP Last administered on 12/20/18 06:00; Admin Dose 650 MG; Start 12/20/18 at 06:00 Lorazepam (Ativan) 2 mg Q6H PRN IV Anxiety; Start 12/20/18 at 11:30 Hydralazine HCl (Apresoline) 10 mg Q6H PRN IV SBP>160; Start 12/20/18 at 11:30 Insulin Aspart (Novolog Insulin Pen) NOVOLOG *MILD* ALGORITHM WITH MEALS BEDTIME SC Last administered on 12/23/18 11:47; Admin Dose 2 UNIT; Start 12/20/18 at 13:00 Metoprolol Tartrate (Lopressor) 50 mg BID PO Last administered on 12/23/18 08:08; Admin Dose 50 MG; Start 12/20/18 at 14:30 Piperacillin Sod/ Tazobactam Sod 100 ml @ 200 mls/hr Q6 IVPB Last administered on 12/23/18 12:34; Admin Dose 200 MLS/HR; Start 12/21/18 at 12:00 Gabapentin (Neurontin) 300 mg TID PO Last administered on 12/23/18 12:34; Admin Dose 300 MG; Start 12/22/18 at 13:00 Insulin Glargine (Lantus) 30 units DAILY@0800 SC Last administered on 5/6/19at 08:13; Admin Dose 30 UNITS; Start 12/23/18 at 08:00 Insulin Aspart (Novolog Insulin Pen) 10 unit WITH MEALS SC Last administered on 12/23/18at 11:46; Admin Dose 10 UNIT; Start 12/22/18 at 17:55 Bumetanide (Bumex) 1 mg DAILY PO ; Start 12/24/18 at 09:00 Assessment/Plan Hospital Course (Demo Recall) Assessment 1. s/p Respiratory Failure 2. s/p CABG 3. NSTEMI 4. ANGEL 5. CHF 6. Leukocytosis/low grade fevers/possible pna RECS: 1. Mobilize OOB 2. ICS 3. Continue abx 4. Sputum GS/Cx 5. Diuresis DC planning? JOCELYN COPE MD, [facility] December 23, 2018 14:43
[2018-12-23] MEDS: metFORMIN 500 MG TAB PO SCH (18:50)
[2018-12-23] MEDS: LINAGLIPTIN 5 MG TABLET PO SCH (18:50)
[2018-12-23] MEDS: ATORVASTATIN 80 MG TAB PO SCH (20:59)
[2018-12-24] VITALS (9 sets, daily range): BP systolic 113–141; BP diastolic 58–66; PULSE 69–82; RESP 18
--- NOTE | 2018-12-24 06:37 | CONS ---
Assessment/Plan Assessment/Plan Hospital Course (Demo Recall) 1) CAD with NSTEMI pt to get bypass surgery later today WBC is WNL and blood cx are neg pt to get merrem prior to surgery due to e.coli in urine ok for surgery from ID perspective 12/22 - s/p surgery CABG on 12/18 CT was removed but left with wound vac at anterior chest surgical site 12/23 - wound vac is not draining at this time pain is better controlled 12/24 - wound vac was removed minimal chest pain 2)?UTI pt has a reason for polyuria due to his DM not in control he denies dysuria his u/a here is neg likely the e.coli in urine is colonization but since he is getting a johnson for his surgery today I agree with starting the meropenem prior to surgery repeat u/a and if again no significant wbc, rbc then will d/c merrem later 12/19 - repeat u/a was negative merrem has been stopped, no active UTI I will sign off on case, no active infection appreciated 12/22 - another repeat u/a shows mild hematuria and due to fevers zosyn was s tarted on 12/21 12/23 - johnson was removed and his urination is ok, no pain and urine is clear on zosyn day 3 12/24 - doing well day 4 of zosyn to d/c zosyn and start macrobid for 3 days 3) DM 4) EtOH abuse no alcohol for one week so far and no seizures pt had remote hx of alcohol induced seizures merrem is minimally associated with seizures but he is far enough away from alcohol withdrawal seizures that it should be ok 5) HTN 6) persistent low grade fevers 12/22 - the consistent fevers is typical for bacterial infections but more c/w some systemic allergy or drug fever no increase in eosinophils is seen though and no rash CXR showed R josie-hilar fullness but procalcitonin was neg (very mild elevation likely from recent chest surgery) continue with zosyn at present repeat procalcitonin in a.m. repeat u/a with urine cx stool cx were sent but unclear if he has actual diarrhea 12/23 - no diarrhea u/a still shows hematuria but johnson has since been removed fevers are abated for last 36 hours WBC is back to WNL, chemistries are pending continue with zosyn alone at present 12/24 no further fevers change zosyn to macrobid and continue for 3 days Consultation Date/Type/Reason Admit Date/Time Dec 15, 2018 at 16:16 Initial Consult Date 12/19/18 Type of Consult ID Requesting Provider: JUAN M VENEGAS Date/Time of Note DATE: 12/24/18 TIME: 06:33 24 HR Interval Summary Free Text/Dictation pt is doing well minimal pain to chest vac pump was removed no N, V breathing is good Exam/Review of Systems Exam Vitals Vital Signs Date Temp Pulse Resp B/P (MAP) Pulse Ox O2 O2 Flow FiO2 Time Delivery Rate 12/24/18 81 04:00 12/24/18 99.1 18 137/66 93 04:00 (89) 12/24/18 3.0 02:16 12/23/18 Nasal 20:42 Cannula 12/20/18 40 09:30 Intake and Output 12/23/18 12/23/18 12/24/18 1515:00 23:00 07:00 IntakeIntake Total 100 ml 1500 ml OutputOutput Total 2400 ml BalanceBalance 100 ml -900 ml Constitutional: alert, oriented Eyes: nl sclera ENMT: mucosa pink and moist Respiratory: clear to auscultation Cardiovascular: regular rate and rhythm, other (chest surgical site is without redness) Gastrointestinal: soft, non-tender Results Result Diagram: 12/23/18 0635 12/23/18 0635 Results 24hrs Laboratory Tests Test 12/23/18 06:35 12/23/18 07:58 12/23/18 11:41 12/23/18 17:15 White Blood Count 9.9 # Red Blood Count 2.84 L Hemoglobin 8.4 L Hematocrit 26.8 L Mean Corpuscular Volume 94.4 Mean Corpuscular 29.6 Hemoglobin Mean Corpuscular 31.3 L Hemoglobin Concent Red Cell Distribution 13.9 Width Platelet Count 510 H Mean Platelet Volume 10.0 Immature Granulocytes % 0.900 H Neutrophils % 66.4 Lymphocytes % 18.5 Monocytes % 9.2 Eosinophils % 4.1 Basophils % 0.9 Nucleated Red Blood 0.0 Cells % Immature Granulocytes # 0.090 H Neutrophils # 6.6 Lymphocytes # 1.8 Monocytes # 0.9 Eosinophils # 0.4 Basophils # 0.1 Nucleated Red Blood 0.0 Cells # Sodium Level 138 Potassium Level 4.1 Chloride Level 104 Carbon Dioxide Level 27 Anion Gap 7 Blood Urea Nitrogen 20 Creatinine 1.41 H Est Glomerular Filtrat 51 L Rate mL/min Glucose Level 179 Calcium Level 7.6 L Total Bilirubin 0.2 Direct Bilirubin 0.00 Indirect Bilirubin 0.2 Aspartate Amino 23 Transf (AST/SGOT) Alanine 33 Aminotransferase (ALT/SG PT) Alkaline Phosphatase 91 Total Protein 5.0 L Albumin 2.2 L Globulin 2.80 Albumin/Globulin Ratio 0.78 Procalcitonin 0.14 H Bedside Glucose 200 191 331 H Test 12/23/18 20:57 12/24/18 02:47 Bedside Glucose 307 H 275 H Medications Medication Current Medications Levalbuterol (Xopenex Neb) 1.25 mg Q4H RESP THERAPY PRN HHN sob Last administered on 12/18/18 08:41; Admin Dose 1.25 MG; Start 12/16/18 at 02:00 Albumin Human 250 ml @ 500 mls/hr PRN PRN IV CVP< 8, OR SBP<90 Last administered on 12/19/18 15:54; Admin Dose 500 MLS/HR; Start 12/18/18 at 20:30 Oxycodone/ Acetaminophen (Percocet (5/ 325)) 1 tab Q3H PRN PO PAIN LEVEL 1-5 Last administered on 12/23/18 21:08; Admin Dose 1 TAB; Start 12/18/18 at 20:30 Oxycodone/ Acetaminophen (Percocet (5/ 325)) 2 tab Q3H PRN PO PAIN LEVEL 6-10 Last administered on 12/23/18 04:10; Admin Dose 2 TAB; Start 12/18/18 at 20:30 Ondansetron HCl (Zofran Inj) 4 mg Q6H PRN IV NAUSEA AND/OR VOMITING; Start 12/18/18 at 20:30 Famotidine (Pepcid) 20 mg BID PO Last administered on 12/23/18 20:59; Admin Dose 20 MG; Start 12/18/18 at 21:00 Acetaminophen (Tylenol Tab) 650 mg Q3H PRN PO ELEVATED TEMPERATURE Last administered on 12/21/18 20:11; Admin Dose 650 MG; Start 12/18/18 at 20:30 Enoxaparin Sodium (Lovenox) 40 mg BID SC Last administered on 12/23/18 21:12; Admin Dose 40 MG; Start 12/18/18 at 21:00 Atorvastatin Calcium (Lipitor) 80 mg HS PO Last administered on 12/23/18 20:59; Admin Dose 80 MG; Start 12/18/18 at 21:00 Aspirin (Aspirin) 325 mg DAILY PO Last administered on 12/23/18 08:07; Admin Dose 325 MG; Start 12/19/18 at 09:00 Acetaminophen (Tylenol Liquid) 650 mg Q4H PRN NGT MILD PAIN(1-3)OR ELEVATED TEMP Last administered on 12/20/18 06:00; Admin Dose 650 MG; Start 12/20/18 at 06:00 Lorazepam (Ativan) 2 mg Q6H PRN IV Anxiety; Start 12/20/18 at 11:30 Hydralazine HCl (Apresoline) 10 mg Q6H PRN IV SBP>160; Start 12/20/18 at 11:30 Insulin Aspart (Novolog Insulin Pen) NOVOLOG *MILD* ALGORITHM WITH MEALS BEDTIME SC Last administered on 12/23/18 21:12; Admin Dose 5 UNIT; Start 12/20/18 at 13:00 Metoprolol Tartrate (Lopressor) 50 mg BID PO Last administered on 12/23/18 20:59; Admin Dose 50 MG; Start 12/20/18 at 14:30 Gabapentin (Neurontin) 300 mg TID PO Last administered on 12/23/18 20:59; Admin Dose 300 MG; Start 12/22/18 at 13:00 Insulin Glargine (Lantus) 30 units DAILY@0800 SC Last administered on 12/23/18 08:13; Admin Dose 30 UNITS; Start 12/23/18 at 08:00 Insulin Aspart (Novolog Insulin Pen) 10 unit WITH MEALS SC Last administered on 12/23/18 17:19; Admin Dose 10 UNIT; Start 12/22/18 at 17:55 Bumetanide (Bumex) 1 mg DAILY PO ; Start 12/24/18 at 09:00 Linagliptin (Tradjenta) 5 mg DAILY PO Last administered on 12/23/18 18:50; Admin Dose 5 MG; Start 12/23/18 at 18:30 Metformin HCl (Glucophage) 1,000 mg BID WITH MEALS PO Last administered on 12/23/18at 18:50; Admin Dose 1,000 MG; Start 12/23/18 at 18:30 GIULIANA MELENDEZ MD December 24, 2018 06:37
[2018-12-24] MEDS: INSULIN ASPART [NOVOLOG] 3 ML PEN SC SCH ×7 (08:08→21:51)
[2018-12-24] MEDS: metFORMIN 500 MG TAB PO SCH ×2 (08:11→17:21)
[2018-12-24] MEDS: BUMETANIDE 1 MG TAB PO SCH (08:11)
[2018-12-24] MEDS: FAMOTIDINE 20 MG TAB PO SCH ×2 (08:11→21:00)
[2018-12-24] MEDS: ASPIRIN 325 MG TAB PO SCH (08:11)
[2018-12-24] MEDS: LINAGLIPTIN 5 MG TABLET PO SCH (08:12)
[2018-12-24] MEDS: METOPROLOL 50 MG TAB PO SCH ×2 (08:12→21:03)
[2018-12-24] MEDS: GABAPENTIN 300 MG CAP PO SCH ×3 (08:12→20:59)
[2018-12-24] MEDS: BALSAM PERU/CASTOR OIL 60 GM TUBE TOP SCH ×2 (08:12→22:14)
[2018-12-24] MEDS: ENOXAPARIN 40 MG/0.4 ML SYG SC SCH (08:15)
[2018-12-24] MEDS: INSULIN GLARGINE [LANTus] (100 UNITS/ML) SYG SC SCH ×2 (08:32→12:00)
[2018-12-24] MEDS: NITROFURANTOIN (SR) 100 MG CAP PO SCH ×2 (08:45→21:00)
--- NOTE | 2018-12-24 09:41 | PN ---
DATE: 12/24/2018 SUBJECTIVE: The patient is stable. No events overnight. OBJECTIVE: VITAL SIGNS: Blood pressure is 130/64, pulse 75, respirations 18, temperature 98.7. HEENT: Head is normocephalic. NECK: Supple. HEART: Regular rate. LUNGS: Show diminished breath sounds at the base. ABDOMEN: Soft, nontender to palpation, without rebound or guarding. EXTREMITIES: Negative for clubbing, cyanosis, no edema. DERMATOLOGIC: No rashes. MUSCULOSKELETAL: No joint effusion. NEUROLOGIC: No change in exam. MEDICATIONS: Reviewed. LABORATORY DATA: Reviewed. ASSESSMENT AND PLAN: 1. Nonoliguric acute kidney injury with previous baseline creatinine of 1.1 to 1.2 mg/dL. Etiology of acute kidney injury is secondary to hemodynamics, coronary artery bypass graft, nephrotoxicity. T he patient appears to be entering maintenance phase of acute tubular necrosis as renal function stabi lized. Continue current treatment plans, supportive care, renally dose all medications. 2. Anemia. Continue to monitor hemoglobin and hematocrit levels. 3. Hypernatremia, improved. Continue to encourage free water intake. 4. Mineral bone disorder. Monitor calcium and phosphorus levels. 5. Respiratory failure. The patient is status post extubation. Continue to monitor. 6. Acute diastolic heart failure. The patient is compensated. Agree with oral Bumex. Monitor vickie l function, electrolytes and volume status closely. 7. Status post coronary artery bypass graft. Continue medical management. 8. Non-ST elevated myocardial infarction. Continue medical management. 9. Peripheral arterial disease. 10. Diabetes. Continue current insulin regimen. 11. Hypertension. Continue current blood pressure regimen. 12. Dyslipidemia. Dictated By: KIERAN KEARNEY DO NR/NTS Conf#: [id number] DID#: [id number] CC: RENU WHITE MD; JUAN M VENEGAS MD;*EndCC*
[2018-12-24] MEDS ORDERED: ALBUTEROL/IPRATROPIUM (NEB) 3 ML AMP HHN PRN (11:00)
[2018-12-24] MEDS: ASPIRIN 81 MG TAB PO SCH (12:00)
[2018-12-24] MEDS: CLOPIDOGREL 75 MG TAB PO SCH (12:18)
--- NOTE | 2018-12-24 13:40 | CONS ---
Assessment/Plan Assessment/Plan Hospital Course (Demo Recall) Acute diastolic CHF: EF 60%. Now euvolemic Acute respiratory failure: Intubated for CABG. Extubated 12/20 Acute renal failure: Cr slightly increased post-op. Likely ATN but also REYNA possible from cath. Stable with diuresis. Resolved CAD s/p CAB vessel SVG-LAD, SVG-OM1/OM2 (sequenced), SVG-PDA. DE ANDA not used as injured during prep. NSTEMI: Trop 1 and trended down. No active chest pain. Three vessel CAD on cath s/p CABG PAD s/p left leg balloon angioplasty and stenting 2016 DM HTN HL Alcohol abuse: no cirrhosis or bleeding. -ok for d/c home tomorrow from my perspective -bumex 1mg daily -ASA 81mg -plavix 75mg x 1 yr -lipitor 80mg -metoprolol 50mg BID Consultation Date/Type/Reason Admit Date/Time Dec 15, 2018 at 16:16 Initial Consult Date 12/16/18 Type of Consult Cardiology Requesting Provider: JUAN M VENEGAS Date/Time of Note DATE: 12/24/18 TIME: 13:38 24 HR Interval Summary Free Text/Dictation Doing well. No complaints. Ambulating without issues. Wants to go home. Exam/Review of Systems Vital Signs Vitals Vital Signs Date Temp Pulse Resp B/P (MAP) Pulse Ox O2 O2 Flow FiO2 Time Delivery Rate 12/24/18 98.4 79 18 132/66 97 Room Air 11:36 (88) 12/24/18 3.0 08:00 12/20/18 40 09:30 Intake and Output 12/23/18 12/23/18 12/24/18 1515:00 23:00 07:00 IntakeIntake Total 100 ml 1500 ml 300 ml OutputOutput Total 2400 ml BalanceBalance 100 ml -900 ml 300 ml Exam Constitutional: alert, oriented Psych: no complaints, nl mood/affect Head: normocephalic, atraumatic Neck: No jvd Respiratory: diminished breath sounds; No clear to auscultation Cardiovascular: regular rate and rhythm, edema (trace-1+) Gastrointestinal: soft, non-tender; No distended Neurological: nl mental status, nl speech Labs Result Diagram: 12/24/1844 12/24/18 0744 Results 24hrs Laboratory Tests Test 12/23/18 17:15 12/23/18 20:57 12/24/18 02:47 12/24/18 07:44 Bedside Glucose 331 H 307 H 275 H White Blood Count 9.3 Red Blood Count 2.98 L Hemoglobin 8.8 L Hematocrit 28.1 L Mean Corpuscular Volume 94.3 Mean Corpuscular 29.5 Hemoglobin Mean Corpuscular 31.3 L Hemoglobin Concent Red Cell Distribution 13.8 Width Platelet Count 591 H Mean Platelet Volume 9.8 Immature Granulocytes % 1.500 H Neutrophils % 62.6 Lymphocytes % 20.0 Monocytes % 10.4 Eosinophils % 4.4 Basophils % 1.1 Nucleated Red Blood 0.0 Cells % Immature Granulocytes # 0.140 H Neutrophils # 5.8 Lymphocytes # 1.9 Monocytes # 1.0 H Eosinophils # 0.4 Basophils # 0.1 Nucleated Red Blood 0.0 Cells # Sodium Level 137 Potassium Level 4.0 Chloride Level 103 Carbon Dioxide Level 30 Anion Gap 4 L Blood Urea Nitrogen 18 Creatinine 1.24 Est Glomerular Filtrat 59 L Rate mL/min Glucose Level 211 Calcium Level 8.0 L Phosphorus Level 3.0 Magnesium Level 2.0 Test 12/24/18 08:02 12/24/18 11:47 Bedside Glucose 224 H 165 Medications Medications Current Medications Levalbuterol (Xopenex Neb) 1.25 mg Q4H RESP THERAPY PRN HHN sob Last administered on 12/18/18 08:41; Admin Dose 1.25 MG; Start 12/16/18 at 02:00 Albumin Human 250 ml @ 500 mls/hr PRN PRN IV CVP< 8, OR SBP<90 Last administered on 12/19/18at 15:54; Admin Dose 500 MLS/HR; Start 12/18/18 at 20:30 Oxycodone/ Acetaminophen (Percocet (5/ 325)) 1 tab Q3H PRN PO PAIN LEVEL 1-5 Last administered on 12/23/18at 21:08; Admin Dose 1 TAB; Start 12/18/18 at 20:30 Oxycodone/ Acetaminophen (Percocet (5/ 325)) 2 tab Q3H PRN PO PAIN LEVEL 6-10 Last administered on 12/23/18at 04:10; Admin Dose 2 TAB; Start 12/18/18 at 20:30 Ondansetron HCl (Zofran Inj) 4 mg Q6H PRN IV NAUSEA AND/OR VOMITING; Start 12/18/18 at 20:30 Famotidine (Pepcid) 20 mg BID PO Last administered on 12/24/18 08:11; Admin Dose 20 MG; Start 12/18/18 at 21:00 Acetaminophen (Tylenol Tab) 650 mg Q3H PRN PO ELEVATED TEMPERATURE Last administered on 12/21/18 20:11; Admin Dose 650 MG; Start 12/18/18 at 20:30 Atorvastatin Calcium (Lipitor) 80 mg HS PO Last administered on 12/23/18 20:59; Admin Dose 80 MG; Start 12/18/18 at 21:00 Acetaminophen (Tylenol Liquid) 650 mg Q4H PRN NGT MILD PAIN(1-3)OR ELEVATED TEMP Last administered on 12/20/18 06:00; Admin Dose 650 MG; Start 12/20/18 at 06:00 Lorazepam (Ativan) 2 mg Q6H PRN IV Anxiety; Start 12/20/18 at 11:30 Hydralazine HCl (Apresoline) 10 mg Q6H PRN IV SBP>160; Start 12/20/18 at 11:30 Insulin Aspart (Novolog Insulin Pen) NOVOLOG *MILD* ALGORITHM WITH MEALS BEDTIME SC Last administered on 12/24/18 11:50; Admin Dose 1 UNIT; Start 12/20/18 at 13:00 Metoprolol Tartrate (Lopressor) 50 mg BID PO Last administered on 12/24/18 08:12; Admin Dose 50 MG; Start 12/20/18 at 14:30 Gabapentin (Neurontin) 300 mg TID PO Last administered on 12/24/18 12:18; Admin Dose 300 MG; Start 12/22/18 at 13:00 Bumetanide (Bumex) 1 mg DAILY PO Last administered on 12/24/18 08:11; Admin Dose 1 MG; Start 12/24/18 at 09:00 Linagliptin (Tradjenta) 5 mg DAILY PO Last administered on 12/24/18 08:12; Admin Dose 5 MG; Start 12/23/18 at 18:30 Metformin HCl (Glucophage) 1,000 mg BID WITH MEALS PO Last administered on 5/7/19at 08:11; Admin Dose 1,000 MG; Start 12/23/18 at 18:30 Nitrofurantoin Macrocrystals (Macrobid) 100 mg BID PO Last administered on 12/24/18at 08:45; Admin Dose 100 MG; Start 12/24/18 at 09:00 Insulin Aspart (Novolog Insulin Pen) 12 unit WITH MEALS SC Last administered on 12/24/18at 11:50; Admin Dose 12 UNIT; Start 12/24/18 at 11:50 Insulin Glargine (Lantus) 35 units DAILY@0800 SC ; Start 12/24/18 at 12:00 Aspirin (Aspirin) 81 mg DAILY PO ; Start 12/24/18 at 12:00 Clopidogrel Bisulfate (plaVIX) 75 mg DAILY PO Last administered on 12/24/18at 12:18; Admin Dose 75 MG; Start 12/24/18 at 12:00 Enoxaparin Sodium (Lovenox) 40 mg DAILY SC ; Start 12/25/18 at 09:00 Albuterol/ Ipratropium (Duoneb) 3 ml Q6HWA RESP THERAPY HHN ; Start 12/24/18 at 14:00 Albuterol/ Ipratropium (Duoneb) 3 ml Q2H RESP THERAPY PRN HHN shortness of breath; Start 12/24/18 at 11:00 Budesonide (Pulmicort (Neb)) 0.5 mg BID RESP THERAPY HHN ; Start 12/24/18 at 12:00 JUAN M VENEGAS December 24, 2018 13:40
--- NOTE | 2018-12-24 14:17 | PN ---
Date/Time of Note Date/Time of Note DATE: 12/24/18 TIME: 14:16 Objective Vitals Vital Signs Date Temp Pulse Resp B/P (MAP) Pulse Ox O2 O2 Flow FiO2 Time Delivery Rate 12/24/18 98.4 79 18 132/66 97 Room Air 11:36 (88) 12/24/18 3.0 08:00 12/20/18 40 09:30 Intake and Output 12/23/18 12/23/18 12/24/18 1515:00 23:00 07:00 IntakeIntake Total 100 ml 1500 ml 300 ml OutputOutput Total 2400 ml BalanceBalance 100 ml -900 ml 300 ml Results Result Diagram: 12/24/18 0744 12/24/1844 Medications Medications Current Medications Levalbuterol (Xopenex Neb) 1.25 mg Q4H RESP THERAPY PRN HHN sob Last administer ed on 12/18/18 08:41; Admin Dose 1.25 MG; Start 12/16/18 at 02:00 Albumin Human 250 ml @ 500 mls/hr PRN PRN IV CVP< 8, OR SBP<90 Last administered on 12/19/18 15:54; Admin Dose 500 MLS/HR; Start 12/18/18 at 20:30 Oxycodone/ Acetaminophen (Percocet (5/ 325)) 1 tab Q3H PRN PO PAIN LEVEL 1-5 Last administered on 12/23/18at 21:08; Admin Dose 1 TAB; Start 12/18/18 at 20:30 Oxycodone/ Acetaminophen (Percocet (5/ 325)) 2 tab Q3H PRN PO PAIN LEVEL 6-10 Last administered on 12/23/18 04:10; Admin Dose 2 TAB; Start 12/18/18 at 20:30 Ondansetron HCl (Zofran Inj) 4 mg Q6H PRN IV NAUSEA AND/OR VOMITING; Start 12/18/18 at 20:30 Famotidine (Pepcid) 20 mg BID PO Last administered on 12/24/18 08:11; Admin Dos e 20 MG; Start 12/18/18 at 21:00 Acetaminophen (Tylenol Tab) 650 mg Q3H PRN PO ELEVATED TEMPERATURE Last administered on 12/21/18 20:11; Admin Dose 650 MG; Start 12/18/18 at 20:30 Atorvastatin Calcium (Lipitor) 80 mg HS PO Last administered on 12/23/18 20:59; Admin Dose 80 MG; Start 12/18/18 at 21:00 Acetaminophen (Tylenol Liquid) 650 mg Q4H PRN NGT MILD PAIN(1-3)OR ELEVATED TEMP Last administered on 12/20/18 06:00; Admin Dose 650 MG; Start 12/20/18 at 06:00 Lorazepam (Ativan) 2 mg Q6H PRN IV Anxiety; Start 12/20/18 at 11:30 Hydralazine HCl (Apresoline) 10 mg Q6H PRN IV SBP>160; Start 12/20/18 at 11:30 Insulin Aspart (Novolog Insulin Pen) NOVOLOG *MILD* ALGORITHM WITH MEALS BEDTIME SC Last administered on 12/24/18 11:50; Admin Dose 1 UNIT; Start 12/20/18 at 13:00 Metoprolol Tartrate (Lopressor) 50 mg BID PO Last administered on 12/24/18 08:12; Admin Dose 50 MG; Start 12/20/18 at 14:30 Gabapentin (Neurontin) 300 mg TID PO Last administered on 12/24/18 12:18; Admin Dose 300 MG; Start 12/22/18 at 13:00 Bumetanide (Bumex) 1 mg DAILY PO Last administered on 12/24/18 08:11; Admin Dose 1 MG; Start 12/24/18 at 09:00 Linagliptin (Tradjenta) 5 mg DAILY PO Last administered on 12/24/18 08:12; Admin Dose 5 MG; Start 12/23/18 at 18:30 Metformin HCl (Glucophage) 1,000 mg BID WITH MEALS PO Last administered on 12/24/18 08:11; Admin Dose 1,000 MG; Start 12/23/18 at 18:30 Nitrofurantoin Macrocrystals (Macrobid) 100 mg BID PO Last administered on 12/24/18 08:45; Admin Dose 100 MG; Start 12/24/18 at 09:00 Insulin Aspart (Novolog Insulin Pen) 12 unit WITH MEALS SC Last administered on 12/24/18 11:50; Admin Dose 12 UNIT; Start 12/24/18 at 11:50 Insulin Glargine (Lantus) 35 units DAILY@0800 SC ; Start 12/24/18 at 12:00 Aspirin (Aspirin) 81 mg DAILY PO ; Start 12/24/18 at 12:00 Clopidogrel Bisulfate (plaVIX) 75 mg DAILY PO Last administered on 12/24/18at 12:18; Admin Dose 75 MG; Start 12/24/18 at 12:00 Enoxaparin Sodium (Lovenox) 40 mg DAILY SC ; Start 12/25/18 at 09:00 Albuterol/ Ipratropium (Duoneb) 3 ml Q6HWA RESP THERAPY HHN ; Start 12/24/18 at 14:00 Albuterol/ Ipratropium (Duoneb) 3 ml Q2H RESP THERAPY PRN HHN shortness of breath; Start 12/24/18 at 11:00 Budesonide (Pulmicort (Neb)) 0.5 mg BID RESP THERAPY HHN ; Start 12/24/18 at 12:00 VTE Prophylaxis Risk score (from [facility] [place]0 risk: 11 SCD applied (from [facility] [place]): Yes Lines/Catheters IV Catheter Type: Hooks in Place: No Assessment/Plan Hospital Course Subjective Patient doing well, wound vac removed. Objective Physical exam General: Patient is laying in bed and answers questions appropriately Mentation: Patient is alert and oriented 4, Head: Normocephalic atraumatic Eyes: EOMI, pupils reactive to light Neck: Supple, nontender, midline Respiratory: Clear to auscultation bilaterally Cardiovascular: regular rate, no obvious murmurs Gastrointestinal: non-tender to palpation, bowel sounds heard. Neurological: Moves all extremities spontaneously Skin: Surgical site bandaged, CDI ASSESSMENT & PLAN This is a 63-year-old male with comorbidities including diabetes mellitus, left foot osteomyelitis, hypertension, obesity, chronic kidney disease, peripheral artery disease, and alcohol abuse. The patient came to the emergency room with chief complaint of abdominal pain, distension and occasional radiation of pain to the chest. He was noticed to have NSTEMI. 1. NSTEMI. -S/P LHC on 12/17/2018 that showed significant 3-vessel CAD. -S/P CABG x4, SVG to LAD, SVG to OM1 sequenced to OM2, SVG to PDA on 12/18/2018. -extubated 12/20/18 -wound vac removed -doing well Mild fevers, resolving -Patient asymptomatic -ID on board, Dr. Tsai -IV antibiotic -Cultures -UA neg 2. Acute respiratory failure. -Resolving significantly, on nasal cannula, will attempt to titrate off. -Continue supplemental O2. -Continue inhaled bronchodilators. -resolving - 3. Fluid overload. -Etiology could be multifactorial. -2D echocardiogram showing preserved LVEF. -Known history of significant proteinuria, suggesting nephrotic syndrome. -Diuretics as clinically indicated. 4. Diabetes mellitus type 2. -Hemoglobin A1c 10.7. -Currently on insulin drip. 5. Peripheral artery disease. -Status post left tibioperoneal trunk balloon angioplasty, left femoral popliteal artery stenting, and left femoral popliteal artery balloon angioplasty on 03/22/2017. 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 Hypertension. -Continue antihypertensives. 7. Pulmonary hypertension. -PA systolic pressure of 52 mm Hg. 8. E. coli ESBL in urine wound 12/18/2018. resolved -[place] count <10,000 CFU per mL. -completed course of carbapenams -Repeat urine studies negative. -S/P ID evaluation. 9. Obesity. -BMI 31.5 kg/m -Weight reduction advised. 10. Normocytic, normochromic anemia. -Monitor H&H closely. 11. Alcohol abuse. -Continue multivitamins. 12. Generalized anxiety. -PRN benzodiazepines. 13. ANGEL. -Monitor BUN and creatinine closely. -Use nephrotoxic drugs with caution. -Nephrology on board. DVT proph: -40 lovenox daily 16. Plan. -Patient doing well, continue current medication and diuresis, starting asa/plavix tomorrow. RENU WHITE December 24, 2018 14:17
--- NOTE | 2018-12-24 14:38 | CONS ---
Consult Date/Type/Reason Admit Date/Time Dec 15, 2018 at 16:16 Initial Consult Date 12/19/18 Type of Consult Pulmonary Requesting Provider: JUAN M VENEGAS Date/Time of Note DATE: 12/24/18 TIME: 14:37 Subjective Patient appears comfortable this morning. Objective Vital Signs Date Temp Pulse Resp B/P (MAP) Pulse Ox O2 O2 Flow FiO2 Time Delivery Rate 12/24/18 98.4 79 18 132/66 97 Room Air 11:36 (88) 12/24/18 3.0 08:00 12/20/18 40 09:30 Intake and Output 12/23/18 12/23/18 12/24/18 1515:00 23:00 07:00 IntakeIntake Total 100 ml 1500 ml 300 ml OutputOutput Total 2400 ml BalanceBalance 100 ml -900 ml 300 ml Exam GENERAL: Elderly gentleman comfortable at rest VITAL SIGNS: per chart NECK: Supple. No JVD or lymphadenopathy. CARDIAC EXAM: S1, S2. No added sounds or murmurs. CHEST: Diminished air entry both bases ABDOMEN: Soft, nontender. No guarding or rebound. EXTREMITIES: No cyanosis, clubbing or edema. NEUROLOGIC: Generalized weakness. No focal deficits. Vent Setting Ventilator Support Mode: CPAP, PS Fraction of Inspired Oxygen pe: 40 Positive End Expiratory Pressu: 5.0 Results/Medications Result Diagram: 12/24/18 0744 12/24/18 0744 Results 24 hrs Laboratory Tests Test 12/23/18 17:15 12/23/18 20:57 12/24/18 02:47 12/24/18 07:44 Bedside Glucose 331 H 307 H 275 H White Blood Count 9.3 Red Blood Count 2.98 L Hemoglobin 8.8 L Hematocrit 28.1 L Mean Corpuscular Volume 94.3 Mean Corpuscular 29.5 Hemoglobin Mean Corpuscular 31.3 L Hemoglobin Concent Red Cell Distribution 13.8 Width Platelet Count 591 H Mean Platelet Volume 9.8 Immature Granulocytes % 1.500 H Neutrophils % 62.6 Lymphocytes % 20.0 Monocytes % 10.4 Eosinophils % 4.4 Basophils % 1.1 Nucleated Red Blood 0.0 Cells % Immature Granulocytes # 0.140 H Neutrophils # 5.8 Lymphocytes # 1.9 Monocytes # 1.0 H Eosinophils # 0.4 Basophils # 0.1 Nucleated Red Blood 0.0 Cells # Sodium Level 137 Potassium Level 4.0 Chloride Level 103 Carbon Dioxide Level 30 Anion Gap 4 L Blood Urea Nitrogen 18 Creatinine 1.24 Est Glomerular Filtrat 59 L Rate mL/min Glucose Level 211 Calcium Level 8.0 L Phosphorus Level 3.0 Magnesium Level 2.0 Test 12/24/18 08:02 12/24/18 11:47 Bedside Glucose 224 H 165 Medications Current Medications Levalbuterol (Xopenex Neb) 1.25 mg Q4H RESP THERAPY PRN HHN sob Last administered on 12/18/18 08:41; Admin Dose 1.25 MG; Start 12/16/18 at 02:00 Albumin Human 250 ml @ 500 mls/hr PRN PRN IV CVP< 8, OR SBP<90 Last a dministered on 12/19/18 15:54; Admin Dose 500 MLS/HR; Start 12/18/18 at 20:30 Oxycodone/ Acetaminophen (Percocet (5/ 325)) 1 tab Q3H PRN PO PAIN LEVEL 1-5 Last administered on 12/23/18 21:08; Admin Dose 1 TAB; Start 12/18/18 at 20:30 Oxycodone/ Acetaminophen (Percocet (5/ 325)) 2 tab Q3H PRN PO PAIN LEVEL 6-10 Last administered on 12/23/18 04:10; Admin Dose 2 TAB; Start 12/18/18 at 20:30 Ondansetron HCl (Zofran Inj) 4 mg Q6H PRN IV NAUSEA AND/OR VOMITING; Start 12/18/18 at 20:30 Famotidine (Pepcid) 20 mg BID PO Last administered on 12/24/18 08:11; Admin Dose 20 MG; Start 12/18/18 at 21:00 Acetaminophen (Tylenol Tab) 650 mg Q3H PRN PO ELEVATED TEMPERATURE Last administered on 12/21/18 20:11; Admin Dose 650 MG; Start 12/18/18 at 20:30 Atorvastatin Calcium (Lipitor) 80 mg HS PO Last administered on 12/23/18 20:59; Admin Dose 80 MG; Start 12/18/18 at 21:00 Acetaminophen (Tylenol Liquid) 650 mg Q4H PRN NGT MILD PAIN(1-3)OR ELEVATED TEMP Last administered on 5/3/19at 06:00; Admin Dose 650 MG; Start 12/20/18 at 06:00 Lorazepam (Ativan) 2 mg Q6H PRN IV Anxiety; Start 12/20/18 at 11:30 Hydralazine HCl (Apresoline) 10 mg Q6H PRN IV SBP>160; Start 12/20/18 at 11:30 Insulin Aspart (Novolog Insulin Pen) NOVOLOG *MILD* ALGORITHM WITH MEALS BEDTIME SC Last administered on 12/24/18 11:50; Admin Dose 1 UNIT; Start 12/20/18 at 13:00 Metoprolol Tartrate (Lopressor) 50 mg BID PO Last administered on 12/24/18 08:12; Admin Dose 50 MG; Start 12/20/18 at 14:30 Gabapentin (Neurontin) 300 mg TID PO Last administered on 12/24/18 12:18; Admin Dose 300 MG; Start 12/22/18 at 13:00 Bumetanide (Bumex) 1 mg DAILY PO Last administered on 12/24/18 08:11; Admin Dose 1 MG; Start 12/24/18 at 09:00 Linagliptin (Tradjenta) 5 mg DAILY PO Last administered on 12/24/18 08:12; Admin Dose 5 MG; Start 12/23/18 at 18:30 Metformin HCl (Glucophage) 1,000 mg BID WITH MEALS PO Last administered on 12/24/18 08:11; Admin Dose 1,000 MG; Start 12/23/18 at 18:30 Nitrofurantoin Macrocrystals (Macrobid) 100 mg BID PO Last administered on 12/24/18 08:45; Admin Dose 100 MG; Start 12/24/18 at 09:00 Insulin Aspart (Novolog Insulin Pen) 12 unit WITH MEALS SC Last administered on 12/24/18 11:50; Admin Dose 12 UNIT; Start 12/24/18 at 11:50 Insulin Glargine (Lantus) 35 units DAILY@0800 SC ; Start 12/24/18 at 12:00 Aspirin (Aspirin) 81 mg DAILY PO ; Start 12/24/18 at 12:00 Clopidogrel Bisulfate (plaVIX) 75 mg DAILY PO Last administered on 12/24/18 12:18; Admin Dose 75 MG; Start 12/24/18 at 12:00 Enoxaparin Sodium (Lovenox) 40 mg DAILY SC ; Start 12/25/18 at 09:00 Albuterol/ Ipratropium (Duoneb) 3 ml Q6HWA RESP THERAPY HHN ; Start 12/24/18 at 14:00 Albuterol/ Ipratropium (Duoneb) 3 ml Q2H RESP THERAPY PRN HHN shortness of breath; Start 12/24/18 at 11:00 Budesonide (Pulmicort (Neb)) 0.5 mg BID RESP THERAPY HHN ; Start 12/24/18 at 12:00 Assessment/Plan Hospital Course (Demo Recall) Assessment 1. s/p Respiratory Failure 2. s/p CABG 3. NSTEMI 4. ANGEL 5. CHF 6. Leukocytosis/low grade fevers/possible pna RECS: 1. Mobilize OOB 2. ICS 3. Continue abx 4. Sputum GS/Cx 5. Diuresis DC planning? Consider transfer to [facility]. JOCELYN COPE MD, [facility] December 24, 2018 14:38
[2018-12-24] MEDS: BUDESONIDE (NEB) 0.5MG/2ML AMP HHN SCH ×2 (15:22→20:00)
[2018-12-24] MEDS: ALBUTEROL/IPRATROPIUM (NEB) 3 ML AMP HHN SCH ×2 (15:36→21:27)
[2018-12-24] MEDS: OXYCODONE/ACETAMINOPHEN (5/325) TAB PO PRN ×2 (17:42→22:15)
[2018-12-24] MEDS: ATORVASTATIN 80 MG TAB PO SCH (21:00)
[2018-12-25] VITALS (11 sets, daily range): BP systolic 109–148; BP diastolic 57–70; PULSE 70–88; RESP 18–20
[2018-12-25] MEDS: INSULIN ASPART [NOVOLOG] 3 ML PEN SC SCH ×7 (08:13→20:39)
[2018-12-25] MEDS: FAMOTIDINE 20 MG TAB PO SCH ×2 (08:22→20:38)
[2018-12-25] MEDS: metFORMIN 500 MG TAB PO SCH ×2 (08:22→17:19)
[2018-12-25] MEDS: ASPIRIN 81 MG TAB PO SCH (08:22)
[2018-12-25] MEDS: NITROFURANTOIN (SR) 100 MG CAP PO SCH ×2 (08:22→20:37)
[2018-12-25] MEDS: BUMETANIDE 1 MG TAB PO SCH (08:22)
[2018-12-25] MEDS: GABAPENTIN 300 MG CAP PO SCH ×3 (08:22→20:40)
[2018-12-25] MEDS: LINAGLIPTIN 5 MG TABLET PO SCH (08:22)
[2018-12-25] MEDS: CLOPIDOGREL 75 MG TAB PO SCH (08:22)
[2018-12-25] MEDS: METOPROLOL 50 MG TAB PO SCH ×2 (08:23→20:38)
[2018-12-25] MEDS: BALSAM PERU/CASTOR OIL 60 GM TUBE TOP SCH ×2 (08:24→20:41)
[2018-12-25] MEDS: ALBUTEROL/IPRATROPIUM (NEB) 3 ML AMP HHN SCH ×3 (08:30→20:59)
[2018-12-25] MEDS: ENOXAPARIN 40 MG/0.4 ML SYG SC SCH (08:31)
[2018-12-25] MEDS: INSULIN GLARGINE [LANTus] (100 UNITS/ML) SYG SC SCH (08:31)
[2018-12-25] MEDS: BUDESONIDE (NEB) 0.5MG/2ML AMP HHN SCH ×2 (08:31→20:59)
--- NOTE | 2018-12-25 09:03 | PN ---
DATE: 12/25/2018 SUBJECTIVE: The patient is stable. No events overnight. No fevers, chills, nausea, vomiting. OBJECTIVE: VITAL SIGNS: Blood pressure is 148/70, pulse 79, respiration 18, temperature 98.6. HEENT: Head is normocephalic. NECK: Supple. HEART: Regular rate. LUNGS: Show diminished breath sounds at the base. ABDOMEN: Soft, nontender to palpation without rebound or guarding. EXTREMITIES: Negative for clubbing, cyanosis, no edema. DERMATOLOGIC: No rashes. MUSCULOSKELETAL: No joint effusion. NEUROLOGIC: No change in exam. MEDICATIONS: Reviewed. LABORATORY DATA: Has been reviewed. ASSESSMENT AND PLAN: 1. Nonoliguric acute kidney injury with previous baseline creatinine of 1.1 to 1.2 mg/dL. Etiology of acute kidney injury secondary to acute tubular necrosis. Renal function is improved. Continue cu rrent treatment plan, supportive care, renally dose all meds. 2. Anemia. Monitor hemoglobin and hematocrit levels. 3. Hypernatremia, improved. Continue to encourage free water intake. 4. Mineral bone disorder. Monitor calcium and phosphorus levels. 5. Acute diastolic heart failure. The patient appears compensated. Continue medical management. C ontinue oral diuretic therapy, adjust as needed. 6. Status post CABG. Continue to monitor. 7. Non-ST elevation myocardial infarction. Continue medical management. 8. Peripheral vascular disease. 9. Diabetes. Continue current insulin regimen. 10. Hypertension. Continue current blood pressure regimen. 11. Dyslipidemia. Dictated By: KIERAN CAMARENA/SOFIYA Conf#: [id number] DID#: [id number] CC: RENU WHITE MD;*EndCC*
[2018-12-25] MEDS: OXYCODONE/ACETAMINOPHEN (5/325) TAB PO PRN ×2 (09:25→18:14)
--- NOTE | 2018-12-25 12:42 | CONS ---
Assessment/Plan Assessment/Plan Hospital Course (Demo Recall) Acute diastolic CHF: EF 60%. Now euvolemic Acute respiratory failure: Intubated for CABG. Extubated 12/20 Acute renal failure: Cr slightly increased post-op. Likely ATN but also REYNA possible from cath. Stable with diuresis. Resolved CAD s/p CAB vessel SVG-LAD, SVG-OM1/OM2 (sequenced), SVG-PDA. DE ANDA not used as injured during prep. NSTEMI: Trop 1 and trended down. No active chest pain. Three vessel CAD on cath s/p CABG PAD s/p left leg balloon angioplasty and stenting 2016 DM HTN HL Alcohol abuse: no cirrhosis or bleeding. -dispo per primary -bumex 1mg daily -ASA 81mg -plavix 75mg x 1 yr -lipitor 80mg -metoprolol 50mg BID Consultation Date/Type/Reason Admit Date/Time Dec 15, 2018 at 16:16 Initial Consult Date 12/16/18 Type of Consult Cardiology Requesting Provider: JUAN M VENEGAS Date/Time of Note DATE: 12/25/18 TIME: 12:41 24 HR Interval Summary Free Text/Dictation No events. Had desats with ambulation.No SOB or CP though Exam/Review of Systems Vital Signs Vitals Vital Signs Date Temp Pulse Resp B/P (MAP) Pulse Ox O2 O2 Flow FiO2 Time Delivery Rate 12/25/18 98.0 75 18 109/57 95 Nasal 11:17 (74) Cannula 12/25/18 2.0 10:30 12/24/18 30 21:15 Intake and Output 12/24/18 12/24/18 12/25/18 1515:00 23:00 07:00 IntakeIntake Total 1000 ml 500 ml BalanceBalance 1000 ml 500 ml Exam Constitutional: alert, oriented Psych: no complaints, nl mood/affect Head: normocephalic, atraumatic Neck: supple; No jvd Respiratory: crackles/rales (mild at bases); No clear to auscultation Cardiovascular: edema (1+) Gastrointestinal: soft, non-tender; No distended Neurological: nl mental status, nl speech Labs Result Diagram: 12/25/18 0750 12/25/18 0750 Results 24hrs Laboratory Tests Test 12/24/18 16:58 12/24/18 20:57 12/25/18 07:50 12/25/18 08:03 Bedside Glucose 155 197 197 White Blood Count 9.6 Red Blood Count 2.98 L Hemoglobin 9.0 L Hematocrit 28.0 L Mean Corpuscular 94.0 Volume Mean Corpuscular 30.2 Hemoglobin Mean Corpuscular 32.1 Hemoglobin Concent Red Cell Distribution 13.8 Width Platelet Count 645 H Mean Platelet Volume 9.7 Immature Granulocytes 1.700 H % Neutrophils % 63.5 Lymphocytes % 20.4 Monocytes % 9.7 Eosinophils % 3.6 Basophils % 1.1 Nucleated Red Blood 0.0 Cells % Immature Granulocytes 0.160 H # Neutrophils # 6.1 Lymphocytes # 2.0 Monocytes # 0.9 Eosinophils # 0.4 Basophils # 0.1 Nucleated Red Blood 0.0 Cells # Sodium Level 138 Potassium Level 4.2 Chloride Level 104 Carbon Dioxide Level 27 Anion Gap 7 Blood Urea Nitrogen 17 Creatinine 1.17 Est Glomerular > 60 Filtrat Rate mL/min Glucose Level 193 Calcium Level 8.2 L Phosphorus Level 3.2 Magnesium Level 2.0 Test 12/25/18 11:22 12/25/18 11:22 Bedside Glucose 229 H Lab Scanned Report REFERENCE LAB Medications Medications Current Medications Levalbuterol (Xopenex Neb) 1.25 mg Q4H RESP THERAPY PRN HHN sob Last administered on 12/18/18 08:41; Admin Dose 1.25 MG; Start 12/16/18 at 02:00 Albumin Human 250 ml @ 500 mls/hr PRN PRN IV CVP< 8, OR SBP<90 Last administered on 12/19/18 15:54; Admin Dose 500 MLS/HR; Start 12/18/18 at 20:30 Oxycodone/ Acetaminophen (Percocet (5/ 325)) 1 tab Q3H PRN PO PAIN LEVEL 1-5 Last administered on 12/24/18 22:15; Admin Dose 1 TAB; Start 12/18/18 at 20:30 Oxycodone/ Acetaminophen (Percocet (5/ 325)) 2 tab Q3H PRN PO PAIN LEVEL 6-10 Last administered on 12/25/18 09:25; Admin Dose 2 TAB; Start 12/18/18 at 20:30 Ondansetron HCl (Zofran Inj) 4 mg Q6H PRN IV NAUSEA AND/OR VOMITING; Start 12/18/18 at 20:30 Famotidine (Pepcid) 20 mg BID PO Last administered on 12/25/18 08:22; Admin Dose 20 MG; Start 12/18/18 at 21:00 Acetaminophen (Tylenol Tab) 650 mg Q3H PRN PO ELEVATED TEMPERATURE Last administered on 12/21/18 20:11; Admin Dose 650 MG; Start 12/18/18 at 20:30 Atorvastatin Calcium (Lipitor) 80 mg HS PO Last administered on 12/24/18 21:00; Admin Dose 80 MG; Start 12/18/18 at 21:00 Acetaminophen (Tylenol Liquid) 650 mg Q4H PRN NGT MILD PAIN(1-3)OR ELEVATED TEMP Last administered on 12/20/18 06:00; Admin Dose 650 MG; Start 12/20/18 at 06:00 Lorazepam (Ativan) 2 mg Q6H PRN IV Anxiety; Start 12/20/18 at 11:30 Hydralazine HCl (Apresoline) 10 mg Q6H PRN IV SBP>160; Start 12/20/18 at 11:30 Insulin Aspart (Novolog Insulin Pen) NOVOLOG *MILD* ALGORITHM WITH MEALS BED TIME SC Last administered on 12/25/18 11:45; Admin Dose 3 UNIT; Start 12/20/18 at 13:00 Metoprolol Tartrate (Lopressor) 50 mg BID PO Last administered on 12/25/18 08:23; Admin Dose 50 MG; Start 12/20/18 at 14:30 Gabapentin (Neurontin) 300 mg TID PO Last administered on 12/25/18 12:01; Admin Dose 300 MG; Start 12/22/18 at 13:00 Bumetanide (Bumex) 1 mg DAILY PO Last administered on 12/25/18 08:22; Admin Dose 1 MG; Start 12/24/18 at 09:00 Linagliptin (Tradjenta) 5 mg DAILY PO Last administered on 12/25/18 08:22; Admin Dose 5 MG; Start 12/23/18 at 18:30 Metformin HCl (Glucophage) 1,000 mg BID WITH MEALS PO Last administered on 12/25/18 08:22; Admin Dose 1,000 MG; Start 12/23/18 at 18:30 Nitrofurantoin Macrocrystals (Macrobid) 100 mg BID PO Last administered on 12/25/18 08:22; Admin Dose 100 MG; Start 12/24/18 at 09:00 Aspirin (Aspirin) 81 mg DAILY PO Last administered on 12/25/18 08:22; Admin Dose 81 MG; Start 12/24/18 at 12:00 Clopidogrel Bisulfate (plaVIX) 75 mg DAILY PO Last administered on 12/25/18 08:22; Admin Dose 75 MG; Start 12/24/18 at 12:00 Enoxaparin Sodium (Lovenox) 40 mg DAILY SC Last administered on 12/25/18 08:31; Admin Dose 40 MG; Start 12/25/18 at 09:00 Albuterol/ Ipratropium (Duoneb) 3 ml Q6HWA RESP THERAPY HHN Last administered on 12/25/18 08:30; Admin Dose 3 ML; Start 12/24/18 at 14:00 Albuterol/ Ipratropium (Duoneb) 3 ml Q2H RESP THERAPY PRN HHN shortness of breath; Start 12/24/18 at 11:00 Budesonide (Pulmicort (Neb)) 0.5 mg BID RESP THERAPY HHN Last administered on 12/25/18 08:31; Admin Dose 0.5 MG; Start 12/24/18 at 12:00 Insulin Aspart (Novolog Insulin Pen) 15 unit WITH MEALS SC Last administered on 12/25/18 11:45; Admin Dose 15 UNIT; Start 12/25/18 at 11:50 Insulin Glargine (Lantus) 40 units DAILY@0800 SC ; Start 12/26/18 at 08:00 JUAN M VENEGAS December 25, 2018 12:42
--- NOTE | 2018-12-25 15:06 | PN ---
Date/Time of Note Date/Time of Note DATE: 12/25/18 TIME: 15:05 Objective Vitals Vital Signs Date Temp Pulse Resp B/P (MAP) Pulse Ox O2 O2 Flow FiO2 Time Delivery Rate 12/25/18 83 18 93 14:14 12/25/18 98.0 109/57 Nasal 11:17 (74) Cannula 12/25/18 2.0 10:30 12/24/18 30 21:15 Intake and Output 12/24/18 12/24/18 12/25/18 1515:00 23:00 07:00 IntakeIntake Total 1000 ml 500 ml BalanceBalance 1000 ml 500 ml Results Result Diagram: 12/25/18 0750 12/25/18 0750 Medications Medications Current Medications Levalbuterol (Xopenex Neb) 1.25 mg Q4H RESP THERAPY PRN HHN sob Last administered on 12/18/18 08:41; Admin Dose 1.25 MG; Start 12/16/18 at 02:00 Albumin Human 250 ml @ 500 mls/hr PRN PRN IV CVP< 8, OR SBP<90 Last administered on 12/19/18 15:54; Admin Dose 500 MLS/HR; Start 12/18/18 at 20:30 Oxycodone/ Acetaminophen (Percocet (5/ 325)) 1 tab Q3H PRN PO PAIN LEVEL 1-5 Last administered on 12/24/18 22:15; Admin Dose 1 TAB; Start 12/18/18 at 20:30 Oxycodone/ Acetaminophen (Percocet (5/ 325)) 2 tab Q3H PRN PO PAIN LEVEL 6-10 Last administered on 12/25/18 09:25; Admin Dose 2 TAB; Start 12/18/18 at 20:30 Ondansetron HCl (Zofran Inj) 4 mg Q6H PRN IV NAUSEA AND/OR VOMITING; Start 12/18/18 at 20:30 Famotidine (Pepcid) 20 mg BID PO Last administered on 12/25/18 08:22; Admin Dose 20 MG; Start 12/18/18 at 21:00 Acetaminophen (Tylenol Tab) 650 mg Q3H PRN PO ELEVATED TEMPERATURE Last admi nistered on 12/21/18 20:11; Admin Dose 650 MG; Start 12/18/18 at 20:30 Atorvastatin Calcium (Lipitor) 80 mg HS PO Last administered on 12/24/18 21:00; Admin Dose 80 MG; Start 12/18/18 at 21:00 Acetaminophen (Tylenol Liquid) 650 mg Q4H PRN NGT MILD PAIN(1-3)OR ELEVATED TEMP Last administered on 12/20/18 06:00; Admin Dose 650 MG; Start 12/20/18 at 06:00 Lorazepam (Ativan) 2 mg Q6H PRN IV Anxiety; Start 12/20/18 at 11:30 Hydralazine HCl (Apresoline) 10 mg Q6H PRN IV SBP>160; Start 12/20/18 at 11:30 Insulin Aspart (Novolog Insulin Pen) NOVOLOG *MILD* ALGORITHM WITH MEALS BEDTIME SC Last administered on 12/25/18 11:45; Admin Dose 3 UNIT; Start 12/20/18 at 13:00 Metoprolol Tartrate (Lopressor) 50 mg BID PO Last administered on 12/25/18 08:23; Admin Dose 50 MG; Start 12/20/18 at 14:30 Gabapentin (Neurontin) 300 mg TID PO Last administered on 12/25/18 12:01; Admin Dose 300 MG; Start 12/22/18 at 13:00 Bumetanide (Bumex) 1 mg DAILY PO Last administered on 12/25/18 08:22; Admin Dose 1 MG; Start 12/24/18 at 09:00 Linagliptin (Tradjenta) 5 mg DAILY PO Last administered on 12/25/18 08:22; Admin Dose 5 MG; Start 12/23/18 at 18:30 Metformin HCl (Glucophage) 1,000 mg BID WITH MEALS PO Last administered on 12/25/18 08:22; Admin Dose 1,000 MG; Start 12/23/18 at 18:30 Nitrofurantoin Macrocrystals (Macrobid) 100 mg BID PO Last administered on 12/25/18 08:22; Admin Dose 100 MG; Start 12/24/18 at 09:00 Aspirin (Aspirin) 81 mg DAILY PO Last administered on 12/25/18 08:22; Admin Dose 81 MG; Start 12/24/18 at 12:00 Clopidogrel Bisulfate (plaVIX) 75 mg DAILY PO Last administered on 12/25/18 08:22; Admin Dose 75 MG; Start 12/24/18 at 12:00 Enoxaparin Sodium (Lovenox) 40 mg DAILY SC Last administered on 12/25/18 08:31; Admin Dose 40 MG; Start 12/25/18 at 09:00 Albuterol/ Ipratropium (Duoneb) 3 ml Q6HWA RESP THERAPY HHN Last administered on 12/25/18 14:04; Admin Dose 3 ML; Start 12/24/18 at 14:00 Albuterol/ Ipratropium (Duoneb) 3 ml Q2H RESP THERAPY PRN HHN shortness of breath; Start 12/24/18 at 11:00 Budesonide (Pulmicort (Neb)) 0.5 mg BID RESP THERAPY HHN Last administered on 12/25/18 08:31; Admin Dose 0.5 MG; Start 12/24/18 at 12:00 Insulin Aspart (Novolog Insulin Pen) 15 unit WITH MEALS SC Last administered on 12/25/18 11:45; Admin Dose 15 UNIT; Start 12/25/18 at 11:50 Insulin Glargine (Lantus) 40 units DAILY@0800 SC ; Start 12/26/18 at 08:00 VTE Prophylaxis Risk score (from Nsg)>0 risk: 10 SCD applied (from Ns): Yes Lines/Catheters IV Catheter Type: Hooks in Place: No Assessment/Plan Hospital Course Subjective Patient doing well, but desat slightly while ambulating with PT Objective Physical exam General: Patient is laying in bed and answers questions appropriately Mentation: Patient is alert and oriented 4, Head: Normocephalic atraumatic Eyes: EOMI, pupils reactive to light Neck: Supple, nontender, midline Respiratory: Clear to auscultation bilaterally Cardiovascular: regular rate, no obvious murmurs Gastrointestinal: non-tender to palpation, bowel sounds heard. Neurological: Moves all extremities spontaneously Skin: Surgical site bandaged, CDI ASSESSMENT & PLAN This is a 63-year-old male with comorbidities including diabetes mellitus, left foot osteomyelitis, hypertension, obesity, chronic kidney disease, peripheral artery disease, and alcohol abuse. The patient came to the emergency room with chief complaint of abdominal pain, distension and occasional radiation of pain to the chest. He was noticed to have NSTEMI. 1. NSTEMI. -S/P LHC on 12/17/2018 that showed significant 3-vessel CAD. -S/P CABG x4, SVG to LAD, SVG to OM1 sequenced to OM2, SVG to PDA on 12/18/2018. -extubated 12/20/18 -wound vac removed -doing well Mild fevers, resolving -Patient asymptomatic -ID on board, Dr. Tsai -IV antibiotic -Cultures -UA neg 2. Acute respiratory failure. -Resolving significantly, on nasal cannula, will attempt to titrate off. -Continue supplemental O2. -Continue inhaled bronchodilators. -resolving - 3. Fluid overload. -Etiology could be multifactorial. -2D echocardiogram showing preserved LVEF. -Known history of significant proteinuria, suggesting nephrotic syndrome. -Diuretics as clinically indicated. 4. Diabetes mellitus type 2. -Hemoglobin A1c 10.7. -Currently on insulin drip. 5. Peripheral artery disease. -Status post left tibioperoneal trunk balloon angioplasty, left femoral popliteal artery stenting, and left femoral popliteal artery balloon angioplasty on 03/22/2017. 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 Hypertension. -Continue antihypertensives. 7. Pulmonary hypertension. -PA systolic pressure of 52 mm Hg. 8. E. coli ESBL in urine wound 12/18/2018. resolved -[place] count <10,000 CFU per mL. -completed course of carbapenams -Repeat urine studies negative. -S/P ID evaluation. 9. Obesity. -BMI 31.5 kg/m -Weight reduction advised. 10. Normocytic, normochromic anemia. -Monitor H&H closely. 11. Alcohol abuse. -Continue multivitamins. 12. Generalized anxiety. -PRN benzodiazepines. 13. ANGEL. -Monitor BUN and creatinine closely. -Use nephrotoxic drugs with caution. -Nephrology on board. DVT proph: -40 lovenox daily 16. Plan. -Patient doing well, however desaturated with ambulation with physical therapy, will begin to arrange for oxygen therapy. RENU WHITE December 25, 2018 15:06
[2018-12-25] MEDS: ATORVASTATIN 80 MG TAB PO SCH (20:38)
[2018-12-26] VITALS (12 sets, daily range): BP systolic 109–148; BP diastolic 58–68; PULSE 74–92; RESP 18–20
[2018-12-26] MEDS: OXYCODONE/ACETAMINOPHEN (5/325) TAB PO PRN ×3 (05:41→20:13)
[2018-12-26] MEDS: ALBUTEROL/IPRATROPIUM (NEB) 3 ML AMP HHN SCH ×3 (07:58→19:53)
[2018-12-26] MEDS ORDERED: INSULIN GLARGINE [LANTus] (100 UNITS/ML) SYG SC SCH (08:00)
[2018-12-26] MEDS: BUDESONIDE (NEB) 0.5MG/2ML AMP HHN SCH ×2 (08:00→19:53)
[2018-12-26] MEDS: BUMETANIDE 1 MG TAB PO SCH (08:08)
[2018-12-26] MEDS: ASPIRIN 81 MG TAB PO SCH (08:08)
[2018-12-26] MEDS: FAMOTIDINE 20 MG TAB PO SCH ×2 (08:09→20:46)
[2018-12-26] MEDS: NITROFURANTOIN (SR) 100 MG CAP PO SCH ×2 (08:09→20:46)
[2018-12-26] MEDS: metFORMIN 500 MG TAB PO SCH ×2 (08:10→17:08)
[2018-12-26] MEDS: CLOPIDOGREL 75 MG TAB PO SCH (08:10)
[2018-12-26] MEDS: GABAPENTIN 300 MG CAP PO SCH ×3 (08:10→20:46)
[2018-12-26] MEDS: LINAGLIPTIN 5 MG TABLET PO SCH (08:11)
[2018-12-26] MEDS: METOPROLOL 50 MG TAB PO SCH ×2 (08:11→20:47)
[2018-12-26] MEDS: BALSAM PERU/CASTOR OIL 60 GM TUBE TOP SCH ×2 (08:12→21:15)
[2018-12-26] MEDS: INSULIN ASPART [NOVOLOG] 3 ML PEN SC SCH ×7 (08:20→21:00)
[2018-12-26] MEDS: ENOXAPARIN 40 MG/0.4 ML SYG SC SCH (08:21)
--- NOTE | 2018-12-26 09:38 | CONS ---
Assessment/Plan Assessment/Plan Hospital Course (Demo Recall) Acute diastolic CHF: EF 60%. Now euvolemic Acute respiratory failure: Intubated for CABG. Extubated 12/20 Acute renal failure: Cr slightly increased post-op. Likely ATN but also REYNA possible from cath. Stable with diuresis. Resolved CAD s/p CAB vessel SVG-LAD, SVG-OM1/OM2 (sequenced), SVG-PDA. DE ANDA not used as injured during prep. NSTEMI: Trop 1 and trended down. No active chest pain. Three vessel CAD on cath s/p CABG PAD s/p left leg balloon angioplasty and stenting 2016 DM HTN HL Alcohol abuse: no cirrhosis or bleeding. -dispo per primary with below meds -bumex 1mg daily -ASA 81mg -plavix 75mg x 1 yr -lipitor 80mg -metoprolol 50mg BID Consultation Date/Type/Reason Admit Date/Time Dec 15, 2018 at 16:16 Initial Consult Date 12/16/18 Type of Consult Cardiology Requesting Provider: JUAN M VENEGAS Date/Time of Note DATE: 12/26/18 TIME: 09:36 24 HR Interval Summary Free Text/Dictation No complaints. Would like to go home. Exam/Review of Systems Vital Signs Vitals Vital Signs Date Temp Pulse Resp B/P (MAP) Pulse Ox O2 O2 Flow FiO2 Time Delivery Rate 12/26/18 83 18 94 21 08:09 12/26/18 98.4 136/62 Nasal 07:25 (86) Cannula 12/25/18 3.0 16:50 Intake and Output 12/25/18 12/25/18 12/26/18 1515:00 23:00 07:00 IntakeIntake Total 1200 ml BalanceBalance 1200 ml Exam Constitutional: alert, oriented Psych: no complaints, nl mood/affect Head: normocephalic, atraumatic Respiratory: crackles/rales (mild at bases); No clear to auscultation Cardiovascular: regular rate and rhythm, edema (1+ ankles) Gastrointestinal: soft, non-tender; No distended Neurological: nl mental status, nl speech Labs Result Diagram: 12/26/18 0828 12/26/18 0828 Results 24hrs Laboratory Tests Test 12/25/18 11:22 12/25/18 11:22 12/25/18 15:56 12/25/18 17:20 Bedside Glucose 229 H 151 Lab Scanned REFERENCE LAB Report Blood Gas Blood arterial Specimen Source Arterial Blood 12/25/2018 1:40:28 Date Drawn PM Arterial Blood pH 7.406 (Temp corrected) Arterial Blood 40.3 pCO2 (Temp correct) Arterial Blood 75.6 L pO2 (Temp corrected) Arterial Blood 24.7 HCO3 Arterial Blood 0.1 Base Excess Arterial Blood 94.5 L Oxygen Saturation Demond Test ACCEPTAB Arterial Blood Right Radial Gas Puncture Site Arterial 0.3 Blood Carboxyhemo globin Arterial Blood 0.1 Methemoglobin Blood Gas A-a O2 91.0 H Differential Oxyhemoglobin 94.1 Percent Blood Gas 37.0 Temperature Blood Gas NASAL CANNULA Modality FiO2 30.0 Blood Gas TM Notified Whom Blood Gas 12/25/2018 1:51:03 Notified Time PM Test 12/25/18 20:20 12/26/18 07:53 12/26/18 08:28 Bedside Glucose 143 305 H White Blood Count 11.3 H Red Blood Count 2.86 L Hemoglobin 8.5 L Hematocrit 26.9 L Mean Corpuscular 94.1 Volume Mean Corpuscular 29.7 Hemoglobin Mean Corpuscular 31.6 L Hemoglobin Concen t Red Cell 13.8 Distribution Width Platelet Count 616 H Mean Platelet 9.5 Volume Immature 2.000 H Granulocytes % Neutrophils % 68.1 Lymphocytes % 17.1 Monocytes % 9.1 Eosinophils % 2.7 Basophils % 1.0 Nucleated Red 0.0 Blood Cells % Immature 0.220 H Granulocytes # Neutrophils # 7.7 H Lymphocytes # 1.9 Monocytes # 1.0 H Eosinophils # 0.3 Basophils # 0.1 Nucleated Red 0.0 Blood Cells # Sodium Level 136 Potassium Level 4.3 Chloride Level 104 Carbon Dioxide 26 Level Anion Gap 6 Blood Urea 18 Nitrogen Creatinine 1.17 Est Glomerular > 60 Filtrat Rate mL/min Glucose Level 267 H Calcium Level 8.3 L Phosphorus Level 3.7 Magnesium Level 1.8 Medications Medications Current Medications Levalbuterol (Xopenex Neb) 1.25 mg Q4H RESP THERAPY PRN HHN sob Last administered on 12/18/18at 08:41; Admin Dose 1.25 MG; Start 12/16/18 at 02:00 Albumin Human 250 ml @ 500 mls/hr PRN PRN IV CVP< 8, OR SBP<90 Last administered on 12/19/18 15:54; Admin Dose 500 MLS/HR; Start 12/18/18 at 20:30 Oxycodone/ Acetaminophen (Percocet (5/ 325)) 1 tab Q3H PRN PO PAIN LEVEL 1-5 Last administered on 12/26/18 05:41; Admin Dose 1 TAB; Start 12/18/18 at 20:30 Oxycodone/ Acetaminophen (Percocet (5/ 325)) 2 tab Q3H PRN PO PAIN LEVEL 6-10 Last administered on 12/25/18 18:14; Admin Dose 2 TAB; Start 12/18/18 at 20:30 Ondansetron HCl (Zofran Inj) 4 mg Q6H PRN IV NAUSEA AND/OR VOMITING; Start 12/18/18 at 20:30 Famotidine (Pepcid) 20 mg BID PO Last administered on 12/26/18 08:09; Admin Dose 20 MG; Start 12/18/18 at 21:00 Acetaminophen (Tylenol Tab) 650 mg Q3H PRN PO ELEVATED TEMPERATURE Last administered on 12/21/18 20:11; Admin Dose 650 MG; Start 12/18/18 at 20:30 Atorvastatin Calcium (Lipitor) 80 mg HS PO Last administered on 12/25/18 20:38; Admin Dose 80 MG; Start 12/18/18 at 21:00 Acetaminophen (Tylenol Liquid) 650 mg Q4H PRN NGT MILD PAIN(1-3)OR ELEVATED TEMP Last administered on 12/20/18 06:00; Admin Dose 650 MG; Start 12/20/18 at 06:00 Lorazepam (Ativan) 2 mg Q6H PRN IV Anxiety; Start 12/20/18 at 11:30 Hydralazine HCl (Apresoline) 10 mg Q6H PRN IV SBP>160; Start 12/20/18 at 11:30 Insulin Aspart (Novolog Insulin Pen) NOVOLOG *MILD* ALGORITHM WITH MEALS BEDTI ME SC Last administered on 12/26/18 08:20; Admin Dose 5 UNIT; Start 12/20/18 at 13:00 Metoprolol Tartrate (Lopressor) 50 mg BID PO Last administered on 12/26/18 08:11; Admin Dose 50 MG; Start 12/20/18 at 14:30 Gabapentin (Neurontin) 300 mg TID PO Last administered on 12/26/18 08:10; Admin Dose 300 MG; Start 12/22/18 at 13:00 Bumetanide (Bumex) 1 mg DAILY PO Last administered on 12/26/18 08:08; Admin Dose 1 MG; Start 12/24/18 at 09:00 Linagliptin (Tradjenta) 5 mg DAILY PO Last administered on 12/26/18 08:11; Admin Dose 5 MG; Start 12/23/18 at 18:30 Metformin HCl (Glucophage) 1,000 mg BID WITH MEALS PO Last administered on 12/26/18 08:10; Admin Dose 1,000 MG; Start 12/23/18 at 18:30 Aspirin (Aspirin) 81 mg DAILY PO Last administered on 12/26/18 08:08; Admin Dose 81 MG; Start 12/24/18 at 12:00 Clopidogrel Bisulfate (plaVIX) 75 mg DAILY PO Last administered on 12/26/18 08:10; Admin Dose 75 MG; Start 12/24/18 at 12:00 Enoxaparin Sodium (Lovenox) 40 mg DAILY SC Last administered on 12/26/18 08:21; Admin Dose 40 MG; Start 12/25/18 at 09:00 Albuterol/ Ipratropium (Duoneb) 3 ml Q6HWA RESP THERAPY HHN Last administered on 12/26/18 07:58; Admin Dose 3 ML; Start 12/24/18 at 14:00 Albuterol/ Ipratropium (Duoneb) 3 ml Q2H RESP THERAPY PRN HHN shortness of breath; Start 12/24/18 at 11:00 Budesonide (Pulmicort (Neb)) 0.5 mg BID RESP THERAPY HHN Last administered on 12/26/18 08:00; Admin Dose 0.5 MG; Start 12/24/18 at 12:00 Insulin Aspart (Novolog Insulin Pen) 15 unit WITH MEALS SC Last administered on 12/26/18 08:20; Admin Dose 15 UNIT; Start 12/25/18 at 11:50 Insulin Glargine (Lantus) 40 units DAILY@0800 SC Last administered on 12/26/18 08:19; Admin Dose 40 UNITS; Start 12/26/18 at 08:00 Nitrofurantoin Macrocrystals (Macrobid) 100 mg BID PO Last administered on 12/26/18at 08:09; Admin Dose 100 MG; Start 12/26/18 at 09:00; Stop 12/27/18 at 10:00 JUAN M VENEGAS December 26, 2018 09:38
--- NOTE | 2018-12-26 10:18 | PN ---
DATE: 12/26/2018 SUBJECTIVE: The patient is stable. No events overnight. No fevers, chills, nausea or vomiting. OBJECTIVE: VITAL SIGNS: Blood pressure is 136/62, respirations 20, pulse 77, temperature 98.4. HEENT: Head is normocephalic. NECK: Supple. HEART: Regular rate. LUNGS: Show diminished breath sounds at the base. ABDOMEN: Soft, nontender to palpation. EXTREMITIES: Negative for clubbing, cyanosis, no edema. DERMATOLOGIC: No rashes. MUSCULOSKELETAL: No joint effusion. NEUROLOGIC: No change in exam. MEDICATIONS: Have been reviewed. LABORATORY DATA: Has been reviewed. ASSESSMENT AND PLAN: 1. Nonoliguric acute kidney injury. Etiology of acute kidney injury is secondary to acute tubular n ecrosis. Renal function is improved. Continue current treatment plan, supportive care, renally dose all meds. 2. Anemia. Monitor hemoglobin and hematocrit levels. 3. Hypernatremia, improved. 4. Mineral bone disorder. Monitor calcium and phosphorus levels. 5. Acute diastolic heart failure. The patient appears compensated. Continue current diuretic regim en. 6. Status post CABG. Continue to monitor. 7. Non-ST elevation myocardial infarction. Continue medical management. 8. Peripheral vascular disease. 9. Diabetes. Continue current insulin regimen. 10. Hypertension. Continue current blood pressure regimen. 11. Dyslipidemia. Continue statin therapy. Dictated By: KIERAN CAMARENA/NTS Conf#: [id number] DID#: [id number] CC: RENU WHITE MD;*EndCC*
--- NOTE | 2018-12-26 12:22 | PN ---
Date/Time of Note Date/Time of Note DATE: 12/26/18 TIME: 12:19 Objective Vitals Vital Signs Date Temp Pulse Resp B/P (MAP) Pulse Ox O2 O2 Flow FiO2 Time Delivery Rate 12/26/18 98.0 83 18 117/58 95 Nasal 11:47 (77) Cannula 12/26/18 21 08:09 12/25/18 3.0 16:50 Intake and Output 12/25/18 12/25/18 12/26/18 1515:00 23:00 07:00 IntakeIntake Total 1200 ml BalanceBalance 1200 ml Results Result Diagram: 12/26/1882712/26/18827 Medications Medications Current Medications Levalbuterol (Xopenex Neb) 1.25 mg Q4H RESP THERAPY PRN HHN sob Last administered on 12/18/18 08:41; Admin Dose 1.25 MG; Start 12/16/18 at 02:00 Albumin Human 250 ml @ 500 mls/hr PRN PRN IV CVP< 8, OR SBP<90 Last administ ered on 12/19/18at 15:54; Admin Dose 500 MLS/HR; Start 12/18/18 at 20:30 Oxycodone/ Acetaminophen (Percocet (5/ 325)) 1 tab Q3H PRN PO PAIN LEVEL 1-5 Last administered on 12/26/18at 10:45; Admin Dose 1 TAB; Start 12/18/18 at 20:30 Oxycodone/ Acetaminophen (Percocet (5/ 325)) 2 tab Q3H PRN PO PAIN LEVEL 6-10 Last administered on 12/25/18 18:14; Admin Dose 2 TAB; Start 12/18/18 at 20:30 Ondansetron HCl (Zofran Inj) 4 mg Q6H PRN IV NAUSEA AND/OR VOMITING; Start 12/18/18 at 20:30 Famotidine (Pepcid) 20 mg BID PO Last administered on 12/26/18 08:09; Admin Dose 20 MG; Start 12/18/18 at 21:00 Acetaminophen (Tylenol Tab) 650 mg Q3H PRN PO ELEVATED TEMPERATURE Last administered on 12/21/18 20:11; Admin Dose 650 MG; Start 12/18/18 at 20:30 Atorvastatin Calcium (Lipitor) 80 mg HS PO Last administered on 12/25/18 20:38; Admin Dose 80 MG; Start 12/18/18 at 21:00 Acetaminophen (Tylenol Liquid) 650 mg Q4H PRN NGT MILD PAIN(1-3)OR ELEVATED TEMP Last administered on 12/20/18 06:00; Admin Dose 650 MG; Start 12/20/18 at 06:00 Lorazepam (Ativan) 2 mg Q6H PRN IV Anxiety; Start 12/20/18 at 11:30 Hydralazine HCl (Apresoline) 10 mg Q6H PRN IV SBP>160; Start 12/20/18 at 11:30 Insulin Aspart (Novolog Insulin Pen) NOVOLOG *MILD* ALGORITHM WITH MEALS BEDTIME SC Last administered on 12/26/18 12:01; Admin Dose 3 UNIT; Start 12/20/18 at 13:00 Metoprolol Tartrate (Lopressor) 50 mg BID PO Last administered on 12/26/18 08:11; Admin Dose 50 MG; Start 12/20/18 at 14:30 Gabapentin (Neurontin) 300 mg TID PO Last administered on 12/26/18 11:56; Admin Dose 300 MG; Start 12/22/18 at 13:00 Bumetanide (Bumex) 1 mg DAILY PO Last administered on 12/26/18 08:08; Admin Dose 1 MG; Start 12/24/18 at 09:00 Linagliptin (Tradjenta) 5 mg DAILY PO Last administered on 12/26/18 08:11; Admin Dose 5 MG; Start 12/23/18 at 18:30 Metformin HCl (Glucophage) 1,000 mg BID WITH MEALS PO Last administered on 12/26/18 08:10; Admin Dose 1,000 MG; Start 12/23/18 at 18:30 Aspirin (Aspirin) 81 mg DAILY PO Last administered on 12/26/18 08:08; Admin Dose 81 MG; Start 12/24/18 at 12:00 Clopidogrel Bisulfate (plaVIX) 75 mg DAILY PO Last administered on 12/26/18 08:10; Admin Dose 75 MG; Start 12/24/18 at 12:00 Enoxaparin Sodium (Lovenox) 40 mg DAILY SC Last administered on 12/26/18 08:21; Admin Dose 40 MG; Start 12/25/18 at 09:00 Albuterol/ Ipratropium (Duoneb) 3 ml Q6HWA RESP THERAPY HHN Last administered on 12/26/18at 07:58; Admin Dose 3 ML; Start 12/24/18 at 14:00 Albuterol/ Ipratropium (Duoneb) 3 ml Q2H RESP THERAPY PRN HHN shortness of breath; Start 12/24/18 at 11:00 Budesonide (Pulmicort (Neb)) 0.5 mg BID RESP THERAPY HHN Last administered on 12/26/18at 08:00; Admin Dose 0.5 MG; Start 12/24/18 at 12:00 Insulin Aspart (Novolog Insulin Pen) 15 unit WITH MEALS SC Last administered on 12/26/18at 12:00; Admin Dose 15 UNIT; Start 12/25/18 at 11:50 Insulin Glargine (Lantus) 40 units DAILY@0800 SC Last administered on 12/26/18at 08:19; Admin Dose 40 UNITS; Start 12/26/18 at 08:00 Nitrofurantoin Macrocrystals (Macrobid) 100 mg BID PO Last administered on 12/26/18at 08:09; Admin Dose 100 MG; Start 12/26/18 at 09:00; Stop 12/27/18 at 10:00 VTE Prophylaxis Risk score (from Nsg)>0 risk: 3 SCD applied (from Nsg): Yes Lines/Catheters IV Catheter Type: Hooks in Place: No Assessment/Plan Hospital Course Subjective Patient doing well, but desat slightly while ambulating Objective Physical exam General: Patient is laying in bed and answers questions appropriately Mentation: Patient is alert and oriented 4, Head: Normocephalic atraumatic Eyes: EOMI, pupils reactive to light Neck: Supple, nontender, midline Respiratory: mildly coarse to auscultation bilaterally Cardiovascular: regular rate, no obvious murmurs Gastrointestinal: non-tender to palpation, bowel sounds heard. Neurological: Moves all extremities spontaneously Skin: Surgical site bandaged, CDI ASSESSMENT & PLAN This is a 63-year-old male with comorbidities including diabetes mellitus, left foot osteomyelitis, hypertension, obesity, chronic kidney disease, peripheral artery disease, and alcohol abuse. The patient came to the emergency room with chief complaint of abdominal pain, distension and occasional radiation of pain to the chest. He was noticed to have NSTEMI. NSTEMI. -S/P LHC on 12/17/2018 that showed significant 3-vessel CAD. -S/P CABG x4, SVG to LAD, SVG to OM1 sequenced to OM2, SVG to PDA on 12/18/2018. -extubated 12/20/18 -wound vac removed -doing well Mild fevers, resolved -Patient asymptomatic -ID on board, Dr. Tsai -IV antibiotic stopped -Cultures -UA neg Acute respiratory failure. -Resolving significantly, on nasal cannula, will attempt to titrate off. -Continue supplemental O2. -Continue inhaled bronchodilators. -resolving - Fluid overload. -Etiology could be multifactorial. -2D echocardiogram showing preserved LVEF. -Known history of significant proteinuria, suggesting nephrotic syndrome. -Diuretics as clinically indicated. Diabetes mellitus type 2. -Hemoglobin A1c 10.7. -Currently on insulin drip. Peripheral artery disease. -Status post left tibioperoneal trunk balloon angioplasty, left femoral popliteal artery stenting, and left femoral popliteal artery balloon angioplasty on 03/22/2017. -Continue antiplatelet therapy as per insert operator Hypertension. -Continue antihypertensives. Pulmonary hypertension. -PA systolic pressure of 52 mm Hg. E. coli ESBL in urine wound 12/18/2018. resolved -[place] count <10,000 CFU per mL. -completed course of carbapenams -Repeat urine studies negative. -S/P ID evaluation. Obesity. -BMI 31.5 kg/m -Weight reduction advised. Normocytic, normochromic anemia. -Monitor H&H closely. Alcohol abuse. -Continue multivitamins. Generalized anxiety. -PRN benzodiazepines. ANGEL. -Monitor BUN and creatinine closely. -Use nephrotoxic drugs with caution. -Nephrology on board. DVT proph: -40 lovenox daily Plan. -Patient doing well, however continues to desat slightly with ambulation, however does not meet criteria for oxygen at this time, but too low for safe DC without O2, will continue to diurese. RENU WHITE December 26, 2018 12:22
[2018-12-26] MEDS ORDERED: DEXTROSE 50% 50 ML SYRINGE IV PRN ×2 (12:30)
[2018-12-26] MEDS ORDERED: FUROSEMIDE 40 MG INJ IV ONE (12:30)
[2018-12-26] MEDS ORDERED: GLUCOSE GEL 15 GRAM TUBE PO PRN ×2 (12:30)
[2018-12-26] MEDS ORDERED: GLUCOSE GEL 15 GRAM TUBE BUCCAL PRN (12:30)
[2018-12-26] MEDS ORDERED: GLUCAGON 1 MG INJ IM PRN (12:30)
--- NOTE | 2018-12-26 12:47 | CONS ---
Consult Date/Type/Reason Admit Date/Time Dec 15, 2018 at 16:16 Initial Consult Date 12/19/18 Type of Consult Pulmonary Requesting Provider: JUAN M VENEGAS Date/Time of Note DATE: 12/26/18 TIME: 12:44 Objective Vital Signs Date Temp Pulse Resp B/P (MAP) Pulse Ox O2 O2 Flow FiO2 Time Delivery Rate 12/26/18 98.0 83 18 117/58 95 Nasal 11:47 (77) Cannula 12/26/18 21 08:09 12/25/18 3.0 16:50 Intake and Output 12/25/18 12/25/18 12/26/18 1515:00 23:00 07:00 IntakeIntake Total 1200 ml BalanceBalance 1200 ml Vent Setting Ventilator Support Mode: CPAP, PS Fraction of Inspired Oxygen pe: 21 Positive End Expiratory Pressu: 5.0 Results/Medications Result Diagram: 12/26/1828 12/26/1828 Results 24 hrs Laboratory Tests Test 12/25/18 15:56 12/25/18 17:20 12/25/18 20:20 12/26/18 07:53 Blood Gas Specimen Blood arterial Source Arterial Blood 12/25/2018 1:40:28 Date Drawn PM Arterial Blood pH 7.406 (Temp corrected) Arterial Blood 40.3 pCO2 (Temp correct) Arterial Blood pO2 75.6 L (Temp corrected) Arterial Blood 24.7 HCO3 Arterial Blood 0.1 Base Excess Arterial Blood 94.5 L Oxygen Saturation Demond Test ACCEPTAB Arterial Blood Gas Right Radial Puncture Site Arterial 0.3 Blood Carboxyhemog lobin Arterial Blood 0.1 Methemoglobin Blood Gas A-a O2 91.0 H Differential Oxyhemoglobin 94.1 Percent Blood Gas 37.0 Temperature Blood Gas Modality NASAL CANNULA FiO2 30.0 Blood Gas Notified TM Whom Blood Gas Notified 12/25/2018 1:51:03 Time PM Bedside Glucose 151 143 305 H Test 12/26/18 08:28 12/26/18 11:57 White Blood Count 11.3 H Red Blood Count 2.86 L Hemoglobin 8.5 L Hematocrit 26.9 L Mean Corpuscular 94.1 Volume Mean Corpuscular 29.7 Hemoglobin Mean Corpuscular 31.6 L Hemoglobin Concent Red Cell 13.8 Distribution Width Platelet Count 616 H Mean Platelet 9.5 Volume Immature 2.000 H Granulocytes % Neutrophils % 68.1 Lymphocytes % 17.1 Monocytes % 9.1 Eosinophils % 2.7 Basophils % 1.0 Nucleated Red 0.0 Blood Cells % Immature 0.220 H Granulocytes # Neutrophils # 7.7 H Lymphocytes # 1.9 Monocytes # 1.0 H Eosinophils # 0.3 Basophils # 0.1 Nucleated Red 0.0 Blood Cells # Sodium Level 136 Potassium Level 4.3 Chloride Level 104 Carbon Dioxide 26 Level Anion Gap 6 Blood Urea 18 Nitrogen Creatinine 1.17 Est Glomerular > 60 Filtrat Rate mL/min Glucose Level 267 H Calcium Level 8.3 L Phosphorus Level 3.7 Magnesium Level 1.8 Bedside Glucose 232 H Medications Current Medications Levalbuterol (Xopenex Neb) 1.25 mg Q4H RESP THERAPY PRN HHN sob Last administered on 12/18/18 08:41; Admin Dose 1.25 MG; Start 12/16/18 at 02:00 Albumin Human 250 ml @ 500 mls/hr PRN PRN IV CVP< 8, OR SBP<90 Last administered on 12/19/18 15:54; Admin Dose 500 MLS/HR; Start 12/18/18 at 20:30 Oxycodone/ Acetaminophen (Percocet (5/ 325)) 1 tab Q3H PRN PO PAIN LEVEL 1-5 Last administered on 12/26/18 10:45; Admin Dose 1 TAB; Start 12/18/18 at 20:30 Oxycodone/ Acetaminophen (Percocet (5/ 325)) 2 tab Q3H PRN PO PAIN LEVEL 6-10 Last administered on 12/25/18 18:14; Admin Dose 2 TAB; Start 12/18/18 at 20:30 Ondansetron HCl (Zofran Inj) 4 mg Q6H PRN IV NAUSEA AND/OR VOMITING; Start 12/18/18 at 20:30 Famotidine (Pepcid) 20 mg BID PO Last administered on 12/26/18 08:09; Admin Dose 20 MG; Start 12/18/18 at 21:00 Acetaminophen (Tylenol Tab) 650 mg Q3H PRN PO ELEVATED TEMPERATURE Last administered on 12/21/18 20:11; Admin Dose 650 MG; Start 12/18/18 at 20:30 Atorvastatin Calcium (Lipitor) 80 mg HS PO Last administered on 12/25/18 20:38; Admin Dose 80 MG; Start 12/18/18 at 21:00 Acetaminophen (Tylenol Liquid) 650 mg Q4H PRN NGT MILD PAIN(1-3)OR ELEVATED TEMP Last administered on 12/20/18 06:00; Admin Dose 650 MG; Start 12/20/18 at 06:00 Lorazepam (Ativan) 2 mg Q6H PRN IV Anxiety; Start 12/20/18 at 11:30 Hydralazine HCl (Apresoline) 10 mg Q6H PRN IV SBP>160; Start 12/20/18 at 11:30 Insulin Aspart (Novolog Insulin Pen) NOVOLOG *MILD* ALGORITHM WITH MEALS BEDTIME SC Last administered on 12/26/18 12:01; Admin Dose 3 UNIT; Start 12/20/18 at 13:00 Metoprolol Tartrate (Lopressor) 50 mg BID PO Last administered on 12/26/18 08:11; Admin Dose 50 MG; Start 12/20/18 at 14:30 Gabapentin (Neurontin) 300 mg TID PO Last administered on 12/26/18 11:56; Admin Dose 300 MG; Start 12/22/18 at 13:00 Bumetanide (Bumex) 1 mg DAILY PO Last administered on 12/26/18 08:08; Admin Dose 1 MG; Start 12/24/18 at 09:00 Linagliptin (Tradjenta) 5 mg DAILY PO Last administered on 12/26/18 08:11; Admin Dose 5 MG; Start 12/23/18 at 18:30 Metformin HCl (Glucophage) 1,000 mg BID WITH MEALS PO Last administered on 12/26/18 08:10; Admin Dose 1,000 MG; Start 12/23/18 at 18:30 Aspirin (Aspirin) 81 mg DAILY PO Last administered on 12/26/18 08:08; Admin Dose 81 MG; Start 12/24/18 at 12:00 Clopidogrel Bisulfate (plaVIX) 75 mg DAILY PO Last administered on 12/26/18 08:10; Admin Dose 75 MG; Start 12/24/18 at 12:00 Enoxaparin Sodium (Lovenox) 40 mg DAILY SC Last administered on 12/26/18 08:21; Admin Dose 40 MG; Start 12/25/18 at 09:00 Albuterol/ Ipratropium (Duoneb) 3 ml Q6HWA RESP THERAPY HHN Last administered on 12/26/18at 07:58; Admin Dose 3 ML; Start 12/24/18 at 14:00 Albuterol/ Ipratropium (Duoneb) 3 ml Q2H RESP THERAPY PRN HHN shortness of breath; Start 12/24/18 at 11:00 Budesonide (Pulmicort (Neb)) 0.5 mg BID RESP THERAPY HHN Last administered on 12/26/18at 08:00; Admin Dose 0.5 MG; Start 12/24/18 at 12:00 Nitrofurantoin Macrocrystals (Macrobid) 100 mg BID PO Last administered on 12/26/18at 08:09; Admin Dose 100 MG; Start 12/26/18 at 09:00; Stop 12/27/18 at 10:00 Insulin Aspart (Novolog Insulin Pen) 18 unit WITH MEALS SC ; Start 12/26/18 at 17:55 Insulin Glargine (Lantus) 45 units DAILY@0800 SC ; Start 12/27/18 at 08:00 Miscellaneous Information 1 ea NOTE XX ; Start 12/26/18 at 12:30 Glucose (Glutose) 15 gm Q15M PRN PO DECREASED GLUCOSE; Start 12/26/18 at 12:30 Glucose (Glutose) 22.5 gm Q15M PRN PO DECREASED GLUCOSE; Start 12/26/18 at 12:30 Dextrose (D50w Syringe) 25 ml Q15M PRN IV DECREASED GLUCOSE; Start 12/26/18 at 12:30 Dextrose (D50w Syringe) 50 ml Q15M PRN IV DECREASED GLUCOSE; Start 12/26/18 at 12:30 Glucagon (Glucagen) 1 mg Q15M PRN IM DECREASED GLUCOSE; Start 12/26/18 at 12:30 Glucose (Glutose) 15 gm Q15M PRN BUCCAL DECREASED GLUCOSE; Start 12/26/18 at 12:30 Assessment/Plan Hospital Course (Demo Recall) Assessment 1. s/p Respiratory Failure 2. s/p CABG 3. NSTEMI 4. ANGEL 5. CHF 6. Leukocytosis/low grade fevers/possible pna RECS: 1. Mobilize OOB 2. ICS 3. Continue abx 4. Sputum GS/Cx 5. Diuresis DC planning? Consider transfer to [facility]. JOCELYN COPE MD, [facility] December 26, 2018 12:47
[2018-12-26] MEDS: ATORVASTATIN 80 MG TAB PO SCH (20:46)
[2018-12-27] VITALS (12 sets, daily range): BP systolic 106–146; BP diastolic 51–69; PULSE 69–101; RESP 17–18
[2018-12-27] MEDS: OXYCODONE/ACETAMINOPHEN (5/325) TAB PO PRN ×3 (05:20→22:14)
[2018-12-27] MEDS: NITROFURANTOIN (SR) 100 MG CAP PO SCH (08:14)
[2018-12-27] MEDS: metFORMIN 500 MG TAB PO SCH ×2 (08:14→18:04)
[2018-12-27] MEDS: CLOPIDOGREL 75 MG TAB PO SCH (08:15)
[2018-12-27] MEDS: FAMOTIDINE 20 MG TAB PO SCH ×2 (08:15→22:13)
[2018-12-27] MEDS: BUMETANIDE 1 MG TAB PO SCH (08:15)
[2018-12-27] MEDS: LINAGLIPTIN 5 MG TABLET PO SCH (08:15)
[2018-12-27] MEDS: ASPIRIN 81 MG TAB PO SCH (08:15)
[2018-12-27] MEDS: GABAPENTIN 300 MG CAP PO SCH ×3 (08:15→22:13)
[2018-12-27] MEDS: METOPROLOL 50 MG TAB PO SCH ×2 (08:16→22:15)
[2018-12-27] MEDS: INSULIN GLARGINE [LANTus] (100 UNITS/ML) SYG SC SCH (08:18)
[2018-12-27] MEDS: INSULIN ASPART [NOVOLOG] 3 ML PEN SC SCH ×7 (08:19→22:00)
[2018-12-27] MEDS: ENOXAPARIN 40 MG/0.4 ML SYG SC SCH (08:27)
[2018-12-27] MEDS: ALBUTEROL/IPRATROPIUM (NEB) 3 ML AMP HHN SCH ×3 (08:30→20:57)
--- NOTE | 2018-12-27 08:38 | PN ---
DATE: 12/27/2018 SUBJECTIVE: The patient is stable. No events overnight. OBJECTIVE: VITAL SIGNS: Blood pressure is 121/59, respirations 18, pulse 73, temperature 98.2. HEENT: Head is normocephalic. NECK: Supple. HEART: Regular rate. LUNGS: Show diminished breath sounds at the base. ABDOMEN: Soft, nontender to palpation without rebound or guarding. EXTREMITIES: Negative for clubbing, cyanosis, no edema. DERMATOLOGIC: No rashes. MUSCULOSKELETAL: No joint effusion. NEUROLOGIC: No change in exam. MEDICATIONS: Reviewed. LABORATORY DATA: Reviewed. ASSESSMENT AND PLAN: 1. Nonoliguric acute kidney injury. Etiology of acute kidney injury is secondary to acute tubular n ecrosis. Renal function is improved. Continue current treatment plan, supportive care, renally dose all medications. 2. Anemia. Monitor hemoglobin and hematocrit levels. 3. Mineral bone disorder, monitor calcium and phosphorus levels. 4. Hypernatremia, resolved. 5. Acute diastolic heart failure. The patient is currently compensated. Continue current diuretic regimen. 6. Coronary artery disease, status post coronary artery bypass graft. Continue to monitor. 7. Peripheral vascular disease. Continue medical management. 8. Diabetes. Continue current insulin regimen. 9. Hypertension. Continue current blood pressure regimen. Blood pressure is well controlled. 10. Dyslipidemia. Continue statin therapy. Dictated By: KIERAN KEARNEY DO NR/NTS Conf#: [id number] DID#: [id number] CC: RENU WHITE MD; JUAN M VENEGAS MD;*EndCC*
[2018-12-27] MEDS: BUDESONIDE (NEB) 0.5MG/2ML AMP HHN SCH ×2 (09:18→20:57)
[2018-12-27] MEDS: BALSAM PERU/CASTOR OIL 60 GM TUBE TOP SCH ×2 (09:39→22:16)
--- NOTE | 2018-12-27 11:16 | CONS ---
Assessment/Plan Assessment/Plan Hospital Course (Demo Recall) Acute diastolic CHF: EF 60%. Worse today and decompensated again Acute respiratory failure: Intubated for CABG. Extubated 12/20 Acute renal failure: Cr slightly increased post-op. Likely ATN but also REYNA possible from cath. Stable with diuresis. Resolved CAD s/p CAB vessel SVG-LAD, SVG-OM1/OM2 (sequenced), SVG-PDA. DE ANDA not used as injured during prep. NSTEMI: Trop 1 and trended down. No active chest pain. Three vessel CAD on cath s/p CABG PAD s/p left leg balloon angioplasty and stenting 2016 DM HTN HL Alcohol abuse: no cirrhosis or bleeding. -bumex 2mg IV x 2 doses today -bumex 1mg BID starting tomorrow -possibly home over the weekend -ASA 81mg -plavix 75mg x 1 yr -lipitor 80mg -metoprolol 50mg BID Consultation Date/Type/Reason Admit Date/Time Dec 15, 2018 at 16:16 Initial Consult Date 12/16/18 Type of Consult Cardiology Requesting Provider: JUAN M VENEGAS Date/Time of Note DATE: 12/27/18 TIME: 11:14 24 HR Interval Summary Free Text/Dictation No events. Still desating with ambulation. Exam/Review of Systems Vital Signs Vitals Vital Signs Date Temp Pulse Resp B/P (MAP) Pulse Ox O2 O2 Flow FiO2 Time Delivery Rate 12/27/18 81 09:49 12/27/18 15 97 21 09:21 12/27/18 98.2 121/59 Room Air 8.0 07:51 (79) Intake and Output 12/26/18 12/26/18 12/27/18 1414:59 22:59 06:59 IntakeIntake Total 1100 ml 200 ml BalanceBalance 1100 ml 200 ml Exam Constitutional: alert, oriented Psych: no complaints, nl mood/affect Neck: jvd (9cm) Respiratory: crackles/rales (mid lungs); No clear to auscultation Cardiovascular: regular rate and rhythm, edema (2+) Gastrointestinal: soft, non-tender; No distended Neurological: nl mental status, nl speech Labs Result Diagram: 12/27/18 0737 12/27/18 0737 Results 24hrs Laboratory Tests Test 12/26/18 11:57 12/26/18 17:06 12/26/18 21:18 12/27/18 07:37 Bedside Glucose 232 H 133 149 White Blood Count 11.6 H Red Blood Count 2.98 L Hemoglobin 8.9 L Hematocrit 28.0 L Mean Corpuscular 94.0 Volume Mean Corpuscular 29.9 Hemoglobin Mean Corpuscular 31.8 L Hemoglobin Concent Red Cell Distribution 14.0 Width Platelet Count 701 H Mean Platelet Volume 9.5 Immature Granulocytes 1.300 H % Neutrophils % 71.4 Lymphocytes % 15.1 Monocytes % 8.0 Eosinophils % 3.3 Basophils % 0.9 Nucleated Red Blood 0.0 Cells % Immature Granulocytes 0.150 H # Neutrophils # 8.3 H Lymphocytes # 1.8 Monocytes # 0.9 Eosinophils # 0.4 Basophils # 0.1 Nucleated Red Blood 0.0 Cells # Sodium Level 137 Potassium Level 4.3 Chloride Level 101 Carbon Dioxide Level 29 Anion Gap 7 Blood Urea Nitrogen 19 Creatinine 1.20 Est Glomerular Filtrat > 60 Rate mL/min Glucose Level 175 Calcium Level 8.8 Phosphorus Level 3.8 Magnesium Level 1.7 Test 12/27/18 07:54 Bedside Glucose 191 Medications Medications Current Medications Levalbuterol (Xopenex Neb) 1.25 mg Q4H RESP THERAPY PRN HHN sob Last administered on 12/18/18at 08:41; Admin Dose 1.25 MG; Start 12/16/18 at 02:00 Albumin Human 250 ml @ 500 mls/hr PRN PRN IV CVP< 8, OR SBP<90 Last administered on 12/19/18at 15:54; Admin Dose 500 MLS/HR; Start 12/18/18 at 20:30 Oxycodone/ Acetaminophen (Percocet (5/ 325)) 1 tab Q3H PRN PO PAIN LEVEL 1-5 Last administered on 12/27/18at 05:20; Admin Dose 1 TAB; Start 12/18/18 at 20:30 Oxycodone/ Acetaminophen (Percocet (5/ 325)) 2 tab Q3H PRN PO PAIN LEVEL 6-10 Last administered on 12/26/18at 20:13; Admin Dose 2 TAB; Start 12/18/18 at 20:30 Ondansetron HCl (Zofran Inj) 4 mg Q6H PRN IV NAUSEA AND/OR VOMITING; Start 12/18/18 at 20:30 Famotidine (Pepcid) 20 mg BID PO Last administered on 12/27/18 08:15; Admin Dose 20 MG; Start 12/18/18 at 21:00 Acetaminophen (Tylenol Tab) 650 mg Q3H PRN PO ELEVATED TEMPERATURE Last administered on 12/21/18 20:11; Admin Dose 650 MG; Start 12/18/18 at 20:30 Atorvastatin Calcium (Lipitor) 80 mg HS PO Last administered on 12/26/18 20:46; Admin Dose 80 MG; Start 12/18/18 at 21:00 Acetaminophen (Tylenol Liquid) 650 mg Q4H PRN NGT MILD PAIN(1-3)OR ELEVATED TEMP Last administered on 12/20/18 06:00; Admin Dose 650 MG; Start 12/20/18 at 06:00 Lorazepam (Ativan) 2 mg Q6H PRN IV Anxiety; Start 12/20/18 at 11:30 Hydralazine HCl (Apresoline) 10 mg Q6H PRN IV SBP>160; Start 12/20/18 at 11:30 Insulin Aspart (Novolog Insulin Pen) NOVOLOG *MILD* ALGORITHM WITH MEALS BEDTIME SC Last administered on 12/27/18 08:19; Admin Dose 2 UNIT; Start 12/20/18 at 13:00 Metoprolol Tartrate (Lopressor) 50 mg BID PO Last administered on 12/27/18 08:16; Admin Dose 50 MG; Start 12/20/18 at 14:30 Gabapentin (Neurontin) 300 mg TID PO Last administered on 12/27/18 08:15; Admin Dose 300 MG; Start 12/22/18 at 13:00 Bumetanide (Bumex) 1 mg DAILY PO Last administered on 12/27/18 08:15; Admin Dose 1 MG; Start 12/24/18 at 09:00 Linagliptin (Tradjenta) 5 mg DAILY PO Last administered on 12/27/18 08:15; Admin Dose 5 MG; Start 12/23/18 at 18:30 Metformin HCl (Glucophage) 1,000 mg BID WITH MEALS PO Last administered on 08:14; Admin Dose 1,000 MG; Start 12/23/18 at 18:30 Aspirin (Aspirin) 81 mg DAILY PO Last administered on 12/27/18 08:15; Admin Dose 81 MG; Start 12/24/18 at 12:00 Clopidogrel Bisulfate (plaVIX) 75 mg DAILY PO Last administered on 12/27/18 08:15; Admin Dose 75 MG; Start 12/24/18 at 12:00 Enoxaparin Sodium (Lovenox) 40 mg DAILY SC Last administered on 12/27/18 08:27; Admin Dose 40 MG; Start 12/25/18 at 09:00 Albuterol/ Ipratropium (Duoneb) 3 ml Q6HWA RESP THERAPY HHN Last administered on 12/27/18 08:30; Admin Dose 3 ML; Start 12/24/18 at 14:00 Albuterol/ Ipratropium (Duoneb) 3 ml Q2H RESP THERAPY PRN HHN shortness of breath; Start 12/24/18 at 11:00 Budesonide (Pulmicort (Neb)) 0.5 mg BID RESP THERAPY HHN Last administered on 12/27/18 09:18; Admin Dose 0.5 MG; Start 12/24/18 at 12:00 Insulin Aspart (Novolog Insulin Pen) 18 unit WITH MEALS SC Last administered on 12/27/18 08:26; Admin Dose 18 UNIT; Start 12/26/18 at 17:55 Insulin Glargine (Lantus) 45 units DAILY@0800 SC Last administered on 12/27/18 08:18; Admin Dose 45 UNITS; Start 12/27/18 at 08:00 Miscellaneous Information 1 ea NOTE XX ; Start 12/26/18 at 12:30 Glucose (Glutose) 15 gm Q15M PRN PO DECREASED GLUCOSE; Start 12/26/18 at 12:30 Glucose (Glutose) 22.5 gm Q15M PRN PO DECREASED GLUCOSE; Start 12/26/18 at 12:30 Dextrose (D50w Syringe) 25 ml Q15M PRN IV DECREASED GLUCOSE; Start 12/26/18 at 12:30 Dextrose (D50w Syringe) 50 ml Q15M PRN IV DECREASED GLUCOSE; Start 12/26/18 at 12:30 Glucagon (Glucagen) 1 mg Q15M PRN IM DECREASED GLUCOSE; Start 12/26/18 at 12:30 Glucose (Glutose) 15 gm Q15M PRN BUCCAL DECREASED GLUCOSE; Start 12/26/18 at 12:30 JUAN M VENEGAS December 27, 2018 11:15
[2018-12-27] MEDS ORDERED: BUMETANIDE 1 MG INJ IV ONE ×2 (11:30→17:00)
--- NOTE | 2018-12-27 12:20 | PN ---
Date/Time of Note Date/Time of Note DATE: 12/27/18 TIME: 12:19 Objective Vitals Vital Signs Date Temp Pulse Resp B/P (MAP) Pulse Ox O2 O2 Flow FiO2 Time Delivery Rate 12/27/18 97.8 93 18 146/69 92 11:15 (94) 12/27/18 21 09:21 12/27/18 Room Air 8.0 07:51 Intake and Output 12/26/18 12/26/18 12/27/18 1515:00 23:00 07:00 IntakeIntake Total 1100 ml 200 ml BalanceBalance 1100 ml 200 ml Results Result Diagram: 12/27/18 0737 12/27/18 0737 Medications Medications Current Medications Levalbuterol (Xopenex Neb) 1.25 mg Q4H RESP THERAPY PRN HHN sob Last administered on 12/18/18at 08:41; Admin Dose 1.25 MG; Start 12/16/18 at 02:00 Albumin Human 250 ml @ 500 mls/hr PRN PRN IV CVP< 8, OR SBP<90 Last administered on 12/19/18at 15:54; Admin Dose 500 MLS/HR; Start 12/18/18 at 20:30 Oxycodone/ Acetaminophen (Percocet (5/ 325)) 1 tab Q3H PRN PO PAIN LEVEL 1-5 Last administered on 12/27/18at 05:20; Admin Dose 1 TAB; Start 12/18/18 at 20:30 Oxycodone/ Acetaminophen (Percocet (5/ 325)) 2 tab Q3H PRN PO PAIN LEVEL 6-10 Last administered on 12/26/18at 20:13; Admin Dose 2 TAB; Start 12/18/18 at 20:30 Ondansetron HCl (Zofran Inj) 4 mg Q6H PRN IV NAUSEA AND/OR VOMITING; Start 12/18/18 at 20:30 Famotidine (Pepcid) 20 mg BID PO Last administered on 12/27/18at 08:15; Admin Dose 20 MG; Start 12/18/18 at 21:00 Acetaminophen (Tylenol Tab) 650 mg Q3H PRN PO ELEVATED TEMPERATURE Last administered on 12/21/18at 20:11; Admin Dose 650 MG; Start 12/18/18 at 20:30 Atorvastatin Calcium (Lipitor) 80 mg HS PO Last administered on 12/26/18 20:46; Admin Dose 80 MG; Start 12/18/18 at 21:00 Acetaminophen (Tylenol Liquid) 650 mg Q4H PRN NGT MILD PAIN(1-3)OR ELEVATED TEMP Last administered on 12/20/18 06:00; Admin Dose 650 MG; Start 12/20/18 at 06:00 Lorazepam (Ativan) 2 mg Q6H PRN IV Anxiety; Start 12/20/18 at 11:30 Hydralazine HCl (Apresoline) 10 mg Q6H PRN IV SBP>160; Start 12/20/18 at 11:30 Insulin Aspart (Novolog Insulin Pen) NOVOLOG *MILD* ALGORITHM WITH MEALS BEDTIME SC Last administered on 12/27/18 12:13; Admin Dose 2 UNIT; Start 12/20/18 at 13:00 Metoprolol Tartrate (Lopressor) 50 mg BID PO Last administered on 12/27/18 08:16; Admin Dose 50 MG; Start 12/20/18 at 14:30 Gabapentin (Neurontin) 300 mg TID PO Last administered on 12/27/18 12:07; Admin Dose 300 MG; Start 12/22/18 at 13:00 Linagliptin (Tradjenta) 5 mg DAILY PO Last administered on 12/27/18 08:15; Admin Dose 5 MG; Start 12/23/18 at 18:30 Metformin HCl (Glucophage) 1,000 mg BID WITH MEALS PO Last administered on 12/27/18 08:14; Admin Dose 1,000 MG; Start 12/23/18 at 18:30 Aspirin (Aspirin) 81 mg DAILY PO Last administered on 12/27/18 08:15; Admin Dose 81 MG; Start 12/24/18 at 12:00 Clopidogrel Bisulfate (plaVIX) 75 mg DAILY PO Last administered on 12/27/18 08:15; Admin Dose 75 MG; Start 12/24/18 at 12:00 Enoxaparin Sodium (Lovenox) 40 mg DAILY SC Last administered on 12/27/18 08:27; Admin Dose 40 MG; Start 12/25/18 at 09:00 Albuterol/ Ipratropium (Duoneb) 3 ml Q6HWA RESP THERAPY HHN Last administered on 5/10/19at 08:30; Admin Dose 3 ML; Start 12/24/18 at 14:00 Albuterol/ Ipratropium (Duoneb) 3 ml Q2H RESP THERAPY PRN HHN shortness of breath; Start 12/24/18 at 11:00 Budesonide (Pulmicort (Neb)) 0.5 mg BID RESP THERAPY HHN Last administered on 12/27/18at 09:18; Admin Dose 0.5 MG; Start 12/24/18 at 12:00 Insulin Aspart (Novolog Insulin Pen) 18 unit WITH MEALS SC Last administered on 12/27/18at 12:12; Admin Dose 18 UNIT; Start 12/26/18 at 17:55 Insulin Glargine (Lantus) 45 units DAILY@0800 SC Last administered on 12/27/18at 08:18; Admin Dose 45 UNITS; Start 12/27/18 at 08:00 Miscellaneous Information 1 ea NOTE XX ; Start 12/26/18 at 12:30 Glucose (Glutose) 15 gm Q15M PRN PO DECREASED GLUCOSE; Start 12/26/18 at 12:30 Glucose (Glutose) 22.5 gm Q15M PRN PO DECREASED GLUCOSE; Start 12/26/18 at 12:30 Dextrose (D50w Syringe) 25 ml Q15M PRN IV DECREASED GLUCOSE; Start 12/26/18 at 12:30 Dextrose (D50w Syringe) 50 ml Q15M PRN IV DECREASED GLUCOSE; Start 12/26/18 at 12:30 Glucagon (Glucagen) 1 mg Q15M PRN IM DECREASED GLUCOSE; Start 12/26/18 at 12:30 Glucose (Glutose) 15 gm Q15M PRN BUCCAL DECREASED GLUCOSE; Start 12/26/18 at 12:30 Bumetanide (Bumex) 1 mg BID PO ; Start 12/28/18 at 09:00 Bumetanide 2 mg/ Dextrose 25 ml @ 50 mls/hr ONCE ONCE IV ; Start 12/27/18 at 12:30; Stop 12/27/18 at 12:59 Bumetanide 2 mg/ Dextrose 25 ml @ 50 mls/hr ONCE ONCE IV ; Start 12/27/18 at 17:00; Stop 12/27/18 at 17:29 VTE Prophylaxis Risk score (from Nsg)>0 risk: 4 SCD applied (from Nsg): Yes Lines/Catheters IV Catheter Type: Hooks in Place: No Assessment/Plan Hospital Course Subjective Patient doing well, but still desat slightly while ambulating Objective Physical exam General: Patient is laying in bed and answers questions appropriately Mentation: Patient is alert and oriented 4, Head: Normocephalic atraumatic Eyes: EOMI, pupils reactive to light Neck: Supple, nontender, midline Respiratory: mildly coarse to auscultation bilaterally Cardiovascular: regular rate, no obvious murmurs Gastrointestinal: non-tender to palpation, bowel sounds heard. Neurological: Moves all extremities spontaneously Skin: Surgical site bandaged, CDI ASSESSMENT & PLAN This is a 63-year-old male with comorbidities including diabetes mellitus, left foot osteomyelitis, hypertension, obesity, chronic kidney disease, peripheral artery disease, and alcohol abuse. The patient came to the emergency room with chief complaint of abdominal pain, distension and occasional radiation of pain to the chest. He was noticed to have NSTEMI. NSTEMI. -S/P LHC on 12/17/2018 that showed significant 3-vessel CAD. -S/P CABG x4, SVG to LAD, SVG to OM1 sequenced to OM2, SVG to PDA on 12/18/2018. -extubated 12/20/18 -wound vac removed -doing well Mild fevers, resolved -Patient asymptomatic -ID on board, Dr. Tsai -IV antibiotic stopped -Cultures -UA neg Acute respiratory failure. -Resolving significantly, on nasal cannula, will attempt to titrate off. -Continue supplemental O2. -Continue inhaled bronchodilators. -resolving - Fluid overload. -Etiology could be multifactorial. -2D echocardiogram showing preserved LVEF. -Known history of significant proteinuria, suggesting nephrotic syndrome. -Diuretics as clinically indicated. Will give extra doses of IV diuretic today, increase scheduled diuretic per cardiology Diabetes mellitus type 2. -Hemoglobin A1c 10.7. -Currently on insulin drip. Peripheral artery disease. -Status post left tibioperoneal trunk balloon angioplasty, left femoral poplite al artery stenting, and left femoral popliteal artery balloon angioplasty on 03/22/2017. -Continue antiplatelet therapy as per radiology specialist Hypertension. -Continue antihypertensives. Pulmonary hypertension. -PA systolic pressure of 52 mm Hg. E. coli ESBL in urine wound 12/18/2018. resolved -[place] count <10,000 CFU per mL. -completed course of carbapenams -Repeat urine studies negative. -S/P ID evaluation. Obesity. -BMI 31.5 kg/m -Weight reduction advised. Normocytic, normochromic anemia. -Monitor H&H closely. Alcohol abuse. -Continue multivitamins. Generalized anxiety. -PRN benzodiazepines. ANGEL. -Monitor BUN and creatinine closely. -Use nephrotoxic drugs with caution. -Nephrology on board. DVT proph: -40 lovenox daily Plan. -Patient doing well, however continues to desat slightly with ambulation, however does not meet criteria for oxygen at this time, but too low for safe DC without O2, will continue to diurese. More IV one-time dose is given today, will increase scheduled diuretics as well per cardiology recommendations, anticipate discharge in 1 to 2 days. RENU WHITE December 27, 2018 12:20
[2018-12-27] MEDS ORDERED: BUMETANIDE 2 MG in DEXTROSE 5% 17 ML IV ONE ×3 (12:30→19:30)
--- NOTE | 2018-12-27 14:45 | PN ---
DATE: 12/27/2018 SUBJECTIVE: Chart was reviewed. The patient is doing well. Some desaturation while ambulation. Th e patient is still quite weak. PHYSICAL EXAMINATION: VITAL SIGNS: Blood pressure 146/69, pulse 93, respiration 18, temperature 97.8. HEENT: Pupils are equal and react to light. NECK: Supple. No JVD noted, no cervical adenopathy noted. LUNGS: Fair breath sounds bilaterally. CARDIOVASCULAR: S1, S2 normal. ABDOMEN: Soft, nontender, no megaly or masses noted. EXTREMITIES: No clubbing or cyanosis noted. NEUROLOGICAL: Awake. LABORATORY DATA: WBC 11.6, hemoglobin 8.9, hematocrit 28, platelet 701. Sodium 137, potassium 4.3, chloride 101, CO2 of 29, BUN 19, creatinine 1.2, glucose 175. IMPRESSION: 1. Status post respiratory failure. 2. Status post coronary artery bypass graft. 3. Non-ST elevation myocardial infarction. 4. Acute kidney injury. 5. Congestive heart failure. RECOMMENDATIONS: 1. Gentle diuresis today. 2. Oxygen p.r.n. 3. Consider transfer to [facility] facility for physical therapy. 4. Postop followup. Dictated By: MIAH JORGE MD, MA/NTS Conf#: [id number] DID#: [id number] CC: JUAN M VENEGAS MD; RENU WHITE MD;*End*
[2018-12-27] MEDS: ATORVASTATIN 80 MG TAB PO SCH (22:13)
[2018-12-28] VITALS (11 sets, daily range): BP systolic 116–150; BP diastolic 56–68; PULSE 72–84; RESP 18–20
[2018-12-28] MEDS: metFORMIN 500 MG TAB PO SCH ×2 (08:00→17:48)
[2018-12-28] MEDS: INSULIN ASPART [NOVOLOG] 3 ML PEN SC SCH ×8 (08:07→20:25)
[2018-12-28] MEDS: INSULIN GLARGINE [LANTus] (100 UNITS/ML) SYG SC SCH (08:07)
[2018-12-28] MEDS: BUMETANIDE 1 MG TAB PO SCH ×2 (08:14→20:15)
[2018-12-28] MEDS: GABAPENTIN 300 MG CAP PO SCH ×3 (08:15→20:15)
[2018-12-28] MEDS: METOPROLOL 50 MG TAB PO SCH ×2 (08:15→20:19)
[2018-12-28] MEDS: BALSAM PERU/CASTOR OIL 60 GM TUBE TOP SCH ×2 (08:16→20:25)
[2018-12-28] MEDS: LINAGLIPTIN 5 MG TABLET PO SCH (08:16)
[2018-12-28] MEDS: ASPIRIN 81 MG TAB PO SCH (08:16)
[2018-12-28] MEDS: CLOPIDOGREL 75 MG TAB PO SCH (08:16)
[2018-12-28] MEDS: FAMOTIDINE 20 MG TAB PO SCH ×2 (08:19→20:16)
[2018-12-28] MEDS: ENOXAPARIN 40 MG/0.4 ML SYG SC SCH (08:22)
[2018-12-28] MEDS: BUDESONIDE (NEB) 0.5MG/2ML AMP HHN SCH ×2 (08:45→20:28)
[2018-12-28] MEDS: ALBUTEROL/IPRATROPIUM (NEB) 3 ML AMP HHN SCH ×3 (08:45→20:28)
--- NOTE | 2018-12-28 11:58 | CONS ---
Assessment/Plan Assessment/Plan Hospital Course (Demo Recall) 1. Nonoliguric acute kidney injury. Etiology of acute kidney injury is secondary to acute tubular necrosis. Renal function overall improved with mild rise due to iv diuretic use. now on bumex po. Continue current treatment plan, supportive care, renally dose all medications. 2. Anemia. Monitor hemoglobin and hematocrit levels. 3. Mineral bone disorder, monitor calcium and phosphorus levels. 4. Hypernatremia, resolved. 5. Acute diastolic heart failure. improved fluid status 6. Coronary artery disease, status post coronary artery bypass graft. Continue to monitor. 7. Peripheral vascular disease. Continue medical management. 8. Diabetes. Continue current insulin regimen. 9. Hypertension. Continue current blood pressure regimen. Blood pressure is well controlled. 10. Dyslipidemia. Continue statin therapy. Consultation Date/Type/Reason Admit Date/Time Dec 15, 2018 at 16:16 Initial Consult Date 12/19/18 Requesting Provider: JUAN M VENEGAS Date/Time of Note DATE: 12/28/18 TIME: 11:57 24 HR Interval Summary Free Text/Dictation denies shortness of breath afebrile gen nad cv rrr pulm ctab abd soft, nd, nt +bs ext: no edema Exam/Review of Systems Exam Vitals Vital Signs Date Temp Pulse Resp B/P (MAP) Pulse Ox O2 O2 Flow FiO2 Time Delivery Rate 12/28/18 98.2 83 20 141/68 93 11:22 (92) 12/28/18 21 08:46 12/27/18 Room Air 16:50 12/27/18 8.0 07:51 Intake and Output 12/27/18 12/27/18 12/28/18 1515:00 23:00 07:00 IntakeIntake Total 1025 ml 450 ml BalanceBalance 1025 ml 450 ml Results Result Diagram: 12/28/18 0532 12/28/18 0532 Results 24hrs Laboratory Tests Test 12/27/18 12:08 12/27/18 17:24 12/27/18 22:19 12/28/18 05:32 Bedside Glucose 194 129 151 White Blood Count 10.2 Red Blood Count 2.66 L Hemoglobin 8.1 L Hematocrit 25.4 L Mean Corpuscular 95.5 Volume Mean Corpuscular 30.5 Hemoglobin Mean Corpuscular 31.9 L Hemoglobin Concent Red Cell 14.0 Distribution Width Platelet Count 602 H Mean Platelet Volume 9.5 Immature 0.900 H Granulocytes % Neutrophils % 68.3 Lymphocytes % 17.6 Monocytes % 9.6 Eosinophils % 2.8 Basophils % 0.8 Nucleated Red Blood 0.0 Cells % Immature 0.090 H Granulocytes # Neutrophils # 7.0 Lymphocytes # 1.8 Monocytes # 1.0 H Eosinophils # 0.3 Basophils # 0.1 Nucleated Red Blood 0.0 Cells # Sodium Level 138 Potassium Level 4.3 Chloride Level 103 Carbon Dioxide Level 28 Anion Gap 7 Blood Urea Nitrogen 18 Creatinine 1.25 H Est Glomerular 58 L Filtrat Rate mL/min Glucose Level 151 Calcium Level 8.4 Phosphorus Level 3.6 Magnesium Level 1.7 Test 12/28/18 07:56 Bedside Glucose 183 Medications Medication Current Medications Levalbuterol (Xopenex Neb) 1.25 mg Q4H RESP THERAPY PRN HHN sob Last administered on 12/18/18 08:41; Admin Dose 1.25 MG; Start 12/16/18 at 02:00 Albumin Human 250 ml @ 500 mls/hr PRN PRN IV CVP< 8, OR SBP<90 Last administered on 12/19/18 15:54; Admin Dose 500 MLS/HR; Start 12/18/18 at 20:30 Oxycodone/ Acetaminophen (Percocet (5/ 325)) 1 tab Q3H PRN PO PAIN LEVEL 1-5 Last administered on 12/27/18 13:15; Admin Dose 1 TAB; Start 12/18/18 at 20:30 Oxycodone/ Acetaminophen (Percocet (5/ 325)) 2 tab Q3H PRN PO PAIN LEVEL 6-10 Last administered on 12/27/18at 22:14; Admin Dose 2 TAB; Start 12/18/18 at 20:30 Ondansetron HCl (Zofran Inj) 4 mg Q6H PRN IV NAUSEA AND/OR VOMITING; Start 12/18/18 at 20:30 Famotidine (Pepcid) 20 mg BID PO Last administered on 12/28/18 08:19; Admin Dose 20 MG; Start 12/18/18 at 21:00 Acetaminophen (Tylenol Tab) 650 mg Q3H PRN PO ELEVATED TEMPERATURE Last administered on 12/21/18 20:11; Admin Dose 650 MG; Start 12/18/18 at 20:30 Atorvastatin Calcium (Lipitor) 80 mg HS PO Last administered on 12/27/18 22:13; Admin Dose 80 MG; Start 12/18/18 at 21:00 Acetaminophen (Tylenol Liquid) 650 mg Q4H PRN NGT MILD PAIN(1-3)OR ELEVATED TEMP Last administered on 12/20/18 06:00; Admin Dose 650 MG; Start 12/20/18 at 06:00 Lorazepam (Ativan) 2 mg Q6H PRN IV Anxiety; Start 12/20/18 at 11:30 Hydralazine HCl (Apresoline) 10 mg Q6H PRN IV SBP>160; Start 12/20/18 at 11:30 Insulin Aspart (Novolog Insulin Pen) NOVOLOG *MILD* ALGORITHM WITH MEALS BEDTIME SC Last administered on 12/28/18 08:08; Admin Dose 2 UNIT; Start 12/20/18 at 13:00 Metoprolol Tartrate (Lopressor) 50 mg BID PO Last administered on 12/28/18 08:15; Admin Dose 50 MG; Start 12/20/18 at 14:30 Gabapentin (Neurontin) 300 mg TID PO Last administered on 12/28/18 08:15; Admin Dose 300 MG; Start 12/22/18 at 13:00 Linagliptin (Tradjenta) 5 mg DAILY PO Last administered on 12/28/18 08:16; Admin Dose 5 MG; Start 12/23/18 at 18:30 Metformin HCl (Glucophage) 1,000 mg BID WITH MEALS PO Last administered on 12/28/18 08:00; Admin Dose 1,000 MG; Start 12/23/18 at 18:30 Aspirin (Aspirin) 81 mg DAILY PO Last administered on 12/28/18 08:16; Admin Dose 81 MG; Start 12/24/18 at 12:00 Clopidogrel Bisulfate (plaVIX) 75 mg DAILY PO Last administered on 12/28/18 08:16; Admin Dose 75 MG; Start 12/24/18 at 12:00 Enoxaparin Sodium (Lovenox) 40 mg DAILY SC Last administered on 12/28/18 08:22; Admin Dose 40 MG; Start 12/25/18 at 09:00 Albuterol/ Ipratropium (Duoneb) 3 ml Q6HWA RESP THERAPY HHN Last administered on 12/28/18 08:45; Admin Dose 3 ML; Start 12/24/18 at 14:00 Albuterol/ Ipratropium (Duoneb) 3 ml Q2H RESP THERAPY PRN HHN shortness of breath; Start 12/24/18 at 11:00 Budesonide (Pulmicort (Neb)) 0.5 mg BID RESP THERAPY HHN Last administered on 12/28/18 08:45; Admin Dose 0.5 MG; Start 12/24/18 at 12:00 Insulin Aspart (Novolog Insulin Pen) 18 unit WITH MEALS SC Last administered on 12/28/18 08:07; Admin Dose 18 UNIT; Start 12/26/18 at 17:55 Insulin Glargine (Lantus) 45 units DAILY@0800 SC Last administered on 12/28/18 08:07; Admin Dose 45 UNITS; Start 12/27/18 at 08:00 Miscellaneous Information 1 ea NOTE XX ; Start 12/26/18 at 12:30 Glucose (Glutose) 15 gm Q15M PRN PO DECREASED GLUCOSE; Start 12/26/18 at 12:30 Glucose (Glutose) 22.5 gm Q15M PRN PO DECREASED GLUCOSE; Start 12/26/18 at 12:30 Dextrose (D50w Syringe) 25 ml Q15M PRN IV DECREASED GLUCOSE; Start 12/26/18 at 12:30 Dextrose (D50w Syringe) 50 ml Q15M PRN IV DECREASED GLUCOSE; Start 12/26/18 at 12:30 Glucagon (Glucagen) 1 mg Q15M PRN IM DECREASED GLUCOSE; Start 12/26/18 at 12:30 Glucose (Glutose) 15 gm Q15M PRN BUCCAL DECREASED GLUCOSE; Start 12/26/18 at 12:30 Bumetanide (Bumex) 1 mg BID PO Last administered on 12/28/18at 08:14; Admin Dose 1 MG; Start 12/28/18 at 09:00 BRYANT WHITE MD December 28, 2018 11:58
--- NOTE | 2018-12-28 14:13 | PN ---
Date/Time of Note Date/Time of Note DATE: 12/28/18 TIME: 14:12 Objective Vitals Vital Signs Date Temp Pulse Resp B/P (MAP) Pulse Ox O2 O2 Flow FiO2 Time Delivery Rate 12/28/18 82 13:37 12/28/18 18 93 21 13:16 12/28/18 98.2 141/68 11:22 (92) 12/27/18 Room Air 16:50 12/27/18 8.0 07:51 Intake and Output 12/27/18 12/27/18 12/28/18 1515:00 23:00 07:00 IntakeIntake Total 1025 ml 450 ml BalanceBalance 1025 ml 450 ml Results Result Diagram: 12/28/18 0532 12/28/18 0532 Medications Medications Current Medications Levalbuterol (Xopenex Neb) 1.25 mg Q4H RESP THERAPY PRN HHN sob Last administered on 12/18/18 08:41; Admin Dose 1.25 MG; Start 12/16/18 at 02:00 Albumin Human 250 ml @ 500 mls/hr PRN PRN IV CVP< 8, OR SBP<90 Last administered on 12/19/18 15:54; Admin Dose 500 MLS/HR; Start 12/18/18 at 20:30 Oxycodone/ Acetaminophen (Percocet (5/ 325)) 1 tab Q3H PRN PO PAIN LEVEL 1-5 Last administered on 12/27/18 13:15; Admin Dose 1 TAB; Start 12/18/18 at 20:30 Oxycodone/ Acetaminophen (Percocet (5/ 325)) 2 tab Q3H PRN PO PAIN LEVEL 6-10 Last administered on 12/27/18at 22:14; Admin Dose 2 TAB; Start 12/18/18 at 20:30 Ondansetron HCl (Zofran Inj) 4 mg Q6H PRN IV NAUSEA AND/OR VOMITING; Start 12/18/18 at 20:30 Famotidine (Pepcid) 20 mg BID PO Last administered on 12/28/18 08:19; Admin Dose 20 MG; Start 12/18/18 at 21:00 Acetaminophen (Tylenol Tab) 650 mg Q3H PRN PO ELEVATED TEMPERATURE Last administered on 12/21/18 20:11; Admin Dose 650 MG; Start 12/18/18 at 20:30 Atorvastatin Calcium (Lipitor) 80 mg HS PO Last administered on 12/27/18 22:13; Admin Dose 80 MG; Start 12/18/18 at 21:00 Acetaminophen (Tylenol Liquid) 650 mg Q4H PRN NGT MILD PAIN(1-3)OR ELEVATED TEMP Last administered on 12/20/18 06:00; Admin Dose 650 MG; Start 12/20/18 at 06:00 Lorazepam (Ativan) 2 mg Q6H PRN IV Anxiety; Start 12/20/18 at 11:30 Hydralazine HCl (Apresoline) 10 mg Q6H PRN IV SBP>160; Start 12/20/18 at 11:30 Insulin Aspart (Novolog Insulin Pen) NOVOLOG *MILD* ALGORITHM WITH MEALS BEDTIME SC Last administered on 12/28/18 08:08; Admin Dose 2 UNIT; Start 12/20/18 at 13:00 Metoprolol Tartrate (Lopressor) 50 mg BID PO Last administered on 12/28/18 08:15; Admin Dose 50 MG; Start 12/20/18 at 14:30 Gabapentin (Neurontin) 300 mg TID PO Last administered on 12/28/18 12:12; Admin Dose 300 MG; Start 12/22/18 at 13:00 Linagliptin (Tradjenta) 5 mg DAILY PO Last administered on 12/28/18 08:16; Admin Dose 5 MG; Start 12/23/18 at 18:30 Metformin HCl (Glucophage) 1,000 mg BID WITH MEALS PO Last administered on 12/28/18 08:00; Admin Dose 1,000 MG; Start 12/23/18 at 18:30 Aspirin (Aspirin) 81 mg DAILY PO Last administered on 12/28/18 08:16; Admin Dose 81 MG; Start 12/24/18 at 12:00 Clopidogrel Bisulfate (plaVIX) 75 mg DAILY PO Last administered on 12/28/18 08:16; Admin Dose 75 MG; Start 12/24/18 at 12:00 Enoxaparin Sodium (Lovenox) 40 mg DAILY SC Last administered on 12/28/18 08:22; Admin Dose 40 MG; Start 12/25/18 at 09:00 Albuterol/ Ipratropium (Duoneb) 3 ml Q6HWA RESP THERAPY HHN Last administered on 12/28/18at 13:14; Admin Dose 3 ML; Start 12/24/18 at 14:00 Albuterol/ Ipratropium (Duoneb) 3 ml Q2H RESP THERAPY PRN HHN shortness of breath; Start 12/24/18 at 11:00 Budesonide (Pulmicort (Neb)) 0.5 mg BID RESP THERAPY HHN Last administered on 12/28/18at 08:45; Admin Dose 0.5 MG; Start 12/24/18 at 12:00 Insulin Aspart (Novolog Insulin Pen) 18 unit WITH MEALS SC Last administered on 12/28/18at 12:27; Admin Dose 18 UNIT; Start 12/26/18 at 17:55 Insulin Glargine (Lantus) 45 units DAILY@0800 SC Last administered on 12/28/18at 08:07; Admin Dose 45 UNITS; Start 12/27/18 at 08:00 Miscellaneous Information 1 ea NOTE XX ; Start 12/26/18 at 12:30 Glucose (Glutose) 15 gm Q15M PRN PO DECREASED GLUCOSE; Start 12/26/18 at 12:30 Glucose (Glutose) 22.5 gm Q15M PRN PO DECREASED GLUCOSE; Start 12/26/18 at 12:30 Dextrose (D50w Syringe) 25 ml Q15M PRN IV DECREASED GLUCOSE; Start 12/26/18 at 12:30 Dextrose (D50w Syringe) 50 ml Q15M PRN IV DECREASED GLUCOSE; Start 12/26/18 at 12:30 Glucagon (Glucagen) 1 mg Q15M PRN IM DECREASED GLUCOSE; Start 12/26/18 at 12:30 Glucose (Glutose) 15 gm Q15M PRN BUCCAL DECREASED GLUCOSE; Start 12/26/18 at 12:30 Bumetanide (Bumex) 1 mg BID PO Last administered on 12/28/18at 08:14; Admin Dose 1 MG; Start 12/28/18 at 09:00 VTE Prophylaxis Risk score (from Nsg)>0 risk: 4 SCD applied (from Nsg): Yes Lines/Catheters IV Catheter Type: Hooks in Place: No Assessment/Plan Hospital Course Subjective Patient doing well, but still desat slightly while ambulating Objective Physical exam General: Patient is laying in bed and answers questions appropriately Mentation: Patient is alert and oriented 4, Head: Normocephalic atraumatic Eyes: EOMI, pupils reactive to light Neck: Supple, nontender, midline Respiratory: mildly coarse to auscultation bilaterally Cardiovascular: regular rate, no obvious murmurs Gastrointestinal: non-tender to palpation, bowel sounds heard. Neurological: Moves all extremities spontaneously Skin: Surgical site bandaged, CDI ASSESSMENT & PLAN This is a 63-year-old male with comorbidities including diabetes mellitus, left foot osteomyelitis, hypertension, obesity, chronic kidney disease, peripheral artery disease, and alcohol abuse. The patient came to the emergency room with chief complaint of abdominal pain, distension and occasional radiation of pain to the chest. He was noticed to have NSTEMI. NSTEMI. -S/P LHC on 12/17/2018 that showed significant 3-vessel CAD. -S/P CABG x4, SVG to LAD, SVG to OM1 sequenced to OM2, SVG to PDA on 12/18/2018. -extubated 12/20/18 -wound vac removed -doing well Mild fevers, resolved -Patient asymptomatic -ID on board, Dr. Tsai -IV antibiotic stopped -Cultures -UA neg Acute respiratory failure. -Resolving significantly, on nasal cannula, will attempt to titrate off. -Continue supplemental O2. -Continue inhaled bronchodilators. -resolving - Fluid overload. -Etiology could be multifactorial. -2D echocardiogram showing preserved LVEF. -Known history of significant proteinuria, suggesting nephrotic syndrome. -Diuretics as clinically indicated. Increased scheduled Bumex to twice a day Diabetes mellitus type 2. -Hemoglobin A1c 10.7. -Currently on insulin drip. Peripheral artery disease. -Status post left tibioperoneal trunk balloon angioplasty, left femoral popliteal artery stenting, and left femoral popliteal artery balloon angioplasty on 03/22/2017. 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 -Continue antihypertensives. Pulmonary hypertension. -[place] systolic pressure of 52 mm Hg. E. coli ESBL in urine wound 12/18/2018. resolved -[place] count <10,000 CFU per mL. -completed course of carbapenams -Repeat urine studies negative. -S/P ID evaluation. Obesity. -BMI 31.5 kg/m -Weight reduction advised. Normocytic, normochromic anemia. -Monitor H&H closely. Alcohol abuse. -Continue multivitamins. Generalized anxiety. -PRN benzodiazepines. ANGEL. -Monitor BUN and creatinine closely. -Use nephrotoxic drugs with caution. -Nephrology on board. DVT proph: -40 lovenox daily Disposition -Continue to attempt to wean patient off oxygen as he continues to desaturate when ambulation on room air, Bumex has been increased, monitor, discharge when able. RENU WHITE December 28, 2018 14:13
[2018-12-28] MEDS: OXYCODONE/ACETAMINOPHEN (5/325) TAB PO PRN (16:50)
[2018-12-28] MEDS: ATORVASTATIN 80 MG TAB PO SCH (20:15)
--- NOTE | 2018-12-28 22:10 | CONS ---
Consult Date/Type/Reason Admit Date/Time Dec 15, 2018 at 16:16 Initial Consult Date 12/19/18 Type of Consultation: Pulm/CCM Requesting Provider: JUAN M VENEGAS Date/Time of Note DATE: 12/28/18 TIME: 22:07 Subjective No events over night. Objective Vitals Vital Signs Date Temp Pulse Resp B/P (MAP) Pulse Ox O2 O2 Flow FiO2 Time Delivery Rate 12/28/18 76 20:50 12/28/18 18 95 21 20:28 12/28/18 98.3 126/58 20:00 (80) 12/27/18 Room Air 16:50 12/27/18 8.0 07:51 Intake and Output 12/27/18 12/27/18 12/28/18 1515:00 23:00 07:00 IntakeIntake Total 1025 ml 450 ml BalanceBalance 1025 ml 450 ml Exam HEENT: Neck supple; no JVD; no LAD CVS: RRR, S1 and S2 CHEST: Bibasilar rales ABD: Soft, NT, + BS EXT: No c/c; + tr edema Results/Medications Result Diagram: 12/28/18 0532 12/28/18 0532 Results 24 hrs Laboratory Tests Test 12/27/18 22:19 12/28/18 05:32 12/28/18 07:56 12/28/18 12:10 Bedside Glucose 151 183 125 White Blood Count 10.2 Red Blood Count 2.66 L Hemoglobin 8.1 L Hematocrit 25.4 L Mean Corpuscular 95.5 Volume Mean Corpuscular 30.5 Hemoglobin Mean Corpuscular 31.9 L Hemoglobin Concent Red Cell 14.0 Distribution Width Platelet Count 602 H Mean Platelet Volume 9.5 Immature 0.900 H Granulocytes % Neutrophils % 68.3 Lymphocytes % 17.6 Monocytes % 9.6 Eosinophils % 2.8 Basophils % 0.8 Nucleated Red Blood 0.0 Cells % Immature 0.090 H Granulocytes # Neutrophils # 7.0 Lymphocytes # 1.8 Monocytes # 1.0 H Eosinophils # 0.3 Basophils # 0.1 Nucleated Red Blood 0.0 Cells # Sodium Level 138 Potassium Level 4.3 Chloride Level 103 Carbon Dioxide Level 28 Anion Gap 7 Blood Urea Nitrogen 18 Creatinine 1.25 H Est Glomerular 58 L Filtrat Rate mL/min Glucose Level 151 Calcium Level 8.4 Phosphorus Level 3.6 Magnesium Level 1.7 Test 12/28/18 17:45 12/28/18 20:22 Bedside Glucose 105 92 Home Meds Active Scripts Gabapentin* (Gabapentin*) 300 Mg Capsule, 300 MG PO TID, #90 CAP Prov:RADHA ROTHMAN 12/11/18 Ciprofloxacin Hcl* (Ciprofloxacin Hcl*) 250 Mg Tablet, 250 MG PO BID for 3 Days, #6 TAB Prov:RADHA ROTHMAN 12/11/18 Furosemide* (Furosemide*) 20 Mg Tablet, 20 MG PO DAILY for 3 Days, #3 TAB Prov:FOX JAVED 09/02/18 Omeprazole* (Omeprazole*) 20 Mg Capsule., 20 MG PO DAILY, #30 CAP Prov:RENU WHITE 08/22/18 Levofloxacin* (Levaquin*) 500 Mg Tablet, 500 MG PO DAILY for 5 Days, #5 TAB Prov:RENU WHITE 08/22/18 Salmeterol Xinaf/Fluticasone* (Advair*) 250-50 Diskus Inhaler, 1 INH INH BID for 30 Days Prov:SANAZ DAVIS MD 04/15/17 Aspirin* (Aspirin* EC) 81 Mg Tablet., 81 MG PO DAILY for 30 Days Prov:SANAZ DAVIS MD 04/15/17 Atorvastatin* (Atorvastatin*) 40 Mg Tablet, 40 MG PO HS for 30 Days, TAB Prov:SANAZ DAVIS MD 04/15/17 Clopidogrel Bisulfate (Clopidogrel) 75 Mg Tablet, 75 MG PO DAILY for 30 Days, TAB Prov:SANAZ DAVIS MD 04/15/17 Amlodipine Besylate* (Norvasc*) 5 Mg Tablet, 2.5 MG PO DAILY for 30 Days, TAB Prov:SANAZ DAVIS MD 04/15/17 Insulin Aspart* (Novolog Insulin Pen*) 100 Unit/Ml Soln, 15 UNIT SC WITH MEALS for 30 Days, #1 SYR Prov:BRANDON HERRERA [employer] 03/23/17 Metformin Hcl (Glucophage) 500 Mg Tablet, 1000 MG PO BID WITH MEALS for 30 Days, #60 TAB Prov:BRANDON HERRERA NP 03/23/17 Linagliptin (TRADJENTA) 5 Mg Tablet, 5 MG PO DAILY for 30 Days, #30 TAB Prov:BRANDON HERRERA [employer] 03/23/17 Insulin Glargine* (Lantus*) 100 Unit/Ml Soln, 45 UNIT SC HS for 30 Days, #1 SYR Prov:BRANDON HERRERA [employer] 03/23/17 Reported Medications Ergocalciferol (Vitamin D2) (VITAMIN D2) 2,000 Unit Tablet, 2000 UNIT PO DAILY, TAB 03/15/17 Medications Current Medications Levalbuterol (Xopenex Neb) 1.25 mg Q4H RESP THERAPY PRN HHN sob Last administered on 12/18/18at 08:41; Admin Dose 1.25 MG; Start 12/16/18 at 02:00 Albumin Human 250 ml @ 500 mls/hr PRN PRN IV CVP< 8, OR SBP<90 Last adminis tered on 12/19/18at 15:54; Admin Dose 500 MLS/HR; Start 12/18/18 at 20:30 Oxycodone/ Acetaminophen (Percocet (5/ 325)) 1 tab Q3H PRN PO PAIN LEVEL 1-5 Last administered on 12/28/18at 16:50; Admin Dose 1 TAB; Start 12/18/18 at 20:30 Oxycodone/ Acetaminophen (Percocet (5/ 325)) 2 tab Q3H PRN PO PAIN LEVEL 6-10 Last administered on 12/27/18at 22:14; Admin Dose 2 TAB; Start 12/18/18 at 20:30 Ondansetron HCl (Zofran Inj) 4 mg Q6H PRN IV NAUSEA AND/OR VOMITING; Start 12/18/18 at 20:30 Famotidine (Pepcid) 20 mg BID PO Last administered on 12/28/18at 20:16; Admin Dose 20 MG; Start 12/18/18 at 21:00 Acetaminophen (Tylenol Tab) 650 mg Q3H PRN PO ELEVATED TEMPERATURE Last administered on 12/21/18 20:11; Admin Dose 650 MG; Start 12/18/18 at 20:30 Atorvastatin Calcium (Lipitor) 80 mg HS PO Last administered on 12/28/18at 20:15; Admin Dose 80 MG; Start 12/18/18 at 21:00 Acetaminophen (Tylenol Liquid) 650 mg Q4H PRN NGT MILD PAIN(1-3)OR ELEVATED TEMP Last administered on 12/20/18 06:00; Admin Dose 650 MG; Start 12/20/18 at 06:00 Lorazepam (Ativan) 2 mg Q6H PRN IV Anxiety; Start 12/20/18 at 11:30 Hydralazine HCl (Apresoline) 10 mg Q6H PRN IV SBP>160; Start 12/20/18 at 11:30 Insulin Aspart (Novolog Insulin Pen) NOVOLOG *MILD* ALGORITHM WITH MEALS BEDTIME SC Last administered on 12/28/18 08:08; Admin Dose 2 UNIT; Start 12/20/18 at 13:00 Metoprolol Tartrate (Lopressor) 50 mg BID PO Last administered on 12/28/18 20:19; Admin Dose 50 MG; Start 12/20/18 at 14:30 Gabapentin (Neurontin) 300 mg TID PO Last administered on 12/28/18 20:15; Admin Dose 300 MG; Start 12/22/18 at 13:00 Linagliptin (Tradjenta) 5 mg DAILY PO Last administered on 12/28/18 08:16; Admin Dose 5 MG; Start 12/23/18 at 18:30 Metformin HCl (Glucophage) 1,000 mg BID WITH MEALS PO Last administered on 12/28/18 17:48; Admin Dose 1,000 MG; Start 12/23/18 at 18:30 Aspirin (Aspirin) 81 mg DAILY PO Last administered on 12/28/18 08:16; Admin Dose 81 MG; Start 12/24/18 at 12:00 Clopidogrel Bisulfate (plaVIX) 75 mg DAILY PO Last administered on 12/28/18 08:16; Admin Dose 75 MG; Start 12/24/18 at 12:00 Enoxaparin Sodium (Lovenox) 40 mg DAILY SC Last administered on 12/28/18 08:22; Admin Dose 40 MG; Start 12/25/18 at 09:00 Albuterol/ Ipratropium (Duoneb) 3 ml Q6HWA RESP THERAPY HHN Last administered on 12/28/18 20:28; Admin Dose 3 ML; Start 12/24/18 at 14:00 Albuterol/ Ipratropium (Duoneb) 3 ml Q2H RESP THERAPY PRN HHN shortness of breath; Start 12/24/18 at 11:00 Budesonide (Pulmicort (Neb)) 0.5 mg BID RESP THERAPY HHN Last administered on 12/28/18at 20:28; Admin Dose 0.5 MG; Start 12/24/18 at 12:00 Insulin Aspart (Novolog Insulin Pen) 18 unit WITH MEALS SC Last administered on 12/28/18at 17:57; Admin Dose 15 UNIT; Start 12/26/18 at 17:55 Insulin Glargine (Lantus) 45 units DAILY@0800 SC Last administered on 12/28/18at 08:07; Admin Dose 45 UNITS; Start 12/27/18 at 08:00 Miscellaneous Information 1 ea NOTE XX ; Start 12/26/18 at 12:30 Glucose (Glutose) 15 gm Q15M PRN PO DECREASED GLUCOSE; Start 12/26/18 at 12:30 Glucose (Glutose) 22.5 gm Q15M PRN PO DECREASED GLUCOSE; Start 12/26/18 at 12:30 Dextrose (D50w Syringe) 25 ml Q15M PRN IV DECREASED GLUCOSE; Start 12/26/18 at 12:30 Dextrose (D50w Syringe) 50 ml Q15M PRN IV DECREASED GLUCOSE; Start 12/26/18 at 12:30 Glucagon (Glucagen) 1 mg Q15M PRN IM DECREASED GLUCOSE; Start 12/26/18 at 12:30 Glucose (Glutose) 15 gm Q15M PRN BUCCAL DECREASED GLUCOSE; Start 12/26/18 at 12:30 Bumetanide (Bumex) 1 mg BID PO Last administered on 12/28/18at 20:15; Admin Dose 1 MG; Start 12/28/18 at 09:00 Assessment/Plan Assessment/Plan (Daily) IMP: 1. s/p Respiratory Failure 2. s/p CABG 3. s/p NSTEMI 4. s/p ANGEL 5. CHF 6. Leukocytosis/low grade fevers/possible pna RECS: 1. Mobilize OOB 2. ICS 3. De-esclate abx 4. Diuresis VU CALL MD December 28, 2018 22:10
[2018-12-29] VITALS (9 sets, daily range): BP systolic 107–154; BP diastolic 57–70; PULSE 74–86; RESP 18–19
[2018-12-29] MEDS: OXYCODONE/ACETAMINOPHEN (5/325) TAB PO PRN ×2 (03:55→18:26)
[2018-12-29] MEDS: INSULIN ASPART [NOVOLOG] 3 ML PEN SC SCH ×7 (07:55→20:30)
[2018-12-29] MEDS: BUMETANIDE 1 MG TAB PO SCH ×2 (08:27→20:29)
[2018-12-29] MEDS: GABAPENTIN 300 MG CAP PO SCH ×3 (08:27→20:30)
[2018-12-29] MEDS: FAMOTIDINE 20 MG TAB PO SCH ×2 (08:27→20:29)
[2018-12-29] MEDS: ASPIRIN 81 MG TAB PO SCH (08:27)
[2018-12-29] MEDS: CLOPIDOGREL 75 MG TAB PO SCH (08:27)
[2018-12-29] MEDS: metFORMIN 500 MG TAB PO SCH ×2 (08:28→17:42)
[2018-12-29] MEDS: LINAGLIPTIN 5 MG TABLET PO SCH (08:28)
[2018-12-29] MEDS: METOPROLOL 50 MG TAB PO SCH ×2 (08:29→20:30)
[2018-12-29] MEDS: BALSAM PERU/CASTOR OIL 60 GM TUBE TOP SCH ×2 (08:30→20:30)
[2018-12-29] MEDS: INSULIN GLARGINE [LANTus] (100 UNITS/ML) SYG SC SCH (08:36)
[2018-12-29] MEDS: ENOXAPARIN 40 MG/0.4 ML SYG SC SCH (08:36)
[2018-12-29] MEDS: ALBUTEROL/IPRATROPIUM (NEB) 3 ML AMP HHN SCH ×3 (08:43→19:52)
[2018-12-29] MEDS: BUDESONIDE (NEB) 0.5MG/2ML AMP HHN SCH ×2 (08:44→19:52)
[2018-12-29] MEDS ORDERED: MAGNESIUM SULFATE 2 GM/50 ML 50 ML IVPB ONE (09:30)
[2018-12-29] MEDS: LISINOPRIL 5 MG TAB PO SCH (10:38)
--- NOTE | 2018-12-29 11:32 | CONS ---
Assessment/Plan Assessment/Plan Hospital Course (Demo Recall) 1. Nonoliguric acute kidney injury. Etiology of acute kidney injury is secondary to acute tubular necrosis. Renal function overall improved. now on bumex po. Continue current treatment plan, supportive care, renally dose all medications. 2. Anemia. Monitor hemoglobin and hematocrit levels. 3. Mineral bone disorder, monitor calcium and phosphorus levels. 4. Hypernatremia, resolved. 5. Acute diastolic heart failure. improved fluid status 6. Coronary artery disease, status post coronary artery bypass graft. Continue to monitor. 7. Peripheral vascular disease. Continue medical management. 8. Diabetes. Continue current insulin regimen. 9. Hypertension. Continue current blood pressure regimen. Blood pressure is well controlled. 10. Dyslipidemia. Continue statin therapy. Consultation Date/Type/Reason Admit Date/Time Dec 15, 2018 at 16:16 Initial Consult Date 12/19/18 Requesting Provider: JUAN M VENEGAS Date/Time of Note DATE: 12/29/18 TIME: 11:32 24 HR Interval Summary Free Text/Dictation shortness of breath improving no urinary issues Exam/Review of Systems Exam Vitals Vital Signs Date Temp Pulse Resp B/P (MAP) Pulse Ox O2 O2 Flow FiO2 Time Delivery Rate 12/29/18 74 09:11 12/29/18 93 21 08:47 12/29/18 20 08:44 12/29/18 98.0 129/57 07:43 (81) 12/27/18 Room Air 16:50 12/27/18 8.0 07:51 Intake and Output 12/28/18 12/28/18 12/29/18 1515:00 23:00 07:00 IntakeIntake Total 650 ml 600 ml OutputOutput Total 950 ml BalanceBalance -300 ml 600 ml Results Result Diagram: 12/29/18 0557 12/29/18 0557 Results 24hrs Laboratory Tests Test 12/28/18 12:10 12/28/18 17:45 12/28/18 20:22 12/29/18 05:57 Bedside Glucose 125 105 92 White Blood Count 9.7 Red Blood Count 2.90 L Hemoglobin 8.8 L Hematocrit 27.6 L Mean Corpuscular 95.2 Volume Mean Corpuscular 30.3 Hemoglobin Mean Corpuscular 31.9 L Hemoglobin Concent Red Cell 14.1 Distribution Width Platelet Count 662 H Mean Platelet Volume 9.3 Immature 0.700 H Granulocytes % Neutrophils % 71.1 Lymphocytes % 15.9 Monocytes % 8.6 Eosinophils % 2.7 Basophils % 1.0 Nucleated Red Blood 0.0 Cells % Immature 0.070 H Granulocytes # Neutrophils # 6.9 Lymphocytes # 1.5 Monocytes # 0.8 Eosinophils # 0.3 Basophils # 0.1 Nucleated Red Blood 0.0 Cells # Sodium Level 139 Potassium Level 4.0 Chloride Level 102 Carbon Dioxide Level 28 Anion Gap 9 Blood Urea Nitrogen 21 H Creatinine 1.12 Est Glomerular > 60 Filtrat Rate mL/min Glucose Level 135 Calcium Level 9.0 Phosphorus Level 4.5 Magnesium Level 1.6 L Test 12/29/18 07:57 Bedside Glucose 136 Medications Medication Current Medications Levalbuterol (Xopenex Neb) 1.25 mg Q4H RESP THERAPY PRN HHN sob Last admi nistered on 12/18/18 08:41; Admin Dose 1.25 MG; Start 12/16/18 at 02:00 Albumin Human 250 ml @ 500 mls/hr PRN PRN IV CVP< 8, OR SBP<90 Last administered on 12/19/18 15:54; Admin Dose 500 MLS/HR; Start 12/18/18 at 20:30 Oxycodone/ Acetaminophen (Percocet (5/ 325)) 1 tab Q3H PRN PO PAIN LEVEL 1-[address] administered on 12/29/18 03:55; Admin Dose 1 TAB; Start 12/18/18 at 20:30 Oxycodone/ Acetaminophen (Percocet (5/ 325)) 2 tab Q3H PRN PO PAIN LEVEL 6-10 Last administered on 12/27/18at 22:14; Admin Dose 2 TAB; Start 12/18/18 at 20:30 Ondansetron HCl (Zofran Inj) 4 mg Q6H PRN IV NAUSEA AND/OR VOMITING; Start 12/18/18 at 20:30 Famotidine (Pepcid) 20 mg BID PO Last administered on 12/29/18 08:27; Admin Dose 20 MG; Start 12/18/18 at 21:00 Acetaminophen (Tylenol Tab) 650 mg Q3H PRN PO ELEVATED TEMPERATURE Last administered on 12/21/18 20:11; Admin Dose 650 MG; Start 12/18/18 at 20:30 Atorvastatin Calcium (Lipitor) 80 mg HS PO Last administered on 12/28/18 20:15; Admin Dose 80 MG; Start 12/18/18 at 21:00 Acetaminophen (Tylenol Liquid) 650 mg Q4H PRN NGT MILD PAIN(1-3)OR ELEVATED TEMP Last administered on 12/20/18 06:00; Admin Dose 650 MG; Start 12/20/18 at 06:00 Lorazepam (Ativan) 2 mg Q6H PRN IV Anxiety; Start 12/20/18 at 11:30 Hydralazine HCl (Apresoline) 10 mg Q6H PRN IV SBP>160; Start 12/20/18 at 11:30 Insulin Aspart (Novolog Insulin Pen) NOVOLOG *MILD* ALGORITHM WITH MEALS BEDTIME SC Last administered on 12/28/18 08:08; Admin Dose 2 UNIT; Start 12/20/18 at 13:00 Metoprolol Tartrate (Lopressor) 50 mg BID PO Last administered on 12/29/18 08:29; Admin Dose 50 MG; Start 12/20/18 at 14:30 Gabapentin (Neurontin) 300 mg TID PO Last administered on 12/29/18 08:27; Admin Dose 300 MG; Start 12/22/18 at 13:00 Linagliptin (Tradjenta) 5 mg DAILY PO Last administered on 12/29/18 08:28; Admin Dose 5 MG; Start 12/23/18 at 18:30 Metformin HCl (Glucophage) 1,000 mg BID WITH MEALS PO Last administered on 12/29/18 08:28; Admin Dose 1,000 MG; Start 12/23/18 at 18:30 Aspirin (Aspirin) 81 mg DAILY PO Last administered on 12/29/18 08:27; Admin Dose 81 MG; Start 12/24/18 at 12:00 Clopidogrel Bisulfate (plaVIX) 75 mg DAILY PO Last administered on 12/29/18 08:27; Admin Dose 75 MG; Start 12/24/18 at 12:00 Enoxaparin Sodium (Lovenox) 40 mg DAILY SC Last administered on 12/29/18 08: 36; Admin Dose 40 MG; Start 12/25/18 at 09:00 Albuterol/ Ipratropium (Duoneb) 3 ml Q6HWA RESP THERAPY HHN Last administered on 12/29/18 08:43; Admin Dose 3 ML; Start 12/24/18 at 14:00 Albuterol/ Ipratropium (Duoneb) 3 ml Q2H RESP THERAPY PRN HHN shortness of breath; Start 12/24/18 at 11:00 Budesonide (Pulmicort (Neb)) 0.5 mg BID RESP THERAPY HHN Last administered on 12/29/18 08:44; Admin Dose 0.5 MG; Start 12/24/18 at 12:00 Insulin Aspart (Novolog Insulin Pen) 18 unit WITH MEALS SC Last administered on 12/29/18 08:36; Admin Dose 18 UNIT; Start 12/26/18 at 17:55 Insulin Glargine (Lantus) 45 units DAILY@0800 SC Last administered on 12/29/18 08:36; Admin Dose 45 UNITS; Start 12/27/18 at 08:00 Miscellaneous Information 1 ea NOTE XX ; Start 12/26/18 at 12:30 Glucose (Glutose) 15 gm Q15M PRN PO DECREASED GLUCOSE; Start 12/26/18 at 12:30 Glucose (Glutose) 22.5 gm Q15M PRN PO DECREASED GLUCOSE; Start 12/26/18 at 12:30 Dextrose (D50w Syringe) 25 ml Q15M PRN IV DECREASED GLUCOSE; Start 12/26/18 at 12:30 Dextrose (D50w Syringe) 50 ml Q15M PRN IV DECREASED GLUCOSE; Start 12/26/18 at 12:30 Glucagon (Glucagen) 1 mg Q15M PRN IM DECREASED GLUCOSE; Start 12/26/18 at 12:30 Glucose (Glutose) 15 gm Q15M PRN BUCCAL DECREASED GLUCOSE; Start 12/26/18 at 12:30 Bumetanide (Bumex) 1 mg BID PO Last administered on 12/29/18 08:27; Admin Dose 1 MG; Start 12/28/18 at 09:00 Lisinopril (Zestril) 5 mg DAILY PO Last administered on 12/29/18 10:38; Admin Dose 5 MG; Start 12/29/18 at 09:30 BRYANT WHITE MD December 29, 2018 11:32
--- NOTE | 2018-12-29 11:59 | PN ---
Date/Time of Note Date/Time of Note DATE: 12/29/18 TIME: 11:57 Objective Vitals Vital Signs Date Temp Pulse Resp B/P (MAP) Pulse Ox O2 O2 Flow FiO2 Time Delivery Rate 12/29/18 74 09:11 12/29/18 93 21 08:47 12/29/18 20 08:44 12/29/18 98.0 129/57 07:43 (81) 12/27/18 Room Air 16:50 12/27/18 8.0 07:51 Intake and Output 12/28/18 12/28/18 12/29/18 1515:00 23:00 07:00 IntakeIntake Total 650 ml 600 ml OutputOutput Total 950 ml BalanceBalance -300 ml 600 ml Results Result Diagram: 12/29/18 0557 12/29/18 0557 Medications Medications Current Medications Levalbuterol (Xopenex Neb) 1.25 mg Q4H RESP THERAPY PRN HHN sob Last administered on 12/18/18 08:41; Admin Dose 1.25 MG; Start 12/16/18 at 02:00 Albumin Human 250 ml @ 500 mls/hr PRN PRN IV CVP< 8, OR SBP<90 Last administered on 12/19/18 15:54; Admin Dose 500 MLS/HR; Start 12/18/18 at 20:30 Oxycodone/ Acetaminophen (Percocet (5/ 325)) 1 tab Q3H PRN PO PAIN LEVEL 1-5 Last administered on 12/29/18 03:55; Admin Dose 1 TAB; Start 12/18/18 at 20:30 Oxycodone/ Acetaminophen (Percocet (5/ 325)) 2 tab Q3H PRN PO PAIN LEVEL 6-10 Last administered on 12/27/18at 22:14; Admin Dose 2 TAB; Start 12/18/18 at 20:30 Ondansetron HCl (Zofran Inj) 4 mg Q6H PRN IV NAUSEA AND/OR VOMITING; Start 12/18/18 at 20:30 Famotidine (Pepcid) 20 mg BID PO Last administered on 12/29/18 08:27; Admin Dose 20 MG; Start 12/18/18 at 21:00 Acetaminophen (Tylenol Tab) 650 mg Q3H PRN PO ELEVATED TEMPERATURE Last administered on 12/21/18 20:11; Admin Dose 650 MG; Start 12/18/18 at 20:30 Atorvastatin Calcium (Lipitor) 80 mg HS PO Last administered on 12/28/18 20:15; Admin Dose 80 MG; Start 12/18/18 at 21:00 Acetaminophen (Tylenol Liquid) 650 mg Q4H PRN NGT MILD PAIN(1-3)OR ELEVATED TEMP Last administered on 12/20/18 06:00; Admin Dose 650 MG; Start 12/20/18 at 06:00 Lorazepam (Ativan) 2 mg Q6H PRN IV Anxiety; Start 12/20/18 at 11:30 Hydralazine HCl (Apresoline) 10 mg Q6H PRN IV SBP>160; Start 12/20/18 at 11:30 Insulin Aspart (Novolog Insulin Pen) NOVOLOG *MILD* ALGORITHM WITH MEALS BEDTIME SC Last administered on 12/28/18 08:08; Admin Dose 2 UNIT; Start 12/20/18 at 13:00 Metoprolol Tartrate (Lopressor) 50 mg BID PO Last administered on 12/29/18 08:29; Admin Dose 50 MG; Start 12/20/18 at 14:30 Gabapentin (Neurontin) 300 mg TID PO Last administered on 12/29/18 08:27; Admin Dose 300 MG; Start 12/22/18 at 13:00 Linagliptin (Tradjenta) 5 mg DAILY PO Last administered on 12/29/18 08:28; Admin Dose 5 MG; Start 12/23/18 at 18:30 Metformin HCl (Glucophage) 1,000 mg BID WITH MEALS PO Last administered on 12/29/18 08:28; Admin Dose 1,000 MG; Start 12/23/18 at 18:30 Aspirin (Aspirin) 81 mg DAILY PO Last administered on 12/29/18 08:27; Admin Dose 81 MG; Start 12/24/18 at 12:00 Clopidogrel Bisulfate (plaVIX) 75 mg DAILY PO Last administered on 12/29/18 08:27; Admin Dose 75 MG; Start 12/24/18 at 12:00 Enoxaparin Sodium (Lovenox) 40 mg DAILY SC Last administered on 12/29/18 08:36; Admin Dose 40 MG; Start 12/25/18 at 09:00 Albuterol/ Ipratropium (Duoneb) 3 ml Q6HWA RESP THERAPY HHN Last administered on 12/29/18 08:43; Admin Dose 3 ML; Start 12/24/18 at 14:00 Albuterol/ Ipratropium (Duoneb) 3 ml Q2H RESP THERAPY PRN HHN shortness of breath; Start 12/24/18 at 11:00 Budesonide (Pulmicort (Neb)) 0.5 mg BID RESP THERAPY HHN Last administered on 12/29/18 08:44; Admin Dose 0.5 MG; Start 12/24/18 at 12:00 Insulin Aspart (Novolog Insulin Pen) 18 unit WITH MEALS SC Last administered on 12/29/18 08:36; Admin Dose 18 UNIT; Start 12/26/18 at 17:55 Insulin Glargine (Lantus) 45 units DAILY@0800 SC Last administered on 12/29/18 08:36; Admin Dose 45 UNITS; Start 12/27/18 at 08:00 Miscellaneous Information 1 ea NOTE XX ; Start 12/26/18 at 12:30 Glucose (Glutose) 15 gm Q15M PRN PO DECREASED GLUCOSE; Start 12/26/18 at 12:30 Glucose (Glutose) 22.5 gm Q15M PRN PO DECREASED GLUCOSE; Start 12/26/18 at 12:30 Dextrose (D50w Syringe) 25 ml Q15M PRN IV DECREASED GLUCOSE; Start 12/26/18 at 12:30 Dextrose (D50w Syringe) 50 ml Q15M PRN IV DECREASED GLUCOSE; Start 12/26/18 at 12:30 Glucagon (Glucagen) 1 mg Q15M PRN IM DECREASED GLUCOSE; Start 12/26/18 at 12:30 Glucose (Glutose) 15 gm Q15M PRN BUCCAL DECREASED GLUCOSE; Start 12/26/18 at 12:30 Bumetanide (Bumex) 1 mg BID PO Last administered on 12/29/18 08:27; Admin Dose 1 MG; Start 12/28/18 at 09:00 Lisinopril (Zestril) 5 mg DAILY PO Last administered on 12/29/18 10:38; Admin Dose 5 MG; Start 12/29/18 at 09:30 VTE Prophylaxis Risk score (from Nsg)>0 risk: 7 SCD applied (from Nsg): Yes Lines/Catheters IV Catheter Type: Hooks in Place: No Assessment/Plan Hospital Course Subjective Patient doing well, tolerating O2 saturations above 90% with ambulation on room air now Objective Physical exam General: Patient is laying in bed and answers questions appropriately Mentation: Patient is alert and oriented 4, Head: Normocephalic atraumatic Eyes: EOMI, pupils reactive to light Neck: Supple, nontender, midline Respiratory: mildly coarse to auscultation bilaterally Cardiovascular: regular rate, no obvious murmurs Gastrointestinal: non-tender to palpation, bowel sounds heard. Neurological: Moves all extremities spontaneously Skin: Surgical site bandaged, CDI ASSESSMENT & PLAN This is a 63-year-old male with comorbidities including diabetes mellitus, left foot osteomyelitis, hypertension, obesity, chronic kidney disease, peripheral artery disease, and alcohol abuse. The patient came to the emergency room with chief complaint of abdominal pain, distension and occasional radiation of pain to the chest. He was noticed to have NSTEMI. NSTEMI. -S/P LHC on 12/17/2018 that showed significant 3-vessel CAD. -S/P CABG x4, SVG to LAD, SVG to OM1 sequenced to OM2, SVG to PDA on 12/18/2018. -extubated 12/20/18 -wound vac removed -doing well Mild fevers, resolved -Patient asymptomatic -ID on board, Dr. Tsai -IV antibiotic stopped -Cultures -UA neg Acute respiratory failure. -Resolving significantly, on nasal cannula, will attempt to titrate off. -Continue supplemental O2. -Continue inhaled bronchodilators. -resolving - Fluid overload. -Etiology could be multifactorial. -2D echocardiogram showing preserved LVEF. -Known history of significant proteinuria, suggesting nephrotic syndrome. -Diuretics as clinically indicated. Increased scheduled Bumex to twice a day Diabetes mellitus type 2. -Hemoglobin A1c 10.7. -Currently on insulin drip. Peripheral artery disease. -Status post left tibioperoneal trunk balloon angioplasty, left femoral popliteal artery stenting, and left femoral popliteal artery balloon angioplasty on 03/22/2017. -Continue antiplatelet therapy as per home energy consultant Hypertension. -Continue antihypertensives. Pulmonary hypertension. -PA systolic pressure of 52 mm Hg. E. coli ESBL in urine wound 12/18/2018. resolved -[place] count <10,000 CFU per mL. -completed course of carbapenams -Repeat urine studies negative. -S/P ID evaluation. Obesity. -BMI 31.5 kg/m -Weight reduction advised. Normocytic, normochromic anemia. -Monitor H&H closely. Alcohol abuse. -Continue multivitamins. Generalized anxiety. -PRN benzodiazepines. ANGEL. -Monitor BUN and creatinine closely. -Use nephrotoxic drugs with caution. -Nephrology on board. DVT proph: -40 lovenox daily Disposition -Starting lisinopril for coronary artery disease as well as increased blood pressure control, patient does have a history of acute kidney injury during the stay, spoke with family and stated that patient may be discharged today if they can ensure proper follow-up and repeat labs within 3 days however patient's family does not feel like they could get him to a doctor in the next 3 days so we will monitor overnight for elevation in creatinine before discharge, home health PT, front wheel walker all arranged, patient likely DC tomorrow as long as renal function remains stable. RENU WHITE December 29, 2018 11:59
--- NOTE | 2018-12-29 16:01 | CONS ---
Consult Date/Type/Reason Admit Date/Time Dec 15, 2018 at 16:16 Initial Consult Date 12/19/18 Type of Consultation: Pulm/CCM Requesting Provider: JUAN M VENEGAS Date/Time of Note DATE: 12/29/18 TIME: 16:00 Subjective No events overnight. Without c/o Objective Vitals Vital Signs Date Temp Pulse Resp B/P (MAP) Pulse Ox O2 O2 Flow FiO2 Time Delivery Rate 12/29/18 75 20 94 21 13:41 12/29/18 98.0 142/65 12:07 (90) 12/27/18 Room Air 16:50 12/27/18 8.0 07:51 Intake and Output 12/28/18 12/28/18 12/29/18 1515:00 23:00 07:00 IntakeIntake Total 650 ml 600 ml OutputOutput Total 950 ml BalanceBalance -300 ml 600 ml Exam HEENT: Neck supple; no JVD; no LAD CVS: RRR, S1 and S2 CHEST: Bibasilar rales ABD: Soft, NT, + BS EXT: No c/c; + tr edema Results/Medications Result Diagram: 12/29/18 0557 12/29/18 0557 Results 24 hrs Laboratory Tests Test 12/28/18 17:45 12/28/18 20:22 12/29/18 05:57 12/29/18 07:57 Bedside Glucose 105 92 136 White Blood Count 9.7 Red Blood Count 2.90 L Hemoglobin 8.8 L Hematocrit 27.6 L Mean Corpuscular 95.2 Volume Mean Corpuscular 30.3 Hemoglobin Mean Corpuscular 31.9 L Hemoglobin Concent Red Cell 14.1 Distribution Width Platelet Count 662 H Mean Platelet Volume 9.3 Immature 0.700 H Granulocytes % Neutrophils % 71.1 Lymphocytes % 15.9 Monocytes % 8.6 Eosinophils % 2.7 Basophils % 1.0 Nucleated Red Blood 0.0 Cells % Immature 0.070 H Granulocytes # Neutrophils # 6.9 Lymphocytes # 1.5 Monocytes # 0.8 Eosinophils # 0.3 Basophils # 0.1 Nucleated Red Blood 0.0 Cells # Sodium Level 139 Potassium Level 4.0 Chloride Level 102 Carbon Dioxide Level 28 Anion Gap 9 Blood Urea Nitrogen 21 H Creatinine 1.12 Est Glomerular > 60 Filtrat Rate mL/min Glucose Level 135 Calcium Level 9.0 Phosphorus Level 4.5 Magnesium Level 1.6 L Test 12/29/18 12:00 12/29/18 14:40 12/29/18 15:00 12/29/18 15:24 Bedside Glucose 155 62 L 61 L 78 Test 12/29/18 15:49 Bedside Glucose 101 Home Meds Active Scripts Gabapentin* (Gabapentin*) 300 Mg Capsule, 300 MG PO TID, #90 CAP Prov:RADHA ROTHMAN 12/11/18 Ciprofloxacin Hcl* (Ciprofloxacin Hcl*) 250 Mg Tablet, 250 MG PO BID for 3 Days, #6 TAB Prov:RADHA ROTHMAN 12/11/18 Furosemide* (Furosemide*) 20 Mg Tablet, 20 MG PO DAILY for 3 Days, #3 TAB Prov:FOX JAVED 09/02/18 Omeprazole* (Omeprazole*) 20 Mg Capsule.dr, 20 MG PO DAILY, #30 CAP Prov:RENU WHITE 08/22/18 Levofloxacin* (Levaquin*) 500 Mg Tablet, 500 MG PO DAILY for 5 Days, #5 TAB Prov:RENU WHITE 08/22/18 Salmeterol Xinaf/Fluticasone* (Advair*) 250-50 Diskus Inhaler, 1 INH INH BID for 30 Days Prov:SANAZ DAVIS MD 04/15/17 Aspirin* (Aspirin* EC) 81 Mg Tablet.dr, 81 MG PO DAILY for 30 Days Prov:SANAZ DAVIS MD 04/15/17 Atorvastatin* (Atorvastatin*) 40 Mg Tablet, 40 MG PO HS for 30 Days, TAB Prov:SANAZ DAVIS MD 04/15/17 Clopidogrel Bisulfate (Clopidogrel) 75 Mg Tablet, 75 MG PO DAILY for 30 Days, TAB Prov:SANAZ DAVIS MD 04/15/17 Amlodipine Besylate* (Norvasc*) 5 Mg Tablet, 2.5 MG PO DAILY for 30 Days, TAB Prov:SANAZ DAVIS MD 04/15/17 Insulin Aspart* (Novolog Insulin Pen*) 100 Unit/Ml Soln, 15 UNIT SC WITH MEALS for 30 Days, #1 SYR Prov:BRANDON HERRERA NP 03/23/17 Metformin Hcl (Glucophage) 500 Mg Tablet, 1000 MG PO BID WITH MEALS for 30 Days, #60 TAB Prov:BRANDON HERRERA V. [employer] & GENER[employer] COUNSEL 03/23/17 Linagliptin (TRADJENTA) 5 Mg Tablet, 5 MG PO DAILY for 30 Days, #30 TAB Prov:BRANDON HERRERA V. [employer] GENERAL COUNSEL 03/23/17 Insulin Glargine* (Lantus*) 100 Unit/Ml Soln, 45 UNIT SC HS for 30 Days, #1 SYR Prov:BRANDON HERRERA V. [employer] GENERAL COUNSEL 03/23/17 Reported Medications Ergocalciferol (Vitamin D2) (VITAMIN D2) 2,000 Unit Tablet, 2000 UNIT PO DAILY, TAB 03/15/17 Medications Current Medications Levalbuterol (Xopenex Neb) 1.25 mg Q4H RESP THERAPY PRN HHN sob Last administered on 12/18/18 08:41; Admin Dose 1.25 MG; Start 12/16/18 at 02:00 Albumin Human 250 ml @ 500 mls/hr PRN PRN IV CVP< 8, OR SBP<90 Last administe red on 12/19/18 15:54; Admin Dose 500 MLS/HR; Start 12/18/18 at 20:30 Oxycodone/ Acetaminophen (Percocet (5/ 325)) 1 tab Q3H PRN PO PAIN LEVEL 1-5 Last administered on 12/29/18 03:55; Admin Dose 1 TAB; Start 12/18/18 at 20:30 Oxycodone/ Acetaminophen (Percocet (5/ 325)) 2 tab Q3H PRN PO PAIN LEVEL 6-10 Last administered on 12/27/18 22:14; Admin Dose 2 TAB; Start 12/18/18 at 20:30 Ondansetron HCl (Zofran Inj) 4 mg Q6H PRN IV NAUSEA AND/OR VOMITING; Start 12/18/18 at 20:30 Famotidine (Pepcid) 20 mg BID PO Last administered on 12/29/18 08:27; Admin Dose 20 MG; Start 12/18/18 at 21:00 Acetaminophen (Tylenol Tab) 650 mg Q3H PRN PO ELEVATED TEMPERATURE Last administered on 12/21/18 20:11; Admin Dose 650 MG; Start 12/18/18 at 20:30 Atorvastatin Calcium (Lipitor) 80 mg HS PO Last administered on 12/28/18 20:15; Admin Dose 80 MG; Start 12/18/18 at 21:00 Acetaminophen (Tylenol Liquid) 650 mg Q4H PRN NGT MILD PAIN(1-3)OR ELEVATED TEMP Last administered on 12/20/18 06:00; Admin Dose 650 MG; Start 12/20/18 at 06:00 Lorazepam (Ativan) 2 mg Q6H PRN IV Anxiety; Start 12/20/18 at 11:30 Hydralazine HCl (Apresoline) 10 mg Q6H PRN IV SBP>160; Start 12/20/18 at 11:30 Insulin Aspart (Novolog Insulin Pen) NOVOLOG *MILD* ALGORITHM WITH MEALS BEDTIME SC Last administered on 12/29/18 12:07; Admin Dose 1 UNIT; Start 12/20/18 at 13:00 Metoprolol Tartrate (Lopressor) 50 mg BID PO Last administered on 12/29/18 08:29; Admin Dose 50 MG; Start 12/20/18 at 14:30 Gabapentin (Neurontin) 300 mg TID PO Last administered on 12/29/18 12:49; Admin Dose 300 MG; Start 12/22/18 at 13:00 Linagliptin (Tradjenta) 5 mg DAILY PO Last administered on 12/29/18 08:28; Admin Dose 5 MG; Start 12/23/18 at 18:30 Metformin HCl (Glucophage) 1,000 mg BID WITH MEALS PO Last administered on 12/29/18 08:28; Admin Dose 1,000 MG; Start 12/23/18 at 18:30 Aspirin (Aspirin) 81 mg DAILY PO Last administered on 12/29/18 08:27; Admin Dose 81 MG; Start 12/24/18 at 12:00 Clopidogrel Bisulfate (plaVIX) 75 mg DAILY PO Last administered on 12/29/18 08:27; Admin Dose 75 MG; Start 12/24/18 at 12:00 Enoxaparin Sodium (Lovenox) 40 mg DAILY SC Last administered on 12/29/18 08:36; Admin Dose 40 MG; Start 12/25/18 at 09:00 Albuterol/ Ipratropium (Duoneb) 3 ml Q6HWA RESP THERAPY HHN Last administered on 12/29/18 13:40; Admin Dose 3 ML; Start 12/24/18 at 14:00 Albuterol/ Ipratropium (Duoneb) 3 ml Q2H RESP THERAPY PRN HHN shortness of breath; Start 12/24/18 at 11:00 Budesonide (Pulmicort (Neb)) 0.5 mg BID RESP THERAPY HHN Last administered on 12/29/18at 08:44; Admin Dose 0.5 MG; Start 12/24/18 at 12:00 Insulin Glargine (Lantus) 45 units DAILY@0800 SC Last administered on 12/29/18at 08:36; Admin Dose 45 UNITS; Start 12/27/18 at 08:00 Miscellaneous Information 1 ea NOTE XX ; Start 12/26/18 at 12:30 Glucose (Glutose) 15 gm Q15M PRN PO DECREASED GLUCOSE; Start 12/26/18 at 12:30 Glucose (Glutose) 22.5 gm Q15M PRN PO DECREASED GLUCOSE; Start 12/26/18 at 12:30 Dextrose (D50w Syringe) 25 ml Q15M PRN IV DECREASED GLUCOSE; Start 12/26/18 at 12:30 Dextrose (D50w Syringe) 50 ml Q15M PRN IV DECREASED GLUCOSE; Start 12/26/18 at 12:30 Glucagon (Glucagen) 1 mg Q15M PRN IM DECREASED GLUCOSE; Start 12/26/18 at 12:30 Glucose (Glutose) 15 gm Q15M PRN BUCCAL DECREASED GLUCOSE; Start 12/26/18 at 12:30 Bumetanide (Bumex) 1 mg BID PO Last administered on 12/29/18at 08:27; Admin Dose 1 MG; Start 12/28/18 at 09:00 Lisinopril (Zestril) 5 mg DAILY PO Last administered on 12/29/18at 10:38; Admin Dose 5 MG; Start 12/29/18 at 09:30 Insulin Aspart (Novolog Insulin Pen) 12 unit WITH MEALS SC ; Start 12/29/18 at 17:55 Assessment/Plan Assessment/Plan (Daily) IMP: 1. s/p Respiratory Failure 2. s/p CABG 3. s/p NSTEMI 4. s/p ANGEL 5. CHF 6. Leukocytosis/low grade fevers/possible pna RECS: 1. Mobilize OOB 2. ICS 3. De-esclate abx 4. PT/OT VU CALL MD December 29, 2018 16:01
[2018-12-29] MEDS: ATORVASTATIN 80 MG TAB PO SCH (20:29)
[2018-12-30] VITALS (8 sets, daily range): BP systolic 101–127; BP diastolic 56–68; PULSE 73–87; RESP 17–18
[2018-12-30] MEDS: OXYCODONE/ACETAMINOPHEN (5/325) TAB PO PRN ×2 (07:39→13:07)
[2018-12-30] MEDS: metFORMIN 500 MG TAB PO SCH (07:45)
[2018-12-30] MEDS ORDERED: MAGNESIUM SULFATE 2 GM/50 ML 50 ML IVPB ONE (08:00)
[2018-12-30] MEDS: ALBUTEROL/IPRATROPIUM (NEB) 3 ML AMP HHN SCH ×2 (08:03→13:35)
[2018-12-30] MEDS: INSULIN ASPART [NOVOLOG] 3 ML PEN SC SCH ×4 (08:13→12:51)
[2018-12-30] MEDS: BALSAM PERU/CASTOR OIL 60 GM TUBE TOP SCH (08:20)
--- NOTE | 2018-12-30 08:21 | PN ---
DATE: 12/30/2018 SUBJECTIVE: The patient is stable. No acute events overnight. No hemoptysis, hematemesis or hematochezia. OBJECTIVE: VITAL SIGNS: Blood pressure is 123/63, respirations 18, pulse 82, temperature 98.4. HEENT: Head is normocephalic. NECK: Supple. HEART: Regular rate. LUNGS: Show diminished breath sounds at the base. ABDOMEN: Soft, nontender to palpation without rebound or guarding. EXTREMITIES: Negative for clubbing, cyanosis, Positive edema. DERMATOLOGIC: No rashes. MUSCULOSKELETAL: No joint effusion. NEUROLOGIC: No change in exam. MEDICATIONS: Reviewed. LABORATORY DATA: Reviewed. ASSESSMENT AND PLAN: 1. Nonoliguric acute kidney injury. Etiology is secondary to acute tubular necrosis. The patient's renal function has improved with supportive care. However, in the last 24 hours, the patient's renal function has declined. This may be secondary to hemodynamics, diuretic therapy. Patient continue to have edema. Continue Bumex. We will monitor renal function closely. 2. Anemia. Continue to monitor hemoglobin and hematocrit levels. 3. Mineral bone disorder. Monitor calcium and phosphorus levels. 4. Acute diastolic heart failure. The patient is still overloaded on exam.. Continue medical management. Continue bumex 5. Coronary artery disease, status post coronary artery bypass graft. Continue to monitor. 6. Peripheral vascular disease. Continue current medical management. 7. Diabetes. Continue current insulin regimen. 8. Hypertension. Continue current blood pressure regimen. 9. Dyslipidemia. Continue statin therapy. Dictated By: KIERAN KEARNEY DO NR/NTS Conf#: [id number] DID#: [id number] CC: JUAN M VENEGAS MD; RENU WHITE MD;*EndCC* MTDD
[2018-12-30] MEDS: FAMOTIDINE 20 MG TAB PO SCH (08:22)
[2018-12-30] MEDS: LISINOPRIL 5 MG TAB PO SCH (08:22)
[2018-12-30] MEDS: GABAPENTIN 300 MG CAP PO SCH ×2 (08:22→13:06)
[2018-12-30] MEDS: CLOPIDOGREL 75 MG TAB PO SCH (08:22)
[2018-12-30] MEDS: LINAGLIPTIN 5 MG TABLET PO SCH (08:22)
[2018-12-30] MEDS: METOPROLOL 50 MG TAB PO SCH (08:23)
[2018-12-30] MEDS: ASPIRIN 81 MG TAB PO SCH (08:33)
[2018-12-30] MEDS: INSULIN GLARGINE [LANTus] (100 UNITS/ML) SYG SC SCH (08:47)
[2018-12-30] MEDS: ENOXAPARIN 40 MG/0.4 ML SYG SC SCH (08:47)
[2018-12-30] MEDS ORDERED: BUMETANIDE 1 MG TAB PO SCH ×2 (09:00→21:00)
[2018-12-30] MEDS: BUDESONIDE (NEB) 0.5MG/2ML AMP HHN SCH (10:11)
--- NOTE | 2018-12-30 11:24 | CONS ---
Assessment/Plan Assessment/Plan Hospital Course (Demo Recall) Acute diastolic CHF: EF 60%. Intravascular volume likely euvolemic but overall still edematous. This should improve with PO diuretics at home. He can be followed closely as outpt. Acute respiratory failure: Intubated for CABG. Extubated 5/ Acute renal failure: Cr slightly increased post-op. Likely ATN but also REYNA possible from cath. Stable with diuresis. Resolved CAD s/p CAB vessel SVG-LAD, SVG-OM1/OM2 (sequenced), SVG-PDA. DE ANDA not used as injured during prep. NSTEMI: Trop 1 and trended down. No active chest pain. Three vessel CAD on cath s/p CABG PAD s/p left leg balloon angioplasty and stenting 2016 DM HTN HL Alcohol abuse: no cirrhosis or bleeding. -ok for d/c home with below meds and outpt cardiology f/u -bumex 1mg BID -ASA 81mg -plavix 75mg x 1 yr -lipitor 80mg -metoprolol 50mg BID -lisinopril 5mg Consultation Date/Type/Reason Admit Date/Time Dec 15, 2018 at 16:16 Initial Consult Date 12/16/18 Type of Consult Cardiology Requesting Provider: JUAN M VENEGAS Date/Time of Note DATE: 12/30/18 TIME: 11:21 24 HR Interval Summary Free Text/Dictation Sats >90% with ambulation and one documented at 96% with ambulation. Otherwise no events. Pt really wants to go home. Exam/Review of Systems Vital Signs Vitals Vital Signs Date Temp Pulse Resp B/P (MAP) Pulse Ox O2 O2 Flow FiO2 Time Delivery Rate 12/30/18 21 21 10:14 12/30/18 85 50 10:13 12/30/18 98.0 124/68 07:56 (86) 12/27/18 Room Air 16:50 12/27/18 8.0 07:51 Intake and Output 12/29/18 12/29/18 12/30/18 1515:00 23:00 07:00 IntakeIntake Total 50 ml 800 ml BalanceBalance 50 ml 800 ml Exam Constitutional: alert, oriented Psych: no complaints, nl mood/affect Neck: No jvd Respiratory: crackles/rales (faint at bases); No clear to auscultation Cardiovascular: regular rate and rhythm, edema (2+) Gastrointestinal: soft, non-tender; No distended Neurological: nl mental status, nl speech Labs Result Diagram: 12/30/1859 12/30/18 0559 Results 24hrs Laboratory Tests Test 12/29/18 12:00 12/29/18 14:40 12/29/18 15:00 12/29/18 15:24 Bedside Glucose 155 62 L 61 L 78 Test 12/29/18 15:49 12/29/18 17:41 12/29/18 20:28 12/30/18 05:59 Bedside Glucose 101 121 131 White Blood Count 10.5 Red Blood Count 3.00 L Hemoglobin 9.0 L Hematocrit 28.7 L Mean Corpuscular 95.7 Volume Mean Corpuscular 30.0 Hemoglobin Mean Corpuscular 31.4 L Hemoglobin Concent Red Cell 14.4 Distribution Width Platelet Count 655 H Mean Platelet Volume 9.2 Immature 0.700 H Granulocytes % Neutrophils % 71.7 Lymphocytes % 16.2 Monocytes % 8.2 Eosinophils % 2.2 Basophils % 1.0 Nucleated Red Blood 0.0 Cells % Immature 0.070 H Granulocytes # Neutrophils # 7.5 Lymphocytes # 1.7 Monocytes # 0.9 Eosinophils # 0.2 Basophils # 0.1 Nucleated Red Blood 0.0 Cells # Sodium Level 138 Potassium Level 3.9 Chloride Level 100 Carbon Dioxide Level 29 Anion Gap 9 Blood Urea Nitrogen 25 H Creatinine 1.36 H Est Glomerular 53 L Filtrat Rate mL/min Glucose Level 167 Calcium Level 9.0 Phosphorus Level 4.4 Magnesium Level 1.6 L Test 12/30/18 07:44 Bedside Glucose 161 Medications Medications Current Medications Levalbuterol (Xopenex Neb) 1.25 mg Q4H RESP THERAPY PRN HHN sob Last administered on 12/18/18at 08:41; Admin Dose 1.25 MG; Start 12/16/18 at 02:00 Albumin Human 250 ml @ 500 mls/hr PRN PRN IV CVP< 8, OR SBP<90 Last administered on 12/19/18at 15:54; Admin Dose 500 MLS/HR; Start 12/18/18 at 20:30 Oxycodone/ Acetaminophen (Percocet (5/ 325)) 1 tab Q3H PRN PO PAIN LEVEL 1-5 Last administered on 12/30/18 07:39; Admin Dose 1 TAB; Start 12/18/18 at 20:30 Oxycodone/ Acetaminophen (Percocet (5/ 325)) 2 tab Q3H PRN PO PAIN LEVEL 6-10 Last administered on 12/27/18 22:14; Admin Dose 2 TAB; Start 12/18/18 at 20:30 Ondansetron HCl (Zofran Inj) 4 mg Q6H PRN IV NAUSEA AND/OR VOMITING; Start 12/18/18 at 20:30 Famotidine (Pepcid) 20 mg BID PO Last administered on 12/30/18 08:22; Admin Dose 20 MG; Start 12/18/18 at 21:00 Acetaminophen (Tylenol Tab) 650 mg Q3H PRN PO ELEVATED TEMPERATURE Last administered on 12/21/18 20:11; Admin Dose 650 MG; Start 12/18/18 at 20:30 Atorvastatin Calcium (Lipitor) 80 mg HS PO Last administered on 12/29/18 20:29; Admin Dose 80 MG; Start 12/18/18 at 21:00 Acetaminophen (Tylenol Liquid) 650 mg Q4H PRN NGT MILD PAIN(1-3)OR ELEVATED TEMP Last administered on 12/20/18 06:00; Admin Dose 650 MG; Start 12/20/18 at 06:00 Lorazepam (Ativan) 2 mg Q6H PRN IV Anxiety; Start 12/20/18 at 11:30 Hydralazine HCl (Apresoline) 10 mg Q6H PRN IV SBP>160; Start 12/20/18 at 11:30 Insulin Aspart (Novolog Insulin Pen) NOVOLOG *MILD* ALGORITHM WITH MEALS BEDTIME SC Last administered on 12/30/18 08:13; Admin Dose 1 UNIT; Start 12/20/18 at 13:00 Metoprolol Tartrate (Lopressor) 50 mg BID PO Last administered on 12/30/18 08:23; Admin Dose 50 MG; Start 12/20/18 at 14:30 Gabapentin (Neurontin) 300 mg TID PO Last administered on 12/30/18 08:22; Admin Dose 300 MG; Start 12/22/18 at 13:00 Linagliptin (Tradjenta) 5 mg DAILY PO Last administered on 12/30/18 08:22; Admin Dose 5 MG; Start 12/23/18 at 18:30 Metformin HCl (Glucophage) 1,000 mg BID WITH MEALS PO Last administered on 12/30/18 07:45; Admin Dose 1,000 MG; Start 12/23/18 at 18:30 Aspirin (Aspirin) 81 mg DAILY PO Last administered on 12/30/18 08:33; Admin Dose 81 MG; Start 12/24/18 at 12:00 Clopidogrel Bisulfate (plaVIX) 75 mg DAILY PO Last administered on 12/30/18 08:22; Admin Dose 75 MG; Start 12/24/18 at 12:00 Enoxaparin Sodium (Lovenox) 40 mg DAILY SC Last administered on 12/30/18 08:47; Admin Dose 40 MG; Start 12/25/18 at 09:00 Albuterol/ Ipratropium (Duoneb) 3 ml Q6HWA RESP THERAPY HHN Last administered on 12/30/18 08:03; Admin Dose 3 ML; Start 12/24/18 at 14:00 Albuterol/ Ipratropium (Duoneb) 3 ml Q2H RESP THERAPY PRN HHN shortness of breath; Start 12/24/18 at 11:00 Budesonide (Pulmicort (Neb)) 0.5 mg BID RESP THERAPY HHN Last administered on 12/30/18 10:11; Admin Dose 0.5 MG; Start 12/24/18 at 12:00 Insulin Glargine (Lantus) 45 units DAILY@0800 SC Last administered on 12/30/18 08:47; Admin Dose 45 UNITS; Start 12/27/18 at 08:00 Miscellaneous Information 1 ea NOTE XX ; Start 12/26/18 at 12:30 Glucose (Glutose) 15 gm Q15M PRN PO DECREASED GLUCOSE; Start 12/26/18 at 12:30 Glucose (Glutose) 22.5 gm Q15M PRN PO DECREASED GLUCOSE; Start 12/26/18 at 12:30 Dextrose (D50w Syringe) 25 ml Q15M PRN IV DECREASED GLUCOSE; Start 12/26/18 at 12:30 Dextrose (D50w Syringe) 50 ml Q15M PRN IV DECREASED GLUCOSE; Start 12/26/18 at 12:30 Glucagon (Glucagen) 1 mg Q15M PRN IM DECREASED GLUCOSE; Start 12/26/18 at 12:30 Glucose (Glutose) 15 gm Q15M PRN BUCCAL DECREASED GLUCOSE; Start 12/26/18 at 12:30 Lisinopril (Zestril) 5 mg DAILY PO Last administered on 12/30/18at 08:22; Admin Dose 5 MG; Start 12/29/18 at 09:30 Insulin Aspart (Novolog Insulin Pen) 12 unit WITH MEALS SC Last administered on 12/30/18at 08:13; Admin Dose 12 UNIT; Start 12/29/18 at 17:55 Bumetanide (Bumex) 1 mg BID PO ; Start 12/30/18 at 21:00 JUAN M VENEGAS December 30, 2018 11:24
--- NOTE | 2018-12-30 12:46 | PN ---
Date/Time of Note Date/Time of Note DATE: 12/30/18 TIME: 12:37 Assessment/Plan VTE Prophylaxis Risk score (from Ns)>0 risk: 4 SCD applied (from Ns): Yes Pharmacological prophylaxis: LMWH, other Lines/Catheters IV Catheter Type (from Nrsg): [place] Urinary Cath still in place: No Assessment/Plan Assessment/Plan 1. NSTEMI s/p CABG - Cardiology on board and appreciate recommendations. Cleared for d/c from cardiology standpoint on current medications. Will need to follow up as outpatient in 1-2 weeks - CT surgery consultation appreciated and is s/p CABG x4, SVG to LAD, SVG to OM1 sequenced to OM2, SVG to PDA on 12/18/2018. - S/P LHC on 12/17/2018 that showed significant 3-vessel CAD. 2. Acute respiratory failure- improving - home O2 set up and no acute respiratory issues appreciated 3. Fluid overload - ECHO result noted with preserved EF - Cardiology recommending continue on Bumex as outpatient - stable respiratory status 4. Diabetes mellitus type 2. - A1c 10.7 - Seen by DM educator and appreciate consultation - sugars well controlled and will continue on current regime 5. Peripheral artery disease - Status post left tibioperoneal trunk balloon angioplasty, left femoral popliteal artery stenting, and left femoral popliteal artery balloon angioplasty on 03/22/2017. - Continue antiplatelet therapy as per cisco unified communications engineer 6. Hypertension. - Continue antihypertensives. 7. Pulmonary hypertension. - PA systolic pressure of 52 mm Hg. - O2 continued 8. E. coli ESBL in urine wound 12/18/2018. resolved - [place] count <10,000 CFU per mL. - completed course of antibiotics and ID consultation appreciated - Repeat urine studies negative. 9. Obesity. - BMI 31.5 kg/m - Weight reduction advised. 10. Normocytic, normochromic anemia. - Monitor H&H closely. - no need for transfusion at this time 11. Alcohol abuse. - Continue multivitamins. 12. ANGEL - Nephrology consultation appreciated and ok for d/c. Will need outpatient labs in 3-5 days 13. Disposition - Medically stable for discharge home Result Diagram: 12/30/18 0559 12/30/18 0559 Results 24hrs Laboratory Tests Test 12/29/18 14:40 12/29/18 15:00 12/29/18 15:24 12/29/18 15:49 Bedside Glucose 62 L 61 L 78 101 Test 12/29/18 17:41 12/29/18 20:28 12/30/18 05:59 12/30/18 07:44 Bedside Glucose 121 131 161 White Blood Count 10.5 Red Blood Count 3.00 L Hemoglobin 9.0 L Hematocrit 28.7 L Mean Corpuscular 95.7 Volume Mean Corpuscular 30.0 Hemoglobin Mean Corpuscular 31.4 L Hemoglobin Concent Red Cell 14.4 Distribution Width Platelet Count 655 H Mean Platelet Volume 9.2 Immature 0.700 H Granulocytes % Neutrophils % 71.7 Lymphocytes % 16.2 Monocytes % 8.2 Eosinophils % 2.2 Basophils % 1.0 Nucleated Red Blood 0.0 Cells % Immature 0.070 H Granulocytes # Neutrophils # 7.5 Lymphocytes # 1.7 Monocytes # 0.9 Eosinophils # 0.2 Basophils # 0.1 Nucleated Red Blood 0.0 Cells # Sodium Level 138 Potassium Level 3.9 Chloride Level 100 Carbon Dioxide Level 29 Anion Gap 9 Blood Urea Nitrogen 25 H Creatinine 1.36 H Est Glomerular 53 L Filtrat Rate mL/min Glucose Level 167 Calcium Level 9.0 Phosphorus Level 4.4 Magnesium Level 1.6 L Test 12/30/18 11:44 Bedside Glucose 113 Subjective 24 Hr Interval Summary Free Text/Dictation Patient is doing well but still complaining of some lower extremity edema. No acute overnight events. Exam/Review of Systems Exam Vitals Vital Signs Date Temp Pulse Resp B/P (MAP) Pulse Ox O2 O2 Flow FiO2 Time Delivery Rate 12/30/18 98.0 87 18 127/62 98 12:16 (83) 12/30/18 21 10:14 12/27/18 Room Air 16:50 12/27/18 8.0 07:51 Intake and Output 12/29/18 12/29/18 12/30/18 1515:00 23:00 07:00 IntakeIntake Total 50 ml 800 ml BalanceBalance 50 ml 800 ml Exam General: Patient is laying in bed and answers questions appropriately. no acute distress Neck: Supple, nontender, midline Respiratory: diminished, mildly coarse to auscultation bilaterally Cardiovascular: regular rate and rhythm, no obvious murmurs Gastrointestinal: soft, non-tender to palpation, bowel sounds heard. Ext: lower extremity edema, 1+ RLE, and trace LLE Skin: Surgical site healing well Results Results 24hrs Laboratory Tests Test 12/29/18 14:40 12/29/18 15:00 12/29/18 15:24 12/29/18 15:49 Bedside Glucose 62 L 61 L 78 101 Test 12/29/18 17:41 12/29/18 20:28 12/30/18 05:59 12/30/18 07:44 Bedside Glucose 121 131 161 White Blood Count 10.5 Red Blood Count 3.00 L Hemoglobin 9.0 L Hematocrit 28.7 L Mean Corpuscular 95.7 Volume Mean Corpuscular 30.0 Hemoglobin Mean Corpuscular 31.4 L Hemoglobin Concent Red Cell 14.4 Distribution Width Platelet Count 655 H Mean Platelet Volume 9.2 Immature 0.700 H Granulocytes % Neutrophils % 71.7 Lymphocytes % 16.2 Monocytes % 8.2 Eosinophils % 2.2 Basophils % 1.0 Nucleated Red Blood 0.0 Cells % Immature 0.070 H Granulocytes # Neutrophils # 7.5 Lymphocytes # 1.7 Monocytes # 0.9 Eosinophils # 0.2 Basophils # 0.1 Nucleated Red Blood 0.0 Cells # Sodium Level 138 Potassium Level 3.9 Chloride Level 100 Carbon Dioxide Level 29 Anion Gap 9 Blood Urea Nitrogen 25 H Creatinine 1.36 H Est Glomerular 53 L Filtrat Rate mL/min Glucose Level 167 Calcium Level 9.0 Phosphorus Level 4.4 Magnesium Level 1.6 L Test 12/30/18 11:44 Bedside Glucose 113 Medications Medication Current Medications Levalbuterol (Xopenex Neb) 1.25 mg Q4H RESP THERAPY PRN HHN sob Last administered on 12/18/18at 08:41; Admin Dose 1.25 MG; Start 12/16/18 at 02:00 Albumin Human 250 ml @ 500 mls/hr PRN PRN IV CVP< 8, OR SBP<90 Last administered on 12/19/18at 15:54; Admin Dose 500 MLS/HR; Start 12/18/18 at 20:30 Oxycodone/ Acetaminophen (Percocet (5/ 325)) 1 tab Q3H PRN PO PAIN LEVEL 1-5 Last administered on 12/30/18at 07:39; Admin Dose 1 TAB; Start 12/18/18 at 20:30 Oxycodone/ Acetaminophen (Percocet (5/ 325)) 2 tab Q3H PRN PO PAIN LEVEL 6-10 Last administered on 12/27/18 22:14; Admin Dose 2 TAB; Start 12/18/18 at 20:30 Ondansetron HCl (Zofran Inj) 4 mg Q6H PRN IV NAUSEA AND/OR VOMITING; Start 12/18/18 at 20:30 Famotidine (Pepcid) 20 mg BID PO Last administered on 12/30/18 08:22; Admin Dose 20 MG; Start 12/18/18 at 21:00 Acetaminophen (Tylenol Tab) 650 mg Q3H PRN PO ELEVATED TEMPERATURE Last administered on 12/21/18 20:11; Admin Dose 650 MG; Start 12/18/18 at 20:30 Atorvastatin Calcium (Lipitor) 80 mg HS PO Last administered on 12/29/18 20:29; Admin Dose 80 MG; Start 12/18/18 at 21:00 Acetaminophen (Tylenol Liquid) 650 mg Q4H PRN NGT MILD PAIN(1-3)OR ELEVATED TEMP Last administered on 12/20/18 06:00; Admin Dose 650 MG; Start 12/20/18 at 06:00 Lorazepam (Ativan) 2 mg Q6H PRN IV Anxiety; Start 12/20/18 at 11:30 Hydralazine HCl (Apresoline) 10 mg Q6H PRN IV SBP>160; Start 12/20/18 at 11:30 Insulin Aspart (Novolog Insulin Pen) NOVOLOG *MILD* ALGORITHM WITH MEALS BEDTIME SC Last administered on 12/30/18 08:13; Admin Dose 1 UNIT; Start 12/20/18 at 13:00 Metoprolol Tartrate (Lopressor) 50 mg BID PO Last administered on 12/30/18 08:23; Admin Dose 50 MG; Start 12/20/18 at 14:30 Gabapentin (Neurontin) 300 mg TID PO Last administered on 12/30/18 08:22; Admin Dose 300 MG; Start 12/22/18 at 13:00 Linagliptin (Tradjenta) 5 mg DAILY PO Last administered on 12/30/18 08:22; Admin Dose 5 MG; Start 12/23/18 at 18:30 Metformin HCl (Glucophage) 1,000 mg BID WITH MEALS PO Last administered on 5/13/19at 07:45; Admin Dose 1,000 MG; Start 12/23/18 at 18:30 Aspirin (Aspirin) 81 mg DAILY PO Last administered on 12/30/18 08:33; Admin Dose 81 MG; Start 12/24/18 at 12:00 Clopidogrel Bisulfate (plaVIX) 75 mg DAILY PO Last administered on 12/30/18 08:22; Admin Dose 75 MG; Start 12/24/18 at 12:00 Enoxaparin Sodium (Lovenox) 40 mg DAILY SC Last administered on 12/30/18at 08:47; Admin Dose 40 MG; Start 12/25/18 at 09:00 Albuterol/ Ipratropium (Duoneb) 3 ml Q6HWA RESP THERAPY HHN Last administered on 12/30/18 08:03; Admin Dose 3 ML; Start 12/24/18 at 14:00 Albuterol/ Ipratropium (Duoneb) 3 ml Q2H RESP THERAPY PRN HHN shortness of breath; Start 12/24/18 at 11:00 Budesonide (Pulmicort (Neb)) 0.5 mg BID RESP THERAPY HHN Last administered on 12/30/18at 10:11; Admin Dose 0.5 MG; Start 12/24/18 at 12:00 Insulin Glargine (Lantus) 45 units DAILY@0800 SC Last administered on 12/30/18at 08:47; Admin Dose 45 UNITS; Start 12/27/18 at 08:00 Miscellaneous Information 1 ea NOTE XX ; Start 12/26/18 at 12:30 Glucose (Glutose) 15 gm Q15M PRN PO DECREASED GLUCOSE; Start 12/26/18 at 12:30 Glucose (Glutose) 22.5 gm Q15M PRN PO DECREASED GLUCOSE; Start 12/26/18 at 12:30 Dextrose (D50w Syringe) 25 ml Q15M PRN IV DECREASED GLUCOSE; Start 12/26/18 at 12:30 Dextrose (D50w Syringe) 50 ml Q15M PRN IV DECREASED GLUCOSE; Start 12/26/18 at 12:30 Glucagon (Glucagen) 1 mg Q15M PRN IM DECREASED GLUCOSE; Start 12/26/18 at 12:30 Glucose (Glutose) 15 gm Q15M PRN BUCCAL DECREASED GLUCOSE; Start 12/26/18 at 12:30 Lisinopril (Zestril) 5 mg DAILY PO Last administered on 12/30/18at 08:22; Admin Dose 5 MG; Start 12/29/18 at 09:30 Insulin Aspart (Novolog Insulin Pen) 12 unit WITH MEALS SC Last administered on 12/30/18at 08:13; Admin Dose 12 UNIT; Start 12/29/18 at 17:55 Bumetanide (Bumex) 1 mg BID PO ; Start 12/30/18 at 21:00 CALI PRADO MD December 30, 2018 12:46
[2018-12-30] MEDS ORDERED: METO-429 PO (12:50)
[2018-12-30] MEDS ORDERED: NOVO3I SC (12:50)
[2018-12-30] MEDS ORDERED: ATOR-2 PO (12:50)
[2018-12-30] MEDS ORDERED: LISI-313 PO (12:50)
[2018-12-30] MEDS ORDERED: BUME1TAB PO (12:50)
--- NOTE | 2018-12-30 12:57 | PDOCDIS ---
Discharge Instructions DIAGNOSIS Discharge Diagnosis 1. NSTEMI s/p CABG x4, SVG to LAD, SVG to OM1 sequenced to OM2, SVG to PDA on 12/18/2018. 2. Acute respiratory failure- resolved 3. Lower extremity edema 4. Diabetes mellitus type 2, A1c 10.7 5. Peripheral artery disease 6. Hypertension. 7. Pulmonary hypertension. 8. E. coli ESBL in urine -resolved 9. Obesity. 10. Normocytic, normochromic anemia. 11. Acute renal insufficiency CONDITION [id number] Patient Condition: [id number] Stable HOME CARE INSTRUCTIONS: [id number] Diet Instructions: [id number] Low Fat /Cholesterol FOLLOW UP/APPOINTMENTS Follow-up Plan 1. Follow up with your primary care physician in 1- 2 weeks. You will need to have repeat labs in the next 3-5 days to monitor your kidney function while on your current medications. 2. Follow up with your Business Services Analyst in 1-2 weeks 3. Follow up with Dr. Rojas in 1 week 4. Take all medications as prescribed for your blood pressure and diabetes 5. Your insulin with meals was decreased to 12 units and continue on Lantus 45 units daily 6. If experiencing any concerning symptoms, please go to your nearest emergency department 7. It is important to follow a healthy diet and increase physical activity as tolerated with goal of weight loss 8. When seated or laying down, keep your feet elevated to prevent fluid build up REFERRALS Other Referrals Pedro Rojas MD Specialty Cardiothoracic Surgery Comments Office Address [id number] [facility] [address] [place] [id number] Office CALI PRADO MD December 30, 2018 12:57
--- NOTE | 2018-12-30 16:05 | CONS ---
Consult Date/Type/Reason Admit Date/Time Dec 15, 2018 at 16:16 Initial Consult Date 12/19/18 Type of Consult Pulmonary Requesting Provider: JUAN M VENEGAS Date/Time of Note DATE: 12/30/18 TIME: 16:04 Subjective Patient comfortable this morning no respiratory distress Objective Vital Signs Date Temp Pulse Resp B/P (MAP) Pulse Ox O2 O2 Flow FiO2 Time Delivery Rate 12/30/18 93 21 13:38 12/30/18 81 20 13:37 12/30/18 98.0 127/62 12:16 (83) 12/27/18 Room Air 16:50 12/27/18 8.0 07:51 Intake and Output 12/29/18 12/29/18 12/30/18 1515:00 23:00 07:00 IntakeIntake Total 50 ml 800 ml BalanceBalance 50 ml 800 ml Exam Well-nourished well-developed gentleman comfortable at rest Vent Setting Ventilator Support Mode: CPAP, PS Fraction of Inspired Oxygen pe: 21 Positive End Expiratory Pressu: 5.0 Results/Medications Result Diagram: 12/30/18 0559 12/30/18 0559 Results 24 hrs Laboratory Tests Test 12/29/18 17:41 12/29/18 20:28 12/30/18 05:59 12/30/18 07:44 Bedside Glucose 121 131 161 White Blood Count 10.5 Red Blood Count 3.00 L Hemoglobin 9.0 L Hematocrit 28.7 L Mean Corpuscular 95.7 Volume Mean Corpuscular 30.0 Hemoglobin Mean Corpuscular 31.4 L Hemoglobin Concent Red Cell 14.4 Distribution Width Platelet Count 655 H Mean Platelet Volume 9.2 Immature 0.700 H Granulocytes % Neutrophils % 71.7 Lymphocytes % 16.2 Monocytes % 8.2 Eosinophils % 2.2 Basophils % 1.0 Nucleated Red Blood 0.0 Cells % Immature 0.070 H Granulocytes # Neutrophils # 7.5 Lymphocytes # 1.7 Monocytes # 0.9 Eosinophils # 0.2 Basophils # 0.1 Nucleated Red Blood 0.0 Cells # Sodium Level 138 Potassium Level 3.9 Chloride Level 100 Carbon Dioxide Level 29 Anion Gap 9 Blood Urea Nitrogen 25 H Creatinine 1.36 H Est Glomerular 53 L Filtrat Rate mL/min Glucose Level 167 Calcium Level 9.0 Phosphorus Level 4.4 Magnesium Level 1.6 L Test 12/30/18 11:44 Bedside Glucose 113 Medications Current Medications Levalbuterol (Xopenex Neb) 1.25 mg Q4H RESP THERAPY PRN HHN sob Last administered on 12/18/18 08:41; Admin Dose 1.25 MG; Start 12/16/18 at 02:00 Albumin Human 250 ml @ 500 mls/hr PRN PRN IV CVP< 8, OR SBP<90 Last administered on 12/19/18 15:54; Admin Dose 500 MLS/HR; Start 12/18/18 at 20:30 Oxycodone/ Acetaminophen (Percocet (5/ 325)) 1 tab Q3H PRN PO PAIN LEVEL 1-5 Last administered on 12/30/18 13:07; Admin Dose 1 TAB; Start 12/18/18 at 20:30 Oxycodone/ Acetaminophen (Percocet (5/ 325)) 2 tab Q3H PRN PO PAIN LEVEL 6-10 Last administered on 12/27/18 22:14; Admin Dose 2 TAB; Start 12/18/18 at 20:30 Ondansetron HCl (Zofran Inj) 4 mg Q6H PRN IV NAUSEA AND/OR VOMITING; Start 12/18/18 at 20:30 Famotidine (Pepcid) 20 mg BID PO Last administered on 12/30/18 08:22; Admin Dose 20 MG; Start 12/18/18 at 21:00 Acetaminophen (Tylenol Tab) 650 mg Q3H PRN PO ELEVATED TEMPERATURE Last administered on 12/21/18 20:11; Admin Dose 650 MG; Start 12/18/18 at 20:30 Atorvastatin Calcium (Lipitor) 80 mg HS PO Last administered on 12/29/18 20:29; Admin Dose 80 MG; Start 12/18/18 at 21:00 Acetaminophen (Tylenol Liquid) 650 mg Q4H PRN NGT MILD PAIN(1-3)OR ELEVATED TEMP Last administered on 12/20/18 06:00; Admin Dose 650 MG; Start 12/20/18 at 06:00 Lorazepam (Ativan) 2 mg Q6H PRN IV Anxiety; Start 12/20/18 at 11:30 Hydralazine HCl (Apresoline) 10 mg Q6H PRN IV SBP>160; Start 12/20/18 at 11:30 Insulin Aspart (Novolog Insulin Pen) NOVOLOG *MILD* ALGORITHM WITH MEALS BEDTIME SC Last administered on 12/30/18 08:13; Admin Dose 1 UNIT; Start 12/20/18 at 13:00 Metoprolol Tartrate (Lopressor) 50 mg BID PO Last administered on 12/30/18 08:23; Admin Dose 50 MG; Start 12/20/18 at 14:30 Gabapentin (Neurontin) 300 mg TID PO Last administered on 12/30/18 13:06; Admin Dose 300 MG; Start 12/22/18 at 13:00 Linagliptin (Tradjenta) 5 mg DAILY PO Last administered on 12/30/18 08:22; Admin Dose 5 MG; Start 12/23/18 at 18:30 Metformin HCl (Glucophage) 1,000 mg BID WITH MEALS PO Last administered on 07:45; Admin Dose 1,000 MG; Start 12/23/18 at 18:30 Aspirin (Aspirin) 81 mg DAILY PO Last administered on 12/30/18 08:33; Admin Dose 81 MG; Start 12/24/18 at 12:00 Clopidogrel Bisulfate (plaVIX) 75 mg DAILY PO Last administered on 12/30/18 08:22; Admin Dose 75 MG; Start 12/24/18 at 12:00 Enoxaparin Sodium (Lovenox) 40 mg DAILY SC Last administered on 12/30/18 08:47; Admin Dose 40 MG; Start 12/25/18 at 09:00 Albuterol/ Ipratropium (Duoneb) 3 ml Q6HWA RESP THERAPY HHN Last administered on 12/30/18 13:35; Admin Dose 3 ML; Start 12/24/18 at 14:00 Albuterol/ Ipratropium (Duoneb) 3 ml Q2H RESP THERAPY PRN HHN shortness of breath; Start 12/24/18 at 11:00 Budesonide (Pulmicort (Neb)) 0.5 mg BID RESP THERAPY HHN Last administered on 12/30/18 10:11; Admin Dose 0.5 MG; Start 12/24/18 at 12:00 Insulin Glargine (Lantus) 45 units DAILY@0800 SC Last administered on 5/13/19at 08:47; Admin Dose 45 UNITS; Start 12/27/18 at 08:00 Miscellaneous Information 1 ea NOTE XX ; Start 12/26/18 at 12:30 Glucose (Glutose) 15 gm Q15M PRN PO DECREASED GLUCOSE; Start 12/26/18 at 12:30 Glucose (Glutose) 22.5 gm Q15M PRN PO DECREASED GLUCOSE; Start 12/26/18 at 12:30 Dextrose (D50w Syringe) 25 ml Q15M PRN IV DECREASED GLUCOSE; Start 12/26/18 at 12:30 Dextrose (D50w Syringe) 50 ml Q15M PRN IV DECREASED GLUCOSE; Start 12/26/18 at 12:30 Glucagon (Glucagen) 1 mg Q15M PRN IM DECREASED GLUCOSE; Start 12/26/18 at 12:30 Glucose (Glutose) 15 gm Q15M PRN BUCCAL DECREASED GLUCOSE; Start 12/26/18 at 12:30 Lisinopril (Zestril) 5 mg DAILY PO Last administered on 12/30/18at 08:22; Admin Dose 5 MG; Start 12/29/18 at 09:30 Insulin Aspart (Novolog Insulin Pen) 12 unit WITH MEALS SC Last administered on 12/30/18at 12:51; Admin Dose 12 UNIT; Start 12/29/18 at 17:55 Bumetanide (Bumex) 1 mg BID PO ; Start 12/30/18 at 21:00 Assessment/Plan Hospital Course (Demo Recall) IMP: 1. s/p Respiratory Failure 2. s/p CABG 3. s/p NSTEMI 4. s/p ANGEL 5. CHF 6. Leukocytosis/low grade fevers/possible pna RECS: 1. Mobilize OOB 2. ICS 3. De-esclate abx 4. PT/OT Agree with DC planning JOCELYN COPE MD, [facility] December 30, 2018 16:04
--- NOTE | 2018-12-30 18:48 | DS ---
Date/Time of Note Date/Time of Note DATE: 12/30/18 TIME: 18:43 Discharge Summary Admission/Discharge Info Admit Date/Time Dec 15, 2018 at 16:16 Discharge Date/Time December 30, 2018 at 16:25 Discharge Diagnosis 1. NSTEMI s/p CABG x4, SVG to LAD, SVG to OM1 sequenced to OM2, SVG to PDA on 12/18/2018. 2. Acute respiratory failure- resolved 3. Lower extremity edema 4. Diabetes mellitus type 2, A1c 10.7 5. Peripheral artery disease 6. Hypertension. 7. Pulmonary hypertension. 8. E. coli ESBL in urine -resolved 9. Obesity. 10. Normocytic, normochromic anemia. 11. Acute renal insufficiency Patient Condition: Stable Consults Cardiology- Dr. Werner CT surgery- Dr. Rojas Nephrology- Dr. Clement Pulmonology- Dr. Howell Procedures Procedure Date:12/17/2018 Volleyball Referee/surgeon:Reynaldo Werner MD. Procedures Performed: 1)Left heart catheterization with selective left and right coronary angiography. 2)iFR of LAD and Cx 3)IVUS of left main and LAD 4)Right femoral angiography with Perclose closure device DATE: 12/18/18 TIME: 20:18 Operative Report Preoperative Diagnosis CAD, nstemi Postoperative Diagnosis same Operation/Procedure Performed CABGx4, svg to lad, svg to om1 sequenced to om2, svg to pda Hx of Present Illness Patient is a male with a past medical history significant for alcohol abuse, coronary artery disease, history of CVA, insulin-dependent diabetes, hypertension, peripheral vascular disease and lower extremity neuropathy and swelling who presents to [facility] for worsening abdominal pain. Patient was recently discharged approximately 4 days ago from [facility] and where he was treated for UTI and alcoholism. According to patient and patient's son at bedside patient has not been drinking any alcohol since discharge however his abdominal pain which occasionally radiates to his left chest wall continues to get worse. Patient states that the abdominal pain has been going on for approximately 1 month as well as the chest pain that is intermittent. Patient states that he has also had worsening swelling in his lower extremity that has been going on for a couple months as well. Patient states that there are bruising on his abdomen that has been present for nasima roximately 3 to 4 days. Other than that patient states that he takes his medications. Patient currently denies significant shortness of breath, headache, dizziness. HPI is somewhat limited as I am uncertain if patient is accurately representing some of his symptoms. Patient appears to have a barbour positive review of systems which vary from very mild discomfort to extreme discomfort. Patient denies any red or black stool. Hospital Course Patient was admitted for evaluation of abdominal pain and NSTEMI workup. Cardiology was consulted and given elevated troponins and risk factors, was taken for cardiac catheterization with findings of three vessel disease. CT surgery was consulted and patient was taken for CABG. ID was consulted given history of ESBL UTI and continued on Meropenem and cleared for surgical intervention. Patient tolerated surgical intervention with anterior chest wound vac in place and was transferred to ICU following surgery. Pulmonology was consulted for ventilator management and nephrology was consulted after patient developed ANGEL. Patient was weaned from ventilator and wound vac discontinued during course of hospitalization. Patients insulin was adjusted for better glucose control and antiplatelets were restarted without any complications. Patient progressed well with physical therapy and was still requiring supplemental O2. CM was consulted for home health arrangements and home O2. Patient continued to improve during course of hospitalization and completed treatment for UTI. Adjustments were made to cardiac medications and was cleared for discharge by Cardiology. Patient was also cleared for d/c by Nephrology. Patient was discharged home in good condition with home health services. Home Meds Active Scripts Bumetanide* (Bumetanide*) 1 Mg Tablet, 1 MG PO BID for 30 Days, #60 TAB 1 Refill Prov:CALI PRADO MD 12/30/18 Metoprolol Tartrate* (Lopressor*) 50 Mg Tab, 50 MG PO BID for 30 Days, #60 TAB 1 Refill Prov:CALI PRADO MD 12/30/18 Lisinopril* (Lisinopril*) 5 Mg Tablet, 5 MG PO DAILY for 30 Days, #30 TAB 1 Refill Prov:CALI PRADO MD 12/30/18 Atorvastatin* (Atorvastatin*) 80 Mg Tablet, 80 MG PO HS for 30 Days, #30 TAB 1 Refill Prov:CALI PRADO MD 12/30/18 Insulin Aspart* (Novolog Insulin Pen*) 100 Unit/Ml Soln, 12 UNIT SC WITH MEALS for 30 Days, #1 VIAL 1 Refill Prov:CALI PRADO MD 12/30/18 Gabapentin* (Gabapentin*) 300 Mg Capsule, 300 MG PO TID, #90 CAP Prov:RADHA ROTHMAN 12/11/18 Omeprazole* (Omeprazole*) 20 Mg Capsule., 20 MG PO DAILY, #30 CAP Prov:RENU WHITE 08/22/18 Salmeterol Xinaf/Fluticasone* (Advair*) 250-50 Diskus Inhaler, 1 INH INH BID for 30 Days Prov:SANAZ DAVIS MD 04/15/17 Aspirin* (Aspirin* EC) 81 Mg Tablet., 81 MG PO DAILY for 30 Days Prov:SANAZ DAVIS MD 04/15/17 Clopidogrel Bisulfate (Clopidogrel) 75 Mg Tablet, 75 MG PO DAILY for 30 Days, TAB Prov:SANAZ DAVIS MD 04/15/17 Metformin Hcl (Glucophage) 500 Mg Tablet, 1000 MG PO BID WITH MEALS for 30 Days, #60 TAB Prov:BRANDON HERRERA NP 03/23/17 Linagliptin (TRADJENTA) 5 Mg Tablet, 5 MG PO DAILY for 30 Days, #30 TAB Prov:BRANDON HERRERA NP 03/23/17 Insulin Glargine* (Lantus*) 100 Unit/Ml Soln, 45 UNIT SC HS for 30 Days, #1 SYR Prov:BRANDON HERRERA NP 03/23/17 Reported Medications Ergocalciferol (Vitamin D2) (VITAMIN D2) 2,000 Unit Tablet, 2000 UNIT PO DAILY, TAB 03/15/17 Discontinued Scripts Ciprofloxacin Hcl* (Ciprofloxacin Hcl*) 250 Mg Tablet, 250 MG PO BID for 3 Days, #6 TAB Prov:RADHA ROTHMAN 12/11/18 Furosemide* (Furosemide*) 20 Mg Tablet, 20 MG PO DAILY for 3 Days, #3 TAB Prov:FOX JAVED 09/02/18 Levofloxacin* (Levaquin*) 500 Mg Tablet, 500 MG PO DAILY for 5 Days, #5 TAB Prov:RENU WHITE 08/22/18 Atorvastatin* (Atorvastatin*) 40 Mg Tablet, 40 MG PO HS for 30 Days, TAB Prov:SANAZ DAVIS MD 04/15/17 Amlodipine Besylate* (Norvasc*) 5 Mg Tablet, 2.5 MG PO DAILY for 30 Days, TAB Prov:SANAZ DAVIS MD 04/15/17 Follow-up Plan 1. Follow up with your primary care physician in 1- 2 weeks. You will need to have repeat labs in the next 3-5 days to monitor your kidney function while on your current medications. 2. 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 Follow up with Dr. Rojas in 1 week 4. Take all medications as prescribed for your blood pressure and diabetes 5. Your insulin with meals was decreased to 12 units and continue on Lantus 45 units daily 6. If experiencing any concerning symptoms, please go to your nearest emergency department 7. It is important to follow a healthy diet and increase physical activity as tolerated with goal of weight loss 8. When seated or laying down, keep your feet elevated to prevent fluid build up Primary Care Provider Not On Staff Doctor Time spent on discharge: > 30 minutes Pending Labs Laboratory Tests Test 12/29/18 20:28 12/30/18 05:59 12/30/18 07:44 12/30/18 11:44 Bedside 131 161 113 Glucose mg/dL (70-220) mg/dL (70-220) mg/dL (70-220) White Blood 10.5 Count 10^3/ul (4.8-1 0.8) Red Blood 3.00 Count 10^6/ul (4.70- 6.10) Hemoglobin 9.0 g/dl (14.0-18. 0) Hematocrit 28.7 % (42.0-52.0) Mean 95.7 Corpuscular fl (82.0-101.0 Volume ) Mean 30.0 Corpuscular pg (29.0-33.0) Hemoglobin Mean 31.4 Corpuscular g/dl (32.0-37. Hemoglobin Conc 0) ent Red Cell 14.4 Distribution % (11.5-14.5) Width Platelet Count 655 10^3/UL (140-4 15) Mean Platelet 9.2 Volume fl (7.4-10.4) Immature 0.700 Granulocytes % % (0.001-0.429 ) Neutrophils % 71.7 % (39.0-77.0) Lymphocytes % 16.2 % (15.0-51.0) Monocytes % 8.2 % (0.0-11.0) Eosinophils % 2.2 % (0.0-7.0) Basophils % 1.0 % (0.0-2.0) Nucleated Red 0.0 Blood Cells % /100WBC (0.0-0 .0) Immature 0.070 Granulocytes # 10^3/ul (0.0-0 .031) Neutrophils # 7.5 10^3/ul (1.6-7 .5) Lymphocytes # 1.7 10^3/ul (0.8-2 .9) Monocytes # 0.9 10^3/ul (0.3-0 .9) Eosinophils # 0.2 10^3/ul (0.0-0 .5) Basophils # 0.1 10^3/ul (0.0-0 .1) Nucleated Red 0.0 Blood Cells # 10^3/ul (0.0-0 .0) Sodium Level 138 mmol/L (135-14 4) Potassium 3.9 Level mmol/L (3.5-5. 1) Chloride Level 100 mmol/L (97-110 ) Carbon Dioxide 29 Level mmol/L (21-31) Anion Gap 9 (5-13) Blood Urea 25 Nitrogen mg/dl (7-20) Creatinine 1.36 mg/dl (0.61-1. 24) Est Glomerular 53 Filtrat mL/min (>60) Rate mL/min Glucose Level 167 mg/dl (70-220) Calcium Level 9.0 mg/dl (8.4-10. 2) Phosphorus 4.4 Level mg/dl (2.5-4.9 ) Magnesium 1.6 Level mg/dl (1.7-2.5 ) Test 12/30/18 16:02 Bedside 132 Glucose mg/dL (70-220) CALI PRADO MD December 30, 2018 18:48
== END 2018-12-30 16:25 | disposition home health service (06) | DRG 233 ==
LOC: E/R 11:14 → TEL 16:16 → ICU 12-18 19:58 → TEL 12-21 16:04
PROVIDERS: ADMIT Internal Medicine; ATTEND Internal Medicine
PROC: 4A023N7 Measurement of Cardiac Sampling and Pressure, Left Heart, Percutaneous Approach (ICD-10-PCS; 2018-12-17)
PROC: B2111ZZ Fluoroscopy of Multiple Coronary Arteries using Low Osmolar Contrast (ICD-10-PCS; 2018-12-17)
PROC: 30233K1 Transfusion of Nonautologous Frozen Plasma into Peripheral Vein, Percutaneous Approach (ICD-10-PCS; 2018-12-17)
PROC: 30233N1 Transfusion of Nonautologous Red Blood Cells into Peripheral Vein, Percutaneous Approach (ICD-10-PCS; 2018-12-17)
PROC: 30233R1 Transfusion of Nonautologous Platelets into Peripheral Vein, Percutaneous Approach (ICD-10-PCS; 2018-12-17)
PROC: 4A023N7 Measurement of Cardiac Sampling and Pressure, Left Heart, Percutaneous Approach (ICD-10-PCS; 2018-12-18)
PROC: 06BQ4ZZ Excision of Left Saphenous Vein, Percutaneous Endoscopic Approach (ICD-10-PCS; 2018-12-18)
PROC: 06BP4ZZ Excision of Right Saphenous Vein, Percutaneous Endoscopic Approach (ICD-10-PCS; 2018-12-18)
PROC: 4A033BC Measurement of Arterial Pressure, Coronary, Percutaneous Approach (ICD-10-PCS; 2018-12-18)
PROC: B241ZZ3 Ultrasonography of Multiple Coronary Arteries, Intravascular (ICD-10-PCS; 2018-12-18)
PROC: 5A1221Z Performance of Cardiac Output, Continuous (ICD-10-PCS; 2018-12-18)
PROC: 021309W Bypass Coronary Artery, Four or More Arteries from Aorta with Autologous Venous Tissue, Open Approach (ICD-10-PCS; principal; 2018-12-18 15:00)
DX: I21.4 Non-ST elevation (NSTEMI) myocardial infarction (principal); J96.01 Acute respiratory failure with hypoxia; I50.31 Acute diastolic (congestive) heart failure; N17.0 Acute kidney failure with tubular necrosis; J18.9 Pneumonia, unspecified organism; N39.0 Urinary tract infection, site not specified; N04.9 Nephrotic syndrome with unspecified morphologic changes; I13.0 Hypertensive heart and chronic kidney disease with heart failure and stage 1 through stage 4 chronic kidney disease, or unspecified chronic kidney disease; E87.0 Hyperosmolality and hypernatremia; E66.9 Obesity, unspecified; Z68.31 Body mass index [BMI] 31.0-31.9, adult; I25.10 Atherosclerotic heart disease of native coronary artery without angina pectoris; D63.8 Anemia in other chronic diseases classified elsewhere; F10.10 Alcohol abuse, uncomplicated; Z86.73 Personal history of transient ischemic attack (TIA), and cerebral infarction without residual deficits; E11.51 Type 2 diabetes mellitus with diabetic peripheral angiopathy without gangrene; E11.40 Type 2 diabetes mellitus with diabetic neuropathy, unspecified; Z91.14 Patient's other noncompliance with medication regimen; F41.9 Anxiety disorder, unspecified; I27.20 Pulmonary hypertension, unspecified; E78.5 Hyperlipidemia, unspecified; E11.22 Type 2 diabetes mellitus with diabetic chronic kidney disease; N18.9 Chronic kidney disease, unspecified; Y71.3 Surgical instruments, materials and cardiovascular devices (including sutures) associated with adverse incidents; R60.0 Localized edema; Z87.898 Personal history of other specified conditions; Z79.4 Long term (current) use of insulin; B96.20 Unspecified Escherichia coli [E. coli] as the cause of diseases classified elsewhere; E83.9 Disorder of mineral metabolism, unspecified
CPT/HCPCS: 36430; 36592; 36600; 70450; 71045; 74177; 80048; 80053; 80061; 80307; 81001; 82140; 82150; 82550; 82553; 82728; 82803; 82962; 83036; 83540; 83615; 83690; 83735; 83880; 84100; 84132; 84145; 84443; 84466; 84484; 85014; 85018; 85025; 85045; 85610; 85730; 86674; 86850; 86900; 86901; 86920; 87045; 87081; 87086; 92526; 92610; 92978; 93005; 93306; 93312; 93325; 93458; 93571; 93880; 93970; 94002; 94003; 94640; 94660; 94664; 94770; 96365; 96375; 97116; 97161; 97530; C1760; C1769; C1887; C1894; J0171; J0360; J0583; J0690; J0696; J1170; J1265; J1644; J1650; J1815; J1940; J2060; J2185; J2250; J2260; J2270; J2370; J2405; J2440; J2543; J2720; J3010; J3370; J3411; J3475; J3480; J7030; J7070; P9016; P9045; P9047; Q9967